=== PATIENT | female | born 1975 | race Caucasian/White ===

== ENCOUNTER 2023-05-03 15:50 | Emergency (ER) | payer BC, SELFPAY ==
[2023-05-03 15:54] VITALS: BP 182/92; PULSE 104; RESP 16; TEMP 37.1; O2SAT 96; BMI 35.7
--- NOTE | 2023-05-03 16:08 | US_ITS ---
The [address] [address] Patient Name: COLEEN ALVARADO MRN: [id number] date: 1975 Sex: F Assigned Patient Location: ER Current Patient Location: ER Accession/Order Number: [id number] Exam Date: 05/03/2023 16:30 Report Date: 05/03/2023 17:45 At the request of: LUBNA MANZANARES Procedure: US venous doppler LE BI Ultrasound venous duplex scan, bilateral lower extremities CLINICAL: Bilateral leg pain for 2 weeks. TECHNIQUE: Dominique-scale, color-flow, and Doppler examination of both legs was performed with and without provocative maneuvers. FINDINGS: Comparison: None. Sonographic examination of both lower extremity deep venous systems to include the common femoral veins, superficial femoral veins, and popliteal veins demonstrates normal compressibility, color-flow, phasic variation, and augmentation. The origins of the greater saphenous veins on both sides demonstrate normal compression, with normal color-flow at the origins of the proximal profunda femoris veins. There is normal compressibility of the posterior tibial, anterior tibial, and peroneal veins. Normal compression of the greater saphenous and small saphenous veins. US/US venous doppler LE BI IMPRESSION: 1. No sonographic evidence of deep venous thrombosis or superficial venous thrombus in either lower extremity. Electronically authenticated by: CAYETANO CAGE Date: 05/03/2023 17:45
--- NOTE | 2023-05-03 16:16 | ED.GENADUL1 ---
HPI - General Adult General Chief complaint: Extremity Problem, Nontraumatic Stated complaint: LOWER EXTREMITY PAIN Time Seen by Provider: 05/03/23 15:53 Source: patient Mode of arrival: walk-in Limitations: no limitations History of Present Illness HPI narrative: patient is a 47-year-old female who presents to the emergency department for the evaluation of bilateral lower extremity redness, pain. Patient states symptoms have been present for over a week, the redness and rash to the right lower extremity is improving, patient continues to have redness and rash to the left anterior tibia as well as pain in the bilateral anterior shins. She has no posterior calf pain. she denies fevers or vomiting. She is unsure of a possibility of . She takes hydrochlorothiazide at home but has not taken this medication. She states she has difficulty wearing shoes because it causes her legs to develop rashes and pain. She has not had any drainage, injury. No other medications taken prior to arrival. Related Data Home Medications Medication Instructions Recorded Confirmed atorvastatin 10 mg tablet 10 mg PO DAILY 05/03/23 05/03/23 citalopram 40 mg tablet 20 mg PO DAILY 05/03/23 05/03/23 dextroamphetamine-amphetamine 20 20 mg PO DAILY 05/03/23 05/03/23 mg tablet diltiazem HCl 120 mg 120 mg PO DAILY 05/03/23 05/03/23 capsule,extended release 24 hr hydrochlorothiazide 25 mg tablet 25 mg PO Q12H PRN edema 05/03/23 05/03/23 omeprazole 40 mg capsule,delayed 40 mg PO BID 05/03/23 05/03/23 release solriamfetol 150 mg tablet (Sunosi) 150 mg PO DAILY 05/03/23 05/03/23 valacyclovir 500 mg tablet 500 mg PO DAILY 05/03/23 05/03/23 Previous Rx's Medication Instructions Recorded clindamycin HCl 150 mg capsule 300 mg PO Q6H 10 days #80 caps 05/03/23 ketorolac 10 mg tablet 10 mg PO TID PRN pain #10 tabs 05/03/23 ondansetron 4 mg disintegrating 4 mg PO Q6H PRN nausea and 05/03/23 tablet vomiting #12 tabs tramadol 50 mg tablet 50 mg PO Q4H PRN pain #15 tabs 05/03/23 Allergies Allergy/AdvReac Type Severity Reaction Status Date / Time Sulfa (Sulfonamide AdvReac Mild Verified 05/03/23 16:02 Antibiotics) Review of Systems ROS Constitutional Denies: fever or chills Cardiovascular Denies: chest pain Respiratory Denies: shortness of breath Gastrointestinal Denies: nausea or vomiting Musculoskeletal Denies: back pain Integumentary/Breast Reports: rash, redness, skin pain, skin tenderness and skin swelling Neurological Denies: headache Allergic/Immunologic Denies: hives PFSH [facility] Social History Smoking 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 smoker Exam Narrative Exam Narrative: Gen.: Awake, alert, in no distress Head: Normocephalic, atraumatic ENT: Moist mucous membranes Respiratory: No respiratory distress Extremities: Moves extremities equally, bilateral lower extremities with nonpitting edema as well as erythematous petechial rash. Rash is minimal and scarce in the right lower extremity, anterior and medial aspect just proximal to the ankle. No circumferential redness or swelling of the lower extremities. Left anterior tibia with petechial erythematous rash, concentrated in the left mid anterior tibia with mild induration and warmth. No open wounds or drainage. Calves are soft and nontender Psych: Normal mood and affect Neuro: No focal neuro deficit Skin: Warm, dry, intact Constitutional Vital Signs, click to edit/add: Last Vital Signs Temp 98.8 F 05/03/23 15:54 Pulse 104 H 05/03/23 15:54 Resp 16 05/03/23 15:54 BP 182/92 H 05/03/23 15:54 Pulse Ox 96 05/03/23 15:54 O2 Del Method Room Air 05/03/23 15:54 Course Vital Signs Vital signs: Vital Signs Temperature 98.8 F 05/03/23 15:54 Pulse Rate 104 H 05/03/23 15:54 Respiratory Rate 16 05/03/23 15:54 Blood Pressure 182/92 H 05/03/23 15:54 Pulse Oximetry 96 05/03/23 15:54 Oxygen Delivery Method Room Air 05/03/23 15:54 Temperature 98.8 F 05/03/23 15:54 Pulse Rate 104 H 05/03/23 15:54 Respiratory Rate 16 05/03/23 15:54 Blood Pressure 182/92 H 05/03/23 15:54 Pulse Oximetry 96 05/03/23 15:54 Oxygen Delivery Method Room Air 05/03/23 15:54 Medical Decision Making MDM Narrative Medical decision making narrative: skin rash is consistent with possible vasculitis although the lab studies including inflammatory markers are unremarkable. bilateral lower extremity ultrasound with no evidence of deep vein thrombosis. The concentrated area of erythema and warmth of the left anterior tibia is concerning for cellulitis to the patient will be placed on anti-inflammatories in case she also has secondary vasculitis as well as clindamycin for antibiotic coverage is she is ALLERGIC to sulfa. She strongly encouraged to elevate the legs, she was given a short course of analgesics and nausea medication as needed. Patient has a history of hypertension and is prescribed hydrochlorothiazide although she admits she has not been taking it. She is strongly encouraged to take all of her regular medications, elevate the legs, finished antibiotics and follow-up with PCP, return to the Emergency Room if symptoms change or worsen. Medical Records Medical records reviewed: Yes I reviewed the patient's medical records Lab Data Lab results reviewed: Yes I reviewed the patient's lab results Labs: Lab Results 05/03/23 Range/Units 16:14 WBC 6.9 (4.0-11.0) 10^3/uL RBC 4.34 (4.20-5.40) 10^6/uL Hgb 14.4 (12.0-16.0) g/dL Hct 41.8 (36.0-48.0) % MCV 96.3 (81.0-99.0) fL MCH 33.2 (26.7-34.0) pg MCHC 34.4 (29.9-35.2) g/dL RDW 12.7 (11.0-15.0) % Plt Count 376 (150-450) 10^3/uL MPV 8.6 L (9.5-13.5) fL Neut % (Auto) 51.2 (43.0-75.0) % Lymph % (Auto) 33.5 (20.5-60.0) % [place] % (Auto) 9.7 (1.7-12.0) % Eos % (Auto) 3.0 (0.9-7.0) % Baso % (Auto) 2.2 H (0.2-2.0) % Neut # (Auto) 3.5 (1.4-6.5) 10^3/uL Lymph # (Auto) 2.3 (1.2-3.8) 10^3/uL [place] # (Auto) 0.7 (0.3-0.8) 10^3/uL Eos # (Auto) 0.2 (0.0-0.7) 10^3/uL Baso # (Auto) 0.2 H (0.0-0.1) 10^3/uL Abs Immat Gran (auto) 0.03 (0.00-0.03) 10^3/uL Imm/Tot Granulo (auto) 0.4 (0.0-0.5) % ESR 2 (<=20) mm/hr PT 10.9 (9.0-11.6) sec INR 1.03 Sodium 136 (136-145) mmol/L Potassium 3.3 L (3.5-5.1) mmol/L Chloride 107 (98-107) mmol/L Carbon Dioxide 31.3 (21.0-32.0) mmol/L Anion Gap 1.0 BUN 16.0 (7.0-18.0) mg/dL Creatinine 1.00 (0.55-1.02) mg/dL Est GFR ( Amer) >60 (>=60) Est GFR (Non-Af Amer) 60 (>=60) BUN/Creatinine Ratio 16.0 Glucose 104 (74-106) mg/dL Calcium 8.8 (8.5-10.1) mg/dL Total Bilirubin 0.4 (0.2-1.0) mg/dL AST 26 (15-37) U/L ALT 52 (14-59) U/L Alkaline Phosphatase 65 (46-116) U/L C-Reactive Protein <0.2 (<=1.0) mg/dL Total Protein 7.4 (6.4-8.2) g/dL Albumin 4.1 (3.4-5.0) g/dL Globulin 3.3 g/dL Albumin/Globulin Ratio 1.2 Serum HCG, Qual Negative (NEGATIVE) Imaging Data Venous US: Attestation: I have reviewed the pertinent imaging results. Radiologist's impression: no evidence of deep vein thrombosis in the bilateral lower extremities Discharge Plan Discharge Chief Complaint: Extremity Problem, Nontraumatic Clinical Impression: Cellulitis of left leg, Skin rash, Bilateral leg pain Patient Disposition: Home, Self-Care Time of Disposition Decision: 17:47 Condition: Good Prescriptions / Home Meds: New clindamycin HCl 150 mg capsule 300 mg PO Q6H 10 Days Qty: 80 0RF tramadol 50 mg tablet 50 mg PO Q4H PRN (Reason: pain) Qty: 15 0RF ketorolac 10 mg tablet 10 mg PO TID PRN (Reason: pain) Qty: 10 0RF ondansetron 4 mg tablet,disintegrating 4 mg PO Q6H PRN (Reason: nausea and vomiting) Qty: 12 0RF No Action atorvastatin 10 mg tablet 10 mg PO DAILY citalopram 40 mg tablet 20 mg PO DAILY dextroamphetamine-amphetamine 20 mg tablet 20 mg PO DAILY diltiazem HCl 120 mg capsule,extended release 24hr 120 mg PO DAILY hydrochlorothiazide 25 mg tablet 25 mg PO Q12H PRN (Reason: edema) omeprazole 40 mg capsule,delayed release(DR/EC) 40 mg PO BID Sunosi 150 mg tablet 150 mg PO DAILY valacyclovir 500 mg tablet 500 mg PO DAILY Instructions: Cellulitis (ED), Leg Pain (ED) Stand Alone Forms: Portal Instructions Referrals: DOMITILA HUYNH [Primary Care Provider] - 1 week
[2023-05-03 16:24] LABS: Basophils Absolute Auto 0.2 10^3/uL (0.0-0.1); Basophils Percent Auto 2.2 % (0.2-2.0); Eosinophils Absolute Auto 0.2 10^3/uL (0.0-0.7); Hematocrit 41.8 % (36.0-48.0); Hemoglobin 14.4 g/dL (12.0-16.0); Immature Granulocytes Abs Auto 0.03 10^3/uL (0.00-0.03); Immature Granulocytes Pct Auto 0.4 % (0.0-0.5); Lymphocytes Absolute Auto 2.3 10^3/uL (1.2-3.8); Lymphocytes Percent Auto 33.5 % (20.5-60.0); Mean Corpuscular HGB Conc 34.4 g/dL (29.9-35.2); Mean Corpuscular Hemoglobin 33.2 pg (26.7-34.0); Mean Corpuscular Volume 96.3 fL (81.0-99.0); Mean Platelet Volume 8.6 fL (9.5-13.5); Monocytes Absolute Auto 0.7 10^3/uL (0.3-0.8); Monocytes Percent Auto 9.7 % (1.7-12.0); Neutrophils Absolute Auto 3.5 10^3/uL (1.4-6.5); Neutrophils Percent Auto 51.2 % (43.0-75.0); Platelet Count 376 10^3/uL (150-450); Red Blood Count 4.34 10^6/uL (4.20-5.40); Red Cell Distribution Width 12.7 % (11.0-15.0); White Blood Count 6.9 10^3/uL (4.0-11.0)
[2023-05-03 16:35] LABS: HCG Qualitative NEGATIVE (NEGATIVE)
[2023-05-03 16:37] LABS: Alanine Aminotransferase 52 U/L (14-59); Albumin Globulin Ratio 1.2; Albumin Level 4.1 g/dL (3.4-5.0); Alkaline Phosphatase 65 U/L (46-116); Aspartate Amino Transferase 26 U/L (15-37); Bilirubin Total 0.4 mg/dL (0.2-1.0); C Reactive Protein <0.2 mg/dL (<=1.0); Calcium 8.8 mg/dL (8.5-10.1); Carbon Dioxide 31.3 mmol/L (21.0-32.0); Chloride 107 mmol/L (98-107); Estimated GFR (African America >60 (>=60); Estimated GFR (Non-African Ame 60 (>=60); Globulin 3.3 g/dL; Glucose 104 mg/dL (74-106); INR 1.03; Potassium 3.3 mmol/L (3.5-5.1); Prothrombin Time 10.9 sec (9.0-11.6); Sodium 136 mmol/L (136-145); Total Protein 7.4 g/dL (6.4-8.2)
[2023-05-03 16:40] LABS: Erythrocyte Sedimentation Rate 2 mm/hr (<=20)
[2023-05-03] MEDS: KETOROLAC TROMETHAMINE 30 MG/ML VIAL IVP (16:43)
== END 2023-05-03 17:54 | disposition home or self-care (01) ==
PROVIDERS: Physician Assistant; Emergency Provider Emergency Medicine Emergency Medical Services; PCP Internal Medicine
DX: L03.116 Cellulitis of left lower limb (principal); R21 Rash and other nonspecific skin eruption; M79.605 Pain in left leg; M79.604 Pain in right leg; Z79.899 Other long term (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 therapy
CPT/HCPCS: 36415; 80053; 84703; 85025; 85610; 85652; 86140; 93970; 96374; 99284

== ENCOUNTER 2023-07-04 02:31 | Emergency (ER) | payer BC, SELFPAY ==
[2023-07-04 02:35] VITALS: BP 132/82; PULSE 102; RESP 18; TEMP 36.8; O2SAT 96; BMI 36.1
--- NOTE | 2023-07-04 02:58 | ED.SKABFB1 ---
HPI - Skin/Abscess/Foreign Bdy General Chief complaint: Skin/Abscess/Foreign Body Stated complaint: LT LEG REDNESS Time Seen by Provider: 07/04/23 02:48 Source: patient Mode of arrival: walk-in Limitations: no limitations History of Present Illness HPI narrative: This 48-year-old female presents for evaluation of increasing red, swelling and pain at the medial aspect of her left lower leg. She is currently on Keflex after developing some redness in her lower leg earlier this week. She called her doctor who called in a perception for Keflex for her. She was not seen by her family physician. She has not had any fevers or chills. She states she woke up this morning with increasing redness and pain in the medial aspect of her lower leg. She also recently had cellulitis of the same leg and also had cellulitis of the right hand. She has had 3 bouts of cellulitis this past calendar year. She is not diabetic. She does have extremely dry skin and eczema on her feet. She states that the last time she had this she was on clindamycin which cleared it up quickly. She has no calf pain or swelling, denies any chest pain or shortness of breath. She took a tramadol prior to arrival and is now nauseated. Related Data Home Medications Medication Instructions Recorded Confirmed atorvastatin 10 mg tablet 10 mg PO DAILY 05/03/23 05/03/23 citalopram 40 mg tablet 20 mg PO DAILY 05/03/23 05/03/23 dextroamphetamine-amphetamine 20 20 mg PO DAILY 05/03/23 05/03/23 mg tablet diltiazem HCl 120 mg 120 mg PO DAILY 05/03/23 05/03/23 capsule,extended release 24 hr hydrochlorothiazide 25 mg tablet 25 mg PO Q12H PRN edema 05/03/23 05/03/23 omeprazole 40 mg capsule,delayed 40 mg PO BID 05/03/23 05/03/23 release solriamfetol 150 mg tablet (Sunosi) 150 mg PO DAILY 05/03/23 05/03/23 valacyclovir 500 mg tablet 500 mg PO DAILY 05/03/23 05/03/23 Previous Rx's Medication Instructions Recorded clindamycin HCl 150 mg capsule 300 mg PO Q6H 10 days #80 caps 05/03/23 ketorolac 10 mg tablet 10 mg PO TID PRN pain #10 tabs 05/03/23 ondansetron 4 mg disintegrating 4 mg PO Q6H PRN nausea and 05/03/23 tablet vomiting #12 tabs tramadol 50 mg tablet 50 mg PO Q4H PRN pain #15 tabs 05/03/23 Allergies Allergy/AdvReac Type Severity Reaction Status Date / Time Sulfa (Sulfonamide AdvReac Mild Verified 05/03/23 16:02 Antibiotics) Review of Systems ROS Status of ROS 10 or more systems reviewed and unremarkable except as noted in history and below PFSH PFS Social History Smoking 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 smoker Exam Narrative Exam Narrative: Nurses note and vital signs reviewed and patient is not hypoxic.She is moderately tachycardic with a pulse of 102 General: The patient appears well and in no apparent distress. Patient is resting comfortably on cart. Skin: There is an approximately 10 x 4 cm area of erythema and tenderness on the left medial lower leg. This does not include the ankle or foot. Head: Normocephalic, atraumatic Eye: Normal conjunctiva, no drainage, EOMI. PERRL Ears, Nose, Mouth, and Throat: oral mucosa is moist. Nares patent. Cardiovascular: Regular Rate and Rhythm Respiratory: Patient is in no distress, no accessory muscle use, lungs are clear to auscultation, no wheezing, rales or rhonchi Back: non-tender, no CVA tenderness bilaterally to percussion. GI: Normal bowel sounds, no tenderness to palpation, no masses appreciated. No rebound, guarding, or rigidity noted. Musculoskeletal:Left lower extremity cellulitis as described above, there is no calf swelling or tenderness, calf sizes are compared [id number] and are equal. Dorsalis pedis pulses are brisk and equal bilaterally. Patient has dried skin on all of her toes and small patches of eczema on the dorsal aspect of her foot. Neurological: A&O x4, normal speech Psychiatric: Cooperative Constitutional Vital Signs, click to edit/add: Last Vital Signs Temp 98.3 F 07/04/23 02:35 Pulse 102 H 07/04/23 02:35 Resp 18 07/04/23 02:35 BP 132/82 07/04/23 02:35 Pulse Ox 96 07/04/23 02:35 O2 Del Method Room Air 11/02/23 02:35 Course Vital Signs Vital signs: Vital Signs Temperature 98.3 F 07/04/23 02:35 Pulse Rate 102 H 07/04/23 02:35 Respiratory Rate 18 07/04/23 02:35 Blood Pressure 132/82 07/04/23 02:35 Pulse Oximetry 96 07/04/23 02:35 Oxygen Delivery Method Room Air 07/04/23 02:35 Temperature 98.3 F 07/04/23 02:35 Pulse Rate 102 H 07/04/23 02:35 Respiratory Rate 18 07/04/23 02:35 Blood Pressure 132/82 07/04/23 02:35 Pulse Oximetry 96 07/04/23 02:35 Oxygen Delivery Method Room Air 07/04/23 02:35 MDM - Skin/Abscess/Foreign Bdy MDM Narrative Medical decision making narrative: This 48-year-old female presents for evaluation of redness pain and swelling to the left lower extremity. She is currently on Keflex for cellulitis. This is the 3rd bout of cellulitis she has had this year. She is not having any fevers or chills. She has no body aches. She does have an approximately 4 x 10 cm area of redness and tenderness to the left medial lower leg. Not circumferential and does not involve the ankle or foot. She has been on clindamycin in the past with clinical improvement. She states she was having pain prior to arrival and took a tramadol which her nauseated. On arrival her vital signs are stable but she has not been tachycardic. An IV was placed and she is medicated with IV fluids, Toradol and Zofran and clindamycin. Routine labs are reviewed. She has a normal white count and hemoglobin. She has normal lactic acid and CRP. Electrolytes were normal with the exception of a mildly elevated glucose and a low potassium at 2.7 area she was given a dose of oral potassium. She states that she is supposed to take potassium supplementation but does not because it nauseates her. I agreed to give her a prescription for Zofran for nausea if she would take her potassium supplement and increase her oral intake of potassium containing foods. She is in agreement with this plan. She'll be discharged home with a note for work today and a prescription for Zofran, potassium and clindamycin to use for the next 10 days. Lab Data Labs: Lab Results 07/04/23 Range/Units 02:40 WBC 8.5 (4.0-11.0) 10^3/uL RBC 4.14 L (4.20-5.40) 10^6/uL Hgb 13.7 (12.0-16.0) g/dL Hct 39.6 (36.0-48.0) % MCV 95.7 (81.0-99.0) fL MCH 33.1 (26.7-34.0) pg MCHC 34.6 (29.9-35.2) g/dL RDW 12.8 (11.0-15.0) % Plt Count 350 (150-450) 10^3/uL MPV 9.1 L (9.5-13.5) fL Neut % (Auto) 58.4 (43.0-75.0) % Lymph % (Auto) 29.6 (20.5-60.0) % [place] % (Auto) 7.0 (1.7-12.0) % Eos % (Auto) 3.3 (0.9-7.0) % Baso % (Auto) 1.1 (0.2-2.0) % Neut # (Auto) 5.0 (1.4-6.5) 10^3/uL Lymph # (Auto) 2.5 (1.2-3.8) 10^3/uL [place] # (Auto) 0.6 (0.3-0.8) 10^3/uL Eos # (Auto) 0.3 (0.0-0.7) 10^3/uL Baso # (Auto) 0.1 (0.0-0.1) 10^3/uL Abs Immat Gran (auto) 0.05 H (0.00-0.03) 10^3/uL Imm/Tot Granulo (auto) 0.6 H (0.0-0.5) % ESR 2 (<=20) mm/hr Sodium 133 L (136-145) mmol/L Potassium 2.7 L* (3.5-5.1) mmol/L Chloride 98 (98-107) mmol/L Carbon Dioxide 32.0 (21.0-32.0) mmol/L Anion Gap 5.7 BUN 15.0 (7.0-18.0) mg/dL Creatinine 0.97 (0.55-1.02) mg/dL Est GFR ( Amer) >60 (>=60) Est GFR (Non-Af Amer) >60 (>=60) BUN/Creatinine Ratio 15.5 Glucose 162 H (74-106) mg/dL Lactate 0.9 (0.4-2.0) mmol/L Calcium 8.4 L (8.5-10.1) mg/dL Total Bilirubin 0.5 (0.2-1.0) mg/dL AST 21 (15-37) U/L ALT 58 (14-59) U/L Alkaline Phosphatase 50 (46-116) U/L C-Reactive Protein <1.0 (<=1.0) mg/dL Total Protein 6.9 (6.4-8.2) g/dL Albumin 3.7 (3.4-5.0) g/dL Globulin 3.2 g/dL Albumin/Globulin Ratio 1.2 Discharge Plan Discharge Chief Complaint: Skin/Abscess/Foreign Body Clinical Impression: Cellulitis of left leg, Hypokalemia Patient Disposition: Home, Self-Care Time of Disposition Decision: 04:16 Condition: Good Prescriptions / Home Meds: No Action atorvastatin 10 mg tablet 10 mg PO DAILY citalopram 40 mg tablet 20 mg PO DAILY dextroamphetamine-amphetamine 20 mg tablet 20 mg PO DAILY diltiazem HCl 120 mg capsule,extended release 24hr 120 mg PO DAILY hydrochlorothiazide 25 mg tablet 25 mg PO Q12H PRN (Reason: edema) omeprazole 40 mg capsule,delayed release(DR/EC) 40 mg PO BID Sunosi 150 mg tablet 150 mg PO DAILY valacyclovir 500 mg tablet 500 mg PO DAILY clindamycin HCl 150 mg capsule 300 mg PO Q6H 10 Days Qty: 80 0RF tramadol 50 mg tablet 50 mg PO Q4H PRN (Reason: pain) Qty: 15 0RF ketorolac 10 mg tablet 10 mg PO TID PRN (Reason: pain) Qty: 10 0RF ondansetron 4 mg tablet,disintegrating 4 mg PO Q6H PRN (Reason: nausea and vomiting) Qty: 12 0RF Instructions: Cellulitis (ED), Potassium Content of Foods List (ED), Hypokalemia (ED) Stand Alone Forms: Portal Instructions Referrals: DOMITILA HUYNH [Primary Care Provider] - 1 week
--- NOTE | 2023-07-04 02:59 | PC.NURSE ---
patient has hx of cellulitis. diagnosed with cellulitis on saturday over the phone from physician who called in keflex.patient has taken 3 doses but states it is not getting better. states she does not believe cellulitis has spread but states it is redder and tender to touch. left inside calf is reddened, hot to touch and tender. not especially swollen at this time. patient had left over tramadol from previous cellulitis and took one prior to coming to ED. patient drove herself here. RN educated on use of tramadol. able to ambulate unassisted with limp. afebrile at this time
[2023-07-04 03:15] LABS: Lactate/Lactic Acid 0.9 mmol/L (0.4-2.0)
[2023-07-04] MEDS: KETOROLAC TROMETHAMINE 30 MG/ML VIAL IVP (03:15)
[2023-07-04] MEDS: 0.9 % SODIUM CHLORIDE 1,000 ML 1000 ML IV (03:17)
[2023-07-04] MEDS: ONDANSETRON PF 4 MG/2 ML VIAL IV (03:18)
[2023-07-04 03:22] LABS: Basophils Absolute Auto 0.1 10^3/uL (0.0-0.1); Basophils Percent Auto 1.1 % (0.2-2.0); Eosinophils Absolute Auto 0.3 10^3/uL (0.0-0.7); Eosinophils Percent Auto 3.3 % (0.9-7.0); Hematocrit 39.6 % (36.0-48.0); Hemoglobin 13.7 g/dL (12.0-16.0); Immature Granulocytes Abs Auto 0.05 10^3/uL (0.00-0.03); Immature Granulocytes Pct Auto 0.6 % (0.0-0.5); Lymphocytes Absolute Auto 2.5 10^3/uL (1.2-3.8); Lymphocytes Percent Auto 29.6 % (20.5-60.0); Mean Corpuscular HGB Conc 34.6 g/dL (29.9-35.2); Mean Corpuscular Hemoglobin 33.1 pg (26.7-34.0); Mean Corpuscular Volume 95.7 fL (81.0-99.0); Mean Platelet Volume 9.1 fL (9.5-13.5); Monocytes Absolute Auto 0.6 10^3/uL (0.3-0.8); Neutrophils Percent Auto 58.4 % (43.0-75.0); Platelet Count 350 10^3/uL (150-450); Red Blood Count 4.14 10^6/uL (4.20-5.40); Red Cell Distribution Width 12.8 % (11.0-15.0); White Blood Count 8.5 10^3/uL (4.0-11.0)
[2023-07-04 03:24] LABS: Alanine Aminotransferase 58 U/L (14-59); Albumin Globulin Ratio 1.2; Albumin Level 3.7 g/dL (3.4-5.0); Alkaline Phosphatase 50 U/L (46-116); Anion Gap 5.7; Aspartate Amino Transferase 21 U/L (15-37); BUN Creatinine Ratio 15.5; Bilirubin Total 0.5 mg/dL (0.2-1.0); Calcium 8.4 mg/dL (8.5-10.1); Chloride 98 mmol/L (98-107); Estimated GFR (African America >60 (>=60); Estimated GFR (Non-African Ame >60 (>=60); Globulin 3.2 g/dL; Glucose 162 mg/dL (74-106); Sodium 133 mmol/L (136-145); Total Protein 6.9 g/dL (6.4-8.2)
[2023-07-04 03:27] LABS: C Reactive Protein <1.0 mg/dL (<=1.0); Potassium 2.7 mmol/L (3.5-5.1)
[2023-07-04 03:32] LABS: Erythrocyte Sedimentation Rate 2 mm/hr (<=20)
[2023-07-04] MEDS: POTASSIUM CHLORIDE 10 MEQ ER TABLET 40 MEQ PO (04:26)
[2023-07-04 04:42] VITALS: PULSE 85; RESP 16; O2SAT 96
== END 2023-07-04 04:45 | disposition home or self-care (01) ==
PROVIDERS: Emergency Provider Emergency Medicine; PCP Internal Medicine
DX: L03.116 Cellulitis of left lower limb (principal); E87.6 Hypokalemia; Z79.899 Other long term (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 therapy
CPT/HCPCS: 36415; 80053; 83605; 85025; 85652; 86140; 96365; 96375; 99284

== ENCOUNTER 2024-01-09 15:43 | Emergency (ER) | payer BC, SELFPAY ==
[2024-01-09 16:08] VITALS: BP 148/85; PULSE 90; TEMP 37.3; O2SAT 97; BMI 37.1
--- NOTE | 2024-01-09 16:26 | CT_ITS ---
The [address] [address] Patient Name: OCLEEN ALVARADO MRN: [id number] date: 1975 Sex: F Assigned Patient Location: ER Current Patient Location: ER Accession/Order Number: [id number] Exam Date: 01/09/2024 17:00 Report Date: 01/09/2024 18:32 At the request of: LUBNA MANZANARES Procedure: CT abdomen pelvis w con EXAM: CT abdomen pelvis w con HISTORY: right lower quad pain COMPARISON: None. TECHNIQUE: Multiple axial images of the abdomen and pelvis are obtained following the administration of IV contrast material. Coronal and sagittal reformatted sequences are submitted for review. FINDINGS: The lung bases appear clear. The heart size is normal. Patient is post cholecystectomy. Surgical clips are seen in the gallbladder fossa. The liver, spleen, pancreas and bilateral adrenal glands appear unremarkable. Bilateral kidneys demonstrate normal size, morphology and contrast enhancement. There is no evidence for hydronephrosis bilaterally. The urinary bladder is nondistended but otherwise appears unremarkable. Nonobstructive bowel pattern is seen. Normal-appearing appendix is visualized. No significant bowel wall thickening is seen. No significant free fluid or abnormal collection is seen in the abdomen and pelvis. The vascular structures demonstrate normal caliber and contrast enhancement. The abdominal wall and visualized soft tissues appear unremarkable. No acute or destructive osseous lesion is seen. CT/CT abdomen pelvis w con IMPRESSION: No acute abnormality. Normal-appearing appendix is visualized. Prior cholecystectomy. Electronically authenticated by: FREDA FRANCOIS Date: 01/09/2024 18:32
--- NOTE | 2024-01-09 16:28 | ED_ITS ---
HPI HPI - General Adult General Chief complaint: Abdominal Pain Stated complaint: Abdominal Pain Time Seen by Provider: 01/09/24 15:43 Source: patient Mode of arrival: walk-in Limitations: no limitations History of Present Illness HPI narrative: Patient is a 48-year-old female who presents to the emergency department for low abdominal pain. She states she has never had menstrual cramps previously in her life, she states she started her menstrual cycle this afternoon and developed severe cramping and pain in the suprapubic and right lower quadrant of the abdomen. She states the pain goes across the pelvis bilaterally. She has had no fevers, chills, nausea, vomiting, flank or back pain. No urinary symptoms. She has had a previous but no other abdominal surgeries. No medications taken prior to arrival. She states the vaginal bleeding is very Light, no clots. Related Data Home Medications ?Medication ?Instructions ?Recorded ?Confirmed atorvastatin 10 mg tablet 10 mg PO DAILY 05/03/23 01/09/24 citalopram 40 mg tablet 20 mg PO DAILY 05/03/23 01/09/24 dextroamphetamine-amphetamine 20 20 mg PO DAILY 05/03/23 01/09/24 mg tablet diltiazem HCl 120 mg 120 mg PO DAILY 05/03/23 01/09/24 capsule,extended release 24 hr hydrochlorothiazide 25 mg tablet 25 mg PO Q12H PRN edema 05/03/23 01/09/24 omeprazole 40 mg capsule,delayed 40 mg PO BID 05/03/23 01/09/24 release solriamfetol 150 mg tablet (Sunosi) 150 mg PO DAILY 05/03/23 01/09/24 valacyclovir 500 mg tablet 500 mg PO DAILY 05/03/23 01/09/24 Previous Rx's ?Medication ?Instructions ?Recorded dicyclomine 20 mg tablet 20 mg PO QID PRN abdominal pain 01/09/24 #12 tabs hydrocodone 5 mg-acetaminophen 325 1 tab PO Q6H PRN pain #8 tabs 01/09/24 mg tablet ketorolac 10 mg tablet 10 mg PO TID PRN pain #10 tabs 01/09/24 ondansetron 4 mg disintegrating 4 mg PO Q6H PRN nausea and 01/09/24 tablet vomiting #12 tabs Allergies Allergy/AdvReac Type Severity Reaction Status Date / Time Sulfa (Sulfonamide AdvReac Mild Verified 01/09/24 16:06 Antibiotics) Opioid HPI Opioid Management Most Recent Opioid Data: Last Pain Scale 7 01/09/24 19:48 Last ED Pain Assessment 01/09/24 17:32 Last MAR Pain Assessment 01/09/24 19:48 Review of Systems ROS Constitutional Denies: fever or chills Ears, nose, mouth, and throat Denies: throat pain or nasal congestion Respiratory Denies: shortness of breath Gastrointestinal Reports: abdominal pain; Denies: nausea, vomiting or diarrhea Musculoskeletal Denies: back pain Integumentary/Breast Denies: rash Neurological Denies: headache Hematologic/Lymphatic Denies: easy bruising or easy bleeding PFSH [facility] Social History Smoking 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 smoker Exam Narrative Exam Narrative: Gen.: Awake, alert, in no distress Head: Normocephalic, atraumatic ENT: Moist mucous membranes Respiratory: No respiratory distress, lungs clear bilaterally Cardio: Regular rate and rhythm Gastrointestinal: Abdomen is soft, Tender to palpation in the suprapubic abdomen with voluntary guarding of the right lower quadrant, Suprapubic abdomen and left lower quadrant. No pain out of proportion on exam Extremities: Moves extremities equally Psych: Normal mood and affect Neuro: No focal neuro deficit Skin: Warm, dry, intact Constitutional Vital Signs, click to edit/add: Last Vital Signs Temp 99.1 F 01/09/24 16:08 Pulse 90 01/09/24 16:08 Resp 18 01/09/24 19:47 BP 127/74 01/09/24 19:47 Pulse Ox 95 01/09/24 19:47 O2 Del Method Room Air 01/09/24 19:47 Course Vital Signs Vital signs: Vital Signs Temperature 99.1 F 01/09/24 16:08 Pulse Rate 90 01/09/24 16:08 Respiratory Rate 14 01/09/24 16:08 Blood Pressure 148/85 H 01/09/24 16:08 Pulse Oximetry 97 01/09/24 16:08 Oxygen Delivery Method Room Air 01/09/24 16:08 Temperature 99.1 F 01/09/24 16:08 Pulse Rate 90 01/09/24 16:08 Respiratory Rate 18 01/09/24 19:47 Blood Pressure 127/74 01/09/24 19:47 Pulse Oximetry 95 01/09/24 19:47 Oxygen Delivery Method Room Air 01/09/24 19:47 Medical Decision Making MDM Narrative Medical decision making narrative: Lab studies within normal limits, urine specimen is unremarkable and CT of the abdomen and pelvis with no evidence of acute process. Patient with no Pain out of proportion on exam. Ultrasound shows no evidence of acute process although the ovaries were not visualized due to overlying bowel gas. Additional pain medication was given for the patient with Levsin as a suspect bowel spasm may be part of her pain. She is discharged home with a short course of analgesics, Levsin, Toradol, Zofran. Follow-up with PCP and return to the ER if symptoms change or worsen Medical Records Medical records reviewed: Yes I reviewed the patient's medical records Lab Data Lab results reviewed: Yes I reviewed the patient's lab results Labs: Lab Results 01/09/24 01/09/24 Range/Units 16:35 18:45 WBC 10.7 (4.0-11.0) 10^3/uL RBC 4.12 L (4.20-5.40) 10^6/uL Hgb 13.5 (12.0-16.0) g/dL Hct 39.2 (36.0-48.0) % MCV 95.1 (81.0-99.0) fL MCH 32.8 (26.7-34.0) pg MCHC 34.4 (29.9-35.2) g/dL RDW 13.2 (11.0-15.0) % Plt Count 379 (150-450) 10^3/uL MPV 8.7 L (9.5-13.5) fL Neut % (Auto) 67.5 (43.0-75.0) % Lymph % (Auto) 22.9 (20.5-60.0) % [place] % (Auto) 5.1 (1.7-12.0) % Eos % (Auto) 3.5 (0.9-7.0) % Baso % (Auto) 0.7 (0.2-2.0) % Neut # (Auto) 7.2 H (1.4-6.5) 10^3/uL Lymph # (Auto) 2.5 (1.2-3.8) 10^3/uL [place] # (Auto) 0.5 (0.3-0.8) 10^3/uL Eos # (Auto) 0.4 (0.0-0.7) 10^3/uL Baso # (Auto) 0.1 (0.0-0.1) 10^3/uL Abs Immat Gran (auto) 0.03 (0.00-0.03) 10^3/uL Imm/Tot Granulo (auto) 0.3 (0.0-0.5) % Sodium 142 (136-145) mmol/L Potassium 2.8 L* (3.5-5.1) mmol/L Chloride 102 (98-107) mmol/L Carbon Dioxide 31.9 (21.0-32.0) mmol/L Anion Gap 10.9 BUN 14.0 (7.0-18.0) mg/dL Creatinine 0.85 (0.55-1.02) mg/dL Est GFR ( Amer) >60 (>=60) Est GFR (Non-Af Amer) >60 (>=60) BUN/Creatinine Ratio 16.5 Glucose 117 H (74-106) mg/dL Lactate 1.0 (0.4-2.0) mmol/L Calcium 9.1 (8.5-10.1) mg/dL Total Bilirubin 0.5 (0.2-1.0) mg/dL AST 24 (15-37) U/L ALT 47 (14-59) U/L Alkaline Phosphatase 42 L (46-116) U/L Total Protein 6.9 (6.4-8.2) g/dL Albumin 3.8 (3.4-5.0) g/dL Globulin 3.1 g/dL Albumin/Globulin Ratio 1.2 Serum HCG, Qual Negative (NEGATIVE) Urine Color Yellow (YELLOW) Urine Clarity Clear (CLEAR) Urine pH 5.5 (5.0-9.0) Ur Specific [place] <=1.005 A (1.005-1.025) Urine Protein Negative (NEG/TRACE) mg/dL Urine Glucose (UA) Negative (NEGATIVE) mg/dL Urine Ketones Negative (NEGATIVE) mg/dL Urine Occult Blood Negative (NEGATIVE) Urine Nitrite Negative (NEGATIVE) Urine Bilirubin Negative (NEGATIVE) Urine Urobilinogen 0.2 (0.2-1.0) EU/dL Ur Leukocyte Esterase Negative (NEGATIVE) Imaging Data CT scan - abdomen: Attestation: I have reviewed the pertinent imaging results. Radiologist's impression: ITS Impressions Abdomen/Pelvis CT 01/09/24 16:26 IMPRESSION: No acute abnormality. Normal-appearing appendix is visualized. Prior cholecystectomy. Electronically authenticated by: FREDA FRANCOIS Date: 01/09/2024 18:32 Transvaginal US 01/09/24 18:35 IMPRESSION: Nonvisualization of the bilateral ovaries due to overlying bowel gas. Unremarkable appearance of the uterus. Electronically authenticated by: LELO HAGER Date: 01/09/2024 20:14 Discharge Plan Discharge Stand Alone Forms: Portal Instructions Chief Complaint: Abdominal Pain Clinical Impression: Abdominal pain Patient Disposition: Home, Self-Care Time of Disposition Decision: 20:29 Condition: Good Prescriptions / Home Meds: New hydrocodone-acetaminophen 5-325 mg tablet 1 tab PO Q6H PRN (Reason: pain) Qty: 8 0RF ketorolac 10 mg tablet 10 mg PO TID PRN (Reason: pain) Qty: 10 0RF dicyclomine 20 mg tablet 20 mg PO QID PRN (Reason: abdominal pain) Qty: 12 0RF ondansetron 4 mg tablet,disintegrating 4 mg PO Q6H PRN (Reason: nausea and vomiting) Qty: 12 0RF No Action atorvastatin 10 mg tablet 10 mg PO DAILY citalopram 40 mg tablet 20 mg PO DAILY dextroamphetamine-amphetamine 20 mg tablet 20 mg PO DAILY diltiazem HCl 120 mg capsule,extended release 24hr 120 mg PO DAILY hydrochlorothiazide 25 mg tablet 25 mg PO Q12H PRN (Reason: edema) omeprazole 40 mg capsule,delayed release(DR/EC) 40 mg PO BID Sunosi 150 mg tablet 150 mg PO DAILY valacyclovir 500 mg tablet 500 mg PO DAILY Print Language: Khmer Instructions: Acute Abdominal Pain (ED) Referrals: DOMITILA HUYNH [Primary Care Provider] - 1 week Discharge Date/Time: 01/09/24 21:02
--- NOTE | 2024-01-09 16:42 | PC.NURSE ---
Patient reports having lower abdominal pain, reports starting period today, but reports period and pain is not normal for her cycle.
[2024-01-09 16:47] LABS: Basophils Absolute Auto 0.1 10^3/uL (0.0-0.1); Basophils Percent Auto 0.7 % (0.2-2.0); Eosinophils Absolute Auto 0.4 10^3/uL (0.0-0.7); Eosinophils Percent Auto 3.5 % (0.9-7.0); Hematocrit 39.2 % (36.0-48.0); Hemoglobin 13.5 g/dL (12.0-16.0); Immature Granulocytes Abs Auto 0.03 10^3/uL (0.00-0.03); Immature Granulocytes Pct Auto 0.3 % (0.0-0.5); Lymphocytes Absolute Auto 2.5 10^3/uL (1.2-3.8); Lymphocytes Percent Auto 22.9 % (20.5-60.0); Mean Corpuscular HGB Conc 34.4 g/dL (29.9-35.2); Mean Corpuscular Hemoglobin 32.8 pg (26.7-34.0); Mean Corpuscular Volume 95.1 fL (81.0-99.0); Mean Platelet Volume 8.7 fL (9.5-13.5); Monocytes Absolute Auto 0.5 10^3/uL (0.3-0.8); Monocytes Percent Auto 5.1 % (1.7-12.0); Neutrophils Absolute Auto 7.2 10^3/uL (1.4-6.5); Neutrophils Percent Auto 67.5 % (43.0-75.0); Platelet Count 379 10^3/uL (150-450); Red Blood Count 4.12 10^6/uL (4.20-5.40); Red Cell Distribution Width 13.2 % (11.0-15.0); White Blood Count 10.7 10^3/uL (4.0-11.0)
[2024-01-09] MEDS: 0.9 % SODIUM CHLORIDE 1,000 ML 999 ML IV (16:52)
[2024-01-09] MEDS: HYDROMORPHONE HCL 1 MG/ML CARTRIDGE 0.5 MG IVP ×2 (16:52→19:48)
[2024-01-09] MEDS: KETOROLAC TROMETHAMINE 30 MG/ML VIAL IVP (16:52)
[2024-01-09] MEDS: ONDANSETRON PF 4 MG/2 ML VIAL IV (16:53)
[2024-01-09 17:00] LABS: HCG Qualitative NEGATIVE (NEGATIVE)
[2024-01-09 17:04] LABS: Alanine Aminotransferase 47 U/L (14-59); Albumin Globulin Ratio 1.2; Albumin Level 3.8 g/dL (3.4-5.0); Alkaline Phosphatase 42 U/L (46-116); Anion Gap 10.9; Aspartate Amino Transferase 24 U/L (15-37); BUN Creatinine Ratio 16.5; Bilirubin Total 0.5 mg/dL (0.2-1.0); Calcium 9.1 mg/dL (8.5-10.1); Carbon Dioxide 31.9 mmol/L (21.0-32.0); Chloride 102 mmol/L (98-107); Estimated GFR (African America >60 (>=60); Estimated GFR (Non-African Ame >60 (>=60); Globulin 3.1 g/dL; Glucose 117 mg/dL (74-106); Sodium 142 mmol/L (136-145); Total Protein 6.9 g/dL (6.4-8.2)
[2024-01-09 17:05] LABS: Potassium 2.8 mmol/L (3.5-5.1)
--- NOTE | 2024-01-09 18:35 | US_ITS ---
The [address] [address] Patient Name: COLEEN ALVARADO MRN: [id number] date: 1975 Sex: F Assigned Patient Location: ER Current Patient Location: ER Accession/Order Number: [id number] Exam Date: 01/09/2024 18:55 Report Date: 01/09/2024 20:14 At the request of: LUBNA MANZANARES Procedure: US pelvis transvaginal EXAM: US pelvis transvaginal HISTORY: EXAM: US pelvis transvaginal CLINICAL HISTORY: severe pelvic pain, r/o ovarian torsion COMPARISON: CT abdomen and pelvis 01/09/2024 TECHNIQUE: Transvaginal real-time grayscale and color Doppler imaging with pulsed duplex sonography was performed. FINDINGS: UTERUS: Measures 8 centimeters in length and is anteverted. A nabothian cyst is noted. ENDOMETRIUM: Not thickened. Measures 0.22 centimeters thickness OVARIES: Not visualized due to overlying bowel gas. MISCELLANEOUS: No significant free fluid. US/US pelvis transvaginal IMPRESSION: Nonvisualization of the bilateral ovaries due to overlying bowel gas. Unremarkable appearance of the uterus. Electronically authenticated by: LELO HAGER Date: 01/09/2024 20:14
[2024-01-09] MEDS: POTASSIUM CHLORIDE 10 MEQ ER TABLET 40 MEQ PO (18:49)
[2024-01-09 19:47] VITALS: BP 127/74; O2SAT 95
[2024-01-09 19:55] LABS: Bilirubin Urine NEGATIVE (NEGATIVE); Blood Urine NEGATIVE (NEGATIVE); Clarity Urine CLEAR (CLEAR); Color Urine YELLOW (YELLOW); Glucose Urine UA NEGATIVE (NEGATIVE); Ketones Urine NEGATIVE (NEGATIVE); Leukocyte Esterase Urine NEGATIVE (NEGATIVE); Nitrite Urine NEGATIVE (NEGATIVE); Protein Urine NEGATIVE (NEG/TRACE); Specific Gravity Urine <=1.005 (1.005-1.025); Urobilinogen Urine 0.2 EU/dL (0.2-1.0); pH Urine 5.5 (5.0-9.0)
[2024-01-09 19:56] LABS: Urine Microscopic Indicated NO
[2024-01-09] MEDS: HYOSCYAMINE SULFATE 0.125 MG TAB.SUBL SL (20:42)
[2024-01-09] MEDS: DICYCLOMINE HCL 10 MG CAPSULE 20 MG PO (20:43)
[2024-01-09] MEDS: OXYCODONE HCL/ACETAMINOPHEN 5MG/325MG 2 TAB PO (20:43)
== END 2024-01-09 21:02 | disposition home or self-care (01) ==
PROVIDERS: Physician Assistant; Emergency Provider Emergency Medicine; PCP Internal Medicine
DX: R10.30 Lower abdominal pain, unspecified (principal); Z90.49 Acquired absence of other specified parts of digestive tract
CPT/HCPCS: 36415; 74177; 76830; 80053; 81003; 83605; 84703; 85025; 96374; 96375; 96376; 99285; J1170; Q9967

== ENCOUNTER 2024-05-30 20:17 | Observation (INO) | payer BC, SELFPAY ==
[2024-05-30] VITALS (19 sets, daily range): BP systolic 116–138; BP diastolic 75–89; PULSE 81–94; TEMP 36.7–36.8; O2SAT 93–95; BMI 36.1; BMI 37.8
--- OUTSIDE RECORDS SUMMARY | 2024-05-30 20:43 | XMS_ITS | CCD ---
Author Organization [facility] Care Team Providers Care Band Cutter Name Role Phone UNKNOWN, PROVIDER Unavailable Unavailable ELVER MENDENHALL Unavailable Unavailable ELVER MENDENHALL Primary Care Unavailable NAOMI MOROCHO Admitting Unavailable BAILEE, NAOMI Vasques Attending Unavailable JANE NICOLAS V Consulting Unavailable NAOMI MOROCHO Consulting Unavailable NICHOLAS BOLTON Consulting Unavailable ELVER MENDENHALL Primary Care Unavailable NICHOLAS BOLTON Admitting Unavailable NICHOLAS BOLTON Attending Unavailable JOHN MENDEZ Consulting Unavailable NICHOLAS BOLTON Consulting Unavailable GITA GARCIA Admitting Unavailable GITA GARCIA Attending Unavailable ELVER MENDENHALL Primary Care Unavailable GITA GARCIA Consulting Unavailable ELVER MENDENHALL Primary Care Unavailable LESLYE DOSS Consulting Unavailable LESLYE DOSS Admitting Unavailable PURA, LESLYE Warner Attending Unavailable EBEN PROCTOR Consulting Unavailable LUBNA MANZANARES Consulting Unavailable ELVER MENDENHALL Primary Care Unavailable LESLYE DOSS Referring Unavailable IAN KU Attending Unavailable EBRAIAN LLANES Admitting Unavailable [place] Procedure Practitioner Unavailab IAN [place] Surgeon Unavailable Jane Waller Unavailable Ciera Mcwilliams Unavailable Tracy Oliver Unavailable OSCAR Mendenhall Primary Care Provider MD Jane Waller. Attending Provider OSCAR Mendenhall Primary Care Provider MD Jane Waller Attending Provider [phone] Efraín Patel Unavailable OSCAR Mendenhall Primary Care Provider [phone] MD Jane Waller. Attending Provider Elver Mendenhall MD Primary Care Provider GITA GARCIA Attending Unavailable FELTER, LUBNA A Attending Unavailable SEB KITCHEN Attending Unavailable SEB KITCHEN Referring Unavailable GITA GARCIA Attending Unavailable GITA GARCIA Attending Unavailable ISADORA BARNARD Attending Unavailable OSCAR Mendenhall Primary Care Provider [phone] MD Jane Waller Attending Provider [phone] Jane Waller Admitting Unavailable Jane Waller Attending Unavailable Jane Waller Admitting Unavailable Jane Waller Attending Unavailable Elver Mendenhall Primary Care Unavailable Jane Waller Admitting Unavailable Jane Waller Attending Unavailable Elver Mendenhall Primary Care Unavailable Allergies Allergy Classification Reported Allergen(s) Allergy Type Date of Onset Reaction(s) Facility (2 sources) Morphine Drug Allergy 9 [facility] Rep[facility] (1 source) Sulfamethoxazole / Trimethoprim Drug Allergy 6 [facility] (1 source) Sulfonamides (Antibiotic) Drug allergy (disorder) 9 [facility] Repository (16 sources) Clarithromycin; Translations: [clarithromycin] Drug Allergy 1 GI intolerance [facility] (11 sources) Sulfanilamide; Translations: [sulfanilamide] Drug Allergy 1 Unknown Reaction, Anaphylaxis [facility] (5 sources) Sulfonamides (Antibiotic) Drug Allergy 3 Unknown [facility] Medications Current Medications Medication Drug Class(es) Dates Sig (Normalized) Sig (Original) Advair Diskus 500-50 MCG/DOSE (8 sources) take 1 puff(s) by inhalation twice daily Advair Diskus 500-50 MCG/DOSE 1 puff Inhalation Twice a day for 30 days Active take 1 puff(s) by inhalation twi ce daily Advair Diskus 500-50 MCG/DOSE 1 puff Inhalation Twice a day for 90 day(s) Active [id number] 200 actuat albuterol 0.09 mg/actuat metered dose inhaler (20 sources) beta2-Adrenergic Agonist Start: 11-18-2020 take 1 puff(s) by inhalation every four to six hours Albuterol Sulfate (Proair Hfa) 90 mcg/actuation Hfa Aerosol Inhaler Active 2 PUFF INHALATION EVERY 4-6 HOURS November 18, 2020 12:00am albuterol HFA 90 mcg/act inhaler take 2 puff(s) by in halation every four hours as needed ProAir HFA 108 (90 Base) MCG/ACT 2 puffs as needed Inhalation every 4 hrs for 30 days Active take 3 mL by inhalat ion four times daily as needed Albuterol 0.083% 3 ml Inhalation qid prn dx: J45.20 asthma Active amphetamine aspartate 5 mg / amphetamine sulfate 5 mg / dextroamphetamine saccharate 5 mg / dextroamphetamine sulfate 5 mg oral tablet (20 sources) Central Nervous System Stimulant Start: 01-30-2024 End: 02-04-2024 take 1 tablet by mouth once daily Dextroamphetamine-Amphetamine (Adderall) 20 mg tablet Active 20 MG PO Daily 90 90 February 04, 2024 Start: 06-01-2021 take 1 capsule by mo [facility] every twenty-four hours Adderall XR 20 MG 1 capsule in the morning Orally Once a day for 90 days Narcolepsy do not fill until 02/25/23 Jun, Active Start: 03-13-2021 End: 01-30-2024 take 1 tablet by mouth twice daily Dextroamphetamine-Amphetamine (Adderall) 20 mg Tablet Discontinued 20 MG PO Twice daily March 13, 2021 12:00am January 30, 2024 9:53am Start: 12-20-2020 take 1 tablet by mouth once da jefry Adderall 20 MG 1 tablet Orally Once a day at noon for 90 days Narcolepsy do not fill until 02/25/23 Oct, Active atorvastatin 10 mg oral tablet (20 sources) HMG-CoA Reductase Inhibitor Start: 11-18-2020 take 10 mg by mouth once daily Atorvastatin Active 10 MG PO Daily November 18, 2020 12:00am BIPAP Machine (20 sources) BIPAP Machine Active cetirizine hydrochloride 10 mg oral tablet (20 sources) Histamine-1 Receptor Antagonist Start: 11-18-2020 take 10 mg by mouth once daily Cetirizine Active 10 MG PO Daily November 18, 2020 12:00am take 1 capsule by mo ut every twenty-four hours ZyrTEC Allergy 10 MG 1 tab(s) Orally Daily Active cholecalciferol 0.05 mg oral capsule (5 sources) Vitamin D cholecalciferol (Vitamin D-3) 50 MCG (1999 UT) capsule citalopram 40 mg oral tablet (20 sources) Serotonin Reuptake Inhibitor Start: 02-21-20 take 0.5 tablet by mouth in the morning citalopram (CeleXA) 40 MG tablet Indications: Obsessive-compulsive disorder, unspecified type (CMS/HCC) Take 0.5 tablets (20 mg) by mouth in the morning. 45 tablet 3 02/20/2023 Active Start: 11-18-2020 End: 01-30-2024 take 0.5 tablet by mouth once daily Citalopram Active 20 MG PO As Directed January 30, 2024 9:52am 1/2 tablet orally once a day take 1 tablet by willow th every twenty-four hours CeleXA 20 MG 1 tablet Orally Daily Active 24 hr dilTIAZem hydrochloride 120 mg extended release oral capsule (20 sources) Calcium Channel Konstantin Start: 02-28-2023 take 1 capsule by mouth every twenty-four hours in the morning dilTIAZem CD (Cardizem CD) 120 MG 24 hr capsule Indications: Tachycardia Take 1 capsule (120 mg) by mouth in the morning. 100 capsule 3 02/28/2023 Active Start: 11-18-2020 take 120 mg by mouth once demario y Diltiazem Hcl Active 120 MG PO Daily November 18, 2020 12:00am doxycycline monohydrate 100 mg oral capsule (7 sources) Tetracycline-class Drug Start: 08-19-2021 take 1 capsule by mouth every twelve hours Doxycycline Monohydrate 100 MG 1 capsule Orally every 12 hrs for 7 days Aug, Active eletriptan 40 mg oral tablet (15 sources) Serotonin-1b and Serotonin-1d Receptor Agonist Start: 11-18-2020 take 1 tablet by mouth every two hours, then take 2 tablets by mouth every twenty-four hours Eletriptan (Relpax) 40 mg Tablet Active 40 MG PO As Directed November 18, 2020 12:00am take 1 tablet if headache returns the dose may be repeated after 2 hours but no more than 2 doses should be given within 24 hour period fluconazole 150 mg oral tablet (12 sources) Azole Antifungal Start: 12-25-2023 take 150 mg by mouth once Fluconazole Active 150 MG PO Once December 25, 2023 12:00am Start: 08-19-2021 Diflucan 150 M G 1 tablet Orally if needed after antibiotics completed for 1 days Aug, Active fluticasone propionate 0.05 mg/actuat metered dose nasal spray (20 sources) Corticosteroid Start: 10-28-2022 take 1-2 spray(s) nasal route once daily fluticasone (Flonase) 50 MCG/ACT nasal spray SPRAY 1 TO 2 SPRAYS IN EACH NOSTRIL ONCE DAILY 0 10/28/2022 Active Start: 11-18-2020 Fluticasone Pr opionate (Flonase) 50 mcg/actuation [place],Suspension Active 1 SPRAY INTRANASAL Daily November 18, 2020 12:00am take 1-2 spray(s) na pankaj route once daily Fluticasone Propionate 50 MCG/ACT 1-2 spray in each nostril Nasally Once a day for 30 day(s) Active 60 actuat fluticasone propionate 0.5 mg/actuat / salmeterol 0.05 mg/actuat dry powder inhaler (20 sources) Corticosteroid, beta2-Adrenergic Agonist Start: 03-13-2023 take 1 puff(s) by inhalation twice daily Advair Diskus 500-50 MCG/ACT aerosol powder INHALE 1 PUFF INTO THE LUNGS TWICE A DAY FOR 30 DAYS 0 03/13/2023 Active Start: 11-18-2020 Fluticasone Pr opion-Salmeterol (Advair Diskus) 500-50 mcg/dose blister with device Active 1 EACH INHALATION Twice daily November 17, 2020 11:00pm Start: 11-18-2020 Fluticasone Pr opion-Salmeterol (Advair Diskus) 500-50 mcg/dose blister with device Active 1 EACH INHALATION Twice daily November 18, 2020 12:00am hydroCHLOROthiazide 25 mg oral tablet (20 sources) Thiazide Diuretic Start: 12-25-2023 take 25 mg by mouth once daily Hydrochlorothiazide Active 25 MG PO Daily December 25, 2023 12:00am Start: 11-18-2020 End: 10-04-2023 take 25 mg by mouth once daily Hydrochlorothiazide Discontinued 25 MG PO Daily November 18, 2020 12:00am November 18, 2020 2:29pm methylPREDNISolone 4 mg oral tablet (7 sources) Corticosteroid Start: 08-19-2021 methylPREDNISolone 4 MG as directed Orally Once a day for 6 days Aug, Active minocycline 100 mg oral capsule (5 sources) Tetracycline-class Drug Start: 09-17-2023 take 1 capsule by mouth twice daily minocycline 100 MG capsule Indications: Perioral dermatitis Take 1 capsule, by mouth, bid, 30 days 60 capsule 0 09/17/2023 Active omeprazole 40 mg delayed release oral capsule (20 sources) Proton Pump Inhibitor Start: 09-26-2023 take 1 capsule by mouth twice daily omeprazole (PriLOSEC) [address] capsule Indications: Gastroesophageal reflux disease without esophagitis TAKE 1 CAPSULE BY MOUTH TWICE DAILY 180 capsule 3 09/26/2023 Active Start: 11-18-2020 take 40 mg by mouth once daily Omeprazole Active 40 MG PO Daily November 18, 2020 12:00am microencapsulated potassium chloride 10 meq extended release oral tablet (5 sources) Start: 09-24-2022 KLOR-CON 10 ME Q ER tablet 1 (one) time each day at the same time. 0 09/24/2022 Active ProAir HFA 108 (90 Base) MCG/ACT (12 sources) take 2 puff(s) by inhalation every four hours as needed ProAir HFA 108 (90 Base) MCG/ACT 2 puffs as needed Inhalation every 4 hrs for 30 days Active solriamfetol 150 mg oral tablet (17 sources) Start: 02-06-2023 Sunosi 150 MG tablet Start: 02-06-2023 take 1 tablet by willow every twenty-four hours Sunosi 75 MG 1 tablet in the morning Orally Once a day for 15 days Jan, Active Solriamfetol (Sunosi) 150 mg tablet (7 sources) Start: 03-11-2024 take 1 tablet by mouth once daily Solriamfetol (Sunosi) 150 mg tablet Active 150 MG PO Daily March 11, 2024 1:15pm Start: 12-25-2023 End: 03-11-2024 take 1 tablet by mouth once daily Solriamfetol (Sunosi) 150 mg tablet Discontinued 150 MG PO Daily December 25, 2023 12:00am March 11, 2024 1:15pm Start: 12-25-2023 take 1 tablet by willow th once daily Solriamfetol (Sunosi) 150 mg tablet Active 150 MG PO Daily December 25, 2023 12:00am Completed/Discontinued Medications Medication Drug Class(es) Dates Sig (Normalized) Sig (Original) cefTRIAXone (18 sources) Cephalosporin Antibacterial Start: 03-10-2016 Rocephin 500 mg Mar, 500 mg clindamycin 300 mg oral capsule (10 sources) Lincosamide Antibacterial Start: 12-25-2023 End: 01-09-2024 take 300 mg by mouth three times daily Clindamycin Hcl Discontinued 300 MG PO Three times daily 30 December 25, 2023 12:00am January 09, 2024 3:18pm Start: 04-29-2023 clindamycin (C lindagel) 1 % gel Indications: Perioral dermatitis Apply to face BID 60 g 1 04/29/2023 Active cyclobenzaprine hydrochloride 5 mg oral tablet (10 sources) Muscle Relaxant Start: 11-18-2020 End: 01-30-2024 Cyclobenzaprine Discontinued 5 MG PO As Directed November 18, 2020 12:00am January 30, 2024 9:52am modafinil 200 mg oral tablet (10 sources) Sympathomimetic-li ke Agent Start: 11-18-2020 End: 03-13-2021 take 200 mg by mouth twice daily Modafinil Discontinued 200 MG PO Twice daily November 18, 2020 12:00am March 13, 2021 9:12am mupirocin 0.02 mg/mg topical ointment (20 sources) RNA Synthetase Inhibitor Antibacterial Start: 08-19-2021 Mupirocin 2 % 1 application with Qtip to affected area Externally 2 times a day for 7 days Aug, Not-Taking/PRN promethazine hydrochloride 25 mg oral tablet (10 sources) Phenothiazine Start: 11-18-2020 End: 12-25-2023 take 25 mg by mouth twice daily Promethazine Discontinued 25 MG PO Twice daily November 18, 2020 12:00am December 25, 2023 5:18pm valACYclovir 500 mg oral tablet (20 sources) Herpesvirus Nucleoside Analog DNA Polymerase Inhibitor, Herpes Simplex Virus Nucleoside Analog DNA Polymerase Inhibitor, Herpes Zoster Virus Nucleoside Analog DNA Polymerase Inhibitor Start: 11-18-2020 End: 12-25-2023 take 1 tablet by mouth once daily Valacyclovir (Valtrex) 500 mg Tablet Discontinued 500 MG PO Daily November 18, 2020 12:00am December 25, 2023 5:18pm take 1 tablet by willow th every twenty-four hours Valtrex 1 GM 1 tablet Orally every 24 hrs Active take 1 tablet by willow th every twenty-four hours Valtrex 1 GM 1 tablet Orally every 24 hrs Active Problems Active Problems Problem Classification Problem Date Documented Da te Episodic/Chronic Abdominal pain (4 sources) Abdominal pain; Translations: [Unspecified abdominal pain] 01-09-2024 Episodic Anxiety disorders (11 sources) Obsessive-compulsiv e disorder; Translations: [Obsessive-compulsi ve disorder, unspecified] Onset: 11-17-2008 02-20-2023 Chronic Anxiety disorders (1 source) Obsessive-compulsiv e disorder, unspecified; Translations: [OBSESSIVE-COMPULSI VE D/O UNSPEC] Onset: 01-06-2019 Deficiency and other anemia (16 sources) Anemia; Translations: [Anemia, unspecified] Onset: 10-04-2023 03-13-2021 Episodic Disorders of lipid metabolism (7 sources) Mixed hyperlipidemia; Translations: [Mixed hyperlipidemia] Onset: 04-08-2014 02-20-2023 Chronic Esophageal disorders (8 sources) Gastro-esophageal reflux disease without esophagitis; Translations: [Gastroesophageal reflux disease without esophagitis] Onset: 07-08-2019 02-20-2023 Chronic External cause codes: Fall (1 source) Fall on same level, unspecified, initial encounter; Translations: [FALL SAME LEVEL UNSPECIFIED INITIAL] Onset: 07-08-2019 Female infertility (7 sources) Female infertility; Translations: [Female infertility, unspecified] Onset: 01-18-2011 03-27-2023 Chronic Genitourinary symptoms and ill-defined conditions (1 source) Dysuria; Translations: [Dysuria] 01-09-2024 Episodic Headache; including migraine (5 sources) Migraine; Translations: [Migraine, unspecified, not intractable, without status migrainosus] Onset: 11-17-2008 02-20-2023 Chronic Neoplasms of unspecified nature or uncertain behavior (17 sources) Thrombocytosis; Translations: [Thrombocythemia] Onset: 02-20-2023 11-18-2020 Episodic Nonspecific chest pain (1 source) Chest pain, unspecified; Translations: [Chest pain, unspecified] Onset: 03-27-2018 Episodic Other aftercare (1 source) Other nursing home (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 therapy; Translations: [OTH [facility] CURRENT DRUG THERAPY] Onset: 07-08-2019 Episodic Other and unspecified benign neoplasm (2 sources) Benign neoplasm of soft tissue; Translations: [Melanocytic nevi, unspecified] 10-14-2023 Episodic Other connective tissue disease (1 source) Pain in left leg; Translations: [PAIN IN LEFT LEG] Onset: 05-26-2019 Episodic Other connective tissue disease (2 sources) Pain in bilateral legs; Translations: [Pain in right leg] 10-04-2023 Episodic Other inflammatory condition of skin (2 sources) Perioral dermatitis; Translations: [Perioral dermatitis] 10-14-2023 Chronic Other nervous system disorders (18 sources) Cataplexy and narcolepsy; 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 with cataplexy] 01-30-2024 Chronic Other nervous system disorders (10 sources) Narcolepsy with cataplexy; 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, with cataplexy] Onset: 06-01-2021 Resolved: 11-24-2021 Chronic Other nervous system disorders (10 sources) Cataplexy; 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 with cataplexy] Chronic Other non-traumatic joint disorders (3 sources) Pain in right knee; Translations: [PAIN IN RIGHT KNEE] Onset: 07-06-2019 Episodic Other nutritional; endocrine; and metabolic disorders (20 sources) Body mass index 30+ - obesity; Translations: [Body mass index (BMI) 37.0-37.9, adult] Onset: 02-20-2023 02-20-2023 Chronic Other nutritional; endocrine; and metabolic disorders (1 source) Body mass index (BMI) 37.0-37.9, adult Onset: 08-22-2021 Resolved: 08-22-2021 Chronic Other nutritional; endocrine; and metabolic disorders (2 sources) Weight gain; Translations: [Abnormal weight gain] 10-04-2023 Episodic Other skin disorders (4 sources) Localized swelling, mass and lump, left lower limb; Translations: [LOC SWELL MASS LUMP LT LOWER LIMB] Onset: 05-23-2019 Episodic Other upper respiratory disease (7 sources) Allergic rhinitis; Translations: [Other allergic rhinitis] Onset: 11-17-2008 02-20-2023 Chronic Residual codes; unclassified (16 sources) Obstructive sleep apnea (adult) (pediatric); Translations: [Obstructive sleep apnea (adult)(pediatric)] Onset: 06-12-2019 Resolved: 02-23-2022 Chronic Residual codes; unclassified (20 sources) Obstructive sleep apnea syndrome; Translations: [Obstructive sleep apnea (adult) (pediatric)] Onset: 02-20-2023 02-20-2023 Chronic Residual codes; unclassified (20 sources) Hypersomnia; Translations: [Hypersomnia, unspecified] Chronic Residual codes; unclassified (20 sources) Daytime somnolence; Translations: [Other hypersomnia] Onset: 02-20-2023 02-20-2023 Chronic Residual codes; unclassified (6 sources) Other hypersomnia; Translations: [Excessive daytime sleepiness G47.19] Onset: 06-01-2021 Resolved: 02-22-2022 Chronic Residual codes; unclassified (13 sources) Sleep paralysis; Translations: [Other sleep disorders] 01-30-2024 Chronic Residual codes; unclassified (2 sources) Other sleep disorders; Translations: [Sleep related movement disorder, unspecified] Chronic Residual codes; unclassified (1 source) Obstructive sleep apnea (adult)(pediatric); Translations: [Obstructive sleep apnea (adult) (pediatric)] Onset: 08-01-2023 Chronic Residual codes; unclassified (4 sources) Localized edema; Translations: [LOCALIZED EDEMA] Onset: 06-08-2019 Episodic Residual codes; unclassified (20 sources) Hypnagogic hallucinations; Translations: [Other hallucinations] 01-30-2024 Episodic Residual codes; unclassified (7 sources) Other hallucinations; Translations: [Hallucinations] Onset: 06-01-2021 Resolved: 02-22-2022 Episodic Residual codes; unclassified (1 source) Transient alteration of awareness; Translations: [Transient alteration of awareness] Onset: 05-20-2024 Episodic Skin and subcutaneous tissue infections (4 sources) Cellulitis of right lower limb; Translations: [Cellulitis of left lower limb] Onset: 08-19-2021 Resolved: 08-19-2021 Episodic Unclassified (2 sources) Chest pain, unspecified / R07.9(ICD-9) Onset: 03-27-2018 Past or Other Problems Problem Classification Problem Date Documented Da te Episodic/Chronic Asthma (20 sources) Unspecified asthma, uncomplicated; Translations: [Mild intermittent asthma] Onset: 9 Resolved: 3 Chronic Cardiac dysrhythmias (7 sources) Tachycardia; Translations: [Tachycardia, unspecified] Onset: 3 02-20-2023 Episodic Contraceptive and procreative management (5 sources) Patient encounter status; Translations: [Encounter for fertility testing] Onset: 1 Resolved: 4 03-27-2023 Episodic Diabetes mellitus without complication (7 sources) Impaired fasting glycemia; Translations: [Impaired fasting glucose] Onset: 3 02-20-2023 Episodic Diabetes or abnormal glucose tolerance complicating ; childbirth; or the puerperium (7 sources) History of gestational diabetes mellitus; Translations: [Personal history of gestational diabetes] Onset: 3 02-20-2023 Episodic Fever of unknown origin (1 source) Fever, unspecified; Translations: [FEVER UNSPECIFIED] Onset: 9 Episodic Fluid and electrolyte disorders (2 sources) Hypokalemia; Translations: [Dehydration] Onset: 9 Episodic Fracture of lower limb (6 sources) Displaced bicondylar fracture of right tibia, initial encounter for closed fracture; Translations: [Fracture of tibial plateau] Onset: 9 Resolved: 4 03-27-2023 Episodic Nausea and vomiting (4 sources) Nausea with vomiting, unspecified; Translations: [NAUSEA WITH VOMITING UNSPECIFIED] Onset: 9 Episodic Noninfectious gastroenteritis (1 source) Noninfective gastroenteritis and colitis, unspecified; Translations: [NONINFECTIVE GE AND COLITIS UNS] Onset: 9 Episodic Nutritional deficiencies (7 sources) Iron deficiency; Translations: [Iron deficiency] Onset: 3 02-20-2023 Episodic Other gastrointestinal disorders (1 source) Diarrhea, unspecified; Translations: [DIARRHEA UNSPECIFIED] Onset: 9 Episodic Other injuries and conditions due to external causes (7 sources) H/O: fracture; Translations: [Personal history of (healed) traumatic fracture] Onset: 3 02-20-2023 Episodic Other liver diseases (7 sources) ALT (SGPT) level raised; Translations: [Elevated ALT measurement] Onset: 3 02-20-2023 Episodic Other nervous system disorders (5 sources) Narcolepsy without cataplexy ; 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 without cataplexy] Onset: 3 Resolved: 3 03-28-2023 Chronic Other non-traumatic joint disorders (7 sources) Ankle edema; Translations: [Effusion, unspecified ankle] Onset: 3 02-20-2023 Episodic Other screening for suspected conditions (not mental disorders or infectious disease) (8 sources) Abnormal electrocardiogram [ECG] [EKG]; Translations: [Electrocardiogram abnormal] Onset: 9 02-20-2023 Episodic Residual codes; unclassified (1 source) Acquired absence of other specified parts of digestive tract; Translations: [ACQ ABSENCE OTH PART DIGESTV TRACT] Onset: 9 Episodic Syncope (1 source) Syncope and collapse; Translations: [SYNCOPE AND COLLAPSE] Onset: 9 Episodic Results Test Name Value Interpretation Reference Range Facility Amphetamine Screen Ql (U)Ord ered By: Jane Waller on 05-20-2024 Amphetamines Ql (U) Negative Negative [facility] [place] Barbiturates [Presence] in U rine by Screen methodOrdered By: Jane Waller on 05-20-2024 Barbiturates Screen Ql (U) Negative Negative [facility] Benzodiazepines Screen Ql (U )Ordered By: Jane Waller on 05-20-2024 Benzodiazepines Ql (U) Negative Negative [facility] Benzoylecgonine [Presence] i n Urine by Screen methodOrdered By: Jane Waller on 05-20-2024 Benzoylecgonine Screen Ql (U) Negative Negative [facility] Cannabinoids [Presence] in U rine by Screen methodOrdered By: Jane Waller on 05-20-2024 Cannabinoids Screen Ql (U) Negative Negative [facility] Comment on above: These are unconfirme d results and should not be used for legal purposes. Drug Cut-Off Concentration: AMPH 1000 ng/mL KEITH 200 ng/mL LARS 200 ng/mL COCM 300 ng/mL OP 300 ng/mL PCP 25 ng/mL THC 20 ng/mL Drug Screen,Urineon 05-20-20 24 Amphetamine Screen,Urine Negative Normal Negative [facility] Comment on above: Performed By: #### U RDS #### [address] Barbiturate Screen,Urine Negative Normal Negative [facility] Comment on above: Performed By: #### U RDS #### [address] Benzodiazepines Screen,Urine Negative Normal Negative [facility] Comment on above: Performed By: #### U RDS #### [address] Cannabinoid Screen,Urine Negative Normal Negative [facility] Comment on above: Result Comment: Thes e are unconfirmed results and should not be used for legal purposes. Drug Cut-Off Concentration: AMPH 1000 ng/mL KEITH 200 ng/mL LARS 200 ng/mL COCM 300 ng/mL OP 300 ng/mL PCP 25 ng/mL THC 20 ng/mL PERFORMED BY: [place] [address] PATHOLOGIST APPLICATIONS ANALYST YENNIFER BROWN M.D. Performed By: #### U RDS #### [address] Cocaine Screen,Urine Negative Normal Negative [facility] Comment on above: Performed By: #### U RDS #### [address] Opiate Screen,Urine Negative Normal Negative [facility] Comment on above: Performed By: #### U RDS #### [address] Phencyclidine Screen,Urine Negative Normal Negative [facility] Comment on above: Performed By: #### U RDS #### [address] Opiates [Presence] in Urine by Screen methodOrdered By: Jane Waller on 05-20-2024 Opiates Screen Ql (U) Negative Negative [facility] Phencyclidine Screen Ql (U)O rdered By: Jane Waller on 05-20-2024 Phencyclidine Ql (U) Negative Negative [facility] Laboratory - Chemistry and C hemistry - challengeon 01-09-2024 Bilirubin Ql (U) Negative [facility] Glucose (U) [Mass/Vol] Negative [facility] Ketones Ql (U) Negative [facility] pH (U) 6.0 [pH] [facility] Specific gravity (U) [Rel density] 1.020 [facility] Urobilinogen (U) [Mass/Vol] 0.2 mg/dL [facility] Laboratory - Specimen inform ationon 01-09-2024 Appearance (U) clear [facility] Color (U) yellow [facility] Laboratory - Urinalysison Leukocyte esterase Test strip Ql (U) Negative [facility] Nitrite Ql (U) Negative [facility] Protein Ql (U) Negative [facility] No Panel Informationon 01-08 Urine Occult Blood Negative [facility] Complete Blood Count with Au to Diffon 09-18-2021 Basophils (Bld) [#/Vol] 0.09 10*3/uL Normal 0.00-0.20 [facility] [employer] Comment on above: Performed By: #### C BCAD, CMP, LIPD, FE Prof #### [facility] [address], [place] [id number] Basophils/100 WBC (Bld) 1.2 % Normal [facility] [employer] Comment on above: Performed By: #### C BCAD, CMP, LIPD, FE Prof #### [facility] [address] [place], [place] [id number] Eosinophils (Bld) [#/Vol] 0.18 10*3/uL Normal 0.02-0.50 [facility] [employer] Comment on above: Performed By: #### C BCAD, CMP, LIPD, FE Prof #### [facility] [address], [place] [id number] Eosinophils/100 WBC (Bld) 2.5 % Normal [facility] [employer] Comment on above: Performed By: #### C BCAD, CMP, LIPD, FE Prof #### [facility] [address] [place], [place] [id number] Erythrocyte distribution width (RBC) [Ratio] 12.4 % Normal 11.0-15.0 [facility] Comment on above: Performed By: #### C BCAD, CMP, LIPD, FE Prof #### [facility] [address] [place], [place] [id number] Hematocrit (Bld) [Volume fraction] 41.2 % Normal 35.0-47.0 [facility] Comment on above: Performed By: #### C BCAD, CMP, LIPD, FE Prof #### [facility] [address] [place], [place] [id number] Hemoglobin (Bld) [Mass/Vol] 14.2 g/dL Normal 11.6-15.5 [facility] [employer] Comment on above: Performed By: #### C BCAD, CMP, LIPD, FE Prof #### [facility] [address] [place], [place] [id number] Lymphocytes (Bld) [#/Vol] 2.3 10*3/uL Normal 0.9-3.9 [facility] [employer] Comment on above: Performed By: #### C BCAD, CMP, LIPD, FE Prof #### [facility] [address] [place], [place] [id number] Lymphocytes/100 WBC (Bld) 31.5 % Normal [facility] [employer] Comment on above: Performed By: #### C BCAD, CMP, LIPD, FE Prof #### [facility] [address] [place], [place] [id number] MCH (RBC) [Entitic mass] 33.4 pg High 27.0-33.0 [facility] Comment on above: Performed By: #### C BCAD, CMP, LIPD, FE Prof #### [facility] [address] [place], [place] [id number] MCHC (RBC) [Mass/Vol] 34.5 g/dL Normal 32.0-36.0 [facility] [employer] Comment on above: Performed By: #### C BCAD, CMP, LIPD, FE Prof #### [facility] [address] [facility] [place] [id number] MCV (RBC) [Entitic vol] 97 fL Normal 80-100 [facility] Comment on above: Performed By: #### C BCAD, CMP, LIPD, FE Prof #### [facility] [address] [facility] [place] [id number] Monocytes (Bld) [#/Vol] 0.5 10*3/uL Normal 0.2-0.9 [facility] Comment on above: Performed By: #### C BCAD, CMP, LIPD, FE Prof #### [facility] [address] [facility] [place] [id number] Monocytes/100 WBC (Bld) 6.2 % Normal [facility] Comment on above: Performed By: #### C BCAD, CMP, LIPD, FE Prof #### [facility] [address] [facility] [place] [id number] Neutrophils (Bld) [#/Vol] 4.2 10*3/uL Normal 1.5-7.8 [facility] Comment on above: Performed By: #### C BCAD, CMP, LIPD, FE Prof #### [facility] [address] [facility] [place] [id number] Neutrophils/100 WBC (Bld) 58.5 % Normal [facility] Comment on above: Performed By: #### C BCAD, CMP, LIPD, FE Prof #### [facility] [address] [place], [place] [id number] Platelet mean volume (Bld) [Entitic vol] 8.10 fL Normal 7.50-12.50 [facility] Comment on above: Performed By: #### C BCAD, CMP, LIPD, FE Prof #### [facility] [address] [facility] [place] [id number] Platelets (Bld) [#/Vol] 389 10*3/uL Normal 140-400 [facility] Comment on above: Performed By: #### C BCAD, CMP, LIPD, FE Prof #### [facility] [address] [facility] [id number] RBC (Bld) [#/Vol] 4.25 10*6/uL Normal 3.90-5.20 [facility] [employer] Comment on above: Performed By: #### C BCAD, CMP, LIPD, FE Prof #### [facility] [address] [place], [place] [id number] RDW-SD 44.2 fL Normal 37.0-50.0 [facility] [employer] Comment on above: Performed By: #### C BCAD, CMP, LIPD, FE Prof #### [facility] [address] [place], [place] [id number] WBC (Bld) [#/Vol] 7.2 10*3/uL Normal 3.8-11.0 [facility] [employer] Comment on above: Performed By: #### C BCAD, CMP, LIPD, FE Prof #### [facility] [address] [place], [place] [id number] Comprehensive Metabolic Pane nichole 09-18-2021 Albumin [Mass/Vol] 4.5 g/dL Normal 3.6-5.1 [facility] [employer] Comment on above: Performed By: #### C BCAD, CMP, LIPD, FE Prof #### [facility] [address] [place], [place] [id number] Albumin/Globulin [Mass ratio] 2.1 {ratio} Normal 1.0-2.5 [facility] [employer] Comment on above: Performed By: #### C BCAD, CMP, LIPD, FE Prof #### [facility] [address] [place], [place] [id number] ALP [Catalytic activity/Vol] 64 U/L Normal 35-119 [facility] [employer] Comment on above: Performed By: #### C BCAD, CMP, LIPD, FE Prof #### [facility] [address] [place], [place] [id number] ALT [Catalytic activity/Vol] 52 U/L High 6-33 [facility] [employer] Comment on above: Result Comment: 08/02 Female reference range changed. Performed By: #### C BCAD, CMP, LIPD, FE Prof #### [facility] [address] [place], [place] [id number] Anion gap [Moles/Vol] 15 mmol/L Normal 12-20 [place] [employer] Comment on above: Result Comment: Effcecy ctive 09/07/2019 reference range changed. Performed By: #### C BCAD, CMP, LIPD, FE Prof #### [facility] [address] [place], [place] [id number] AST [Catalytic activity/Vol] 29 U/L Normal 9-34 [facility] Comment on above: Performed By: #### C BCAD, CMP, LIPD, FE Prof #### [facility] [address] [place], [place] [id number] Bilirubin [Mass/Vol] 0.57 mg/dL Normal 0.30-1.20 [facility] Comment on above: Performed By: #### C BCAD, CMP, LIPD, FE Prof #### [facility] [address] [place], [place] [id number] BUN/CREA 18 Ratio Normal 6-22 [facility] Comment on above: Performed By: #### C BCAD, CMP, LIPD, FE Prof #### [facility] [address] [place], [place] [id number] Calcium [Mass/Vol] 9.5 mg/dL Normal 8.6-10.2 [facility] Comment on above: Performed By: #### C BCAD, CMP, LIPD, FE Prof #### [facility] [address] [place], [place] [id number] Chloride [Moles/Vol] 103 mmol/L Normal 98-107 [facility] Comment on above: Performed By: #### C BCAD, CMP, LIPD, FE Prof #### [facility] [address] [place], [place] [id number] CO2 [Moles/Vol] 27 mmol/L Normal 20-31 [facility] Comment on above: Performed By: #### C BCAD, CMP, LIPD, FE Prof #### [facility] [address] [place], [place] [id number] Creatinine [Mass/Vol] 0.7 mg/dL Normal 0.6-1.4 [facility] Comment on above: Performed By: #### C BCAD, CMP, LIPD, FE Prof #### [facility] [address] [place], [place] [id number] eGFRAA 112 mL/min/1.73m2 Normal >60 [facility] [employer] Comment on above: Performed By: #### C BCAD, CMP, LIPD, FE Prof #### [facility] [address] [place], [place] [id number] eGFRNAA 92 mL/min/1.73m2 Normal >60 [facility] [employer] Comment on above: Performed By: #### C BCAD, CMP, LIPD, FE Prof #### [facility] [address] [place], [place] [id number] Globulin (S) [Mass/Vol] 2.1 g/dL Normal 1.9-3.7 [facility] [employer] Comment on above: Performed By: #### C BCAD, CMP, LIPD, FE Prof #### [facility] [address] [place], [place] [id number] Glucose [Mass/Vol] 123 mg/dL High 65-99 [facility] Comment on above: Result Comment: For FASTING Glucose --- ADA reference ranges: Normal 65-99 mg/dl Prediabetes 100-125 Diabetes >/= 126 Performed By: #### C BCAD, CMP, LIPD, FE Prof #### [facility] [address] [place], [place] [id number] Potassium [Moles/Vol] 3.7 mmol/L Normal 3.5-5.5 [facility] [employer] Comment on above: Performed By: #### C BCAD, CMP, LIPD, FE Prof #### [facility] [address] [place], [place] [id number] Protein [Mass/Vol] 6.6 g/dL Normal 6.1-8.1 [facility] [employer] Comment on above: Performed By: #### C BCAD, CMP, LIPD, FE Prof #### [facility] [address] [place], [place] [id number] Sodium [Moles/Vol] 141 mmol/L Normal 135-146 [facility] [place] [employer] Comment on above: Performed By: #### C BCAD, CMP, LIPD, FE Prof #### [facility] [address] [place], [place] [id number] Urea nitrogen [Mass/Vol] 12 mg/dL Normal 7-25 [facility] [employer] Comment on above: Performed By: #### C BCAD, CMP, LIPD, FE Prof #### [facility] [address] [place], [place] [id number] Iron Profileon 09-18-2021 %FESAT 38 % Normal 11-50 [facility] Comment on above: Performed By: #### C BCAD, CMP, LIPD, FE Prof #### [facility] [address] [place], [place] [id number] FE 113 ug/dL Normal 40-190 [facility] [employer] Comment on above: Result Comment: Refe rence range change 07/19/2017. Prior reference range F 37-145 ug/dL, M 59-158 ug/dL. Performed By: #### C BCAD, CMP, LIPD, FE Prof #### [facility] [address] [place], [place] [id number] TIBC 297 ug/dL Normal 250-450 [facility] Comment on above: Performed By: #### C BCAD, CMP, LIPD, FE Prof #### [facility] [address] [place], [place] [id number] UIBC 184 ug/dL Normal 112-347 [facility] [employer] Comment on above: Performed By: #### C BCAD, CMP, LIPD, FE Prof #### [facility] [address] [place], [place] [id number] Lipid Panelon 09-18-2021 Cholesterol [Mass/Vol] 238 mg/dL High 125-200 [facility] [employer] Comment on above: Result Comment: Low risk < 200mg/dL Borderline risk 201-239 mg/dl High risk > or equal to 240 Performed By: #### C BCAD, CMP, LIPD, FE Prof #### [facility] [address] [place], [place] [id number] Cholesterol in HDL [Mass/Vol] 42 mg/dL Normal >40 [facility] Comment on above: Result Comment: High Cardiovascular Risk HDL <40 mg/dL Low Cardiovascular Risk HDL > or equal to 60 mg/dl Performed By: #### C BCAD, CMP, LIPD, FE Prof #### [facility] [address] [place], [place] [id number] Cholesterol in LDL [Mass/Vol] 131 mg/dL Normal [facility] Comment on above: Result Comment: LDL ATP III CLASSIFICATION LDL less than 100 mg/dl Optimal LDL 100-129 mg/dl Near or above optimal LDL 130-159 Borderline high LDL 160-189 High LDL greater than 189 mg/dl Very High Performed By: #### C BCAD, CMP, LIPD, FE Prof #### [facility] [address] [place], [place] [id number] Cholesterol in VLDL [Mass/Vol] 65 mg/dL Normal [facility] Comment on above: Performed By: #### C BCAD, CMP, LIPD, FE Prof #### [facility] [address] [place], [place] [id number] Cholesterol.total/Ch olesterol in HDL [Mass ratio] 6 {ratio} Normal [facility] Comment on above: Performed By: #### C BCAD, CMP, LIPD, FE Prof #### [facility] [address] [facility] [place] [id number] Triglyceride [Mass/Vol] 326 mg/dL High 30-150 [facility] [employer] Comment on above: Result Comment: TRIG ATPIII CLASSIFICATIONS TRIG less than 150 mg/dl Normal TRIG 150-199 mg/dl Borderline High TRIG 200-500 mg/dl High TRIG greather than 500 mg/dl Very High Performed By: #### C BCAD, CMP, LIPD, FE Prof #### [facility] [address] [place], [place] [id number] KNEE RIGHT 3 [facility] 0 KNEE RIGHT 3 S [facility] Department of Radiology [address] [place] [id number] Patient Name: LINDA ALVARADO : 1975 Sex: F Age: Race: White Pt. Location: Patient Status: O Ordered Date: 03/31/2020 1:55:00 PM Completed Date: 03/31/2020 01:59 PM Requesting Provider: JONAS BISHOP Attending Provider: JONAS BISHOP Report Copy To: Signs & Symptoms: S82.101D Unsp fx upper end of r tibia, subs for clos fx w routn heal I10 History: [place] Comments: Weight Bearing?: Y Exam: KNEE RIGHT 3 [facility] KNEE RIGHT 3 [facility] 03/31/2020 1:59 PM CLINICAL INDICATIONS: S82.101D Unsp fx upper end of r tibia, subs for clos fx w routn heal I10 TECHNOLOGIST COMMENTS: rt knee surgery 06/20 had a recent fall, pain in medial knee below patella QUESTION FOR THE RADIOLOGIST: Weight Bearing?: Y PROTOCOL: AP,Lateral and Tangential views were obtained. COMPARISON: October 12 FINDINGS: Lateral tibial plate and screws and bone cement again noted There is depression/deformity of the lateral plateau, similar or slightly increased. It could be accentuated by differences in positioning and projection There is a small suprapatellar effusion Patellofemoral joint looks maintained IMPRESSION: Slight increased deformity of the lateral plateau could be accentuated by differences in positioning and projection Small effusion with hardware in place reducing the lateral plateau fracture Electronically signed: Jonas Robbins. Transcribed by: [email or web address], User Resident: Electronically Signed by: JONAS ROBBINS @ 03/31/2020 02:03 PM Normal [facility] Comment on above: Order Comment: Weigh t Bearing?: Y KNEE RIGHT 3 [facility] 0 KNEE RIGHT 3 [facility] Department of Radiology [address] [place] [id number] Patient Name: LINDA ALVARADO : 1975 Sex: F Age: Race: White Pt. Location: 84 Patient Status: O Ordered Date: 10/12/2019 11:20:00 AM Completed Date: 10/12/2019 11:29 AM Requesting Provider: JONAS BISHOP Attending Provider: JONAS BISHOP Report Copy To: ELVER MENDENHALL Signs & Symptoms: S82.101D Unsp fx upper end of r tibia, subs for clos fx w routn heal I10 History: [place] Comments: , , , Ordering Provider - JONAS BISHOP PA-C , Exam: KNEE RIGHT 3 VWS KNEE RIGHT 3 S 10/12/2019 11:29 AM SIGNS AND SYMPTOMS: S82.101D Unsp fx upper end of r tibia, subs for clos fx w routn heal I10 TECHNOLOGIST COMMENTS: right knee surgery July 2019 follow up QUESTION FOR THE RADIOLOGIST: , , , Ordering Provider - JONAS BISHOP PA-C , PROTOCOL: AP,Lateral and Tangential views were obtained. COMPARISON: September 14, 2019 FINDINGS: Soft tissues: Mild swelling Bones: Lateral plating of tibial plateau fracture in satisfactory alignment with about 1 mm of articular irregularity Joints: Small effusion and very little arthritis but some residual depression laterally IMPRESSION: Healing lateral plateau fracture with hardware in good alignment Electronically signed: Ying Enriquez. Transcribed by: [email or web address], User Resident: Electronically Signed by: YING ENRIQUEZ @ 10/12/2019 12:10 PM Normal [facility] Comment on above: Order Comment: , , = ========= , Ordering Provider - JONAS BISHOP PA-C , KNEE RIGHT 1 OR 2 VWSon 09-02 KNEE RIGHT 1 OR 2 S [facility] Department of Radiology [address] [place] [id number] Patient Name: LINDA ALVARADO : 1975 Sex: F Age: Race: White Pt. Location: Patient Status: Ordered Date: 09/14/2019 10:40:00 AM Completed Date: 09/14/2019 11:01 AM Requesting Provider: JONAS BISHOP Attending Provider: Report Copy To: Signs & Symptoms: S82.101D Unsp fx upper end of r tibia, subs for clos fx w routn heal I10 History: [place] Comments: , , , Ordering Provider - JONAS BISHOP PA-C , Exam: KNEE RIGHT 1 OR 2 VWS KNEE RIGHT 1 OR 2 VWS 09/14/2019 11:01 AM SIGNS AND SYMPTOMS: S82.101D Unsp fx upper end of r tibia, subs for clos fx w routn heal I10 TECHNOLOGIST COMMENTS: Patient states post fall x 10 weeks ortho follow up of right knee QUESTION FOR THE RADIOLOGIST: , , , Ordering Provider - JONAS BISHOP PA-C , PROTOCOL: AP(PA) and Lateral views were obtained. COMPARISON: August 17, 2019 FINDINGS: Soft tissues: Normal Bones: Open reduction internal fixation of lateral tibial plateau fracture with lateral plate and screws alignment and hardware unchanged incomplete healing Joints: Unchanged IMPRESSION: 1. Open reduction internal fixation of lateral tibial plateau fracture with lateral plate and screws alignment and hardware unchanged incomplete healing Electronically signed: Stephanie Navarro. Transcribed by: [email or web address], User Resident: Electronically Signed by: STEPHANIE NAVARRO @ 09/14/2019 05:22 PM Normal [facility] Comment on above: Order Comment: , , = ========= , Ordering Provider - JONAS BISHOP PA-C , KNEE RIGHT 1 OR 2 [facility] 08-02 KNEE RIGHT 1 OR 2 [facility] Department of Radiology [address] [place] [phone] Patient Name: LINDA ALVARADO : 1975 Sex: F Age: Race: White Pt. Location: Patient Status: O Ordered Date: 08/17/2019 1:25:00 PM Completed Date: 08/17/2019 01:26 PM Requesting Provider: JONAS BISHOP Attending Provider: JONAS BISHOP Report Copy To: ELVER MENDENHALL Signs & Symptoms: S82.101A Unsp fracture of upper end of right tibia, init for clos fx I10 History: [place] Comments: , Views (X-RAY, KNEE): AP, Lateral , Views (X-RAY, KNEE): AP, Lateral , , , Ordering Provider - JONAS BISHOP PA-C , Exam: KNEE RIGHT 1 OR 2 VWS KNEE RIGHT 1 OR 2 VWS 08/17/2019 1:26 PM EST SIGNS AND SYMPTOMS: S82.101A Unsp fracture of upper end of right tibia, init for clos fx I10 TECHNOLOGIST COMMENTS: ortho follow up rt knee fracture 07/07/2019 QUESTION FOR THE RADIOLOGIST: , Views (X-RAY, KNEE): AP, Lateral , Views (X-RAY, KNEE): AP, Lateral , , , Ordering Provider - JONAS BISHOP PA-C , PROTOCOL: AP(PA) and Lateral views were obtained. COMPARISON: July 20, 2019 FINDINGS: Soft tissues: Small suprapatellar effusion Bones: Plate and screw fixation of lateral tibial plateau fracture alignment and hardware unchanged incomplete healing Joints: Normal IMPRESSION: 1. Plate and screw fixation of lateral tibial plateau fracture alignment and hardware unchanged incomplete healing 2. Small suprapatellar effusion Electronically signed by:Stephanie Navarro. Transcribed by: [email or web address], User Resident: Electronically Signed by: STEPHANIE NAVARRO @ 08/17/2019 03:52 PM Normal [facility] Comment on above: Order Comment: , Katherine ws (X-RAY, KNEE): AP, Lateral , Views (X- RAY, KNEE): AP, Lateral , , , Ordering Provider - JONAS BISHOP PA-C , VITAMIN D 25-HYDROXYon 08-17 VITAMIN D 25-OH 35.4 ng/mL Normal 30.0-80.0 [facility] Comment on above: Result Comment: >80. 0 Toxicity possible Performed By: #### 5 [id number], [id number] #### [address] [place] [address], [facility] KNEE RIGHT 1 OR 2 VWSon 07-03 KNEE RIGHT 1 OR 2 VWS [facility] Department of Radiology [address] [place] [address] [place] [phone] Patient Name: LINDA ALVARADO : 1975 Sex: F Age: Race: White Pt. Location: Patient Status: Ordered Date: 07/20/2019 10:30:00 AM Completed Date: 07/20/2019 10:42 AM Requesting Provider: SHWETA VIDAL Attending Provider: Report Copy To: Signs & Symptoms: S82.101A Unsp fracture of upper end of right tibia, init for clos fx I10 History: [place] Comments: , , , Ordering Provider - SHWETA VIDAL PA-C , Exam: KNEE RIGHT 1 OR 2 VWS KNEE RIGHT 1 OR 2 VWS 07/20/2019 10:42 AM EST SIGNS AND SYMPTOMS: S82.101A Unsp fracture of upper end of right tibia, init for clos fx I10 TECHNOLOGIST COMMENTS: right knee pain surgery - 2 weeks ago f/u QUESTION FOR THE RADIOLOGIST: , , , Ordering Provider - SHWETA VIDAL PA-C , PROTOCOL: AP and Lateral views were obtained. COMPARISON: July 07, 2019 FINDINGS: Open reduction internal fixation of lateral tibial plateau fracture with lateral plate and screws alignment unchanged. Hardware is unchanged. Incomplete healing. No other fractures noted. Study is somewhat obscured by a brace IMPRESSION: 1. Stable lateral plate and screw fixation of tibial plateau fracture. Incomplete healing Electronically signed by:Stephanie Navarro. Transcribed by: [email or web address], User Resident: Electronically Signed by: STEPHANIE NAVARRO @ 07/20/2019 05:04 PM Normal [facility] Comment on above: Order Comment: , , = ========= , Ordering Provider - SHWETA VIDAL PA-C , BASIC METABOLIC PANELon 11-0 Calcium [Mass/Vol] 8.8 mg/dL Normal 8.6-10.3 [facility] Comment on above: Order Comment: No: D o not add to previous draw Performed By: #### 5 [id number], [id number] #### [facility] [address] [place] [address], [place] Chloride [Moles/Vol] 99 mmol/L Normal 98-107 [facility] Comment on above: Order Comment: No: D o not add to previous draw Performed By: #### 5 610, [id number] #### [facility] [address] [place] [address], [place] CO2 [Moles/Vol] 27 mmol/L Normal 21-31 [facility] Comment on above: Order Comment: No: D o not add to previous draw Performed By: #### 5 610, [id number] #### [facility] [address] [place] [address], [place] Creatinine [Mass/Vol] 0.81 mg/dL Normal 0.60-1.20 [facility] Comment on above: Order Comment: No: D o not add to previous draw Performed By: #### 5 610, 17557 #### [facility] [address] [place] [address], [place] GFR/1.73 sq M predicted among blacks MDRD (S/P/Bld) [Vol rate/Area] mL/min/{1.73_m2} Normal >60 [facility] Comment on above: Order Comment: No: D o not add to previous draw Performed By: #### 5 610, 76726 #### [facility] [address] [place] [address], [place] GFR/1.73 sq M predicted among non-blacks MDRD (S/P/Bld) [Vol rate/Area] mL/min/{1.73_m2} Normal >60 [facility] Comment on above: Order Comment: No: D o not add to previous draw Performed By: #### 5 610, [id number] #### [facility] [address] [place] [address], [place] Glucose [Mass/Vol] 105 mg/dL High 70-100 [facility] Comment on above: Order Comment: No: D o not add to previous draw Performed By: #### 5 610, 93066 #### [facility] [address] [place] [address], [place] Potassium [Moles/Vol] 3.8 mmol/L Normal 3.5-5.1 [facility] Comment on above: Order Comment: No: D o not add to previous draw Performed By: #### 5 610, 43039 #### [facility] [address] [place] [address], [place] Sodium [Moles/Vol] 133 mmol/L Low 136-145 [facility] Comment on above: Order Comment: No: D o not add to previous draw Performed By: #### 5 610, [id number] #### [facility] [address] [place] [address], [place] Urea nitrogen [Mass/Vol] 10 mg/dL Normal 7-25 [facility] Comment on above: Order Comment: No: D o not add to previous draw Performed By: #### 5 6100, [id number] #### [facility] [address] [place] [address], [facility] CBC COMPLETE BLOOD COUNTon 09-07-2018 Erythrocyte distribution width (RBC) [Ratio] 13.3 % Normal 11.5-15.0 [facility] Comment on above: Order Comment: No: D o not add to previous draw Performed By: #### 5 6100, 13967 #### [facility] [address] [place] [address], [facility] Hematocrit (Bld) [Volume fraction] 36.1 % Normal 36.0-45.0 [facility] Comment on above: Order Comment: No: D o not add to previous draw Performed By: #### 5 6100, [id number] #### [facility] [address] [place] [address], [facility] Hemoglobin (Bld) [Mass/Vol] 11.6 g/dL Low 12.0-15.0 [facility] Comment on above: Order Comment: No: D o not add to previous draw Performed By: #### 5 6100, 24304 #### [facility] [address] [place] [address], [facility] MCH (RBC) [Entitic mass] 31.2 pg Normal 27.0-33.0 [facility] Comment on above: Order Comment: No: D o not add to previous draw Performed By: #### 5 6100, [id number] #### [facility] [address] [place] [address], [facility] MCHC (RBC) [Mass/Vol] 32.1 g/dL Normal 32.0-35.0 [facility] Comment on above: Order Comment: No: D o not add to previous draw Performed By: #### 5 6100, 67365 #### [facility] [address] [place] [address], [place] MCV (RBC) [Entitic vol] 97.0 fL Normal 82.0-98.0 [facility] Comment on above: Order Comment: No: D o not add to previous draw Performed By: #### 5 6101, 78233 #### [facility] [address] [place] [address], [facility] Nucleated RBC/100 WBC (Bld) [Ratio] 0 % Normal 0-0 [facility] Comment on above: Order Comment: No: D o not add to previous draw Performed By: #### 5 610, 29754 #### [facility] [address] [place] [address], [place] PLAT CNT 447 10*3/uL High 150-400 [facility] Comment on above: Order Comment: No: D o not add to previous draw Performed By: #### 5 6101, 64591 #### [facility] [address] [place] [address], [facility] RBC (Bld) [#/Vol] 3.72 10*6/uL Low 3.80-5.00 [facility] Comment on above: Order Comment: No: D o not add to previous draw Performed By: #### 5 6101, 94029 #### [facility] [address] [place] [address], [place] WBC (Bld) [#/Vol] 16.46 10*3/uL High 4.00-10.60 [facility] Comment on above: Order Comment: No: D o not add to previous draw Performed By: #### 5 6101, 85033 #### [facility] [address] [place] [address], [facility] *MRSA/MSSA DNA NASALon 07-07 *MRSA/MSSA DNA NASAL Clinical Report: (D ) Specimen: NASAL SWAB Collected: 07/07/2019 08:00 Status: Final Last Updated: 07/07/2019 14:28 MSSA DNA (Final) Methicillin Susceptible Staphylococcus aureus DNA Detected MRSA DNA (Final) Negative Normal [facility] Comment on above: Performed By: #### 5 6101, [id number] #### [facility] [address] APTTon 07-07-2019 aPTT Coag (Bld) [Time] 38.8 s High 25.0-35.0 [facility] Comment on above: Result Comment: ALL RESULTS MUST BE INTERPRETED WITH RESPECT TO BLOOD DRAWING ARTIFACT OR DILUTION ERROR OF ANTICOAGULANT AT THE TIME OF SAMPLING. THE APTT SHOULD NOT BE USED TO MONITOR UNFRACTIONATED HEPARIN THERAPY, THIS LABORATORY NO LONGER HAS AN ESTABLISHED THERAPEUTIC RANGE BASED ON THE APTT. IT IS RECOMMENDED THAT THE UFH - HEPARIN ASSAY (ANTI-XA ACTIVITY) BE USED FOR THIS PURPOSE. Performed By: #### 5 6101, 54439 #### [facility] [address] CBC W/DIFFon 07-07-2019 ABS BASOPHILS 0.1 10*3/uL Normal 0.0-0.2 [facility] Comment on above: Performed By: #### 5 0103 #### [facility] [address] ABS IMM GRANS 0.0 10*3/uL Normal 0.0-0.2 [facility] Comment on above: Performed By: #### 5 0103 #### [facility] [address] ABS NEUTROPHILS 4.9 10*3/uL Normal 1.6-7.6 [facility] Comment on above: Performed By: #### 5 0103 #### [facility] [address] Basophils/100 WBC (Bld) 1.0 % Normal 0.0-1.0 [facility] Comment on above: Performed By: #### 5 0103 #### [facility] [address] [place] [address], [facility] Eosinophils (Bld) [#/Vol] 0.2 10*3/uL Normal 0.0-0.5 [facility] Comment on above: Performed By: #### 5 0103 #### [facility] [address] [place] [address], [facility] Eosinophils/100 WBC (Bld) 3.0 % Normal 0.0-6.0 [facility] Comment on above: Performed By: #### 5 0103 #### [facility] [address] [facility] [place] [address], [facility] Erythrocyte distribution width (RBC) [Ratio] 13.3 % Normal 11.5-15.0 [facility] Comment on above: Performed By: #### 5 0103 #### [facility] [address] [facility] [place] [address], [facility] Hematocrit (Bld) [Volume fraction] 36.9 % Normal 36.0-45.0 [facility] Comment on above: Performed By: #### 5 0103 #### [facility] [address] [facility] [place] [address], [facility] Hemoglobin (Bld) [Mass/Vol] 12.2 g/dL Normal 12.0-15.0 [facility] Comment on above: Performed By: #### 5 0103 #### [facility] [address] [facility] [place] [place] [address], [facility] IMMATURE GRANS 0.5 % Normal 0.0-1.0 [facility] Comment on above: Performed By: #### 5 0103 #### [facility] [address] [facility] [place] [place] [address], [facility] Lymphocytes (Bld) [#/Vol] 2.0 10*3/uL Normal 1.2-4.0 [facility] Comment on above: Performed By: #### 5 0103 #### [facility] [address] [place] [id number], [facility] Lymphocytes/100 WBC (Bld) 25.3 % Normal 20.0-45.0 [facility] Comment on above: Performed By: #### 5 0103 #### [facility] [address] [facility] [place] [place] [address], [facility] MCH (RBC) [Entitic mass] 31.4 pg Normal 27.0-33.0 [facility] Comment on above: Performed By: #### 5 0103 #### [facility] [address] [facility] [place] [place] [address], [facility] MCHC (RBC) [Mass/Vol] 33.1 g/dL Normal 32.0-35.0 [facility] Comment on above: Performed By: #### 5 3 #### [facility] [address] [facility] [place] [address], [facility] MCV (RBC) [Entitic vol] 95.1 fL Normal 82.0-98.0 [facility] Comment on above: Performed By: #### 5 3 #### [facility] [address] [facility] [place] [address], [facility] Monocytes (Bld) [#/Vol] 0.6 10*3/uL Normal 0.1-1.0 [facility] Comment on above: Performed By: #### 5 3 #### [facility] [address] [facility] [place] [address], [facility] MONOS 7.3 % Normal 5.0-12.0 [facility] Comment on above: Performed By: #### 5 3 #### [facility] [address] [facility] Neutrophils/100 WBC (Bld) 62.9 % Normal 40.0-72.0 [facility] Comment on above: Performed By: #### 5 3 #### [facility] [address] [place] [address], [facility] Nucleated RBC/100 WBC (Bld) [Ratio] 0 % Normal 0-0 [facility] Comment on above: Performed By: #### 5 102 #### [facility] [address] [place] [id number], [facility] PLAT CNT 392 10*3/uL Normal 150-400 [facility] Comment on above: Performed By: #### 5 102 #### [facility] [address] [place] [address], [facility] RBC (Bld) [#/Vol] 3.88 10*6/uL Normal 3.80-5.00 [facility] Comment on above: Performed By: #### 102 #### [facility] [address] [place] [address], [facility] WBC (Bld) [#/Vol] 7.72 10*3/uL Normal 4.00-10.60 [facility] Comment on above: Performed By: #### 102 #### [facility] [address] [place] [address], [facility] COMP METABOLIC PANELon 07-07 Albumin [Mass/Vol] 3.9 g/dL Normal 3.5-5.7 [facility] Comment on above: Performed By: #### 0 0121 #### [facility] [address] [place] [address], [facility] ALKALINE PHOSPH 58 IU/L Normal 34-104 [facility] Comment on above: Performed By: #### 0 0121 #### [facility] [address] [place] [address], [facility] ALT [Catalytic activity/Vol] 55 U/L High 7-52 [facility] Comment on above: Performed By: #### 0 0121 #### [facility] [address] [place] [address], [facility] AST [Catalytic activity/Vol] 39 U/L Normal 13-39 [facility] Comment on above: Performed By: #### 0 0121 #### [facility] [address] [place] [address], [place] Bilirubin [Mass/Vol] 0.4 mg/dL Normal 0.3-1.0 [facility] Comment on above: Performed By: #### 0 0121 #### [facility] [address] [place] [address], [place] Calcium [Mass/Vol] 9.0 mg/dL Normal 8.6-10.3 [facility] Comment on above: Performed By: #### 0 0121 #### [facility] [address] [place] [address], [place] Chloride [Moles/Vol] 104 mmol/L Normal 98-107 [facility] Comment on above: Performed By: #### 0 0121 #### [facility] [address] [place] [address], [place] CO2 [Moles/Vol] 25 mmol/L Normal 21-31 [facility] Comment on above: Performed By: #### 0 0121 #### [facility] [address] [place] [address], [place] Creatinine [Mass/Vol] 0.81 mg/dL Normal 0.60-1.20 [facility] Comment on above: Performed By: #### 0 0121 #### [facility] [address] [place] [address], [place] GFR/1.73 sq M predicted among blacks MDRD (S/P/Bld) [Vol rate/Area] mL/min/{1.73_m2} Normal >60 [facility] Comment on above: Performed By: #### 0 0121 #### [facility] [address] [place] [address], [place] GFR/1.73 sq M predicted among non-blacks MDRD (S/P/Bld) [Vol rate/Area] mL/min/{1.73_m2} Normal >60 [facility] Comment on above: Performed By: #### 0 0121 #### [facility] [address] [facility] [place] [address], [facility] Glucose [Mass/Vol] 112 mg/dL High 70-100 [facility] Comment on above: Performed By: #### 0 0121 #### [facility] [address] [facility] [place] [address], [facility] Potassium [Moles/Vol] 3.5 mmol/L Normal 3.5-5.1 [facility] Comment on above: Performed By: #### 0 0121 #### [facility] [address] [place] [address], [facility] Protein [Mass/Vol] 6.9 g/dL Normal 6.0-8.3 [facility] Comment on above: Performed By: #### 0 0121 #### [facility] [address] [place] [address], [facility] Sodium [Moles/Vol] 134 mmol/L Low 136-145 [facility] Comment on above: Performed By: #### 0 0121 #### [facility] [address] [place] [address], [facility] Urea nitrogen [Mass/Vol] 10 mg/dL Normal 7-25 [facility] Comment on above: Performed By: #### 0 0121 #### [facility] [address] [place] [address], [facility] CT 3D LOWER EXTREMITY WO CON TRAST RIGHTon 07-07-2019 CT 3D LOWER EXTREMITY WO CONTRAST RIGHT [facility] Department of Radiology [address] [place] [id number] Patient Name: LINDA ALVARADO : 1975 Sex: F Age: Race: White Pt. Location: [facility] Patient Status: I Ordered Date: 07/07/2019 2:05:00 AM Completed Date: 07/07/2019 02:30 AM Requesting Provider: CHARU ADRIAN Attending Provider: DEMARCO WREN Report Copy To: Signs & Symptoms: Fracture History: See Comments Comments: R/O Fractures, right leg from mid femur down to ankle Exam: CT 3D LOWER EXTREMITY WO CONTRAST RIGHT CT 3D LOWER EXTREMITY WO CONTRAST RIGHT 07/07/2019 2:30 AM EST SIGNS AND SYMPTOMS: Fracture TECHNOLOGIST COMMENTS: QUESTION FOR THE RADIOLOGIST: R/O Fractures, right leg from mid femur down to ankle PROTOCOL: Axial CT images of the extremity were obtained without IV contrast. TECHNIQUE: Multidetector CT axial slices of the lower extremities were obtained without IV contrast. Multiplanar reformats, MIP, volume rendered 3-D images were generated on a separate workstation and reviewed to further define anatomy and possible pathology. Appropriate CT dose lowering techniques were utilized. COMPARISON: None. FINDINGS: Suprapatellar joint effusion. Depressed lateral tibial plateau fracture. There is also another discrete fracture line involving the medial intercondylar eminence more posteriorly. Ankle mortise is preserved. Multiple right The fracture extends into the lateral tibial metaphysis in a nondisplaced manner. Joint effusion with possible hemarthrosis or lipohemarthrosis. Ankle and syndesmosis intact. IMPRESSION: Depressed lateral tibial plateau fracture. Posterior depression measures 3 x 2 cm, with maximum depth approaching 1 cm Medial intracondylar fracture is nondisplaced. Approved by:Janet Harrington on 07/07/2019 2:50 AM EST. I, Ying Enriquez, have reviewed the images and report and concur with these findings. Electronically signed by:Ying Enriquez. Transcribed by: [email or web address], User Resident: JANET HARRINGTON Electronically Signed by: YING ENRIQUEZ @ 07/07/2019 07:01 AM I personally read this/these film(s) with this resident Normal [facility] Comment on above: Order Comment: R/O F ractures, right leg from mid femur down to ankle KNEE RIGHT 1 OR 2 [facility] KNEE RIGHT 1 OR 2 S [facility] Department of Radiology [address] [place] [id number] Patient Name: LINDA ALVARADO : 1975 Sex: F Age: Race: White Pt. Location: [id number] Patient Status: I Ordered Date: 07/07/2019 7:20:00 AM Completed Date: 07/07/2019 01:35 PM Requesting Provider: IAN KU Attending Provider: IAN KU Report Copy To: Signs & Symptoms: orif tibial plateau right, possible ex-fix History: orif tibial plateau right, possible ex-fix Comments: orif tibial plateau right, possible ex-fix Exam: KNEE RIGHT 1 OR 2 [facility] KNEE RIGHT 1 OR 2 [facility] 07/07/2019 1:35 PM EST SIGNS AND SYMPTOMS: orif tibial plateau right, possible ex-fix TECHNOLOGIST COMMENTS: Intra op right knee, ORIF tibial plateau, with Dr. Ku, 48 sec of fluoro used QUESTION FOR THE RADIOLOGIST: orif tibial plateau right, possible ex-fix PROTOCOL: AP(PA) and Lateral views were obtained. COMPARISON: None FINDINGS: Soft tissues: Bones: Joints: IMPRESSION: Documentation Electronically signed by:Ying Enriquez. Transcribed by: [email or web address], User Resident: Electronically Signed by: YING ENRIQUEZ @ 07/07/2019 01:40 PM Normal [facility] Comment on above: Order Comment: orif tibial plateau right, possible ex-fix Operative Reporton 9 Operative Report MR#: [id number] I [facility] Pt. Name: Linda Alvarado Room #: [id number] Discharge Date: Birthdate: 1975 OPERATIVE REPORT DATE OF SURGERY: 07/07/2019 SURGEON: Ian Ku M.D. ASSISTANTS: 1. Maye Cruz M.D. 2. eBckie Mcrae M.D. 3. Timoteo Manzano M.D. PREOPERATIVE DIAGNOSIS: Right Schatzker II tibial plateau fracture. POSTOPERATIVE DIAGNOSES: 1. Right Schatzker II tibial plateau fracture. 2. Medial collateral ligament grade 2 sprain. PROCEDURES PERFORMED: Open reduction and internal fixation of right lateral tibial plateau, open repair right lateral meniscus. ANESTHESIA: General. FLUIDS: As per anesthesia records. ESTIMATED BLOOD LOSS: 75 mL. DRAINS: None. COMPLICATIONS: None. SPECIMENS: None. IMPLANTS: [employer] 3.5 mm 6-hole lateral tibial plateau plate with 10 locking and nonlocking screws, [employer] AccuFill. EXPLANTS: None. OPERATIVE INDICATIONS: The patient is a 44-year-old female, who presented to us with right knee pain after a fall from slipping on water last evening. She was found on imaging studies to have a right Schatzker II tibial plateau fracture. She was therefore deemed an appropriate candidate to proceed to the operating room for open reduction and internal fixation versus external fixation of her fracture. DESCRIPTION OF PROCEDURE: The patient was greeted in the preoperative holding area by the operating surgeon. The patient's right lower extremity was marked with the operating surgeon's initials. Informed consent was obtained and all questions were answered. Prophylactic antibiotics were administered. The patient was taken back to the operating theater and placed in the supine position on the operating table. Anesthesia was induced without complication. The right lower extremity was prepped and draped in normal sterile fashion. A time-out was performed confirming correct patient, correct procedure, and correct laterality. We began by exsanguinating the limb with the Esmarch, inflating the tourniquet to 300 mmHg. We then proceeded to do an exam under fluoroscopy of the knee, subjecting the MCL to valgus stress. The patient was noted to have some opening. We therefore deemed it appropriate to place her in a hinged knee brace locked in extension at the conclusion of the procedure. Moving on, we proceeded to make a 7 cm curvilinear incision just lateral to the tibial crest. The subcutaneous tissues were sharply dissected down to the level of the tibialis anterior fascia. This was sharply split with a knife and the muscle belly elevated from the tibial shaft with a Becerril. We extended our deep dissection proximally and performed our sub-meniscal arthrotomy with a #10 blade. By placing their stress on the knee, we were able to achieve good visualization of our articular surface. She was noted to have significant depression, so we proceeded to drill the anterolateral tibial cortex with the 2.5 mm drill bit. We then inserted a combination of curettes and tamps and lightly malleted the articular surface back into place. When we were satisfied with the position both visually and on fluoroscopy in the AP and lateral planes, we proceeded to inject 5 mL of [employer] AccuFill Calcium Triphosphate. After giving us adequate dried time, we selected a Kelli 6 hole 3.5 mm lateral tibial plateau plate. After confirming position of the plate on both the AP and lateral planes, we proceeded to drill, measure, and fill the proximal locking holes with 70 mm locking screws. We then moved to the distal fragment, where we drilled, measured, and filled with a nonlocking screw followed by subsequent locking screws. Again, we confirmed our reduction in both the AP and lateral planes. When all drill holes excepting 1 had been filled with appropriate length screws, final images were obtained demonstrating appropriate length of all screws and reduction of the articular surface. We proceeded to copiously irrigate the wound with Betadine and normal saline. We then turned our attention to the lateral meniscus, which was noted to have a circumferential tear throughout the posterior horn and body. This was repaired in simple fashion with 0 Vicryl suture. We then passed an additional 0 Vicryl suture through the anterior horn of the meniscus, which had been detached and proceeded to shuttle this medial to the patellar tendon with a Jim needle. The suture limbs were then tied over the capsule, reducing our meniscus back to the articular surface in appropriate fashion. Additional peripheral sutures were placed through the meniscus with 0 Vicryl before we closed our capsule with #1 suture. Closure was then begun using 0 Vicryl in the subcutaneous fat, 3-0 Vicryl in the deep dermal layer, and 3-0 Novafil in the skin. The wounds were cleansed and a sterile dry dressing applied with Xeroform, 4x4s, ABD, Kerlix, and Chun wrap. The patient was placed into a hinged knee brace locked in extension. She was then awoken from anesthesia without complication and transferred to the PACU in stable condition. POSTOPERATIVE PLAN: The patient will remain nonweightbearing to the right lower extremity. She will maintain her hinged knee brace locked in extension until followup and to protect her MCL injury. She will follow up in 10-14 days after hospital discharge. Dr. Ku was present for all critical portions of the procedure and otherwise immediately available to assist at all times. Electronically Signed by: Ian Ku M.D. 07/08/2019 04:36 P Ian Ku M.D. I was present for the cabrales and critical portions and I was otherwise immediately available to assist. Date Dict: 07/07/2019/12:02 P/Maye Cruz MD Date Trans: 07/07/2019 01:02 P/kelin [id number] cc: Elver Mendenhall M.D. [id number] [facility] [address] Leslye Doss M.D. Timmy Mendoza...do Not Send [address] [facility] [address] Normal [facility] POC GLUCOSE LABon 07-07-2019 Glucose [Mass/Vol] 92 mg/dL Normal 70-100 [facility] Comment on above: Performed By: #### 8 [id number] #### [facility] [address] [place] [address], [facility] POC URINE PREGNANCYon 2018 Beta HCG ( test) Ql (U) Negative Normal NEGATIVE [facility] Comment on above: Result Comment: Perf ormed in Emergency Department. Performed By: #### 8 [id number] #### [facility] [address] [place] [address], [facility] PROTHROMBIN TIMEon 9 INR Coag (PPP) [Relative time] 1.12 {INR} Normal 0.91-1.16 [facility] Comment on above: Result Comment: ACCC P RECOMMENDED INR FOR WARFARIN THERAPY ------- ------- CONDITION INR PROPHYLAXIS OF VENOUS THROMBOSIS 2-3 (HIGH-RISK SURGERY) TREATMENT OF VENOUS THROMBOSIS 2-3 TREATMENT OF PULMONARY EMBOLISM 2-3 PREVENTION OF SYSTEMIC EMBOLISM: 2-3 ACUTE MYOCARDIAL INFARCTION TISSUE HEART VALVES VALVULAR HEART DISEASE ATRIAL FIBRILLATION RECURRENT SYSTEMIC EMBOLISM MECHANICAL HEART VALVE 2.5-3.5 FROM: ORAL ANTICOAGULANTS. MECHANISM OF ACTION, CLINICAL EFFECTIVENESS, AND OPTIMAL THERAPEUTIC RANGE. CHEST 1995;108:231S-246S. Performed By: #### 5 6101, [id number] #### [facility] [address] [place] [address], [facility] PT Coag (PPP) [Time] 14.5 s Normal 12.3-14.8 [facility] Comment on above: Result Comment: ALL RESULTS MUST BE INTERPRETED WITH RESPECT TO BLOOD DRAWING ARTIFACT OR DILUTION ERROR OF ANTICOAGULANT AT THE TIME OF SAMPLING. Performed By: #### 5 6101, [id number] #### [facility] [address] [facility] [place] [address], [facility] RBC'S 2 UNITSon 07-07-2019 CROSSMATCH INTERP 1 COMP Normal [facility] Comment on above: Performed By: #### 8 6002 #### [facility] [address] [place] [address], [place] CROSSMATCH INTERP 2 COMP Normal [facility] Comment on above: Performed By: #### 8 [id number] #### [facility] [address] [place] [address], [facility] PRODUCT CODE 1 E0336 Normal [facility] Comment on above: Performed By: #### 8 6002 #### [facility] [address] [place] [address], [facility] PRODUCT CODE 2 E0678 Normal [facility] Comment on above: Performed By: #### 8 6002 #### [facility] [address] [place] [address], [facility] PRODUCT STATUS 1 RE Normal [facility] Comment on above: Result Comment: Resu lt changed by IF on 07/11/2019 09:02. The previous value was XM. Performed By: #### 8 [id number] #### [facility] [address] [place] [address], [facility] PRODUCT STATUS 2 RE Normal [facility] Comment on above: Result Comment: Resu lt changed by IF on 07/11/2019 09:02. The previous value was XM. Performed By: #### 8 6002 #### [facility] [address] [place] [address], [place] UNIT ABO 1 O Normal [facility] Comment on above: Performed By: #### 8 6002 #### [facility] [address] [place] [address], [place] UNIT ABO 2 O Normal [facility] Comment on above: Performed By: #### 8 6002 #### [facility] [address] [place] [address], [facility] UNIT ID 1 [id number] Normal The [facility] Comment on above: Performed By: #### 8 6002 #### [facility] [address] [place] [address], [facility] UNIT ID 2 [id number] Normal [facility] Comment on above: Performed By: #### 8 6002 #### [facility] [address] [place] [address], [place] UNIT RH 1 Negative Normal [facility] Comment on above: Performed By: #### 8 6002 #### [facility] [address] [place] [address], [place] UNIT RH 2 Negative Normal [facility] Comment on above: Performed By: #### 8 6002 #### [facility] [address] [place] [address], [facility] TYPE AND SCREENon 07-07-2019 ABO INTERPRETATION O Normal [facility] Comment on above: Performed By: #### 6 2586 #### [facility] [address] [place] [address], [place] RH INTERPRETATION Negative Normal The [facility] Comment on above: Performed By: #### 6 2586 #### [facility] [address] [place] [address], [place] XR KNEE RT 4V OR >on 019 XR KNEE RT 4V OR > Patient: LINDA ALVARADO Linette Exam Date: 07/06/2019 : 1975 Gender:F Ordering : LISHA HUSAIN Admission #: [id number] Family : Order #: [id number] CLICK HERE TO VIEW EXAM RADIOLOGY REPORT PROCEDURE: RADIOGRAPH KNEE RIGHT MIN 4 VIEWS COMPARISON: None. INDICATIONS: Acute right knee pain after slipping FINDINGS: BONES: Marked impaction type fracture and fragmentation of the lateral tibial condyle with extension of fracture line crossed midline to the lateral margin of the medial tibial plateau. No fracture of the femoral condyles and patella. SOFT TISSUES: No visible soft tissue swelling or radiopaque foreign body. EFFUSION: None visible. OTHER: Negative. CONCLUSION: 1. Comminuted, displace, impaction type fracture of the lateral tibial plateau. Dictated by: Eben Proctor M.D. on 07/07/2019 at 07:25 Approved by: Eben Proctor M.D. on 07/07/2019 at 07:26 Normal [facility] ECHOCARDIO M/2D COMPLETEon 1 ECHOCARDIO M/2D COMPLETE Patient: LINDA ALVARADO Exam Date: 06/08/2019 : 1975 Gender:F Ordering : DR GITA HUSAIN Admission #: [id number] Family : Order #: [id number] CLICK HERE TO VIEW EXAM ECHOCARDIOGRAM REPORT PROCEDURE: CARDIO PULMONARY ECHOCARDIO M/2D COMP INDICATIONS: BLE edema, Abnormal EKG COMPARISON: None. DESCRIPTION: COMPLETE ECHOCARDIOGRAM Real-time transthoracic echocardiography with 2D, M-mode, spectral and color flow Doppler performed. QUALITY: Technical quality was good. LEFT VENTRICLE: Normal chamber size. Borderline left ventricular hypertrophy. LV EF: Normal left ventricular ejection fraction, (>55%). DIASTOLIC: Normal diastolic function. ATRIAL SEPTUM: Intact atrial septum. LEFT ATRIUM: Normal chamber size. RIGHT ATRIUM: Normal chamber size. RIGHT VENTRICLE: Normal chamber size. Normal right ventricle function. TRICUSPID VALVE: Normal mobility and thickness. Normal with trace regurgitation. MITRAL VALVE: Normal mobility and thickness. There is no mitral annular calcification. Trace mitral regurgitation. AORTIC VALVE: Normal trileaflet appearance. No visible sclerosis. Normal leaflet mobility. No aortic regurgitation. AORTIC ROOT: Normal diameter and appearance. PULMONIC VALVE: Normal thickness and mobility. Normal with Mild regurgitation. PERICARDIUM: No evidence of pericardial effusion. IVC: Collapes with inspirations. PLEURA: CONCLUSION: Normal echocardiogram Adult Echocardiography Procedure Report Left Ventricle LVEDD (3.7 - 5.6 cm): 3.98 cm LVESD (2.2 - 4.0 cm): 2.43 cm LVIVS thickness (0.6 - 1.2 cm): 1.09 cm LVPW thickness (0.5 - 1.0 cm): 1.19 cm e': 7.79 cm/s E - e': 15 LVOT Area (cm2): 3.80 cm2 LVOT Diameter 2.20 cm Left Ventricular Ejection Fraction: 69.90 % Left Atrium LA Volume Index (2D A2C): 20.40 ml/m2 Left Atrium Systolic Dimension: 3.00 cm Left Atrium Systolic Area(A2C): 14.10 cm2 Left Atrium Systolic Area(A4C): 17.60 cm2 Left Atrium Systolic Volume(A2C): 12776 mm3 Left Atrium Systolic Volume(A4C): 62253 mm3 Mitral Valve MV E to A Ratio: 1.30 Mitral Valve A-Wave Peak Velocity: 92.80 cm/s Mitral Valve E-Wave Peak Velocity: 117.00 cm/s Deceleration Time: 217 ms Right Ventricle Aorta AO Root Diam: 2.80 cm Aortic Valve AoV Area (Peak Sharan): 2.63 cm2 Peak Velocity(Antegrade Flow): 120.00 cm/s Peak Gradient(Antegrade Flow): 6 mm[Hg] Tricuspid Valve Pulmonic Valve Peak Velocity: 109.00 cm/s Peak Gradient: 5 mm[Hg] Right Atrium Dictated by: Elver Elmore M.D. on 06/09/2019 at 13:07 Approved by: Elver Elmore M.D. on 06/09/2019 at 13:09 Normal [facility] CBC AUTO DIFFon 05-23-2019 Basophils (Bld) [#/Vol] 0.1 103/ul Normal 0.0-0.1 [facility] Comment on above: Performed By: #### L IPA, CMP #### [facility] [address] [place] [address] Jose Gita Basophils/100 WBC (Bld) 1.4 % Normal 0.2-2.0 [facility] Comment on above: Performed By: #### L IPA, CMP #### [facility] [address] [address] Jose Gita Eosinophils (Bld) [#/Vol] 0.3 103/ul Normal 0.0-0.7 [facility] Comment on above: Performed By: #### L IPA, CMP #### [facility] [address] [id number] Jose Gita Eosinophils/100 WBC (Bld) 2.9 % Normal 0.9-7.0 [facility] Comment on above: Performed By: #### L IPA, CMP #### [facility] [address] [place], [place] [address] Jose Gita Erythrocyte distribution width (RBC) [Ratio] 13.5 % Normal 11.0-15.0 [facility] Comment on above: Performed By: #### L IPA, CMP #### [facility] [address] [place] [address] Jose Gita Hematocrit (Bld) [Volume fraction] 37.3 % Normal 36.0-48.0 [facility] Comment on above: Performed By: #### L IPA, CMP #### [facility] [address] [place] [address] Jose Gita Hemoglobin (Bld) [Mass/Vol] 12.5 g/dL Normal 12.0-16.0 [facility] Comment on above: Performed By: #### L IPA, CMP #### [facility] [address] [place] [address] Jose Gita IG # 0.05 10e3/ul Critically high 0.00-0.03 [facility] Comment on above: Performed By: #### L IPA, CMP #### [facility] [address] [place] [address] Jose Gita IG % 0.6 % Critically high 0.0-0.5 [facility] Comment on above: Performed By: #### L IPA, CMP #### [facility] [address] [place] [address] Jose Gita Lymphocytes (Bld) [#/Vol] 2.4 103/ul Normal 1.2-3.8 [facility] Comment on above: Performed By: #### L IPA, CMP #### [facility] [address] [place] [address] Jose Gita Lymphocytes/100 WBC (Bld) 27.2 % Normal 20.5-60.0 [facility] Comment on above: Performed By: #### L IPA, CMP #### [facility] [address] [place], [place] [address] Jose Gita MANUAL DIFF REQ NO Normal [facility] Comment on above: Performed By: #### L IPA, CMP #### [facility] [address] [place], [place] [address] Jose Gita MCH (RBC) [Entitic mass] 32.1 pg Normal 26.7-34.0 [facility] Comment on above: Performed By: #### L IPA, CMP #### [facility] [address] [place], [place] [address] Jose Gita MCHC (RBC) [Mass/Vol] 33.5 g/dL Normal 29.9-35.2 [facility] Comment on above: Performed By: #### L IPA, CMP #### [facility] [address] [place], [place] [address] Jose Gita MCV (RBC) [Entitic vol] 95.6 fL Normal 81.0-99.0 [facility] Comment on above: Performed By: #### L IPA, CMP #### [facility] [address] [place], [place] [address] Jose Gita Monocytes (Bld) [#/Vol] 0.8 103/ul Normal 0.3-0.8 [facility] Comment on above: Performed By: #### L IPA, CMP #### [facility] [address] [place], [place] [address] Jose Gita Monocytes/100 WBC (Bld) 8.7 % Normal 1.7-12.0 [facility] Comment on above: Performed By: #### L IPA, CMP #### [facility] [address] [place], [place] [address] Jose Gita Neutrophils (Bld) [#/Vol] 5.2 103/ul Normal 1.4-6.5 [facility] Comment on above: Performed By: #### L IPA, CMP #### [facility] [address] [place], [place] [address] Jose Gita Neutrophils/100 WBC (Bld) 59.2 % Normal 43.0-75.0 [facility] Comment on above: Performed By: #### L IPA, CMP #### [facility] [address] [id number] Jose Pelayo Platelet mean volume (Bld) [Entitic vol] 8.8 fL Critically low 9.5-13.5 [facility] Comment on above: Performed By: #### L IPA, CMP #### [facility] [address] [place], [place] [address] Josetripp Pelayo Platelets (Bld) [#/Vol] 401 103/ul Normal 150-450 [facility] Comment on above: Performed By: #### L IPA, CMP #### [facility] [address] [place], [place] [address] Jose Pelayo RBC (Bld) [#/Vol] 3.90 106/ul Critically low 4.20-5.40 [facility] Comment on above: Performed By: #### L IPA, CMP #### [facility] [address] [place], [place] [address] Josetripp Pelayo WBC (Bld) [#/Vol] 8.7 103/ul Normal 4.0-11.0 [facility] Comment on above: Performed By: #### L IPA, CMP #### [facility] [address] [place], [place] [address] Jose Pelayo D-DIMERon 05-23-2019 D-DIMER COMMENTS SEE BELOW Normal [facility] Comment on above: Result Comment: Incr eases in D-Dimer concentration observed with thromboembolic events can be variable due to localization, size, and age of the thrombus. Therefore, a thromboembolic event cannot be diagnosed with certainty on the basis of the reference range. D-Dimers may also be elevated for a variety of disorders including: advanced age, , coronary disease, cancer, liver disease, infection, inflammation, hematoma, DIC, trauma, post-surgery, diabetes, thrombolytic or anticoagulant therapy, stress, and generalizd hospitalization. Performed By: #### L IPA, CMP #### [facility] [address] [place], [place] [address] Josetripp Pelayo Fibrin D-dimer FEU IA (Bld) [Mass/Vol] 0.19 ug/mL Normal 0.19-0.50 [facility] Comment on above: Performed By: #### L IPA, CMP #### [facility] [address] [place], [place] [address] Jose Gita PREG HCG QUALon 05-23-2019 , QUAL Negative Normal NEGATIVE [facility] Comment on above: Performed By: #### L IPA, CMP #### [facility] [address] [place], [place] [address] Jose Gita PROF CHEM 8 (BAS METB)on Anion gap [Moles/Vol] 10.9 mmol/L Normal [facility] Comment on above: Performed By: #### L IPA, CMP #### [facility] [address] [place] [address] Jose Gita Calcium [Mass/Vol] 9.3 mg/dL Normal 8.4-10.2 [facility] Comment on above: Performed By: #### L IPA, CMP #### [facility] [address] [place] [address] Jose Gita Chloride [Moles/Vol] 104 mmol/L Normal 98-107 [facility] Comment on above: Performed By: #### L IPA, CMP #### [facility] [address] [place] [address] Jose Gita CO2 [Moles/Vol] 28.7 mmol/L Normal 22.0-30.0 [facility] Comment on above: Performed By: #### L IPA, CMP #### [facility] [address] [place] [address] Jose Gita Creatinine [Mass/Vol] 0.91 mg/dL Normal 0.52-1.04 [facility] Comment on above: Performed By: #### L IPA, CMP #### [facility] [address] [place] [address] Jose Gita EGFR-AF PARAGUAYAN >60 Normal >=60 [facility] Comment on above: Performed By: #### L IPA, CMP #### [facility] [address] [place] [address] Jose Gita EGFR-NON AF PARAGUAYAN >60 Normal >=60 [facility] Comment on above: Performed By: #### L IPA, CMP #### [facility] [address] [id number] Jose Gita Glucose [Mass/Vol] 97 mg/dL Normal 74-106 [facility] Comment on above: Performed By: #### L IPA, CMP #### [facility] [address] [id number] Jose Gita Potassium [Moles/Vol] 3.6 mmol/L Normal 3.4-5.0 [facility] Comment on above: Performed By: #### L IPA, CMP #### [facility] [address] [address] Jose Gita Sodium [Moles/Vol] 140 mmol/L Normal 137-145 [facility] Comment on above: Performed By: #### L IPA, CMP #### [facility] [address] [address] Jose Gita Urea nitrogen [Mass/Vol] 10.0 mg/dL Normal 7.0-17.0 [facility] Comment on above: Performed By: #### L IPA, CMP #### [facility] [address] [place], [place] [address] Jose Gita Urea nitrogen/Creatinine [Mass ratio] 11.0 mg/mg Normal [facility] Comment on above: Performed By: #### L IPA, CMP #### [facility] [address] [id number] Josetripp Cabanen PROTIMEon 05-23-2019 INR Coag (PPP) [Relative time] 1.03 {INR} Normal [facility] Comment on above: Performed By: #### L IPA, CMP #### [facility] [address] [place], [place] [address] Jose Gita PT Coag (PPP) [Time] SEE BELOW Normal [facility] Comment on above: Result Comment: SELENE RED INR: 2.0 - 3.0 CONDITIONS NOT LISTED BELOW 2.5 - 3.5 FOR PROSTHETIC HEART VALVE REPLACEMENT 2.5 - 3.5 RECURRENT THROMBOSIS Performed By: #### L IPA, CMP #### [facility] [address] [place] [address] Jose Gita PT Coag (PPP) [Time] PLEASE NOTE: NORMAL RANGE CHANGE 05-20-2014 DUE TO REAGENT LOT CHANGE Normal [facility] Comment on above: Performed By: #### L IPA, CMP #### [facility] [address] [place] [address] Jose Gita PT Coag (PPP) [Time] 10.7 s Normal 9.0-11.6 [facility] Comment on above: Performed By: #### L IPA, CMP #### [facility] [address] [place] [address] Jose Gita PTTon 05-23-2019 aPTT Coag (Bld) [Time] 27.8 s Normal 22.3-36.2 [facility] Comment on above: Performed By: #### L IPA, CMP #### [facility] [address] [place] [address] Jose Gita aPTT Coag (Bld) [Time] PLEASE NOTE: NORMAL RANGE CHANGE 07-27-2015 DUE TO REAGENT LOT CHANGE Normal [facility] Comment on above: Performed By: #### L IPA, CMP #### [facility] [address] [place] [address] Jose Gita CBC AUTO DIFFon 12-28-2018 Basophils (Bld) [#/Vol] 0.1 103/ul Normal 0.0-0.1 [facility] Comment on above: Performed By: #### C BC #### [facility] [address] [place] [address] Jose Gita Basophils/100 WBC (Bld) 1.2 % Normal 0.2-2.0 [facility] Comment on above: Performed By: #### C BC #### [facility] [address] [place] [address] Jose Gita Eosinophils (Bld) [#/Vol] 0.2 103/ul Normal 0.0-0.7 [facility] Comment on above: Performed By: #### C BC #### [facility] [address] [place] [address] Jose Gita Eosinophils/100 WBC (Bld) 5.9 % Normal 0.9-7.0 [facility] Comment on above: Performed By: #### C BC #### [facility] [address] [place], [place] [address] Jose Gita Erythrocyte distribution width (RBC) [Ratio] 13.7 % Normal 11.0-15.0 [facility] Comment on above: Performed By: #### C BC #### [facility] [address] [place] [address] Jose Gita Hematocrit (Bld) [Volume fraction] 36.3 % Normal 36.0-48.0 [facility] Comment on above: Performed By: #### C BC #### [facility] [address] [place] [address] Jose Gita Hemoglobin (Bld) [Mass/Vol] 12.1 g/dL Normal 12.0-16.0 [facility] Comment on above: Performed By: #### C BC #### [facility] [address] [place] [address] Jose Gita IG # 0.01 10e3/ul Normal 0.00-0.03 [facility] Comment on above: Performed By: #### C BC #### [facility] [address] [place] [address] Jose Gita IG % 0.2 % Normal 0.0-0.5 [facility] Comment on above: Performed By: #### C BC #### [facility] [address] [place] [address] Jose Gita Lymphocytes (Bld) [#/Vol] 1.2 103/ul Normal 1.2-3.8 [facility] Comment on above: Performed By: #### C BC #### [facility] [address] [place], [place] [address] Jose Gita Lymphocytes/100 WBC (Bld) 30.3 % Normal 20.5-60.0 [facility] Comment on above: Performed By: #### C BC #### [facility] [address] [place] [address] Jose Gita MANUAL DIFF REQ NO Normal [facility] Comment on above: Performed By: #### C BC #### [facility] [address] [place], [place] [address] Josetripp Pelayo MCH (RBC) [Entitic mass] 32.2 pg Normal 26.7-34.0 [facility] Comment on above: Performed By: #### C BC #### [facility] [address] [place], [place] [address] Josetripp Pelayo MCHC (RBC) [Mass/Vol] 33.3 g/dL Normal 29.9-35.2 [facility] Comment on above: Performed By: #### C BC #### [facility] [address] [place], [place] [address] Josetripp Pelayo MCV (RBC) [Entitic vol] 96.5 fL Normal 81.0-99.0 [facility] Comment on above: Performed By: #### C BC #### [facility] [address] [place] [address] Jose Gita Monocytes (Bld) [#/Vol] 0.4 103/ul Normal 0.3-0.8 [facility] Comment on above: Performed By: #### C BC #### [facility] [address] [place], [place] [address] Jose Gita Monocytes/100 WBC (Bld) 9.4 % Normal 1.7-12.0 [facility] Comment on above: Performed By: #### C BC #### [facility] [address] [place] [address] Jose Gita Neutrophils (Bld) [#/Vol] 2.2 103/ul Normal 1.4-6.5 [facility] Comment on above: Performed By: #### C BC #### [facility] [address] [place], [place] [address] Jose Gita Neutrophils/100 WBC (Bld) 53.0 % Normal 43.0-75.0 [facility] Comment on above: Performed By: #### C BC #### [facility] [address] [place], [place] [address] Jose Gita Platelet mean volume (Bld) [Entitic vol] 8.6 fL Critically low 9.5-13.5 [facility] Comment on above: Performed By: #### C BC #### [facility] [address] [place], [place] [address] Jose Gita Platelets (Bld) [#/Vol] 279 103/ul Normal 150-450 [facility] Comment on above: Performed By: #### C BC #### [facility] [address] [place], [place] [address] Jose Gita RBC (Bld) [#/Vol] 3.76 106/ul Critically low 4.20-5.40 [facility] Comment on above: Performed By: #### C BC #### [facility] [address] [place], [place] [address] Jose Gita WBC (Bld) [#/Vol] 4.1 103/ul Normal 4.0-11.0 [facility] Comment on above: Performed By: #### C BC #### [facility] [address] [place], [place] [address] Jose Gita PROF CHEM 8 (BAS METB)on Anion gap [Moles/Vol] 10.6 mmol/L Normal [facility] Comment on above: Performed By: #### B MP #### [facility] [address] [place], [place] [address] Jose Gita Calcium [Mass/Vol] 8.1 mg/dL Critically low 8.4-10.2 [facility] Comment on above: Performed By: #### B MP #### [facility] [address] [place], [place] [address] Jose Gita Chloride [Moles/Vol] 111 mmol/L Critically high 98-107 [facility] Comment on above: Performed By: #### B MP #### [facility] [address] [place], [place] [address] Jose Gita CO2 [Moles/Vol] 24.7 mmol/L Normal 22.0-30.0 [facility] Comment on above: Performed By: #### B MP #### [facility] [address] [id number] Jose Gita Creatinine [Mass/Vol] 0.80 mg/dL Normal 0.52-1.04 [facility] Comment on above: Performed By: #### B MP #### [facility] [address] [id number] Jose Gita EGFR-AF PARAGUAYAN >60 Normal >=60 [facility] Comment on above: Performed By: #### B MP #### [facility] [address] [id number] Jose Gita EGFR-NON AF PARAGUAYAN >60 Normal >=60 [facility] Comment on above: Performed By: #### B MP #### [facility] [address] [place], [place] [address] Jose Gita Glucose [Mass/Vol] 93 mg/dL Normal 74-106 [facility] Comment on above: Performed By: #### B MP #### [facility] [address] [place] [address] Jose Gita Potassium [Moles/Vol] 4.3 mmol/L Normal 3.4-5.0 [facility] Comment on above: Performed By: #### B MP #### [facility] [address] [place], [place] [address] Jose Gita Sodium [Moles/Vol] 142 mmol/L Normal 137-145 [facility] Comment on above: Performed By: #### B MP #### [facility] [address] [place], [place] [address] Jose Gita Urea nitrogen [Mass/Vol] 6.0 mg/dL Critically low 7.0-17.0 [facility] Comment on above: Performed By: #### B MP #### [facility] [address] [place], [place] [address] Jose Gita Urea nitrogen/Creatinine [Mass ratio] 7.5 mg/mg Normal [facility] Comment on above: Performed By: #### B MP #### [facility] [address] [place], [place] [address] Jose Gita CBC AUTO DIFFon 12-27-2018 Basophils (Bld) [#/Vol] 0.0 103/ul Normal 0.0-0.1 [facility] Comment on above: Performed By: #### C BC #### [facility] [address] [place], [place] [address] Jose Gita Basophils/100 WBC (Bld) 0.4 % Normal 0.2-2.0 [facility] Comment on above: Performed By: #### C BC #### [facility] [address] [place] [address] Jose Gita Eosinophils (Bld) [#/Vol] 0.1 103/ul Normal 0.0-0.7 [facility] Comment on above: Performed By: #### C BC #### [facility] [address] [place] [address] Jose Gita Eosinophils/100 WBC (Bld) 1.3 % Normal 0.9-7.0 [facility] Comment on above: Performed By: #### C BC #### [facility] [address] [place] [address] Josetripp Pelayo Erythrocyte distribution width (RBC) [Ratio] 13.4 % Normal 11.0-15.0 [facility] Comment on above: Performed By: #### C BC #### [facility] [address] [place] [address] Jose Gita Hematocrit (Bld) [Volume fraction] 37.0 % Normal 36.0-48.0 [facility] Comment on above: Performed By: #### C BC #### [facility] [address] [place] [address] Jose Gita Hemoglobin (Bld) [Mass/Vol] 12.9 g/dL Normal 12.0-16.0 [facility] Comment on above: Result Comment: repe ated slide reviewed ts Performed By: #### C BC #### [facility] [address] [place], [place] [address] Jose Gita IG # 0.02 10e3/ul Normal 0.00-0.03 [facility] Comment on above: Performed By: #### C BC #### [facility] [address] [address] Jose Gita IG % 0.3 % Normal 0.0-0.5 [facility] Comment on above: Performed By: #### C BC #### [facility] [address] [place] [address] Jose Gita Lymphocytes (Bld) [#/Vol] 0.7 103/ul Critically low 1.2-3.8 [facility] Comment on above: Performed By: #### C BC #### [facility] [address] [place] [address] Jose Gita Lymphocytes/100 WBC (Bld) 9.2 % Critically low 20.5-60.0 [facility] Comment on above: Performed By: #### C BC #### [facility] [address] [place] [address] Josetripp Cabanen MANUAL DIFF REQ NO Normal [facility] Comment on above: Performed By: #### C BC #### [facility] [address] [place] [address] Jose Gita MCH (RBC) [Entitic mass] 32.4 pg Normal 26.7-34.0 [facility] Comment on above: Performed By: #### C BC #### [facility] [address] [place], [place] [address] Jose Gita MCHC (RBC) [Mass/Vol] 34.9 g/dL Normal 29.9-35.2 [facility] Comment on above: Performed By: #### C BC #### [facility] [address] [place] [address] Jose Gita MCV (RBC) [Entitic vol] 93.0 fL Normal 81.0-99.0 [facility] Comment on above: Performed By: #### C BC #### [facility] [address] [place], [place] [address] Jose Gita Monocytes (Bld) [#/Vol] 0.3 103/ul Normal 0.3-0.8 [facility] Comment on above: Performed By: #### C BC #### [facility] [address] [place], [place] [address] Jose Gita Monocytes/100 WBC (Bld) 3.6 % Normal 1.7-12.0 [facility] Comment on above: Performed By: #### C BC #### [facility] [address] [place] [address] Jose Gita Neutrophils (Bld) [#/Vol] 6.4 103/ul Normal 1.4-6.5 [facility] Comment on above: Performed By: #### C BC #### [facility] [address] [place], [place] [address] Jose Gita Neutrophils/100 WBC (Bld) 85.2 % Critically high 43.0-75.0 [facility] Comment on above: Performed By: #### C BC #### [facility] [address] [place], [place] [address] Jose Gita Platelet mean volume (Bld) [Entitic vol] 8.7 fL Critically low 9.5-13.5 [facility] Comment on above: Performed By: #### C BC #### [facility] [address] [place], [place] [address] Jose Gita Platelets (Bld) [#/Vol] 401 103/ul Normal 150-450 [facility] Comment on above: Performed By: #### C BC #### [facility] [address] [place], [place] [address] Jose Gita RBC (Bld) [#/Vol] 3.98 106/ul Critically low 4.20-5.40 [facility] Comment on above: Performed By: #### C BC #### [facility] [address] [place], [place] [address] Jose Gita WBC (Bld) [#/Vol] 7.5 103/ul Normal 4.0-11.0 [facility] Comment on above: Performed By: #### C BC #### [facility] [address] [place], [place] [address] Josetripp Pelayo POTASSIUMon 12-27-2018 Potassium [Moles/Vol] 3.9 mmol/L Normal 3.4-5.0 [facility] Comment on above: Performed By: #### K #### [facility] [address] [id number] Josetripp Cabanen PROF 14(COMP METB)on 019 Albumin [Mass/Vol] 3.2 g/dL Critically low 3.5-5.0 [facility] Comment on above: Performed By: #### C MP #### [facility] [address] [id number] Jose Gita Albumin/Globulin [Mass ratio] 1.1 {ratio} Normal [facility] Comment on above: Performed By: #### C MP #### [facility] [address] [phone] Jose Gita ALP [Catalytic activity/Vol] 50 U/L Normal 38-126 [facility] Comment on above: Performed By: #### C MP #### [facility] [address] [place] [address] Jose Gita ALT [Catalytic activity/Vol] 60 U/L Critically high 9-52 [facility] Comment on above: Performed By: #### C MP #### [facility] [address] [place], [place] [address] Jose Gita Anion gap [Moles/Vol] 8.7 mmol/L Normal [facility] Comment on above: Performed By: #### C MP #### [facility] [address] [place] [address] Jose Gita AST [Catalytic activity/Vol] 41 U/L Critically high 14-36 [facility] Comment on above: Performed By: #### C MP #### [facility] [address] [place], [place] [address] Jose Gita Bilirubin Ql (U) 0.5 mg/dL Normal 0.2-1.3 [facility] Comment on above: Performed By: #### C MP #### [facility] [address] [place], [place] [address] Jose Gita Calcium [Mass/Vol] 7.7 mg/dL Critically low 8.4-10.2 [facility] Comment on above: Performed By: #### C MP #### [facility] [address] [address] Jose Gita Chloride [Moles/Vol] 107 mmol/L Normal 98-107 [facility] Comment on above: Performed By: #### C MP #### [facility] [address] [id number] Jose Gita CO2 [Moles/Vol] 27.1 mmol/L Normal 22.0-30.0 [facility] Comment on above: Performed By: #### C MP #### [facility] [address] [address] Jose Gita Creatinine [Mass/Vol] 0.93 mg/dL Normal 0.52-1.04 [facility] Comment on above: Performed By: #### C MP #### [facility] [address] [place] [address] Jose Gita EGFR-AF PARAGUAYAN >60 Normal >=60 [facility] Comment on above: Performed By: #### C MP #### [facility] [address] [address] Jose Gita EGFR-NON AF PARAGUAYAN >60 Normal >=60 [facility] Comment on above: Performed By: #### C MP #### [facility] [address] [place], [place] [address] Jose Gita Globulin (S) [Mass/Vol] 3.0 g/dL Normal [facility] Comment on above: Performed By: #### C MP #### [facility] [address] [place] [address] Jose Gita Glucose [Mass/Vol] 114 mg/dL Critically high 74-106 [facility] Comment on above: Performed By: #### C MP #### [facility] [address] [address] Jose Gita Potassium [Moles/Vol] 2.8 mmol/L Critically low 3.4-5.0 [facility] Comment on above: Result Comment: test repeated critical value verified Performed By: #### C MP #### [facility] [address] [place] [address] Jose Gita Protein [Mass/Vol] 6.2 g/dL Normal 6.1-8.2 [facility] Comment on above: Performed By: #### C MP #### [facility] [address] [address] Jose Gita Sodium [Moles/Vol] 141 mmol/L Normal 137-145 [facility] Comment on above: Performed By: #### C MP #### [facility] [address] [id number] Jose Gita Urea nitrogen [Mass/Vol] 16.0 mg/dL Normal 7.0-17.0 [facility] Comment on above: Performed By: #### C MP #### [facility] [address] [id number] Jose Gita Urea nitrogen/Creatinine [Mass ratio] 17.2 mg/mg Normal [facility] Comment on above: Performed By: #### C MP #### [facility] [address] [place], [place] [address] Jose Gita XR ABD FLAT UP/PA Natalya 12-27 XR ABD FLAT UP/PA CH Patient: LINDA ALVARADO Exam Date: 12/26/2018 : 1975 Gender:F Ordering : DR. NICHOLAS BOLTON . Admission #: [id number] Family : Order #: [id number] CLICK HERE TO VIEW EXAM RADIOLOGY REPORT PROCEDURE: RADIOGRAPH ABDOMEN FLAT/UPRIGHT AND PA CHEST COMPARISON: XR CHEST 2 V, 02/18/2018. INDICATIONS: Acute nausea and vomiting for one day FINDINGS: LUNGS: No infiltrate, pneumothorax, or pleural effusion. Low lung volumes MEDIASTINUM: No abnormal widening. BOWEL GAS PATTERN: Paucity of bowel gas. FREE AIR: None. CALCIFICATIONS: None significant. BONES: No fracture or visible bone lesion. Rotatory levo curvature OTHER: Negative. CONCLUSION: 1. Clear lungs 2. Paucity of bowel gas, indeterminate bowel gas pattern Dictated by: Jane Nicolas M.D. on 12/27/2018 at 07:35 Approved by: Jane Nciolas M.D. on 12/27/2018 at 07:37 Normal [facility] CBC AUTO DIFFon 12-26-2018 Basophils (Bld) [#/Vol] 0.1 103/ul Normal 0.0-0.1 [facility] Comment on above: Performed By: #### C BC #### [facility] [address] [place], [place] [address] Jose Gita Basophils/100 WBC (Bld) 0.7 % Normal 0.2-2.0 [facility] Comment on above: Performed By: #### C BC #### [facility] [address] [place], [place] [address] Jose Gita Eosinophils (Bld) [#/Vol] 0.3 103/ul Normal 0.0-0.7 [facility] Comment on above: Performed By: #### C BC #### [facility] [address] [place], [place] [address] Jose Gita Eosinophils/100 WBC (Bld) 2.2 % Normal 0.9-7.0 [facility] Comment on above: Performed By: #### C BC #### [facility] [address] [place] [address] Jose Gita Erythrocyte distribution width (RBC) [Ratio] 13.5 % Normal 11.0-15.0 [facility] Comment on above: Performed By: #### C BC #### [facility] [address] [place] [address] Jose Gita Hematocrit (Bld) [Volume fraction] 46.0 % Normal 36.0-48.0 [facility] Comment on above: Performed By: #### C BC #### [facility] [address] [place], [place] [address] Jose Gita Hemoglobin (Bld) [Mass/Vol] 15.7 g/dL Normal 12.0-16.0 [facility] Comment on above: Performed By: #### C BC #### [facility] [address] [place], [place] [address] Jose Gita IG # 0.05 10e3/ul Critically high 0.00-0.03 [facility] Comment on above: Performed By: #### C BC #### [facility] [address] [place], [place] [address] Jose Gita IG % 0.4 % Normal 0.0-0.5 [facility] Comment on above: Performed By: #### C BC #### [facility] [address] [id number] Jose Gita Lymphocytes (Bld) [#/Vol] 1.0 103/ul Critically low 1.2-3.8 [facility] Comment on above: Performed By: #### C BC #### [facility] [address] [address] Jose Gita Lymphocytes/100 WBC (Bld) 8.8 % Critically low 20.5-60.0 [facility] Comment on above: Performed By: #### C BC #### [facility] [address] [place], [place] [address] Jose Gita MANUAL DIFF REQ NO Normal [facility] Comment on above: Performed By: #### C BC #### [facility] [address] [place], [place] [address] Jose Gita MCH (RBC) [Entitic mass] 31.7 pg Normal 26.7-34.0 [facility] Comment on above: Performed By: #### C BC #### [facility] [address] [place], [place] [address] Jose Gita MCHC (RBC) [Mass/Vol] 34.1 g/dL Normal 29.9-35.2 [facility] Comment on above: Performed By: #### C BC #### [facility] [address] [place], [place] [address] Jose Gita MCV (RBC) [Entitic vol] 92.9 fL Normal 81.0-99.0 [facility] Comment on above: Performed By: #### C BC #### [facility] [address] [place], [place] [address] Jose Gita Monocytes (Bld) [#/Vol] 0.3 103/ul Normal 0.3-0.8 [facility] Comment on above: Performed By: #### C BC #### [facility] [address] [address] Jose Gita Monocytes/100 WBC (Bld) 2.8 % Normal 1.7-12.0 [facility] Comment on above: Performed By: #### C BC #### [facility] [address] [place], [place] [address] Jose Pelayo Neutrophils (Bld) [#/Vol] 9.8 103/ul Critically high 1.4-6.5 [facility] Comment on above: Performed By: #### C BC #### [facility] [address] [place], [place] [address] Jose Pelayo Neutrophils/100 WBC (Bld) 85.1 % Critically high 43.0-75.0 [facility] Comment on above: Performed By: #### C BC #### [facility] [address] [place] [address] Jose Pelayo Platelet mean volume (Bld) [Entitic vol] 8.6 fL Critically low 9.5-13.5 [facility] Comment on above: Performed By: #### C BC #### [facility] [address] [place] [address] Jose Pelayo Platelets (Bld) [#/Vol] 543 103/ul Critically high 150-450 [facility] Comment on above: Performed By: #### C BC #### [facility] [address] [place] [address] Jose Pelayo RBC (Bld) [#/Vol] 4.95 106/ul Normal 4.20-5.40 [facility] Comment on above: Performed By: #### C BC #### [facility] [address] [place] [address] Jose Pelayo WBC (Bld) [#/Vol] 11.5 103/ul Critically high 4.0-11.0 [facility] Comment on above: Performed By: #### C BC #### [facility] [address] [place] [address] Jose Pelayo LIPASEon 12-26-2018 Lipase [Catalytic activity/Vol] 186.0 U/L Normal 23.0-300.0 [facility] Comment on above: Performed By: #### L IPA, CMP #### [facility] [address] [place] [address] Jose Cabanen PROF 14(COMP METB)on 019 Albumin [Mass/Vol] 4.5 g/dL Normal 3.5-5.0 [facility] Comment on above: Performed By: #### L IPA, CMP #### [facility] [address] [id number] Jose Gita Albumin/Globulin [Mass ratio] 1.2 {ratio} Normal [facility] Comment on above: Performed By: #### L IPA, CMP #### [facility] [address] [id number] Jose Gita ALP [Catalytic activity/Vol] 65 U/L Normal 38-126 [facility] Comment on above: Performed By: #### L IPA, CMP #### [facility] [address] [address] Jose Gita ALT [Catalytic activity/Vol] 75 U/L Critically high 9-52 [facility] Comment on above: Performed By: #### L IPA, CMP #### [facility] [address] [id number] Jose Gita Anion gap [Moles/Vol] 10.7 mmol/L Normal [facility] Comment on above: Performed By: #### L IPA, CMP #### [facility] [address] [address] Jose Gita AST [Catalytic activity/Vol] 51 U/L Critically high 14-36 [facility] Comment on above: Performed By: #### L IPA, CMP #### [facility] [address] [id number] Jose Gita Bilirubin Ql (U) 0.6 mg/dL Normal 0.2-1.3 [facility] Comment on above: Performed By: #### L IPA, CMP #### [facility] [address] [id number] Jose Gita Calcium [Mass/Vol] 9.3 mg/dL Normal 8.4-10.2 [facility] Comment on above: Performed By: #### L IPA, CMP #### [facility] [address] [address] Jose Gita Chloride [Moles/Vol] 103 mmol/L Normal 98-107 [facility] Comment on above: Performed By: #### L IPA, CMP #### [facility] [address] [address] Jose Gita CO2 [Moles/Vol] 28.8 mmol/L Normal 22.0-30.0 [facility] Comment on above: Performed By: #### L IPA, CMP #### [facility] [address] [address] Jose Gita Creatinine [Mass/Vol] 1.03 mg/dL Normal 0.52-1.04 [facility] Comment on above: Performed By: #### L IPA, CMP #### [facility] [address] [place] [address] Jose Gita EGFR-AF PARAGUAYAN >60 Normal >=60 [facility] Comment on above: Performed By: #### L IPA, CMP #### [facility] [address] [place] [address] Jose Gita EGFR-NON AF PARAGUAYAN 59 mL/min/1.73m2 Critically low >=60 [facility] Comment on above: Performed By: #### L IPA, CMP #### [facility] [address] [place] [address] Jose Gita Globulin (S) [Mass/Vol] 3.7 g/dL Normal [facility] Comment on above: Performed By: #### L IPA, CMP #### [facility] [address] [address] Jose Gita Glucose [Mass/Vol] 114 mg/dL Critically high 74-106 [facility] Comment on above: Performed By: #### L IPA, CMP #### [facility] [address] [place] [address] Jose Gita Potassium [Moles/Vol] 3.5 mmol/L Normal 3.4-5.0 [facility] Comment on above: Performed By: #### L IPA, CMP #### [facility] [address] [place] [address] Jose Gita Protein [Mass/Vol] 8.2 g/dL Normal 6.1-8.2 [facility] Comment on above: Performed By: #### L IPA, CMP #### [facility] [address] [place], [place] [address] Jose Gita Sodium [Moles/Vol] 139 mmol/L Normal 137-145 [facility] Comment on above: Performed By: #### L IPA, CMP #### [facility] [address] [place], [place] [address] Jose Gita Urea nitrogen [Mass/Vol] 15.0 mg/dL Normal 7.0-17.0 [facility] Comment on above: Performed By: #### L IPA, CMP #### [facility] [address] [place], [place] [address] Jose Gita Urea nitrogen/Creatinine [Mass ratio] 14.6 mg/mg Normal [facility] Comment on above: Performed By: #### L IPA, CMP #### [facility] [address] [place], [place] [address] Jose Gita Vital Signs Date Time Vital Sign Value Performing Clinician Facility 01-30-2024 09:040 Body height 152.4 cm [facility] 01-30-2024 09:[id number] Body mass index (BMI) [Ratio] 38.7 kg/m2 [facility] 01-30-2024 [id number] Body weight 89.81 kg [facility] 01-30-2024 09:26-0400 Diastolic blood pressure 85 mm[Hg] [facility] 01-30-2024 09:26-0400 Heart rate 97 /min [facility] 01-30-2024 09:26-0400 SaO2% (BldA) [Mass fraction] 97 % [facility] 01-30-2024 09:26-0400 Systolic blood pressure 142 mm[Hg] [facility] 01-09-2024 15:16-0400 Body height 152.4 cm [facility] 01-09-2024 15:16-0400 Body mass index (BMI) [Ratio] 37.8 kg/m2 [facility] 01-09-2024 15:16-0400 Body temperature 97.7 [degF] [facility] 01-09-2024 15:16-0400 Body weight 87.99 kg [facility] 01-09-2024 15:16-0400 Diastolic blood pressure 80 mm[Hg] [facility] 01-09-2024 15:16-0400 Heart rate 90 /min [facility] 01-09-2024 15:16-0400 Respiratory rate 18 /min [facility] 01-09-2024 15:16-0400 SaO2% (BldA) [Mass fraction] 99 % [facility] 01-09-2024 15:16-0400 Systolic blood pressure 131 mm[Hg] [facility] 12-25-2023 17:21-0400 Body height 152.4 cm [facility] 12-25-2023 17:21-0400 Body mass index (BMI) [Ratio] 30.2 kg/m2 [facility] 12-25-2023 17:21-0400 Body temperature 98.3 [degF] [facility] 12-25-2023 17:21-0400 Body weight 70.3 kg [facility] 12-25-2023 17:21-0400 Heart rate 96 /min [facility] 12-25-2023 17:21-0400 Respiratory rate 18 /min [facility] 12-25-2023 17:21-0400 SaO2% (BldA) [Mass fraction] 96 % [facility] 10-04-2023 08:09-0500 Body mass index (BMI) [Ratio] 37.07 kg/m2 Gita HUSAIN Work Phone: [facility] 10-04-2023 08:09-0500 Body weight 86.09 kg Gita HUSAIN Work Phone: [facility] 10-04-2023 08:09-0500 Diastolic blood pressure 75 mm[Hg] Gita HUSAIN Work Phone: [facility] 10-04-2023 08:09-0500 Heart rate 94 /min Gita Hemmer PA Work Phone: [facility] 10-04-2023 08:09-0500 Respiratory rate 14 /min Gita Hemmer PA Work Phone: [facility] 10-04-2023 08:09-0500 SaO2% (BldA) [Mass fraction] 95 % Gita Hemmer PA Work Phone: [facility] 10-04-2023 08:09-0500 Systolic blood pressure 140 mm[Hg] Gita Hemmer PA Work Phone: [facility] 08-01-2023 08:30-0500 Body height 152.4 cm Jane Waller Other [facility] Other 04-02-2023 11:15-0400 Body height 152.4 cm Jane Waller Other [facility] Other 04-02-2023 11:15-0400 Body mass index (BMI) [Ratio] 36.71 kg/m2 Jane Waller Other [facility] Other 04-02-2023 11:15-0400 Body weight 85.28 kg Jane Waller Other [facility] Other 04-02-2023 11:15-0400 Diastolic blood pressure 82 mm[Hg] Jane Waller Other [facility] Other 04-02-2023 11:15-0400 SaO2% (BldA) [Mass fraction] 98 % Jane Waller Other [facility] Other 04-02-2023 11:15-0400 Systolic blood pressure 143 mm[Hg] Jane Waller Other [facility] Other 02-06-2023 08:45-0400 Body height 152.4 cm Jane Waller Other [facility] Other 02-06-2023 08:45-0400 Diastolic blood pressure 79 mm[Hg] Jane Waller Other [facility] Other 02-06-2023 08:45-0400 SaO2% (BldA) [Mass fraction] 96 % Jane Waller Other [facility] Other 02-06-2023 08:45-0400 Systolic blood pressure 118 mm[Hg] Jane Waller Other [facility] Other 03-19-2022 10:00-0400 Body height 152.4 cm Ciera Poppy Other [facility] Other 03-19-2022 10:00-0400 Body mass index (BMI) [Ratio] 35.74 kg/m2 Ciera Poppy Other [facility] Other 03-19-2022 10:00-0400 Body temperature 96.8 [degF] Ciera Poppy Other [facility] Other 03-19-2022 10:00-0400 Body weight 83.01 kg Ciera Poppy Other [facility] Other 03-19-2022 10:00-0400 Diastolic blood pressure 89 mm[Hg] Ciera Poppy Other [facility] Other 03-19-2022 10:00-0400 Respiratory rate 20 /min Ciera Poppy Other [facility] Other 03-19-2022 10:00-0400 SaO2% (BldA) [Mass fraction] 98 % Ciera Poppy Other [facility] Other 03-19-2022 10:00-0400 Systolic blood pressure 142 mm[Hg] Ciera Poppy Other [facility] Other 02-22-2022 11:00-0400 Body height 152.4 cm Jane Waller Other [facility] Other 02-22-2022 11:00-0400 Body mass index (BMI) [Ratio] 35.93 kg/m2 Jane Waller Other [facility] Other 02-22-2022 11:00-0400 Body temperature 97.7 [degF] Jane Waller Other [facility] Other 02-22-2022 11:00-0400 Body weight 83.46 kg Jane Waller Other [facility] Other 02-22-2022 11:00-0400 Diastolic blood pressure 82 mm[Hg] Jane Waller Other [facility] Other 02-22-2022 11:00-0400 SaO2% (BldA) [Mass fraction] 98 % Jane Waller Other [facility] Other 02-22-2022 11:00-0400 Systolic blood pressure 122 mm[Hg] Jane Waller Other [facility] Other 08-22-2021 16:30-0500 Body height 152.4 cm Jane Waller Other [facility] Other 08-22-2021 16:30-0500 Body mass index (BMI) [Ratio] 37.2 kg/m2 Jane Waller Other [facility] Other 08-22-2021 16:30-0500 Body temperature 97.5 [degF] Jane Sridhar Other [facility] Other 08-22-2021 16:30-0500 Body weight 86.41 kg Jane Sridhar Other [facility] Other 08-22-2021 16:30-0500 Diastolic blood pressure 83 mm[Hg] Jane Sridhar Other [facility] Other 08-22-2021 16:30-0500 SaO2% (BldA) [Mass fraction] 97 % Jane Sridhar Other [facility] Other 08-22-2021 16:30-0500 Systolic blood pressure 141 mm[Hg] Jane Sridhar Other [facility] Other 08-19-2021 10:20-0500 Body height 152.4 cm Tracy Oliver Other [facility] Other 08-19-2021 10:20-0500 Body mass index (BMI) [Ratio] 36.52 kg/m2 Tracy Oliver Other [facility] Other 08-19-2021 10:20-0500 Body temperature 97.9 [degF] Tracy Oliver Other [facility] Other 08-19-2021 10:20-0500 Body weight 84.82 kg Tracy Oliver Other [facility] Other 08-19-2021 10:20-0500 Diastolic blood pressure 80 mm[Hg] Tracy Oliver Other [facility] Other 08-19-2021 10:20-0500 Respiratory rate 18 /min Tracy Oliver Other [facility] Other 08-19-2021 10:20-0500 SaO2% (BldA) [Mass fraction] 100 % Tracy Oliver Other [facility] Other 08-19-2021 10:20-0500 Systolic blood pressure 146 mm[Hg] Tracy Oliver Other [facility] Other 06-01-2021 09:30-0400 Body height 152.4 cm Jane Sridhar Other [facility] Other Encounters Encounter Date Encounter Type Care Provider Facility Start: 05-20-2024 End: 05-20-2024 ambulatory II Elver Mendenhall Work Phone: [facility] Work Phone: Start: 05-20-2024 End: 05-20-2024 Departed Referred II Elver Mendenhall Work Phone: [facility] [place] Work Phone: Start: 05-19-2024 End: 05-19-2024 Patient encounter procedure II Elver Mendenhall Work Phone: [facility] Work Phone: Start: 05-19-2024 End: 05-20-2024 ambulatory II Elver Mendenhall Work Phone: [facility] Work Phone: Start: 05-14-2024 End: 05-14-2024 ambulatory ISADORA BARNARD Not Available Start: 05-13-2024 End: 05-13-2024 ambulatory GITA GARCIA Not Available Start: 03-04-2024 End: 03-04-2024 ambulatory SEB Rogers APLING Not Available Start: 01-30-2024 End: 01-30-2024 ambulatory [facility] Work Phone: Start: 01-30-2024 End: 01-30-2024 Patient encounter procedure [facility] Work Phone: Start: 01-09-2024 End: 01-09-2024 ambulatory [facility] Work Phone: Start: 01-09-2024 End: 01-09-2024 Patient encounter procedure [facility] [place] Work Phone: Start: 12-25-2023 End: 12-25-2023 ambulatory [facility] Work Phone: Start: 12-25-2023 End: 12-25-2023 Patient encounter procedure [facility] [place] Work Phone: Start: 10-14-2023 End: 10-14-2023 Office outpatient visit 15 minutes Lubna A Felter [employer] Work Phone: [facility] Comment on above: Nevus; Perioral dermatitis Start: 10-14-2023 End: 10-14-2023 ambulatory LUBNA A FELTER Not Available Start: 10-10-2023 End: 10-10-2023 ambulatory Jane Waller Other [facility] [employer] Other Start: 10-10-2023 Telephone encounter Jane Waller [facility] Start: 10-04-2023 Chart abstracting Gita Lea er PA Work Phone: [facility] Start: 10-04-2023 End: 10-04-2023 Patient encounter status Gita HUSAIN Work Phone: [facility] Work Phone: Start: 10-04-2023 End: 10-04-2023 Periodic preventive med est patient 40-64yrs Gita HUSAIN Work Phone: [facility] Comment on above: Wellness examination (Primary Dx); Excessive daytime sleepiness; Obstructive sleep apnea; Tachycardia; Abnormal electrocardiogram; Gastroesophageal reflux disease without esophagitis; Female infertility; Ankle edema; Impaired fasting glucose; Iron deficiency; Obesity (BMI 30-39.9); Thrombocythemia; Anemia, unspecified type; Elevated ALT measurement; History of gestational diabetes; History of tibial fracture; Mixed hyperlipidemia (CMS/HCC); Obsessive-compulsive disorder, unspecified type (CMS/HCC); Other allergic rhinitis; Bilateral leg pain; Weight gain Start: 10-04-2023 End: 10-04-2023 ambulatory GITA GARCIA Not Available Start: 09-05-2023 End: 09-05-2023 ambulatory Jane Waller Other [facility] Other Start: 09-05-2023 Telephone encounter Jane Waller [facility] Start: 08-01-2023 Office outpatient vi sit 25 minutes Jane Waller [facility] Start: 08-01-2023 End: 08-01-2023 Patient encounter procedure II Elver Mendenhall Work Phone: [facility] Work Phone: Start: 08-01-2023 End: 08-01-2023 ambulatory II Elver Mendenhall Work Phone: [facility] Other Start: 07-30-2023 End: 07-30-2023 ambulatory Ciera Poppy Other [facility] Other Start: 07-30-2023 Office outpatient vi sit 25 minutes Ciera Poppy [facility] Start: 07-16-2023 End: 07-16-2023 ambulatory Ciera Poppy Other [facility] Other Start: 07-16-2023 Telephone encounter Ciera Poppy [facility] Start: 07-15-2023 End: 07-15-2023 ambulatory GITA GARCIA Not Available Start: 06-13-2023 End: 06-13-2023 ambulatory Jane Waller Other [facility] Other Start: 06-13-2023 Telephone encounter Jane Song [facility] Start: 06-03-2023 End: 06-03-2023 ambulatory Jane Waller Other [facility] Other Start: 06-03-2023 Telephone encounter Jane Waller [facility] Start: 04-02-2023 Office outpatient vi sit 25 minutes Jane Waller [facility] Start: 04-02-2023 End: 04-02-2023 ambulatory II Elver Mendenhall Work Phone: [employer] [facility] [employer] Other Start: 04-02-2023 End: 04-02-2023 Patient encounter procedure II Elver Mendenhall Work Phone: [facility] Work Phone: Start: 03-11-2023 End: 03-11-2023 ambulatory Efraín Patel Other [facility] Other Start: 03-11-2023 Telephone encounter Vladislavchencho Rossdarrel [facility] Start: 02-06-2023 Office outpatient vi sit 25 minutes Jane Sridhar [facility] Start: 02-06-2023 End: 02-06-2023 ambulatory II Elver Mendenhall Work Phone: [facility] Other Start: 02-06-2023 End: 02-06-2023 Patient encounter procedure II Elver Mendenhall Work Phone: [facility] Work Phone: Start: 11-22-2022 End: 11-22-2022 ambulatory Jane Waller Other [facility] Other Start: 11-22-2022 Telephone encounter Jane Song [facility] Start: 08-28-2022 End: 08-28-2022 ambulatory Jane Sridhar Other [facility] Other Start: 08-28-2022 Telephone encounter Jane Song [facility] Start: 07-03-2022 End: 07-03-2022 Patient encounter procedure II Elver Mendenhall Work Phone: [facility] Start: 07-03-2022 End: 07-03-2022 ambulatory II Elver Mendenhall Work Phone: [facility] Work Phone: Start: 07-03-2022 Office outpatient vi sit 25 minutes Jane Waller [facility] Start: 05-24-2022 End: 05-24-2022 ambulatory Jane Sridhar Other [facility] Other Start: 05-24-2022 Telephone encounter Jane Sridhar [facility] Start: 03-19-2022 End: 03-19-2022 ambulatory Ciera Poppy Other [facility] Other Start: 03-19-2022 Office outpatient vi sit 25 minutes Ciera Poppy [facility] Start: 02-23-2022 End: 02-23-2022 ambulatory Jane Sridhar Other [facility] Other Start: 02-23-2022 Telephone encounter Jane Sridhar Song [facility] Start: 02-22-2022 End: 02-22-2022 ambulatory Jane Sridhar Other [facility] Other Start: 02-22-2022 Office outpatient vi sit 25 minutes Jane Waller [facility] Start: 11-24-2021 End: 11-24-2021 ambulatory Jane Sridhar Other [facility] Other Start: 11-24-2021 Telephone encounter Jane Sridhar Song [facility] Start: 09-08-2021 End: 09-08-2021 ambulatory Jane Waller Other [facility] Other Start: 09-08-2021 Telephone encounter Ciera Mcwilliams [facility] Start: 08-22-2021 End: 08-22-2021 ambulatory Jane Waller Other [facility] Other Start: 08-22-2021 Office outpatient vi sit 25 minutes Jane Sridhar [facility] Start: 08-19-2021 End: 08-19-2021 ambulatory Tracy Benito Other [facility] Other Start: 08-19-2021 Office outpatient vi sit 15 minutes Tracy Oliver [facility] [place] Start: 08-02-2021 End: 08-02-2021 ambulatory Jane Waller Other [facility] Other Start: 08-02-2021 Telephone encounter Jane Waller [facility] Start: 06-30-2021 Telephone encounter Jane Waller [facility] Start: 06-01-2021 Office outpatient vi sit 25 minutes Jane Sridhar [facility] Start: 07-07-2019 End: 07-13-2019 Evaluation and management of inpatient ELVER MENDENHALL Facility:[facility] Start: 07-06-2019 End: 07-07-2019 Patient encounter procedure ELVER MENDENHALL Facility:[facility] Start: 06-08-2019 End: 06-09-2019 Patient encounter procedure GITA GARCIA Facility:[facility] Start: 05-23-2019 End: 05-24-2019 Patient encounter procedure ELVER MENDENHALL Facility:[facility] Start: 12-27-2018 End: 12-28-2018 Patient encounter procedure ELVER MENDENHALL Facility:[facility] Start: 03-27-2018 Patient encounter PROVIDER UNKNOWN F [id number] Start: 03-27-2018 Patient encounter Facil [id number] Procedures Date Procedure Procedure Detail Performing Clinician Start: 12-09-2020 Mammography Gita Lea er PA Work Phone: Start: 07-07-2019 REPAIR RIGHT KNEE PHONG INT, OPEN APPROACH IAN EBRAHEIM Start: 07-07-2019 REPOSITION RIGHT TIB IA WITH INT FIX, OPEN APPROACH IAN EBRAHEIM Start: 07-07-2019 SUPPLEMENT RIGHT TIB IA WITH SYNTH SUB, OPEN APPROACH IAN EBRAHEIM Start: 07-07-2019 Antibody screen ELVER MENDENHALL Comment on above: Performed By: #### [id number] #### [place] [address] [place], [place] [id number] [place] [address] Start: 12-27-2018 End: 12-27-2018 Microscopic examination of blood, culture ELVER MENDENHALL Comment on above: Performed By: #### B [id number] #### [facility] [address], [place] [address] Jose Pelayo Performed By: #### L IPA, CMP #### [facility] [address], [place] [address] Jose Pelayo Plan of Treatment Date Care Activity Detail Author Start: 03-27-2028 [facility] Start: 02-08-2025 End: 02-08-2025 Patient encounter procedure 02/08/2025 8:30 AM EDT Office Visit [facility] [address] [place] [phone] Lubna Lawrence, [employer] [address] [place] [address] [facility] Start: 04-09-2024 End: 04-09-2024 Patient encounter procedure 04/09/2024 9:35 AM EDT Office Visit [facility] [address] [place] [phone] Lubna Lawrence, [employer] [address] [place] [address] [facility] Start: 03-31-2024 End: 03-31-2024 Patient encounter procedure 03/31/2024 9:45 AM EDT Office Visit [facility] [address] [place] [phone] Lenny Snow DO [address] [place] [address] [facility] Start: 11-15-2023 End: 11-15-2023 Patient encounter procedure 11/15/2023 8:30 AM EDT Office Visit [facility] [address] [place] [phone] Gita Garcia PA [address] [place] [address] [facility] Start: 10-14-2023 End: 10-14-2023 Patient encounter procedure 10/14/2023 8:30 AM EST Office Visit [facility] [address] [place] [address] Lubna Lawrence, [employer] [address] [place] [address] [facility] Start: 10-04-2023 End: 10-04-2024 CBC W Auto Differential panel - Blood CBC and differential Lab Routine Wellness examination Iron deficiency Thrombocythemia Anemia, unspecified type Expected: 10/04/2023 (Approximate), Expires: 10/04/2024 [facility] Work Phone: Comment on above: Expected: 10/04/2023 (Approximate), Expires: 10/04/2024 Start: 10-04-2023 End: 10-04-2024 Comprehensive metabolic 2000 panel - Serum or Plasma Comprehensive metabolic panel Lab Routine Wellness examination Ankle edema Elevated ALT measurement Mixed hyperlipidemia (CMS/HCC) Expected: 10/04/2023 (Approximate), Expires: 10/04/2024 [facility] Comment on above: Expected: 10/04/2023 (Approximate), Expires: 10/04/2024 Start: 10-04-2023 End: 10-04-2024 Hemoglobin A1c measurement Hemoglobin A1c Lab Routine Wellness examination Impaired fasting glucose History of gestational diabetes Expected: 10/04/2023 (Approximate), Expires: 10/04/2024 [facility] Comment on above: Expected: 10/04/2023 (Approximate), Expires: 10/04/2024 Start: 10-04-2023 End: 10-04-2024 Iron + transferrin + TIBC Iron + transferrin + TIBC Lab Routine Wellness examination Iron deficiency Anemia, unspecified type Expected: 10/04/2023 (Approximate), Expires: 10/04/2024 [facility] Comment on above: Expected: 10/04/2023 (Approximate), Expires: 10/04/2024 Start: 10-04-2023 End: 10-04-2024 Lipid 1996 panel - Serum or Plasma Lipid panel Lab Routine Wellness examination Elevated ALT measurement Mixed hyperlipidemia (CMS/HCC) Expected: 10/04/2023 (Approximate), Expires: 10/04/2024 [facility] Comment on above: Expected: 10/04/2023 (Approximate), Expires: 10/04/2024 Start: 10-04-2023 End: 10-04-2024 TSH W/REFLEX TO FT4 TSH W/REFLEX TO FT4 Lab Routine Wellness examination Tachycardia Weight gain Expected: 10/04/2023 (Approximate), Expires: 10/04/2024 [facility] Comment on above: Expected: 10/04/2023 (Approximate), Expires: 10/04/2024 Start: 10-04-2023 End: 10-04-2023 Patient encounter procedure 10/04/2023 8:00 AM EST Office Visit [facility] [address] [facility] [address] [place] [phone] Gita Garcia PA [address] [facility] [address] [place] [address] [facility] Start: 05-03-2023 Influenza vaccination Influenza Vacc ine (#1) [facility] Start: 12-09-2021 Screening for malign ant neoplasm of breast Mammogram [facility] Start: 1997 Screening for malign ant neoplasm of cervix Pap Smear [facility] Start: 1976 Screening for malign ant neoplasm of colon [facility] Immunizations Immunization Date Immunization Notes Care Provider Fa cilinelida 03-10-2016 Rocephin 500 mg Jane Waller Other [facility] Other 02-17-2016 tetanus toxoid, reduced diphtheria toxoid, and acellular pertussis vaccine, adsorbed Gita Garcia PA Work Phone: [facility] Work Phone: Payers Date Payer Category Payer Self-pay [id number] 2022 Unknown BCBS BCBS xxxxxx [id number] 2022-Present [phone] [address] [place] [address] [id number] 2022 Blue Cross Blue Shield [id number] 1976 Unknown [id number] 2.16.840.1.854966.3.579.2. 593 1976 Unknown [id number] 2.16.840.1.532731.3.579.2. 593 1976 Unknown [id number] 2.16.840.1.365155.3.579.2. 593 1976 Unknown [id number] 2.16.840.1.253141.3.579.2. 593 1976 Unknown [id number] 2.16.840.1.051277.3.579.2. 647 1976 Unknown [id number] 2.16.840.1.791750.3.579.2. 1259 1976 Unknown [id number] 2.16.840.1.308136.3.579.2. 1259 1976 Unknown [id number] 2.16.840.1.571087.3.579.2. 1259 1976 Unknown [id number] 2.16.840.1.202135.3.579.2. 1259 1976 Unknown [id number] 2.16.840.1.748581.3.579.2. 1259 1976 Unknown [id number] 2.16.840.1.649591.3.579.2. 1259 1976 Unknown [id number] 2.16.840.1.724972.3.579.2. 1259 1959 Unknown [id number] Unknown [id number] 2.16840.1.790982.19 Unknown Copay Assistance Program [id number] Unknown [id number] 2.16840.1.507909.3.579.2. 531 Unknown [id number] 2.16840.1.105907.3.579.2. 531 Unknown [id number] [id number]. 531 Social History Date Type Detail Facility Unknown if ever smoked [facility] Other Start: 03-27-2023 End: 07-15-2023 Sex Assigned At [facility] Start: 03-13-2021 End: 12-25-2023 Tobacco smoking status MDIS Never smoked tobacco (finding) [facility] Start: 1975 Sex Assigned At Female [facility] Start: 03-27-2023 End: 10-14-2023 Tobacco use and exposure Smokeless tobacco non-user [facility] Start: 07-15-2023 End: 10-14-2023 Alcohol intake Lifetime non-drinker (finding) [facility] Start: 03-27-2023 End: 07-15-2023 History of Social function [facility] Within the last year , have you been afraid of your partner or ex-partner? No [facility] Do you belong to any clubs or organizations such as yazdanism groups, unions, fraternal or athletic groups, or school groups? Yes [facility] Are you now , , , , never or living with a partner? [facility] How often to you hav e a drink containing alcohol? Never [facility] How many standard drinks containing alcohol do you have on a typical day? Patient does not drink [facility] Do you feel stress - tense, restless, nervous, or anxious, or unable to sleep at night because your mind is troubled all the time - these days [OSQ] Not at all [facility] (I/We) worried wheth er (my/our) food would run out before (I/we) got money to buy more. Never true [facility] Start: 03-27-2023 Education 18 [facility] Start: 03-27-2023 Alcohol Comment Caffeine intak e: 1-2 cups per day soda [facility] Start: 1975 Sex Assigned At Not on file N [facility] NEGATED: Highlighted rowStart: NINF History of tobacco use Passive smoker [facility] Clinical Notes 11-18-2020 to 10-14-2023 Lubna Lawrence, [employer] - 10/14/2023 8:30 AM EST Note Date & Type Note Facility 10-14-2023 History of Presen t illness Narrative Images from the original note were not included. Follow up Diagnosis: Compound nevus with mild atypia Location: Left abdomen Last visit: 6 month Status: Nothing has returned Procedure performed: Shave biopsy Date of procedure: 04/09/2023 Follow up Diagnosis: Perioral Dermatitis Location: Face Last visit: 6 months ago Symptoms: Mild redness-patient does get yeast infections while on meds Status: Stable on treatment Treatment: Minocycline 100 mg daily (patient decreased dose from 100mg bid to daily) All pertinent medical history, medications, and allergies were reviewed. General Exam: alert , oriented to person, place, and time , normal affect, well appearing A focused exam completed based on patient reported problems, see below: 1. Nevus Left Abdomen No recurrence seen at today's visit. Photo taken Patient to notify office if anything reoccurs. 2. Perioral dermatitis Head - Anterior (Face) Clear today. Patient to try and discontinue Minocycline to see if condition flares, refills given in case of flare. Patient to continue using Clindamycin lotion daily to help prevent flares. No refills needed at this time, follow up in 1 year. Related Medications clindamycin (Clindagel) 1 % gel Apply to face BID minocycline 100 MG capsule Take 1 capsule, by mouth, bid, 30 days Next Visit: 1 year documented in this encounter [facility] 10-10-2023 Evaluation note Encounter Date Diagnosis Assessment Notes Oct, ROBYN (obstructi ve sleep apnea) (ICD-10 - G47.33) [facility] 02-02-2024 History of Present illness Narrative* LISHA Grayson - 10/04/2023 8:00 AM EST HPI Med Refill Additional comments: Hydrochlorothiazide Last edited by Jennifer Moses MA on 10/04/2023 8:08 AM. Subjective Patient ID: Linda Alvarado is a 48 y.o. female who presents for wellness. Subjective Linda Alvarado is a 48 y.o. female and is here for a comprehensive physical exam. She states her hips and legs have been hurting off and on the past few months. Pain is achy and an 8/10. She's taken ibuprofen for pain and states it has helped some. States the pain radiates down both legs, her legs both ache all over. Also c/o increased gas in her upper abdomen. Baking Soda helps calm it down. Follows with Dr. Waller for sleep medication. Was told to lose 10 pounds because her machine is maxed out, but has gained weight. Did try Plexus, which uses probiotics and other supplements which didhelp with bloating. Linda refuses cologuard. Current Outpatient Medications on File Prior to Visit Medication Sig Dispense Refill Adderall XR 20 MG 24 hr capsule 1 (one) time each day at the same time. Advair Diskus 500-50 MCG/ACT aerosol powder INHALE 1 PUFF INTO THE LUNGS TWICE A DAY FOR 30 DAYS albuterol HFA 90 mcg/act inhaler amphetamine-dextroamphetamine (Adderall) 20 MG tablet TAKE 1 TABLET ORALLY ONCE A DAY AT NOON 90 DAYS atorvastatin (Lipitor) 10 MG tablet Take 1 tablet (10 mg) by mouth in the morning. 100 tablet 3 cetirizine (ZyrTEC ALLERGY) 10 MG tablet 1 (one) time each day at the same time. cholecalciferol (Vitamin D-3) 50 MCG (1999 UT) capsule citalopram (CeleXA) 40 MG tablet Take 0.5 tablets (20 mg) by mouth in the morning. 45 tablet 3 clindamycin (Clindagel) 1 % gel Apply to face BID 60 g 1 dilTIAZem CD (Cardizem CD) 120 MG 24 hr capsule Take 1 capsule (120 mg) by mouth in the morning. 100 capsule 3 eletriptan (Relpax) 40 MG tablet TAKE 1 TABLET BY MOUTH, REPEAT IN 2 HOURS IF HEADACHE RETURNS,*NO MORE THAN 2 DOSES IN 24 HOURS 12 tablet 12 fluticasone (Flonase) 50 MCG/ACT nasal spray SPRAY 1 TO 2 SPRAYS IN EACH NOSTRIL ONCE DAILY KLOR-CON 10 MEQ ER tablet 1 (one) time each day at the same time. minocycline 100 MG capsule Take 1 capsule, by mouth, bid, 30 days 60 capsule 0 omeprazole (PriLOSEC) [address] capsule TAKE 1 CAPSULE BY MOUTH TWICE DAILY 180 capsule 3 Sunosi 150 MG tablet [DISCONTINUED] hydroCHLOROthiazide (HYDRODiuril) 25 MG tablet No current facility-administered medications on file prior to visit. Allergies Allergen Reactions Clarithromycin GI intolerance Sulfa Antibiotics Unknown Social History Tobacco Use Smoking 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 Smokeless tobacco: Never Substance Use Topics Alcohol use: Never Comment: Caffeine intake: 1-2 cups per day soda Drug use: Never Family History Problem Relation Name Age of Onset Heart attack Mother age 60 Lymphoma Mother OCD Mother Hypertension Mother Heart disease Father Hypertension Father OCD Father Migraines Sister OCD Sister Heart disease Maternal Grandmother Hypertension Maternal Grandmother Hypertension Maternal Grandfather Hypertension Paternal Grandmother Lung cancer Paternal Grandfather Brain cancer Paternal Grandfather Diabetes Paternal Grandfather Hypertension Paternal Grandfather Past Medical History: Diagnosis Date Abnormal ECG 12/2018 Asthma (CMS/HCC) Comminuted fracture of shaft of tibia 07/06/2019 RT COVID-19 05/2021 Ectopic 2010 Fracture of tibial plateau GDM (gestational diabetes mellitus) Infertility counseling Miscarriage 2010 OCD (obsessive compulsive disorder) (CMS/HCC) ROBYN (obstructive sleep apnea) Seasonal allergies Past Surgical History: Procedure Laterality Date CARPAL TUNNEL RELEASE 2007 SECTION, CLASSIC 2016 COLPOSCOPY 1999, 2001 D&C FIRST TRIMESTER / TX INCOMPLETE / MISSED / SEPTIC / INDUCED 2010 DILATION AND CURETTAGE OF UTERUS 2012 GALLBLADDER 2012 TIBIA FRACTURE SURGERY Right 07/07/2019 ORIF Visit Vitals BP 140/75 Pulse 94 Resp 14 Wt 189 lb 12.8 oz SpO2 95% BMI 37.07 kg/m OB Status Having periods Smoking Status Never BSA 1.91 m Review of Systems Constitutional: Negative for chills, fatigue and fever. HENT: Negative for congestion, ear pain, rhinorrhea and sore throat. Eyes: Negative for pain, discharge and visual disturbance. Respiratory: Negative for cough, shortness of breath and wheezing. Cardiovascular: Negative for chest pain and palpitations. Gastrointestinal: Negative for abdominal pain, constipation, diarrhea, nausea and vomiting. Genitourinary: Negative for difficulty urinating, dysuria and frequency. Musculoskeletal: Positive for arthralgias and back pain. Skin: Negative for rash. Neurological: Negative for dizziness and numbness. Forgetfulness Psychiatric/Behavioral: Negative for sleep disturbance. The patient is not nervous/anxious. Objective Physical Exam Constitutional: General: She is not in acute distress. Appearance: She is well-developed. She is obese. HENT: Head: Normocephalic and atraumatic. Right Ear: Tympanic membrane and ear canal normal. Left Ear: Tympanic membrane and ear canal normal. Nose: Nose normal. Mouth/Throat: Mouth: Mucous membranes are moist. Pharynx: No posterior oropharyngeal erythema. Eyes: General: No scleral icterus. Extraocular Movements: Extraocular movements intact. Conjunctiva/sclera: Conjunctivae normal. Pupils: Pupils are equal, round, and reactive to light. Cardiovascular: Rate and Rhythm: Normal rate and regular rhythm. Heart sounds: Normal heart sounds. No murmur heard. Pulmonary: Effort: Pulmonary effort is normal. No respiratory distress. Breath sounds: Normal breath sounds. No wheezing, rhonchi or rales. Abdominal: General: Bowel sounds are normal. There is no distension. Palpations: Abdomen is soft. Tenderness: There is no abdominal tenderness. There is no guarding. Musculoskeletal: General: No swelling or deformity. Normal range of motion. Cervical back: Normal range of motion and neck supple. No tenderness. Skin: General: Skin is warm and dry. Capillary Refill: Capillary refill takes less than 2 seconds. Findings: No rash. Neurological: General: No focal deficit present. Mental Status: She is alert and oriented to person, place, and time. Cranial Nerves: No cranial nerve deficit. Sensory: No sensory deficit. Motor: No weakness. Gait: Gait normal. Deep Tendon Reflexes: Reflexes normal. Psychiatric: Mood and Affect: Mood normal. Behavior: Behavior normal. Thought Content: Thought content normal. Judgment: Judgment normal. Assessment/Plan Diagnoses and all orders for this visit: Wellness examination - CBC and differential; Future - Comprehensive metabolic panel; Future - Lipid panel; Future - TSH W/REFLEX TO FT4; Future - Hemoglobin A1c; Future - Iron + transferrin + TIBC; Future Wellness form reviewed in detail with the patient. Encouraged patient to stay up to date on immunizations and preventative testing. Encouraged healthy diet, stay active. Will continue with yearly wellness exams. Patient refused Cologuard testing at this time. Risks of not having these were reviewed with patient, including the potential for undiagnosed medical conditions or illnesses that may negatively impact the patient's health, including potentially life-threatening conditions. Patient voiced understanding regarding the risks with not having preventative screenings completed. Encouraged the patient tocontact the office if at any time the patient would like to proceed with any of the preventative services. Excessive daytime sleepiness The patient is seeing a medical detailist for this condition, treatment is deferred to that specialist. Correspondence from that specialist and any available testing were reviewed during today's visit. Obstructive sleep apnea The patient is seeing a medical detailist for this condition, treatment is deferred to that specialist. Correspondence from that specialist and any available testing were reviewed during today's visit. Tachycardia - TSH W/REFLEX TO FT4; Future This is a chronic medical condition that is stable since last assessment. No changes in treatment are suggested at this time. Abnormal electrocardiogram This is a chronic medical condition that is stable since last assessment. No changes in treatment are suggested at this time. Gastroesophageal reflux disease without esophagitis This is a chronic medical condition that is stable since last assessment. No changes in treatment are suggested at this time. Female infertility The patient is seeing a medical detailist for this condition, treatment is deferred to that specialist. Correspondence from that specialist and any available testing were reviewed during today's visit. Ankle edema - hydroCHLOROthiazide (HYDRODiuril) 25 MG tablet; Take 1 tablet (25 mg) by mouth in the morning. - Comprehensive metabolic panel; Future This is a chronic medical condition that is stable since last assessment. No changes in treatment are suggested at this time. Impaired fasting glucose - Hemoglobin A1c; Future Updated fasting lab work ordered for pt to have completed. Iron deficiency - CBC and differential; Future - Iron + transferrin + TIBC; Future Updated fasting lab work ordered for pt to have completed. Obesity (BMI 30-39.9) Encouraged portion control, decrease simple sugars and carbohydrates, gradually increase activity level. Aim for gradual steady weight loss. Thrombocythemia - CBC and differential; Future Updated fasting lab work ordered for pt to have completed. Anemia, unspecified type - CBC and differential; Future - Iron + transferrin + TIBC; Future Updated fasting lab work ordered for pt to have completed. Elevated ALT measurement - Comprehensive metabolic panel; Future - Lipid panel; Future Updated fasting lab work ordered for pt to have completed. History of gestational diabetes Updated fasting lab work ordered for pt to have completed. History of tibial fracture The patient is seeing a medical detailist for this condition, treatment is deferred to that specialist. Correspondence from that specialist and any available testing were reviewed during today's visit. Mixed hyperlipidemia (CMS/HCC) - Comprehensive metabolic panel; Future - Lipid panel; Future Updated fasting lab work ordered for pt to have completed. Obsessive-compulsive disorder, unspecified type (CMS/HCC) This is a chronic medical condition that is stable since last assessment. No changes in treatment are suggested at this time. Other allergic rhinitis This is a chronic medical condition that is stable since last assessment. No changes in treatment are suggested at this time. Bilateral leg pain This is a chronic medical condition that is stable since last assessment. No changes in treatment are suggested at this time. Weight gain - TSH W/REFLEX TO FT4; Future Will check TSH with upcoming labs. Encouraged pt to start Probiotic and Vitamin B Complex daily. Follow up in about 6 weeks (around 11/15/2023) for Recheck. documented in this encounterCitizens Memorial [id number] Evaluation note* Encounter Date Diagnosis Assessment Notes Treatment Notes Treatment Clinical Notes Jul, ROBYN (obstructive sleep apnea) (ICD-10 - G47.33) Substantial improvement in daytime persistent drowsiness after starting Sunosi. Has been able to decrease Adderall dose and still has much less daytime tiredness. I encouraged her to continue with longer sleep times as well. She is having some breakthrough apneic events and seems to be maxing out the pressure as her machine can deliver. Encouraged her to work on bringing down body weight, as I do like to avoid getting a new machine for her Jul, Excessive daytime sleepiness (ICD-10 - G47.19) Persistent excessive daytime sleepiness after control of sleep apnea is at the very least present. She has had excellent clinical response to the combination of Sunosi and Adderall extended release. I am also very suspicious she may have narcolepsy. Sunosi and Adderall can treat either problem Jul, Hypnagogic hallucinations (ICD-10 - R44.2) She has hypnagogic hallucinations, cataplexy, persistent excessive daytime sleepiness, and sleep paralysis. I am very suspicious that narcolepsy is present Jul, Cataplexy (ICD-10 - G47.411) She is not had recurring cataplexy recently, but has reported symptoms in the past [facility] Other 11-28-2023 Evaluation note* Encounter Date Diagnosis Assessment Notes Treatment Notes Treatment Clinical Notes Jul, Mild intermittent asthma, uncomplicated (ICD-10 - J45.20) [facility] Other 10-12-2023 Evaluation note* Encounter Date Diagnosis Assessment Notes Treatment Notes Treatment Clinical Notes Jun, ROBYN (obstructive sleep apnea) (ICD-10 - G47.33) [facility] Other 10-02-2023 Evaluation note* Encounter Date Diagnosis Assessment Notes Treatment Notes Treatment Clinical Notes Jun, ROBYN (obstructive sleep apnea) (ICD-10 - G47.33) [facility] Other 08-01-2023 Evaluation note* Encounter Date Diagnosis Assessment Notes Treatment Notes Treatment Clinical Notes Apr, ROBYN (obstructive sleep apnea) (ICD-10 - G47.33) Substantial improvement in daytime persistent drowsiness after starting Sunosi. Has been able to decrease Adderall dose and still has much less daytime tiredness. I encouraged her to continue with longer sleep times as well. I am hoping for further improvement as Sunosi has more chance to kick in. Return 3 months, call sooner if problems Apr, Excessive daytime sleepiness (ICD-10 - G47.19) Persistent excessive daytime sleepiness after control of sleep apnea is at the very least present. I am also very suspicious she may have narcolepsy. Sunosi and Adderall can treat either problem Apr, Hypnagogic hallucinations (ICD-10 - R44.2) She has hypnagogic hallucinations, cataplexy, persistent excessive daytime sleepiness, and sleep paralysis. I am very suspicious that narcolepsy is present Apr, Cataplexy (ICD-10 - G47.411) [facility] Other 07-10-2023 Evaluation note* Encounter Date Diagnosis Assessment Notes Treatment Notes Treatment Clinical Notes Mar, Mild intermittent asthma, uncomplicated (ICD-10 - J45.20) [facility] Other 2023 Evaluation note* Encounter Date Diagnosis Assessment Notes Treatment Notes Treatment Clinical Notes Jan, ROBYN (obstructive sleep apnea) (ICD-10 - G47.33) She has severe persistent excessive daytime sleepiness after control of sleep apnea. I am very suspicious that she has narcolepsy, but as yet we have not been able to get MSLT due to her sleep apnea control not being optimal each night before attempted MSLT. Her persistent elevated Union sleepiness score, at 17, continues to show severe excessive daytime sleepiness even with Adderall on board. Discussed options; will start Sunosi 75 mg for 15 days then go to 150 mg. I am hoping she will be able to go down on the Adderall dose but have improved overall symptom control. Should this be ineffective, we may need to bite the bullet and make another attempt at PSG/MSLT Jan, Excessive daytime sleepiness (ICD-10 - G47.19) She has significant excessive daytime sleepiness. I encouraged her to get adequate total sleep time, as it is running a little short lately. However even with 10 hours of sleep she has had severe's daytime sleepiness so I do not think that is the whole problem. I am very suspicious of narcolepsy based on the presence of the below symptoms, but in any case she has persistent excessive daytime sleepiness after control of sleep apnea Jan, Hypnagogic hallucinations (ICD-10 - R44.2) She has had recurring hypnagogic hallucinations going back into childhood. These have improved with improvement in fatigue Jan, Sleep paralysis (ICD-10 - G47.8) She has had episodes of sleep paralysis Jan, Cataplexy (ICD-10 - G47.411) She has had recurring cataplexy events. In context of these 3 symptoms, I am clinically almost certain that narcolepsy is present although we have not gotten the PSG MSLT documentation [facility] Other 03-23-2023 Evaluation note* Encounter Date Diagnosis Assessment Notes Treatment Notes Treatment Clinical Notes Oct, ROBYN (obstructive sleep apnea) (ICD-10 - G47.33) [facility] Other 12-27-2022 Evaluation note* Encounter Date Diagnosis Assessment Notes Treatment Notes Treatment Clinical Notes Aug, ROBYN (obstructive sleep apnea) (ICD-10 - G47.33) [facility] Other 11-01-2022 Evaluation note* Encounter Date Diagnosis Assessment Notes Treatment Notes Treatment Clinical Notes Jul, ROBYN (obstructive sleep apnea) (ICD-10 - G47.33) She is using and benefiting from treatment. Utilization time is adequate, just over 7 hours. A few breakthrough events, with max pressure approaching the current 20 cm H2O limit. Encouraged to work on bringing weight down. In the meantime continue Rx, call if problems Jul, Excessive daytime sleepiness (ICD-10 - G47.19) Continue with stimulant medication, encouraged adequate total sleep time. Emphasized continued use of positive airway pressure. Call if problems Jul, Hypnagogic hallucinations (ICD-10 - R44.2) Although PSG/MSLT was not conclusive, the presence of hypnagogic hallucinations and excessive daytime sleepiness does suggest the diagnosis of narcolepsy [facility] Other 09-22-2022 Evaluation note* Encounter Date Diagnosis Assessment Notes Treatment Notes Treatment Clinical Notes May, ROBYN (obstructive sleep apnea) (ICD-10 - G47.33) [facility] Other 07-18-2022 Evaluation note* Encounter Date Diagnosis Assessment Notes Treatment Notes Treatment Clinical Notes Mar, Mild intermittent asthma, uncomplicated (ICD-10 - J45.20) Take Breo 1 inhalation daily if you run out of Advair. [facility] Other 06-24-2022 Evaluation note* Encounter Date Diagnosis Assessment Notes Treatment Notes Treatment Clinical Notes Jan, ROBYN (obstructive sleep apnea) (ICD-10 - G47.33) [facility] Other 06-23-2022 Evaluation note* Encounter Date Diagnosis Assessment Notes Treatment Notes Treatment Clinical Notes Jan, ROBYN (obstructive sleep apnea) (ICD-10 - G47.33) She is compliant with positive airway pressure treatment and is using the device regularly. There is adequate control of sleep apnea with treatment. Since being off school utilization times are 7.5 hours, but prior to that was only 6.5 hours; inadequate sleep may also be playing some role. Jan, Excessive daytime sleepiness (ICD-10 - G47.19) She has excessive daytime sleepiness despite compliance with sleep apnea treatment. Her EDS may be residual after control of sleep apnea, as this can sometimes be observed in patients with pure sleep apnea and no other sleep problems. However I cannot rule out the possibility of narcolepsy, though we have not been able to document that with certainty. She reports that her alertness has been night and day since medication was started Jan, Hypnagogic hallucinations (ICD-10 - R44.2) Hypnagogic hallucinations and history of sleep paralysis can be seen in patients with nonspecific excessive sleepiness, though they are more common in narcolepsy. At some point nocturnal polysomnography with following multiple sleep latency test is likely indicated [facility] Other 03-25-2022 Evaluation note* Encounter Date Diagnosis Assessment Notes Treatment Notes Treatment Clinical Notes Oct, Narcolepsy and cataplexy (ICD-10 - G47.411) [facility] Other 01-07-2022 Evaluation note* Encounter Date Diagnosis Assessment Notes Treatment Notes Treatment Clinical Notes Sep, Mild intermittent asthma, uncomplicated (ICD-10 - J45.20) [facility] Other 01-07-2022 Evaluation note* Encounter Date Diagnosis Assessment Notes Treatment Notes Treatment Clinical Notes Sep, Narcolepsy and cataplexy (ICD-10 - G47.411) [facility] Other 12-21-2021 Evaluation note* Encounter Date Diagnosis Assessment Notes Treatment Notes Treatment Clinical Notes Aug, Narcolepsy and cataplexy (ICD-10 - G47.411) Symptoms are overall stable. Her sleep apnea is well controlled and she is using the machine regularly with good use and benefit. We will get a refill on her prescription she does wish to get 90-day Rx. Call if poor response or problems. Try to keep as regular sleep cycles as possible with adequate total sleep time. Aug, ROBYN (obstructive sleep apnea) (ICD-10 - G47.33) She is using and benefiting from treatment. Download reviewed. No difficulties tolerating the device, and it does demonstrate an average of 7 hours sleep. (This average does mask some nights with shorter use, balanced by other nights with 10 to 12 hours of use. She is advised to keep sleep schedules and usage times as regular as possible.) Aug, BMI 37.0-37.9, adult (ICD-10 - Z68.37) Weight reduction is broadly beneficial and can have significant positive effects on sleep apnea [facility] Other 12-18-2021 Evaluation note* Encounter Date Diagnosis Assessment Notes Treatment Notes Treatment Clinical Notes Aug, Cellulitis of right lower extremity (ICD-10 - L03.115) Use medications as directed. Cover area as instructed. May use gently cleanser to area between daily application as instructed.. Follow up with primary care provider if no improvement of symptoms or if symptoms worsen. [facility] Other 12-01-2021 Evaluation note* Encounter Date Diagnosis Assessment Notes Treatment Notes Treatment Clinical Notes Aug, Narcolepsy and cataplexy (ICD-10 - G47.411) [facility] Other 10-29-2021 Evaluation note* Encounter Date Diagnosis Assessment Notes Treatment Notes Treatment Clinical Notes Jun, Narcolepsy and cataplexy (ICD-10 - G47.411) [facility] Other 09-30-2021 Evaluation note* Encounter Date Diagnosis Assessment Notes Treatment Notes Treatment Clinical Notes May, Narcolepsy and cataplexy (ICD-10 - G47.411) Good response to adderall, Though symptoms tend to return later in the day. We discussed options, and we will try switching her morning dose to Adderall XR in order to help with afternoon symptoms. Hopefully this will avoid the increase in josué vu or hypnagogic hallucinations in the evening that she sees with higher doses of regular Adderall at noon. Continue that treatment, call if problems. Recheck 3 months. Hoping that as she becomes able to sleep in later residual fatigue may disappear. No side effects May, Hypnagogic hallucinations (ICD-10 - R44.2) She has had visual josué vu episodes that occur as she is sleepy primarily in the evening. These sound suspicious for hypnagogic hallucinations, and I am wondering if her complaints may be narcolepsy related. We discussed these issues extensively. The lower dose at noon time has helped reduce the events, but if they are indeed hypnagogic hallucinations we may find further benefit by adjusting her citalopram timing. She now takes that before bed, but if she takes it in the morning it could have more effect in the evening and may reduce hypnagogic hallucination symptoms. Antidepressants can have this secondary effect. She will switch her omeprazole to evening. She will call if problems May, Obstructive sleep apnea (ICD-10 - G47.33) Download shows good use and control. Call if poor response or problem .Ensure adequate total sleep time May, Excessive daytime sleepiness (ICD-10 - G47.19) controlled with PAP for ROBYN and med for narcolepsy [facility] Other 07-12-2021 Progress note Author [facility] March 13, 2021 9:57am Note Date/Time March 13, 2021 9:43 am [facility] at [address] [address] Hem/Onc Follow Up Note - OP Signed Patient: Linda Alvarado MR#: [id number] : 1975 Acct:[id number] Age/Sex: 45 / F Type: REG RCR Copies to: MD Gita Navarrete II, PA-C~ Subjective Date/Time of Service: Date of Service: 03/13/2021 Time of Service: 09:37 Chief Complaint: Patient is here for a 4 month follow up for thrombocytosis withlabs 03/08/2021 for review. No concerns are voiced at this time. HPI: 45-year-old female primary patient of Gita Garcia nurse practitioner in [facility]. She is referred for mild thrombocytosis, then was found to have iron deficiency. The thrombocytosis has since resolved. She had received Injectafer infusions, 750 mg x2. She felt really good after iron infusion for 2 weeks, nowtired again. She also has experienced daytime nightmares, during showers, lasting for seconds, denies blackout or visual changes. She started Adderall about 3 months ago. Past medical history includes asthma, hypertension, hypercholesterolemia, migraine headaches, allergic rhinitis, tachycardia, history of gestational diabetes, thrombocytopenia. Obstructive sleep apnea, OCD. Outpatient medication include ProAir, Flexeril, Zyrtec, Advair, hydrochlorothiazide, promethazine, Celexa, Valtrex, Relpax, Cardizem, atorvastatin, modafinil. Laboratory evaluation from October 25, 2020 show sedimentation rate of 10.0. CRP of 0.2, iron of 74 with an 18% iron saturation. CBC shows a hemoglobin of 13.2 with a white blood cell count of 8.5 and a platelet count of 475,000. White blood cell differential is normal. MCV is 93.0. Previous CBC from October 21, 2020 again with normal white blood cells and hemoglobin with a platelet count of 494. Also her RDW was mildly increased. Her mother had lymphoma in her 40s. at 60 of [place]. She had 6 first trimester miscarriages, one ectopic and one healthy . She now has a health daughter born in 2017. She otherwise feels well. her cousin has a blood clotting disease. She struggles with narcolepsy. she has gained a lot of weight over last 4 years. she takes modafenil. she gets headaches daily. No history of known thrombosis. she has never had mammogram. Subjective/ROS - Narrative: Constitutional: [No fever or weight loss.] Eyes: [No visual changes or eye pain.] Ear, Nose and throat: [No congestion, sore throat, sinusitis or ear pain.] Cardiovascular: [No palpitations, dyspnea on exertion, edema, syncope or claudication.] Respiratory: [History of obstructive sleep apnea on BiPAP machine, and asthma.] Gastrointestinal: [No abdominal pain, hematemesis, melena, nausea, vomiting, diarrhea, or reflux disease.] Genitourinary: [No dysuria, urgency, or burning with urination.] Musculoskeletal: [No muscle or joint pain. No current cervical, thoracic or lumbar pain or immobility.] Skin: [No rash, pruritus, ulcerations.] Neurologic: [Reports daytime nightmares while taking showers. No headache, vertigo, weakness, numbness or tingling. No syncope described.] Endocrine: [No polyuria, polydipsia, heat or cold intolerance. No history of thyroid disease.] Psychiatric: [No hallucinations, new stressors, or change in sleep patterns.] Hematologic: [No abnormal bleeding or bruising. No lymphadenopathy noted.] Immunologic: [No history of frequent infections or delayed wound healing.] [facility] - Medical History Medical History: Medical History (Last Reviewed 11/18/20 @ 14:31 by Tawana Black) Abnormal ECG Asthma Displaced comminuted fracture of shaft of right tibia Ectopic Gestational diabetes mellitus High risk due to assisted reproductive technology Infertility Miscarriage x2 Missed OCD (obsessive compulsive disorder) ROBYN (obstructive sleep apnea) Seasonal allergies - Surgical History Surgical History: Surgical History (Last Reviewed 11/18/20 @ 14:31 by Tawana Black) History of carpal tunnel release History of cholecystectomy History of colposcopy - Family History Family History: Family History (Last Reviewed 11/18/20 @ 14:31 by Tawana Black) Grandparent Hypertension Brain cancer Lung cancer Grandparent Hypertension Grandparent Hypertension Grandparent Hypertension Mother Lymphoma OCD (obsessive compulsive disorder) Heart attack Hypertension Sister OCD (obsessive compulsive disorder) Migraines Father Heart attack Heart disease Hypertension OCD (obsessive compulsive disorder) - Social History Smoking Status: Never smoker Substance Use Type: None Home Medications & Allergies Allergies clarithromycin Allergy (Verified 11/18/20 14:30) Unknown Reaction sulfanilamide Allergy (Verified 11/18/20 14:30) Unknown Reaction Home Medications albuterol sulfate 90 mcg/actuation aerosol inhaler (ProAir HFA) 2 puff INHALATION Q4-6H PRN 11/18/20 [History Confirmed 03/13/21] atorvastatin 10 mg tablet 10 mg PO DAILY 11/18/20 [History Confirmed 03/13/21] cetirizine 10 mg tablet 10 mg PO DAILY PRN 11/18/20 [History Confirmed 03/13/21] citalopram 40 mg tablet 20 mg PO DIRECTED 11/18/20 [History Confirmed 03/13/21] cyclobenzaprine 5 mg tablet 5 mg PO DIRECTED PRN 11/18/20 [History Confirmed 03/13/21] diltiazem HCl 120 mg capsule,extended release 24 hr, controlled 120 mg PO DAILY 11/18/20 [History Confirmed 03/13/21] eletriptan 40 mg tablet (Relpax) 40 mg PO DIRECTED PRN 11/18/20 [History Confirmed 03/13/21] fluticasone 500 mcg-salmeterol 50 mcg/dose blistr powdr for inhalation (Advair Diskus) 1 ea INHALATION BID 11/18/20 [History Confirmed 03/13/21] fluticasone propionate 50 mcg/actuation nasal spray,suspension 1 spray INTRANASAL DAILY 11/18/20 [History Confirmed 03/13/21] omeprazole 40 mg capsule,delayed release 40 mg PO DAILY 11/18/20 [History Confirmed 03/13/21] promethazine 25 mg tablet 25 mg PO BID 11/18/20 [History Confirmed 03/13/21] valacyclovir 500 mg tablet (Valtrex) 500 mg PO DAILY 11/18/20 [History Confirmed 03/13/21] dextroamphetamine-amphetamine 20 mg tablet (Adderall) 20 mg PO BID 03/13/21 [History Confirmed 03/13/21] Objective - Height/Weight Height/Weight: Height 5 ft Weight 85.684 kg - Vital Signs Vital Signs: 03/13/21 09:13 Temperature 98.1 F Pulse Rate [Right Brachial] 95 H Respiratory Rate 20 Blood Pressure [Right Arm] 133/81 02 Sat by Pulse Oximetry 97 - Emotional Needs Assessment Emotional Needs Assessment: Emotional Needs Identified? No Physical Exam Narrative: CONSTITUTIONAL: [No apparent distress. Alert, oriented.] HEAD: [Normocephalic, atraumatic.] EYES: [EOMI. Pupils equal and reactive. Conjunctiva normal.] ENT: [External auditory canals wnl. No rhinorrhea. No pharyngeal exudates or erythema.] NECK: [Supple, no adenopathy.] LYMPH NODES: [No palpable lymph nodes.] LUNGS: [No distress. Lungs clear bilaterally. No wheezes, rales or rhonchi.] CARDIOVASCULAR: [Regular rate and rhythm. No murmurs. Symmetric palpable radial and dorsalis pedis pulses.] ABDOMEN: [Soft, non-tender, non-distended. Normal bowel sounds.] BACK: [No midline or paraspinal tenderness.] SKIN: [Intact. No rash. No trauma.] NEUROLOGIC: [II-XII Cranial nerves grossly intact. No focal neurologic deficits.] PSYCHIATRIC: [Mood is appropriate.] Results - Labs Labs: Diagram of Most Recent CBC and CMP 03/08/21 11:52 03/08/21 11:52 Labs - Last 7 Days 03/08/21 11:52: PHA Creatinine Clear 96.83, Sodium 138, Potassium 3.4 L, Chloride 103, Carbon Dioxide 26.9, BUN 9, Creatinine 0.74, Est GFR ( Amer) > 60, Est GFR (Non-Af Amer) > 60, Glucose 123 H, Calcium 8.9, Iron 116, TIBC 314, Iron Saturation 36.0, Transferrin 224, Ferritin 199.8, Total Bilirubin 0.8, AST 30, ALT 55, Alkaline Phosphatase 52, Total Protein 6.3, Albumin 4.1, Globulin 2.2, Albumin/Globulin Ratio 1.9 03/08/21 11:52: Corrected WBC 8.4, Uncorrected WBC Count 8.4, RBC 4.07, Hgb 13.8, Hct 39.5, MCV 97.0, MCH 34.0, MCHC 35.1 H, RDW 14.4, Plt Count 369, MPV 7.2, Neut % (Auto) 67.8, Lymph % (Auto) 21.7, [place] % (Auto) 6.5, Eos % (Auto) 2.9, Baso % (Auto) 1.1, Neut # (Auto) 5.7, Lymph # (Auto) 1.8, [place] # (Auto) 0.5, Eos # (Auto) 0.2, Baso # (Auto) 0.1, Nucleated RBC % (auto) 0.1 Assessment and Plan (1) Thrombocytosis Mild thrombocytosis was most likely reactive, has resolved since. On today's lab her platelet count is completely normal. We will continue to monitor. She will call her PCP regarding her daytime nightmares. (2) Anemia Qualifiers: Iron deficiency anemia type: chronic blood loss Iron deficiency, resolved after Injectafer infusions. I think her iron deficiency is most likely from her menstrual cycles which are heavy for the first couple days. She denies blood in the stools or black tarry stools. She had EGD and the colonoscopy while she was in college. She has not had a colonoscopy ever since then. She denies family history of colorectal cancer. Imentioned stool cards looking for occult blood but she wants to wait. She will follow up in [address] Melo. - Time with Patient Time Spent with Patient (Follow Up Visit): 25 minutes Coordination of Care & Counseling Time: Greater than 50% of time spent with patient was for coordination of care (as documented) and [id number] counseling of patient and/or family. Dictated By: John Cowan MD DD/ Signed By: <Electronically signed by John Cowan MD> 03/13/21 0957 [facility] Work Phone: [phone] 651-391703-19-2021 Progress note Author Cheng Almaguer [facility] November 18, 2020 5:11pm Note Date/Time November 18, 2020 2:4 6pm [facility] [place] [address] Hem/Onc Follow Up Note - OP Signed with Addenda Patient: Linda Alvarado MR#: [id number] : 1975 Acct:[id number] Age/Sex: 45 / F Type: REG RCR Copies to: MD Gita Navarrete II, PA-C~ ADDENDUM1 I wrote two notes for today, consider this one void. the second one is updated with lab data and a different plan. Addendum Dictated By: Cheng Almaguer II, DO Addendum Signed By: 11/18/201710 Addendum Cosigned By: DD/ TD/TT: 11/18/20 Subjective Date/Time of Service: Date of Service: 11/18/2020 Time of Service: 14:45 Chief Complaint: Patient is here today for a referral from LISHA Dhaliwal for elevated platelets HPI: 45-year-old female primary patient of Gita Garcia nurse practitioner in [facility]. She is referred for thrombocytosis. Past medical history includes asthma, hypertension, hypercholesterolemia, migraine headaches, allergic rhinitis, tachycardia, history of gestational diabetes, thrombocytopenia. Obstructive sleep apnea, OCD. Outpatient medication include ProAir, Flexeril, Zyrtec, Advair, hydrochlorothiazide, promethazine,Celexa, Valtrex, Relpax, Cardizem, atorvastatin, modafinil. Laboratory evaluation from October 25, 2020 show sedimentation rate of 10.0. CRP of 0.2, iron of 74 with an 18% iron saturation. CBC shows a hemoglobin of 13.2 with a white blood cell count of 8.5 and a platelet count of 475,000. White blood cell differential is normal. MCV is 93.0. Previous CBC from October 21, 2020 again with normal white blood cells and hemoglobin with a platelet count of 494. Also her RDW was mildly increased. Her mother had lymphoma in her 40s. at 60 of MD. She had 6 first trimester miscarriages, one ectopic and one healthy . She now has a health daughter born in 2017. She otherwise feels well. her cousin has a blood clotting disease. She struggles with narcolepsy. she has gained a lot of weight over last 4 years. she takes modafenil. she gets headaches daily. No history of known thrombosis. she has never had mammogram. [facility] - Medical History Medical History: Medical History (Last Reviewed 11/18/20 @ 14:31 by Tawana Black) Abnormal ECG Asthma Displaced comminuted fracture of shaft of right tibia Ectopic Gestational diabetes mellitus High risk due to assisted reproductive technology Infertility Miscarriage x2 Missed OCD (obsessive compulsive disorder) ROBYN (obstructive sleep apnea) Seasonal allergies - Surgical History Surgical History: Surgical History (Last Reviewed 11/18/20 @ 14:31 by Tawana Black) History of carpal tunnel release History of cholecystectomy History of colposcopy - Family History Family History: Family History (Last Reviewed 11/18/20 @ 14:31 by Tawana Black) Grandparent Hypertension Brain cancer Lung cancer Grandparent Hypertension Grandparent Hypertension Grandparent Hypertension Mother Lymphoma OCD (obsessive compulsive disorder) Heart attack Hypertension Sister OCD (obsessive compulsive disorder) Migraines Father Heart attack Heart disease Hypertension OCD (obsessive compulsive disorder) - Social History Smoking Status: Never smoker Substance Use Type: None Home Medications & Allergies Allergies clarithromycin Allergy (Verified 11/18/20 14:30) Unknown Reaction sulfanilamide Allergy (Verified 11/18/20 14:30) Unknown Reaction Home Medications albuterol sulfate [ProAir HFA] 2 puff INHALATION Q4-6H PRN 11/18/20 [History Confirmed 11/18/20] atorvastatin 10 mg PO DAILY 11/18/20 [History Confirmed 11/18/20] cetirizine 10 mg PO DAILY PRN 11/18/20 [History Confirmed 11/18/20] citalopram 20 mg PO DIRECTED 11/18/20 [History Confirmed 11/18/20] cyclobenzaprine 5 mg PO DIRECTED PRN 11/18/20 [History Confirmed 11/18/20] diltiazem HCl 120 mg PO DAILY 11/18/20 [History Confirmed 11/18/20] eletriptan [Relpax] 40 mg PO DIRECTED PRN 11/18/20 [History Confirmed 11/18/20] fluticasone propion-salmeterol [Advair Diskus] 1 ea INHALATION BID 11/18/20 [History Confirmed 11/18/20] fluticasone propionate [Flonase] 1 spray INTRANASAL DAILY 11/18/20 [History Confirmed 11/18/20] modafinil 200 mg PO BID 11/18/20 [History Confirmed 11/18/20] omeprazole 40 mg PO DAILY 11/18/20 [History Confirmed 11/18/20] promethazine 25 mg PO BID 11/18/20 [History Confirmed 11/18/20] valacyclovir [Valtrex] 500 mg PO DAILY 11/18/20 [History Confirmed 11/18/20] Objective - Height/Weight Height/Weight: Height 5 ft Weight 89.811 kg - Vital Signs Vital Signs: 11/18/20 14:37 Pulse Rate [Left Brachial] 95 H Respiratory Rate 20 Blood Pressure [Left Arm] 142/82 H 02 Sat by Pulse Oximetry 95 - Emotional Needs Assessment Emotional Needs Assessment: Emotional Needs Identified? No Physical Exam Narrative: ECOG PS: 0 General : patient is alert and oriented to person place and time, no acute distress. Neck: no JVD or thyromegaly. Lymph: no cervical, supraclavicular, axillary adenopathy. Heart: regular rate and rhythm no murmurs rubs or gallops. Abdomen: soft nontender nondistended, no hepatosplenomegaly. Lungs: clear to auscultation bilaterally. No wheezes, rales, rhonchi. Extremities: no clubbing cyanosis or edema. t Assessment and Plan (1) Thrombocytosis Mildly elevated platelet count longstanding per pateint although i dont have access to ECW. We will check JAK2, although unlikely positive with mild elevation in plt only. will check her ferritin, recheck iron studies. - Time with Patient Coordination of Care & Counseling Time: Greater than 50% of time spent with patient was for coordination of care (as documented) and [id number] counseling of patient and/or family. Attestation Statement - Physician Attestation cbc, cmp, ferritin, iron, iron sat. Jak2. she will call to discsuss results. f/u with me 1 year. Dictated By: Cheng Almaguer II, DO DD/ 1445 Signed By: <Electronically signed by Cheng Almaguer II, DO> 11/18/[address] [facility] Work Phone: [phone] Progress note Author Cheng Almaguer [facility] November 18, 2020 5:10pm Note Date/Time November 18, 2020 5:1 0pm [facility] [place] [address] Hem/Onc Follow Up Note - OP Signed Patient: Linda Alvarado MR#: [id number] : 1975 Acct:[id number] Age/Sex: 45 / F Type: REG RCR Copies to: MD Gita Navarrete II, PA-C~ Subjective Date/Time of Service: Date of Service: 11/18/2020 Time of Service: 17:09 Chief Complaint: Patient is here today for a referral from LISHA Dhaliwal for elevated platelets HPI: 45-year-old female primary patient of Gita Garcia nurse practitioner in [facility]. She is referred for thrombocytosis. Past medical history includes asthma, hypertension, hypercholesterolemia, migraine headaches, allergic rhinitis, tachycardia, history of gestational diabetes, thrombocytopenia. Obstructive sleep apnea, OCD. Outpatient medication include ProAir, Flexeril, Zyrtec, Advair, hydrochlorothiazide, promethazine, Celexa, Valtrex, Relpax, Cardizem, atorvastatin, modafinil. Laboratory evaluation from October 25, 2020 show sedimentation rate of 10.0. CRP of 0.2, iron of 74 with an 18% iron saturation. CBC shows a hemoglobin of 13.2 with a white blood cell count of 8.5 and a platelet count of 475,000. White blood cell differential is normal. MCV is 93.0. Previous CBC from October 21, 2020 again with normal white blood cells and hemoglobin with a platelet count of 494. Also her RDW was mildly increased. Her mother had lymphoma in her 40s. at 60 of MD. She had 6 first trimester miscarriages, one ectopic and one healthy . She now has a health daughter born in 2017. She otherwise feels well. her cousin has a blood clotting disease. She struggles with narcolepsy. she has gained a lot of weight over last 4 years. she takes modafenil. she gets headaches daily. No history of known thrombosis. she has never had mammogram. [facility] - Medical History Medical History: Medical History (Last Reviewed 11/18/20 @ 14:31 by Tawana Black) Abnormal ECG Asthma Displaced comminuted fracture of shaft of right tibia Ectopic Gestational diabetes mellitus High risk due to assisted reproductive technology Infertility Miscarriage x2 Missed OCD (obsessive compulsive disorder) ROBYN (obstructive sleep apnea) Seasonal allergies - Surgical History Surgical History: Surgical History (Last Reviewed 11/18/20 @ 14:31 by Tawana Black) History of carpal tunnel release History of cholecystectomy History of colposcopy - Family History Family History: Family History (Last Reviewed 11/18/20 @ 14:31 by Tawana Black) Grandparent Hypertension Brain cancer Lung cancer Grandparent Hypertension Grandparent Hypertension Grandparent Hypertension Mother Lymphoma OCD (obsessive compulsive disorder) Heart attack Hypertension Sister OCD (obsessive compulsive disorder) Migraines Father Heart attack Heart disease Hypertension OCD (obsessive compulsive disorder) - Social History Smoking Status: Never smoker Substance Use Type: None Home Medications & Allergies Allergies clarithromycin Allergy (Verified 11/18/20 14:30) Unknown Reaction sulfanilamide Allergy (Verified 11/18/20 14:30) Unknown Reaction Home Medications albuterol sulfate [ProAir HFA] 2 puff INHALATION Q4-6H PRN 11/18/20 [History Confirmed 11/18/20] atorvastatin 10 mg PO DAILY 11/18/20 [History Confirmed 11/18/20] cetirizine 10 mg PO DAILY PRN 11/18/20 [History Confirmed 11/18/20] citalopram 20 mg PO DIRECTED 11/18/20 [History Confirmed 11/18/20] cyclobenzaprine 5 mg PO DIRECTED PRN 11/18/20 [History Confirmed 11/18/20] diltiazem HCl 120 mg PO DAILY 11/18/20 [History Confirmed 11/18/20] eletriptan [Relpax] 40 mg PO DIRECTED PRN 11/18/20 [History Confirmed 11/18/20] fluticasone propion-salmeterol [Advair Diskus] 1 ea INHALATION BID 11/18/20 [History Confirmed 11/18/20] fluticasone propionate [Flonase] 1 spray INTRANASAL DAILY 11/18/20 [History Confirmed 11/18/20] modafinil 200 mg PO BID 11/18/20 [History Confirmed 11/18/20] omeprazole 40 mg PO DAILY 11/18/20 [History Confirmed 11/18/20] promethazine 25 mg PO BID 11/18/20 [History Confirmed 11/18/20] valacyclovir [Valtrex] 500 mg PO DAILY 11/18/20 [History Confirmed 11/18/20] Objective - Height/Weight Height/Weight: Height 5 ft Weight 89.811 kg - Vital Signs Vital Signs: 11/18/20 14:37 Pulse Rate [Left Brachial] 95 H Respiratory Rate 20 Blood Pressure [Left Arm] 142/82 H 02 Sat by Pulse Oximetry 95 - Emotional Needs Assessment Emotional Needs Assessment: Emotional Needs Identified? No Physical Exam Narrative: ECOG PS: 0 General : patient is alert and oriented to person place and time, no acute distress. Neck: no JVD or thyromegaly. Lymph: no cervical, supraclavicular, axillary adenopathy. Heart: regular rate and rhythm no murmurs rubs or gallops. Abdomen: soft nontender nondistended, no hepatosplenomegaly. Lungs: clear to auscultation bilaterally. No wheezes, rales, rhonchi. Extremities: no clubbing cyanosis or edema. t Results - Labs Labs: Diagram of Most Recent CBC and CMP 11/18/20 15:22 11/18/20 15:22 Labs - Last 7 Days 11/18/20 15:22: PHA Creatinine Clear 95.54, Sodium 137, Potassium 3.6, Chloride 101, Carbon Dioxide 28.4, BUN 7 L, Creatinine 0.75, Est GFR ( Amer) > 60,Est GFR (Non-Af Amer) > 60, Glucose 132 H, Calcium 9.0, Iron 63, TIBC 441, Iron Saturation 14.0 L, Transferrin 315, Ferritin 8.5 L, Total Bilirubin 0.7, AST 23,ALT 38, Alkaline Phosphatase 66, Total Protein 7.0, Albumin 4.0, Globulin 3.0, Albumin/Globulin Ratio 1.3 11/18/20 15:22: Corrected WBC 10.5, Uncorrected WBC Count 10.5, RBC 4.22, Hgb 13.3, Hct 38.6, MCV 91.4, MCH 31.5, MCHC 34.4, RDW 15.4 H, Plt Count 432, MPV 7.1, Neut % (Auto) 70.1, Lymph % (Auto) 22.2, [place] % (Auto) 4.9, Eos % (Auto) 2.0, Baso % (Auto) 0.8, Neut # (Auto) 7.4, Lymph # (Auto) 2.3, [place] # (Auto) 0.5, Eos # (Auto) 0.2, Baso # (Auto) 0.1, Nucleated RBC % (auto) 0.0 Assessment and Plan (1) Thrombocytosis Mildly elevated platelet count This is secondary to iron deficiency. I have discussed with her iron deficiency extensively and we will repeat her iron intravenously. She does not tolerate oral iron. We will give 2 doses of IV Injectafer and follow-up with me in 3 months. Prior to follow-up check CBC, CMP, iron, ferritin, iron binding capacity. - Time with Patient Coordination of Care & Counseling Time: Greater than 50% of time spent with patient was for coordination of care (as documented) and [id number] counseling of patient and/or family. Attestation Statement - Physician Attestation We will give 2 doses of IV Injectafer and follow-up with me in 3 months. Prior to follow-up check CBC, CMP, iron, ferritin, iron binding capacity. Dictated By: Cheng Almaguer II, DO DD/ 170 Signed By: <Electronically signed by Cheng Almaguer II, DO> 11/18/20 1710 [facility] Work Phone: Evaluation noteNo assessment information available [facility] Work Phone: Evaluation noteNo InformationNort [employer] Other Evaluation note* Diagnosis Wellness examination- Primary Excessive daytime sleepiness Obstructive sleep apnea Obstructive sleep apnea (adult) (pediatric) Tachycardia Unspecified tachycardia Abnormal electrocardiogram Nonspecific abnormal electrocardiogram (ECG) (EKG) Gastroesophageal reflux disease without esophagitis Esophageal reflux Female infertility Female infertility of unspecified origin Ankle edema Edema Impaired fasting glucose Iron deficiency Disorders of iron metabolism Obesity (BMI 30-39.9) Thrombocythemia Essential thrombocythemia Anemia, unspecified type Elevated ALT measurement History of gestational diabetes Personal history of other genital system and obstetric disorders History of tibial fracture Mixed hyperlipidemia (CMS/HCC) Mixed hyperlipidemia Obsessive-compulsive disorder, unspecified type (CMS/HCC) Other allergic rhinitis Bilateral leg pain Pain in soft tissues of limb Weight gain Other symptoms concerning nutrition, metabolism, and development documented [facility] this encounter [facility] Diagnosis Nevus Benign neoplasm of skin, site unspecified Perioral dermatitis Rosacea documented in this encounter [facility]* Diagnosis Onset Date Resolution Status Cellulitis of left lower leg noneactive [facility] Work Phone: Evaluation note* Diagnosis Onset Date Resolution Status Cellulitis of left lower leg noneactive Dysuria noneactive [facility] Work Phone: Evaluation note* Diagnosis Onset Date Resolution Status Cellulitis of left lower leg noneactive Abdominal pain acute Hypnagogic hallucinations ac seven Narcolepsy and cataplexy acu te OCD (obsessive compulsive disorder) acute ROBYN (obstructive sleep apnea) acute Sleep paralysis acute [facility] Work Phone: Hispvlj general Narrative - Reported* Type Description Date Medical History allergies Medical History asthma Medical History OCD (obsessive compulsive disord er) Medical History Herpes Medical History ROBYN -Auto BiPAP with maximum of 14 minimum of 5 with pressure support of 4. Surgical History D&C Surgical History cholecystectomy Surgical History carpal tunnel release Surgical History C section Hospitalization History see above [facility] Other History general Narrative - Reported* Type Description Date Medical History allergies Medical History asthma Medical History OCD (obsessive compulsive disord er) Medical History Herpes Medical History ROBYN -Auto BiPAP with maximum of 14 minimum of 5 with pressure support of 4. Medical History suspected narcolepsy - EDS, clinical cataplexy, inconclusive PSG/MSLT Surgical History D&C Surgical History cholecystectomy Surgical History carpal tunnel release Surgical History C section Hospitalization History see above [facility] Other Hiskcbn general Narrative - Reported* Type Description Date Medical History allergies Medical History asthma Medical History OCD (obsessive compulsive disord er) Medical History Herpes Medical History ROBYN -Auto BiPAP Medical History suspected narcolepsy - EDS, clinical cataplexy, inconclusive PSG/MSLT Surgical History D&C Surgical History cholecystectomy Surgical History carpal tunnel release Surgical History C section Hospitalization History see above [facility] Other Summary Purpose Family History No Family History Records Found Relationship Condition Age at Onset Recorded Date/T loco grandparent Hypertension Unknown Malignant neoplasm of brain Unknown Malignant neoplasm of lung Unknown Not Specified Lymphoma Unknown Obsessive-compulsive disorder Unknown Myocardial infarction Unknown Hypertension Unknown sister Obsessive-compulsive disorder Unknown Migraine headache Unknown father Myocardial infarction Unknown Heart disease Unknown Relationship Condition Age at Onset Recorded Date/T loco grandparent Hypertension Unknown Malignant neoplasm of brain Unknown Malignant neoplasm of lung Unknown Not Specified Lymphoma Unknown Obsessive-compulsive disorder Unknown Myocardial infarction Unknown Hypertension Unknown sister Obsessive-compulsive disorder Unknown Migraine headache Unknown father Myocardial infarction Unknown Heart disease Unknown father Heart disease Unknown Unknown grandparent Unknown Not Specified Heart disease Unknown Relationship Condition Age at Onset Recorded Date/T loco grandparent Hypertension Unknown Malignant neoplasm of brain Unknown Malignant neoplasm of lung Unknown mother Lymphoma Unknown Obsessive-compulsive disorder Unknown Myocardial infarction Unknown Hypertension Unknown sister Obsessive-compulsive disorder Unknown Migraine headache Unknown father Myocardial infarction Unknown Heart disease Unknown father Heart disease Unknown Unknown grandparent Unknown mother Heart disease Unknown Advance Directives No Advanced Directives Records Found Advance Directive Response Recorded Date/ Time Advance Directives No June 03, 2017 10:15am Advance Directive Response Recorded Date/ Time Advance Directives No June 03, 2017 9:15am Hospital Course Note MR#: [id number] [facility] Pt. Name: Linda Alvarado Admitted: 07/07/2019 Discharged: 07/13/2019 Date of : 1975 Physician: Ian Ku M.D. DISCHARGE SUMMARY DISCHARGE DIAGNOSIS: Right Schatzker II tibial plateau fracture. PROCEDURES PERFORMED: At this admission; open reduction and internal fixation, right tibial plateau fracture, on 07/07/2019. CONSULTED SERVICES: None. HISTORY OF PRESENT ILLNESS AND HOSPITAL COURSE: The patient is a 44-year-old female, who presented to our facility after a fall with right knee pain. She was found on imaging studies to have a Schatzker II lateral tibial plateau fracture and subsequently underwent open reduction and internal fixation on 07/07/2019. She was admitted to the Orthopedic Service and Physical and Occupational Therapy were consulted. Routine pain medications and DVT prophylaxis were prescribed. The patient received 24 hours of postoperative antibiotics. Upon evaluation by Physical Therapy, she was fo (more content not included)... Chief Complaint and Reason for Visit Chief Complaint narco, robyn Chief Complaint robyn-narco Chief Complaint robyn-narco 1 MONTH/ ROBYN & NARCO/ START OF NEW MED Chief Complaint viritual-3month robyn& narco Chief Complaint Skin irritation Reason for Visit Cellulitis of left l ower leg Chief Complaint Skin irritation poss UTI Reason for Visit Cellulitis of left l ower leg Dysuria Chief Complaint Skin irritation poss UTI narco/robyn Reason for Visit Cellulitis of left l ower leg Abdominal pain Hypnagogic hallucinations Narcolepsy and cataplexy OCD (obsessive compulsive disorder) ROBYN (obstructive sleep apnea) Sleep paralysis Chief Complaint Narcolepsy Additional Source Comments INFORMATION SOURCE (unrecogn ized section and content) DATE CREATED AUTHOR 03/28/2018 [facility] DATE CREATED AUTHOR AUTHOR'S ORGANIZ ATION 03/29/2018 [facility] DATE CREATED AUTHOR AUTHOR'S ORGANIZ ATION 07/08/2019 [facility] DATE CREATED AUTHOR AUTHOR'S ORGANIZ ATION 04/05/2020 [facility] DATE CREATED AUTHOR AUTHOR'S ORGANIZ ATION 09/19/2021 [facility] DATE CREATED AUTHOR AUTHOR'S ORGANIZ ATION 05/15/2024 [facility] EPIC DATE CREATED AUTHOR AUTHOR'S ORGANIZ ATION 05/30/2024 [facility] REASON FOR VISIT (unrecogniz ed section and content) Reason Comments Follow-up Reason Comments Med Refill Hydrochlorothiazide Refill- Advair1 yr f/u Asthma, COPDRX RefillsSORE ON RIGHT LOWER LEGscriptrx changeRefills- AdvairRX Refillrefill Care Teams (unrecognized sec tion and content) Team Status: Inactive Member Role Status Dates Elver Mendenhall II MD Primary Care Provider Active Jane Waller MD Attending Provider Active Team Status: Active Member Role Status Dates Elver Mendenhall II MD Primary Care Provider Active Team Status: Inactive Member Role Status Dates Elver Mendenhall II MD Primary Care Provider Active Jane Waller MD Attending Provider Active Band Cutter Relationship Specialty Start Date End Date Elver Mendenhall MD [address] [facility] [address] [place] [address] PCP - General Internal Medicine 03/27/23 Band Cutter Relationship Specialty Start Date End Date Elver Mendenhall MD [address] [facility] [address] [place] [address] PCP - General Internal Medicine 03/27/23 Band Cutter Relationship Specialty Start Date End Date Elver Mendenhall MD [address] [facility] [address] [place] [address] PCP - General Internal Medicine 03/27/23 Team Status: Inactive Member Role Status Dates Elver Mendenhall II MD Primary Care Provider Active Start: December 25, 2023 End: December 25, 2023 Dari Yesenia , [employer]ARMACY [employer]ER-C Attending Provider Active S tart: December 25, 2023 End: December 25, 2023 Team Status: Inactive Member Role Status Dates Elver Mendenhall II MD Primary Care Provider Active Start: January 09, 2024 End: January 09, 2024 Abiola Rodríguez APRN Attending Provider Active Start: January 09, 2024 End: January 09, 2024 Team Status: Inactive Member Role Status Dates Elver Mendenhall II MD Primary Care Provider Active Start: January 30, 2024 End: January 30, 2024 Jane Waller MD Attending Provider Active S tart: January 30, 2024 End: January 30, 2024 Team Status: Inactive Member Role Status Dates Elver Mendenhall II MD Primary Care Provider Active Start: May 19, 2024 End: May 19, 2024 Jane Waller MD Attending Provider Active S tart: May 19, 2024 End: May 19, 2024 Team Status: Inactive Member Role Status Dates Jane Waller MD Attending Provider Active S tart: May 20, 2024 End: May 20, 2024 Goals (unrecognized section and content) Goals may be documented in a n alternate section FOR RECORDS PERTAINING TO PATIENTS WHO ARE OR HAVE BEEN ENROLLED IN A CHEMICAL DEPENDENCY/SUBSTANCEABUSE PROGRAM, SOME INFORMATION MAY BE OMITTED. This clinical summary was aggregated from multiple sources. Caution should be exercised in using it in the provision of clinical care. This summary normalizes information from multiple sources, and as a consequence, information in this document may materially change the coding, format and clinical context of patient data. In addition, data may be omitted in some cases. CLINICAL DECISIONS SHOULD BE BASED ON THE PRIMARY CLINICAL RECORDS. [employer] provides no warranty or guarantee of the accuracy or completeness of information in this document.
--- NOTE | 2024-05-30 21:06 | ECG_ITS ---
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
[2024-05-30 21:18] LABS: Anion Gap 7.1; Calcium 8.4 mg/dL (8.5-10.1); Carbon Dioxide 34.6 mmol/L (21.0-32.0); Chloride 101 mmol/L (98-107); Estimated GFR (African America >60 (>=60); Estimated GFR (Non-African Ame 59 (>=60); Glucose 157 mg/dL (74-106); Magnesium 1.6 mg/dL (1.8-2.4); Sodium 140 mmol/L (136-145)
--- NOTE | 2024-05-30 21:28 | ED_ITS ---
HPI HPI - General Adult General Chief complaint: Recheck/Abnormal Lab/Rx Stated complaint: CLINIC REFERRAL, DIZZINESS Time Seen by Provider: 05/30/24 20:24 Source: patient Mode of arrival: walk-in History of Present Illness HPI narrative: 48-year-old female to the emergency department with chief complaint of hypokalemia. Patient reports recent potassium draws of 2.6 and 2.8. She has been self limiting 40-80 mill equivalents daily per her primary care doctor's instructions. She is also on torsemide for some foot swelling. She was directed to the ER today because she had some tingling in her fingers that they thought may be related to the potassium so she could get IV replacement. Related Data Home Medications ?Medication ?Instructions ?Recorded ?Confirmed atorvastatin 10 mg tablet 10 mg PO DAILY 05/03/23 05/30/24 citalopram 40 mg tablet 20 mg PO DAILY 05/03/23 05/30/24 dextroamphetamine-amphetamine 20 20 mg PO DAILY 05/03/23 05/30/24 mg tablet diltiazem HCl 120 mg 120 mg PO DAILY 05/03/23 05/30/24 capsule,extended release 24 hr hydrochlorothiazide 25 mg tablet 25 mg PO Q12H PRN edema 05/03/23 05/30/24 omeprazole 40 mg capsule,delayed 40 mg PO BID 05/03/23 05/30/24 release solriamfetol 150 mg tablet (Sunosi) 150 mg PO DAILY 05/03/23 05/30/24 valacyclovir 500 mg tablet 500 mg PO DAILY 05/03/23 05/30/24 eletriptan 40 mg tablet mg 05/30/24 fluticasone 500 mcg-salmeterol 50 inhalation 05/30/24 mcg/dose blistr powdr for inhalation fluticasone propionate 50 intranasal 05/30/24 mcg/actuation nasal spray,suspension potassium chloride 10 mEq meq PO 05/30/24 tablet,extended release(part/cryst) (Klor-Con M) torsemide 10 mg tablet mg 05/30/24 Previous Rx's ?Medication ?Instructions ?Recorded dicyclomine 20 mg tablet 20 mg PO QID PRN abdominal pain 01/09/24 #12 tabs hydrocodone 5 mg-acetaminophen 325 1 tab PO Q6H PRN pain #8 tabs 01/09/24 mg tablet ketorolac 10 mg tablet 10 mg PO TID PRN pain #10 tabs 01/09/24 ondansetron 4 mg disintegrating 4 mg PO Q6H PRN nausea and 01/09/24 tablet vomiting #12 tabs Allergies Allergy/AdvReac Type Severity Reaction Status Date / Time sulfamethoxazole Allergy unknown Verified 05/30/24 20:28 [From Bactrim] trimethoprim [From Bactrim] Allergy unknown Verified 05/30/24 20:28 Sulfa (Sulfonamide AdvReac Mild Unknown Verified 05/30/24 20:28 Antibiotics) Opioid HPI Opioid Management Most Recent Opioid Data: Last Pain Scale 7 01/09/24 19:48 Review of Systems ROS Status of ROS 10 or more systems reviewed and unremark able except as noted in history and below [facility] Social History Smoking 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 smoker Little interest or pleasure in doing things: not at all Feeling down, depressed, or hopeless: not at all Exam Narrative Exam Narrative: VITALS: I have reviewed the triage vital signs. GENERAL: Well developed, well appearing adult in no acute distress. NEURO: Alert and oriented. Moves all extremities. Face is symmetric and expressive. EYES: PERRL. No scleral icterus or conjunctival injection. No discharge. HENT: Normocephalic, atraumatic. Hearing is grossly intact. Nares grossly patent and without discharge. Mucous membranes moist. NECK: No JVD. Patient moves neck without restriction. EXTREMITIES: Symmetric muscle bulk. No joint swelling. No clubbing, cyanosis, or deformity. SKIN: Warm and dry. Normal turgor. No rash or lesions appreciated. PSYCH: Mood, affect, and interaction is appropriate to the setting. Constitutional Vital Signs, click to edit/add: Last Vital Signs Temp 98.2 F 05/30/24 20:22 Pulse 92 H 05/30/24 22:20 Resp 22 H 05/30/24 22:20 BP 130/89 05/30/24 20:22 Pulse Ox 95 05/30/24 20:22 Course Vital Signs Vital signs: Vital Signs Temperature 98.2 F 05/30/24 20:22 Pulse Rate 90 05/30/24 20:22 Respiratory Rate 16 05/30/24 20:22 Blood Pressure 130/89 05/30/24 20:22 Pulse Oximetry 95 05/30/24 20:22 Temperature 98.2 F 05/30/24 20:22 Pulse Rate 92 H 05/30/24 22:20 Respiratory Rate 22 H 05/30/24 22:20 Blood Pressure 130/89 05/30/24 20:22 Pulse Oximetry 95 05/30/24 20:22 Medical Decision Making MDM Narrative Medical decision making narrative: 48-year-old female to the emergency department with chief complaint of same level. Vital stable, the patient is afebrile. BMP, magnesium, EKG are reviewed. Lab work reviewed and noted. She does have a critical hypokalemia and a mild hypomagnesemia. 40 mill equivalents of IV potassium was ordered. 2 g of IV magnesium was ordered. Failed outpatient treatment receiving 80 mEq oral daily. Will admit the patient to the hospitalist service for IV potassium and recheck. Case discussed with Tracy and the patient was accepted. Medical Records Medical records reviewed: Yes I reviewed the patient's medical records Lab Data Lab results reviewed: Yes I reviewed the patient's lab results Labs: Lab Results 05/30/24 Range/Units 20:30 Sodium 140 (136-145) mmol/L Potassium 2.7 L* (3.5-5.1) mmol/L Chloride 101 (98-107) mmol/L Carbon Dioxide 34.6 H (21.0-32.0) mmol/L Anion Gap 7.1 BUN 14.0 (7.0-18.0) mg/dL Creatinine 1.00 (0.55-1.02) mg/dL Est GFR ( Amer) >60 (>=60) Est GFR (Non-Af Amer) 59 L (>=60) BUN/Creatinine Ratio 14.0 Glucose 157 H (74-106) mg/dL Calcium 8.4 L (8.5-10.1) mg/dL Magnesium 1.6 L (1.8-2.4) mg/dL ECG Data Attestation: I personally reviewed and interpreted this ECG as follows: (Normal sinus rhythm at a rate of 89. No STEMI. QTc 437.) Critical Care Time Critical Care Time Critical Care Time: Yes Total Critical Care Time: 30 Attestation: Critical Care Procedure Note Authorized and Performed by: Timoteo Miller DO Total critical care time: 30 min Due to a high probability of clinically significant, life threatening deterioration, the patient required my highest level of preparedness to intervene emergently and I personally spent this critical care time directly and personally managing the patient. This critical care time included obtaining a history; examining the patient; pulse oximetry; ordering and review of studies; arranging urgent treatment with development of a management plan; evaluation of patient's response to treatment; frequent reassessment; and, discussions with other providers. This critical care time was performed to assess and manage the high probability of imminent, life-threatening deterioration that could result in multi-organ failure. It was exclusive of separately billable procedures and treating other patients and teaching time. Please see MDM section and the rest of the note for further information on patient assessment and treatment. Discharge Plan Discharge Chief Complaint: Recheck/Abnormal Lab/Rx Clinical Impression: Hypokalemia Patient Disposition: Admitted as Observation Time of Disposition Decision: 22:23 Condition: Good Prescriptions / Home Meds: No Action atorvastatin 10 mg tablet 10 mg PO DAILY citalopram 40 mg tablet 20 mg PO DAILY dextroamphetamine-amphetamine 20 mg tablet 20 mg PO DAILY diltiazem HCl 120 mg capsule,extended release 24hr 120 mg PO DAILY hydrochlorothiazide 25 mg tablet 25 mg PO Q12H PRN (Reason: edema) omeprazole 40 mg capsule,delayed release(DR/EC) 40 mg PO BID Sunosi 150 mg tablet 150 mg PO DAILY valacyclovir 500 mg tablet 500 mg PO DAILY hydrocodone-acetaminophen 5-325 mg tablet 1 tab PO Q6H PRN (Reason: pain) Qty: 8 0RF ketorolac 10 mg tablet 10 mg PO TID PRN (Reason: pain) Qty: 10 0RF dicyclomine 20 mg tablet 20 mg PO QID PRN (Reason: abdominal pain) Qty: 12 0RF ondansetron 4 mg tablet,disintegrating 4 mg PO Q6H PRN (Reason: nausea and vomiting) Qty: 12 0RF torsemide 10 mg tablet fluticasone propion-salmeterol 500-50 mcg/dose blister with device INHALATION fluticasone propionate 50 mcg/actuation spray,suspension INTRANASAL eletriptan 40 mg tablet potassium chloride [Klor-Con M10] 10 mEq tablet,ER particles/crystals PO Print Language: [place]guill[place] Referrals: DOMITILA HUYNH [Primary Care Provider] - 1 week
[2024-05-30 21:30] LABS: Potassium 2.7 mmol/L (3.5-5.1)
[2024-05-30] MEDS: MAGNESIUM SULFATE IN WATER 2 GM/50 ML PREMIX IV (21:57)
[2024-05-30] MEDS: POTASSIUM CHLORIDE 10 MEQ/100 ML WATER PREMIX 100 MEQ IV ×2 (22:13→23:21)
[2024-05-30] MEDS: 0.9 % SODIUM CHLORIDE 1,000 ML 999 ML IV (22:13)
--- OUTSIDE RECORDS SUMMARY | 2024-05-30 23:43 | XMS_ITS | CCD ---
Author Organization [facility] CliniSyar Care Team Providers Care Executive Vice President And Chief Operating Officer Name Role Phone UNKNOWN, PROVIDER Unavailable Unavailable [...] DOSS Referring Unavailable IAN KU Attending Unavailable EBIAN DEL TORO Admitting Unavailable CO Procedure Practitioner Unavailab IAN [place] Surgeon Unavailable Jane Waller Unavailable Ciera Mcwilliams Unavailable Tracy Oliver Unavailable OSCAR Mendenhall Primary Care Provider MD Jane Waller. Attending Provider OSCAR Mendenhall Primary Care Provider MD Jane Waller Attending Provider [phone] Efraín Patel Unavailable OSCAR Mendenhall Primary Care Provider [phone] MD Jane Waller. Attending Provider Elver Mendenhall MD Primary Care Provider [phone] GITA GARCIA Attending Unavailable FELTER, LUBNA A Attending Unavailable SEB KITCHEN Attending Unavailable SEB KITCHEN Referring Unavailable GITA GARCIA Attending Unavailable GITA GARCIA Attending Unavailable ISADORA BARNARD Attending Unavailable OSCAR Mendenhall Primary Care Provider MD Jane Waller Attending Provider Jane Waller Admitting Unavailable Jane Waller Attending Unavailable Jane Waller Admitting Unavailable Jane Waller Attending Unavailable Elver Mendenhall Primary Care Unavailable Jane Waller Admitting Unavailable Jane Waller Attending Unavailable Elver Mendenhall Primary Care Unavailable Allergies Allergy Classification Reported Allergen(s) Allergy Type Date of Onset Reaction(s) Facility (2 sources) Morphine Drug Allergy 9 [facility] Repository (1 source) Sulfamethoxazole / Trimethoprim Drug Allergy 6 [facility] Repository (1 source) Sulfonamides (Antibiotic) Drug allergy (disorder) 9 [facility] Repository (16 sources) Clarithromycin; Translations: [clarithromycin] Drug Allergy 1 GI intolerance [facility] (11 sources) Sulfanilamide; Translations: [sulfanilamide] Drug Allergy 1 Unknown Reaction, Anaphylaxis [facility] (5 sources) Sulfonamides (Antibiotic) Drug Allergy 3 [...] Twice a day for 90 day(s) Active [id number] actuat albuterol 0.09 mg/actuat metered dose [...] Start: 06-01-2021 take 1 capsule by mo [facility] every twenty-four hours Adderall XR 20 MG [...] 11-18-2020 Fluticasone Pr opionate (Flonase) 50 mcg/actuation Steele,Suspension Active 1 SPRAY INTRANASAL Daily November 18, [...] nursing home (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 therapy; Translations: [OTH [facility] CURRENT DRUG THERAPY] Onset: 07-08-2019 Episodic Other [...] on 05-20-2024 Amphetamines Ql (U) Negative Negative [facility] Barbiturates [Presence] in U rine by Screen methodOrdered By: Jane Waller on 05-20-2024 Barbiturates Screen Ql (U) Negative Negative [facility] Benzodiazepines Screen Ql (U )Ordered By: Jane Waller on 05-20-2024 Benzodiazepines Ql (U) Negative Negative [facility] Benzoylecgonine [Presence] i n Urine by Screen methodOrdered By: Jane Waller on 05-20-2024 Benzoylecgonine Screen Ql (U) Negative Negative [facility] Cannabinoids [Presence] in U rine by Screen methodOrdered By: Jane Waller on 05-20-2024 Cannabinoids Screen Ql (U) Negative Negative [facility] Comment on above: These are unconfirme d results and should not be used for legal purposes. Drug Cut-Off Concentration: AMPH 1000 ng/mL KEITH 200 ng/mL LARS 200 ng/mL COCM 300 ng/mL OP 300 ng/mL PCP 25 ng/mL THC 20 ng/mL Drug Screen,Urineon 05-20-20 24 Amphetamine Screen,Urine Negative Normal Negative [facility] Comment on above: Performed By: #### U RDS #### [address] Barbiturate Screen,Urine Negative Normal Negative [facility] Comment on above: Performed By: #### U RDS #### [address] Benzodiazepines Screen,Urine Negative Normal Negative [facility] Comment on above: Performed By: #### U RDS #### [address] Cannabinoid Screen,Urine Negative Normal Negative [facility] Comment on above: Result Comment: Thes e are unconfirmed results and should not be used for legal purposes. Drug Cut-Off Concentration: AMPH 1000 ng/mL KEITH 200 ng/mL LARS 200 ng/mL COCM 300 ng/mL OP 300 ng/mL PCP 25 ng/mL THC 20 ng/mL PERFORMED BY: [place] [address] PATHOLOGIST [employer]ERAL [employer]IVER YENNIFER BROWN M.D. Performed By: #### U RDS #### [address] Cocaine Screen,Urine Negative Normal Negative [facility] Comment on above: Performed By: #### U RDS #### [address] Opiate Screen,Urine Negative Normal Negative [facility] Comment on above: Performed By: #### U RDS #### [address] Phencyclidine Screen,Urine Negative Normal Negative [facility] Comment on above: Performed By: #### U RDS #### [address] Opiates [Presence] in Urine by Screen methodOrdered By: Jane Waller on 05-20-2024 Opiates Screen Ql (U) Negative Negative [facility] Phencyclidine Screen Ql (U)O rdered By: Jane Waller on 05-20-2024 Phencyclidine Ql (U) Negative Negative [facility] Laboratory - Chemistry and C hemistry - challengeon 01-09-2024 Bilirubin Ql (U) Negative [facility] Glucose (U) [Mass/Vol] Negative [facility] Ketones Ql (U) Negative [facility] pH (U) 6.0 [pH] [facility] Specific gravity (U) [Rel density] 1.020 [facility] Urobilinogen (U) [Mass/Vol] 0.2 mg/dL [facility] Laboratory - Specimen inform ationon 01-09-2024 Appearance (U) clear [facility] Color (U) yellow [facility] Laboratory - Urinalysison Leukocyte esterase Test strip Ql (U) Negative [facility] Nitrite Ql (U) Negative [facility] Protein Ql (U) Negative [facility] No Panel Informationon 01-08 Urine Occult Blood Negative [facility] Complete Blood Count with Au to Diffon 09-18-2021 Basophils (Bld) [#/Vol] 0.09 10*3/uL Normal 0.00-0.20 [facility] Comment on above: Performed By: #### C BCAD, CMP, LIPD, FE Prof #### [facility] [address] [id number] Basophils/100 WBC (Bld) 1.2 % Normal [facility] Comment on above: Performed By: #### C BCAD, CMP, LIPD, FE Prof #### [facility] [address] [id number] Eosinophils (Bld) [#/Vol] 0.18 10*3/uL Normal 0.02-0.50 [facility] Comment on above: Performed By: #### C BCAD, CMP, LIPD, FE Prof #### [facility] [address] [id number] Eosinophils/100 WBC (Bld) 2.5 % Normal [facility] Comment on above: Performed By: #### C BCAD, CMP, LIPD, FE Prof #### [facility] [address] [place], [place] [id number] Erythrocyte distribution width (RBC) [Ratio] 12.4 % Normal 11.0-15.0 [facility] Comment on above: Performed By: #### C BCAD, CMP, LIPD, FE Prof #### [facility] [address] [place], [place] [id number] Hematocrit (Bld) [Volume fraction] 41.2 % Normal 35.0-47.0 [facility] Comment on above: Performed By: #### C BCAD, CMP, LIPD, FE Prof #### [facility] [address] [place], [place] [id number] Hemoglobin (Bld) [Mass/Vol] 14.2 g/dL Normal 11.6-15.5 [facility] Comment on above: Performed By: #### C BCAD, CMP, LIPD, FE Prof #### [facility] [address] [place], [place] [id number] Lymphocytes (Bld) [#/Vol] 2.3 10*3/uL Normal 0.9-3.9 [facility] Comment on above: Performed By: #### C BCAD, CMP, LIPD, FE Prof #### [facility] [address] [place], [place] [id number] Lymphocytes/100 WBC (Bld) 31.5 % Normal [facility] Comment on above: Performed By: #### C BCAD, CMP, LIPD, FE Prof #### [facility] [address] [place], [place] [id number] MCH (RBC) [Entitic mass] 33.4 pg High 27.0-33.0 [facility] Comment on above: Performed By: #### C BCAD, CMP, LIPD, FE Prof #### [facility] [address] [place], [place] [id number] MCHC (RBC) [Mass/Vol] 34.5 g/dL Normal 32.0-36.0 [facility] Comment on above: Performed By: #### C BCAD, CMP, LIPD, FE Prof #### [facility] [address] [facility] [place] [id number] MCV (RBC) [Entitic vol] 97 fL Normal 80-100 [facility] Comment on above: Performed By: #### C BCAD, CMP, LIPD, FE Prof #### [facility] [address] [facility] [place] [id number] Monocytes (Bld) [#/Vol] 0.5 10*3/uL Normal 0.2-0.9 [facility] Comment on above: Performed By: #### C BCAD, CMP, LIPD, FE Prof #### [facility] [address] [facility] [id number] Monocytes/100 WBC (Bld) 6.2 % Normal [facility] Comment on above: Performed By: #### C BCAD, CMP, LIPD, FE Prof #### [facility] [address] [facility] [id number] Neutrophils (Bld) [#/Vol] 4.2 10*3/uL Normal 1.5-7.8 [facility] Comment on above: Performed By: #### C BCAD, CMP, LIPD, FE Prof #### [facility] [address] [facility] [id number] Neutrophils/100 WBC (Bld) 58.5 % Normal [facility] Comment on above: Performed By: #### C BCAD, CMP, LIPD, FE Prof #### [facility] [address] [place], [place] [id number] Platelet mean volume (Bld) [Entitic vol] 8.10 fL Normal 7.50-12.50 [facility] Comment on above: Performed By: #### C BCAD, CMP, LIPD, FE Prof #### [facility] [address] [facility] [id number] Platelets (Bld) [#/Vol] 389 10*3/uL Normal 140-400 [facility] Comment on above: Performed By: #### C BCAD, CMP, LIPD, FE Prof #### [facility] [address] [id number] RBC (Bld) [#/Vol] 4.25 10*6/uL Normal 3.90-5.20 [facility] Comment on above: Performed By: #### C BCAD, CMP, LIPD, FE Prof #### [facility] [address] [place], [place] [id number] RDW-SD 44.2 fL Normal 37.0-50.0 [facility] Comment on above: Performed By: #### C BCAD, CMP, LIPD, FE Prof #### [facility] [address] [place], [place] [id number] WBC (Bld) [#/Vol] 7.2 10*3/uL Normal 3.8-11.0 [facility] Comment on above: Performed By: #### C BCAD, CMP, LIPD, FE Prof #### [facility] [address] [place], [place] [id number] Comprehensive Metabolic Pane nichole 09-18-2021 Albumin [Mass/Vol] 4.5 g/dL Normal 3.6-5.1 [facility] Comment on above: Performed By: #### C BCAD, CMP, LIPD, FE Prof #### [facility] [address] [place], [place] [id number] Albumin/Globulin [Mass ratio] 2.1 {ratio} Normal 1.0-2.5 [facility] Comment on above: Performed By: #### C BCAD, CMP, LIPD, FE Prof #### [facility] [address] [place], [place] [id number] ALP [Catalytic activity/Vol] 64 U/L Normal 35-119 [facility] Comment on above: Performed By: #### C BCAD, CMP, LIPD, FE Prof #### [facility] [address] [place], [place] [id number] ALT [Catalytic activity/Vol] 52 U/L High 6-33 [facility] Comment on above: Result Comment: 08/02 Female reference range changed. Performed By: #### C BCAD, CMP, LIPD, FE Prof #### [facility] [address] [place], [place] [id number] Anion gap [Moles/Vol] 15 mmol/L Normal 12-20 [place] [facility] Comment on above: Result Comment: Effcecy ctive 09/07/2019 reference range changed. Performed By: #### C BCAD, CMP, LIPD, FE Prof #### [facility] [address] [place], [place] [id number] AST [Catalytic activity/Vol] 29 U/L Normal 9-34 [facility] Comment on above: Performed By: #### C BCAD, CMP, LIPD, FE Prof #### [facility] [address] [place], [place] [id number] Bilirubin [Mass/Vol] 0.57 mg/dL Normal 0.30-1.20 [facility] Comment on above: Performed By: #### C BCAD, CMP, LIPD, FE Prof #### [facility] [address] [place], [place] [id number] BUN/CREA 18 Ratio Normal 6-22 [facility] Comment on above: Performed By: #### C BCAD, CMP, LIPD, FE Prof #### [facility] [address] [place], [place] [id number] Calcium [Mass/Vol] 9.5 mg/dL Normal 8.6-10.2 [facility] Comment on above: Performed By: #### C BCAD, CMP, LIPD, FE Prof #### [facility] [address] [place], [place] [id number] Chloride [Moles/Vol] 103 mmol/L Normal 98-107 [facility] Comment on above: Performed By: #### C BCAD, CMP, LIPD, FE Prof #### [facility] [address] [place], [place] [id number] CO2 [Moles/Vol] 27 mmol/L Normal 20-31 [facility] Comment on above: Performed By: #### C BCAD, CMP, LIPD, FE Prof #### [facility] [address] [place], [place] [id number] Creatinine [Mass/Vol] 0.7 mg/dL Normal 0.6-1.4 [facility] Comment on above: Performed By: #### C BCAD, CMP, LIPD, FE Prof #### [facility] [address] [place], [place] [id number] eGFRAA 112 mL/min/1.73m2 Normal >60 [facility] Comment on above: Performed By: #### C BCAD, CMP, LIPD, FE Prof #### [facility] [address] [place], [place] [id number] eGFRNAA 92 mL/min/1.73m2 Normal >60 [facility] Comment on above: Performed By: #### C BCAD, CMP, LIPD, FE Prof #### [facility] [address] [place], [place] [id number] Globulin (S) [Mass/Vol] 2.1 g/dL Normal 1.9-3.7 [facility] Comment on above: Performed By: #### C BCAD, CMP, LIPD, FE Prof #### [facility] [address] [place], [place] [id number] Glucose [Mass/Vol] 123 mg/dL High 65-99 [facility] Comment on above: Result Comment: For FASTING Glucose --- ADA reference ranges: Normal 65-99 mg/dl Prediabetes 100-125 Diabetes >/= 126 Performed By: #### C BCAD, CMP, LIPD, FE Prof #### [facility] [address] [place], [place] [id number] Potassium [Moles/Vol] 3.7 mmol/L Normal 3.5-5.5 [facility] Comment on above: Performed By: #### C BCAD, CMP, LIPD, FE Prof #### [facility] [address] [place], [place] [id number] Protein [Mass/Vol] 6.6 g/dL Normal 6.1-8.1 [facility] Comment on above: Performed By: #### C BCAD, CMP, LIPD, FE Prof #### [facility] [address] [place], [place] [id number] Sodium [Moles/Vol] 141 mmol/L Normal 135-146 [facility] [place] [facility] Comment on above: Performed By: #### C BCAD, CMP, LIPD, FE Prof #### [facility] [address] [place], [place] [id number] Urea nitrogen [Mass/Vol] 12 mg/dL Normal 7-25 [facility] Comment on above: Performed By: #### C BCAD, CMP, LIPD, FE Prof #### [facility] [address] [place], [place] [id number] Iron Profileon 09-18-2021 %FESAT 38 % Normal 11-50 [facility] Comment on above: Performed By: #### C BCAD, CMP, LIPD, FE Prof #### [facility] [address] [place], [place] [id number] FE 113 ug/dL Normal 40-190 [facility] Comment on above: Result Comment: Refe rence range change 07/19/2017. Prior reference range F 37-145 ug/dL, M 59-158 ug/dL. Performed By: #### C BCAD, CMP, LIPD, FE Prof #### [facility] [address] [place], [place] [id number] TIBC 297 ug/dL Normal 250-450 [facility] Comment on above: Performed By: #### C BCAD, CMP, LIPD, FE Prof #### [facility] [address] [place], [place] [id number] UIBC 184 ug/dL Normal 112-347 [facility] Comment on above: Performed By: #### C BCAD, CMP, LIPD, FE Prof #### [facility] [address] [place], [place] [id number] Lipid Panelon 09-18-2021 Cholesterol [Mass/Vol] 238 mg/dL High 125-200 [facility] Comment on above: Result Comment: Low risk < 200mg/dL Borderline risk 201-239 mg/dl High risk > or equal to 240 Performed By: #### C BCAD, CMP, LIPD, FE Prof #### [facility] [address] [place], [place] [id number] Cholesterol in HDL [Mass/Vol] 42 mg/dL Normal >40 [facility] Comment on above: Result Comment: High Cardiovascular Risk HDL <40 mg/dL Low Cardiovascular Risk HDL > or equal to 60 mg/dl Performed By: #### C BCAD, CMP, LIPD, FE Prof #### [facility] [address] [place], [place] [id number] Cholesterol in LDL [Mass/Vol] 131 mg/dL Normal [facility] Comment on above: Result Comment: LDL ATP III CLASSIFICATION LDL less than 100 mg/dl Optimal LDL 100-129 mg/dl Near or above optimal LDL 130-159 Borderline high LDL 160-189 High LDL greater than 189 mg/dl Very High Performed By: #### C BCAD, CMP, LIPD, FE Prof #### [facility] [address] [place], [place] [id number] Cholesterol in VLDL [Mass/Vol] 65 mg/dL Normal [facility] Comment on above: Performed By: #### C BCAD, CMP, LIPD, FE Prof #### [facility] [address] [place], [place] [id number] Cholesterol.total/Ch olesterol in HDL [Mass ratio] 6 {ratio} Normal [facility] Comment on above: Performed By: #### C BCAD, CMP, LIPD, FE Prof #### [facility] [address] [facility] [place] [id number] Triglyceride [Mass/Vol] 326 mg/dL High 30-150 [facility] Comment on above: Result Comment: TRIG ATPIII CLASSIFICATIONS TRIG less than 150 mg/dl Normal TRIG 150-199 mg/dl Borderline High TRIG 200-500 mg/dl High TRIG greather than 500 mg/dl Very High Performed By: #### C BCAD, CMP, LIPD, FE Prof #### [facility] [address] [place], [place] [id number] KNEE RIGHT 3 [facility] 0 KNEE RIGHT 3 [facility] Department of Radiology [address] [place] [id number] Patient Name: LINDA ALVARADO : 1975 Sex: F Age: Race: White Pt. Location: Patient Status: O Ordered Date: 03/31/2020 1:55:00 PM Completed Date: 03/31/2020 01:59 PM Requesting Provider: JONAS BISHOP Attending Provider: JONAS BISHOP Report Copy To: Signs & Symptoms: S82.101D Unsp fx upper end of r tibia, subs for clos fx w routn heal I10 History: [place] Comments: Weight Bearing?: Y Exam: KNEE RIGHT 3 [facility] KNEE RIGHT 3 [facility] 03/31/2020 1:59 PM CLINICAL INDICATIONS: S82.101D Unsp [...] fracture Electronically signed: Jonas Robbins. Transcribed by: [email or web address], User Resident: Electronically Signed by: JONAS ROBBINS @ 03/31/2020 02:03 PM Normal [facility] Comment on above: Order Comment: Weigh t Bearing?: Y KNEE RIGHT 3 [facility] 0 KNEE RIGHT 3 [facility] Department of Radiology [address] [place] [phone] Patient Name: LINDA ALVARADO : 1975 Sex: F Age: Race: White Pt. Location: 84 Patient Status: O Ordered Date: 10/12/2019 11:20:00 AM Completed Date: 10/12/2019 11:29 AM Requesting Provider: JONAS BISHOP Attending Provider: JONAS BISHOP Report Copy To: ELVER MENDENHALL Signs & Symptoms: S82.101D Unsp fx upper end of r tibia, subs for clos fx w routn heal I10 History: [place] Comments: , , , Ordering Provider - [...] alignment Electronically signed: Ying Enriquez. Transcribed by: [email or web address], User Resident: Electronically Signed by: YING ENRIQUEZ @ 10/12/2019 12:10 PM Normal [facility] Comment on above: Order Comment: , , = ========= , Ordering Provider - JONAS BISHOP PA-C , KNEE RIGHT 1 OR 2 VWSon 09-02 KNEE RIGHT 1 OR 2 S [facility] Department of Radiology [address] [place] [id number] Patient Name: LINDA ALVARADO : 1975 Sex: F Age: Race: White Pt. Location: Patient Status: Ordered Date: 09/14/2019 10:40:00 AM Completed Date: 09/14/2019 11:01 AM Requesting Provider: JONAS BISHOP Attending Provider: Report Copy To: Signs & Symptoms: S82.101D Unsp fx upper end of r tibia, subs for clos fx w routn heal I10 History: [place] Comments: , , , Ordering Provider - [...] healing Electronically signed: Stephanie Navarro. Transcribed by: [email or web address], User Resident: Electronically Signed by: STEPHANIE NAVARRO @ 09/14/2019 05:22 PM Normal [facility] Comment on above: Order Comment: , , = ========= , Ordering Provider - JONAS BISHOP PA-C , KNEE RIGHT 1 OR 2 [facility] 08-02 KNEE RIGHT 1 OR 2 [facility] Department of Radiology [address] [place] [id number] Patient Name: LINDA ALVARADO : 1975 Sex: F Age: Race: White Pt. Location: Patient Status: O Ordered Date: 08/17/2019 1:25:00 PM Completed Date: 08/17/2019 01:26 PM Requesting Provider: JONAS BISHOP Attending Provider: JONAS BISHOP Report Copy To: ELVER MENDENHALL Signs & Symptoms: S82.101A Unsp fracture of upper end of right tibia, init for clos fx I10 History: [place] Comments: , Views (X-RAY, KNEE): AP, Lateral [...] effusion Electronically signed by:Stephanie Navarro. Transcribed by: [email or web address], User Resident: Electronically Signed by: STEPHANIE NAVARRO @ 08/17/2019 03:52 PM Normal [facility] Comment on above: Order Comment: , Katherine ws (X-RAY, KNEE): AP, Lateral , Views (X- RAY, KNEE): AP, Lateral , , , Ordering Provider - JONAS BISHOP PA-C , VITAMIN D 25-HYDROXYon 08-17 VITAMIN D 25-OH 35.4 ng/mL Normal 30.0-80.0 [facility] Comment on above: Result Comment: >80. 0 Toxicity possible Performed By: #### 5 [id number], [id number] #### [address] [place] [address], [facility] KNEE RIGHT 1 OR 2 VWSon 07-03 KNEE RIGHT 1 OR 2 VWS [facility] Department of Radiology [address] [place] [address] [place] [address] Patient Name: LINDA ALVARADO : 1975 Sex: F Age: Race: White Pt. Location: Patient Status: Ordered Date: 07/20/2019 10:30:00 AM Completed Date: 07/20/2019 10:42 AM Requesting Provider: SHWETA VIDAL Attending Provider: Report Copy To: Signs & Symptoms: S82.101A Unsp fracture of upper end of right tibia, init for clos fx I10 History: [place] Comments: , , , Ordering Provider - [...] healing Electronically signed by:Stephanie Navarro. Transcribed by: [email or web address], User Resident: Electronically Signed by: STEPHANIE NAVARRO @ 07/20/2019 05:04 PM Normal [facility] Comment on above: Order Comment: , , = ========= , Ordering Provider - SHWETA VIDAL PA-C , BASIC METABOLIC PANELon 11-0 Calcium [Mass/Vol] 8.8 mg/dL Normal 8.6-10.3 [facility] Comment on above: Order Comment: No: D o not add to previous draw Performed By: #### 5 [id number], [id number] #### [facility] [address] [place] [address], [place] Chloride [Moles/Vol] 99 mmol/L Normal 98-107 [facility] Comment on above: Order Comment: No: D o not add to previous draw Performed By: #### 5 610, [id number] #### [facility] [address] [place] [address], [place] CO2 [Moles/Vol] 27 mmol/L Normal 21-31 [facility] Comment on above: Order Comment: No: D o not add to previous draw Performed By: #### 5 610, 90770 #### [facility] [address] [place] [address], [place] Creatinine [Mass/Vol] 0.81 mg/dL Normal 0.60-1.20 [facility] Comment on above: Order Comment: No: D o not add to previous draw Performed By: #### 5 610, 98576 #### [facility] [address] [place] [address], [place] GFR/1.73 sq M predicted among blacks MDRD (S/P/Bld) [Vol rate/Area] mL/min/{1.73_m2} Normal >60 [facility] Comment on above: Order Comment: No: D o not add to previous draw Performed By: #### 5 610, 73057 #### [facility] [address] [place] [address], [place] GFR/1.73 sq M predicted among non-blacks MDRD (S/P/Bld) [Vol rate/Area] mL/min/{1.73_m2} Normal >60 [facility] Comment on above: Order Comment: No: D o not add to previous draw Performed By: #### 5 610, 29675 #### [facility] [address] [place] [address], [place] Glucose [Mass/Vol] 105 mg/dL High 70-100 [facility] Comment on above: Order Comment: No: D o not add to previous draw Performed By: #### 5 610, 737[address] #### [facility] [address] [place] [address], [place] Potassium [Moles/Vol] 3.8 mmol/L Normal 3.5-5.1 [facility] Comment on above: Order Comment: No: D o not add to previous draw Performed By: #### 5 610, 36678 #### [facility] [address] [place] [address], [place] Sodium [Moles/Vol] 133 mmol/L Low 136-145 [facility] Comment on above: Order Comment: No: D o not add to previous draw Performed By: #### 5 610, 56992 #### [facility] [address] [place] [address], [place] Urea nitrogen [Mass/Vol] 10 mg/dL Normal 7-25 [facility] Comment on above: Order Comment: No: D o not add to previous draw Performed By: #### 5 6100, 77814 #### [facility] [address] [place] [address], [facility] CBC COMPLETE BLOOD COUNTon 09-07-2018 Erythrocyte distribution width (RBC) [Ratio] 13.3 % Normal 11.5-15.0 [facility] Comment on above: Order Comment: No: D o not add to previous draw Performed By: #### 5 6100, 86459 #### [facility] [address] [place] [address], [facility] Hematocrit (Bld) [Volume fraction] 36.1 % Normal 36.0-45.0 [facility] Comment on above: Order Comment: No: D o not add to previous draw Performed By: #### 5 6100, 22617 #### [facility] [address] [place] [address], [facility] Hemoglobin (Bld) [Mass/Vol] 11.6 g/dL Low 12.0-15.0 [facility] Comment on above: Order Comment: No: D o not add to previous draw Performed By: #### 5 6100, 75850 #### [facility] [address] [place] [address], [facility] MCH (RBC) [Entitic mass] 31.2 pg Normal 27.0-33.0 [facility] Comment on above: Order Comment: No: D o not add to previous draw Performed By: #### 5 6100, 35156 #### [facility] [address] [place] [address], [facility] MCHC (RBC) [Mass/Vol] 32.1 g/dL Normal 32.0-35.0 [facility] Comment on above: Order Comment: No: D o not add to previous draw Performed By: #### 5 6100, 61494 #### [facility] [address] [place] [address], [place] MCV (RBC) [Entitic vol] 97.0 fL Normal 82.0-98.0 [facility] Comment on above: Order Comment: No: D o not add to previous draw Performed By: #### 5 6101, 76203 #### [facility] [address] [place] [address], [facility] Nucleated RBC/100 WBC (Bld) [Ratio] 0 % Normal 0-0 [facility] Comment on above: Order Comment: No: D o not add to previous draw Performed By: #### 5 610, 51234 #### [facility] [address] [place] [address], [place] PLAT CNT 447 10*3/uL High 150-400 [facility] Comment on above: Order Comment: No: D o not add to previous draw Performed By: #### 5 6101, 59628 #### [facility] [address] [place] [address], [facility] RBC (Bld) [#/Vol] 3.72 10*6/uL Low 3.80-5.00 [facility] Comment on above: Order Comment: No: D o not add to previous draw Performed By: #### 5 6101, 27620 #### [facility] [address] [place] [address], [place] WBC (Bld) [#/Vol] 16.46 10*3/uL High 4.00-10.60 [facility] Comment on above: Order Comment: No: D o not add to previous draw Performed By: #### 5 6101, 21706 #### [facility] [address] [place] [address], [facility] *MRSA/MSSA DNA NASALon 07-07 *MRSA/MSSA DNA NASAL Clinical Report: (D ) Specimen: NASAL SWAB Collected: 07/07/2019 08:00 Status: Final Last Updated: 07/07/2019 14:28 MSSA DNA (Final) Methicillin Susceptible Staphylococcus aureus DNA Detected MRSA DNA (Final) Negative Normal [facility] Comment on above: Performed By: #### 5 6101, 66181 #### [facility] [address] APTTon 07-07-2019 aPTT Coag (Bld) [Time] 38.8 s High 25.0-35.0 [facility] Comment on above: Result Comment: ALL RESULTS [...] THIS PURPOSE. Performed By: #### 5 6101, 49337 #### [facility] [address] CBC W/DIFFon 07-07-2019 ABS BASOPHILS 0.1 10*3/uL Normal 0.0-0.2 [facility] Comment on above: Performed By: #### 5 0103 #### [facility] [address] ABS IMM GRANS 0.0 10*3/uL Normal 0.0-0.2 [facility] Comment on above: Performed By: #### 5 0103 #### [facility] [address] ABS NEUTROPHILS 4.9 10*3/uL Normal 1.6-7.6 [facility] Comment on above: Performed By: #### 5 0103 #### [facility] [address] Basophils/100 WBC (Bld) 1.0 % Normal 0.0-1.0 [facility] Comment on above: Performed By: #### 5 0103 #### [facility] [address] [place] [address], [facility] Eosinophils (Bld) [#/Vol] 0.2 10*3/uL Normal 0.0-0.5 [facility] Comment on above: Performed By: #### 5 0103 #### [facility] [address] [place] [address], [facility] Eosinophils/100 WBC (Bld) 3.0 % Normal 0.0-6.0 [facility] Comment on above: Performed By: #### 5 0103 #### [facility] [address] [place] [address], [facility] Erythrocyte distribution width (RBC) [Ratio] 13.3 % Normal 11.5-15.0 [facility] Comment on above: Performed By: #### 5 0103 #### [facility] [address] [facility] [place] [address], [facility] Hematocrit (Bld) [Volume fraction] 36.9 % Normal 36.0-45.0 [facility] Comment on above: Performed By: #### 5 0103 #### [facility] [address] [facility] [place] [place] [address], [facility] Hemoglobin (Bld) [Mass/Vol] 12.2 g/dL Normal 12.0-15.0 [facility] Comment on above: Performed By: #### 5 0103 #### [facility] [address] [place] [address], [facility] IMMATURE GRANS 0.5 % Normal 0.0-1.0 [facility] Comment on above: Performed By: #### 5 0103 #### [facility] [address] [place] [address], [facility] Lymphocytes (Bld) [#/Vol] 2.0 10*3/uL Normal 1.2-4.0 [facility] Comment on above: Performed By: #### 5 0103 #### [facility] [address] [place] [id number], [facility] Lymphocytes/100 WBC (Bld) 25.3 % Normal 20.0-45.0 [facility] Comment on above: Performed By: #### 5 0103 #### [facility] [address] [place] [address], [facility] MCH (RBC) [Entitic mass] 31.4 pg Normal 27.0-33.0 [facility] Comment on above: Performed By: #### 5 0103 #### [facility] [address] [place] [address], [facility] MCHC (RBC) [Mass/Vol] 33.1 g/dL Normal 32.0-35.0 [facility] Comment on above: Performed By: #### 5 3 #### [facility] [address] [facility] [place] [address], [facility] MCV (RBC) [Entitic vol] 95.1 fL Normal 82.0-98.0 [facility] Comment on above: Performed By: #### 5 3 #### [facility] [address] [facility] [place] [place] [address], [facility] Monocytes (Bld) [#/Vol] 0.6 10*3/uL Normal 0.1-1.0 [facility] Comment on above: Performed By: #### 5 3 #### [facility] [address] [facility] [place] [place] [address], [facility] MONOS 7.3 % Normal 5.0-12.0 [facility] Comment on above: Performed By: #### 5 3 #### [facility] [address] [facility] [address] Neutrophils/100 WBC (Bld) 62.9 % Normal 40.0-72.0 [facility] Comment on above: Performed By: #### 5 3 #### [facility] [address] [place] [address], [facility] Nucleated RBC/100 WBC (Bld) [Ratio] 0 % Normal 0-0 [facility] Comment on above: Performed By: #### 5 102 #### [facility] [address] [place] [id number], [facility] PLAT CNT 392 10*3/uL Normal 150-400 [facility] Comment on above: Performed By: #### 5 102 #### [facility] [address] [place] [address], [facility] RBC (Bld) [#/Vol] 3.88 10*6/uL Normal 3.80-5.00 [facility] Comment on above: Performed By: #### 102 #### [facility] [address] [place] [address], [facility] WBC (Bld) [#/Vol] 7.72 10*3/uL Normal 4.00-10.60 [facility] Comment on above: Performed By: #### 102 #### [facility] [address] [place] [address], [facility] COMP METABOLIC PANELon 07-07 Albumin [Mass/Vol] 3.9 g/dL Normal 3.5-5.7 [facility] Comment on above: Performed By: #### 0 0121 #### [facility] [address] [place] [address], [facility] ALKALINE PHOSPH 58 IU/L Normal 34-104 [facility] Comment on above: Performed By: #### 0 0121 #### [facility] [address] [place] [address], [facility] ALT [Catalytic activity/Vol] 55 U/L High 7-52 [facility] Comment on above: Performed By: #### 0 0121 #### [facility] [address] [place] [address], [facility] AST [Catalytic activity/Vol] 39 U/L Normal 13-39 [facility] Comment on above: Performed By: #### 0 0121 #### [facility] [address] [place] [address], [place] Bilirubin [Mass/Vol] 0.4 mg/dL Normal 0.3-1.0 [facility] Comment on above: Performed By: #### 0 0121 #### [facility] [address] [place] [address], [place] Calcium [Mass/Vol] 9.0 mg/dL Normal 8.6-10.3 [facility] Comment on above: Performed By: #### 0 0121 #### [facility] [address] [place] [address], [place] Chloride [Moles/Vol] 104 mmol/L Normal 98-107 [facility] Comment on above: Performed By: #### 0 0121 #### [facility] [address] [place] [address], [place] CO2 [Moles/Vol] 25 mmol/L Normal 21-31 [facility] Comment on above: Performed By: #### 0 0121 #### [facility] [address] [place] [address], [place] Creatinine [Mass/Vol] 0.81 mg/dL Normal 0.60-1.20 [facility] Comment on above: Performed By: #### 0 0121 #### [facility] [address] [place] [address], [place] GFR/1.73 sq M predicted among blacks MDRD (S/P/Bld) [Vol rate/Area] mL/min/{1.73_m2} Normal >60 [facility] Comment on above: Performed By: #### 0 0121 #### [facility] [address] [place] [address], [place] GFR/1.73 sq M predicted among non-blacks MDRD (S/P/Bld) [Vol rate/Area] mL/min/{1.73_m2} Normal >60 [facility] Comment on above: Performed By: #### 0 0121 #### [facility] [address] [facility] [place] [address], [facility] Glucose [Mass/Vol] 112 mg/dL High 70-100 [facility] Comment on above: Performed By: #### 0 0121 #### [facility] [address] [facility] [place] [address], [facility] Potassium [Moles/Vol] 3.5 mmol/L Normal 3.5-5.1 [facility] Comment on above: Performed By: #### 0 0121 #### [facility] [address] [place] [address], [facility] Protein [Mass/Vol] 6.9 g/dL Normal 6.0-8.3 [facility] Comment on above: Performed By: #### 0 0121 #### [facility] [address] [place] [address], [facility] Sodium [Moles/Vol] 134 mmol/L Low 136-145 [facility] Comment on above: Performed By: #### 0 0121 #### [facility] [address] [place] [address], [facility] Urea nitrogen [Mass/Vol] 10 mg/dL Normal 7-25 [facility] Comment on above: Performed By: #### 0 0121 #### [facility] [address] [place] [address], [facility] CT 3D LOWER EXTREMITY WO CON TRAST RIGHTon 07-07-2019 CT 3D LOWER EXTREMITY WO CONTRAST RIGHT [facility] Department of Radiology [address] [place] [id number] Patient Name: LINDA ALVARADO : 1975 Sex: F Age: Race: White Pt. Location: [facility] Patient Status: I Ordered Date: 07/07/2019 [...] findings. Electronically signed by:Ying Enriquez. Transcribed by: [email or web address], User Resident: JANET HARRINGTON Electronically Signed by: YING ENRIQUEZ @ 07/07/2019 07:01 AM I personally read this/these film(s) with this resident Normal [facility] Comment on above: Order Comment: R/O F ractures, right leg from mid femur down to ankle KNEE RIGHT 1 OR 2 [facility] KNEE RIGHT 1 OR 2 S [facility] Department of Radiology [address] [place] [id number] Patient Name: LINDA ALVARADO : 1975 Sex: F Age: Race: White Pt. Location: [id number] Patient Status: I Ordered Date: 07/07/2019 7:20:00 AM Completed Date: 07/07/2019 01:35 PM Requesting Provider: IAN KU Attending Provider: IAN KU Report Copy To: Signs & Symptoms: orif tibial plateau right, possible ex-fix History: orif tibial plateau right, possible ex-fix Comments: orif tibial plateau right, possible ex-fix Exam: KNEE RIGHT 1 OR 2 [facility] KNEE RIGHT 1 OR 2 [facility] 07/07/2019 1:35 PM EST SIGNS AND SYMPTOMS: orif tibial plateau right, possible ex-fix TECHNOLOGIST COMMENTS: Intra op right knee, ORIF tibial plateau, with Dr. uK, 48 sec of fluoro used QUESTION FOR THE RADIOLOGIST: orif tibial plateau right, possible ex-fix PROTOCOL: AP(PA) and Lateral views were obtained. COMPARISON: None FINDINGS: Soft tissues: Bones: Joints: IMPRESSION: Documentation Electronically signed by:Ying Enriquez. Transcribed by: [email or web address], User Resident: Electronically Signed by: YING ENRIQUEZ @ 07/07/2019 01:40 PM Normal [facility] Comment on above: Order Comment: orif tibial plateau right, possible ex-fix Operative Reporton 9 Operative Report MR#: [id number] I [facility] Pt. Name: Linda Alvarado Room #: [id number] Discharge Date: Birthdate: 1975 OPERATIVE REPORT DATE OF SURGERY: 07/07/2019 SURGEON: Ian Ku M.D. ASSISTANTS: 1. Maye Cruz M.D. 2. Beckie Mcrae M.D. 3. Timoteo Manzano M.D. PREOPERATIVE [...] Cruz MD Date Trans: 07/07/2019 01:02 P/kelin [id number] cc: Elver Mendenhall M.D. [address] [facility] [address] Leslye Doss M.D. Timmy Mendoza...do Not Send [address] [facility] [address] Normal [facility] POC GLUCOSE LABon 07-07-2019 Glucose [Mass/Vol] 92 mg/dL Normal 70-100 [facility] Comment on above: Performed By: #### 8 5499 #### [facility] [address] [place] [address], [facility] POC URINE PREGNANCYon 2018 Beta HCG ( test) Ql (U) Negative Normal NEGATIVE [facility] Comment on above: Result Comment: Perf ormed in Emergency Department. Performed By: #### 8 4140 #### [facility] [address] [place] [address], [facility] PROTHROMBIN TIMEon 9 INR Coag (PPP) [Relative time] 1.12 {INR} Normal 0.91-1.16 [facility] Comment on above: Result Comment: ACCC P [...] CHEST 1995;108:231S-246S. Performed By: #### 5 6101, 01816 #### [facility] [address] [place] [address], [facility] PT Coag (PPP) [Time] 14.5 s Normal 12.3-14.8 [facility] Comment on above: Result Comment: ALL RESULTS MUST BE INTERPRETED WITH RESPECT TO BLOOD DRAWING ARTIFACT OR DILUTION ERROR OF ANTICOAGULANT AT THE TIME OF SAMPLING. Performed By: #### 5 6101, 53378 #### [facility] [address] [facility] [place] [address], [facility] RBC'S 2 UNITSon 07-07-2019 CROSSMATCH INTERP 1 COMP Normal [facility] Comment on above: Performed By: #### 8 6002 #### [facility] [address] [place] [address], [place] CROSSMATCH INTERP 2 COMP Normal [facility] Comment on above: Performed By: #### 8 6002 #### [facility] [address] [place] [address], [facility] PRODUCT CODE 1 E0336 Normal [facility] Comment on above: Performed By: #### 8 6002 #### [facility] [address] [place] [address], [facility] PRODUCT CODE 2 E0678 Normal [facility] Comment on above: Performed By: #### 8 6002 #### [facility] [address] [place] [address], [facility] PRODUCT STATUS 1 RE Normal [facility] Comment on above: Result Comment: Resu lt changed by IF on 07/11/2019 09:02. The previous value was XM. Performed By: #### 8 6002 #### [facility] [address] [place] [address], [facility] PRODUCT STATUS 2 RE Normal [facility] Comment on above: Result Comment: Resu lt changed by IF on 07/11/2019 09:02. The previous value was XM. Performed By: #### 8 6002 #### [facility] [address] [place] [address], [place] UNIT ABO 1 O Normal [facility] Comment on above: Performed By: #### 8 6002 #### [facility] [address] [place] [address], [place] UNIT ABO 2 O Normal [facility] Comment on above: Performed By: #### 8 6002 #### [facility] [address] [place] [address], [facility] UNIT ID 1 [id number] Normal The [facility] Comment on above: Performed By: #### 8 6002 #### [facility] [address] [place] [address], [facility] UNIT ID 2 [id number] Normal [facility] Comment on above: Performed By: #### 8 6002 #### [facility] [address] [place] [address], [place] UNIT RH 1 Negative Normal [facility] Comment on above: Performed By: #### 8 6002 #### [facility] [address] [place] [address], [place] UNIT RH 2 Negative Normal [facility] Comment on above: Performed By: #### 8 6002 #### [facility] [address] [place] [address], [facility] TYPE AND SCREENon 07-07-2019 ABO INTERPRETATION O Normal [facility] Comment on above: Performed By: #### 6 2586 #### [facility] [address] [place] [address], [place] RH INTERPRETATION Negative Normal The [facility] Comment on above: Performed By: #### 6 2586 #### [facility] [address] [place] [address], [place] XR KNEE RT 4V OR >on 019 XR KNEE RT 4V OR > Patient: LINDA ALVARADO Linette Exam Date: 07/06/2019 : 1975 Gender:F Ordering : LISHA HUSAIN Admission #: [id number] Family : Order #: [id number] CLICK HERE TO VIEW EXAM RADIOLOGY REPORT [...] Proctor M.D. on 07/07/2019 at 07:26 Normal [facility] ECHOCARDIO M/2D COMPLETEon 1 ECHOCARDIO M/2D COMPLETE Patient: LINDA ALVARADO Exam Date: 06/08/2019 : 1975 Gender:F Ordering : DR GITA HUSAIN Admission #: [id number] Family : Order #: [id number] CLICK HERE TO VIEW EXAM ECHOCARDIOGRAM REPORT [...] Area(A4C): 17.60 cm2 Left Atrium Systolic Volume(A2C): 07299 mm3 Left Atrium Systolic Volume(A4C): 31478 mm3 Mitral Valve MV E to A [...] M.D. on 06/09/2019 at 13:09 Normal The [facility] CBC AUTO DIFFon 05-23-2019 Basophils (Bld) [#/Vol] 0.1 103/ul Normal 0.0-0.1 [facility] Comment on above: Performed By: #### L IPA, CMP #### [facility] [address] [place] [address] Jose Gita Basophils/100 WBC (Bld) 1.4 % Normal 0.2-2.0 [facility] Comment on above: Performed By: #### L IPA, CMP #### [facility] [address] [place] [address] Jose Gita Eosinophils (Bld) [#/Vol] 0.3 103/ul Normal 0.0-0.7 [facility] Comment on above: Performed By: #### L IPA, CMP #### [facility] [address] [place] [id number] Jose Gita Eosinophils/100 WBC (Bld) 2.9 % Normal 0.9-7.0 [facility] Comment on above: Performed By: #### L IPA, CMP #### [facility] [address] [place], [place] [id number] Jose Gita Erythrocyte distribution width (RBC) [Ratio] 13.5 % Normal 11.0-15.0 [facility] Comment on above: Performed By: #### L IPA, CMP #### [facility] [address] [place] [address] Jose Gita Hematocrit (Bld) [Volume fraction] 37.3 % Normal 36.0-48.0 [facility] Comment on above: Performed By: #### L IPA, CMP #### [facility] [address] [place] [address] Jose Gita Hemoglobin (Bld) [Mass/Vol] 12.5 g/dL Normal 12.0-16.0 [facility] Comment on above: Performed By: #### L IPA, CMP #### [facility] [address] [place] [address] Jose Gita IG # 0.05 10e3/ul Critically high 0.00-0.03 [facility] Comment on above: Performed By: #### L IPA, CMP #### [facility] [address] [place] [address] Jose Gita IG % 0.6 % Critically high 0.0-0.5 [facility] Comment on above: Performed By: #### L IPA, CMP #### [facility] [address] [place] [address] Jose Gita Lymphocytes (Bld) [#/Vol] 2.4 103/ul Normal 1.2-3.8 [facility] Comment on above: Performed By: #### L IPA, CMP #### [facility] [address] [place] [address] Jose Gita Lymphocytes/100 WBC (Bld) 27.2 % Normal 20.5-60.0 [facility] Comment on above: Performed By: #### L IPA, CMP #### [facility] [address] [place], [place] [address] Jose Gita MANUAL DIFF REQ NO Normal [facility] Comment on above: Performed By: #### L IPA, CMP #### [facility] [address] [place], [place] [address] Jose Gita MCH (RBC) [Entitic mass] 32.1 pg Normal 26.7-34.0 [facility] Comment on above: Performed By: #### L IPA, CMP #### [facility] [address] [place], [place] [address] Jose Gita MCHC (RBC) [Mass/Vol] 33.5 g/dL Normal 29.9-35.2 [facility] Comment on above: Performed By: #### L IPA, CMP #### [facility] [address] [place], [place] [id number] Jose Gita MCV (RBC) [Entitic vol] 95.6 fL Normal 81.0-99.0 [facility] Comment on above: Performed By: #### L IPA, CMP #### [facility] [address] [place], [place] [address] Jose Gita Monocytes (Bld) [#/Vol] 0.8 103/ul Normal 0.3-0.8 [facility] Comment on above: Performed By: #### L IPA, CMP #### [facility] [address] [place], [place] [address] Jose Gita Monocytes/100 WBC (Bld) 8.7 % Normal 1.7-12.0 [facility] Comment on above: Performed By: #### L IPA, CMP #### [facility] [address] [place], [place] [address] Jose Gita Neutrophils (Bld) [#/Vol] 5.2 103/ul Normal 1.4-6.5 [facility] Comment on above: Performed By: #### L IPA, CMP #### [facility] [address], [place] [address] Jose Gita Neutrophils/100 WBC (Bld) 59.2 % Normal 43.0-75.0 [facility] Comment on above: Performed By: #### L IPA, CMP #### [facility] [address] [id number] Jose Pelayo Platelet mean volume (Bld) [Entitic vol] 8.8 fL Critically low 9.5-13.5 [facility] Comment on above: Performed By: #### L IPA, CMP #### [facility] [address] [place], [place] [phone] Josetripp Pelayo Platelets (Bld) [#/Vol] 401 103/ul Normal 150-450 [facility] Comment on above: Performed By: #### L IPA, CMP #### [facility] [address] [place], [place] [phone] Jose Pelayo RBC (Bld) [#/Vol] 3.90 106/ul Critically low 4.20-5.40 [facility] Comment on above: Performed By: #### L IPA, CMP #### [facility] [address] [place], [place] [phone] Josetripp Pelayo WBC (Bld) [#/Vol] 8.7 103/ul Normal 4.0-11.0 [facility] Comment on above: Performed By: #### L IPA, CMP #### [facility] [address] [place], [place] [phone] Jose Pelayo D-DIMERon 05-23-2019 D-DIMER COMMENTS SEE BELOW Normal [facility] Comment on above: Result Comment: Incr [...] Performed By: #### L IPA, CMP #### [facility] [address] [place], [place] [phone] Josetripp Pelayo Fibrin D-dimer FEU IA (Bld) [Mass/Vol] 0.19 ug/mL Normal 0.19-0.50 [facility] Comment on above: Performed By: #### L IPA, CMP #### [facility] [address] [place], [place] [phone] Jose Gita PREG HCG QUALon 05-23-2019 , QUAL Negative Normal NEGATIVE [facility] Comment on above: Performed By: #### L IPA, CMP #### [facility] [address] [place], [place] [phone] Jose Gita PROF CHEM 8 (BAS METB)on Anion gap [Moles/Vol] 10.9 mmol/L Normal [facility] Comment on above: Performed By: #### L IPA, CMP #### [facility] [address] [place] [address] Jose Gita Calcium [Mass/Vol] 9.3 mg/dL Normal 8.4-10.2 [facility] Comment on above: Performed By: #### L IPA, CMP #### [facility] [address] [place] [address] Jose Gita Chloride [Moles/Vol] 104 mmol/L Normal 98-107 [facility] Comment on above: Performed By: #### L IPA, CMP #### [facility] [address] [place] [address] Jose Gita CO2 [Moles/Vol] 28.7 mmol/L Normal 22.0-30.0 [facility] Comment on above: Performed By: #### L IPA, CMP #### [facility] [address] [place] [address] Jose Gita Creatinine [Mass/Vol] 0.91 mg/dL Normal 0.52-1.04 [facility] Comment on above: Performed By: #### L IPA, CMP #### [facility] [address] [place] [address] Jose Gita EGFR-AF [place] CITIZ[place] >60 Normal >=60 [facility] Comment on above: Performed By: #### L IPA, CMP #### [facility] [address] [place] [address] Jose Gita EGFR-NON AF [place] CITIZ[place] >60 Normal >=60 [facility] Comment on above: Performed By: #### L IPA, CMP #### [facility] [address] [place] [id number] Jose Gita Glucose [Mass/Vol] 97 mg/dL Normal 74-106 [facility] Comment on above: Performed By: #### L IPA, CMP #### [facility] [address] [place] [id number] Jose Gita Potassium [Moles/Vol] 3.6 mmol/L Normal 3.4-5.0 [facility] Comment on above: Performed By: #### L IPA, CMP #### [facility] [address] [place] [address] Jose Gita Sodium [Moles/Vol] 140 mmol/L Normal 137-145 [facility] Comment on above: Performed By: #### L IPA, CMP #### [facility] [address] [place] [address] Jose Gita Urea nitrogen [Mass/Vol] 10.0 mg/dL Normal 7.0-17.0 [facility] Comment on above: Performed By: #### L IPA, CMP #### [facility] [address] [place], [place] [phone] Jose Gita Urea nitrogen/Creatinine [Mass ratio] 11.0 mg/mg Normal [facility] Comment on above: Performed By: #### L IPA, CMP #### [facility] [address] [place] [id number] Josetripp Cabanen PROTIMEon 05-23-2019 INR Coag (PPP) [Relative time] 1.03 {INR} Normal [facility] Comment on above: Performed By: #### L IPA, CMP #### [facility] [address] [place], [place] [phone] Jose Gita PT Coag (PPP) [Time] SEE BELOW Normal [facility] Comment on above: Result Comment: SELENE RED INR: 2.0 - 3.0 CONDITIONS NOT LISTED BELOW 2.5 - 3.5 FOR PROSTHETIC HEART VALVE REPLACEMENT 2.5 - 3.5 RECURRENT THROMBOSIS Performed By: #### L IPA, CMP #### [facility] [address] [place] [address] Jose Gita PT Coag (PPP) [Time] PLEASE NOTE: NORMAL RANGE CHANGE 05-20-2014 DUE TO REAGENT LOT CHANGE Normal [facility] Comment on above: Performed By: #### L IPA, CMP #### [facility] [address] [place] [address] Jose Gita PT Coag (PPP) [Time] 10.7 s Normal 9.0-11.6 [facility] Comment on above: Performed By: #### L IPA, CMP #### [facility] [address] [place] [address] Jose Gita PTTon 05-23-2019 aPTT Coag (Bld) [Time] 27.8 s Normal 22.3-36.2 [facility] Comment on above: Performed By: #### L IPA, CMP #### [facility] [address] [place] [address] Jose Gita aPTT Coag (Bld) [Time] PLEASE NOTE: NORMAL RANGE CHANGE 07-27-2015 DUE TO REAGENT LOT CHANGE Normal [facility] Comment on above: Performed By: #### L IPA, CMP #### [facility] [address] [place] [address] Jose Gita CBC AUTO DIFFon 12-28-2018 Basophils (Bld) [#/Vol] 0.1 103/ul Normal 0.0-0.1 [facility] Comment on above: Performed By: #### C BC #### [facility] [address] [place] [address] Jose Gita Basophils/100 WBC (Bld) 1.2 % Normal 0.2-2.0 [facility] Comment on above: Performed By: #### C BC #### [facility] [address] [place] [address] Jose Gita Eosinophils (Bld) [#/Vol] 0.2 103/ul Normal 0.0-0.7 [facility] Comment on above: Performed By: #### C BC #### [facility] [address] [place] [address] Jose Gita Eosinophils/100 WBC (Bld) 5.9 % Normal 0.9-7.0 [facility] Comment on above: Performed By: #### C BC #### [facility] [address] [place], [place] [phone] Jose Gita Erythrocyte distribution width (RBC) [Ratio] 13.7 % Normal 11.0-15.0 [facility] Comment on above: Performed By: #### C BC #### [facility] [address] [place] [address] Jose Gita Hematocrit (Bld) [Volume fraction] 36.3 % Normal 36.0-48.0 [facility] Comment on above: Performed By: #### C BC #### [facility] [address] [place] [address] Jose Gita Hemoglobin (Bld) [Mass/Vol] 12.1 g/dL Normal 12.0-16.0 [facility] Comment on above: Performed By: #### C BC #### [facility] [address] [place] [address] Jose Gita IG # 0.01 10e3/ul Normal 0.00-0.03 [facility] Comment on above: Performed By: #### C BC #### [facility] [address] [place] [address] Jose Gita IG % 0.2 % Normal 0.0-0.5 [facility] Comment on above: Performed By: #### C BC #### [facility] [address] [place] [address] Jose Gita Lymphocytes (Bld) [#/Vol] 1.2 103/ul Normal 1.2-3.8 [facility] Comment on above: Performed By: #### C BC #### [facility] [address] [place], [place] [phone] Jose Gita Lymphocytes/100 WBC (Bld) 30.3 % Normal 20.5-60.0 [facility] Comment on above: Performed By: #### C BC #### [facility] [address] [place] [address] Jose Gita MANUAL DIFF REQ NO Normal [facility] Comment on above: Performed By: #### C BC #### [facility] [address] [place], [place] [phone] Josetripp Pelayo MCH (RBC) [Entitic mass] 32.2 pg Normal 26.7-34.0 [facility] Comment on above: Performed By: #### C BC #### [facility] [address] [place], [place] [phone] Josetripp Pelayo MCHC (RBC) [Mass/Vol] 33.3 g/dL Normal 29.9-35.2 [facility] Comment on above: Performed By: #### C BC #### [facility] [address] [place], [place] [phone] Josetripp Pelayo MCV (RBC) [Entitic vol] 96.5 fL Normal 81.0-99.0 [facility] Comment on above: Performed By: #### C BC #### [facility] [address] [place] [address] Jose Gita Monocytes (Bld) [#/Vol] 0.4 103/ul Normal 0.3-0.8 [facility] Comment on above: Performed By: #### C BC #### [facility] [address] [place], [place] [phone] Jose Gita Monocytes/100 WBC (Bld) 9.4 % Normal 1.7-12.0 [facility] Comment on above: Performed By: #### C BC #### [facility] [address] [place] [address] Jose Gita Neutrophils (Bld) [#/Vol] 2.2 103/ul Normal 1.4-6.5 [facility] Comment on above: Performed By: #### C BC #### [facility] [address] [place], [place] [phone] Jose Gita Neutrophils/100 WBC (Bld) 53.0 % Normal 43.0-75.0 [facility] Comment on above: Performed By: #### C BC #### [facility] [address] [place], [place] [phone] Jose Gita Platelet mean volume (Bld) [Entitic vol] 8.6 fL Critically low 9.5-13.5 [facility] Comment on above: Performed By: #### C BC #### [facility] [address] [place], [place] [phone] Jose Gita Platelets (Bld) [#/Vol] 279 103/ul Normal 150-450 [facility] Comment on above: Performed By: #### C BC #### [facility] [address] [place], [place] [phone] Jose Gita RBC (Bld) [#/Vol] 3.76 106/ul Critically low 4.20-5.40 [facility] Comment on above: Performed By: #### C BC #### [facility] [address] [place], [place] [phone] Jose Gita WBC (Bld) [#/Vol] 4.1 103/ul Normal 4.0-11.0 [facility] Comment on above: Performed By: #### C BC #### [facility] [address] [place], [place] [phone] Jose Gita PROF CHEM 8 (BAS METB)on Anion gap [Moles/Vol] 10.6 mmol/L Normal [facility] Comment on above: Performed By: #### B MP #### [facility] [address] [place], [place] [phone] Jose Gita Calcium [Mass/Vol] 8.1 mg/dL Critically low 8.4-10.2 [facility] Comment on above: Performed By: #### B MP #### [facility] [address] [place], [place] [phone] Jose Gita Chloride [Moles/Vol] 111 mmol/L Critically high 98-107 [facility] Comment on above: Performed By: #### B MP #### [facility] [address] [place], [place] [address] Jose Gita CO2 [Moles/Vol] 24.7 mmol/L Normal 22.0-30.0 [facility] Comment on above: Performed By: #### B MP #### [facility] [address] [place] [phone] Jose Gita Creatinine [Mass/Vol] 0.80 mg/dL Normal 0.52-1.04 [facility] Comment on above: Performed By: #### B MP #### [facility] [address] [place] [phone] Jose Gita EGFR-AF [place] CITIZ[place] >60 Normal >=60 [facility] Comment on above: Performed By: #### B MP #### [facility] [address] [place] [phone] Jose Gita EGFR-NON AF [place] CITIZ[place] >60 Normal >=60 [facility] Comment on above: Performed By: #### B MP #### [facility] [address] [place], [place] [phone] Jose Gita Glucose [Mass/Vol] 93 mg/dL Normal 74-106 [facility] Comment on above: Performed By: #### B MP #### [facility] [address] [place] [address] Jose Gita Potassium [Moles/Vol] 4.3 mmol/L Normal 3.4-5.0 [facility] Comment on above: Performed By: #### B MP #### [facility] [address] [place], [place] [address] Jose Gita Sodium [Moles/Vol] 142 mmol/L Normal 137-145 [facility] Comment on above: Performed By: #### B MP #### [facility] [address] [place], [place] [address] Jose Gita Urea nitrogen [Mass/Vol] 6.0 mg/dL Critically low 7.0-17.0 [facility] Comment on above: Performed By: #### B MP #### [facility] [address] [place], [place] [phone] Jose Gita Urea nitrogen/Creatinine [Mass ratio] 7.5 mg/mg Normal [facility] Comment on above: Performed By: #### B MP #### [facility] [address] [place], [place] [address] Jose Gita CBC AUTO DIFFon 12-27-2018 Basophils (Bld) [#/Vol] 0.0 103/ul Normal 0.0-0.1 [facility] Comment on above: Performed By: #### C BC #### [facility] [address] [place], [place] [phone] Jose Gita Basophils/100 WBC (Bld) 0.4 % Normal 0.2-2.0 [facility] Comment on above: Performed By: #### C BC #### [facility] [address] [place] [address] Jose Gita Eosinophils (Bld) [#/Vol] 0.1 103/ul Normal 0.0-0.7 [facility] Comment on above: Performed By: #### C BC #### [facility] [address] [place] [address] Jose Gita Eosinophils/100 WBC (Bld) 1.3 % Normal 0.9-7.0 [facility] Comment on above: Performed By: #### C BC #### [facility] [address] [place] [address] Josetripp Pelayo Erythrocyte distribution width (RBC) [Ratio] 13.4 % Normal 11.0-15.0 [facility] Comment on above: Performed By: #### C BC #### [facility] [address] [place] [address] Jose Gita Hematocrit (Bld) [Volume fraction] 37.0 % Normal 36.0-48.0 [facility] Comment on above: Performed By: #### C BC #### [facility] [address] [place] [address] Jose Gita Hemoglobin (Bld) [Mass/Vol] 12.9 g/dL Normal 12.0-16.0 [facility] Comment on above: Result Comment: repe ated slide reviewed ts Performed By: #### C BC #### [facility] [address] [place], [place] [phone] Jose Gita IG # 0.02 10e3/ul Normal 0.00-0.03 [facility] Comment on above: Performed By: #### C BC #### [facility] [address] [place] [address] Jose Gita IG % 0.3 % Normal 0.0-0.5 [facility] Comment on above: Performed By: #### C BC #### [facility] [address] [place] [address] Jose Gita Lymphocytes (Bld) [#/Vol] 0.7 103/ul Critically low 1.2-3.8 [facility] Comment on above: Performed By: #### C BC #### [facility] [address] [place] [address] Jose Gita Lymphocytes/100 WBC (Bld) 9.2 % Critically low 20.5-60.0 [facility] Comment on above: Performed By: #### C BC #### [facility] [address] [place] [address] Josetripp Cabanen MANUAL DIFF REQ NO Normal [facility] Comment on above: Performed By: #### C BC #### [facility] [address] [place] [address] Jose Gita MCH (RBC) [Entitic mass] 32.4 pg Normal 26.7-34.0 [facility] Comment on above: Performed By: #### C BC #### [facility] [address] [place], [place] [phone] Jose Gita MCHC (RBC) [Mass/Vol] 34.9 g/dL Normal 29.9-35.2 [facility] Comment on above: Performed By: #### C BC #### [facility] [address] [place] [address] Jose Gita MCV (RBC) [Entitic vol] 93.0 fL Normal 81.0-99.0 [facility] Comment on above: Performed By: #### C BC #### [facility] [address] [place], [place] [phone] Jose Gita Monocytes (Bld) [#/Vol] 0.3 103/ul Normal 0.3-0.8 [facility] Comment on above: Performed By: #### C BC #### [facility] [address] [place], [place] [phone] Jose Gita Monocytes/100 WBC (Bld) 3.6 % Normal 1.7-12.0 [facility] Comment on above: Performed By: #### C BC #### [facility] [address] [place] [address] Jose Gita Neutrophils (Bld) [#/Vol] 6.4 103/ul Normal 1.4-6.5 [facility] Comment on above: Performed By: #### C BC #### [facility] [address] [place], [place] [phone] Jose Gita Neutrophils/100 WBC (Bld) 85.2 % Critically high 43.0-75.0 [facility] Comment on above: Performed By: #### C BC #### [facility] [address] [place], [place] [phone] Jose Gita Platelet mean volume (Bld) [Entitic vol] 8.7 fL Critically low 9.5-13.5 [facility] Comment on above: Performed By: #### C BC #### [facility] [address] [place], [place] [phone] Jose Gita Platelets (Bld) [#/Vol] 401 103/ul Normal 150-450 [facility] Comment on above: Performed By: #### C BC #### [facility] [address] [place], [place] [phone] Jose Gita RBC (Bld) [#/Vol] 3.98 106/ul Critically low 4.20-5.40 [facility] Comment on above: Performed By: #### C BC #### [facility] [address] [place], [place] [phone] Jose Gita WBC (Bld) [#/Vol] 7.5 103/ul Normal 4.0-11.0 [facility] Comment on above: Performed By: #### C BC #### [facility] [address] [place], [place] [phone] Josetripp Pelayo POTASSIUMon 12-27-2018 Potassium [Moles/Vol] 3.9 mmol/L Normal 3.4-5.0 [facility] Comment on above: Performed By: #### K #### [facility] [address] [phone] Josetripp Cabanen PROF 14(COMP METB)on 019 Albumin [Mass/Vol] 3.2 g/dL Critically low 3.5-5.0 Th [facility] Comment on above: Performed By: #### C MP #### [facility] [address] [phone] Jose Gita Albumin/Globulin [Mass ratio] 1.1 {ratio} Normal [facility] Comment on above: Performed By: #### C MP #### [facility] [address] [phone] Jose Gita ALP [Catalytic activity/Vol] 50 U/L Normal 38-126 [facility] Comment on above: Performed By: #### C MP #### [facility] [address] [place] [address] Jose Gita ALT [Catalytic activity/Vol] 60 U/L Critically high 9-52 [facility] Comment on above: Performed By: #### C MP #### [facility] [address] [place], [place] [phone] Jose Gita Anion gap [Moles/Vol] 8.7 mmol/L Normal [facility] Comment on above: Performed By: #### C MP #### [facility] [address] [place] [address] Jose Gita AST [Catalytic activity/Vol] 41 U/L Critically high 14-36 [facility] Comment on above: Performed By: #### C MP #### [facility] [address] [place], [place] [phone] Jose Gita Bilirubin Ql (U) 0.5 mg/dL Normal 0.2-1.3 [facility] Comment on above: Performed By: #### C MP #### [facility] [address] [place], [place] [phone] Jose Gita Calcium [Mass/Vol] 7.7 mg/dL Critically low 8.4-10.2 Th [facility] Comment on above: Performed By: #### C MP #### [facility] [address] [address] Jose Gita Chloride [Moles/Vol] 107 mmol/L Normal 98-107 [facility] Comment on above: Performed By: #### C MP #### [facility] [address] [phone] Jose Gita CO2 [Moles/Vol] 27.1 mmol/L Normal 22.0-30.0 [facility] Comment on above: Performed By: #### C MP #### [facility] [address] [address] Jose Gita Creatinine [Mass/Vol] 0.93 mg/dL Normal 0.52-1.04 [facility] Comment on above: Performed By: #### C MP #### [facility] [address] [place] [address] Jose Gita EGFR-AF [place]IZ[place] >60 Normal >=60 [facility] Comment on above: Performed By: #### C MP #### [facility] [address] [address] Jose Gita EGFR-NON AF [place] CITIZ[place] >60 Normal >=60 [facility] Comment on above: Performed By: #### C MP #### [facility] [address] [place], [place] [phone] Jose Gita Globulin (S) [Mass/Vol] 3.0 g/dL Normal [facility] Comment on above: Performed By: #### C MP #### [facility] [address] [place] [address] Jose Gita Glucose [Mass/Vol] 114 mg/dL Critically high 74-106 [facility] Comment on above: Performed By: #### C MP #### [facility] [address] [address] Jose Gita Potassium [Moles/Vol] 2.8 mmol/L Critically low 3.4-5.0 [facility] Comment on above: Result Comment: test repeated critical value verified Performed By: #### C MP #### [facility] [address] [place] [address] Jose Gita Protein [Mass/Vol] 6.2 g/dL Normal 6.1-8.2 [facility] Comment on above: Performed By: #### C MP #### [facility] [address] [address] Jose Gita Sodium [Moles/Vol] 141 mmol/L Normal 137-145 [facility] Comment on above: Performed By: #### C MP #### [facility] [address] [id number] Jose Gita Urea nitrogen [Mass/Vol] 16.0 mg/dL Normal 7.0-17.0 [facility] Comment on above: Performed By: #### C MP #### [facility] [address] [phone] Jose Gita Urea nitrogen/Creatinine [Mass ratio] 17.2 mg/mg Normal [facility] Comment on above: Performed By: #### C MP #### [facility] [address] [address] [place], [place] [id number] Jose Gita XR ABD FLAT UP/PA Natalya 12-27 XR ABD FLAT UP/PA CH Patient: LINDA ALVARADO Exam Date: 12/26/2018 : 1975 Gender:F Ordering : DR. NICHOLAS BOLTON . Admission #: [id number] Family : Order #: [id number] CLICK HERE TO VIEW EXAM RADIOLOGY REPORT [...] on 12/27/2018 at 07:35 Approved by: Jane Nicolas M.D. on 12/27/2018 at 07:37 Normal [facility] CBC AUTO DIFFon 12-26-2018 Basophils (Bld) [#/Vol] 0.1 103/ul Normal 0.0-0.1 [facility] Comment on above: Performed By: #### C BC #### [facility] [address] [place], [place] [phone] Jose Gita Basophils/100 WBC (Bld) 0.7 % Normal 0.2-2.0 [facility] Comment on above: Performed By: #### C BC #### [facility] [address] [place], [place] [phone] Jose Gita Eosinophils (Bld) [#/Vol] 0.3 103/ul Normal 0.0-0.7 [facility] Comment on above: Performed By: #### C BC #### [facility] [address] [place], [place] [phone] Jose Gita Eosinophils/100 WBC (Bld) 2.2 % Normal 0.9-7.0 [facility] Comment on above: Performed By: #### C BC #### [facility] [address] [place] [address] Jose Gita Erythrocyte distribution width (RBC) [Ratio] 13.5 % Normal 11.0-15.0 [facility] Comment on above: Performed By: #### C BC #### [facility] [address] [place] [address] Jose Gita Hematocrit (Bld) [Volume fraction] 46.0 % Normal 36.0-48.0 [facility] Comment on above: Performed By: #### C BC #### [facility] [address] [place], [place] [phone] Jose Gita Hemoglobin (Bld) [Mass/Vol] 15.7 g/dL Normal 12.0-16.0 [facility] Comment on above: Performed By: #### C BC #### [facility] [address] [place], [place] [phone] Jose Gita IG # 0.05 10e3/ul Critically high 0.00-0.03 [facility] Comment on above: Performed By: #### C BC #### [facility] [address] [place], [place] [phone] Jose Gita IG % 0.4 % Normal 0.0-0.5 [facility] Comment on above: Performed By: #### C BC #### [facility] [address] [id number] Jose Gita Lymphocytes (Bld) [#/Vol] 1.0 103/ul Critically low 1.2-3.8 [facility] Comment on above: Performed By: #### C BC #### [facility] [address] [id number] Jose Gita Lymphocytes/100 WBC (Bld) 8.8 % Critically low 20.5-60.0 [facility] Comment on above: Performed By: #### C BC #### [facility] [address] [place], [place] [phone] Jose Gita MANUAL DIFF REQ NO Normal [facility] Comment on above: Performed By: #### C BC #### [facility] [address] [place], [place] [phone] Jose Gita MCH (RBC) [Entitic mass] 31.7 pg Normal 26.7-34.0 [facility] Comment on above: Performed By: #### C BC #### [facility] [address] [place], [place] [phone] Jose Gita MCHC (RBC) [Mass/Vol] 34.1 g/dL Normal 29.9-35.2 [facility] Comment on above: Performed By: #### C BC #### [facility] [address] [place], [place] [phone] Jose Gita MCV (RBC) [Entitic vol] 92.9 fL Normal 81.0-99.0 [facility] Comment on above: Performed By: #### C BC #### [facility] [address] [place], [place] [phone] Jose Gita Monocytes (Bld) [#/Vol] 0.3 103/ul Normal 0.3-0.8 [facility] Comment on above: Performed By: #### C BC #### [facility] [address] [id number] Jose Gita Monocytes/100 WBC (Bld) 2.8 % Normal 1.7-12.0 [facility] Comment on above: Performed By: #### C BC #### [facility] [address] [place], [place] [phone] Jose Pelayo Neutrophils (Bld) [#/Vol] 9.8 103/ul Critically high 1.4-6.5 [facility] Comment on above: Performed By: #### C BC #### [facility] [address] [place], [place] [phone] Jose Pelayo Neutrophils/100 WBC (Bld) 85.1 % Critically high 43.0-75.0 [facility] Comment on above: Performed By: #### C BC #### [facility] [address] [place] [address] Jose Pelayo Platelet mean volume (Bld) [Entitic vol] 8.6 fL Critically low 9.5-13.5 [facility] Comment on above: Performed By: #### C BC #### [facility] [address] [place] [address] Jose Pelayo Platelets (Bld) [#/Vol] 543 103/ul Critically high 150-450 [facility] Comment on above: Performed By: #### C BC #### [facility] [address] [place] [address] Jose Pelayo RBC (Bld) [#/Vol] 4.95 106/ul Normal 4.20-5.40 [facility] Comment on above: Performed By: #### C BC #### [facility] [address] [place] [address] Jose Pelayo WBC (Bld) [#/Vol] 11.5 103/ul Critically high 4.0-11.0 [facility] Comment on above: Performed By: #### C BC #### [facility] [address] [place] [address] Jose Pelayo LIPASEon 12-26-2018 Lipase [Catalytic activity/Vol] 186.0 U/L Normal 23.0-300.0 [facility] Comment on above: Performed By: #### L IPA, CMP #### [facility] [address] [place] [address] Jose Cabanen PROF 14(COMP METB)on 019 Albumin [Mass/Vol] 4.5 g/dL Normal 3.5-5.0 [facility] Comment on above: Performed By: #### L IPA, CMP #### [facility] [address] [id number] Jose Gita Albumin/Globulin [Mass ratio] 1.2 {ratio} Normal [facility] Comment on above: Performed By: #### L IPA, CMP #### [facility] [address] [id number] Jose Gita ALP [Catalytic activity/Vol] 65 U/L Normal 38-126 [facility] Comment on above: Performed By: #### L IPA, CMP #### [facility] [address] [address] Jose Gita ALT [Catalytic activity/Vol] 75 U/L Critically high 9-52 [facility] Comment on above: Performed By: #### L IPA, CMP #### [facility] [address] [id number] Jose Gita Anion gap [Moles/Vol] 10.7 mmol/L Normal [facility] Comment on above: Performed By: #### L IPA, CMP #### [facility] [address] [address] Jose Gita AST [Catalytic activity/Vol] 51 U/L Critically high 14-36 [facility] Comment on above: Performed By: #### L IPA, CMP #### [facility] [address] [id number] Jose Gita Bilirubin Ql (U) 0.6 mg/dL Normal 0.2-1.3 [facility] Comment on above: Performed By: #### L IPA, CMP #### [facility] [address] [id number] Jose Gita Calcium [Mass/Vol] 9.3 mg/dL Normal 8.4-10.2 [facility] Comment on above: Performed By: #### L IPA, CMP #### [facility] [address] [address] Jose Gita Chloride [Moles/Vol] 103 mmol/L Normal 98-107 [facility] Comment on above: Performed By: #### L IPA, CMP #### [facility] [address] [address] Jose Gita CO2 [Moles/Vol] 28.8 mmol/L Normal 22.0-30.0 [facility] Comment on above: Performed By: #### L IPA, CMP #### [facility] [address] [address] Jose Gita Creatinine [Mass/Vol] 1.03 mg/dL Normal 0.52-1.04 [facility] Comment on above: Performed By: #### L IPA, CMP #### [facility] [address] [place] [address] Jose Gita EGFR-AF [place]IZ[place] >60 Normal >=60 [facility] Comment on above: Performed By: #### L IPA, CMP #### [facility] [address] [place] [address] Jose Gita EGFR-NON AF [place] 59 mL/min/1.73m2 Critically low >=60 [facility] Comment on above: Performed By: #### L IPA, CMP #### [facility] [address] [place] [address] Jose Gita Globulin (S) [Mass/Vol] 3.7 g/dL Normal [facility] Comment on above: Performed By: #### L IPA, CMP #### [facility] [address] [address] Jose Gita Glucose [Mass/Vol] 114 mg/dL Critically high 74-106 T [facility] Comment on above: Performed By: #### L IPA, CMP #### [facility] [address] [place] [address] Jose Gita Potassium [Moles/Vol] 3.5 mmol/L Normal 3.4-5.0 [facility] Comment on above: Performed By: #### L IPA, CMP #### [facility] [address] [place] [address] Jose Gita Protein [Mass/Vol] 8.2 g/dL Normal 6.1-8.2 [facility] Comment on above: Performed By: #### L IPA, CMP #### [facility] [address] [place], [place] [address] Jose Gita Sodium [Moles/Vol] 139 mmol/L Normal 137-145 [facility] Comment on above: Performed By: #### L IPA, CMP #### [facility] [address] [place], [place] [address] Jose Gita Urea nitrogen [Mass/Vol] 15.0 mg/dL Normal 7.0-17.0 [facility] Comment on above: Performed By: #### L IPA, CMP #### [facility] [address] [place], [place] [address] Jose Gita Urea nitrogen/Creatinine [Mass ratio] 14.6 mg/mg Normal [facility] Comment on above: Performed By: #### L IPA, CMP #### [facility] [address] [place], [place] [address] Jose Gita Vital Signs Date Time Vital Sign Value Performing Clinician Facility 01-30-2024 09:040 Body height 152.4 cm [facility] 01-30-2024 09:[id number] Body mass index (BMI) [Ratio] 38.7 kg/m2 [facility] 01-30-2024 [id number] Body weight 89.81 kg [facility] 01-30-2024 09:26-0400 Diastolic blood pressure 85 mm[Hg] [facility] 01-30-2024 09:26-0400 Heart rate 97 /min [facility] 01-30-2024 09:26-0400 SaO2% (BldA) [Mass fraction] 97 % [facility] 01-30-2024 09:26-0400 Systolic blood pressure 142 mm[Hg] [facility] 01-09-2024 15:16-0400 Body height 152.4 cm [facility] 01-09-2024 15:16-0400 Body mass index (BMI) [Ratio] 37.8 kg/m2 [facility] 01-09-2024 15:16-0400 Body temperature 97.7 [degF] [facility] 01-09-2024 15:16-0400 Body weight 87.99 kg [facility] 01-09-2024 15:16-0400 Diastolic blood pressure 80 mm[Hg] [facility] 01-09-2024 15:16-0400 Heart rate 90 /min [facility] 01-09-2024 15:16-0400 Respiratory rate 18 /min [facility] 01-09-2024 15:16-0400 SaO2% (BldA) [Mass fraction] 99 % [facility] 01-09-2024 15:16-0400 Systolic blood pressure 131 mm[Hg] [facility] 12-25-2023 17:21-0400 Body height 152.4 cm [facility] 12-25-2023 17:21-0400 Body mass index (BMI) [Ratio] 30.2 kg/m2 [facility] 12-25-2023 17:21-0400 Body temperature 98.3 [degF] [facility] 12-25-2023 17:21-0400 Body weight 70.3 kg [facility] 12-25-2023 17:21-0400 Heart rate 96 /min [facility] 12-25-2023 17:21-0400 Respiratory rate 18 /min [facility] 12-25-2023 17:21-0400 SaO2% (BldA) [Mass fraction] 96 % [facility] 10-04-2023 08:09-0500 Body mass index (BMI) [Ratio] 37.07 kg/m2 Gita HUSAIN Work Phone: [facility] 10-04-2023 08:09-0500 Body weight 86.09 kg Gita HUSAIN Work Phone: [facility] 10-04-2023 08:09-0500 Diastolic blood pressure 75 mm[Hg] Gita HUSAIN Work Phone: [facility] 10-04-2023 08:09-0500 Heart rate 94 /min Gita Hemmer PA Work Phone: [facility] [employer] 10-04-2023 08:09-0500 Respiratory rate 14 /min Gita Hemmer PA Work Phone: [facility] [employer] 10-04-2023 08:09-0500 SaO2% (BldA) [Mass fraction] 95 % Gita Hemmer PA Work Phone: [facility] [employer] 10-04-2023 08:09-0500 Systolic blood pressure 140 mm[Hg] Gita Hemmer PA Work Phone: [facility] [employer] 08-01-2023 08:30-0500 Body height 152.4 cm Jane Waller Other [employer] Other 04-02-2023 11:15-0400 Body height 152.4 cm aJne Waller Other [employer] Other 04-02-2023 11:15-0400 Body mass index (BMI) [Ratio] 36.71 kg/m2 Jane Waller Other [employer] Other 04-02-2023 11:15-0400 Body weight 85.28 kg Jane Waller Other [employer] Other 04-02-2023 11:15-0400 Diastolic blood pressure 82 mm[Hg] Jane Waller Other [employer] Other 04-02-2023 11:15-0400 SaO2% (BldA) [Mass fraction] 98 % Jane Waller Other [employer] Other 04-02-2023 11:15-0400 Systolic blood pressure 143 mm[Hg] Jane Waller Other [employer] Other 02-06-2023 08:45-0400 Body height 152.4 cm Jane Waller Other [employer] Other 02-06-2023 08:45-0400 Diastolic blood pressure 79 mm[Hg] Jane Waller Other [employer] Other 02-06-2023 08:45-0400 SaO2% (BldA) [Mass fraction] 96 % Jane Waller Other [employer] Other 02-06-2023 08:45-0400 Systolic blood pressure 118 mm[Hg] Jane Waller Other [employer] Other 03-19-2022 10:00-0400 Body height 152.4 cm Ciera Poppy Other [employer] Other 03-19-2022 10:00-0400 Body mass index (BMI) [Ratio] 35.74 kg/m2 Ciera Poppy Other [employer] Other 03-19-2022 10:00-0400 Body temperature 96.8 [degF] Ciera Poppy Other [employer] Other 03-19-2022 10:00-0400 Body weight 83.01 kg Ciera Poppy Other [employer] Other 03-19-2022 10:00-0400 Diastolic blood pressure 89 mm[Hg] Ciera Poppy Other [employer] Other 03-19-2022 10:00-0400 Respiratory rate 20 /min Ciera Poppy Other [employer] Other 03-19-2022 10:00-0400 SaO2% (BldA) [Mass fraction] 98 % Ciera Poppy Other [employer] Other 03-19-2022 10:00-0400 Systolic blood pressure 142 mm[Hg] Ciera Poppy Other [employer] Other 02-22-2022 11:00-0400 Body height 152.4 cm Jane Waller Other [employer] Other 02-22-2022 11:00-0400 Body mass index (BMI) [Ratio] 35.93 kg/m2 Jane Waller Other [employer] Other 02-22-2022 11:00-0400 Body temperature 97.7 [degF] Jane Waller Other [employer] Other 02-22-2022 11:00-0400 Body weight 83.46 kg Jane Waller Other [employer] Other 02-22-2022 11:00-0400 Diastolic blood pressure 82 mm[Hg] Jane Waller Other [employer] Other 02-22-2022 11:00-0400 SaO2% (BldA) [Mass fraction] 98 % Jane Waller Other [employer] Other 02-22-2022 11:00-0400 Systolic blood pressure 122 mm[Hg] Jane Waller Other [employer] Other 08-22-2021 16:30-0500 Body height 152.4 cm Jane Waller Other [employer] Other 08-22-2021 16:30-0500 Body mass index (BMI) [Ratio] 37.2 kg/m2 Jane Waller Other [employer] Other 08-22-2021 16:30-0500 Body temperature 97.5 [degF] Jane Sridhar Other [employer] Other 08-22-2021 16:30-0500 Body weight 86.41 kg Jane Sridhar Other [employer] Other 08-22-2021 16:30-0500 Diastolic blood pressure 83 mm[Hg] Jane Sridhar Other [employer] Other 08-22-2021 16:30-0500 SaO2% (BldA) [Mass fraction] 97 % Jane Sridhar Other [employer] Other 08-22-2021 16:30-0500 Systolic blood pressure 141 mm[Hg] Jane Sridhar Other [employer] Other 08-19-2021 10:20-0500 Body height 152.4 cm Tracy Oliver Other [employer] Other 08-19-2021 10:20-0500 Body mass index (BMI) [Ratio] 36.52 kg/m2 Tracy Oliver Other [employer] Other 08-19-2021 10:20-0500 Body temperature 97.9 [degF] Tracy Oliver Other [employer] Other 08-19-2021 10:20-0500 Body weight 84.82 kg Tracy Oliver Other [employer] Other 08-19-2021 10:20-0500 Diastolic blood pressure 80 mm[Hg] Tracy Oliver Other [employer] Other 08-19-2021 10:20-0500 Respiratory rate 18 /min Tracy Oliver Other [employer] Other 08-19-2021 10:20-0500 SaO2% (BldA) [Mass fraction] 100 % Tracy Oliver Other [employer] Other 08-19-2021 10:20-0500 Systolic blood pressure 146 mm[Hg] Tracy Oliver Other [employer] Other 06-01-2021 09:30-0400 Body height 152.4 cm Jane Sridhar Other [employer] Other Encounters Encounter Date Encounter Type Care Provider Facility Start: 05-20-2024 End: 05-20-2024 ambulatory II Elver Mendenhall Work Phone: [facility] Work Phone: Start: 05-20-2024 End: 05-20-2024 Departed Referred II Elver Mendenhall Work Phone: [facility] [place] Work Phone: Start: 05-19-2024 End: 05-19-2024 Patient encounter procedure II Elver Mendenhall Work Phone: [facility] Work Phone: Start: 05-19-2024 End: 05-20-2024 ambulatory II Elver Mendenhall Work Phone: [facility] Work Phone: Start: 05-14-2024 End: 05-14-2024 ambulatory ISADORA BARNARD Not Available Start: 05-13-2024 End: 05-13-2024 ambulatory GITA GARCIA Not Available Start: 03-04-2024 End: 03-04-2024 ambulatory SEB Rogers APLING Not Available Start: 01-30-2024 End: 01-30-2024 ambulatory [facility] Work Phone: Start: 01-30-2024 End: 01-30-2024 Patient encounter procedure [facility] Work Phone: Start: 01-09-2024 End: 01-09-2024 ambulatory [facility] Work Phone: Start: 01-09-2024 End: 01-09-2024 Patient encounter procedure [facility] Phys[facility] Work Phone: Start: 12-25-2023 End: 12-25-2023 ambulatory [facility] Work Phone: Start: 12-25-2023 End: 12-25-2023 Patient encounter procedure [facility] Work Phone: Start: 10-14-2023 End: 10-14-2023 Office outpatient visit 15 minutes Lubna A Felter [employer] ENGINEER-[employer] MACHINE OPERATOR Work Phone: [facility] Comment on above: Nevus; Perioral dermatitis Start: 10-14-2023 End: 10-14-2023 ambulatory LUBNA A FELTER Not Available Start: 10-10-2023 End: 10-10-2023 ambulatory Jane Waller Other [facility] [employer] Other Start: 10-10-2023 Telephone encounter Jane Waller [facility] Start: 10-04-2023 Chart abstracting Gita Lea er PA Work Phone: [facility] Start: 10-04-2023 End: 10-04-2023 Patient encounter status Gita HUSAIN Work Phone: [facility] Work Phone: Start: 10-04-2023 End: 10-04-2023 Periodic preventive med est patient 40-64yrs Gita HUSAIN Work Phone: [facility] Comment on above: Wellness examination (Primary [...] 09-05-2023 End: 09-05-2023 ambulatory Jane Waller Other [employer] Other Start: 09-05-2023 Telephone encounter Jane Waller [facility] Start: 08-01-2023 Office outpatient vi sit 25 minutes Jane Waller [facility] Start: 08-01-2023 End: 08-01-2023 Patient encounter procedure II Elver Mendenhall Work Phone: [facility] Work Phone: Start: 08-01-2023 End: 08-01-2023 ambulatory II Elver Mendenhall Work Phone: [employer] Other Start: 07-30-2023 End: 07-30-2023 ambulatory Ciera Poppy Other [employer] Other Start: 07-30-2023 Office outpatient vi sit 25 minutes Ciera Poppy [facility] Start: 07-16-2023 End: 07-16-2023 ambulatory Ciera Poppy Other [employer] Other Start: 07-16-2023 Telephone encounter Ciera Poppy [facility] Start: 07-15-2023 End: 07-15-2023 ambulatory GITA GARCIA Not Available Start: 06-13-2023 End: 06-13-2023 ambulatory Jane Waller Other [employer] Other Start: 06-13-2023 Telephone encounter Jane Song [facility] Start: 06-03-2023 End: 06-03-2023 ambulatory Jane Waller Other [employer] Other Start: 06-03-2023 Telephone encounter Jane Waller [facility] Start: 04-02-2023 Office outpatient vi sit 25 minutes Jane Waller [facility] Start: 04-02-2023 End: 04-02-2023 ambulatory II Elver Mendenhall Work Phone: [facility] [employer] Other Start: 04-02-2023 End: 04-02-2023 Patient encounter procedure II Elver Mendenhall Work Phone: [facility] Work Phone: Start: 03-11-2023 End: 03-11-2023 ambulatory Efraín Patel Other [employer] Other Start: 03-11-2023 Telephone encounter Vladislavchencho Rossdarrel [facility] Start: 02-06-2023 Office outpatient vi sit 25 minutes Jane Sridhar [facility] Start: 02-06-2023 End: 02-06-2023 ambulatory II Elver Mendenhall Work Phone: [employer] Other Start: 02-06-2023 End: 02-06-2023 Patient encounter procedure II Elver Mendenhall Work Phone: [facility] Work Phone: Start: 11-22-2022 End: 11-22-2022 ambulatory Jane Waller Other [employer] Other Start: 11-22-2022 Telephone encounter Jane Song [facility] Start: 08-28-2022 End: 08-28-2022 ambulatory Jane Sridhar Other [employer] Other Start: 08-28-2022 Telephone encounter Jane Song [facility] Start: 07-03-2022 End: 07-03-2022 Patient encounter procedure II Elver Mendenhall Work Phone: [facility] Start: 07-03-2022 End: 07-03-2022 ambulatory II Elver Mendenhall Work Phone: [facility] Work Phone: Start: 07-03-2022 Office outpatient vi sit 25 minutes Jane Waller [facility] Start: 05-24-2022 End: 05-24-2022 ambulatory Jane Sridhar Other [employer] Other Start: 05-24-2022 Telephone encounter Jane Sridhar [facility] Start: 03-19-2022 End: 03-19-2022 ambulatory Ciera Poppy Other [employer] Other Start: 03-19-2022 Office outpatient vi sit 25 minutes Ciera Poppy [facility] Start: 02-23-2022 End: 02-23-2022 ambulatory Jane Sridhar Other [employer] Other Start: 02-23-2022 Telephone encounter Jane Sridhar Song [facility] Start: 02-22-2022 End: 02-22-2022 ambulatory Jane Sridhar Other [employer] Other Start: 02-22-2022 Office outpatient vi sit 25 minutes Jane Waller [facility] Start: 11-24-2021 End: 11-24-2021 ambulatory Jane Sridhar Other [employer] Other Start: 11-24-2021 Telephone encounter Jane Sridhar Song [facility] Start: 09-08-2021 End: 09-08-2021 ambulatory Jane Waller Other [employer] Other Start: 09-08-2021 Telephone encounter Ciera Mcwilliams [facility] Start: 08-22-2021 End: 08-22-2021 ambulatory Jane Waller Other [employer] Other Start: 08-22-2021 Office outpatient vi sit 25 minutes Jane Sridhar [facility] Start: 08-19-2021 End: 08-19-2021 ambulatory Tracy Benito Other [employer] Other Start: 08-19-2021 Office outpatient vi sit 15 minutes Tracy Oliver [facility] Start: 08-02-2021 End: 08-02-2021 ambulatory Jane Waller Other [employer] Other Start: 08-02-2021 Telephone encounter Jane Waller [facility] Start: 06-30-2021 Telephone encounter Jane Waller [facility] Start: 06-01-2021 Office outpatient vi sit 25 minutes Jane Sridhar [facility] Start: 07-07-2019 End: 07-13-2019 Evaluation and management of inpatient ELVER MENDENHALL Facility:[facility] Start: 07-06-2019 End: 07-07-2019 Patient encounter procedure [...] above: Performed By: #### [id number] #### [address] [address] [place] [id number] [place] [address] Start: 12-27-2018 End: 12-27-2018 Microscopic examination of blood, culture ELVER MENDENHALL Comment on above: Performed By: #### B [id number] #### [facility] [address], [place] [address] Jose Pelayo Performed By: #### L IPA, CMP #### [facility] [address], [place] [address] Jose Pelayo Plan of Treatment Date Care Activity Detail Author Start: 03-27-2028 Screening for malign ant neoplasm [facility]ix [facility] Start: 02-08-2025 End: 02-08-2025 Patient encounter procedure 02/08/2025 8:30 AM EDT Office Visit [facility] [address] [place] [phone] Lubna Lawrence, BIOINFORMATICS SOFTWARE ENGINEER-GLUE SIZE MACHINE OPERATOR [address] [place] [address] [facility] Start: 04-09-2024 End: 04-09-2024 Patient encounter procedure 04/09/2024 9:35 AM EDT Office Visit [facility] [address] [place] [phone] Lubna Lawrence, BIOINFORMATICS SOFTWARE ENGINEER-GLUE SIZE MACHINE OPERATOR [address] [place] [address] [facility] Start: 03-31-2024 End: 03-31-2024 Patient encounter procedure 03/31/2024 9:45 AM EDT Office Visit [facility] [address] [place] [phone] Lenny Snow DO [address] [place] [address] [facility] Start: 11-15-2023 End: 11-15-2023 Patient encounter procedure 11/15/2023 8:30 AM EDT Office Visit [facility] [address] [place] [phone] Gita Garcia PA [address] [place] [address] [facility] Start: 10-14-2023 End: 10-14-2023 Patient encounter procedure 10/14/2023 8:30 AM EST Office Visit [facility] [address] [place] [address] Lubna Lawrence, BIOINFORMATICS SOFTWARE ENGINEER-GLUE SIZE MACHINE OPERATOR [address] [place] [address] [facility] Start: 10-04-2023 End: 10-04-2024 CBC W Auto Differential panel - Blood CBC and differential Lab Routine Wellness examination Iron deficiency Thrombocythemia Anemia, unspecified type Expected: 10/04/2023 (Approximate), Expires: 10/04/2024 [facility] Work Phone: Comment on above: Expected: 10/04/2023 (Approximate), Expires: 10/04/2024 Start: 10-04-2023 End: 10-04-2024 Comprehensive metabolic 2000 panel - Serum or Plasma Comprehensive metabolic panel Lab Routine Wellness examination Ankle edema Elevated ALT measurement Mixed hyperlipidemia (CMS/HCC) Expected: 10/04/2023 (Approximate), Expires: 10/04/2024 [facility] Comment on above: Expected: [...] unspecified type Expected: 10/04/2023 (Approximate), Expires: 10/04/2024 [facility] Comment on above: Expected: 10/04/2023 (Approximate), Expires: 10/04/2024 Start: 10-04-2023 End: 10-04-2024 Lipid 1996 panel - Serum or Plasma Lipid panel Lab Routine Wellness examination Elevated ALT measurement Mixed hyperlipidemia (CMS/HCC) Expected: 10/04/2023 (Approximate), Expires: 10/04/2024 [facility] Comment on above: Expected: 10/04/2023 (Approximate), Expires: 10/04/2024 Start: 10-04-2023 End: 10-04-2024 TSH W/REFLEX TO FT4 TSH W/REFLEX TO FT4 Lab Routine Wellness examination Tachycardia Weight gain Expected: 10/04/2023 (Approximate), Expires: 10/04/2024 [facility] Comment on above: Expected: 10/04/2023 (Approximate), Expires: 10/04/2024 Start: 10-04-2023 End: 10-04-2023 Patient encounter procedure 10/04/2023 8:00 AM EST Office Visit [facility] [address] [facility] [address] [place] [phone] Gita Garcia PA [address] [facility] [address] [place] [address] [facility] Start: 05-03-2023 Influenza vaccination Influenza Vacc ine (#1) [facility] Start: 12-09-2021 Screening for malign ant neoplasm of breast Mammogram [facility] Start: 1997 Screening for malign ant neoplasm of cervix Pap Smear [facility] Start: 1975 Screening for malign ant neoplasm of colon [facility] Immunizations Immunization Date Immunization Notes Care Provider Fa cilinelida 03-10-2016 Rocephin 500 mg Jane Waller Other [facility] Other 02-17-2016 tetanus toxoid, reduced diphtheria toxoid, and acellular pertussis vaccine, adsorbed Gita Garcia PA Work Phone: [facility] Work Phone: Payers Date Payer Category Payer Self-pay [id number] 2022 Unknown BCBS BCBS [id number] 2022-Present [phone] [address] [place] [address] [id number] 2022 Blue Cross Blue Shield [id number] [id number] 1975 Unknown [id number] 2.16.840.1.717689.3.579.2. 593 1976 Unknown [id number] 2.16.840.1.087925.3.579.2. 593 1976 Unknown [id number] 2.16.840.1.180093.3.579.2. 593 1976 Unknown [id number] 2.16.840.1.517206.3.579.2. 593 1976 Unknown [id number] 2.16.840.1.688652.3.579.2. 647 1976 Unknown [id number] 2.16.840.1.890703.3.579.2. 1259 1976 Unknown [id number] 2.16.840.1.263600.3.579.2. 1259 1976 Unknown [id number] 2.16.840.1.044990.3.579.2. 1259 1976 Unknown [id number] 2.16.840.1.310934.3.579.2. 1259 1976 Unknown [id number] 2.16.840.1.658358.3.579.2. 1259 1976 Unknown [id number] 2.16.840.1.383973.3.579.2. 1259 1976 Unknown [id number] 2.16.840.1.440328.3.579.2. 1259 1959 Unknown [id number] Unknown [id number] 2.16840.1.055434.19 Unknown Copay Assistance Program [id number] Unknown [id number] 2.16840.1.919343.3.579.2. 531 Unknown [id number] 2.16840.1.543533.3.579.2. 531 Unknown [id number] 2.16840.1.703580.3.579.2. 531 Social History Date Type Detail Facility Unknown if ever smoked [facility] Other Start: 03-27-2023 End: 07-15-2023 Sex Assigned At [facility] Start: 03-13-2021 End: 12-25-2023 Tobacco smoking status NDIS Never smoked tobacco (finding) [facility] Start: 1975 Sex Assigned At Female [facility] Start: 03-27-2023 End: 10-14-2023 Tobacco use and exposure Smokeless tobacco non-user [facility] Start: 07-15-2023 End: 10-14-2023 Alcohol intake Lifetime non-drinker (finding) [facility] Start: 03-27-2023 End: 07-15-2023 History of Social function [facility] Within the last year , have you been afraid of your partner or ex-partner? No [facility] Do you belong to any clubs or organizations such as mosque groups, unions, fraternal or athletic groups, or [...] intak e: 1-2 cups per day soda [facility] Start: 1975 Sex Assigned At Not on file N [facility] NEGATED: Highlighted rowStart: NINF History of tobacco use Passive smoker [facility] Clinical Notes 11-18-2020 to 10-14-2023 Lubna Lawrence, BIOINFORMATICS SOFTWARE ENGINEER-GLUE SIZE MACHINE OPERATOR - 10/14/2023 8:30 AM EST Note Date [...] Visit: 1 year documented in this encounter [facility] 10-10-2023 Evaluation note Encounter Date Diagnosis Assessment Notes Oct, ROBYN (obstructi ve sleep apnea) (ICD-10 - G47.33) [facility] Other 02-02-2024 History of Present illness Narrative* [...] Miscarriage 2010 OCD (obsessive compulsive disorder) (CMS/HCC) ROYBN (obstructive sleep apnea) Seasonal allergies Past Surgical [...] daytime sleepiness The patient is seeing a pesticide use medical coordinator for this condition, treatment is deferred to that specialist. Correspondence from that specialist and any available testing were reviewed during today's visit. Obstructive sleep apnea The patient is seeing a pesticide use medical coordinator for this condition, treatment is deferred to [...] Female infertility The patient is seeing a pesticide use medical coordinator for this condition, treatment is deferred to [...] tibial fracture The patient is seeing a pesticide use medical coordinator for this condition, treatment is deferred to [...] (around 11/15/2023) for Recheck. [id number] Evaluation note* Encounter Date Diagnosis Assessment Notes [...] but has reported symptoms in the past [facility] Other 11-28-2023 Evaluation note* Encounter Date Diagnosis Assessment Notes Treatment Notes Treatment Clinical Notes Jul, Mild intermittent asthma, uncomplicated (ICD-10 - J45.20) [facility] Other 10-12-2023 Evaluation note* Encounter Date Diagnosis Assessment Notes Treatment Notes Treatment Clinical Notes Jun, ROBYN (obstructive sleep apnea) (ICD-10 - G47.33) [facility] Other 10-02-2023 Evaluation note* Encounter Date Diagnosis Assessment Notes Treatment Notes Treatment Clinical Notes Jun, ROBYN (obstructive sleep apnea) (ICD-10 - G47.33) [facility] Other 08-01-2023 Evaluation note* Encounter Date Diagnosis [...] is present Apr, Cataplexy (ICD-10 - G47.411) [facility] Other 07-10-2023 Evaluation note* Encounter Date Diagnosis Assessment Notes Treatment Notes Treatment Clinical Notes Mar, Mild intermittent asthma, uncomplicated (ICD-10 - J45.20) [facility] Other 2023 Evaluation note* Encounter Date Diagnosis [...] night before attempted MSLT. Her persistent elevated Pearblossom sleepiness score, at 17, continues to show [...] have not gotten the PSG MSLT documentation [facility] Other 03-23-2023 Evaluation note* Encounter Date Diagnosis Assessment Notes Treatment Notes Treatment Clinical Notes Oct, ROBYN (obstructive sleep apnea) (ICD-10 - G47.33) [facility] Other 12-27-2022 Evaluation note* Encounter Date Diagnosis Assessment Notes Treatment Notes Treatment Clinical Notes Aug, ROBYN (obstructive sleep apnea) (ICD-10 - G47.33) [facility] Other 11-01-2022 Evaluation note* Encounter Date Diagnosis [...] sleepiness does suggest the diagnosis of narcolepsy [facility] Other 09-22-2022 Evaluation note* Encounter Date Diagnosis Assessment Notes Treatment Notes Treatment Clinical Notes May, ROBYN (obstructive sleep apnea) (ICD-10 - G47.33) [facility] Other 07-18-2022 Evaluation note* Encounter Date Diagnosis Assessment Notes Treatment Notes Treatment Clinical Notes Mar, Mild intermittent asthma, uncomplicated (ICD-10 - J45.20) Take Breo 1 inhalation daily if you run out of Advair. 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) [facility] Other 01-07-2022 Evaluation note* Encounter Date Diagnosis Assessment Notes Treatment Notes Treatment Clinical Notes Sep, Mild intermittent asthma, uncomplicated (ICD-10 - J45.20) [facility] Other 01-07-2022 Evaluation note* Encounter Date Diagnosis Assessment Notes Treatment Notes Treatment Clinical Notes Sep, Narcolepsy and cataplexy (ICD-10 - G47.411) [facility] Other 12-21-2021 Evaluation note* Encounter Date Diagnosis [...] have significant positive effects on sleep apnea [facility] Other 12-18-2021 Evaluation note* Encounter Date Diagnosis Assessment Notes Treatment Notes Treatment Clinical Notes Aug, Cellulitis of right lower extremity (ICD-10 - L03.115) Use medications as directed. Cover area as instructed. May use gently cleanser to area between daily application as instructed.. Follow up with primary care provider if no improvement of symptoms or if symptoms worsen. [facility] Other 12-01-2021 Evaluation note* Encounter Date Diagnosis Assessment Notes Treatment Notes Treatment Clinical Notes Aug, Narcolepsy and cataplexy (ICD-10 - G47.411) [facility] Other 10-29-2021 Evaluation note* Encounter Date Diagnosis Assessment Notes Treatment Notes Treatment Clinical Notes Jun, Narcolepsy and cataplexy (ICD-10 - G47.411) [facility] Other 09-30-2021 Evaluation note* Encounter Date Diagnosis [...] PAP for ROBYN and med for narcolepsy [facility] Other 07-12-2021 Progress note Author John Cowan [facility] March 13, 2021 9:57am Note Date/Time March 13, 2021 9:43 am [facility] at [address] [address] Hem/Onc Follow Up Note - OP Signed Patient: Linda Alvarado MR#: [id number] : 1975 Acct:[id number] Age/Sex: 45 / F Type: REG RCR Copies to: MD Gita Navarrete II, PA-C~ Subjective Date/Time of Service: Date of Service: 03/13/2021 Time of Service: 09:37 Chief Complaint: Patient is here for a 4 month follow up for thrombocytosis withlabs 03/08/2021 for review. No concerns are voiced at this time. HPI: 45-year-old female primary patient of Gtia Garcia nurse practitioner in [facility]. She is referred for mild thrombocytosis, [...] lymphoma in her 40s. at 61 of [place]. She had 6 first trimester miscarriages, one [...] of frequent infections or delayed wound healing.] [facility] - Medical History Medical History: Medical History [...] % (Auto) 67.8, Lymph % (Auto) 21.7, Laurel % (Auto) 6.5, Eos % (Auto) 2.9, Baso % (Auto) 1.1, Neut # (Auto) 5.7, Lymph # (Auto) 1.8, Laurel # (Auto) 0.5, Eos # (Auto) 0.2, [...] for coordination of care (as documented) and [id number] counseling of patient and/or family. Dictated By: John Cowan MD DD/ Signed By: <Electronically signed by John Cowan MD> 03/13/21 0957 [facility] Work Phone: 1(123) 610-538003-19-2021 Progress note Author Cheng Almaguer [facility] November 18, 2020 5:11pm Note Date/Time November 18, 2020 2:4 6pm [facility] [place] [address] Hem/Onc Follow Up Note - OP Signed with Addenda Patient: Linda Alvarado MR#: [id number] : 1975 Acct:[id number] Age/Sex: 45 / F Type: REG RCR [...] patient of Gita Garcia nurse practitioner in [facility]. She is referred for thrombocytosis. Past [...] lymphoma in her 40s. at 61 of [place]. She had 6 first trimester miscarriages, one [...] known thrombosis. she has never had mammogram. [facility] - Medical History Medical History: Medical History [...] for coordination of care (as documented) and [id number]-[id number] counseling of patient and/or family. Attestation Statement - Physician Attestation cbc, cmp, ferritin, iron, iron sat. Jak2. she will call to discsuss results. f/u with me 1 year. Dictated By: Cheng Almaguer II, DO DD/ 1445 Signed By: <Electronically signed by Cheng Almaguer II, DO> 11/18/20 1506 [facility] Work Phone: 1(971) 140-162803-19-2021 Progress note Author Cheng Almaguer [facility] November 18, 2020 5:10pm Note Date/Time November 18, 2020 5:1 0pm [facility] [place] [address] Hem/Onc Follow Up Note - OP Signed Patient: Linda Alvarado MR#: [id number] : 1975 Acct:[id number] Age/Sex: 45 / F Type: REG RCR Copies to: MD Gita Navarrete II, PA-C~ Subjective Date/Time of Service: Date of Service: 11/18/2020 Time of Service: 17:09 Chief Complaint: Patient is here today for a referral from LISHA Dhaliwal for elevated platelets HPI: 45-year-old female primary patient of Gita Garcia nurse practitioner in [facility]. She is referred for thrombocytosis. Past [...] lymphoma in her 40s. at 61 of [place]. She had 6 first trimester miscarriages, one [...] known thrombosis. she has never had mammogram. [facility] - Medical History Medical History: Medical History [...] % (Auto) 70.1, Lymph % (Auto) 22.2, Laurel % (Auto) 4.9, Eos % (Auto) 2.0, Baso % (Auto) 0.8, Neut # (Auto) 7.4, Lymph # (Auto) 2.3, Laurel # (Auto) 0.5, Eos # (Auto) 0.2, [...] for coordination of care (as documented) and trgx-yy-[id number] counseling of patient and/or family. Attestation Statement - Physician Attestation We will give 2 doses of IV Injectafer and follow-up with me in 3 months. Prior to follow-up check CBC, CMP, iron, ferritin, iron binding capacity. Dictated By: Cheng Almaguer II, DO DD/ 170 Signed By: <Electronically signed by Cheng Almaguer II, DO> 11/18/20 1710 [facility] Work Phone: Evaluation noteNo assessment information available [facility] Work Phone: Evaluation noteNo InformationNort Sedicidodici Other Evaluation note* Diagnosis Wellness examination- Primary [...] of left lower leg noneactive [facility] Work Phone: Evaluation note* Diagnosis Onset Date Resolution Status Cellulitis of left lower leg noneactive Dysuria noneactive [facility] Work Phone: Evaluation note* Diagnosis Onset Date Resolution Status Cellulitis of left lower leg noneactive Abdominal pain acute Hypnagogic hallucinations ac seven Narcolepsy and cataplexy acu te OCD (obsessive compulsive disorder) acute ROBYN (obstructive sleep apnea) acute Sleep paralysis acute [facility] Work Phone: Hiswvwk general Narrative - Reported* Type Description Date Medical History allergies Medical History asthma Medical History OCD (obsessive compulsive disord er) Medical History Herpes Medical History ROBYN -Auto BiPAP with maximum of 14 minimum of 5 with pressure support of 4. Surgical History D&C Surgical History cholecystectomy Surgical History carpal tunnel release Surgical History C section Hospitalization History see above [facility] Other History general Narrative - Reported* Type [...] History C section Hospitalization History see above [facility] Other Hisjnaa general Narrative - Reported* Type Description Date Medical History allergies Medical History asthma Medical History OCD (obsessive compulsive disord er) Medical History Herpes Medical History ROBYN -Auto BiPAP Medical History suspected narcolepsy - EDS, clinical cataplexy, inconclusive PSG/MSLT Surgical History D&C Surgical History cholecystectomy Surgical History carpal tunnel release Surgical History C section Hospitalization History see above [facility] Other Summary Purpose Family History No Family [...] 2017 9:15am Hospital Course Note MR#: [id number] [facility] Pt. Name: Linda Alvarado Admitted: 07/07/2019 Discharged: [...] section and content) DATE CREATED AUTHOR 03/28/2018 [facility] DATE CREATED AUTHOR AUTHOR'S ORGANIZ ATION 03/29/2018 [facility] DATE CREATED AUTHOR AUTHOR'S ORGANIZ ATION 07/08/2019 [facility] DATE CREATED AUTHOR AUTHOR'S ORGANIZ ATION 04/05/2020 [facility] DATE CREATED AUTHOR AUTHOR'S ORGANIZ ATION 09/19/2021 [facility] DATE CREATED AUTHOR AUTHOR'S ORGANIZ ATION 05/15/2024 [facility] EPIC DATE CREATED AUTHOR AUTHOR'S ORGANIZ ATION 05/30/2024 [facility] REASON FOR VISIT (unrecogniz ed [...] Active Jane Waller MD Attending Provider Active Executive Vice President And Chief Operating Officer Relationship Specialty Start Date End Date Elver Mendenhall MD [address] [facility] [address] [place] [address] PCP - General Internal Medicine 03/27/23 Executive Vice President And Chief Operating Officer Relationship Specialty Start Date End Date Elver Mendenhall MD [address] [facility] [address] [place] [address] PCP - General Internal Medicine 03/27/23 Executive Vice President And Chief Operating Officer Relationship Specialty Start Date End Date Elver Mendenhall MD [address] [place] [address] PCP - General Internal Medicine 03/27/23 Team Status: Inactive Member Role Status Dates Elver Mendenhall II MD Primary Care Provider Active Start: December 25, 2023 End: December 25, 2023 Dari Yesenia , MANAGER CARDIOLOGY-C Attending Provider Active S tart: December 25, [...] BE BASED ON THE PRIMARY CLINICAL RECORDS. [employer] provides no warranty or guarantee of the accuracy or completeness of information in this document.
[2024-05-31] VITALS (12 sets, daily range): BP systolic 111–120; BP diastolic 68–75; PULSE 68–93; TEMP 36.7–37.2; O2SAT 93–97
--- NOTE | 2024-05-31 00:07 | XR_ITS ---
The [address] [address] Patient Name: COLEEN ALVARADO MRN: [id number] date: 1975 Sex: F Assigned Patient Location: [place] Current Patient Location: Accession/Order Number: [id number] Exam Date: 05/31/2024 00:20 Report Date: 05/31/2024 03:51 At the request of: MURRAY PERRIN Procedure: XR chest 1V EXAM: XR chest 1V HISTORY: chest pain COMPARISON: None. TECHNIQUE: One view of the chest was obtained. FINDINGS: The cardiac silhouette is normal in size. There is perihilar interstitial prominence and indistinctness. There is no significant pneumothorax or pleural effusion. No acute osseous abnormality is seen. XR/XR chest 1V IMPRESSION: 1. Perihilar interstitial prominence and indistinctness suggestive of edema. Electronically authenticated by: Remington WEAVER Date: 05/31/2024 03:51
--- NOTE | 2024-05-31 00:07 | ECG_ITS ---
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
[2024-05-31] MEDS: POTASSIUM CHLORIDE 10 MEQ/100 ML WATER PREMIX 100 MEQ IV ×2 (00:42→01:50)
[2024-05-31] MEDS: ASPIRIN 325 MG TABLET PO (00:43)
[2024-05-31] MEDS: POTASSIUM CHLORIDE-0.45% NACL 1,000 ML 50 ML IV (00:43)
[2024-05-31 00:57] LABS: Troponin I High Sensitivity 6.1 pg/mL (4.0-51.3)
[2024-05-31 01:02] LABS: Alanine Aminotransferase 58 U/L (14-59); Albumin Globulin Ratio 1.1; Albumin Level 3.1 g/dL (3.4-5.0); Alkaline Phosphatase 54 U/L (46-116); Anion Gap 9.1; Aspartate Amino Transferase 22 U/L (15-37); BUN Creatinine Ratio 17.2; Bilirubin Total 0.4 mg/dL (0.2-1.0); Calcium 8.3 mg/dL (8.5-10.1); Carbon Dioxide 30.9 mmol/L (21.0-32.0); Chloride 103 mmol/L (98-107); Estimated GFR (African America >60 (>=60); Estimated GFR (Non-African Ame >60 (>=60); Globulin 2.9 g/dL; Glucose 149 mg/dL (74-106); Magnesium 2.2 mg/dL (1.8-2.4); Sodium 140 mmol/L (136-145)
[2024-05-31 03:45] LABS: Troponin I High Sensitivity 5.7 pg/mL (4.0-51.3)
[2024-05-31 06:10] LABS: Basophils Absolute Auto 0.1 10^3/uL (0.0-0.1); Basophils Percent Auto 1.2 % (0.2-2.0); Eosinophils Absolute Auto 0.7 10^3/uL (0.0-0.7); Eosinophils Percent Auto 6.7 % (0.9-7.0); Hematocrit 35.3 % (36.0-48.0); Immature Granulocytes Abs Auto 0.08 10^3/uL (0.00-0.03); Immature Granulocytes Pct Auto 0.7 % (0.0-0.5); Lymphocytes Absolute Auto 3.1 10^3/uL (1.2-3.8); Lymphocytes Percent Auto 27.8 % (20.5-60.0); Mean Corpuscular Hemoglobin 33.1 pg (26.7-34.0); Mean Corpuscular Volume 97.5 fL (81.0-99.0); Mean Platelet Volume 9.2 fL (9.5-13.5); Monocytes Absolute Auto 0.8 10^3/uL (0.3-0.8); Neutrophils Absolute Auto 6.3 10^3/uL (1.4-6.5); Neutrophils Percent Auto 56.6 % (43.0-75.0); Platelet Count 323 10^3/uL (150-450); Red Blood Count 3.62 10^6/uL (4.20-5.40); Red Cell Distribution Width 13.1 % (11.0-15.0); White Blood Count 11.1 10^3/uL (4.0-11.0)
[2024-05-31 06:26] LABS: Anion Gap 8.2; BUN Creatinine Ratio 15.1; Calcium 8.4 mg/dL (8.5-10.1); Carbon Dioxide 29.7 mmol/L (21.0-32.0); Chloride 104 mmol/L (98-107); Estimated GFR (African America >60 (>=60); Estimated GFR (Non-African Ame >60 (>=60); Glucose 146 mg/dL (74-106); Magnesium 2.2 mg/dL (1.8-2.4); Sodium 139 mmol/L (136-145)
[2024-05-31 06:29] LABS: Potassium 2.9 mmol/L (3.5-5.1)
[2024-05-31 06:38] LABS: Troponin I High Sensitivity 5.5 pg/mL (4.0-51.3)
[2024-05-31] MEDS: ATORVASTATIN CALCIUM 10 MG TABLET PO (08:59)
[2024-05-31] MEDS: ENOXAPARIN SODIUM 40 MG/0.4 ML SYRINGE SUBQ (10:09)
[2024-05-31] MEDS: POTASSIUM CHLORIDE 10 MEQ ER TABLET 40 MEQ PO ×2 (10:09→15:08)
[2024-05-31] MEDS: POTASSIUM CHLORIDE 40 MEQ in 0.9 % SODIUM CHLORIDE 250 ML 67.5 MEQ IV (10:21)
[2024-05-31 13:38] LABS: Anion Gap 5.8; BUN Creatinine Ratio 13.4; Calcium 8.2 mg/dL (8.5-10.1); Carbon Dioxide 32.3 mmol/L (21.0-32.0); Chloride 106 mmol/L (98-107); Estimated GFR (African America >60 (>=60); Estimated GFR (Non-African Ame >60 (>=60); Glucose 143 mg/dL (74-106); Potassium 3.1 mmol/L (3.5-5.1); Sodium 141 mmol/L (136-145)
--- NOTE | 2024-05-31 15:03 | PM.HP ---
HPI H&P: HPI History of Present Illness Chief complaint: hypokalemia Narrative: HPI and Hospital Course: 48-year-old female was found to have hypokalemia on routine labs and was instructed to go to ER for IV potassium. Patient reports history of chronic hypokalemia and that she was recently started on oral torsemide for chronic lower extremity edema. Patient's potassium was 2.7 on initial labs. He did not have any EKG changes but reported tingling sensation in her hands and feet. She was treated with IV potassium along with p.o. potassium with improvement in her serum potassium level. On review of her medications, it seems like she is on hydrochlorothiazide and torsemide. It was recommended to patient that she stopped using hydrochlorothiazide and only uses torsemide as needed. Her oral potassium was also increased to twice a day. It was also suggested to her that she needs further workup to ascertain the underlying etiology for her chronic lower extremity edema. At the time of discharge, patient has no active symptoms to offer and she was at her baseline physical health. Patient instructed to follow-up with PCP in 1 week Opioid HPI Opioid Management Most Recent Pain and Opioid Data: Last Pain Scale 0 05/31/24 10:10 Last Pain Assessment 05/31/24 13:23 Last ORT Total Score 0 05/30/24 23:48 Last ORT Risk Category Low Risk 05/30/24 23:48 Review of Systems ROS Status of ROS 10 or more systems reviewed and unremarkable except as noted in history and below [facility] Medical History (Updated 05/31/24 @ 15:04 by Shaikh Cheikh MD) Morbid obesity ?E66.01 - Morbid (severe) obesity due to excess calories (ICD-10) HLD (hyperlipidemia) ?E78.5 - Hyperlipidemia, unspecified (ICD-10) ADHD ?F90.9 - Attention-deficit hyperactivity disorder, unspecified type (ICD-10) ROBYN (obstructive sleep apnea) ?G47.33 - Obstructive sleep apnea (adult) (pediatric) (ICD-10) HTN (hypertension) ?I10 - Essential (primary) hypertension (ICD-10) Peripheral edema ?R60.0 - Localized edema (ICD-10) Colonoscopy planned H/O acute cholecystitis ?Z87.19 - Personal history of other diseases of the digestive system (ICD-10) Cholecystectomy planned High blood cholesterol ?E78.00 - Pure hypercholesterolemia, unspecified (ICD-10) Asthma ?J45.909 - Unspecified asthma, uncomplicated (ICD-10) Abdominal pain ?R10.9 - Unspecified abdominal pain (ICD-10) Numbness and tingling ?R20.0 - Anesthesia of skin (ICD-10) ?R20.2 - Paresthesia of skin (ICD-10) Hypokalemia ?E87.6 - Hypokalemia (ICD-10) Surgical History (Updated 05/30/24 @ 23:42 by Dilshad Jc) History of orthopedic surgery ?Z98.890 - Other specified postprocedural states (ICD-10) Family History (Updated 05/30/24 @ 23:44 by Dilshad Jc) Mother Family history of myocardial infarction Family history of cancer Father Family history of myocardial infarction Social History (Updated 05/30/24 @ 23:45 by Dilshad Jc) Within the past year, how often did you have a drink containing alcohol: never Score interpretation: A score less than 3 is consistent with normal alcohol consumption. Smoking 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 smoker Non-prescribed substance use: denies use Highest level of school completed/degree received: high school graduate Little interest or pleasure in doing things: not at all Feeling down, depressed, or hopeless: not at all Meds Home Medications and Allergies Home Medications ?Medication ?Instructions ?Recorded ?Confirmed ?Type atorvastatin 10 mg tablet 10 mg PO DAILY 05/03/23 05/30/24 History citalopram 40 mg tablet 20 mg PO .qhs 05/03/23 05/31/24 History dextroamphetamine-amphetamine 20 20 mg PO DAILY 05/03/23 05/30/24 History mg tablet diltiazem HCl 120 mg 120 mg PO .qhs 05/03/23 05/31/24 History capsule,extended release 24 hr omeprazole 40 mg capsule,delayed 40 mg PO BID 05/03/23 05/30/24 History release solriamfetol 150 mg tablet (Sunosi) 150 mg PO DAILY 05/03/23 05/30/24 History valacyclovir 500 mg tablet 500 mg PO DAILY 05/03/23 05/30/24 History eletriptan 40 mg tablet 40 mg PO Q2H PRN headache 05/30/24 05/31/24 History fluticasone 500 mcg-salmeterol 50 1 inh inhalation BID 05/30/24 05/31/24 History mcg/dose blistr powdr for inhalation fluticasone propionate 50 1 spray intranasal DAILY 05/30/24 05/31/24 History mcg/actuation nasal spray,suspension potassium chloride 20 mEq 20 meq PO BID #60 tabs 05/31/24 Rx tablet,extended release torsemide 10 mg tablet 10 mg PO QDAY PRN Lower Leg edema 05/31/24 05/30/24 Rx #0 tabs Allergies Allergy/AdvReac Type Severity Reaction Status Date / Time sulfamethoxazole Allergy unknown Verified 05/30/24 20:28 [From Bactrim] trimethoprim [From Bactrim] Allergy unknown Verified 05/30/24 20:28 Sulfa (Sulfonamide AdvReac Mild Unknown Verified 05/30/24 20:28 Antibiotics) Exam Constitutional Vital Signs, click to edit/add: Last Vital Signs Temp 98.4 F 05/31/24 11:58 Pulse 93 H 05/31/24 14:00 Resp 16 05/31/24 11:58 BP 118/68 05/31/24 11:58 Pulse Ox 93 L 05/31/24 12:59 O2 Del Method Room Air 05/31/24 12:59 Documenting provider has reviewed patient's vital signs: yes Common normals: no apparent distress and oriented x3 General appearance: cooperative HENMT Common normals: normocephalic and head/scalp atraumatic Head and scalp: normocephalic and atraumatic Eye Common normals: conjunctivae normal and no scleral icterus Conjunctiva: conjunctiva(e) normal Respiratory Common normals: normal respiratory effort and clear to auscultation bilaterally Effort & inspection: able to speak in complete sentences Auscultation: clear to auscultation bilaterally Cardio Common normals: regular rate, S1 normal heart sound and S2 normal heart sound Rate: regular rate Heart sounds: S1 normal and S2 normal GI Common normals: Normal to inspection, nondistended, normoactive bowel sounds present, soft to palpation, non-tender and no hepatosplenomegaly Palpation: soft and no hepatosplenomegaly Extremity Common normals: no clubbing, cyanosis or edema Neuro Common normals: oriented x3, moves all extremities and no focal motor deficits Psych Common normals: mental status grossly normal, denies hallucinations, denies homicidal ideation and denies suicidal ideation Results Labs Labs: Short CBC 05/31/24 Range/Units 05:34 WBC 11.1 H (4.0-11.0) 10^3/uL Hgb 12.0 (12.0-16.0) g/dL Hct 35.3 L (36.0-48.0) % Plt Count 323 (150-450) 10^3/uL BMP 05/30/24 05/31/24 05/31/24 20:30 00:28 05:34 Sodium 140 140 139 Potassium 2.7 L* 3.0 L 2.9 L* Chloride 101 103 104 Carbon Dioxide 34.6 H 30.9 29.7 BUN 14.0 15.0 14.0 Creatinine 1.00 0.87 0.93 Glucose 157 H 149 H 146 H Calcium 8.4 L 8.3 L 8.4 L 05/31/24 14:21 Sodium 141 Potassium 3.1 L Chloride 106 Carbon Dioxide 32.3 H BUN 13.0 Creatinine 0.97 Glucose 143 H Calcium 8.2 L Liver Function 05/31/24 Range/Units 00:28 Total Bilirubin 0.4 (0.2-1.0) mg/dL AST 22 (15-37) U/L ALT 58 (14-59) U/L Alkaline Phosphatase 54 (46-116) U/L Albumin 3.1 L (3.4-5.0) g/dL Assessment and Plan Assessment and Plan (1) Hypokalemia: Assessment and Plan: Likely due to diuretic use. Improved with IV/oral potassium. Increase oral potassium to 20 every 12. He was previously on 10 mEq once daily. Hold hydrochlorothiazide upon discharge. Use torsemide only as needed. (2) Peripheral edema: Assessment and Plan: Chronic, unexplained etiology. She currently does not have any lower extremity edema. Discussed with patient that she needs further workup to ascertain the underlying etiology for her lower extremity edema. Patient will discuss this with her primary care provider (3) HTN (hypertension): Assessment and Plan: Blood pressure is at goal. Continue with Cardizem. Discontinue hydrochlorothiazide due to hypokalemia Qualifiers: Hypertension type: primary hypertension Qualified Code(s): I10 - Essential (primary) hypertension (4) ROBYN (obstructive sleep apnea): Assessment and Plan: Patient is compliant with CPAP. Continue with same. (5) Asthma: Assessment and Plan: No active wheezing. Continue with home inhalers. Qualifiers: Asthma complication type: uncomplicated Asthma persistence: persistent Asthma severity: moderate Qualified Code(s): J45.40 - Moderate persistent asthma, uncomplicated (6) ADHD: Assessment and Plan: Mood is stable. Continue with Adderall. 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 Qualifiers: Hyperlipidemia type: unspecified Qualified Code(s): E78.5 - Hyperlipidemia, unspecified (8) Morbid obesity: Assessment and Plan: Given her history of high blood pressure, hyperlipidemia, obstructive sleep apnea and chronic lower extremity edema, she will benefit a lot from weight loss. She is a candidate for bariatric surgery because of her BMI. Will defer this to her primary care physician.
--- NOTE | 2024-06-02 16:19 | CM.DCFOLLOWU ---
Person spoke with:patient How are you feeling?well How is your pain?none Did you understand your discharge instructions?yes Do you have any questions about your discharge instructions?no Were you given any prescriptions at discharge?yes Were you able to get your prescriptions filled?yes Do you understand how to take your medications as ordered?yes Do you have any questions about your follow up appointment and do you plan to keep your follow up appointment?no questions, has follow up tomorrow Is there anything else that you would like to discuss?no Questions/Comments/Concerns/Other:none
== END 2024-05-31 15:30 | disposition home or self-care (01) ==
LOC: ER 22:32 → MS 23:40
PROVIDERS: Registered Nurse; Admitting Provider Internal Medicine; Emergency Provider Student in an Organized Health Care Education/Training Program; PCP Internal Medicine; Visit Provider Internal Medicine
DX: E87.6 Hypokalemia (principal); R60.9 Edema, unspecified; I10 Essential (primary) hypertension; G47.33 Obstructive sleep apnea (adult) (pediatric); F90.2 Attention-deficit hyperactivity disorder, combined type; J45.40 Moderate persistent asthma, uncomplicated; E78.5 Hyperlipidemia, unspecified; E66.01 Morbid (severe) obesity due to excess calories; Z79.899 Other long term (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 therapy; Z68.37 Body mass index [BMI] 37.0-37.9, adult
CPT/HCPCS: 36415; 71045; 80048; 80053; 83735; 83880; 84484; 85025; 93005; 94761; 96365; 96366; 96367; 96368; 96372; 99285; G0378; J1650; J3475; J3480

== ENCOUNTER 2024-06-22 13:41 | Emergency (ER) | payer BC, SELFPAY ==
[2024-06-22 13:45] VITALS: BP 138/89; PULSE 96; TEMP 36.9; O2SAT 98; BMI 37.1
[2024-06-22] MEDS: OXYCODONE HCL/ACETAMINOPHEN 5MG/325MG 1 TAB PO ×2 (14:07→15:50)
[2024-06-22] MEDS: ORPHENADRINE 60 MG/ 2 ML VIAL IM (14:08)
[2024-06-22] MEDS: KETOROLAC TROMETHAMINE 60 MG/2 ML VIAL IM (14:08)
--- NOTE | 2024-06-22 14:08 | ED.BACK1 ---
HPI HPI - Back Pain/Injury General Chief Complaint: Back Pain/Injury Stated Complaint: LOWER BACK/ LOWER EXTTEMITY PAIN Time Seen by Provider: 06/22/24 13:54 Source: patient Mode of arrival: Wheelchair History of Present Illness HPI Narrative: Patient is a 49-year-old female who presents to the emergency department for history of pain in the right low back above the right hip radiating into the right leg. She denies any mechanism of injury or trauma. She has no peripheral paresthesias or urinary symptoms. She has no concern for at this time. No fevers, vomiting or upper respiratory symptoms. No flank pain or abdominal pain. She denies the symptoms previously. She states she has been using her stitch cleaner but has had this for some time and has not had any activity out of her norm. Related Data Home Medications ?Medication ?Instructions ?Recorded ?Confirmed atorvastatin 10 mg tablet 10 mg PO DAILY 05/03/23 05/30/24 citalopram 40 mg tablet 20 mg PO .qhs 05/03/23 05/31/24 dextroamphetamine-amphetamine 20 20 mg PO DAILY 05/03/23 05/30/24 mg tablet diltiazem HCl 120 mg 120 mg PO .qhs 05/03/23 05/31/24 capsule,extended release 24 hr omeprazole 40 mg capsule,delayed 40 mg PO BID 05/03/23 05/30/24 release solriamfetol 150 mg tablet (Sunosi) 150 mg PO DAILY 05/03/23 05/30/24 valacyclovir 500 mg tablet 500 mg PO DAILY 05/03/23 05/30/24 eletriptan 40 mg tablet 40 mg PO Q2H PRN headache 05/30/24 05/31/24 fluticasone 500 mcg-salmeterol 50 1 inh inhalation BID 05/30/24 05/31/24 mcg/dose blistr powdr for inhalation fluticasone propionate 50 1 spray intranasal DAILY 05/30/24 05/31/24 mcg/actuation nasal spray,suspension Previous Rx's ?Medication ?Instructions ?Recorded potassium chloride 20 mEq 20 meq PO BID #60 tabs 05/31/24 tablet,extended release torsemide 10 mg tablet 10 mg PO QDAY PRN Lower Leg edema 05/31/24 #0 tabs methocarbamol 750 mg tablet 750 mg PO TID PRN pain #20 tabs 10/21/24 methylprednisolone 4 mg tablets in See Rx Instructions .Route 06/22/24 a dose pack (Medrol (Tomer)) .COMPLEX #21 ea oxycodone-acetaminophen 5 mg-325 1 tab PO Q6H PRN pain 3 days #12 06/22/24 mg tablet (Percocet) tabs Allergies Allergy/AdvReac Type Severity Reaction Status Date / Time sulfamethoxazole (From Allergy unknown Verified 05/30/24 20:28 Bactrim) trimethoprim (From Bactrim) Allergy unknown Verified 05/30/24 20:28 Sulfa (Sulfonamide AdvReac Mild Unknown Verified 05/30/24 20:28 Antibiotics) Opioid HPI Opioid Management Most Recent Opioid Data: Last Pain Scale 8 06/22/24 13:53 06/22/24 Last ORT Total Score 0 05/30/24 23:48 05/30/24 Last ORT Risk Category Low Risk 05/30/24 23:48 05/30/24 Review of Systems ROS Constitutional Denies: fever or chills Ears, nose, mouth, and throat Denies: throat pain Respiratory Denies: shortness of breath Gastrointestinal Denies: abdominal pain, nausea or vomiting Genitourinary Denies: painful urination, urinary incontinence or pelvic pain Musculoskeletal Reports: back pain and extremity pain; Denies: neck pain or extremity swelling Integumentary/Breast Denies: rash Neurological Denies: numbness in extremities or weakness in extremities Hematologic/Lymphatic Denies: easy bruising or easy bleeding PFSH [facility] Medical History (Updated 06/22/24 @ 15:38 by LISHA Yepez) Morbid obesity ?E66.01 - Morbid (severe) obesity due to excess calories (ICD-10) HLD (hyperlipidemia) ?E78.5 - Hyperlipidemia, unspecified (ICD-10) ADHD ?F90.9 - Attention-deficit hyperactivity disorder, unspecified type (ICD-10) ROBYN (obstructive sleep apnea) ?G47.33 - Obstructive sleep apnea (adult) (pediatric) (ICD-10) HTN (hypertension) ?I10 - Essential (primary) hypertension (ICD-10) Peripheral edema ?R60.0 - Localized edema (ICD-10) Colonoscopy planned H/O acute cholecystitis ?Z87.19 - Personal history of other diseases of the digestive system (ICD-10) Cholecystectomy planned High blood cholesterol ?E78.00 - Pure hypercholesterolemia, unspecified (ICD-10) Asthma ?J45.909 - Unspecified asthma, uncomplicated (ICD-10) Abdominal pain ?R10.9 - Unspecified abdominal pain (ICD-10) Numbness and tingling ?R20.0 - Anesthesia of skin (ICD-10) ?R20.2 - Paresthesia of skin (ICD-10) Hypokalemia ?E87.6 - Hypokalemia (ICD-10) Surgical History (Updated 05/30/24 @ 23:42 by Dilshad Jc) History of orthopedic surgery ?Z98.890 - Other specified postprocedural states (ICD-10) Family History (Updated 05/30/24 @ 23:44 by Dilshad Jc) Mother Family history of myocardial infarction Family history of cancer Father Family history of myocardial infarction Social History Within the past year, how often did you have a drink containing alcohol: never Score interpretation: A score less than 3 is consistent with normal alcohol consumption. Smoking 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 smoker Non-prescribed substance use: denies use Highest level of school completed/degree received: high school graduate Little interest or pleasure in doing things: not at all Feeling down, depressed, or hopeless: not at all Exam Narrative Exam Narrative: Gen.: Awake, alert, in no distress Head: Normocephalic, atraumatic ENT: Moist mucous membranes Respiratory: No respiratory distress Gastrointestinal: Abdomen is soft, nondistended and nontender to palpation Extremities: Moves extremities equally, normal dorsiflexion and plantarflexion of the lower extremities with no decrease in sensation to the medial thighs. Normal hip flexion bilaterally No bony point tenderness of the T-spine or L-spine with diffuse tenderness of the right posterior hip. No obvious deformity or step-off Psych: Normal mood and affect Neuro: No focal neuro deficit Skin: Warm, dry, intact Constitutional Vital Signs, click to edit/add: Last Vital Signs Temp 98.4 F 06/22/24 13:45 Pulse 88 06/22/24 15:54 Resp 18 06/22/24 15:54 BP 132/86 06/22/24 15:54 Pulse Ox 98 06/22/24 15:54 O2 Del Method Room Air 06/22/24 13:45 Course Vital Signs Vital signs: Vital Signs Temperature 98.4 F 06/22/24 13:45 Pulse Rate 96 H 06/22/24 13:45 Respiratory Rate 16 06/22/24 13:45 Blood Pressure 138/89 06/22/24 13:45 Pulse Oximetry 98 06/22/24 13:45 Oxygen Delivery Method Room Air 06/22/24 13:45 Temperature 98.4 F 06/22/24 13:45 Pulse Rate 88 06/22/24 15:54 Respiratory Rate 18 06/22/24 15:54 Blood Pressure 132/86 06/22/24 15:54 Pulse Oximetry 98 06/22/24 15:54 Oxygen Delivery Method Room Air 06/22/24 13:45 MDM - Back Pain/Injury MDM Narrative Medical decision making narrative: Discussed obtaining a test prior to medications and images, patient declines this and has no concern for . Patient medicated for pain, history and physical are consistent with right-sided sciatica. CT of the lumbar spine shows herniated disc with foraminal stenosis at L1/L2. Patient was referred to Dr. Saint Del Castillo for spinal surgery and she was given a short course of analgesics, muscle relaxants and NSAIDs for home. Rest, ice, gentle stretching. Patient with a normal neuroexam, no focal neuro deficit at discharge. follow-up with spinal surgery and return to the ER if symptoms change or worsen SUPERVISED APC VISIT, PHYSICIAN ATTESTATION: Based on the medical record the care appears appropriate. ? Medical Records Attestation: I reviewed the patient's medical records. Lab Data Attestation: I reviewed the patient's lab results. Labs: Lab Results 06/22/24 Range/Units 14:47 Urine Color Lt. yellow (YELLOW) Urine Clarity Clear (CLEAR) Urine pH 5.5 (5.0-9.0) Ur Specific [place] 1.010 (1.005-1.025) Urine Protein Negative (NEG/TRACE) mg/dL Urine Glucose (UA) Negative (NEGATIVE) mg/dL Urine Ketones Negative (NEGATIVE) mg/dL Urine Occult Blood Negative (NEGATIVE) Urine Nitrite Negative (NEGATIVE) Urine Bilirubin Negative (NEGATIVE) Urine Urobilinogen 0.2 (0.2-1.0) EU/dL Ur Leukocyte Esterase Negative (NEGATIVE) Imaging Data CT spine: Attestation: I have reviewed the pertinent imaging results. Radiologist's impression: ITS Impressions Lumbar Spine CT 06/22/24 14:58 IMPRESSION: Degenerative changes with disc herniation and suspected right foraminal stenosis at L1-L2. Consider nonemergent MRI follow-up for further characterization Electronically authenticated by: JANE NICOLAS Date: 06/22/2024 15:16 Discharge Plan Discharge Chief Complaint: Back Pain/Injury Clinical Impression: Acute right-sided back pain with sciatica Patient Disposition: Home, Self-Care Time of Disposition Decision: 15:38 Condition: Good Prescriptions / Home Meds: New oxycodone-acetaminophen [Percocet] 5-325 mg tablet 1 tab PO Q6H PRN (Reason: pain) 3 Days Qty: 12 0RF Rx Instructions: DX: M54.5 methocarbamol 750 mg tablet 750 mg PO TID PRN (Reason: pain) Qty: 20 0RF methylprednisolone [Medrol (Tomer)] 4 mg tablets,dose pack See Rx Instructions .ROUTE .COMPLEX Qty: 21 0RF Rx Instructions: Taper as directed No Action atorvastatin 10 mg tablet 10 mg PO DAILY citalopram 40 mg tablet 20 mg PO .qhs dextroamphetamine-amphetamine 20 mg tablet 20 mg PO DAILY diltiazem HCl 120 mg capsule,extended release 24hr 120 mg PO .qhs omeprazole 40 mg capsule,delayed release(DR/EC) 40 mg PO BID Sunosi 150 mg tablet 150 mg PO DAILY valacyclovir 500 mg tablet 500 mg PO DAILY fluticasone propion-salmeterol 500-50 mcg/dose blister with device 1 inh INHALATION BID fluticasone propionate 50 mcg/actuation spray,suspension 1 spray INTRANASAL DAILY eletriptan 40 mg tablet 40 mg PO Q2H PRN (Reason: headache) potassium chloride 20 mEq tablet extended release 20 meq PO BID Qty: 60 0RF torsemide 10 mg tablet 10 mg PO QDAY PRN (Reason: Lower Leg edema) Qty: 0 0RF Print Language: Niuean Instructions: Lumbar Disc Herniation (ED), Sciatica (ED), Acute Low Back Pain (ED) Referrals: DOMITILA HUYNH [Primary Care Provider] - 1 week Gonsalo Garces MD [Physician] - As needed Discharge Date/Time: 06/22/24 15:55
--- OUTSIDE RECORDS SUMMARY | 2024-06-22 14:08 | XMS_ITS | CCD ---
Author Organization [facility] Care Team Providers Care [facility] Workers Supervisor Name Role Phone UNKNOWN, PROVIDER Unavailable Unavailable ELVER MENDENHALL Unavailable Unavailable ELVER MENDENHALL Primary Care Unavailable NAOMI MOROCHO Admitting Unavailable BAILEE, NAOMI Vasques Attending Unavailable JANE NICOLAS V Consulting Unavailable BAILEE, NAOMI Vasques Consulting Unavailable NICHOLAS BOLTON Consulting Unavailable ELVER MENDENHALL Primary Care Unavailable NICHLOAS BOLTON Admitting Unavailable NICHOLAS BOLTON Attending Unavailable YAJOHN JALLOH Consulting Unavailable NICHOLAS BOLTON Consulting Unavailable HEMGITA ESCOBAR Admitting Unavailable HEMMER, GITA Segura Attending Unavailable ELVER MENDENHALL Primary Care Unavailable HEMGITA ESCOBAR Consulting Unavailable ELVER MENDENHALL Primary Care Unavailable LESLYE DOSS Consulting Unavailable LESLYE DOSS Admitting Unavailable PURA, LESLYE Warner Attending Unavailable EBEN PROCTOR Consulting Unavailable LUBNA MANZANARES Consulting Unavailable ELVER MENDENHALL Primary Care Unavailable LESLYE DOSS Referring Unavailable EBRAIAN LLANES Attending Unavailable EBRAHEIM, IAN Admitting Unavailable MA Procedure Practitioner Unavailab IAN [place] Surgeon Unavailable Jane Waller Unavailable Ciera Mcwilliams Unavailable Tracy Olivre Unavailable OSCAR Mendenhall Primary Care Provider [phone] MD Jane Waller. Attending Provider [phone] OSCAR Mendenhall Primary Care Provider [phone] MD Jane Wlaler Attending Provider [phone] Efraín Patel Unavailable OSCAR Mendenhall Primary Care Provider MD Jane Waller. Attending Provider Elver Mendenhall MD Primary Care Provider OSCAR Mendenhall Primary Care Provider MD Jane Waller Attending Provider Jane Waller Admitting Unavailable Jane Waller Attending Unavailable Jane Waller Admitting Unavailable Jane Waller Attending Unavailable Elver Mendenhall Primary Care Unavailable Jane Waller Admitting Unavailable Jane Waller Attending Unavailable Elver Mendenhall Primary Care Unavailable GITA GARCIA Attending Unavailable LUBNA LAWRENCE Attending Unavailable GITA GARCIA Attending Unavailable SEB KITCHEN Attending Unavailable SEB KITCHEN Referring Unavailable GITA GARCIA Attending Unavailable TREVER WARNER Attending Unavailable TREVER WARNER Attending Unavailable GITA GARCIA Attending Unavailable Allergies Allergy Classification Reported Allergen(s) Allergy Type Date of Onset Reaction(s) Facility (2 sources) Morphine Drug Allergy 9 [facility] Repository (1 source) Sulfamethoxazole / Trimethoprim Drug Allergy 6 [facility] Repository (1 source) Sulfonamides (Antibiotic) Drug allergy (disorder) 9 [facility] Repository (19 sources) Clarithromycin; Translations: [clarithromycin] Drug Allergy 1 GI intolerance [facility] (11 sources) Sulfanilamide; Translations: [sulfanilamide] Drug Allergy 1 Unknown Reaction, Anaphylaxis [facility] (8 sources) Sulfonamides (Antibiotic) Drug Allergy 3 Unknown [...] Twice a day for 90 day(s) Active [id number] actuat albuterol 0.09 mg/actuat metered dose inhaler (20 sources) beta2-Adrenergic Agonist Start: 11-18-2020 take 1 puff(s) by inhalation every four to six hours Albuterol Sulfate (Proair Hfa) 90 mcg/actuation Hfa Aerosol Inhaler Active 2 PUFF INHALATION EVERY 4-6 HOURS November 18, 2020 12:00am albuterol HFA 90 mcg/act inhaler Active take 2 puff(s) by in halation every [...] (20 sources) Central Nervous System Stimulant Start: 06-01-2021 take 1 capsule by mouth every twenty-four hours Adderall XR 20 MG 1 capsule in the morning Orally Once a day for 90 days Narcolepsy do not fill until 02/25/23 Jun, Active Start: 03-13-2021 End: 01-30-2024 take 1 tablet by mouth twice daily Dextroamphetamine-Amphetamine (Adderall) 20 mg Tablet Discontinued 20 MG PO Twice daily March 13, 2021 12:00am January 30, 2024 9:53am Start: 12-20-2020 End: 02-04-2024 take 1 tablet by mouth once daily Dextroamphetamine-Amphetamine (Adderall) 20 mg tablet Active 20 MG PO Daily 90 90 February 04, 2024 atorvastatin 10 mg oral tablet (20 sources) HMG-CoA Reductase Inhibitor Start: 11-18-2020 take 1 tablet by mouth once daily in the morning atorvastatin (Lipitor) 10 MG tablet Indications: Mixed hyperlipidemia (CMS/HCC) TAKE 1 TABLET BY MOUTH EVERY DAY IN THE MORNING 90 tablet 2 03/16/2024 Active BIPAP Machine (20 sources) BIPAP Machine Ac tive cetirizine hydrochloride 10 mg oral tablet (20 sources) Histamine-1 Receptor Antagonist Start: 11-18-2020 take 10 mg by mouth once daily Cetirizine Active 10 MG PO Daily November 18, 2020 12:00am take 1 capsule by [facility] every twenty-four hours ZyrTEC Allergy 10 MG 1 tab(s) Orally Daily Active cholecalciferol 0.05 mg oral capsule (8 sources) Vitamin D cholecalciferol (Vitamin D-3) 50 MCG (1999) capsule Active citalopram 40 mg oral tablet (20 sources) Serotonin Reuptake Inhibitor Start: 03-30-20 take 0.5 tablet by mouth once daily citalopram (CeleXA) 40 MG tablet Indications: Obsessive-compulsive disorder, unspecified type (CMS/HCC) Take 0.5 tablets (20 mg) by mouth Daily 45 tablet 3 03/30/2024 Active Start: 02-20-2023 take 0.5 tablet by m outh in the morning citalopram (CeleXA) 40 MG tablet Indications: Obsessive-compulsive disorder, unspecified type (CMS/HCC) Take 0.5 tablets (20 mg) by mouth in the morning. 45 tablet 3 02/20/2023 Active Start: 11-18-2020 End: 01-30-2024 take 0.5 tablet by mouth once daily Citalopram Active 20 MG PO As Directed January 30, 2024 9:52am 1/2 tablet orally once a day take 1 tablet by willow every twenty-four hours CeleXA 20 MG 1 tablet Orally Daily Active 24 hr dilTIAZem hydrochloride 120 mg extended release oral capsule (20 sources) Calcium Channel Konstantin Start: 04-13-2024 take 1 capsule by mouth every twenty-four hours in the morning dilTIAZem CD (Cardizem CD) 120 MG 24 hr capsule Indications: Tachycardia TAKE 1 CAPSULE (120 MG) BY MOUTH IN THE MORNING 100 capsule 3 04/13/2024 Active Start: 02-28-2023 take 1 capsule by mo [facility] every twenty-four hours in the morning dilTIAZem [...] Aug, Active eletriptan 40 mg oral tablet (18 sources) Serotonin-1b and Serotonin-1d Receptor Agonist Start: 11-18-2020 take 1 tablet by mouth every two hours, then take 2 tablets by mouth every twenty-four hours eletriptan (Relpax) 40 MG tablet Indications: Other migraine without status migrainosus, intractable (CMS/HCC) TAKE 1 TABLET BY MOUTH, REPEAT IN 2 HOURS IF HEADACHE RETURNS,*NO MORE THAN 2 DOSES IN 24 HOURS 12 tablet 12 08/09/2023 Active fluconazole 150 mg oral tablet (12 sources) [...] 2 SPRAYS IN EACH NOSTRIL ONCE DAILY 10/28/2022 Active Start: 11-18-2020 Fluticasone Pr opionate (Flonase) 50 mcg/actuation [place],Suspension Active 1 SPRAY INTRANASAL Daily November 18, [...] LUNGS TWICE A DAY FOR 30 DAYS 03/13/2023 Active Start: 11-18-2020 Fluticasone Pr opion-Salmeterol (Advair Diskus) 500-50 mcg/dose blister with device Active 1 EACH INHALATION Twice daily November 17, 2020 11:00pm Start: 11-18-2020 Fluticasone Pr opion-Salmeterol (Advair Diskus) 500-50 mcg/dose blister with device Active 1 EACH INHALATION Twice daily November 18, 2020 12:00am minocycline 100 mg oral capsule (8 sources) Tetracycline-class Drug Start: 09-17-2023 take 1 capsule by mouth twice daily minocycline 100 MG capsule Indications: Perioral dermatitis Take 1 capsule, by mouth, bid, 30 days 60 capsule 09/17/2023 Active omeprazole 40 mg delayed release [...] MG PO Daily November 18, 2020 12:00am potassium chloride 10 meq extended release oral tablet (12 sources) Start: 06-03-2024 take 2 tablets by mouth in the morning potassium chloride CR (Klor-Con) 10 MEQ ER tablet Indications: Hypokalemia Take 2 tablets (20 mEq) by mouth in the morning and 2 tablets (20 mEq) before bedtime. 06/03/2024 Active Start: 05-31-2024 End: 06-03-2024 take 1 tablet by mouth in the morning potassium chloride CR (K-Tab) 20 MEQ ER tablet Take 20 mEq by mouth in the morning and 20 mEq before bedtime. 05/31/2024 06/03/2024 Discontinued (Other) Start: 02-03-2024 End: 06-03-2024 take 1 tablet by mouth in the morning potassium chloride CR (KLOR-CON) 10 MEQ ER tablet Indications: Hypokalemia Take 1 tablet (10 mEq) by mouth in the morning and 1 tablet (10 mEq) before bedtime. 200 tablet 3 02/03/2024 06/03/2024 Discontinued (Dose adjustment) Start: 09-24-2022 KLOR-CON 10 ME Q ER tablet 1 (one) time each day at the same time. 0 09/24/2022 Active ProAir HFA 108 (90 Base) MCG/ACT (12 sources) take 2 puff(s) by inhalation every four hours as needed ProAir HFA 108 (90 Base) MCG/ACT 2 puffs as needed Inhalation every 4 hrs for 30 days Active solriamfetol 150 mg oral tablet (20 sources) Start: 02-06-2023 Sunosi 150 MG tablet 03/11/2023 Active Start: 02-06-2023 take 1 tablet by willow th every twenty-four hours Sunosi 75 MG 1 [...] MG PO Daily December 25, 2023 12:00am torsemide 10 mg oral tablet (3 sources) Loop Diuretic Start: 05-13-2024 take 1 tablet by mouth once daily torsemide (Demadex) 10 MG tablet Indications: Ankle edema TAKE 1 TABLET (10 MG) BY MOUTH DAILY. 90 tablet 1 06/04/2024 Active valACYclovir 500 mg oral tablet (20 sources) Herpesvirus Nucleoside Analog DNA Polymerase Inhibitor, Herpes Simplex Virus Nucleoside Analog DNA Polymerase Inhibitor, Herpes Zoster Virus Nucleoside Analog DNA Polymerase Inhibitor Start: 03-21-2024 take 1 tablet by mouth once daily valACYclovir (Valtrex) 500 MG tablet Take 500 mg by mouth Daily 03/21/2024 Active Start: 11-18-2020 End: 12-25-2023 take 1 tablet [...] 1 tablet Orally every 24 hrs Active Completed/Discontinued Medications Medication Drug Class(es) Dates Sig (Normalized) Sig (Original) cefTRIAXone (18 sources) Cephalosporin Antibacterial Start: 03-10-2016 Rocephin 500 mg Mar, 500 mg clindamycin 300 mg oral capsule (12 sources) Lincosamide Antibacterial Start: 12-25-2023 End: 01-09-2024 take 300 mg by mouth three times daily Clindamycin Hcl Discontinued 300 MG PO Three times daily 30 December 25, 2023 12:00am January 09, 2024 3:18pm Start: 04-29-2023 End: 06-03-2024 clindamycin (Clindagel) 1 % gel Indications: Perioral dermatitis Apply to face BID 60 g 1 04/29/2023 06/03/2024 Discontinued (Other) cyclobenzaprine hydrochloride 5 mg oral tablet (10 sources) Muscle Relaxant Start: 11-18-2020 End: 01-30-2024 Cyclobenzaprine Discontinued 5 MG PO As Directed November 18, 2020 12:00am January 30, 2024 9:52am hydroCHLOROthiazide 25 mg oral tablet (20 sources) Thiazide Diuretic Start: 11-18-2020 End: 06-03-2024 take 1 tablet by mouth in the morning hydroCHLOROthiazide (HYDRODiuril) 25 MG tablet Indications: Ankle edema Take 1 tablet (25 mg) by mouth in the morning. 100 tablet 3 10/04/2023 06/03/2024 Discontinued (Side effects) methylPREDNISolone (12 sources) Corticosteroid Start: 06-03-2024 End: 06-13-2024 methylPREDNISolone (Medrol Dospak) 4 MG tablets Indications: Peroneal tendinitis of left lower extremity , Peroneal tendinitis of right lower extremity Follow schedule on package instructions 21 tablet 06/03/2024 06/13/2024 Discontinued (Therapy completed) Start: 06-03-2024 methylPREDNISo lone (Medrol Dospak) 4 MG tablets Indications: Peroneal tendinitis of left lower extremity , Peroneal tendinitis of right lower extremity Follow schedule on package instructions 21 tablet 06/03/2024 Active Start: 05-14-2024 End: 06-03-2024 methylPREDNISolone (Medrol D ospak) 4 MG tablets Indications: Peroneal tendinitis, left Follow schedule on MEDROL PACK package instructions to be used as directed 21 tablet 05/14/2024 06/03/2024 Discontinued (Other) Start: 08-19-2021 methylPREDNISo lone 4 MG as directed Orally Once a day for 6 days Aug, Active modafinil 200 mg oral tablet (10 sources) Sympathomimetic-like Agent Start: 11-18-2020 End: 03-13-2021 take 200 [...] 18, 2020 12:00am December 25, 2023 5:18pm Problems Active Problems Problem Classification Problem Date Documented Date Episodic/Chronic Abdominal pain (7 sources) Abdominal pain; Translations: [Unspecified abdominal pain] Onset: 05-13-2024 01-09-2024 Episodic Anxiety disorders (14 sources) Obsessive-compulsive disorder; Translations: [Obsessive-compulsive disorder, unspecified] Onset: 11-17-2008 02-20-2023 Chronic Anxiety disorders (1 source) Obsessive-compulsive disorder, unspecified; Translations: [OBSESSIVE-COMPULSIVE D/O UNSPEC] Onset: 01-06-2019 Disorders of lipid metabolism (10 sources) Mixed hyperlipidemia; Translations: [Mixed hyperlipidemia] Onset: 04-08-2014 02-20-2023 Chronic Esophageal disorders (11 sources) Gastro-esophageal reflux disease without esophagitis; Translations: [Gastroesophageal reflux disease without esophagitis] Onset: 07-08-2019 02-20-2023 Chronic External cause codes: Fall (1 source) Fall on same level, unspecified, initial encounter; Translations: [FALL SAME LEVEL UNSPECIFIED INITIAL] Onset: 07-08-2019 Female infertility (10 sources) Female infertility; Translations: [Female infertility, unspecified] Onset: 01-18-2011 03-27-2023 Chronic Fluid and electrolyte disorders (7 sources) Hypokalemia; Translations: [Dehydration] Onset: 01-06-2019 06-03-2024 Episodic Genitourinary symptoms and ill-defined conditions (1 source) Dysuria; Translations: [Dysuria] 01-09-2024 Episodic Headache; including migraine (8 sources) Migraine; Translations: [Migraine, unspecified, not intractable, without status migrainosus] Onset: 11-17-2008 02-20-2023 Chronic Nonspecific chest pain (1 source) Chest pain, unspecified; Translations: [Chest pain, unspecified] Onset: 03-27-2018 Episodic Other aftercare (1 source) Other usp (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 therapy; Translations: [OTH ALF CURRENT DRUG THERAPY] Onset: 07-08-2019 Episodic Other and unspecified benign neoplasm (2 sources) Benign neoplasm of soft tissue; Translations: [Melanocytic nevi, unspecified] 10-14-2023 Episodic Other connective tissue disease (1 source) Pain in left leg; Translations: [PAIN IN LEFT LEG] Onset: 05-26-2019 Episodic Other connective tissue disease (2 sources) Pain in bilateral legs; Translations: [Pain in right leg] 10-04-2023 Episodic Other connective tissue disease (5 sources) Peroneal tendinitis of left lower limb; Translations: [Peroneal tendinitis, left leg] Onset: 06-03-2024 06-03-2024 Episodic Other connective tissue disease (5 sources) Peroneal tendinitis of right lower limb; Translations: [Peroneal tendinitis, right leg] Onset: 06-03-2024 06-03-2024 Episodic Other diseases of veins and lymphatics (5 sources) Vascular insufficiency; Translations: [Venous insufficiency (chronic) (peripheral)] Onset: 06-03-2024 06-03-2024 Episodic Other inflammatory condition of skin (2 sources) Perioral dermatitis; Translations: [Perioral dermatitis] 10-14-2023 Chronic Other nervous system disorders (20 sources) Cataplexy and narcolepsy; 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 with cataplexy] Onset: 05-13-2024 01-30-2024 Chronic Other nervous system disorders (10 [...] Onset: 05-23-2019 Episodic Other upper respiratory disease (10 sources) Allergic rhinitis; Translations: [Other allergic rhinitis] [...] 06-01-2021 Resolved: 02-22-2022 Chronic Residual codes; unclassified (16 sources) Sleep paralysis; Translations: [Other sleep disorders] Onset: 05-13-2024 01-30-2024 Chronic Residual codes; unclassified (2 sources) Other sleep disorders; Translations: [Sleep related movement disorder, unspecified] Chronic Residual codes; unclassified (1 source) Obstructive sleep apnea (adult)(pediatric); Translations: [Obstructive sleep apnea (adult) (pediatric)] Onset: 08-01-2023 Chronic Residual codes; unclassified (4 sources) Localized edema; Translations: [LOCALIZED EDEMA] Onset: 06-08-2019 Episodic Residual codes; unclassified (20 sources) Hypnagogic hallucinations; Translations: [Other hallucinations] Onset: 05-13-2024 01-30-2024 Episodic Residual codes; unclassified (7 sources) Other hallucinations; Translations: [Hallucinations] Onset: 06-01-2021 Resolved: 02-22-2022 Episodic Residual codes; unclassified (1 source) Transient alteration of awareness; Translations: [Transient alteration of awareness] Onset: 05-20-2024 Episodic Residual codes; unclassified (5 sources) Family history of cardiac disorder; Translations: [Family history of ischemic heart disease and other diseases of the circulatory system] Onset: 06-03-2024 06-03-2024 Episodic Skin and subcutaneous tissue infections (4 sources) Cellulitis of right lower limb; Translations: [Cellulitis of left lower limb] Onset: 08-19-2021 Resolved: 08-19-2021 Episodic Unclassified (2 sources) Chest pain, unspecified / R07.9(ICD-9) Onset: 03-27-2018 Unclassified (3 sources) Patient on antidepressant monitoring plan Onset: 03-30-2024 03-30-2024 Unclassified (3 sources) Baseline PHQ-9 Onset: 03-30-2024 03-30-2024 Past or Other Problems Problem Classification Problem Date Documented Da te Episodic/Chronic Asthma (20 sources) Unspecified asthma, uncomplicated; Translations: [Mild intermittent asthma] Onset: 9 Resolved: 3 Chronic Cardiac dysrhythmias (10 sources) Tachycardia; Translations: [Tachycardia, unspecified] Onset: 3 02-20-2023 Episodic Contraceptive and procreative management (8 sources) Patient encounter status; Translations: [Encounter for fertility testing] Onset: 1 Resolved: 4 03-27-2023 Episodic Deficiency and other anemia (19 sources) Anemia; Translations: [Anemia, unspecified] Onset: 4 03-13-2021 Episodic Diabetes mellitus without complication (10 sources) Impaired fasting glycemia; Translations: [Impaired fasting glucose] Onset: 3 02-20-2023 Episodic Diabetes or abnormal glucose tolerance complicating ; childbirth; or the puerperium (10 sources) History of gestational diabetes mellitus; Translations: [Personal history of gestational diabetes] Onset: 3 02-20-2023 Episodic Fever of unknown origin (1 source) Fever, unspecified; Translations: [FEVER UNSPECIFIED] Onset: 9 Episodic Fracture of lower limb (9 sources) Displaced bicondylar fracture of right tibia, initial encounter for closed fracture; Translations: [Fracture of tibial plateau] Onset: 9 Resolved: 4 03-27-2023 Episodic Nausea and vomiting (4 sources) Nausea with vomiting, unspecified; Translations: [NAUSEA WITH VOMITING UNSPECIFIED] Onset: 9 Episodic Neoplasms of unspecified nature or uncertain behavior (20 sources) Thrombocytosis; Translations: [Thrombocythemia] Onset: 3 11-18-2020 Episodic Noninfectious gastroenteritis (1 source) Noninfective gastroenteritis and colitis, unspecified; Translations: [NONINFECTIVE GE AND COLITIS UNS] Onset: 9 Episodic Nutritional deficiencies (10 sources) Iron deficiency; Translations: [Iron deficiency] Onset: 3 02-20-2023 Episodic Other gastrointestinal disorders (1 source) Diarrhea, unspecified; Translations: [DIARRHEA UNSPECIFIED] Onset: 9 Episodic Other injuries and conditions due to external causes (10 sources) H/O: fracture; Translations: [Personal history of (healed) traumatic fracture] Onset: 3 02-20-2023 Episodic Other liver diseases (10 sources) ALT (SGPT) level raised; Translations: [Elevated ALT measurement] Onset: 3 02-20-2023 Episodic Other nervous system disorders (8 sources) Narcolepsy without cataplexy ; 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 without cataplexy] Onset: 3 Resolved: 3 03-28-2023 Chronic Other non-traumatic joint disorders (12 sources) Ankle edema; Translations: [Effusion, unspecified ankle] Onset: 3 02-20-2023 Episodic Other screening for suspected conditions (not mental disorders or infectious disease) (13 sources) Abnormal electrocardiogram [ECG] [EKG]; Translations: [Electrocardiogram abnormal] Onset: 9 02-20-2023 Episodic Residual codes; unclassified (1 source) Acquired absence of other specified parts of digestive tract; Translations: [ACQ ABSENCE OTH PART DIGESTV TRACT] Onset: Episodic Syncope (1 source) Syncope and collapse; Translations: [SYNCOPE AND COLLAPSE] Onset: 9 Episodic Results Test Name Value Interpretation Reference Range Facility Amphetamine Screen Ql (U)Ord ered By: Jane Waller on 05-20-2024 Amphetamines Ql (U) Negative Negative [facility] Barbiturates [Presence] in U rine by Screen methodOrdered By: Jane Waller on 05-20-2024 Barbiturates Screen Ql (U) Negative Negative [facility] Benzodiazepines Screen Ql (U )Ordered By: Jane Waller on 05-20-2024 Benzodiazepines Ql (U) Negative Negative [facility] Benzoylecgonine [Presence] i n Urine by Screen methodOrdered By: Jane Waller on 05-20-2024 Benzoylecgonine Screen Ql (U) Negative Negative [facility] Cannabinoids [Presence] in U rine by Screen methodOrdered By: Jane Waller on 05-20-2024 Cannabinoids Screen Ql (U) Negative Negative [facility] Comment on above: These are unconfirme d results and should not be used for legal purposes. Drug Cut-Off Concentration: AMPH 1000 ng/mL KEITH 200 ng/mL LARS 200 ng/mL COCM 300 ng/mL OP 300 ng/mL PCP 25 ng/mL THC 20 ng/mL Drug Screen,Urineon 05-20-20 24 Amphetamine Screen,Urine Negative Normal Negative [facility] Comment on above: Performed By: #### U RDS #### [address] Barbiturate Screen,Urine Negative Normal Negative [facility] Comment on above: Performed By: #### U RDS #### [address] Benzodiazepines Screen,Urine Negative Normal Negative [facility] Comment on above: Performed By: #### U RDS #### [address] Cannabinoid Screen,Urine Negative Normal Negative [facility] Comment on above: Result Comment: Thes e are unconfirmed results and should not be used for legal purposes. Drug Cut-Off Concentration: AMPH 1000 ng/mL KEITH 200 ng/mL LARS 200 ng/mL COCM 300 ng/mL OP 300 ng/mL PCP 25 ng/mL THC 20 ng/mL PERFORMED BY: [place] [address] PATHOLOGIST PERSONAL INJURY SPECIALIST YENNIFER BROWN M.D. Performed By: #### U RDS #### [address] Cocaine Screen,Urine Negative Normal Negative [facility] Comment on above: Performed By: #### U RDS #### [address] Opiate Screen,Urine Negative Normal Negative [facility] Comment on above: Performed By: #### U RDS #### [address] Phencyclidine Screen,Urine Negative Normal Negative [facility] Comment on above: Performed By: #### U RDS #### [address] Opiates [Presence] in Urine by Screen methodOrdered By: Jane Waller on 05-20-2024 Opiates Screen Ql (U) Negative Negative [facility] Phencyclidine Screen Ql (U)O rdered By: Jane Waller on 05-20-2024 Phencyclidine Ql (U) Negative Negative [facility] - Chemistry and C hemistry - challengeon 01-09-2024 Bilirubin Ql (U) Negative [facility] Glucose (U) [Mass/Vol] Negative [facility] Ketones Ql (U) Negative [facility] pH (U) 6.0 [pH] [facility] Specific gravity (U) [Rel density] 1.020 [facility] Urobilinogen (U) [Mass/Vol] 0.2 mg/dL [facility] Laboratory - Specimen inform ationon 01-09-2024 Appearance (U) clear [facility] Color (U) yellow [facility] Laboratory - Urinalysison Leukocyte esterase Test strip Ql (U) Negative [facility] Nitrite Ql (U) Negative [facility] Protein Ql (U) Negative [facility] No Panel Informationon 01-08 Urine Occult Blood Negative [facility] Complete Blood Count with Au to Diffon 09-18-2021 Basophils (Bld) [#/Vol] 0.09 10*3/uL Normal 0.00-0.20 [facility] Comment on above: Performed By: #### C BCAD, CMP, LIPD, FE Prof #### [facility] [address], [place] [id number] Basophils/100 WBC (Bld) 1.2 % Normal [facility] Equipment Tester Comment on above: Performed By: #### C BCAD, CMP, LIPD, FE Prof #### [facility] [address], [place] [id number] Eosinophils (Bld) [#/Vol] 0.18 10*3/uL Normal 0.02-0.50 [facility] Comment on above: Performed By: #### C BCAD, CMP, LIPD, FE Prof #### [facility] [address], [place] [id number] Eosinophils/100 WBC (Bld) 2.5 % Normal [facility] Comment on above: Performed By: #### C BCAD, CMP, LIPD, FE Prof #### [facility] [address], [place] [id number] Erythrocyte distribution width (RBC) [Ratio] 12.4 % Normal 11.0-15.0 [facility] Comment on above: Performed By: #### C BCAD, CMP, LIPD, FE Prof #### [facility] [address], [place] [id number] Hematocrit (Bld) [Volume fraction] 41.2 % Normal 35.0-47.0 [facility] Specialist Comment on above: Performed By: #### C BCAD, CMP, LIPD, FE Prof #### [facility] [address], [place] [id number] Hemoglobin (Bld) [Mass/Vol] 14.2 g/dL Normal 11.6-15.5 [facility] Specialist Comment on above: Performed By: #### C BCAD, CMP, LIPD, FE Prof #### [facility] [address], [place] [id number] Lymphocytes (Bld) [#/Vol] 2.3 10*3/uL Normal 0.9-3.9 [facility] Specialist Comment on above: Performed By: #### C BCAD, CMP, LIPD, FE Prof #### [facility] [address], [place] [id number] Lymphocytes/100 WBC (Bld) 31.5 % Normal [facility] Specialist Comment on above: Performed By: #### C BCAD, CMP, LIPD, FE Prof #### [facility] [address], [place] [id number] MCH (RBC) [Entitic mass] 33.4 pg High 27.0-33.0 [facility] Specialist Comment on above: Performed By: #### C BCAD, CMP, LIPD, FE Prof #### [facility] [address], [place] [id number] MCHC (RBC) [Mass/Vol] 34.5 g/dL Normal 32.0-36.0 [facility] Specialist Comment on above: Performed By: #### C BCAD, CMP, LIPD, FE Prof #### [facility] [address], [place] [id number] MCV (RBC) [Entitic vol] 97 fL Normal 80-100 [facility] Specialist Comment on above: Performed By: #### C BCAD, CMP, LIPD, FE Prof #### [facility] [address], [place] [id number] Monocytes (Bld) [#/Vol] 0.5 10*3/uL Normal 0.2-0.9 [facility] Specialist Comment on above: Performed By: #### C BCAD, CMP, LIPD, FE Prof #### [facility] [address], [place] [id number] Monocytes/100 WBC (Bld) 6.2 % Normal [facility] Comment on above: Performed By: #### C BCAD, CMP, LIPD, FE Prof #### [facility] [address], [place] [id number] Neutrophils (Bld) [#/Vol] 4.2 10*3/uL Normal 1.5-7.8 [facility] Specialist Comment on above: Performed By: #### C BCAD, CMP, LIPD, FE Prof #### [facility] [address], [place] [id number] Neutrophils/100 WBC (Bld) 58.5 % Normal [facility] Comment on above: Performed By: #### C BCAD, CMP, LIPD, FE Prof #### [facility] [address], [place] [id number] Platelet mean volume (Bld) [Entitic vol] 8.10 fL Normal 7.50-12.50 [facility] Comment on above: Performed By: #### C BCAD, CMP, LIPD, FE Prof #### [facility] [address], [place] [id number] Platelets (Bld) [#/Vol] 389 10*3/uL Normal 140-400 [facility] Specialist Comment on above: Performed By: #### C BCAD, CMP, LIPD, FE Prof #### [facility] [address], [place] [id number] RBC (Bld) [#/Vol] 4.25 10*6/uL Normal 3.90-5.[address] [facility] Specialist Comment on above: Performed By: #### C BCAD, CMP, LIPD, FE Prof #### [facility] [address], [place] [id number] RDW-SD 44.2 fL Normal 37.0-50.0 [facility] Specialist Comment on above: Performed By: #### C BCAD, CMP, LIPD, FE Prof #### [facility] [address], [place] [id number] WBC (Bld) [#/Vol] 7.2 10*3/uL Normal 3.8-11.0 [facility] [place] [facility] Comment on above: Performed By: #### C BCAD, CMP, LIPD, FE Prof #### [facility] [address], [place] [id number] Comprehensive Metabolic Pane nichole 09-18-2021 Albumin [Mass/Vol] 4.5 g/dL Normal 3.6-5.1 [facility] [place] [facility] T[facility] Comment on above: Performed By: #### C BCAD, CMP, LIPD, FE Prof #### [facility] [address], [place] [id number] Albumin/Globulin [Mass ratio] 2.1 {ratio} Normal 1.0-2.5 [facility] Comment on above: Performed By: #### C BCAD, CMP, LIPD, FE Prof #### [facility] [address], [place] [id number] ALP [Catalytic activity/Vol] 64 U/L Normal 35-119 [facility] Comment on above: Performed By: #### C BCAD, CMP, LIPD, FE Prof #### [facility] [address], [place] [id number] ALT [Catalytic activity/Vol] 52 U/L High 6-33 [facility] Comment on above: Result Comment: 08/02 Female reference range changed. Performed By: #### C BCAD, CMP, LIPD, FE Prof #### [facility] [address], [place] [id number] Anion gap [Moles/Vol] 15 mmol/L Normal 12-20 [facility] Comment on above: Result Comment: Effe ctive 09/07/2019 reference range changed. Performed By: #### C BCAD, CMP, LIPD, FE Prof #### [facility] [address], [place] [id number] AST [Catalytic activity/Vol] 29 U/L Normal 9-34 [facility] Comment on above: Performed By: #### C BCAD, CMP, LIPD, FE Prof #### [facility] [address] [facility] [place] [id number] Bilirubin [Mass/Vol] 0.57 mg/dL Normal 0.30-1.20 [facility] Comment on above: Performed By: #### C BCAD, CMP, LIPD, FE Prof #### [facility] [address] [facility] [place] [id number] BUN/CREA 18 Ratio Normal 6-22 [facility] Comment on above: Performed By: #### C BCAD, CMP, LIPD, FE Prof #### [facility] [address] [facility] [place] [id number] Calcium [Mass/Vol] 9.5 mg/dL Normal 8.6-10.2 [facility] Comment on above: Performed By: #### C BCAD, CMP, LIPD, FE Prof #### [facility] [address] [facility] [place] [id number] Chloride [Moles/Vol] 103 mmol/L Normal 98-107 [facility] Comment on above: Performed By: #### C BCAD, CMP, LIPD, FE Prof #### [facility] [address] [facility] [place] [id number] CO2 [Moles/Vol] 27 mmol/L Normal 20-31 [facility] Comment on above: Performed By: #### C BCAD, CMP, LIPD, FE Prof #### [facility] [address] [facility] [place] [id number] Creatinine [Mass/Vol] 0.7 mg/dL Normal 0.6-1.4 [facility] Comment on above: Performed By: #### C BCAD, CMP, LIPD, FE Prof #### [facility] [address] [facility] [place] [id number] eGFRAA 112 mL/min/1.73m2 Normal >60 [facility] Comment on above: Performed By: #### C BCAD, CMP, LIPD, FE Prof #### [facility] [address] [facility] [place] [id number] eGFRNAA 92 mL/min/1.73m2 Normal >60 [place] Equipment Tester Comment on above: Performed By: #### C BCAD, CMP, LIPD, FE Prof #### [facility] [address], [place] [id number] Globulin (S) [Mass/Vol] 2.1 g/dL Normal 1.9-3.7 [facility] T[facility] Comment on above: Performed By: #### C BCAD, CMP, LIPD, FE Prof #### [facility] [address], [place] [id number] Glucose [Mass/Vol] 123 mg/dL High 65-99 [facility] Equipment Tester Comment on above: Result Comment: For FASTING Glucose --- ADA reference ranges: Normal 65-99 mg/dl Prediabetes 100-125 Diabetes >/= 126 Performed By: #### C BCAD, CMP, LIPD, FE Prof #### [facility] [address], [place] [id number] Potassium [Moles/Vol] 3.7 mmol/L Normal 3.5-5.5 [facility] T[facility] Comment on above: Performed By: #### C BCAD, CMP, LIPD, FE Prof #### [facility] [address], [place] [id number] Protein [Mass/Vol] 6.6 g/dL Normal 6.1-8.1 [facility] Equipment Tester Comment on above: Performed By: #### C BCAD, CMP, LIPD, FE Prof #### [facility] [address], [place] [id number] Sodium [Moles/Vol] 141 mmol/L Normal 135-146 [facility] Equipment Tester Comment on above: Performed By: #### C BCAD, CMP, LIPD, FE Prof #### [facility] [address], [place] [id number] Urea nitrogen [Mass/Vol] 12 mg/dL Normal 7-25 [facility] Equipment T[facility] Comment on above: Performed By: #### C BCAD, CMP, LIPD, FE Prof #### [facility] [address], [place] [id number] Iron Profileon 09-18-2021 %FESAT 38 % Normal 11-50 [facility] Equipment T[facility] Comment on above: Performed By: #### C BCAD, CMP, LIPD, FE Prof #### [facility] [address], [place] [id number] FE 113 ug/dL Normal 40-190 [facility] Specialist Comment on above: Result Comment: Refe jonathan range change 07/19/2017. Prior reference range F 37-145 ug/dL, M 59-158 ug/dL. Performed By: #### C BCAD, CMP, LIPD, FE Prof #### [facility] [address], [place] [id number] TIBC 297 ug/dL Normal 250-450 [facility] Specialist Comment on above: Performed By: #### C BCAD, CMP, LIPD, FE Prof #### [facility] [address], [place] [id number] UIBC 184 ug/dL Normal 112-347 [facility] Specialist Comment on above: Performed By: #### C BCAD, CMP, LIPD, FE Prof #### [facility] [address], [place] [id number] Lipid Panelon 09-18-2021 Cholesterol [Mass/Vol] 238 mg/dL High 125-200 [facility] Specialist Comment on above: Result Comment: Low risk < 200mg/dL Borderline risk 201-239 mg/dl High risk > or equal to 240 Performed By: #### C BCAD, CMP, LIPD, FE Prof #### [facility] [address], [place] [id number] Cholesterol in HDL [Mass/Vol] 42 mg/dL Normal >40 [facility] Equipment Tester Comment on above: Result Comment: High Cardiovascular Risk HDL <40 mg/dL Low Cardiovascular Risk HDL > or equal to 60 mg/dl Performed By: #### C BCAD, CMP, LIPD, FE Prof #### [facility] [address], [place] [id number] Cholesterol in LDL [Mass/Vol] 131 mg/dL Normal [facility] Specialist Comment on above: Result Comment: LDL ATP III CLASSIFICATION LDL less than 100 mg/dl Optimal LDL 100-129 mg/dl Near or above optimal LDL 130-159 Borderline high LDL 160-189 High LDL greater than 189 mg/dl Very High Performed By: #### C BCAD, CMP, LIPD, FE Prof #### [facility] [address] [place], [place] [id number] Cholesterol in VLDL [Mass/Vol] 65 mg/dL Normal [facility] Specialist Comment on above: Performed By: #### C BCAD, CMP, LIPD, FE Prof #### [facility] [address] [place], [place] [id number] Cholesterol.total/Ch olesterol in HDL [Mass ratio] 6 {ratio} Normal [facility] Specialist Comment on above: Performed By: #### C BCAD, CMP, LIPD, FE Prof #### [facility] [address] [place], [place] [id number] Triglyceride [Mass/Vol] 326 mg/dL High 30-150 [facility] Specialist Comment on above: Result Comment: TRIG ATPIII CLASSIFICATIONS TRIG less than 150 mg/dl Normal TRIG 150-199 mg/dl Borderline High TRIG 200-500 mg/dl High TRIG greather than 500 mg/dl Very High Performed By: #### C BCAD, CMP, LIPD, FE Prof #### [facility] [address] [place] [id number] KNEE RIGHT 3 [facility] 0 KNEE RIGHT 3 [facility] Department of Radiology [address] [place] [id number] Patient Name: LINDA ALVARADO : 1975 Sex: F Age: Race: White Pt. Location: Patient Status: O Ordered Date: 03/31/2020 1:55:00 PM Completed Date: 03/31/2020 01:59 PM Requesting Provider: JONAS BISHOP Attending Provider: JONAS BISHOP Report Copy To: Signs & Symptoms: S82.101D Unsp fx upper end of r tibia, subs for clos fx w routn heal I10 History: [place] Comments: Weight Bearing?: Y Exam: KNEE RIGHT 3 [facility] KNEE RIGHT 3 [facility] 03/31/2020 1:59 PM CLINICAL INDICATIONS: S82.101D [...] fracture Electronically signed: Jonas Robbins. Transcribed by: [email or web address], User Resident: Electronically Signed by: JONAS ROBBINS @ 03/31/2020 02:03 PM Normal [facility] Comment on above: Order Comment: Weigh t Bearing?: Y KNEE RIGHT 3 [facility] 0 KNEE RIGHT 3 [facility] Department of Radiology [address] [place] [phone] Patient Name: LINDA ALVARADO : 1975 Sex: F Age: Race: White Pt. Location: 84 Patient Status: O Ordered Date: 10/12/2019 11:20:00 AM Completed Date: 10/12/2019 11:29 AM Requesting Provider: JONAS BISHOP Attending Provider: JONAS BISHOP Report Copy To: MENDENHALLYAQUELINEL Signs & Symptoms: S82.101D Unsp fx upper end of r tibia, subs for clos fx w routn heal I10 History: [place]ise Comments: , , , Ordering Provider - JONAS BISHOP PA-C , Exam: KNEE RIGHT 3 [facility] KNEE RIGHT 3 [facility] 10/12/2019 11:29 AM SIGNS AND SYMPTOMS: S82.101D [...] alignment Electronically signed: Ying Enriquez. Transcribed by: [email or web address], User Resident: Electronically Signed by: YING ENRIQUEZ @ 10/12/2019 12:10 PM Normal [facility] Comment on above: Order Comment: , , = ========= , Ordering Provider - JONAS BISHOP PA-C , KNEE RIGHT 1 OR 2 [facility] 09-02 KNEE RIGHT 1 OR 2 [facility] Department of Radiology [address] [place] [address] Patient Name: LINDA ALVARADO : 1975 Sex: F Age: Race: White Pt. Location: Patient Status: Ordered Date: 09/14/2019 10:40:00 AM Completed Date: 09/14/2019 11:01 AM Requesting Provider: JONAS BISHOP Attending Provider: Report Copy To: Signs & Symptoms: S82.101D Unsp fx upper end of r tibia, subs for clos fx w routn heal I10 History: [place] Comments: , , , Ordering Provider - [...] healing Electronically signed: Stephanie Navarro. Transcribed by: [email or web address], User Resident: Electronically Signed by: STEPHANIE NAVARRO @ 09/14/2019 05:22 PM Normal [facility] Comment on above: Order Comment: , , = ========= , Ordering Provider - JONAS BISHOP PA-C , KNEE RIGHT 1 OR 2 [facility] 08-02 KNEE RIGHT 1 OR 2 [facility] Department of Radiology [address] [place] [id number] Patient Name: LINDA ALVARADO : 1975 Sex: F Age: Race: White Pt. Location: Patient Status: O Ordered Date: 08/17/2019 1:25:00 PM Completed Date: 08/17/2019 01:26 PM Requesting Provider: JONAS BISHOP Attending Provider: JONAS BISHOP Report Copy To: ELVER MENDENHALL Signs & Symptoms: S82.101A Unsp fracture of upper end of right tibia, init for clos fx I10 History: Denise Comments: , Views (X-RAY, KNEE): AP, Lateral , Views (X-RAY, KNEE): AP, Lateral , , , Ordering Provider - JONAS BISHOP PA-C , Exam: KNEE RIGHT 1 OR 2 [facility] KNEE RIGHT 1 OR 2 [facility] 08/17/2019 [...] effusion Electronically signed by:Stephanie Navarro. Transcribed by: [email or web address], User Resident: Electronically Signed by: SETPHANIE NAVARRO @ 08/17/2019 03:52 PM Normal [facility] Comment on above: Order Comment: , Katherine ws (X-RAY, KNEE): AP, Lateral , Views (X- RAY, KNEE): AP, Lateral , , , Ordering Provider - JONAS BISHPO PA-C , VITAMIN D 25-HYDROXYon 08-17 VITAMIN D 25-OH 35.4 ng/mL Normal 30.0-80.0 [facility] Comment on above: Result Comment: >80. 0 Toxicity possible Performed By: #### 5 6101, [address] #### [place] [address], [facility] KNEE RIGHT 1 OR 2 [facility]on 07-03 KNEE RIGHT 1 OR 2 [facility] Department of Radiology [address] [place] [phone] Patient Name: LINDA ALVARADO : 1975 Sex: F Age: Race: White Pt. Location: 84 Patient Status: Ordered Date: 07/20/2019 10:30:00 AM Completed Date: 07/20/2019 10:42 AM Requesting Provider: SHWETA VIDAL Attending Provider: Report Copy To: Signs & Symptoms: S82.101A Unsp fracture of upper end of right tibia, init for clos fx I10 History: [place] Comments: , , , Ordering Provider - [...] healing Electronically signed by:Stephanie Navarro. Transcribed by: [email or web address], User Resident: Electronically Signed by: STEPHANIE NAVARRO @ 07/20/2019 05:04 PM Normal [facility] Comment on above: Order Comment: , , = ========= , Ordering Provider - SHWETA VIDAL PA-C , BASIC METABOLIC PANELon 11-0 Calcium [Mass/Vol] 8.8 mg/dL Normal 8.6-10.[address] [facility] Comment on above: Order Comment: No: D o not add to previous draw Performed By: #### 5 6101, 23721 #### [facility] [address] [place] [address], [place] Chloride [Moles/Vol] 99 mmol/L Normal 98-107 [facility] Comment on above: Order Comment: No: D o not add to previous draw Performed By: #### 5 610, 35660 #### [facility] [address] [place] [address], [place] CO2 [Moles/Vol] 27 mmol/L Normal 21-31 [facility] Comment on above: Order Comment: No: D o not add to previous draw Performed By: #### 5 610, 66009 #### [facility] [address] [place] [address], [place] Creatinine [Mass/Vol] 0.81 mg/dL Normal 0.60-1.20 [facility] Comment on above: Order Comment: No: D o not add to previous draw Performed By: #### 5 610, 84870 #### [facility] [address] [place] [address], [place] GFR/1.73 sq M predicted among blacks MDRD (S/P/Bld) [Vol rate/Area] mL/min/{1.73_m2} Normal >60 [facility] Comment on above: Order Comment: No: D o not add to previous draw Performed By: #### 5 610, 38167 #### [facility] [address] [place] [id number], [facility] GFR/1.73 sq M predicted among non-blacks MDRD (S/P/Bld) [Vol rate/Area] mL/min/{1.73_m2} Normal >60 [facility] Comment on above: Order Comment: No: D o not add to previous draw Performed By: #### 5 610, 13198 #### [facility] [address] [place] [address], [place] Glucose [Mass/Vol] 105 mg/dL High 70-100 [facility] Comment on above: Order Comment: No: D o not add to previous draw Performed By: #### 5 610, 00748 #### [facility] [address] [place] [address], [place] Potassium [Moles/Vol] 3.8 mmol/L Normal 3.5-5.1 [facility] Comment on above: Order Comment: No: D o not add to previous draw Performed By: #### 5 610, 78204 #### [facility] [address] [place] [address], [facility] Sodium [Moles/Vol] 133 mmol/L Low 136-145 [facility] Comment on above: Order Comment: No: D o not add to previous draw Performed By: #### 5 6101, 78525 #### [facility] [address] [place] [address], [facility] Urea nitrogen [Mass/Vol] 10 mg/dL Normal 7-25 [facility] Comment on above: Order Comment: No: D o not add to previous draw Performed By: #### 5 6101, 27714 #### [facility] [address] [place] [address], [place] CBC COMPLETE BLOOD COUNTon 09-07-2018 Erythrocyte distribution width (RBC) [Ratio] 13.3 % Normal 11.5-15.0 [facility] Comment on above: Order Comment: No: D o not add to previous draw Performed By: #### 5 6100, 63265 #### [facility] [address] [place] [id number], [facility] Hematocrit (Bld) [Volume fraction] 36.1 % Normal 36.0-45.0 [facility] Comment on above: Order Comment: No: D o not add to previous draw Performed By: #### 5 6100, 12054 #### [facility] [address] [place] [address], [facility] Hemoglobin (Bld) [Mass/Vol] 11.6 g/dL Low 12.0-15.0 [facility] Comment on above: Order Comment: No: D o not add to previous draw Performed By: #### 5 6100, 58379 #### [facility] [address] [place] [address], [facility] MCH (RBC) [Entitic mass] 31.2 pg Normal 27.0-33.0 [facility] Comment on above: Order Comment: No: D o not add to previous draw Performed By: #### 5 6100, 32745 #### [facility] [address] [place] [id number], [facility] MCHC (RBC) [Mass/Vol] 32.1 g/dL Normal 32.0-35.0 [facility] Comment on above: Order Comment: No: D o not add to previous draw Performed By: #### 5 6100, 24648 #### [facility] [address] [place] [address], [facility] MCV (RBC) [Entitic vol] 97.0 fL Normal 82.0-98.0 [facility] Comment on above: Order Comment: No: D o not add to previous draw Performed By: #### 5 610, 05848 #### [facility] [address] [place] [address], [place] Nucleated RBC/100 WBC (Bld) [Ratio] 0 % Normal 0-0 [facility] Comment on above: Order Comment: No: D o not add to previous draw Performed By: #### 5 6101, 73861 #### [facility] [address] [place] [address], [facility] PLAT CNT 447 10*3/uL High 150-400 [facility] Comment on above: Order Comment: No: D o not add to previous draw Performed By: #### 5 610, 78351 #### [facility] [address] [place] [address], [facility] RBC (Bld) [#/Vol] 3.72 10*6/uL Low 3.80-5.00 [facility] Comment on above: Order Comment: No: D o not add to previous draw Performed By: #### 5 6101, 39746 #### [facility] [address] [place] [address], [facility] WBC (Bld) [#/Vol] 16.46 10*3/uL High 4.00-10.60 [facility] Comment on above: Order Comment: No: D o not add to previous draw Performed By: #### 5 6101, 04860 #### [facility] [address] [facility]. [address] *MRSA/MSSA DNA NASALon 07-07 *MRSA/MSSA DNA NASAL Clinical Report: (D ) Specimen: NASAL SWAB Collected: 07/07/2019 08:00 Status: Final Last Updated: 07/07/2019 14:28 MSSA DNA (Final) Methicillin Susceptible Staphylococcus aureus DNA Detected MRSA DNA (Final) Negative Normal [facility] Comment on above: Performed By: #### 5 6101, 09823 #### [facility] [address] [facility] APTTon 07-07-2019 aPTT Coag (Bld) [Time] 38.8 s High 25.0-35.0 [facility] Comment on above: Result Comment: ALL [...] THIS PURPOSE. Performed By: #### 5 6101, 95029 #### [facility] [address] CBC W/DIFFon 07-07-2019 ABS BASOPHILS 0.1 10*3/uL Normal 0.0-0.2 [facility] Comment on above: Performed By: #### 5 0103 #### [facility] [address] ABS IMM GRANS 0.0 10*3/uL Normal 0.0-0.2 [facility] Comment on above: Performed By: #### 5 0103 #### [facility] [address] ABS NEUTROPHILS 4.9 10*3/uL Normal 1.6-7.6 [facility] Comment on above: Performed By: #### 5 0103 #### [facility] [address] Basophils/100 WBC (Bld) 1.0 % Normal 0.0-1.0 [facility] Comment on above: Performed By: #### 5 0103 #### [facility] [address] Eosinophils (Bld) [#/Vol] 0.2 10*3/uL Normal 0.0-0.5 [facility] Comment on above: Performed By: #### 5 3 #### [facility] [address] Eosinophils/100 WBC (Bld) 3.0 % Normal 0.0-6.0 [facility] Comment on above: Performed By: #### 0103 #### [facility] [address] Erythrocyte distribution width (RBC) [Ratio] 13.3 % Normal 11.5-15.0 [facility] Comment on above: Performed By: #### 3 #### [facility] [address] [facility] [place] [address], [facility] Hematocrit (Bld) [Volume fraction] 36.9 % Normal 36.0-45.0 [facility] Comment on above: Performed By: #### 3 #### [facility] [address] [facility]. [address] Hemoglobin (Bld) [Mass/Vol] 12.2 g/dL Normal 12.0-15.0 [facility] Comment on above: Performed By: #### 3 #### [facility] [address] [facility]. [address] IMMATURE GRANS 0.5 % Normal 0.0-1.0 [facility] Comment on above: Performed By: #### 102 #### [facility] [address] [facility] [place] [address], [facility] Lymphocytes (Bld) [#/Vol] 2.0 10*3/uL Normal 1.2-4.0 [facility] Comment on above: Performed By: #### 5 3 #### [facility] [address] [facility] [place] [address], [facility] Lymphocytes/100 WBC (Bld) 25.3 % Normal 20.0-45.0 [facility] Comment on above: Performed By: #### 3 #### [facility] [address] [place] [address], [facility] MCH (RBC) [Entitic mass] 31.4 pg Normal 27.0-33.0 [facility] Comment on above: Performed By: #### 5 0103 #### [facility] [address] [facility] [place] MCHC (RBC) [Mass/Vol] 33.1 g/dL Normal 32.0-35.0 [facility] Comment on above: Performed By: #### 5 3 #### [facility] [address] [facility] [place] [address], [facility] MCV (RBC) [Entitic vol] 95.1 fL Normal 82.0-98.0 [facility] Comment on above: Performed By: #### 102 #### [facility] [address] [place] [address], [facility] Monocytes (Bld) [#/Vol] 0.6 10*3/uL Normal 0.1-1.0 [facility] Comment on above: Performed By: #### 102 #### [facility] [address] [facility]. [address] MONOS 7.3 % Normal 5.0-12.0 [facility] Comment on above: Performed By: #### 5 3 #### [facility] [address] Neutrophils/100 WBC (Bld) 62.9 % Normal 40.0-72.0 [facility] Comment on above: Performed By: #### 3 #### [facility] [address] Nucleated RBC/100 WBC (Bld) [Ratio] 0 % Normal 0-0 [facility] Comment on above: Performed By: #### 5 3 #### [facility] [address] [facility] [place] [address], [facility] PLAT CNT 392 10*3/uL Normal 150-400 The [facility] Comment on above: Performed By: #### 5 3 #### [facility] [address] RBC (Bld) [#/Vol] 3.88 10*6/uL Normal 3.80-5.00 [facility] Comment on above: Performed By: #### 5 0103 #### [facility] [address] WBC (Bld) [#/Vol] 7.72 10*3/uL Normal 4.00-10.[address] [facility] Comment on above: Performed By: #### 5 0103 #### [facility] [address] COMP METABOLIC PANELon 07-07 Albumin [Mass/Vol] 3.9 g/dL Normal 3.5-5.[address] [facility] Comment on above: Performed By: #### 0 0121 #### [facility] [address] ALKALINE PHOSPH 58 IU/L Normal 34-104 [facility] Comment on above: Performed By: #### 0 0121 #### [facility] [address] ALT [Catalytic activity/Vol] 55 U/L High 7-52 [facility] Comment on above: Performed By: #### 0 0121 #### [facility] [address] AST [Catalytic activity/Vol] 39 U/L Normal 13-39 [facility] Comment on above: Performed By: #### 0 0121 #### [facility] [address] Bilirubin [Mass/Vol] 0.4 mg/dL Normal 0.3-1.0 [facility] Comment on above: Performed By: #### 0 0121 #### [facility] [address] [place] [address], [facility] Calcium [Mass/Vol] 9.0 mg/dL Normal 8.6-10.3 [facility] Comment on above: Performed By: #### 0 0121 #### [facility] [address] [place] [address], [place] Chloride [Moles/Vol] 104 mmol/L Normal 98-107 [facility] Comment on above: Performed By: #### 0 0121 #### [facility] [address] [place] [address], [place] CO2 [Moles/Vol] 25 mmol/L Normal 21-31 [facility] Comment on above: Performed By: #### 0 0121 #### [facility] [address] [place] [address], [place] Creatinine [Mass/Vol] 0.81 mg/dL Normal 0.60-1.20 [facility] Comment on above: Performed By: #### 0 0121 #### [facility] [address] [place] [address], [place] GFR/1.73 sq M predicted among blacks MDRD (S/P/Bld) [Vol rate/Area] mL/min/{1.73_m2} Normal >60 [facility] Comment on above: Performed By: #### 0 0121 #### [facility] [address] [place] [address], [place] GFR/1.73 sq M predicted among non-blacks MDRD (S/P/Bld) [Vol rate/Area] mL/min/{1.73_m2} Normal >60 [facility] Comment on above: Performed By: #### 0 0121 #### [facility] [address] [place] [address], [place] Glucose [Mass/Vol] 112 mg/dL High 70-[address] [facility] Comment on above: Performed By: #### 0 0121 #### [facility] [address] [facility] [place] [address], [facility] Potassium [Moles/Vol] 3.5 mmol/L Normal 3.5-5.1 [facility] Comment on above: Performed By: #### 0 0121 #### [facility] [address] [facility] [place] [address], [facility] Protein [Mass/Vol] 6.9 g/dL Normal 6.0-8.3 [facility] Comment on above: Performed By: #### 0 0121 #### [facility] [address] [facility] [place] [address], [facility] Sodium [Moles/Vol] 134 mmol/L Low 136-145 [facility] Comment on above: Performed By: #### 0 0121 #### [facility] [address] [facility] [place] [address], [facility] Urea nitrogen [Mass/Vol] 10 mg/dL Normal 7-25 [facility] Comment on above: Performed By: #### 0 0121 #### [facility] [address] [place] [address], [facility] CT 3D LOWER EXTREMITY WO CON TRAST RIGHTon 07-07-2019 CT 3D LOWER EXTREMITY WO CONTRAST RIGHT [facility] Department of Radiology [address] [place] [id number] Patient Name: LINDA ALVARADO : 1975 Sex: F Age: Race: White Pt. Location: [facility] Patient Status: I Ordered Date: 07/07/2019 2:05:00 [...] findings. Electronically signed by:Ying Enriquez. Transcribed by: [email or web address], User Resident: JANET HARRINGTON Electronically Signed by: YING ENRIQUEZ @ 07/07/2019 07:01 AM I personally read this/these film(s) with this resident Normal [facility] Comment on above: Order Comment: R/O F ractures, right leg from mid femur down to ankle KNEE RIGHT 1 OR 2 VWSon KNEE RIGHT 1 OR 2 S [facility] Department of Radiology [address] [place] [id number] Patient Name: LINDA ALVARADO : 1975 Sex: F Age: Race: White Pt. Location: [id number] Patient Status: I Ordered Date: 07/07/2019 7:20:00 AM Completed Date: 07/07/2019 01:35 PM Requesting Provider: IAN KU Attending Provider: IAN KU Report Copy To: Signs & Symptoms: orif tibial plateau right, possible ex-fix History: orif tibial plateau right, possible ex-fix Comments: orif tibial plateau right, possible ex-fix Exam: KNEE RIGHT 1 OR 2 [facility] KNEE RIGHT 1 OR 2 [facility] 07/07/2019 1:35 PM EST SIGNS AND SYMPTOMS: orif tibial plateau right, possible ex-fix TECHNOLOGIST COMMENTS: Intra op right knee, ORIF tibial plateau, with Dr. Ku, 48 sec of fluoro used QUESTION FOR THE RADIOLOGIST: orif tibial plateau right, possible ex-fix PROTOCOL: AP(PA) and Lateral views were obtained. COMPARISON: None FINDINGS: Soft tissues: Bones: Joints: IMPRESSION: Documentation Electronically signed by:Ying Enriquez. Transcribed by: [email or web address], User Resident: Electronically Signed by: YING ENRIQUEZ @ 07/07/2019 01:40 PM Normal [facility] Comment on above: Order Comment: orif tibial plateau right, possible ex-fix Operative Reporton 9 Operative Report MR#: [id number] I [facility] Pt. Name: Linda Alvarado Room #: [id number] Discharge Date: Birthdate: 1975 OPERATIVE REPORT DATE [...] elevated from the tibial shaft with a Ebcerril. We extended our deep dissection proximally and [...] Cruz MD Date Trans: 07/07/2019 01:02 P/kelin [id number] cc: Elver Mendenhall M.D. [address] [address] Leslye Doss M.D. E R Physican...do Not Send [address] [id number] Normal [facility] POC GLUCOSE LABon 07-07-2019 Glucose [Mass/Vol] 92 mg/dL Normal 70-100 [facility] Comment on above: Performed By: #### 8 5499 #### [facility] [address] [facility] [place] [address], [facility] POC URINE PREGNANCYon 2018 Beta HCG ( test) Ql (U) Negative Normal NEGATIVE [facility] Comment on above: Result Comment: Perf ormed in Emergency Department. Performed By: #### 8 6360 #### [facility] [address] PROTHROMBIN TIMEon 9 INR Coag (PPP) [Relative time] 1.12 {INR} Normal 0.91-1.16 [facility] Comment on above: Result Comment: ACCC [...] CHEST 1995;108:[id number]-246S. Performed By: #### 5 6101, 81235 #### [facility] [address] [place] [address], [facility] PT Coag (PPP) [Time] 14.5 s Normal 12.3-14.8 [facility] Comment on above: Result Comment: ALL RESULTS MUST BE INTERPRETED WITH RESPECT TO BLOOD DRAWING ARTIFACT OR DILUTION ERROR OF ANTICOAGULANT AT THE TIME OF SAMPLING. Performed By: #### 5 6101, 06434 #### [facility] [address] [facility] [address], [facility] RBC'S 2 UNITSon 07-07-2019 CROSSMATCH INTERP 1 COMP Normal The [facility] Comment on above: Performed By: #### 8 6002 #### [facility] [address] [facility] [address], [facility] CROSSMATCH INTERP 2 COMP Normal [facility] Comment on above: Performed By: #### 8 6002 #### [facility] [address] [place] [address], [facility] PRODUCT CODE 1 E0336 Normal [facility] Comment on above: Performed By: #### 8 6002 #### [facility] [address] [place] [address], [facility] PRODUCT CODE 2 E0678 Normal [facility] Comment on above: Performed By: #### 8 6002 #### [facility] [address] [place] [address], [facility] PRODUCT STATUS 1 RE Normal The [facility] Comment on above: Result Comment: Resu lt changed by IF on 07/11/2019 09:02. The previous value was XM. Performed By: #### 8 6002 #### [facility] [address] [place] [address], [facility] PRODUCT STATUS 2 RE Normal The [facility] Comment on above: Result Comment: Resu lt changed by IF on 07/11/2019 09:02. The previous value was XM. Performed By: #### 8 6002 #### [facility] [address] [place] [address], [facility] UNIT ABO 1 O Normal [facility] Comment on above: Performed By: #### 8 6002 #### [facility] [address] [place] [address], [facility] UNIT ABO 2 O Normal [facility] Comment on above: Performed By: #### 8 6002 #### [facility] [address] [place] [address], [facility] UNIT ID 1 [id number] Normal [facility] Comment on above: Performed By: #### 8 6002 #### [facility] [address] UNIT ID 2 [id number] Normal [facility] Comment on above: Performed By: #### 8 6002 #### [facility] [address] UNIT RH 1 Negative Normal [facility] Comment on above: Performed By: #### 8 6002 #### [facility] [address] UNIT RH 2 Negative Normal [facility] Comment on above: Performed By: #### 8 6002 #### [facility] [address] TYPE AND SCREENon 07-07-2019 ABO INTERPRETATION O Normal [facility] Comment on above: Performed By: #### 6 2586 #### [facility] [address] RH INTERPRETATION Negative Normal [facility] Comment on above: Performed By: #### 6 2586 #### [facility] [address] XR KNEE RT 4V OR >on 019 XR KNEE RT 4V OR > Patient: LINDA ALVARADO Exam Date: 07/06/2019 : 1975 Gender:F Ordering : LISHA HUSAIN Admission #: [id number] Family : Order #: [id number] CLICK HERE TO VIEW EXAM RADIOLOGY REPORT [...] Proctor M.D. on 07/07/2019 at 07:26 Normal [facility] ECHOCARDIO M/2D COMPLETEon 1 ECHOCARDIO M/2D COMPLETE Patient: LINDA ALVARADO Exam Date: 06/08/2019 : 1975 Gender:F Ordering : DR GITA HUSAIN Admission #: [id number] Family : Order #: [id number] CLICK HERE TO VIEW EXAM ECHOCARDIOGRAM REPORT [...] Area(A4C): 17.60 cm2 Left Atrium Systolic Volume(A2C): 13979 mm3 Left Atrium Systolic Volume(A4C): 97307 mm3 Mitral Valve MV E to A [...] Elmore M.D. on 06/09/2019 at 13:09 Normal [facility] CBC AUTO DIFFon 05-23-2019 Basophils (Bld) [#/Vol] 0.1 103/ul Normal 0.0-0.1 [facility] Comment on above: Performed By: #### L IPA, CMP #### [facility] [address] [place], [place] [phone] Jose Gita Basophils/100 WBC (Bld) 1.4 % Normal 0.2-2.0 [facility] Comment on above: Performed By: #### L IPA, CMP #### [facility] [address] [place], [place] [address] Jose Gita Eosinophils (Bld) [#/Vol] 0.3 103/ul Normal 0.0-0.7 [facility] Comment on above: Performed By: #### L IPA, CMP #### [facility] [address] [id number] Jose Gita Eosinophils/100 WBC (Bld) 2.9 % Normal 0.9-7.0 [facility] Comment on above: Performed By: #### L IPA, CMP #### [facility] [address] [id number] Jose Gita Erythrocyte distribution width (RBC) [Ratio] 13.5 % Normal 11.0-15.0 [facility] Comment on above: Performed By: #### L IPA, CMP #### [facility] [address] [place] [address] Jose Gita Hematocrit (Bld) [Volume fraction] 37.3 % Normal 36.0-48.0 [facility] Comment on above: Performed By: #### L IPA, CMP #### [facility] [address] [place] [address] Jose Gita Hemoglobin (Bld) [Mass/Vol] 12.5 g/dL Normal 12.0-16.0 [facility] Comment on above: Performed By: #### L IPA, CMP #### [facility] [address] [place] [address] Jose Gita IG # 0.05 10e3/ul Critically high 0.00-0.03 [facility] Comment on above: Performed By: #### L IPA, CMP #### [facility] [address] [place] [address] Jose Gita IG % 0.6 % Critically high 0.0-0.5 [facility] Comment on above: Performed By: #### L IPA, CMP #### [facility] [address] [place] [address] Jose Gita Lymphocytes (Bld) [#/Vol] 2.4 103/ul Normal 1.2-3.8 [facility] Comment on above: Performed By: #### L IPA, CMP #### [facility] [address] [place] [address] Jose Gita Lymphocytes/100 WBC (Bld) 27.2 % Normal 20.5-60.0 [facility] Comment on above: Performed By: #### L IPA, CMP #### [facility] [address] [place] [address] Jose Gita MANUAL DIFF REQ NO Normal [facility] Comment on above: Performed By: #### L IPA, CMP #### [facility] [address] [place] [address] Jose Gita MCH (RBC) [Entitic mass] 32.1 pg Normal 26.7-34.0 [facility] Comment on above: Performed By: #### L IPA, CMP #### [facility] [address] [place], [place] [phone] Jose Pelayo MCHC (RBC) [Mass/Vol] 33.5 g/dL Normal 29.9-35.2 [facility] Comment on above: Performed By: #### L IPA, CMP #### [facility] [address] [place], [place] [phone] Josetripp Pelayo MCV (RBC) [Entitic vol] 95.6 fL Normal 81.0-99.0 [facility] Comment on above: Performed By: #### L IPA, CMP #### [facility] [address] [place], [place] [phone] Jose Gita Monocytes (Bld) [#/Vol] 0.8 103/ul Normal 0.3-0.8 [facility] Comment on above: Performed By: #### L IPA, CMP #### [facility] [address] [place], [place] [phone] Jose Gita Monocytes/100 WBC (Bld) 8.7 % Normal 1.7-12.0 [facility] Comment on above: Performed By: #### L IPA, CMP #### [facility] [address] [place], [place] [phone] Jose Gita Neutrophils (Bld) [#/Vol] 5.2 103/ul Normal 1.4-6.5 [facility] Comment on above: Performed By: #### L IPA, CMP #### [facility] [address] [place], [place] [phone] Jose Gita Neutrophils/100 WBC (Bld) 59.2 % Normal 43.0-75.0 [facility] Comment on above: Performed By: #### L IPA, CMP #### [facility] [address] [place], [place] [phone] Jose Gita Platelet mean volume (Bld) [Entitic vol] 8.8 fL Critically low 9.5-13.5 [facility] Comment on above: Performed By: #### L IPA, CMP #### [facility] [address] [place], [place] [address] Josetripp Pelayo Platelets (Bld) [#/Vol] 401 103/ul Normal 150-450 [facility] Comment on above: Performed By: #### L IPA, CMP #### [facility] [address] [place] [address] Jose Gita RBC (Bld) [#/Vol] 3.90 106/ul Critically low 4.20-5.[address] [facility] Comment on above: Performed By: #### L IPA, CMP #### [facility] [address] [phone] Josetripp Pelayo WBC (Bld) [#/Vol] 8.7 103/ul Normal 4.0-11.0 [facility] Comment on above: Performed By: #### L IPA, CMP #### [facility] [address] [place], [place] [phone] Josetripp Pelayo D-DIMERon 05-23-2019 D-DIMER COMMENTS SEE BELOW Normal [facility] Comment on above: Result Comment: Incr [...] Performed By: #### L IPA, CMP #### [facility] [address] [place] [address] Josetripp Pelayo Fibrin D-dimer FEU IA (Bld) [Mass/Vol] 0.19 ug/mL Normal 0.19-0.50 [facility] Comment on above: Performed By: #### L IPA, CMP #### [facility] [address] [place] [address] Jose Gita PREG HCG QUALon 05-23-2019 , QUAL Negative Normal NEGATIVE [facility] Comment on above: Performed By: #### L IPA, CMP #### [facility] [address] [address] Jose Gita PROF CHEM 8 (BAS METB)on Anion gap [Moles/Vol] 10.9 mmol/L Normal [facility] Comment on above: Performed By: #### L IPA, CMP #### [facility] [address] [place] [address] Jose Gita Calcium [Mass/Vol] 9.3 mg/dL Normal 8.4-10.2 [facility] Comment on above: Performed By: #### L IPA, CMP #### [facility] [address] [address] Jose Gita Chloride [Moles/Vol] 104 mmol/L Normal 98-107 [facility] Comment on above: Performed By: #### L IPA, CMP #### [facility] [address] [place] [address] Jose Gita CO2 [Moles/Vol] 28.7 mmol/L Normal 22.0-30.0 [facility] Comment on above: Performed By: #### L IPA, CMP #### [facility] [address] [place] [address] Jose Gita Creatinine [Mass/Vol] 0.91 mg/dL Normal 0.52-1.04 [facility] Comment on above: Performed By: #### L IPA, CMP #### [facility] [address] [place] [address] Jose Gita EGFR-AF MEXICAN >60 Normal >=60 [facility] Comment on above: Performed By: #### L IPA, CMP #### [facility] [address] [address] Jose Gita EGFR-NON AF M[place]ICAN >60 Normal >=60 [facility] Comment on above: Performed By: #### L IPA, CMP #### [facility] [address] [place] [address] Jose Gita Glucose [Mass/Vol] 97 mg/dL Normal 74-106 [facility] Comment on above: Performed By: #### L IPA, CMP #### [facility] [address] [phone] Jose Gita Potassium [Moles/Vol] 3.6 mmol/L Normal 3.4-5.0 [facility] Comment on above: Performed By: #### L IPA, CMP #### [facility] [address] [phone] Jose Gita Sodium [Moles/Vol] 140 mmol/L Normal 137-145 [facility] Comment on above: Performed By: #### L IPA, CMP #### [facility] [address] [phone] Jose Gita Urea nitrogen [Mass/Vol] 10.0 mg/dL Normal 7.0-17.0 [facility] Comment on above: Performed By: #### L IPA, CMP #### [facility] [address] [phone] Jose Gita Urea nitrogen/Creatinine [Mass ratio] 11.0 mg/mg Normal [facility] Comment on above: Performed By: #### L IPA, CMP #### [facility] [address] [phone] Jose Gita PROTIMEon 05-23-2019 INR Coag (PPP) [Relative time] 1.03 {INR} Normal [facility] Comment on above: Performed By: #### L IPA, CMP #### [facility] [address] [place], [place] [phone] Jose Gita PT Coag (PPP) [Time] SEE BELOW Normal [facility] Comment on above: Result Comment: SELENE RED INR: 2.0 - 3.0 CONDITIONS NOT LISTED BELOW 2.5 - 3.5 FOR PROSTHETIC HEART VALVE REPLACEMENT 2.5 - 3.5 RECURRENT THROMBOSIS Performed By: #### L IPA, CMP #### [facility] [address] [place], [place] [id number] Jose Gita PT Coag (PPP) [Time] PLEASE NOTE: NORMAL RANGE CHANGE 05-20-2014 DUE TO REAGENT LOT CHANGE Normal [facility] Comment on above: Performed By: #### L IPA, CMP #### [facility] [address] [id number] Jose Gita PT Coag (PPP) [Time] 10.7 s Normal 9.0-11.6 [facility] Comment on above: Performed By: #### L IPA, CMP #### [facility] [address] [place], [place] [phone] Jose Pelayo PTTon 05-23-2019 aPTT Coag (Bld) [Time] 27.8 s Normal 22.3-36.2 [facility] Comment on above: Performed By: #### L IPA, CMP #### [facility] [address] [place], [place] [phone] Jose Gita aPTT Coag (Bld) [Time] PLEASE NOTE: NORMAL RANGE CHANGE 07-27-2015 DUE TO REAGENT LOT CHANGE Normal [facility] Comment on above: Performed By: #### L IPA, CMP #### [facility] [address] [place] [address] Jose Gita CBC AUTO DIFFon 12-28-2018 Basophils (Bld) [#/Vol] 0.1 103/ul Normal 0.0-0.1 [facility] Comment on above: Performed By: #### C BC #### [facility] [address] [place], [place] [phone] Jose Gita Basophils/100 WBC (Bld) 1.2 % Normal 0.2-2.0 [facility] Comment on above: Performed By: #### C BC #### [facility] [address] [place], [place] [phone] Jose Gita Eosinophils (Bld) [#/Vol] 0.2 103/ul Normal 0.0-0.7 [facility] Comment on above: Performed By: #### C BC #### [facility] [address] [place], [place] [phone] Jose Gita Eosinophils/100 WBC (Bld) 5.9 % Normal 0.9-7.0 [facility] Comment on above: Performed By: #### C BC #### [facility] [address] [place], [place] [phone] Jose Gita Erythrocyte distribution width (RBC) [Ratio] 13.7 % Normal 11.0-15.0 [facility] Comment on above: Performed By: #### C BC #### [facility] [address] [place] [address] Josetripp Pelayo Hematocrit (Bld) [Volume fraction] 36.3 % Normal 36.0-48.0 [facility] Comment on above: Performed By: #### C BC #### [facility] [address] [place], [place] [phone] Jose Gita Hemoglobin (Bld) [Mass/Vol] 12.1 g/dL Normal 12.0-16.0 [facility] Comment on above: Performed By: #### C BC #### [facility] [address] [place] [address] Josetripp Pelayo IG # 0.01 10e3/ul Normal 0.00-0.03 [facility] Comment on above: Performed By: #### C BC #### [facility] [address] [place] [address] Josetripp Pelayo IG % 0.2 % Normal 0.0-0.5 [facility] Comment on above: Performed By: #### C BC #### [facility] [address] [place] [address] Josetripp Pelayo Lymphocytes (Bld) [#/Vol] 1.2 103/ul Normal 1.2-3.8 [facility] Comment on above: Performed By: #### C BC #### [facility] [address] [place], [place] [phone] Jose Pelayo Lymphocytes/100 WBC (Bld) 30.3 % Normal 20.5-60.0 [facility] Comment on above: Performed By: #### C BC #### [facility] [address] [place], [place] [phone] Jose Pelayo MANUAL DIFF REQ NO Normal [facility] Comment on above: Performed By: #### C BC #### [facility] [address] [place], [place] [phone] Jose Pelayo MCH (RBC) [Entitic mass] 32.2 pg Normal 26.7-34.0 [facility] Comment on above: Performed By: #### C BC #### [facility] [address] [place], [place] [address] Jose Gita MCHC (RBC) [Mass/Vol] 33.3 g/dL Normal 29.9-35.2 [facility] Comment on above: Performed By: #### C BC #### [facility] [address] [place], [place] [address] Jose Gita MCV (RBC) [Entitic vol] 96.5 fL Normal 81.0-99.0 [facility] Comment on above: Performed By: #### C BC #### [facility] [address] [place], [place] [address] Jose Gita Monocytes (Bld) [#/Vol] 0.4 103/ul Normal 0.3-0.8 [facility] Comment on above: Performed By: #### C BC #### [facility] [address] [place], [place] [address] Jose Gita Monocytes/100 WBC (Bld) 9.4 % Normal 1.7-12.0 [facility] Comment on above: Performed By: #### C BC #### [facility] [address] [place], [place] [address] Jose Gita Neutrophils (Bld) [#/Vol] 2.2 103/ul Normal 1.4-6.5 [facility] Comment on above: Performed By: #### C BC #### [facility] [address] [place], [place] [address] Jose Gita Neutrophils/100 WBC (Bld) 53.0 % Normal 43.0-75.0 [facility] Comment on above: Performed By: #### C BC #### [facility] [address] [place], [place] [address] Jose Gita Platelet mean volume (Bld) [Entitic vol] 8.6 fL Critically low 9.5-13.5 [facility] Comment on above: Performed By: #### C BC #### [facility] [address] [place], [place] [address] Jose Gita Platelets (Bld) [#/Vol] 279 103/ul Normal 150-450 [facility] Comment on above: Performed By: #### C BC #### [facility] [address] [id number] Jose Gita RBC (Bld) [#/Vol] 3.76 106/ul Critically low 4.20-5.[address] [facility] Comment on above: Performed By: #### C BC #### [facility] [address] [phone] Jose Gita WBC (Bld) [#/Vol] 4.1 103/ul Normal 4.0-11.0 [facility] Comment on above: Performed By: #### C BC #### [facility] [address] [place], [place] [phone] Josetripp Cabanen PROF CHEM 8 (BAS METB)on Anion gap [Moles/Vol] 10.6 mmol/L Normal [facility] Comment on above: Performed By: #### B MP #### [facility] [address] [place] [address] Jose Gita Calcium [Mass/Vol] 8.1 mg/dL Critically low 8.4-10.[address] [facility] Comment on above: Performed By: #### B MP #### [facility] [address] [place] [address] Jose Gita Chloride [Moles/Vol] 111 mmol/L Critically high 98-107 [facility] Comment on above: Performed By: #### B MP #### [facility] [address] [place], [place] [phone] Jose Gita CO2 [Moles/Vol] 24.7 mmol/L Normal 22.0-30.0 [facility] Comment on above: Performed By: #### B MP #### [facility] [address] [place], [place] [phone] Jose Gita Creatinine [Mass/Vol] 0.80 mg/dL Normal 0.52-1.04 [facility] Comment on above: Performed By: #### B MP #### [facility] [address] [place], [place] [phone] Jose Gita EGFR-AF MEXICAN >60 Normal >=60 [facility] Comment on above: Performed By: #### B MP #### [facility] [address] [place], [place] [address] Jose Gita EGFR-NON AF MEXICAN >60 Normal >=60 [facility] Comment on above: Performed By: #### B MP #### [facility] [address] [phone] Jose Gita Glucose [Mass/Vol] 93 mg/dL Normal 74-106 [facility] Comment on above: Performed By: #### B MP #### [facility] [address] [address] Jose Gita Potassium [Moles/Vol] 4.3 mmol/L Normal 3.4-5.0 [facility] Comment on above: Performed By: #### B MP #### [facility] [address] [place] [address] Jose Gita Sodium [Moles/Vol] 142 mmol/L Normal 137-145 [facility] Comment on above: Performed By: #### B MP #### [facility] [address] [place] [address] Jose Gita Urea nitrogen [Mass/Vol] 6.0 mg/dL Critically low 7.0-17.0 [facility] Comment on above: Performed By: #### B MP #### [facility] [address] [place], [place] [phone] Jose Gita Urea nitrogen/Creatinine [Mass ratio] 7.5 mg/mg Normal [facility] Comment on above: Performed By: #### B MP #### [facility] [address] [place], [place] [phone] Jose Gita CBC AUTO DIFFon 12-27-2018 Basophils (Bld) [#/Vol] 0.0 103/ul Normal 0.0-0.1 [facility] Comment on above: Performed By: #### C BC #### [facility] [address] [place], [place] [phone] Jose Gita Basophils/100 WBC (Bld) 0.4 % Normal 0.2-2.0 [facility] Comment on above: Performed By: #### C BC #### [facility] [address] [place], [place] [phone] Jose Gita Eosinophils (Bld) [#/Vol] 0.1 103/ul Normal 0.0-0.7 [facility] Comment on above: Performed By: #### C BC #### [facility] [address] [place], [place] [phone] Jose Gita Eosinophils/100 WBC (Bld) 1.3 % Normal 0.9-7.0 [facility] Comment on above: Performed By: #### C BC #### [facility] [address] [place], [place] [phone] Jose Gita Erythrocyte distribution width (RBC) [Ratio] 13.4 % Normal 11.0-15.0 [facility] Comment on above: Performed By: #### C BC #### [facility] [address] [place] [address] Jose Gita Hematocrit (Bld) [Volume fraction] 37.0 % Normal 36.0-48.0 [facility] Comment on above: Performed By: #### C BC #### [facility] [address] [place], [place] [phone] Jose Gita Hemoglobin (Bld) [Mass/Vol] 12.9 g/dL Normal 12.0-16.0 [facility] Comment on above: Result Comment: repe ated slide reviewed ts Performed By: #### C BC #### [facility] [address] [place] [address] Jose Gita IG # 0.02 10e3/ul Normal 0.00-0.03 [facility] Comment on above: Performed By: #### C BC #### [facility] [address] [place], [place] [phone] Joes Gita IG % 0.3 % Normal 0.0-0.5 [facility] Comment on above: Performed By: #### C BC #### [facility] [address] [place], [place] [phone] Jose Gita Lymphocytes (Bld) [#/Vol] 0.7 103/ul Critically low 1.2-3.8 [facility] Comment on above: Performed By: #### C BC #### [facility] [address] [place], [place] [address] Jose Gita Lymphocytes/100 WBC (Bld) 9.2 % Critically low 20.5-60.0 [facility] Comment on above: Performed By: #### C BC #### [facility] [address] [place], [place] [address] Jose Gita MANUAL DIFF REQ NO Normal [facility] Comment on above: Performed By: #### C BC #### [facility] [address] [place], [place] [address] Jose Gita MCH (RBC) [Entitic mass] 32.4 pg Normal 26.7-34.0 [facility] Comment on above: Performed By: #### C BC #### [facility] [address] [place] [address] Jose Gita MCHC (RBC) [Mass/Vol] 34.9 g/dL Normal 29.9-35.2 [facility] Comment on above: Performed By: #### C BC #### [facility] [address] [place], [place] [address] Jose Gita MCV (RBC) [Entitic vol] 93.0 fL Normal 81.0-99.0 [facility] Comment on above: Performed By: #### C BC #### [facility] [address] [place], [place] [address] Jose Gita Monocytes (Bld) [#/Vol] 0.3 103/ul Normal 0.3-0.8 [facility] Comment on above: Performed By: #### C BC #### [facility] [address] [place], [place] [address] Jose Gita Monocytes/100 WBC (Bld) 3.6 % Normal 1.7-12.0 [facility] Comment on above: Performed By: #### C BC #### [facility] [address] [place], [place] [address] Jose Gita Neutrophils (Bld) [#/Vol] 6.4 103/ul Normal 1.4-6.5 [facility] Comment on above: Performed By: #### C BC #### [facility] [address] [place], [place] [phone] Jose Pelayo Neutrophils/100 WBC (Bld) 85.2 % Critically high 43.0-75.0 [facility] Comment on above: Performed By: #### C BC #### [facility] [address] [place], [place] [phone] Jose Pelayo Platelet mean volume (Bld) [Entitic vol] 8.7 fL Critically low 9.5-13.5 [facility] Comment on above: Performed By: #### C BC #### [facility] [address] [place], [place] [phone] Jose Pelayo Platelets (Bld) [#/Vol] 401 103/ul Normal 150-450 [facility] Comment on above: Performed By: #### C BC #### [facility] [address] [place] [address] Jose Pelayo RBC (Bld) [#/Vol] 3.98 106/ul Critically low 4.20-5.[address] [facility] Comment on above: Performed By: #### C BC #### [facility] [address] [place], [place] [phone] Jose Pelayo WBC (Bld) [#/Vol] 7.5 103/ul Normal 4.0-11.0 [facility] Comment on above: Performed By: #### C BC #### [facility] [address] [place] [address] Josetripp Cabanen POTASSIUMon 12-27-2018 Potassium [Moles/Vol] 3.9 mmol/L Normal 3.4-5.0 [facility] Comment on above: Performed By: #### K #### [facility] [address] [place], [place] [phone] Jose Pelayo PROF 14(COMP METB)on 019 Albumin [Mass/Vol] 3.2 g/dL Critically low 3.5-5.[address] [facility] Comment on above: Performed By: #### C MP #### [facility] [address] [place], [place] [phone] Jose Gita Albumin/Globulin [Mass ratio] 1.1 {ratio} Normal [facility] Comment on above: Performed By: #### C MP #### [facility] [address] [place], [place] [phone] Jose Gita ALP [Catalytic activity/Vol] 50 U/L Normal 38-126 [facility] Comment on above: Performed By: #### C MP #### [facility] [address] [phone] Jose Gita ALT [Catalytic activity/Vol] 60 U/L Critically high 9-52 [facility] Comment on above: Performed By: #### C MP #### [facility] [address] [place], [place] [phone] Jose Gita Anion gap [Moles/Vol] 8.7 mmol/L Normal [facility] Comment on above: Performed By: #### C MP #### [facility] [address] [place] [address] Jose Gita AST [Catalytic activity/Vol] 41 U/L Critically high 14-36 [facility] Comment on above: Performed By: #### C MP #### [facility] [address] [place], [place] [phone] Jose Gita Bilirubin Ql (U) 0.5 mg/dL Normal 0.2-1.3 [facility] Comment on above: Performed By: #### C MP #### [facility] [address] [place], [place] [phone] Jose Gita Calcium [Mass/Vol] 7.7 mg/dL Critically low 8.4-10.[address] [facility] Comment on above: Performed By: #### C MP #### [facility] [address] [place], [place] [phone] Jose Gita Chloride [Moles/Vol] 107 mmol/L Normal 98-107 [facility] Comment on above: Performed By: #### C MP #### [facility] [address] [place], [place] [phone] Jose Gita CO2 [Moles/Vol] 27.1 mmol/L Normal 22.0-30.0 [facility] Comment on above: Performed By: #### C MP #### [facility] [address] [place], [place] [address] Jose Gita Creatinine [Mass/Vol] 0.93 mg/dL Normal 0.52-1.04 [facility] Comment on above: Performed By: #### C MP #### [facility] [address] [place], [place] [address] Jose Gita EGFR-AF MEXICAN >60 Normal >=60 [facility] Comment on above: Performed By: #### C MP #### [facility] [address] [place], [place] [address] Jose Gita EGFR-NON AF MEXICAN >60 Normal >=60 [facility] Comment on above: Performed By: #### C MP #### [facility] [address] [place] [address] Jose Gita Globulin (S) [Mass/Vol] 3.0 g/dL Normal [facility] Comment on above: Performed By: #### C MP #### [facility] [address] [address] Jose Gita Glucose [Mass/Vol] 114 mg/dL Critically high 74-106 [facility] Comment on above: Performed By: #### C MP #### [facility] [address] [place], [place] [address] Jose Gita Potassium [Moles/Vol] 2.8 mmol/L Critically low 3.4-5.0 [facility] Comment on above: Result Comment: test repeated critical value verified Performed By: #### C MP #### [facility] [address] [place], [place] [address] Jose Gita Protein [Mass/Vol] 6.2 g/dL Normal 6.1-8.2 [facility] Comment on above: Performed By: #### C MP #### [facility] [address] [phone] Jose Gita Sodium [Moles/Vol] 141 mmol/L Normal 137-145 [facility] Comment on above: Performed By: #### C MP #### [facility] [address] [place], [place] [address] Jose Gita Urea nitrogen [Mass/Vol] 16.0 mg/dL Normal 7.0-17.0 [facility] Comment on above: Performed By: #### C MP #### [facility] [address] [place], [place] [address] Jose Gita Urea nitrogen/Creatinine [Mass ratio] 17.2 mg/mg Normal [facility] Comment on above: Performed By: #### C MP #### [facility] [address] [place], [place] [address] Jose Gita XR ABD FLAT UP/PA Natalya 12-27 XR ABD FLAT UP/PA CH Patient: LINDA ALVARADO Exam Date: 12/26/2018 : 1975 Gender:F Ordering : DR. NICHOLAS BOLTON . Admission #: [id number] Family : Order #: [id number] CLICK HERE TO VIEW EXAM RADIOLOGY REPORT [...] Nicolas M.D. on 12/27/2018 at 07:37 Normal [facility] CBC AUTO DIFFon 12-26-2018 Basophils (Bld) [#/Vol] 0.1 103/ul Normal 0.0-0.1 [facility] Comment on above: Performed By: #### C BC #### [facility] [address] [phone] Jose Gita Basophils/100 WBC (Bld) 0.7 % Normal 0.2-2.0 [facility] Comment on above: Performed By: #### C BC #### [facility] [address] [phone] Jose Gita Eosinophils (Bld) [#/Vol] 0.3 103/ul Normal 0.0-0.7 [facility] Comment on above: Performed By: #### C BC #### [facility] [address] [place], [place] [phone] Jose Gita Eosinophils/100 WBC (Bld) 2.2 % Normal 0.9-7.0 [facility] Comment on above: Performed By: #### C BC #### [facility] [address] [place], [place] [phone] Jose Gita Erythrocyte distribution width (RBC) [Ratio] 13.5 % Normal 11.0-15.0 [facility] Comment on above: Performed By: #### C BC #### [facility] [address] [place] [address] Jose Gita Hematocrit (Bld) [Volume fraction] 46.0 % Normal 36.0-48.0 [facility] Comment on above: Performed By: #### C BC #### [facility] [address] [place], [place] [phone] Jose Gita Hemoglobin (Bld) [Mass/Vol] 15.7 g/dL Normal 12.0-16.0 [facility] Comment on above: Performed By: #### C BC #### [facility] [address] [place], [place] [phone] Jose Gita IG # 0.05 10e3/ul Critically high 0.00-0.03 [facility] Comment on above: Performed By: #### C BC #### [facility] [address] [place] [address] Jose Gita IG % 0.4 % Normal 0.0-0.5 [facility] Comment on above: Performed By: #### C BC #### [facility] [address] [place], [place] [phone] Jose Gita Lymphocytes (Bld) [#/Vol] 1.0 103/ul Critically low 1.2-3.8 [facility] Comment on above: Performed By: #### C BC #### [facility] [address] [place], [place] [address] Jose Gita Lymphocytes/100 WBC (Bld) 8.8 % Critically low 20.5-60.0 [facility] Comment on above: Performed By: #### C BC #### [facility] [address] [place], [place] [address] Jose Gita MANUAL DIFF REQ NO Normal [facility] Comment on above: Performed By: #### C BC #### [facility] [address] [place], [place] [address] Jose Gita MCH (RBC) [Entitic mass] 31.7 pg Normal 26.7-34.0 [facility] Comment on above: Performed By: #### C BC #### [facility] [address] [place], [place] [address] Jose Gita MCHC (RBC) [Mass/Vol] 34.1 g/dL Normal 29.9-35.2 [facility] Comment on above: Performed By: #### C BC #### [facility] [address] [place], [place] [address] Jose Gita MCV (RBC) [Entitic vol] 92.9 fL Normal 81.0-99.0 [facility] Comment on above: Performed By: #### C BC #### [facility] [address] [place], [place] [address] Jose Gita Monocytes (Bld) [#/Vol] 0.3 103/ul Normal 0.3-0.8 [facility] Comment on above: Performed By: #### C BC #### [facility] [address] [place] [address] Jose Gita Monocytes/100 WBC (Bld) 2.8 % Normal 1.7-12.0 [facility] Comment on above: Performed By: #### C BC #### [facility] [address] [place], [place] [address] Jose Gita Neutrophils (Bld) [#/Vol] 9.8 103/ul Critically high 1.4-6.5 [facility] Comment on above: Performed By: #### C BC #### [facility] [address] [place], [place] [phone] Jose Pelayo Neutrophils/100 WBC (Bld) 85.1 % Critically high 43.0-75.0 [facility] Comment on above: Performed By: #### C BC #### [facility] [address] [place] [address] Jose Pelayo Platelet mean volume (Bld) [Entitic vol] 8.6 fL Critically low 9.5-13.5 [facility] Comment on above: Performed By: #### C BC #### [facility] [address] [place], [place] [phone] Jose Pelayo Platelets (Bld) [#/Vol] 543 103/ul Critically high 150-450 [facility] Comment on above: Performed By: #### C BC #### [facility] [address] [place], [place] [phone] Jose Pelayo RBC (Bld) [#/Vol] 4.95 106/ul Normal 4.20-5.40 [facility] Comment on above: Performed By: #### C BC #### [facility] [address] [place], [place] [phone] Jose Pelayo WBC (Bld) [#/Vol] 11.5 103/ul Critically high 4.0-11.0 [facility] Comment on above: Performed By: #### C BC #### [facility] [address] [place], [place] [id number] Jose Pelayo LIPASEon 12-26-2018 Lipase [Catalytic activity/Vol] 186.0 U/L Normal 23.0-300.0 [facility] Comment on above: Performed By: #### L IPA, CMP #### [facility] [address] [place], [place] [id number] Jose Pelayo PROF 14(COMP METB)on 019 Albumin [Mass/Vol] 4.5 g/dL Normal 3.5-5.0 [facility] Comment on above: Performed By: #### L IPA, CMP #### [facility] [address] [place], [place] [id number] Jose Gita Albumin/Globulin [Mass ratio] 1.2 {ratio} Normal [facility] Comment on above: Performed By: #### L IPA, CMP #### [facility] [address] [address] Jose Gita ALP [Catalytic activity/Vol] 65 U/L Normal 38-126 [facility] Comment on above: Performed By: #### L IPA, CMP #### [facility] [address] [address] Jose Gita ALT [Catalytic activity/Vol] 75 U/L Critically high 9-52 [facility] Comment on above: Performed By: #### L IPA, CMP #### [facility] [address] [address] Jose Gita Anion gap [Moles/Vol] 10.7 mmol/L Normal [facility] Comment on above: Performed By: #### L IPA, CMP #### [facility] [address] [address] Jose Gita AST [Catalytic activity/Vol] 51 U/L Critically high 14-36 [facility] Comment on above: Performed By: #### L IPA, CMP #### [facility] [address] [address] Jose Gita Bilirubin Ql (U) 0.6 mg/dL Normal 0.2-1.3 [facility] Comment on above: Performed By: #### L IPA, CMP #### [facility] [address] [address] Jose Gita Calcium [Mass/Vol] 9.3 mg/dL Normal 8.4-10.2 [facility] Comment on above: Performed By: #### L IPA, CMP #### [facility] [address] [id number] Jose Gita Chloride [Moles/Vol] 103 mmol/L Normal 98-107 [facility] Comment on above: Performed By: #### L IPA, CMP #### [facility] [address] [address] Jose Gita CO2 [Moles/Vol] 28.8 mmol/L Normal 22.0-30.0 [facility] Comment on above: Performed By: #### L IPA, CMP #### [facility] [address] [id number] Jose Gita Creatinine [Mass/Vol] 1.03 mg/dL Normal 0.52-1.04 [facility] Comment on above: Performed By: #### L IPA, CMP #### [facility] [address] [id number] Jose Gita EGFR-AF MEXICAN >60 Normal >=60 [facility] Comment on above: Performed By: #### L IPA, CMP #### [facility] [address] [id number] Jose Gita EGFR-NON AF MEXICAN 59 mL/min/1.73m2 Critically low >=60 [facility] Comment on above: Performed By: #### L IPA, CMP #### [facility] [address] [phone] Jose Gita Globulin (S) [Mass/Vol] 3.7 g/dL Normal [facility] Comment on above: Performed By: #### L IPA, CMP #### [facility] [address] [phone] Jose Gita Glucose [Mass/Vol] 114 mg/dL Critically high 74-106 [facility] Comment on above: Performed By: #### L IPA, CMP #### [facility] [address] [phone] Jose Gita Potassium [Moles/Vol] 3.5 mmol/L Normal 3.4-5.0 [facility] Comment on above: Performed By: #### L IPA, CMP #### [facility] [address] [phone] Jose Gita Protein [Mass/Vol] 8.2 g/dL Normal 6.1-8.2 [facility] Comment on above: Performed By: #### L IPA, CMP #### [facility] [address] [phone] Jose Gita Sodium [Moles/Vol] 139 mmol/L Normal 137-145 [facility] Comment on above: Performed By: #### L IPA, CMP #### [facility] [address] [place], [place] [address] Jose Pelayo Urea nitrogen [Mass/Vol] 15.0 mg/dL Normal 7.0-17.0 [facility] Comment on above: Performed By: #### L IPA, CMP #### [facility] [address] [place], [place] [address] Jose Pelayo Urea nitrogen/Creatinine [Mass ratio] 14.6 mg/mg Normal [facility] Comment on above: Performed By: #### L IPA, CMP #### [facility] [address] [place], [place] [address] Jose Pelayo Vital Signs Date Time Vital Sign Value Performing Clinician Facility 06-03-2024 15:39-0400 Body height 152.4 cm Gita Hemmer PA Work Phone: [facility] 06-03-2024 15:39-0400 Body mass index (BMI) [Ratio] 38.28 kg/m2 Gita Hemmer PA Work Phone: [facility] 06-03-2024 15:39-0400 Body weight 88.91 kg Gita Hemmer PA Work Phone: [facility] 06-03-2024 15:39-0400 Diastolic blood pressure 64 mm[Hg] Gita Hemmer PA Work Phone: [facility] 06-03-2024 15:39-0400 Heart rate 85 /min Gita Hemmer PA Work Phone: [facility] 06-03-2024 15:39-0400 Respiratory rate 17 /min Gita Hemmer PA Work Phone: [facility] 06-03-2024 15:39-0400 SaO2% (BldA) [Mass fraction] 98 % Gita Hemmer PA Work Phone: [facility] 06-03-2024 15:39-0400 Systolic blood pressure 128 mm[Hg] Gita Hemmer PA Work Phone: [facility] 01-30-2024 09:26-0400 Body height 152.4 cm [facility] 01-30-2024 09:26-0400 Body mass index (BMI) [Ratio] 38.7 kg/m2 [facility] 01-30-2024 09:26-0400 Body weight 89.81 kg [facility] 01-30-2024 09:26-0400 Diastolic blood pressure 85 mm[Hg] [facility] 01-30-2024 09:26-0400 Heart rate 97 /min [facility] 01-30-2024 09:26-0400 SaO2% (BldA) [Mass fraction] 97 % [facility] 01-30-2024 09:26-0400 Systolic blood pressure 142 mm[Hg] [facility] 01-09-2024 15:16-0400 Body height 152.4 cm [facility] 01-09-2024 15:16-0400 Body mass index (BMI) [Ratio] 37.8 kg/m2 [facility] 01-09-2024 15:16-0400 Body temperature 97.7 [degF] [facility] 01-09-2024 15:16-0400 Body weight 87.99 kg [facility] 01-09-2024 15:16-0400 Diastolic blood pressure 80 mm[Hg] [facility] 01-09-2024 15:16-0400 Heart rate 90 /min [facility] 01-09-2024 15:16-0400 Respiratory rate 18 /min [facility] 01-09-2024 15:16-0400 SaO2% (BldA) [Mass fraction] 99 % [facility] 01-09-2024 15:16-0400 Systolic blood pressure 131 mm[Hg] [facility] 12-25-2023 17:21-0400 Body height 152.4 cm [facility] 12-25-2023 17:21-0400 Body mass index (BMI) [Ratio] 30.2 kg/m2 [facility] 12-25-2023 17:21-0400 Body temperature 98.3 [degF] [facility] 12-25-2023 17:21-0400 Body weight 70.3 kg [facility] 12-25-2023 17:21-0400 Heart rate 96 /min [facility] 12-25-2023 17:21-0400 Respiratory rate 18 /min [facility] 12-25-2023 17:21-0400 SaO2% (BldA) [Mass fraction] 96 % [facility] 10-04-2023 08:09-0500 Body mass index (BMI) [Ratio] 37.07 kg/m2 Gita Hemmer PA Work Phone: [facility] 10-04-2023 08:09-0500 Body weight 86.09 kg Gita Hemmer PA Work Phone: [facility] 10-04-2023 08:09-0500 Diastolic blood pressure 75 mm[Hg] Gita Hemmer PA Work Phone: [facility] 10-04-2023 08:09-0500 Heart rate 94 /min Gita Hemmer PA Work Phone: [facility] 10-04-2023 08:09-0500 Respiratory rate 14 /min Gita Hemmer PA Work Phone: [facility] 10-04-2023 08:09-0500 SaO2% (BldA) [Mass fraction] 95 % Gita Hemmer PA Work Phone: [facility] 10-04-2023 08:09-0500 Systolic blood pressure 140 mm[Hg] Gita Hemmer PA Work Phone: [facility] 08-01-2023 08:30-0500 Body height 152.4 cm Jane Waller Other [employer] Other 04-02-2023 11:15-0400 Body height 152.4 cm Jane Waller Other [employer] Other 04-02-2023 11:15-0400 Body mass index (BMI) [Ratio] 36.71 kg/m2 Jane Waller Other [facility] Other 04-02-2023 11:15-0400 Body weight 85.28 kg Jane Waller Other [employer] Other 04-02-2023 11:15-0400 Diastolic blood pressure 82 mm[Hg] Jane Waller Other [employer] Other 04-02-2023 11:15-0400 SaO2% (BldA) [Mass fraction] 98 % Jane Sridhar Other [employer] Other 04-02-2023 11:15-0400 Systolic blood pressure 143 mm[Hg] Jane Sridhar Other [employer] Other 02-06-2023 08:45-0400 Body height 152.4 cm Jane Sridhar Other [employer] Other 02-06-2023 08:45-0400 Diastolic blood pressure 79 mm[Hg] Jane Sridhar Other [employer] Other 02-06-2023 08:45-0400 SaO2% (BldA) [Mass fraction] 96 % Jane Sridhar Other [facility] Other 02-06-2023 08:45-0400 Systolic blood pressure 118 mm[Hg] Jane Sridhar Other [employer] Other 03-19-2022 10:00-0400 Body height 152.4 cm Ciera Mcwilliams Other [employer] Other 03-19-2022 10:00-0400 Body mass index (BMI) [Ratio] 35.74 kg/m2 Ciera Mcwilliams Other [employer] Other 03-19-2022 10:00-0400 Body temperature 96.8 [degF] Ciera Poppy Other [employer] Other 03-19-2022 10:00-0400 Body weight 83.01 kg Ciera Poppy Other [employer] Other 03-19-2022 10:00-0400 Diastolic blood pressure 89 mm[Hg] Ciera Poppy Other [employer] Other 03-19-2022 10:00-0400 Respiratory rate 20 /min Ciera Poppy Other [employer] Other 03-19-2022 10:00-0400 SaO2% (BldA) [Mass fraction] 98 % Ciera Poppy Other [employer] Other 03-19-2022 10:00-0400 Systolic blood pressure 142 mm[Hg] Ciera Poppy Other [employer] Other 02-22-2022 11:00-0400 Body height 152.4 cm Jane Waller Other [employer] Other 02-22-2022 11:00-0400 Body mass index (BMI) [Ratio] 35.93 kg/m2 Jane Waller Other [employer] Other 02-22-2022 11:00-0400 Body temperature 97.7 [degF] Jane Waller Other [employer] Other 02-22-2022 11:00-0400 Body weight 83.46 kg Jane Waller Other [employer] Other 02-22-2022 11:00-0400 Diastolic blood pressure 82 mm[Hg] Jane Waller Other [employer] Other 02-22-2022 11:00-0400 SaO2% (BldA) [Mass fraction] 98 % Jane Waller Other [employer] Other 02-22-2022 11:00-0400 Systolic blood pressure 122 mm[Hg] Jane Waller Other [employer] Other 08-22-2021 16:30-0500 Body height 152.4 cm Jane Waller Other [employer] Other 08-22-2021 16:30-0500 Body mass index (BMI) [Ratio] 37.2 kg/m2 Jane Waller Other [employer] Other 08-22-2021 16:30-0500 Body temperature 97.5 [degF] Jane Waller Other [employer] Other 08-22-2021 16:30-0500 Body weight 86.41 kg Jane Waller Other [employer] Other 08-22-2021 16:30-0500 Diastolic blood pressure 83 mm[Hg] Jane Waller Other [employer] Other 08-22-2021 16:30-0500 SaO2% (BldA) [Mass fraction] 97 % Jane Waller Other [employer] Other 08-22-2021 16:30-0500 Systolic blood pressure 141 mm[Hg] Jane Waller Other [employer] Other 08-19-2021 10:20-0500 Body height 152.4 cm Tracy Oliver Other [employer] Other 08-19-2021 10:20-0500 Body mass index (BMI) [Ratio] 36.52 kg/m2 Tracy Oliver Other [employer] Other 08-19-2021 10:20-0500 Body temperature 97.9 [degF] Tracy Oliver Other [employer] Other 08-19-2021 10:20-0500 Body weight 84.82 kg Tracy Oliver Other [employer] Other 08-19-2021 10:20-0500 Diastolic blood pressure 80 mm[Hg] Tracy Oliver Other [employer] Other 08-19-2021 10:20-0500 Respiratory rate 18 /min Tracy Oliver Other [employer] Other 08-19-2021 10:20-0500 SaO2% (BldA) [Mass fraction] 100 % Tracy Oliver Other [employer] Other 08-19-2021 10:20-0500 Systolic blood pressure 146 mm[Hg] Tracy Oliver Other [employer] Other 06-01-2021 09:30-0400 Body height 152.4 cm Jane Waller Other [employer] Other Encounters Encounter Date Encounter Type Care Provider Facility Start: 06-13-2024 End: 06-15-2024 Telephone encounter Gita HUSAIN Work Phone: [facility] Start: 06-03-2024 End: 06-03-2024 Office outpatient visit 25 minutes Gita Garcia PA Work Phone: [facility] Comment on above: Ankle edema (Primary Dx); Hypokalemia; Peroneal tendinitis of left lower extremity; Peroneal tendinitis of right lower extremity; Obesity (BMI 30-39.9); Abnormal electrocardiogram; Family history of heart disease; Venous insufficiency Start: 06-03-2024 End: 06-03-2024 ambulatory GITA GARCIA Not Available Start: 05-28-2024 End: 05-28-2024 ambulatory TREVER WARNER Not Available Start: 05-20-2024 End: 05-20-2024 ambulatory II Elver Mendenhall Work Phone: [facility] Work Phone: Start: 05-20-2024 End: 05-20-2024 Departed Referred II Elver Mendenhall Work Phone: [facility] Work Phone: Start: 05-19-2024 End: 05-19-2024 Patient encounter procedure II Elver Mendenhall Work Phone: [facility] Work Phone: Start: 05-19-2024 End: 05-20-2024 ambulatory II Elver Mendenhall Work Phone: [facility] Work Phone: Start: 05-14-2024 End: 05-14-2024 ambulatory TREVER WARNER Not Available Start: 05-13-2024 End: 05-13-2024 ambulatory GITA GARCIA Not Available Start: 03-04-2024 End: 03-04-2024 ambulatory SEB KITCHEN Not Available Start: 01-30-2024 End: 01-30-2024 ambulatory [facility] Work Phone: Start: 01-30-2024 End: 01-30-2024 Patient encounter procedure [facility] Work Phone: Start: 01-09-2024 End: 01-09-2024 ambulatory [facility] Work Phone: Start: 01-09-2024 End: 01-09-2024 Patient encounter procedure [facility] [place] Work Phone: Start: 12-25-2023 End: 12-25-2023 ambulatory [facility] Work Phone: Start: 12-25-2023 End: 12-25-2023 Patient encounter procedure [facility] [place] Work Phone: Start: 10-14-2023 End: 10-14-2023 Office outpatient visit 15 minutes Lubna Lawrence RN [employer] [facility] Work Phone: [facility] Comment on above: Nevus; Perioral dermatitis Start: 10-14-2023 End: 10-14-2023 ambulatory LUBNA LAWRENCE Not Available Start: 10-10-2023 End: 10-10-2023 ambulatory Jane Waller Other [facility] [employer] Other Start: 10-10-2023 Telephone encounter Jane Waller [facility] Start: 10-04-2023 Chart abstracting Gita HUSAIN Work Phone: [facility] Start: 10-04-2023 End: 10-04-2023 Patient encounter status Gita HUSAIN Work Phone: [facility] Work Phone: Start: 10-04-2023 End: 10-04-2023 Periodic preventive med est patient 40-64yrs Gita HUSAIN Work Phone: [facility] Comment on above: Wellness examination (Primary Dx); [...] gain Start: 10-04-2023 End: 10-04-2023 ambulatory GITA Segura RADHA Not Available Start: 09-05-2023 End: 09-05-2023 ambulatory Jane Waller Other [employer] Other Start: 09-05-2023 Telephone encounter Jane Waller [facility] Start: 08-01-2023 Office outpatient vi sit 25 minutes Jane Waller [facility] Start: 08-01-2023 End: 08-01-2023 Patient encounter procedure II Elver Mendenhall Work Phone: [facility] Work Phone: Start: 08-01-2023 End: 08-01-2023 ambulatory II Elver Mendenhall Work Phone: [employer] Other Start: 07-30-2023 End: 07-30-2023 ambulatory Ciera Poppy Other [employer] Other Start: 07-30-2023 Office outpatient vi sit 25 minutes Ciera Poppy [facility] Start: 07-16-2023 End: 07-16-2023 ambulatory Ciera Poppy Other [employer] Other Start: 07-16-2023 Telephone encounter Ciera Poppy [facility] Start: 07-15-2023 End: 07-15-2023 ambulatory GITA GARCIA Not Available Start: 06-13-2023 End: 06-13-2023 ambulatory Jane Waller Other [employer] Other Start: 06-13-2023 Telephone encounter Jane Song [facility] Start: 06-03-2023 End: 06-03-2023 ambulatory Jane Waller Other [employer] Other Start: 06-03-2023 Telephone encounter Jane Waller [facility] Start: 04-02-2023 Office outpatient vi sit 25 minutes Jane Sridhar [facility] Start: 04-02-2023 End: 04-02-2023 ambulatory II Elver Mendenhall Work Phone: [employer] Other Start: 04-02-2023 End: 04-02-2023 Patient encounter procedure II Elver Mendenhall Work Phone: [facility] Work Phone: Start: 03-11-2023 End: 03-11-2023 ambulatory Efraín Patel Other [employer] Other Start: 03-11-2023 Telephone encounter Efrían Patel [facility] Start: 02-06-2023 Office outpatient vi sit 25 minutes Jane Waller [facility] Start: 02-06-2023 End: 02-06-2023 ambulatory II Elver Mendenhall Work Phone: [employer] Other Start: 02-06-2023 End: 02-06-2023 Patient encounter procedure II Elver Mendenhall Work Phone: [facility] Work Phone: Start: 11-22-2022 End: 11-22-2022 ambulatory Jane Waller Other [employer] Other Start: 11-22-2022 Telephone encounter Jane Waller [facility] Start: 08-28-2022 End: 08-28-2022 ambulatory Jane Waller Other [employer] Other Start: 08-28-2022 Telephone encounter Jane Waller [facility] Start: 07-03-2022 End: 07-03-2022 Patient encounter procedure II Elver Mendenhall Work Phone: [facility] Start: 07-03-2022 End: 07-03-2022 ambulatory II Elver Mendenhall Work Phone: [facility] Work Phone: Start: 07-03-2022 Office outpatient vi sit 25 minutes Jane Waller [facility] Start: 05-24-2022 End: 05-24-2022 ambulatory Jane Waller Other [employer] Other Start: 05-24-2022 Telephone encounter Jane Waller [facility] Start: 03-19-2022 End: 03-19-2022 ambulatory Ciera Poppy Other [employer] Other Start: 03-19-2022 Office outpatient vi sit 25 minutes Ciera Poppy [facility] Start: 02-23-2022 End: 02-23-2022 ambulatory Jane Waller Other [employer] Other Start: 02-23-2022 Telephone encounter Jane Waller [facility] Start: 02-22-2022 End: 02-22-2022 ambulatory Jane Waller Other [employer] Other Start: 02-22-2022 Office outpatient vi sit 25 minutes Jane Waller [facility] Start: 11-24-2021 End: 11-24-2021 ambulatory Jane Waller Other [employer] Other Start: 11-24-2021 Telephone encounter Jane Waller [facility] Start: 09-08-2021 End: 09-08-2021 ambulatory Jane Waller Other [employer] Other Start: 09-08-2021 Telephone encounter Ciera Poppy [facility] Start: 08-22-2021 End: 08-22-2021 ambulatory Jane Waller Other [employer] Other Start: 08-22-2021 Office outpatient vi sit 25 minutes Jane Waller [facility] Start: 08-19-2021 End: 08-19-2021 ambulatory Tracy Benito Other [employer] Other Start: 08-19-2021 Office outpatient vi sit 15 minutes Tracy Oliver [facility] Start: 08-02-2021 End: 08-02-2021 ambulatory Jane Waller Other [employer] Other Start: 08-02-2021 Telephone encounter Jane Waller [facility] Start: 06-30-2021 Telephone encounter Jane Song [facility] Start: 06-01-2021 Office outpatient vi sit 25 minutes Jane Waller [facility] Start: 07-07-2019 End: 07-13-2019 Evaluation and management of inpatient ELVER MENDENHALL Facility:[facility] Start: 07-06-2019 End: 07-07-2019 Patient encounter procedure ELVER MENDENHALL Facility:[facility] Start: 06-08-2019 End: 06-09-2019 Patient encounter procedure GITA GARCIA Facility:[facility] Start: 05-23-2019 End: 05-24-2019 Patient encounter procedure ELVER MENDENHALL Facility: Start: 12-27-2018 End: 12-28-2018 Patient encounter procedure ELVER MENDENHALL Facility: Start: 03-27-2018 Patient encounter PROVIDER UNKNOWN F [id number] Start: 03-27-2018 Patient encounter Facil [id number] Procedures Date Procedure Procedure Detail Performing Clinician Start: 03-27-2023 Microscopic observat ion [Identifier] in Cervix by Cyto stain Gita Garcia PA Work Phone: Start: 12-09-2020 Mammography Gita HUSAIN Work Phone: Start: 07-07-2019 REPAIR RIGHT KNEE PHONG INT, OPEN APPROACH IAN EBRAHEIM Start: 07-07-2019 REPOSITION RIGHT TIB IA WITH INT FIX, OPEN APPROACH IAN EBRAHEIM Start: 07-07-2019 SUPPLEMENT RIGHT TIB IA WITH SYNTH SUB, OPEN APPROACH IAN EBRAHEIM Start: 07-07-2019 Antibody screen ELVER MENDENHALL Comment on above: Performed By: #### [id number] #### [facility] [place] [address], [facility] Start: 12-27-2018 End: 12-27-2018 Microscopic examination of blood, culture ELVER MENDENHALL Comment on above: Performed By: #### B [id number] #### [facility] [address] [place], [place] [address] Jose Cabanen Performed By: #### L IPA, CMP #### [facility] [address] [place], [place] [address] Jose Gita Plan of Treatment Date Care Activity Detail Author Start: 03-27-2028 Screening for malign ant neoplasm of cervix [facility] Start: 03-27-2026 Screening for malign ant neoplasm of cervix Pap Smear [facility] Start: 05-13-2025 Screening for malign ant neoplasm of colon Colorectal Cancer Screening [facility] Comment on above: Postponed from 06/07 (Patient Refused) Start: 02-08-2025 End: 02-08-2025 Patient encounter procedure 02/08/2025 8:30 AM EDT Office Visit [facility] [address] [place] [phone] Lubna Lawrence APRN-PRISCILLA [address] [place] [address] [facility] Start: 06-30-2024 End: 06-30-2024 Patient encounter procedure 06/30/2024 9:30 AM EDT Office Visit [facility] [address] [place] [phone] Lenny Snow DO [address] [place] [address] [facility] Start: 06-25-2024 End: 06-25-2024 Patient encounter procedure 06/25/2024 2:40 PM EDT Office Visit [facility] [address] [place] [address] Trever Warner DPM [address] [facility] [address] [place] [address] [facility] Start: 06-10-2024 End: 06-03-2025 Basic metabolic 1998 panel - Serum or Plasma Basic metabolic panel Lab Routine Hypokalemia Expected: 06/10/2024 (Approximate), Expires: 06/03/2025 [facility] Work Phone: Comment on above: Expected: 06/10/2024 (Approximate), Expires: 06/03/2025 Start: 06-03-2024 End: 06-03-2026 US Heart Transthoracic Transthoracic Echo (TTE) Complete Echocardiography Routine Ankle edema Abnormal electrocardiogram Expected: 06/03/2024 (Approximate), Expires: 06/03/2026 [facility] Comment on above: Expected: 06/03/2024 (Approximate), Expires: 06/03/2026 Start: 05-03-2024 Influenza vaccination Influenza Vacc ine (#1) [facility] Start: 04-09-2024 End: 04-09-2024 Patient encounter procedure 04/09/2024 9:35 AM EDT Office Visit [facility] [address] [place] [phone] Lubna Lawrence, RN [employer] [facility] [address] [place] [address] [facility] Start: 03-31-2024 End: 03-31-2024 Patient encounter procedure 03/31/2024 9:45 AM EDT Office Visit [facility] [address] [place] [address] Lenny Snow, [address] [place] [address] [facility] Start: 11-15-2023 End: 11-15-2023 Patient encounter procedure 11/15/2023 8:30 AM EDT Office Visit [facility] [address] [place] [address] Gita Garcia PA [address] [place] [id number] [facility] Start: 10-14-2023 End: 10-14-2023 Patient encounter procedure 10/14/2023 8:30 AM EST Office Visit [facility] [address] [place] [address] Lubna Lawrence, RN INTEGRITY-CONTROL PANEL OPERATOR [facility] [address] [place] [address] [facility] Start: 10-04-2023 End: 10-04-2024 CBC W Auto Differential panel - Blood CBC and differential Lab Routine Wellness examination Iron deficiency Thrombocythemia Anemia, unspecified type Expected: 10/04/2023 (Approximate), Expires: 10/04/2024 [facility] Work Phone: Comment on above: Expected: 10/04/2023 (Approximate), Expires: 10/04/2024 Start: 10-04-2023 End: 10-04-2024 Comprehensive metabolic 2000 panel - Serum or Plasma Comprehensive metabolic panel Lab Routine Wellness examination Ankle edema Elevated ALT measurement Mixed hyperlipidemia (CMS/HCC) Expected: 10/04/2023 (Approximate), Expires: 10/04/2024 [facility] Comment on above: Expected: 10/04/2023 (Approximate), Expires: 10/04/2024 Start: 10-04-2023 End: 10-04-2024 Hemoglobin A1c measurement Hemoglobin A1c Lab Routine Wellness examination Impaired fasting glucose History of gestational diabetes Expected: 10/04/2023 (Approximate), Expires: 10/04/2024 [facility] Comment on above: Expected: 10/04/2023 (Approximate), Expires: 10/04/2024 Start: 10-04-2023 End: 10-04-2024 Iron + transferrin + TIBC Iron + transferrin + TIBC Lab Routine Wellness examination Iron deficiency Anemia, unspecified type Expected: 10/04/2023 (Approximate), Expires: 10/04/2024 [facility] Comment on above: Expected: 10/04/2023 (Approximate), Expires: 10/04/2024 Start: 10-04-2023 End: 10-04-2024 Lipid 1996 panel - Serum or Plasma Lipid panel Lab Routine Wellness examination Elevated ALT measurement Mixed hyperlipidemia (CMS/HCC) Expected: 10/04/2023 (Approximate), Expires: 10/04/2024 [facility] Comment on above: Expected: 10/04/2023 (Approximate), Expires: 10/04/2024 Start: 10-04-2023 End: 10-04-2024 TSH W/REFLEX TO FT4 TSH W/REFLEX TO FT4 Lab Routine Wellness examination Tachycardia Weight gain Expected: 10/04/2023 (Approximate), Expires: 10/04/2024 [facility] Comment on above: Expected: 10/04/2023 (Approximate), Expires: 10/04/2024 Start: 10-04-2023 End: 10-04-2023 Patient encounter procedure 10/04/2023 8:00 AM EST Office Visit [facility] [address] [facility] [address] [place] [address] Gita Garcia PA [address] [facility] [address] [place] [address] [facility] Start: 05-03-2023 Influenza vaccination Influenza Vacc ine (#1) [facility] Start: 12-09-2021 Screening for malign ant neoplasm of breast Mammogram [facility] Start: 1997 Screening for malign ant neoplasm of cervix Pap Smear [facility] Start: 1975 Screening for malign ant neoplasm of colon [facility] Immunizations Immunization Date Immunization Notes Care Provider Fa chani 03-10-2016 Rocephin 500 mg Jane Shenzhen MR [employer] Other [facility] Other 02-17-2016 tetanus toxoid, reduced diphtheria toxoid, and acellular pertussis vaccine, adsorbed Gita HUSAIN Work Phone: [facility] Work Phone: Payers Date Payer Category Payer Self-pay [id number] 2022 Blue Cross Blue Shield BCBS [id number] 2022 Unknown BCBS BCBS xxxxxx [id number] 2022-Present [phone] [id number] [place], [place] [address] [id number] 2022 Blue Cross Blue Shield [id number] 2.16.840.1.389920.19 1975 Unknown [id number] 2.16.840.1.990696.3.579.2. 593 1976 Unknown [id number] 2.16840.1.295678.3.579.2. 593 1976 Unknown [id number] 2.16.840.1.932856.3.579.2. 593 1976 Unknown [id number] 2.16.840.1.457357.3.579.2. 593 1976 Unknown [id number] 2.16.840.1.598185.3.579.2. 647 1976 Unknown [id number] 2.16.840.1.753908.3.579.2. 1259 1976 Unknown [id number] 2.16.840.1.496325.3.579.2. 1259 1976 Unknown [id number] 2.16.840.1.736038.3.579.2. 9 1976 Unknown [id number] 2.16.840.1.756910.3.579.2. 9 1976 Unknown [id number] 2.16.840.1.214954.3.579.2. 9 1976 Unknown [id number] 2.16.840.1.600509.3.579.2. 1259 1976 Unknown [id number] 2.16.840.1.029007.3.579.2. 9 1976 Unknown [id number] 2.16.840.1.358356.3.579.2. 1259 1976 Unknown [id number] 2.16.840.1.182381.3.579.2. 1259 1959 Unknown [id number] Unknown [id number] 2.16.840.1.370286.19 Unknown Copay Assistance Program [id number] Unknown [id number] 2.16.840.1.457173.3.579.2. 531 Unknown [id number] 2.16.840.1.586515.3.579.2. 531 Unknown [id number] 2.16.840.1.546560.3.579.2. 531 Social History Date Type Detail Facility Unknown if ever smoked [facility] Other Start: 03-27-2023 End: 07-15-2023 Sex Assigned At [facility] Start: 03-13-2021 End: 10-14-2023 Tobacco smoking status NHIS Never smoked tobacco (finding) [facility] Start: 1975 Sex Assigned At Female [facility] Start: 03-27-2023 End: 10-14-2023 Tobacco use and exposure Smokeless tobacco non-user [facility] Start: 07-15-2023 End: 06-03-2024 Alcohol intake Lifetime non-drinker (finding) [facility] Start: 03-27-2023 End: 07-15-2023 History of Social function [facility] Within the last year , have you been afraid of your partner or ex-partner? No [facility] Do you belong to any clubs or organizations such as protestant groups, unions, fraCENX or athletic groups, or school groups? Yes [facility] Are you now , , , , never or living with a partner? [facility] How often to you hav e a drink containing alcohol? Never [facility] How many standard drinks containing alcohol do you have on a typical day? Patient does not drink [facility] Do you feel stress - tense, restless, nervous, or anxious, or unable to sleep at night because your mind is troubled all the time - these days [OSQ] Not at all [facility] (I/We) worried [facility] (my/our) food would run out before (I/we) got money to buy more. Never true [facility] Start: 03-27-2023 Education 18 [facility] Start: 03-27-2023 Alcohol Comment Caffeine intak e: 1-2 cups per day soda [facility] Start: 1975 Sex Assigned At Not on file [facility] NEGATED: Highlighted rowStart: NINF History of tobacco use Passive smoker [facility] Goals Date Patient Goal Desired Activity /State Personal health goal Clinical Notes 11-18-2020 to 06-13-2024 Telephone Encounter - LISHA Grayson - 06/13/2024 9:33 AM EDTTelephone Encounter - LISHA Grayson - 06/13/2024 9:33 AM KHANHTLISHA Grayson - 06/03/2024 4:00 PM EDT Note Date & Type Note Facility 06-13-2024 Telephone encount er Note Please let pt know that her recent lab showed her potassium is back in normal range. Continue potassium supplement. [facility] 06-13-2024 Miscellaneous Notes Formattin g of this note might be different from the original. Please let pt know that her recent lab showed her potassium is back in normal range. Continue potassium supplement. documented in this encounter [facility] 06-03-2024 History of Presen t illness Narrative Images from the original note were not included. Subjective Patient ID: Linda Alvarado is a 48 y.o. female who presents for a follow up of [facility] on 05/30. She went to [facility] for hypokalemia. Linda is present today for a follow up of [facility] for hypokalemia, she states her legs are also very swollen again. Her potassium was at 3.1 when she left the hospital she has been taking her potassium pills everyday. She states her hands have not been numb anymore. States her feet are painful. States Dr. Warner gave her a Medrol tomer and that helped a lot. Then missed one day of Torsemide on Saturday and since then has had more swelling and pain. Current Outpatient Medications on File Prior to Visit Medication Sig Dispense Refill [DISCONTINUED] potassium chloride CR (K-Tab) 20 MEQ ER tablet Take 20 mEq by mouth in the morning and 20 mEq before bedtime. Adderall XR 20 MG 24 hr capsule 1 (one) time each day at the same time. Advair Diskus 500-50 MCG/ACT aerosol powder INHALE 1 PUFF INTO THE LUNGS TWICE A DAY FOR 30 DAYS albuterol HFA 90 mcg/act inhaler amphetamine-dextroamphetamine (Adderall) 20 MG tablet TAKE 1 TABLET ORALLY ONCE A DAY AT NOON 90 DAYS atorvastatin (Lipitor) 10 MG tablet TAKE 1 TABLET BY MOUTH EVERY DAY IN THE MORNING 90 tablet 2 cetirizine (ZyrTEC ALLERGY) 10 MG tablet 1 (one) time each day at the same time. cholecalciferol (Vitamin D-3) 50 MCG (1999 UT) capsule citalopram (CeleXA) 40 MG tablet Take 0.5 tablets (20 mg) by mouth Daily 45 tablet 3 dilTIAZem CD (Cardizem CD) 120 MG 24 hr capsule TAKE 1 CAPSULE (120 MG) BY MOUTH IN THE MORNING 100 capsule 3 eletriptan (Relpax) 40 MG tablet TAKE 1 TABLET BY MOUTH, REPEAT IN 2 HOURS IF HEADACHE RETURNS,*NO MORE THAN 2 DOSES IN 24 HOURS 12 tablet 12 fluticasone (Flonase) 50 MCG/ACT nasal spray SPRAY 1 TO 2 SPRAYS IN EACH NOSTRIL ONCE DAILY minocycline 100 MG capsule Take 1 capsule, by mouth, bid, 30 days (Patient taking differently: Take 1 capsule, by mouth, bid, 30 days PRN) 60 capsule 0 omeprazole (PriLOSEC) [address] capsule TAKE 1 CAPSULE BY MOUTH TWICE DAILY 180 capsule 3 Sunosi 150 MG tablet torsemide (Demadex) 10 MG tablet Take 1 tablet (10 mg) by mouth Daily 30 tablet 2 valACYclovir (Valtrex) 500 MG tablet Take 500 mg by mouth Daily [DISCONTINUED] clindamycin (Clindagel) 1 % gel Apply to face BID (Patient taking differently: Apply to face BID PRN) 60 g 1 [DISCONTINUED] hydroCHLOROthiazide (HYDRODiuril) 25 MG tablet Take 1 tablet (25 mg) by mouth in the morning. 100 tablet 3 [DISCONTINUED] methylPREDNISolone (Medrol Dospak) 4 MG tablets Follow schedule on MEDROL PACK package instructions to be used as directed 21 tablet 0 [DISCONTINUED] potassium chloride CR (KLOR-CON) 10 MEQ ER tablet Take 1 tablet (10 mEq) by mouth in the morning and 1 tablet (10 mEq) before bedtime. 200 tablet 3 No current facility-administered medications on file prior to visit. I have reviewed and reconciled the history and medication list with the patient today. Allergies Allergen Reactions Clarithromycin GI intolerance Sulfa Antibiotics Unknown Social History Tobacco Use Smoking 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 Passive exposure: Never Smokeless tobacco: Never Vaping Use Vaping 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 Used Substance Use Topics Alcohol use: Never Comment: [...] GDM (gestational diabetes mellitus) Infertility counseling Miscarriage 2011 OCD (obsessive compulsive disorder) ([facility]) ROBYN (obstructive sleep apnea) Seasonal allergies Past Surgical History: Procedure Laterality Date CARPAL TUNNEL RELEASE 2007 SECTION, CLASSIC 2016 COLPOSCOPY 2000, 2001 D&C FIRST TRIMESTER / TX INCOMPLETE / MISSED / SEPTIC / INDUCED 2010 DILATION AND CURETTAGE OF UTERUS 2012 GALLBLADDER 2012 TIBIA FRACTURE SURGERY Right 07/07/2019 ORIF Visit Vitals BP 128/64 Pulse 85 Resp 17 Ht 5' Wt 196 lb SpO2 98% BMI 38.28 kg/m OB Status Having periods Smoking Status Never BSA 1.94 m Review of Systems Constitutional: Negative for chills, fatigue and fever. Respiratory: Negative for cough, shortness of breath and wheezing. Cardiovascular: Positive for leg swelling. Negative for chest pain and palpitations. Gastrointestinal: Negative for abdominal pain, constipation, diarrhea, nausea and vomiting. Musculoskeletal: Positive for arthralgias. Skin: Negative for rash. Objective Physical Exam Constitutional: General: She is not in acute distress. Appearance: She is well-developed. She is obese. HENT: Head: Normocephalic and atraumatic. Eyes: General: No scleral icterus. Conjunctiva/sclera: Conjunctivae normal. Cardiovascular: Rate and Rhythm: Normal rate and regular rhythm. Heart sounds: Normal heart sounds. No murmur heard. Pulmonary: Effort: Pulmonary effort is normal. No respiratory distress. Breath sounds: Normal breath sounds. No wheezing, rhonchi or rales. Skin: General: Skin is warm and dry. Neurological: General: No focal deficit present. Mental Status: She is alert and oriented to person, place, and time. Psychiatric: Mood and Affect: Mood normal. Affect is tearful. Behavior: Behavior normal. Comments: Tearful when discussing the pain in her feet. Assessment/Plan Diagnoses and all orders for this visit: Ankle edema - Transthoracic Echo (TTE) Complete; Future Provided pt with order to have updated ECHO at this time for further evaluation due to persistent edema. Reviewed several potential causes of edema, including but not limited to kidney disease, liver disease, protein deficiencies ie malnutrition, obesity, venous insufficiency, impaired lymphatic flow, heart diease. Labs negative for abnormal kidney function, ALT was 54, but otherwise liver enzymes WNL. Encouraged adequate protein in the diet. Encouraged pt to wear compression stockings as often as possible to support veins in the legs. Elevate legs when possible. Hypokalemia - potassium chloride CR (Klor-Con) 10 MEQ ER tablet; Take 2 tablets (20 mEq) by mouth in the morning and 2 tablets (20 mEq) before bedtime. - Basic metabolic panel; Future Will have her continue with 20 mEq twice a day. Will recheck potassium in 1-2 weeks. Contact office with any concerns. Peroneal tendinitis of left lower extremity - methylPREDNISolone (Medrol Dospak) 4 MG tablets; Follow schedule on package instructions Had marked improvement in pain and swelling with the above previously. Tomer sent in for pt to take as directed. Take with food. Peroneal tendinitis of right lower extremity - methylPREDNISolone (Medrol Dospak) 4 MG tablets; Follow schedule on package instructions Follow up with Dr. Warner as per his instruction. Obesity (BMI 30-39.9) Encouraged portion control, decrease simple sugars and carbohydrates, gradually increase activity level. Aim for gradual steady weight loss. Abnormal electrocardiogram - Transthoracic Echo (TTE) Complete; Future Will obtain updated ECHO. Family history of heart disease Patient has completed a stress test in the past, 03/27/2018, which was normal at that time. Will continue to work on minimizing risk factors for pt. Venous insufficiency Agree with Dr. Warner that venous insufficiency is contributing to pt's chronic swelling. The patient was seen today in follow up of recent hospital ER visit. All available hospital records/labs/diagnostics were reviewed and discussed with the patient. ER discharge meds were reviewed. Any changes to plan are noted above. Follow up in about 3 months (around 09/03/2024). documented in this encounter [facility] 10-14-2023 History of Presen t illness Narrative [...] Visit: 1 year documented in this encounter [facility] 10-10-2023 Evaluation note Encounter Date Diagnosis Assessment Notes Oct, ROBYN (obstructi ve sleep apnea) (ICD-10 - G47.33) [facility] Other 02-02-2024 History of Present illness Narrative* [...] same time. cholecalciferol (Vitamin D-3) 50 MCG (2000 UT) capsule citalopram (CeleXA) 40 MG tablet [...] sleepiness The patient is seeing a medical geneticist for this condition, treatment is deferred to that specialist. Correspondence from that specialist and any available testing were reviewed during today's visit. Obstructive sleep apnea The patient is seeing a medical geneticist for this condition, treatment is deferred to [...] infertility The patient is seeing a medical geneticist for this condition, treatment is deferred to [...] fracture The patient is seeing a medical geneticist for this condition, treatment is deferred to [...] (around 11/15/2023) for Recheck. documented in this [facility]11-30-2023 Evaluation note* Encounter Date Diagnosis Assessment Notes [...] but has reported symptoms in the past [facility] Other 11-28-2023 Evaluation note* Encounter Date Diagnosis Assessment Notes Treatment Notes Treatment Clinical Notes Jul, Mild intermittent asthma, uncomplicated (ICD-10 - J45.20) [facility] Other 10-12-2023 Evaluation note* Encounter Date Diagnosis Assessment Notes Treatment Notes Treatment Clinical Notes Jun, ROBYN (obstructive sleep apnea) (ICD-10 - G47.33) [facility] Other 10-02-2023 Evaluation note* Encounter Date Diagnosis Assessment Notes Treatment Notes Treatment Clinical Notes Jun, ROBYN (obstructive sleep apnea) (ICD-10 - G47.33) [facility] Other 08-01-2023 Evaluation note* Encounter Date Diagnosis [...] is present Apr, Cataplexy (ICD-10 - G47.411) [facility] Other 07-10-2023 Evaluation note* Encounter Date Diagnosis Assessment Notes Treatment Notes Treatment Clinical Notes Mar, Mild intermittent asthma, uncomplicated (ICD-10 - J45.20) [facility] Other 2023 Evaluation note* Encounter Date Diagnosis [...] night before attempted MSLT. Her persistent elevated B[place] sleepiness score, at 17, continues to show [...] have not gotten the PSG MSLT documentation [facility] Other 03-23-2023 Evaluation note* Encounter Date Diagnosis Assessment Notes Treatment Notes Treatment Clinical Notes Oct, ROBYN (obstructive sleep apnea) (ICD-10 - G47.33) [facility] Other 12-27-2022 Evaluation note* Encounter Date Diagnosis Assessment Notes Treatment Notes Treatment Clinical Notes Aug, ROBYN (obstructive sleep apnea) (ICD-10 - G47.33) [facility] Other 11-01-2022 Evaluation note* Encounter Date Diagnosis [...] sleepiness does suggest the diagnosis of narcolepsy [facility] Other 09-22-2022 Evaluation note* Encounter Date Diagnosis Assessment Notes Treatment Notes Treatment Clinical Notes May, ROBYN (obstructive sleep apnea) (ICD-10 - G47.33) [facility] Other 07-18-2022 Evaluation note* Encounter Date Diagnosis Assessment Notes Treatment Notes Treatment Clinical Notes Mar, Mild intermittent asthma, uncomplicated (ICD-10 - J45.20) Take Breo 1 inhalation daily if you run out of Advair. [facility] Other 06-24-2022 Evaluation note* Encounter Date Diagnosis Assessment Notes Treatment Notes Treatment Clinical Notes Jan, ROBYN (obstructive sleep apnea) (ICD-10 - G47.33) [facility] Other 06-23-2022 Evaluation note* Encounter Date Diagnosis [...] multiple sleep latency test is likely indicated [facility] Other 03-25-2022 Evaluation note* Encounter Date Diagnosis Assessment Notes Treatment Notes Treatment Clinical Notes Oct, Narcolepsy and cataplexy (ICD-10 - G47.411) [facility] Other 01-07-2022 Evaluation note* Encounter Date Diagnosis Assessment Notes Treatment Notes Treatment Clinical Notes Sep, Mild intermittent asthma, uncomplicated (ICD-10 - J45.20) [facility] Other 01-07-2022 Evaluation note* Encounter Date Diagnosis Assessment Notes Treatment Notes Treatment Clinical Notes Sep, Narcolepsy and cataplexy (ICD-10 - G47.411) [facility] Other 12-21-2021 Evaluation note* Encounter Date Diagnosis [...] have significant positive effects on sleep apnea [facility] Other 12-18-2021 Evaluation note* Encounter Date Diagnosis Assessment Notes Treatment Notes Treatment Clinical Notes 18 Dec, 2021 Cellulitis of right lower extremity (ICD-10 - L03.115) Use medications as directed. Cover area as instructed. May use gently cleanser to area between daily application as instructed.. Follow up with primary care provider if no improvement of symptoms or if symptoms worsen. [facility] Other 12-01-2021 Evaluation note* Encounter Date Diagnosis Assessment Notes Treatment Notes Treatment Clinical Notes Aug, Narcolepsy and cataplexy (ICD-10 - G47.411) [facility] Other 10-29-2021 Evaluation note* Encounter Date Diagnosis Assessment Notes Treatment Notes Treatment Clinical Notes Jun, Narcolepsy and cataplexy (ICD-10 - G47.411) [facility] Other 09-30-2021 Evaluation note* Encounter Date Diagnosis [...] to evening. She will call if problems 30 Sep, 2021 Obstructive sleep apnea (ICD-10 - G47.33) Download shows good use and control. Call if poor response or problem .Ensure adequate total sleep time May, Excessive daytime sleepiness (ICD-10 - G47.19) controlled with PAP for ROBYN and med for narcolepsy [employer] [facility] [employer] Other 07-12-2021 Progress note Author John Cowan [facility] March 13, 2021 9:57am Note Date/Time March 13, 2021 9:43 am [facility] [place] [address] Hem/Onc Follow Up Note - OP Signed Patient: Linda Alvarado MR#: [id number] : 1975 Acct:[id number] Age/Sex: 45 / F Type: REG RCR Copies to: MD Gita Navarrete II, PASorin~ Subjective Date/Time of Service: Date of Service: 03/13/2021 Time of Service: 09:37 Chief Complaint: Patient is here for a 4 month follow up for thrombocytosis withlabs 03/08/2021 for review. No concerns are voiced at this time. HPI: 45-year-old female 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 She is referred for mild thrombocytosis, [...] of frequent infections or delayed wound healing.] [facility] - Medical History Medical History: Medical History [...] % (Auto) 67.8, Lymph % (Auto) 21.7, Sargent % (Auto) 6.5, Eos % (Auto) 2.9, Baso % (Auto) 1.1, Neut # (Auto) 5.7, Lymph # (Auto) 1.8, Sargent # (Auto) 0.5, Eos # (Auto) 0.2, [...] for coordination of care (as documented) and [id number]-[id number] counseling of patient and/or family. Dictated By: John Cowan MD DD/ 0937 Signed By: <Electronically signed by John Cowan MD> 03/13/21 0957 [facility] Work Phone: 1(208) 274-278503-19-2021 Progress note Author Cheng Almaguer [facility] November 18, 2020 5:11pm Note Date/Time November 18, 2020 2:4 6pm [facility] [place] [address] Hem/Onc Follow Up Note - OP Signed with Brandon Patient: Linda Alvarado MR#: [id number] : 1975 Acct:[id number] Age/Sex: 45 / F Type: REG RCR Copies to: MD Gita Navarrete II, PA-C~ ADDENDUM1 I wrote two notes for today, consider this one void. the second one is updated with lab data and a different plan. Addendum Dictated By: Cheng Almaguer II, Addendum Signed By: 11/18/201710 Addendum Cosigned By: DD/ TD/TT: 11/18/20 Subjective Date/Time of Service: Date of Service: 11/18/2020 Time of Service: 14:45 Chief Complaint: Patient is here today for a referral from LISHA Dhaliwal for elevated platelets HPI: 45-year-old female 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 She is referred for thrombocytosis. Past [...] known thrombosis. she has never had mammogram. [facility] - Medical History Medical History: Medical History [...] for coordination of care (as documented) and [id number] counseling of patient and/or family. Attestation Statement - Physician Attestation cbc, cmp, ferritin, iron, iron sat. Jak2. she will call to discsuss results. f/u with me 1 year. Dictated By: Cheng Almaguer II, DO DD/ 1445 Signed By: <Electronically signed by Cheng Almaguer II, DO> 11/18/20 1506 [facility] Work Phone: 1(176) 970-682303-19-2021 Progress note Author Cheng Almaguer [facility] November 18, 2020 5:10pm Note Date/Time November 18, 2020 5:1 0pm [facility] at [address] [address] Hem/Onc Follow Up Note - OP Signed Patient: Linda Alvarado MR#: [id number] : 1975 Acct:[id number] Age/Sex: 45 / F Type: REG RCR Copies to: MD Gita Navarrete II, PA-C~ Subjective Date/Time of Service: Date of Service: 11/18/2020 Time of Service: 17:09 Chief Complaint: Patient is here today for a referral from LISHA Dhaliwal for elevated platelets HPI: 45-year-old female 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 She is referred for thrombocytosis. Past [...] known thrombosis. she has never had mammogram. [facility] - Medical History Medical History: Medical History [...] % (Auto) 70.1, Lymph % (Auto) 22.2, Sargent % (Auto) 4.9, Eos % (Auto) 2.0, Baso % (Auto) 0.8, Neut # (Auto) 7.4, Lymph # (Auto) 2.3, Sargent # (Auto) 0.5, Eos # (Auto) 0.2, [...] for coordination of care (as documented) and [id number] counseling of patient and/or family. Attestation Statement - Physician Attestation We will give 2 doses of IV Injectafer and follow-up with me in 3 months. Prior to follow-up check CBC, CMP, iron, ferritin, iron binding capacity. Dictated By: Cheng Almaguer II, DO DD/ 170 Signed By: <Electronically signed by Cheng Almaguer II, DO> 11/18/20 1710 [facility] Work Phone: Evaluation noteNo assessment information available [facility] Work Phone: Evaluation noteNo InformationN[facility] [employer] Other Evaluation note* Diagnosis Wellness examination- Primary [...] metabolism, and development documented in this encounter [facility]* Diagnosis Nevus Benign neoplasm of skin, site unspecified Perioral dermatitis Rosacea documented in this encounter [facility] HealthcareEvaluation note* Diagnosis Onset Date Resolution Status Cellulitis of left lower leg noneactive [facility] Work Phone: Evaluation note* Diagnosis Onset Date Resolution Status Cellulitis of left lower leg noneactive Dysuria noneactive [facility] Work Phone: Evaluation note* Diagnosis Onset Date Resolution Status Cellulitis of left lower leg noneactive Abdominal pain acute Hypnagogic hallucinations ac huslia Narcolepsy and cataplexy acu te OCD (obsessive compulsive disorder) acute ROBYN (obstructive sleep apnea) acute Sleep paralysis acute [facility] Work Phone: Evaluation note* Diagnosis Ankle edema- Primary Edema Hypokalemia Hypopotassemia Peroneal tendinitis of left lower extremity Peroneal tendinitis of right lower extremity Obesity (BMI 30-39.9) Abnormal electrocardiogram Nonspecific abnormal electrocardiogram (ECG) (EKG) Family history of heart disease Venous insufficiency Unspecified venous (peripheral) insufficiency [facility] - [facility] Type Description Date Medical History allergies Medical History asthma Medical History OCD (obsessive compulsive disord er) Medical History Herpes Medical History ROBYN -Auto BiPAP with maximum of 14 minimum of 5 with pressure support of 4. Surgical History D&C Surgical History cholecystectomy Surgical History carpal tunnel release Surgical History C section Hospitalization History see above [facility] Other History general Narrative - Reported* Type [...] History C section Hospitalization History see above [facility] Other History general Narrative - Reported* Type Description Date Medical History allergies Medical History asthma Medical History OCD (obsessive compulsive disord er) Medical History Herpes Medical History ROBYN -Auto BiPAP Medical History suspected narcolepsy - EDS, clinical cataplexy, inconclusive PSG/MSLT Surgical History D&C Surgical History cholecystectomy Surgical History carpal tunnel release Surgical History C section Hospitalization History see above [facility] Other Summary Purpose Family History Relationship Condition Age at Onset Recorded Date/T [...] Unknown mother Heart disease Unknown Advance Directives Advance Directive Response Recorded Date/ Time Advance Directives No June 03, 2017 10:15am Advance Directive Response Recorded Date/ Time Advance Directives No June 03, 2017 9:15am Hospital Course Note MR#: [id number] [facility] Pt. Name: Linda Alvarado Admitted: 07/07/2019 Discharged: [...] sleep apnea) Sleep paralysis Chief Complaint Narcolepsy Reason for Referral Specialty Diagnoses / Procedures Referred By Shena david Referred To Contact Radiology Diagnoses Ankle edema Abnormal electrocardiogram Procedures Transthoracic Echo (TTE) Complete Gita Garcia PA [address] [facility] [address] [place] [address] [facility] [address] [place] [address] Phone: [phone] Referral ID Status Reason Start Date Expiration Date Visits Requested Visits Authorized [id number] Incomplete Perform Procedure 06/03/2024 11/30/2024 1 1 Additional Source Comments INFORMATION SOURCE (unrecogn ized section and content) DATE CREATED AUTHOR 03/28/2018 [facility] DATE CREATED AUTHOR AUTHOR'S ORGANIZ ATION 03/29/2018 [facility] DATE CREATED AUTHOR AUTHOR'S ORGANIZ ATION 07/08/2019 [facility] DATE CREATED AUTHOR AUTHOR'S ORGANIZ ATION 04/05/2020 [facility] DATE CREATED AUTHOR AUTHOR'S ORGANIZ ATION 09/19/2021 [facility] DATE CREATED AUTHOR AUTHOR'S ORGANIZ ATION 05/30/2024 [facility] DATE CREATED AUTHOR AUTHOR'S ORGANIZ ATION 06/05/2024 [facility] EPIC REASON FOR VISIT (unrecogniz ed section and [...] Active Jane Waller MD Attending Provider Active Cemetery Workers Supervisor Relationship Specialty Start Date End Date Elver Mendenhall MD [address] [facility] [address] [place] [address] PCP - General Internal Medicine 03/27/23 [employer] Supervisor Relationship Specialty Start Date End Date Elver Mendenhall MD [address] [facility] [address] [place] [address] PCP - General Internal Medicine 03/27/23 [employer] Workers Supervisor Relationship Specialty Start Date End Date Elver Mendenhall MD [address] [facility] [address] [place] [address] PCP - General Internal Medicine 03/27/23 Team Status: Inactive Member Role Status Dates Elver Mendenhall II MD Primary Care Provider Active Start: December 25, 2023 End: December 25, 2023 Dari Patterson NP-C Attending Provider Active S tart: December 25, [...] May 20, 2024 End: May 20, 2024 [employer] Workers Supervisor Relationship Specialty Start Date End Date Elver Mendenhall MD [address] [facility] [address] [place] [address] PCP - General Internal Medicine 03/27/23 [employer] Workers Supervisor Relationship Specialty Start Date End Date Elver Mendenhall MD [address] [facility] [address] [place] [address] PCP - General Internal Medicine 03/27/23 Goals (unrecognized section and content) Goals may [...] BE BASED ON THE PRIMARY CLINICAL RECORDS. [facility]. provides no warranty or guarantee of the accuracy or completeness of information in this document.
--- NOTE | 2024-06-22 14:58 | CT_ITS ---
The [address] [address] Patient Name: COLEEN ALVARADO MRN: [id number] date: 1975 Sex: F Assigned Patient Location: ER Current Patient Location: ER Accession/Order Number: [id number] Exam Date: 06/22/2024 14:51 Report Date: 06/22/2024 15:16 At the request of: LUBNA MANZANARES Procedure: CT lumbar spine wo con PROCEDURE: CT lumbar spine wo con COMPARISON: None. HISTORY: low back pain, right sided sciatica TECHNIQUE: Axial, Coronal, and Sagittal CT images obtained without IV contrast. Dose reduction techniques were achieved by using automated exposure control and/or adjustment of mA and/or kV according to patient size and/or use of iterative reconstruction technique. FINDINGS: PARASPINAL AREA: Normal with no visible mass. DISCS: Multilevel disc space narrowing most significant at T12-L1 and L1-L2. Posterior broad-based disc r herniation the protrusion type at L1-L2 extending posteriorly up to 3.3 mm with suspected right foraminal stenosis BONES: Rotatory levocurvature of the lumbar spine centered at L3. Mild to moderate degenerative spondylosis and facet osteoarthropathy. No central canal or foraminal stenosis. Bilateral sacroiliac joint sclerosis OTHER: Negative. CT/CT lumbar spine wo con IMPRESSION: Degenerative changes with disc herniation and suspected right foraminal stenosis at L1-L2. Consider nonemergent MRI follow-up for further characterization Electronically authenticated by: JANE NICOLAS Date: 06/22/2024 15:16
[2024-06-22 15:23] LABS: Bilirubin Urine NEGATIVE (NEGATIVE); Blood Urine NEGATIVE (NEGATIVE); Clarity Urine CLEAR (CLEAR); Color Urine LT. YELLOW (YELLOW); Glucose Urine UA NEGATIVE (NEGATIVE); Ketones Urine NEGATIVE (NEGATIVE); Leukocyte Esterase Urine NEGATIVE (NEGATIVE); Nitrite Urine NEGATIVE (NEGATIVE); Protein Urine NEGATIVE (NEG/TRACE); Urobilinogen Urine 0.2 EU/dL (0.2-1.0); pH Urine 5.5 (5.0-9.0)
[2024-06-22 15:24] LABS: Urine Microscopic Indicated NO
[2024-06-22 15:54] VITALS: BP 132/86; PULSE 88; O2SAT 98
== END 2024-06-22 15:55 | disposition home or self-care (01) ==
PROVIDERS: Emergency Provider Emergency Medicine; PCP Internal Medicine
DX: M54.41 Lumbago with sciatica, right side (principal)
CPT/HCPCS: 72131; 81003; 96372; 99285; J1885; J2360

== ENCOUNTER 2024-07-02 14:39 | Outpatient (OUT) | payer BC, SELFPAY ==
--- NOTE | 2024-07-02 15:00 | CA_ITS ---
Patient Name: COLEEN ALVARADO MR#: [id number] : 1975 Exam Date: 07/02/2024 Ordering Doctor: DR DAPHNE HUSAIN ECHOCARDIOGRAM REPORT PROCEDURE: CA ECHO DOPPLER COMPLETE INDICATIONS: Bilateral lower extremity edema COMPARISON: None. DESCRIPTION: COMPLETE ECHOCARDIOGRAM Real-time transthoracic echocardiography with 2D, M-mode, spectral and color flow Doppler performed. QUALITY: Technical quality was good. LEFT VENTRICLE: Normal chamber size. Thickened septal wall. Normal systolic function. LV EF: Normal left ventricular ejection fraction, (>55%). DIASTOLIC: ATRIAL SEPTUM: LEFT ATRIUM: Normal chamber size. RIGHT ATRIUM: Normal chamber size. RIGHT VENTRICLE: Normal chamber size. TRICUSPID VALVE: Normal mobility and thickness. No stenosis with trivial regurgitation. Unable to assess right-sided pressures due to lack of measurable tricuspid regurgitation. MITRAL VALVE: Normal mobility and thickness. No evidence of mitral valve stenosis. There is no mitral annular calcification. No mitral regurgitation. AORTIC VALVE: Normal trileaflet appearance. No visible sclerosis. Normal leaflet mobility. No evidence of aortic valve stenosis. No aortic regurgitation. AORTIC ROOT: Normal diameter and appearance. Ascending aorta is normal in size. PULMONIC VALVE: Normal thickness and mobility. No stenosis. Trivial regurgitation. PERICARDIUM: No evidence of pericardial effusion. IVC: Collapses with inspirations. IVC is normal in size. PLEURA: CONCLUSION: 1. Normal ventricular systolic function. LVEF is estimated at 65%. 2. No significant valvular dysfunction. 3. No pericardial effusion. 4. Unable to assess right-sided pressures due to lack of measurable tricuspid regurgitation. Adult Echocardiography Procedure Report Left Ventricle LVEDD (3.7 - 5.6 cm): 4.39 cm LVESD (2.2 - 4.0 cm): 2.07 cm LVIVS thickness (0.6 - 1.2 cm): 1.09 cm LVPW thickness (0.5 - 1.0 cm): 0.90 cm E - e': 10.50 LVOT Max Gradient: 5.00 mm[Hg] LVOT Area (cm2): 1.12 m/s Peak Velocity (LVOT): 1.12 m/s Mean Velocity (LVOT): 0.70 m/s LVOT Diameter 2.07 cm Left Atrium LA Volume Index (2D A2C): 23.96 ml/m2 Left Atrium Systolic Dimension: 3.59 cm Mitral Valve MV E to A Ratio: 0.92, 0.84 Right Ventricle Aorta AO Root Diam: 3.43 cm Ascending Ao Diam: 2.76 cm Aortic Valve AoV Area (Peak Sharan): 2.73 cm2, 2.73 cm2 AoV Area (VTI): 3.21 cm2, 3.21 cm2 Peak Velocity(Antegrade Flow): 1.38 m/s Peak Gradient(Antegrade Flow): 7.61 mm[Hg] Mean Velocity(Antegrade Flow): 0.86 m/s Mean Gradient(Antegrade Flow): 3.52 mm[Hg] Velocity Time Integral: 27.62 cm Tricuspid Valve Pulmonic Valve Mean Gradient: 2.51 mm[Hg] Mean Velocity: 0.75 m/s Peak Velocity: 1.07 m/s, 1.12 m/s Peak Gradient: 5.00 mm[Hg], 4.54 mm[Hg] Right Atrium Dictated by: Sadi Davila M.D. on 07/02/2024 at 19:07 Approved by: Sadi Davila M.D. on 07/02/2024 at 19:09
== END 2024-07-02 14:40 | disposition home or self-care (01) ==
LOC: CARD 14:39
PROVIDERS: PCP Internal Medicine; Visit Provider Physician Assistant
DX: R94.31 Abnormal electrocardiogram [ECG] [EKG] (principal); M25.473 Effusion, unspecified ankle
CPT/HCPCS: 93306

== ENCOUNTER 2024-07-03 10:44 | Outpatient (OUT) | payer BC, SELFPAY ==
--- NOTE | 2024-07-03 | XR_ITS ---
The [address] [address] Patient Name: COLEEN ALVARADO MRN: [id number] date: 1975 Sex: F Assigned Patient Location: Current Patient Location: Accession/Order Number: [id number] Exam Date: 07/03/2024 10:55 Report Date: 07/05/2024 07:03 At the request of: RICHARD DIAZ Procedure: XR lumbar spine min 4V EXAMINATION: XR lumbar spine min 4V HISTORY: LUMBAR SPINE PAIN COMPARISON: CT lumbar spine 06/22/2024 FINDINGS: BONES: Prominent left convex curvature of thoracolumbar spine. No fracture or bone lesion. Mild grade 1 retrolisthesis of L1 on 2; grossly stable between flexion, neutral, and extension. Marked degenerative facet arthropathy L4-L5, L5-S1; moderate at remaining levels. DISC SPACES: Moderate narrowing L1-L2. Mild narrowing at remaining levels. PARASPINOUS: Negative. No paraspinous abnormality is seen. OTHER: Negative. XR/XR lumbar spine min 4V IMPRESSION: 1. Levoscoliosis and multilevel mild to moderate degenerative disc disease and degenerative facet arthropathy. Electronically authenticated by: EBEN CROWLEY Date: 07/05/2024 07:03
--- OUTSIDE RECORDS SUMMARY | 2024-07-03 10:52 | XMS_ITS | CCD ---
Author Organization [facility] Care Team Providers [facility] President Name Role Phone UNKNOWN, PROVIDER Unavailable Unavailable [...] LLANES Attending Unavailable EBRAHEIM, IAN Admitting Unavailable [place] Procedure Practitioner Unavailab IAN [place] Surgeon Unavailable Jane Waller Unavailable Ciera Mcwilliams Unavailable Tracy Oliver Unavailable OSCAR Mendenhall Primary Care Provider MD Jane Waller. Attending Provider [phone] OSCAR Mendenhall Primary Care Provider [phone] MD Jane Waller Attending Provider [phone] Efraín Patel Unavailable OSCAR [place] Primary Care Provider [phone] MD Jane Waller. Attending Provider [phone] Elver Mendenhall MD Primary Care Provider OSCAR Mendenhall Primary Care Provider MD Jane Waller Attending Provider GITA GARCIA Attending Unavailable LUBNA LAWRENCE Attending Unavailable GITA GARCIA Attending Unavailable SEB KITCHEN Attending Unavailable SEB KITCHEN Referring Unavailable GITA GARCIA Attending Unavailable TREVER WARNER Attending Unavailable TREVER WARNER Attending Unavailable GITA GARCIA Attending Unavailable Jane Waller Admitting Unavailable Jane Waller Attending Unavailable Elver Mendenhall Primary Care Unavailable Jane Waller Attending Unavailable Jane Waller Admitting Unavailable Elver Mendenhall Primary [facility] Unavailable Jane Waller Attending Unavailable Jane Waller Admitting Unavailable Allergies Allergy Classification Reported Allergen(s) Allergy Type Date of Onset Reaction(s) Facility (2 sources) Morphine Drug Allergy 9 [facility] Repository (1 source) Sulfamethoxazole / Trimethoprim Drug Allergy 6 [facility] Repository (1 source) Sulfonamides (Antibiotic) Drug allergy (disorder) 9 [facility] Repository (19 sources) Clarithromycin; Translations: [clarithromycin] Drug Allergy 1 GI intolerance [facility] (11 sources) Sulfanilamide; Translations: [sulfanilamide] Drug Allergy 1 Unknown Reaction, Anaphylaxis [facility] (8 sources) Sulfonamides (Antibiotic) Drug Allergy 3 [...] Twice a day for 90 day(s) Active [id number] 200 actuat albuterol 0.09 mg/actuat metered dose [...] 18, 2020 12:00am take 1 capsule by [facility] every twenty-four hours ZyrTEC Allergy 10 MG [...] Start: 02-28-2023 take 1 capsule by [facility] every twenty-four hours in the [...] 11-18-2020 Fluticasone Pr opionate (Flonase) 50 mcg/actuation [place],Suspension Active 1 SPRAY INTRANASAL Daily November 18, [...] 03-27-2018 Episodic Other aftercare (1 source) Other skilled nursing (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 therapy; Translations: [OTH SENIOR CARE CURRENT DRUG THERAPY] Onset: 07-08-2019 Episodic Other [...] 05-13-2024 01-30-2024 Chronic Other nervous system disorders (11 sources) Narcolepsy with cataplexy; 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, with [...] Onset: 11-17-2008 02-20-2023 Chronic Residual codes; unclassified (17 sources) Obstructive sleep apnea (adult) (pediatric); Translations: [...] 06-01-2021 Resolved: 02-22-2022 Episodic Residual codes; unclassified (5 sources) Family history of cardiac disorder; Translations: [Family history of ischemic heart disease and other diseases of the circulatory system] Onset: 06-03-2024 06-03-2024 Episodic Residual codes; unclassified (1 source) Transient [...] on 05-20-2024 Amphetamines Ql (U) Negative Negative [facility] Barbiturates [Presence] in U rine by Screen methodOrdered By: Jane Waller on 05-20-2024 Barbiturates Screen Ql (U) Negative Negative [facility] Benzodiazepines Screen Ql (U )Ordered By: Jane Waller on 05-20-2024 Benzodiazepines Ql (U) Negative Negative [facility] Benzoylecgonine [Presence] i n Urine by Screen methodOrdered By: Jane Waller on 05-20-2024 Benzoylecgonine Screen Ql (U) Negative Negative [facility] Cannabinoids [Presence] in U rine by Screen methodOrdered By: Jane Waller on 05-20-2024 Cannabinoids Screen Ql (U) Negative Negative [facility] Comment on above: These are unconfirme d results and should not be used for legal purposes. Drug Cut-Off Concentration: AMPH 1000 ng/mL KEITH 200 ng/mL LARS 200 ng/mL COCM 300 ng/mL OP 300 ng/mL PCP 25 ng/mL THC 20 ng/mL Drug Screen,Urineon 05-20-20 24 Amphetamine Screen,Urine Negative Normal Negative [facility] Comment on above: Performed By: #### U RDS #### [address] Barbiturate Screen,Urine Negative Normal Negative [facility] Comment on above: Performed By: #### U RDS #### [address] Benzodiazepines Screen,Urine Negative Normal Negative [facility] Comment on above: Performed By: #### U RDS #### [address] Cannabinoid Screen,Urine Negative Normal Negative [facility] Comment on above: Result Comment: Thes e are unconfirmed results and should not be used for legal purposes. Drug Cut-Off Concentration: AMPH 1000 ng/mL KEITH 200 ng/mL LARS 200 ng/mL COCM 300 ng/mL OP 300 ng/mL PCP 25 ng/mL THC 20 ng/mL PERFORMED BY: [place] [address] PATHOLOGIST [employer] YENNIFER BROWN M.D. Performed By: #### U RDS #### [address] Cocaine Screen,Urine Negative Normal Negative [facility] Comment on above: Performed By: #### U RDS #### [address] Opiate Screen,Urine Negative Normal Negative [facility] Comment on above: Performed By: #### U RDS #### [address] Phencyclidine Screen,Urine Negative Normal Negative [facility] Comment on above: Performed By: #### U RDS #### [address] Opiates [Presence] in Urine by Screen methodOrdered By: Jane Waller on 05-20-2024 Opiates Screen Ql (U) Negative Negative [facility] Phencyclidine Screen Ql (U)O rdered By: Jane Waller on 05-20-2024 Phencyclidine Ql (U) Negative Negative [facility] - Chemistry and C hemistry - challengeon 01-09-2024 Bilirubin Ql (U) Negative [facility] Glucose (U) [Mass/Vol] Negative [facility] Ketones Ql (U) Negative [facility] pH (U) 6.0 [pH] [facility] Specific gravity (U) [Rel density] 1.020 [facility] Urobilinogen (U) [Mass/Vol] 0.2 mg/dL [facility] Laboratory - Specimen inform ationon 01-09-2024 Appearance (U) clear [facility] Color (U) yellow [facility] Laboratory - Urinalysison Leukocyte esterase Test strip Ql (U) Negative [facility] Nitrite Ql (U) Negative [facility] Protein Ql (U) Negative [facility] No Panel Informationon 01-08 Urine Occult Blood Negative [facility] Complete Blood Count with Au to Diffon 09-18-2021 Basophils (Bld) [#/Vol] 0.09 10*3/uL Normal 0.00-0.20 [facility] Comment on above: Performed By: #### C BCAD, CMP, LIPD, FE Prof #### [facility] [address] [place], [place] [id number] Basophils/100 WBC (Bld) 1.2 % Normal [facility] Comment on above: Performed By: #### C BCAD, CMP, LIPD, FE Prof #### [facility] [address] [place], [place] [id number] Eosinophils (Bld) [#/Vol] 0.18 10*3/uL Normal 0.02-0.50 [facility] Comment on above: Performed By: #### C BCAD, CMP, LIPD, FE Prof #### [facility] [address] [place], [place] [id number] Eosinophils/100 WBC (Bld) 2.5 % Normal [facility] Comment on above: Performed By: #### C BCAD, CMP, LIPD, FE Prof #### [facility] [address] [place], [place] [id number] Erythrocyte distribution width (RBC) [Ratio] 12.4 % Normal 11.0-15.0 [facility] Comment on above: Performed By: #### C BCAD, CMP, LIPD, FE Prof #### [facility] [address] [place], [place] [id number] Hematocrit (Bld) [Volume fraction] 41.2 % Normal 35.0-47.0 [facility] Specialist Comment on above: Performed By: #### C BCAD, CMP, LIPD, FE Prof #### [facility] [address] [place], [place] [id number] Hemoglobin (Bld) [Mass/Vol] 14.2 g/dL Normal 11.6-15.5 [facility] Specialist Comment on above: Performed By: #### C BCAD, CMP, LIPD, FE Prof #### [facility] [address] [place], [place] [id number] Lymphocytes (Bld) [#/Vol] 2.3 10*3/uL Normal 0.9-3.9 [facility] Specialist Comment on above: Performed By: #### C BCAD, CMP, LIPD, FE Prof #### [facility] [address] [place], [place] [id number] Lymphocytes/100 WBC (Bld) 31.5 % Normal [facility] Specialist Comment on above: Performed By: #### C BCAD, CMP, LIPD, FE Prof #### [facility] [address] [place], [place] [id number] MCH (RBC) [Entitic mass] 33.4 pg High 27.0-33.0 [facility] Specialist Comment on above: Performed By: #### C BCAD, CMP, LIPD, FE Prof #### [facility] [address] [place], [place] [id number] MCHC (RBC) [Mass/Vol] 34.5 g/dL Normal 32.0-36.0 [facility] Specialist Comment on above: Performed By: #### C BCAD, CMP, LIPD, FE Prof #### [facility] [address] [place], [place] [id number] MCV (RBC) [Entitic vol] 97 fL Normal 80-100 [facility] Specialist Comment on above: Performed By: #### C BCAD, CMP, LIPD, FE Prof #### [facility] [address] [place], [place] [id number] Monocytes (Bld) [#/Vol] 0.5 10*3/uL Normal 0.2-0.9 [facility] Specialist Comment on above: Performed By: #### C BCAD, CMP, LIPD, FE Prof #### [facility] [address] [place], [place] [id number] Monocytes/100 WBC (Bld) 6.2 % Normal [facility] Comment on above: Performed By: #### C BCAD, CMP, LIPD, FE Prof #### [facility] [address] [place], [place] [id number] Neutrophils (Bld) [#/Vol] 4.2 10*3/uL Normal 1.5-7.8 [facility] Specialist Comment on above: Performed By: #### C BCAD, CMP, LIPD, FE Prof #### [facility] [address] [place], [place] [id number] Neutrophils/100 WBC (Bld) 58.5 % Normal [facility] Comment on above: Performed By: #### C BCAD, CMP, LIPD, FE Prof #### [facility] [address] [place], [place] [id number] Platelet mean volume (Bld) [Entitic vol] 8.10 fL Normal 7.50-12.50 [facility] Comment on above: Performed By: #### C BCAD, CMP, LIPD, FE Prof #### [facility] [address] [place], [place] [id number] Platelets (Bld) [#/Vol] 389 10*3/uL Normal 140-400 [facility] Specialist Comment on above: Performed By: #### C BCAD, CMP, LIPD, FE Prof #### [facility] [address] [place], [place] [id number] RBC (Bld) [#/Vol] 4.25 10*6/uL Normal 3.90-5.20 [facility] Specialist Comment on above: Performed By: #### C BCAD, CMP, LIPD, FE Prof #### [facility] [address] [place], [place] [id number] RDW-SD 44.2 fL Normal 37.0-50.0 [facility] Specialist Comment on above: Performed By: #### C BCAD, CMP, LIPD, FE Prof #### [facility] [address] [place], [place] [id number] WBC (Bld) [#/Vol] 7.2 10*3/uL Normal 3.8-11.0 [facility] [place] [facility] Comment on above: Performed By: #### C BCAD, CMP, LIPD, FE Prof #### [facility] [address] [place], [place] [id number] Comprehensive Metabolic Pane nichole 09-18-2021 Albumin [Mass/Vol] 4.5 g/dL Normal 3.6-5.1 [facility] [place] [facility] Comment on above: Performed By: #### C BCAD, CMP, LIPD, FE Prof #### [facility] [address] [place], [place] [id number] Albumin/Globulin [Mass ratio] 2.1 {ratio} Normal 1.0-2.5 [facility] Manager Comment on above: Performed By: #### C BCAD, CMP, LIPD, FE Prof #### [facility] [address] [place], [place] [id number] ALP [Catalytic activity/Vol] 64 U/L Normal 35-119 [facility] Manager Comment on above: Performed By: #### C BCAD, CMP, LIPD, FE Prof #### [facility] [address] [place], [place] [id number] ALT [Catalytic activity/Vol] 52 U/L High 6-33 [facility] Comment on above: Result Comment: 08/02 Female reference range changed. Performed By: #### C BCAD, CMP, LIPD, FE Prof #### [facility] [address] [place], [place] [id number] Anion gap [Moles/Vol] 15 mmol/L Normal 12-20 [facility] Comment on above: Result Comment: Effe ctive 09/07/2019 reference range changed. Performed By: #### C BCAD, CMP, LIPD, FE Prof #### [facility] [address] [place], [place] [id number] AST [Catalytic activity/Vol] 29 U/L Normal 9-34 [facility] Comment on above: Performed By: #### C BCAD, CMP, LIPD, FE Prof #### [facility] [address] [facility] [place] [id number] Bilirubin [Mass/Vol] 0.57 mg/dL Normal 0.30-1.20 [facility] Comment on above: Performed By: #### C BCAD, CMP, LIPD, FE Prof #### [facility] [address] [facility] [place] [id number] BUN/CREA 18 Ratio Normal 6-22 [facility] Comment on above: Performed By: #### C BCAD, CMP, LIPD, FE Prof #### [facility] [address] [facility] [place] [id number] Calcium [Mass/Vol] 9.5 mg/dL Normal 8.6-10.2 [facility] Comment on above: Performed By: #### C BCAD, CMP, LIPD, FE Prof #### [facility] [address] [facility] [place] [place] [id number] Chloride [Moles/Vol] 103 mmol/L Normal 98-107 [facility] Comment on above: Performed By: #### C BCAD, CMP, LIPD, FE Prof #### [facility] [address] [facility] [place] [place] [id number] CO2 [Moles/Vol] 27 mmol/L Normal 20-31 [facility] Comment on above: Performed By: #### C BCAD, CMP, LIPD, FE Prof #### [facility] [address] [facility] [place] [id number] Creatinine [Mass/Vol] 0.7 mg/dL Normal 0.6-1.4 [facility] Comment on above: Performed By: #### C BCAD, CMP, LIPD, FE Prof #### [facility] [address] [facility] [place] [id number] eGFRAA 112 mL/min/1.73m2 Normal >60 [facility] Comment on above: Performed By: #### C BCAD, CMP, LIPD, FE Prof #### [facility] [address] [facility] [place] [id number] eGFRNAA 92 mL/min/1.73m2 Normal >60 [employer] [place] [facility] [employer] [facility] Comment on above: Performed By: #### C BCAD, CMP, LIPD, FE Prof #### [facility] [address] [place], [place] [id number] Globulin (S) [Mass/Vol] 2.1 g/dL Normal 1.9-3.7 [facility] Manager Comment on above: Performed By: #### C BCAD, CMP, LIPD, FE Prof #### [facility] [address] [place], [place] [id number] Glucose [Mass/Vol] 123 mg/dL High 65-99 [facility] Comment on above: Result Comment: For FASTING Glucose --- ADA reference ranges: Normal 65-99 mg/dl Prediabetes 100-125 Diabetes >/= 126 Performed By: #### C BCAD, CMP, LIPD, FE Prof #### [facility] [address] [place], [place] [id number] Potassium [Moles/Vol] 3.7 mmol/L Normal 3.5-5.5 [facility] Manager Comment on above: Performed By: #### C BCAD, CMP, LIPD, FE Prof #### [facility] [address] [place], [place] [id number] Protein [Mass/Vol] 6.6 g/dL Normal 6.1-8.1 [facility] Comment on above: Performed By: #### C BCAD, CMP, LIPD, FE Prof #### [facility] [address] [place], [place] [id number] Sodium [Moles/Vol] 141 mmol/L Normal 135-146 [facility] Comment on above: Performed By: #### C BCAD, CMP, LIPD, FE Prof #### [facility] [address] [place], [place] [id number] Urea nitrogen [Mass/Vol] 12 mg/dL Normal 7-25 [facility] Comment on above: Performed By: #### C BCAD, CMP, LIPD, FE Prof #### [facility] [address] [place], [place] [id number] Iron Profileon 09-18-2021 %FESAT 38 % Normal 11-50 [facility] Comment on above: Performed By: #### C BCAD, CMP, LIPD, FE Prof #### [facility] [address] [place], [place] [id number] FE 113 ug/dL Normal 40-190 [facility] Specialist Comment on above: Result Comment: Refe jonathan range change 07/19/2017. Prior reference range F 37-145 ug/dL, M 59-158 ug/dL. Performed By: #### C BCAD, CMP, LIPD, FE Prof #### [facility] [address] [place], [place] [id number] TIBC 297 ug/dL Normal 250-450 [facility] Specialist Comment on above: Performed By: #### C BCAD, CMP, LIPD, FE Prof #### [facility] [address] [place], [place] [id number] UIBC 184 ug/dL Normal 112-347 [facility] Specialist Comment on above: Performed By: #### C BCAD, CMP, LIPD, FE Prof #### [facility] [address] [place], [place] [id number] Lipid Panelon 09-18-2021 Cholesterol [Mass/Vol] 238 mg/dL High 125-200 [facility] Specialist Comment on above: Result Comment: Low risk < 200mg/dL Borderline risk 201-239 mg/dl High risk > or equal to 240 Performed By: #### C BCAD, CMP, LIPD, FE Prof #### [facility] [address] [place], [place] [id number] Cholesterol in HDL [Mass/Vol] 42 mg/dL Normal >40 [facility] Comment on above: Result Comment: High Cardiovascular Risk HDL <40 mg/dL Low Cardiovascular Risk HDL > or equal to 60 mg/dl Performed By: #### C BCAD, CMP, LIPD, FE Prof #### [facility] [address] [place], [place] [id number] Cholesterol in LDL [Mass/Vol] 131 mg/dL Normal [facility] Specialist Comment on above: Result Comment: LDL ATP III CLASSIFICATION LDL less than 100 mg/dl Optimal LDL 100-129 mg/dl Near or above optimal LDL 130-159 Borderline high LDL 160-189 High LDL greater than 189 mg/dl Very High Performed By: #### C BCAD, CMP, LIPD, FE Prof #### [facility] [address] [place], [place] [id number] Cholesterol in VLDL [Mass/Vol] 65 mg/dL Normal [facility] Specialist Comment on above: Performed By: #### C BCAD, CMP, LIPD, FE Prof #### [facility] [address] [place], [place] [id number] Cholesterol.total/Ch olesterol in HDL [Mass ratio] 6 {ratio} Normal [facility] Specialist Comment on above: Performed By: #### C BCAD, CMP, LIPD, FE Prof #### [facility] [address] [place], [place] [id number] Triglyceride [Mass/Vol] 326 mg/dL High 30-150 [facility] Specialist Comment on above: Result Comment: TRIG ATPIII CLASSIFICATIONS TRIG less than 150 mg/dl Normal TRIG 150-199 mg/dl Borderline High TRIG 200-500 mg/dl High TRIG greather than 500 mg/dl Very High Performed By: #### C BCAD, CMP, LIPD, FE Prof #### [facility] [address] [place] [id number] KNEE RIGHT 3 [facility] 0 KNEE RIGHT 3 [facility] Department of Radiology [address] [place] [id number] Patient Name: LINDA ALVARADO : 1975 Sex: F Age: Race: White Pt. Location: Patient Status: O Ordered Date: 03/31/2020 1:55:00 PM Completed Date: 03/31/2020 01:59 PM Requesting Provider: JONAS BISHPO Attending Provider: JONAS BISHOP Report Copy To: Signs & Symptoms: S82.101D Unsp fx upper end of r tibia, subs for clos fx w routn heal I10 History: [place] Comments: Weight Bearing?: Y Exam: KNEE RIGHT 3 [facility] KNEE RIGHT 3 [facility] 03/31/2020 1:59 PM CLINICAL INDICATIONS: S82.101D Unsp [...] fracture Electronically signed: Jonas Robbins. Transcribed by: [email or web address], User Resident: Electronically Signed by: JONAS ROBBINS @ 03/31/2020 02:03 PM Normal [facility] Comment on above: Order Comment: Weigh t Bearing?: Y KNEE RIGHT 3 [facility] 0 KNEE RIGHT 3 [facility] Department of Radiology [address] [place] [phone] Patient Name: LINDA ALVARADO : 1975 [...] BISHOP PA-C , Exam: KNEE RIGHT 3 [facility] KNEE RIGHT 3 [facility] 10/12/2019 11:29 AM SIGNS AND SYMPTOMS: S82.101D [...] alignment Electronically signed: Ying Enriquez. Transcribed by: [email or web address], User Resident: Electronically Signed by: YING ENRIQUEZ @ 10/12/2019 12:10 PM Normal [facility] Comment on above: Order Comment: , , = ========= , Ordering Provider - JONAS BISHOP PA-C , KNEE RIGHT 1 OR 2 [facility] 09-02 KNEE RIGHT 1 OR 2 [facility] Department of Radiology [address] [place] [address] Patient Name: LINDA ALVARADO : [...] healing Electronically signed: Stephanie Navarro. Transcribed by: [email or web address], User Resident: Electronically Signed by: STEPHANIE NAVARRO @ 09/14/2019 05:22 PM Normal [facility] Comment on above: Order Comment: , , = ========= , Ordering Provider - JONAS BISHOP PA-C , KNEE RIGHT 1 OR 2 [facility] 08-02 KNEE RIGHT 1 OR 2 [facility] Department of Radiology [address] [place] [phone] Patient Name: LINDA ALVARADO : 1975 [...] , Exam: KNEE RIGHT 1 OR 2 [facility] KNEE RIGHT 1 OR 2 [facility] 08/17/2019 [...] effusion Electronically signed by:Stephanie Navarro. Transcribed by: [email or web address], User Resident: Electronically Signed by: STEPHANIE NAVARRO @ 08/17/2019 03:52 PM Normal [facility] Comment on above: Order Comment: , Katherine ws (X-RAY, KNEE): AP, Lateral , Views (X- RAY, KNEE): AP, Lateral , , , Ordering Provider - JONAS BISHOP PA-C , VITAMIN D 25-HYDROXYon 08-17 VITAMIN D 25-OH 35.4 ng/mL Normal 30.0-80.0 [facility] Comment on above: Result Comment: >80. 0 Toxicity possible Performed By: #### 5 6101, [id number] #### [place] [address], [facility] KNEE RIGHT 1 OR 2 [facility] 07-03 KNEE RIGHT 1 OR 2 [facility] Department of Radiology [address] [place] [phone] Patient Name: LINDA ALVARADO : 1975 [...] tibial plateau fracture. Incomplete healing Electronically signed by:Stephaine Navarro. Transcribed by: [email or web address], User Resident: Electronically Signed by: STEPHANIE NAVARRO @ 07/20/2019 05:04 PM Normal [facility] Comment on above: Order Comment: , , = ========= , Ordering Provider - SHWETA VIDAL PA-C , BASIC METABOLIC PANELon 11-0 Calcium [Mass/Vol] 8.8 mg/dL Normal 8.6-10.3 [facility] Comment on above: Order Comment: No: D o not add to previous draw Performed By: #### 5 6101, [id number] #### [facility] [address] [place] [address], [place] Chloride [Moles/Vol] 99 mmol/L Normal 98-107 [facility] Comment on above: Order Comment: No: D o not add to previous draw Performed By: #### 5 610, 98412 #### [facility] [address] [place] [address], [place] CO2 [Moles/Vol] 27 mmol/L Normal 21-31 [facility] Comment on above: Order Comment: No: D o not add to previous draw Performed By: #### 5 610, 22276 #### [facility] [address] [place] [address], [place] Creatinine [Mass/Vol] 0.81 mg/dL Normal 0.60-1.20 [facility] Comment on above: Order Comment: No: D o not add to previous draw Performed By: #### 5 610, 44782 #### [facility] [address] [place] [address], [place] GFR/1.73 sq M predicted among blacks MDRD (S/P/Bld) [Vol rate/Area] mL/min/{1.73_m2} Normal >60 [facility] Comment on above: Order Comment: No: D o not add to previous draw Performed By: #### 5 610, 11760 #### [facility] [address] [place] [id number], [facility] GFR/1.73 sq M predicted among non-blacks MDRD (S/P/Bld) [Vol rate/Area] mL/min/{1.73_m2} Normal >60 [facility] Comment on above: Order Comment: No: D o not add to previous draw Performed By: #### 5 610, 96780 #### [facility] [address] [place] [address], [place] Glucose [Mass/Vol] 105 mg/dL High 70-100 The [facility] Comment on above: Order Comment: No: D o not add to previous draw Performed By: #### 5 610, 63445 #### [facility] [address] [place] [address], [place] Potassium [Moles/Vol] 3.8 mmol/L Normal 3.5-5.1 [facility] Comment on above: Order Comment: No: D o not add to previous draw Performed By: #### 5 610, 89563 #### [facility] [address] [place] [address], [facility] Sodium [Moles/Vol] 133 mmol/L Low 136-145 [facility] Comment on above: Order Comment: No: D o not add to previous draw Performed By: #### 5 6101, 17565 #### [facility] [address] [place] [address], [facility] Urea nitrogen [Mass/Vol] 10 mg/dL Normal 7-25 [facility] Comment on above: Order Comment: No: D o not add to previous draw Performed By: #### 5 6101, 86048 #### [facility] [address] [place] [address], [place] CBC COMPLETE BLOOD COUNTon 09-07-2018 Erythrocyte distribution width (RBC) [Ratio] 13.3 % Normal 11.5-15.0 [facility] Comment on above: Order Comment: No: D o not add to previous draw Performed By: #### 5 6100, 32117 #### [facility] [address] [place] [id number], [facility] Hematocrit (Bld) [Volume fraction] 36.1 % Normal 36.0-45.0 [facility] Comment on above: Order Comment: No: D o not add to previous draw Performed By: #### 5 6100, 65230 #### [facility] [address] [place] [address], [facility] Hemoglobin (Bld) [Mass/Vol] 11.6 g/dL Low 12.0-15.0 [facility] Comment on above: Order Comment: No: D o not add to previous draw Performed By: #### 5 6100, 92871 #### [facility] [address] [place] [address], [facility] MCH (RBC) [Entitic mass] 31.2 pg Normal 27.0-33.0 [facility] Comment on above: Order Comment: No: D o not add to previous draw Performed By: #### 5 6100, 40204 #### [facility] [address] [place] [id number], [facility] MCHC (RBC) [Mass/Vol] 32.1 g/dL Normal 32.0-35.0 [facility] Comment on above: Order Comment: No: D o not add to previous draw Performed By: #### 5 6100, 48342 #### [facility] [address] [place] [address], [facility] MCV (RBC) [Entitic vol] 97.0 fL Normal 82.0-98.0 [facility] Comment on above: Order Comment: No: D o not add to previous draw Performed By: #### 5 610, 78507 #### [facility] [address] [place] [address], [place] Nucleated RBC/100 WBC (Bld) [Ratio] 0 % Normal 0-0 [facility] Comment on above: Order Comment: No: D o not add to previous draw Performed By: #### 5 6101, 79115 #### [facility] [address] [place] [address], [facility] PLAT CNT 447 10*3/uL High 150-400 The [facility] Comment on above: Order Comment: No: D o not add to previous draw Performed By: #### 5 610, 15631 #### [facility] [address] [place] [address], [facility] RBC (Bld) [#/Vol] 3.72 10*6/uL Low 3.80-5.00 [facility] Comment on above: Order Comment: No: D o not add to previous draw Performed By: #### 5 6101, 44697 #### [facility] [address] [place] [address], [facility] WBC (Bld) [#/Vol] 16.46 10*3/uL High 4.00-10.60 [facility] Comment on above: Order Comment: No: D o not add to previous draw Performed By: #### 5 6101, 43957 #### [facility] [address] [facility]. [address] *MRSA/MSSA DNA NASALon 07-07 *MRSA/MSSA DNA NASAL Clinical Report: (D ) Specimen: NASAL SWAB Collected: 07/07/2019 08:00 Status: Final Last Updated: 07/07/2019 14:28 MSSA DNA (Final) Methicillin Susceptible Staphylococcus aureus DNA Detected MRSA DNA (Final) Negative Normal [facility] Comment on above: Performed By: #### 5 6101, 56443 #### [facility] [address] [facility] APTTon 07-07-2019 aPTT Coag (Bld) [Time] 38.8 s High 25.0-35.0 [facility] Comment on above: Result [...] THIS PURPOSE. Performed By: #### 5 6101, 17291 #### [facility] [address] CBC W/DIFFon 07-07-2019 ABS BASOPHILS 0.1 10*3/uL Normal 0.0-0.2 The [facility] Comment on above: Performed By: #### 5 0103 #### [facility] [address] ABS IMM GRANS 0.0 10*3/uL Normal 0.0-0.2 The [facility] Comment on above: Performed By: #### 5 0103 #### [facility] [address] ABS NEUTROPHILS 4.9 10*3/uL Normal 1.6-7.6 The [facility] Comment on above: Performed By: #### 5 0103 #### [facility] [address] Basophils/100 WBC (Bld) 1.0 % Normal 0.0-1.0 [facility] Comment on above: Performed By: #### 5 0103 #### [facility] [address] Eosinophils (Bld) [#/Vol] 0.2 10*3/uL Normal 0.0-0.5 [facility] Comment on above: Performed By: #### 5 3 #### [facility] [address] Eosinophils/100 WBC (Bld) 3.0 % Normal 0.0-6.0 [facility] Comment on above: Performed By: #### 0103 #### [facility] [address] Erythrocyte distribution width (RBC) [Ratio] 13.3 % Normal 11.5-15.0 [facility] Comment on above: Performed By: #### 3 #### [facility] [address] [place] [address], [facility] Hematocrit (Bld) [Volume fraction] 36.9 % Normal 36.0-45.0 [facility] Comment on above: Performed By: #### 3 #### [facility] [address] [facility]. [address] Hemoglobin (Bld) [Mass/Vol] 12.2 g/dL Normal 12.0-15.0 [facility] Comment on above: Performed By: #### 3 #### [facility] [address] [facility]. [address] IMMATURE GRANS 0.5 % Normal 0.0-1.0 The [facility] Comment on above: Performed By: #### 102 #### [facility] [address] [facility] [place] [address], [facility] Lymphocytes (Bld) [#/Vol] 2.0 10*3/uL Normal 1.2-4.0 [facility] Comment on above: Performed By: #### 5 3 #### [facility] [address] [place] [address], [facility] Lymphocytes/100 WBC (Bld) 25.3 % Normal 20.0-45.0 [facility] Comment on above: Performed By: #### 3 #### [facility] [address] [place] [address], [facility] MCH (RBC) [Entitic mass] 31.4 pg Normal 27.0-33.0 [facility] Comment on above: Performed By: #### 5 0103 #### [facility] [address] [facility] [address] MCHC (RBC) [Mass/Vol] 33.1 g/dL Normal 32.0-35.0 [facility] Comment on above: Performed By: #### 5 3 #### [facility] [address] [place] [address], [facility] MCV (RBC) [Entitic vol] 95.1 fL Normal 82.0-98.0 [facility] Comment on above: Performed By: #### 102 #### [facility] [address] [place] [address], [facility] Monocytes (Bld) [#/Vol] 0.6 10*3/uL Normal 0.1-1.0 [facility] Comment on above: Performed By: #### 102 #### [facility] [address] [facility]. [address] MONOS 7.3 % Normal 5.0-12.0 [facility] Comment on above: Performed By: #### 5 3 #### [facility] [address] Neutrophils/100 WBC (Bld) 62.9 % Normal 40.0-72.0 [facility] Comment on above: Performed By: #### 3 #### [facility] [address] Nucleated RBC/100 WBC (Bld) [Ratio] 0 % Normal 0-0 [facility] Comment on above: Performed By: #### 5 3 #### [facility] [address] [facility] [place] [place] [address], [facility] PLAT CNT 392 10*3/uL Normal 150-400 The [facility] Comment on above: Performed By: #### 5 3 #### [facility] [address] RBC (Bld) [#/Vol] 3.88 10*6/uL Normal 3.80-5.00 [facility] Comment on above: Performed By: #### 5 0103 #### [facility] [address] WBC (Bld) [#/Vol] 7.72 10*3/uL Normal 4.00-10.60 The [facility] Comment on above: Performed By: #### 5 0103 #### [facility] [address] COMP METABOLIC PANELon 07-07 Albumin [Mass/Vol] 3.9 g/dL Normal 3.5-5.7 [facility] Comment on above: Performed By: #### 0 0121 #### [facility] [address] ALKALINE PHOSPH 58 IU/L Normal 34-104 [facility] Comment on above: Performed By: #### 0 0121 #### [facility] [address] ALT [Catalytic activity/Vol] 55 U/L High 7-52 [facility] Comment on above: Performed By: #### 0 0121 #### [facility] [address] AST [Catalytic activity/Vol] 39 U/L Normal 13-39 [facility] Comment on above: Performed By: #### 0 0121 #### [facility] [address] Bilirubin [Mass/Vol] 0.4 mg/dL Normal 0.3-1.0 [facility] Comment on above: Performed By: #### 0 0121 #### [facility] [address] [place] [address], [facility] Calcium [Mass/Vol] 9.0 mg/dL Normal 8.6-10.3 The [facility] Comment on above: Performed By: #### 0 0121 #### [facility] [address] [place] [address], [place] Chloride [Moles/Vol] 104 mmol/L Normal 98-107 [facility] Comment on above: Performed By: #### 0 0121 #### [facility] [address] [place] [address], [place] CO2 [Moles/Vol] 25 mmol/L Normal 21-31 The [facility] Comment on above: Performed By: #### 0 0121 #### [facility] [address] [place] [address], [place] Creatinine [Mass/Vol] 0.81 mg/dL Normal 0.60-1.20 [facility] Comment on above: Performed By: #### 0 0121 #### [facility] [address] [place] [address], [place] GFR/1.73 sq M predicted among blacks MDRD (S/P/Bld) [Vol rate/Area] mL/min/{1.73_m2} Normal >60 [facility] Comment on above: Performed By: #### 0 0121 #### [facility] [address] [place] [address], [place] GFR/1.73 sq M predicted among non-blacks MDRD (S/P/Bld) [Vol rate/Area] mL/min/{1.73_m2} Normal >60 [facility] Comment on above: Performed By: #### 0 0121 #### [facility] [address] [place] [address], [place] Glucose [Mass/Vol] 112 mg/dL High 70-100 [facility] Comment on above: Performed By: #### 0 0121 #### [facility] [address] [place] [address], [facility] Potassium [Moles/Vol] 3.5 mmol/L Normal 3.5-5.1 [facility] Comment on above: Performed By: #### 0 0121 #### [facility] [address] [place] [address], [facility] Protein [Mass/Vol] 6.9 g/dL Normal 6.0-8.3 The [facility] Comment on above: Performed By: #### 0 0121 #### [facility] [address] [place] [address], [facility] Sodium [Moles/Vol] 134 mmol/L Low 136-145 The [facility] Comment on above: Performed By: #### 0 0121 #### [facility] [address] [place] [address], [facility] Urea nitrogen [Mass/Vol] 10 mg/dL Normal 7-25 [facility] Comment on above: Performed By: #### 0 0121 #### [facility] [address] [place] [address], [facility] CT 3D LOWER EXTREMITY WO CON TRAST RIGHTon 07-07-2019 CT 3D LOWER EXTREMITY WO CONTRAST RIGHT [facility] Department of Radiology [address] [place] [id number] Patient Name: LINDA ALVARADO : 1975 Sex: F Age: Race: White Pt. Location: [facility] Patient Status: I Ordered Date: 07/07/2019 [...] findings. Electronically signed by:Ying Enriquez. Transcribed by: [email or web address], User Resident: JANET HARRINGTON Electronically Signed by: YING ENRIQUEZ @ 07/07/2019 07:01 AM I personally read this/these film(s) with this resident Normal [facility] Comment on above: Order Comment: R/O F ractures, right leg from mid femur down to ankle KNEE RIGHT 1 OR 2 VWSon KNEE RIGHT 1 OR 2 S [facility] Department of Radiology [address] [place] [id number] Patient Name: LINDA ALVARADO : 1975 Sex: F Age: Race: White Pt. Location: [id number] Patient Status: I Ordered Date: 07/07/2019 7:20:00 AM Completed Date: 07/07/2019 01:35 PM Requesting Provider: IAN KU Attending Provider: IAN KU Report Copy To: Signs & Symptoms: orif tibial plateau right, possible ex-fix History: orif tibial plateau right, possible ex-fix Comments: orif tibial plateau right, possible ex-fix Exam: KNEE RIGHT 1 OR 2 [facility] KNEE RIGHT 1 OR 2 [facility] 07/07/2019 1:35 PM EST SIGNS AND SYMPTOMS: orif tibial plateau right, possible ex-fix TECHNOLOGIST COMMENTS: Intra op right knee, ORIF tibial plateau, with Dr. Ku, 48 sec of fluoro used QUESTION FOR THE RADIOLOGIST: orif tibial plateau right, possible ex-fix PROTOCOL: AP(PA) and Lateral views were obtained. COMPARISON: None FINDINGS: Soft tissues: Bones: Joints: IMPRESSION: Documentation Electronically signed by:Ying Enriquez. Transcribed by: [email or web address], User Resident: Electronically Signed by: YING ENRIQUEZ @ 07/07/2019 01:40 PM Normal [facility] Comment on above: Order Comment: orif tibial plateau right, possible ex-fix Operative Reporton 9 Operative Report MR#: [id number] I [facility] Pt. Name: Linda Alvarado Room #: [id number] Discharge Date: Birthdate: 1975 OPERATIVE REPORT DATE [...] Cruz MD Date Trans: 07/07/2019 01:02 P/kelin [id number] cc: Elver Mendenhall M.D. [address] [place] [address] Leslye Doss M.D. E R Physican...do Not Send [address] [place] [id number] Normal [facility] POC GLUCOSE LABon 07-07-2019 Glucose [Mass/Vol] 92 mg/dL Normal 70-100 The [facility] Comment on above: Performed By: #### 8 5499 #### [facility] [address] [facility] [address], [facility] POC URINE PREGNANCYon 2018 Beta HCG ( test) Ql (U) Negative Normal NEGATIVE [facility] Comment on above: Result Comment: Perf ormed in Emergency Department. Performed By: #### 8 6540 #### [facility] [address] PROTHROMBIN TIMEon 9 INR Coag (PPP) [Relative time] 1.12 {INR} Normal 0.91-1.16 [facility] Comment on above: Result [...] CHEST 1995;108:231S-246S. Performed By: #### 5 6101, 72681 #### [facility] [address] [place] [address], [facility] PT Coag (PPP) [Time] 14.5 s Normal 12.3-14.8 [facility] Comment on above: Result Comment: ALL RESULTS MUST BE INTERPRETED WITH RESPECT TO BLOOD DRAWING ARTIFACT OR DILUTION ERROR OF ANTICOAGULANT AT THE TIME OF SAMPLING. Performed By: #### 5 6101, 50177 #### [facility] [address] [facility] [place] [address], [facility] RBC'S 2 UNITSon 07-07-2019 CROSSMATCH INTERP 1 COMP Normal The [facility] Comment on above: Performed By: #### 8 6002 #### [facility] [address] [facility] [place] [address], [facility] CROSSMATCH INTERP 2 COMP Normal [facility] Comment on above: Performed By: #### 8 6002 #### [facility] [address] [place] [address], [facility] PRODUCT CODE 1 E0336 Normal The [facility] Comment on above: Performed By: #### 8 6002 #### [facility] [address] [place] [address], [facility] PRODUCT CODE 2 E0678 Normal The [facility] Comment on above: Performed By: #### 8 6002 #### [facility] [address] [place] [address], [facility] PRODUCT STATUS 1 RE Normal The [facility] Comment on above: Result Comment: Resu lt changed by IF on 07/11/2019 09:02. The previous value was XM. Performed By: #### 8 6002 #### [facility] [address] [place] [address], [facility] PRODUCT STATUS 2 RE Normal [facility] Comment on above: Result Comment: Resu lt changed by IF on 07/11/2019 09:02. The previous value was XM. Performed By: #### 8 6002 #### [facility] [address] [place] [address], [facility] UNIT ABO 1 O Normal [facility] Comment on above: Performed By: #### 8 6002 #### [facility] [address] [place] [address], [facility] UNIT ABO 2 O Normal [facility] Comment on above: Performed By: #### 8 6002 #### [facility] [address] [place] [address], [facility] UNIT ID 1 [id number] Normal The [facility] Comment on above: Performed By: #### 8 6002 #### [facility] [address] UNIT ID 2 [id number] Normal The [facility] Comment on above: Performed By: #### 8 6002 #### [facility] [address] UNIT RH 1 Negative Normal [facility] Comment on above: Performed By: #### 8 6002 #### [facility] [address] UNIT RH 2 Negative Normal [facility] Comment on above: Performed By: #### 8 6002 #### [facility] [address] TYPE AND SCREENon 07-07-2019 ABO INTERPRETATION O Normal [facility] Comment on above: Performed By: #### 6 2586 #### [facility] [address] RH INTERPRETATION Negative Normal [facility] Comment on above: Performed By: #### 6 2586 #### [facility] [address] XR KNEE RT 4V OR >on 019 XR KNEE RT 4V OR > Patient: LINDA ALVARADO Exam Date: 07/06/2019 : 1975 Gender:F Ordering : LISHA HUSAIN Admission #: [id number] Family : Order #: [id number] CLICK HERE TO VIEW EXAM RADIOLOGY REPORT [...] Proctor M.D. on 07/07/2019 at 07:26 Normal [facility] ECHOCARDIO M/2D COMPLETEon 1 ECHOCARDIO M/2D COMPLETE Patient: LINDA ALVARADO Exam Date: 06/08/2019 : 1975 Gender:F Ordering : DR GITA HUSAIN Admission #: [id number] Family : Order #: [id number] CLICK HERE TO VIEW EXAM ECHOCARDIOGRAM REPORT [...] Area(A4C): 17.60 cm2 Left Atrium Systolic Volume(A2C): 22269 mm3 Left Atrium Systolic Volume(A4C): 57240 mm3 Mitral Valve MV E to A [...] Elmore M.D. on 06/09/2019 at 13:09 Normal [facility] CBC AUTO DIFFon 05-23-2019 Basophils (Bld) [#/Vol] 0.1 103/ul Normal 0.0-0.1 [facility] Comment on above: Performed By: #### L IPA, CMP #### [facility] [address] [place], [place] [phone] Jose Gita Basophils/100 WBC (Bld) 1.4 % Normal 0.2-2.0 [facility] Comment on above: Performed By: #### L IPA, CMP #### [facility] [address] [place], [place] [address] Jose Gita Eosinophils (Bld) [#/Vol] 0.3 103/ul Normal 0.0-0.7 [facility] Comment on above: Performed By: #### L IPA, CMP #### [facility] [address] [place] [id number] Jose Gita Eosinophils/100 WBC (Bld) 2.9 % Normal 0.9-7.0 [facility] Comment on above: Performed By: #### L IPA, CMP #### [facility] [address] [place] [id number] Jose Gita Erythrocyte distribution width (RBC) [Ratio] 13.5 % Normal 11.0-15.0 [facility] Comment on above: Performed By: #### L IPA, CMP #### [facility] [address] [place] [address] Jose Gita Hematocrit (Bld) [Volume fraction] 37.3 % Normal 36.0-48.0 [facility] Comment on above: Performed By: #### L IPA, CMP #### [facility] [address] [place] [address] Jose Gita Hemoglobin (Bld) [Mass/Vol] 12.5 g/dL Normal 12.0-16.0 The [facility] Comment on above: Performed By: #### L IPA, CMP #### [facility] [address] [place] [address] Jose Gita IG # 0.05 10e3/ul Critically high 0.00-0.03 [facility] Comment on above: Performed By: #### L IPA, CMP #### [facility] [address] [place] [address] Jose Gita IG % 0.6 % Critically high 0.0-0.5 [facility] Comment on above: Performed By: #### L IPA, CMP #### [facility] [address] [place] [address] Jose Gita Lymphocytes (Bld) [#/Vol] 2.4 103/ul Normal 1.2-3.8 The [facility] Comment on above: Performed By: #### L IPA, CMP #### [facility] [address] [place] [address] Jose Gita Lymphocytes/100 WBC (Bld) 27.2 % Normal 20.5-60.0 The [facility] Comment on above: Performed By: #### L IPA, CMP #### [facility] [address] [place] [address] Jose Gita MANUAL DIFF REQ NO Normal [facility] Comment on above: Performed By: #### L IPA, CMP #### [facility] [address] [place] [address] Jose Gita MCH (RBC) [Entitic mass] 32.1 pg Normal 26.7-34.0 The [facility] Comment on above: Performed By: #### L IPA, CMP #### [facility] [address] [place], [place] [phone] Jose Pelayo MCHC (RBC) [Mass/Vol] 33.5 g/dL Normal 29.9-35.2 The [facility] Comment on above: Performed By: #### L IPA, CMP #### [facility] [address] [place], [place] [phone] Josetripp Pelayo MCV (RBC) [Entitic vol] 95.6 fL Normal 81.0-99.0 [facility] Comment on above: Performed By: #### L IPA, CMP #### [facility] [address] [place], [place] [phone] Jose Gita Monocytes (Bld) [#/Vol] 0.8 103/ul Normal 0.3-0.8 [facility] [facility] Comment on above: Performed By: #### L IPA, CMP #### [facility] [address] [place], [place] [id number] Jose Gita Monocytes/100 WBC (Bld) 8.7 % Normal 1.7-12.0 [facility] Comment on above: Performed By: #### L IPA, CMP #### [facility] [address] [place], [place] [phone] Jose Gita Neutrophils (Bld) [#/Vol] 5.2 103/ul Normal 1.4-6.5 [facility] Comment on above: Performed By: #### L IPA, CMP #### [facility] [address] [place], [place] [phone] Jose Gita Neutrophils/100 WBC (Bld) 59.2 % Normal 43.0-75.0 [facility] Comment on above: Performed By: #### L IPA, CMP #### [facility] [address] [place], [place] [phone] Jose Gita Platelet mean volume (Bld) [Entitic vol] 8.8 fL Critically low 9.5-13.5 [facility] Comment on above: Performed By: #### L IPA, CMP #### [facility] [address] [place], [place] [address] Josetripp Pelayo Platelets (Bld) [#/Vol] 401 103/ul Normal 150-450 [facility] Comment on above: Performed By: #### L IPA, CMP #### [facility] [address] [place] [address] Jose Gita RBC (Bld) [#/Vol] 3.90 106/ul Critically low 4.20-5.40 Th [facility] Comment on above: Performed By: #### L IPA, CMP #### [facility] [address] [id number] Josetripp Pelayo WBC (Bld) [#/Vol] 8.7 103/ul Normal 4.0-11.0 [facility] Comment on above: Performed By: #### L IPA, CMP #### [facility] [address] [place], [place] [phone] Josetripp Pelayo D-DIMERon 05-23-2019 D-DIMER COMMENTS SEE BELOW Normal The [facility] Comment on above: Result Comment: Incr eases [...] Performed By: #### L IPA, CMP #### [facility] [address] [place] [address] Josetripp Pelayo Fibrin D-dimer FEU IA (Bld) [Mass/Vol] 0.19 ug/mL Normal 0.19-0.50 [facility] Comment on above: Performed By: #### L IPA, CMP #### [facility] [address] [place] [phone] Jose Gita PREG HCG QUALon 05-23-2019 , QUAL Negative Normal NEGATIVE [facility] Comment on above: Performed By: #### L IPA, CMP #### [facility] [address] [address] Jose Gita PROF CHEM 8 (BAS METB)on Anion gap [Moles/Vol] 10.9 mmol/L Normal [facility] Comment on above: Performed By: #### L IPA, CMP #### [facility] [address] [place] [address] Jose Gita Calcium [Mass/Vol] 9.3 mg/dL Normal 8.4-10.2 [facility] Comment on above: Performed By: #### L IPA, CMP #### [facility] [address] [address] Jose Gita Chloride [Moles/Vol] 104 mmol/L Normal 98-107 [facility] Comment on above: Performed By: #### L IPA, CMP #### [facility] [address] [place] [address] Jose Gita CO2 [Moles/Vol] 28.7 mmol/L Normal 22.0-30.0 [facility] Comment on above: Performed By: #### L IPA, CMP #### [facility] [address] [place] [address] Jose Gita Creatinine [Mass/Vol] 0.91 mg/dL Normal 0.52-1.04 [facility] Comment on above: Performed By: #### L IPA, CMP #### [facility] [address] [place] [address] Jose Gita EGFR-AF CROATIAN >60 Normal >=60 The [facility] Comment on above: Performed By: #### L IPA, CMP #### [facility] [address] [address] Jose Gita EGFR-NON AF CROATIAN >60 Normal >=60 [facility] Comment on above: Performed By: #### L IPA, CMP #### [facility] [address] [place] [address] Jose Gita Glucose [Mass/Vol] 97 mg/dL Normal 74-106 [facility] Comment on above: Performed By: #### L IPA, CMP #### [facility] [address] [phone] Jose Gita Potassium [Moles/Vol] 3.6 mmol/L Normal 3.4-5.0 [facility] Comment on above: Performed By: #### L IPA, CMP #### [facility] [address] [phone] Jose Gita Sodium [Moles/Vol] 140 mmol/L Normal 137-145 [facility] Comment on above: Performed By: #### L IPA, CMP #### [facility] [address] [phone] Jose Gita Urea nitrogen [Mass/Vol] 10.0 mg/dL Normal 7.0-17.0 [facility] Comment on above: Performed By: #### L IPA, CMP #### [facility] [address] [phone] Jose Gita Urea nitrogen/Creatinine [Mass ratio] 11.0 mg/mg Normal [facility] Comment on above: Performed By: #### L IPA, CMP #### [facility] [address] [phone] Jose Gita PROTIMEon 05-23-2019 INR Coag (PPP) [Relative time] 1.03 {INR} Normal [facility] Comment on above: Performed By: #### L IPA, CMP #### [facility] [address] [place], [place] [phone] Jose Gita PT Coag (PPP) [Time] SEE BELOW Normal [facility] Comment on above: Result Comment: SELENE RED INR: 2.0 - 3.0 CONDITIONS NOT LISTED BELOW 2.5 - 3.5 FOR PROSTHETIC HEART VALVE REPLACEMENT 2.5 - 3.5 RECURRENT THROMBOSIS Performed By: #### L IPA, CMP #### [facility] [address] [place], [place] [phone] Jose Gita PT Coag (PPP) [Time] PLEASE NOTE: NORMAL RANGE CHANGE 05-20-2014 DUE TO REAGENT LOT CHANGE Normal [facility] Comment on above: Performed By: #### L IPA, CMP #### [facility] [address] [phone] Jose Gita PT Coag (PPP) [Time] 10.7 s Normal 9.0-11.6 [facility] Comment on above: Performed By: #### L IPA, CMP #### [facility] [address] [place], [place] [phone] Jose Pelayo PTTon 05-23-2019 aPTT Coag (Bld) [Time] 27.8 s Normal 22.3-36.2 [facility] Comment on above: Performed By: #### L IPA, CMP #### [facility] [address] [place], [place] [phone] Jose Gita aPTT Coag (Bld) [Time] PLEASE NOTE: NORMAL RANGE CHANGE 07-27-2015 DUE TO REAGENT LOT CHANGE Normal [facility] Comment on above: Performed By: #### L IPA, CMP #### [facility] [address] [place] [address] Jose Gita CBC AUTO DIFFon 12-28-2018 Basophils (Bld) [#/Vol] 0.1 103/ul Normal 0.0-0.1 [facility] Comment on above: Performed By: #### C BC #### [facility] [address] [place], [place] [phone] Jose Gita Basophils/100 WBC (Bld) 1.2 % Normal 0.2-2.0 [facility] Comment on above: Performed By: #### C BC #### [facility] [address] [place], [place] [address] Jose Gita Eosinophils (Bld) [#/Vol] 0.2 103/ul Normal 0.0-0.7 [facility] Comment on above: Performed By: #### C BC #### [facility] [address] [place], [place] [address] Jose Gita Eosinophils/100 WBC (Bld) 5.9 % Normal 0.9-7.0 [facility] Comment on above: Performed By: #### C BC #### [facility] [address] [place], [place] [address] Jose Gita Erythrocyte distribution width (RBC) [Ratio] 13.7 % Normal 11.0-15.0 [facility] Comment on above: Performed By: #### C BC #### [facility] [address] [place] [address] Josetripp Pelayo Hematocrit (Bld) [Volume fraction] 36.3 % Normal 36.0-48.0 [facility] Comment on above: Performed By: #### C BC #### [facility] [address] [place], [place] [address] Jose Gita Hemoglobin (Bld) [Mass/Vol] 12.1 g/dL Normal 12.0-16.0 [facility] Comment on above: Performed By: #### C BC #### [facility] [address] [place] [address] Josetripp Pelayo IG # 0.01 10e3/ul Normal 0.00-0.03 [facility] Comment on above: Performed By: #### C BC #### [facility] [address] [place] [address] Josetripp Pelayo IG % 0.2 % Normal 0.0-0.5 [facility] Comment on above: Performed By: #### C BC #### [facility] [address] [place] [address] Josetripp Pelayo Lymphocytes (Bld) [#/Vol] 1.2 103/ul Normal 1.2-3.8 [facility] Comment on above: Performed By: #### C BC #### [facility] [address] [place], [place] [address] Jose Pelayo Lymphocytes/100 WBC (Bld) 30.3 % Normal 20.5-60.0 [facility] Comment on above: Performed By: #### C BC #### [facility] [address] [place], [place] [address] Jose Pelayo MANUAL DIFF REQ NO Normal [facility] Comment on above: Performed By: #### C BC #### [facility] [address] [place], [place] [phone] Jose Pelayo MCH (RBC) [Entitic mass] 32.2 pg Normal 26.7-34.0 [facility] Comment on above: Performed By: #### C BC #### [facility] [address] [place], [place] [address] Jose Gita MCHC (RBC) [Mass/Vol] 33.3 g/dL Normal 29.9-35.2 [facility] Comment on above: Performed By: #### C BC #### [facility] [address] [place], [place] [address] Jose Gita MCV (RBC) [Entitic vol] 96.5 fL Normal 81.0-99.0 [facility] Comment on above: Performed By: #### C BC #### [facility] [address] [place], [place] [address] Jose Gita Monocytes (Bld) [#/Vol] 0.4 103/ul Normal 0.3-0.8 [facility] Comment on above: Performed By: #### C BC #### [facility] [address] [place], [place] [address] Jose Gita Monocytes/100 WBC (Bld) 9.4 % Normal 1.7-12.0 [facility] Comment on above: Performed By: #### C BC #### [facility] [address] [place], [place] [address] Jose Gita Neutrophils (Bld) [#/Vol] 2.2 103/ul Normal 1.4-6.5 [facility] Comment on above: Performed By: #### C BC #### [facility] [address] [place], [place] [address] Jose Gita Neutrophils/100 WBC (Bld) 53.0 % Normal 43.0-75.0 [facility] Comment on above: Performed By: #### C BC #### [facility] [address] [place], [place] [address] Jose Gita Platelet mean volume (Bld) [Entitic vol] 8.6 fL Critically low 9.5-13.5 [facility] Comment on above: Performed By: #### C BC #### [facility] [address] [place], [place] [address] Jose Gita Platelets (Bld) [#/Vol] 279 103/ul Normal 150-450 [facility] Comment on above: Performed By: #### C BC #### [facility] [address] [phone] Jose Gita RBC (Bld) [#/Vol] 3.76 106/ul Critically low 4.20-5.40 Th [facility] Comment on above: Performed By: #### C BC #### [facility] [address] [phone] Jose Gita WBC (Bld) [#/Vol] 4.1 103/ul Normal 4.0-11.0 [facility] Comment on above: Performed By: #### C BC #### [facility] [address] [place], [place] [address] Josetripp Cabanen PROF CHEM 8 (BAS METB)on Anion gap [Moles/Vol] 10.6 mmol/L Normal [facility] Comment on above: Performed By: #### B MP #### [facility] [address] [place] [address] Jose Gita Calcium [Mass/Vol] 8.1 mg/dL Critically low 8.4-10.2 Th [facility] Comment on above: Performed By: #### B MP #### [facility] [address] [place] [address] Jose Gita Chloride [Moles/Vol] 111 mmol/L Critically high 98-107 [facility] Comment on above: Performed By: #### B MP #### [facility] [address] [place], [place] [address] Jose Gita CO2 [Moles/Vol] 24.7 mmol/L Normal 22.0-30.0 [facility] Comment on above: Performed By: #### B MP #### [facility] [address] [place], [place] [address] Jose Gita Creatinine [Mass/Vol] 0.80 mg/dL Normal 0.52-1.04 [facility] Comment on above: Performed By: #### B MP #### [facility] [address] [place], [place] [address] Jose Gita EGFR-AF CROATIAN >60 Normal >=60 [facility] Comment on above: Performed By: #### B MP #### [facility] [address] [place], [place] [address] Jose Gita EGFR-NON AF CROATIAN >60 Normal >=60 [facility] Comment on above: Performed By: #### B MP #### [facility] [address] [phone] Jose Gita Glucose [Mass/Vol] 93 mg/dL Normal 74-106 [facility] Comment on above: Performed By: #### B MP #### [facility] [address] [address] Jose Gita Potassium [Moles/Vol] 4.3 mmol/L Normal 3.4-5.0 [facility] Comment on above: Performed By: #### B MP #### [facility] [address] [place] [address] Jose Gita Sodium [Moles/Vol] 142 mmol/L Normal 137-145 [facility] Comment on above: Performed By: #### B MP #### [facility] [address] [place] [address] Jose Gita Urea nitrogen [Mass/Vol] 6.0 mg/dL Critically low 7.0-17.0 [facility] Comment on above: Performed By: #### B MP #### [facility] [address] [place], [place] [address] Jose Gita Urea nitrogen/Creatinine [Mass ratio] 7.5 mg/mg Normal [facility] Comment on above: Performed By: #### B MP #### [facility] [address] [place], [place] [address] Jose Gita CBC AUTO DIFFon 12-27-2018 Basophils (Bld) [#/Vol] 0.0 103/ul Normal 0.0-0.1 [facility] Comment on above: Performed By: #### C BC #### [facility] [address] [place], [place] [address] Jose Gita Basophils/100 WBC (Bld) 0.4 % Normal 0.2-2.0 [facility] Comment on above: Performed By: #### C BC #### [facility] [address] [place], [place] [address] Jose Gita Eosinophils (Bld) [#/Vol] 0.1 103/ul Normal 0.0-0.7 [facility] Comment on above: Performed By: #### C BC #### [facility] [address] [place], [place] [address] Jose Gita Eosinophils/100 WBC (Bld) 1.3 % Normal 0.9-7.0 [facility] Comment on above: Performed By: #### C BC #### [facility] [address] [place], [place] [address] Jose Gita Erythrocyte distribution width (RBC) [Ratio] 13.4 % Normal 11.0-15.0 [facility] Comment on above: Performed By: #### C BC #### [facility] [address] [place] [address] Jose Gita Hematocrit (Bld) [Volume fraction] 37.0 % Normal 36.0-48.0 [facility] Comment on above: Performed By: #### C BC #### [facility] [address] [place], [place] [address] Jose Gita Hemoglobin (Bld) [Mass/Vol] 12.9 g/dL Normal 12.0-16.0 [facility] Comment on above: Result Comment: repe ated slide reviewed ts Performed By: #### C BC #### [facility] [address] [place] [address] Jose Gita IG # 0.02 10e3/ul Normal 0.00-0.03 [facility] Comment on above: Performed By: #### C BC #### [facility] [address] [place], [place] [address] Jose Gita IG % 0.3 % Normal 0.0-0.5 [facility] Comment on above: Performed By: #### C BC #### [facility] [address] [place], [place] [address] Jose Gita Lymphocytes (Bld) [#/Vol] 0.7 103/ul Critically low 1.2-3.8 [facility] Comment on above: Performed By: #### C BC #### [facility] [address] [place], [place] [address] Jose Gita Lymphocytes/100 WBC (Bld) 9.2 % Critically low 20.5-60.0 [facility] Comment on above: Performed By: #### C BC #### [facility] [address] [place], [place] [address] Jose Gita MANUAL DIFF REQ NO Normal [facility] Comment on above: Performed By: #### C BC #### [facility] [address] [place], [place] [address] Jose Gita MCH (RBC) [Entitic mass] 32.4 pg Normal 26.7-34.0 [facility] Comment on above: Performed By: #### C BC #### [facility] [address] [place] [address] Jose Gita MCHC (RBC) [Mass/Vol] 34.9 g/dL Normal 29.9-35.2 [facility] Comment on above: Performed By: #### C BC #### [facility] [address] [place], [place] [address] Jose Gita MCV (RBC) [Entitic vol] 93.0 fL Normal 81.0-99.0 [facility] Comment on above: Performed By: #### C BC #### [facility] [address] [place], [place] [address] Jose Gita Monocytes (Bld) [#/Vol] 0.3 103/ul Normal 0.3-0.8 [facility] Comment on above: Performed By: #### C BC #### [facility] [address] [place], [place] [address] Jose Gita Monocytes/100 WBC (Bld) 3.6 % Normal 1.7-12.0 [facility] Comment on above: Performed By: #### C BC #### [facility] [address] [place], [place] [address] Jose Gita Neutrophils (Bld) [#/Vol] 6.4 103/ul Normal 1.4-6.5 [facility] Comment on above: Performed By: #### C BC #### [facility] [address] [place], [place] [address] Jose Pelayo Neutrophils/100 WBC (Bld) 85.2 % Critically high 43.0-75.0 [facility] Comment on above: Performed By: #### C BC #### [facility] [address] [place], [place] [address] Jose Pelayo Platelet mean volume (Bld) [Entitic vol] 8.7 fL Critically low 9.5-13.5 [facility] Comment on above: Performed By: #### C BC #### [facility] [address] [place], [place] [address] Jose Pelayo Platelets (Bld) [#/Vol] 401 103/ul Normal 150-450 [facility] Comment on above: Performed By: #### C BC #### [facility] [address] [place] [address] Jose Pelayo RBC (Bld) [#/Vol] 3.98 106/ul Critically low 4.20-5.40 [facility] Comment on above: Performed By: #### C BC #### [facility] [address] [place], [place] [address] Jose Pelayo WBC (Bld) [#/Vol] 7.5 103/ul Normal 4.0-11.0 [facility] Comment on above: Performed By: #### C BC #### [facility] [address] [place] [address] Josetripp Cabanen POTASSIUMon 12-27-2018 Potassium [Moles/Vol] 3.9 mmol/L Normal 3.4-5.0 [facility] Comment on above: Performed By: #### K #### [facility] [address] [place], [place] [address] Jose Pelayo PROF 14(COMP METB)on 019 Albumin [Mass/Vol] 3.2 g/dL Critically low 3.5-5.0 [facility] Comment on above: Performed By: #### C MP #### [facility] [address] [place], [place] [address] Jose Gita Albumin/Globulin [Mass ratio] 1.1 {ratio} Normal [facility] Comment on above: Performed By: #### C MP #### [facility] [address] [place], [place] [address] Jose Gita ALP [Catalytic activity/Vol] 50 U/L Normal 38-126 [facility] Comment on above: Performed By: #### C MP #### [facility] [address] [phone] Jose Gita ALT [Catalytic activity/Vol] 60 U/L Critically high 9-52 [facility] Comment on above: Performed By: #### C MP #### [facility] [address] [place], [place] [address] Jose Gita Anion gap [Moles/Vol] 8.7 mmol/L Normal [facility] Comment on above: Performed By: #### C MP #### [facility] [address] [place] [address] Jose Gita AST [Catalytic activity/Vol] 41 U/L Critically high 14-36 [facility] Comment on above: Performed By: #### C MP #### [facility] [address] [place], [place] [address] Jose Gita Bilirubin Ql (U) 0.5 mg/dL Normal 0.2-1.3 [facility] Comment on above: Performed By: #### C MP #### [facility] [address] [place], [place] [address] Jose Gita Calcium [Mass/Vol] 7.7 mg/dL Critically low 8.4-10.2 Th [facility] Comment on above: Performed By: #### C MP #### [facility] [address] [place], [place] [address] Jose Gita Chloride [Moles/Vol] 107 mmol/L Normal 98-107 [facility] Comment on above: Performed By: #### C MP #### [facility] [address] [place], [place] [address] Jose Gita CO2 [Moles/Vol] 27.1 mmol/L Normal 22.0-30.0 [facility] Comment on above: Performed By: #### C MP #### [facility] [address] [place], [place] [address] Jose Gita Creatinine [Mass/Vol] 0.93 mg/dL Normal 0.52-1.04 [facility] Comment on above: Performed By: #### C MP #### [facility] [address] [place], [place] [address] Jose Gita EGFR-AF CROATIAN >60 Normal >=60 [facility] Comment on above: Performed By: #### C MP #### [facility] [address] [place], [place] [address] Jose Gita EGFR-NON AF CROATIAN >60 Normal >=60 [facility] Comment on above: Performed By: #### C MP #### [facility] [address] [place] [address] Jose Gita Globulin (S) [Mass/Vol] 3.0 g/dL Normal [facility] Comment on above: Performed By: #### C MP #### [facility] [address] [address] Jose Gita Glucose [Mass/Vol] 114 mg/dL Critically high 74-106 T [facility] Comment on above: Performed By: #### C MP #### [facility] [address] [place], [place] [address] Jose Gita Potassium [Moles/Vol] 2.8 mmol/L Critically low 3.4-5.0 [facility] Comment on above: Result Comment: test repeated critical value verified Performed By: #### C MP #### [facility] [address] [place], [place] [address] Jose Gita Protein [Mass/Vol] 6.2 g/dL Normal 6.1-8.2 [facility] Comment on above: Performed By: #### C MP #### [facility] [address] [phone] Jose Gita Sodium [Moles/Vol] 141 mmol/L Normal 137-145 [facility] Comment on above: Performed By: #### C MP #### [facility] [address] [place], [place] [address] Jose Gita Urea nitrogen [Mass/Vol] 16.0 mg/dL Normal 7.0-17.0 [facility] Comment on above: Performed By: #### C MP #### [facility] [address] [place], [place] [address] Jose Gita Urea nitrogen/Creatinine [Mass ratio] 17.2 mg/mg Normal [facility] Comment on above: Performed By: #### C MP #### [facility] [address] [place], [place] [address] Jose Gita XR ABD FLAT UP/PA Natalya 12-27 XR ABD FLAT UP/PA CH Patient: LINDA ALVARADO Exam Date: 12/26/2018 : 1975 Gender:F Ordering : DR. NICHOLAS BOLTON . Admission #: [id number] Family : Order #: [id number] CLICK HERE TO VIEW EXAM RADIOLOGY REPORT [...] M.D. on 12/27/2018 at 07:37 Normal [facility] CBC AUTO DIFFon 12-26-2018 Basophils (Bld) [#/Vol] 0.1 103/ul Normal 0.0-0.1 [facility] Comment on above: Performed By: #### C BC #### [facility] [address] [phone] Jose Gita Basophils/100 WBC (Bld) 0.7 % Normal 0.2-2.0 [facility] Comment on above: Performed By: #### C BC #### [facility] [address] [phone] Jose Gita Eosinophils (Bld) [#/Vol] 0.3 103/ul Normal 0.0-0.7 [facility] Comment on above: Performed By: #### C BC #### [facility] [address] [place], [place] [phone] Jose Gita Eosinophils/100 WBC (Bld) 2.2 % Normal 0.9-7.0 [facility] Comment on above: Performed By: #### C BC #### [facility] [address] [place], [place] [phone] Jose Gita Erythrocyte distribution width (RBC) [Ratio] 13.5 % Normal 11.0-15.0 [facility] Comment on above: Performed By: #### C BC #### [facility] [address] [place] [address] Jose Gita Hematocrit (Bld) [Volume fraction] 46.0 % Normal 36.0-48.0 [facility] Comment on above: Performed By: #### C BC #### [facility] [address] [place], [place] [phone] Jose Gita Hemoglobin (Bld) [Mass/Vol] 15.7 g/dL Normal 12.0-16.0 [facility] Comment on above: Performed By: #### C BC #### [facility] [address] [place], [place] [phone] Jose Gita IG # 0.05 10e3/ul Critically high 0.00-0.03 [facility] Comment on above: Performed By: #### C BC #### [facility] [address] [place] [address] Jose Gita IG % 0.4 % Normal 0.0-0.5 [facility] Comment on above: Performed By: #### C BC #### [facility] [address] [place], [place] [phone] Jose Gita Lymphocytes (Bld) [#/Vol] 1.0 103/ul Critically low 1.2-3.8 [facility] Comment on above: Performed By: #### C BC #### [facility] [address] [place], [place] [address] Jose Gita Lymphocytes/100 WBC (Bld) 8.8 % Critically low 20.5-60.0 [facility] Comment on above: Performed By: #### C BC #### [facility] [address] [place], [place] [address] Jose Gita MANUAL DIFF REQ NO Normal [facility] Comment on above: Performed By: #### C BC #### [facility] [address] [place], [place] [address] Jose Gita MCH (RBC) [Entitic mass] 31.7 pg Normal 26.7-34.0 [facility] Comment on above: Performed By: #### C BC #### [facility] [address] [place], [place] [address] Jose Gita MCHC (RBC) [Mass/Vol] 34.1 g/dL Normal 29.9-35.2 [facility] Comment on above: Performed By: #### C BC #### [facility] [address] [place], [place] [address] Jose Gita MCV (RBC) [Entitic vol] 92.9 fL Normal 81.0-99.0 [facility] Comment on above: Performed By: #### C BC #### [facility] [address] [place], [place] [address] Jose Gita Monocytes (Bld) [#/Vol] 0.3 103/ul Normal 0.3-0.8 [facility] Comment on above: Performed By: #### C BC #### [facility] [address] [place] [address] Jose Gita Monocytes/100 WBC (Bld) 2.8 % Normal 1.7-12.0 [facility] Comment on above: Performed By: #### C BC #### [facility] [address] [place], [place] [address] Jose Gita Neutrophils (Bld) [#/Vol] 9.8 103/ul Critically high 1.4-6.5 [facility] Comment on above: Performed By: #### C BC #### [facility] [address] [place], [place] [phone] Jose Pelayo Neutrophils/100 WBC (Bld) 85.1 % Critically high 43.0-75.0 [facility] Comment on above: Performed By: #### C BC #### [facility] [address] [place] [address] Jose Pelayo Platelet mean volume (Bld) [Entitic vol] 8.6 fL Critically low 9.5-13.5 [facility] Comment on above: Performed By: #### C BC #### [facility] [address] [place], [place] [phone] Jose Pelayo Platelets (Bld) [#/Vol] 543 103/ul Critically high 150-450 [facility] Comment on above: Performed By: #### C BC #### [facility] [address] [place], [place] [phone] Jose Pelayo RBC (Bld) [#/Vol] 4.95 106/ul Normal 4.20-5.40 [facility] Comment on above: Performed By: #### C BC #### [facility] [address] [place], [place] [phone] Jose Pelayo WBC (Bld) [#/Vol] 11.5 103/ul Critically high 4.0-11.0 T [facility] Comment on above: Performed By: #### C BC #### [facility] [address] [place], [place] [phone] Jose Pelayo LIPASEon 12-26-2018 Lipase [Catalytic activity/Vol] 186.0 U/L Normal 23.0-300.0 [facility] Comment on above: Performed By: #### L IPA, CMP #### [facility] [address] [place], [place] [phone] Jose Pelayo PROF 14(COMP METB)on 019 Albumin [Mass/Vol] 4.5 g/dL Normal 3.5-5.0 [facility] Comment on above: Performed By: #### L IPA, CMP #### [facility] [address] [place], [place] [phone] Jose Gita Albumin/Globulin [Mass ratio] 1.2 {ratio} Normal [facility] Comment on above: Performed By: #### L IPA, CMP #### [facility] [address] [address] Jose Gita ALP [Catalytic activity/Vol] 65 U/L Normal 38-126 [facility] Comment on above: Performed By: #### L IPA, CMP #### [facility] [address] [address] Jose Gita ALT [Catalytic activity/Vol] 75 U/L Critically high 9-52 [facility] Comment on above: Performed By: #### L IPA, CMP #### [facility] [address] [address] Jose Gita Anion gap [Moles/Vol] 10.7 mmol/L Normal [facility] Comment on above: Performed By: #### L IPA, CMP #### [facility] [address] [address] Jose Gita AST [Catalytic activity/Vol] 51 U/L Critically high 14-36 [facility] Comment on above: Performed By: #### L IPA, CMP #### [facility] [address] [address] Jose Gita Bilirubin Ql (U) 0.6 mg/dL Normal 0.2-1.3 [facility] Comment on above: Performed By: #### L IPA, CMP #### [facility] [address] [address] Jose Gita Calcium [Mass/Vol] 9.3 mg/dL Normal 8.4-10.2 [facility] Comment on above: Performed By: #### L IPA, CMP #### [facility] [address] [phone] Jose Gita Chloride [Moles/Vol] 103 mmol/L Normal 98-107 [facility] Comment on above: Performed By: #### L IPA, CMP #### [facility] [address] [address] Jose Gita CO2 [Moles/Vol] 28.8 mmol/L Normal 22.0-30.0 [facility] Comment on above: Performed By: #### L IPA, CMP #### [facility] [address] [phone] Jose Gita Creatinine [Mass/Vol] 1.03 mg/dL Normal 0.52-1.04 [facility] Comment on above: Performed By: #### L IPA, CMP #### [facility] [address] [phone] Jose Gita EGFR-AF CROATIAN >60 Normal >=60 [facility] Comment on above: Performed By: #### L IPA, CMP #### [facility] [address] [phone] Jose Gita EGFR-NON AF CROATIAN 59 mL/min/1.73m2 Critically low >=60 [facility] Comment on above: Performed By: #### L IPA, CMP #### [facility] [address] [phone] Jose Gita Globulin (S) [Mass/Vol] 3.7 g/dL Normal [facility] Comment on above: Performed By: #### L IPA, CMP #### [facility] [address] [phone] Jose Gita Glucose [Mass/Vol] 114 mg/dL Critically high 74-106 [facility] Comment on above: Performed By: #### L IPA, CMP #### [facility] [address] [phone] Jose Gita Potassium [Moles/Vol] 3.5 mmol/L Normal 3.4-5.0 [facility] Comment on above: Performed By: #### L IPA, CMP #### [facility] [address] [phone] Jose Gita Protein [Mass/Vol] 8.2 g/dL Normal 6.1-8.2 [facility] Comment on above: Performed By: #### L IPA, CMP #### [facility] [address] [phone] Jose Gita Sodium [Moles/Vol] 139 mmol/L Normal 137-145 [facility] Comment on above: Performed By: #### L IPA, CMP #### [facility] [address] [place], [place] [address] Jose Pelayo Urea nitrogen [Mass/Vol] 15.0 mg/dL Normal 7.0-17.0 [facility] Comment on above: Performed By: #### L IPA, CMP #### [facility] [address] [place], [place] [address] Jose Pelayo Urea nitrogen/Creatinine [Mass ratio] 14.6 mg/mg Normal [facility] Comment on above: Performed By: #### L IPA, CMP #### [facility] [address] [place], [place] [address] Jose Pelayo Vital Signs Date Time Vital Sign Value Performing Clinician Facility 06-03-2024 15:39-0400 Body height 152.4 cm Gita Hemmer PA Work Phone: [facility] 06-03-2024 15:39-0400 Body mass index (BMI) [Ratio] 38.28 kg/m2 Gita Hemmer PA Work Phone: [facility] 06-03-2024 15:39-0400 Body weight 88.91 kg Gita Hemmer PA Work Phone: [facility] 06-03-2024 15:39-0400 Diastolic blood pressure 64 mm[Hg] Gita Hemmer PA Work Phone: [facility] 06-03-2024 15:39-0400 Heart rate 85 /min Gita Hemmer PA Work Phone: [facility] 06-03-2024 15:39-0400 Respiratory rate 17 /min Gita Hemmer PA Work Phone: [facility] 06-03-2024 15:39-0400 SaO2% (BldA) [Mass fraction] 98 % Gita Hemmer PA Work Phone: [facility] 06-03-2024 15:39-0400 Systolic blood pressure 128 mm[Hg] Gita Hemmer PA Work Phone: [facility] 01-30-2024 09:26-0400 Body height 152.4 cm [facility] 01-30-2024 09:26-0400 Body mass index (BMI) [Ratio] 38.7 kg/m2 [facility] 01-30-2024 09:26-0400 Body weight 89.81 kg [facility] 01-30-2024 09:26-0400 Diastolic blood pressure 85 mm[Hg] [facility] 01-30-2024 09:26-0400 Heart rate 97 /min [facility] 01-30-2024 09:26-0400 SaO2% (BldA) [Mass fraction] 97 % [facility] 01-30-2024 09:26-0400 Systolic blood pressure 142 mm[Hg] [facility] 01-09-2024 15:16-0400 Body height 152.4 cm [facility] 01-09-2024 15:16-0400 Body mass index (BMI) [Ratio] 37.8 kg/m2 [facility] 01-09-2024 15:16-0400 Body temperature 97.7 [degF] [facility] 01-09-2024 15:16-0400 Body weight 87.99 kg [facility] 01-09-2024 15:16-0400 Diastolic blood pressure 80 mm[Hg] [facility] 01-09-2024 15:16-0400 Heart rate 90 /min [facility] 01-09-2024 15:16-0400 Respiratory rate 18 /min [facility] 01-09-2024 15:16-0400 SaO2% (BldA) [Mass fraction] 99 % [facility] 01-09-2024 15:16-0400 Systolic blood pressure 131 mm[Hg] [facility] 12-25-2023 17:21-0400 Body height 152.4 cm [facility] 12-25-2023 17:21-0400 Body mass index (BMI) [Ratio] 30.2 kg/m2 [facility] 12-25-2023 17:21-0400 Body temperature 98.3 [degF] [facility] 12-25-2023 17:21-0400 Body weight 70.3 kg [facility] 12-25-2023 17:21-0400 Heart rate 96 /min [facility] 12-25-2023 17:21-0400 Respiratory rate 18 /min [facility] 12-25-2023 17:21-0400 SaO2% (BldA) [Mass fraction] 96 % [facility] 10-04-2023 08:09-0500 Body mass index (BMI) [Ratio] 37.07 kg/m2 Gita Hemmer PA Work Phone: [facility] 10-04-2023 08:09-0500 Body weight 86.09 kg Gita Hemmer PA Work Phone: [facility] 10-04-2023 08:09-0500 Diastolic blood pressure 75 mm[Hg] Gita Hemmer PA Work Phone: [facility] 10-04-2023 08:09-0500 Heart rate 94 /min Gita Hemmer PA Work Phone: [facility] 10-04-2023 08:09-0500 Respiratory rate 14 /min Gita Hemmer PA Work Phone: [facility] 10-04-2023 08:09-0500 SaO2% (BldA) [Mass fraction] 95 % Gita Hemmer PA Work Phone: [facility] 10-04-2023 08:09-0500 Systolic blood pressure 140 mm[Hg] Gita Hemmer PA Work Phone: [facility] 08-01-2023 08:30-0500 Body height 152.4 cm Jane Waller Other [facility] Other 04-02-2023 11:15-0400 Body height 152.4 cm Jane Waller Other [facility] Other 04-02-2023 11:15-0400 Body mass index (BMI) [Ratio] 36.71 kg/m2 Jane Waller Other [facility] Other 04-02-2023 11:15-0400 Body weight 85.28 kg Jane Waller Other [facility] Other 04-02-2023 11:15-0400 Diastolic blood pressure 82 mm[Hg] Jane Waller Other [facility] Other 04-02-2023 11:15-0400 SaO2% (BldA) [Mass fraction] 98 % Jane Sridhar Other [facility] Other 04-02-2023 11:15-0400 Systolic blood pressure 143 mm[Hg] Jane Sridhar Other [facility] Other 02-06-2023 08:45-0400 Body height 152.4 cm Jane Sridhar Other [facility] Other 02-06-2023 08:45-0400 Diastolic blood pressure 79 mm[Hg] Jane Sridhar Other [facility] Other 02-06-2023 08:45-0400 SaO2% (BldA) [Mass fraction] 96 % Jane Sridhar Other [facility] Other 02-06-2023 08:45-0400 Systolic blood pressure 118 mm[Hg] Jane Sridhar Other [facility] Other 03-19-2022 10:00-0400 Body height 152.4 cm Ciera Mcwilliams Other [facility] Other 03-19-2022 10:00-0400 Body mass index (BMI) [Ratio] 35.74 kg/m2 Ciera Mcwilliams Other [facility] Other 03-19-2022 10:00-0400 Body temperature 96.8 [degF] Ciera Poppy Other [facility] Other 03-19-2022 10:00-0400 Body weight 83.01 kg Ciera Poppy Other [facility] Other 03-19-2022 10:00-0400 Diastolic blood pressure 89 mm[Hg] Ciera Poppy Other [facility] Other 03-19-2022 10:00-0400 Respiratory rate 20 /min Ciera Poppy Other [facility] Other 03-19-2022 10:00-0400 SaO2% (BldA) [Mass fraction] 98 % Ciera Poppy Other [facility] Other 03-19-2022 10:00-0400 Systolic blood pressure 142 mm[Hg] Ciera Poppy Other [facility] Other 02-22-2022 11:00-0400 Body height 152.4 cm Jane Waller Other [facility] Other 02-22-2022 11:00-0400 Body mass index (BMI) [Ratio] 35.93 kg/m2 Jane Waller Other [facility] Other 02-22-2022 11:00-0400 Body temperature 97.7 [degF] Jane Waller Other [facility] Other 02-22-2022 11:00-0400 Body weight 83.46 kg Jane Waller Other [facility] Other 02-22-2022 11:00-0400 Diastolic blood pressure 82 mm[Hg] Jane Waller Other [facility] Other 02-22-2022 11:00-0400 SaO2% (BldA) [Mass fraction] 98 % Jane Waller Other [facility] Other 02-22-2022 11:00-0400 Systolic blood pressure 122 mm[Hg] Jane Waller Other [facility] Other 08-22-2021 16:30-0500 Body height 152.4 cm Jane Waller Other [facility] Other 08-22-2021 16:30-0500 Body mass index (BMI) [Ratio] 37.2 kg/m2 Jane Waller Other [facility] Other 08-22-2021 16:30-0500 Body temperature 97.5 [degF] Jane Waller Other [facility] Other 08-22-2021 16:30-0500 Body weight 86.41 kg Jane Waller Other [facility] Other 08-22-2021 16:30-0500 Diastolic blood pressure 83 mm[Hg] Jane Waller Other [facility] Other 08-22-2021 16:30-0500 SaO2% (BldA) [Mass fraction] 97 % Jane Waller Other [facility] Other 08-22-2021 16:30-0500 Systolic blood pressure 141 mm[Hg] Jane Waller Other [facility] Other 08-19-2021 10:20-0500 Body height 152.4 cm Tracy Oliver Other [facility] Other 08-19-2021 10:20-0500 Body mass index (BMI) [Ratio] 36.52 kg/m2 Tracy lOiver Other [facility] Other 08-19-2021 10:20-0500 Body temperature 97.9 [degF] Tracy Oliver Other [facility] Other 08-19-2021 10:20-0500 Body weight 84.82 kg Tracy Oliver Other [facility] Other 08-19-2021 10:20-0500 Diastolic blood pressure 80 mm[Hg] Tracy Oliver Other [facility] Other 08-19-2021 10:20-0500 Respiratory rate 18 /min Tracy Oliver Other [facility] Other 08-19-2021 10:20-0500 SaO2% (BldA) [Mass fraction] 100 % Tracy Oliver Other [facility] Other 08-19-2021 10:20-0500 Systolic blood pressure 146 mm[Hg] Tracy Oliver Other [facility] Other 06-01-2021 09:30-0400 Body height 152.4 cm Jane Waller Other [facility] Other Encounters Encounter Date Encounter Type Care [...] 05-20-2024 ambulatory II Elver Mendenhall Work Phone: [facility] Work Phone: Start: 05-20-2024 End: 05-20-2024 Departed Referred II Elver Mendenhall Work Phone: [facility] [place] Work Phone: Start: 05-19-2024 End: 05-19-2024 Patient encounter procedure II Elver Mendenhall Work Phone: [facility] Work Phone: Start: 05-19-2024 End: 05-20-2024 ambulatory II Elver Mendenhall Work Phone: [facility] Work Phone: Start: 05-14-2024 End: 05-14-2024 ambulatory TREVER WARNER Not Available Start: 05-13-2024 End: 05-13-2024 ambulatory GITA GARCIA Not Available Start: 03-04-2024 End: 03-04-2024 ambulatory SEB KITCHEN Not Available Start: 01-30-2024 End: 01-30-2024 ambulatory [facility] Work Phone: Start: 01-30-2024 End: 01-30-2024 Patient encounter procedure [facility] Work Phone: Start: 01-09-2024 End: 01-09-2024 ambulatory [facility] Work Phone: Start: 01-09-2024 End: 01-09-2024 Patient encounter procedure [facility] Work Phone: Start: 12-25-2023 End: 12-25-2023 ambulatory [facility] Work Phone: Start: 12-25-2023 End: 12-25-2023 Patient encounter procedure [facility] Work Phone: Start: 10-14-2023 End: 10-14-2023 Office outpatient visit 15 minutes Lubna Lawrence DIRECTOR OF EVENTS-REELER OPERATOR Work Phone: [facility] Comment on above: Nevus; Perioral dermatitis Start: 10-14-2023 End: 10-14-2023 ambulatory LUBNA LAWRENCE Not Available Start: 10-10-2023 End: 10-10-2023 ambulatory Jane Waller Other [facility] Other Start: 10-10-2023 Telephone encounter Jane Waller [facility] Start: 10-04-2023 Chart abstracting Gita HUSAIN Work [...] 09-05-2023 End: 09-05-2023 ambulatory Jane Waller Other [facility] Other Start: 09-05-2023 Telephone encounter Jane Waller [facility] Start: 08-01-2023 Office outpatient vi sit 25 minutes Jane Waller [facility] Start: 08-01-2023 End: 08-01-2023 Patient encounter procedure II Elver Mendenhall Work Phone: [facility] Work Phone: Start: 08-01-2023 End: 08-01-2023 ambulatory II Elver Mendenhall Work Phone: [facility] Other Start: 07-30-2023 End: 07-30-2023 ambulatory Ciera Poppy Other [facility] Other Start: 07-30-2023 Office outpatient vi sit 25 minutes Ciera Poppy [facility] Start: 07-16-2023 End: 07-16-2023 ambulatory Ciera Poppy Other [facility] Other Start: 07-16-2023 Telephone encounter Ciera Poppy [facility] Start: 07-15-2023 End: 07-15-2023 ambulatory GITA GARCIA Not Available Start: 06-13-2023 End: 06-13-2023 ambulatory Jane Waller Other [facility] Other Start: 06-13-2023 Telephone encounter Jane Song [facility] Start: 06-03-2023 End: 06-03-2023 ambulatory Jane Waller Other [facility] Other Start: 06-03-2023 Telephone encounter Jane Waller [facility] Start: 04-02-2023 Office outpatient vi sit 25 minutes Jane Sridhar [facility] Start: 04-02-2023 End: 04-02-2023 ambulatory II Elver Mendenhall Work Phone: [facility] Other Start: 04-02-2023 End: 04-02-2023 Patient encounter procedure II Elver Mendenhall Work Phone: [facility] Work Phone: Start: 03-11-2023 End: 03-11-2023 ambulatory Efraín Patel Other [facility] Other Start: 03-11-2023 Telephone encounter Efraín Patel [facility] Start: 02-06-2023 Office outpatient vi sit 25 minutes Jane Waller [facility] Start: 02-06-2023 End: 02-06-2023 ambulatory II Elver Mendenhall Work Phone: [facility] Other Start: 02-06-2023 End: 02-06-2023 Patient encounter procedure II Elver Mendenhall Work Phone: [facility] Work Phone: Start: 11-22-2022 End: 11-22-2022 ambulatory Jane Waller Other [facility] Other Start: 11-22-2022 Telephone encounter Jane Waller Duncan [facility] Start: 08-28-2022 End: 08-28-2022 ambulatory Jane Waller Other [facility] Other Start: 08-28-2022 Telephone encounter Jane Waller Duncan [facility] Start: 07-03-2022 End: 07-03-2022 Patient encounter procedure II Elver Mendenhall Work Phone: [facility] Start: 07-03-2022 End: 07-03-2022 ambulatory II Elver Mendenhall Work Phone: [facility] Work Phone: Start: 07-03-2022 Office outpatient vi sit 25 minutes Jane Waller [facility] Start: 05-24-2022 End: 05-24-2022 ambulatory Jane Waller Other [facility] Other Start: 05-24-2022 Telephone encounter Jane Waller [facility] [facility] Start: 03-19-2022 End: 03-19-2022 ambulatory Ciera Poppy Other [facility] Other Start: 03-19-2022 Office outpatient vi sit 25 minutes Ciera Poppy [facility] Start: 02-23-2022 End: 02-23-2022 ambulatory Jane Waller Other [facility] Other Start: 02-23-2022 Telephone encounter Jane Waller [facility] Start: 02-22-2022 End: 02-22-2022 ambulatory Jane Waller Other [facility] Other Start: 02-22-2022 Office outpatient vi sit 25 minutes Jane Waller [facility] Start: 11-24-2021 End: 11-24-2021 ambulatory Jane Waller Other [facility] Other Start: 11-24-2021 Telephone encounter Jane Waller [facility] Start: 09-08-2021 End: 09-08-2021 ambulatory Jane Waller Other [facility] Other Start: 09-08-2021 Telephone encounter Ciera Poppy [facility] Start: 08-22-2021 End: 08-22-2021 ambulatory Jane Waller Other [facility] Other Start: 08-22-2021 Office outpatient vi sit 25 minutes Jane Waller [facility] Start: 08-19-2021 End: 08-19-2021 ambulatory Tracy Benito Other [facility] Other Start: 08-19-2021 Office outpatient vi sit 15 minutes Tracy Oliver [facility] [place] Start: 08-02-2021 End: 08-02-2021 ambulatory Jane Waller Other [facility] Other Start: 08-02-2021 Telephone encounter Jane Waller [facility] Start: 06-30-2021 Telephone encounter Jane Song [facility] Start: 06-01-2021 Office outpatient vi sit 25 minutes Jane Waller [facility] Start: 07-07-2019 End: 07-13-2019 Evaluation and management of inpatient ELVER MENDENHALL Facility:[facility] Start: 07-06-2019 End: 07-07-2019 Patient encounter procedure [...] above: Performed By: #### 6 [id number] #### [facility] [address], [facility] Start: 12-27-2018 End: 12-27-2018 Microscopic examination of blood, culture ELVER MENDENHALL Comment on above: Performed By: #### B LDCX2 #### [facility] [address] [place], [place] [address] Jose Cabanen Performed By: #### L IPA, CMP #### [facility] [address] [place], [place] [address] Jose Gita Plan of Treatment Date Care Activity Detail Author Start: 03-27-2028 Screening for malign ant neoplasm of cervix [facility] Start: 03-27-2026 Screening for malign ant neoplasm of cervix Pap Smear [facility] Start: 05-13-2025 Screening for malign ant neoplasm of colon Colorectal Cancer Screening [facility] Comment on above: Postponed from 06/07 (Patient Refused) Start: 02-08-2025 End: 02-08-2025 Patient encounter procedure 02/08/2025 8:30 AM EDT Office Visit [facility] [address] [place] [phone] Lubna Lawrence APRN-PRISCILLA [address] [place] [address] [facility] Start: 06-30-2024 End: 06-30-2024 Patient encounter procedure 06/30/2024 9:30 AM EDT Office Visit [facility] [address] [place] [phone] Lenny Snow DO [address] [place] [address] [facility] Start: 06-25-2024 End: 06-25-2024 Patient encounter procedure 06/25/2024 2:40 PM EDT Office Visit [facility] [address] [place] [address] Trever Warner DPM [address] [facility] [address] [place] [address] [facility] Start: 06-10-2024 End: 06-03-2025 Basic metabolic 1998 panel - Serum or Plasma Basic metabolic panel Lab Routine Hypokalemia Expected: 06/10/2024 (Approximate), Expires: 06/03/2025 [facility] Work Phone: Comment on above: Expected: 06/10/2024 (Approximate), Expires: 06/03/2025 Start: 06-03-2024 End: 06-03-2026 US Heart Transthoracic Transthoracic Echo (TTE) Complete Echocardiography Routine Ankle edema Abnormal electrocardiogram Expected: 06/03/2024 (Approximate), Expires: 06/03/2026 [facility] Comment on above: Expected: 06/03/2024 (Approximate), Expires: 06/03/2026 Start: 05-03-2024 Influenza vaccination Influenza Vacc ine (#1) [facility] Start: 04-09-2024 End: 04-09-2024 Patient encounter procedure 04/09/2024 9:35 AM EDT Office Visit [facility] [address] [place] [phone] Lubna Lawrence, DIRECTOR OF EVENTS-REELER OPERATOR [address] [place] [address] [facility] Start: 03-31-2024 End: 03-31-2024 Patient encounter procedure 03/31/2024 9:45 AM EDT Office Visit [facility] [address] [place] [address] Lenny Snow, [address] [place] [address] [facility] Start: 11-15-2023 End: 11-15-2023 Patient encounter procedure 11/15/2023 8:30 AM EDT Office Visit [facility] [address] [place] [address] Gita Garcia PA [address] [place] [address] [facility] Start: 10-14-2023 End: 10-14-2023 Patient encounter procedure 10/14/2023 8:30 AM EST Office Visit [facility] [address] [place] [address] Lubna Lawrence, DIRECTOR OF EVENTS-REELER OPERATOR [address] [place] [address] [facility] Start: 10-04-2023 End: 10-04-2024 CBC W Auto Differential panel - Blood CBC and differential Lab Routine Wellness examination Iron deficiency Thrombocythemia Anemia, unspecified type Expected: 10/04/2023 (Approximate), Expires: 10/04/2024 [facility] Work Phone: Comment on above: Expected: 10/04/2023 (Approximate), Expires: 10/04/2024 Start: 10-04-2023 End: 10-04-2024 Comprehensive metabolic 2000 panel - Serum or Plasma Comprehensive metabolic panel Lab Routine Wellness examination Ankle edema Elevated ALT measurement Mixed hyperlipidemia (CMS/HCC) Expected: 10/04/2023 (Approximate), Expires: 10/04/2024 [facility] Comment on above: Expected: 10/04/2023 (Approximate), Expires: 10/04/2024 Start: 10-04-2023 End: 10-04-2024 Hemoglobin A1c measurement Hemoglobin A1c Lab Routine Wellness examination Impaired fasting glucose History of gestational diabetes Expected: 10/04/2023 (Approximate), Expires: 10/04/2024 [facility] Comment on above: Expected: 10/04/2023 [...] (CMS/HCC) Expected: 10/04/2023 (Approximate), Expires: 10/04/2024 [facility] Comment on above: Expected: 10/04/2023 (Approximate), Expires: 10/04/2024 Start: 10-04-2023 End: 10-04-2024 TSH W/REFLEX TO FT4 TSH W/REFLEX TO FT4 Lab Routine Wellness examination Tachycardia Weight gain Expected: 10/04/2023 (Approximate), Expires: 10/04/2024 [facility] Comment on above: Expected: 10/04/2023 (Approximate), Expires: 10/04/2024 Start: 10-04-2023 End: 10-04-2023 Patient encounter procedure 10/04/2023 8:00 AM EST Office Visit [facility] [address] [facility] [address] [place] [address] Gita Garcia PA [address] [facility] [address] [place] [address] [facility] Start: 05-03-2023 Influenza vaccination Influenza Vacc ine (#1) [facility] Start: 12-09-2021 Screening for malign ant neoplasm of breast Mammogram [facility] Start: 1997 Screening for malign ant neoplasm of cervix Pap Smear [facility] Start: 1976 Screening for malign ant neoplasm of colon [facility] Immunizations Immunization Date Immunization Notes Care Provider Fa chani 03-10-2016 Rocephin 500 mg Jane Demohour Other [facility] Other 02-17-2016 tetanus toxoid, reduced diphtheria toxoid, and acellular pertussis vaccine, adsorbed Gita HUSAIN Work Phone: [facility] Work Phone: Payers Date Payer Category Payer Self-pay [id number] 2022 Blue Cross Blue Shield BCBS [id number] 2022 Unknown BCBS BCBS xxxxxx [id number] 2022-Present [phone] [id number] [place], [place] [address] [id number] 2022 Blue Cross Blue Shield [id number] [id number] 1976 Unknown [id number] 2.16.840.1.035554.3.579.2. 593 1976 Unknown [id number] 2.16840.1.681727.3.579.2. 593 1976 Unknown [id number] 2.16.840.1.392463.3.579.2. 593 1976 Unknown [id number] 2.16.840.1.412217.3.579.2. 593 1976 Unknown [id number] 2.16.840.1.733068.3.579.2. 647 1976 Unknown [id number] 2.16.840.1.870837.3.579.2. 1259 1976 Unknown [id number] 2.16.840.1.327655.3.579.2. 1259 1976 Unknown [id number] 2.16.840.1.083117.3.579.2. 9 1976 Unknown [id number] 2.16.840.1.029244.3.579.2. 9 1976 Unknown [id number] 2.16.840.1.242278.3.579.2. 9 1976 Unknown [id number] 2.16.840.1.537545.3.579.2. 1259 1976 Unknown [id number] 2.16.840.1.901813.3.579.2. 9 1976 Unknown [id number] 2.16.840.1.803197.3.579.2. 1259 1976 Unknown [id number] 2.16.840.1.443978.3.579.2. 1259 1959 Unknown [id number] Unknown [id number] 2.16.840.1.098954.19 Unknown Copay Assistance Program [id number] Unknown [id number] 2.16.840.1.321286.3.579.2. 531 Unknown [id number] 2.16.840.1.347118.3.579.2. 531 Unknown [id number] 2.16.840.1.143578.3.579.2. 531 Social History Date Type Detail Facility Unknown if ever smoked [facility] Other Start: 03-27-2023 End: 07-15-2023 Sex Assigned At [facility] Start: 03-13-2021 End: 10-14-2023 Tobacco smoking status NHIS Never smoked tobacco (finding) [facility] Start: 1975 Sex Assigned At Female [facility] Start: 03-27-2023 End: 10-14-2023 Tobacco use and exposure Smokeless tobacco non-user [facility] Start: 07-15-2023 End: 06-03-2024 Alcohol intake Lifetime non-drinker (finding) [facility] Start: 03-27-2023 End: 07-15-2023 History of Social function [facility] Within the last year , have you been afraid of your partner or ex-partner? No [facility] Do you belong to any clubs or organizations such as jain groups, unions, [employer] or athletic groups, or school groups? Yes [...] Not at all [facility] (I/We) worried [facility] (my/our) food would run out before [...] back in normal range. Continue potassium supplement. [facility] 06-13-2024 Miscellaneous Notes Formattin g of this note might be different from the original. Please let pt know that her recent lab showed her potassium is back in normal range. Continue potassium supplement. documented in this encounter [facility] 06-03-2024 History of Presen t illness Narrative Images from the original note were not included. Subjective Patient ID: Linda Alvarado is a 48 y.o. female who presents for a follow up of [facility] on 05/30. She went to [facility] for hypokalemia. Linda is present today for a follow up of [facility] for hypokalemia, she states her legs [...] counseling Miscarriage 2011 OCD (obsessive compulsive disorder) ([facility]) ROBYN (obstructive sleep apnea) Seasonal allergies Past [...] months (around 09/03/2024). documented in this encounter [facility] 10-14-2023 History of Presen t illness Narrative [...] 1 year documented in this encounter [facility] 10-10-2023 Evaluation note Encounter Date Diagnosis Assessment Notes Oct, ROBYN (obstructi ve sleep apnea) (ICD-10 - G47.33) [facility] Other 02-02-2024 History of Present illness Narrative* [...] sleepiness The patient is seeing a medical practice manager for this condition, treatment is deferred to that specialist. Correspondence from that specialist and any available testing were reviewed during today's visit. Obstructive sleep apnea The patient is seeing a medical practice manager for this condition, treatment is deferred to [...] infertility The patient is seeing a medical practice manager for this condition, treatment is deferred to [...] fracture The patient is seeing a medical practice manager for this condition, treatment is deferred to [...] (around 11/15/2023) for Recheck. documented in this [facility]11-30-2023 Evaluation note* Encounter Date Diagnosis Assessment Notes [...] but has reported symptoms in the past [facility] Other 11-28-2023 Evaluation note* Encounter Date Diagnosis Assessment Notes Treatment Notes Treatment Clinical Notes Jul, Mild intermittent asthma, uncomplicated (ICD-10 - J45.20) [facility] Other 10-12-2023 Evaluation note* Encounter Date Diagnosis Assessment Notes Treatment Notes Treatment Clinical Notes Jun, ROBYN (obstructive sleep apnea) (ICD-10 - G47.33) [facility] Other 10-02-2023 Evaluation note* Encounter Date Diagnosis Assessment Notes Treatment Notes Treatment Clinical Notes Jun, ROBYN (obstructive sleep apnea) (ICD-10 - G47.33) [facility] Other 08-01-2023 Evaluation note* Encounter Date Diagnosis [...] is present Apr, Cataplexy (ICD-10 - G47.411) [facility] Other 07-10-2023 Evaluation note* Encounter Date Diagnosis Assessment Notes Treatment Notes Treatment Clinical Notes Mar, Mild intermittent asthma, uncomplicated (ICD-10 - J45.20) [facility] Other 2023 Evaluation note* Encounter Date Diagnosis [...] night before attempted MSLT. Her persistent elevated [place] sleepiness score, at 17, continues to show [...] have not gotten the PSG MSLT documentation [facility] Other 03-23-2023 Evaluation note* Encounter Date Diagnosis Assessment Notes Treatment Notes Treatment Clinical Notes Oct, ROBYN (obstructive sleep apnea) (ICD-10 - G47.33) [facility] Other 12-27-2022 Evaluation note* Encounter Date Diagnosis Assessment Notes Treatment Notes Treatment Clinical Notes Aug, ROBYN (obstructive sleep apnea) (ICD-10 - G47.33) [facility] Other 11-01-2022 Evaluation note* Encounter Date Diagnosis [...] sleepiness does suggest the diagnosis of narcolepsy [facility] Other 09-22-2022 Evaluation note* Encounter Date Diagnosis Assessment Notes Treatment Notes Treatment Clinical Notes May, ROBYN (obstructive sleep apnea) (ICD-10 - G47.33) [facility] Other 07-18-2022 Evaluation note* Encounter Date Diagnosis Assessment Notes Treatment Notes Treatment Clinical Notes Mar, Mild intermittent asthma, uncomplicated (ICD-10 - J45.20) Take Breo 1 inhalation daily if you run out of Advair. 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) [facility] Other 01-07-2022 Evaluation note* Encounter Date Diagnosis Assessment Notes Treatment Notes Treatment Clinical Notes Sep, Mild intermittent asthma, uncomplicated (ICD-10 - J45.20) [facility] Other 01-07-2022 Evaluation note* Encounter Date Diagnosis Assessment Notes Treatment Notes Treatment Clinical Notes Sep, Narcolepsy and cataplexy (ICD-10 - G47.411) [facility] Other 12-21-2021 Evaluation note* Encounter Date Diagnosis [...] have significant positive effects on sleep apnea [facility] Other 12-18-2021 Evaluation note* Encounter Date Diagnosis Assessment Notes Treatment Notes Treatment Clinical Notes 18 Dec, 2021 Cellulitis of right lower extremity (ICD-10 - L03.115) Use medications as directed. Cover area as instructed. May use gently cleanser to area between daily application as instructed.. Follow up with primary care provider if no improvement of symptoms or if symptoms worsen. [facility] Other 12-01-2021 Evaluation note* Encounter Date Diagnosis Assessment Notes Treatment Notes Treatment Clinical Notes Aug, Narcolepsy and cataplexy (ICD-10 - G47.411) [facility] Other 10-29-2021 Evaluation note* Encounter Date Diagnosis Assessment Notes Treatment Notes Treatment Clinical Notes Jun, Narcolepsy and cataplexy (ICD-10 - G47.411) [facility] Other 09-30-2021 Evaluation note* Encounter Date Diagnosis [...] PAP for ROBYN and med for narcolepsy [facility] Other 07-12-2021 Progress note Author John Cowan [facility] March 13, 2021 9:57am Note Date/Time March 13, 2021 9:43 am [facility] [place] [address] Hem/Onc Follow Up Note - OP Signed Patient: Linda Alvarado MR#: [id number] : 1975 Acct:[id number] Age/Sex: 45 / F Type: REG RCR Copies to: MD Gita Navarrete II, PASorin~ Subjective Date/Time of Service: Date of Service: 03/13/2021 Time of Service: 09:37 Chief Complaint: Patient is here for a 4 month follow up for thrombocytosis withlabs 03/08/2021 for review. No concerns are voiced at this time. HPI: 45-year-old female primary patient of Gita Garcia nurse practitioner in [facility]. She is referred for mild thrombocytosis, then [...] lymphoma in her 40s. [place] 61 [place]. She had 6 first trimester miscarriages, one [...] of frequent infections or delayed wound healing.] [facility] - Medical History Medical History: Medical History [...] % (Auto) 67.8, Lymph % (Auto) 21.7, Perkins % (Auto) 6.5, Eos % (Auto) 2.9, Baso % (Auto) 1.1, Neut # (Auto) 5.7, Lymph # (Auto) 1.8, Perkins # (Auto) 0.5, Eos # (Auto) 0.2, [...] for coordination of care (as documented) and [id number] counseling of patient and/or family. Dictated By: John Cowan MD DD/ 0937 Signed By: <Electronically signed by John Cowan MD> 03/13/21 0957 [facility] Work Phone: 1(991) 100-541003-19-2021 Progress note Author Cheng Almaguer [facility] November 18, 2020 5:11pm Note Date/Time November 18, 2020 2:4 6pm [facility] [place] [address] Hem/Onc Follow Up Note - OP Signed with Brandon Patient: Linda Alvarado MR#: [id number] : 1975 Acct:[id number] Age/Sex: 45 / F Type: REG RCR [...] patient of Gita Garcia nurse practitioner in [facility]. She is referred for thrombocytosis. Past medical [...] lymphoma in her 40s. at 61 of [place]. She had 6 first trimester miscarriages, one [...] known thrombosis. she has never had mammogram. [facility] - Medical History Medical History: Medical History [...] for coordination of care (as documented) and fdwz-fk-[id number] counseling of patient and/or family. Attestation Statement - Physician Attestation cbc, cmp, ferritin, iron, iron sat. Jak2. she will call to discsuss results. f/u with me 1 year. Dictated By: Cheng Almaguer II, DO DD/ 1445 Signed By: <Electronically signed by Cheng Almaguer II, DO> 11/18/20 1506 [facility] Work Phone: 1(758) 208-411403-19-2021 Progress note Author Cheng Almaguer [facility] November 18, 2020 5:10pm Note Date/Time November 18, 2020 5:1 0pm [facility] at [address] [address] Hem/Onc Follow Up Note - OP Signed Patient: Linda Alvarado MR#: [id number] : 1975 Acct:[id number] Age/Sex: 45 / F Type: REG RCR Copies to: MD Gita Navarrete II, PA-C~ Subjective Date/Time of Service: Date of Service: 11/18/2020 Time of Service: 17:09 Chief Complaint: Patient is here today for a referral from LISHA Dhaliwal for elevated platelets HPI: 45-year-old female primary patient of Gita Garcia nurse practitioner in [facility]. She is referred for thrombocytosis. Past medical [...] lymphoma in her 40s. at 61 of [place]. She had 6 first trimester miscarriages, one [...] known thrombosis. she has never had mammogram. [facility] - Medical History Medical History: Medical History [...] % (Auto) 70.1, Lymph % (Auto) 22.2, Perkins % (Auto) 4.9, Eos % (Auto) 2.0, Baso % (Auto) 0.8, Neut # (Auto) 7.4, Lymph # (Auto) 2.3, Perkins # (Auto) 0.5, Eos # (Auto) 0.2, [...] for coordination of care (as documented) and zmyy-qe-hklm counseling of patient and/or family. Attestation Statement - Physician Attestation We will give 2 doses of IV Injectafer and follow-up with me in 3 months. Prior to follow-up check CBC, CMP, iron, ferritin, iron binding capacity. Dictated By: Cheng Almaguer II, DO DD/ 170 Signed By: <Electronically signed by Cheng Almaguer II, DO> 11/18/20 1710 [facility] Work Phone: Evaluation noteNo assessment information available [facility] Work Phone: Evaluation noteNo InformationNort Goc[facility] Other Evaluation note* Diagnosis Wellness examination- Primary [...] metabolism, and development documented in this encounter [facility] HealthcareEvaluation note* Diagnosis Nevus Benign neoplasm of skin, site unspecified Perioral dermatitis Rosacea documented in this encounter [facility] HealthcareEvaluation note* Diagnosis Onset Date Resolution Status Cellulitis of left lower leg noneactive [facility] Work Phone: Evaluation note* Diagnosis Onset Date Resolution Status Cellulitis of left lower leg noneactive Dysuria noneactive [facility] Work Phone: Evaluation note* Diagnosis Onset Date Resolution Status Cellulitis of left lower leg noneactive Abdominal pain acute Hypnagogic hallucinations [place] Narcolepsy and cataplexy acu te OCD (obsessive compulsive disorder) acute ROBYN (obstructive sleep apnea) acute Sleep paralysis acute [facility] Work Phone: Evaluation note* Diagnosis Ankle edema- Primary Edema Hypokalemia Hypopotassemia Peroneal tendinitis of left lower extremity Peroneal tendinitis of right lower extremity Obesity (BMI 30-39.9) Abnormal electrocardiogram Nonspecific abnormal electrocardiogram (ECG) (EKG) Family history of heart disease Venous insufficiency Unspecified venous (peripheral) insufficiency [facility] - [facility]orted* Type Description Date Medical History allergies Medical History asthma Medical History OCD (obsessive compulsive disord er) Medical History Herpes Medical History ROBYN -Auto BiPAP with maximum of 14 minimum of 5 with pressure support of 4. Surgical History D&C Surgical History cholecystectomy Surgical History carpal tunnel release Surgical History C section Hospitalization History see above [facility] Other History general Narrative - Reported* Type [...] History C section Hospitalization History see above [facility] Other History general Narrative - Reported* Type Description Date Medical History allergies Medical History asthma Medical History OCD (obsessive compulsive disord er) Medical History Herpes Medical History ROBYN -Auto BiPAP Medical History suspected narcolepsy - EDS, clinical cataplexy, inconclusive PSG/MSLT Surgical History D&C Surgical History cholecystectomy Surgical History carpal tunnel release Surgical History C section Hospitalization History see above [facility] Other Summary Purpose Family History No Family [...] 2017 9:15am Hospital Course Note MR#: [id number] [facility] Pt. Name: iLnda Alvarado Admitted: 07/07/2019 Discharged: 07/13/2019 Date of [...] Echo (TTE) Complete Gita Garcia PA [address] [facility] [address] [place] [address] [facility] [address] [place] [address] Phone: [phone] Referral ID Status Reason Start Date Expiration Date Visits Requested Visits Authorized [id number] Incomplete Perform Procedure 06/03/2024 11/30/2024 1 1 Additional Source Comments INFORMATION SOURCE (unrecogn ized section and content) DATE CREATED AUTHOR 03/28/[address] [facility] DATE CREATED AUTHOR AUTHOR'S ORGANIZ ATION 03/29/2018 [facility] DATE CREATED AUTHOR AUTHOR'S ORGANIZ ATION 07/08/2019 [facility] DATE CREATED AUTHOR AUTHOR'S ORGANIZ ATION 04/05/2020 [facility] DATE CREATED AUTHOR AUTHOR'S ORGANIZ ATION 09/19/2021 [facility] dical Specialist DATE CREATED AUTHOR AUTHOR'S ORGANIZ ATION 06/05/2024 [facility] [facility] EPIC DATE CREATED AUTHOR AUTHOR'S ORGANIZ ATION 06/25/2024 [facility] REASON [...] Active Jane Waller MD Attending Provider Active Campus President Relationship Specialty Start Date End Date Elver Mendenhall MD [address] [facility] [address] [place] [address] PCP - General Internal Medicine 03/27/23 Campus President Relationship Specialty Start Date End Date Elver Mendenhall MD [address] [place] [address] [place] [address] PCP - General Internal Medicine 03/27/23 Campus President Relationship Specialty Start Date End Date Elver Mendenhall MD [address] [facility] [address] [place] [address] PCP - General Internal Medicine 03/27/23 Team Status: Inactive Member Role Status Dates Elver Mendenhall II MD Primary Care Provider Active Start: December 25, 2023 End: December 25, 2023 Dair Patterson , [employer] Attending Provider Active S tart: December 25, [...] May 20, 2024 End: May 20, 2024 Campus President Relationship Specialty Start Date End Date Elver Mendenhall MD [address] [facility] [address] [place] [address] PCP - General Internal Medicine 03/27/23 Campus President Relationship Specialty Start Date End Date Elver Mendenhall MD [address] [facility] [address] [place] [address] PCP - General Internal Medicine 03/27/23 Goals [...] BE BASED ON THE PRIMARY CLINICAL RECORDS. [employer] provides no warranty or guarantee of the accuracy or completeness of information in this document.
== END 2024-07-03 10:45 | disposition home or self-care (01) ==
LOC: EC 10:44
PROVIDERS: PCP Internal Medicine; Visit Provider Orthopaedic Surgery Orthopaedic Surgery of the Spine
DX: M54.50 Low back pain, unspecified (principal)
CPT/HCPCS: 72110

== ENCOUNTER 2024-07-24 06:37 | Outpatient (OUT) | payer BC, SELFPAY ==
--- NOTE | 2024-07-24 06:40 | MR_ITS ---
[address] [address] Patient Name: COLEEN ALVARADO MRN: [id number] date: 1975 Sex: F Assigned Patient Location: MRI Current Patient Location: Accession/Order Number: [id number] Exam Date: 07/24/2024 06:45 Report Date: 07/25/2024 06:31 At the request of: BUCK GODWIN Procedure: MR lumbar spine wo con EXAMINATION: MR lumbar spine wo con HISTORY: Scoliosis Of Lumbar Spine, Herniated Nucleus Pulposus COMPARISON: XR lumbar spine 07/03/2024, CT lumbar spine 06/22/2024 TECHNIQUE: A variety of imaging planes and parameters were utilized for visualization of suspected pathology. FINDINGS: For the purposes of numbering, sagittal T2 image # 10 extends from the T10 vertebral body superiorly to the S5-6 level inferiorly. PARASPINAL AREA: Normal with no visible mass. BONES: Prominent left convex curvature of thoracolumbar spine. No fracture or significant listhesis. CORD/CAUDA EQUINA: Normal caliber, contour, and signal intensity. DISC LEVELS: 12-L1: No significant disc/facet abnormality, spinal stenosis, or foraminal stenosis. L1-L2: Mild central canal and moderate right foramen narrowing. No significant left foramen narrowing. Broad-based disc protrusion into the right paracentral region and right foramen which displaces the central canal nerve roots, and likely compresses the descending right L2 nerve root. No significant facet arthropathy.. L2-L3: Early degenerative disc disease is present without focal protrusion or neural impingement. L3-L4: Early degenerative disc disease is present without focal protrusion or neural impingement. L4-L5: Mild foramen narrowing bilaterally without significant central canal narrowing. Mild diffuse disc bulging without disc at reduction. Mild degenerative facet arthropathy, left greater than right. L5-S1: No significant central canal or foraminal stenosis. Minimal degenerative disc disease. Moderate left facet degenerative arthropathy. MR/MR lumbar spine wo con IMPRESSION: 1. L1-L2 degenerative disc disease causing mild central canal and moderate right foramen narrowing, and likely compressing the descending L2 nerve root. Electronically authenticated by: EBEN CROWLEY Date: 07/25/2024 06:31
--- OUTSIDE RECORDS SUMMARY | 2024-07-24 06:40 | XMS_ITS | CCD ---
Author Organization [facility] CliniSy[facility] Care Team Providers Care Forestry Instructor Name Role Phone UNKNOWN, PROVIDER Unavailable Unavailable ELVER MENDENHALL Unavailable Unavailable LINO, ELVER Primary Care Unavailable NAOMI MOROCHO Admitting Unavailable NADERETimmy, NAOMI Vasques Attending Unavailable JANE NAQVI V Consulting Unavailable NAOMI MOROCHO Consulting Unavailable NICHOLAS BOLTON Consulting Unavailable ELVER MENDENHALL Primary Care Unavailable NICHOLAS BOLTON Admitting Unavailable HOANG, NICHOLAS Attending Unavailable YAROSJOHN [place] Consulting Unavailable NICHOLAS BOLTON Consulting Unavailable HEMGITA ESCOBAR Admitting Unavailable HEMMER, GITA Segura Attending Unavailable ELVER MENDENHALL Primary Care Unavailable HEMGITA ESCOBAR Consulting Unavailable ELVER MENDENHALL Primary Care Unavailable LESLYE DOSS Consulting Unavailable LESLYE DOSS Admitting Unavailable LESLYE DOSS Attending Unavailable EKO, EBEN Warner Consulting Unavailable LUBNA MANZANARES Consulting Unavailable ELVER MENDENHALL Primary Care Unavailable LESLYE DOSS Referring Unavailable IAN KU Attending Unavailable EBRAIAN LLANES Admitting Unavailable [place] Procedure Practitioner Unavailab IAN [place] Surgeon Unavailable Jane Waller Unavailable Ciera Mcwilliams Unavailable Tracy Oliver Unavailable OSCAR Mendenhall Primary Care Provider MD Jane Waller Attending Provider [phone] OSCAR Mendenhall Primary Care Provider [phone] MD Jane Waller Attending Provider Efraín Patel Unavailable OSCAR Mendenhall Primary Care Provider [phone] MD Jane Waller. Attending Provider [phone] Elver Mendenhall MD Primary Care Provider [phone] OSCAR Mendenhall Primary Care Provider MD Jane Waller Attending Provider [phone] Jane Waller Admitting Unavailable Jane Waller Attending Unavailable Elver Mendenhall Primary [facility] Unavailable Jane Waller Attending Unavailable Jane Waller Admitting Unavailable Elver Mendenhall Primary Care Unavailable Jane Waller Attending Unavailable Jane Waller Admitting Unavailable HEMGITA ESCOBAR Attending Unavailable LUBNA LAWRENCE Attending Unavailable GITA GARCIA Attending Unavailable SEB KITCHEN Attending Unavailable SEB KITCHEN Referring Unavailable GITA GARCIA Attending Unavailable TREVER BARNARD Attending Unavailable TREVER BARNARD Attending Unavailable GITA GARCIA Attending Unavailable TREVER BARNARD Attending Unavailable Elver Mendenhall II Primary Care Provider [phone] Jane Waller MD Attending Provider Allergies Allergy Classification Reported Allergen(s) Allergy Type Date of Onset Reaction(s) Facility (2 sources) Morphine Drug Allergy 9 [facility] Repository (1 source) Sulfamethoxazole / Trimethoprim Drug Allergy 6 [facility] Repository (1 source) Sulfonamides (Antibiotic) Drug allergy (disorder) 9 [facility] Repository (20 sources) Clarithromycin; Translations: [clarithromycin] Drug Allergy 1 GI intolerance [facility] (12 sources) Sulfanilamide; Translations: [sulfanilamide] Drug Allergy 1 Unknown Reaction, Anaphylaxis [facility] (12 sources) Sulfonamides (Antibiotic) Drug Allergy 3 Unknown [...] Twice a day for 90 day(s) Active [id number] 200 actuat albuterol 0.09 mg/actuat metered dose inhaler (20 sources) beta2-Adrenergic Agonist Start: 11-18-2020 take 1 puff(s) by inhalation every four to six hours as needed Albuterol Sulfate (Proair Hfa) 90 mcg/actuation Hfa Aerosol Inhaler Active 2 PUFF INHALATION EVERY 4-6 HOURS as needed for breathing November 17, 2020 11:00pm albuterol HFA 90 mcg/act inhaler Active take 2 puff(s) by in halation every four hours as needed ProAir HFA 108 (90 Base) MCG/ACT 2 puffs as needed Inhalation every 4 hrs for 30 days Active take 3 mL by inhalat ion four times daily as needed Albuterol 0.083% 3 ml Inhalation qid prn dx: J45.20 asthma Active atorvastatin 10 mg oral tablet (20 [...] sources) Histamine-1 Receptor Antagonist Start: 11-18-2020 take 1 tablet by mouth once daily as needed Cetirizine 10 mg Tablet Active 10 MG PO Daily as needed for seasonal allergy November 17, 2020 11:00pm take 1 capsule by [facility] every twenty-four hours ZyrTEC Allergy 10 MG 1 tab(s) Orally Daily Active cholecalciferol 0.05 mg oral capsule (12 sources) Vitamin D cholecalciferol (Vitamin D-3) 50 MCG (1999) capsule Active citalopram 40 mg oral tablet (20 sources) Serotonin Reuptake Inhibitor Start: 11-19-19 End: 01-30-20 take 0.5 tablet by mouth once daily citalopram (CeleXA) 40 MG tablet Indications: Obsessive-compulsive disorder, unspecified type (CMS/HCC) Take 0.5 tablets (20 mg) by mouth Daily 45 tablet 3 03/30/2024 Active Start: 11-18-2020 End: 01-30-2024 take 0.5 [...] Start: 02-28-2023 take 1 capsule by [facility] every twenty-four hours in the morning dilTIAZem CD (Cardizem CD) 120 MG 24 hr capsule Indications: Tachycardia Take 1 capsule (120 mg) by mouth in the morning. 100 capsule 3 02/28/2023 Active Start: 11-18-2020 take 120 mg by mouth once demario y Diltiazem Hcl Active 120 MG PO Daily November 18, 2020 12:00am Diltiazem Hcl 120 mg Capsule,Ext.Rel 24h Degradable (1 source) Start: 11-18-2020 take 1 capsule by mouth once daily Diltiazem Hcl 120 mg Capsule,Ext.Rel 24h Degradable Active 120 MG PO Daily November 17, 2020 11:00pm doxycycline monohydrate 100 mg oral capsule (7 sources) Tetracycline-cla ss Drug Start: 08-19-2021 take 1 capsule by mouth every twelve hours Doxycycline Monohydrate 100 MG 1 capsule Orally every 12 hrs for 7 days Aug, Active eletriptan 40 mg oral tablet (20 sources) Serotonin-1b and Serotonin-1d Receptor Agonist Start: [...] 08/09/2023 Active fluconazole 150 mg oral tablet (14 sources) Azole Antifungal Start: 07-13-2024 fluconazole (Diflucan) 150 MG tablet Indications: Perioral dermatitis Take 1 tablet (150 mg) by mouth in the morning for 1 day. Repeat in seven days if symptoms don't resolve. 1 tablet 1 07/13/2024 Active Start: 12-25-2023 take 1 tablet by mouth once Fl uconazole 150 mg tablet Active 150 MG PO Once December 24, 2023 11:00pm Start: 08-19-2021 Diflucan 150 M G 1 tablet Orally if needed after antibiotics completed for 1 days Aug, Active fluticasone propionate 0.05 mg/actuat metered dose nasal spray (20 sources) Corticosteroid Start: 06-01-2024 take 1-2 spray(s) nasal route once daily Fluticasone Propionate 50 mcg/actuation spray,suspension Active 0 .ROUTE .COMPLEX 48 June 01, 2024 11:44am SPRAY 1 TO 2 SPRAYS INTO EACH NOSTRIL ONCE A DAY Start: 10-28-2022 take 1-2 spray(s) na pankaj route once daily fluticasone (Flonase) 50 MCG/ACT nasal spray SPRAY 1 TO 2 SPRAYS IN EACH NOSTRIL ONCE DAILY 10/28/2022 Active Start: 11-18-2020 Fluticasone Pr opionate (Flonase) 50 mcg/actuation [place],Suspension Active 1 SPRAY INTRANASAL Daily November 17, 2020 11:00pm take 1-2 spray(s) na pankaj route once [...] FOR 30 DAYS 03/13/2023 Active Start: 11-18-2020 End: 06-01-2024 Fluticasone Propion-Salmeter ol (Advair Diskus) 500-50 mcg/dose blister with device Discontinued 1 EACH INHALATION Twice daily November 17, 2020 11:00pm June 01, 2024 11:44am Start: 11-18-2020 Fluticasone Pr opion-Salmeterol (Advair Diskus) 500-50 mcg/dose blister with device Active 1 EACH INHALATION Twice daily November 17, 2020 11:00pm Start: 11-18-2020 Fluticasone Pr opion-Salmeterol (Advair Diskus) 500-50 mcg/dose blister with device Active 1 EACH INHALATION Twice daily November 18, 2020 12:00am methylPREDNISolone (13 sources) Corticosteroid Start: 07-13-2024 methylPREDNISo lone (Medrol Dospak) 4 MG tablets Indications: Peroneal tendinitis of left lower extremity , Peroneal tendinitis of right lower extremity Follow schedule on package instructions 21 tablet 07/13/2024 Active Start: 06-03-2024 End: 06-13-2024 methylPREDNISolone (Medrol D ospak) 4 MG tablets Indications: Peroneal tendinitis of [...] Aug, Active minocycline 100 mg oral capsule (12 sources) Tetracycline-class Drug Start: 07-13-2024 take 1 capsule by mouth twice daily minocycline 100 MG capsule Indications: Perioral dermatitis Take 1 capsule, by mouth, bid, 30 days 60 capsule 07/13/2024 Active Start: 09-17-2023 take 1 capsule by [facility] twice daily minocycline 100 MG capsule Indications: Perioral dermatitis Take 1 capsule, by mouth, bid, 30 days 60 capsule 09/17/2023 Active omeprazole 40 mg delayed release oral capsule (20 sources) Proton Pump Inhibitor Start: 06-30-2024 take 1 capsule by mouth in the morning omeprazole (PriLOSEC) [address] capsule Indications: Gastroesophageal reflux disease without esophagitis Take 1 capsule (40 mg) by mouth in the morning and 1 capsule (40 mg) before bedtime. 180 capsule 3 06/30/2024 Active Start: 09-26-2023 take 1 capsule by [facility] twice daily omeprazole (PriLOSEC) [address] capsule Indications: Gastroesophageal reflux disease without esophagitis TAKE 1 CAPSULE BY MOUTH TWICE DAILY 180 capsule 3 09/26/2023 Active Start: 11-18-2020 take 1 capsule by [facility] once daily Omeprazole 40 mg Capsule,Delayed Release(Dr/Ec) Active 40 MG PO Daily November 17, 2020 11:00pm potassium chloride 10 meq extended release oral tablet (16 sources) Start: 06-03-2024 take 2 tablets by [...] at the same time. 0 09/24/2022 Active Potassium Chloride (Klor-Con M10) 10 mEq tablet,ER particles/crystals (1 source) Start: 07-16-2024 Potassium Chlo ride (Klor-Con M10) 10 mEq tablet,ER particles/crystals Active MEQ PO July 16, 2024 12:00am ProAir HFA 108 (90 Base) MCG/ACT (12 [...] Jan, Active Solriamfetol (Sunosi) 150 mg tablet (9 sources) Start: 03-11-2024 take 1 tablet by mouth once daily Solriamfetol (Sunosi) 150 mg tablet Active 150 MG PO Daily March 11, 2024 12:15pm Start: 03-11-2024 take 1 tablet by willow th once daily Solriamfetol (Sunosi) 150 mg tablet Active 150 MG PO Daily March 11, 2024 1:15pm Start: 12-25-2023 End: 03-11-2024 take 1 tablet by mouth once daily Solriamfetol (Sunosi) 150 mg tablet Discontinued 150 MG PO Daily December 24, 2023 11:00pm March 11, 2024 12:15pm Start: 12-25-2023 End: 03-11-2024 take 1 tablet by mouth once daily Solriamfetol (Sunosi) 150 mg tablet Discontinued 150 MG PO Daily December 25, 2023 12:00am March 11, 2024 1:15pm Start: 12-25-2023 take 1 tablet by willow th once daily Solriamfetol (Sunosi) 150 mg tablet Active 150 MG PO Daily December 25, 2023 12:00am torsemide 10 mg oral tablet (8 sources) Loop Diuretic Start: 05-13-2024 Torsemide 10 m g tablet Active 10 MG PO July 16, 2024 12:00am valACYclovir 500 mg oral tablet (20 sources) Herpesvirus Nucleoside Analog DNA Polymerase Inhibitor, Herpes Simplex Virus Nucleoside Analog DNA Polymerase Inhibitor, Herpes Zoster Virus Nucleoside Analog DNA Polymerase Inhibitor Start: 03-21-2024 Valacyclovir 500 mg tablet Active 500 MG PO July 16, 2024 12:00am Start: 11-18-2020 End: 12-25-2023 take 1 tablet by mouth once daily Valacyclovir (Valtrex) 500 mg Tablet Discontinued 500 MG PO Daily November 17, 2020 11:00pm December 25, 2023 4:18pm take 1 tablet by willow th every twenty-four hours Valtrex 1 GM 1 tablet Orally every 24 hrs Active take 1 tablet by willow th every twenty-four hours Valtrex 1 GM 1 tablet Orally every 24 hrs Active Completed/Discontinued Medications Medication Drug Class(es) Dates Sig (Normalized) Sig (Original) amphetamine aspartate 5 mg / amphetamine sulfate [...] Discontinued 20 MG PO Twice daily March 12, 2021 11:00pm January 30, 2024 8:53am Start: 12-20-2020 End: 02-04-2024 take 1 tablet by mouth once daily Dextroamphetamine-Amphetamine (Adderall) 20 mg tablet Discontinued 20 MG PO Daily January 30, 2024 8:52am February 04, 2024 9:37am cefTRIAXone (18 sources) Cephalosporin Antibacterial Start: 03-10-2016 Rocephin 500 mg Mar, 500 mg clindamycin 300 mg oral capsule (13 sources) Lincosamide Antibacterial Start: 12-25-2023 End: 01-09-2024 take 1 capsule by mouth three times daily Clindamycin Hcl 300 mg capsule Discontinued 300 MG PO Three times daily 30 December 24, 2023 11:00pm January 09, 2024 2:18pm Start: 04-29-2023 End: 06-03-2024 clindamycin (Clindagel) 1 % gel Indications: Perioral dermatitis Apply to face BID 60 g 1 04/29/2023 06/03/2024 Discontinued (Other) cyclobenzaprine hydrochloride 5 mg oral tablet (11 sources) Muscle Relaxant Start: 11-18-2020 End: 01-30-2024 Cyclobenzaprine 5 mg Tablet Discontinued 5 MG PO As Directed as needed for Muscle Spasm November 17, 2020 11:00pm January 30, 2024 8:52am hydroCHLOROthiazide 25 mg oral tablet (20 sources) Thiazide Diuretic Start: 11-18-2020 End: 07-16-2024 take 1 tablet by mouth once daily Hydrochlorothiazide 25 mg tablet Discontinued 25 MG PO Daily December 24, 2023 11:00pm July 16, 2024 4:20pm modafinil 200 mg oral tablet (11 sources) Sympathomimetic-l thanh Agent Start: 11-18-2020 End: 03-13-2021 take 1 tablet by mouth twice daily Modafinil 200 mg Tablet Discontinued 200 MG PO Twice daily November 17, 2020 11:00pm March 13, 2021 8:12am mupirocin 0.02 mg/mg topical ointment (20 sources) RNA Synthetase Inhibitor Antibacterial Start: 08-19-2021 Mupirocin 2 % 1 application with Qtip to affected area Externally 2 times a day for 7 days Aug, Not-Taking/PRN promethazine hydrochloride 25 mg oral tablet (11 sources) Phenothiazine Start: 11-18-2020 End: 12-25-2023 take 1 tablet by mouth twice daily Promethazine 25 mg Tablet Discontinued 25 MG PO Twice daily November 17, 2020 11:00pm December 25, 2023 4:18pm Problems Active Problems Problem Classification Problem Date Documented Date Episodic/Chronic Abdominal pain (12 sources) Abdominal pain; Translations: [Unspecified abdominal pain] Onset: 05-13-2024 01-09-2024 Episodic Anxiety disorders (19 sources) Obsessive-compulsive disorder; Translations: [Obsessive-compulsive disorder, unspecified] Onset: 11-17-2008 02-20-2023 Chronic Anxiety disorders (1 source) Obsessive-compulsive disorder, unspecified; Translations: [OBSESSIVE-COMPULSIVE D/O UNSPEC] Onset: 01-06-2019 Disorders of lipid metabolism (14 sources) Mixed hyperlipidemia; Translations: [Mixed hyperlipidemia] Onset: 04-08-2014 02-20-2023 Chronic Esophageal disorders (15 sources) Gastro-esophageal reflux disease without esophagitis; Translations: [Gastroesophageal reflux disease without esophagitis] Onset: 07-08-2019 02-20-2023 Chronic External cause codes: Fall (1 source) Fall on same level, unspecified, initial encounter; Translations: [FALL SAME LEVEL UNSPECIFIED INITIAL] Onset: 07-08-2019 Female infertility (14 sources) Female infertility; Translations: [Female infertility, unspecified] Onset: 01-18-2011 03-27-2023 Chronic Fluid and electrolyte disorders (11 sources) Hypokalemia; Translations: [Dehydration] Onset: 01-06-2019 06-03-2024 Episodic Genitourinary symptoms and ill-defined conditions (1 source) Dysuria; Translations: [Dysuria] 01-09-2024 Episodic Headache; including migraine (12 sources) Migraine; Translations: [Migraine, unspecified, not intractable, without status migrainosus] Onset: 11-17-2008 02-20-2023 Chronic Nonspecific chest pain (1 source) Chest pain, unspecified; Translations: [Chest pain, unspecified] Onset: 03-27-2018 Episodic Other aftercare (1 source) Other exterminator helper (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 therapy; Translations: [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] Onset: 07-08-2019 Episodic Other and unspecified benign neoplasm (2 sources) Benign neoplasm of soft tissue; Translations: [Melanocytic nevi, unspecified] 10-14-2023 Episodic Other connective tissue disease (1 source) Pain in left leg; Translations: [PAIN IN LEFT LEG] Onset: 05-26-2019 Episodic Other connective tissue disease (2 sources) Pain in bilateral legs; Translations: [Pain in right leg] 10-04-2023 Episodic Other connective tissue disease (12 sources) Peroneal tendinitis of left lower limb; Translations: [Peroneal tendinitis, left leg] Onset: 06-03-2024 06-03-2024 Episodic Other connective tissue disease (12 sources) Peroneal tendinitis of right lower limb; Translations: [Peroneal tendinitis, right leg] Onset: 06-03-2024 06-03-2024 Episodic Other diseases of veins and lymphatics (11 sources) Vascular insufficiency; Translations: [Venous insufficiency (chronic) [...] Onset: 05-23-2019 Episodic Other upper respiratory disease (14 sources) Allergic rhinitis; Translations: [Other allergic rhinitis] [...] 06-01-2021 Resolved: 02-22-2022 Chronic Residual codes; unclassified (20 sources) Sleep paralysis; Translations: [Other sleep disorders] [...] 06-01-2021 Resolved: 02-22-2022 Episodic Residual codes; unclassified (9 sources) Family history of cardiac disorder; Translations: [...] pain, unspecified / R07.9(ICD-9) Onset: 03-27-2018 Unclassified (7 sources) Patient on antidepressant monitoring plan Onset: 03-30-2024 03-30-2024 Unclassified (7 sources) Baseline PHQ-9 Onset: 03-30-2024 03-30-2024 Past or Other Problems Problem Classification Problem Date Documented Da te Episodic/Chronic Asthma (20 sources) Unspecified asthma, uncomplicated; Translations: [Mild intermittent asthma] Onset: 9 Resolved: 3 Chronic Cardiac dysrhythmias (14 sources) Tachycardia; Translations: [Tachycardia, unspecified] Onset: 3 02-20-2023 Episodic Contraceptive and procreative management (12 sources) Patient encounter status; Translations: [Encounter for fertility testing] Onset: 1 Resolved: 4 03-27-2023 Episodic Deficiency and other anemia (20 sources) Anemia; Translations: [Anemia, unspecified] Onset: 4 03-13-2021 Episodic Diabetes mellitus without complication (14 sources) Impaired fasting glycemia; Translations: [Impaired fasting glucose] Onset: 3 02-20-2023 Episodic Diabetes or abnormal glucose tolerance complicating ; childbirth; or the puerperium (14 sources) History of gestational diabetes mellitus; Translations: [Personal history of gestational diabetes] Onset: 3 02-20-2023 Episodic Fever of unknown origin (1 source) Fever, unspecified; Translations: [FEVER UNSPECIFIED] Onset: 9 Episodic Fracture of lower limb (13 sources) Displaced bicondylar fracture of right tibia, [...] COLITIS UNS] Onset: 9 Episodic Nutritional deficiencies (14 sources) Iron deficiency; Translations: [Iron deficiency] Onset: 3 02-20-2023 Episodic Other gastrointestinal disorders (1 source) Diarrhea, unspecified; Translations: [DIARRHEA UNSPECIFIED] Onset: 9 Episodic Other injuries and conditions due to external causes (14 sources) H/O: fracture; Translations: [Personal history of (healed) traumatic fracture] Onset: 3 02-20-2023 Episodic Other liver diseases (14 sources) ALT (SGPT) level raised; Translations: [Elevated ALT measurement] Onset: 3 02-20-2023 Episodic Other nervous system disorders (12 sources) Narcolepsy without cataplexy ; 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 without cataplexy] Onset: 3 Resolved: 3 03-28-2023 Chronic Other non-traumatic joint disorders (16 sources) Ankle edema; Translations: [Effusion, unspecified ankle] Onset: 3 02-20-2023 Episodic Other screening for suspected conditions (not mental disorders or infectious disease) (17 sources) Abnormal electrocardiogram [ECG] [EKG]; Translations: [Electrocardiogram [...] Jane Waller on 05-20-2024 Amphetamines Ql (U) Amphetamines screen Negativ e [facility] Amphetamines Ql (U) Negative Negative [facility] Barbiturates [Presence] in U rine by Screen methodOrdered By: Jane Waller on 05-20-2024 Barbiturates Screen Ql (U) Negative Negative [facility] Barbiturates Screen Ql (U) Barbiturates [Presence] in Urine by Screen method Negative [facility] Benzodiazepines Screen Ql (U )Ordered By: Jane Waller on 05-20-2024 Benzodiazepines Ql (U) Negative Negative [facility] Benzodiazepines Ql (U) Benzodiazepines [Presence] in Urine by Screen method Negative [facility] Benzoylecgonine [Presence] i n Urine by Screen methodOrdered By: Jane Waller on 05-20-2024 Benzoylecgonine Screen Ql (U) Negative Negative [facility] Benzoylecgonine Screen Ql (U) Benzoylecgonine [Presence] in Urine by Screen method Negative [facility] Cannabinoids [Presence] in U rine by Screen methodOrdered By: Jane Waller on 05-20-2024 Cannabinoids Screen Ql (U) Negative Negative [facility] Comment on above: These are unconfirme d results and should not be used for legal purposes. Drug Cut-Off Concentration: AMPH 1000 ng/mL KEITH 200 ng/mL LARS 200 ng/mL COCM 300 ng/mL OP 300 ng/mL PCP 25 ng/mL THC 20 ng/mL Cannabinoids Screen Ql (U) Cannabinoids [Presence] in Urine by Screen method Negative [facility] Comment on above: These are unconfirme d results and should not be used for legal purposes. Drug Cut-Off Concentration: AMPH 1000 ng/mL KEITH 200 ng/mL LARS 200 ng/mL COCM 300 ng/mL OP 300 ng/mL PCP 25 ng/mL THC 20 ng/mL Drug Screen,Urineon 05-20-20 Amphetamine Screen,Urine Negative Normal Negative [facility] Comment on above: Performed By: #### U RDS #### [address] Barbiturate Screen,Urine Negative Normal Negative [facility] Comment on above: Performed By: #### U RDS #### [place] [address] [place] Benzodiazepines Screen,Urine Negative Normal Negative [facility] Comment on above: Performed By: #### U RDS #### [place] [address] [place] Cannabinoid Screen,Urine Negative Normal Negative [facility] Comment on above: Result Comment: Thes e are unconfirmed results and should not be used for legal purposes. Drug Cut-Off Concentration: AMPH 1000 ng/mL KEITH 200 ng/mL LARS 200 ng/mL COCM 300 ng/mL OP 300 ng/mL PCP 25 ng/mL THC 20 ng/mL PERFORMED BY: [place] [address] PATHOLOGIST BEAM CARRIER HAULER PUSHER YENNIFER BROWN M.D. Performed By: #### U RDS #### [address] [place] [address] [place] Cocaine Screen,Urine Negative Normal Negative [facility] Comment on above: Performed By: #### U RDS #### [facility] [address] [place] [address] [place] Opiate Screen,Urine Negative Normal Negative [facility] Comment on above: Performed By: #### U RDS #### [facility] [address] Phencyclidine Screen,Urine Negative Normal Negative [facility] Comment on above: Performed By: #### U RDS #### [facility] [address] Opiates [Presence] in Urine by Screen methodOrdered By: Jane Waller on 05-20-2024 Opiates Screen Ql (U) Negative Negative [facility] Opiates Screen Ql (U) Opiates [Presence] in Urine by Screen method Negative [facility] Phencyclidine Screen Ql (U)O rdered By: Jane Waller on 05-20-2024 Phencyclidine Ql (U) Negative Negative [facility] Phencyclidine Ql (U) Phencyclidine [Presence] in Urine by Screen method Negative [facility] Laboratory - Chemistry and C hemistry - challengeon 01-09-2024 Bilirubin Ql (U) Negative [facility] Glucose (U) [Mass/Vol] Negative [facility] Ketones Ql (U) Negative [facility] pH (U) 6.0 [pH] [facility] Specific gravity (U) [Rel density] 1.020 [facility] Urobilinogen (U) [Mass/Vol] 0.2 mg/dL [facility] Laboratory - Specimen inform ationon 01-09-2024 Appearance (U) clear [facility] Color (U) yellow [facility] Laboratory - Urinalysison Leukocyte esterase Test strip Ql (U) Negative [facility] Nitrite Ql (U) Negative [facility] Protein Ql (U) Negative [facility] No Panel Informationon 01-08 Urine Occult Blood Negative [facility] Complete Blood Count with Au to Diffon 09-18-2021 Basophils (Bld) [#/Vol] 0.09 10*3/uL Normal 0.00-0.[address] [facility] Specialist Comment on above: Performed By: #### C BCAD, CMP, LIPD, FE Prof #### [facility] [address], [place] [id number] Basophils/100 WBC (Bld) 1.2 % Normal [facility] Specialist Comment on above: Performed By: #### C BCAD, CMP, LIPD, FE Prof #### [facility] [address], [place] [id number] Eosinophils (Bld) [#/Vol] 0.18 10*3/uL Normal 0.02-0.50 [facility] Consultant Comment on above: Performed By: #### C BCAD, CMP, LIPD, FE Prof #### [facility] [address], [place] [id number] Eosinophils/100 WBC (Bld) 2.5 % Normal [facility] Consultant Comment on above: Performed By: #### C BCAD, CMP, LIPD, FE Prof #### [facility] [address], [place] [id number] Erythrocyte distribution width (RBC) [Ratio] 12.4 % Normal 11.0-15.0 [facility] Consultant Comment on above: Performed By: #### C BCAD, CMP, LIPD, FE Prof #### [facility] [address], [place] [id number] Hematocrit (Bld) [Volume fraction] 41.2 % Normal 35.0-47.0 [facility] Consultant Comment on above: Performed By: #### C BCAD, CMP, LIPD, FE Prof #### [facility] [address], [place] [id number] Hemoglobin (Bld) [Mass/Vol] 14.2 g/dL Normal 11.6-15.5 [facility] Consultant Comment on above: Performed By: #### C BCAD, CMP, LIPD, FE Prof #### [facility] [address], [place] [id number] Lymphocytes (Bld) [#/Vol] 2.3 10*3/uL Normal 0.9-3.9 [facility] Consultant Comment on above: Performed By: #### C BCAD, CMP, LIPD, FE Prof #### [facility] [address], [place] [id number] Lymphocytes/100 WBC (Bld) 31.5 % Normal [facility] Specialist Comment on above: Performed By: #### C BCAD, CMP, LIPD, FE Prof #### [facility] [address], [place] [id number] MCH (RBC) [Entitic mass] 33.4 pg High 27.0-33.[address] [facility] Specialist Comment on above: Performed By: #### C BCAD, CMP, LIPD, FE Prof #### [facility] [address], [place] [id number] MCHC (RBC) [Mass/Vol] 34.5 g/dL Normal 32.0-36.[address] [facility] Specialist Comment on above: Performed By: #### C BCAD, CMP, LIPD, FE Prof #### [facility] [address], [place] [id number] MCV (RBC) [Entitic vol] 97 fL Normal 80-100 [facility] Consultant Comment on above: Performed By: #### C BCAD, CMP, LIPD, FE Prof #### [facility] [address], [place] [id number] Monocytes (Bld) [#/Vol] 0.5 10*3/uL Normal 0.2-0.[address] [facility] Specialist Comment on above: Performed By: #### C BCAD, CMP, LIPD, FE Prof #### [facility] [address], [place] [id number] Monocytes/100 WBC (Bld) 6.2 % Normal [facility] Specialist Comment on above: Performed By: #### C BCAD, CMP, LIPD, FE Prof #### [facility] [address], [place] [id number] Neutrophils (Bld) [#/Vol] 4.2 10*3/uL Normal 1.5-7.[address] [facility] Specialist Comment on above: Performed By: #### C BCAD, CMP, LIPD, FE Prof #### [facility] [address], [place] [id number] Neutrophils/100 WBC (Bld) 58.5 % Normal [facility] Comment on above: Performed By: #### C BCAD, CMP, LIPD, FE Prof #### [facility] [address], [place] [id number] Platelet mean volume (Bld) [Entitic vol] 8.10 fL Normal 7.50-12.50 [facility] Comment on above: Performed By: #### C BCAD, CMP, LIPD, FE Prof #### [facility] [address], [place] [id number] Platelets (Bld) [#/Vol] 389 10*3/uL Normal 140-[address] [facility] Specialist Comment on above: Performed By: #### C BCAD, CMP, LIPD, FE Prof #### [facility] [address], [place] [id number] RBC (Bld) [#/Vol] 4.25 10*6/uL Normal 3.90-5.20 [facility] Consultant Comment on above: Performed By: #### C BCAD, CMP, LIPD, FE Prof #### [facility] [address], [place] [id number] RDW-SD 44.2 fL Normal 37.0-50.[address] [facility] Specialist Comment on above: Performed By: #### C BCAD, CMP, LIPD, FE Prof #### [facility] [address], [place] [id number] WBC (Bld) [#/Vol] 7.2 10*3/uL Normal 3.8-11.0 [facility] Consultant Comment on above: Performed By: #### C BCAD, CMP, LIPD, FE Prof #### [facility] [address], [place] [id number] Comprehensive Metabolic Pane nichole 09-18-2021 Albumin [Mass/Vol] 4.5 g/dL Normal 3.6-5.1 [facility] Consultant Comment on above: Performed By: #### C BCAD, CMP, LIPD, FE Prof #### [facility] [address], [place] [id number] Albumin/Globulin [Mass ratio] 2.1 {ratio} Normal 1.0-2.5 [facility] Comment on above: Performed By: #### C BCAD, CMP, LIPD, FE Prof #### [facility] [address], [place] [id number] ALP [Catalytic activity/Vol] 64 U/L Normal 35-[address] [facility] Specialist Comment on above: Performed By: #### C BCAD, CMP, LIPD, FE Prof #### [facility] [address], [place] [id number] ALT [Catalytic activity/Vol] 52 U/L High 6-33 [facility] Comment on above: Result Comment: 08/02 Female reference range changed. Performed By: #### C BCAD, CMP, LIPD, FE Prof #### [facility] [address], [place] [id number] Anion gap [Moles/Vol] 15 mmol/L Normal 12-[address] [facility] Specialist Comment on above: Result Comment: Effe ctive 09/07/2019 reference range changed. Performed By: #### C BCAD, CMP, LIPD, FE Prof #### [facility] [address], [place] [id number] AST [Catalytic activity/Vol] 29 U/L Normal 9-34 [facility] Comment on above: Performed By: #### C BCAD, CMP, LIPD, FE Prof #### [facility] [address], [place] [id number] Bilirubin [Mass/Vol] 0.57 mg/dL Normal 0.30-1.20 [facility] Comment on above: Performed By: #### C BCAD, CMP, LIPD, FE Prof #### [facility] [address], [place] [id number] BUN/CREA 18 Ratio Normal 6-22 [facility] Comment on above: Performed By: #### C BCAD, CMP, LIPD, FE Prof #### [facility] [address], [place] [id number] Calcium [Mass/Vol] 9.5 mg/dL Normal 8.6-10.2 [facility] Consult[facility] Comment on above: Performed By: #### C BCAD, CMP, LIPD, FE Prof #### [facility] [address], [place] [id number] Chloride [Moles/Vol] 103 mmol/L Normal 98-107 [facility] Specialist Comment on above: Performed By: #### C BCAD, CMP, LIPD, FE Prof #### [facility] [address], [place] [id number] CO2 [Moles/Vol] 27 mmol/L Normal 20-31 [facility] Consultant Comment on above: Performed By: #### C BCAD, CMP, LIPD, FE Prof #### [facility] [address], [place] [id number] Creatinine [Mass/Vol] 0.7 mg/dL Normal 0.6-1.4 [facility] Consultant Comment on above: Performed By: #### C BCAD, CMP, LIPD, FE Prof #### [facility] [address], [place] [id number] eGFRAA 112 mL/min/1.73m2 Normal >60 [facility] Specialist Comment on above: Performed By: #### C BCAD, CMP, LIPD, FE Prof #### [facility] [address], [place] [id number] eGFRNAA 92 mL/min/1.73m2 Normal >60 [facility] Consultant Comment on above: Performed By: #### C BCAD, CMP, LIPD, FE Prof #### [facility] [address], [place] [id number] Globulin (S) [Mass/Vol] 2.1 g/dL Normal 1.9-3.7 [facility] Consultant Comment on above: Performed By: #### C BCAD, CMP, LIPD, FE Prof #### [facility] [address], [place] [id number] Glucose [Mass/Vol] 123 mg/dL High 65-99 [facility] Consultant Comment on above: Result Comment: For FASTING Glucose --- ADA reference ranges: Normal 65-99 mg/dl Prediabetes 100-125 Diabetes >/= 126 Performed By: #### C BCAD, CMP, LIPD, FE Prof #### [facility] [address], [place] [id number] Potassium [Moles/Vol] 3.7 mmol/L Normal 3.5-5.5 [facility] Consultant Comment on above: Performed By: #### C BCAD, CMP, LIPD, FE Prof #### [facility] [address], [place] [id number] Protein [Mass/Vol] 6.6 g/dL Normal 6.1-8.1 [facility] Consultant Comment on above: Performed By: #### C BCAD, CMP, LIPD, FE Prof #### [facility] [address], [place] [id number] Sodium [Moles/Vol] 141 mmol/L Normal 135-146 [facility] Consultant Comment on above: Performed By: #### C BCAD, CMP, LIPD, FE Prof #### [facility] [address], [place] [id number] Urea nitrogen [Mass/Vol] 12 mg/dL Normal 7-25 [facility] Consultant Comment on above: Performed By: #### C BCAD, CMP, LIPD, FE Prof #### [facility] [address], [place] [id number] Iron Profileon 09-18-2021 %FESAT 38 % Normal 11-[address] [facility] Specialist Comment on above: Performed By: #### C BCAD, CMP, LIPD, FE Prof #### [facility] [address], [place] [id number] FE 113 ug/dL Normal 40-190 [facility] Consultant Comment on above: Result Comment: Refe rence range change 07/19/2017. Prior reference range F 37-145 ug/dL, M 59-158 ug/dL. Performed By: #### C BCAD, CMP, LIPD, FE Prof #### [facility] [address], [place] [id number] TIBC 297 ug/dL Normal 250-450 [facility] Consultant Comment on above: Performed By: #### C BCAD, CMP, LIPD, FE Prof #### [facility] [address], [place] [id number] UIBC 184 ug/dL Normal 112-[address] [facility] Specialist Comment on above: Performed By: #### C BCAD, CMP, LIPD, FE Prof #### [facility] [address], [place] [id number] Lipid Panelon 09-18-2021 Cholesterol [Mass/Vol] 238 mg/dL High 125-200 [facility] Consultant Comment on above: Result Comment: Low risk < 200mg/dL Borderline risk 201-239 mg/dl High risk > or equal to 240 Performed By: #### C BCAD, CMP, LIPD, FE Prof #### [facility] [address], [place] [id number] Cholesterol in HDL [Mass/Vol] 42 mg/dL Normal >40 [facility] Consultant Comment on above: Result Comment: High Cardiovascular Risk HDL <40 mg/dL Low Cardiovascular Risk HDL > or equal to 60 mg/dl Performed By: #### C BCAD, CMP, LIPD, FE Prof #### [facility] [address], [place] [id number] Cholesterol in LDL [Mass/Vol] 131 mg/dL Normal [facility] Specialist Comment on above: Result Comment: LDL ATP III CLASSIFICATION LDL less than 100 mg/dl Optimal LDL 100-129 mg/dl Near or above optimal LDL 130-159 Borderline high LDL 160-189 High LDL greater than 189 mg/dl Very High Performed By: #### C BCAD, CMP, LIPD, FE Prof #### [facility] [address], [place] [id number] Cholesterol in VLDL [Mass/Vol] 65 mg/dL Normal [facility] Consultant Comment on above: Performed By: #### C BCAD, CMP, LIPD, FE Prof #### [facility] [address], [place] [id number] Cholesterol.total/Ch olesterol in HDL [Mass ratio] 6 {ratio} Normal [facility] Specialist Comment on above: Performed By: #### C BCAD, CMP, LIPD, FE Prof #### [facility] [address], [place] [id number] Triglyceride [Mass/Vol] 326 mg/dL High 30-150 [facility] Consultant Comment on above: Result Comment: TRIG ATPIII CLASSIFICATIONS TRIG less than 150 mg/dl Normal TRIG 150-199 mg/dl Borderline High TRIG 200-500 mg/dl High TRIG greather than 500 mg/dl Very High Performed By: #### C BCAD, CMP, LIPD, FE Prof #### [facility] [address] [place] Khalil [id number] KNEE RIGHT 3 [facility] 0 KNEE RIGHT 3 [facility] Department of Radiology [address] [place] [id number] Patient Name: LINDA ALVARADO : 1975 Sex: F Age: Race: White Pt. Location: Patient Status: O Ordered Date: 03/31/2020 1:55:00 PM Completed Date: 03/31/2020 01:59 PM Requesting Provider: JONAS BISHOP Attending Provider: JONAS BISHOP Report Copy To: Signs & Symptoms: S82.101D Unsp fx upper end of r tibia, subs for clos fx w routn heal I10 History: [place] Comments: Weight Bearing?: Y Exam: KNEE RIGHT 3 [facility] KNEE RIGHT 3 [facility] 03/31/2020 1:59 PM CLINICAL INDICATIONS: S82.101D [...] fracture Electronically signed: Jonas Robbins. Transcribed by: [email or web address], User Resident: Electronically Signed by: JONAS ROBBINS @ 03/31/2020 02:03 PM Normal [facility] Comment on above: Order Comment: Weigh t Bearing?: Y KNEE RIGHT 3 [facility] 0 KNEE RIGHT 3 [facility] Department of Radiology [address] [place] [phone] Patient Name: LINDA ALVARADO : 1975 Sex: F Age: Race: White Pt. Location: Patient Status: O Ordered Date: 10/12/2019 11:20:00 AM Completed Date: 10/12/2019 11:29 AM Requesting Provider: JONAS BISHOP Attending Provider: JONAS BISHOP Report Copy To: ELVER MENDENHALL Signs & Symptoms: S82.101D Unsp fx upper end of r tibia, subs for clos fx w routn heal I10 History: [place] Comments: , , , Ordering Provider - JONAS BISHOP PA-C , Exam: KNEE RIGHT 3 [facility] KNEE RIGHT 3 S 10/12/2019 11:29 AM [...] alignment Electronically signed: Ying Enriquez. Transcribed by: [email or web address], User Resident: Electronically Signed by: YING ENRIQUEZ @ 10/12/2019 12:10 PM Normal [facility] Comment on above: Order Comment: , , = ========= , Ordering Provider - JONAS BISHOP PA-C , KNEE RIGHT 1 OR 2 [facility] 09-02 KNEE RIGHT 1 OR 2 [facility] Department of Radiology [address] [place] [phone] Patient Name: LINDA ALVARADO : 1975 Sex: F Age: Race: White Pt. Location: Patient Status: Ordered Date: 09/14/2019 10:40:00 AM Completed Date: 09/14/2019 11:01 AM Requesting Provider: JONAS BISHOP Attending Provider: Report Copy To: Signs & Symptoms: S82.101D Unsp fx upper end of r tibia, subs for clos fx w routn heal I10 History: [place] Comments: , , , Ordering Provider - JONAS BISHOP PA-C , Exam: KNEE RIGHT 1 OR 2 [facility] KNEE RIGHT 1 OR 2 [facility] 09/14/2019 11:01 AM SIGNS AND SYMPTOMS: S82.101D [...] hardware unchanged incomplete healing Electronically signed: Stephanie Miller. Transcribed by: [email or web address], User Resident: Electronically Signed by: STEPHANIE MILLER @ 09/14/2019 05:22 PM Normal [facility] Comment on above: Order Comment: , , = ========= , Ordering Provider - JONAS BISHOP PA-C , KNEE RIGHT 1 OR 2 [facility] 08-02 KNEE RIGHT 1 OR 2 [facility] Department of Radiology [address] [place] [phone] Patient Name: LINDA ALVARADO : 1975 Sex: F Age: Race: White Pt. Location: 84 Patient Status: O Ordered Date: 08/17/2019 1:25:00 PM Completed Date: 08/17/2019 01:26 PM Requesting Provider: JONAS BISHOP Attending Provider: JONAS BISHOP Report Copy To: ELVER MENDENHALL Signs & Symptoms: S82.101A Unsp fracture of upper end of right tibia, init for clos fx I10 History: [place] Comments: , Views (X-RAY, KNEE): AP, Lateral , Views (X-RAY, KNEE): AP, Lateral , , , Ordering Provider - JONSA BISHOP PA-C , Exam: KNEE RIGHT 1 [...] 2. Small suprapatellar effusion Electronically signed by:Stephanie Miller. Transcribed by: [email or web address], User Resident: Electronically Signed by: STEPHANIE MILLER @ 08/17/2019 03:52 PM Normal [facility] Comment on above: Order Comment: , Vie ws (X-RAY, KNEE): AP, Lateral , Views (X- RAY, KNEE): AP, Lateral , , , Ordering Provider - JONAS BISHOP PA-C , VITAMIN D 25-HYDROXYon 08-17 VITAMIN D 25-OH 35.4 ng/mL Normal 30.0-80.0 [facility] Comment on above: Result Comment: >80. 0 Toxicity possible Performed By: #### 5 6101, 18497 #### [address] KNEE RIGHT 1 OR 2 [facility] 07-03 KNEE RIGHT 1 OR 2 [facility] Department of Radiology [address] [place] [phone] Patient Name: LINDA ALVARADO : 1975 Sex: F Age: Race: White Pt. Location: Patient Status: Ordered Date: 07/20/2019 10:30:00 AM Completed Date: 07/20/2019 10:42 AM Requesting Provider: SHWETA VIDAL Attending Provider: Report Copy To: Signs & Symptoms: S82.101A Unsp fracture of upper end of right tibia, init for clos fx I10 History: [place] Comments: , , , Ordering Provider - [...] plateau fracture. Incomplete healing Electronically signed by:Stephanie Miller. Transcribed by: [email or web address], User Resident: Electronically Signed by: STEPHANIE MILLER @ 07/20/2019 05:04 PM Normal [facility] Comment on above: Order Comment: , , = ========= , Ordering Provider - SHWETA VIDAL PA-C , BASIC METABOLIC PANELon 11-0 Calcium [Mass/Vol] 8.8 mg/dL Normal 8.6-10.3 [facility] Comment on above: Order Comment: No: D o not add to previous draw Performed By: #### 5 6101, 88268 #### [facility] [address] [place] [address], [facility] Chloride [Moles/Vol] 99 mmol/L Normal 98-107 [facility] Comment on above: Order Comment: No: D o not add to previous draw Performed By: #### 5 610, 60429 #### [facility] [address] [place] [address], [place] CO2 [Moles/Vol] 27 mmol/L Normal 21-31 [facility] Comment on above: Order Comment: No: D o not add to previous draw Performed By: #### 5 610, 34497 #### [facility] [address] [place] [address], [place] Creatinine [Mass/Vol] 0.81 mg/dL Normal 0.60-1.20 [facility] Comment on above: Order Comment: No: D o not add to previous draw Performed By: #### 5 610, 88751 #### [facility] [address] [place] [address], [place] GFR/1.73 sq M predicted among blacks MDRD (S/P/Bld) [Vol rate/Area] mL/min/{1.73_m2} Normal >60 [facility] Comment on above: Order Comment: No: D o not add to previous draw Performed By: #### 5 610, 29234 #### [facility] [address] [place] [address], [place] GFR/1.73 sq M predicted among non-blacks MDRD (S/P/Bld) [Vol rate/Area] mL/min/{1.73_m2} Normal >60 [facility] Comment on above: Order Comment: No: D o not add to previous draw Performed By: #### 5 6101, 25966 #### [facility] [address] [place] [address], [place] Glucose [Mass/Vol] 105 mg/dL High 70-100 [facility] Comment on above: Order Comment: No: D o not add to previous draw Performed By: #### 5 610, 61957 #### [facility] [address] [place] [address], [facility] Potassium [Moles/Vol] 3.8 mmol/L Normal 3.5-5.1 [facility] Comment on above: Order Comment: No: D o not add to previous draw Performed By: #### 5 610, 51910 #### [facility] [address] [place] [address], [place] Sodium [Moles/Vol] 133 mmol/L Low 136-145 [facility] Comment on above: Order Comment: No: D o not add to previous draw Performed By: #### 5 6100, 11244 #### [facility] [address] [place] [address], [facility] Urea nitrogen [Mass/Vol] 10 mg/dL Normal 7-25 [facility] Comment on above: Order Comment: No: D o not add to previous draw Performed By: #### 5 6100, 17345 #### [facility] [address] [place] [address], [facility] CBC COMPLETE BLOOD COUNTon 09-07-2018 Erythrocyte distribution width (RBC) [Ratio] 13.3 % Normal 11.5-15.0 [facility] Comment on above: Order Comment: No: D o not add to previous draw Performed By: #### 5 6100, 27617 #### [facility] [address] [place] [address], [facility] Hematocrit (Bld) [Volume fraction] 36.1 % Normal 36.0-45.0 [facility] Comment on above: Order Comment: No: D o not add to previous draw Performed By: #### 5 610, 94792 #### [facility] [address] [place] [address], [facility] Hemoglobin (Bld) [Mass/Vol] 11.6 g/dL Low 12.0-15.0 [facility] Comment on above: Order Comment: No: D o not add to previous draw Performed By: #### 5 6100, 07026 #### [facility] [address] [place] [id number], [facility] MCH (RBC) [Entitic mass] 31.2 pg Normal 27.0-33.0 [facility] Comment on above: Order Comment: No: D o not add to previous draw Performed By: #### 5 6100, 00184 #### [facility] [address] [place] [id number], [facility] MCHC (RBC) [Mass/Vol] 32.1 g/dL Normal 32.0-35.0 [facility] Comment on above: Order Comment: No: D o not add to previous draw Performed By: #### 5 6100, 51241 #### [facility] [address] [place] [address], [facility] MCV (RBC) [Entitic vol] 97.0 fL Normal 82.0-98.0 [facility] Comment on above: Order Comment: No: D o not add to previous draw Performed By: #### 5 6100, 06508 #### [facility] [address] [place] [address], [facility] Nucleated RBC/100 WBC (Bld) [Ratio] 0 % Normal 0-0 [facility] Comment on above: Order Comment: No: D o not add to previous draw Performed By: #### 5 6100, 10943 #### [facility] [address] [place] [address], [facility] PLAT CNT 447 10*3/uL High 150-400 [facility] Comment on above: Order Comment: No: D o not add to previous draw Performed By: #### 5 610, 27528 #### [facility] [address] [place] [address], [facility] RBC (Bld) [#/Vol] 3.72 10*6/uL Low 3.80-5.00 [facility] Comment on above: Order Comment: No: D o not add to previous draw Performed By: #### 5 6101, 19754 #### [facility] [address] WBC (Bld) [#/Vol] 16.46 10*3/uL High 4.00-10.60 [facility] Comment on above: Order Comment: No: D o not add to previous draw Performed By: #### 5 6101, 33988 #### [facility] [address] *MRSA/MSSA DNA NASALon 07-07 *MRSA/MSSA DNA NASAL Clinical Report: (D ) Specimen: NASAL SWAB Collected: 07/07/2019 08:00 Status: Final Last Updated: 07/07/2019 14:28 MSSA DNA (Final) Methicillin Susceptible Staphylococcus aureus DNA Detected MRSA DNA (Final) Negative Normal [facility] Comment on above: Performed By: #### 5 6101, 48177 #### [facility] [address] APTTon 07-07-2019 aPTT Coag (Bld) [Time] 38.8 s High 25.0-35.0 [facility] Comment on above: Result Comment: ALL [...] THIS PURPOSE. Performed By: #### 5 6101, 92831 #### [facility] [address] [facility]. [address] CBC W/DIFFon 07-07-2019 ABS BASOPHILS 0.1 10*3/uL Normal 0.0-0.2 [facility] Comment on above: Performed By: #### 5 0103 #### [facility] [address] [facility]. [address] ABS IMM GRANS 0.0 10*3/uL Normal 0.0-0.2 The [facility] Comment on above: Performed By: #### 5 0103 #### [facility] [address] [place] [address], [facility] ABS NEUTROPHILS 4.9 10*3/uL Normal 1.6-7.6 The [facility] Comment on above: Performed By: #### 5 0103 #### [facility] [address] [place] [address], [facility] Basophils/100 WBC (Bld) 1.0 % Normal 0.0-1.0 [facility] Comment on above: Performed By: #### 5 0103 #### [facility] [address] [facility] [place] [address], [facility] Eosinophils (Bld) [#/Vol] 0.2 10*3/uL Normal 0.0-0.5 [facility] Comment on above: Performed By: #### 5 0103 #### [facility] [address] [place] [address], [facility] [facility] Eosinophils/100 WBC (Bld) 3.0 % Normal 0.0-6.0 [facility] Comment on above: Performed By: #### 5 0103 #### [facility] [address] [facility] Erythrocyte distribution width (RBC) [Ratio] 13.3 % Normal 11.5-15.0 [facility] Comment on above: Performed By: #### 5 0103 #### [facility] [address] [facility] [address], [facility] Hematocrit (Bld) [Volume fraction] 36.9 % Normal 36.0-45.0 [facility] Comment on above: Performed By: #### 5 3 #### [facility] [address] [place] [address], [facility] Hemoglobin (Bld) [Mass/Vol] 12.2 g/dL Normal 12.0-15.0 [facility] Comment on above: Performed By: #### 5 0103 #### [facility] [address] [place] [address], [facility] IMMATURE GRANS 0.5 % Normal 0.0-1.0 The [facility] Comment on above: Performed By: #### 5 0103 #### [facility] [address] [place] [address], [facility] Lymphocytes (Bld) [#/Vol] 2.0 10*3/uL Normal 1.2-4.0 [facility] Comment on above: Performed By: #### 5 0103 #### [facility] [address] [facility] [place] [address], [facility] Lymphocytes/100 WBC (Bld) 25.3 % Normal 20.0-45.0 [facility] Comment on above: Performed By: #### 5 0103 #### [facility] [address] [facility] [place] [address], [facility] MCH (RBC) [Entitic mass] 31.4 pg Normal 27.0-33.0 [facility] Comment on above: Performed By: #### 5 0103 #### [facility] [address] [facility] [place] [address], [facility] MCHC (RBC) [Mass/Vol] 33.1 g/dL Normal 32.0-35.0 [facility] Comment on above: Performed By: #### 5 0103 #### [facility] [address] [place] [address], [facility] MCV (RBC) [Entitic vol] 95.1 fL Normal 82.0-98.0 [facility] Comment on above: Performed By: #### 5 3 #### [facility] [address] [place] [address], [facility] Monocytes (Bld) [#/Vol] 0.6 10*3/uL Normal 0.1-1.0 [facility] Comment on above: Performed By: #### 5 0103 #### [facility] [address] [facility] [place] [address], [facility] MONOS 7.3 % Normal 5.0-12.0 [facility] Comment on above: Performed By: #### 5 0103 #### [facility] [address] [place] [address], [facility] Neutrophils/100 WBC (Bld) 62.9 % Normal 40.0-72.0 [facility] Comment on above: Performed By: #### 5 0103 #### [facility] [address] [place] [address], [facility] Nucleated RBC/100 WBC (Bld) [Ratio] 0 % Normal 0-0 [facility] Comment on above: Performed By: #### 5 0103 #### [facility] [address] [place] [address], [facility] PLAT CNT 392 10*3/uL Normal 150-400 The [facility] Comment on above: Performed By: #### 5 0103 #### [facility] [address] [place] [address], [facility] RBC (Bld) [#/Vol] 3.88 10*6/uL Normal 3.80-5.00 The [facility] Comment on above: Performed By: #### 5 0103 #### [facility] [address] [place] [address], [facility] WBC (Bld) [#/Vol] 7.72 10*3/uL Normal 4.00-10.60 The [facility] Comment on above: Performed By: #### 5 3 #### [facility] [address] [place] [address], [facility] COMP METABOLIC PANELon 07-07 Albumin [Mass/Vol] 3.9 g/dL Normal 3.5-5.7 The [facility] Comment on above: Performed By: #### 0 0121 #### [facility] [address] [place] [address], [facility] ALKALINE PHOSPH 58 IU/L Normal 34-104 The [facility] Comment on above: Performed By: #### 0 0121 #### [facility] [address] [place] [address], [facility] ALT [Catalytic activity/Vol] 55 U/L High 7-52 [facility] Comment on above: Performed By: #### 0 0121 #### [facility] [address] [facility] [place] [address], [facility] AST [Catalytic activity/Vol] 39 U/L Normal 13-39 [facility] Comment on above: Performed By: #### 0 0121 #### [facility] [address] [facility] [place] [address], [place] Bilirubin [Mass/Vol] 0.4 mg/dL Normal 0.3-1.0 [facility] Comment on above: Performed By: #### 0 0121 #### [facility] [address] [facility] [place] [address], [place] Calcium [Mass/Vol] 9.0 mg/dL Normal 8.6-10.3 [facility] Comment on above: Performed By: #### 0 0121 #### [facility] [address] [place] [address], [place] Chloride [Moles/Vol] 104 mmol/L Normal 98-107 [facility] Comment on above: Performed By: #### 0 0121 #### [facility] [address] [place] [address], [place] CO2 [Moles/Vol] 25 mmol/L Normal 21-31 The [facility] Comment on above: Performed By: #### 0 0121 #### [facility] [address] [place] [address], [place] Creatinine [Mass/Vol] 0.81 mg/dL Normal 0.60-1.20 [facility] Comment on above: Performed By: #### 0 0121 #### [facility] [address] [place] [address], [place] GFR/1.73 sq M predicted among blacks MDRD (S/P/Bld) [Vol rate/Area] mL/min/{1.73_m2} Normal >60 [facility] Comment on above: Performed By: #### 0 0121 #### [facility] [address] [place] [address], [place] GFR/1.73 sq M predicted among non-blacks MDRD (S/P/Bld) [Vol rate/Area] mL/min/{1.73_m2} Normal >60 [facility] Comment on above: Performed By: #### 0 0121 #### [facility] [address] [place] [address], [place] Glucose [Mass/Vol] 112 mg/dL High 70-100 [facility] Comment on above: Performed By: #### 0 0121 #### [facility] [address] [place] [address], [place] Potassium [Moles/Vol] 3.5 mmol/L Normal 3.5-5.1 [facility] Comment on above: Performed By: #### 0 0121 #### [facility] [address] [place] [address], [place] Protein [Mass/Vol] 6.9 g/dL Normal 6.0-8.3 [facility] Comment on above: Performed By: #### 0 0121 #### [facility] [address] [place] [address], [place] Sodium [Moles/Vol] 134 mmol/L Low 136-145 [facility] Comment on above: Performed By: #### 0 0121 #### [address] Urea nitrogen [Mass/Vol] 10 mg/dL Normal 7-25 [facility] Comment on above: Performed By: #### 0 0121 #### [facility] [address] [place] [address], [facility] CT 3D LOWER EXTREMITY WO CON TRAST RIGHTon 07-07-2019 CT 3D LOWER EXTREMITY WO CONTRAST RIGHT [facility] Department of Radiology [address] [place] [id number] Patient Name: LINDA ALVARADO : 1975 Sex: F Age: Race: White Pt. Location: [facility] Patient Status: I Ordered Date: 07/07/2019 2:05:00 [...] findings. Electronically signed by:Ying Enriquez. Transcribed by: [email or web address], User Resident: JANET HARRINGTON Electronically Signed by: YING ENRIQUEZ @ 07/07/2019 07:01 AM I personally read this/these film(s) with this resident Normal [facility] Comment on above: Order Comment: R/O F ractures, right leg from mid femur down to ankle KNEE RIGHT 1 OR 2 [facility] KNEE RIGHT 1 OR 2 S [facility] Department of Radiology [address] [place] [id number] Patient Name: LINDA ALVARADO : 1975 Sex: F Age: Race: White Pt. Location: [id number] Patient Status: I Ordered Date: 07/07/2019 7:20:00 AM Completed Date: 07/07/2019 01:35 PM Requesting Provider: IAN KU Attending Provider: IAN KU Report Copy To: Signs & Symptoms: orif tibial plateau right, possible ex-fix History: orif tibial plateau right, possible ex-fix Comments: orif tibial plateau right, possible ex-fix Exam: KNEE RIGHT 1 OR 2 VWS KNEE RIGHT 1 OR 2 VWS 07/07/2019 1:35 PM EST SIGNS AND SYMPTOMS: orif tibial plateau right, possible ex-fix TECHNOLOGIST COMMENTS: Intra op right knee, ORIF tibial plateau, with Dr. Ku, 48 sec of fluoro used QUESTION FOR THE RADIOLOGIST: orif tibial plateau right, possible ex-fix PROTOCOL: AP(PA) and Lateral views were obtained. COMPARISON: None FINDINGS: Soft tissues: Bones: Joints: IMPRESSION: Documentation Electronically signed by:Ying Enriquez. Transcribed by: [email or web address], User Resident: Electronically Signed by: YING ENRIQUEZ @ 07/07/2019 01:40 PM Normal [facility] Comment on above: Order Comment: orif tibial plateau right, possible ex-fix Operative Reporton 9 Operative Report MR#: [id number] I [facility] Pt. Name: Linda Alvarado Room #: [id number] Discharge Date: Birthdate: 1975 OPERATIVE REPORT DATE [...] Cruz MD Date Trans: 07/07/2019 01:02 P/kelin [id number] cc: Elver Mendenhall M.D. 3 [facility] [address] Leslye Doss M.D. E R Physican...do Not Send [address] [facility] [place] [address] Normal [facility] POC GLUCOSE LABon 07-07-2019 Glucose [Mass/Vol] 92 mg/dL Normal 70-100 [facility] Comment on above: Performed By: #### 8 5499 #### [facility] [address] POC URINE PREGNANCYon 2018 Beta HCG ( test) Ql (U) Negative Normal NEGATIVE [facility] Comment on above: Result Comment: Perf ormed in Emergency Department. Performed By: #### 8 4140 #### [facility] [address] PROTHROMBIN TIMEon 9 INR Coag (PPP) [Relative time] 1.12 {INR} Normal 0.91-1.16 [facility] Comment on above: Result Comment: ACCC [...] CHEST 1995;108:[id number]-246S. Performed By: #### 5 6101, [address] #### [facility] [address] [facility] PT Coag (PPP) [Time] 14.5 s Normal 12.3-14.8 [facility] Comment on above: Result Comment: ALL RESULTS MUST BE INTERPRETED WITH RESPECT TO BLOOD DRAWING ARTIFACT OR DILUTION ERROR OF ANTICOAGULANT AT THE TIME OF SAMPLING. Performed By: #### 5 6101, 487[address] #### [facility] [address] [facility]. [address] RBC'S 2 UNITSon 07-07-2019 CROSSMATCH INTERP 1 COMP Normal [facility] Comment on above: Performed By: #### 8 6002 #### [facility] [address] CROSSMATCH INTERP 2 COMP Normal [facility] Comment on above: Performed By: #### 8 6002 #### [facility] [address] [facility]. [address] PRODUCT CODE 1 [id number] Normal The [facility] Comment on above: Performed By: #### 8 6002 #### [facility] [address] [facility]. [address] PRODUCT CODE 2 [id number] Normal [facility] Comment on above: Performed By: #### 8 6002 #### [facility] [address] [facility]. [address] PRODUCT STATUS 1 RE Normal [facility] Comment on above: Result Comment: Resu lt changed by IF on 07/11/2019 09:02. The previous value was XM. Performed By: #### 8 6002 #### [facility] [address] [facility]. [address] PRODUCT STATUS 2 RE Normal The [facility] Comment on above: Result Comment: Resu lt changed by IF on 07/11/2019 09:02. The previous value was XM. Performed By: #### 8 6002 #### [facility] [address] [place] [address], [facility] UNIT ABO 1 O Normal [facility] Comment on above: Performed By: #### 8 6002 #### [facility] [address] [place] [address], [facility] UNIT ABO 2 O Normal [facility] Comment on above: Performed By: #### 8 6002 #### [facility] [address] [facility]. [address] UNIT ID 1 [id number] Normal The [facility] Comment on above: Performed By: #### 8 6002 #### [facility] [address] [place] [address], [facility] UNIT ID 2 [id number] Normal The [facility] Comment on above: Performed By: #### 8 6002 #### [facility] [address] [place] [address], [facility] UNIT RH 1 Negative Normal [facility] Comment on above: Performed By: #### 8 6002 #### [facility] [address] [facility] [place] [address], [facility] UNIT RH 2 Negative Normal [facility] Comment on above: Performed By: #### 8 6002 #### [facility] [address] [place] [address], [facility] TYPE AND SCREENon 07-07-2019 ABO INTERPRETATION O Normal [facility] Comment on above: Performed By: #### 6 2586 #### [facility] [address] [place] [address], [facility] RH INTERPRETATION Negative Normal The [facility] Comment on above: Performed By: #### 6 2586 #### [facility] [address] [place] [address], [facility] XR KNEE RT 4V OR >on 019 XR KNEE RT 4V OR > Patient: LINDA ALVARADO Exam Date: 07/06/2019 : 1975 Gender:F Ordering : LISHA MANZANARES PA Admission #: [id number] Family : Order #: [id number] CLICK HERE TO VIEW EXAM RADIOLOGY REPORT [...] Proctor M.D. on 07/07/2019 at 07:26 Normal [facility] ECHOCARDIO M/2D COMPLETEon 1 ECHOCARDIO M/2D COMPLETE Patient: LINDA ALVARADO Exam Date: 06/08/2019 : 1975 Gender:F Ordering : DR GITA GARCIA PA Admission #: [id number] Family : Order #: [id number] CLICK HERE TO VIEW EXAM ECHOCARDIOGRAM REPORT [...] Area(A4C): 17.60 cm2 Left Atrium Systolic Volume(A2C): 29448 mm3 Left Atrium Systolic Volume(A4C): 62203 mm3 Mitral Valve MV E to A [...] M.D. on 06/09/2019 at 13:09 Normal The [facility] CBC AUTO DIFFon 05-23-2019 Basophils (Bld) [#/Vol] 0.1 103/ul Normal 0.0-0.1 [facility] Comment on above: Performed By: #### L IPA, CMP #### [facility] [address] [place] [address] Jose Gita Basophils/100 WBC (Bld) 1.4 % Normal 0.2-2.0 [facility] Comment on above: Performed By: #### L IPA, CMP #### [facility] [address] [place] [address] Jose Gita Eosinophils (Bld) [#/Vol] 0.3 103/ul Normal 0.0-0.7 [facility] Comment on above: Performed By: #### L IPA, CMP #### [facility] [address] [place] [address] Jose Gita Eosinophils/100 WBC (Bld) 2.9 % Normal 0.9-7.0 [facility] Comment on above: Performed By: #### L IPA, CMP #### [facility] [address] [place] [address] Jose Gita Erythrocyte distribution width (RBC) [Ratio] 13.5 % Normal 11.0-15.0 [facility] Comment on above: Performed By: #### L IPA, CMP #### [facility] [address] [place] [address] Jose Gita Hematocrit (Bld) [Volume fraction] 37.3 % Normal 36.0-48.0 [facility] Comment on above: Performed By: #### L IPA, CMP #### [facility] [address] [place], [place] [address] Jose Gita Hemoglobin (Bld) [Mass/Vol] 12.5 g/dL Normal 12.0-16.0 [facility] Comment on above: Performed By: #### L IPA, CMP #### [facility] [address] [place] [address] Jose Gita IG # 0.05 10e3/ul Critically high 0.00-0.03 [facility] Comment on above: Performed By: #### L IPA, CMP #### [facility] [address] [place] [address] Jose Gita IG % 0.6 % Critically high 0.0-0.5 The [facility] Comment on above: Performed By: #### L IPA, CMP #### [facility] [address] [place] [address] Jose Gita Lymphocytes (Bld) [#/Vol] 2.4 103/ul Normal 1.2-3.8 [facility] Comment on above: Performed By: #### L IPA, CMP #### [facility] [address] [place] [address] Jose Gita Lymphocytes/100 WBC (Bld) 27.2 % Normal 20.5-60.0 [facility] Comment on above: Performed By: #### L IPA, CMP #### [facility] [address] [place] [address] Jose Gita MANUAL DIFF REQ NO Normal The [facility] Comment on above: Performed By: #### L IPA, CMP #### [facility] [address] [place] [address] Jose Gita MCH (RBC) [Entitic mass] 32.1 pg Normal 26.7-34.0 [facility] Comment on above: Performed By: #### L IPA, CMP #### [facility] [address] [place] [address] Jose Gita MCHC (RBC) [Mass/Vol] 33.5 g/dL Normal 29.9-35.2 [facility] Comment on above: Performed By: #### L IPA, CMP #### [facility] [address] [place] [address] Jose Gita MCV (RBC) [Entitic vol] 95.6 fL Normal 81.0-99.0 [facility] Comment on above: Performed By: #### L IPA, CMP #### [facility] [address] [place], [place] [address] Jose Gita Monocytes (Bld) [#/Vol] 0.8 103/ul Normal 0.3-0.8 The [facility] Comment on above: Performed By: #### L IPA, CMP #### [facility] [address] [place] [address] Jose Gita Monocytes/100 WBC (Bld) 8.7 % Normal 1.7-12.0 [facility] Comment on above: Performed By: #### L IPA, CMP #### [facility] [address] [place], [place] [address] Jose Gita Neutrophils (Bld) [#/Vol] 5.2 103/ul Normal 1.4-6.5 The [facility] Comment on above: Performed By: #### L IPA, CMP #### [facility] [address] [place], [place] [address] Jose Gita Neutrophils/100 WBC (Bld) 59.2 % Normal 43.0-75.0 [facility] Comment on above: Performed By: #### L IPA, CMP #### [facility] [address] [place] [address] Jose Gita Platelet mean volume (Bld) [Entitic vol] 8.8 fL Critically low 9.5-13.5 [facility] Comment on above: Performed By: #### L IPA, CMP #### [facility] [address] [place] [address] Jose Gita Platelets (Bld) [#/Vol] 401 103/ul Normal 150-450 [facility] Comment on above: Performed By: #### L IPA, CMP #### [facility] [address] [place] [address] Jose Gita RBC (Bld) [#/Vol] 3.90 106/ul Critically low 4.20-5.40 [facility] Comment on above: Performed By: #### L IPA, CMP #### [facility] [address] [place] [address] Jose Gita WBC (Bld) [#/Vol] 8.7 103/ul Normal 4.0-11.0 The [facility] Comment on above: Performed By: #### L IPA, CMP #### [facility] [address] [place], [place] [address] Jose Pelayo D-DIMERon 05-23-2019 D-DIMER COMMENTS SEE BELOW Normal [facility] Comment on above: Result Comment: Incr eases [...] Performed By: #### L IPA, CMP #### [facility] [address] [place], [place] [address] Josetripp Pelayo Fibrin D-dimer FEU IA (Bld) [Mass/Vol] 0.19 ug/mL Normal 0.19-0.50 [facility] Comment on above: Performed By: #### L IPA, CMP #### [facility] [address] [place], [place] [address] Josetripp Pelayo PREG HCG QUALon 05-23-2019 , QUAL Negative Normal NEGATIVE [facility] Comment on above: Performed By: #### L IPA, CMP #### [facility] [address] [place], [place] [address] Jose Pelayo PROF CHEM 8 (BAS METB)on Anion gap [Moles/Vol] 10.9 mmol/L Normal [facility] Comment on above: Performed By: #### L IPA, CMP #### [facility] [address] [place], [place] [address] Jose Pelayo Calcium [Mass/Vol] 9.3 mg/dL Normal 8.4-10.2 [facility] Comment on above: Performed By: #### L IPA, CMP #### [facility] [address] [place], [place] [address] Josetripp Pelayo Chloride [Moles/Vol] 104 mmol/L Normal 98-107 [facility] Comment on above: Performed By: #### L IPA, CMP #### [facility] [address] [place] [id number] Jose Gita CO2 [Moles/Vol] 28.7 mmol/L Normal 22.0-30.0 [facility] Comment on above: Performed By: #### L IPA, CMP #### [facility] [address] [place] [id number] Jose Gita Creatinine [Mass/Vol] 0.91 mg/dL Normal 0.52-1.04 [facility] Comment on above: Performed By: #### L IPA, CMP #### [facility] [address] [place] [address] Jose Gita EGFR-AF SWAZI >60 Normal >=60 [facility] Comment on above: Performed By: #### L IPA, CMP #### [facility] [address] [place] [address] Jose Gita EGFR-NON AF SWAZI >60 Normal >=60 [facility] Comment on above: Performed By: #### L IPA, CMP #### [facility] [address] [place] [address] Jose Gita Glucose [Mass/Vol] 97 mg/dL Normal 74-106 [facility] Comment on above: Performed By: #### L IPA, CMP #### [facility] [address] [place] [address] Jose Gita Potassium [Moles/Vol] 3.6 mmol/L Normal 3.4-5.0 [facility] Comment on above: Performed By: #### L IPA, CMP #### [facility] [address] [place] [address] Jose Gita Sodium [Moles/Vol] 140 mmol/L Normal 137-145 [facility] Comment on above: Performed By: #### L IPA, CMP #### [facility] [address] [place] [address] Jose Gita Urea nitrogen [Mass/Vol] 10.0 mg/dL Normal 7.0-17.0 [facility] Comment on above: Performed By: #### L IPA, CMP #### [facility] [address] [place], [place] [address] Jose Gita Urea nitrogen/Creatinine [Mass ratio] 11.0 mg/mg Normal [facility] Comment on above: Performed By: #### L IPA, CMP #### [facility] [facility] [address] [place] [id number] Jose Gita PROTIMEon 05-23-2019 INR Coag (PPP) [Relative time] 1.03 {INR} Normal [facility] Comment on above: Performed By: #### L IPA, CMP #### [facility] [address] [place] [id number] Jose Gita PT Coag (PPP) [Time] SEE BELOW Normal [facility] Comment on above: Result Comment: SELENE RED INR: 2.0 - 3.0 CONDITIONS NOT LISTED BELOW 2.5 - 3.5 FOR PROSTHETIC HEART VALVE REPLACEMENT 2.5 - 3.5 RECURRENT THROMBOSIS Performed By: #### L IPA, CMP #### [facility] [address] [place], [place] [phone] Jose Gita PT Coag (PPP) [Time] PLEASE NOTE: NORMAL RANGE CHANGE 05-20-2014 DUE TO REAGENT LOT CHANGE [facility] Comment on above: Performed By: #### L IPA, CMP #### [facility] [address] [place] [address] 36592 Jose Gita PT Coag (PPP) [Time] 10.7 s Normal 9.0-11.6 [facility] Comment on above: Performed By: #### L IPA, CMP #### [facility] [address] [place] [address] Jose Gita PTTon 05-23-2019 aPTT Coag (Bld) [Time] 27.8 s Normal 22.3-36.2 [facility] Comment on above: Performed By: #### L IPA, CMP #### [facility] [address] [place] [address] 058[address] Jose Gita aPTT Coag (Bld) [Time] PLEASE NOTE: NORMAL RANGE CHANGE 07-27-2015 DUE TO REAGENT LOT CHANGE Normal [facility] Comment on above: Performed By: #### L IPA, CMP #### [facility] [address] [place], [place] [id number] Jose Gita CBC AUTO DIFFon 12-28-2018 Basophils (Bld) [#/Vol] 0.1 103/ul Normal 0.0-0.1 [facility] Comment on above: Performed By: #### C BC #### [facility] [address] [place], [place] [address] Jose Gita Basophils/100 WBC (Bld) 1.2 % Normal 0.2-2.0 [facility] Comment on above: Performed By: #### C BC #### [facility] [address] [place], [place] [address] Jose Gita Eosinophils (Bld) [#/Vol] 0.2 103/ul Normal 0.0-0.7 [facility] Comment on above: Performed By: #### C BC #### [facility] [address] [place] [address] Jose Gita Eosinophils/100 WBC (Bld) 5.9 % Normal 0.9-7.0 [facility] Comment on above: Performed By: #### C BC #### [facility] [address] [place] [address] Jose Gita Erythrocyte distribution width (RBC) [Ratio] 13.7 % Normal 11.0-15.0 [facility] Comment on above: Performed By: #### C BC #### [facility] [address] [place] [address] Jose Gita Hematocrit (Bld) [Volume fraction] 36.3 % Normal 36.0-48.0 [facility] Comment on above: Performed By: #### C BC #### [facility] [address] [place], [place] [address] Jose Gita Hemoglobin (Bld) [Mass/Vol] 12.1 g/dL Normal 12.0-16.0 [facility] Comment on above: Performed By: #### C BC #### [facility] [address] [place] [address] Jose Gita IG # 0.01 10e3/ul Normal 0.00-0.03 [facility] Comment on above: Performed By: #### C BC #### [facility] [address] [place], [place] [address] Jose Gita IG % 0.2 % Normal 0.0-0.5 [facility] Comment on above: Performed By: #### C BC #### [facility] [address] [place], [place] [address] Jose Gita Lymphocytes (Bld) [#/Vol] 1.2 103/ul Normal 1.2-3.8 [facility] Comment on above: Performed By: #### C BC #### [facility] [address] [place], [place] [address] Jose Gita Lymphocytes/100 WBC (Bld) 30.3 % Normal 20.5-60.0 [facility] Comment on above: Performed By: #### C BC #### [facility] [address] [place], [place] [phone] Jose Gita MANUAL DIFF REQ NO Normal [facility] Comment on above: Performed By: #### C BC #### [facility] [address] [place], [place] [address] Jose Gita MCH (RBC) [Entitic mass] 32.2 pg Normal 26.7-34.0 [facility] Comment on above: Performed By: #### C BC #### [facility] [address] [place], [place] [address] Josetripp Cabanen MCHC (RBC) [Mass/Vol] 33.3 g/dL Normal 29.9-35.2 [facility] Comment on above: Performed By: #### C BC #### [facility] [address] [place], [place] [address] Jose Gita MCV (RBC) [Entitic vol] 96.5 fL Normal 81.0-99.0 [facility] Comment on above: Performed By: #### C BC #### [facility] [address] [place], [place] [address] Jose Gita Monocytes (Bld) [#/Vol] 0.4 103/ul Normal 0.3-0.8 [facility] Comment on above: Performed By: #### C BC #### [facility] [address] [place], [place] [address] Jose Gita Monocytes/100 WBC (Bld) 9.4 % Normal 1.7-12.0 [facility] Comment on above: Performed By: #### C BC #### [facility] [address] [place], [place] [address] Jose Gita Neutrophils (Bld) [#/Vol] 2.2 103/ul Normal 1.4-6.5 [facility] Comment on above: Performed By: #### C BC #### [facility] [address] [place] [address] 214[address] Jose Gita Neutrophils/100 WBC (Bld) 53.0 % Normal 43.0-75.0 [facility] Comment on above: Performed By: #### C BC #### [facility] [address] [place], [place] [address] Josetripp Cabanen Platelet mean volume (Bld) [Entitic vol] 8.6 fL Critically low 9.5-13.5 [facility] Comment on above: Performed By: #### C BC #### [facility] [address] [place] [address] 33183 Jose Gita Platelets (Bld) [#/Vol] 279 103/ul Normal 150-450 [facility] Comment on above: Performed By: #### C BC #### [facility] [address] [place] [address] [phone] Jose Gita RBC (Bld) [#/Vol] 3.76 106/ul Critically low 4.20-5.40 [facility] Comment on above: Performed By: #### C BC #### [facility] [address] [place] [address] 95287 Jose Gita WBC (Bld) [#/Vol] 4.1 103/ul Normal 4.0-11.0 [facility] Comment on above: Performed By: #### C BC #### [facility] [address] [place] [address] 71788 Jose Pelayo PROF CHEM 8 (BAS METB)on Anion gap [Moles/Vol] 10.6 mmol/L Normal [facility] Comment on above: Performed By: #### B MP #### [facility] [address] [place] [address] Jose Gita Calcium [Mass/Vol] 8.1 mg/dL Critically low 8.4-10.2 Th e [facility] Comment on above: Performed By: #### B MP #### [facility] [address] [place] [address] Jose Gita Chloride [Moles/Vol] 111 mmol/L Critically high 98-107 [facility] Comment on above: Performed By: #### B MP #### [facility] [address] [place] [address] Jose Gita CO2 [Moles/Vol] 24.7 mmol/L Normal 22.0-30.0 [facility] Comment on above: Performed By: #### B MP #### [facility] [address] [place] [address] Jose Gita Creatinine [Mass/Vol] 0.80 mg/dL Normal 0.52-1.04 [facility] Comment on above: Performed By: #### B MP #### [facility] [address] [place] [address] Jose Gita EGFR-AF SWAZI >60 Normal >=60 [facility] Comment on above: Performed By: #### B MP #### [facility] [address] [place] [address] Jose Gita EGFR-NON AF SWAZI >60 Normal >=60 [facility] Comment on above: Performed By: #### B MP #### [facility] [address] [place] [address] Jose Gita Glucose [Mass/Vol] 93 mg/dL Normal 74-106 [facility] Comment on above: Performed By: #### B MP #### [facility] [address] [place] [address] Jose Gita Potassium [Moles/Vol] 4.3 mmol/L Normal 3.4-5.0 [facility] Comment on above: Performed By: #### B MP #### [facility] [address] [place], [place] [address] Jose Gita Sodium [Moles/Vol] 142 mmol/L Normal 137-145 [facility] Comment on above: Performed By: #### B MP #### [facility] [address] [place], [place] [address] Jose Gita Urea nitrogen [Mass/Vol] 6.0 mg/dL Critically low 7.0-17.0 [facility] Comment on above: Performed By: #### B MP #### [facility] [address] [place] [address] 57656 Jose Gita Urea nitrogen/Creatinine [Mass ratio] 7.5 mg/mg Normal [facility] Comment on above: Performed By: #### B MP #### [facility] [address] [place] [address] 59886 Jose Gita CBC AUTO DIFFon 12-27-2018 Basophils (Bld) [#/Vol] 0.0 103/ul Normal 0.0-0.1 [facility] Comment on above: Performed By: #### C BC #### [facility] [address] [place] [address] 36249 Jose Gita Basophils/100 WBC (Bld) 0.4 % Normal 0.2-2.0 [facility] Comment on above: Performed By: #### C BC #### [facility] [address] [place] [address]990 Jose Gita Eosinophils (Bld) [#/Vol] 0.1 103/ul Normal 0.0-0.7 [facility] Comment on above: Performed By: #### C BC #### [facility] [address] [place] [address] 45786 Jose Gita Eosinophils/100 WBC (Bld) 1.3 % Normal 0.9-7.0 [facility] Comment on above: Performed By: #### C BC #### [facility] [address] [place] [address] 65392 Jose Gita Erythrocyte distribution width (RBC) [Ratio] 13.4 % Normal 11.0-15.0 [facility] Comment on above: Performed By: #### C BC #### [facility] [address] [place], [place] [address] Jose Gita Hematocrit (Bld) [Volume fraction] 37.0 % Normal 36.0-48.0 [facility] Comment on above: Performed By: #### C BC #### [facility] [address] [place], [place] [address] Jose Gita Hemoglobin (Bld) [Mass/Vol] 12.9 g/dL Normal 12.0-16.0 [facility] Comment on above: Result Comment: repe ated slide reviewed ts Performed By: #### C BC #### [facility] [address] [place] [address] Jose Gita IG # 0.02 10e3/ul Normal 0.00-0.03 [facility] Comment on above: Performed By: #### C BC #### [facility] [address] [place] [address] Jose Gita IG % 0.3 % Normal 0.0-0.5 [facility] Comment on above: Performed By: #### C BC #### [facility] [address] [place], [place] [address] Jose Gita Lymphocytes (Bld) [#/Vol] 0.7 103/ul Critically low 1.2-3.8 [facility] Comment on above: Performed By: #### C BC #### [facility] [address] [place] [address] Jose Gita Lymphocytes/100 WBC (Bld) 9.2 % Critically low 20.5-60.0 [facility] Comment on above: Performed By: #### C BC #### [facility] [address] [place], [place] [address] Josetripp Pelayo MANUAL DIFF REQ NO Normal [facility] Comment on above: Performed By: #### C BC #### [facility] [address] [place], [place] [address] Josetripp Cabanen MCH (RBC) [Entitic mass] 32.4 pg Normal 26.7-34.0 [facility] Comment on above: Performed By: #### C BC #### [facility] [address] [place], [place] [address] Josetripp Cabanen MCHC (RBC) [Mass/Vol] 34.9 g/dL Normal 29.9-35.2 [facility] Comment on above: Performed By: #### C BC #### [facility] [address] [place], [place] [address] Jose Gita MCV (RBC) [Entitic vol] 93.0 fL Normal 81.0-99.0 [facility] Comment on above: Performed By: #### C BC #### [facility] [address] [place], [place] [address] Jose Gita Monocytes (Bld) [#/Vol] 0.3 103/ul Normal 0.3-0.8 [facility] Comment on above: Performed By: #### C BC #### [facility] [address] [place], [place] [address] Jose Gita Monocytes/100 WBC (Bld) 3.6 % Normal 1.7-12.0 [facility] Comment on above: Performed By: #### C BC #### [facility] [address] [place] [address] Jose Gita Neutrophils (Bld) [#/Vol] 6.4 103/ul Normal 1.4-6.5 [facility] Comment on above: Performed By: #### C BC #### [facility] [address] [place], [place] [address] Jose Gita Neutrophils/100 WBC (Bld) 85.2 % Critically high 43.0-75.0 [facility] Comment on above: Performed By: #### C BC #### [facility] [address] [place], [place] [address] Jose Gita Platelet mean volume (Bld) [Entitic vol] 8.7 fL Critically low 9.5-13.5 [facility] Comment on above: Performed By: #### C BC #### [facility] [address] [place], [place] [address] Jose Gita Platelets (Bld) [#/Vol] 401 103/ul Normal 150-450 [facility] Comment on above: Performed By: #### C BC #### [facility] [address] [place], [place] [address] Jose Pelayo RBC (Bld) [#/Vol] 3.98 106/ul Critically low 4.20-5.40 [facility] Comment on above: Performed By: #### C BC #### [facility] [address] [place], [place] [address] Josetripp Pelayo WBC (Bld) [#/Vol] 7.5 103/ul Normal 4.0-11.0 [facility] Comment on above: Performed By: #### C BC #### [facility] [address] [place], [place] [address] Jose Pelayo POTASSIUMon 12-27-2018 Potassium [Moles/Vol] 3.9 mmol/L Normal 3.4-5.0 [facility] Comment on above: Performed By: #### K #### [facility] [address] [place], [place] [address] Jose Pelayo PROF 14(COMP METB)on 019 Albumin [Mass/Vol] 3.2 g/dL Critically low 3.5-5.0 [facility] Comment on above: Performed By: #### C MP #### [facility] [address] [place], [place] [address] Jose Pelayo Albumin/Globulin [Mass ratio] 1.1 {ratio} Normal [facility] Comment on above: Performed By: #### C MP #### [facility] [address] [place], [place] [address] Jose Pelayo ALP [Catalytic activity/Vol] 50 U/L Normal 38-126 [facility] Comment on above: Performed By: #### C MP #### [facility] [address] [place], [place] [address] Jose Gita ALT [Catalytic activity/Vol] 60 U/L Critically high 9-52 [facility] Comment on above: Performed By: #### C MP #### [facility] [address] [place], [place] [address] Jose Gita Anion gap [Moles/Vol] 8.7 mmol/L Normal [facility] Comment on above: Performed By: #### C MP #### [facility] [address] [place], [place] [address] Josetripp Cabanen AST [Catalytic activity/Vol] 41 U/L Critically high 14-36 [facility] Comment on above: Performed By: #### C MP #### [facility] [address] [place], [place] [address] Jose Gita Bilirubin Ql (U) 0.5 mg/dL Normal 0.2-1.3 [facility] Comment on above: Performed By: #### C MP #### [facility] [address] [place], [place] [address] Jose Gita Calcium [Mass/Vol] 7.7 mg/dL Critically low 8.4-10.2 Th [facility] Comment on above: Performed By: #### C MP #### [facility] [address] [place] [address] Jose Gita Chloride [Moles/Vol] 107 mmol/L Normal 98-107 [facility] Comment on above: Performed By: #### C MP #### [facility] [address] [place], [place] [address] Jose Gita CO2 [Moles/Vol] 27.1 mmol/L Normal 22.0-30.0 [facility] Comment on above: Performed By: #### C MP #### [facility] [address] [place], [place] [address] Jose Gita Creatinine [Mass/Vol] 0.93 mg/dL Normal 0.52-1.04 [facility] Comment on above: Performed By: #### C MP #### [facility] [address] [place], [place] [address] Jose Gita EGFR-AF SWAZI >60 Normal >=60 [facility] Comment on above: Performed By: #### C MP #### [facility] [address] [place], [place] [address] Jose Gita EGFR-NON AF SWAZI >60 Normal >=60 [facility] Comment on above: Performed By: #### C MP #### [facility] [address] [place] [id number] Jose Gita Globulin (S) [Mass/Vol] 3.0 g/dL Normal [facility] Comment on above: Performed By: #### C MP #### [facility] [address] [place] [id number] Jose Gita Glucose [Mass/Vol] 114 mg/dL Critically high 74-106 [facility] Comment on above: Performed By: #### C MP #### [facility] [address] [place] [id number] Jose Gita Potassium [Moles/Vol] 2.8 mmol/L Critically low 3.4-5.0 [facility] Comment on above: Result Comment: test repeated critical value verified Performed By: #### C MP #### [facility] [address] [place] [address] Jose Gita Protein [Mass/Vol] 6.2 g/dL Normal 6.1-8.2 [facility] Comment on above: Performed By: #### C MP #### [facility] [address] [place], [place] [address] Jose Gita Sodium [Moles/Vol] 141 mmol/L Normal 137-145 [facility] Comment on above: Performed By: #### C MP #### [facility] [address] [place], [place] [address] Jose Gita Urea nitrogen [Mass/Vol] 16.0 mg/dL Normal 7.0-17.0 [facility] Comment on above: Performed By: #### C MP #### [facility] [address] [place] [address] Jose Gita Urea nitrogen/Creatinine [Mass ratio] 17.2 mg/mg Normal [facility] Comment on above: Performed By: #### C MP #### [facility] [address] [place], [place] [address] Jose Gita XR ABD FLAT UP/PA Natalya 12-27 XR ABD FLAT UP/PA [facility] Patient: LINDA ALVARADO Exam Date: 12/26/2018 : 1975 Gender:F Ordering : DR. NICHOLAS BOLTON . Admission #: [id number] Family : Order #: [id number] CLICK HERE TO VIEW EXAM RADIOLOGY REPORT [...] indeterminate bowel gas pattern Dictated by: Jane Naqvi M.D. on 12/27/2018 at 07:35 Approved by: Jane Naqvi M.D. on 12/27/2018 at 07:37 Normal [facility] CBC AUTO DIFFon 12-26-2018 Basophils (Bld) [#/Vol] 0.1 103/ul Normal 0.0-0.1 [facility] Comment on above: Performed By: #### C BC #### [facility] [address] [place] [address] Jose Gita Basophils/100 WBC (Bld) 0.7 % Normal 0.2-2.0 [facility] Comment on above: Performed By: #### C BC #### [facility] [address] [place] [address] Jose Gita Eosinophils (Bld) [#/Vol] 0.3 103/ul Normal 0.0-0.7 [facility] Comment on above: Performed By: #### C BC #### [facility] [address] [place], [place] [address] Jose Gita Eosinophils/100 WBC (Bld) 2.2 % Normal 0.9-7.0 [facility] Comment on above: Performed By: #### C BC #### [facility] [address] [place] [address] Jose Gita Erythrocyte distribution width (RBC) [Ratio] 13.5 % Normal 11.0-15.0 [facility] Comment on above: Performed By: #### C BC #### [facility] [address] [phone] Jose Gita Hematocrit (Bld) [Volume fraction] 46.0 % Normal 36.0-48.0 [facility] Comment on above: Performed By: #### C BC #### [facility] [address] [phone] Jose Gita Hemoglobin (Bld) [Mass/Vol] 15.7 g/dL Normal 12.0-16.0 [facility] Comment on above: Performed By: #### C BC #### [facility] [address] [place] [address] Jose Gita IG # 0.05 10e3/ul Critically high 0.00-0.03 [facility] Comment on above: Performed By: #### C BC #### [facility] [address] [place] [address] Jose Gita IG % 0.4 % Normal 0.0-0.5 [facility] Comment on above: Performed By: #### C BC #### [facility] [address] [place] [address] Jose Gita Lymphocytes (Bld) [#/Vol] 1.0 103/ul Critically low 1.2-3.8 [facility] Comment on above: Performed By: #### C BC #### [facility] [address] [place], [place] [address] Jose Gita Lymphocytes/100 WBC (Bld) 8.8 % Critically low 20.5-60.0 [facility] Comment on above: Performed By: #### C BC #### [facility] [address] [place], [place] [address] Jose Gita MANUAL DIFF REQ NO Normal [facility] Comment on above: Performed By: #### C BC #### [facility] [address] [place], [place] [address] Jose Gita MCH (RBC) [Entitic mass] 31.7 pg Normal 26.7-34.0 [facility] [facility] Comment on above: Performed By: #### C BC #### [facility] [address] [place], [place] [address] Jose Gita MCHC (RBC) [Mass/Vol] 34.1 g/dL Normal 29.9-35.2 [facility] Comment on above: Performed By: #### C BC #### [facility] [address] [place], [place] [address] Jose Gita MCV (RBC) [Entitic vol] 92.9 fL Normal 81.0-99.0 [facility] Comment on above: Performed By: #### C BC #### [facility] [address] [place] [id number] Jose Gita Monocytes (Bld) [#/Vol] 0.3 103/ul Normal 0.3-0.8 [facility] Comment on above: Performed By: #### C BC #### [facility] [address] [place] [phone] Jose Gita Monocytes/100 WBC (Bld) 2.8 % Normal 1.7-12.0 [facility] Comment on above: Performed By: #### C BC #### [facility] [address] [place] [phone] Jose Gita Neutrophils (Bld) [#/Vol] 9.8 103/ul Critically high 1.4-6.5 [facility] Comment on above: Performed By: #### C BC #### [facility] [address] [place] [address] Jose Gita Neutrophils/100 WBC (Bld) 85.1 % Critically high 43.0-75.0 [facility] Comment on above: Performed By: #### C BC #### [facility] [address] [place] [address] Jose Gita Platelet mean volume (Bld) [Entitic vol] 8.6 fL Critically low 9.5-13.5 [facility] Comment on above: Performed By: #### C BC #### [facility] [address] [place] [phone] Jose Gita Platelets (Bld) [#/Vol] 543 103/ul Critically high 150-450 [facility] Comment on above: Performed By: #### C BC #### [facility] [address] [place] [address] Josetripp Pelayo RBC (Bld) [#/Vol] 4.95 106/ul Normal 4.20-5.40 [facility] Comment on above: Performed By: #### C BC #### [facility] [address] [place], [place] [phone] Josetripp Pelayo WBC (Bld) [#/Vol] 11.5 103/ul Critically high 4.0-11.0 [facility] Comment on above: Performed By: #### C BC #### [facility] [address] [place], [place] [phone] Jose Cabanen LIPASEon 12-26-2018 Lipase [Catalytic activity/Vol] 186.0 U/L Normal 23.0-300.0 [facility] Comment on above: Performed By: #### L IPA, CMP #### [facility] [address] [place], [place] [phone] Jose Pelayo PROF 14(COMP METB)on 019 Albumin [Mass/Vol] 4.5 g/dL Normal 3.5-5.0 [facility] Comment on above: Performed By: #### L IPA, CMP #### [facility] [address] [place], [place] [phone] Josetripp Pelayo Albumin/Globulin [Mass ratio] 1.2 {ratio} Normal [facility] Comment on above: Performed By: #### L IPA, CMP #### [facility] [address] [place], [place] [phone] Jose Gita ALP [Catalytic activity/Vol] 65 U/L Normal 38-126 [facility] Comment on above: Performed By: #### L IPA, CMP #### [facility] [address] [place], [place] [phone] Jose Gita ALT [Catalytic activity/Vol] 75 U/L Critically high 9-52 [facility] Comment on above: Performed By: #### L IPA, CMP #### [facility] [address] [place], [place] [phone] Jose Gita Anion gap [Moles/Vol] 10.7 mmol/L Normal [facility] Comment on above: Performed By: #### L IPA, CMP #### [facility] [address] [place] [address] Jose Gita AST [Catalytic activity/Vol] 51 U/L Critically high 14-36 [facility] Comment on above: Performed By: #### L IPA, CMP #### [facility] [address] [place] [address] Jose Gita Bilirubin Ql (U) 0.6 mg/dL Normal 0.2-1.3 [facility] Comment on above: Performed By: #### L IPA, CMP #### [facility] [address] [place] [address] Jose Gita Calcium [Mass/Vol] 9.3 mg/dL Normal 8.4-10.2 [facility] Comment on above: Performed By: #### L IPA, CMP #### [facility] [address] [place] [address] Jose Gita Chloride [Moles/Vol] 103 mmol/L Normal 98-107 [facility] Comment on above: Performed By: #### L IPA, CMP #### [facility] [address] [place] [address] Jose Gita CO2 [Moles/Vol] 28.8 mmol/L Normal 22.0-30.0 [facility] Comment on above: Performed By: #### L IPA, CMP #### [facility] [address] [place] [address] Jose Gita Creatinine [Mass/Vol] 1.03 mg/dL Normal 0.52-1.04 [facility] Comment on above: Performed By: #### L IPA, CMP #### [facility] [address] [place], [place] [phone] Jose Gita EGFR-AF SWAZI >60 Normal >=60 [facility] Comment on above: Performed By: #### L IPA, CMP #### [facility] [address] [place] [address] Jose Gita EGFR-NON AF SWAZI 59 mL/min/1.73m2 Critically low >=60 [facility] Comment on above: Performed By: #### L IPA, CMP #### [facility] [address] [place] [id number] Jose Gita Globulin (S) [Mass/Vol] 3.7 g/dL Normal [facility] Comment on above: Performed By: #### L IPA, CMP #### [facility] [address] [place] [id number] Jose Gita Glucose [Mass/Vol] 114 mg/dL Critically high 74-106 [facility] Comment on above: Performed By: #### L IPA, CMP #### [facility] [address] [place] [id number] Jose Gita Potassium [Moles/Vol] 3.5 mmol/L Normal 3.4-5.0 [facility] Comment on above: Performed By: #### L IPA, CMP #### [facility] [address] [place] [id number] Jose Gita Protein [Mass/Vol] 8.2 g/dL Normal 6.1-8.2 [facility] Comment on above: Performed By: #### L IPA, CMP #### [facility] [address] [place] [id number] Jose Gita Sodium [Moles/Vol] 139 mmol/L Normal 137-145 [facility] Comment on above: Performed By: #### L IPA, CMP #### [facility] [address] [place] [id number] Jose Gita Urea nitrogen [Mass/Vol] 15.0 mg/dL Normal 7.0-17.0 [facility] Comment on above: Performed By: #### L IPA, CMP #### [facility] [address] [place] [id number] Joes Gita Urea nitrogen/Creatinine [Mass ratio] 14.6 mg/mg Normal [facility] Comment on above: Performed By: #### L IPA, CMP #### [facility] [address] [place] [id number] Jose Gita Vital Signs Date Time Vital Sign Value Performing Clinician Facility 07-16-2024 15:50-0500 Body height 151.77 cm Elver Mendenhall II Work Phone: [facility] 07-16-2024 15:50-0500 Body mass index (BMI) [Ratio] 37.6 kg/m2 Elver Mendenhall II Work Phone: [facility] 07-16-2024 15:50-0500 Body weight 86.63 kg Elver Mendenhall II Work Phone: [facility] 07-16-2024 15:50-0500 Diastolic blood pressure 86 mm[Hg] Elver Mendenhall II Work Phone: [facility] 07-16-2024 15:50-0500 Heart rate 97 /min Elver Mendenhall II Work Phone: [facility] 07-16-2024 15:50-0500 SaO2% (BldA) [Mass fraction] 96 % Elver Mendenhall II Work Phone: [facility] 07-16-2024 15:50-0500 Systolic blood pressure 156 mm[Hg] Elver Mendenhall II Work Phone: [facility] 07-02-2024 15:34-0400 Body height 152.4 cm Trever Barnard DPM Work Phone: [facility] 07-02-2024 15:34-0400 Body mass index (BMI) [Ratio] 38.28 kg/m2 Trever Barnard DPM Work Phone: [facility] 07-02-2024 15:34-0400 Body weight 88.91 kg Trever Barnard DPM Work Phone: [facility] 07-02-2024 15:34-0400 Diastolic blood pressure 77 mm[Hg] Trever Barnard DPM Work Phone: [facility] 07-02-2024 15:34-0400 Heart rate 81 /min Trever Barnard DPM Work Phone: [facility] 07-02-2024 15:34-0400 Systolic blood pressure 124 mm[Hg] Trever Barnard DPM Work Phone: [facility] 06-03-2024 15:39-0400 Body height 152.4 cm Gita Hemmer PA Work Phone: [facility] 06-03-2024 15:39-0400 Body mass index (BMI) [Ratio] 38.28 kg/m2 Gita Hemmer PA Work Phone: [facility] 06-03-2024 15:39-0400 Body weight 88.91 kg Gita Hemmer PA Work Phone: [facility] 06-03-2024 15:39-0400 Diastolic blood pressure 64 mm[Hg] Gita Hemmer PA Work Phone: [facility] 06-03-2024 15:39-0400 Heart rate 85 /min Gita Hemmer PA Work Phone: [facility] 06-03-2024 15:39-0400 Respiratory rate 17 /min Gita Hemmer PA Work Phone: [facility] 06-03-2024 15:39-0400 SaO2% (BldA) [Mass fraction] 98 % Gita Hemmer PA Work Phone: [facility] 06-03-2024 15:39-0400 Systolic blood pressure 128 mm[Hg] Gita Hemmer PA Work Phone: [facility] 01-30-2024 09:26-0400 Body height 152.4 cm [facility] 01-30-2024 09:26-0400 Body mass index (BMI) [Ratio] 38.7 kg/m2 [facility] 01-30-2024 09:26-0400 Body weight 89.81 kg [facility] 01-30-2024 09:26-0400 Diastolic blood pressure 85 mm[Hg] [facility] 01-30-2024 09:26-0400 Heart rate 97 /min [facility] 01-30-2024 09:26-0400 SaO2% (BldA) [Mass fraction] 97 % [facility] 01-30-2024 09:26-0400 Systolic blood pressure 142 mm[Hg] [facility] 01-09-2024 15:16-0400 Body height 152.4 cm [facility] 01-09-2024 15:16-0400 Body mass index (BMI) [Ratio] 37.8 kg/m2 [facility] 01-09-2024 15:16-0400 Body temperature 97.7 [degF] [facility] 01-09-2024 15:16-0400 Body weight 87.99 kg [facility] 01-09-2024 15:16-0400 Diastolic blood pressure 80 mm[Hg] [facility] 01-09-2024 15:16-0400 Heart rate 90 /min [facility] 01-09-2024 15:16-0400 Respiratory rate 18 /min [facility] 01-09-2024 15:16-0400 SaO2% (BldA) [Mass fraction] 99 % [facility] 01-09-2024 15:16-0400 Systolic blood pressure 131 mm[Hg] [facility] 12-25-2023 17:21-0400 Body height 152.4 cm [facility] 12-25-2023 17:21-0400 Body mass index (BMI) [Ratio] 30.2 kg/m2 [facility] 12-25-2023 17:21-0400 Body temperature 98.3 [degF] [facility] 12-25-2023 17:21-0400 Body weight 70.3 kg [facility] 12-25-2023 17:21-0400 Heart rate 96 /min [facility] 12-25-2023 17:21-0400 Respiratory rate 18 /min [facility] 12-25-2023 17:21-0400 SaO2% (BldA) [Mass fraction] 96 % [facility] 10-04-2023 08:09-0500 Body mass index (BMI) [Ratio] 37.07 kg/m2 Gita HUSAIN Work Phone: [facility] 10-04-2023 08:09-0500 Body weight 86.09 kg Gita Hemmer PA Work Phone: [facility] 10-04-2023 08:09-0500 Diastolic blood pressure 75 mm[Hg] Gita Hemmer PA Work Phone: [facility] 10-04-2023 08:09-0500 Heart rate 94 /min Gita Hemmer PA Work Phone: [facility] 10-04-2023 08:09-0500 Respiratory rate 14 /min Gita Hemmer PA Work Phone: [facility] 10-04-2023 08:09-0500 SaO2% (BldA) [Mass fraction] 95 % Gita Hemmer PA Work Phone: [facility] 10-04-2023 08:09-0500 Systolic blood pressure 140 mm[Hg] Gita Hemmer PA Work Phone: [facility] 08-01-2023 08:30-0500 Body height 152.4 cm Jane Waller Other [facility] Other 04-02-2023 11:15-0400 Body height 152.4 cm Jane Waller Other [facility] Other 04-02-2023 11:15-0400 Body mass index (BMI) [Ratio] 36.71 kg/m2 Jane Waller Other [facility] Other 04-02-2023 11:15-0400 Body weight 85.28 kg Jane Waller Other [facility] Other 04-02-2023 11:15-0400 Diastolic blood pressure 82 mm[Hg] Jane Waller Other [facility] Other 04-02-2023 11:15-0400 SaO2% (BldA) [Mass fraction] 98 % Jane Waller Other [facility] Other 04-02-2023 11:15-0400 Systolic blood pressure 143 mm[Hg] Jane Waller Other [facility] Other 02-06-2023 08:45-0400 Body height 152.4 cm Jane Sridhar Other [facility] Other 02-06-2023 08:45-0400 Diastolic blood pressure 79 mm[Hg] Jane Sridhar Other [facility] Other 02-06-2023 08:45-0400 SaO2% (BldA) [Mass fraction] 96 % Jane Sridhar Other [facility] Other 02-06-2023 08:45-0400 Systolic blood pressure 118 mm[Hg] Jane Sridhar Other [facility] Other 03-19-2022 10:00-0400 Body height 152.4 cm Ciera Poppy Other [facility] Other 03-19-2022 10:00-0400 Body mass index (BMI) [Ratio] 35.74 kg/m2 Ciera Poppy Other [facility] Other 03-19-2022 10:00-0400 Body temperature 96.8 [degF] Ciera Poppy Other [facility] Other 03-19-2022 10:00-0400 Body weight 83.01 kg Ciera Poppy Other [facility] Other 03-19-2022 10:00-0400 Diastolic blood pressure 89 mm[Hg] Ciera Poppy Other [facility] Other 03-19-2022 10:00-0400 Respiratory rate 20 /min Ciera Poppy Other [facility] Other 03-19-2022 10:00-0400 SaO2% (BldA) [Mass fraction] 98 % Ciera Poppy Other [facility] Other 03-19-2022 10:00-0400 Systolic blood pressure 142 mm[Hg] Ciera Poppy Other [facility] Other 02-22-2022 11:00-0400 Body height 152.4 cm Jane Waller Other [employer] Other 02-22-2022 11:00-0400 Body mass index (BMI) [Ratio] 35.93 kg/m2 Jane Waller Other [facility] Other 02-22-2022 11:00-0400 Body temperature 97.7 [degF] Jane Waller Other [facility] Other 02-22-2022 11:00-0400 Body weight 83.46 kg Jane Waller Other [facility] Other 02-22-2022 11:00-0400 Diastolic blood pressure 82 mm[Hg] Jane Waller Other [facility] Other 02-22-2022 11:00-0400 SaO2% (BldA) [Mass fraction] 98 % Jane Waller Other [facility] Other 02-22-2022 11:00-0400 Systolic blood pressure 122 mm[Hg] Jane Waller Other [facility] Other 08-22-2021 16:30-0500 Body height 152.4 cm Jane Waller Other [facility] Other 08-22-2021 16:30-0500 Body mass index (BMI) [Ratio] 37.2 kg/m2 Jane Sridhar Other [facility] Other 08-22-2021 16:30-0500 Body temperature 97.5 [degF] Jane Waller Other [facility] Other 08-22-2021 16:30-0500 Body weight 86.41 kg Jane Waller Other [facility] Other 08-22-2021 16:30-0500 Diastolic blood pressure 83 mm[Hg] Jane Waller Other [employer] Other 08-22-2021 16:30-0500 SaO2% (BldA) [Mass fraction] 97 % Jane Waller Other [facility] Other 08-22-2021 16:30-0500 Systolic blood pressure 141 mm[Hg] Jane Waller Other [facility] Other 08-19-2021 10:20-0500 Body height 152.4 cm Tracy Oliver Other [facility] Other 08-19-2021 10:20-0500 Body mass index (BMI) [Ratio] 36.52 kg/m2 Tracy Oliver Other [facility] Other 08-19-2021 10:20-0500 Body temperature 97.9 [degF] Tracy Oliver Other [facility] Other 08-19-2021 10:20-0500 Body weight 84.82 kg Tracy Oliver Other [facility] Other 08-19-2021 10:20-0500 Diastolic blood pressure 80 mm[Hg] Tracy Oliver Other [facility] Other 08-19-2021 10:20-0500 Respiratory rate 18 /min Tracy Oliver Other [facility] Other 08-19-2021 10:20-0500 SaO2% (BldA) [Mass fraction] 100 % Tracy Oliver Other [facility] Other 08-19-2021 10:20-0500 Systolic blood pressure 146 mm[Hg] Tracy Oliver Other [facility] Other 06-01-2021 09:30-0400 Body height 152.4 cm Jane Waller Other [employer] Other Encounters Encounter Date Encounter Type Care Provider Facility Start: 07-16-2024 End: 07-16-2024 ambulatory Elver Mendenhall II Work Phone: [facility] Work Phone: Start: 07-16-2024 End: 07-16-2024 Patient encounter procedure Elver Mendenhall II Work Phone: [facility] Work Phone: Start: 07-13-2024 End: 07-13-2024 Telephone encounter Gita HUSAIN Work Phone: [facility] Start: 07-02-2024 End: 07-02-2024 Office outpatient visit 15 minutes Trever MAYESM Work Phone: [facility] Comment on above: Peroneal tendinitis, left (Primary Dx); Peroneal tendinitis, right; Venous insufficiency Start: 07-02-2024 End: 07-02-2024 ambulatory TREVER BARNARD Not Available Start: 07-02-2024 End: 07-02-2024 Bamboo flowsheet Trever Barnard DPM Work Phone: [facility] Start: 07-02-2024 End: 07-02-2024 Bamboo flowsheet Trever Barnard DPM Work Phone: [facility] Start: 06-13-2024 End: 06-15-2024 Telephone encounter Gita HUSAIN Work Phone: [facility] Start: 06-03-2024 End: 06-03-2024 Office outpatient visit 25 minutes Gita HUSAIN Work Phone: [facility] Comment on above: Ankle edema (Primary Dx); Hypokalemia; Peroneal tendinitis of left lower extremity; Peroneal tendinitis of right lower extremity; Obesity (BMI 30-39.9); Abnormal electrocardiogram; Family history of heart disease; Venous insufficiency Start: 06-03-2024 End: 06-03-2024 ambulatory GITA GARCIA Not Available Start: 05-31-2024 End: 05-31-2024 Non-patient / Non-visit Elver Mendenhall II Work Phone: [facility] Work Phone: Start: 05-28-2024 Non-patient / Non-visit Elver Mendenhall II Work Phone: [facility] Work Phone: Start: 05-28-2024 End: 05-28-2024 ambulatory TREVER BARNARD Not Available Start: 05-20-2024 End: 05-20-2024 ambulatory II Elver Mendenhall Work Phone: [facility] Work Phone: Start: 05-20-2024 End: 05-20-2024 Departed Referred II Elver Mendenhall Work Phone: [facility] [place] Work Phone: Start: 05-19-2024 End: 05-20-2024 Patient encounter procedure II Elver Mendenhall Work Phone: [facility] Work Phone: Start: 05-19-2024 End: 05-20-2024 ambulatory II Elver Mendenhall Work Phone: [facility] Work Phone: Start: 05-14-2024 End: 05-14-2024 ambulatory TREVER BARNARD Not Available Start: 05-13-2024 End: 05-13-2024 ambulatory GITA GARCIA Not Available Start: 03-04-2024 End: 03-04-2024 ambulatory SEB Rogers APLING Not Available Start: 01-30-2024 End: 01-30-2024 ambulatory [facility] Work Phone: Start: 01-30-2024 End: 01-30-2024 Patient encounter procedure [facility] Work Phone: Start: 01-09-2024 End: 01-09-2024 ambulatory [facility] Work Phone: Start: 01-09-2024 End: 01-09-2024 Patient encounter procedure [facility] Work Phone: Start: 12-25-2023 End: 12-25-2023 ambulatory [facility] Work Phone: Start: 12-25-2023 End: 12-25-2023 Patient encounter procedure 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 Work Phone: [facility] Comment on above: Nevus; Perioral dermatitis Start: 10-14-2023 End: 10-14-2023 ambulatory LUBNA LAWRENCE Not Available Start: 10-10-2023 End: 10-10-2023 ambulatory Jane Waller Other [employer] Other Start: 10-10-2023 Telephone encounter Jane Waller [facility] Start: 10-04-2023 Chart abstracting Gita sinha PA Work Phone: [facility] Start: 10-04-2023 End: 10-04-2023 Patient encounter status Gita Garcia PA Work Phone: [facility] Work Phone: Start: 10-04-2023 End: 10-04-2023 Periodic preventive med est patient 40-64yrs Gita Garcia PA Work Phone: [facility] [...] 09-05-2023 End: 09-05-2023 ambulatory Jane Waller Other [employer] Other Start: 09-05-2023 Telephone encounter Jane Song [facility] Start: 08-01-2023 Office outpatient vi sit 25 minutes Jane Waller [facility] Start: 08-01-2023 End: 08-01-2023 Patient encounter procedure II Elver Mendenhall Work Phone: [facility] Work Phone: Start: 08-01-2023 End: 08-01-2023 ambulatory II Elver Mendenhall Work Phone: [employer] Other Start: 07-30-2023 End: 07-30-2023 ambulatory Ciera Poppy Other [employer] Other Start: 07-30-2023 Office outpatient vi sit 25 minutes Ciera Poppy [facility] Start: 07-16-2023 End: 07-16-2023 ambulatory Ciera Poppy Other [employer] Other Start: 07-16-2023 Telephone encounter Ciera Poppy [facility] Start: 07-15-2023 End: 07-15-2023 ambulatory GITA Segura RADHA Not Available Start: 06-13-2023 End: 06-13-2023 ambulatory Jane Waller Other [employer] Other Start: 06-13-2023 Telephone encounter Jane Waller [facility] Start: 06-03-2023 End: 06-03-2023 ambulatory Jane Waller Other [employer] Other Start: 06-03-2023 Telephone encounter Jane Waller [facility] Start: 04-02-2023 Office outpatient vi sit 25 minutes Jane Waller [facility] Start: 04-02-2023 End: 04-02-2023 ambulatory II Elver Mendenhall Work Phone: [employer] Other Start: 04-02-2023 End: 04-02-2023 Patient encounter procedure II Elver Mendenhall Work Phone: [facility] Work Phone: Start: 03-11-2023 End: 03-11-2023 ambulatory Efraín Patel Other [employer] Other Start: 03-11-2023 Telephone encounter Kamal Chaban [facility] Start: 02-06-2023 Office outpatient vi sit 25 minutes Jane Sridhar [facility] Start: 02-06-2023 End: 02-06-2023 ambulatory II Elver Mendenhall Work Phone: [employer] Other Start: 02-06-2023 End: 02-06-2023 Patient encounter procedure II Elver Mendenhall Work Phone: [facility] Work Phone: Start: 11-22-2022 End: 11-22-2022 ambulatory Jane Sridhar Other [employer] Other Start: 11-22-2022 Telephone encounter Jane Waller [facility] Start: 08-28-2022 End: 08-28-2022 ambulatory Jane Waller Other [employer] Other Start: 08-28-2022 Telephone encounter Jane Sridhar [facility] Start: 07-03-2022 End: 07-03-2022 Patient encounter procedure II Elver Mendenhall Work Phone: [facility] Start: 07-03-2022 End: 07-03-2022 ambulatory II Elver Mendenhall Work Phone: [facility] Work Phone: Start: 07-03-2022 Office outpatient vi sit 25 minutes Jane Waller [facility] Start: 05-24-2022 End: 05-24-2022 ambulatory Jane Sridhar Other [employer] Other Start: 05-24-2022 Telephone encounter Jane Waller [facility] Start: 03-19-2022 End: 03-19-2022 ambulatory Ciera Poppy Other [employer] Other Start: 03-19-2022 Office outpatient vi sit 25 minutes Ciera Poppy [facility] Start: 02-23-2022 End: 02-23-2022 ambulatory Jane Waller Other [employer] Other Start: 02-23-2022 Telephone encounter Jane Sridhar [facility] Start: 02-22-2022 End: 02-22-2022 ambulatory Jane Waller Other [employer] Other Start: 02-22-2022 Office outpatient vi sit 25 minutes Jane Sridhar [facility] Start: 11-24-2021 End: 11-24-2021 ambulatory Jane Sridhar Other [employer] Other Start: 11-24-2021 Telephone encounter Jane Song [facility] Start: 09-08-2021 End: 09-08-2021 ambulatory Jane Sridhar Other [employer] Other Start: 09-08-2021 Telephone encounter Ciera Poppy [facility] Disease Start: 08-22-2021 End: 08-22-2021 ambulatory Jane Waller Other [facility] Start: 08-22-2021 Office outpatient vi sit 25 minutes Jane Sridhar [facility] Start: 08-19-2021 End: 08-19-2021 ambulatory Tracykevin Oliver Other [facility] Other Start: 08-19-2021 Office outpatient vi sit 15 minutes Tracykevin Oliver [facility] Start: 08-02-2021 End: 08-02-2021 ambulatory Jane Sridhar Other [facility] Other Start: 08-02-2021 Telephone encounter Jane Song [facility] Start: 06-30-2021 Telephone encounter Jane Song [facility] Start: 06-01-2021 Office outpatient vi sit 25 minutes Jane Waller [facility] Start: 07-07-2019 End: 07-13-2019 Evaluation and management of inpatient ELVER MENDENHALL Facility:[facility] Start: 07-06-2019 End: 07-07-2019 Patient encounter [...] PA Work Phone: Start: 12-09-2020 Mammography Gita sinha PA Work Phone: Start: 07-07-2019 REPAIR RIGHT KNEE PHONG INT, OPEN APPROACH IAN EBRAHEIM Start: 07-07-2019 REPOSITION RIGHT TIB IA WITH INT FIX, OPEN APPROACH IAN EBRAHEIM Start: 07-07-2019 SUPPLEMENT RIGHT TIB IA WITH SYNTH SUB, OPEN APPROACH IAN EBRAHEIM Start: 07-07-2019 Antibody screen ELVER MENDENHALL Comment on above: Performed By: #### 6 [id number] #### [address] Start: 12-27-2018 End: 12-27-2018 Microscopic examination of blood, culture ELVER MENDENHALL Comment on above: Performed By: #### B [id number] #### [facility] [address] [address] Jose Pelayo Performed By: #### L IPA, CMP #### [facility] [address] [address] Jose Pelayo Plan of Treatment Date Care Activity Detail Author Start: 03-27-2028 Screening for malign ant neoplasm of cervix [facility] Start: 03-27-2026 Screening for malign ant neoplasm of cervix Pap Smear [facility] Start: 05-13-2025 Screening for malign ant neoplasm of colon Colorectal Cancer Screening [facility] Comment on above: Postponed from 06/07 (Patient Refused) Start: 02-08-2025 End: 02-08-2025 Patient encounter procedure 02/08/2025 8:30 AM EDT Office Visit [facility] [address] [place] [phone] Lubna Lawrence, PHARMACIST IN CHARGE-BIOSTATISTICS TEACHER [address] [place] [address] [facility] Start: 08-28-2024 End: 08-28-2024 Patient encounter procedure 08/28/2024 11:30 AM EST Office Visit [facility] [address] [place] [phone] Lenny Snow, DO [address] [place] [address] [facility] Start: 07-02-2024 End: 07-02-2024 Patient encounter procedure 07/02/2024 4:20 PM EDT Office Visit [facility] [address] [facility] [address] [place] [address] Trever Barnard, DPImelda [address] [facility] 5 [place] [address] Peroneal tendinitis, left (Primary Dx); Peroneal tendinitis, right; Venous insufficiency [facility] Comment on above: Peroneal tendinitis, left (Primary Dx); Peroneal tendinitis, right; Venous insufficiency Start: 06-30-2024 End: 06-30-2024 Patient encounter procedure 06/30/2024 9:30 AM EDT Office Visit [facility] [address] [place] [phone] Lenny Snow, DO [address] [place] [address] [facility] Start: 06-25-2024 End: 06-25-2024 Patient encounter procedure 06/25/2024 2:40 PM EDT Office Visit [facility] [address] [place] [address] Trever Barnard, DPImelda [address] [facility] 5 [place] [address] [facility] Start: 06-10-2024 End: 06-03-2025 Basic metabolic 1998 panel - Serum or Plasma Basic metabolic panel Lab Routine Hypokalemia Expected: 06/10/2024 (Approximate), Expires: 06/03/2025 [facility] Work Phone: Comment on above: Expected: 06/10/2024 (Approximate), Expires: 06/03/2025 Start: 06-03-2024 End: 06-03-2026 US Heart Transthoracic Transthoracic Echo (TTE) Complete Echocardiography Routine Ankle edema Abnormal electrocardiogram Expected: 06/03/2024 (Approximate), Expires: 06/03/2026 [facility] Comment on above: Expected: 06/03/2024 (Approximate), Expires: 06/03/2026 Start: 05-03-2024 Influenza vaccination Influenza Vacc ine (#1) [facility] Start: 04-09-2024 End: 04-09-2024 Patient encounter procedure 04/09/2024 9:35 AM EDT Office Visit [facility] [address] [place] [address] Lubna Lawrence, PHARMACIST IN CHARGE-BIOSTATISTICS TEACHER [address] [place] [address] [facility] Start: 03-31-2024 End: 03-31-2024 Patient encounter procedure 03/31/2024 9:45 AM EDT Office Visit [facility] [address] [place] [address] Lenny Snow DO [address] [place] [address] [facility] Start: 11-15-2023 End: 11-15-2023 Patient encounter procedure 11/15/2023 8:30 AM EDT Office Visit [facility] [address] [place] [address] Gita Garcia PA [address] [place] [address] [facility] Start: 10-14-2023 End: 10-14-2023 Patient encounter procedure 10/14/2023 8:30 AM EST Office Visit [facility] [address] [place] [address] Lubna Lawrence APRN-BIOSTATISTICS TEACHER [address] [place], [place] [id number] [facility] Start: 10-04-2023 End: 10-04-2024 CBC W Auto Differential panel - Blood CBC and differential Lab Routine Wellness examination Iron deficiency Thrombocythemia Anemia, unspecified type Expected: 10/04/2023 (Approximate), Expires: 10/04/2024 [facility] Work Phone: Comment on above: Expected: 10/04/2023 (Approximate), Expires: 10/04/2024 Start: 10-04-2023 End: 10-04-2024 Comprehensive metabolic 2000 panel - Serum or Plasma Comprehensive metabolic panel Lab Routine Wellness examination Ankle edema Elevated ALT measurement Mixed hyperlipidemia ([facility]/HCC) Expected: 10/04/2023 (Approximate), Expires: 10/04/2024 [facility] Comment on above: Expected: 10/04/2023 (Approximate), Expires: 10/04/2024 Start: 10-04-2023 End: 10-04-2024 Hemoglobin A1c measurement Hemoglobin A1c Lab Routine Wellness examination Impaired fasting glucose History of gestational diabetes Expected: 10/04/2023 (Approximate), Expires: 10/04/2024 [facility] Comment on above: Expected: 10/04/2023 (Approximate), Expires: 10/04/2024 Start: 10-04-2023 End: 10-04-2024 Iron + transferrin + TIBC Iron + transferrin + TIBC Lab Routine Wellness examination Iron deficiency Anemia, unspecified type Expected: 10/04/2023 (Approximate), Expires: 10/04/2024 [facility] Comment on above: Expected: 10/04/2023 (Approximate), Expires: 10/04/2024 Start: 10-04-2023 End: 10-04-2024 Lipid 1996 panel - Serum or Plasma Lipid panel Lab Routine Wellness examination Elevated ALT measurement Mixed hyperlipidemia (CMS/HCC) Expected: 10/04/2023 (Approximate), Expires: 10/04/2024 [facility] Comment on above: Expected: 10/04/2023 (Approximate), Expires: 10/04/2024 Start: 10-04-2023 End: 10-04-2024 TSH W/REFLEX TO FT4 TSH W/REFLEX TO FT4 Lab Routine Wellness examination Tachycardia Weight gain Expected: 10/04/2023 (Approximate), Expires: 10/04/2024 [facility] Comment on above: Expected: 10/04/2023 (Approximate), Expires: 10/04/2024 Start: 10-04-2023 End: 10-04-2023 Patient encounter procedure 10/04/2023 8:00 AM EST Office Visit [facility] [address] [facility] [address] [place] [address] Gita Garcia PA [address] [facility] [address] [place] [address] [facility] Start: 05-03-2023 Influenza vaccination Influenza Vacc ine (#1) [facility] Start: 12-09-2021 Screening for malign ant neoplasm of breast Mammogram [facility] Start: 1997 Screening for malign ant neoplasm of cervix Pap Smear [facility] Start: 1976 Screening for malign ant neoplasm of colon [facility] Immunizations Immunization Date Immunization Notes Care Provider Aretha wilde 03-10-2016 Rocephin 500 mg Jane Waller Other [facility] Other 02-17-2016 tetanus toxoid, reduced diphtheria toxoid, and acellular pertussis vaccine, adsorbed Gita Hemmer PA Work Phone: [facility] Work Phone: Payers Date Payer Category Payer Self-pay [id number] 2022 Blue Cross Blue Shield BCBS Memb er Subscriber Plan / Payer (Effective 2022-Present) Name: Linda Alvarado Relation to Subscriber: Spouse Name: BRIANNA ALVARADO Date of : 1973 (Home) [address]: [address] [place] [id number] Payer ID: Not on file Type: Not on file Address: [address] [place] [id number] 2022 Unknown BCBS BCBS xxxxxx [id number] 2022-Present [id number] [place], [place] [id number] 2022 Blue Cross Blue Shield [id number] 1976 Unknown [id number] 2.16840.1.225780.3.579.2. 593 1976 Unknown [id number] 2.16840.1.575840.3.579.2. 593 1976 Unknown [id number] 2.16840.1.952173.3.579.2. 593 1976 Unknown [id number] 2.16840.1.753430.3.579.2. 593 1976 Unknown [id number] 2.16.840.1.699361.3.579.2. 647 1976 Unknown [id number] 2.16.840.1.249787.3.579.2. 9 1976 Unknown [id number] 2.16.840.1.825774.3.579.2. 9 1976 Unknown [id number] 2.16.840.1.867362.3.579.2. 9 1976 Unknown [id number] 2.16.840.1.561428.3.579.2. 9 1976 Unknown [id number] 2.16.840.1.291220.3.579.2. 9 1976 Unknown [id number] 2.16.840.1.666089.3.579.2. 9 1976 Unknown [id number] 2.16.840.1.594852.3.579.2. 9 1976 Unknown [id number] 2.16.840.1.052411.3.579.2. 9 1976 Unknown [id number] 2.16.840.1.747581.3.579.2. 9 1976 Unknown [id number] 2.16.840.1.308946.3.579.2. 1259 1959 Unknown [id number] Unknown [id number] 2.16.840.1.894563.19 [facility] [id number] Unknown [id number] 2.16.840.1.520946.3.579.2. 531 Unknown [id number] 2.16.840.1.110213.3.579.2. 531 Unknown [id number] 2.16.840.1.315580.3.579.2. 531 Social History Date Type Detail Facility Unknown if ever smoked [facility] Start: 03-27-2023 End: 07-15-2023 Sex Assigned At [facility] Start: 03-13-2021 End: 10-14-2023 Tobacco smoking status NHIS Never smoked tobacco (finding) [facility] Start: 1975 Sex Assigned At Female F [facility] Start: 03-27-2023 End: 10-14-2023 Tobacco use and exposure Smokeless tobacco non-user [facility] Start: 07-15-2023 End: 07-02-2024 Alcohol intake Lifetime non-drinker (finding) [facility] Start: 03-27-2023 End: 07-15-2023 History of Social function [facility] Within the last year , have you been afraid of your partner or ex-partner? No [facility] Do you belong to any clubs or organizations such as presybeterian groups, unions, fraternal or athletic groups, or [...] At Not on file [facility] Start: 07-16-2024 Sex Female (finding) [facility] NEGATED: Highlighted rowStart: NINF History of tobacco use Passive smoker [facility] Goals Date Patient Goal Desired Activity /State Personal health goal Clinical Notes 11-18-2020 to 07-13-2024 Telephone Encounter - LISHA Grayson - 07/13/2024 2:42 PM ESTTelephone Encounter - LISHA Grayson - 07/13/2024 2:42 PM ESTTelephone Encounter - Iqra Hutchins MA - 07/13/2024 9:17 AM EST Note Date & Type Note Facility 07-13-2024 Telephone encount er Note Sent [facility] 07-13-2024 Miscellaneous Notes Formattin g of this note might be different from the original. Sent Pt lm on asking if a refill of medrol tomer could be sent in again as her feet are swelling again documented in this encounter [facility] 07-13-2024 Telephone encount er Note Pt lm on asking if a refill of medrol tomer could be sent in again as her feet are swelling again [facility] 07-02-2024 History of Presen t illness Narrative Patient: Linda Alvarado : 1975 PCP: Elver Mendenhall MD SUBJECTIVE This is a 49 y.o. female that presents today for a follow up of bilateral peroneal tendinitis and was taking a Medrol pack in the past and rates pain up to a 1 /10 at times. She states she has tried anti-inflammatories with some improvement and pain with 1st steps during the day and with prolonged standing. Patient is approved for orthotics with 80 percent coverage Patient states greatly improved since prior visits Pt also has history of venous stasis to b/l lower extremities. Allergies: Allergies Allergen Reactions Clarithromycin GI intolerance Sulfa Antibiotics Unknown Past Medical History: Past Medical History: Diagnosis Date Abnormal ECG 12/2018 Asthma (CMS/HCC) Comminuted fracture of shaft of tibia 07/06/2019 RT COVID-19 05/2021 Ectopic 2010 Fracture of tibial plateau GDM (gestational diabetes mellitus) Infertility counseling Miscarriage 2010 OCD (obsessive compulsive disorder) ([facility]) ROBYN (obstructive sleep apnea) Seasonal allergies Medications: Current Outpatient Medications: Adderall XR 20 MG 24 hr capsule, 1 (one) time each day at the same time., Disp: , Rfl: Advair Diskus 500-50 MCG/ACT aerosol powder , INHALE 1 PUFF INTO THE LUNGS TWICE A DAY FOR 30 DAYS, Disp: , Rfl: albuterol HFA 90 mcg/act inhaler, , Disp: , Rfl: amphetamine-dextroamphetamine (Adderall) 20 MG tablet, TAKE 1 TABLET ORALLY ONCE A DAY AT NOON 90 DAYS, Disp: , Rfl: atorvastatin (Lipitor) 10 MG tablet, TAKE 1 TABLET BY MOUTH EVERY DAY IN THE MORNING, Disp: 90 tablet, Rfl: 2 cetirizine (ZyrTEC ALLERGY) 10 MG tablet, 1 (one) time each day at the same time., Disp: , Rfl: cholecalciferol (Vitamin D-3) 50 MCG (1999 [place]) capsule, , Disp: , Rfl: citalopram (CeleXA) 40 MG tablet, Take 0.5 tablets (20 mg) by mouth Daily, Disp: 45 tablet, Rfl: 3 dilTIAZem CD (Cardizem CD) 120 MG 24 hr capsule, TAKE 1 CAPSULE (120 MG) BY MOUTH IN THE MORNING, Disp: 100 capsule, Rfl: 3 eletriptan (Relpax) 40 MG tablet, TAKE 1 TABLET BY MOUTH, REPEAT IN 2 HOURS IF HEADACHE RETURNS,*NO MORE THAN 2 DOSES IN 24 HOURS, Disp: 12 tablet, Rfl: 12 fluticasone (Flonase) 50 MCG/ACT nasal spray, SPRAY 1 TO 2 SPRAYS IN EACH NOSTRIL ONCE DAILY, Disp: , Rfl: minocycline 100 MG capsule, Take 1 capsule, by mouth, bid, 30 days (Patient taking differently: Take 1 capsule, by mouth, bid, 30 days PRN), Disp: 60 capsule, Rfl: 0 omeprazole (PriLOSEC) [address] capsule, TAKE 1 CAPSULE BY MOUTH TWICE DAILY, Disp: 180 capsule, Rfl: 3 potassium chloride CR (Klor-Con) 10 MEQ ER tablet, Take 2 tablets (20 mEq) by mouth in the morning and 2 tablets (20 mEq) before bedtime., Disp: , Rfl: Sunosi 150 MG tablet, , Disp: , Rfl: torsemide (Demadex) 10 MG tablet, TAKE 1 TABLET (10 MG) BY MOUTH DAILY., Disp: 90 tablet, Rfl: 1 valACYclovir (Valtrex) 500 MG tablet, TAKE 1 TABLET (500 MG) BY MOUTH IN THE MORNING, Disp: 90 tablet, Rfl: 0 Social History: Social History Socioeconomic History Marital status: Spouse name: Not on file Number of children: Not on file Years of education: Not on file Highest education level: Master's degree (e.g., MA, MS, Grisel, MEd, ENGINEERING CLERK, LEONEL) Occupational History 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[employer] Tobacco Use Smoking 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 Passive exposure: Never Smokeless tobacco: Never Vaping Use Vaping 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 Used Substance and Sexual Activity Alcohol use: Never Comment: Caffeine intake: 1-2 cups per day soda Drug use: Never Sexual activity: Defer Other Topics Concern Not on file Social History Narrative Not on file Social Drivers of Health Financial Resource Strain: Low Risk (07/15/2023) Overall Financial Resource Strain (CARDIA) Difficulty of Paying Living Expenses: Not hard at all Food Insecurity: No Food Insecurity (07/15/2023) Hunger Vital Sign Worried About Running Out of Food in the Last Year: Never true Ran Out of Food in the Last Year: Never true Transportation Needs: No Transportation Needs (07/15/2023) PRAPARE - Transportation Lack of Transportation (Medical): No Lack of Transportation (Non-Medical): No Physical Activity: Insufficiently Active (07/15/2023) Exercise Vital Sign Days of Exercise per Week: 2 days Minutes of Exercise per Session: 10 min Stress: No Stress Concern Present (07/15/2023) [place] [employer] - Occupational Stress Questionnaire Feeling of Stress : Not at all Social Connections: Socially Integrated (07/15/2023) Social Connection and Isolation Panel [NHANES] Frequency of Communication with Friends and Family: Twice a week Frequency of Social Gatherings with Friends and Family: More than three times a week Attends Denominational Services: More than 4 times per year Active Member of Clubs or Organizations: Yes Attends Club or Organization Meetings: More than 4 times per year Marital Status: Intimate Partner Violence: Not At Risk (07/15/2023) Humiliation, Afraid, Rape, and Kick questionnaire Fear of Current or Ex-Partner: No Emotionally Abused: No Physically Abused: No Sexually Abused: No Housing Stability: Low Risk (07/15/2023) Housing Stability Vital Sign Unable to Pay for Housing in the Last Year: No Number of Places Lived in the Last Year: 1 Unstable Housing in the Last Year: No ROS: General: denies fever, chills, fatigue, malaise GI: denies abdominal pain or ulcerations with anti-inflammatory medication OBJECTIVE LE EXAM: DERM: Positive hair growth to b/l feet with good skin turgor noted. Negative openings in skin. Plus one pitting edema to bilateral ankles VASC: Palpable pedal pulsed b/l with warm to cool tibia to toes b/l NEURO: Gross sensation intact digits 1-10 and b/l feet ORTHO: +5/5 DF/PF/IN/EV right, +5/5 DF/PF/IN/EV left. 20 degrees inversion and 10 degrees eversion STJ b/l. Ankle ROM less than 10 degrees b/l. minimal pain on palpation to left greater than right peroneus brevis tendon near insertion to 5th metatarsal base bilaterally XRAY: US: ASSESSMENT 1. Peroneal tendinitis, left 2. Peroneal tendinitis, right 3. Venous insufficiency PLAN Patient to continue with oral anti - inflammatories as needed for pain and recommended OTC medications such as tylenol or Ibuprofen Pt was fitted for custom made orthotics today. Orthotics were deemed to fit appropriately and patient was informed of proper break in of devices. Patient education on break in of device. ABN signed and in chart if warranted. Trever Barnard DPM documented in this encounter [facility] 06-13-2024 Telephone encount er Note Please let pt know that her recent lab showed her potassium is back in normal range. Continue potassium supplement. [facility] 06-13-2024 Miscellaneous Notes Formattin g of this note might be different from the original. Please let pt know that her recent lab showed her potassium is back in normal range. Continue potassium supplement. documented in this encounter [facility] 06-03-2024 History of Presen t illness Narrative Images from the original note were not included. Subjective Patient ID: Linda Alvarado is a 48 y.o. female who presents for a follow up of [facility] on 05/30. She went to [facility] for hypokalemia. Linda is present today for a follow up of [facility] for hypokalemia, she states her legs are also very swollen again. Her potassium was at 3.1 when she left the hospital she has been taking her potassium pills everyday. She states her hands have not been numb anymore. States her feet are painful. States Dr. Barnard gave her a Medrol tomer and that [...] History: Diagnosis Date Abnormal ECG 12/2018 Asthma ([facility]) Comminuted fracture of shaft of tibia 07/06/2019 RT COVID-19 05/2021 Ectopic 2010 Fracture of tibial plateau GDM (gestational diabetes mellitus) Infertility counseling Miscarriage 2010 OCD (obsessive compulsive disorder) ([facility]) ROBYN (obstructive sleep apnea) Seasonal allergies Past [...] on package instructions Follow up with Dr. Barnard as per his instruction. Obesity (BMI 30-39.9) [...] for pt. Venous insufficiency Agree with Dr. Barnard that venous insufficiency is contributing to pt's chronic swelling. The patient was seen today in follow up of recent hospital ER visit. All available hospital records/labs/diagnostics were reviewed and discussed with the patient. ER discharge meds were reviewed. Any changes to plan are noted above. Follow up in about 3 months (around 09/03/2024). documented in this encounter [facility] 10-14-2023 History of Presen t illness Narrative [...] Visit: 1 year documented in this encounter [facility] 10-10-2023 Evaluation note Encounter Date Diagnosis Assessment Notes Oct, ROBYN (obstructi ve sleep apnea) (ICD-10 - G47.33) [facility] 02-02-2024 History of Present illness Narrative* [...] sleepiness The patient is seeing a medical office technologist for this condition, treatment is deferred to that specialist. Correspondence from that specialist and any available testing were reviewed during today's visit. Obstructive sleep apnea The patient is seeing a medical office technologist for this condition, treatment is deferred to [...] infertility The patient is seeing a medical office technologist for this condition, treatment is deferred to [...] fracture The patient is seeing a medical office technologist for this condition, treatment is deferred to [...] (around 11/15/2023) for Recheck. documented in this [facility]11-30-2023 Evaluation note* Encounter Date Diagnosis Assessment [...] but has reported symptoms in the past [facility] 11-28-2023 Evaluation note* Encounter Date Diagnosis Assessment Notes Treatment Notes Treatment Clinical Notes Jul, Mild intermittent asthma, uncomplicated (ICD-10 - J45.20) [facility] 10-12-2023 Evaluation note* Encounter Date Diagnosis Assessment Notes Treatment Notes Treatment Clinical Notes Jun, ROBYN (obstructive sleep apnea) (ICD-10 - G47.33) [facility] 10-02-2023 Evaluation note* Encounter Date Diagnosis Assessment Notes Treatment Notes Treatment Clinical Notes Jun, ROBYN (obstructive sleep apnea) (ICD-10 - G47.33) [facility] 08-01-2023 Evaluation note* Encounter Date Diagnosis [...] is present Apr, Cataplexy (ICD-10 - G47.411) [facility] 07-10-2023 Evaluation note* Encounter Date Diagnosis Assessment Notes Treatment Notes Treatment Clinical Notes Mar, Mild intermittent asthma, uncomplicated (ICD-10 - J45.20) [facility] 2023 Evaluation note* Encounter Date Diagnosis [...] night before attempted MSLT. Her persistent elevated [place] sleepiness score, at 17, continues to show [...] have not gotten the PSG MSLT documentation [facility] 03-23-2023 Evaluation note* Encounter Date Diagnosis Assessment Notes Treatment Notes Treatment Clinical Notes Oct, ROBYN (obstructive sleep apnea) (ICD-10 - G47.33) [facility] 12-27-2022 Evaluation note* Encounter Date Diagnosis Assessment Notes Treatment Notes Treatment Clinical Notes Aug, ROBYN (obstructive sleep apnea) (ICD-10 - G47.33) [facility] 11-01-2022 Evaluation note* Encounter Date Diagnosis [...] sleepiness does suggest the diagnosis of narcolepsy [facility] 09-22-2022 Evaluation note* Encounter Date Diagnosis Assessment Notes Treatment Notes Treatment Clinical Notes May, ROBYN (obstructive sleep apnea) (ICD-10 - G47.33) [facility] 07-18-2022 Evaluation note* Encounter Date Diagnosis Assessment Notes Treatment Notes Treatment Clinical Notes Mar, Mild intermittent asthma, uncomplicated (ICD-10 - J45.20) Take Breo 1 inhalation daily if you run out of Advair. [facility] 06-24-2022 Evaluation note* Encounter Date Diagnosis Assessment Notes Treatment Notes Treatment Clinical Notes Jan, ROBYN (obstructive sleep apnea) (ICD-10 - G47.33) [facility] 06-23-2022 Evaluation note* Encounter Date Diagnosis [...] multiple sleep latency test is likely indicated [employer] Other 03-25-2022 Evaluation note* Encounter Date Diagnosis Assessment Notes Treatment Notes Treatment Clinical Notes Oct, Narcolepsy and cataplexy (ICD-10 - G47.411) [employer] Other 01-07-2022 Evaluation note* Encounter Date Diagnosis Assessment Notes Treatment Notes Treatment Clinical Notes Sep, Mild intermittent asthma, uncomplicated (ICD-10 - J45.20) [employer] Other 01-07-2022 Evaluation note* Encounter Date Diagnosis Assessment Notes Treatment Notes Treatment Clinical Notes Sep, Narcolepsy and cataplexy (ICD-10 - G47.411) [employer] Other 12-21-2021 Evaluation note* Encounter Date Diagnosis [...] have significant positive effects on sleep apnea [employer] Other 12-18-2021 Evaluation note* Encounter Date Diagnosis Assessment Notes Treatment Notes Treatment Clinical Notes Aug, Cellulitis of right lower extremity (ICD-10 - L03.115) Use medications as directed. Cover area as instructed. May use gently cleanser to area between daily application as instructed.. Follow up with primary care provider if no improvement of symptoms or if symptoms worsen. [employer] Other 12-01-2021 Evaluation note* Encounter Date Diagnosis Assessment Notes Treatment Notes Treatment Clinical Notes Aug, Narcolepsy and cataplexy (ICD-10 - G47.411) [facility] [employer] Other 10-29-2021 Evaluation note* Encounter Date Diagnosis Assessment Notes Treatment Notes Treatment Clinical Notes Jun, Narcolepsy and cataplexy (ICD-10 - G47.411) [facility] [employer] Other 09-30-2021 Evaluation note* Encounter Date Diagnosis [...] PAP for ROBYN and med for narcolepsy [employer] Other 07-12-2021 Progress note Author John Cowan [facility] March 13, 2021 9:57am Note Date/Time March 13, 2021 9:43 am [facility] at [address] [address] Hem/Onc Follow Up Note - OP Signed Patient: Linda Alvarado MR#: [id number] : 1975 Acct:[id number] Age/Sex: 45 / F Type: REG RCR Copies to: MD Gita Navarrete II, PA-C~ Subjective Date/Time of Service: Date of Service: 03/13/2021 Time of Service: 09:37 Chief Complaint: Patient is here for a 4 month follow up for thrombocytosis withlabs 03/08/2021 for review. No concerns are voiced at this time. 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 She is referred for mild thrombocytosis, [...] lymphoma in her 40s. at 61 of [place]. She had 6 first trimester miscarriages, one [...] of frequent infections or delayed wound healing.] [facility] - Medical History Medical History: Medical [...] % (Auto) 67.8, Lymph % (Auto) 21.7, [place] % (Auto) 6.5, Eos % (Auto) 2.9, Baso % (Auto) 1.1, Neut # (Auto) 5.7, Lymph # (Auto) 1.8, [place] # (Auto) 0.5, Eos # (Auto) 0.2, [...] for coordination of care (as documented) and zaej-[id number] counseling of patient and/or family. Dictated By: John Cowan MD DD/ 0937 Signed By: <Electronically signed by John Cowan MD> 03/13/21 0957 [facility] Work Phone: 1(407) 225-807103-19-2021 Progress note Author Cheng Almaguer [facility] November 18, 2020 5:11pm Note Date/Time November 18, 2020 2:4 6pm [facility] [place] at [place] [id number] Hem/Onc Follow Up Note - OP Signed with Brandon Patient: Linda Alvarado MR#: [id number] : 1975 Acct:[id number] Age/Sex: 45 / F Type: REG R Copies to: MD Gita Navarrete II, PA-C~ [...] patient of 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 She is referred for thrombocytosis. Past [...] lymphoma in her 40s. at 61 of [place]. She had 6 first trimester miscarriages, one [...] known thrombosis. she has never had mammogram. PMFSH - Medical History Medical History: Medical History [...] for coordination of care (as documented) and itmm-qi-ykwr counseling of patient and/or family. Attestation Statement - Physician Attestation cbc, cmp, ferritin, iron, iron sat. Jak2. she will call to discsuss results. f/u with me 1 year. Dictated By: Cheng Almaguer II, DO DD/ 1445 Signed By: <Electronically signed by Cheng Almaguer II, DO> 11/18/20 1506 [facility] Work Phone: 1(481) 659-717003-19-2021 Progress note Author Cheng Almaguer [facility] November 18, 2020 5:10pm Note Date/Time November 18, 2020 5:1 0pm [facility] [place] [address] Hem/Onc Follow Up Note - OP Signed Patient: Linda Alvarado MR#: [id number] : 1975 Acct:[id number] Age/Sex: 45 / F Type: REG RCR Copies to: MD Gita Navarrete II, PA-C~ Subjective Date/Time of Service: Date of Service: 11/18/2020 Time of Service: 17:09 Chief Complaint: Patient is here today for a referral from LISHA Dhaliwal for elevated platelets HPI: 45-year-old female primary patient of 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 She is referred for thrombocytosis. Past [...] lymphoma in her 40s. at 61 of [place]. She had 6 first trimester miscarriages, one [...] known thrombosis. she has never had mammogram. [facility] - Medical History Medical History: Medical [...] % (Auto) 70.1, Lymph % (Auto) 22.2, [place] % (Auto) 4.9, Eos % (Auto) 2.0, Baso % (Auto) 0.8, Neut # (Auto) 7.4, Lymph # (Auto) 2.3, [place] # (Auto) 0.5, Eos # (Auto) 0.2, [...] for coordination of care (as documented) and agcp-oc-pcyq counseling of patient and/or family. Attestation Statement - Physician Attestation We will give 2 doses of IV Injectafer and follow-up with me in 3 months. Prior to follow-up check CBC, CMP, iron, ferritin, iron binding capacity. Dictated By: Cheng Almaguer II, DO DD/ 170 Signed By: <Electronically signed by Cheng Almaguer II, DO> 11/18/20 1710 [facility] Work Phone: Evaluation noteNo assessment information available [facility] Work Phone: Evaluation [facility]No [facility] [employer] Other Evaluation note* Diagnosis Wellness examination- Primary [...] Perioral dermatitis Rosacea documented in this encounter [facility]* Diagnosis Onset Date Resolution Status Cellulitis of left lower leg noneactive [facility] Work Phone: Evaluation note* Diagnosis Onset Date Resolution Status Cellulitis of left lower leg noneactive Dysuria noneactive [facility] Work Phone: Evaluation note* Diagnosis Onset Date Resolution Status Cellulitis of left lower leg noneactive Abdominal pain acute Hypnagogic hallucinations [place] Narcolepsy and cataplexy acu te OCD (obsessive compulsive disorder) acute ROBYN (obstructive sleep apnea) acute Sleep paralysis acute [facility] Work Phone: Evaluation note* Diagnosis Ankle edema- Primary Edema Hypokalemia Hypopotassemia Peroneal tendinitis of left lower extremity Peroneal tendinitis of right lower extremity Obesity (BMI 30-39.9) Abnormal electrocardiogram Nonspecific abnormal electrocardiogram (ECG) (EKG) Family history of heart disease Venous insufficiency Unspecified venous (peripheral) insufficiency documented in this encounter [facility]* Diagnosis Peroneal tendinitis, left- Primary Peroneal tendinitis, right Venous insufficiency Unspecified venous (peripheral) insufficiency documented in this encounter [facility]* Diagnosis Peroneal tendinitis of left lower extremity Peroneal tendinitis of right lower extremity documented in [facility] encounter [facility] HealthcareHistory general Narrative - Reported* Type Description Date Medical History allergies Medical History asthma Medical History OCD (obsessive compulsive disord er) Medical History Herpes Medical History ROBYN -Auto BiPAP with maximum of 14 minimum of 5 with pressure support of 4. Surgical History D&C Surgical History cholecystectomy Surgical History carpal tunnel release Surgical History C section Hospitalization History see above [employer] Other [facility]l general Narrative - Reported* Type Description Date [...] History C section Hospitalization History see above [employer] Other History general Narrative - Reported* Type Description Date Medical History allergies Medical History asthma Medical History OCD (obsessive compulsive disord er) Medical History Herpes Medical History ROBYN -Auto BiPAP Medical History suspected narcolepsy - EDS, clinical cataplexy, inconclusive PSG/MSLT Surgical History D&C Surgical History cholecystectomy Surgical History carpal tunnel release Surgical History C section Hospitalization History see above [employer] Other Summary Purpose Family History Relationship Condition [...] 2017 9:15am Hospital Course Note MR#: [id number] [facility] Pt. Name: Linda Alvarado Admitted: 07/07/2019 [...] sleep apnea) Sleep paralysis Chief Complaint Narcolepsy Chief Complaint Admit Date Narcolepsy May 19, 2024 7:21pm R40.4 May 20, 2024 1:00pm R40.4 May 28, 2024 5:55pm MSLT RESULTS July 16, 2024 3:40pm Reason for Referral Specialty Diagnoses / Procedures Referred By Shena david Referred To Contact Radiology Diagnoses Ankle edema Abnormal electrocardiogram Procedures Transthoracic Echo (TTE) Complete Gita Garcia PA [address] [facility] [address] [place] [address] [facility] Scheduling [address] [place] [address] Phone: [phone] Referral ID Status Reason Start Date Expiration Date Visits Requested Visits Authorized [id number] Incomplete Perform Procedure 06/03/2024 11/30/2024 1 1 Additional Source Comments INFORMATION SOURCE (unrecogn ized section and content) DATE CREATED AUTHOR 03/28/2018 [facility] DATE CREATED AUTHOR AUTHOR'S ORGANIZ ATION 03/29/2018 [facility] DATE CREATED AUTHOR AUTHOR'S ORGANIZ ATION 07/08/2019 [facility] DATE CREATED AUTHOR AUTHOR'S ORGANIZ ATION 04/05/2020 [facility] DATE CREATED AUTHOR AUTHOR'S ORGANIZ ATION 09/19/2021 [facility] DATE CREATED AUTHOR AUTHOR'S ORGANIZ ATION 06/25/2024 [facility] DATE CREATED AUTHOR AUTHOR'S ORGANIZ ATION 07/04/2024 [facility] EPIC REASON FOR VISIT (unrecogniz ed section and content) Reason Comments Foot Pain B/L PB Reason Comments Follow-up Reason Comments Med Refill [...] Active Jane Waller MD Attending Provider Active Forestry Instructor Relationship Specialty Start Date End Date Elver Mendenhall MD [address] [facility] [address] [place] [address] PCP - General Internal Medicine 03/27/23 Forestry Instructor Relationship Specialty Start Date End Date Elver Mendenhall MD [address] [place] [address] [place] [address] PCP - General Internal Medicine 03/27/23 Forestry Instructor Relationship Specialty Start Date End Date Elver Mendenhall MD [address] [place] [address] [place] [address] PCP - General Internal Medicine 03/27/23 Team [...] 2024 Team Status: Inactive Member Role Status Khalif Mendenhall II MD Primary Care Provider Active Start: January 30, 2024 End: January 30, 2024 Jane Waller MD Attending Provider Active S tart: January 30, 2024 End: January 30, 2024 Team Status: Inactive Member Role Status Khalif Mendenhall II MD Primary Care Provider Active Start: May 19, 2024 End: May 19, 2024 Jane Waller MD Attending Provider Active S tart: May 19, 2024 End: May 19, 2024 Team Status: Inactive Member Role Status Khalif Waller MD Attending Provider Active S tart: May 20, 2024 End: May 20, 2024 Forestry Instructor Relationship Specialty Start Date End Date Elver Mendenhall MD [address] [facility] [address] [place] [address] PCP - General Internal Medicine 03/27/23 Forestry Instructor Relationship Specialty Start Date End Date Elver Mendenhall MD [address] [facility] [address] [place] [address] PCP - General Internal Medicine 03/27/23 Team Status: Active Member Role Status Khalif Garcia NP-C Primary Care Provider Active Team Status: Inactive Member Role Status Khalif Mendenhall II MD Primary Care Provider Active Start: May 19, 2024 End: May 20, 2024 Jane Waller MD Attending Provider Active S tart: May 19, 2024 End: May 20, 2024 Team Status: Active Member Role Status Dates Jane Waller MD Attending Provider, Other Provider Active Start: May 28, 2024 Team Status: Active Member Role Status Dates Galindo Segura DO Attending Provider Active Sta rt: May 31, 2024 End: May 31, 2024 Shaikh Cheikh MD Referring Provider Active Sta rt: May 31, 2024 End: May 31, 2024 Team Status: Inactive Member Role Status Dates Jane Waller MD Attending Provider Active S tart: July 16, 2024 End: July 16, 2024 NOVA Dhaliwal Primary Care Provider Active Start: July 16, 2024 End: July 16, 2024 Forestry Instructor Relationship Specialty Start Date End Date Elver Mendenhall MD [address] [facility] [address] [place] [address] PCP - General Internal Medicine 03/27/23 Goals [...] BE BASED ON THE PRIMARY CLINICAL RECORDS. [employer] [facility]. provides no warranty or guarantee of the accuracy or completeness of information in this document.
== END 2024-07-24 06:38 | disposition home or self-care (01) ==
LOC: MRI 06:37
PROVIDERS: PCP Internal Medicine; Visit Provider Physician Assistant
DX: M51.26 Other intervertebral disc displacement, lumbar region (principal); M41.9 Scoliosis, unspecified; M54.16 Radiculopathy, lumbar region; M51.369 Other intervertebral disc degeneration, lumbar region without mention of lumbar back pain or lower extremity pain
CPT/HCPCS: 72148

== ENCOUNTER 2024-10-07 00:27 | Emergency (ER) | payer BC, SELFPAY ==
[2024-10-07 00:37] VITALS: BP 146/82; PULSE 95; TEMP 36.9; O2SAT 92; BMI 35.1
--- OUTSIDE RECORDS SUMMARY | 2024-10-07 00:40 | XMS_ITS | CCD ---
Author Organization [facility] Care Team Providers Care 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 Name Role Phone UNKNOWN, PROVIDER Unavailable Unavailable ELVER MENDENHALL Unavailable Unavailable ELVER MENDENHALL Primary Care Unavailable NAOMI MOROCHO Admitting Unavailable BAILEE, NAOMI Vasques Attending Unavailable JANE NAQVI V Consulting Unavailable BAIELE, NAOMI Vasques Consulting Unavailable NICHOLAS BOLTON Consulting [...] Unavailable PURA, LESLYE Warner Attending Unavailable EBEN CROWLEY Consulting Unavailable LUBNA MANZANARES Consulting Unavailable ELVER MENDENHALL Primary Care Unavailable LESLYE DOSS Referring Unavailable EBRAIAN LLANES Attending Unavailable EBRAHEIM, IAN Admitting Unavailable MO Procedure Practitioner Unavailab IAN [place] Surgeon Unavailable Jane Waller Unavailable Ciera Mcwilliams Unavailable Tracy Oliver Unavailable OSCAR Mendenhall Primary Care Provider MD Jane Waller. Attending Provider OSCAR Mendenhall Primary Care Provider [phone] MD Jane Waller Attending Provider [phone] Efraín Patel Unavailable OSCAR Mendenhall Primary Care [...] Unavailable Jane Waller Admitting Unavailable Elver Mendenhall II Primary Care Provider Jane Waller MD Attending Provider GITA GARCIA Attending Unavailable LUBNA LAWRENCE Attending Unavailable SEB KITCHEN Attending Unavailable SEB KITCHEN Referring Unavailable GITA GARCIA Attending Unavailable TREVER BARNARD Attending Unavailable TREVER BARNARD Attending Unavailable GITA GARCIA Attending Unavailable TREVER BARNARD Attending Unavailable LENNY SNOW Attending Unavailable Allergies Allergy Classification Reported Allergen(s) Allergy Type Date of Onset Reaction(s) Facility (2 sources) Morphine Drug Allergy 9 [facility] Repository (1 source) Sulfamethoxazole / Trimethoprim Drug Allergy 6 [facility] (1 source) Sulfonamides (Antibiotic) Drug allergy (disorder) 9 [facility] Repository (20 sources) Clarithromycin; Translations: [clarithromycin] Drug Allergy 1 GI [address] [facility] (12 sources) Sulfanilamide; Translations: [sulfanilamide] Drug Allergy 1 Unknown Reaction, Anaphylaxis [facility] (20 sources) Sulfonamides (Antibiotic) Drug Allergy 3 Unknown [facility] Medications Current Medications Medication Drug Class(es) Dates Sig (Normalized) Sig (Original) acetaminophen 325 mg / oxyCODONE hydrochloride 5 mg oral tablet (1 source) Opioid Agonist Start: 06-22-2024 take 1 tablet by mouth every six hours as needed for pain oxyCODONE-acetami nophen (Percocet) 5-325 MG tablet TAKE 1 TABLET BY MOUTH EVERY 6 HOURS NEEDED FOR PAIN FOR 3 DAYS 06/22/2024 Active Advair Diskus 500-50 MCG/DOSE (8 sources) take 1 puff(s) by inhalation twice daily Advair Diskus 500-50 MCG/DOSE 1 puff Inhalation Twice a day for 30 days Active take 1 puff(s) by inhalation twi ce daily Advair Diskus 500-50 MCG/DOSE 1 puff Inhalation Twice a day for 90 day(s) Active [id number] 200 actuat albuterol 0.09 mg/actuat metered dose [...] 17, 2020 11:00pm take 1 capsule by [facility] every twenty-four hours ZyrTEC Allergy 10 MG 1 tab(s) Orally Daily Active cholecalciferol 0.05 mg oral capsule (20 sources) Vitamin D cholecalciferol (Vitamin D-3) 50 [...] 20 MG 1 tablet Orally Daily Active clindamycin 300 mg oral capsule (20 sources) Lincosamide Antibacterial Start: 05-13-2024 End: 05-20-2024 take 1 capsule by mouth in the morning, then take 1 capsule by mouth in the evening, then take 1 capsule by mouth at bedtime clindamycin (Cleocin) 300 MG capsule Indications: Bilateral lower leg cellulitis Take 1 capsule (300 mg) by mouth in the morning and 1 capsule (300 mg) in the evening and 1 capsule (300 mg) before bedtime. Do all this for 7 days. 21 capsule 05/13/2024 05/20/2024 Active Start: 12-25-2023 End: 01-09-2024 take 1 capsule by mouth three times daily Clindamycin Hcl 300 mg capsule Discontinued 300 MG PO Three times daily 30 December 24, 2023 11:00pm January 09, 2024 2:18pm Start: 04-29-2023 End: 06-03-2024 clindamycin (Clindagel) 1 % gel Indications: Perioral dermatitis Apply to face BID 60 g 1 04/29/2023 06/03/2024 Discontinued (Other) 24 hr dilTIAZem hydrochloride 120 mg extended release oral capsule (20 sources) Calcium Channel Konstantin Start: 04-13-2024 take 1 capsule by mouth every twenty-four hours in the morning dilTIAZem CD (Cardizem CD) 120 MG 24 hr capsule Indications: Tachycardia TAKE 1 CAPSULE (120 MG) BY MOUTH IN THE MORNING 100 capsule 3 04/13/2024 Active Start: 02-28-2023 take 1 capsule by mo [facility] every twenty-four hours in the morning dilTIAZem [...] PO Daily November 17, 2020 11:00pm doxycycline hyclate 100 mg oral capsule (8 sources) Tetracyclin e-class Drug Start: 08-22-2024 take 1 capsule by mouth in the morning doxycycline (Vibramycin) 100 MG capsule Take 100 mg by mouth in the morning and 100 mg before bedtime. 08/22/2024 Active Start: 08-19-2021 take 1 capsule by [facility] every twelve hours Doxycycline Monohydrate 100 MG [...] 08/09/2023 Active fluconazole 150 mg oral tablet (16 sources) Azole Antifungal Start: 07-13-2024 fluconazole (Diflucan) [...] 11-18-2020 Fluticasone Pr opionate (Flonase) 50 mcg/actuation Yoder,Suspension Active 1 SPRAY INTRANASAL Daily November 17, [...] End: 07-16-2024 take 1 tablet by mouth in the morning hydroCHLOROthiazide (HYDRODiuril) 25 MG tablet Indications: Ankle edema Take 1 tablet (25 mg) by mouth in the morning. 100 tablet 3 10/04/2023 Active methocarbamol 750 mg oral tablet (1 source) Muscle Relaxant Start: 06-22-2024 take 1 tablet by mouth three times daily as needed for pain methocarbamol (Robaxin) 750 MG tablet TAKE 1 TABLET BY MOUTH 3 TIMES A DAY NEEDED FOR PAIN 06/22/2024 Active methylPREDNISolone (20 sources) Corticosteroid Start: 08-28-2024 methylPREDNISolone (Medrol Dospak) 4 MG tablets Indications: Chronic sinusitis, unspecified location Follow schedule on package instructions 21 tablet 08/28/2024 Active Start: 07-13-2024 End: 08-28-2024 methylPREDNISolone (Medrol D ospak) 4 MG tablets Indications: Peroneal tendinitis of left lower extremity , Peroneal tendinitis of right lower extremity Follow schedule on package instructions 21 tablet 07/13/2024 08/28/2024 Discontinued (Reorder) Start: 07-13-2024 methylPREDNISo lone (Medrol Dospak) 4 [...] 21 tablet 05/14/2024 06/03/2024 Discontinued (Other) Start: 05-14-2024 methylPREDNISo lone (Medrol Dospak) 4 MG tablets Indications: Peroneal tendinitis, left Follow schedule on MEDROL PACK package instructions to be used as directed 21 tablet 05/14/2024 Active Start: 03-04-2024 End: 05-13-2024 methylPREDNISolone (Medrol D ospak) 4 MG tablets Indications: Sprain of anterior talofibular ligament of right ankle, initial encounter Follow schedule on package instructions 21 tablet 03/04/2024 05/13/2024 Discontinued (Therapy completed) Start: 03-04-2024 methylPREDNISo lone (Medrol Dospak) 4 MG tablets Indications: Sprain of anterior talofibular ligament of right ankle, initial encounter Follow schedule on package instructions 21 tablet 03/04/2024 Active Start: 08-19-2021 methylPREDNISo lone 4 MG as directed Orally Once a day for 6 days Aug, Active minocycline 100 mg oral capsule (20 sources) Tetracycline-class Drug Start: 08-10-2024 End: 09-09-2024 take 1 capsule by mouth once daily minocycline 100 MG capsule Indications: Perioral dermatitis Take 1 capsule (100 mg) by mouth Daily 30 capsule 08/10/2024 09/09/2024 Active Start: 07-13-2024 take 1 capsule by mo uth twice daily minocycline 100 MG capsule Indications: Perioral dermatitis Take 1 capsule, by mouth, bid, 30 days 60 capsule 07/13/2024 Active Start: 09-17-2023 take 1 capsule by mo uth twice daily minocycline 100 MG capsule Indications: [...] Active Start: 09-26-2023 take 1 capsule by [facility] twice daily omeprazole (PriLOSEC) [address] capsule Indications: Gastroesophageal reflux disease without esophagitis TAKE 1 CAPSULE BY MOUTH TWICE DAILY 180 capsule 3 09/26/2023 Active Start: 11-18-2020 take 1 capsule by [facility] once daily Omeprazole 40 mg Capsule,Delayed Release(Dr/Ec) Active 40 MG PO Daily November 17, 2020 11:00pm potassium chloride 10 meq extended release oral tablet (20 sources) Start: 08-03-2024 take 2 tablets by mouth in the morning potassium chloride CR (Klor-Con) 10 MEQ ER tablet Indications: Hypokalemia Take 2 tablets (20 mEq) by mouth in the morning and 2 tablets (20 mEq) before bedtime. 120 tablet 6 08/03/2024 Active Start: 06-03-2024 take 2 tablets by [facility] in the morning potassium chloride CR (Klor-Con) [...] 2023 12:00am torsemide 10 mg oral tablet (19 sources) Loop Diuretic Start: 05-13-2024 take 1 [...] Nucleoside Analog DNA Polymerase Inhibitor Start: 03-21-2024 End: 08-28-2025 take 1 tablet by mouth once daily valACYclovir (Valtrex) 500 MG tablet Indications: Encounter for gynecological examination (general) (routine) without abnormal findings Take 1 tablet (500 mg) by mouth Daily 90 tablet 3 08/28/2024 08/28/2025 Active Start: 11-18-2020 End: 12-25-2023 take 1 [...] sources) Central Nervous System Stimulant Start: 06-01-2021 End: 08-28-2024 take 1 capsule by mouth every twenty-four [...] 03-10-2016 Rocephin 500 mg Mar, 500 mg cyclobenzaprine hydrochloride 5 mg oral tablet (11 sources) Muscle Relaxant Start: 11-18-2020 End: 01-30-2024 Cyclobenzaprine 5 mg Tablet Discontinued 5 MG PO As Directed as needed for Muscle Spasm November 17, 2020 11:00pm January 30, 2024 8:52am modafinil 200 mg oral tablet (11 sources) Sympathomimetic-li ke Agent Start: 11-18-2020 End: 03-13-2021 take 1 [...] Problem Classification Problem Date Documented Date Episodic/Chronic Anxiety disorders (20 sources) Obsessive-compulsive disorder; Translations: [Obsessive-compulsive disorder, unspecified] Onset: 11-17-2008 02-20-2023 Chronic Anxiety disorders (1 source) Obsessive-compulsive disorder, unspecified; Translations: [OBSESSIVE-COMPULSIVE D/O UNSPEC] Onset: 01-06-2019 Disorders of lipid metabolism (20 sources) Mixed hyperlipidemia; Translations: [Mixed hyperlipidemia] Onset: 04-08-2014 02-20-2023 Chronic Esophageal disorders (20 sources) Gastro-esophageal reflux disease without esophagitis; Translations: [Gastroesophageal reflux disease without esophagitis] Onset: 07-08-2019 02-20-2023 Chronic External cause codes: Fall (1 source) Fall on same level, unspecified, initial encounter; Translations: [FALL SAME LEVEL UNSPECIFIED INITIAL] Onset: 07-08-2019 Female infertility (20 sources) Female infertility; Translations: [Female infertility, unspecified] Onset: 01-18-2011 03-27-2023 Chronic Fluid and electrolyte disorders (14 sources) Hypokalemia; Translations: [Dehydration] Onset: 01-06-2019 06-03-2024 Episodic Genitourinary symptoms and ill-defined conditions (1 source) Dysuria; Translations: [Dysuria] 01-09-2024 Episodic Headache; including migraine (20 sources) Migraine; Translations: [Migraine, unspecified, not intractable, without status migrainosus] Onset: 11-17-2008 02-20-2023 Chronic Nonspecific chest pain (1 source) Chest pain, unspecified; Translations: [Chest pain, unspecified] Onset: 03-27-2018 Episodic Other acquired deformities (1 source) Scoliosis of lumbar spine; Translations: [Scoliosis, unspecified] Onset: 08-28-2024 08-28-2024 Chronic Other aftercare (1 source) Other parts counterman (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 therapy; Translations: [OTH SHOULDER PAD MOLDER CURRENT DRUG THERAPY] Onset: 07-08-2019 Episodic Other and unspecified benign neoplasm (2 sources) Benign neoplasm of soft tissue; Translations: [Melanocytic nevi, unspecified] 10-14-2023 Episodic Other connective tissue disease (1 source) Pain in left leg; Translations: [PAIN IN LEFT LEG] Onset: 05-26-2019 Episodic Other connective tissue disease (2 sources) Pain in bilateral legs; Translations: [Pain in right leg] 10-04-2023 Episodic Other connective tissue disease (18 sources) Peroneal tendinitis of left lower limb; Translations: [Peroneal tendinitis, left leg] Onset: 06-03-2024 06-03-2024 Episodic Other connective tissue disease (18 sources) Peroneal tendinitis of right lower limb; Translations: [Peroneal tendinitis, right leg] Onset: 06-03-2024 06-03-2024 Episodic Other diseases of veins and lymphatics (17 sources) Vascular insufficiency; Translations: [Venous insufficiency (chronic) [...] Translations: [Abnormal weight gain] 10-04-2023 Episodic Other screening for suspected conditions (not mental disorders or infectious disease) (20 sources) Abnormal electrocardiogram [ECG] [EKG]; Translations: [Electrocardiogram abnormal] Onset: 06-12-2019 02-20-2023 Episodic Other skin disorders (4 sources) Localized swelling, mass and lump, left lower limb; Translations: [LOC SWELL MASS LUMP LT LOWER LIMB] Onset: 05-23-2019 Episodic Other upper respiratory disease (20 sources) Allergic rhinitis; Translations: [Other allergic rhinitis] Onset: 11-17-2008 02-20-2023 Chronic Other upper respiratory infections (1 source) Chronic sinusitis; Translations: [Chronic sinusitis, unspecified] 08-28-2024 Chronic Residual codes; unclassified (17 sources) Obstructive [...] EDEMA] Onset: 06-08-2019 Episodic Residual codes; unclassified (7 sources) Other hallucinations; Translations: [Hallucinations] Onset: 06-01-2021 Resolved: 02-22-2022 Episodic Residual codes; unclassified (11 sources) Family history of cardiac disorder; Translations: [Family history of ischemic heart disease and other diseases of the circulatory system] Onset: 06-03-2024 06-03-2024 Episodic Residual codes; unclassified (1 source) Transient alteration of awareness; Translations: [Transient alteration of awareness] Onset: 05-20-2024 Episodic Spondylosis; intervertebral disc disorders; other back problems (2 sources) Stenosis of vertebral foramen; Translations: [Spinal stenosis, site unspecified] Onset: 08-28-2024 08-28-2024 Episodic Unclassified (2 sources) Chest pain, unspecified / R07.9(ICD-9) Onset: 03-27-2018 Unclassified (19 sources) Patient on antidepressant monitoring plan Onset: 03-30-2024 03-30-2024 Unclassified (19 sources) Baseline PHQ-9 Onset: 03-30-2024 03-30-2024 Past or Other Problems Problem Classification Problem Date Documented Da te Episodic/Chronic Abdominal pain (20 sources) Abdominal pain; Translations: [Unspecified abdominal pain] Onset: 05-13-2024 01-09-2024 Episodic Asthma (20 sources) Unspecified asthma, uncomplicated; Translations: [Mild intermittent asthma] Onset: 07-08-2019 Resolved: 03-28-2023 Chronic Cardiac dysrhythmias (20 sources) Tachycardia; Translations: [Tachycardia, unspecified] Onset: 02-20-2023 02-20-2023 Episodic Contraceptive and procreative management (20 sources) Patient encounter status; Translations: [Encounter for fertility testing] Onset: 01-09-2011 Resolved: 10-04-2023 03-27-2023 Episodic Deficiency and other anemia (20 sources) Anemia; Translations: [Anemia, unspecified] Onset: 10-04-2023 03-13-2021 Episodic Diabetes mellitus without complication (20 sources) Impaired fasting glycemia; Translations: [Impaired fasting glucose] Onset: 02-20-2023 02-20-2023 Episodic Diabetes or abnormal glucose tolerance complicating ; childbirth; or the puerperium (20 sources) History of gestational diabetes mellitus; Translations: [Personal history of gestational diabetes] Onset: 02-20-2023 02-20-2023 Episodic Fever of unknown origin (1 source) Fever, unspecified; Translations: [FEVER UNSPECIFIED] Onset: 01-06-2019 Episodic Fracture of lower limb (20 sources) Displaced bicondylar fracture of right tibia, initial encounter for closed fracture; Translations: [Fracture of tibial plateau] Onset: 07-08-2019 Resolved: 10-04-2023 03-27-2023 Episodic Nausea and vomiting (4 sources) Nausea with vomiting, unspecified; Translations: [NAUSEA WITH VOMITING UNSPECIFIED] Onset: 12-27-2018 Episodic Neoplasms of unspecified nature or uncertain behavior (20 sources) Thrombocytosis; Translations: [Thrombocythemia] Onset: 02-20-2023 11-18-2020 Episodic Noninfectious gastroenteritis (1 source) Noninfective gastroenteritis and colitis, unspecified; Translations: [NONINFECTIVE GE AND COLITIS UNS] Onset: 01-06-2019 Episodic Nutritional deficiencies (20 sources) Iron deficiency; Translations: [Iron deficiency] Onset: 02-20-2023 02-20-2023 Episodic Other gastrointestinal disorders (1 source) Diarrhea, unspecified; Translations: [DIARRHEA UNSPECIFIED] Onset: 01-06-2019 Episodic Other injuries and conditions due to external causes (20 sources) H/O: fracture; Translations: [Personal history of (healed) traumatic fracture] Onset: 02-20-2023 02-20-2023 Episodic Other liver diseases (20 sources) ALT (SGPT) level raised; Translations: [Elevated ALT measurement] Onset: 02-20-2023 02-20-2023 Episodic Other nervous system disorders (20 sources) Narcolepsy without cataplexy ; 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 without cataplexy] Onset: 02-20-2023 Resolved: 03-28-2023 03-28-2023 Chronic Other non-traumatic joint disorders (20 sources) Ankle edema; Translations: [Effusion, unspecified ankle] Onset: 02-20-2023 02-20-2023 Episodic Residual codes; unclassified (1 source) Acquired absence of other specified parts of digestive tract; Translations: [ACQ ABSENCE OTH PART DIGESTV TRACT] Onset: 01-06-2019 Episodic Residual codes; unclassified (20 sources) Hypnagogic hallucinations; Translations: [Other hallucinations] Onset: 05-13-2024 01-30-2024 Episodic Skin and subcutaneous tissue infections (6 sources) Cellulitis of right lower limb; Translations: [Cellulitis of left lower limb] Onset: 08-19-2021 Resolved: 08-19-2021 Episodic Syncope (1 source) Syncope and collapse; Translations: [SYNCOPE AND COLLAPSE] Onset: 01-06-2019 Episodic Results Test Name Value Interpretation Reference Range Facility Amphetamine Screen Ql (U)Ord ered By: Jane Wlaler on 05-20-2024 Amphetamines Ql (U) Amphetamines screen Negativ e [facility] Amphetamines Ql (U) Negative Negative [facility] Barbiturates [Presence] in U rine by Screen methodOrdered By: Jane Waller on 05-20-2024 Barbiturates Screen Ql (U) Negative Negative [facility] Barbiturates Screen Ql (U) Barbiturates [Presence] in Urine by Screen method Negative [facility] Benzodiazepines Screen Ql (U )Ordered By: Jane Waller on 05-20-2024 Benzodiazepines Ql (U) Negative Negative [facility] Benzodiazepines Ql (U) Benzodiazepines [Presence] in Urine by Screen method Negative [facility] Benzoylecgonine [Presence] i n Urine by Screen methodOrdered By: Jane Waller on 05-20-2024 Benzoylecgonine Screen Ql (U) Negative Negative [facility] Benzoylecgonine Screen Ql (U) Benzoylecgonine [Presence] in Urine by Screen method Negative [facility] Cannabinoids [Presence] in U rine by Screen methodOrdered By: Jane Waller on 05-20-2024 Cannabinoids Screen Ql (U) Negative Negative [facility] Comment on above: These are unconfirme d results and should not be used for legal purposes. Drug Cut-Off Concentration: AMPH 1000 ng/mL KEITH 200 ng/mL LARS 200 ng/mL COCM 300 ng/mL OP 300 ng/mL PCP 25 ng/mL THC 20 ng/mL Cannabinoids Screen Ql (U) Cannabinoids [Presence] in Urine by Screen method Negative [facility] Comment on above: These are unconfirme d results and should not be used for legal purposes. Drug Cut-Off Concentration: AMPH 1000 ng/mL KEITH 200 ng/mL LARS 200 ng/mL COCM 300 ng/mL OP 300 ng/mL PCP 25 ng/mL THC 20 ng/mL Drug Screen,Urineon 05-20-20 Amphetamine Screen,Urine Negative Normal Negative [facility] Comment on above: Performed By: #### U RDS #### [address] Barbiturate Screen,Urine Negative Normal Negative [facility] Comment on above: Performed By: #### U RDS #### [place] [address] [place] Benzodiazepines Screen,Urine Negative Normal Negative [facility] Comment on above: Performed By: #### U RDS #### [place] [address] [place] Cannabinoid Screen,Urine Negative Normal Negative [facility] Comment on above: Result Comment: Thes e are unconfirmed results and should not be used for legal purposes. Drug Cut-Off Concentration: AMPH 1000 ng/mL KEITH 200 ng/mL LARS 200 ng/mL COCM 300 ng/mL OP 300 ng/mL PCP 25 ng/mL THC 20 ng/mL PERFORMED BY: [place] [address] PATHOLOGIST PUBLIC HEALTH NUTRITIONIST YENNIFER BROWN M.D. Performed By: #### U RDS #### [place] [address] [place] Cocaine Screen,Urine Negative Normal Negative [facility] Comment on above: Performed By: #### U RDS #### [facility] [address] [place] [address] [place] Opiate Screen,Urine Negative Normal Negative [facility] Comment on above: Performed By: #### U RDS #### [facility] [address] [place] [id number] [place] Phencyclidine Screen,Urine Negative Normal Negative [facility] Comment on above: Performed By: #### U RDS #### [facility] [address] [place] [id number] [facility] Opiates [Presence] in Urine by Screen methodOrdered By: Jane Waller on 05-20-2024 Opiates Screen Ql (U) Negative Negative [facility] Opiates Screen Ql (U) Opiates [Presence] in Urine by Screen method Negative [facility] Phencyclidine Screen Ql (U)O rdered By: Jane Waller on 05-20-2024 Phencyclidine Ql (U) Negative Negative [facility] Phencyclidine Ql (U) Phencyclidine [Presence] in Urine by Screen method Negative [facility] Laboratory - Chemistry and C hemistry - challengeon 01-09-2024 Bilirubin Ql (U) Negative [facility] Glucose (U) [Mass/Vol] Negative [facility] Ketones Ql (U) Negative [facility] pH (U) 6.0 [pH] [facility] Specific gravity (U) [Rel density] 1.[address] [facility] Urobilinogen (U) [Mass/Vol] 0.2 mg/dL [facility] Laboratory - Specimen inform ationon 01-09-2024 Appearance (U) clear [facility] Color (U) yellow [facility] Laboratory - Urinalysison Leukocyte esterase Test strip Ql (U) Negative [facility] Nitrite Ql (U) Negative [facility] Protein Ql (U) Negative [facility] No Panel Informationon 01-08 Urine Occult Blood Negative [facility] Complete Blood Count with Au to Diffon 09-18-2021 Basophils (Bld) [#/Vol] 0.09 10*3/uL Normal 0.00-0.20 [facility] Comment on above: Performed By: #### C BCAD, CMP, LIPD, FE Prof #### [facility] [address] [place], [place] [id number] Basophils/100 WBC (Bld) 1.2 % Normal [facility] Comment on above: Performed By: #### C BCAD, CMP, LIPD, FE Prof #### [facility] [address] [place], [place] [id number] Eosinophils (Bld) [#/Vol] 0.18 10*3/uL Normal 0.02-0.50 [facility] Comment on above: Performed By: #### C BCAD, CMP, LIPD, FE Prof #### [facility] [address] [place], [place] [id number] Eosinophils/100 WBC (Bld) 2.5 % Normal [facility] Comment on above: Performed By: #### C BCAD, CMP, LIPD, FE Prof #### [facility] [address] [place], [place] [id number] Erythrocyte distribution width (RBC) [Ratio] 12.4 % Normal 11.0-15.0 [facility] Comment on above: Performed By: #### C BCAD, CMP, LIPD, FE Prof #### [facility] [address] [place], [place] [phone] Hematocrit (Bld) [Volume fraction] 41.2 % Normal 35.0-47.0 [facility] Comment on above: Performed By: #### C BCAD, CMP, LIPD, FE Prof #### [facility] [address], [place] [id number] Hemoglobin (Bld) [Mass/Vol] 14.2 g/dL Normal 11.6-15.5 [facility] Comment on above: Performed By: #### C BCAD, CMP, LIPD, FE Prof #### [facility] [address], [place] [id number] Lymphocytes (Bld) [#/Vol] 2.3 10*3/uL Normal 0.9-3.9 [facility] Comment on above: Performed By: #### C BCAD, CMP, LIPD, FE Prof #### [facility] [address], [place] [id number] Lymphocytes/100 WBC (Bld) 31.5 % Normal [facility] Comment on above: Performed By: #### C BCAD, CMP, LIPD, FE Prof #### [facility] [address], [place] [id number] MCH (RBC) [Entitic mass] 33.4 pg High 27.0-33.0 [facility] Comment on above: Performed By: #### C BCAD, CMP, LIPD, FE Prof #### [facility] [address], [place] [id number] MCHC (RBC) [Mass/Vol] 34.5 g/dL Normal 32.0-36.0 [facility] Comment on above: Performed By: #### C BCAD, CMP, LIPD, FE Prof #### [facility] [address], [place] [id number] MCV (RBC) [Entitic vol] 97 fL Normal 80-100 [facility] Comment on above: Performed By: #### C BCAD, CMP, LIPD, FE Prof #### [facility] [address], [place] [id number] Monocytes (Bld) [#/Vol] 0.5 10*3/uL Normal 0.2-0.9 [facility] Comment on above: Performed By: #### C BCAD, CMP, LIPD, FE Prof #### [facility] [address], [place] [id number] Monocytes/100 WBC (Bld) 6.2 % Normal [facility] Comment on above: Performed By: #### C BCAD, CMP, LIPD, FE Prof #### [facility] [address], [place] [id number] Neutrophils (Bld) [#/Vol] 4.2 10*3/uL Normal 1.5-7.8 [facility] Comment on above: Performed By: #### C BCAD, CMP, LIPD, FE Prof #### [facility] [address], [place] [id number] Neutrophils/100 WBC (Bld) 58.5 % Normal [facility] Comment on above: Performed By: #### C BCAD, CMP, LIPD, FE Prof #### [facility] [address], [place] [id number] Platelet mean volume (Bld) [Entitic vol] 8.10 fL Normal 7.50-12.50 [facility] Comment on above: Performed By: #### C BCAD, CMP, LIPD, FE Prof #### [facility] [address], [place] [id number] Platelets (Bld) [#/Vol] 389 10*3/uL Normal 140-400 [facility] Comment on above: Performed By: #### C BCAD, CMP, LIPD, FE Prof #### [facility] [address], [place] [id number] RBC (Bld) [#/Vol] 4.25 10*6/uL Normal 3.90-5.[address] [facility] Comment on above: Performed By: #### C BCAD, CMP, LIPD, FE Prof #### [facility] [address], [place] [id number] RDW-SD 44.2 fL Normal 37.0-50.0 [facility] Comment on above: Performed By: #### C BCAD, CMP, LIPD, FE Prof #### [facility] [address], [place] [id number] WBC (Bld) [#/Vol] 7.2 10*3/uL Normal 3.8-11.0 [facility] Comment on above: Performed By: #### C BCAD, CMP, LIPD, FE Prof #### [facility] [address], [place] [id number] Comprehensive Metabolic Pane nichole 09-18-2021 Albumin [Mass/Vol] 4.5 g/dL Normal 3.6-5.1 [facility] [facility] Comment on above: Performed By: #### C BCAD, CMP, LIPD, FE Prof #### [facility] [address], [place] [id number] Albumin/Globulin [Mass ratio] 2.1 {ratio} Normal 1.0-2.5 [facility] Comment on above: Performed By: #### C BCAD, CMP, LIPD, FE Prof #### [facility] [address], [place] [id number] ALP [Catalytic activity/Vol] 64 U/L Normal 35-119 [facility] Comment on above: Performed By: #### C BCAD, CMP, LIPD, FE Prof #### [facility] [address], [place] [id number] ALT [Catalytic activity/Vol] 52 U/L High 6-33 [facility] Comment on above: Result Comment: 08/02 Female reference range changed. Performed By: #### C BCAD, CMP, LIPD, FE Prof #### [facility] [address], [place] [id number] Anion gap [Moles/Vol] 15 mmol/L Normal 12-20 [facility] Comment on above: Result Comment: Effe ctive 09/07/2019 reference range changed. Performed By: #### C BCAD, CMP, LIPD, FE Prof #### [facility] [address], [place] [id number] AST [Catalytic activity/Vol] 29 U/L Normal 9-34 [facility] Comment on above: Performed By: #### C BCAD, CMP, LIPD, FE Prof #### [facility] [address], [place] [id number] Bilirubin [Mass/Vol] 0.57 mg/dL Normal 0.30-1.20 [facility] Comment on above: Performed By: #### C BCAD, CMP, LIPD, FE Prof #### [facility] [address], [place] [id number] BUN/CREA 18 Ratio Normal 6-22 [facility] Comment on above: Performed By: #### C BCAD, CMP, LIPD, FE Prof #### [facility] [address] [facility] [place] [id number] Calcium [Mass/Vol] 9.5 mg/dL Normal 8.6-10.2 [facility] Comment on above: Performed By: #### C BCAD, CMP, LIPD, FE Prof #### [facility] [address], [place] [id number] Chloride [Moles/Vol] 103 mmol/L Normal 98-107 [facility] Comment on above: Performed By: #### C BCAD, CMP, LIPD, FE Prof #### [facility] [address], [place] [id number] CO2 [Moles/Vol] 27 mmol/L Normal 20-31 [facility] Comment on above: Performed By: #### C BCAD, CMP, LIPD, FE Prof #### [facility] [address], [place] [id number] Creatinine [Mass/Vol] 0.7 mg/dL Normal 0.6-1.4 [facility] Comment on above: Performed By: #### C BCAD, CMP, LIPD, FE Prof #### [facility] [address], [place] [id number] eGFRAA 112 mL/min/1.73m2 Normal >60 [facility] Comment on above: Performed By: #### C BCAD, CMP, LIPD, FE Prof #### [facility] [address], [place] [id number] eGFRNAA 92 mL/min/1.73m2 Normal >60 [facility] Comment on above: Performed By: #### C BCAD, CMP, LIPD, FE Prof #### [facility] [address], [place] [id number] Globulin (S) [Mass/Vol] 2.1 g/dL Normal 1.9-3.7 [facility] Comment on above: Performed By: #### C BCAD, CMP, LIPD, FE Prof #### [facility] [address], [place] [id number] Glucose [Mass/Vol] 123 mg/dL High 65-99 [facility] Comment on above: Result Comment: For FASTING Glucose --- ADA reference ranges: Normal 65-99 mg/dl Prediabetes 100-125 Diabetes >/= 126 Performed By: #### C BCAD, CMP, LIPD, FE Prof #### [facility] [address], [place] [id number] Potassium [Moles/Vol] 3.7 mmol/L Normal 3.5-5.5 [facility] [facility] Comment on above: Performed By: #### C BCAD, CMP, LIPD, FE Prof #### [facility] [address], [place] [id number] Protein [Mass/Vol] 6.6 g/dL Normal 6.1-8.1 [facility] [employer] [facility] Comment on above: Performed By: #### C BCAD, CMP, LIPD, FE Prof #### [facility] [address], [place] [id number] Sodium [Moles/Vol] 141 mmol/L Normal 135-146 [facility] [employer] [facility] Comment on above: Performed By: #### C BCAD, CMP, LIPD, FE Prof #### [facility] [address], [place] [id number] Urea nitrogen [Mass/Vol] 12 mg/dL Normal 7-25 [facility] [facility] Comment on above: Performed By: #### C BCAD, CMP, LIPD, FE Prof #### [facility] [address], [place] [id number] Iron Profileon 09-18-2021 %FESAT 38 % Normal 11-50 [facility] [facility] Comment on above: Performed By: #### C BCAD, CMP, LIPD, FE Prof #### [facility] [address], [place] [id number] FE 113 ug/dL Normal 40-190 [facility] [facility] Comment on above: Result Comment: Refe rence range change 07/19/2017. Prior reference range F 37-145 ug/dL, M 59-158 ug/dL. Performed By: #### C BCAD, CMP, LIPD, FE Prof #### [facility] [address], [place] [id number] TIBC 297 ug/dL Normal 250-450 [facility] [facility] Comment on above: Performed By: #### C BCAD, CMP, LIPD, FE Prof #### [facility] [address], [place] [id number] UIBC 184 ug/dL Normal 112-347 [facility] [facility] Comment on above: Performed By: #### C BCAD, CMP, LIPD, FE Prof #### [facility] [address], [place] [id number] Lipid Panelon 09-18-2021 Cholesterol [Mass/Vol] 238 mg/dL High 125-200 [facility] Comment on above: Result Comment: Low risk < 200mg/dL Borderline risk 201-239 mg/dl High risk > or equal to 240 Performed By: #### C BCAD, CMP, LIPD, FE Prof #### [facility] [address], [place] [id number] Cholesterol in HDL [Mass/Vol] 42 mg/dL Normal >40 [facility] [facility] Comment on above: Result Comment: High Cardiovascular Risk HDL <40 mg/dL Low Cardiovascular Risk HDL > or equal to 60 mg/dl Performed By: #### C BCAD, CMP, LIPD, FE Prof #### [facility] [address], [place] [id number] Cholesterol in LDL [Mass/Vol] 131 mg/dL Normal [facility] Comment on above: Result Comment: LDL ATP III CLASSIFICATION LDL less than 100 mg/dl Optimal LDL 100-129 mg/dl Near or above optimal LDL 130-159 Borderline high LDL 160-189 High LDL greater than 189 mg/dl Very High Performed By: #### C BCAD, CMP, LIPD, FE Prof #### [facility] [address], [place] [id number] Cholesterol in VLDL [Mass/Vol] 65 mg/dL Normal [facility] Comment on above: Performed By: #### C BCAD, CMP, LIPD, FE Prof #### [facility] [address], [place] [id number] Cholesterol.total/Ch olesterol in HDL [Mass ratio] 6 {ratio} Normal [facility] Comment on above: Performed By: #### C BCAD, CMP, LIPD, FE Prof #### [facility] [address], [place] [id number] Triglyceride [Mass/Vol] 326 mg/dL High 30-150 [facility] [employer] [facility] Comment on above: Result Comment: TRIG ATPIII CLASSIFICATIONS TRIG less than 150 mg/dl Normal TRIG 150-199 mg/dl Borderline High TRIG 200-500 mg/dl High TRIG greather than 500 mg/dl Very High Performed By: #### C BCAD, CMP, LIPD, FE Prof #### [facility] [address] MY[place]E Khalil [id number] KNEE RIGHT 3 VWSon 0 KNEE RIGHT 3 S [facility] Department of Radiology [address] [place] [phone] Patient Name: LINDA ALVARADO : 1975 Sex: F Age: Race: White Pt. Location: Patient Status: O Ordered Date: 03/31/2020 1:55:00 PM Completed Date: 03/31/2020 01:59 PM Requesting Provider: JONAS BISHOP Attending Provider: JONAS BISHOP Report Copy To: Signs & Symptoms: S82.101D Unsp fx upper end of r tibia, subs for clos fx w routn heal I10 History: [place] Comments: Weight Bearing?: Y Exam: KNEE RIGHT 3 [facility] KNEE RIGHT 3 [facility] 03/31/2020 1:59 PM CLINICAL INDICATIONS: S82.101D Unsp [...] fracture Electronically signed: Jonas Robbins. Transcribed by: [email or web address], User Resident: Electronically Signed by: JONAS ROBBINS @ 03/31/2020 02:03 PM Normal [facility] Comment on above: Order Comment: Weigh t Bearing?: Y KNEE RIGHT 3 [facility] 0 KNEE RIGHT 3 [facility] Department of Radiology [address] [place] [phone] Patient Name: LINDA ALVARADO : 1975 [...] BISHOP PA-C , Exam: KNEE RIGHT 3 [facility] KNEE RIGHT 3 [facility] 10/12/2019 11:29 AM SIGNS AND SYMPTOMS: S82.101D [...] alignment Electronically signed: Ying Enriquez. Transcribed by: [email or web address], User Resident: Electronically Signed by: YING ENRIQUEZ @ 10/12/2019 12:10 PM Normal [facility] Comment on above: Order Comment: , , = ========= , Ordering Provider - JONAS BISHOP PA-C , KNEE RIGHT 1 OR 2 [facility] 09-02 KNEE RIGHT 1 OR 2 [facility] Department of Radiology [address] [place] [phone] Patient Name: LINDA ALVARADO : 1975 Sex: F Age: Race: White Pt. Location: 84 Patient Status: Ordered Date: 09/14/2019 10:40:00 AM Completed Date: 09/14/2019 11:01 AM Requesting Provider: JONAS BISHOP Attending Provider: Report Copy To: Signs & Symptoms: S82.101D Unsp fx upper end of r tibia, subs for clos fx w routn heal I10 History: [place] Comments: , , , Ordering Provider - JONAS BISHOP PA-C , Exam: KNEE RIGHT 1 OR 2 S KNEE RIGHT 1 OR 2 S 09/14/2019 11:01 AM SIGNS AND SYMPTOMS: S82.101D [...] healing Electronically signed: Stephanie Miller. Transcribed by: [email or web address], User Resident: Electronically Signed by: STEPHANIE MILLER @ 09/14/2019 05:22 PM Normal [facility] Comment on above: Order Comment: , , = ========= , Ordering Provider - JONAS BISHOP PA-C , KNEE RIGHT 1 OR 2 [facility] 08-02 KNEE RIGHT 1 OR 2 S [facility] Department of Radiology [address] [place] [phone] Patient Name: LINDA ALVARADO : 1975 Sex: F Age: Race: White Pt. Location: Patient Status: O Ordered Date: 08/17/2019 1:25:00 PM Completed Date: 08/17/2019 01:26 PM Requesting Provider: JONAS BISHOP Attending Provider: JONAS BISHOP Report Copy To: ELVER MENDENHALL Signs & Symptoms: S82.101A Unsp fracture of upper end of right tibia, init for clos fx I10 History: [place] Comments: , Views (X-RAY, KNEE): AP, Lateral [...] effusion Electronically signed by:Stephanie Miller. Transcribed by: [email or web address], User Resident: Electronically Signed by: STEPHANIE MILLER @ 08/17/2019 03:52 PM Normal [facility] Comment on above: Order Comment: , Vie ws (X-RAY, KNEE): AP, Lateral , Views (X- RAY, KNEE): AP, Lateral , , , Ordering Provider - JONAS BISHOP PA-C , VITAMIN D 25-HYDROXYon 08-17 VITAMIN D 25-OH 35.4 ng/mL Normal 30.0-80.0 [facility] Comment on above: Result Comment: >80. 0 Toxicity possible Performed By: #### 5 6101, [address] #### [address] KNEE RIGHT 1 OR 2 [facility] 07-03 KNEE RIGHT 1 OR 2 S [facility] Department of Radiology [address] [place] [phone] Patient Name: LINDA ALVARADO : 1975 Sex: F Age: Race: White Pt. Location: Patient Status: Ordered Date: 07/20/2019 10:30:00 AM Completed Date: 07/20/2019 10:42 AM Requesting Provider: SHWETA VIDAL Attending Provider: Report Copy To: Signs & Symptoms: S82.101A Unsp fracture of upper end of right tibia, init for clos fx I10 History: [place] Comments: , , , Ordering Provider - [...] healing Electronically signed by:Stephanie Miller. Transcribed by: [email or web address], User Resident: Electronically Signed by: STEPHANIE MILLER @ 07/20/2019 05:04 PM Normal [facility] Comment on above: Order Comment: , , = ========= , Ordering Provider - SHWETA VIDAL PA-C , BASIC METABOLIC PANELon 11-0 Calcium [Mass/Vol] 8.8 mg/dL Normal 8.6-10.3 [facility] Comment on above: Order Comment: No: D o not add to previous draw Performed By: #### 5 6101, 22245 #### [facility] [address] [place] [address], [facility] Chloride [Moles/Vol] 99 mmol/L Normal 98-107 [facility] Comment on above: Order Comment: No: D o not add to previous draw Performed By: #### 5 610, 85170 #### [facility] [address] [place] [address], [place] CO2 [Moles/Vol] 27 mmol/L Normal 21-31 [facility] Comment on above: Order Comment: No: D o not add to previous draw Performed By: #### 5 610, 77228 #### [facility] [address] [place] [address], [place] Creatinine [Mass/Vol] 0.81 mg/dL Normal 0.60-1.20 [facility] Comment on above: Order Comment: No: D o not add to previous draw Performed By: #### 5 610, 55618 #### [facility] [address] [place] [address], [place] GFR/1.73 sq M predicted among blacks MDRD (S/P/Bld) [Vol rate/Area] mL/min/{1.73_m2} Normal >60 [facility] Comment on above: Order Comment: No: D o not add to previous draw Performed By: #### 5 610, 86434 #### [facility] [address] [place] [address], [place] GFR/1.73 sq M predicted among non-blacks MDRD (S/P/Bld) [Vol rate/Area] mL/min/{1.73_m2} Normal >60 [facility] Comment on above: Order Comment: No: D o not add to previous draw Performed By: #### 5 610, 18533 #### [facility] [address] [place] [address], [place] Glucose [Mass/Vol] 105 mg/dL High 70-100 [facility] Comment on above: Order Comment: No: D o not add to previous draw Performed By: #### 5 610, 94904 #### [facility] [address] [place] [address], [facility] Potassium [Moles/Vol] 3.8 mmol/L Normal 3.5-5.1 [facility] Comment on above: Order Comment: No: D o not add to previous draw Performed By: #### 5 610, 83080 #### [facility] [address] [place] [address], [place] Sodium [Moles/Vol] 133 mmol/L Low 136-145 [facility] Comment on above: Order Comment: No: D o not add to previous draw Performed By: #### 5 6100, 85568 #### [facility] [address] [place] [id number], [facility] Urea nitrogen [Mass/Vol] 10 mg/dL Normal 7-25 [facility] Comment on above: Order Comment: No: D o not add to previous draw Performed By: #### 5 6100, 30486 #### [facility] [address] [place] [id number], [facility] CBC COMPLETE BLOOD COUNTon 09-07-2018 Erythrocyte distribution width (RBC) [Ratio] 13.3 % Normal 11.5-15.0 [facility] Comment on above: Order Comment: No: D o not add to previous draw Performed By: #### 5 6100, 96228 #### [facility] [address] [place] [address], [facility] Hematocrit (Bld) [Volume fraction] 36.1 % Normal 36.0-45.0 [facility] Comment on above: Order Comment: No: D o not add to previous draw Performed By: #### 5 6100, 25880 #### [facility] [address] [place] [address], [facility] Hemoglobin (Bld) [Mass/Vol] 11.6 g/dL Low 12.0-15.0 [facility] Comment on above: Order Comment: No: D o not add to previous draw Performed By: #### 5 610, 40043 #### [facility] [address] [place] [address], [facility] MCH (RBC) [Entitic mass] 31.2 pg Normal 27.0-33.0 [facility] Comment on above: Order Comment: No: D o not add to previous draw Performed By: #### 5 6100, 33291 #### [facility] [address] [place] [id number], [facility] MCHC (RBC) [Mass/Vol] 32.1 g/dL Normal 32.0-35.0 [facility] Comment on above: Order Comment: No: D o not add to previous draw Performed By: #### 5 6100, 38678 #### [facility] [address] [place] [id number], [facility] MCV (RBC) [Entitic vol] 97.0 fL Normal 82.0-98.0 [facility] Comment on above: Order Comment: No: D o not add to previous draw Performed By: #### 5 6100, 21552 #### [facility] [address] [place] [id number], [facility] Nucleated RBC/100 WBC (Bld) [Ratio] 0 % Normal 0-0 [facility] Comment on above: Order Comment: No: D o not add to previous draw Performed By: #### 5 6100, 78530 #### [facility] [address] [place] [address], [facility] PLAT CNT 447 10*3/uL High 150-400 [facility] Comment on above: Order Comment: No: D o not add to previous draw Performed By: #### 5 6100, 60147 #### [facility] [address] [place] [id number], [facility] RBC (Bld) [#/Vol] 3.72 10*6/uL Low 3.80-5.00 [facility] Comment on above: Order Comment: No: D o not add to previous draw Performed By: #### 5 6100, 94830 #### [facility] [address] WBC (Bld) [#/Vol] 16.46 10*3/uL High 4.00-10.60 [facility] Comment on above: Order Comment: No: D o not add to previous draw Performed By: #### 5 6101, 67706 #### [facility] [address] *MRSA/MSSA DNA NASALon 07-07 *MRSA/MSSA DNA NASAL Clinical Report: (D ) Specimen: NASAL SWAB Collected: 07/07/2019 08:00 Status: Final Last Updated: 07/07/2019 14:28 MSSA DNA (Final) Methicillin Susceptible Staphylococcus aureus DNA Detected MRSA DNA (Final) Negative Normal [facility] Comment on above: Performed By: #### 5 6101, 41636 #### [facility] [address] APTTon 07-07-2019 aPTT Coag (Bld) [Time] 38.8 s High 25.0-35.0 [facility] Comment on above: Result Comment: ALL [...] THIS PURPOSE. Performed By: #### 5 6101, 57901 #### [facility] [address] [place] [address], [facility] CBC W/DIFFon 07-07-2019 ABS BASOPHILS 0.1 10*3/uL Normal 0.0-0.2 [facility] Comment on above: Performed By: #### 5 0103 #### [facility] [address] [facility]. [address] ABS IMM GRANS 0.0 10*3/uL Normal 0.0-0.2 [facility] Comment on above: Performed By: #### 5 0103 #### [facility] [address] [place] [address], [facility] ABS NEUTROPHILS 4.9 10*3/uL Normal 1.6-7.6 The [facility] Comment on above: Performed By: #### 5 0103 #### [facility] [address] [place] [address], [facility] Basophils/100 WBC (Bld) 1.0 % Normal 0.0-1.0 [facility] Comment on above: Performed By: #### 5 0103 #### [facility] [address] [place] [address], [facility] Eosinophils (Bld) [#/Vol] 0.2 10*3/uL Normal 0.0-0.5 [facility] Comment on above: Performed By: #### 5 0103 #### [facility] [address] [place] [address], [facility] Eosinophils/100 WBC (Bld) 3.0 % Normal 0.0-6.0 [facility] Comment on above: Performed By: #### 5 0103 #### [facility] [address] [facility] [place] [address], [facility] Erythrocyte distribution width (RBC) [Ratio] 13.3 % Normal 11.5-15.0 [facility] Comment on above: Performed By: #### 5 0103 #### [facility] [address] [place] [address], [facility] Hematocrit (Bld) [Volume fraction] 36.9 % Normal 36.0-45.0 [facility] Comment on above: Performed By: #### 5 3 #### [facility] [address] [place] [address], [facility] Hemoglobin (Bld) [Mass/Vol] 12.2 g/dL Normal 12.0-15.0 [facility] Comment on above: Performed By: #### 5 0103 #### [facility] [address] [place] [address], [facility] IMMATURE GRANS 0.5 % Normal 0.0-1.0 [facility] Comment on above: Performed By: #### 5 0103 #### [facility] [address] [place] [address], [facility] Lymphocytes (Bld) [#/Vol] 2.0 10*3/uL Normal 1.2-4.0 [facility] Comment on above: Performed By: #### 5 0103 #### [facility] [address] [place] [address], [facility] Lymphocytes/100 WBC (Bld) 25.3 % Normal 20.0-45.0 [facility] Comment on above: Performed By: #### 5 0103 #### [facility] [address] [place] [address], [facility] MCH (RBC) [Entitic mass] 31.4 pg Normal 27.0-33.0 [facility] Comment on above: Performed By: #### 5 0103 #### [facility] [address] [facility]. [place] [id number], [facility] MCHC (RBC) [Mass/Vol] 33.1 g/dL Normal 32.0-35.0 [facility] Comment on above: Performed By: #### 5 0103 #### [facility] [address] [facility] [place] [place] [address], [facility] MCV (RBC) [Entitic vol] 95.1 fL Normal 82.0-98.0 [facility] Comment on above: Performed By: #### 5 3 #### [facility] [address] [place]. [place] [id number], [facility] Monocytes (Bld) [#/Vol] 0.6 10*3/uL Normal 0.1-1.0 [facility] Comment on above: Performed By: #### 5 0103 #### [facility] [address] [place] [address], [facility] MONOS 7.3 % Normal 5.0-12.0 [facility] Comment on above: Performed By: #### 5 0103 #### [facility] [address] [place] [address], [facility] Neutrophils/100 WBC (Bld) 62.9 % Normal 40.0-72.0 [facility] Comment on above: Performed By: #### 5 0103 #### [facility] [address] [place] [address], [facility] Nucleated RBC/100 WBC (Bld) [Ratio] 0 % Normal 0-0 [facility] Comment on above: Performed By: #### 5 0103 #### [facility] [address] [place] [address], [facility] PLAT CNT 392 10*3/uL Normal 150-400 [facility] Comment on above: Performed By: #### 5 0103 #### [facility] [address] [place] [address], [facility] RBC (Bld) [#/Vol] 3.88 10*6/uL Normal 3.80-5.00 [facility] Comment on above: Performed By: #### 5 0103 #### [facility] [address] [place] [address], [facility] WBC (Bld) [#/Vol] 7.72 10*3/uL Normal 4.00-10.60 [facility] Comment on above: Performed By: #### 5 3 #### [facility] [address] COMP METABOLIC PANELon 07-07 Albumin [Mass/Vol] 3.9 g/dL Normal 3.5-5.7 [facility] Comment on above: Performed By: #### 0 0121 #### [facility] [address] [place] [address], [facility] ALKALINE PHOSPH 58 IU/L Normal 34-104 [facility] Comment on above: Performed By: #### 0 0121 #### [facility] [address] [place] [address], [facility] ALT [Catalytic activity/Vol] 55 U/L High 7-52 [facility] Comment on above: Performed By: #### 0 0121 #### [facility] [address] [place] [address], [facility] AST [Catalytic activity/Vol] 39 U/L Normal 13-39 [facility] Comment on above: Performed By: #### 0 0121 #### [facility] [address] [place] [address], [facility] Bilirubin [Mass/Vol] 0.4 mg/dL Normal 0.3-1.0 [facility] Comment on above: Performed By: #### 0 0121 #### [facility] [address] [place] [address], [facility] Calcium [Mass/Vol] 9.0 mg/dL Normal 8.6-10.3 [facility] Comment on above: Performed By: #### 0 0121 #### [facility] [address] [place] [address], [place] Chloride [Moles/Vol] 104 mmol/L Normal 98-107 [facility] Comment on above: Performed By: #### 0 0121 #### [facility] [address] [place] [address], [place] CO2 [Moles/Vol] 25 mmol/L Normal 21-31 [facility] Comment on above: Performed By: #### 0 0121 #### [facility] [address] [place] [address], [facility] Creatinine [Mass/Vol] 0.81 mg/dL Normal 0.60-1.20 [facility] Comment on above: Performed By: #### 0 0121 #### [facility] [address] [place] [address], [place] GFR/1.73 sq M predicted among blacks MDRD (S/P/Bld) [Vol rate/Area] mL/min/{1.73_m2} Normal >60 [facility] Comment on above: Performed By: #### 0 0121 #### [facility] [address] [place] [address], [place] GFR/1.73 sq M predicted among non-blacks MDRD (S/P/Bld) [Vol rate/Area] mL/min/{1.73_m2} Normal >60 [facility] Comment on above: Performed By: #### 0 0121 #### [facility] [address] [place] [address], [place] Glucose [Mass/Vol] 112 mg/dL High 70-100 [facility] Comment on above: Performed By: #### 0 0121 #### [facility] [address] [place] [address], [place] Potassium [Moles/Vol] 3.5 mmol/L Normal 3.5-5.1 [facility] Comment on above: Performed By: #### 0 0121 #### [facility] [address] [place] [address], [place] Protein [Mass/Vol] 6.9 g/dL Normal 6.0-8.3 [facility] Comment on above: Performed By: #### 0 0121 #### [facility] [address] [place] [address], [place] Sodium [Moles/Vol] 134 mmol/L Low 136-145 [facility] Comment on above: Performed By: #### 0 0121 #### [facility] [address] [facility]. [address] Urea nitrogen [Mass/Vol] 10 mg/dL Normal 7-25 [facility] Comment on above: Performed By: #### 0 0121 #### [facility] [address] [facility] 3D LOWER EXTREMITY WO CON TRAST RIGHTon 07-07-2019 CT 3D LOWER EXTREMITY WO CONTRAST RIGHT [facility] Department of Radiology [address] [place] [id number] Patient Name: LINDA ALVARADO : 1975 Sex: F Age: Race: White Pt. Location: [facility] Patient Status: I Ordered Date: 07/07/2019 2:05:00 [...] findings. Electronically signed by:Ying Enriquez. Transcribed by: [email or web address], User Resident: JANET HARRINGTON Electronically Signed by: YING ENRIQUEZ @ 07/07/2019 07:01 AM I personally read this/these film(s) with this resident Normal [facility] Comment on above: Order Comment: R/O F ractures, right leg from mid femur down to ankle KNEE RIGHT 1 OR 2 [facility] KNEE RIGHT 1 OR 2 [facility] Department of Radiology [address] [place] [id number] Patient Name: LINDA ALVARADO : 1975 Sex: F Age: Race: White Pt. Location: [id number] Patient Status: I Ordered Date: 07/07/2019 7:20:00 [...] Documentation Electronically signed by:Ying Enriquez. Transcribed by: [email or web address], User Resident: Electronically Signed by: YING ENRIQUEZ @ 07/07/2019 01:40 PM Normal [facility] Comment on above: Order Comment: orif tibial plateau right, possible ex-fix Operative Reporton 9 Operative Report MR#: [id number] I [facility] Pt. Name: Linda Alvarado Room #: [id number] Discharge Date: Birthdate: 1975 OPERATIVE REPORT DATE [...] immediately available to assist. Date Dict: 07/07/2019/12:02 Skyler/Maye Cruz MD Date Trans: 07/07/2019 01:02 P/kelin [id number] cc: Elver Mendenhall M.D. 3 [facility] [address] Leslye Doss M.D. E R Physican...do Not Send [address] [place] [facility] [place] [address] Normal [facility] POC GLUCOSE LABon 07-07-2019 Glucose [Mass/Vol] 92 mg/dL Normal 70-100 [facility] Comment on above: Performed By: #### 8 5499 #### [facility] [address] [facility]. [address] POC URINE PREGNANCYon 2018 Beta HCG ( test) Ql (U) Negative Normal NEGATIVE [facility] Comment on above: Result Comment: Perf ormed in Emergency Department. Performed By: #### 8 4140 #### [facility] [address] PROTHROMBIN TIMEon 9 INR Coag (PPP) [Relative time] 1.12 {INR} Normal 0.91-1.16 [facility] Comment on above: Result Comment: ACCC [...] CHEST 1995;108:[id number]-246S. Performed By: #### 5 6101, [address] #### [facility] [address] PT Coag (PPP) [Time] 14.5 s Normal 12.3-14.8 [facility] Comment on above: Result Comment: ALL RESULTS MUST BE INTERPRETED WITH RESPECT TO BLOOD DRAWING ARTIFACT OR DILUTION ERROR OF ANTICOAGULANT AT THE TIME OF SAMPLING. Performed By: #### 5 6101, [id number] #### [facility] [address] RBC'S 2 UNITSon 07-07-2019 CROSSMATCH INTERP 1 COMP Normal [facility] Comment on above: Performed By: #### 8 6002 #### [facility] [address] [facility]. [address] CROSSMATCH INTERP 2 COMP Normal [facility] Comment on above: Performed By: #### 8 6002 #### [facility] [address] PRODUCT CODE 1 E0336 Normal [facility] Comment on above: Performed By: #### 8 6002 #### [facility] [address] [facility] [place] [address], [facility] PRODUCT CODE 2 E0678 Normal [facility] Comment on above: Performed By: #### 8 6002 #### [facility] [address] [place] [address], [facility] PRODUCT STATUS 1 RE Normal [facility] Comment on above: Result Comment: Resu lt changed by IF on 07/11/2019 09:02. The previous value was XM. Performed By: #### 8 6002 #### [facility] [address] [place] [address], [facility] PRODUCT STATUS 2 RE Normal The [facility] Comment on above: Result Comment: Resu lt changed by IF on 07/11/2019 09:02. The previous value was XM. Performed By: #### 8 6002 #### [facility] [address] UNIT ABO 1 O Normal [facility] Comment on above: Performed By: #### 8 6002 #### [facility] [address] [facility]. [address] UNIT ABO 2 O Normal [facility] Comment on above: Performed By: #### 8 6002 #### [facility] [address] UNIT ID 1 [id number] Normal [facility] Comment on above: Performed By: #### 8 6002 #### [facility] [address] [facility]. [address] UNIT ID 2 [id number] Normal [facility] Comment on above: Performed By: #### 8 6002 #### [facility] [address] [place] [address], [facility] UNIT RH 1 Negative Normal [facility] Comment on above: Performed By: #### 8 6002 #### [facility] [address] [place] [address], [facility] UNIT RH 2 Negative Normal [facility] Comment on above: Performed By: #### 8 6002 #### [facility] [address] [place] [address], [facility] TYPE AND SCREENon 07-07-2019 ABO INTERPRETATION O Normal [facility] Comment on above: Performed By: #### 6 2586 #### [facility] [address] [place] [address], [facility] RH INTERPRETATION Negative Normal [facility] Comment on above: Performed By: #### 6 2586 #### [facility] [address] [place] [address], [facility] XR KNEE RT 4V OR >on 019 XR KNEE RT 4V OR > Patient: LINDA ALVARADO Exam Date: 07/06/2019 : 1975 Gender:F Ordering : LISHA HUSAIN Admission #: [id number] Family : Order #: [id number] CLICK HERE TO VIEW EXAM RADIOLOGY REPORT [...] the lateral tibial plateau. Dictated by: Eben Crowley M.D. on 07/07/2019 at 07:25 Approved by: Eben Crowley M.D. on 07/07/2019 at 07:26 Normal [facility] ECHOCARDIO M/2D COMPLETEon 1 ECHOCARDIO M/2D COMPLETE Patient: LINDA ALVARADO Exam Date: 06/08/2019 : 1975 Gender:F Ordering : DR GITA GARCIA PA Admission #: [id number] Family : Order #: [id number] CLICK HERE TO VIEW EXAM ECHOCARDIOGRAM REPORT [...] Area(A4C): 17.60 cm2 Left Atrium Systolic Volume(A2C): 39899 mm3 Left Atrium Systolic Volume(A4C): 52299 mm3 Mitral Valve MV E to A [...] M.D. on 06/09/2019 at 13:09 Normal [facility] CBC AUTO DIFFon 05-23-2019 Basophils (Bld) [#/Vol] 0.1 103/ul Normal 0.0-0.1 [facility] Comment on above: Performed By: #### L IPA, CMP #### [facility] [address] [place] [address] Jose Gita Basophils/100 WBC (Bld) 1.4 % Normal 0.2-2.0 [facility] Comment on above: Performed By: #### L IPA, CMP #### [facility] [address] [place] [address] Jose Gita Eosinophils (Bld) [#/Vol] 0.3 103/ul Normal 0.0-0.7 [facility] Comment on above: Performed By: #### L IPA, CMP #### [facility] [address] [place] [address] Jose Gita Eosinophils/100 WBC (Bld) 2.9 % Normal 0.9-7.0 [facility] Comment on above: Performed By: #### L IPA, CMP #### [facility] [address] [place] [address] Jose Gita Erythrocyte distribution width (RBC) [Ratio] 13.5 % Normal 11.0-15.0 [facility] Comment on above: Performed By: #### L IPA, CMP #### [facility] [address] [place] [address] Jose Gita Hematocrit (Bld) [Volume fraction] 37.3 % Normal 36.0-48.0 [facility] Comment on above: Performed By: #### L IPA, CMP #### [facility] [address] [place] [address] Jose Gita Hemoglobin (Bld) [Mass/Vol] 12.5 g/dL Normal 12.0-16.0 [facility] Comment on above: Performed By: #### L IPA, CMP #### [facility] [address] [place] [address] Jose Gita IG # 0.05 10e3/ul Critically high 0.00-0.03 [facility] Comment on above: Performed By: #### L IPA, CMP #### [facility] [address] [place], [place] [address] Josetripp Pelayo IG % 0.6 % Critically high 0.0-0.5 [facility] Comment on above: Performed By: #### L IPA, CMP #### [facility] [address] [place], [place] [id number] Jose Gita Lymphocytes (Bld) [#/Vol] 2.4 103/ul Normal 1.2-3.8 [facility] Comment on above: Performed By: #### L IPA, CMP #### [facility] [address] [place], [place] [id number] Jose Gita Lymphocytes/100 WBC (Bld) 27.2 % Normal 20.5-60.0 [facility] Comment on above: Performed By: #### L IPA, CMP #### [facility] [address] [place] [address] Jose Pelayo MANUAL DIFF REQ NO Normal [facility] Comment on above: Performed By: #### L IPA, CMP #### [facility] [address] [place], [place] [id number] Jose Gita MCH (RBC) [Entitic mass] 32.1 pg Normal 26.7-34.0 [facility] Comment on above: Performed By: #### L IPA, CMP #### [facility] [address] [place], [place] [id number] Josetripp Cabanen MCHC (RBC) [Mass/Vol] 33.5 g/dL Normal 29.9-35.2 [facility] Comment on above: Performed By: #### L IPA, CMP #### [facility] [address] [place], [place] [address] Jose Gita MCV (RBC) [Entitic vol] 95.6 fL Normal 81.0-99.0 [facility] Comment on above: Performed By: #### L IPA, CMP #### [facility] [address] [place], [place] [address] Jose Gita Monocytes (Bld) [#/Vol] 0.8 103/ul Normal 0.3-0.8 [facility] Comment on above: Performed By: #### L IPA, CMP #### [facility] [address] [place], [place] [address] Jose Gita Monocytes/100 WBC (Bld) 8.7 % Normal 1.7-12.0 [facility] Comment on above: Performed By: #### L IPA, CMP #### [facility] [address] [place] [id number] Jose Gita Neutrophils (Bld) [#/Vol] 5.2 103/ul Normal 1.4-6.5 [facility] Comment on above: Performed By: #### L IPA, CMP #### [facility] [address] [place], [place] [address] Jose Gita Neutrophils/100 WBC (Bld) 59.2 % Normal 43.0-75.0 [facility] Comment on above: Performed By: #### L IPA, CMP #### [facility] [address] [place], [place] [address] Jose Gita Platelet mean volume (Bld) [Entitic vol] 8.8 fL Critically low 9.5-13.5 [facility] Comment on above: Performed By: #### L IPA, CMP #### [facility] [address] [place], [place] [address] Jose Gita Platelets (Bld) [#/Vol] 401 103/ul Normal 150-450 [facility] Comment on above: Performed By: #### L IPA, CMP #### [facility] [address] [place] [address] Jose Gita RBC (Bld) [#/Vol] 3.90 106/ul Critically low 4.20-5.40 [facility] Comment on above: Performed By: #### L IPA, CMP #### [facility] [address] [place] [address] Jose Gita WBC (Bld) [#/Vol] 8.7 103/ul Normal 4.0-11.0 [facility] Comment on above: Performed By: #### L IPA, CMP #### [facility] [address] [place], [place] [address] Josetripp Pelayo D-DIMERon 05-23-2019 D-DIMER COMMENTS SEE BELOW Normal [facility] Comment on above: Result Comment: Incr eases [...] Performed By: #### L IPA, CMP #### [facility] [address] [place], [place] [address] Josetripp Pelayo Fibrin D-dimer FEU IA (Bld) [Mass/Vol] 0.19 ug/mL Normal 0.19-0.50 [facility] Comment on above: Performed By: #### L IPA, CMP #### [facility] [address] [place], [place] [address] Jose Gita PREG HCG QUALon 05-23-2019 , QUAL Negative Normal NEGATIVE [facility] Comment on above: Performed By: #### L IPA, CMP #### [facility] [address] [place], [place] [address] Josetripp Pelayo PROF CHEM 8 (BAS METB)on Anion gap [Moles/Vol] 10.9 mmol/L Normal [facility] Comment on above: Performed By: #### L IPA, CMP #### [facility] [address] [place], [place] [address] Jose Gita Calcium [Mass/Vol] 9.3 mg/dL Normal 8.4-10.2 [facility] Comment on above: Performed By: #### L IPA, CMP #### [facility] [address] [place], [place] [address] Jose Gita Chloride [Moles/Vol] 104 mmol/L Normal 98-107 [facility] Comment on above: Performed By: #### L IPA, CMP #### [facility] [address] [place] [address] Jose Gita CO2 [Moles/Vol] 28.7 mmol/L Normal 22.0-30.0 [facility] Comment on above: Performed By: #### L IPA, CMP #### [facility] [address] [place] [address] Jose Gita Creatinine [Mass/Vol] 0.91 mg/dL Normal 0.52-1.04 [facility] Comment on above: Performed By: #### L IPA, CMP #### [facility] [address] [place] [id number] Jose Gita EGFR-AF [place] >60 Normal >=60 [facility] Comment on above: Performed By: #### L IPA, CMP #### [facility] [address] [place] [address] Jose Gita EGFR-NON AF [place] >60 Normal >=60 [facility] Comment on above: Performed By: #### L IPA, CMP #### [facility] [address] [place] [address] Jose Gita Glucose [Mass/Vol] 97 mg/dL Normal 74-106 [facility] Comment on above: Performed By: #### L IPA, CMP #### [facility] [address] [place] [address] Jose Gita Potassium [Moles/Vol] 3.6 mmol/L Normal 3.4-5.0 [facility] Comment on above: Performed By: #### L IPA, CMP #### [facility] [address] [place] [address] Jose Gita Sodium [Moles/Vol] 140 mmol/L Normal 137-145 [facility] Comment on above: Performed By: #### L IPA, CMP #### [facility] [address] [place] [address] Jose Gita Urea nitrogen [Mass/Vol] 10.0 mg/dL Normal 7.0-17.0 [facility] Comment on above: Performed By: #### L IPA, CMP #### [facility] [address] [place], [place] [address] Jose Gita Urea nitrogen/Creatinine [Mass ratio] 11.0 mg/mg Normal [facility] Comment on above: Performed By: #### L IPA, CMP #### [facility] [address] [place] [address] Josetripp Pelayo PROTIMEon 05-23-2019 INR Coag (PPP) [Relative time] 1.03 {INR} Normal [facility] Comment on above: Performed By: #### L IPA, CMP #### [facility] [address] [place], [place] [phone] Jose Gita PT Coag (PPP) [Time] SEE BELOW Normal [facility] Comment on above: Result Comment: SELENE RED INR: 2.0 - 3.0 CONDITIONS NOT LISTED BELOW 2.5 - 3.5 FOR PROSTHETIC HEART VALVE REPLACEMENT 2.5 - 3.5 RECURRENT THROMBOSIS Performed By: #### L IPA, CMP #### [facility] [address] [place], [place] [id number] Jose Gita PT Coag (PPP) [Time] PLEASE NOTE: NORMAL RANGE CHANGE 05-20-2014 DUE TO REAGENT LOT CHANGE [facility] Comment on above: Performed By: #### L IPA, CMP #### [facility] [address] [place], [place] [phone] Jose Gita PT Coag (PPP) [Time] 10.7 s Normal 9.0-11.6 [facility] Comment on above: Performed By: #### L IPA, CMP #### [facility] [address] [place], [place] [address] Jose Gita PTTon 05-23-2019 aPTT Coag (Bld) [Time] 27.8 s Normal 22.3-36.2 [facility] Comment on above: Performed By: #### L IPA, CMP #### [facility] [address] [place], [place] [address] Jose Gita aPTT Coag (Bld) [Time] PLEASE NOTE: NORMAL RANGE CHANGE 07-27-2015 DUE TO REAGENT LOT CHANGE Normal [facility] Comment on above: Performed By: #### L IPA, CMP #### [facility] [address] [place] [address] Jose Gita CBC AUTO DIFFon 12-28-2018 Basophils (Bld) [#/Vol] 0.1 103/ul Normal 0.0-0.1 [facility] Comment on above: Performed By: #### C BC #### [facility] [address] [place], [place] [address] Jose Gita Basophils/100 WBC (Bld) 1.2 % Normal 0.2-2.0 [facility] Comment on above: Performed By: #### C BC #### [facility] [address] [place], [place] [address] Jose Gita Eosinophils (Bld) [#/Vol] 0.2 103/ul Normal 0.0-0.7 [facility] Comment on above: Performed By: #### C BC #### [facility] [address] [place] [address] Jose Gita Eosinophils/100 WBC (Bld) 5.9 % Normal 0.9-7.0 [facility] Comment on above: Performed By: #### C BC #### [facility] [address] [place], [place] [address] Jose Gita Erythrocyte distribution width (RBC) [Ratio] 13.7 % Normal 11.0-15.0 [facility] Comment on above: Performed By: #### C BC #### [facility] [address] [place], [place] [address] Jose Gita Hematocrit (Bld) [Volume fraction] 36.3 % Normal 36.0-48.0 [facility] Comment on above: Performed By: #### C BC #### [facility] [address] [place], [place] [address] Jose Gita Hemoglobin (Bld) [Mass/Vol] 12.1 g/dL Normal 12.0-16.0 [facility] Comment on above: Performed By: #### C BC #### [facility] [address] [place] [address] Jose Gita IG # 0.01 10e3/ul Normal 0.00-0.03 [facility] Comment on above: Performed By: #### C BC #### [facility] [address] [place] [id number] Jose Gita IG % 0.2 % Normal 0.0-0.5 [facility] Comment on above: Performed By: #### C BC #### [facility] [address] [place], [place] [address] Jose Gita Lymphocytes (Bld) [#/Vol] 1.2 103/ul Normal 1.2-3.8 [facility] Comment on above: Performed By: #### C BC #### [facility] [address] [place], [place] [address] Jose Gita Lymphocytes/100 WBC (Bld) 30.3 % Normal 20.5-60.0 [facility] Comment on above: Performed By: #### C BC #### [facility] [address] [place], [place] [address] Jose Gita MANUAL DIFF REQ NO Normal [facility] Comment on above: Performed By: #### C BC #### [facility] [address] [place], [place] [address] Jose Gita MCH (RBC) [Entitic mass] 32.2 pg Normal 26.7-34.0 [facility] Comment on above: Performed By: #### C BC #### [facility] [address] [place], [place] [address] Jose Gita MCHC (RBC) [Mass/Vol] 33.3 g/dL Normal 29.9-35.2 [facility] Comment on above: Performed By: #### C BC #### [facility] [address] [place], [place] [id number] Jose Gita MCV (RBC) [Entitic vol] 96.5 fL Normal 81.0-99.0 [facility] Comment on above: Performed By: #### C BC #### [facility] [address] [place], [place] [id number] Jose Gita Monocytes (Bld) [#/Vol] 0.4 103/ul Normal 0.3-0.8 [facility] Comment on above: Performed By: #### C BC #### [facility] [address], [place] [address] Jose Gita Monocytes/100 WBC (Bld) 9.4 % Normal 1.7-12.0 [facility] Comment on above: Performed By: #### C BC #### [facility] [address], [place] [address] Jose Gita Neutrophils (Bld) [#/Vol] 2.2 103/ul Normal 1.4-6.5 [facility] Comment on above: Performed By: #### C BC #### [facility] [address], [place] [address] Jose Gita Neutrophils/100 WBC (Bld) 53.0 % Normal 43.0-75.0 [facility] Comment on above: Performed By: #### C BC #### [facility] [address] [place] [address] Josetripp Pelayo Platelet mean volume (Bld) [Entitic vol] 8.6 fL Critically low 9.5-13.5 [facility] Comment on above: Performed By: #### C BC #### [facility] [address], [place] [address] Jose Gita Platelets (Bld) [#/Vol] 279 103/ul Normal 150-450 [facility] Comment on above: Performed By: #### C BC #### [facility] [address] [place] [address] Jose Gita RBC (Bld) [#/Vol] 3.76 106/ul Critically low 4.20-5.40 [facility] Comment on above: Performed By: #### C BC #### [facility] [address], [place] [address] Jose Gita WBC (Bld) [#/Vol] 4.1 103/ul Normal 4.0-11.0 [facility] Comment on above: Performed By: #### C BC #### [facility] [address], [place] [address] Jose Pelayo PROF CHEM 8 (BAS METB)on Anion gap [Moles/Vol] 10.6 mmol/L Normal [facility] Comment on above: Performed By: #### B MP #### [facility] [address] [address] Jose Gita Calcium [Mass/Vol] 8.1 mg/dL Critically low 8.4-10.2 [facility] Comment on above: Performed By: #### B MP #### [facility] [address] [address] Jose Gita Chloride [Moles/Vol] 111 mmol/L Critically high 98-107 [facility] Comment on above: Performed By: #### B MP #### [facility] [address] [address] Jose Gita CO2 [Moles/Vol] 24.7 mmol/L Normal 22.0-30.0 [facility] Comment on above: Performed By: #### B MP #### [facility] [address] [place] [address] Jose Gita Creatinine [Mass/Vol] 0.80 mg/dL Normal 0.52-1.04 [facility] Comment on above: Performed By: #### B MP #### [facility] [address] [place] [address] Jose Gita EGFR-AF PAPUA [place] GUINEAN >60 Normal >=60 [facility] Comment on above: Performed By: #### B MP #### [facility] [address] [place] [address] Jose Gita EGFR-NON AF PAPUA [place]AN >60 Normal >=60 [facility] Comment on above: Performed By: #### B MP #### [facility] [address] [place] [address] Jose Gita Glucose [Mass/Vol] 93 mg/dL Normal 74-106 [facility] Comment on above: Performed By: #### B MP #### [facility] [address] [place] [address] Jose Gita Potassium [Moles/Vol] 4.3 mmol/L Normal 3.4-5.0 [facility] Comment on above: Performed By: #### B MP #### [facility] [address] [place] [address] Jose Gita Sodium [Moles/Vol] 142 mmol/L Normal 137-145 [facility] Comment on above: Performed By: #### B MP #### [facility] [address] [place], [place] [phone] Jose Gita Urea nitrogen [Mass/Vol] 6.0 mg/dL Critically low 7.0-17.0 [facility] Comment on above: Performed By: #### B MP #### [facility] [address] [place], [place] [phone] Jose Gita Urea nitrogen/Creatinine [Mass ratio] 7.5 mg/mg Normal [facility] Comment on above: Performed By: #### B MP #### [facility] [address] [place], [place] [phone] Jose Gita CBC AUTO DIFFon 12-27-2018 Basophils (Bld) [#/Vol] 0.0 103/ul Normal 0.0-0.1 [facility] Comment on above: Performed By: #### C BC #### [facility] [address] [place] [address] Jose Gita Basophils/100 WBC (Bld) 0.4 % Normal 0.2-2.0 [facility] Comment on above: Performed By: #### C BC #### [facility] [address] [place] [id number] Jose Gita Eosinophils (Bld) [#/Vol] 0.1 103/ul Normal 0.0-0.7 [facility] Comment on above: Performed By: #### C BC #### [facility] [address] [place] [address] Jose Gita Eosinophils/100 WBC (Bld) 1.3 % Normal 0.9-7.0 [facility] Comment on above: Performed By: #### C BC #### [facility] [address] [place] [address] Jose Gita Erythrocyte distribution width (RBC) [Ratio] 13.4 % Normal 11.0-15.0 [facility] Comment on above: Performed By: #### C BC #### [facility] [address] [id number] Jose Gita Hematocrit (Bld) [Volume fraction] 37.0 % Normal 36.0-48.0 [facility] Comment on above: Performed By: #### C BC #### [facility] [address] [place], [place] [phone] Jose Gita Hemoglobin (Bld) [Mass/Vol] 12.9 g/dL Normal 12.0-16.0 [facility] Comment on above: Result Comment: repe ated slide reviewed ts Performed By: #### C BC #### [facility] [address] [place], [place] [phone] Jose Gita IG # 0.02 10e3/ul Normal 0.00-0.03 [facility] Comment on above: Performed By: #### C BC #### [facility] [address] [place] [address] Jose Gita IG % 0.3 % Normal 0.0-0.5 [facility] Comment on above: Performed By: #### C BC #### [facility] [address] [place], [place] [phone] Jose Gita Lymphocytes (Bld) [#/Vol] 0.7 103/ul Critically low 1.2-3.8 [facility] Comment on above: Performed By: #### C BC #### [facility] [address] [place], [place] [phone] Jose Gita Lymphocytes/100 WBC (Bld) 9.2 % Critically low 20.5-60.0 [facility] Comment on above: Performed By: #### C BC #### [facility] [address] [place], [place] [phone] Jose Gita MANUAL DIFF REQ NO Normal [facility] [place] [facility] Comment on above: Performed By: #### C BC #### [facility] [address] [place], [place] [phone] Jose Gita MCH (RBC) [Entitic mass] 32.4 pg Normal 26.7-34.0 [facility] Comment on above: Performed By: #### C BC #### [facility] [address], [place] [address] Jose Gita MCHC (RBC) [Mass/Vol] 34.9 g/dL Normal 29.9-35.2 [facility] Comment on above: Performed By: #### C BC #### [facility] [address], [place] [address] Jose Gita MCV (RBC) [Entitic vol] 93.0 fL Normal 81.0-99.0 [facility] Comment on above: Performed By: #### C BC #### [facility] [address], [place] [address] Jose Gita Monocytes (Bld) [#/Vol] 0.3 103/ul Normal 0.3-0.8 [facility] Comment on above: Performed By: #### C BC #### [facility] [address] [place] [address] Jose Gita Monocytes/100 WBC (Bld) 3.6 % Normal 1.7-12.0 [facility] Comment on above: Performed By: #### C BC #### [facility] [address] [place] [address] Jose Gita Neutrophils (Bld) [#/Vol] 6.4 103/ul Normal 1.4-6.5 [facility] Comment on above: Performed By: #### C BC #### [facility] [address] [place] [address] Jose Gita Neutrophils/100 WBC (Bld) 85.2 % Critically high 43.0-75.0 [facility] Comment on above: Performed By: #### C BC #### [facility] [address], [place] [address] Jose Gita Platelet mean volume (Bld) [Entitic vol] 8.7 fL Critically low 9.5-13.5 [facility] Comment on above: Performed By: #### C BC #### [facility] [address], [place] [address] Jose Gita Platelets (Bld) [#/Vol] 401 103/ul Normal 150-450 [facility] Comment on above: Performed By: #### C BC #### [facility] [address] [place], [place] [phone] Jose Pelayo RBC (Bld) [#/Vol] 3.98 106/ul Critically low 4.20-5.40 [facility] Comment on above: Performed By: #### C BC #### [facility] [address] [place], [place] [phone] Jose Pelayo WBC (Bld) [#/Vol] 7.5 103/ul Normal 4.0-11.0 [facility] Comment on above: Performed By: #### C BC #### [facility] [address] [place], [place] [address] Jose Pelayo POTASSIUMon 12-27-2018 Potassium [Moles/Vol] 3.9 mmol/L Normal 3.4-5.0 [facility] Comment on above: Performed By: #### K #### [facility] [address] [place], [place] [address] Jose Pelayo PROF 14(COMP METB)on 019 Albumin [Mass/Vol] 3.2 g/dL Critically low 3.5-5.0 [facility] Comment on above: Performed By: #### C MP #### [facility] [address] [place], [place] [address] Jose Pelayo Albumin/Globulin [Mass ratio] 1.1 {ratio} Normal [facility] Comment on above: Performed By: #### C MP #### [facility] [address] [place], [place] [address] Jose Gita ALP [Catalytic activity/Vol] 50 U/L Normal 38-126 [facility] Comment on above: Performed By: #### C MP #### [facility] [address] [place], [place] [address] Jose Pelayo ALT [Catalytic activity/Vol] 60 U/L Critically high 9-52 [facility] Comment on above: Performed By: #### C MP #### [facility] [address] [place], [place] [phone] Josetripp Pelayo Anion gap [Moles/Vol] 8.7 mmol/L Normal [facility] Comment on above: Performed By: #### C MP #### [facility] [address] [phone] Jose Gita AST [Catalytic activity/Vol] 41 U/L Critically high 14-36 [facility] Comment on above: Performed By: #### C MP #### [facility] [address] [phone] Jose Gita Bilirubin Ql (U) 0.5 mg/dL Normal 0.2-1.3 [facility] Comment on above: Performed By: #### C MP #### [facility] [address] [address] Jose Gita Calcium [Mass/Vol] 7.7 mg/dL Critically low 8.4-10.2 [facility] Comment on above: Performed By: #### C MP #### [facility] [address] [address] Jose Gita Chloride [Moles/Vol] 107 mmol/L Normal 98-107 [facility] Comment on above: Performed By: #### C MP #### [facility] [address] [phone] Jose Gita CO2 [Moles/Vol] 27.1 mmol/L Normal 22.0-30.0 [facility] Comment on above: Performed By: #### C MP #### [facility] [address] [address] Jose Gita Creatinine [Mass/Vol] 0.93 mg/dL Normal 0.52-1.04 [facility] Comment on above: Performed By: #### C MP #### [facility] [address] [phone] Jose Gita EGFR-AF PAPUA NEW GUINEAN >60 Normal >=60 [facility] Comment on above: Performed By: #### C MP #### [facility] [address] [phone] Jose Gita EGFR-NON AF PAPUA [place] >60 Normal >=60 [facility] Comment on above: Performed By: #### C MP #### [facility] [address], [place] [address] Jose Gita Globulin (S) [Mass/Vol] 3.0 g/dL Normal [facility] Comment on above: Performed By: #### C MP #### [facility] [address] [phone] Jose Gita Glucose [Mass/Vol] 114 mg/dL Critically high 74-106 [facility] Comment on above: Performed By: #### C MP #### [facility] [address] [phone] Jose Gita Potassium [Moles/Vol] 2.8 mmol/L Critically low 3.4-5.0 [facility] Comment on above: Result Comment: test repeated critical value verified Performed By: #### C MP #### [facility] [address] [phone] Jose Gita Protein [Mass/Vol] 6.2 g/dL Normal 6.1-8.2 [facility] Comment on above: Performed By: #### C MP #### [facility] [address] [phone] Jose Gita Sodium [Moles/Vol] 141 mmol/L Normal 137-145 [facility] Comment on above: Performed By: #### C MP #### [facility] [address] [phone] Jose Gita Urea nitrogen [Mass/Vol] 16.0 mg/dL Normal 7.0-17.0 [facility] Comment on above: Performed By: #### C MP #### [facility] [address] [phone] Jose Gita Urea nitrogen/Creatinine [Mass ratio] 17.2 mg/mg Normal [facility] Comment on above: Performed By: #### C MP #### [facility] [address] [phone] Jose Gita XR ABD FLAT UP/PA Natalya 12-27 XR ABD FLAT UP/PA CH Patient: LINDA ALVARADO Exam Date: 12/26/2018 : 1975 Gender:F Ordering : DR. NICHOLAS BOLTON . Admission #: [id number] Family : Order #: [id number] CLICK HERE TO VIEW EXAM RADIOLOGY REPORT [...] M.D. on 12/27/2018 at 07:37 Normal [facility] CBC AUTO DIFFon 12-26-2018 Basophils (Bld) [#/Vol] 0.1 103/ul Normal 0.0-0.1 [facility] Comment on above: Performed By: #### C BC #### [facility] [address] [place] [address] Jose Gita Basophils/100 WBC (Bld) 0.7 % Normal 0.2-2.0 [facility] Comment on above: Performed By: #### C BC #### [facility] [address], [place] [address] Jose Gita Eosinophils (Bld) [#/Vol] 0.3 103/ul Normal 0.0-0.7 [facility] Comment on above: Performed By: #### C BC #### [facility] [address], [place] [address] Jose Gita Eosinophils/100 WBC (Bld) 2.2 % Normal 0.9-7.0 [facility] Comment on above: Performed By: #### C BC #### [facility] [address], [place] [address] Jose Gita Erythrocyte distribution width (RBC) [Ratio] 13.5 % Normal 11.0-15.0 [facility] Comment on above: Performed By: #### C BC #### [facility] [address] [phone] Jose Gita Hematocrit (Bld) [Volume fraction] 46.0 % Normal 36.0-48.0 [facility] Comment on above: Performed By: #### C BC #### [facility] [address] [phone] Jose Gita Hemoglobin (Bld) [Mass/Vol] 15.7 g/dL Normal 12.0-16.0 [facility] Comment on above: Performed By: #### C BC #### [facility] [address] [id number] Jose Gita IG # 0.05 10e3/ul Critically high 0.00-0.03 [facility] Comment on above: Performed By: #### C BC #### [facility] [address] [id number] Jose Gita IG % 0.4 % Normal 0.0-0.5 [facility] Comment on above: Performed By: #### C BC #### [facility] [address] [phone] Jose Gita Lymphocytes (Bld) [#/Vol] 1.0 103/ul Critically low 1.2-3.8 [facility] Comment on above: Performed By: #### C BC #### [facility] [address] [place], [place] [address] Jose Gita Lymphocytes/100 WBC (Bld) 8.8 % Critically low 20.5-60.0 [facility] Comment on above: Performed By: #### C BC #### [facility] [address] [place], [place] [address] Josetripp Cabanen MANUAL DIFF REQ NO Normal [facility] Comment on above: Performed By: #### C BC #### [facility] [address] [place], [place] [address] Josetripp Cabanen MCH (RBC) [Entitic mass] 31.7 pg Normal 26.7-34.0 [facility] Comment on above: Performed By: #### C BC #### [facility] [address] [place], [place] [address] Josetripp Pelayo MCHC (RBC) [Mass/Vol] 34.1 g/dL Normal 29.9-35.2 [facility] Comment on above: Performed By: #### C BC #### [facility] [address], [place] [address] Josetripp Pelayo MCV (RBC) [Entitic vol] 92.9 fL Normal 81.0-99.0 [facility] Comment on above: Performed By: #### C BC #### [facility] [address] [phone] Jose Gita Monocytes (Bld) [#/Vol] 0.3 103/ul Normal 0.3-0.8 [facility] Comment on above: Performed By: #### C BC #### [facility] [address] [place], [place] [address] Jose Gita Monocytes/100 WBC (Bld) 2.8 % Normal 1.7-12.0 [facility] Comment on above: Performed By: #### C BC #### [facility] [address] [place], [place] [address] Jose Gita Neutrophils (Bld) [#/Vol] 9.8 103/ul Critically high 1.4-6.5 [facility] Comment on above: Performed By: #### C BC #### [facility] [address] [place], [place] [address] Jose Gita Neutrophils/100 WBC (Bld) 85.1 % Critically high 43.0-75.0 [facility] Comment on above: Performed By: #### C BC #### [facility] [address] [place], [place] [address] Jose Gita Platelet mean volume (Bld) [Entitic vol] 8.6 fL Critically low 9.5-13.5 [facility] Comment on above: Performed By: #### C BC #### [facility] [address] [place], [place] [address] Jose Gita Platelets (Bld) [#/Vol] 543 103/ul Critically high 150-450 [facility] Comment on above: Performed By: #### C BC #### [facility] [address] [place] [address] Josetripp Pelayo RBC (Bld) [#/Vol] 4.95 106/ul Normal 4.20-5.40 [facility] Comment on above: Performed By: #### C BC #### [facility] [address] [place], [place] [address] Josetripp Pelayo WBC (Bld) [#/Vol] 11.5 103/ul Critically high 4.0-11.0 [facility] Comment on above: Performed By: #### C BC #### [facility] [address] [place], [place] [address] Josetripp Pelayo LIPASEon 12-26-2018 Lipase [Catalytic activity/Vol] 186.0 U/L Normal 23.0-300.0 [facility] Comment on above: Performed By: #### L IPA, CMP #### [facility] [address] [place], [place] [address] Jose Pelayo PROF 14(COMP METB)on 019 Albumin [Mass/Vol] 4.5 g/dL Normal 3.5-5.0 [facility] Comment on above: Performed By: #### L IPA, CMP #### [facility] [address] [place], [place] [address] Josetripp Pelayo Albumin/Globulin [Mass ratio] 1.2 {ratio} Normal [facility] Comment on above: Performed By: #### L IPA, CMP #### [facility] [address] [place], [place] [address] Jose Gita ALP [Catalytic activity/Vol] 65 U/L Normal 38-126 [facility] Comment on above: Performed By: #### L IPA, CMP #### [facility] [address] [place], [place] [address] Jose Gita ALT [Catalytic activity/Vol] 75 U/L Critically high 9-52 [facility] Comment on above: Performed By: #### L IPA, CMP #### [facility] [address] [place], [place] [address] Jose Gita Anion gap [Moles/Vol] 10.7 mmol/L Normal [facility] Comment on above: Performed By: #### L IPA, CMP #### [facility] [address] [address] Jose Gita AST [Catalytic activity/Vol] 51 U/L Critically high 14-36 [facility] Comment on above: Performed By: #### L IPA, CMP #### [facility] [address] [address] Jose Gita Bilirubin Ql (U) 0.6 mg/dL Normal 0.2-1.3 [facility] Comment on above: Performed By: #### L IPA, CMP #### [facility] [address] [address] Jose Gita Calcium [Mass/Vol] 9.3 mg/dL Normal 8.4-10.2 [facility] Comment on above: Performed By: #### L IPA, CMP #### [facility] [address] [address] Jose Gita Chloride [Moles/Vol] 103 mmol/L Normal 98-107 [facility] Comment on above: Performed By: #### L IPA, CMP #### [facility] [address] [address] Jose Gita CO2 [Moles/Vol] 28.8 mmol/L Normal 22.0-30.0 [facility] Comment on above: Performed By: #### L IPA, CMP #### [facility] [address] [address] Jose Gita Creatinine [Mass/Vol] 1.03 mg/dL Normal 0.52-1.04 [facility] Comment on above: Performed By: #### L IPA, CMP #### [facility] [address] [id number] Jose Gita EGFR-AF PAPUA NEW GUINEAN >60 Normal >=60 [facility] Comment on above: Performed By: #### L IPA, CMP #### [facility] [address] [address] Jose Gita EGFR-NON AF PAPUA [place] 59 mL/min/1.73m2 Critically low >=60 [facility] Comment on above: Performed By: #### L IPA, CMP #### [facility] [address], [place] [address] Jose Gita Globulin (S) [Mass/Vol] 3.7 g/dL Normal [facility] Comment on above: Performed By: #### L IPA, CMP #### [facility] [address], [place] [address] Jose Igta Glucose [Mass/Vol] 114 mg/dL Critically high 74-106 [facility] Comment on above: Performed By: #### L IPA, CMP #### [facility] [address], [place] [address] Jose Gita Potassium [Moles/Vol] 3.5 mmol/L Normal 3.4-5.0 [facility] Comment on above: Performed By: #### L IPA, CMP #### [facility] [address] [place], [place] [address] Jose Gita Protein [Mass/Vol] 8.2 g/dL Normal 6.1-8.2 [facility] Comment on above: Performed By: #### L IPA, CMP #### [facility] [address] [id number] Jose Gita Sodium [Moles/Vol] 139 mmol/L Normal 137-145 [facility] Comment on above: Performed By: #### L IPA, CMP #### [facility] [address] [place] [address] Jose Gita Urea nitrogen [Mass/Vol] 15.0 mg/dL Normal 7.0-17.0 [facility] Comment on above: Performed By: #### L IPA, CMP #### [facility] [address], [place] [address] Jose Gita Urea nitrogen/Creatinine [Mass ratio] 14.6 mg/mg Normal [facility] Comment on above: Performed By: #### L IPA, CMP #### [facility] [address], [place] [address] Jose Gita Vital Signs Date Time Vital Sign Value Performing Clinician Facility 08-28-2024 11:19-0500 Body height 152.4 cm Lenny Snow DO Work Phone: [facility] 08-28-2024 11:19-0500 Body mass index (BMI) [Ratio] 36.72 kg/m2 Lenny Snow DO Work Phone: [facility] 08-28-2024 11:19-0500 Body weight 85.28 kg Lenny Snow DO Work Phone: [facility] 08-28-2024 11:19-0500 Diastolic blood pressure 74 mm[Hg] Lenny Snow DO Work Phone: [facility] 08-28-2024 11:19-0500 Systolic blood pressure 132 mm[Hg] Lenny Snow DO Work Phone: [facility] 07-16-2024 15:50-0500 Body height 151.77 cm Elver Mendenhall II Work Phone: [facility] 07-16-2024 15:50-0500 Body mass index (BMI) [Ratio] 37.6 kg/m2 Elver Mendenhall II Work Phone: [facility] 07-16-2024 15:50-0500 Body weight 86.63 kg Elver Mendenhall II Work [facility] [facility] 07-16-2024 15:50-0500 Diastolic blood pressure 86 mm[Hg] Elver Mendenhall II Work Phone: [facility] 07-16-2024 15:50-0500 Heart rate 97 /min Elver Mendenhall II Work Phone: [facility] 07-16-2024 15:50-0500 SaO2% (BldA) [Mass fraction] 96 % Elver Mendenhall II Work Phone: [facility] 07-16-2024 15:50-0500 Systolic blood pressure 156 mm[Hg] Elver Mendenhall II Work Phone: [facility] 07-02-2024 15:34-0400 Body height 152.4 cm Trever Barnard DPM Work Phone: [facility] 07-02-2024 15:34-0400 Body mass index (BMI) [Ratio] 38.28 kg/m2 Trever Barnard DPM Work Phone: [facility] 07-02-2024 15:34-0400 Body weight 88.91 kg Trever Barnard DPM Work Phone: [facility] 07-02-2024 15:34-0400 Diastolic blood pressure 77 mm[Hg] Trever Barnard DPM Work Phone: [facility] 07-02-2024 15:34-0400 Heart rate 81 /min Trever Barnard DPM Work Phone: [facility] 07-02-2024 15:34-0400 Systolic blood pressure 124 mm[Hg] Trever Barnard DPM Work Phone: [facility] 06-03-2024 15:39-0400 Body height 152.4 cm Gita Hemmer PA Work Phone: [facility] 06-03-2024 15:39-0400 Body mass index (BMI) [Ratio] 38.28 kg/m2 Gita Hemmer PA Work Phone: [facility] 06-03-2024 15:39-0400 Body weight 88.91 kg Gita Hemmer PA Work Phone: [facility] 06-03-2024 15:39-0400 Diastolic blood pressure 64 mm[Hg] Gita Hemmer PA Work Phone: [facility] 06-03-2024 15:39-0400 Heart rate 85 /min Gita Hemmer PA Work Phone: [facility] 06-03-2024 15:39-0400 Respiratory rate 17 /min Gita Hemmer PA Work Phone: [facility] 06-03-2024 15:39-0400 SaO2% (BldA) [Mass fraction] 98 % Gita Hemmer PA Work Phone: [facility] 06-03-2024 15:39-0400 Systolic blood pressure 128 mm[Hg] Gita Hemmer PA Work Phone: [facility] 05-28-2024 14:33-0400 Body height 152.4 cm Trever Brown DPM Work Phone: [facility] 05-28-2024 14:33-0400 Body mass index (BMI) [Ratio] 38.28 kg/m2 Trever Brown DPM Work Phone: [facility] 05-28-2024 14:33-0400 Body weight 88.91 kg Trever Brown DPM Work Phone: [facility] 05-28-2024 14:33-0400 Diastolic blood pressure 80 mm[Hg] Trever Brown DPM Work Phone: [facility] 05-28-2024 14:33-0400 Heart rate 75 /min Trever Brown DPM Work Phone: [facility] 05-28-2024 14:33-0400 Respiratory rate 18 /min Trever Brown DPM Work Phone: [facility] 05-28-2024 14:33-0400 Systolic blood pressure 124 mm[Hg] Trever Brown DPM Work Phone: [facility] 05-14-2024 14:44-0400 Body height 152.4 cm Trever Brown DPM Work Phone: [facility] 05-14-2024 14:44-0400 Body mass index (BMI) [Ratio] 38.28 kg/m2 Trever Brown DPM Work Phone: [facility] 05-14-2024 14:44-0400 Body weight 88.91 kg Trever Brown DPM Work Phone: [facility] 05-14-2024 14:44-0400 Diastolic blood pressure 80 mm[Hg] Trever Brown DPM Work Phone: [facility] 05-14-2024 14:44-0400 Heart rate 75 /min Trever Brown DPM Work Phone: [facility] 05-14-2024 14:44-0400 Systolic blood pressure 123 mm[Hg] Trever Barnard DPM Work Phone: [facility] 05-13-2024 14:59-0400 Body height 152.4 cm Gita Hemmer PA Work Phone: [facility] 05-13-2024 14:59-0400 Body mass index (BMI) [Ratio] 38.2 kg/m2 Gita Hemmer PA Work Phone: [facility] 05-13-2024 14:59-0400 Body weight 88.72 kg Gita Hemmer PA Work Phone: [facility] 05-13-2024 14:59-0400 Diastolic blood pressure 72 mm[Hg] Gita Hemmer PA Work Phone: [facility] 05-13-2024 14:59-0400 Heart rate 91 /min Gita Hemmer PA Work Phone: [facility] 05-13-2024 14:59-0400 Respiratory rate 16 /min Gita Hemmer PA Work Phone: [facility] 05-13-2024 14:59-0400 SaO2% (BldA) [Mass fraction] 97 % Gita Hemmer PA Work Phone: [facility] 05-13-2024 14:59-0400 Systolic blood pressure 138 mm[Hg] Gita Hemmer PA Work Phone: [facility] 01-30-2024 09:26-0400 Body height 152.4 cm [facility] 01-30-2024 09:26-0400 Body mass index (BMI) [Ratio] 38.7 kg/m2 [facility] 01-30-2024 09:26-0400 Body weight 89.81 kg [facility] 01-30-2024 09:26-0400 Diastolic blood pressure 85 mm[Hg] [facility] 01-30-2024 09:26-0400 Heart rate 97 /min [facility] 01-30-2024 09:26-0400 SaO2% (BldA) [Mass fraction] 97 % [facility] 01-30-2024 09:26-0400 Systolic blood pressure 142 mm[Hg] [facility] 01-09-2024 15:16-0400 Body height 152.4 cm [facility] 01-09-2024 15:16-0400 Body mass index (BMI) [Ratio] 37.8 kg/m2 [facility] 01-09-2024 15:16-0400 Body temperature 97.7 [degF] [facility] 01-09-2024 15:16-0400 Body weight 87.99 kg [facility] 01-09-2024 15:16-0400 Diastolic blood pressure 80 mm[Hg] [facility] 01-09-2024 15:16-0400 Heart rate 90 /min [facility] 01-09-2024 15:16-0400 Respiratory rate 18 /min [facility] 01-09-2024 15:16-0400 SaO2% (BldA) [Mass fraction] 99 % [facility] 01-09-2024 15:16-0400 Systolic blood pressure 131 mm[Hg] [facility] 12-25-2023 17:21-0400 Body height 152.4 cm [facility] 12-25-2023 17:21-0400 Body mass index (BMI) [Ratio] 30.2 kg/m2 [facility] 12-25-2023 17:21-0400 Body temperature 98.3 [degF] [facility] 12-25-2023 17:21-0400 Body weight 70.3 kg [facility] 12-25-2023 17:21-0400 Heart rate 96 /min [facility] 12-25-2023 17:21-0400 Respiratory rate 18 /min [facility] 12-25-2023 17:21-0400 SaO2% (BldA) [Mass fraction] 96 % [facility] 10-04-2023 08:09-0500 Body mass index (BMI) [Ratio] 37.07 kg/m2 Gita HUSAIN Work Phone: [facility] [employer] 10-04-2023 08:09-0500 Body weight 86.09 kg Gita Hemmer PA Work Phone: [employer] 10-04-2023 08:09-0500 Diastolic blood pressure 75 mm[Hg] Gita Hemmer PA Work Phone: [employer] 10-04-2023 08:09-0500 Heart rate 94 /min Gita Hemmer PA Work Phone: [employer] 10-04-2023 08:09-0500 Respiratory rate 14 /min Gita Hemmer PA Work Phone: [employer] 10-04-2023 08:09-0500 SaO2% (BldA) [Mass fraction] 95 % Gita Hemmer PA Work Phone: [facility] [employer] 10-04-2023 08:09-0500 Systolic blood pressure 140 mm[Hg] Gita Hemmer PA Work Phone: [facility] [employer] 08-01-2023 08:30-0500 Body height 152.4 cm Jane Waller Other [employer] Other 04-02-2023 11:15-0400 Body height 152.4 cm Jane Waller Other [employer] Other 04-02-2023 11:15-0400 Body mass index (BMI) [Ratio] 36.71 kg/m2 Jane Waller Other [employer] Other 04-02-2023 11:15-0400 Body weight 85.28 kg Jane Waller Other [employer] Other 04-02-2023 11:15-0400 Diastolic blood pressure 82 mm[Hg] Jane Waller Other [employer] Other 04-02-2023 11:15-0400 SaO2% (BldA) [Mass fraction] 98 % Jane Sridhar Other [employer] Other 04-02-2023 11:15-0400 Systolic blood pressure 143 mm[Hg] Jane Waller Other [employer] Other 02-06-2023 08:45-0400 Body height 152.4 cm Jane Sridhar Other [employer] Other 02-06-2023 08:45-0400 Diastolic blood pressure 79 mm[Hg] Jane Sridhar Other [employer] Other 02-06-2023 08:45-0400 SaO2% (BldA) [Mass fraction] 96 % Jane Sridhar Other [employer] Other 02-06-2023 08:45-0400 Systolic blood pressure 118 mm[Hg] Jane Waller Other [employer] Other 03-19-2022 10:00-0400 Body height 152.4 cm Ciera Poppy Other [employer] Other 03-19-2022 10:00-0400 Body mass index (BMI) [Ratio] 35.74 kg/m2 Ciera Poppy Other [employer] Other 03-19-2022 10:00-0400 Body temperature 96.8 [degF] Ciera Poppy Other [employer] Other 03-19-2022 10:00-0400 Body weight 83.01 kg Ciera Poppy Other [employer] Other 03-19-2022 10:00-0400 Diastolic blood pressure 89 mm[Hg] Cirea Poppy Other [employer] Other 03-19-2022 10:00-0400 Respiratory rate 20 /min Ciera Poppy Other [employer] Other 03-19-2022 10:00-0400 SaO2% (BldA) [Mass fraction] 98 % Ciera Poppy Other [employer] Other 03-19-2022 10:00-0400 Systolic blood pressure 142 mm[Hg] Ciera Poppy Other [employer] Other 02-22-2022 11:00-0400 Body height 152.4 cm Jane Waller Other [employer] Other 02-22-2022 11:00-0400 Body mass index (BMI) [Ratio] 35.93 kg/m2 Jane Waller Other [employer] Other 02-22-2022 11:00-0400 Body temperature 97.7 [degF] Jane Waller Other [employer] Other 02-22-2022 11:00-0400 Body weight 83.46 kg Jane Waller Other [employer] Other 02-22-2022 11:00-0400 Diastolic blood pressure 82 mm[Hg] Jane Waller Other [employer] Other 02-22-2022 11:00-0400 SaO2% (BldA) [Mass fraction] 98 % Jane Waller Other [employer] Other 02-22-2022 11:00-0400 Systolic blood pressure 122 mm[Hg] Jane Waller Other [employer] Other 08-22-2021 16:30-0500 Body height 152.4 cm Jane Waller Other [employer] Other 08-22-2021 16:30-0500 Body mass index (BMI) [Ratio] 37.2 kg/m2 Jane Waller Other [employer] Other 08-22-2021 16:30-0500 Body temperature 97.5 [degF] Jane Waller Other [employer] Other 08-22-2021 16:30-0500 Body weight 86.41 kg Jane Sridhar Other [employer] Other 08-22-2021 16:30-0500 Diastolic blood pressure 83 mm[Hg] Jane Waller Other [employer] Other 08-22-2021 16:30-0500 SaO2% (BldA) [Mass fraction] 97 % Jane Sridhar Other [employer] Other 08-22-2021 16:30-0500 Systolic blood pressure 141 mm[Hg] Jane Waller Other [employer] Other 08-19-2021 10:20-0500 Body height 152.4 cm Tracy Oliver Other [employer] Other 08-19-2021 10:20-0500 Body mass index (BMI) [Ratio] 36.52 kg/m2 Tracy Oliver Other [employer] Other 08-19-2021 10:20-0500 Body temperature 97.9 [degF] Tracy Oliver Other [employer] Other 08-19-2021 10:20-0500 Body weight 84.82 kg Tracy Oliver Other [employer] Other 08-19-2021 10:20-0500 Diastolic blood pressure 80 mm[Hg] Tracy Oliver Other [employer] Other 08-19-2021 10:20-0500 Respiratory rate 18 /min Tracy Oliver Other [employer] Other 08-19-2021 10:20-0500 SaO2% (BldA) [Mass fraction] 100 % Tracy Oliver Other [employer] Other 08-19-2021 10:20-0500 Systolic blood pressure 146 mm[Hg] Tracy Oliver Other [employer] Other 06-01-2021 09:30-0400 Body height 152.4 cm Jane Waller Other [employer] Other Encounters Encounter Date Encounter Type Care Provider Facility Start: 08-28-2024 End: 08-28-2024 Bamboo flowsheet Lenny Snow DO Work Phone: [facility] Start: 08-28-2024 End: 08-28-2024 Bamboo flowsheet Lenny Snow DO Work Phone: [facility] Start: 08-28-2024 End: 08-28-2024 Patient encounter status Lenny Snow DO Work Phone: [facility] Start: 08-28-2024 End: 08-28-2024 Periodic preventive med est patient 40-64yrs Lenny Snow DO Work Phone: [facility] Comment on above: Encounter for gyneco logical examination without abnormal finding (Primary Dx); Screening for malignant neoplasm of cervix; Breast cancer screening by mammogram; Chronic sinusitis, unspecified location; Encounter for gynecological examination (general) (routine) without abnormal findings Start: 08-28-2024 End: 08-28-2024 ambulatory LENNY Javier CANADAER Not Available Start: 07-16-2024 End: 07-16-2024 ambulatory Elver Mendenhall II Work Phone: [facility] Work Phone: Start: 07-16-2024 End: 07-16-2024 Patient encounter procedure Elver Mendenhall II Work Phone: [facility] Work Phone: Start: 07-13-2024 End: 07-13-2024 Telephone encounter Gita HUSAIN Work Phone: [facility] Start: 07-02-2024 End: 07-02-2024 Office outpatient visit 15 minutes Trever Barnard DPM Work Phone: [facility] Comment on [...] / Non-visit Elver Mendenhall II Work Phone: [facility] Work Phone: Start: 05-30-2024 End: 05-31-2024 Telephone encounter Tracy Villareal MACHINE SORTER Work Phone: [facility] Start: 05-28-2024 Non-patient / Non-visit Elver Mendenhall II Work Phone: [facility] Work Phone: Start: 05-28-2024 End: 05-28-2024 Office outpatient visit 15 minutes Trever Barnard DPM Work Phone: [facility] Comment on above: Peroneal tendinitis, left (Primary Dx); Peroneal tendinitis, right; Venous insufficiency Start: 05-28-2024 End: 05-28-2024 ambulatory TREVER BARNARD Not Available Start: 05-27-2024 End: 05-27-2024 Telephone encounter Tracy Villareal MACHINE SORTER Work Phone: [facility] Comment on above: OA call ([facility] called with a critical lab. Potassium is 2.6. Call placed to [place] Villareal) Start: 05-20-2024 End: 05-20-2024 ambulatory II Elver Mendenhall Work Phone: [facility] Work Phone: Start: 05-20-2024 End: 05-20-2024 Departed Referred II Elver Mendenhall Work Phone: [facility] [place] Work Phone: Start: 05-19-2024 End: 05-20-2024 Patient encounter procedure II Elver Mendenhall Work Phone: [facility] Work Phone: Start: 05-19-2024 End: 05-20-2024 ambulatory II Elver Mendenhall Work Phone: [facility] Work Phone: Start: 05-14-2024 End: 05-14-2024 Office outpatient new 30 minutes Trever Barnard DPM Work Phone: [facility] Comment on above: Peroneal tendinitis, left (Primary Dx); Peroneal tendinitis, right; Venous insufficiency Start: 05-14-2024 End: 05-14-2024 ambulatory TREVER BARNARD Not Available Start: 05-13-2024 End: 05-13-2024 Office outpatient visit 15 minutes Gita Garcia PA Work Phone: [facility] Comment on above: Bilateral lower leg cellulitis (Primary Dx); Encounter for screening mammogram for malignant neoplasm of breast; Ankle edema Start: 05-13-2024 End: 05-13-2024 ambulatory GITA GARCIA Not Available Start: 05-13-2024 End: 05-13-2024 Bamboo flowsheet Gita Garcia PA Work Phone: [facility] Start: 05-13-2024 End: 05-13-2024 Bamboo flowsheet Gita Garcia PA Work Phone: [facility] Start: 03-04-2024 End: 03-04-2024 ambulatory SEB Rogers APLING Not Available Start: 01-30-2024 End: 01-30-2024 ambulatory [facility] Work Phone: Start: 01-30-2024 End: 01-30-2024 Patient encounter procedure [facility] Work Phone: Start: 01-09-2024 End: 01-09-2024 ambulatory [facility] Work Phone: Start: 01-09-2024 End: 01-09-2024 Patient encounter procedure [facility] Work Phone: Start: 12-25-2023 End: 12-25-2023 ambulatory [facility] Work Phone: Start: 12-25-2023 End: 12-25-2023 Patient encounter procedure [facility] Work Phone: Start: 10-14-2023 End: 10-14-2023 Office outpatient visit 15 minutes Lubna A Felter BEAUTY DIRECTOR-AIR ROUTE CONTROLLER Work Phone: [facility] Comment on above: Nevus; Perioral dermatitis Start: 10-14-2023 End: 10-14-2023 ambulatory LUBNA A FELTER Not Available Start: 10-10-2023 End: 10-10-2023 ambulatory Jane Waller Other [employer] Other Start: 10-10-2023 Telephone encounter Jane Waller [facility] Start: 10-04-2023 Chart abstracting Gita sinha PA [...] 09-05-2023 End: 09-05-2023 ambulatory Jane Waller Other [employer] Other Start: 09-05-2023 Telephone encounter Jane Waller [facility] Start: 08-01-2023 Office outpatient vi sit 25 minutes Jane Waller [facility] Start: 08-01-2023 End: 08-01-2023 Patient encounter procedure II Elver Mendenhall Work Phone: [facility] Work Phone: Start: 08-01-2023 End: 08-01-2023 ambulatory II Elver Mendenhall Work Phone: [employer] Other Start: 07-30-2023 End: 07-30-2023 ambulatory Ciera Poppy Other [employer] Other Start: 07-30-2023 Office outpatient vi sit 25 minutes Ciera Poppy [facility] Start: 07-16-2023 End: 07-16-2023 ambulatory Ciera Poppy Other [employer] Other Start: 07-16-2023 Telephone encounter Ciera Poppy [facility] Start: 06-13-2023 End: 06-13-2023 ambulatory Jane Waller Other [employer] Other Start: 06-13-2023 Telephone encounter Jane Waller [facility] Start: 06-03-2023 End: 06-03-2023 ambulatory Jane Waller Other [employer] Other Start: 06-03-2023 Telephone encounter Jane Song [facility] Start: 04-02-2023 Office outpatient vi sit 25 minutes Jane Waller [facility] Start: 04-02-2023 End: 04-02-2023 ambulatory II Elver Mendenhall Work Phone: [employer] Other Start: 04-02-2023 End: 04-02-2023 Patient encounter procedure II Elver Mendenhall Work Phone: [facility] Work Phone: Start: 03-11-2023 End: 03-11-2023 ambulatory Efraín Patel Other [employer] Other Start: 03-11-2023 Telephone encounter Efraín Patel [facility] Start: 02-06-2023 Office outpatient vi sit 25 minutes Jane Waller [facility] Start: 02-06-2023 End: 02-06-2023 ambulatory II Elver Mendenhall Work Phone: [employer] Other Start: 02-06-2023 End: 02-06-2023 Patient encounter procedure II Elver Mendenhall Work Phone: [facility] Work Phone: Start: 11-22-2022 End: 11-22-2022 ambulatory Jane Waller Other [employer] Other Start: 11-22-2022 Telephone encounter Jane Waller [facility] Start: 08-28-2022 End: 08-28-2022 ambulatory Jane Waller Other [employer] Other Start: 08-28-2022 Telephone encounter Jane Song [facility] Start: 07-03-2022 End: 07-03-2022 Patient encounter procedure II Elver Mendenhall Work Phone: [facility] Start: 07-03-2022 End: 07-03-2022 ambulatory II Elver Mendenhall Work Phone: [facility] Work Phone: Start: 07-03-2022 Office outpatient vi sit 25 minutes Jane Waller [facility] Start: 05-24-2022 End: 05-24-2022 ambulatory Jane Waller Other [employer] Other Start: 05-24-2022 Telephone encounter Jane Waller [facility] Start: 03-19-2022 End: 03-19-2022 ambulatory Ciera Poppy Other [employer] Other Start: 03-19-2022 Office outpatient vi sit 25 minutes Ciera Poppy [facility] Start: 02-23-2022 End: 02-23-2022 ambulatory Jane Waller Other [employer] Other Start: 02-23-2022 Telephone encounter Jane Waller [facility] Start: 02-22-2022 End: 02-22-2022 ambulatory Jane Waller Other [employer] Other Start: 02-22-2022 Office outpatient vi sit 25 minutes Jane Waller [facility] Start: 11-24-2021 End: 11-24-2021 ambulatory Jane Waller Other [employer] Other Start: 11-24-2021 Telephone encounter Jane Waller [facility] Start: 09-08-2021 End: 09-08-2021 ambulatory Jane Waller Other [employer] Other Start: 09-08-2021 Telephone encounter Ciera Poppy [facility] Start: 08-22-2021 End: 08-22-2021 ambulatory Jane Wallre Other [employer] Other Start: 08-22-2021 Office outpatient vi sit 25 minutes Jane Waller [facility] Start: 08-19-2021 End: 08-19-2021 ambulatory Tracy Oliver Other [employer] Other Start: 08-19-2021 Office outpatient vi sit 15 minutes Tracy Oliver [facility] Start: 08-02-2021 End: 08-02-2021 ambulatory Jane Waller Other [employer] Other Start: 08-02-2021 Telephone encounter Jane Waller [facility] Start: 06-30-2021 Telephone encounter Jane Song [facility] Start: 06-01-2021 Office outpatient vi sit 25 minutes Jane Waller [facility] Start: 07-07-2019 End: 07-13-2019 Evaluation and management of inpatient ELVER MENDENHALL Facility:[facility] Start: 07-06-2019 End: 07-07-2019 Patient encounter procedure ELVER MENDENHALL Facility: Start: 06-08-2019 End: 06-09-2019 Patient encounter procedure GITA GARCIA Facility:[facility] Start: 05-23-2019 End: 05-24-2019 Patient encounter procedure ELVER MENDENHALL Facility:[facility] Start: 12-27-2018 End: 12-28-2018 Patient encounter procedure ELVER MENDENHALL Facility:[facility] Start: 03-27-2018 Patient encounter PROVIDER UNKNOWN F [id number] Start: 03-27-2018 Patient encounter Facil [id number] Procedures Date Procedure Procedure Detail Performing Clinician Start: 03-27-2023 Microscopic observat ion [Identifier] in Cervix by Cyto stain Gita HUSAIN Work Phone: Start: 12-09-2020 Mammography Gita HUSAIN Work Phone: Start: 07-07-2019 REPAIR RIGHT KNEE PHONG INT, OPEN APPROACH IAN EBRAHEIM Start: 07-07-2019 REPOSITION RIGHT TIB IA WITH INT FIX, OPEN APPROACH IAN EBRAHEIM Start: 07-07-2019 SUPPLEMENT RIGHT TIB IA WITH SYNTH SUB, OPEN APPROACH IAN EBRAHEIM Start: 07-07-2019 Antibody screen ELVER MENDENHALL Comment on above: Performed By: #### [id number] #### [address] Start: 12-27-2018 End: 12-27-2018 Microscopic examination of blood, culture ELVER MENDENHALL Comment on above: Performed By: #### B [id number] #### [facility] [address], [place] [address] Jose Pelayo Performed By: #### L IPA, CMP #### [facility] [address], [place] [address] Jose Pelayo Plan of Treatment Date Care Activity Detail Author Start: 03-27-2028 Screening for malign ant neoplasm of cervix [facility] Start: 03-27-2026 Screening for malign ant neoplasm of cervix Pap Smear [facility] Start: 05-13-2025 Screening for malign ant neoplasm of colon Colorectal Cancer Screening [facility] Comment on above: Postponed from 06/07 (Patient Refused) Start: 02-08-2025 End: 02-08-2025 Patient encounter procedure 02/08/2025 8:30 AM EDT Office Visit [facility] [address] [place] [address] Lubna Lawrence APRN-AIR ROUTE CONTROLLER [address] [place] [address] [facility] Start: 10-27-2024 End: 10-27-2024 Professional / ancillary services management 10/27/2024 4:00 PM EST Ancillary Procedure [facility] [place] [address] [place] [address] [facility] [place] Start: 08-28-2024 End: 08-28-2024 Patient encounter procedure [facility] Comment on above: Arrived Start: 07-02-2024 End: 07-02-2024 Patient encounter procedure 07/02/2024 4:20 PM EDT Office Visit [facility] [address] [facility] [address] [place] [address] Trever Barnard, DPM [address] [facility] 5 [place] [address] Peroneal tendinitis, left (Primary Dx); Peroneal tendinitis, right; Venous insufficiency [facility] Comment on above: Peroneal tendinitis, left (Primary Dx); Peroneal tendinitis, right; Venous insufficiency Start: 06-30-2024 End: 06-30-2024 Patient encounter procedure 06/30/2024 9:30 AM EDT Office Visit [facility] [address] [place] [phone] Lenny Snow, DO [address] [place] [address] [facility] Start: 06-25-2024 End: 06-25-2024 Patient encounter procedure 06/25/2024 2:40 PM EDT Office Visit [facility] [address] [place] [phone] Trever Barnard, DPM [address] [facility] [address] [place] [address] [facility] Start: 06-10-2024 End: 06-03-2025 Basic metabolic 1998 panel - Serum or Plasma Basic metabolic panel Lab Routine Hypokalemia Expected: 06/10/2024 (Approximate), Expires: 06/03/2025 [facility] Work Phone: Comment on above: Expected: 06/10/2024 (Approximate), Expires: 06/03/2025 Start: 06-03-2024 End: 06-03-2024 Patient encounter procedure 06/03/2024 4:00 PM EDT Office Visit [facility] [address] [place] [address] Gita Garcia PA [address] [place] [address] [facility] Start: 06-03-2024 End: 06-03-2026 Heart Transthoracic Transthoracic Echo (TTE) Complete Echocardiography Routine Ankle edema Abnormal electrocardiogram Expected: 06/03/2024 (Approximate), Expires: 06/03/2026 [facility] Comment on above: Expected: 06/03/2024 (Approximate), Expires: 06/03/2026 Start: 05-29-2024 End: 05-27-2025 Potassium [Moles/volume] in Serum or Plasma Potassium Lab Routine Hypokalemia Expected: 05/29/2024, Expires: 05/27/2025 [facility] Work Phone: Comment on above: Expected: 05/29/2024 , Expires: 05/27/2025 Start: 05-28-2024 End: 05-28-2024 Patient encounter procedure 05/28/2024 2:40 PM EDT Office Visit [facility] [address] [place] [address] Trever Barnard DPM [address] [address] [facility] Start: 05-14-2024 End: 05-14-2024 Patient encounter procedure 05/14/2024 4:20 PM EDT Office Visit [facility] [address] [place] [address] Trever Barnard DPM [address] [address] [facility] Start: 05-13-2024 End: 05-13-2024 Patient encounter procedure 05/13/2024 3:00 PM EDT Office Visit [facility] [address] [place] [address] Gita Garcia PA [address] [place] [address] Arrived [facility] Comment on above: Arrived Start: 05-13-2024 End: 07-13-2025 DBT Breast - bilateral screening Bilateral screening mammogram with tomosynthesis Imaging Routine Encounter for screening mammogram for malignant neoplasm of breast Expected: 05/13/2024, Expires: 07/13/2025 [facility] Work Phone: Comment on above: Expected: 05/13/2024 , Expires: 07/13/2025 Start: 05-03-2024 Influenza vaccination [facility] Start: 04-09-2024 End: 04-09-2024 Patient encounter procedure 04/09/2024 9:35 AM EDT Office Visit [facility] [address] [place] [phone] Lubna Lawrence, BEAUTY DIRECTOR-AIR ROUTE CONTROLLER [address] [place] [address] [facility] Start: 03-31-2024 End: 03-31-2024 Patient encounter procedure 03/31/2024 9:45 AM EDT Office Visit [facility] [address] [place] [phone] Lenny Snow, DO [address] [place] [address] [facility] Start: 11-15-2023 End: 11-15-2023 Patient encounter procedure 11/15/2023 8:30 AM EDT Office Visit [facility] [address] [place] [address] Gita Garcia PA [address] [place] [address] [facility] Start: 10-14-2023 End: 10-14-2023 Patient encounter procedure 10/14/2023 8:30 AM EST Office Visit [facility] [address] [place] [address] Lubna Lawrence, BEAUTY DIRECTOR-AIR ROUTE CONTROLLER [address] [place] [address] [facility] Start: 10-04-2023 End: 10-04-2024 CBC W Auto Differential panel - Blood CBC and differential Lab Routine Wellness examination Iron deficiency Thrombocythemia Anemia, unspecified type Expected: 10/04/2023 (Approximate), Expires: 10/04/2024 [facility] Work Phone: Comment on above: Expected: 10/04/2023 (Approximate), Expires: 10/04/2024 Start: 10-04-2023 End: 10-04-2024 Comprehensive metabolic 2000 panel - Serum or Plasma Comprehensive metabolic panel Lab Routine Wellness examination Ankle edema Elevated ALT measurement Mixed hyperlipidemia (CMS/HCC) Expected: 10/04/2023 (Approximate), Expires: 10/04/2024 [facility] Comment on above: Expected: 10/04/2023 (Approximate), Expires: 10/04/2024 Start: 10-04-2023 End: 10-04-2024 Hemoglobin A1c measurement Hemoglobin A1c Lab Routine Wellness examination Impaired fasting glucose History of gestational diabetes Expected: 10/04/2023 (Approximate), Expires: 10/04/2024 [facility] Comment on above: Expected: 10/04/2023 (Approximate), Expires: 10/04/2024 Start: 10-04-2023 End: 10-04-2024 Iron + transferrin + TIBC Iron + transferrin + TIBC Lab Routine Wellness examination Iron deficiency Anemia, unspecified type Expected: 10/04/2023 (Approximate), Expires: 10/04/2024 [facility] Comment on above: Expected: 10/04/2023 (Approximate), Expires: 10/04/2024 Start: 10-04-2023 End: 10-04-2024 Lipid 1996 panel - Serum or Plasma Lipid panel Lab Routine Wellness examination Elevated ALT measurement Mixed hyperlipidemia (CMS/HCC) Expected: 10/04/2023 (Approximate), Expires: 10/04/2024 [facility] Comment on above: Expected: 10/04/2023 (Approximate), Expires: 10/04/2024 Start: 10-04-2023 End: 10-04-2024 TSH W/REFLEX TO FT4 TSH W/REFLEX TO FT4 Lab Routine Wellness examination Tachycardia Weight gain Expected: 10/04/2023 (Approximate), Expires: 10/04/2024 [facility] Comment on above: Expected: 10/04/2023 (Approximate), Expires: 10/04/2024 Start: 10-04-2023 End: 10-04-2023 Patient encounter procedure 10/04/2023 8:00 AM EST Office Visit [facility] [address] [facility] [address] [place] [phone] Gita Garcia PA [address] [facility] [address] [place] [address] [facility] Start: 05-03-2023 Influenza vaccination Influenza Vacc ine (#1) [facility] Start: 12-09-2021 Screening for malign ant neoplasm of breast Mammogram [facility] Start: 1997 Screening for malign ant neoplasm of cervix Pap Smear [facility] Start: 1976 Screening for malign ant neoplasm of colon [facility] IGP, APT HPV,RFX 16/18,45 IGP, APT HPV,RFX 16/18,45 Lab Routine Screening for malignant neoplasm of cervix Ordered: 08/28/[address] [facility] Work Phone: Comment on above: Ordered: 08/28/2024 Immunizations Immunization Date Immunization Notes Care Provider Fa chani 03-10-2016 Rocephin 500 mg Mbite Other [employer] [facility] Other 02-17-2016 tetanus toxoid, reduced diphtheria toxoid, and acellular pertussis vaccine, adsorbed Gita HUSAIN Work Phone: [facility] Work Phone: Payers Date Payer Category Payer Self-pay [id number] 2022 [facility] BCBS [id number] 2022 Unknown BCBS BCBS xxxxxx [id number] 2022-Present [phone] [address] [place] [address] [id number] 2022 Blue Cross Blue Shield [id number] [id number] 1976 Unknown [id number] 2.16.840.1.482810.3.579.2. 593 1976 Unknown [id number] 2.16.840.1.844088.3.579.2. 593 1976 Unknown [id number] 2.16.840.1.988734.3.579.2. 593 1976 Unknown [id number] 2.16.840.1.502084.3.579.2. 593 1976 Unknown [id number] 2.16.840.1.458664.3.579.2. 647 1976 Unknown [id number] 2.16.840.1.420500.3.579.2. 1259 1976 Unknown [id number] 2.16.840.1.466648.3.579.2. 1259 1976 Unknown [id number] 2.16.840.1.811399.3.579.2. 1259 1976 Unknown [id number] 2.16.840.1.091508.3.579.2. 1259 1976 Unknown [id number] 2.16.840.1.549650.3.579.2. 1259 1976 Unknown [id number] 2.16.840.1.584969.3.579.2. 1259 1976 Unknown [id number] 2.16.840.1.374287.3.579.2. 1259 1976 Unknown [id number] 2.16.840.1.754713.3.579.2. 1259 1976 Unknown [id number] 2.16.840.1.199177.3.579.2. 1259 1976 Unknown [id number] 2.16.840.1.641991.3.579.2. 1259 1959 Unknown [id number] Unknown [id number] 2.16.840.1.817019.19 Unknown Copay Assistance Program [id number] Unknown [id number] 2.16.840.1.946245.3.579.2. 531 Unknown [id number] 2.16.840.1.845637.3.579.2. 531 Unknown [id number] 2.16.840.1.924173.3.579.2. 531 Social History Date Type Detail Facility Unknown if ever smoked [facility] Other Start: 07-15-2023 End: 08-28-2024 Sex Assigned At [facility] Start: 03-13-2021 End: 10-14-2023 Tobacco smoking status NHIS Never smoked tobacco (finding) [facility] Start: 1975 Sex Assigned At Female [facility] Start: 03-27-2023 End: 10-14-2023 Tobacco use and exposure Smokeless tobacco non-user [facility] Start: 07-15-2023 End: 08-28-2024 Alcohol intake Lifetime non-drinker (finding) [facility] Start: 07-15-2023 End: 08-28-2024 History of Social function [facility] Within the last year , have you been afraid of your partner or ex-partner? No [facility] Do you belong to any clubs or organizations such as episcopalian groups, unions, fraternal or athletic groups, or [...] [facility] Start: 07-16-2024 Sex Female (finding) [facility] NEGATED: Highlighted rowStart: NINF History of tobacco use Passive smoker [facility] Goals Date Patient Goal Desired Activity /State Personal health goal Clinical Notes 11-18-2020 to 08-28-2024 Leny Sheets MA - 08/28/2024 11:30 AM ESTTelephone Encounter - LISHA Grayson - 07/13/2024 2:42 PM ESTTelephone Encounter - LISHA Grayson - 07/13/2024 2:42 PM EST Note Date & Type Note Facility 08-28-2024 History of Present illness Narrative Images from the original note were not included. Lenny Snow, DO Obstetrics and Gynecology Linda Alvarado 1975 08/28/24 [id number] Yearly Wellness Exam Chief Complaint Patient presents with Gynecologic Exam LMP 07/28/24 regular, monthly, normal flow, last 5-7 days BC: none- hx infertility Last pap 03-27-23 neg Last mammogram 2020. PCP placed order to [facility] Scheduled in October. Denies breast, urinary, or bowel concerns. Visit Vitals BP 132/74 Ht 5' Wt 188 lb LMP 07/28/2024 BMI 36.72 kg/m OB Status Having periods Smoking Status Never BSA 1.9 m OB History Para Term AB Living 9 1 1 8 1 SAB IAB Ectopic Multiple Live Births 7 1 1 # Outcome Date GA Lbr Tre/2nd Weight Sex Type Anes PTL Lv 9 SAB 8 SAB 7 SAB 6 Term 6 lb 10 oz CS-LTranv YASEMIN 5 SAB 4 SAB 3 SAB 2 SAB 1 Ectopic Current Outpatient Medications Medication Sig Dispense Refill doxycycline (Vibramycin) 100 MG capsule Take 100 mg by mouth in the morning and 100 mg before bedtime. methocarbamol (Robaxin) 750 MG tablet TAKE 1 TABLET BY MOUTH 3 TIMES A DAY NEEDED FOR PAIN oxyCODONE-acetaminophen (Percocet) 5-325 MG tablet TAKE 1 TABLET BY MOUTH EVERY 6 HOURS NEEDED FOR PAIN FOR 3 DAYS Advair Diskus 500-50 MCG/ACT aerosol powder INHALE [...] DOSES IN 24 HOURS 12 tablet 12 fluconazole (Diflucan) 150 MG tablet Take 1 tablet (150 mg) by mouth in the morning for 1 day. Repeat in seven days if symptoms don't resolve. 1 tablet 1 fluticasone (Flonase) 50 MCG/ACT nasal spray SPRAY 1 TO 2 SPRAYS IN EACH NOSTRIL ONCE DAILY methylPREDNISolone (Medrol Dospak) 4 MG tablets Follow schedule on package instructions 21 tablet 0 minocycline 100 MG capsule Take 1 capsule (100 mg) by mouth Daily 30 capsule 0 omeprazole (PriLOSEC) [address] capsule Take 1 capsule (40 mg) by mouth in the morning and 1 capsule (40 mg) before bedtime. 180 capsule 3 potassium chloride CR (Klor-Con) 10 MEQ ER tablet Take 2 tablets (20 mEq) by mouth in the morning and 2 tablets (20 mEq) before bedtime. 120 tablet 6 Sunosi 150 MG tablet torsemide (Demadex) 10 MG tablet TAKE 1 TABLET (10 MG) BY MOUTH DAILY. 90 tablet 1 valACYclovir (Valtrex) 500 MG tablet Take 1 tablet (500 mg) by mouth Daily 90 tablet 3 No current facility-administered medications for this visit. Allergies Allergen Reactions Clarithromycin GI intolerance Sulfa Antibiotics Unknown Past Surgical History: Procedure Laterality Date CARPAL TUNNEL RELEASE 2007 SECTION, LOW TRANSVERSE 2016 COLPOSCOPY 1999, 2001 D&C FIRST TRIMESTER / TX INCOMPLETE / MISSED / SEPTIC / INDUCED 2010 DILATION AND CURETTAGE OF UTERUS 2012 GALLBLADDER 2012 TIBIA FRACTURE SURGERY Right 07/07/2019 ORIF Past Medical History: Diagnosis Date Abnormal ECG 12/2018 Asthma ([facility]) Comminuted fracture of shaft of tibia 07/06/2019 RT COVID-19 05/2021 Ectopic 2010 Fracture of tibial plateau GDM (gestational diabetes mellitus) Infertility counseling Miscarriage 2010 OCD (obsessive compulsive disorder) ([facility]) ROBYN (obstructive sleep apnea) Seasonal allergies ROS Const: Denies appetite change, fever, chills. Allergy: Denies medication reaction. Ocular: Denies visual acuity change. ENT: Denies hearing change. Endoc: Denies weight loss. Resp: Denies dyspnoea, wheezing. Cardiac: Denies angina, palpitations. GI: Denies nausea, vomiting. Haem: Denies bleeding. : Denies incontinence. MSK: Denies arthralgias, joint oedema. Derm: Denies rash, hair loss. Neuro: Denies ataxia, tremor. Also see HPI for elements of ROS documented therein and for details of positive findings, which shall supersede the foregoing. EXAM GENERAL EXAMINATION alert oriented well developed, well nourished. HEAD: normocephalic atraumatic. EYES: sclera anicteric. EARS: no obvious hearing deficit. NECK/THYROID: neck supple no cervical lymphadenopathy no thyromegaly. LYMPH NODES: no axillary, supraclavicular or inguinal adenopathy. SKIN: warm and dry. HEART: regular rate and rhythm. LUNGS: clear to auscultation bilaterally. CHEST:axillary nodes grossly normal. BREASTS:no masses palpable bilaterally, normal nipples bilaterally - everted -finely cystic - dense - well supported- axilla negative. ABDOMEN: soft, nontender, nondistended, no masses palpable. BACK: no costovertebral angle tenderness, no obvious scoliosis/kyphosis. 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 RECTAL:normal tone , no masses palpable , only small external hemorrhoids. EXTREMITIES no edema. NEUROLOGIC: alert and oriented. PSYCH: cooperative with exam. ICD-10-CM 1. Encounter for gynecological examination without abnormal finding Z01.419 Pelvic and breast exam completed. Findings of today's exam discussed with the patient. Continue MSBE. Ca/Vit D recommendations reviewed with the patient. The patient is to contact the office with any changes to her gynecological condition or any changes with breast or bleeding. The patient is to return in 1 year or as needed 2. Screening for malignant neoplasm of cervix Z12.4 IGP, APT HPV,RFX 16/18,45 Thinprep collected. Will notify patient if results are abnormal. 3. Breast cancer screening by mammogram Z12.31 Screening mammogram ordered. Patient to call and schedule. 4. Chronic sinusitis, unspecified location J32.9 methylPREDNISolone (Medrol Dospak) 4 MG tablets Request dose pack, ongoing sickness 2 weeks. Entered by Leny Sheets MA acting as scribe for Dr. Lenny Snow. Signature Leny Sheets MA Date 08/28/24 . Time 11:29 AM . The documentation recorded by the scribe accurately reflects the service(s) I personally performed and the decisions I made. Signature Cornelio Snow D.O. Date 08/28/24 Time 5:00PM. documented in this encounter [facility] 07-13-2024 Telephone encounter Note Sent [facility] 07-13-2024 Miscellaneous Notes Sent Pt lm on vm asking if a refill of medrol tomer could be sent in again as her feet are swelling again documented in this encounter [facility] 07-13-2024 Telephone encounter Note Pt lm on vm asking if a refill of medrol tomer could be sent in again as her feet are swelling again [facility] 07-02-2024 History of Present illness Narrative Patient: Linda Alvarado : 1975 [...] History: Diagnosis Date Abnormal ECG 12/2018 Asthma ([facility]) Comminuted fracture of shaft of tibia 07/06/2019 RT COVID-19 05/2021 Ectopic 2010 Fracture of tibial plateau GDM (gestational diabetes mellitus) Infertility counseling Miscarriage 2010 OCD (obsessive compulsive disorder) (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[employer] Tobacco Use Smoking 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 Passive exposure: [...] min Stress: No Stress Concern Present (07/15/2023) [place] [employer] - Occupational Stress Questionnaire Feeling of Stress : Not at all Social Connections: Socially Integrated (07/15/2023) Social Connection and Isolation Panel [NHANES] Frequency of Communication with Friends and Family: Twice a week Frequency of Social Gatherings with Friends and Family: More than three times a week Attends Christian Services: More than 4 times per year [...] Trever Barnard DPM documented in this encounter [facility] 06-13-2024 Telephone encounter Note Please let pt know that her recent lab showed her potassium is back in normal range. Continue potassium supplement. [facility] 06-13-2024 Miscellaneous Notes Please let pt know that her recent lab showed her potassium is back in normal range. Continue potassium supplement. documented in this encounter [facility] 06-03-2024 History of Present illness Narrative Images from the original note were not included. Subjective Patient ID: Linda Alvarado is a 48 y.o. female who presents for a follow up of [facility] on 05/30. She went to [facility] for hypokalemia. Linda is present today for a follow up of [facility] for hypokalemia, she states her legs are [...] INCOMPLETE / MISSED / SEPTIC / INDUCED 2011 DILATION AND CURETTAGE OF UTERUS 2012 GALLBLADDER [...] months (around 09/03/2024). documented in this encounter [facility] 05-31-2024 Telephone encounter Note The pt was contacted today to see how she was feeling. She is inpatient at [facility]. She has been given IV potassium and magnesium. Possible Dc today. [facility] Work Phone: 05-31-2024 Miscellaneous Notes The pt was contacted today to see how she was feeling. She is inpatient at [facility]. She has been given IV potassium and magnesium. Possible Dc today. Linda Alvarado 77: : Tracy Villareal. Patient states she has been talking with Tracy Villareal about potassium being low over the past couple of days. She was told to continue taking the potassium. Patient states her hands have been tingling all evening. Would like to know if she should be concerned. Please advise. Call to Tracy Villareal. Per Tracy Villareal: Patient should go to the ER. Patient advised. documented in this encounter [facility] 05-30-2024 Telephone encounter Note Linda Alvarado 77: : Tracy Villareal. Patient states she has been talking with Tracy Villareal about potassium being low over the past couple of days. She was told to continue taking the potassium. Patient states her hands have been tingling all evening. Would like to know if she should be concerned. Please advise. Call to Tracy Villareal. Per Tracy Villareal: Patient should go to the ER. Patient advised. [facility] 05-28-2024 History of Present illness Narrative Patient: Linda Alvarado : 1975 PCP: Elver Mendenhall MD SUBJECTIVE This is a 48 y.o. female that presents today for a follow up of bilateral peroneal tendinitis as taking a Medrol pack and rates pain up to a 3 /10 at times. She states she has [...] History: Diagnosis Date Abnormal ECG 12/2018 Asthma ([facility]) Comminuted fracture of shaft of tibia 07/06/2019 RT COVID-19 05/2021 Ectopic 2010 Fracture of tibial plateau GDM (gestational diabetes mellitus) Infertility counseling Miscarriage 2010 OCD (obsessive compulsive disorder) ([facility]) ROBYN (obstructive sleep apnea) Seasonal allergies Medications: [...] mouth Daily, Disp: 45 tablet, Rfl: 3 clindamycin (Clindagel) 1 % gel, Apply to face BID (Patient taking differently: Apply to face BID PRN), Disp: 60 g, Rfl: 1 dilTIAZem CD (Cardizem CD) 120 MG [...] EACH NOSTRIL ONCE DAILY, Disp: , Rfl: hydroCHLOROthiazide (HYDRODiuril) 25 MG tablet, Take 1 tablet (25 mg) by mouth in the morning., Disp: 100 tablet, Rfl: 3 methylPREDNISolone (Medrol Dospak) 4 MG tablets, Follow schedule on MEDROL PACK package instructions to be used as directed, Disp: 21 tablet, Rfl: 0 minocycline 100 MG capsule, Take 1 capsule, by mouth, bid, 30 days (Patient taking differently: Take 1 capsule, by mouth, bid, 30 days PRN), Disp: 60 capsule, Rfl: 0 omeprazole (PriLOSEC) [address] capsule, TAKE 1 CAPSULE BY MOUTH TWICE DAILY, Disp: 180 capsule, Rfl: 3 potassium chloride CR (KLOR-CON) 10 MEQ ER tablet, Take 1 tablet (10 mEq) by mouth in the morning and 1 tablet (10 mEq) before bedtime., Disp: 200 tablet, Rfl: 3 Sunosi 150 MG tablet, , Disp: , Rfl: torsemide (Demadex) 10 MG tablet, Take 1 tablet (10 mg) by mouth Daily, Disp: 30 tablet, Rfl: 2 valACYclovir (Valtrex) 500 MG tablet, Take 500 mg by mouth Daily, Disp: , Rfl: Social History: Social History Socioeconomic History Marital status: Spouse name: Not on file Number of children: Not on file Years of education: Not on file Highest education level: Master's degree (e.g., MA, MS, Grisel, MEd, DETASSELER, LEONEL) 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 Smoking 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 Passive exposure: Never Smokeless tobacco: Never Vaping Use Vaping 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 Used Substance and Sexual Activity Alcohol use: Never Comment: Caffeine intake: 1-2 cups per day soda Drug use: Never Sexual activity: Defer Other Topics Concern Not on file Social History Narrative Not on file Social Determinants of Health Financial Resource Strain: Low Risk [...] min Stress: No Stress Concern Present (07/15/2023) [place] [employer] - Occupational Stress Questionnaire Feeling of Stress : Not at all Social Connections: Socially Integrated (07/15/2023) Social Connection and Isolation Panel [NHANES] Frequency of Communication with Friends and Family: Twice a week Frequency of Social Gatherings with Friends and Family: More than three times a week Attends Christian Services: More than 4 times per year [...] Ankle ROM less than 10 degrees b/l. Minimal pain on palpation to left greater than right peroneus brevis tendon near insertion to 5th metatarsal base bilaterally XRAY: US: ASSESSMENT 1. Peroneal tendinitis, left 2. Peroneal tendinitis, right 3. Venous insufficiency PLAN Patient to continue with oral anti - inflammatories as needed for pain and recommended OTC medications such as tylenol or Ibuprofen Pt presents today for casting of a removable foot inserts/orthotics today that was accomplished with scanning of feet and sent to orthotics lab.(L3020 right and L3020 left foot). Pt to have signed ABN for device if needed. It was explained to the patient of a break in period for the devices. The patient is ambulatory may benefit functionally for this device. It may be used for the following conditions as noted per EMR. Trever Barnard DPM documented in this encounter [facility] 05-27-2024 Telephone encounter Note See orders [facility] Work Phone: 05-27-2024 Miscellaneous Notes See orders documented in this encounter [facility] 05-27-2024 Telephone encounter Note Pt called to inform of a critically low potassium level at 2.6 today. Advised to take 40 meq x 1 now, continue 40 meq bid and Saturday am, repeat k+ level Saturday am. [facility] 05-27-2024 Miscellaneous Notes Pt called to inform of a critically low potassium level at 2.6 today. Advised to take 40 meq x 1 now, continue 40 meq bid and Saturday am, repeat k+ level Saturday am. documented in this encounter [facility] 05-14-2024 History of Present illness Narrative Patient: Linda Alvarado : 1975 PCP: Elver Mendenhall MD SUBJECTIVE This is a 48 y.o. female that presents today for a chief complaint of left greater than right lateral foot pain for the past few years off and on and rates it up to a 8/10 at times. She states she has tried anti-inflammatories with some improvement and pain with 1st steps during the day and with prolonged standing. Pt also presents today for secondary complaint of swelling to b/l ankle regions and feet. They state that condition is starting to worsten have tried no treatments for the condition. States swelling worstens with prolonged standing activities. Allergies: Allergies Allergen Reactions Clarithromycin GI intolerance Sulfa Antibiotics Unknown Past Medical History: Past Medical History: Diagnosis Date Abnormal ECG 12/2018 Asthma (CMS/HCC) Comminuted fracture of shaft of tibia 07/06/2019 RT COVID-19 05/2021 Ectopic 2010 Fracture of tibial plateau GDM (gestational diabetes mellitus) Infertility counseling Miscarriage 2010 OCD (obsessive compulsive disorder) ([facility]) ROBYN (obstructive sleep apnea) Seasonal allergies Medications: [...] mouth Daily, Disp: 45 tablet, Rfl: 3 clindamycin (Cleocin) 300 MG capsule, Take 1 capsule (300 mg) by mouth in the morning and 1 capsule (300 mg) in the evening and 1 capsule (300 mg) before bedtime. Do all this for 7 days., Disp: 21 capsule, Rfl: 0 clindamycin (Clindagel) 1 % gel, Apply to face BID (Patient taking differently: Apply to face BID PRN), Disp: 60 g, Rfl: 1 dilTIAZem CD (Cardizem CD) 120 MG [...] EACH NOSTRIL ONCE DAILY, Disp: , Rfl: hydroCHLOROthiazide (HYDRODiuril) 25 MG tablet, Take 1 tablet (25 mg) by mouth in the morning., Disp: 100 tablet, Rfl: 3 methylPREDNISolone (Medrol Dospak) 4 MG tablets, Follow schedule on MEDROL PACK package instructions to be used as directed, Disp: 21 tablet, Rfl: 0 minocycline 100 MG capsule, Take 1 capsule, by mouth, bid, 30 days (Patient taking differently: Take 1 capsule, by mouth, bid, 30 days PRN), Disp: 60 capsule, Rfl: 0 omeprazole (PriLOSEC) [address] capsule, TAKE 1 CAPSULE BY MOUTH TWICE DAILY, Disp: 180 capsule, Rfl: 3 potassium chloride CR (KLOR-CON) 10 MEQ ER tablet, Take 1 tablet (10 mEq) by mouth in the morning and 1 tablet (10 mEq) before bedtime., Disp: 200 tablet, Rfl: 3 Sunosi 150 MG tablet, , Disp: , Rfl: torsemide (Demadex) 10 MG tablet, Take 1 tablet (10 mg) by mouth Daily, Disp: 30 tablet, Rfl: 2 valACYclovir (Valtrex) 500 MG tablet, Take 500 mg by mouth Daily, Disp: , Rfl: Social History: Social History Socioeconomic History Marital status: Spouse name: Not on file Number of children: Not on file Years of education: Not on file Highest education level: Master's degree (e.g., MA, MS, Grisel, MEd, DETASSELER, LEONEL) 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 Smoking 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 Passive exposure: Never Smokeless tobacco: Never Vaping Use Vaping 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 Used Substance and Sexual Activity Alcohol use: Never Comment: Caffeine intake: 1-2 cups per day soda Drug use: Never Sexual activity: Defer Other Topics Concern Not on file Social History Narrative Not on file Social Determinants of Health Financial Resource Strain: Low Risk [...] min Stress: No Stress Concern Present (07/15/2023) [place] [employer] - Occupational Stress Questionnaire Feeling of Stress : Not at all Social Connections: Socially Integrated (07/15/2023) Social Connection and Isolation Panel [NHANES] Frequency of Communication with Friends and Family: Twice a week Frequency of Social Gatherings with Friends and Family: More than three times a week Attends Christian Services: More than 4 times per year [...] ROS: General: denies fever, chills, fatigue, malaise Gastrointestinal: denies abdominal pain, ulcers, or changes in appetite or bowel habits Musculoskeletal: denies arthritis, denies loss of strength, pain to hip, knees, back Cardiovascular: denies CP, palpitations, irregular rhythms OBJECTIVE LE EXAM: DERM: Positive hair growth [...] Ankle ROM less than 10 degrees b/l. Positive pain on palpation to left greater than right peroneus brevis tendon near insertion to 5th metatarsal base bilaterally XRAY: US: ASSESSMENT 1. Peroneal tendinitis, left 2. Peroneal tendinitis, right 3. Venous insufficiency PLAN Patient placed on Medrol pack today for tendinitis type symptoms and discussed possible walking boot if symptoms not improve or possible physical therapy She has been pre-certify for inserts due to mechanical instability of the foot most likely causing mechanical issues with her foot Discussed briefly different types of shoe gear Visit spent with patient education on condition and treatment of condition. Pt to continue with elevation of feet while resting or NWB. Discussed compression hose and the use of stockings for edema. Discussed condition in detail. Recommendation for [id number] compression stockings at this time and may consider prescription stockings in the future. Trever Barnard DPM documented in this encounter [facility] 05-13-2024 History of Present illness Narrative Images from the original note were not included. Subjective Patient ID: Linda Alvarado is a 48 y.o. female who presents for bilateral leg edema. Linda is present today for evaluation of bilateral leg edema. Admits swelling for weeks but just yesterday her right lower leg was seeping, not seeping today, pain in lower legs and feet, 2 - 3+ pitting edema, tenderness, a little red. She was wearing ankle compression socks but felt it was making the edema go up her leg so stopped wearing them. Also states she does not really have any shoes that fit her, has flat wide feet. States she is seeing a [employer] tomorrow, Dr. Trever Barnard. Does not elevate her legs at night. Pt is scheduled for her sleep study on Saturday. Was told to stop the Sunosi and Adderall before the sleep study so has been off of it for 3 weeks. Also told her to go off of the Citalopram, but she tried and it really bothered her. Current Outpatient Medications on File Prior to Visit Medication Sig Dispense Refill valACYclovir (Valtrex) 500 MG tablet Take 500 mg by mouth Daily Adderall XR 20 MG 24 hr capsule [...] mg) by mouth Daily 45 tablet 3 clindamycin (Clindagel) 1 % gel Apply to face BID (Patient taking differently: Apply to face BID PRN) 60 g 1 dilTIAZem CD (Cardizem CD) [...] 2 SPRAYS IN EACH NOSTRIL ONCE DAILY hydroCHLOROthiazide (HYDRODiuril) 25 MG tablet Take 1 tablet (25 mg) by mouth in the morning. 100 tablet 3 minocycline 100 MG capsule Take 1 capsule, by mouth, bid, 30 days (Patient taking differently: Take 1 capsule, by mouth, bid, 30 days PRN) 60 capsule 0 omeprazole (PriLOSEC) [address] capsule TAKE 1 CAPSULE BY MOUTH TWICE DAILY 180 capsule 3 potassium chloride CR (KLOR-CON) 10 MEQ ER tablet Take 1 tablet (10 mEq) by mouth in the morning and 1 tablet (10 mEq) before bedtime. 200 tablet 3 Sunosi 150 MG tablet [DISCONTINUED] methylPREDNISolone (Medrol Dospak) 4 MG tablets Follow schedule on package instructions 21 tablet 0 No current facility-administered medications on file prior [...] counseling Miscarriage 2011 OCD (obsessive compulsive disorder) (CMS/HCC) ROBYN (obstructive sleep apnea) Seasonal allergies Past Surgical History: Procedure Laterality Date CARPAL TUNNEL RELEASE 2007 SECTION, CLASSIC 2016 COLPOSCOPY 1999, 2001 D&C FIRST TRIMESTER / TX INCOMPLETE / MISSED / SEPTIC / INDUCED 2010 DILATION AND CURETTAGE OF UTERUS 2012 GALLBLADDER 2012 TIBIA FRACTURE SURGERY Right 07/07/2019 ORIF Visit Vitals BP 138/72 Pulse 91 Resp 16 Ht 5' Wt 195 lb 9.6 oz SpO2 97% BMI 38.20 kg/m OB Status Having periods Smoking Status Never BSA 1.94 m Review of Systems Constitutional: Positive for fatigue. Negative for chills and fever. Respiratory: Negative for cough, shortness of breath and wheezing. Cardiovascular: Positive for leg swelling. Negative for chest pain and palpitations. Gastrointestinal: Negative for abdominal pain, constipation, diarrhea, nausea and vomiting. Musculoskeletal: Positive for arthralgias (feet) and joint swelling. Skin: Negative for rash. Objective Physical Exam [...] breath sounds. No wheezing, rhonchi or rales. Musculoskeletal: Right lower le+ Edema present. Left lower le+ Edema present. Right foot: Normal pulse. Left foot: Normal pulse. Comments: Light erythema bilateral lower legs, mild increased warmth to touch Skin: General: Skin is warm and dry. Findings: Erythema present. Neurological: General: No focal deficit present. Mental Status: She is alert and oriented to person, place, and time. Sensory: No sensory deficit. Psychiatric: Mood and Affect: Mood normal. Behavior: Behavior normal. Assessment/Plan Diagnoses and all orders for this visit: Bilateral lower leg cellulitis - clindamycin (Cleocin) 300 MG capsule; Take 1 capsule (300 mg) by mouth in the morning and 1 capsule (300 mg) in the evening and 1 capsule (300 mg) before bedtime. Do all this for 7 days. Start above as prescribed. She has taken this before for cellulitis and tolerated it well. Encounter for screening mammogram for malignant neoplasm of breast - Bilateral screening mammogram with tomosynthesis; Future Provided patient with an order for an updated Mammogram. If results are negative/normal, will plan to continue with routine yearly screenings. Ankle edema - torsemide (Demadex) 10 MG tablet; Take 1 tablet (10 mg) by mouth Daily Add Torsemide daily. Reviewed how the medication works. Continue potassium supplement daily. Elevate legs when possible. Keep appt with Podiatry as scheduled tomorrow. Come in for fasting labs in the next 1-[address] can get her yearly labs done and it will recheck her kidney function and electrolytes after starting the new medication. Follow up if symptoms worsen or fail to improve. documented in this encounter [facility] 10-14-2023 History of Present illness Narrative Images from the original note [...] Visit: 1 year documented in this encounter [facility] 10-10-2023 Evaluation note Encounter Date Diagnosis Assessment Notes Oct, ROBYN (obstructi ve sleep apnea) (ICD-10 - G47.33) [facility] Other 02-02-2024 History of Present illness Narrative* [...] History: Diagnosis Date Abnormal ECG 12/2018 Asthma ([facility]/HCC) Comminuted fracture of shaft of tibia 07/06/2019 RT COVID-19 05/2021 Ectopic 2010 Fracture of tibial plateau GDM (gestational diabetes mellitus) Infertility counseling Miscarriage 2010 OCD (obsessive compulsive disorder) ([facility]) ROBYN (obstructive sleep apnea) Seasonal allergies Past [...] sleepiness The patient is seeing a medical staffing coordinator for this condition, treatment is deferred to that specialist. Correspondence from that specialist and any available testing were reviewed during today's visit. Obstructive sleep apnea The patient is seeing a medical staffing coordinator for this condition, treatment is deferred [...] infertility The patient is seeing a medical staffing coordinator for this condition, treatment is deferred [...] fracture The patient is seeing a medical staffing coordinator for this condition, treatment is deferred [...] (around 11/15/2023) for Recheck. [id number] Evaluation note* Encounter Date Diagnosis Assessment Notes [...] but has reported symptoms in the past [facility] Other 11-28-2023 Evaluation note* Encounter Date Diagnosis Assessment Notes Treatment Notes Treatment Clinical Notes Jul, Mild intermittent asthma, uncomplicated (ICD-10 - J45.20) [facility] Other 10-12-2023 Evaluation note* Encounter Date Diagnosis Assessment Notes Treatment Notes Treatment Clinical Notes Jun, ROBYN (obstructive sleep apnea) (ICD-10 - G47.33) [facility] Other 10-02-2023 Evaluation note* Encounter Date Diagnosis Assessment Notes Treatment Notes Treatment Clinical Notes Jun, ROBYN (obstructive sleep apnea) (ICD-10 - G47.33) [facility] Other 08-01-2023 Evaluation note* Encounter Date Diagnosis [...] is present Apr, Cataplexy (ICD-10 - G47.411) [facility] Other 07-10-2023 Evaluation note* Encounter Date Diagnosis Assessment Notes Treatment Notes Treatment Clinical Notes Mar, Mild intermittent asthma, uncomplicated (ICD-10 - J45.20) [facility] Other 2023 Evaluation note* Encounter Date Diagnosis [...] night before attempted MSLT. Her persistent elevated [place] sleepiness score, at 17, continues to show [...] have not gotten the PSG MSLT documentation [facility] Other 03-23-2023 Evaluation note* Encounter Date Diagnosis Assessment Notes Treatment Notes Treatment Clinical Notes Oct, ROBYN (obstructive sleep apnea) (ICD-10 - G47.33) [facility] Other 12-27-2022 Evaluation note* Encounter Date Diagnosis Assessment Notes Treatment Notes Treatment Clinical Notes Aug, ROBYN (obstructive sleep apnea) (ICD-10 - G47.33) [facility] Other 11-01-2022 Evaluation note* Encounter Date Diagnosis [...] sleepiness does suggest the diagnosis of narcolepsy [facility] Other 09-22-2022 Evaluation note* Encounter Date Diagnosis Assessment Notes Treatment Notes Treatment Clinical Notes May, ROBYN (obstructive sleep apnea) (ICD-10 - G47.33) [facility] Other 07-18-2022 Evaluation note* Encounter Date Diagnosis Assessment Notes Treatment Notes Treatment Clinical Notes Mar, Mild intermittent asthma, uncomplicated (ICD-10 - J45.20) Take Breo 1 inhalation daily if you run out of Advair. [facility] Other 06-24-2022 Evaluation note* Encounter Date Diagnosis Assessment Notes Treatment Notes Treatment Clinical Notes Jan, ROBYN (obstructive sleep apnea) (ICD-10 - G47.33) [facility] Other 06-23-2022 Evaluation note* Encounter Date Diagnosis [...] multiple sleep latency test is likely indicated [facility] Other 03-25-2022 Evaluation note* Encounter Date Diagnosis Assessment Notes Treatment Notes Treatment Clinical Notes Oct, Narcolepsy and cataplexy (ICD-10 - G47.411) [facility] Other 01-07-2022 Evaluation note* Encounter Date Diagnosis Assessment Notes Treatment Notes Treatment Clinical Notes 07 Bautista, 2022 Mild intermittent asthma, uncomplicated (ICD-10 - J45.20) [facility] Other 01-07-2022 Evaluation note* Encounter Date Diagnosis Assessment Notes Treatment Notes Treatment Clinical Notes Sep, Narcolepsy and cataplexy (ICD-10 - G47.411) [facility] Other 12-21-2021 Evaluation note* Encounter Date Diagnosis [...] have significant positive effects on sleep apnea [facility] Other 12-18-2021 Evaluation note* Encounter Date Diagnosis Assessment Notes Treatment Notes Treatment Clinical Notes Aug, Cellulitis of right lower extremity (ICD-10 - L03.115) Use medications as directed. Cover area as instructed. May use gently cleanser to area between daily application as instructed.. Follow up with primary care provider if no improvement of symptoms or if symptoms worsen. [facility] Other 12-01-2021 Evaluation note* Encounter Date Diagnosis Assessment Notes Treatment Notes Treatment Clinical Notes Aug, Narcolepsy and cataplexy (ICD-10 - G47.411) [facility] Other 10-29-2021 Evaluation note* Encounter Date Diagnosis Assessment Notes Treatment Notes Treatment Clinical Notes Jun, Narcolepsy and cataplexy (ICD-10 - G47.411) [facility] Other 09-30-2021 Evaluation note* Encounter Date Diagnosis [...] PAP for ROBYN and med for narcolepsy [employer] [facility] Other 07-12-2021 Progress note Author John Cowan [facility] March 13, 2021 9:57am Note Date/Time March 13, 2021 9:43 am [facility] at [address] [address] Hem/Onc Follow Up Note - OP Signed Patient: Linda Alvarado MR#: [id number] : 1975 Acct:[id number] Age/Sex: 45 / F Type: REG RCR Copies to: MD Gita Navarrete II, PA-C~ Subjective Date/Time of Service: Date of Service: 03/13/2021 Time of Service: 09:37 Chief Complaint: Patient is here for a 4 month follow up for thrombocytosis withlabs 03/08/2021 for review. No concerns are voiced at this time. HPI: 45-year-old female primary patient of Gita Garcia nurse practitioner in [facility]. She is referred for mild thrombocytosis, then [...] lymphoma in her 40s. at 61 of [place]. She had 6 first trimester miscarriages, one [...] of frequent infections or delayed wound healing.] [facility] - Medical History Medical History: Medical History [...] History (Last Reviewed 11/18/20 @ 14:31 by aTwana Black) Grandparent Hypertension Brain cancer Lung cancer [...] % (Auto) 67.8, Lymph % (Auto) 21.7, [place] % (Auto) 6.5, Eos % (Auto) 2.9, Baso % (Auto) 1.1, Neut # (Auto) 5.7, Lymph # (Auto) 1.8, [place] # (Auto) 0.5, Eos # (Auto) 0.2, [...] for coordination of care (as documented) and [id number] counseling of patient and/or family. Dictated By: John Cowan MD DD/ Signed By: <Electronically signed by John Cowan MD> 03/13/21 0957 [facility] Work Phone: 1(904) 411-242203-19-2021 Progress note Author Cheng Almaguer [facility] November 18, 2020 5:11pm Note Date/Time November 18, 2020 2:4 6pm [facility] at [place] [id number] Hem/Onc Follow Up Note - OP Signed with Addenda Patient: Linda Alvarado MR#: [id number] : 1975 Acct:[id number] Age/Sex: 45 / F Type: REG RCR [...] patient of Gita Garcia nurse practitioner in [facility]. She is referred for thrombocytosis. Past medical [...] lymphoma in her 40s. at 61 of [place]. She had 6 first trimester miscarriages, one [...] known thrombosis. she has never had mammogram. [facility] - Medical History Medical History: Medical History [...] for coordination of care (as documented) and [id number] counseling of patient and/or family. Attestation Statement - Physician Attestation cbc, cmp, ferritin, iron, iron sat. Jak2. she will call to discsuss results. f/u with me 1 year. Dictated By: Cheng Almaguer II, DO DD/ 1445 Signed By: <Electronically signed by Cheng Almaguer II, DO> 11/18/20 9269 [facility] Work Phone: 1(840) 239-456603-19-2021 Progress note Author Cheng Almaguer [facility] November 18, 2020 5:10pm Note Date/Time November 18, 2020 5:1 0pm [facility] at [address] [address] Hem/Onc Follow Up Note - OP Signed Patient: Linda Alvarado MR#: [id number] : 1975 Acct:[id number] Age/Sex: 45 / F Type: REG RCR Copies to: MD Gita Navarrete II, PA-C~ Subjective Date/Time of Service: Date of Service: 11/18/2020 Time of Service: 17:09 Chief Complaint: Patient is here today for a referral from LISHA Dhaliwal for elevated platelets HPI: 45-year-old female primary patient of Gita Garcia nurse practitioner in [facility]. She is referred for thrombocytosis. Past medical [...] lymphoma in her 40s. at 61 of [place]. She had 6 first trimester miscarriages, one [...] known thrombosis. she has never had mammogram. [facility] - Medical History Medical History: Medical History [...] % (Auto) 70.1, Lymph % (Auto) 22.2, [place] % (Auto) 4.9, Eos % (Auto) 2.0, Baso % (Auto) 0.8, Neut # (Auto) 7.4, Lymph # (Auto) 2.3, [place] # (Auto) 0.5, Eos # (Auto) 0.2, [...] for coordination of care (as documented) and [id number] counseling of patient and/or family. Attestation Statement - Physician Attestation We will give 2 doses of IV Injectafer and follow-up with me in 3 months. Prior to follow-up check CBC, CMP, iron, ferritin, iron binding capacity. Dictated By: Cheng Almaguer II, DO DD/ 170 Signed By: <Electronically signed by Cheng Almaguer II, DO> 11/18/20 1710 [facility] Work Phone: Evaluation noteNo assessment information available [facility] Work Phone: Evaluation noteNo [employer] Other Evaluation note* Diagnosis Wellness examination- Primary [...] Status Cellulitis of left lower leg noneactive [facility] Work Phone: Evaluation note* Diagnosis Onset Date Resolution Status Cellulitis of left lower leg noneactive Dysuria noneactive [facility] Work Phone: Evaluation note* Diagnosis Onset Date Resolution Status Cellulitis of left lower leg noneactive Abdominal pain acute Hypnagogic hallucinations ac enterprise Narcolepsy and cataplexy acu te OCD (obsessive compulsive disorder) acute ROBYN (obstructive sleep apnea) acute Sleep paralysis acute [facility] Work Phone: Evaluation note* Diagnosis Ankle edema- Primary Edema Hypokalemia Hypopotassemia Peroneal tendinitis of left lower extremity Peroneal tendinitis of right lower extremity Obesity (BMI 30-39.9) Abnormal electrocardiogram Nonspecific abnormal electrocardiogram (ECG) (EKG) Family history of heart disease Venous insufficiency Unspecified venous (peripheral) insufficiency [facility] Peroneal tendinitis, left- Primary Peroneal tendinitis, right Venous insufficiency Unspecified venous (peripheral) insufficiency [facility] Diagnosis Peroneal tendinitis of left lower extremity Peroneal tendinitis of right lower extremity [facility] Diagnosis Peroneal tendinitis, left- Primary Peroneal tendinitis, right Venous insufficiency Unspecified venous (peripheral) insufficiency [facility] Diagnosis Bilateral lower leg cellulitis- Primary Encounter for screening mammogram for malignant neoplasm of breast Ankle edema Edema [facility] Diagnosis Hypokalemia- Primary Hypopotassemia Peroneal tendinitis, left- Primary Peroneal tendinitis, right Venous insufficiency Unspecified venous (peripheral) insufficiency [facility] Diagnosis Peroneal tendinitis, left- Primary Peroneal tendinitis, right Venous insufficiency Unspecified venous (peripheral) insufficiency [facility] Diagnosis Encounter for gynecological examination without abnormal finding- Primary Screening for malignant neoplasm of cervix Screening for malignant neoplasm of the cervix Breast cancer screening by mammogram Chronic sinusitis, unspecified location Encounter for gynecological examination (general) (routine) without abnormal findings documented in this encounter [facility] Narrative - Reported* Type Description Date Medical History allergies Medical History asthma Medical History OCD (obsessive compulsive disord er) Medical History Herpes Medical History ROBYN -Auto BiPAP with maximum of 14 minimum of 5 with pressure support of 4. 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 Name: Linda Alvarado Admitted: 07/07/2019 [...] Referral Specialty Diagnoses / Procedures Referred By Contyesenia t Referred To Contact Radiology Diagnoses Ankle edema Abnormal electrocardiogram Procedures Transthoracic Echo (TTE) Complete Gita Garcia, LISHA [address] [facility] [address] [place] [address] [employer] [facility] [address] [place] [address] Phone: [phone] Referral ID Status Reason Start Date Expiration Date Visits Requested Visits Authorized [id number] Incomplete Perform Procedure 06/03/2024 11/30/2024 1 1 Additional Source Comments INFORMATION SOURCE (unrecogn ized section and content) DATE CREATED AUTHOR 03/28/2018 [facility] Healthcare DATE CREATED AUTHOR AUTHOR'S ORGANIZ ATION 03/29/2018 [facility] DATE CREATED AUTHOR AUTHOR'S ORGANIZ ATION 07/08/2019 [facility] pital DATE CREATED AUTHOR AUTHOR'S ORGANIZ ATION 04/05/2020 [facility] DATE CREATED AUTHOR AUTHOR'S ORGANIZ ATION 09/19/2021 [facility] dical Specialist DATE CREATED AUTHOR AUTHOR'S ORGANIZ ATION 06/25/2024 [facility] DATE CREATED AUTHOR AUTHOR'S ORGANIZ ATION 08/30/2024 [facility] dical Specialists EPIC REASON FOR VISIT (unrecogniz ed section and content) Reason Comments Gynecologic Exam LMP 07/28/24 regular , monthly, normal flow, last 5-7 daysBC: none- hx infertilityLast pap 03-27-23 negLast mammogram 2020. PCP placed order to [facility]. Scheduled in October. Denies breast, urinary, or bowel concerns. Reason Comments Follow-up 2wk l/r pbOrthotic b enefits Reason Onset Date Comments OA call 05/27/2024 [facility] called with a critical lab. Potassium is 2.6. 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 Specialty Start Date End Date Elver Mendenhall MD [address] [facility] [address] [place] [id number] PCP - General Internal Medicine 03/27/23 Team Status: Inactive Member Role Status Dates Elver Mendenhall II MD Primary Care Provider Active Start: December 25, 2023 End: December 25, 2023 NOVA Delgado Attending Provider Active S tart: December 25, [...] May 20, 2024 End: May 20, 2024 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 Specialty Start Date End Date Elver Mendenhall MD [address] [facility] [address] [place] [id number] PCP - General Internal Medicine 03/27/23 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 Specialty Start Date End Date Elver Mendenhall MD [address] [place] [address] [place] [id number] PCP - General Internal Medicine 03/27/23 Team Status: Active Member Role Status Dates BEAR DhaliwalC Primary Care Provider Active Team Status: Inactive [...] July 16, 2024 End: July 16, 2024 Gita Garcia NP-C Primary Care Provider Active Start: July 16, 2024 End: July 16, 2024 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 Specialty Start Date End Date Elver Mendenhall MD [address] [place] [address] [place] [id number] PCP - General Internal Medicine 03/27/23 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 Specialty Start Date End Date Elver Mendenhall MD [address] [place] [address] [place] [id number] PCP - General Internal Medicine 03/27/23 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 Specialty Start Date End Date Elver Mendenhall MD [address] [place] [address] [place] [address] PCP - General Internal Medicine 03/27/23 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 Specialty Start Date End Date Elver Mendenhall MD [address] [place] [address] [place] [address] PCP - General Internal Medicine 03/27/23 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 Specialty Start Date End Date Elver Mendenhall MD [address] [place] [address] [place] [address] PCP - General Internal Medicine 03/27/23 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 Specialty Start Date End Date Elver Mendenhall MD [address] [facility] [address] [place] [address] PCP - General Internal Medicine 03/27/23 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 Specialty Start Date End Date Elver Mendenhall MD [address] [facility] [address] [place] [address] PCP - General Internal Medicine 03/27/23 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 Specialty Start Date End Date Elver Mendenhall MD [address] [facility] [address] [place] [address] PCP - General Internal Medicine 03/27/23 Goals [...] BE BASED ON THE PRIMARY CLINICAL RECORDS. [facility]. provides no warranty or guarantee of the accuracy or completeness of information in this document.
--- NOTE | 2024-10-07 00:49 | ED.GENADUL1 ---
HPI HPI - General Adult General Chief complaint: Headache Stated complaint: HEADACHE, NAUSEA Time Seen by Provider: 10/07/24 00:49 Source: patient Mode of arrival: walk-in Limitations: no limitations History of Present Illness HPI narrative: This 49-year-old female with a history of migraine headaches presents for evaluation of a migraine headache for the past 3 days associated with nausea, dry heaves and photophobia. It is a frontal headache throbbing in nature. It is a typical migraine for her. She has tried taking Relpax several times without significant improvement. She has no neck pain or stiffness. She has not had a fever. She denies any thunderclap presentation of the headache. Related Data Home Medications ?Medication ?Instructions ?Recorded ?Confirmed atorvastatin 10 mg tablet 10 mg PO DAILY 05/03/23 05/30/24 citalopram 40 mg tablet 20 mg PO .qhs 05/03/23 05/31/24 dextroamphetamine-amphetamine 20 20 mg PO DAILY 05/03/23 05/30/24 mg tablet diltiazem HCl 120 mg 120 mg PO .qhs 05/03/23 05/31/24 capsule,extended release 24 hr omeprazole 40 mg capsule,delayed 40 mg PO BID 05/03/23 05/30/24 release solriamfetol 150 mg tablet (Sunosi) 150 mg PO DAILY 05/03/23 05/30/24 valacyclovir 500 mg tablet 500 mg PO DAILY 05/03/23 05/30/24 eletriptan 40 mg tablet 40 mg PO Q2H PRN headache 05/30/24 05/31/24 fluticasone 500 mcg-salmeterol 50 1 inh inhalation BID 05/30/24 05/31/24 mcg/dose blistr powdr for inhalation fluticasone propionate 50 1 spray intranasal DAILY 05/30/24 05/31/24 mcg/actuation nasal spray,suspension Previous Rx's ?Medication ?Instructions ?Recorded potassium chloride 20 mEq 20 meq PO BID #60 tabs 05/31/24 tablet,extended release torsemide 10 mg tablet 10 mg PO QDAY PRN Lower Leg edema 05/31/24 #0 tabs methocarbamol 750 mg tablet 750 mg PO TID PRN pain #20 tabs 06/22/24 methylprednisolone 4 mg tablets in See Rx Instructions .Route 06/22/24 a dose pack (Medrol (Tomer)) .COMPLEX #21 ea oxycodone-acetaminophen 5 mg-325 1 tab PO Q6H PRN pain 3 days #12 06/22/24 mg tablet (Percocet) tabs Allergies Allergy/AdvReac Type Severity Reaction Status Date / Time sulfamethoxazole (From Allergy unknown Verified 05/30/24 20:28 Bactrim) trimethoprim (From Bactrim) Allergy unknown Verified 05/30/24 20:28 Sulfa (Sulfonamide AdvReac Mild Unknown Verified 05/30/24 20:28 Antibiotics) Opioid HPI Opioid Management Most Recent Opioid Data: Last Pain Scale 10 10/07/24 00:42 10/07/24 Last ORT Total Score 0 05/30/24 23:48 05/30/24 Last ORT Risk Category Low Risk 05/30/24 23:48 05/30/24 Review of Systems ROS Status of ROS 10 or more systems reviewed and unremarkable except as noted in history and below [facility] Medical History (Updated 10/07/24 @ 02:55 by Vanessa Waite MD) Morbid obesity ?E66.01 - Morbid (severe) obesity due to excess calories (ICD-10) HLD (hyperlipidemia) ?E78.5 - Hyperlipidemia, unspecified (ICD-10) ADHD ?F90.9 - Attention-deficit hyperactivity disorder, unspecified type (ICD-10) ROBYN (obstructive sleep apnea) ?G47.33 - Obstructive sleep apnea (adult) (pediatric) (ICD-10) HTN (hypertension) ?I10 - Essential (primary) hypertension (ICD-10) Peripheral edema ?R60.0 - Localized edema (ICD-10) Colonoscopy planned H/O acute cholecystitis ?Z87.19 - Personal history of other diseases of the digestive system (ICD-10) Cholecystectomy planned High blood cholesterol ?E78.00 - Pure hypercholesterolemia, unspecified (ICD-10) Asthma ?J45.909 - Unspecified asthma, uncomplicated (ICD-10) Abdominal pain ?R10.9 - Unspecified abdominal pain (ICD-10) Numbness and tingling ?R20.0 - Anesthesia of skin (ICD-10) ?R20.2 - Paresthesia of skin (ICD-10) Hypokalemia ?E87.6 - Hypokalemia (ICD-10) Surgical History (Updated 05/30/24 @ 23:42 by Dilshad Jc) History of orthopedic surgery ?Z98.890 - Other specified postprocedural states (ICD-10) Family History (Updated 05/30/24 @ 23:44 by Dilshad Jc) Mother Family history of myocardial infarction Family history of cancer Father Family history of myocardial infarction Social History Within the past year, how often did you have a drink containing alcohol: never Score interpretation: A score less than 3 is consistent with normal alcohol consumption. Smoking 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 smoker Non-prescribed substance use: denies use Highest level of school completed/degree received: high school graduate Little interest or pleasure in doing things: not at all Feeling down, depressed, or hopeless: not at all Exam Narrative Exam Narrative: Vital signs and Nursing Notes reviewed: Patient is afebrile with a normal pulse, blood pressure is elevated 146/82, she is moderately hypoxic with pulse ox of 93% on room air General: Alert, nontoxic but uncomfortable appearing female, no respiratory distress, no active vomiting or dry heaves HEENT: Normocephalic atraumatic, mucous membranes are moist and pink, eyes are clear, normal conjunctiva, vision is grossly intact, mild photophobia noted Neck: Supple, no meningeal signs Chest: Lungs are clear to auscultation with good air entry, there is no wheezing rhonchi or rales appreciated no accessory muscle use, patient is speaking in complete sentences-no chest wall tenderness to palpation CVS: Regular rate and rhythm S1-S2, no murmurs rubs or gallops, pulses are brisk and equal bilaterally ABD: Soft, nondistended, nontender, no rebound guarding or rigidity, bowel sounds are normal, no pulsatile masses appreciated Extremities: Moving all extremities, no lower extremity tenderness or swelling noted, negative Homans' sign, pulses are brisk and equal bilaterally Skin: Normal in appearance without rash,pallor, petechiae or purpura Neuro: No focal deficits, speech is clear, color drum worker strength is intact, upper and lower extremity strength and sensation is intact Constitutional Vital Signs, click to edit/add: Last Vital Signs Temp 98.5 F 10/07/24 00:37 Pulse 95 H 10/07/24 00:37 Resp 18 10/07/24 00:37 BP 146/82 H 10/07/24 00:37 Pulse Ox 92 L 10/07/24 00:37 O2 Del Method Room Air 10/07/24 00:37 Course Vital Signs Vital signs: Vital Signs Temperature 98.5 F 10/07/24 00:37 Pulse Rate 95 H 10/07/24 00:37 Respiratory Rate 18 10/07/24 00:37 Blood Pressure 146/82 H 10/07/24 00:37 Pulse Oximetry 92 L 10/07/24 00:37 Oxygen Delivery Method Room Air 10/07/24 00:37 Temperature 98.5 F 10/07/24 00:37 Pulse Rate 95 H 10/07/24 00:37 Respiratory Rate 18 10/07/24 00:37 Blood Pressure 146/82 H 10/07/24 00:37 Pulse Oximetry 92 L 10/07/24 00:37 Oxygen Delivery Method Room Air 10/07/24 00:37 Medical Decision Making MDM Narrative Medical decision making narrative: This 49-year-old female with a history of migraine headaches presents for evaluation of a migraine headache for the past 3 days associated with nausea, dry heaves and photophobia. She has taken several doses of Relpax without significant improvement. She denies any fevers chills. She denies any thunderclap presentation of her headache. Her physical exam and neuroexam are normal. An IV was placed and she was medicated with IV fluids, Toradol, Zofran and Decadron. On reevaluation most of her pain has resolved but she is still having some degree of headache mostly in the frontal region. She is not driving as her is dropped her off and she will be given a dose of [place]. On reevaluation she is feeling better and will be discharged home with a prescription for Compazine. She was encouraged drink plenty of fluids and rest and return the emergency department for worsening symptoms or any concerns. Discharge Plan Discharge Chief Complaint: Headache Clinical Impression: Migraine Prescriptions / Home Meds: No Action atorvastatin 10 mg tablet 10 mg PO DAILY citalopram 40 mg tablet 20 mg PO .qhs dextroamphetamine-amphetamine 20 mg tablet 20 mg PO DAILY diltiazem HCl 120 mg capsule,extended release 24hr 120 mg PO .qhs omeprazole 40 mg capsule,delayed release(DR/EC) 40 mg PO BID Sunosi 150 mg tablet 150 mg PO DAILY valacyclovir 500 mg tablet 500 mg PO DAILY fluticasone propion-salmeterol 500-50 mcg/dose blister with device 1 inh INHALATION BID fluticasone propionate 50 mcg/actuation spray,suspension 1 spray INTRANASAL DAILY eletriptan 40 mg tablet 40 mg PO Q2H PRN (Reason: headache) potassium chloride 20 mEq tablet extended release 20 meq PO BID Qty: 60 0RF torsemide 10 mg tablet 10 mg PO QDAY PRN (Reason: Lower Leg edema) Qty: 0 0RF oxycodone-acetaminophen [Percocet] 5-325 mg tablet 1 tab PO Q6H PRN (Reason: pain) 3 Days Qty: 12 0RF Rx Instructions: DX: M54.5 methocarbamol 750 mg tablet 750 mg PO TID PRN (Reason: pain) Qty: 20 0RF methylprednisolone [Medrol (Tomer)] 4 mg tablets,dose pack See Rx Instructions .ROUTE .COMPLEX Qty: 21 0RF Rx Instructions: Taper as directed Print Language: Citizen [place] Referrals: DOMITILA HUYNH [Primary Care Provider] - 1 week
[2024-10-07] MEDS: 0.9 % SODIUM CHLORIDE 1,000 ML 1000 ML IV (01:29)
[2024-10-07] MEDS: KETOROLAC TROMETHAMINE 30 MG/ML VIAL IVP (01:29)
[2024-10-07] MEDS: DEXAMETHASONE SOD PHOS 10 MG/ML VIAL IV (01:29)
[2024-10-07] MEDS: ONDANSETRON PF 4 MG/2 ML VIAL IV (01:29)
[2024-10-07] MEDS: HYDROCODONE/ACET 5-325 MG TABLET 1 TAB PO (02:35)
== END 2024-10-07 03:24 | disposition home or self-care (01) ==
LOC: ER 00:38
PROVIDERS: Emergency Provider Emergency Medicine; PCP Internal Medicine
DX: G43.909 Migraine, unspecified, not intractable, without status migrainosus (principal)
CPT/HCPCS: 99284; J1100; J1885; J2405

== ENCOUNTER 2024-11-06 00:01 | Emergency (ER) | payer BC, SELFPAY ==
[2024-11-06 00:06] VITALS: BP 123/94; PULSE 98; TEMP 36.7; O2SAT 100; BMI 36.1
--- OUTSIDE RECORDS SUMMARY | 2024-11-06 00:14 | XMS_ITS | CCD ---
Author Organization [facility] CliniSyme Care Team Providers Care Secondary Art Teacher Name Role Phone UNKNOWN, PROVIDER Unavailable Unavailable ELVER MENDENHALL Unavailable Unavailable ABDIRASHID, ELVER Primary Care Unavailable NAOMI MOROCHO Admitting [...] DOSS Admitting Unavailable LESLYE DOSS Attending Unavailable KEO, EBEN Warner Consulting Unavailable LUBNA MANZANARES Consulting Unavailable ELVER MENDENHALL Primary Care Unavailable LESLYE DOSS Referring Unavailable IAN KU Attending Unavailable EBRAIAN LLANES Admitting Unavailable [place] Procedure Practitioner Unavailab IAN [place] Surgeon Unavailable Jane Waller Unavailable Ciera Mcwilliams Unavailable Tracy Oliver Unavailable OSCAR Mendenhall Primary Care Provider [phone] MD Jane Waller Attending Provider [phone] OSCAR Mendenhall Primary Care Provider [phone] MD Jane Waller Attending Provider Efraín Patel Unavailable OSCAR Mendenhall Primary Care Provider [phone] MD Jane Waller. Attending Provider Elver Mendenhall MD Primary Care Provider OSCAR Mendenhall Primary Care Provider MD Jane Waller Attending Provider [phone] Jane Waller Admitting Unavailable Jane Waller Attending Unavailable AbdirashidSageel [facility] Unavailable Jane Waller Attending Unavailable Jane Waller Admitting Unavailable Abdirashid Elver [facility] Unavailable Jane Waller Attending Unavailable Jane Waller Admitting Unavailable Abdirashid MOORESageel [facility] Provider Jane Waller MD Attending Provider GITA GARCIA Referring Unavailable SEB KITCHEN Attending Unavailable SEB KITCHEN Referring Unavailable GITA GARCIA Attending Unavailable TREVER BARNARD Attending Unavailable TREVER BARNARD Attending Unavailable GITA GARCIA Attending Unavailable TREVER BARNARD Attending Unavailable LENNY SNOW Attending Unavailable Allergies Allergy Classification Reported Allergen(s) Allergy Type Date of Onset Reaction(s) Facility (2 sources) Morphine Drug Allergy [address] [facility] Repository (1 source) Sulfamethoxazole / Trimethoprim Drug Allergy [address] [facility] Repository (1 source) Sulfonamides (Antibiotic) Drug allergy (disorder) 9 [facility] Repository (20 sources) Clarithromycin; Translations: [clarithromycin] Drug Allergy 1 GI intolerance [facility] (13 sources) Sulfanilamide; Translations: [sulfanilamide] Drug Allergy 1 Unknown Reaction, Anaphylaxis [facility] (20 sources) Sulfonamides (Antibiotic) Drug Allergy 3 [...] Twice a day for 90 day(s) Active albuterol 0.83 mg/ml inhalation solution (20 sources) beta2-Adrenergic Agonist Start: 08-03-2024 take 3 mL by inhalation four times daily as needed Albuterol Sulfate 2.5 mg /3 mL (0.083 %) solution for nebulization Active 2.5 MG INHALATION Four times daily as needed August 03, 2024 12:00am [employer] ml Inhalation qid prn dx: J45.20 asthma; Note: Source Status: Taking; Provider: Poppy Vang Start: 11-18-2020 take 1 puff(s) by in halation every four to six hours as needed [...] January 30, 2024 8:53am Start: 12-20-2020 End: 10-28-2024 take 1 tablet by mouth once daily Dextroamphetamine-Amphetamine (Adderall) 20 mg tablet Active 0 PO Daily 90 90 October 28, 2024 1/2 to 1 tablet at noon orally daily; atorvastatin 10 mg oral tablet (20 sources) HMG-CoA Reductase Inhibitor Start: 11-18-2020 take 1 tablet by mouth once daily Atorvastatin 10 mg Tablet Active 10 MG PO Daily November 17, 2020 11:00pm Bilevel Positive Airway Pressure (Bipap) unit (1 source) Start: 07-20-2024 Bilevel Positi ve Airway Pressure (Bipap) unit Active 0 .Route July 20, 2024 12:00am As directed [facility] [email or web address] see's Dr. Waller BIPAP Machine (20 sources) BIPAP Machine Active cetirizine hydrochloride 10 mg oral tablet (20 sources) Histamine-1 Receptor Antagonist Start: 11-18-2020 take 1 tablet by mouth once daily as needed Cetirizine 10 mg Tablet Active 10 MG PO Daily as needed for seasonal allergy November 17, 2020 11:00pm take 1 capsule by mo [facility] every twenty-four hours ZyrTEC Allergy 10 MG 1 tab(s) Orally Daily Active cholecalciferol 0.05 mg oral capsule (20 sources) Vitamin D cholecalciferol (Vitamin D-3) 50 MCG (1999) capsule Active citalopram 40 mg oral tablet (20 sources) Serotonin Reuptake Inhibitor Start: 11-19-19 End: 08-22-20 take 0.5 tablet by mouth once daily Citalopram 40 mg tablet Active 20 MG PO Once August 22, 2024 11:17am 1/2 tablet orally once a day Start: 11-18-2020 End: 01-30-2024 take 0.5 tablet [...] Start: 02-28-2023 take 1 capsule by mo [facility] every twenty-four hours in the morning dilTIAZem CD (Cardizem CD) 120 MG 24 hr capsule Indications: Tachycardia Take 1 capsule (120 mg) by mouth in the morning. 100 capsule 3 02/28/2023 Active Start: 11-18-2020 take 120 mg by mouth once demario y Diltiazem Hcl Active 120 MG PO Daily November 18, 2020 12:00am Diltiazem Hcl 120 mg Capsule,Ext.Rel 24h Degradable (2 sources) Start: 11-18-2020 take 1 capsule by mouth once daily Diltiazem Hcl 120 mg Capsule,Ext.Rel 24h Degradable Active 120 MG PO Daily November 17, 2020 11:00pm doxycycline hyclate 100 mg oral capsule (9 sources) Tetracyclin e-class Drug Start: 08-22-2024 take 1 capsule by mouth in the morning doxycycline (Vibramycin) 100 MG capsule Take 100 mg by mouth in the morning and 100 mg before bedtime. 08/22/2024 Active Start: 08-19-2021 take 1 capsule by mo [facility] every twelve hours Doxycycline Monohydrate 100 MG 1 capsule Orally every 12 hrs for 7 days Aug, Active eletriptan 40 mg oral tablet (20 sources) Serotonin-1b and Serotonin-1d Receptor Agonist Start: 11-18-2020 take 1 tablet by mouth every two hours for headache, then take 2 tablets by mouth every twenty-four hours for headache Eletriptan (Relpax) 40 mg Tablet Active 40 MG PO As Directed as needed for Migraine Headache November 17, 2020 11:00pm take 1 tablet if headache returns the dose may be repeated after 2 hours but no more than 2 doses should be given within 24 hour period fluconazole 150 mg oral tablet (17 sources) Azole Antifungal Start: 07-13-2024 fluconazole (Diflucan) 150 MG tablet Indications: Perioral dermatitis Take 1 tablet (150 mg) by mouth in the morning for 1 day. Repeat in seven days if symptoms don't resolve. 1 tablet 1 07/13/2024 Active Start: 12-25-2023 End: 08-22-2024 take 1 tablet by mouth once Fluconazole 150 mg tablet Discontinued 150 MG PO Once December 24, 2023 11:00pm August 22, 2024 11:18am Start: 08-19-2021 Diflucan 150 M G 1 [...] NOSTRIL ONCE DAILY 10/28/2022 Active Start: 11-18-2020 End: 08-03-2024 Fluticasone Propionate (Flon ase) 50 mcg/actuation [place],Suspension Discontinued 1 SPRAY INTRANASAL Daily November 17, 2020 11:00pm August 03, 2024 3:39pm take 1-2 spray(s) na pankaj route once daily Fluticasone Propionate 50 MCG/ACT 1-2 spray in each nostril Nasally Once a day for 30 day(s) Active Fluticasone Propion-Salmeterol (20 sources) Corticosteroid, beta2-Adrenergic Agonist Start: 08-03-2024 Fluticasone Propion-Salmeterol 500-50 mcg/dose blister with device Active 1 INH INHALATION Twice daily 3 90 August 03, 2024 4:11pm Start: 08-03-2024 End: 08-03-2024 Fluticasone Propion-Salmeter ol 500-50 mcg/dose blister with device Discontinued 1 INH INHALATION Twice daily August 03, 2024 12:00am August 03, 2024 4:12pm Start: 03-13-2023 take 1 puff(s) by in halation twice daily Advair Diskus 500-50 MCG/ACT aerosol [...] INHALATION Twice daily November 18, 2020 12:00am methocarbamol 750 mg oral tablet (1 source) [...] Start: 07-13-2024 take 1 capsule by mo ut twice daily minocycline 100 MG capsule Indications: Perioral dermatitis Take 1 capsule, by mouth, bid, 30 days 60 capsule 07/13/2024 Active Start: 09-17-2023 take 1 capsule by mo ut twice daily minocycline 100 MG capsule Indications: [...] Start: 09-26-2023 take 1 capsule by mo ut twice daily omeprazole (PriLOSEC) [address] capsule Indications: Gastroesophageal reflux disease without esophagitis TAKE 1 CAPSULE BY MOUTH TWICE DAILY 180 capsule 3 09/26/2023 Active Start: 11-18-2020 take 1 capsule by mo [facility] once daily Omeprazole 40 mg Capsule,Delayed Release(Dr/Ec) Active 40 MG PO Daily November 17, 2020 11:00pm potassium chloride 20 meq extended release oral tablet (20 sources) Start: 08-22-2024 take 1 tablet by mouth twice daily Potassium Chloride 20 mEq tablet extended release Active 20 MEQ PO Twice daily August 22, 2024 12:00am Start: 08-03-2024 take 2 tablets by mo [facility] in the morning potassium chloride CR (Klor-Con) 10 MEQ ER tablet Indications: Hypokalemia Take 2 tablets (20 mEq) by mouth in the morning and 2 tablets (20 mEq) before bedtime. 120 tablet 6 08/03/2024 Active Start: 10-02-2024 take 2 tablets by mo [facility] in the morning potassium chloride CR (Klor-Con) [...] at the same time. 0 09/24/2022 Active predniSONE 10 mg oral tablet (2 sources) Start: 10-12-2024 Prednisone 10 mg tablet Active 10 MG PO As Directed October 12, 2024 12:00am 4 tablets daily x 3 days, 2 tablets daily x 3 days, 1 tablet daily x 7 days then stop Start: 08-22-2024 End: 10-12-2024 take 2 tablets by mouth once daily Prednisone 20 mg tablet Discontinued 20 MG PO .COMPLEX August 22, 2024 12:00am October 12, 2024 12:41pm Take 2 tabs po daily x 5 days ProAir HFA 108 (90 Base) MCG/ACT (12 sources) take 2 puff(s) by inhalation every four hours as needed ProAir HFA 108 (90 Base) MCG/ACT 2 puffs as needed Inhalation every 4 hrs for 30 days Active solriamfetol 150 mg oral tablet (20 sources) Start: 02-06-2023 Sunosi 150 MG tablet 03/11/2023 Active Start: 02-06-2023 [facility] Sunosi 75 MG 1 tablet in the morning Orally Once a day for 15 days Jan, Active Solriamfetol (Sunosi) 150 mg tablet (13 sources) Start: 10-28-2024 take 1 tablet by mouth once daily Solriamfetol (Sunosi) 150 mg tablet Active 150 MG PO Daily October 28, 2024 4:58pm Start: 08-04-2024 End: 10-28-2024 take 1 tablet by mouth once daily Solriamfetol (Sunosi) 150 mg tablet Discontinued 150 MG PO Daily August 04, 2024 12:43pm October 28, 2024 4:58pm Start: 03-11-2024 End: 08-04-2024 take 1 tablet by mouth once daily Solriamfetol (Sunosi) 150 mg tablet Discontinued 150 MG PO Daily March 11, 2024 12:15pm August 04, 2024 12:44pm Start: 03-11-2024 take 1 tablet by willow [...] (Original) cefTRIAXone (18 sources) Cephalosporin Antibacterial Start: 03-10-20 Rocephin 500 mg Mar, 500 mg cyclobenzaprine hydrochloride 5 mg oral tablet (12 sources) Muscle Relaxant Start: 11-19-19 End: 01-30-20 Cyclobenzaprine 5 mg Tablet Discontinued 5 MG PO As Directed as needed for Muscle Spasm November 17, 2020 11:00pm January 30, 2024 8:52am hydroCHLOROthiazide 25 mg oral tablet (20 sources) Thiazide Diuretic Start: 11-19-19 End: 07-16-20 take 1 tablet by mouth once daily Hydrochlorothiazide 25 mg tablet Discontinued 25 MG PO Daily December 24, 2023 11:00pm July 16, 2024 4:20pm modafinil 200 mg oral tablet (12 sources) Sympathomimetic-l thanh Agent Start: 11-19-19 End: 03-13-20 take 1 tablet by mouth twice daily Modafinil 200 mg Tablet Discontinued 200 MG PO Twice daily November 17, 2020 11:00pm March 13, 2021 8:12am mupirocin 0.02 mg/mg topical ointment (20 sources) RNA Synthetase Inhibitor Antibacterial Start: 08-19-20 Mupirocin 2 % 1 application with Qtip to affected area Externally 2 times a day for 7 days Aug, Not-Taking/PRN Potassium Chloride (Klor-Con M10) 10 mEq tablet,ER particles/crystals (2 sources) Start: 07-16-20 End: 08-22-20 Potassium Chloride (Klor-Con M10) 10 mEq tablet,ER particles/crystals Discontinued MEQ PO July 16, 2024 12:00am August 22, 2024 11:19am Start: 07-16-2024 Potassium Chlo ride (Klor-Con M10) 10 mEq tablet,ER particles/crystals Active MEQ PO July 16, 2024 12:00am promethazine hydrochloride 25 mg oral tablet (12 sources) Phenothiazine Start: 11-18-2020 End: 12-25-2023 take 1 tablet by mouth twice daily Promethazine 25 mg Tablet Discontinued 25 MG PO Twice daily November 17, 2020 11:00pm December 25, 2023 4:18pm torsemide 10 mg oral tablet (20 sources) Loop Diuretic Start: 05-13-2024 End: 08-22-2024 Torsemide 10 mg tablet Discontinued 10 MG PO July 16, 2024 12:00am August 22, 2024 11:21am valACYclovir 500 mg oral tablet (20 sources) Herpesvirus Nucleoside Analog DNA Polymerase Inhibitor, Herpes Simplex Virus Nucleoside Analog DNA Polymerase Inhibitor, Herpes Zoster Virus Nucleoside Analog DNA Polymerase Inhibitor Start: 03-21-2024 End: 08-28-2025 Valacyclovir 500 mg tablet Discontinued 500 MG PO July 16, 2024 12:00am August 22, 2024 11:21am Start: 11-18-2020 End: 12-25-2023 take 1 tablet [...] Problem Date Documented Date Episodic/Chronic Abdominal pain (20 sources) Abdominal pain; Translations: [Unspecified abdominal pain] Onset: 05-13-2024 01-09-2024 Episodic Anxiety disorders (20 sources) Obsessive-compulsive disorder; Translations: [Obsessive-compulsive disorder, unspecified] Onset: 11-17-2008 02-20-2023 Chronic Anxiety disorders (1 source) Obsessive-compulsive disorder, unspecified; Translations: [OBSESSIVE-COMPULSIVE D/O UNSPEC] Onset: 01-06-2019 Asthma (20 sources) Unspecified asthma, uncomplicated; Translations: [Mild intermittent asthma] Onset: 07-08-2019 Resolved: 03-28-2023 Chronic Deficiency and other anemia (20 sources) Anemia; Translations: [Anemia, unspecified] Onset: 10-04-2023 03-13-2021 Episodic Disorders of lipid metabolism (20 sources) Mixed [...] 08-28-2024 Chronic Other aftercare (1 source) Other usp (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 therapy; Translations: [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 DRUG THERAPY] Onset: 07-08-2019 Episodic Other [...] Onset: 11-17-2008 02-20-2023 Chronic Other upper respiratory disease (1 source) Seasonal allergy; Translations: [Other seasonal allergic rhinitis] 08-03-2024 Chronic Other upper respiratory disease (1 source) Other seasonal allergic rhinitis; Translations: [Allergic rhinitis, cause unspecified] 08-03-2024 Chronic Other upper respiratory infections (1 source) Chronic sinusitis; Translations: [Chronic sinusitis, unspecified] 08-28-2024 Chronic Other upper respiratory infections (2 sources) Acute sinusitis; Translations: [Acute sinusitis, unspecified] 08-22-2024 Episodic Residual codes; unclassified (17 sources) Obstructive sleep [...] Classification Problem Date Documented Da te Episodic/Chronic Cardiac dysrhythmias (20 sources) Tachycardia; Translations: [Tachycardia, unspecified] Onset: 02-20-2023 02-20-2023 Episodic Contraceptive and procreative management (20 sources) Patient encounter status; Translations: [Encounter for fertility testing] Onset: 01-09-2011 Resolved: 10-04-2023 03-27-2023 Episodic Diabetes mellitus without complication (20 sources) [...] [NAUSEA WITH VOMITING UNSPECIFIED] Onset: 12-27-2018 Episodic Noninfectious gastroenteritis (1 source) Noninfective gastroenteritis [...] OTH PART DIGESTV TRACT] Onset: 01-06-2019 Episodic Skin and subcutaneous tissue infections (6 sources) Cellulitis of right lower limb; Translations: [Cellulitis of left lower limb] Onset: 08-19-2021 Resolved: 08-19-2021 Episodic Syncope (1 source) Syncope and collapse; Translations: [SYNCOPE AND COLLAPSE] Onset: 01-06-2019 Episodic Results Test Name Value Interpretation Reference Range Facility BI MAMMOGRAM SCREENING TOMOS YNTHESIS BILATERALon 10-27-2024 BI MAMMOGRAM SCREENING TOMOSYNTHESIS BILATERAL This is a summary report. The complete report is available in the patient's medical record. If you cannot access the medical record, please contact the sending organization for a detailed fax or copy. Examination: BI MAMMOGRAM SCREENING TOMOSYNTHESIS BILATERAL Clinical History: SCREENING Technique: Screening digital mammography study of both breasts was performed with 2-D and 3-D tomosynthesis imaging. Study was compared to the prior exam dated 12/09/2020. Findings: There is no evidence of interval dominant spiculated mass, grouped microcalcifications, or skin thickening which would be suggestive of malignancy. IMPRESSION: Impression: No specific evidence of malignancy seen in either breast. BIRADS 2 - Benign Findings DENSITY: There are scattered areas of fibroglandular density. FOLLOW-UP: Routine Screening Mammogram ELECTRONICALLY SIGNED BY: Matty Gaitan M.D. Normal Not Available Amphetamine Screen Ql (U)Ord ered By: Jane Waller on 05-20-2024 Amphetamines Ql (U) Amphetamines screen Negativ e [facility] Amphetamines Ql (U) Negative Negative [facility] Barbiturates [Presence] in U rine by Screen methodOrdered By: Jane Waller on 05-20-2024 Barbiturates Screen Ql (U) Negative Negative [facility] Barbiturates Screen Ql (U) Barbiturates [Presence] in Urine by Screen method Negative [facility] Benzodiazepines Screen Ql (U )Ordered By: Jane Waller on 05-20-2024 Benzodiazepines Ql (U) Negative Negative [facility] Benzodiazepines Ql (U) Benzodiazepines [Presence] in Urine by Screen method Negative [facility] Benzoylecgonine [Presence] i n Urine by Screen methodOrdered By: Jane Waller on 05-20-2024 Benzoylecgonine Screen Ql (U) Negative Negative [facility] Benzoylecgonine Screen Ql (U) Benzoylecgonine [Presence] in Urine by Screen method Negative [facility] Cannabinoids [Presence] in U rine by Screen methodOrdered By: Jane Waller on 05-20-2024 Cannabinoids Screen Ql (U) Negative Negative [facility] Comment on above: These are unconfirme d results and should not be used for legal purposes. Drug Cut-Off Concentration: AMPH 1000 ng/mL KEITH 200 ng/mL LARS 200 ng/mL COCM 300 ng/mL OP 300 ng/mL PCP 25 ng/mL THC 20 ng/mL Cannabinoids Screen Ql (U) Cannabinoids [Presence] in Urine by Screen method Negative [facility] Comment on above: These are unconfirme d results and should not be used for legal purposes. Drug Cut-Off Concentration: AMPH 1000 ng/mL KEITH 200 ng/mL LARS 200 ng/mL COCM 300 ng/mL OP 300 ng/mL PCP 25 ng/mL THC 20 ng/mL Drug Screen,Urineon 05-20-20 24 Amphetamine Screen,Urine Negative Normal Negative [facility] Comment on above: Performed By: #### U RDS #### [address] Barbiturate Screen,Urine Negative Normal Negative [facility] Comment on above: Performed By: #### U RDS #### [facility] [address] [place] [address] [place] Benzodiazepines Screen,Urine Negative Normal Negative [facility] Comment on above: Performed By: #### U RDS #### [address] Cannabinoid Screen,Urine Negative Normal Negative [facility] Comment on above: Result Comment: Thes e are unconfirmed results and should not be used for legal purposes. Drug Cut-Off Concentration: AMPH 1000 ng/mL KEITH 200 ng/mL LARS 200 ng/mL COCM 300 ng/mL OP 300 ng/mL PCP 25 ng/mL THC 20 ng/mL PERFORMED BY: [place] [address] PATHOLOGIST CONTINUITY WRITER YENNIFER BROWN M.D. Performed By: #### U RDS #### [place] [address] [place] Cocaine Screen,Urine Negative Normal Negative [facility] Comment on above: Performed By: #### U RDS #### [place] [address] [place] Opiate Screen,Urine Negative Normal Negative [facility] Comment on above: Performed By: #### U RDS #### [place] [address] [place] Phencyclidine Screen,Urine Negative Normal Negative [facility] Comment on above: Performed By: #### U RDS #### [address] Opiates [Presence] in Urine by Screen methodOrdered By: Jane Waller on 05-20-2024 Opiates Screen Ql (U) Negative Negative [facility] Opiates Screen Ql (U) Opiates [Presence] in Urine by Screen method Negative [facility] Phencyclidine Screen Ql (U)O rdered By: Jane Waller on 05-20-2024 Phencyclidine Ql (U) Negative Negative [facility] Phencyclidine Ql (U) Phencyclidine [Presence] in Urine by Screen method Negative [facility] Laboratory - Chemistry and C hemistry - challengeon 01-09-2024 Bilirubin Ql (U) Negative [facility] Glucose (U) [Mass/Vol] Negative [facility] Ketones Ql (U) Negative [facility] pH (U) 6.0 [pH] [facility] Specific gravity (U) [Rel density] 1.020 [facility] Urobilinogen (U) [Mass/Vol] 0.2 mg/dL [facility] Laboratory - Specimen inform ationon 01-09-2024 Appearance (U) clear [facility] Color (U) yellow [facility] Laboratory - Urinalysison Leukocyte esterase Test strip Ql (U) Negative [facility] Nitrite Ql (U) Negative [facility] Protein Ql (U) Negative [facility] No Panel Informationon 01-08 Urine Occult Blood Negative [facility] Complete Blood Count with Au to Diffon 09-18-2021 Basophils (Bld) [#/Vol] 0.09 10*3/uL Normal 0.00-0.20 [facility] Human Service Worker Comment on above: Performed By: #### C BCAD, CMP, LIPD, FE Prof #### [facility] [address] [place], [place] [id number] Basophils/100 WBC (Bld) 1.2 % Normal [facility] Human Service Worker Comment on above: Performed By: #### C BCAD, CMP, LIPD, FE Prof #### [facility] [address] [place], [place] [id number] Eosinophils (Bld) [#/Vol] 0.18 10*3/uL Normal 0.02-0.50 [facility] Human Service Worker Comment on above: Performed By: #### C BCAD, CMP, LIPD, FE Prof #### [facility] [address] [place], [place] [id number] Eosinophils/100 WBC (Bld) 2.5 % Normal [facility] Human Service Worker Comment on above: Performed By: #### C BCAD, CMP, LIPD, FE Prof #### [facility] [address] [place], [place] [id number] Erythrocyte distribution width (RBC) [Ratio] 12.4 % Normal 11.0-15.0 [facility] Specialist Comment on above: Performed By: #### C BCAD, CMP, LIPD, FE Prof #### [facility] [address] [place], [place] [id number] Hematocrit (Bld) [Volume fraction] 41.2 % Normal 35.0-47.0 [facility] Human Service Worker Comment on above: Performed By: #### C BCAD, CMP, LIPD, FE Prof #### [facility] [address] [place], [place] [id number] Hemoglobin (Bld) [Mass/Vol] 14.2 g/dL Normal 11.6-15.5 [facility] Human Service Worker Comment on above: Performed By: #### C BCAD, CMP, LIPD, FE Prof #### [facility] [address] [place], [place] [id number] Lymphocytes (Bld) [#/Vol] 2.3 10*3/uL Normal 0.9-3.9 [facility] Human Service Worker Comment on above: Performed By: #### C BCAD, CMP, LIPD, FE Prof #### [facility] [address] [place], [place] [id number] Lymphocytes/100 WBC (Bld) 31.5 % Normal [facility] Human Service Worker Comment on above: Performed By: #### C BCAD, CMP, LIPD, FE Prof #### [facility] [address] [place], [place] [id number] MCH (RBC) [Entitic mass] 33.4 pg High 27.0-33.0 [facility] Specialist Comment on above: Performed By: #### C BCAD, CMP, LIPD, FE Prof #### [facility] [address] [place], [place] [id number] MCHC (RBC) [Mass/Vol] 34.5 g/dL Normal 32.0-36.0 [facility] Human Service Worker Comment on above: Performed By: #### C BCAD, CMP, LIPD, FE Prof #### [facility] [address] [place], [place] [id number] MCV (RBC) [Entitic vol] 97 fL Normal 80-100 [facility] Specialist Comment on above: Performed By: #### C BCAD, CMP, LIPD, FE Prof #### [facility] [address] [place], [place] [id number] Monocytes (Bld) [#/Vol] 0.5 10*3/uL Normal 0.2-0.9 [facility] Specialist Comment on above: Performed By: #### C BCAD, CMP, LIPD, FE Prof #### [facility] [address] [place], [place] [id number] Monocytes/100 WBC (Bld) 6.2 % Normal [facility] Specialist Comment on above: Performed By: #### C BCAD, CMP, LIPD, FE Prof #### [facility] [address] [place], [place] [id number] Neutrophils (Bld) [#/Vol] 4.2 10*3/uL Normal 1.5-7.8 [facility] Specialist Comment on above: Performed By: #### C BCAD, CMP, LIPD, FE Prof #### [facility] [address], [place] [id number] Neutrophils/100 WBC (Bld) 58.5 % Normal [facility] Specialist Comment on above: Performed By: #### C BCAD, CMP, LIPD, FE Prof #### [facility] [address], [place] [id number] Platelet mean volume (Bld) [Entitic vol] 8.10 fL Normal 7.50-12.50 [facility] Comment on above: Performed By: #### C BCAD, CMP, LIPD, FE Prof #### [facility] [address], [place] [id number] Platelets (Bld) [#/Vol] 389 10*3/uL Normal 140-400 [facility] Specialist Comment on above: Performed By: #### C BCAD, CMP, LIPD, FE Prof #### [facility] [address], [place] [id number] RBC (Bld) [#/Vol] 4.25 10*6/uL Normal 3.90-5.20 [facility] Human Service Worker Comment on above: Performed By: #### C BCAD, CMP, LIPD, FE Prof #### [facility] [address], [place] [id number] RDW-SD 44.2 fL Normal 37.0-50.0 [facility] Specialist Comment on above: Performed By: #### C BCAD, CMP, LIPD, FE Prof #### [facility] [address], [place] [id number] WBC (Bld) [#/Vol] 7.2 10*3/uL Normal 3.8-11.0 [facility] Human Service Worker Comment on above: Performed By: #### C BCAD, CMP, LIPD, FE Prof #### [facility] [address], [place] [id number] Comprehensive Metabolic Pane nichole 09-18-2021 Albumin [Mass/Vol] 4.5 g/dL Normal 3.6-5.1 [facility] Human Service Worker Comment on above: Performed By: #### C BCAD, CMP, LIPD, FE Prof #### [facility] [address], [place] [id number] Albumin/Globulin [Mass ratio] 2.1 {ratio} Normal 1.0-2.5 [facility] Specialist Comment on above: Performed By: #### C BCAD, CMP, LIPD, FE Prof #### [facility] [address], [place] [id number] ALP [Catalytic activity/Vol] 64 U/L Normal 35-119 [facility] Human Service Worker Comment on above: Performed By: #### C BCAD, CMP, LIPD, FE Prof #### [facility] [address], [place] [id number] ALT [Catalytic activity/Vol] 52 U/L High 6-33 [facility] Specialist Comment on above: Result Comment: 08/02 Female reference range changed. Performed By: #### C BCAD, CMP, LIPD, FE Prof #### [facility] [address], [place] [id number] Anion gap [Moles/Vol] 15 mmol/L Normal 12-20 [place] Human Service Worker Comment on above: Result Comment: Effcecy ctive 09/07/2019 reference range changed. Performed By: #### C BCAD, CMP, LIPD, FE Prof #### [facility] [address], [place] [id number] AST [Catalytic activity/Vol] 29 U/L Normal 9-34 [facility] Comment on above: Performed By: #### C BCAD, CMP, LIPD, FE Prof #### [facility] [address], [place] [id number] Bilirubin [Mass/Vol] 0.57 mg/dL Normal 0.30-1.20 [facility] Comment on above: Performed By: #### C BCAD, CMP, LIPD, FE Prof #### [facility] [address], [place] [id number] BUN/CREA 18 Ratio Normal 6-22 [facility] Comment on above: Performed By: #### C BCAD, CMP, LIPD, FE Prof #### [facility] [address], [place] [id number] Calcium [Mass/Vol] 9.5 mg/dL Normal 8.6-10.2 [facility] Comment on above: Performed By: #### C BCAD, CMP, LIPD, FE Prof #### [facility] [address], [place] [id number] Chloride [Moles/Vol] 103 mmol/L Normal 98-107 [facility] Comment on above: Performed By: #### C BCAD, CMP, LIPD, FE Prof #### [facility] [address], [place] [id number] CO2 [Moles/Vol] 27 mmol/L Normal 20-31 [facility] Comment on above: Performed By: #### C BCAD, CMP, LIPD, FE Prof #### [facility] [address], [place] [id number] Creatinine [Mass/Vol] 0.7 mg/dL Normal 0.6-1.4 [facility] Comment on above: Performed By: #### C BCAD, CMP, LIPD, FE Prof #### [facility] [address], [place] [id number] eGFRAA 112 mL/min/1.73m2 Normal >60 [place] Human Service Worker Comment on above: Performed By: #### C BCAD, CMP, LIPD, FE Prof #### [facility] [address], [place] [id number] eGFRNAA 92 mL/min/1.73m2 Normal >60 [facility] Human Service Worker Comment on above: Performed By: #### C BCAD, CMP, LIPD, FE Prof #### [facility] [address], [place] [id number] Globulin (S) [Mass/Vol] 2.1 g/dL Normal 1.9-3.7 [facility] Human Service Worker Comment on above: Performed By: #### C BCAD, CMP, LIPD, FE Prof #### [facility] [address], [place] [id number] Glucose [Mass/Vol] 123 mg/dL High 65-99 [facility] Human Service Worker Comment on above: Result Comment: For FASTING Glucose --- ADA reference ranges: Normal 65-99 mg/dl Prediabetes 100-125 Diabetes >/= 126 Performed By: #### C BCAD, CMP, LIPD, FE Prof #### [facility] [address], [place] [id number] Potassium [Moles/Vol] 3.7 mmol/L Normal 3.5-5.5 [facility] Human Service Worker Comment on above: Performed By: #### C BCAD, CMP, LIPD, FE Prof #### [facility] [address], [place] [id number] Protein [Mass/Vol] 6.6 g/dL Normal 6.1-8.1 [facility] Human Service Worker Comment on above: Performed By: #### C BCAD, CMP, LIPD, FE Prof #### [facility] [address], [place] [id number] Sodium [Moles/Vol] 141 mmol/L Normal 135-146 [place] Human Service Worker Comment on above: Performed By: #### C BCAD, CMP, LIPD, FE Prof #### [facility] [address], [place] [id number] Urea nitrogen [Mass/Vol] 12 mg/dL Normal 7-25 [facility] Human Service Worker Comment on above: Performed By: #### C BCAD, CMP, LIPD, FE Prof #### [facility] [address], [place] [id number] Iron Profileon 09-18-2021 %FESAT 38 % Normal 11-50 [facility] Specialist Comment on above: Performed By: #### C BCAD, CMP, LIPD, FE Prof #### [facility] [address], [place] [id number] FE 113 ug/dL Normal 40-190 [facility] Human Service Worker Comment on above: Result Comment: Refe rence range change 07/19/2017. Prior reference range F 37-145 ug/dL, M 59-158 ug/dL. Performed By: #### C BCAD, CMP, LIPD, FE Prof #### [facility] [address] [place], [place] [id number] TIBC 297 ug/dL Normal 250-450 [facility] Human Service Worker Comment on above: Performed By: #### C BCAD, CMP, LIPD, FE Prof #### [facility] [address], [place] [id number] UIBC 184 ug/dL Normal 112-347 [facility] Human Service Worker Comment on above: Performed By: #### C BCAD, CMP, LIPD, FE Prof #### [facility] [address], [place] [id number] Lipid Panelon 09-18-2021 Cholesterol [Mass/Vol] 238 mg/dL High 125-200 [facility] Human Service Worker Comment on above: Result Comment: Low risk < 200mg/dL Borderline risk 201-239 mg/dl High risk > or equal to 240 Performed By: #### C BCAD, CMP, LIPD, FE Prof #### [facility] [address], [place] [id number] Cholesterol in HDL [Mass/Vol] 42 mg/dL Normal >40 [facility] Human Service Worker Comment on above: Result Comment: High Cardiovascular Risk HDL <40 mg/dL Low Cardiovascular Risk HDL > or equal to 60 mg/dl Performed By: #### C BCAD, CMP, LIPD, FE Prof #### [facility] [address] [facility] [place] [id number] Cholesterol in LDL [Mass/Vol] 131 mg/dL Normal [facility] Specialist Comment on above: Result Comment: LDL ATP III CLASSIFICATION LDL less than 100 mg/dl Optimal LDL 100-129 mg/dl Near or above optimal LDL 130-159 Borderline high LDL 160-189 High LDL greater than 189 mg/dl Very High Performed By: #### C BCAD, CMP, LIPD, FE Prof #### [facility] [address], [place] [id number] Cholesterol in VLDL [Mass/Vol] 65 mg/dL Normal [facility] Specialist Comment on above: Performed By: #### C BCAD, CMP, LIPD, FE Prof #### [facility] [address], [place] [id number] Cholesterol.total/Ch olesterol in HDL [Mass ratio] 6 {ratio} Normal [facility] Specialist Comment on above: Performed By: #### C BCAD, CMP, LIPD, FE Prof #### [facility] [address] [place], [place] [id number] Triglyceride [Mass/Vol] 326 mg/dL High 30-150 [facility] Human Service Worker Comment on above: Result Comment: TRIG ATPIII CLASSIFICATIONS TRIG less than 150 mg/dl Normal TRIG 150-199 mg/dl Borderline High TRIG 200-500 mg/dl High TRIG greather than 500 mg/dl Very High Performed By: #### C BCAD, CMP, LIPD, FE Prof #### [facility] [address] [place], [place] [id number] KNEE RIGHT 3 [facility] 0 KNEE RIGHT 3 [facility] Department of Radiology [address] [place] [phone] Patient Name: LINDA ALVARADO : 1975 Sex: F Age: Race: White Pt. Location: 84 Patient Status: O Ordered Date: 03/31/2020 1:55:00 PM Completed Date: 03/31/2020 01:59 PM Requesting Provider: JONAS BISHOP Attending Provider: JONAS BISHOP Report Copy To: Signs & Symptoms: S82.101D Unsp fx upper end of r tibia, subs for clos fx w routn heal I10 History: Denise Comments: Weight Bearing?: Y Exam: KNEE RIGHT 3 [facility] KNEE RIGHT 3 [facility] 03/31/2020 1:59 PM CLINICAL INDICATIONS: S82.101D [...] fracture Electronically signed: Jonas Robbins. Transcribed by: [email or web address], User Resident: Electronically Signed by: JONAS ROBBINS @ 03/31/2020 02:03 PM Normal [facility] Comment on above: Order Comment: Weigh t Bearing?: Y KNEE RIGHT 3 [facility] 0 KNEE RIGHT 3 [facility] Department of Radiology [address] [place] [phone] Patient Name: LINDA ALVARADO : 1975 Sex: F Age: Race: White Pt. Location: 84 Patient Status: O Ordered Date: 10/12/2019 11:20:00 AM Completed Date: 10/12/2019 11:29 AM Requesting Provider: JONAS BISHOP Attending Provider: JONAS BISHOP Report Copy To: ELVER MENDENHALL Signs & Symptoms: S82.101D Unsp fx upper end of r tibia, subs for clos fx w routn heal I10 History: Mobeetie Comments: , , , Ordering Provider - JONAS BISHOP PA-C , Exam: KNEE RIGHT 3 S KNEE RIGHT 3 S 10/12/2019 11:29 AM [...] alignment Electronically signed: Ying Enriquez. Transcribed by: [email or web address], User Resident: Electronically Signed by: YING ENRIQUEZ @ 10/12/2019 12:10 PM Normal [facility] Comment on above: Order Comment: , , = ========= , Ordering Provider - JONAS BISHOP PA-C , KNEE RIGHT 1 OR 2 [facility]WSon 09-02 KNEE RIGHT 1 OR 2 VWS [facility] Department of Radiology [address] [place] [phone] Patient Name: LINDA ALVARADO : 1975 [...] healing Electronically signed: Stephanie Miller. Transcribed by: [email or web address], User Resident: Electronically Signed by: STEPHANIE MILLER @ 09/14/2019 05:22 PM Normal [facility] Comment on above: Order Comment: , , = ========= , Ordering Provider - JONAS BISHOP PA-C , KNEE RIGHT 1 OR 2 [facility] 08-02 KNEE RIGHT 1 OR 2 [facility] Department of Radiology [address] [place] [phone] Patient Name: LINDA ALVARADO : 1975 [...] effusion Electronically signed by:Stephanie Miller. Transcribed by: [email or web address], User Resident: Electronically Signed by: STEPHANIE MILLER @ 08/17/2019 03:52 PM Normal [facility] Comment on above: Order Comment: , Vie ws (X-RAY, KNEE): AP, Lateral , Views (X- RAY, KNEE): AP, Lateral , , , Ordering Provider - JONAS BISHOP PA-C , VITAMIN D 25-HYDROXYon 08-17 VITAMIN D 25-OH 35.4 ng/mL Normal 30.0-80.0 [facility] Comment on above: Result Comment: >80. 0 Toxicity possible Performed By: #### 5 0851, 46657 #### [address] [place] [address], [facility] KNEE RIGHT 1 OR 2 VWSon 07-03 KNEE RIGHT 1 OR 2 VWS [facility] Department of Radiology [address] [place] [phone] Patient Name: LINDA ALVARADO : 1975 [...] healing Electronically signed by:Stephanie Miller. Transcribed by: [email or web address], User Resident: Electronically Signed by: STEPHANIE MILLER @ 07/20/2019 05:04 PM Normal [facility] Comment on above: Order Comment: , , = ========= , Ordering Provider - SHWETA VIDAL PA-C , BASIC METABOLIC PANELon 11-0 Calcium [Mass/Vol] 8.8 mg/dL Normal 8.6-10.3 [facility] Comment on above: Order Comment: No: D o not add to previous draw Performed By: #### 5 536, 88010 #### [facility] [address] [place] [address], [place] Chloride [Moles/Vol] 99 mmol/L Normal 98-107 [facility] Comment on above: Order Comment: No: D o not add to previous draw Performed By: #### 5 344, 34955 #### [facility] [address] [place] [address], [place] CO2 [Moles/Vol] 27 mmol/L Normal 21-31 [facility] Comment on above: Order Comment: No: D o not add to previous draw Performed By: #### 5 610, 69063 #### [facility] [address] [place] [address], [place] Creatinine [Mass/Vol] 0.81 mg/dL Normal 0.60-1.20 [facility] Comment on above: Order Comment: No: D o not add to previous draw Performed By: #### 5 610, 64053 #### [facility] [address] [place] [address], [place] GFR/1.73 sq M predicted among blacks MDRD (S/P/Bld) [Vol rate/Area] mL/min/{1.73_m2} Normal >60 [facility] Comment on above: Order Comment: No: D o not add to previous draw Performed By: #### 5 610, 63201 #### [facility] [address] [place] [address], [place] GFR/1.73 sq M predicted among non-blacks MDRD (S/P/Bld) [Vol rate/Area] mL/min/{1.73_m2} Normal >60 [facility] Comment on above: Order Comment: No: D o not add to previous draw Performed By: #### 5 610, 51889 #### [facility] [address] [place] [address], [place] Glucose [Mass/Vol] 105 mg/dL High 70-100 [facility] Comment on above: Order Comment: No: D o not add to previous draw Performed By: #### 5 610, 42530 #### [facility] [address] [place] [address], [place] Potassium [Moles/Vol] 3.8 mmol/L Normal 3.5-5.1 [facility] Comment on above: Order Comment: No: D o not add to previous draw Performed By: #### 5 610, 14228 #### [facility] [address] [place] [address], [place] Sodium [Moles/Vol] 133 mmol/L Low 136-145 [facility] Comment on above: Order Comment: No: D o not add to previous draw Performed By: #### 5 610, 63111 #### [facility] [address] [place] [address], [place] Urea nitrogen [Mass/Vol] 10 mg/dL Normal 7-25 [facility] Comment on above: Order Comment: No: D o not add to previous draw Performed By: #### 5 610, 93264 #### [facility] [address] [place] [address], [facility] CBC COMPLETE BLOOD COUNTon 09-07-2018 Erythrocyte distribution width (RBC) [Ratio] 13.3 % Normal 11.5-15.0 [facility] Comment on above: Order Comment: No: D o not add to previous draw Performed By: #### 5 6100, 42949 #### [facility] [address] [place] [address], [facility] Hematocrit (Bld) [Volume fraction] 36.1 % Normal 36.0-45.0 [facility] Comment on above: Order Comment: No: D o not add to previous draw Performed By: #### 5 610, 69617 #### [facility] [address] [place] [address], [facility] Hemoglobin (Bld) [Mass/Vol] 11.6 g/dL Low 12.0-15.0 [facility] Comment on above: Order Comment: No: D o not add to previous draw Performed By: #### 5 6100, 88840 #### [facility] [address] [place] [address], [facility] MCH (RBC) [Entitic mass] 31.2 pg Normal 27.0-33.0 [facility] Comment on above: Order Comment: No: D o not add to previous draw Performed By: #### 5 610, 93007 #### [facility] [address] [place] [address], [facility] MCHC (RBC) [Mass/Vol] 32.1 g/dL Normal 32.0-35.0 [facility] Comment on above: Order Comment: No: D o not add to previous draw Performed By: #### 5 610, 12259 #### [facility] [address] [place] [address], [place] MCV (RBC) [Entitic vol] 97.0 fL Normal 82.0-98.0 [facility] Comment on above: Order Comment: No: D o not add to previous draw Performed By: #### 5 610, 15301 #### [facility] [address] [place] [address], [facility] Nucleated RBC/100 WBC (Bld) [Ratio] 0 % Normal 0-0 [facility] Comment on above: Order Comment: No: D o not add to previous draw Performed By: #### 5 610, 97843 #### [facility] [address] [place] [address], [facility] PLAT CNT 447 10*3/uL High 150-400 [facility] Comment on above: Order Comment: No: D o not add to previous draw Performed By: #### 5 610, 84084 #### [facility] [address] [place] [address], [facility] RBC (Bld) [#/Vol] 3.72 10*6/uL Low 3.80-5.00 [facility] Comment on above: Order Comment: No: D o not add to previous draw Performed By: #### 5 6101, 33044 #### [facility] [address] [place] [place] [address], [facility] WBC (Bld) [#/Vol] 16.46 10*3/uL High 4.00-10.60 [facility] Comment on above: Order Comment: No: D o not add to previous draw Performed By: #### 5 6101, 26494 #### [facility] [address] [place] [place] [address], [facility] *MRSA/MSSA DNA NASALon 07-07 *MRSA/MSSA DNA NASAL Clinical Report: (D ) Specimen: NASAL SWAB Collected: 07/07/2019 08:00 Status: Final Last Updated: 07/07/2019 14:28 MSSA DNA (Final) Methicillin Susceptible Staphylococcus aureus DNA Detected MRSA DNA (Final) Negative Normal [facility] Comment on above: Performed By: #### 5 6101, 03631 #### [facility] [address] APTTon 07-07-2019 aPTT Coag (Bld) [Time] 38.8 s High 25.0-35.0 [facility] Comment on above: Result Comment: ALL [...] THIS PURPOSE. Performed By: #### 5 6101, 33643 #### [facility] [address] CBC W/DIFFon 07-07-2019 ABS BASOPHILS 0.1 10*3/uL Normal 0.0-0.2 [facility] Comment on above: Performed By: #### 5 0103 #### [facility] [address] ABS IMM GRANS 0.0 10*3/uL Normal 0.0-0.2 [facility] Comment on above: Performed By: #### 5 0103 #### [facility] [address] ABS NEUTROPHILS 4.9 10*3/uL Normal 1.6-7.6 [facility] Comment on above: Performed By: #### 5 0103 #### [facility] [address] Basophils/100 WBC (Bld) 1.0 % Normal 0.0-1.0 [facility] Comment on above: Performed By: #### 5 0103 #### [facility] [address] [place] [address], [facility] Eosinophils (Bld) [#/Vol] 0.2 10*3/uL Normal 0.0-0.5 [facility] Comment on above: Performed By: #### 5 0103 #### [facility] [address] [place] [place] [address], [facility] Eosinophils/100 WBC (Bld) 3.0 % Normal 0.0-6.0 [facility] Comment on above: Performed By: #### 5 0103 #### [facility] [address] [place] [place] [address], [facility] Erythrocyte distribution width (RBC) [Ratio] 13.3 % Normal 11.5-15.0 [facility] Comment on above: Performed By: #### 5 0103 #### [facility] [address] [place] [address], [facility] Hematocrit (Bld) [Volume fraction] 36.9 % Normal 36.0-45.0 [facility] Comment on above: Performed By: #### 5 0103 #### [facility] [address] [place] [address], [facility] Hemoglobin (Bld) [Mass/Vol] 12.2 g/dL Normal 12.0-15.0 [facility] Comment on above: Performed By: #### 5 0103 #### [facility] [address] [place] [place] [address], [facility] IMMATURE GRANS 0.5 % Normal 0.0-1.0 [facility] Comment on above: Performed By: #### 5 0103 #### [facility] [address] [place] [address], [facility] Lymphocytes (Bld) [#/Vol] 2.0 10*3/uL Normal 1.2-4.0 [facility] Comment on above: Performed By: #### 5 0103 #### [facility] [address] [place] [id number], [facility] Lymphocytes/100 WBC (Bld) 25.3 % Normal 20.0-45.0 [facility] Comment on above: Performed By: #### 5 0103 #### [facility] [address] [place] [place] [address], [facility] MCH (RBC) [Entitic mass] 31.4 pg Normal 27.0-33.0 [facility] Comment on above: Performed By: #### 5 0103 #### [facility] [address] [place] [address], [facility] MCHC (RBC) [Mass/Vol] 33.1 g/dL Normal 32.0-35.0 [facility] Comment on above: Performed By: #### 5 0103 #### [facility] [address] [place] [address], [facility] MCV (RBC) [Entitic vol] 95.1 fL Normal 82.0-98.0 [facility] Comment on above: Performed By: #### 5 0103 #### [facility] [address] [place] [address], [facility] Monocytes (Bld) [#/Vol] 0.6 10*3/uL Normal 0.1-1.0 [facility] Comment on above: Performed By: #### 5 3 #### [facility] [address] [place] [address], [facility] MONOS 7.3 % Normal 5.0-12.0 [facility] Comment on above: Performed By: #### 5 0103 #### [facility] [address] Neutrophils/100 WBC (Bld) 62.9 % Normal 40.0-72.0 [facility] Comment on above: Performed By: #### 5 3 #### [facility] [address] [place] [address], [facility] Nucleated RBC/100 WBC (Bld) [Ratio] 0 % Normal 0-0 [facility] Comment on above: Performed By: #### 5 102 #### [facility] [address] [place] [address], [facility] PLAT CNT 392 10*3/uL Normal 150-400 [facility] Comment on above: Performed By: #### 5 102 #### [facility] [address] [place] [address], [facility] RBC (Bld) [#/Vol] 3.88 10*6/uL Normal 3.80-5.00 [facility] Comment on above: Performed By: #### 102 #### [facility] [address] [place] [address], [facility] WBC (Bld) [#/Vol] 7.72 10*3/uL Normal 4.00-10.60 [facility] Comment on above: Performed By: #### 102 #### [facility] [address] COMP METABOLIC PANELon 07-07 Albumin [Mass/Vol] 3.9 g/dL Normal 3.5-5.7 [facility] Comment on above: Performed By: #### 0 0121 #### [facility] [address] [place] [address], [facility] ALKALINE PHOSPH 58 IU/L Normal 34-104 [facility] Comment on above: Performed By: #### 0 0121 #### [facility] [address] [place] [address], [facility] ALT [Catalytic activity/Vol] 55 U/L High 7-52 [facility] Comment on above: Performed By: #### 0 0121 #### [facility] [address] [place] [address], [facility] AST [Catalytic activity/Vol] 39 U/L Normal 13-39 [facility] Comment on above: Performed By: #### 0 0121 #### [facility] [address] [place] [address], [place] Bilirubin [Mass/Vol] 0.4 mg/dL Normal 0.3-1.0 [facility] Comment on above: Performed By: #### 0 0121 #### [facility] [address] [place] [address], [place] Calcium [Mass/Vol] 9.0 mg/dL Normal 8.6-10.3 [facility] Comment on above: Performed By: #### 0 0121 #### [facility] [address] [place] [address], [place] Chloride [Moles/Vol] 104 mmol/L Normal 98-107 [facility] Comment on above: Performed By: #### 0 0121 #### [facility] [address] [place] [address], [place] CO2 [Moles/Vol] 25 mmol/L Normal 21-31 [facility] Comment on above: Performed By: #### 0 0121 #### [facility] [address] [place] [address], [place] Creatinine [Mass/Vol] 0.81 mg/dL Normal 0.60-1.20 [facility] Comment on above: Performed By: #### 0 0121 #### [facility] [address] [place] [address], [place] GFR/1.73 sq M predicted among blacks MDRD (S/P/Bld) [Vol rate/Area] mL/min/{1.73_m2} Normal >60 [facility] Comment on above: Performed By: #### 0 0121 #### [facility] [address] [place] [address], [place] GFR/1.73 sq M predicted among non-blacks MDRD (S/P/Bld) [Vol rate/Area] mL/min/{1.73_m2} Normal >60 [facility] Comment on above: Performed By: #### 0 0121 #### [facility] [address] [place] [address], [facility] Glucose [Mass/Vol] 112 mg/dL High 70-100 [facility] Comment on above: Performed By: #### 0 0121 #### [facility] [address] [place] [address], [facility] Potassium [Moles/Vol] 3.5 mmol/L Normal 3.5-5.1 [facility] Comment on above: Performed By: #### 0 0121 #### [facility] [address] [place] [address], [facility] Protein [Mass/Vol] 6.9 g/dL Normal 6.0-8.3 [facility] Comment on above: Performed By: #### 0 0121 #### [facility] [address] [place] [address], [facility] Sodium [Moles/Vol] 134 mmol/L Low 136-145 [facility] Comment on above: Performed By: #### 0 0121 #### [facility] [address] [place] [address], [facility] Urea nitrogen [Mass/Vol] 10 mg/dL Normal 7-25 [facility] Comment on above: Performed By: #### 0 0121 #### [facility] [address] [place] [address], [facility] CT 3D LOWER EXTREMITY WO CON TRAST RIGHTon 07-07-2019 CT 3D LOWER EXTREMITY WO CONTRAST RIGHT [facility] Department of Radiology [address] [place] [address] Patient Name: LINDA ALVARADO : 1975 Sex: F Age: Race: White Pt. Location: [facility] Patient Status: I Ordered Date: 07/07/2019 2:05:00 AM Completed Date: 07/07/2019 02:30 AM Requesting Provider: CHARU ADRIAN Attending Provider: DEMARCO WERN Report Copy To: Signs & Symptoms: Fracture [...] findings. Electronically signed by:Ying Enriquez. Transcribed by: [email or web address], User Resident: JANET HARRINGTON Electronically Signed by: YING ENRIQUEZ @ 07/07/2019 07:01 AM I personally read this/these film(s) with this resident Normal [facility] Comment on above: Order Comment: R/O F ractures, right leg from mid femur down to ankle KNEE RIGHT 1 OR 2 VWSon KNEE RIGHT 1 OR 2 VWS [facility] Department of Radiology [address] [place] [id number] Patient Name: LINDA ALVARADO : 1975 Sex: F Age: Race: White Pt. Location: [id number] Patient Status: I Ordered Date: 07/07/2019 7:20:00 AM Completed Date: 07/07/2019 01:35 PM Requesting Provider: IAN KU Attending Provider: IAN KU Report Copy To: Signs & Symptoms: orif tibial plateau right, possible ex-fix History: orif tibial plateau right, possible ex-fix Comments: orif tibial plateau right, possible ex-fix Exam: KNEE RIGHT 1 OR 2 S KNEE RIGHT 1 OR 2 VWS 07/07/2019 [...] Documentation Electronically signed by:Ying Enriquez. Transcribed by: [email or web address], User Resident: Electronically Signed by: YING ENRIQUEZ @ 07/07/2019 01:40 PM Normal [facility] Comment on above: Order Comment: orif tibial plateau right, possible ex-fix Operative Reporton 9 Operative Report MR#: [id number] I [facility] Pt. Name: Linda Alvarado Room #: [id number] Discharge Date: Birthdate: 1975 OPERATIVE REPORT DATE [...] elevated from the tibial shaft with a Becerirl. We extended our deep dissection proximally and [...] Cruz MD Date Trans: 07/07/2019 01:02 P/kelin [id number] cc: Elver Mendenhall M.D. 3 [facility] [address] Leslye Doss M.D. E Timmy Mendoza...do Not Send [address] [facility] [address] Normal [facility] POC GLUCOSE LABon 07-07-2019 Glucose [Mass/Vol] 92 mg/dL Normal 70-100 [facility] Comment on above: Performed By: #### 8 5499 #### [facility] [address] POC URINE PREGNANCYon 2018 Beta HCG ( test) Ql (U) Negative Normal NEGATIVE [facility] Comment on above: Result Comment: Perf ormed in Emergency Department. Performed By: #### 8 4140 #### [facility] [address] [place] [address], [facility] PROTHROMBIN TIMEon 9 INR Coag (PPP) [Relative time] 1.12 {INR} Normal 0.91-1.16 [facility] Comment on above: Result Comment: ACCC [...] CHEST 1995;108:231S-246S. Performed By: #### 5 6101, [id number] #### [facility] [address] [place] [address], [facility] PT Coag (PPP) [Time] 14.5 s Normal 12.3-14.8 [facility] Comment on above: Result Comment: ALL RESULTS MUST BE INTERPRETED WITH RESPECT TO BLOOD DRAWING ARTIFACT OR DILUTION ERROR OF ANTICOAGULANT AT THE TIME OF SAMPLING. Performed By: #### 5 6101, 52882 #### [facility] [address] [place] [address], [facility] RBC'S 2 UNITSon 07-07-2019 CROSSMATCH INTERP 1 COMP Normal The [facility] Comment on above: Performed By: #### 8 6002 #### [facility] [address] [place] [address], [place] CROSSMATCH INTERP 2 COMP Normal [facility] Comment on above: Performed By: #### 8 6002 #### [facility] [address] [place] [address], [facility] PRODUCT CODE 1 E0336 Normal The [facility] Comment on above: Performed By: #### 8 6002 #### [facility] [address] [place] [address], [facility] PRODUCT CODE 2 E0678 Normal [facility] Comment on above: Performed By: #### 8 6002 #### [facility] [address] [place] [address], [facility] PRODUCT STATUS 1 RE Normal [facility] Comment on above: Result Comment: Resu lt changed by IF on 07/11/2019 09:02. The previous value was XM. Performed By: #### 8 6002 #### [facility] [address] [place] [address], [facility] PRODUCT STATUS 2 RE Normal [facility] Comment on above: Result Comment: Resu lt changed by IF on 07/11/2019 09:02. The previous value was XM. Performed By: #### 8 6002 #### [facility] [address] [place] [address], [place] UNIT ABO 1 O Normal [facility] Comment on above: Performed By: #### 8 6002 #### [facility] [address] [place] [address], [place] UNIT ABO 2 O Normal [facility] Comment on above: Performed By: #### 8 6002 #### [facility] [address] [place] [address], [facility] UNIT ID 1 [id number] Normal [facility] Comment on above: Performed By: #### 8 6002 #### [facility] [address] [place] [address], [facility] UNIT ID 2 [id number] Normal [facility] Comment on above: Performed By: #### 8 6002 #### [facility] [address] [place] [address], [facility] UNIT RH 1 Negative Normal [facility] Comment on above: Performed By: #### 8 6002 #### [facility] [address] [place] [address], [facility] UNIT RH 2 Negative Normal [facility] Comment on above: Performed By: #### 8 6002 #### [facility] [address] [place] [address], [facility] TYPE AND SCREENon 07-07-2019 ABO INTERPRETATION O Normal [facility] Comment on above: Performed By: #### 6 2586 #### [facility] [address] [place] [address], [place] RH INTERPRETATION Negative Normal The [facility] Comment on above: Performed By: #### 6 2586 #### [facility] [address] [place] [address], [facility] XR KNEE RT 4V OR >on 019 XR KNEE RT 4V OR > Patient: LINDA ALVARADO VivianaMaxime Exam Date: 07/06/2019 : 1975 Gender:F Ordering : LISHA HUSAIN Admission #: [id number] Family : Order #: [id number] CLICK HERE TO VIEW EXAM RADIOLOGY REPORT [...] Proctor M.D. on 07/07/2019 at 07:26 Normal [facility] ECHOCARDIO M/2D COMPLETEon 1 ECHOCARDIO M/2D COMPLETE Patient: LINDA ALVARADO Exam Date: 06/08/2019 : 1975 Gender:F Ordering : DR GITA HUSAIN Admission #: [id number] Family : Order #: [id number] CLICK HERE TO VIEW EXAM ECHOCARDIOGRAM REPORT [...] Area(A4C): 17.60 cm2 Left Atrium Systolic Volume(A2C): 40100 mm3 Left Atrium Systolic Volume(A4C): 22885 mm3 Mitral Valve MV E to A [...] M.D. on 06/09/2019 at 13:[address] [facility] CBC AUTO DIFFon 05-23-2019 Basophils (Bld) [#/Vol] 0.1 103/ul Normal 0.0-0.[address] [facility] Comment on above: Performed By: #### L IPA CMP #### [facility] [address] [place] [address] Jose Gita Basophils/100 WBC (Bld) 1.4 % Normal 0.2-2.0 [facility] Comment on above: Performed By: #### L IPA CMP #### [facility] [address] [place] [address] Jose Gita Eosinophils (Bld) [#/Vol] 0.3 103/ul Normal 0.0-0.7 [facility] Comment on above: Performed By: #### L IPA CMP #### [facility] [address] [place], [place] [id number] Jose Gita Eosinophils/100 WBC (Bld) 2.9 % Normal 0.9-7.[address] [facility] Comment on above: Performed By: #### L IPA, CMP #### [facility] [address] [place] [address] Jose Gita Erythrocyte distribution width (RBC) [Ratio] 13.5 % Normal 11.0-15.0 [facility] Comment on above: Performed By: #### L IPA, CMP #### [facility] [address] [place], [place] [id number] Jose Gita Hematocrit (Bld) [Volume fraction] 37.3 % Normal 36.0-48.[address] [facility] Comment on above: Performed By: #### L IPA, CMP #### [facility] [address] [place] [address] Jose Gita Hemoglobin (Bld) [Mass/Vol] 12.5 g/dL Normal 12.0-16.[address] [facility] Comment on above: Performed By: #### L IPA, CMP #### [facility] [address] [place] [address] Jose Gita IG # 0.05 10e3/ul Critically high 0.00-0.03 [facility] Comment on above: Performed By: #### L IPA, CMP #### [facility] [address] [place] [address] Jose Gita IG % 0.6 % Critically high 0.0-0.5 [facility] Comment on above: Performed By: #### L IPA, CMP #### [facility] [address] [place], [place] [id number] Jose Gita Lymphocytes (Bld) [#/Vol] 2.4 103/ul Normal 1.2-3.[address] [facility] Comment on above: Performed By: #### L IPA, CMP #### [facility] [address] [place], [place] [id number] Jose Gita Lymphocytes/100 WBC (Bld) 27.2 % Normal 20.5-60.[address] [facility] Comment on above: Performed By: #### L IPA, CMP #### [facility] [address] [place] [address] Jose Gita MANUAL DIFF REQ NO Normal [facility] Comment on above: Performed By: #### L IPA, CMP #### [facility] [address] [place], [place] [address] Jose Gita MCH (RBC) [Entitic mass] 32.1 pg Normal 26.7-34.[address] [facility] Comment on above: Performed By: #### L IPA, CMP #### [facility] [address] [place] [address] Jose Gita MCHC (RBC) [Mass/Vol] 33.5 g/dL Normal 29.9-35.[address] [facility] Comment on above: Performed By: #### L IPA, CMP #### [facility] [address] [place], [place] [id number] Jose Gita MCV (RBC) [Entitic vol] 95.6 fL Normal 81.0-99.0 [facility] Comment on above: Performed By: #### L IPA, CMP #### [facility] [address] [place], [place] [id number] Jose Gita Monocytes (Bld) [#/Vol] 0.8 103/ul Normal 0.3-0.[address] [facility] Comment on above: Performed By: #### L IPA, CMP #### [facility] [address] [place], [place] [id number] Jose Gita Monocytes/100 WBC (Bld) 8.7 % Normal 1.7-12.0 [facility] Comment on above: Performed By: #### L IPA, CMP #### [facility] [address] [place] [address] Jose Gita Neutrophils (Bld) [#/Vol] 5.2 103/ul Normal 1.4-6.[address] [facility] Comment on above: Performed By: #### L IPA, CMP #### [facility] [address] [place], [place] [address] Jose Gita Neutrophils/100 WBC (Bld) 59.2 % Normal 43.0-75.[address] [facility] Comment on above: Performed By: #### L IPA, CMP #### [facility] [address] [place] [phone] Jose Pelayo Platelet mean volume (Bld) [Entitic vol] 8.8 fL Critically low 9.5-13.5 [facility] Comment on above: Performed By: #### L IPA, CMP #### [facility] [address] [place], [place] [id number] Josetripp Pelayo Platelets (Bld) [#/Vol] 401 103/ul Normal 150-450 [facility] Comment on above: Performed By: #### L IPA, CMP #### [facility] [address] [place] [address] Jose Pelayo RBC (Bld) [#/Vol] 3.90 106/ul Critically low 4.20-5.40 [facility] Comment on above: Performed By: #### L IPA, CMP #### [facility] [address] [place], [place] [phone] Jose Pelayo WBC (Bld) [#/Vol] 8.7 103/ul Normal 4.0-11.0 [facility] Comment on above: Performed By: #### L IPA, CMP #### [facility] [address] [place], [place] [id number] Jose Pelayo D-DIMERon 05-23-2019 D-DIMER COMMENTS SEE BELOW Normal [facility] Comment [...] Performed By: #### L IPA, CMP #### [facility] [address] [place], [place] [id number] Josetripp Pelayo Fibrin D-dimer FEU IA (Bld) [Mass/Vol] 0.19 ug/mL Normal 0.19-0.50 [facility] Comment on above: Performed By: #### L IPA, CMP #### [facility] [address] [place], [place] [id number] Jose Gita PREG HCG QUALon 05-23-2019 , QUAL Negative Normal NEGATIVE [facility] Comment on above: Performed By: #### L IPA, CMP #### [facility] [address] [place], [place] [phone] Jose Gita PROF CHEM 8 (BAS METB)on Anion gap [Moles/Vol] 10.9 mmol/L Normal [facility] Comment on above: Performed By: #### L IPA, CMP #### [facility] [address] [place] [address] Jose Gita Calcium [Mass/Vol] 9.3 mg/dL Normal 8.4-10.2 [facility] Comment on above: Performed By: #### L IPA, CMP #### [facility] [address] [place] [address] Jose Gita Chloride [Moles/Vol] 104 mmol/L Normal 98-[address] [facility] Comment on above: Performed By: #### L IPA, CMP #### [facility] [address] [place] [address] Jose Gita CO2 [Moles/Vol] 28.7 mmol/L Normal 22.0-30.0 [facility] Comment on above: Performed By: #### L IPA, CMP #### [facility] [address] [place] [address] Jose Gita Creatinine [Mass/Vol] 0.91 mg/dL Normal 0.52-1.[address] [facility] Comment on above: Performed By: #### L IPA, CMP #### [facility] [address] [place], [place] [id number] Jose Gita EGFR-AF AFGHAN >60 Normal >=60 [facility] Comment on above: Performed By: #### L IPA, CMP #### [facility] [address] [place], [place] [address] Jose Gita EGFR-NON AF AFGHAN >60 Normal >=60 [facility] Comment on above: Performed By: #### L IPA, CMP #### [facility] [address] [id number] Jose Gita Glucose [Mass/Vol] 97 mg/dL Normal 74-106 [facility] Comment on above: Performed By: #### L IPA, CMP #### [facility] [address] [place] [id number] Jose Gita Potassium [Moles/Vol] 3.6 mmol/L Normal 3.4-5.0 [facility] Comment on above: Performed By: #### L IPA, CMP #### [facility] [address] [id number] Jose Gita Sodium [Moles/Vol] 140 mmol/L Normal 137-145 [facility] Comment on above: Performed By: #### L IPA, CMP #### [facility] [address] [place] [id number] Jose Gita Urea nitrogen [Mass/Vol] 10.0 mg/dL Normal 7.0-17.0 [facility] Comment on above: Performed By: #### L IPA, CMP #### [facility] [address] [place] [id number] Jose Gita Urea nitrogen/Creatinine [Mass ratio] 11.0 mg/mg Normal [facility] Comment on above: Performed By: #### L IPA, CMP #### [facility] [address] [place], [place] [address] Jose Gita PROTIMEon 05-23-2019 INR Coag (PPP) [Relative time] 1.03 {INR} Normal [facility] Comment on above: Performed By: #### L IPA, CMP #### [facility] [address] [place] [phone] Jose Gita PT Coag (PPP) [Time] SEE BELOW Normal [facility] Comment on above: Result Comment: SELENE RED INR: 2.0 - 3.0 CONDITIONS NOT LISTED BELOW 2.5 - 3.5 FOR PROSTHETIC HEART VALVE REPLACEMENT 2.5 - 3.5 RECURRENT THROMBOSIS Performed By: #### L IPA, CMP #### [facility] [address] [place], [place] [id number] Jose Gita PT Coag (PPP) [Time] PLEASE NOTE: NORMAL RANGE CHANGE 05-20-2014 DUE TO REAGENT LOT CHANGE Normal [facility] Comment on above: Performed By: #### L IPA, CMP #### [facility] [address] [place] [address] Jose Gita PT Coag (PPP) [Time] 10.7 s Normal 9.0-11.[address] [facility] Comment on above: Performed By: #### L IPA, CMP #### [facility] [address] [place] [address] Jose Gita PTTon 05-23-2019 aPTT Coag (Bld) [Time] 27.8 s Normal 22.3-36.[address] [facility] Comment on above: Performed By: #### L IPA, CMP #### [facility] [address] [place] [address] Jose Gita aPTT Coag (Bld) [Time] PLEASE NOTE: NORMAL RANGE CHANGE 07-27-2015 DUE TO REAGENT LOT CHANGE Normal [facility] Comment on above: Performed By: #### L IPA, CMP #### [facility] [address] [place] [address] Jose Gita CBC AUTO DIFFon 12-28-2018 Basophils (Bld) [#/Vol] 0.1 103/ul Normal 0.0-0.[address] [facility] Comment on above: Performed By: #### C BC #### [facility] [address] [place] [address] Jose Gita Basophils/100 WBC (Bld) 1.2 % Normal 0.2-2.[address] [facility] Comment on above: Performed By: #### C BC #### [facility] [address] [place], [place] [id number] Jose Gita Eosinophils (Bld) [#/Vol] 0.2 103/ul Normal 0.0-0.[address] [facility] Comment on above: Performed By: #### C BC #### [facility] [address] [place] [address] Jose Gita Eosinophils/100 WBC (Bld) 5.9 % Normal 0.9-7.0 [facility] Comment on above: Performed By: #### C BC #### [facility] [address] [place] [address] Jose Gita Erythrocyte distribution width (RBC) [Ratio] 13.7 % Normal 11.0-15.0 [facility] Comment on above: Performed By: #### C BC #### [facility] [address] [place] [address] Jose Gita Hematocrit (Bld) [Volume fraction] 36.3 % Normal 36.0-48.0 [facility] Comment on above: Performed By: #### C BC #### [facility] [address] [place] [address] Jose Gita Hemoglobin (Bld) [Mass/Vol] 12.1 g/dL Normal 12.0-16.0 [facility] Comment on above: Performed By: #### C BC #### [facility] [address] [place] [address] Jose Gita IG # 0.01 10e3/ul Normal 0.00-0.03 [facility] Comment on above: Performed By: #### C BC #### [facility] [address] [place] [address] Jose Gtia IG % 0.2 % Normal 0.0-0.5 [facility] Comment on above: Performed By: #### C BC #### [facility] [address] [place] [address] Jose Gita Lymphocytes (Bld) [#/Vol] 1.2 103/ul Normal 1.2-3.[address] [facility] Comment on above: Performed By: #### C BC #### [facility] [address] [place] [address] Jose Gita Lymphocytes/100 WBC (Bld) 30.3 % Normal 20.5-60.0 [facility] Comment on above: Performed By: #### C BC #### [facility] [address] [place] [address] Jose Gita MANUAL DIFF REQ NO Normal [facility] Comment on above: Performed By: #### C BC #### [facility] [address] [place], [place] [id number] Jose Pelayo MCH (RBC) [Entitic mass] 32.2 pg Normal 26.7-34.0 [facility] Comment on above: Performed By: #### C BC #### [facility] [address] [place], [place] [id number] Jose Pelayo MCHC (RBC) [Mass/Vol] 33.3 g/dL Normal 29.9-35.[address] [facility] Comment on above: Performed By: #### C BC #### [facility] [address] [place] [address] Jose Pelayo MCV (RBC) [Entitic vol] 96.5 fL Normal 81.0-99.[address] [facility] Comment on above: Performed By: #### C BC #### [facility] [address] [place] [address] Jose Gita Monocytes (Bld) [#/Vol] 0.4 103/ul Normal 0.3-0.[address] [facility] Comment on above: Performed By: #### C BC #### [facility] [address] [place], [place] [id number] Jose Pelayo Monocytes/100 WBC (Bld) 9.4 % Normal 1.7-12.0 [facility] Comment on above: Performed By: #### C BC #### [facility] [address] [place], [place] [id number] Jose Gita Neutrophils (Bld) [#/Vol] 2.2 103/ul Normal 1.4-6.[address] [facility] Comment on above: Performed By: #### C BC #### [facility] [address] [place], [place] [id number] Jose Gita Neutrophils/100 WBC (Bld) 53.0 % Normal 43.0-75.[address] [facility] Comment on above: Performed By: #### C BC #### [facility] [address] [place], [place] [id number] Jose Gita Platelet mean volume (Bld) [Entitic vol] 8.6 fL Critically low 9.5-13.5 [facility] Comment on above: Performed By: #### C BC #### [facility] [address] [place], [place] [id number] Josetripp Pelayo Platelets (Bld) [#/Vol] 279 103/ul Normal 150-450 [facility] Comment on above: Performed By: #### C BC #### [facility] [address] [place], [place] [id number] Jose Gita RBC (Bld) [#/Vol] 3.76 106/ul Critically low 4.20-5.40 [facility] Comment on above: Performed By: #### C BC #### [facility] [address] [place], [place] [id number] Josetripp Cabanen WBC (Bld) [#/Vol] 4.1 103/ul Normal 4.0-11.0 [facility] Comment on above: Performed By: #### C BC #### [facility] [address] [place], [place] [id number] Jose Cabanen PROF CHEM 8 (BAS METB)on Anion gap [Moles/Vol] 10.6 mmol/L Normal [facility] Comment on above: Performed By: #### B MP #### [facility] [address] [place], [place] [id number] Jose Gita Calcium [Mass/Vol] 8.1 mg/dL Critically low 8.4-10.2 [facility] Comment on above: Performed By: #### B MP #### [facility] [address] [place], [place] [id number] Jose Gita Chloride [Moles/Vol] 111 mmol/L Critically high 98-107 [facility] Comment on above: Performed By: #### B MP #### [facility] [address] [place], [place] [id number] Jose Gita CO2 [Moles/Vol] 24.7 mmol/L Normal 22.0-30.0 [facility] Comment on above: Performed By: #### B MP #### [facility] [address] [id number] Jose Gita Creatinine [Mass/Vol] 0.80 mg/dL Normal 0.52-1.[address] [facility] Comment on above: Performed By: #### B MP #### [facility] [address] [id number] Jose Gita EGFR-AF AFGHAN >60 Normal >=60 [facility] Comment on above: Performed By: #### B MP #### [facility] [address] [id number] Jose Gita EGFR-NON AF AFGHAN >60 Normal >=[address] [facility] Comment on above: Performed By: #### B MP #### [facility] [address] [place] [address] Jose Gita Glucose [Mass/Vol] 93 mg/dL Normal 74-106 [facility] Comment on above: Performed By: #### B MP #### [facility] [address] [place] [address] Jose Gita Potassium [Moles/Vol] 4.3 mmol/L Normal 3.4-5.[address] [facility] Comment on above: Performed By: #### B MP #### [facility] [address] [place] [address] Jose Gita Sodium [Moles/Vol] 142 mmol/L Normal 137-145 [facility] Comment on above: Performed By: #### B MP #### [facility] [address] [place] [address] Jose Gita Urea nitrogen [Mass/Vol] 6.0 mg/dL Critically low 7.0-17.[address] [facility] Comment on above: Performed By: #### B MP #### [facility] [address] [place], [place] [id number] Jose Gita Urea nitrogen/Creatinine [Mass ratio] 7.5 mg/mg Normal [facility] Comment on above: Performed By: #### B MP #### [facility] [address] [place], [place] [id number] Jose Gita CBC AUTO DIFFon 12-27-2018 Basophils (Bld) [#/Vol] 0.0 103/ul Normal 0.0-0.1 [facility] Comment on above: Performed By: #### C BC #### [facility] [address] [place] [address] Jose Gita Basophils/100 WBC (Bld) 0.4 % Normal 0.2-2.0 [facility] Comment on above: Performed By: #### C BC #### [facility] [address] [place] [address] Jose Gita Eosinophils (Bld) [#/Vol] 0.1 103/ul Normal 0.0-0.7 [facility] Comment on above: Performed By: #### C BC #### [facility] [address] [place] [address] Jose Gita Eosinophils/100 WBC (Bld) 1.3 % Normal 0.9-7.0 [facility] Comment on above: Performed By: #### C BC #### [facility] [address] [place] [address] Jose Pelayo Erythrocyte distribution width (RBC) [Ratio] 13.4 % Normal 11.0-15.0 [facility] Comment on above: Performed By: #### C BC #### [facility] [address] [place] [address] Josetripp Pelayo Hematocrit (Bld) [Volume fraction] 37.0 % Normal 36.0-48.0 [facility] Comment on above: Performed By: #### C BC #### [facility] [address] [place] [address] Jose Gita Hemoglobin (Bld) [Mass/Vol] 12.9 g/dL Normal 12.0-16.[address] [facility] Comment on above: Result Comment: repe ated slide reviewed ts Performed By: #### C BC #### [facility] [address] [place] [address] Josetripp Pelayo IG # 0.02 10e3/ul Normal 0.00-0.03 [facility] Comment on above: Performed By: #### C BC #### [facility] [address] [place] [address] Jose Gita IG % 0.3 % Normal 0.0-0.5 [facility] Comment on above: Performed By: #### C BC #### [facility] [address] [place] [address] Jose Gita Lymphocytes (Bld) [#/Vol] 0.7 103/ul Critically low 1.2-3.[address] [facility] Comment on above: Performed By: #### C BC #### [facility] [address] [place] [address] Jose Gita Lymphocytes/100 WBC (Bld) 9.2 % Critically low 20.5-60.0 [facility] Comment on above: Performed By: #### C BC #### [facility] [address] [place] [address] Jose Pelayo MANUAL DIFF REQ NO Normal [facility] Comment on above: Performed By: #### C BC #### [facility] [address] [place] [address] Jose Gita MCH (RBC) [Entitic mass] 32.4 pg Normal 26.7-34.0 [facility] Comment on above: Performed By: #### C BC #### [facility] [address] [place], [place] [id number] Josetripp Pelayo MCHC (RBC) [Mass/Vol] 34.9 g/dL Normal 29.9-35.[address] [facility] Comment on above: Performed By: #### C BC #### [facility] [address] [place] [address] Jose Gita MCV (RBC) [Entitic vol] 93.0 fL Normal 81.0-99.[address] [facility] Comment on above: Performed By: #### C BC #### [facility] [address] [place] [address] Jose Gita Monocytes (Bld) [#/Vol] 0.3 103/ul Normal 0.3-0.[address] [facility] Comment on above: Performed By: #### C BC #### [facility] [address] [place] [address] Jose Gita Monocytes/100 WBC (Bld) 3.6 % Normal 1.7-12.0 [facility] Comment on above: Performed By: #### C BC #### [facility] [address] [place] [address] Jose Gita Neutrophils (Bld) [#/Vol] 6.4 103/ul Normal 1.4-6.5 [facility] Comment on above: Performed By: #### C BC #### [facility] [address] [place], [place] [id number] Jose Gita Neutrophils/100 WBC (Bld) 85.2 % Critically high 43.0-75.0 [facility] Comment on above: Performed By: #### C BC #### [facility] [address] [place], [place] [id number] Jose Gita Platelet mean volume (Bld) [Entitic vol] 8.7 fL Critically low 9.5-13.5 [facility] Comment on above: Performed By: #### C BC #### [facility] [address] [place], [place] [id number] Jose Gita Platelets (Bld) [#/Vol] 401 103/ul Normal 150-[address] [facility] Comment on above: Performed By: #### C BC #### [facility] [address] [place], [place] [id number] Jose Gita RBC (Bld) [#/Vol] 3.98 106/ul Critically low 4.20-5.40 [facility] Comment on above: Performed By: #### C BC #### [facility] [address] [place], [place] [id number] Jose Gita WBC (Bld) [#/Vol] 7.5 103/ul Normal 4.0-11.0 [facility] Comment on above: Performed By: #### C BC #### [facility] [address] [place], [place] [id number] Josetripp Pelayo POTASSIUMon 12-27-2018 Potassium [Moles/Vol] 3.9 mmol/L Normal 3.4-5.0 [facility] Comment on above: Performed By: #### K #### [facility] [address] [place], [place] [id number] Josetripp Cabanen PROF 14(COMP METB)on 019 Albumin [Mass/Vol] 3.2 g/dL Critically low 3.5-5.0 [facility] Comment on above: Performed By: #### C MP #### [facility] [address] [place], [place] [id number] Jose Gita Albumin/Globulin [Mass ratio] 1.1 {ratio} Normal [facility] Comment on above: Performed By: #### C MP #### [facility] [address] [place] [address] Jose Gita ALP [Catalytic activity/Vol] 50 U/L Normal 38-126 [facility] Comment on above: Performed By: #### C MP #### [facility] [address] [place] [address] Jose Gita ALT [Catalytic activity/Vol] 60 U/L Critically high 9-52 [facility] Comment on above: Performed By: #### C MP #### [facility] [address] [place] [address] Jose Gita Anion gap [Moles/Vol] 8.7 mmol/L Normal [facility] Comment on above: Performed By: #### C MP #### [facility] [address] [place] [address] Jose Gita AST [Catalytic activity/Vol] 41 U/L Critically high 14-36 [facility] Comment on above: Performed By: #### C MP #### [facility] [address] [place], [place] [id number] Jose Gita Bilirubin Ql (U) 0.5 mg/dL Normal 0.2-1.3 [facility] Comment on above: Performed By: #### C MP #### [facility] [address] [place], [place] [id number] Jose Gita Calcium [Mass/Vol] 7.7 mg/dL Critically low 8.4-10.2 [facility] Comment on above: Performed By: #### C MP #### [facility] [address] [place], [place] [id number] Jose Gita Chloride [Moles/Vol] 107 mmol/L Normal 98-[address] [facility] Comment on above: Performed By: #### C MP #### [facility] [address] [id number] Jose Gita CO2 [Moles/Vol] 27.1 mmol/L Normal 22.0-30.0 [facility] Comment on above: Performed By: #### C MP #### [facility] [address] [place] [address] Jose Gita Creatinine [Mass/Vol] 0.93 mg/dL Normal 0.52-1.[address] [facility] Comment on above: Performed By: #### C MP #### [facility] [address] [place] [address] Jose Gita EGFR-AF AFGHAN >60 Normal >=60 [facility] Comment on above: Performed By: #### C MP #### [facility] [address] [place] [address] Jose Gita EGFR-NON AF AFGHAN >60 Normal >=60 [facility] Comment on above: Performed By: #### C MP #### [facility] [address] [place], [place] [id number] Jose Gita Globulin (S) [Mass/Vol] 3.0 g/dL Normal [facility] Comment on above: Performed By: #### C MP #### [facility] [address] [place] [address] Jose Gita Glucose [Mass/Vol] 114 mg/dL Critically high 74-106 [facility] Comment on above: Performed By: #### C MP #### [facility] [address] [place] [address] Jose Gita Potassium [Moles/Vol] 2.8 mmol/L Critically low 3.4-5.0 [facility] Comment on above: Result Comment: test repeated critical value verified Performed By: #### C MP #### [facility] [address] [place] [address] Jose Gita Protein [Mass/Vol] 6.2 g/dL Normal 6.1-8.2 [facility] Comment on above: Performed By: #### C MP #### [facility] [address] [phone] Jose Pelayo Sodium [Moles/Vol] 141 mmol/L Normal 137-145 [facility] Comment on above: Performed By: #### C MP #### [facility] [address] [phone] Jose Gita Urea nitrogen [Mass/Vol] 16.0 mg/dL Normal 7.0-17.0 [facility] Comment on above: Performed By: #### C MP #### [facility] [address] [id number] Josetripp Cabanen Urea nitrogen/Creatinine [Mass ratio] 17.2 mg/mg Normal [facility] Comment on above: Performed By: #### C MP #### [facility] [address] [id number] Jose Gita XR ABD FLAT UP/PA Natalya 12-27 XR ABD FLAT UP/PA [facility] Patient: LINDA ALVARADO Exam Date: 12/26/2018 : 1975 Gender:F Ordering : DR. NICHOLAS BOLTON . Admission #: [id number] Family : Order #: [id number] CLICK HERE TO VIEW EXAM RADIOLOGY REPORT [...] Naqvi M.D. on 12/27/2018 at 07:37 Normal [facility] CBC AUTO DIFFon 12-26-2018 Basophils (Bld) [#/Vol] 0.1 103/ul Normal 0.0-0.1 [facility] Comment on above: Performed By: #### C BC #### [facility] [address] [id number] Jose Gita Basophils/100 WBC (Bld) 0.7 % Normal 0.2-2.0 [facility] Comment on above: Performed By: #### C BC #### [facility] [address] [id number] Jose Gita Eosinophils (Bld) [#/Vol] 0.3 103/ul Normal 0.0-0.7 [facility] Comment on above: Performed By: #### C BC #### [facility] [address] [place], [place] [id number] Jose Gita Eosinophils/100 WBC (Bld) 2.2 % Normal 0.9-7.0 [facility] Comment on above: Performed By: #### C BC #### [facility] [address] [place], [place] [id number] Jose Gita Erythrocyte distribution width (RBC) [Ratio] 13.5 % Normal 11.0-15.0 [facility] Comment on above: Performed By: #### C BC #### [facility] [address] [place], [place] [id number] Jose Gita Hematocrit (Bld) [Volume fraction] 46.0 % Normal 36.0-48.0 [facility] Comment on above: Performed By: #### C BC #### [facility] [address] [place], [place] [id number] Jose Gita Hemoglobin (Bld) [Mass/Vol] 15.7 g/dL Normal 12.0-16.0 [facility] Comment on above: Performed By: #### C BC #### [facility] [address] [place], [place] [address] Jose Gita IG # 0.05 10e3/ul Critically high 0.00-0.03 [facility] Comment on above: Performed By: #### C BC #### [facility] [address] [place], [place] [id number] Jose Gita IG % 0.4 % Normal 0.0-0.[address] [facility] Comment on above: Performed By: #### C BC #### [facility] [address], [place] [address] Jose Gita Lymphocytes (Bld) [#/Vol] 1.0 103/ul Critically low 1.2-3.8 [facility] Comment on above: Performed By: #### C BC #### [facility] [address] [id number] Jose Gita Lymphocytes/100 WBC (Bld) 8.8 % Critically low 20.5-60.0 [facility] Comment on above: Performed By: #### C BC #### [facility] [address] [id number] Jose Gita MANUAL DIFF REQ NO Normal [facility] Comment on above: Performed By: #### C BC #### [facility] [address] [phone] Jose Gita MCH (RBC) [Entitic mass] 31.7 pg Normal 26.7-34.0 [facility] Comment on above: Performed By: #### C BC #### [facility] [address] [place], [place] [id number] Jose Gita MCHC (RBC) [Mass/Vol] 34.1 g/dL Normal 29.9-35.2 [facility] Comment on above: Performed By: #### C BC #### [facility] [address] [phone] Jose Gita MCV (RBC) [Entitic vol] 92.9 fL Normal 81.0-99.0 [facility] Comment on above: Performed By: #### C BC #### [facility] [address], [place] [address] Jose Gita Monocytes (Bld) [#/Vol] 0.3 103/ul Normal 0.3-0.8 [facility] Comment on above: Performed By: #### C BC #### [facility] [address], [place] [address] Jose Gita Monocytes/100 WBC (Bld) 2.8 % Normal 1.7-12.0 [facility] Comment on above: Performed By: #### C BC #### [facility] [address] [place], [place] [id number] Jose Pelayo Neutrophils (Bld) [#/Vol] 9.8 103/ul Critically high 1.4-6.5 [facility] Comment on above: Performed By: #### C BC #### [facility] [address] [place], [place] [address] Jose Pelayo Neutrophils/100 WBC (Bld) 85.1 % Critically high 43.0-75.0 [facility] Comment on above: Performed By: #### C BC #### [facility] [address] [place], [place] [id number] Jose Pelayo Platelet mean volume (Bld) [Entitic vol] 8.6 fL Critically low 9.5-13.5 [facility] Comment on above: Performed By: #### C BC #### [facility] [address] [place], [place] [id number] Jose Pelayo Platelets (Bld) [#/Vol] 543 103/ul Critically high 150-450 [facility] Comment on above: Performed By: #### C BC #### [facility] [address] [place], [place] [address] Jose Pelayo RBC (Bld) [#/Vol] 4.95 106/ul Normal 4.20-5.40 [facility] Comment on above: Performed By: #### C BC #### [facility] [address] [place], [place] [id number] Jose Pelayo WBC (Bld) [#/Vol] 11.5 103/ul Critically high 4.0-11.0 [facility] Comment on above: Performed By: #### C BC #### [facility] [address] [place], [place] [address] Jose Pelayo LIPASEon 12-26-2018 Lipase [Catalytic activity/Vol] 186.0 U/L Normal 23.0-300.0 [facility] Comment on above: Performed By: #### L IPA, CMP #### [facility] [address] [place], [place] [id number] Jose Cabanen PROF 14(COMP METB)on 019 Albumin [Mass/Vol] 4.5 g/dL Normal 3.5-5.0 [facility] Comment on above: Performed By: #### L IPA, CMP #### [facility] [address] [id number] Jose Gita Albumin/Globulin [Mass ratio] 1.2 {ratio} Normal [facility] Comment on above: Performed By: #### L IPA, CMP #### [facility] [address] [address] Jose Gita ALP [Catalytic activity/Vol] 65 U/L Normal 38-[address] [facility] Comment on above: Performed By: #### L IPA, CMP #### [facility] [address] [place] [address] Jose Gita ALT [Catalytic activity/Vol] 75 U/L Critically high 9-52 [facility] Comment on above: Performed By: #### L IPA, CMP #### [facility] [address] [place] [address] Jose Gita Anion gap [Moles/Vol] 10.7 mmol/L Normal [facility] Comment on above: Performed By: #### L IPA, CMP #### [facility] [address] [place] [address] Jose Gita AST [Catalytic activity/Vol] 51 U/L Critically high 14-36 [facility] Comment on above: Performed By: #### L IPA, CMP #### [facility] [address] [address] Jose Gita Bilirubin Ql (U) 0.6 mg/dL Normal 0.2-1.3 [facility] Comment on above: Performed By: #### L IPA, CMP #### [facility] [address] [place], [place] [id number] Jose Gita Calcium [Mass/Vol] 9.3 mg/dL Normal 8.4-10.2 [facility] Comment on above: Performed By: #### L IPA, CMP #### [facility] [address] [place] [address] Jose Gita Chloride [Moles/Vol] 103 mmol/L Normal 98-[address] [facility] Comment on above: Performed By: #### L IPA, CMP #### [facility] [address] [place] [address] Jose Gita CO2 [Moles/Vol] 28.8 mmol/L Normal 22.0-30.0 [facility] Comment on above: Performed By: #### L IPA, CMP #### [facility] [address] [place] [address] Jose Gita Creatinine [Mass/Vol] 1.03 mg/dL Normal 0.52-1.[address] [facility] Comment on above: Performed By: #### L IPA, CMP #### [facility] [address] [place] [address] Jose Gita EGFR-AF AFGHAN >60 Normal >=60 [facility] Comment on above: Performed By: #### L IPA, CMP #### [facility] [address] [place] [address] Jose Gita EGFR-NON AF AFGHAN 59 mL/min/1.73m2 Critically low >=[address] [facility] Comment on above: Performed By: #### L IPA, CMP #### [facility] [address] [place] [address] Jose Gita Globulin (S) [Mass/Vol] 3.7 g/dL Normal [facility] Comment on above: Performed By: #### L IPA, CMP #### [facility] [address] [place] [address] Jose Gita Glucose [Mass/Vol] 114 mg/dL Critically high 74-106 [facility] Comment on above: Performed By: #### L IPA, CMP #### [facility] [address] [place] [address] Jose Gita Potassium [Moles/Vol] 3.5 mmol/L Normal 3.4-5.[address] [facility] Comment on above: Performed By: #### L IPA, CMP #### [facility] [address] [place] [address] Jose Gita Protein [Mass/Vol] 8.2 g/dL Normal 6.1-8.2 [facility] Comment on above: Performed By: #### L IPA, CMP #### [facility] [address], [place] [address] Jose Pelayo Sodium [Moles/Vol] 139 mmol/L Normal 137-145 [facility] Comment on above: Performed By: #### L IPA, CMP #### [facility] [address], [place] [address] Jose Gita Urea nitrogen [Mass/Vol] 15.0 mg/dL Normal 7.0-17.0 [facility] Comment on above: Performed By: #### L IPA, CMP #### [facility] [address], [place] [address] Jose Gita Urea nitrogen/Creatinine [Mass ratio] 14.6 mg/mg Normal [facility] Comment on above: Performed By: #### L IPA, CMP #### [facility] [address], [place] [address] Jose Gita Vital Signs Date Time Vital Sign Value Performing Clinician Facility 10-28-2024 15:50-0500 Body height 151.13 cm [facility] 10-28-2024 15:50-0500 Body mass index (BMI) [Ratio] 38.7 kg/m2 [facility] 10-28-2024 15:50-0500 Body weight 88.45 kg [facility] 10-28-2024 15:50-0500 Diastolic blood pressure 80 mm[Hg] [facility] 10-28-2024 15:50-0500 Heart rate 97 /min [facility] 10-28-2024 15:50-0500 SaO2% (BldA) [Mass fraction] 97 % [facility] 10-28-2024 15:50-0500 Systolic blood pressure 130 mm[Hg] [facility] 08-28-2024 11:19-0500 Body height 152.4 cm Lenny Snow DO Work Phone: [facility] 08-28-2024 11:19-0500 Body mass index (BMI) [Ratio] 36.72 kg/m2 Lenny Snow DO Work Phone: [facility] 08-28-2024 11:19-0500 Body weight 85.28 kg Lenny Snow DO Work Phone: [facility] 08-28-2024 11:19-0500 Diastolic blood pressure 74 mm[Hg] Lenny Snow DO Work Phone: [facility] 08-28-2024 11:19-0500 Systolic blood pressure 132 mm[Hg] Lenny Snow DO Work Phone: [facility] 08-22-2024 11:15-0500 Body height 152.4 cm [facility] 08-22-2024 11:15-0500 Body mass index (BMI) [Ratio] 37.8 kg/m2 [facility] 08-22-2024 11:15-0500 Body temperature 98.6 [degF] [facility] 08-22-2024 11:15-0500 Body weight 87.99 kg [facility] 08-22-2024 11:15-0500 Diastolic blood pressure 82 mm[Hg] [facility] 08-22-2024 11:15-0500 Heart rate 91 /min [facility] 08-22-2024 11:15-0500 Respiratory rate 18 /min [facility] 08-22-2024 11:15-0500 SaO2% (BldA) [Mass fraction] 96 % [facility] 08-22-2024 11:15-0500 Systolic blood pressure 143 mm[Hg] [facility] 08-03-2024 15:47-0500 Body height 152.4 cm [facility] 08-03-2024 15:47-0500 Body mass index (BMI) [Ratio] 37.8 kg/m2 [facility] 08-03-2024 15:47-0500 Body temperature 97.4 [degF] [facility] 08-03-2024 15:47-0500 Body weight 87.99 kg [facility] 08-03-2024 15:47-0500 Diastolic blood pressure 73 mm[Hg] [facility] 08-03-2024 15:47-0500 Heart rate 81 /min [facility] 08-03-2024 15:47-0500 Respiratory rate 20 /min [facility] 08-03-2024 15:47-0500 SaO2% (BldA) [Mass fraction] 98 % [facility] 08-03-2024 15:47-0500 Systolic blood pressure 122 mm[Hg] [facility] 07-16-2024 15:50-0500 Body height 151.77 cm Elver Mendenhall II Work Phone: [facility] 07-16-2024 15:50-0500 Body mass index (BMI) [Ratio] 37.6 kg/m2 Elver Mendenhall II Work Phone: [facility] 07-16-2024 15:50-0500 Body weight 86.63 kg Elver Mendenhall II Work Phone: [facility] 07-16-2024 15:50-0500 Diastolic blood pressure 86 mm[Hg] Elver Mendenhall II Work Phone: [facility] 07-16-2024 15:50-0500 Heart rate 97 /min Elver Mendenhall II Work Phone: [facility] 07-16-2024 15:50-0500 SaO2% (BldA) [Mass fraction] 96 % Elver Mendenhall II Work Phone: [facility] 07-16-2024 15:50-0500 Systolic blood pressure 156 mm[Hg] Elver Mendenhall II Work Phone: [facility] 07-02-2024 15:34-0400 Body height 152.4 cm Trever Barnard DPM Work Phone: [facility] 07-02-2024 15:34-0400 Body mass index (BMI) [Ratio] 38.28 kg/m2 Trever Barnard DPM Work Phone: [facility] 07-02-2024 15:34-0400 Body weight 88.91 kg Trever Barnard DPM Work Phone: [facility] 07-02-2024 15:34-0400 Diastolic blood pressure 77 mm[Hg] Trever Barnard DPM Work Phone: [facility] 07-02-2024 15:34-0400 Heart rate 81 /min Trever Barnard DPM Work Phone: [facility] 07-02-2024 15:34-0400 Systolic blood pressure 124 mm[Hg] Trever Barnard DPM Work Phone: [facility] 06-03-2024 15:39-0400 Body height 152.4 cm Gita Hemmer PA Work Phone: [facility] 06-03-2024 15:39-0400 Body mass index (BMI) [Ratio] 38.28 kg/m2 Gita Hemmer PA Work Phone: [facility] 06-03-2024 15:39-0400 Body weight 88.91 kg Gita Hemmer PA Work Phone: [facility] 06-03-2024 15:39-0400 Diastolic blood pressure 64 mm[Hg] Gita Hemmer PA Work Phone: [facility] 06-03-2024 15:39-0400 Heart rate 85 /min Gita Hemmer PA Work Phone: [facility] 06-03-2024 15:39-0400 Respiratory rate 17 /min Gita Hemmer PA Work Phone: [facility] 06-03-2024 15:39-0400 SaO2% (BldA) [Mass fraction] 98 % Gita Hemmer PA Work Phone: [facility] 06-03-2024 15:39-0400 Systolic blood pressure 128 mm[Hg] Gita Hemmer PA Work Phone: [facility] 05-28-2024 14:33-0400 Body height 152.4 cm Trever Brown DPM Work Phone: [facility] 05-28-2024 14:33-0400 Body mass index (BMI) [Ratio] 38.28 kg/m2 Trever Brown DPM Work Phone: [facility] 05-28-2024 14:33-0400 Body weight 88.91 kg Trever Brown DPM Work Phone: [facility] 05-28-2024 14:33-0400 Diastolic blood pressure 80 mm[Hg] Trever Brown DPM Work Phone: [facility] 05-28-2024 14:33-0400 Heart rate 75 /min Trever Brown DPM Work Phone: [facility] 05-28-2024 14:33-0400 Respiratory rate 18 /min Trever Brown DPM Work Phone: [facility] 05-28-2024 14:33-0400 Systolic blood pressure 124 mm[Hg] Trever Brown DPM Work Phone: [facility] 05-14-2024 14:44-0400 Body height 152.4 cm Trever Brown DPM Work Phone: [facility] 05-14-2024 14:44-0400 Body mass index (BMI) [Ratio] 38.28 kg/m2 Trever Brown DPM Work Phone: [facility] 05-14-2024 14:44-0400 Body weight 88.91 kg Trever Brown DPM Work Phone: [facility] 05-14-2024 14:44-0400 Diastolic blood pressure 80 mm[Hg] Trever Brown DPM Work Phone: [facility] 05-14-2024 14:44-0400 Heart rate 75 /min Trever Brown DPM Work Phone: [facility] 05-14-2024 14:44-0400 Systolic blood pressure 123 mm[Hg] Trever Brown DPM Work Phone: [facility] 05-13-2024 14:59-0400 Body height 152.4 cm Gita Hemmer PA Work Phone: [facility] 05-13-2024 14:59-0400 Body mass index (BMI) [Ratio] 38.2 kg/m2 Gita Hemmer PA Work Phone: [facility] 05-13-2024 14:59-0400 Body weight 88.72 kg Gita Hemmer PA Work Phone: [facility] 05-13-2024 14:59-0400 Diastolic blood pressure 72 mm[Hg] Gita Hemmer PA Work Phone: [facility] 05-13-2024 14:59-0400 Heart rate 91 /min Gita Hemmer PA Work Phone: [facility] 05-13-2024 14:59-0400 Respiratory rate 16 /min Gita Hemmer PA Work Phone: [facility] 05-13-2024 14:59-0400 SaO2% (BldA) [Mass fraction] 97 % Gita Hemmer PA Work Phone: [facility] 05-13-2024 14:59-0400 Systolic blood pressure 138 mm[Hg] Gita Hemmer PA Work Phone: [facility] 01-30-2024 09:26-0400 Body height 152.4 cm [facility] 01-30-2024 09:26-0400 Body mass index (BMI) [Ratio] 38.7 kg/m2 [facility] 01-30-2024 09:26-0400 Body weight 89.81 kg [facility] 01-30-2024 09:26-0400 Diastolic blood pressure 85 mm[Hg] [facility] 01-30-2024 09:26-0400 Heart rate 97 /min [facility] 01-30-2024 09:26-0400 SaO2% (BldA) [Mass fraction] 97 % [facility] 01-30-2024 09:26-0400 Systolic blood pressure 142 mm[Hg] [facility] 01-09-2024 15:16-0400 Body height 152.4 cm [facility] 01-09-2024 15:16-0400 Body mass index (BMI) [Ratio] 37.8 kg/m2 [facility] 01-09-2024 15:16-0400 Body temperature 97.7 [degF] [facility] 01-09-2024 15:16-0400 Body weight 87.99 kg [facility] 01-09-2024 15:16-0400 Diastolic blood pressure 80 mm[Hg] [facility] 01-09-2024 15:16-0400 Heart rate 90 /min [facility] 01-09-2024 15:16-0400 Respiratory rate 18 /min [facility] 01-09-2024 15:16-0400 SaO2% (BldA) [Mass fraction] 99 % [facility] 01-09-2024 15:16-0400 Systolic blood pressure 131 mm[Hg] [facility] 12-25-2023 17:21-0400 Body height 152.4 cm [facility] 12-25-2023 17:21-0400 Body mass index (BMI) [Ratio] 30.2 kg/m2 [facility] 12-25-2023 17:21-0400 Body temperature 98.3 [degF] [facility] 12-25-2023 17:21-0400 Body weight 70.3 kg [facility] 12-25-2023 17:21-0400 Heart rate 96 /min [facility] 12-25-2023 17:21-0400 Respiratory rate 18 /min [facility] 12-25-2023 17:21-0400 SaO2% (BldA) [Mass fraction] 96 % [facility] 10-04-2023 08:09-0500 Body mass index (BMI) [Ratio] 37.07 kg/m2 Gita HUSAIN Work Phone: [facility] 10-04-2023 08:09-0500 Body weight 86.09 kg Gita HUSAIN Work Phone: [facility] 10-04-2023 08:09-0500 Diastolic blood pressure 75 mm[Hg] Gita HUSAIN Work Phone: [facility] [place] 10-04-2023 08:09-0500 Heart rate 94 /min Gita Hemmer PA Work Phone: [facility] [place] 10-04-2023 08:09-0500 Respiratory rate 14 /min Gita Hemmer PA Work Phone: [facility] [place] 10-04-2023 08:09-0500 SaO2% (BldA) [Mass fraction] 95 % Gita Hemmer PA Work Phone: [facility] [place] 10-04-2023 08:09-0500 Systolic blood pressure 140 mm[Hg] Gita Hemmer PA Work Phone: [facility] [place] 08-01-2023 08:30-0500 Body height 152.4 cm Jane Waller Other [facility] Other 04-02-2023 11:15-0400 Body height 152.4 cm Jane Waller Other [facility] Other 04-02-2023 11:15-0400 Body mass index (BMI) [Ratio] 36.71 kg/m2 Jane Waller Other [facility] Other 04-02-2023 11:15-0400 Body weight 85.28 kg Jane Waller Other [facility] Other 04-02-2023 11:15-0400 Diastolic blood pressure 82 mm[Hg] Jane Waller Other [facility] Other 04-02-2023 11:15-0400 SaO2% (BldA) [Mass fraction] 98 % Jane Waller Other [facility] Other 04-02-2023 11:15-0400 Systolic blood pressure 143 mm[Hg] Jane Waller Other [facility] Other 02-06-2023 08:45-0400 Body height 152.4 cm Jane Waller Other [facility] Other 02-06-2023 08:45-0400 Diastolic blood pressure 79 mm[Hg] Jane Waller Other [facility] Other 02-06-2023 08:45-0400 SaO2% (BldA) [Mass fraction] 96 % Jane Waller Other [facility] Other 02-06-2023 08:45-0400 Systolic blood pressure 118 mm[Hg] Jane Waller Other [facility] Other 03-19-2022 10:00-0400 Body height 152.4 cm Ciera Poppy Other [facility] Other 03-19-2022 10:00-0400 Body mass index (BMI) [Ratio] 35.74 kg/m2 Ciera Poppy Other [facility] Other 03-19-2022 10:00-0400 Body temperature 96.8 [degF] Ciera Poppy Other [facility] Other 03-19-2022 10:00-0400 Body weight 83.01 kg Ciera Poppy Other [facility] Other 03-19-2022 10:00-0400 Diastolic blood pressure 89 mm[Hg] Ciera Poppy Other [facility] Other 03-19-2022 10:00-0400 Respiratory rate 20 /min Ciera Poppy Other [facility] Other 03-19-2022 10:00-0400 SaO2% (BldA) [Mass fraction] 98 % Ciera Poppy Other [facility] Other 03-19-2022 10:00-0400 Systolic blood pressure 142 mm[Hg] Ciera Poppy Other [facility] Other 02-22-2022 11:00-0400 Body height 152.4 cm Jane Waller Other [facility] Other 02-22-2022 11:00-0400 Body mass index (BMI) [Ratio] 35.93 kg/m2 Jane Waller Other [facility] Other 02-22-2022 11:00-0400 Body temperature 97.7 [degF] Jane Waller Other [facility] Other 02-22-2022 11:00-0400 Body weight 83.46 kg Jane Waller Other [facility] Other 02-22-2022 11:00-0400 Diastolic blood pressure 82 mm[Hg] Jane Waller Other [facility] Other 02-22-2022 11:00-0400 SaO2% (BldA) [Mass fraction] 98 % Jane Waller Other [facility] Other 02-22-2022 11:00-0400 Systolic blood pressure 122 mm[Hg] Jane Waller Other [facility] Other 08-22-2021 16:30-0500 Body height 152.4 cm Jane Waller Other [facility] Other 08-22-2021 16:30-0500 Body mass index (BMI) [Ratio] 37.2 kg/m2 Jane Waller Other [facility] Other 08-22-2021 16:30-0500 Body temperature 97.5 [degF] Jane Sridhar Other [facility] Other 08-22-2021 16:30-0500 Body weight 86.41 kg Jane Sridhar Other [facility] Other 08-22-2021 16:30-0500 Diastolic blood pressure 83 mm[Hg] Jane Waller Other [facility] Other 08-22-2021 16:30-0500 SaO2% (BldA) [Mass fraction] 97 % Jane Waller Other [facility] Other 08-22-2021 16:30-0500 Systolic blood pressure 141 mm[Hg] Jane Waller Other [facility] Other 08-19-2021 10:20-0500 Body height 152.4 cm Tracy Benito Other [facility] Other 08-19-2021 10:20-0500 Body mass index (BMI) [Ratio] 36.52 kg/m2 Tracy Oliver Other [facility] Other 08-19-2021 10:20-0500 Body temperature 97.9 [degF] Tracy Oliver Other [facility] Other 08-19-2021 10:20-0500 Body weight 84.82 kg Tracy Oliver Other [facility] Other 08-19-2021 10:20-0500 Diastolic blood pressure 80 mm[Hg] Tracy Oliver Other [facility] Other 08-19-2021 10:20-0500 Respiratory rate 18 /min Tracy Oliver Other [facility] Other 08-19-2021 10:20-0500 SaO2% (BldA) [Mass fraction] 100 % Tracy Oliver Other [facility] Other 08-19-2021 10:20-0500 Systolic blood pressure 146 mm[Hg] Tracy Oliver Other [facility] Other 06-01-2021 09:30-0400 Body height 152.4 cm Jane Waller Other [facility] Other Encounters Encounter Date Encounter Type Care Provider Facility Start: 10-28-2024 End: 10-28-2024 ambulatory [facility] Work Phone: Start: 10-28-2024 End: 10-28-2024 Patient encounter procedure [facility] Work Phone: Start: 10-27-2024 End: 10-27-2024 ambulatory GITA GARCIA Not Available Start: 08-28-2024 End: 08-28-2024 Bamboo flowsheet Lenny Snow DO Work Phone: [facility] Start: 08-28-2024 End: 08-28-2024 Bamboo flowsheet Lenny Snow DO Work Phone: [facility] Start: 08-28-2024 End: 08-28-2024 Patient encounter status Lenny Snow DO Work Phone: [facility] Start: 08-28-2024 End: 08-28-2024 Periodic preventive med est patient 40-64yrs Lenny Snow DO Work Phone: [facility] Comment on above: Encounter for gyneco logical examination without abnormal finding (Primary Dx); Screening for malignant neoplasm of cervix; Breast cancer screening by mammogram; Chronic sinusitis, unspecified location; Encounter for gynecological examination (general) (routine) without abnormal findings Start: 08-28-2024 End: 08-28-2024 ambulatory LENNY CANADAER Not Available Start: 08-22-2024 End: 08-22-2024 Patient encounter procedure [facility] [place] Work Phone: Start: 08-03-2024 End: 08-03-2024 Patient encounter procedure [facility] Work Phone: Start: 07-16-2024 End: 07-16-2024 ambulatory Elver Mendenhall II Work Phone: [facility] Work Phone: Start: 07-16-2024 End: 07-16-2024 Patient encounter procedure Elver Mendenhall II Work Phone: [facility] Work Phone: Start: 07-13-2024 [...] Start: 06-13-2024 End: 06-15-2024 Telephone encounter Gita Garcia PA Work Phone: [facility] Start: 06-03-2024 [...] Start: 05-31-2024 End: 05-31-2024 Non-patient / Non-visit [facility] Work Phone: [facility] Work Phone: Start: 05-30-2024 End: 05-31-2024 Telephone encounter Tracy Villareal OLIVING MACHINE OPERATOR Work Phone: [facility] Start: 05-28-2024 Non-patient / Non-visit [facility] Work Phone: [facility] Work Phone: Start: 05-28-2024 End: 05-28-2024 Office outpatient visit 15 minutes Trever Barnard DPM Work Phone: [facility] Comment on above: Peroneal tendinitis, left (Primary Dx); Peroneal tendinitis, right; Venous insufficiency Start: 05-28-2024 End: 05-28-2024 ambulatory TREVER BARNARD Not Available Start: 05-27-2024 End: 05-27-2024 Telephone encounter Tracy Villareal OLIVING MACHINE OPERATOR Work Phone: [facility] Comment on above: OA call ([facility] called with a critical lab. Potassium is 2.6. Call placed to Rem[place] Villareal) Start: 05-20-2024 End: 05-20-2024 ambulatory II Elver Mendenhall Work Phone: [facility] Work Phone: Start: 05-20-2024 End: 05-20-2024 Departed Referred II Elver Mendenhall Work Phone: [facility] [place] Work Phone: Start: 05-19-2024 End: 05-20-2024 Patient encounter procedure II Elver Mendenhall Work Phone: [facility] Work Phone: Start: 05-19-2024 End: 05-20-2024 ambulatory II Elver Mendenhall Work Phone: [facility] Work Phone: Start: 05-14-2024 End: 05-14-2024 [...] [facility] Start: 05-13-2024 End: 05-13-2024 Sridharo anita Garcia PA Work Phone: [facility] Start: 03-04-2024 End: 03-04-2024 ambulatory SEB B APLING Not Available Start: 01-30-2024 End: 01-30-2024 ambulatory [facility] Work Phone: Start: 01-30-2024 End: 01-30-2024 Patient encounter procedure [facility] Work Phone: Start: 01-09-2024 End: 01-09-2024 ambulatory [facility] Work Phone: Start: 01-09-2024 End: 01-09-2024 Patient encounter procedure [facility] [place] Work Phone: Start: 12-25-2023 End: 12-25-2023 ambulatory [facility] Work Phone: Start: 12-25-2023 End: 12-25-2023 Patient encounter procedure [facility] [place] Work Phone: Start: 10-14-2023 End: 10-14-2023 Office outpatient visit 15 minutes Lubna Lawrence TENNIS INSTRUCTOR-ASSOCIATE PROFESSOR OF ENGLISH Work Phone: [facility] Comment on above: Nevus; Perioral dermatitis Start: 10-10-2023 End: 10-10-2023 ambulatory Jane Waller Other [facility] [employer] Other Start: 10-10-2023 Telephone encounter Jane Waller [facility] Start: 10-04-2023 Chart abstracting Gita sinha [...] diabetes; History of tibial fracture; Mixed hyperlipidemia ([facility]/HCC); Obsessive-compulsive disorder, unspecified type ([facility]/HCC); Other allergic rhinitis; Bilateral leg pain; Weight gain Start: 09-05-2023 End: 09-05-2023 ambulatory Jane Waller Other [facility] Other Start: 09-05-2023 Telephone encounter Jane Waller [facility] Start: 08-01-2023 Office outpatient vi sit 25 minutes Jane Waller [facility] Start: 08-01-2023 End: 08-01-2023 Patient encounter procedure II Elver Mendenhall Work Phone: [facility] Work Phone: Start: 08-01-2023 End: 08-01-2023 ambulatory II Elver Mendenhall Work Phone: [facility] Other Start: 07-30-2023 End: 07-30-2023 ambulatory Ciera Poppy Other [facility] Other Start: 07-30-2023 Office outpatient vi sit 25 minutes Ciera Poppy [facility] Start: 07-16-2023 End: 07-16-2023 ambulatory Ciera Poppy Other [facility] Other Start: 07-16-2023 Telephone encounter Ciera Poppy [facility] Start: 06-13-2023 End: 06-13-2023 ambulatory Jane Waller Other [facility] Other Start: 06-13-2023 Telephone encounter Jane Song [facility] [employer] [facility] Start: 06-03-2023 End: 06-03-2023 ambulatory Jane Waller Other [facility] Other Start: 06-03-2023 Telephone encounter Jane Waller [facility] Start: 04-02-2023 Office outpatient vi sit 25 minutes Jane Sridhar [facility] Start: 04-02-2023 End: 04-02-2023 ambulatory II Elver Mendenhall Work Phone: [facility] Other Start: 04-02-2023 End: 04-02-2023 Patient encounter procedure II Elver Mendenhall Work Phone: [facility] Work Phone: Start: 03-11-2023 End: 03-11-2023 ambulatory Efraín Patel Other [facility] Other Start: 03-11-2023 Telephone encounter Efraín Patel [facility] Start: 02-06-2023 Office outpatient vi sit 25 minutes Jane Sridhar [facility] Start: 02-06-2023 End: 02-06-2023 ambulatory II Elver Mendenhall Work Phone: [facility] Other Start: 02-06-2023 End: 02-06-2023 Patient encounter procedure II Elver Mendenhall Work Phone: [facility] Work Phone: Start: 11-22-2022 End: 11-22-2022 ambulatory Jane Waller Other [facility] Other Start: 11-22-2022 Telephone encounter Jane Waller [facility] Start: 08-28-2022 End: 08-28-2022 ambulatory Jane Waller Other [facility] Other Start: 08-28-2022 Telephone encounter Jane Waller [facility] Start: 07-03-2022 End: 07-03-2022 Patient encounter procedure II Elver Mendenhall Work Phone: [facility] Start: 07-03-2022 End: 07-03-2022 ambulatory II Elver Mendenhall Work Phone: [facility] Work Phone: Start: 07-03-2022 Office outpatient vi sit 25 minutes Jane Waller [facility] Start: 05-24-2022 End: 05-24-2022 ambulatory Jane Waller Other [facility] Other Start: 05-24-2022 Telephone encounter Jane Waller [facility] Start: 03-19-2022 End: 03-19-2022 ambulatory Ciera Poppy Other [facility] Other Start: 03-19-2022 Office outpatient vi sit 25 minutes Ciera Poppy [facility] Start: 02-23-2022 End: 02-23-2022 ambulatory Jane Waller Other [facility] Other Start: 02-23-2022 Telephone encounter Jane Song [facility] Start: 02-22-2022 End: 02-22-2022 ambulatory Jane Waller Other [facility] Other Start: 02-22-2022 Office outpatient vi sit 25 minutes Jane Waller [facility] Start: 11-24-2021 End: 11-24-2021 ambulatory Jane Waller Other [facility] Other Start: 11-24-2021 Telephone encounter Jane Waller [facility] Start: 09-08-2021 End: 09-08-2021 ambulatory Jane Waller Other [facility] Other Start: 09-08-2021 Telephone encounter Ciera Poppy [facility] Start: 08-22-2021 End: 08-22-2021 ambulatory Jane Waller Other [facility] Other Start: 08-22-2021 Office outpatient vi sit 25 minutes Jane Waller [facility] Start: 08-19-2021 End: 08-19-2021 ambulatory Tracy Benito Other [facility] Other Start: 08-19-2021 Office outpatient vi sit 15 minutes Tracy Benito [facility] [place] Start: 08-02-2021 End: 08-02-2021 ambulatory Jane Waller Other [facility] Other Start: 08-02-2021 Telephone encounter Jane Waller [facility] Start: 06-30-2021 Telephone encounter Jane Song [facility] Start: 06-01-2021 Office outpatient vi sit 25 minutes Jane Waller [facility] Start: 07-07-2019 End: 07-13-2019 Evaluation and management of inpatient ELVER MENDENHALL Facility:[facility] Start: 07-06-2019 End: 07-07-2019 Patient encounter [...] above: Performed By: #### [id number] #### [facility] [address] [place] [address], [facility] Start: 12-27-2018 End: 12-27-2018 Microscopic examination of blood, culture ELVER MENDENHALL Comment on above: Performed By: #### B [id number] #### [facility] [address] [place], [place] [address] Jose Gita Performed By: #### L IPA, CMP #### [facility] [address] [place], [place] [address] Jose Pelayo Plan of Treatment Date Care Activity Detail Author Start: 03-27-2028 Screening for malign ant neoplasm of cervix [facility] Start: 03-27-2026 Screening for malign ant neoplasm of cervix Pap Smear [facility] Start: 05-13-2025 Screening for malign ant neoplasm of colon Colorectal Cancer Screening [facility] Comment on above: Postponed from 06/07 (Patient Refused) Start: 02-08-2025 End: 02-08-2025 Patient encounter procedure 02/08/2025 8:30 AM EDT Office Visit [facility] [address] [place] [address] Lubna Lawrence APRN-ASSOCIATE PROFESSOR OF ENGLISH [address] [place] [address] [facility] Start: 10-27-2024 End: 10-27-2024 Professional / ancillary services management 10/27/2024 4:00 PM EST Ancillary Procedure [facility] [address] [place] [address] [facility] Start: 08-28-2024 End: 08-28-2024 Patient encounter procedure [facility] Comment on above: Arrived Start: 07-02-2024 End: 07-02-2024 Patient encounter procedure 07/02/2024 4:20 PM EDT Office Visit [facility] [address] [place] [id number] Trever Barnard DPM [address] [address] Peroneal tendinitis, left (Primary Dx); Peroneal tendinitis, right; Venous insufficiency [facility] Comment on above: Peroneal tendinitis, left (Primary Dx); Peroneal tendinitis, right; Venous insufficiency Start: 06-30-2024 End: 06-30-2024 Patient encounter procedure 06/30/2024 9:30 AM EDT Office Visit [facility] [address] [place] [id number] Lenny Snow, DO [address] [place] [address] [facility] Start: 06-25-2024 End: 06-25-2024 Patient encounter procedure 06/25/2024 2:40 PM EDT Office Visit [facility] [address] [place] [id number] Trever Barnard DPM [address] [address] [facility] Start: 06-10-2024 End: 06-03-2025 Basic metabolic 1998 panel - Serum or Plasma Basic metabolic panel Lab Routine Hypokalemia Expected: 06/10/2024 (Approximate), Expires: 06/03/2025 [facility] Work Phone: Comment on above: Expected: 06/10/2024 (Approximate), Expires: 06/03/2025 Start: 06-03-2024 End: 06-03-2024 Patient encounter procedure 06/03/2024 4:00 PM EDT Office Visit [facility] [address] [place] [address] Gita Garcia PA [address] [place] [address] [facility] Start: 06-03-2024 End: 06-03-2026 Heart Transthoracic Transthoracic Echo (TTE) Complete Echocardiography Routine Ankle edema Abnormal electrocardiogram Expected: 06/03/2024 (Approximate), Expires: 06/03/2026 [facility] Comment on above: Expected: 06/03/2024 (Approximate), Expires: 06/03/2026 Start: 05-29-2024 End: 05-27-2025 Potassium [Moles/volume] in Serum or Plasma Potassium Lab Routine Hypokalemia Expected: 05/29/2024, Expires: 05/27/2025 [facility] Work Phone: Comment on above: Expected: 05/29/2024 , Expires: 05/27/2025 Start: 05-28-2024 End: 05-28-2024 Patient encounter procedure 05/28/2024 2:40 PM EDT Office Visit [facility] [address] [place] [address] Trever Barnard, DPM [address] [address] [facility] Start: 05-14-2024 End: 05-14-2024 Patient encounter procedure 05/14/2024 4:20 PM EDT Office Visit [facility] [address] [place] [address] Trever Barnard DPM [address] [facility] [address] [place] [address] [facility] Start: 05-13-2024 End: 05-13-2024 Patient encounter procedure 05/13/2024 3:00 PM EDT Office Visit [facility] [address] [place] [address] Gita Garcia PA [address] [place] [address] Arrived [facility] Comment on above: Arrived Start: 05-13-2024 End: 07-13-2025 DBT Breast - bilateral screening Bilateral screening mammogram with tomosynthesis Imaging Routine Encounter for screening mammogram for malignant neoplasm of breast Expected: 05/13/2024, Expires: 07/13/2025 [facility] Work Phone: Comment on above: Expected: 05/13/2024 , Expires: 07/13/2025 Start: 05-03-2024 Influenza vaccination Influenza Vacc ine (#1) [facility] Start: 04-09-2024 End: 04-09-2024 Patient encounter procedure 04/09/2024 9:35 AM EDT Office Visit [facility] [address] [place] [phone] Lubna Lawrence TENNIS INSTRUCTOR-ASSOCIATE PROFESSOR OF ENGLISH [address] [place], [place] [phone] [facility] Start: 03-31-2024 End: 03-31-2024 Patient encounter procedure 03/31/2024 9:45 AM EDT Office Visit [facility] [address] [place] [phone] Lenny Snow DO [address] [place], [place] [phone] [facility] Start: 11-15-2023 End: 11-15-2023 Patient encounter procedure 11/15/2023 8:30 AM EDT Office Visit [facility] [address] [place] [address] Gita Garcia PA [address] [place] [address] [facility] Start: 10-14-2023 End: 10-14-2023 Patient encounter procedure 10/14/2023 8:30 AM EST Office Visit [facility] [address] [place] [address] Lubna Lawrence, TENNIS INSTRUCTOR-ASSOCIATE PROFESSOR OF ENGLISH [address] [place] [address] [facility] Start: 10-04-2023 End: 10-04-2024 CBC W Auto Differential panel - Blood CBC and differential Lab Routine Wellness examination Iron deficiency Thrombocythemia Anemia, unspecified type Expected: 10/04/2023 (Approximate), Expires: 10/04/2024 [facility] Work Phone: Comment on above: Expected: 10/04/2023 (Approximate), Expires: 10/04/2024 Start: 10-04-2023 End: 10-04-2024 Comprehensive metabolic 2000 panel - Serum or Plasma Comprehensive metabolic panel Lab Routine Wellness examination Ankle edema Elevated ALT measurement Mixed hyperlipidemia (CMS/HCC) Expected: 10/04/2023 (Approximate), Expires: 10/04/2024 [facility] Comment on above: Expected: 10/04/2023 (Approximate), Expires: 10/04/2024 Start: 10-04-2023 End: 10-04-2024 Hemoglobin A1c measurement Hemoglobin A1c Lab Routine Wellness examination Impaired fasting glucose History of gestational diabetes Expected: 10/04/2023 (Approximate), Expires: 10/04/2024 [facility] Comment on above: Expected: 10/04/2023 (Approximate), Expires: 10/04/2024 Start: 10-04-2023 End: 10-04-2024 Iron + transferrin + TIBC Iron + transferrin + TIBC Lab Routine Wellness examination Iron deficiency Anemia, unspecified type Expected: 10/04/2023 (Approximate), Expires: 10/04/2024 [facility] Comment on above: Expected: 10/04/2023 (Approximate), Expires: 10/04/2024 Start: 10-04-2023 End: 10-04-2024 Lipid 1996 panel - Serum or Plasma Lipid panel Lab Routine Wellness examination Elevated ALT measurement Mixed hyperlipidemia (CMS/HCC) Expected: 10/04/2023 (Approximate), Expires: 10/04/2024 [facility] Comment on above: Expected: 10/04/2023 (Approximate), Expires: 10/04/2024 Start: 10-04-2023 End: 10-04-2024 TSH W/REFLEX TO FT4 TSH W/REFLEX TO FT4 Lab Routine Wellness examination Tachycardia Weight gain Expected: 10/04/2023 (Approximate), Expires: 10/04/2024 [facility] Comment on above: Expected: 10/04/2023 (Approximate), Expires: 10/04/2024 Start: 10-04-2023 End: 10-04-2023 Patient encounter procedure 10/04/2023 8:00 AM EST Office Visit [facility] [address] [place] [address] Gita Garcia PA [address] [place] [address] [facility] Start: 05-03-2023 Influenza vaccination Influenza Vacc ine (#1) [facility] Start: 12-09-2021 Screening for malign ant neoplasm of breast Mammogram [facility] Start: 1997 Screening for malign ant neoplasm of cervix Pap Smear [facility] Start: 1976 Screening for malign ant neoplasm of colon [facility] IGP, APT HPV,RFX 16/18,45 IGP, APT HPV,RFX 16/18,45 Lab Routine Screening for malignant neoplasm of cervix Ordered: 08/28/2024 [facility] Work Phone: Comment on above: Ordered: 08/28/2024 Immunizations Immunization Date Immunization Notes Care Provider Aretha wilde 03-10-2016 Rocephin 500 mg Jane Sridhar Other [facility] Other 02-17-2016 tetanus toxoid, reduced diphtheria toxoid, and acellular pertussis vaccine, adsorbed Gita HUSAIN Work Phone: [facility] Work Phone: Payers Date Payer Category Payer Self-pay [id number] 2022 [facility] BCBS [id number] 2022 Unknown BCBS BCBS [id number] 2022-Present [phone] [address] [place] [address] [id number] 2022 Blue [employer] Blue Shield PAK [id number] 1975 Unknown [id number] 2.16.840.1.034659.3.579.2. 593 1976 Unknown [id number] 2.16.840.1.217785.3.579.2. 593 1976 Unknown [id number] 2.16.840.1.329941.3.579.2. 593 1976 Unknown [id number] 2.16.840.1.548980.3.579.2. 593 1976 Unknown [id number] 2.16.840.1.488697.3.579.2. 647 1976 Unknown [id number] 2.16.840.1.258608.3.579.2. 1259 1976 Unknown [id number] 2.16.840.1.606896.3.579.2. 1259 1976 Unknown [id number] 2.16.840.1.680564.3.579.2. 1259 1976 Unknown [id number] 2.16.840.1.328406.3.579.2. 1259 1976 Unknown [id number] 2.16.840.1.971110.3.579.2. 9 1976 Unknown [id number] 2.16.840.1.139376.3.579.2. 9 1976 Unknown [id number] 2.16.840.1.117728.3.579.2. 9 1976 Unknown [id number] 2.16.840.1.216129.3.579.2. 1259 1976 Unknown [id number] 2.16.840.1.619898.3.579.2. 1259 1959 Unknown [id number] Unknown [id number] 2.16.840.1.766596.19 Unknown Copay Assistance Program [id number] Unknown [id number] 2.16.840.1.084758.3.579.2. 531 Unknown [id number] 2.16.840.1.704006.3.579.2. 531 Unknown [id number] 2.16.840.1.731924.3.579.2. 531 Social History Date Type Detail Facility Unknown if ever smoked [facility] Other Start: 07-15-2023 End: 08-28-2024 Sex Assigned At [facility] Start: 03-13-2021 End: 08-22-2024 Tobacco smoking status NHIS Never smoked tobacco (finding) [facility] Start: 1975 Sex Assigned At Female F [facility] Start: 03-27-2023 End: 10-14-2023 Tobacco use and exposure Smokeless tobacco non-user [facility] Start: 07-15-2023 End: 08-28-2024 Alcohol intake Lifetime non-drinker (finding) [facility] Start: 07-15-2023 End: 08-28-2024 History of Social function [facility] Within the last year , have you been afraid of your partner or ex-partner? No [facility] Do you belong to any clubs or organizations such as taoist groups, unions, fraternal or athletic groups, or [...] Not at all [facility] (I/We) worried shon er (my/our) food would run out before (I/we) got money to buy more. Never true [facility] Start: 03-27-2023 Education 18 [facility] Start: 03-27-2023 Alcohol Comment Caffeine intak e: 1-2 cups per day soda [facility] Start: 1975 Sex Assigned At Not on file [facility] Start: 07-16-2024 End: 10-28-2024 Sex Female (finding) [facility] NEGATED: Highlighted rowStart: NINF History of tobacco use Passive smoker [facility] Goals Date Patient Goal Desired Activity /State Personal health goal Clinical Notes 11-18-2020 to 08-28-2024 Leny Sheets MA - 08/28/2024 11:30 AM EST Note Date & Type Note Facility 08-28-2024 History of Presen t illness Narrative Images from the original note were not included. Lenny Snow, DO Obstetrics and Gynecology Linda Alvarado 1975 08/28/24 [id number] Yearly Wellness Exam Chief Complaint Patient presents [...] History: Diagnosis Date Abnormal ECG 12/2018 Asthma ([facility]) Comminuted fracture of shaft of tibia 07/06/2019 RT COVID-19 05/2021 Ectopic 2011 Fracture of tibial plateau GDM (gestational diabetes mellitus) Infertility counseling Miscarriage 2010 OCD (obsessive compulsive disorder) ([facility]) ROBYN (obstructive sleep apnea) Seasonal allergies ROS [...] costovertebral angle tenderness, no obvious scoliosis/kyphosis. 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 documented in this encounter [facility] 08-03-2024 Evaluation note Diagnosis Onset Date Resolution GERD (gastroesophageal reflux disease) acute Yosvany 2nd, 20 24 3:24pm Mild intermittent asthma, uncomplicated acute August 032023 3:24pm Seasonal allergies acute Decemb er 2023 3:24pm Acute sinusitis acute August 22, 2024 10:23am Asthma exacerbation acute Decem esteban 2023 10:23am [facility] Work Phone: 1(740) 146-606011-11-2024 Telephone encounter Note* Telephone Encounter - LISHA Grayson - 07/13/2024 2:42 PM EST Sent [facility] [id number] Miscellaneous Notes* Telephone Encounter - LISHA Grayson - 07/13/2024 2:42 PM EST Sent * Telephone Encounter - Iqra Hutchins MA - 07/13/2024 9:17 AM EST Pt lm on asking if a refill of medrol tomer could be sent in again as her feet are swelling again documented in this [facility] [id number] Telephone encounter Note* Telephone Encounter - Iqra Hutchins MA - 07/13/2024 9:17 AM EST Pt lm on asking if a refill of medrol tomer could be sent in again as her feet are swelling again [facility] [id number] History of Present illness Narrative* Trever Barnard DPM - 07/02/2024 4:20 PM EDT Patient: Linda Alvarado : 1975 PCP: Elver [...] History: Diagnosis Date Abnormal ECG 12/2018 Asthma ([facility]) Comminuted fracture of shaft of tibia 07/06/2019 RT COVID-19 05/2021 Ectopic 2010 Fracture of tibial plateau GDM (gestational diabetes mellitus) Infertility counseling Miscarriage 2010 OCD (obsessive compulsive disorder) ([facility]) ROBYN (obstructive sleep apnea) Seasonal allergies Medications: Current Outpatient Medications: Adderall XR 20 MG 24 hr capsule, 1 (one) time each day at the same time., Disp: , Rfl: Advair Diskus 500-50 MCG/ACT aerosol powder , INHALE 1 PUFF INTO THE LUNGS TWICE A DAY FOR 30 DAYS,Disp: , Rfl: albuterol HFA 90 mcg/act inhaler, [...] , Rfl: cholecalciferol (Vitamin D-3) 50 MCG (1999) capsule, , Disp: , Rfl: citalopram (CeleXA) 40 MG tablet, Take 0.5 tablets (20 mg) by mouth Daily, Disp: 45 tablet, Rfl: 3 dilTIAZem CD (Cardizem CD) 120 MG 24 hr capsule, TAKE 1 CAPSULE (120 MG) BY MOUTH IN THE MORNING, Disp: 100 capsule, Rfl: 3 eletriptan (Relpax) 40 MG tablet, TAKE 1 TABLET BY MOUTH, REPEAT IN 2 HOURS IF HEADACHE RETURNS,*NOMORE THAN 2 DOSES IN 24 HOURS, Disp: 12 tablet, Rfl: 12 fluticasone (Flonase) 50 MCG/ACT nasal spray, SPRAY 1 TO 2 SPRAYS IN EACH NOSTRIL ONCE DAILY, Disp:, Rfl: minocycline 100 MG capsule, Take 1 [...] Master's degree (e.g., MA, MS, Grisel, MEd, SOFT CRAB SHEDDER, LEONEL) Occupational 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 Negative openings in skin. Plusone pitting edema to bilateral ankles VASC: Palpable [...] warranted. Trever Barnard DPM documented in this [facility]10-12-2024 Telephone encounter Note* Telephone Encounter - LISHA Grayson - 06/13/2024 9:33 AM EDT Please let pt know that her recent lab showed her potassium is back in normal range. Continue potassium supplement. [facility] [id number] Miscellaneous Notes* Telephone Encounter - LISHA Grayson - 06/13/2024 9:33 AM EDT Please let pt know that her recent lab showed her potassium is back in normal range. Continue potassium supplement. documented in this [facility]10-02-2024 History of Present illness Narrative* LISHA Grayson - 06/03/2024 4:00 PM EDT Images from the original note were not included. Subjective Patient ID: Linda Alvarado is a 48 y.o. female who presents for a follow up of [facility] on 05/30. She went to [facility] for hypokalemia. Linda is present today for a follow up of [facility] for hypokalemia, she states her legs [...] (120 MG) BY MOUTH IN THE MORNING 100capsule 3 eletriptan (Relpax) 40 MG tablet TAKE 1 TABLET BY MOUTH, REPEAT IN 2 HOURS IF HEADACHE RETURNS,*NO MORE THAN 2 DOSES IN 24 HOURS 12 tablet 12 fluticasone (Flonase) 50 MCG/ACT nasal spray SPRAY 1 TO 2 SPRAYS IN EACH NOSTRIL ONCE DAILY minocycline 100 MG capsule Take 1 capsule, by mouth, bid, 30 days (Patient taking differently: Take1 capsule, by mouth, bid, 30 days PRN) [...] Apply to face BID (Patient taking differently: Applyto face BID PRN) 60 g 1 [DISCONTINUED] hydroCHLOROthiazide (HYDRODiuril) 25 MG tablet Take 1 tablet (25 mg) by mouth in themorning. 100 tablet 3 [DISCONTINUED] methylPREDNISolone (Medrol Dospak) 4 MG tablets Follow schedule on MEDROL PACK package instructions to be used as directed 21 tablet 0 [DISCONTINUED] potassium chloride CR (KLOR-CON) 10 MEQ ER tablet Take 1 tablet (10 mEq) by mouth inthe morning and 1 tablet (10 mEq) before [...] Will recheck potassium in 1-2 weeks. Contact officewith any concerns. Peroneal tendinitis of left lower [...] the patient. ER discharge meds were reviewed. Anychanges to plan are noted above. Follow up in about 3 months (around 09/03/2024). documented in this encounterSaint [facility] [id number] Telephone encounter Note* Telephone Encounter - Tracy Villareal NP - 05/31/2024 10:01 AM EDT The pt was contacted today to see how she was feeling. She is inpatient at [facility]. She has been given IV potassium and magnesium. Possible Dc today. [facility] Work Phone: 1(410) 346-727509-29-2024 Miscellaneous Notes* Telephone Encounter - Tracy Villareal NP - 05/31/2024 10:01 AM EDT The pt was contacted today to see how she was feeling. She is inpatient at [facility]. She has been given IV potassium and magnesium. Possible Dc today. * Telephone Encounter - Myron Johnson - 05/30/2024 7:59 PM EDT Linda Alvarado 77: : Tracy Villareal. Patient [...] the ER. Patient advised. documented in this encounterSaint John[facility] [id number] Telephone encounter Note* Telephone Encounter - Myron Johnson - 05/30/2024 7:59 PM EDT Linda Alvarado 77: : Tracy Villareal. Patient [...] should go to the ER. Patient advised. [facility] [id number] History of Present illness Narrative* Trever Barnard, DPM - 05/28/2024 2:40 PM EDT Patient: Linda Viviana Alvarado : 1975 PCP: Elver Mendenhall MD SUBJECTIVE This is a 48 y.o. female that presents today for a follow up of bilateral peroneal tendinitis as taking a Medrol pack and rates pain up to a 3 /10 at times. She states she has tried anti-inflammatories with some improvement and pain with 1st steps during the day and with prolonged standing. Patientis approved for orthotics with 80 percent coverage Patient states greatly improved since prior visits Pt also has history of venous stasis to b/l lower extremities. Allergies: Allergies Allergen Reactions Clarithromycin GI intolerance Sulfa Antibiotics Unknown Past Medical History: Past Medical History: Diagnosis Date Abnormal ECG 12/2018 Asthma ([facility]) Comminuted fracture of shaft of tibia 07/06/2019 RT COVID-19 05/2021 Ectopic 2010 Fracture of tibial plateau GDM (gestational diabetes mellitus) Infertility counseling Miscarriage 2010 OCD (obsessive compulsive disorder) ([facility]) ROBYN (obstructive sleep apnea) Seasonal allergies Medications: Current Outpatient Medications: Adderall XR 20 MG 24 hr capsule, 1 (one) time each day at the same time., Disp: , Rfl: Advair Diskus 500-50 MCG/ACT aerosol powder , INHALE 1 PUFF INTO THE LUNGS TWICE A DAY FOR 30 DAYS,Disp: , Rfl: albuterol HFA 90 mcg/act inhaler, [...] , Rfl: cholecalciferol (Vitamin D-3) 50 MCG (1999) capsule, , Disp: , Rfl: citalopram (CeleXA) [...] MOUTH, REPEAT IN 2 HOURS IF HEADACHE RETURNS,*NOMORE THAN 2 DOSES IN 24 HOURS, Disp: 12 tablet, Rfl: 12 fluticasone (Flonase) 50 MCG/ACT nasal spray, SPRAY 1 TO 2 SPRAYS IN EACH NOSTRIL ONCE DAILY, Disp:, Rfl: hydroCHLOROthiazide (HYDRODiuril) 25 MG tablet, Take [...] Master's degree (e.g., MA, MS, Grisel, MEd, SOFT CRAB SHEDDER, LEONEL) Occupational 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 Negative openings in skin. Plusone pitting edema to bilateral ankles VASC: Palpable [...] for the devices. The patient is ambulatory maybenefit functionally for this device. It may be used for the following conditions as noted per EMR. Trever Barnard DPM documented in this encounterSaint John[facility] [id number] Telephone encounter Note* Telephone Encounter - Tracy Villareal NP - 05/27/2024 7:42 PM EDT See orders [facility] Work Phone: 1(944) 378-414109-25-2024 Miscellaneous Notes* Telephone Encounter - Tracy Villareal NP - 05/27/2024 7:42 PM EDT See orders documented in this encounterSaint John's [facility] [id number] Telephone encounter Note* Telephone Encounter - Tracy Villareal NP - 05/27/2024 6:09 PM EDT Pt called to inform of a critically low potassium level at 2.6 today. Advised to take 40 meq x 1 now, continue 40 meq bid and Saturday am, repeat k+ level Saturday am. [facility] [id number] Miscellaneous Notes* Telephone Encounter - Tracy Villareal NP - 05/27/2024 6:09 PM EDT Pt called to inform of a critically low potassium level at 2.6 today. Advised to take 40 meq x 1 now, continue 40 meq bid and Saturday am, repeat k+ level Saturday am. documented in this encounterSaint John's [facility] Community [id number] History of Present illness Narrative* Trever Barnard DPM - 05/14/2024 4:20 PM EDT Patient: Linda Alvarado : 1975 PCP: Elver [...] have tried no treatments for the condition. Statesswelling worstens with prolonged standing activities. Allergies: Allergies Allergen Reactions Clarithromycin GI intolerance Sulfa Antibiotics Unknown Past Medical History: Past Medical History: Diagnosis Date Abnormal ECG 12/2018 Asthma (CMS/HCC) Comminuted fracture of shaft of tibia 07/06/2019 RT COVID-19 05/2021 Ectopic 2010 Fracture of tibial plateau GDM (gestational diabetes mellitus) Infertility counseling Miscarriage 2010 OCD (obsessive compulsive disorder) ([facility]) ROBYN (obstructive sleep apnea) Seasonal allergies Medications: Current Outpatient Medications: Adderall XR 20 MG 24 hr capsule, 1 (one) time each day at the same time., Disp: , Rfl: Advair Diskus 500-50 MCG/ACT aerosol powder , INHALE 1 PUFF INTO THE LUNGS TWICE A DAY FOR 30 DAYS,Disp: , Rfl: albuterol HFA 90 mcg/act inhaler, [...] by mouth in the morning and 1 capsule(300 mg) in the evening and 1 capsule [...] MOUTH, REPEAT IN 2 HOURS IF HEADACHE RETURNS,*NOMORE THAN 2 DOSES IN 24 HOURS, Disp: 12 tablet, Rfl: 12 fluticasone (Flonase) 50 MCG/ACT nasal spray, SPRAY 1 TO 2 SPRAYS IN EACH NOSTRIL ONCE DAILY, Disp:, Rfl: hydroCHLOROthiazide (HYDRODiuril) 25 MG tablet, Take [...] Master's degree (e.g., MA, MS, Grisel, MEd, SOFT CRAB SHEDDER, LEONEL) Occupational 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 Negative openings in skin. Plusone pitting edema to bilateral ankles VASC: Palpable [...] edema. Discussed condition in detail. Recommendation for [id number] compression stockings at this time and may consider prescription stockings in the future. Trever Barnard DPM documented in this encounterSaint John's [facility] [id number] History of Present illness Narrative* LISHA Grayson - 05/13/2024 3:00 PM EDT Images from the original note were not [...] ankle compression socks but felt it was makingthe edema go up her leg so stopped wearing them. Also states she does not really have any shoes that fit her, has flat wide feet. States she is seeing a Gizzard Peeler tomorrow, Dr. Trever Barnard. Does not elevate her legs at night. Pt is scheduled for her sleep study on Saturday. Was told to stop the Sunosi and Adderall before the sleep study so has been off of it for 3 weeks. Also told her to go off of the Citalopram, but shetried and it really bothered her. Current Outpatient [...] (120 MG) BY MOUTH IN THE MORNING 100capsule 3 eletriptan (Relpax) 40 MG tablet TAKE [...] mouth, bid, 30 days (Patient taking differently: Take1 capsule, by mouth, bid, 30 days PRN) [...] or fail to improve. documented in this encounterSaint John's [facility] [id number] History of Present illness Narrative* Lubna Lawrence APRN-ASSOCIATE PROFESSOR OF ENGLISH - 10/14/2023 8:30 AM EST Images from the original note were not [...] Next Visit: 1 year documented in this encounterSaint [facility]'s [facility] [id number] Evaluation note* Encounter Date Diagnosis Assessment Notes Treatment Notes Treatment Clinical Notes Oct, ROBYN (obstructive sleep apnea) (ICD-10 - G47.33) [facility] Other 02-02-2024 History of Present illness Narrative* [...] daytime sleepiness The patient is seeing a back office medical assistant for this condition, treatment is deferred to that specialist. Correspondence from that specialist and any available testing were reviewed during today's visit. Obstructive sleep apnea The patient is seeing a back office medical assistant for this condition, treatment is deferred to [...] Female infertility The patient is seeing a back office medical assistant for this condition, treatment is deferred to [...] tibial fracture The patient is seeing a back office medical assistant for this condition, treatment is deferred to [...] 11/15/2023) for Recheck. documented in this encounterSaint John's Aurora Community [id number] Evaluation note* Encounter Date Diagnosis Assessment Notes [...] but has reported symptoms in the past [facility] Other 11-28-2023 Evaluation note* Encounter Date Diagnosis Assessment Notes Treatment Notes Treatment Clinical Notes Jul, Mild intermittent asthma, uncomplicated (ICD-10 - J45.20) [facility] Other 10-12-2023 Evaluation note* Encounter Date Diagnosis Assessment Notes Treatment Notes Treatment Clinical Notes Jun, ROBYN (obstructive sleep apnea) (ICD-10 - G47.33) [facility] Other 10-02-2023 Evaluation note* Encounter Date Diagnosis Assessment Notes Treatment Notes Treatment Clinical Notes Jun, ROBYN (obstructive sleep apnea) (ICD-10 - G47.33) [facility] Other 08-01-2023 Evaluation note* Encounter Date Diagnosis [...] is present Apr, Cataplexy (ICD-10 - G47.411) [facility] Other 07-10-2023 Evaluation note* Encounter Date Diagnosis Assessment Notes Treatment Notes Treatment Clinical Notes Mar, Mild intermittent asthma, uncomplicated (ICD-10 - J45.20) [facility] Other 2023 Evaluation note* Encounter Date Diagnosis [...] night before attempted MSLT. Her persistent elevated Richmond sleepiness score, at 17, continues to show [...] have not gotten the PSG MSLT documentation [facility] Other 03-23-2023 Evaluation note* Encounter Date Diagnosis Assessment Notes Treatment Notes Treatment Clinical Notes Oct, ROBYN (obstructive sleep apnea) (ICD-10 - G47.33) [facility] Other 12-27-2022 Evaluation note* Encounter Date Diagnosis Assessment Notes Treatment Notes Treatment Clinical Notes Aug, ROBYN (obstructive sleep apnea) (ICD-10 - G47.33) [facility] Other 11-01-2022 Evaluation note* Encounter Date Diagnosis [...] sleepiness does suggest the diagnosis of narcolepsy [facility] Other 09-22-2022 Evaluation note* Encounter Date Diagnosis Assessment Notes Treatment Notes Treatment Clinical Notes May, ROBYN (obstructive sleep apnea) (ICD-10 - G47.33) [facility] Other 07-18-2022 Evaluation note* Encounter Date Diagnosis Assessment Notes Treatment Notes Treatment Clinical Notes Mar, Mild intermittent asthma, uncomplicated (ICD-10 - J45.20) Take Breo 1 inhalation daily if you run out of Advair. [facility] Other 06-24-2022 Evaluation note* Encounter Date Diagnosis Assessment Notes Treatment Notes Treatment Clinical Notes Jan, ROBYN (obstructive sleep apnea) (ICD-10 - G47.33) [facility] Other 06-23-2022 Evaluation note* Encounter Date Diagnosis [...] multiple sleep latency test is likely indicated [facility] Other 03-25-2022 Evaluation note* Encounter Date Diagnosis Assessment Notes Treatment Notes Treatment Clinical Notes Oct, Narcolepsy and cataplexy (ICD-10 - G47.411) [facility] Other 01-07-2022 Evaluation note* Encounter Date Diagnosis Assessment Notes Treatment Notes Treatment Clinical Notes Sep, Mild intermittent asthma, uncomplicated (ICD-10 - J45.20) [facility] Other 01-07-2022 Evaluation note* Encounter Date Diagnosis Assessment Notes Treatment Notes Treatment Clinical Notes Sep, Narcolepsy and cataplexy (ICD-10 - G47.411) [facility] Other 12-21-2021 Evaluation note* Encounter Date Diagnosis [...] have significant positive effects on sleep apnea [facility] Other 12-18-2021 Evaluation note* Encounter Date Diagnosis Assessment Notes Treatment Notes Treatment Clinical Notes Aug, Cellulitis of right lower extremity (ICD-10 - L03.115) Use medications as directed. Cover area as instructed. May use gently cleanser to area between daily application as instructed.. Follow up with primary care provider if no improvement of symptoms or if symptoms worsen. [facility] Other 12-01-2021 Evaluation note* Encounter Date Diagnosis Assessment Notes Treatment Notes Treatment Clinical Notes Aug, Narcolepsy and cataplexy (ICD-10 - G47.411) [facility] Other 10-29-2021 Evaluation note* Encounter Date Diagnosis Assessment Notes Treatment Notes Treatment Clinical Notes Jun, Narcolepsy and cataplexy (ICD-10 - G47.411) [facility] Other 09-30-2021 Evaluation note* Encounter Date Diagnosis [...] PAP for ROBYN and med for narcolepsy [facility] Other 07-12-2021 Progress note Author John Cowan [facility] March 13, 2021 9:57am Note Date/Time March 13, 2021 9:43 am [facility] at [address] [address] Hem/Onc Follow Up Note - OP Signed Patient: Linda Alvarado MR#: [id number] : 1975 Acct:[id number] Age/Sex: 45 / F Type: REG RCR Copies to: MD Gita Navarrete II, PA-C~ Subjective Date/Time of Service: Date of Service: 03/13/2021 Time of Service: 09:37 Chief Complaint: Patient is here for a 4 month follow up for thrombocytosis withlabs 03/08/2021 for review. No concerns are voiced at this time. HPI: 45-year-old female primary patient of Gita Garcia nurse practitioner in [facility]. She is referred for mild thrombocytosis, then [...] lymphoma in her 40s. at 61 of [place]. She had 6 first trimester miscarriages, one [...] infections or delayed wound healing.] [facility] - Medical History Medical History: Medical History [...] (Last Reviewed 11/18/20 @ 14:31 by Tawana Sofia) Grandparent Hypertension Brain cancer Lung cancer Grandparent [...] % (Auto) 67.8, Lymph % (Auto) 21.7, Union % (Auto) 6.5, Eos % (Auto) 2.9, Baso % (Auto) 1.1, Neut # (Auto) 5.7, Lymph # (Auto) 1.8, Union # (Auto) 0.5, Eos # (Auto) 0.2, [...] for coordination of care (as documented) and [id number]-[id number] counseling of patient and/or family. Dictated By: John Cowan MD DD/ 0937 Signed By: <Electronically signed by John Cowan MD> 03/13/[address] [facility] Work Phone: 1(624) 323-516103-19-2021 Progress note Author Cheng Almaguer [facility] November 18, 2020 5:11pm Note Date/Time November 18, 2020 2:4 6pm [facility] at [place] [id number] Hem/Onc Follow Up Note - OP Signed with Addenda Patient: Linda Alvarado MR#: [id number] : 1975 Acct:[id number] Age/Sex: 45 / F Type: REG RCR [...] patient of Gita Garcia nurse practitioner in [facility]. She is referred for thrombocytosis. Past medical [...] lymphoma in her 40s. at 61 of [place]. She had 6 first trimester miscarriages, one [...] she has never had mammogram. [facility] - Medical History Medical History: Medical History [...] for coordination of care (as documented) and [id number]-jp-[id number] counseling of patient and/or family. Attestation Statement - Physician Attestation cbc, cmp, ferritin, iron, iron sat. Jak2. she will call to discsuss results. f/u with me 1 year. Dictated By: Cheng Almaguer II, DO DD/ 1445 Signed By: <Electronically signed by Cheng Almaguer II, DO> 11/18/[address] [facility] Work Phone: [phone]) 557-467303-19-2021 Progress note Author Cheng Almaguer [facility] November 18, 2020 5:10pm Note Date/Time November 18, 2020 5:1 0pm [facility] at [place] [id number] Hem/Onc Follow Up Note - OP Signed Patient: Linda Alvarado MR#: [id number] : 1975 Acct:[id number] Age/Sex: 45 / F Type: REG RCR Copies to: MD Gita Navarrete II, PA-C~ Subjective Date/Time of Service: Date of Service: 11/18/2020 Time of Service: 17:09 Chief Complaint: Patient is here today for a referral from LISHA Dhaliwal for elevated platelets HPI: 45-year-old female primary patient of Gita Garcia nurse practitioner in [facility]. She is referred for thrombocytosis. Past medical [...] lymphoma in her 40s. at 61 of [place]. She had 6 first trimester miscarriages, one [...] she has never had mammogram. [facility] - Medical History Medical History: Medical History (Last Reviewed 11/18/20 @ 14:31 by Tawana Black) Abnormal ECG Asthma Displaced comminuted fracture of shaft of right tibia Ectopic Gestational diabetes mellitus High risk due to assisted reproductive technology Infertility Miscarriage x2 Missed OCD (obsessive compulsive disorder) ORBYN (obstructive sleep apnea) Seasonal allergies - Surgical [...] % (Auto) 70.1, Lymph % (Auto) 22.2, Union % (Auto) 4.9, Eos % (Auto) 2.0, Baso % (Auto) 0.8, Neut # (Auto) 7.4, Lymph # (Auto) 2.3, Union # (Auto) 0.5, Eos # (Auto) 0.2, [...] for coordination of care (as documented) and egqz-ik-waty counseling of patient and/or family. Attestation Statement - Physician Attestation We will give 2 doses of IV Injectafer and follow-up with me in 3 months. Prior to follow-up check CBC, CMP, iron, ferritin, iron binding capacity. Dictated By: Cheng Almaguer II, DO DD/ 1709 Signed By: <Electronically signed by Cheng Almaguer II, DO> 11/18/20 1710 [facility] Work Phone: Evaluation noteNo assessment information available [facility] Work Phone: Evaluation noteNo InformationNort [employer] Other Evaluation note* Diagnosis Wellness examination- Primary [...] Status Cellulitis of left lower leg noneactive [facility] Work Phone: Evaluation note* Diagnosis Onset Date Resolution Status Cellulitis of left lower leg noneactive Dysuria noneactive [facility] Work Phone: Evaluation note* Diagnosis Onset Date Resolution Status Cellulitis of left lower leg noneactive Abdominal pain acute Hypnagogic hallucinations ac huslia Narcolepsy and cataplexy acu te OCD (obsessive compulsive disorder) acute ROBYN (obstructive sleep apnea) acute Sleep paralysis acute [facility] Work Phone: Evaluation note* Diagnosis Ankle [...] without abnormal findings documented in this encounter [facility] Narrative - Reported* Type Description Date Medical History allergies Medical History asthma Medical History OCD (obsessive compulsive disord er) Medical History Herpes Medical History ROBYN -Auto BiPAP with maximum of 14 minimum of 5 with pressure support of 4. Surgical History D&C Surgical History cholecystectomy Surgical History carpal tunnel release Surgical History C section Hospitalization History see above [facility] Other History general Narrative - Reported* Type [...] History C section Hospitalization History see above [facility] Other History general Narrative - Reported* Type Description Date Medical History allergies Medical History asthma Medical History OCD (obsessive compulsive disord er) Medical History Herpes Medical History ROBYN -Auto BiPAP Medical History suspected narcolepsy - EDS, clinical cataplexy, inconclusive PSG/MSLT Surgical History D&C Surgical History cholecystectomy Surgical History carpal tunnel release Surgical History C section Hospitalization History see above [facility] Other Summary Purpose Family History No Family [...] Unknown grandparent Unknown mother Heart disease Unknown Relationship Condition Age at Onset Recorded Date/T loco grandparent Hypertension Unknown Malignant neoplasm of brain Unknown Malignant neoplasm of lung Unknown mother Lymphoma Unknown Obsessive-compulsive disorder Unknown Myocardial infarction Unknown Hypertension Unknown Unknown Heart disease Unknown sister Obsessive-compulsive disorder Unknown Migraine headache Unknown father Myocardial infarction Unknown Advance Directives No Advanced Directives Records Found Advance Directive Response Recorded Date/ Time Advance Directives No June 03, 2017 10:15am Advance Directive Response Recorded Date/ Time Advance Directives No June 03, 2017 9:15am Hospital Course Note MR#: [id number] [facility] Pt. Name: Linda Alvarado Admitted: 07/07/2019 [...] 5:55pm MSLT RESULTS July 16, 2024 3:40pm Chief Complaint Admit Date H yr f/u Asthma August 03, 2024 3 :24pm sinus congestion, drainage August 10:23am ROBYN/ 3 MONTHS October 28, 2024 3:34pm Reason for Visit Admit Date GERD (gastroesophageal reflux disease) D ec2023 3:24pm Mild intermittent asthma, uncomplicated August 03, 2024 3:24pm Seasonal allergies August 03, 2024 3 :24pm Acute sinusitis August 22, 2024 10:23am Asthma exacerbation August 22, 2024 10:23am Reason for Referral Specialty Diagnoses / Procedures Referred By Shena t Referred To Contact Radiology Diagnoses Ankle edema Abnormal electrocardiogram Procedures Transthoracic Echo (TTE) Complete Gita Garcia PA [address] [facility] [address] [place] [address] [employer] [address] [place] [address] Phone: [phone] Referral ID Status Reason Start Date Expiration Date Visits Requested Visits Authorized [id number] Incomplete Perform Procedure 06/03/2024 11/30/2024 1 1 Additional Source Comments INFORMATION SOURCE (unrecogn ized section and content) DATE CREATED AUTHOR 03/28/2018 [facility] DATE CREATED AUTHOR AUTHOR'S ORGANIZ ATION 03/29/2018 [facility] DATE CREATED AUTHOR AUTHOR'S ORGANIZ ATION 07/08/2019 [facility] DATE CREATED AUTHOR AUTHOR'S ORGANIZ ATION 04/05/2020 [facility] DATE CREATED AUTHOR AUTHOR'S ORGANIZ ATION 09/19/2021 [facility] DATE CREATED AUTHOR AUTHOR'S ORGANIZ ATION 06/25/2024 [facility] DATE CREATED AUTHOR AUTHOR'S ORGANIZ ATION 11/01/2024 [facility] REASON FOR VISIT (unrecogniz ed section and [...] Active Jane Waller MD Attending Provider Active Secondary Art Teacher Relationship Specialty Start Date End Date Elver Mendenhall MD [address] [facility] [address] [place] [address] PCP - General Internal Medicine 03/27/23 Secondary Art Teacher Relationship Specialty Start Date End Date Elver Mendenhall MD [address] [facility] [address] [place] [address] PCP - General Internal Medicine 03/27/23 Secondary Art Teacher Relationship Specialty Start Date End Date Elver Mendenhall MD [address] [facility] [address] [place] [address] PCP - General Internal Medicine 03/27/23 Team Status: Inactive Member Role Status Dates Elver Mendenhall II MD Primary Care Provider Active Start: December 25, 2023 End: December 25, 2023 BEAR DelgadoC Attending Provider Active S tart: December 25, [...] May 20, 2024 End: May 20, 2024 Secondary Art Teacher Relationship Specialty Start Date End Date Elver Mendenhall MD [address] [facility] [address] [place] [address] PCP - General Internal Medicine 03/27/23 Secondary Art Teacher Relationship Specialty Start Date End Date Elver Mendenhall MD [address] [facility] [address] [place] [address] PCP - General Internal Medicine 03/27/23 Team Status: Active Member Role Status Dates NOVA Dhaliwal Primary Care Provider Active Team Status: Inactive [...] July 16, 2024 End: July 16, 2024 Secondary Art Teacher Relationship Specialty Start Date End Date Elver Mendenhall MD [address] [place] [address] [place] [address] PCP - General Internal Medicine 03/27/23 Secondary Art Teacher Relationship Specialty Start Date End Date Elver Mendenhall MD [address] [place] [address] [place] [address] PCP - General Internal Medicine 03/27/23 Secondary Art Teacher Relationship Specialty Start Date End Date Elver Mendenhall MD [address] [facility] [address] [place] [address] PCP - General Internal Medicine 03/27/23 Secondary Art Teacher Relationship Specialty Start Date End Date Elver Mendenhall MD [address] [place] [address] [place] [address] PCP - General Internal Medicine 03/27/23 Secondary Art Teacher Relationship Specialty Start Date End Date Elver Mendenhall MD [address] [place] [address] [place] [address] PCP - General Internal Medicine 03/27/23 Secondary Art Teacher Relationship Specialty Start Date End Date Elver Mendenhall MD [address] [place] [address] [place] [address] PCP - General Internal Medicine 03/27/23 Secondary Art Teacher Relationship Specialty Start Date End Date Elver Mendenhall MD [address] [place] [address] [place] [address] PCP - General Internal Medicine 03/27/23 Secondary Art Teacher Relationship Specialty Start Date End Date Elver Mendenhall MD [address] [place] [address] [place] [address] PCP - General Internal Medicine 03/27/23 Team Status: Inactive Member Role Status Dates Gita Garcia NP-C Primary Care Provider Active Start: August 03, 2024 End: August 03, 2024 Ciera Mcwilliams APRN ACNP- Attending Provider Active Start: August 03, 2024 End: August 03, 2024 Team Status: Inactive Member Role Status Dates Gita Garcia NP-C Primary Care Provider Active Start: August 22, 2024 End: August 22, 2024 Abiola Rodríguez APRN Attending Provider Active Start: August 22, 2024 End: August 22, 2024 Team Status: Inactive Member Role Status Dates Gita Garcia NP-C Primary Care Provider Active Start: October 28, 2024 End: October 28, 2024 Jane Waller MD Attending Provider Active S tart: October 28, 2024 End: October 28, 2024 Goals (unrecognized section and content) Goals [...] BE BASED ON THE PRIMARY CLINICAL RECORDS. [employer] provides no warranty or guarantee of the accuracy or completeness of information in this document.
--- NOTE | 2024-11-06 00:25 | ED.EXTPRO1 ---
HPI - Extremity Problem General Chief complaint: Extremity Problem, Nontraumatic Stated complaint: RIGHT TIBIA PAIN Time Seen by Provider: 11/06/24 00:05 Source: patient Mode of arrival: walk-in Limitations: no limitations History of Present Illness HPI Narrative: This 49-year-old female with a history of sciatica presents for evaluation of right sided pain and right knee pain. The patient states her right knee has been bothering her for approximately 1 week. In 2018 she broke her tibial plateau and had surgery with Dr. Curtis at [facility]. She denies any recent injury but states her knee has been bothering her and she was thinking it was may be coming from her sciatica which is also been bothering her. She denies any calf pain or swelling. The pain is circumferential in her knee. She does have a healed incision at the proximal tibia. She does not smoke or drink. She denies any chest pain or shortness of breath. The patient states her brought her to the emergency department because she could not sleep due to the pain. She had taken ibuprofen earlier in the evening without any significant relief. Related Data Home Medications ?Medication ?Instructions ?Recorded ?Confirmed atorvastatin 10 mg tablet 10 mg PO DAILY 05/03/23 05/30/24 citalopram 40 mg tablet 20 mg PO .qhs 05/03/23 05/31/24 dextroamphetamine-amphetamine 20 20 mg PO DAILY 05/03/23 05/30/24 mg tablet diltiazem HCl 120 mg 120 mg PO .qhs 05/03/23 05/31/24 capsule,extended release 24 hr omeprazole 40 mg capsule,delayed 40 mg PO BID 05/03/23 05/30/24 release solriamfetol 150 mg tablet (Sunosi) 150 mg PO DAILY 05/03/23 05/30/24 valacyclovir 500 mg tablet 500 mg PO DAILY 05/03/23 05/30/24 eletriptan 40 mg tablet 40 mg PO Q2H PRN headache 05/30/24 05/31/24 fluticasone 500 mcg-salmeterol 50 1 inh inhalation BID 05/30/24 05/31/24 mcg/dose blistr powdr for inhalation fluticasone propionate 50 1 spray intranasal DAILY 05/30/24 05/31/24 mcg/actuation nasal spray,suspension Previous Rx's ?Medication ?Instructions ?Recorded potassium chloride 20 mEq 20 meq PO BID #60 tabs 05/31/24 tablet,extended release torsemide 10 mg tablet 10 mg PO QDAY PRN Lower Leg edema 05/31/24 #0 tabs methocarbamol 750 mg tablet 750 mg PO TID PRN pain #20 tabs 06/22/24 methylprednisolone 4 mg tablets in See Rx Instructions .Route 06/22/24 a dose pack (Medrol (Tomer)) .COMPLEX #21 ea oxycodone-acetaminophen 5 mg-325 1 tab PO Q6H PRN pain 3 days #12 06/22/24 mg tablet (Percocet) tabs Allergies Allergy/AdvReac Type Severity Reaction Status Date / Time sulfamethoxazole (From Allergy unknown Verified 11/06/24 00:09 Bactrim) trimethoprim (From Bactrim) Allergy unknown Verified 11/06/24 00:09 Sulfa (Sulfonamide AdvReac Mild Unknown Verified 11/06/24 00:09 Antibiotics) [facility] Medical History (Updated 11/06/24 @ 01:52 by Vanessa Waite MD) Morbid obesity ?E66.01 - Morbid (severe) obesity due to excess calories (ICD-10) HLD (hyperlipidemia) ?E78.5 - Hyperlipidemia, unspecified (ICD-10) ADHD ?F90.9 - Attention-deficit hyperactivity disorder, unspecified type (ICD-10) ROBYN (obstructive sleep apnea) ?G47.33 - Obstructive sleep apnea (adult) (pediatric) (ICD-10) HTN (hypertension) ?I10 - Essential (primary) hypertension (ICD-10) Peripheral edema ?R60.0 - Localized edema (ICD-10) Colonoscopy planned H/O acute cholecystitis ?Z87.19 - Personal history of other diseases of the digestive system (ICD-10) Cholecystectomy planned High blood cholesterol ?E78.00 - Pure hypercholesterolemia, unspecified (ICD-10) Asthma ?J45.909 - Unspecified asthma, uncomplicated (ICD-10) Abdominal pain ?R10.9 - Unspecified abdominal pain (ICD-10) Numbness and tingling ?R20.0 - Anesthesia of skin (ICD-10) ?R20.2 - Paresthesia of skin (ICD-10) Hypokalemia ?E87.6 - Hypokalemia (ICD-10) Surgical History (Updated 05/30/24 @ 23:42 by Dilshad Jc) History of orthopedic surgery ?Z98.890 - Other specified postprocedural states (ICD-10) Family History (Updated 05/30/24 @ 23:44 by Dilshad Jc) Mother Family history of myocardial infarction Family history of cancer Father Family history of myocardial infarction Social History Within the past year, how often did you have a drink containing alcohol: never Score interpretation: A score less than 3 is consistent with normal alcohol consumption. Smoking 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 smoker Non-prescribed substance use: denies use Highest level of school completed/degree received: high school graduate Little interest or pleasure in doing things: not at all Feeling down, depressed, or hopeless: not at all Exam Narrative Exam Narrative: Vital signs and Nursing Notes reviewed: Is afebrile with a normal pulse, she has an elevated blood pressure 123/94, she is not hypoxic with pulse ox of 100% on room air General: Awake, alert, oriented, tearful, no respiratory distress HEENT: Normocephalic atraumatic, mucous membranes are moist and pink, eyes are clear, normal conjunctiva, vision is grossly intact Chest: Lungs are clear to auscultation with good air entry, there is no wheezing rhonchi or rales appreciated no accessory muscle use, patient is speaking in complete sentences-no chest wall tenderness to palpation CVS: Regular rate and rhythm S1-S2, no murmurs rubs or gallops, pulses are brisk and equal bilaterally ABD: Soft, nondistended, nontender, no rebound guarding or rigidity, bowel sounds are normal, no pulsatile masses appreciated Extremities: No midline bony vertebral tenderness in the thoracic or lumbar spine. No reproducible tenderness in the buttock or piriformis area. Patient's right leg does not show any sign of acute infection with no erythema or induration. I do not appreciate any effusion. She is able to bend it and flex it. This does cause a certain degree of discomfort. The joint is stable with negative anterior draw. There is no calf swelling or tenderness. There is a well-healed incision overlying the right tibia. Feet are warm and sensate with normal capillary refill and pulses. Patient is wearing shorts and the legs were compared [id number] with no calf size discrepancy. Skin: Normal in appearance without rash,pallor, petechiae or purpura Neuro: No focal deficits Constitutional Vital Signs, click to edit/add: Last Vital Signs Temp 98.0 F 11/06/24 00:06 Pulse 98 H 11/06/24 00:06 Resp 15 11/06/24 00:06 BP 123/94 H 11/06/24 00:06 Pulse Ox 100 11/06/24 00:06 O2 Del Method Room Air 11/06/24 00:06 Course Vital Signs Vital signs: Vital Signs Temperature 98.0 F 11/06/24 00:06 Pulse Rate 98 H 11/06/24 00:06 Respiratory Rate 15 11/06/24 00:06 Blood Pressure 123/94 H 11/06/24 00:06 Pulse Oximetry 100 11/06/24 00:06 Oxygen Delivery Method Room Air 11/06/24 00:06 Temperature 98.0 F 11/06/24 00:06 Pulse Rate 98 H 11/06/24 00:06 Respiratory Rate 15 11/06/24 00:06 Blood Pressure 123/94 H 11/06/24 00:06 Pulse Oximetry 100 11/06/24 00:06 Oxygen Delivery Method Room Air 11/06/24 00:06 MDM - Extremity (Nontraumatic) MDM Narrative Medical decision making narrative: This 49-year-old female who had a tibial plateau fracture in 2019 and was transferred to [facility] for operative repair presents for evaluation of pain in her right knee. She denies any injury. She has pain across the anterior knee and in the posterior popliteal area. She has not had any fever. Her incision looks normal. She states for the past week she has been having pain in this knee but it has increased in intensity making her unable to sleep. She also has a history of sciatica on the right side and states her pain started with some pain in her right low back and buttock area. She does not have any reproducible pain in her back or buttock area at this time. Her knee appears normal but she has pain with range of motion. She has brisk pulses. Calf sizes are equal. X-ray of the extremity was ordered and shows hardware in the tibia that appears to be intact with no effusion or notable abnormality to the hardware, no effusion or bony fracture/dislocation. Radiologist report is pending. A D-dimer was ordered due to the pain out of proportion and elevated pulse although patient is not on control and does not smoke. D-dimer is normal. She was medicated with a dose of [place] and Zofran. Results of the patient's labs and x-ray were discussed with her. She will be discharged home with prescription for Norflex, [place] and ibuprofen. I did review her OAR[facility] report and there has not been any recent narcotic activity however she does take monthly Rx for Sonosi- medication for narcolepsy Lab Data Labs: Lab Results 11/06/24 Range/Units 00:50 D-Dimer 0.19 (<=0.59) mg/L FEU Discharge Plan Discharge Chief Complaint: Extremity Problem, Nontraumatic Clinical Impression: Acute knee pain, Acute right-sided back pain with sciatica Patient Disposition: Home, Self-Care Time of Disposition Decision: 01:54 Prescriptions / Home Meds: No Action atorvastatin 10 mg tablet 10 mg PO DAILY citalopram 40 mg tablet 20 mg PO .qhs dextroamphetamine-amphetamine 20 mg tablet 20 mg PO DAILY diltiazem HCl 120 mg capsule,extended release 24hr 120 mg PO .qhs omeprazole 40 mg capsule,delayed release(DR/EC) 40 mg PO BID Sunosi 150 mg tablet 150 mg PO DAILY valacyclovir 500 mg tablet 500 mg PO DAILY fluticasone propion-salmeterol 500-50 mcg/dose blister with device 1 inh INHALATION BID fluticasone propionate 50 mcg/actuation spray,suspension 1 spray INTRANASAL DAILY eletriptan 40 mg tablet 40 mg PO Q2H PRN (Reason: headache) potassium chloride 20 mEq tablet extended release 20 meq PO BID Qty: 60 0RF torsemide 10 mg tablet 10 mg PO QDAY PRN (Reason: Lower Leg edema) Qty: 0 0RF oxycodone-acetaminophen [Percocet] 5-325 mg tablet 1 tab PO Q6H PRN (Reason: pain) 3 Days Qty: 12 0RF Rx Instructions: DX: M54.5 methocarbamol 750 mg tablet 750 mg PO TID PRN (Reason: pain) Qty: 20 0RF methylprednisolone [Medrol (Tomer)] 4 mg tablets,dose pack See Rx Instructions .ROUTE .COMPLEX Qty: 21 0RF Rx Instructions: Taper as directed Print Language: Citizen [place] Instructions: Sciatica (ED), Knee Pain (ED), Arthralgia (ED) Referrals: DOMITILA HUYNH [Primary Care Provider] - 1 week
[2024-11-06] MEDS: HYDROCODONE/ACET 5-325 MG TABLET 1 TAB PO (00:41)
[2024-11-06] MEDS: ONDANSETRON 4 MG RAPDIS TABLET SL (00:41)
[2024-11-06 01:22] LABS: D Dimer 0.19 mg/L FEU (<=0.59)
[2024-11-06] MEDS: HYDROCODONE/ACET 5-325 MG TABLET 2 TAB PO (02:14)
== END 2024-11-06 02:18 | disposition home or self-care (01) ==
PROVIDERS: Emergency Provider Emergency Medicine; PCP Internal Medicine
DX: M25.561 Pain in right knee (principal); M54.41 Lumbago with sciatica, right side
CPT/HCPCS: 36415; 73562; 85378; 99284; Q0162

== ENCOUNTER 2025-01-16 12:47 | Emergency (ER) | payer BC, SELFPAY ==
[2025-01-16 12:58] VITALS: BP 173/89; PULSE 87; TEMP 37; O2SAT 97; BMI 35.2
--- OUTSIDE RECORDS SUMMARY | 2025-01-16 13:00 | XMS_ITS | CCD ---
Author Organization [facility] Care Team Providers Care Operations Representative Name Role Phone UNKNOWN, PROVIDER Unavailable Unavailable ELVER MENDENHALL Unavailable Unavailable ELVER MENDENHALL Primary Care Unavailable NAOMI MOROCHO Admitting Unavailable BAILEE, NAOMI Vasques Attending Unavailable JANE NAQVI V Consulting Unavailable BAILEE, NAOMI Vasques Consulting [...] LLANES Attending Unavailable EBRAHEIM, IAN Admitting Unavailable ID Procedure Practitioner Unavailab IAN [place] Surgeon Unavailable Jane Waller Unavailable Ciera Mcwilliams Unavailable Tracy Oliver Unavailable OSCAR Mendenhall Primary Care Provider MD Jane Waller. Attending Provider [phone] OSCAR Mendenhall Primary Care Provider [phone] MD Jane Waller Attending Provider [phone] Efraín Patel Unavailable OSCAR Mendenhall Primary Care Provider [phone] MD Jane Waller. Attending Provider Elver Mendenhall MD Primary Care Provider OSCAR Mendenhall Primary Care Provider [phone] MD Jane Waller Attending Provider [phone] Jane Waller Admitting Unavailable Jane Waller Attending Unavailable AbdirashidSageel Primary Care Unavailable Jane Waller Attending Unavailable Jane Waller Admitting Unavailable AbdirashidElver Primary Care Unavailable Jane Waller Attending Unavailable Jane Waller Admitting Unavailable Elver Mendenhall II Primary Care Provider Jane Waller MD Attending Provider GITA GARCIA Referring Unavailable SEB KITCHEN Attending Unavailable SEB KITCHEN Referring Unavailable GITA GARCIA Attending Unavailable TREVER BARNARD Attending Unavailable TREVER BARNARD Attending Unavailable GITA GARCIA Attending Unavailable TREVER BARNARD Attending Unavailable LENNY SNOW Attending Unavailable SHWETA VIDAL Referring Unavailable SHWETA VIDAL Attending Unavailable SHWETA VIDAL Attending Unavailable Allergies Allergy Classification Reported Allergen(s) Allergy Type Date of Onset Reaction(s) Facility (2 sources) Morphine Drug Allergy 9 [facility] (1 source) Sulfamethoxazole / Trimethoprim Drug Allergy 6 [facility] (2 sources) Sulfonamides (Antibiotic); Translations: [SULFA (SULFONAMIDE ANTIBIOTICS)] Drug allergy (disorder) 9 [facility] (20 sources) Clarithromycin; Translations: [clarithromycin] Drug Allergy 1 GI intolerance [facility] (14 sources) Sulfanilamide; Translations: [sulfanilamide] Drug Allergy 1 Unknown Reaction, Anaphylaxis [facility] (20 sources) Sulfonamides (Antibiotic) Drug Allergy 3 Unknown [facility] Medications Current Medications Medication Drug Class(es) Dates Sig (Normalized) Sig (Original) acetaminophen 325 mg / oxyCODONE hydrochloride 5 mg oral tablet (2 sources) Opioid Agonist Start: 06-22-2024 take 1 tablet [...] times daily as needed August 03, 2024 1:00am FreeTextSi ml Inhalation qid prn dx: J45.20 asthma; Note: Source Status: Taking; Provider: Poppy Vang Start: 11-18-2020 take 1 puff(s) by in halation every four to six hours as needed Albuterol Sulfate (Proair Hfa) 90 mcg/actuation Hfa Aerosol Inhaler Active 2 PUFF INHALATION EVERY 4-6 HOURS as needed for breathing November 18, 2020 12:00am albuterol HFA 90 [...] BY MOUTH EVERY DAY IN THE MORNING 100 tablet 3 12/11/2024 Active Bilevel Positive Airway Pressure (Bipap) unit (2 sources) Start: 07-20-2024 Bilevel Positi ve Airway Pressure (Bipap) unit Active 0 .Route July 20, 2024 1:00am As directed DME [employer] see's Dr. Waller Start: 07-20-2024 Bilevel Positi ve Airway Pressure (Bipap) unit Active 0 .Route July 20, 2024 12:00am As directed [facility] [employer] herbie's Dr. Waller BIPAP Machine (20 sources) BIPAP Machine Active cephalexin 500 mg oral capsule (1 source) Cephalosporin Antibacterial Start: 12-29-19 take 1 capsule by mouth every six hours Cephalexin 500 mg capsule Active 500 MG PO Every 6 hours 28 7 December 28, 2024 12:00am cetirizine hydrochloride 10 mg oral tablet (20 sources) Histamine-1 Receptor Antagonist Start: 11-19-19 take 1 tablet by mouth once daily as needed Cetirizine 10 mg Tablet Active 10 MG PO Daily as needed for seasonal allergy November 18, 2020 12:00am take 1 capsule by mo uth every twenty-four hours ZyrTEC Allergy 10 MG 1 tab(s) Orally Daily Active cholecalciferol 0.05 mg oral capsule (20 sources) Vitamin D cholecalciferol (Vitamin D-3) 50 MCG (1999) capsule Active citalopram 40 mg oral tablet (20 sources) Serotonin Reuptake Inhibitor Start: 12-03-19 take 0.5 tablet by mouth once daily citalopram (CeleXA) 40 MG tablet Indications: Obsessive-compulsive disorder, unspecified type (CMS/HCC) Take 0.5 tablets (20 mg) by mouth Daily 45 tablet 3 12/02/2024 Active Start: 11-18-2020 End: 08-22-2024 take 0.5 tablet by mouth once daily Citalopram 40 mg tablet Discontinued 20 MG PO As Directed January 30, 2024 9:52am August 22, 2024 12:21pm 1/2 tablet orally once a day Start: [...] Start: 02-28-2023 take 1 capsule by mo uth every twenty-four hours in the morning dilTIAZem CD (Cardizem CD) 120 MG 24 hr capsule Indications: Tachycardia Take 1 capsule (120 mg) by mouth in the morning. 100 capsule 3 02/28/2023 Active Start: 11-18-2020 take 120 mg by mouth once demario y Diltiazem Hcl Active 120 MG PO Daily November 18, 2020 12:00am Diltiazem Hcl 120 mg Capsule,Ext.Rel 24h Degradable (3 sources) Start: 11-18-2020 take 1 capsule by mouth once daily Diltiazem Hcl 120 mg Capsule,Ext.Rel 24h Degradable Active 120 MG PO Daily November 18, 2020 12:00am Start: 11-18-2020 take 1 capsule by mo uth once daily Diltiazem Hcl 120 mg Capsule,Ext.Rel 24h Degradable Active 120 MG PO Daily November 17, 2020 11:00pm doxycycline hyclate 100 mg oral capsule (11 sources) Tetracycline-class Drug Start: 08-22-2024 take 1 capsule by mouth in the morning doxycycline (Vibramycin) 100 MG capsule Take 100 mg by mouth in the morning and 100 mg before bedtime. 08/22/2024 Active Start: 08-19-2021 take 1 capsule by [facility] every twelve hours Doxycycline Monohydrate 100 MG 1 capsule Orally every 12 hrs for 7 days Aug, Active eletriptan 40 mg oral tablet (20 sources) Serotonin-1b and Serotonin-1d Receptor Agonist Start: 11-18-2020 take 1 tablet by mouth every two hours, then take 2 tablets by mouth every twenty-four hours eletriptan (Relpax) 40 MG tablet Indications: Other migraine without status migrainosus, intractable TAKE 1 TABLET BY MOUTH, REPEAT IN 2 HOURS IF HEADACHE RETURNS,*NO MORE THAN 2 DOSES IN 24 HOURS 12 tablet 12 08/31/2024 Active fluconazole 150 mg oral tablet (20 sources) Azole Antifungal Start: 12-25-2023 End: 01-07-2025 fluconazole (Diflucan) 150 MG tablet Indications: Peg infection Take 1 tablet (150 mg) by mouth Daily for 1 day, THEN 1 tablet (150 mg) Daily for 1 day. Take doses 3 days apart. 2 tablet 01/05/2025 01/07/2025 Active Start: 08-19-2021 Diflucan 150 M G 1 tablet Orally if needed after antibiotics completed for 1 days Aug, Active fluticasone propionate 0.05 mg/actuat metered dose nasal spray (20 sources) Corticosteroid Start: 06-01-2024 take 1-2 spray(s) nasal route once daily Fluticasone Propionate 50 mcg/actuation spray,suspension Active 0 .ROUTE .COMPLEX 48 June 01, 2024 12:44pm SPRAY 1 TO 2 SPRAYS INTO EACH NOSTRIL ONCE A DAY Start: 10-28-2022 take 1-2 spray(s) na pankaj route once daily fluticasone (Flonase) 50 MCG/ACT nasal spray SPRAY 1 TO 2 SPRAYS IN EACH NOSTRIL ONCE DAILY 10/28/2022 Active Start: 11-18-2020 End: 08-03-2024 Fluticasone Propionate (Flon ase) 50 mcg/actuation Pawling,Suspension Discontinued 1 SPRAY INTRANASAL Daily November 18, 2020 12:00am August 03, 2024 4:39pm take 1-2 spray(s) na pankaj route once daily Fluticasone Propionate 50 MCG/ACT 1-2 spray in each nostril Nasally Once a day for 30 day(s) Active Fluticasone Propion-Salmeterol (20 sources) Corticosteroid, beta2-Adrenergic Agonist Start: 08-03-2024 Fluticasone Propion-Salmeterol 500-50 mcg/dose blister with device Active 1 INH INHALATION Twice daily 3 August 03, 2024 5:11pm Start: 08-03-2024 Fluticasone Pr opion-Salmeterol 500-50 mcg/dose blister with device Active 1 INH INHALATION Twice daily 3 August 03, 2024 4:11pm Start: 08-03-2024 End: 08-03-2024 Fluticasone Propion-Salmeter ol 500-50 mcg/dose blister with device Discontinued 1 INH INHALATION Twice daily August 03, 2024 1:00am August 03, 2024 5:12pm Start: 08-03-2024 End: 08-03-2024 Fluticasone Propion-Salmeter ol [...] Discontinued 1 EACH INHALATION Twice daily November 18, 2020 12:00am June 01, 2024 12:44pm Start: 11-18-2020 End: 06-01-2024 Fluticasone Propion-Salmeter ol [...] INHALATION Twice daily November 18, 2020 12:00am meloxicam 15 mg oral tablet (1 source) Nonsteroidal Anti-inflammatory Drug Start: 12-28-2024 Meloxicam 15 mg tablet Active MG PO December 28, 2024 12:00am methocarbamol 750 mg oral tablet (2 sources) Muscle Relaxant Start: 06-22-2024 take 1 tablet [...] Start: 11-18-2020 take 1 capsule by mo [facility] once daily Omeprazole 40 mg Capsule,Delayed Release(Dr/Ec) Active 40 MG PO Daily November 18, 2020 12:00am potassium chloride 20 meq extended release oral tablet (20 sources) Start: 08-22-2024 take 1 tablet by mouth twice daily Potassium Chloride 20 mEq tablet extended release Active 20 MEQ PO Twice daily August 22, 2024 1:00am Start: 08-03-2024 take 2 tablets by mo [facility] in the morning potassium chloride CR (Klor-Con) 10 MEQ ER tablet Indications: Hypokalemia Take 2 tablets (20 mEq) by mouth in the morning and 2 tablets (20 mEq) before bedtime. 120 tablet 6 08/03/2024 Active Start: 06-03-2024 take 2 tablets by mo [facility] in the morning potassium chloride CR (Klor-Con) [...] 09/24/2022 Active predniSONE 10 mg oral tablet (4 sources) Start: 10-12-2024 Prednisone 10 mg tablet Active 10 MG PO As Directed October 12, 2024 1:00am 4 tablets daily x 3 days, 2 tablets daily x 3 days, 1 tablet daily x 7 days then stop Start: 08-22-2024 End: 10-12-2024 take 2 tablets by mouth once daily Prednisone 20 mg tablet Discontinued 20 MG PO .COMPLEX August 22, 2024 1:00am October 12, 2024 1:41pm Take 2 tabs po daily x 5 [...] Jan, Active Solriamfetol (Sunosi) 150 mg tablet (17 sources) Start: 10-28-2024 take 1 tablet by mouth once daily Solriamfetol (Sunosi) 150 mg tablet Active 150 MG PO Daily October 28, 2024 5:58pm Start: 10-28-2024 take 1 tablet by willow th once daily Solriamfetol (Sunosi) 150 mg tablet Active 150 MG PO Daily October 28, 2024 4:58pm Start: 08-04-2024 End: 10-28-2024 take 1 tablet by mouth once daily Solriamfetol (Sunosi) 150 mg tablet Discontinued 150 MG PO Daily August 04, 2024 1:43pm October 28, 2024 5:58pm Start: 08-04-2024 End: 10-28-2024 take 1 tablet by mouth once daily Solriamfetol (Sunosi) 150 mg tablet Discontinued 150 MG PO Daily August 04, 2024 12:43pm October 28, 2024 4:58pm Start: 03-11-2024 End: 08-04-2024 take 1 tablet by mouth once daily Solriamfetol (Sunosi) 150 mg tablet Discontinued 150 MG PO Daily March 11, 2024 1:15pm August 04, 2024 1:44pm Start: 03-11-2024 End: 08-04-2024 take 1 tablet [...] 2023 12:00am torsemide 10 mg oral tablet (20 sources) Loop Diuretic Start: 09-07-2024 take 1 tablet by mouth once daily torsemide (Demadex) 10 MG tablet Indications: Ankle edema TAKE 1 TABLET (10 MG) BY MOUTH DAILY. 90 tablet 1 09/07/2024 Active Start: 05-13-2024 End: 08-22-2024 Torsemide 10 mg tablet Disco ntinued 10 MG PO July 16, 2024 1:00am August 22, 2024 12:21pm valACYclovir 500 mg oral tablet (20 sources) [...] January 30, 2024 9:53am Start: 12-20-2020 End: 10-28-2024 take 1 tablet by mouth once daily Dextroamphetamine-Amphetamine (Adderall) 20 mg tablet Discontinued 0 PO Daily 90 90 July 16, 2024 October 28, 2024 5:58pm 1/2 to 1 tablet at noon orally daily; cefTRIAXone (18 sources) Cephalosporin Antibacterial Start: 03-10-2016 Rocephin 500 mg Mar, 500 mg cyclobenzaprine hydrochloride 5 mg oral tablet (13 sources) Muscle Relaxant Start: 11-18-2020 End: 01-30-2024 Cyclobenzaprine 5 mg Tablet Discontinued 5 MG PO As Directed as needed for Muscle Spasm November 18, 2020 12:00am January 30, 2024 9:52am hydroCHLOROthiazide 25 mg oral tablet (20 sources) Thiazide Diuretic Start: 11-18-2020 End: 07-16-2024 take 1 tablet by mouth once daily Hydrochlorothiazide 25 mg tablet Discontinued 25 MG PO Daily December 25, 2023 12:00am July 16, 2024 5:20pm modafinil 200 mg oral tablet (13 sources) Sympathomimetic-l thanh Agent Start: 11-18-2020 End: [...] Chloride (Klor-Con M10) 10 mEq tablet,ER particles/crystals (3 sources) Start: 07-16-2024 End: 08-22-2024 Potassium Chloride (Klor-Con M10) 10 mEq tablet,ER particles/crystals Discontinued MEQ PO July 16, 2024 1:00am August 22, 2024 12:19pm Start: 07-16-2024 End: 08-22-2024 Potassium Chloride (Klor-Con M10) 10 mEq tablet,ER particles/crystals Discontinued MEQ PO July 16, 2024 12:00am August 22, 2024 11:19am Start: 07-16-2024 Potassium Chlo ride (Klor-Con M10) 10 mEq tablet,ER particles/crystals Active MEQ PO July 16, 2024 12:00am promethazine hydrochloride 25 mg oral tablet (13 sources) Phenothiazine Start: 11-18-2020 End: 12-25-2023 take [...] without status migrainosus] Onset: 11-17-2008 02-20-2023 Chronic Mycoses (1 source) Candidiasis; Translations: [Candidiasis, unspecified] 01-05-2025 Episodic Nonspecific chest pain (1 source) Chest pain, unspecified; Translations: [Chest pain, unspecified] Onset: 03-27-2018 Episodic Osteoarthritis (2 sources) Unilateral post-traumatic osteoarthritis, right knee; Translations: [Unilateral post-traumatic osteoarthritis, right knee] Onset: 11-30-2024 Chronic Other acquired deformities (2 sources) Scoliosis of lumbar spine; Translations: [Scoliosis, unspecified] Onset: 08-28-2024 08-28-2024 Chronic Other acquired deformities (2 sources) Scoliosis, unspecified; Translations: [Scoliosis, unspecified] Onset: 12-09-2024 Chronic Other acquired deformities (2 sources) Spondylolysis, lumbar region; Translations: [Spondylolysis, lumbar region] Onset: 12-09-2024 Episodic Other aftercare (1 source) Other intermediate card tender (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 therapy; Translations: [OTH SHANK INSPECTOR CURRENT DRUG THERAPY] Onset: 07-08-2019 Episodic Other [...] 05-13-2024 01-30-2024 Chronic Other nervous system disorders (12 sources) Narcolepsy with cataplexy; 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, with [...] 11-17-2008 02-20-2023 Chronic Other upper respiratory disease (2 sources) Seasonal allergy; Translations: [Other seasonal allergic rhinitis] 08-03-2024 Chronic Other upper respiratory disease (1 source) Other seasonal allergic rhinitis; Translations: [Allergic rhinitis, cause unspecified] 08-03-2024 Chronic Other upper respiratory infections (1 source) Chronic sinusitis; Translations: [Chronic sinusitis, unspecified] 08-28-2024 Chronic Other upper respiratory infections (3 sources) Acute sinusitis; Translations: [Acute sinusitis, unspecified] 08-22-2024 Episodic Residual codes; unclassified (18 sources) Obstructive sleep apnea (adult) (pediatric); Translations: [...] Onset: 05-13-2024 01-30-2024 Chronic Residual codes; unclassified (3 sources) Other sleep disorders; Translations: [Sleep related movement disorder, unspecified] Chronic Residual codes; unclassified (1 source) Obstructive sleep apnea (adult)(pediatric); Translations: [Obstructive sleep apnea (adult) (pediatric)] Onset: 08-01-2023 Chronic Residual codes; unclassified (4 sources) Localized edema; Translations: [LOCALIZED EDEMA] Onset: 06-08-2019 Episodic Residual codes; unclassified (8 sources) Other hallucinations; Translations: [Hallucinations] Onset: 06-01-2021 Resolved: 02-22-2022 Episodic Residual codes; unclassified (1 source) Transient alteration of awareness; Translations: [Transient alteration of awareness] Onset: 05-20-2024 Episodic Spondylosis; intervertebral disc disorders; other back problems (2 sources) Other intervertebral disc displacement, lumbar region; Translations: [Other intervertebral disc displacement, lumbar region] Onset: 12-09-2024 Chronic Unclassified (2 sources) Chest pain, unspecified / R07.9(ICD-9) Onset: 03-27-2018 Unclassified (20 sources) Patient on antidepressant monitoring plan Onset: 03-30-2024 03-30-2024 Unclassified (20 sources) Baseline PHQ-9 Onset: 03-30-2024 03-30-2024 Unclassified (1 source) Other intervertebral disc degeneration, lumbar region with discogenic back pain and lower extremity pain; Translations: [Other intervertebral disc degeneration, lumbar region with discogenic back pain and lower extremity pain] Onset: 12-09-2024 Past or Other Problems Problem Classification Problem Date Documented Da te Episodic/Chronic Abdominal pain (20 sources) Abdominal pain; Translations: [Unspecified abdominal pain] Onset: 4 01-09-2024 Episodic Asthma (20 sources) Unspecified asthma, uncomplicated; Translations: [Mild intermittent asthma] Onset: 9 Resolved: 3 Chronic Cardiac dysrhythmias (20 sources) Tachycardia; Translations: [Tachycardia, unspecified] Onset: 3 02-20-2023 Episodic Contraceptive and procreative management (20 sources) Patient encounter status; Translations: [Encounter for fertility testing] Onset: 1 Resolved: 4 03-27-2023 Episodic Deficiency and other anemia (20 sources) Anemia; Translations: [Anemia, unspecified] Onset: 4 03-13-2021 Episodic Diabetes mellitus without complication (20 [...] Onset: 9 Episodic Fluid and electrolyte disorders (15 sources) Hypokalemia; Translations: [Dehydration] Onset: 9 06-03-2024 Episodic Fracture of lower limb (20 sources) [...] COLITIS UNS] Onset: 9 Episodic Nutritional deficiencies (20 sources) Iron deficiency; Translations: [Iron deficiency] Onset: 3 02-20-2023 Episodic Other connective tissue disease (19 sources) Peroneal tendinitis of left lower limb; Translations: [Peroneal tendinitis, left leg] Onset: 4 06-03-2024 Episodic Other connective tissue disease (19 sources) Peroneal tendinitis of right lower limb; Translations: [Peroneal tendinitis, right leg] Onset: 4 06-03-2024 Episodic Other diseases of veins and lymphatics (18 sources) Vascular insufficiency; Translations: [Venous insufficiency (chronic) (peripheral)] Onset: 4 06-03-2024 Episodic Other gastrointestinal disorders (1 source) Diarrhea, unspecified; Translations: [DIARRHEA UNSPECIFIED] Onset: 9 Episodic Other injuries and conditions due to external causes (20 sources) H/O: fracture; Translations: [Personal history of (healed) traumatic fracture] Onset: 3 02-20-2023 Episodic Other liver diseases (20 sources) ALT (SGPT) level raised; Translations: [Elevated ALT measurement] Onset: 3 02-20-2023 Episodic Other nervous system disorders (20 sources) Narcolepsy without cataplexy ; 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 without cataplexy] Onset: 3 Resolved: 3 03-28-2023 Chronic Other non-traumatic joint disorders (20 [...] OTH PART DIGESTV TRACT] Onset: 9 Episodic Residual codes; unclassified (20 sources) Hypnagogic hallucinations; Translations: [Other hallucinations] Onset: 4 01-30-2024 Episodic Residual codes; unclassified (12 sources) Family history of cardiac disorder; Translations: [Family history of ischemic heart disease and other diseases of the circulatory system] Onset: 4 06-03-2024 Episodic Skin and subcutaneous tissue infections (6 sources) Cellulitis of right lower limb; Translations: [Cellulitis of left lower limb] Onset: 1 Resolved: 1 Episodic Spondylosis; intervertebral disc disorders; other back problems (6 sources) Stenosis of vertebral foramen; Translations: [Spinal stenosis, site unspecified] Onset: 4 08-28-2024 Episodic Syncope (1 source) Syncope and collapse; Translations: [SYNCOPE AND COLLAPSE] Onset: 9 Episodic Unclassified (1 source) Other intervertebral disc degeneration, lumbar region with discogenic back pain and lower extremity pain; Translations: [Other intervertebral disc degeneration, lumbar region with discogenic back pain and lower extremity pain] Onset: 5 Results Test Name Value Interpretation Reference Range Facility Refillon 12-29-2024 Refill [id number] Linda Alvarado 1975 F Date Provider Department Center 12/29/2024 SHWETA SILVA MP ORTHO MP[facility]THO Family History Problem Relation Age of Onset Cancer Mother Cancer Paternal Grandfather Diabetes Paternal Grandfather Scoliosis Paternal Grandmother Family Status - Relation Status Age at Mother Paternal Grandfather Paternal Grandmother Reason for Visit and Comments: Med Refill [[id number]] [facility] Follow-Upon 12-09-2024 Follow-Up [id number] Linda Alvarado N 1975 Provider Department Center 12/09/2024 SHWETA SILVA MP Family History Problem Relation Age of Onset Cancer Mother Cancer Paternal Grandfather Diabetes Paternal Grandfather Scoliosis Paternal Grandmother Family Status - Relation Status Age at Mother Paternal Grandfather Paternal Grandmother Level of Service:06949 ID OFFICE/OUTPATIENT ESTABLISHED LOW MDM 20 MIN Reason for Visit and Comments: Pain [136] [facility] Office Visiton 11-30-2024 Follow-up visit [id number] Linda Alvarado N 1975 Provider Department Center 11/30/2024 SHWETA SILVA MP Family History Problem Relation Age of Onset Cancer Mother Cancer Paternal Grandfather Diabetes Paternal Grandfather Scoliosis Paternal Grandmother Family Status - Relation Status Age at Mother Paternal Grandfather Paternal Grandmother Level of Service:[id number] ID OFFICE/OUTPATIENT NEW MODERATE MDM 45 MINUTES Reason for Visit and Comments: Pain [136] [facility] 36on 11-16-2024 36 Patient called to schedule a new patient appointment with our office. Patient wants to be seen for: 11-16-24 Patient had X ray done at [place] Patient had 2019 done on unsure by milagros Patient saw na for this issues. They were not referred to us from this provider. This appointment is not a second opionion This appointment IS NOT related to a work related injury [facility] BI MAMMOGRAM SCREENING TOMOS YNTHESIS BILATERALon 10-27-2024 [...] Amphetamines Ql (U) Amphetamines screen Negativ e [facility] Amphetamines Ql (U) Negative Negative [facility] Barbiturates [Presence] in U rine by Screen methodOrdered By: Jane Waller on 05-20-2024 Barbiturates Screen Ql (U) Negative Negative [facility] Barbiturates Screen Ql (U) Barbiturates [Presence] in Urine by Screen method Negative [facility] Benzodiazepines Screen Ql (U )Ordered By: Jane Waller on 05-20-2024 Benzodiazepines Ql (U) Negative Negative [facility] Benzodiazepines Ql (U) Benzodiazepines [Presence] in Urine by Screen method Negative [facility] Benzoylecgonine [Presence] i n Urine by Screen methodOrdered By: Jane Waller on 05-20-2024 Benzoylecgonine Screen Ql (U) Negative Negative [facility] Benzoylecgonine Screen Ql (U) Benzoylecgonine [Presence] in Urine by Screen method Negative [facility] Cannabinoids [Presence] in U rine by Screen methodOrdered By: Jane Waller on 05-20-2024 Cannabinoids Screen Ql (U) Negative Negative [facility] Comment on above: These are unconfirme d results and should not be used for legal purposes. Drug Cut-Off Concentration: AMPH 1000 ng/mL KEITH 200 ng/mL LARS 200 ng/mL COCM 300 ng/mL OP 300 ng/mL PCP 25 ng/mL THC 20 ng/mL Cannabinoids Screen Ql (U) Cannabinoids [Presence] in Urine by Screen method Negative [facility] Comment on above: These are unconfirme d results and should not be used for legal purposes. Drug Cut-Off Concentration: AMPH 1000 ng/mL KEITH 200 ng/mL LARS 200 ng/mL COCM 300 ng/mL OP 300 ng/mL PCP 25 ng/mL THC 20 ng/mL Drug Screen,Urineon 05-20-20 24 Amphetamine Screen,Urine Negative Normal Negative [facility] Comment on above: Performed By: #### U RDS #### [address] Barbiturate Screen,Urine Negative Normal Negative [facility] [facility] Comment on above: Performed By: #### U RDS #### [address] Benzodiazepines Screen,Urine Negative Normal Negative [facility] Comment on above: Performed By: #### U RDS #### [address] Cannabinoid Screen,Urine Negative Normal Negative [facility] Comment on above: Result Comment: Thes e are unconfirmed results and should not be used for legal purposes. Drug Cut-Off Concentration: AMPH 1000 ng/mL KEITH 200 ng/mL LARS 200 ng/mL COCM 300 ng/mL OP 300 ng/mL PCP 25 ng/mL THC 20 ng/mL PERFORMED BY: [place] [address] PATHOLOGIST STAFFING SPECIALIST YENNIFER BROWN M.D. Performed By: #### U RDS #### [address] Cocaine Screen,Urine Negative Normal Negative [facility] Comment on above: Performed By: #### U RDS #### [address] Opiate Screen,Urine Negative Normal Negative [facility] Comment on above: Performed By: #### U RDS #### [address] Phencyclidine Screen,Urine Negative Normal Negative [facility] Comment on above: Performed By: #### U RDS #### [address] Opiates [Presence] in Urine by Screen methodOrdered By: Jane Waller on 05-20-2024 Opiates Screen Ql (U) Negative Negative [facility] Opiates Screen Ql (U) Opiates [Presence] in Urine by Screen method Negative [facility] Phencyclidine Screen Ql (U)O rdered By: Jane Waller on 05-20-2024 Phencyclidine Ql (U) Negative Negative [facility] Phencyclidine Ql (U) Phencyclidine [Presence] in Urine by Screen method Negative [facility] Laboratory - Chemistry and C hemistry - challengeon 01-09-2024 Bilirubin Ql (U) Negative [facility] Glucose (U) [Mass/Vol] Negative [facility] Ketones Ql (U) Negative [facility] pH (U) 6.0 [pH] [facility] Specific gravity (U) [Rel density] 1.020 [facility] Urobilinogen (U) [Mass/Vol] 0.2 mg/dL [facility] Laboratory - Specimen inform ationon 01-09-2024 Appearance (U) clear [facility] Color (U) yellow [facility] Laboratory - Urinalysison Leukocyte esterase Test strip Ql (U) Negative [facility] Nitrite Ql (U) Negative [facility] Protein Ql (U) Negative [facility] No Panel Informationon 01-08 Urine Occult Blood Negative [facility] Complete Blood Count with Au to Diffon 09-18-2021 Basophils (Bld) [#/Vol] 0.09 10*3/uL Normal 0.00-0.20 [facility] [employer] [facility] Comment on above: Performed By: #### C BCAD, CMP, LIPD, FE Prof #### [facility] [address], [place] [id number] Basophils/100 WBC (Bld) 1.2 % Normal [facility] [employer] Comment on above: Performed By: #### C BCAD, CMP, LIPD, FE Prof #### [facility] [address], [place] [id number] Eosinophils (Bld) [#/Vol] 0.18 10*3/uL Normal 0.02-0.50 [facility] [employer] Comment on above: Performed By: #### C BCAD, CMP, LIPD, FE Prof #### [facility] [address], [place] [id number] Eosinophils/100 WBC (Bld) 2.5 % Normal [facility] Specialist Comment on above: Performed By: #### C BCAD, CMP, LIPD, FE Prof #### [facility] [address], [place] [id number] Erythrocyte distribution width (RBC) [Ratio] 12.4 % Normal 11.0-15.0 [facility] [employer] Comment on above: Performed By: #### C BCAD, CMP, LIPD, FE Prof #### [facility] [address], [place] [id number] Hematocrit (Bld) [Volume fraction] 41.2 % Normal 35.0-47.0 [facility] Specialist Comment on above: Performed By: #### C BCAD, CMP, LIPD, FE Prof #### [facility] [address], [place] [id number] Hemoglobin (Bld) [Mass/Vol] 14.2 g/dL Normal 11.6-15.5 [facility] [employer] Comment on above: Performed By: #### C BCAD, CMP, LIPD, FE Prof #### [facility] [address], [place] [id number] Lymphocytes (Bld) [#/Vol] 2.3 10*3/uL Normal 0.9-3.9 [facility] [employer] Comment on above: Performed By: #### C BCAD, CMP, LIPD, FE Prof #### [facility] [address], [place] [id number] Lymphocytes/100 WBC (Bld) 31.5 % Normal [facility] [employer] Comment on above: Performed By: #### C BCAD, CMP, LIPD, FE Prof #### [facility] [address], [place] [id number] MCH (RBC) [Entitic mass] 33.4 pg High 27.0-33.0 [facility] Specialist Comment on above: Performed By: #### C BCAD, CMP, LIPD, FE Prof #### [facility] [address], [place] [id number] MCHC (RBC) [Mass/Vol] 34.5 g/dL Normal 32.0-36.0 [facility] [employer] Comment on above: Performed By: #### C BCAD, CMP, LIPD, FE Prof #### [facility] [address], [place] [id number] MCV (RBC) [Entitic vol] 97 fL Normal 80-100 [facility] Specialist Comment on above: Performed By: #### C BCAD, CMP, LIPD, FE Prof #### [facility] [address], [place] [id number] Monocytes (Bld) [#/Vol] 0.5 10*3/uL Normal 0.2-0.9 [facility] Specialist Comment on above: Performed By: #### C BCAD, CMP, LIPD, FE Prof #### [facility] [address], [place] [id number] Monocytes/100 WBC (Bld) 6.2 % Normal [facility] Specialist Comment on above: Performed By: #### C BCAD, CMP, LIPD, FE Prof #### [facility] [address], [place] [id number] Neutrophils (Bld) [#/Vol] 4.2 10*3/uL Normal 1.5-7.8 [facility] Specialist Comment on above: Performed By: #### C BCAD, CMP, LIPD, FE Prof #### [facility] [address], [place] [id number] Neutrophils/100 WBC (Bld) 58.5 % Normal [facility] Specialist Comment on above: Performed By: #### C BCAD, CMP, LIPD, FE Prof #### [facility] [address], [place] [id number] Platelet mean volume (Bld) [Entitic vol] 8.10 fL Normal 7.50-12.50 [facility] Specialist Comment on above: Performed By: #### C BCAD, CMP, LIPD, FE Prof #### [facility] [address], [place] [id number] Platelets (Bld) [#/Vol] 389 10*3/uL Normal 140-400 [facility] Specialist Comment on above: Performed By: #### C BCAD, CMP, LIPD, FE Prof #### [facility] [address] [facility] [place] [id number] RBC (Bld) [#/Vol] 4.25 10*6/uL Normal 3.90-5.20 [facility] [employer] Agent Comment on above: Performed By: #### C BCAD, CMP, LIPD, FE Prof #### [facility] [address], [place] [id number] RDW-SD 44.2 fL Normal 37.0-50.0 [facility] Specialist Comment on above: Performed By: #### C BCAD, CMP, LIPD, FE Prof #### [facility] [address], [place] [id number] WBC (Bld) [#/Vol] 7.2 10*3/uL Normal 3.8-11.0 [facility] [employer] Comment on above: Performed By: #### C BCAD, CMP, LIPD, FE Prof #### [facility] [address], [place] [id number] Comprehensive Metabolic Pane [facility] 09-18-2021 Albumin [Mass/Vol] 4.5 g/dL Normal 3.6-5.1 [facility] [employer] Comment on above: Performed By: #### C BCAD, CMP, LIPD, FE Prof #### [facility] [address], [place] [id number] Albumin/Globulin [Mass ratio] 2.1 {ratio} Normal 1.0-2.5 [facility] Specialist Comment on above: Performed By: #### C BCAD, CMP, LIPD, FE Prof #### [facility] [address], [place] [id number] ALP [Catalytic activity/Vol] 64 U/L Normal 35-119 [facility] Specialist Comment on above: Performed By: #### C BCAD, CMP, LIPD, FE Prof #### [facility] [address], [place] [id number] ALT [Catalytic activity/Vol] 52 U/L High 6-33 [facility] Specialist Comment on above: Result Comment: 08/02 Female reference range changed. Performed By: #### C BCAD, CMP, LIPD, FE Prof #### [facility] [address], [place] [id number] Anion gap [Moles/Vol] 15 mmol/L Normal 12-20 [facility] Comment on above: Result Comment: Effjuan ctive 09/07/2019 reference range changed. Performed By: #### C BCAD, CMP, LIPD, FE Prof #### [facility] [address], [place] [id number] AST [Catalytic activity/Vol] 29 U/L Normal 9-34 [facility] Comment on above: Performed By: #### C BCAD, CMP, LIPD, FE Prof #### [facility] [address], [place] [id number] Bilirubin [Mass/Vol] 0.57 mg/dL Normal 0.30-1.20 [facility] Comment on above: Performed By: #### C BCAD, CMP, LIPD, FE Prof #### [facility] [address], [place] [id number] BUN/CREA 18 Ratio Normal 6-22 [facility] Comment on above: Performed By: #### C BCAD, CMP, LIPD, FE Prof #### [facility] [address], [place] [id number] Calcium [Mass/Vol] 9.5 mg/dL Normal 8.6-10.2 [facility] Comment on above: Performed By: #### C BCAD, CMP, LIPD, FE Prof #### [facility] [address], [place] [id number] Chloride [Moles/Vol] 103 mmol/L Normal 98-107 [facility] Comment on above: Performed By: #### C BCAD, CMP, LIPD, FE Prof #### [facility] [address], [place] [id number] CO2 [Moles/Vol] 27 mmol/L Normal 20-31 [facility] Comment on above: Performed By: #### C BCAD, CMP, LIPD, FE Prof #### [facility] [address], [place] [id number] Creatinine [Mass/Vol] 0.7 mg/dL Normal 0.6-1.4 [facility] Comment on above: Performed By: #### C BCAD, CMP, LIPD, FE Prof #### [facility] [address], [place] [id number] eGFRAA 112 mL/min/1.73m2 Normal >60 [facility] Specialist Comment on above: Performed By: #### C BCAD, CMP, LIPD, FE Prof #### [facility] [address], [place] [id number] eGFRNAA 92 mL/min/1.73m2 Normal >60 [facility] Specialist Comment on above: Performed By: #### C BCAD, CMP, LIPD, FE Prof #### [facility] [address], [place] [id number] Globulin (S) [Mass/Vol] 2.1 g/dL Normal 1.9-3.7 [facility] [employer] Agent Comment on above: Performed By: #### C BCAD, CMP, LIPD, FE Prof #### [facility] [address], [place] [id number] Glucose [Mass/Vol] 123 mg/dL High 65-99 [facility] [employer] Agent Comment on above: Result Comment: For FASTING Glucose --- ADA reference ranges: Normal 65-99 mg/dl Prediabetes 100-125 Diabetes >/= 126 Performed By: #### C BCAD, CMP, LIPD, FE Prof #### [facility] [address], [place] [id number] Potassium [Moles/Vol] 3.7 mmol/L Normal 3.5-5.5 [facility] [employer] Agent Comment on above: Performed By: #### C BCAD, CMP, LIPD, FE Prof #### [facility] [address], [place] [id number] Protein [Mass/Vol] 6.6 g/dL Normal 6.1-8.1 [facility] [employer] Agent Comment on above: Performed By: #### C BCAD, CMP, LIPD, FE Prof #### [facility] [address], [place] [id number] Sodium [Moles/Vol] 141 mmol/L Normal 135-146 [facility] [employer] Agent Comment on above: Performed By: #### C BCAD, CMP, LIPD, FE Prof #### [facility] [address], [place] [id number] Urea nitrogen [Mass/Vol] 12 mg/dL Normal 7-25 [facility] Agent Comment on above: Performed By: #### C BCAD, CMP, LIPD, FE Prof #### [facility] [address], [place] [id number] Iron Profileon 09-18-2021 %FESAT 38 % Normal 11-50 [facility] Specialist Comment on above: Performed By: #### C BCAD, CMP, LIPD, FE Prof #### [facility] [address], [place] [id number] FE 113 ug/dL Normal 40-190 [facility] Agent Comment on above: Result Comment: Refe rence range change 07/19/2017. Prior reference range F 37-145 ug/dL, M 59-158 ug/dL. Performed By: #### C BCAD, CMP, LIPD, FE Prof #### [facility] [address], [place] [id number] TIBC 297 ug/dL Normal 250-450 [facility] Specialist Comment on above: Performed By: #### C BCAD, CMP, LIPD, FE Prof #### [facility] [address], [place] [id number] UIBC 184 ug/dL Normal 112-347 [facility] Specialist Comment on above: Performed By: #### C BCAD, CMP, LIPD, FE Prof #### [facility] [address], [place] [id number] Lipid Panelon 09-18-2021 Cholesterol [Mass/Vol] 238 mg/dL High 125-200 [facility] [employer] Agent Comment on above: Result Comment: Low risk < 200mg/dL Borderline risk 201-239 mg/dl High risk > or equal to 240 Performed By: #### C BCAD, CMP, LIPD, FE Prof #### [facility] [address], [place] [id number] Cholesterol in HDL [Mass/Vol] 42 mg/dL Normal >40 [facility] Agent Comment on above: Result Comment: High Cardiovascular Risk HDL <40 mg/dL Low Cardiovascular Risk HDL > or equal to 60 mg/dl Performed By: #### C BCAD, CMP, LIPD, FE Prof #### [facility] [address] [place], [place] [id number] Cholesterol in LDL [Mass/Vol] 131 mg/dL Normal [facility] Specialist Comment on above: Result Comment: LDL ATP III CLASSIFICATION LDL less than 100 mg/dl Optimal LDL 100-129 mg/dl Near or above optimal LDL 130-159 Borderline high LDL 160-189 High LDL greater than 189 mg/dl Very High Performed By: #### C BCAD, CMP, LIPD, FE Prof #### [facility] [address] [place], [place] [id number] Cholesterol in VLDL [Mass/Vol] 65 mg/dL Normal [facility] Agent Comment on above: Performed By: #### C BCAJavier, CMP, LIPD, FE Prof #### [facility] [address] [place], [place] [id number] Cholesterol.total/Ch olesterol in HDL [Mass ratio] 6 {ratio} Normal [facility] Specialist Comment on above: Performed By: #### C BCAD, CMP, LIPD, FE Prof #### [facility] [address] [place], [place] [id number] Triglyceride [Mass/Vol] 326 mg/dL High 30-150 [facility] [employer] Agent Comment on above: Result Comment: TRIG ATPIII CLASSIFICATIONS TRIG less than 150 mg/dl Normal TRIG 150-199 mg/dl Borderline High TRIG 200-500 mg/dl High TRIG greather than 500 mg/dl Very High Performed By: #### C BCAJavier, CMP, LIPD, FE Prof #### [facility] [address], [place] [id number] KNEE RIGHT 3 [facility] 0 KNEE RIGHT 3 S [facility] Department of Radiology [address] [place] [address] Patient Name: LINDA ALVARADO DOB: 1975 Sex: F Age: Race: White Pt. Location: Patient Status: O Ordered Date: 03/31/2020 1:55:00 PM Completed Date: 03/31/2020 01:59 PM Requesting Provider: JONAS BISHOP Attending Provider: JONAS BISHOP Report Copy To: Signs & Symptoms: S82.101D Unsp fx upper end of r tibia, subs for clos fx w routn heal I10 History: Denise Comments: Weight Bearing?: Y Exam: KNEE RIGHT 3 [facility] KNEE RIGHT 3 [facility] 03/31/2020 1:59 PM CLINICAL INDICATIONS: S82.101D [...] fracture Electronically signed: Jonas Robbins. Transcribed by: [email or web address], User Resident: Electronically Signed by: JONAS ROBBINS @ 03/31/2020 02:03 PM Normal [facility] Comment on above: Order Comment: Weigh t Bearing?: Y KNEE RIGHT 3 [facility] 0 KNEE RIGHT 3 [facility] Department of Radiology [address] [place] [id number] Patient Name: LINDA ALVARADO : 1975 [...] alignment Electronically signed: Ying Enriquez. Transcribed by: [email or web address], User Resident: Electronically Signed by: YING ENRIQUEZ @ 10/12/2019 12:10 PM Normal [facility] Comment on above: Order Comment: , , = ========= , Ordering Provider - JONAS BISHOP PA-C , KNEE RIGHT 1 OR 2 VWSon 09-02 KNEE RIGHT 1 OR 2 VWS [facility] Department of Radiology [address] [place] [id number] Patient Name: LINDA ALVARADO : 1975 Sex: F Age: Race: White Pt. Location: Patient Status: Ordered Date: 09/14/2019 10:40:00 AM Completed Date: 09/14/2019 11:01 AM Requesting Provider: JONAS BISHOP Attending Provider: Report Copy To: Signs & Symptoms: S82.101D Unsp fx upper end of r tibia, subs for clos fx w routn heal I10 History: [place] Comments: , , , Ordering Provider - [...] healing Electronically signed: Stephanie Miller. Transcribed by: [email or web address], User Resident: Electronically Signed by: STEPHANIE MILLER @ 09/14/2019 05:22 PM Normal [facility] Comment on above: Order Comment: , , = ========= , Ordering Provider - JONAS BISHOP PA-C , KNEE RIGHT 1 OR 2 [facility] 08-02 KNEE RIGHT 1 OR 2 S [facility] Department of Radiology [address] [place] [id number] Patient Name: LINDA ALVARADO : 1975 [...] effusion Electronically signed by:Stephanie Miller. Transcribed by: [email or web address], User Resident: Electronically Signed by: STEPHANIE MILLER @ 08/17/2019 03:52 PM Normal [facility] Comment on above: Order Comment: , Katherine ws (X-RAY, KNEE): AP, Lateral , Views (X- RAY, KNEE): AP, Lateral , , , Ordering Provider - JONAS BISHOP PA-C , VITAMIN D 25-HYDROXYon 08-17 VITAMIN D 25-OH 35.4 ng/mL Normal 30.0-80.0 [facility] Comment on above: Result Comment: >80. 0 Toxicity possible Performed By: #### 5 6101, [id number] #### [address] [address], [facility] KNEE RIGHT 1 OR 2 VWSon 07-03 KNEE RIGHT 1 OR 2 VWS [facility] Department of Radiology [address] [place] [id number] Patient Name: LINDA ALVARADO : 1975 [...] healing Electronically signed by:Stephanie Miller. Transcribed by: [email or web address], User Resident: Electronically Signed by: STEPHANIE MILLER @ 07/20/2019 05:04 PM Normal [facility] Comment on above: Order Comment: , , = ========= , Ordering Provider - SHWETA VIDAL PA-C , BASIC METABOLIC PANELon 11-0 Calcium [Mass/Vol] 8.8 mg/dL Normal 8.6-10.3 [facility] Comment on above: Order Comment: No: D o not add to previous draw Performed By: #### 5 610, 71575 #### [facility] [address] [place] [address], [place] Chloride [Moles/Vol] 99 mmol/L Normal 98-107 [facility] Comment on above: Order Comment: No: D o not add to previous draw Performed By: #### 5 610, 06946 #### [facility] [address] [place] [address], [place] CO2 [Moles/Vol] 27 mmol/L Normal 21-31 [facility] Comment on above: Order Comment: No: D o not add to previous draw Performed By: #### 5 610, 57641 #### [facility] [address] [place] [address], [place] Creatinine [Mass/Vol] 0.81 mg/dL Normal 0.60-1.20 [facility] Comment on above: Order Comment: No: D o not add to previous draw Performed By: #### 5 610, 57229 #### [facility] [address] [place] [address], [place] GFR/1.73 sq M predicted among blacks MDRD (S/P/Bld) [Vol rate/Area] mL/min/{1.73_m2} Normal >60 [facility] Comment on above: Order Comment: No: D o not add to previous draw Performed By: #### 5 610, 76736 #### [facility] [address] [place] [address], [place] GFR/1.73 sq M predicted among non-blacks MDRD (S/P/Bld) [Vol rate/Area] mL/min/{1.73_m2} Normal >60 [facility] Comment on above: Order Comment: No: D o not add to previous draw Performed By: #### 5 610, 50981 #### [facility] [address] [place] [address], [place] Glucose [Mass/Vol] 105 mg/dL High 70-100 [facility] Comment on above: Order Comment: No: D o not add to previous draw Performed By: #### 5 610, 38136 #### [facility] [address] [place] [address], [place] Potassium [Moles/Vol] 3.8 mmol/L Normal 3.5-5.1 [facility] Comment on above: Order Comment: No: D o not add to previous draw Performed By: #### 5 610, 01119 #### [facility] [address] [place] [address], [place] Sodium [Moles/Vol] 133 mmol/L Low 136-145 [facility] Comment on above: Order Comment: No: D o not add to previous draw Performed By: #### 5 610, 16577 #### [facility] [address] [place] [address], [place] Urea nitrogen [Mass/Vol] 10 mg/dL Normal 7-25 [facility] Comment on above: Order Comment: No: D o not add to previous draw Performed By: #### 5 610, 29084 #### [facility] [address] [place] [address], [place] CBC COMPLETE BLOOD COUNTon 09-07-2018 Erythrocyte distribution width (RBC) [Ratio] 13.3 % Normal 11.5-15.0 [facility] Comment on above: Order Comment: No: D o not add to previous draw Performed By: #### 5 610, 97876 #### [facility] [address] [place] [address], [place] Hematocrit (Bld) [Volume fraction] 36.1 % Normal 36.0-45.0 [facility] Comment on above: Order Comment: No: D o not add to previous draw Performed By: #### 5 6100, 06411 #### [facility] [address] [place] [address], [place] Hemoglobin (Bld) [Mass/Vol] 11.6 g/dL Low 12.0-15.0 [facility] Comment on above: Order Comment: No: D o not add to previous draw Performed By: #### 5 6100, 25396 #### [facility] [address] [place] [address], [place] MCH (RBC) [Entitic mass] 31.2 pg Normal 27.0-33.0 [facility] Comment on above: Order Comment: No: D o not add to previous draw Performed By: #### 5 610, 82358 #### [facility] [address] [place] [address], [place] MCHC (RBC) [Mass/Vol] 32.1 g/dL Normal 32.0-35.0 [facility] Comment on above: Order Comment: No: D o not add to previous draw Performed By: #### 5 610, 48780 #### [facility] [address] [place] [address], [place] MCV (RBC) [Entitic vol] 97.0 fL Normal 82.0-98.0 [facility] Comment on above: Order Comment: No: D o not add to previous draw Performed By: #### 5 6101, 94696 #### [facility] [address] [place] [address], [facility] Nucleated RBC/100 WBC (Bld) [Ratio] 0 % Normal 0-0 [facility] Comment on above: Order Comment: No: D o not add to previous draw Performed By: #### 5 6101, 49543 #### [facility] [address] [place] [address], [facility] PLAT CNT 447 10*3/uL High 150-400 [facility] Comment on above: Order Comment: No: D o not add to previous draw Performed By: #### 5 6101, 96194 #### [facility] [address] [place] [address], [facility] RBC (Bld) [#/Vol] 3.72 10*6/uL Low 3.80-5.[address] [facility] Comment on above: Order Comment: No: D o not add to previous draw Performed By: #### 5 6101, 29909 #### [facility] [address] [place] [address], [facility] WBC (Bld) [#/Vol] 16.46 10*3/uL High 4.00-10.60 [facility] Comment on above: Order Comment: No: D o not add to previous draw Performed By: #### 5 6101, 38294 #### [facility] [address] [facility] [address] *MRSA/MSSA DNA NASALon 07-07 *MRSA/MSSA DNA NASAL Clinical Report: (D ) Specimen: NASAL SWAB Collected: 07/07/2019 08:00 Status: Final Last Updated: 07/07/2019 14:28 MSSA DNA (Final) Methicillin Susceptible Staphylococcus aureus DNA Detected MRSA DNA (Final) Negative Normal [facility] Comment on above: Performed By: #### 5 6101, 52666 #### [facility] [address] APTTon 07-07-2019 aPTT Coag (Bld) [Time] 38.8 s High 25.0-35.0 [facility] Comment on above: Result Comment: [...] THIS PURPOSE. Performed By: #### 5 6101, 24096 #### [facility] [address] CBC W/DIFFon 07-07-2019 ABS BASOPHILS 0.1 10*3/uL Normal 0.0-0.2 The [facility] Comment on above: Performed By: #### 5 0103 #### [facility] [address] ABS IMM GRANS 0.0 10*3/uL Normal 0.0-0.2 The [facility] Comment on above: Performed By: #### 5 0103 #### [facility] [address] ABS NEUTROPHILS 4.9 10*3/uL Normal 1.6-7.6 The [facility] Comment on above: Performed By: #### 5 0103 #### [facility] [address] Basophils/100 WBC (Bld) 1.0 % Normal 0.0-1.0 The [facility] Comment on above: Performed By: #### 5 0103 #### [facility] [address] Eosinophils (Bld) [#/Vol] 0.2 10*3/uL Normal 0.0-0.5 The [facility] Comment on above: Performed By: #### 5 0103 #### [facility] [address] [place] [address], [facility] Eosinophils/100 WBC (Bld) 3.0 % Normal 0.0-6.0 The [facility] Comment on above: Performed By: #### 5 0103 #### [facility] [address] Erythrocyte distribution width (RBC) [Ratio] 13.3 % Normal 11.5-15.0 The [facility] Comment on above: Performed By: #### 5 0103 #### [facility] [address] Hematocrit (Bld) [Volume fraction] 36.9 % Normal 36.0-45.0 The [facility] Comment on above: Performed By: #### 5 0103 #### [facility] [address] [facility] [address] Hemoglobin (Bld) [Mass/Vol] 12.2 g/dL Normal 12.0-15.0 The [facility] Comment on above: Performed By: #### 5 0103 #### [facility] [address] [facility] [place] [address], [facility] IMMATURE GRANS 0.5 % Normal 0.0-1.0 [facility] Comment on above: Performed By: #### 5 0103 #### [facility] [address] [place] [address], [facility] Lymphocytes (Bld) [#/Vol] 2.0 10*3/uL Normal 1.2-4.0 The [facility] Comment on above: Performed By: #### 5 0103 #### [facility] [address] [facility] [place] [address], [facility] Lymphocytes/100 WBC (Bld) 25.3 % Normal 20.0-45.0 The [facility] Comment on above: Performed By: #### 5 0103 #### [facility] [address] [facility] [place] [address], [facility] MCH (RBC) [Entitic mass] 31.4 pg Normal 27.0-33.0 The [facility] Comment on above: Performed By: #### 5 0103 #### [facility] [address] [facility] [address] MCHC (RBC) [Mass/Vol] 33.1 g/dL Normal 32.0-35.0 The [facility] Comment on above: Performed By: #### 5 0103 #### [facility] [address] [facility] [place] [address], [facility] MCV (RBC) [Entitic vol] 95.1 fL Normal 82.0-98.0 The [facility] Comment on above: Performed By: #### 5 0103 #### [facility] [address] [facility] [place] [address], [facility] Monocytes (Bld) [#/Vol] 0.6 10*3/uL Normal 0.1-1.0 The [facility] Comment on above: Performed By: #### 5 0103 #### [facility] [address] [facility] [place] [address], [facility] MONOS 7.3 % Normal 5.0-12.0 [facility] Comment on above: Performed By: #### 5 0103 #### [facility] [address] [facility] [place] [address], [facility] Neutrophils/100 WBC (Bld) 62.9 % Normal 40.0-72.0 [facility] Comment on above: Performed By: #### 5 3 #### [facility] [address] [place] [address], [facility] Nucleated RBC/100 WBC (Bld) [Ratio] 0 % Normal 0-0 [facility] Comment on above: Performed By: #### 5 0103 #### [facility] [address] [place] [address], [facility] PLAT CNT 392 10*3/uL Normal 150-400 [facility] Comment on above: Performed By: #### 5 0103 #### [facility] [address] [facility] [place] [address], [facility] RBC (Bld) [#/Vol] 3.88 10*6/uL Normal 3.80-5.00 [facility] Comment on above: Performed By: #### 5 0103 #### [facility] [address] [facility] [place] [address], [facility] WBC (Bld) [#/Vol] 7.72 10*3/uL Normal 4.00-10.[address] [facility] Comment on above: Performed By: #### 5 0103 #### [facility] [address] [facility]. [address] COMP METABOLIC PANELon 07-07 Albumin [Mass/Vol] 3.9 g/dL Normal 3.5-5.7 [facility] Comment on above: Performed By: #### 0 0121 #### [facility] [address] [facility] [place] [address], [facility] ALKALINE PHOSPH 58 IU/L Normal 34-104 [facility] Comment on above: Performed By: #### 0 0121 #### [facility] [address] [facility]. [address] ALT [Catalytic activity/Vol] 55 U/L High 7-52 The [facility] Comment on above: Performed By: #### 0 0121 #### [facility] [address] AST [Catalytic activity/Vol] 39 U/L Normal 13-39 [facility] Comment on above: Performed By: #### 0 0121 #### [facility] [address] [place] [address], [place] Bilirubin [Mass/Vol] 0.4 mg/dL Normal 0.3-1.0 [facility] Comment on above: Performed By: #### 0 0121 #### [facility] [address] [place] [address], [place] Calcium [Mass/Vol] 9.0 mg/dL Normal 8.6-10.3 [facility] Comment on above: Performed By: #### 0 0121 #### [facility] [address] [place] [address], [place] Chloride [Moles/Vol] 104 mmol/L Normal 98-107 [facility] Comment on above: Performed By: #### 0 0121 #### [facility] [address] [place] [address], [place] CO2 [Moles/Vol] 25 mmol/L Normal 21-31 [facility] Comment on above: Performed By: #### 0 0121 #### [facility] [address] [place] [address], [place] Creatinine [Mass/Vol] 0.81 mg/dL Normal 0.60-1.20 [facility] Comment on above: Performed By: #### 0 0121 #### [facility] [address] [place] [address], [place] GFR/1.73 sq M predicted among blacks MDRD (S/P/Bld) [Vol rate/Area] mL/min/{1.73_m2} Normal >60 [facility] Comment on above: Performed By: #### 0 0121 #### [facility] [address] [place] [address], [place] GFR/1.73 sq M predicted among non-blacks MDRD (S/P/Bld) [Vol rate/Area] mL/min/{1.73_m2} Normal >60 The [facility] Comment on above: Performed By: #### 0 0121 #### [facility] [address] [facility] [place] [address], [facility] Glucose [Mass/Vol] 112 mg/dL High 70-100 The [facility] Comment on above: Performed By: #### 0 0121 #### [facility] [address] [facility] [place] [address], [facility] Potassium [Moles/Vol] 3.5 mmol/L Normal 3.5-5.1 The [facility] Comment on above: Performed By: #### 0 0121 #### [facility] [address] [facility] [place] [address], [facility] Protein [Mass/Vol] 6.9 g/dL Normal 6.0-8.3 [facility] Comment on above: Performed By: #### 0 0121 #### [facility] [address] [facility] [place] [address], [facility] Sodium [Moles/Vol] 134 mmol/L Low 136-145 [facility] Comment on above: Performed By: #### 0 0121 #### [facility] [address] [facility] [place] [address], [facility] Urea nitrogen [Mass/Vol] 10 mg/dL Normal 7-25 The [facility] Comment on above: Performed By: #### 0 0121 #### [facility] [address] [facility] [place] [address], [facility] CT 3D LOWER EXTREMITY WO CON TRAST RIGHTon 07-07-2019 CT 3D LOWER EXTREMITY WO CONTRAST RIGHT [facility] Department of Radiology [address] [place] [id number] Patient Name: LINDA ALVARADO : 1975 Sex: F Age: Race: White Pt. Location: [facility] Patient Status: I Ordered Date: 07/07/2019 [...] on 07/07/2019 2:50 AM EST. I, Ying Zeiss, have reviewed the images and report and concur with these findings. Electronically signed by:Ying Enriquez. Transcribed by: [email or web address], User Resident: JANET HARRINGTON Electronically Signed by: YING ENRIQUEZ @ 07/07/2019 07:01 AM I personally read this/these film(s) with this resident Normal The [facility] Comment on above: Order Comment: R/O F ractures, right leg from mid femur down to ankle KNEE RIGHT 1 OR 2 VWSon KNEE RIGHT 1 OR 2 S [facility] Department of Radiology [address] [place] [id number] Patient Name: LINDA ALVARADO : 1975 Sex: F Age: Race: White Pt. Location: [id number] Patient Status: I Ordered Date: 07/07/2019 7:20:00 AM Completed Date: 07/07/2019 01:35 PM Requesting Provider: IAN KU Attending Provider: IAN KU Report Copy To: Signs & Symptoms: orif tibial plateau right, possible ex-fix History: orif tibial plateau right, possible ex-fix Comments: orif tibial plateau right, possible ex-fix Exam: KNEE RIGHT 1 OR 2 [facility] KNEE RIGHT 1 OR 2 VWS 07/07/2019 [...] Documentation Electronically signed by:Ying Enriquez. Transcribed by: [email or web address], User Resident: Electronically Signed by: YING ENRIQUEZ @ 07/07/2019 01:40 PM Normal The [facility] Comment on above: Order Comment: orif tibial plateau right, possible ex-fix Operative Reporton 9 Operative Report MR#: [id number] I [facility] Pt. Name: Linda Alvarado Room #: [id number] Discharge Date: Birthdate: 1975 OPERATIVE REPORT DATE [...] Skyler/Maye Cruz MD Date Trans: 07/07/2019 01:02 Skyler/kelin [id number] cc: Elver Mendenhall M.D. 3 [facility] [address] Leslye Doss M.D. Timmy Mendoza...do Not Send [address] [facility] [address] Normal [facility] POC GLUCOSE LABon 07-07-2019 Glucose [Mass/Vol] 92 mg/dL Normal 70-100 [facility] Comment on above: Performed By: #### 8 5499 #### [facility] [address] [place] [address], [facility] POC URINE PREGNANCYon 2018 Beta HCG ( test) Ql (U) Negative Normal NEGATIVE [facility] Comment on above: Result Comment: Perf ormed in Emergency Department. Performed By: #### 8 4140 #### [facility] [address] [place] [address], [facility] PROTHROMBIN TIMEon 9 INR Coag (PPP) [Relative time] 1.12 {INR} Normal 0.91-1.16 [facility] Comment on above: Result Comment: [...] CHEST 1995;108:[id number]-246S. Performed By: #### 5 6101, 73667 #### [facility] [address] [place] [address], [facility] PT Coag (PPP) [Time] 14.5 s Normal 12.3-14.8 [facility] Comment on above: Result Comment: ALL RESULTS MUST BE INTERPRETED WITH RESPECT TO BLOOD DRAWING ARTIFACT OR DILUTION ERROR OF ANTICOAGULANT AT THE TIME OF SAMPLING. Performed By: #### 5 6101, 73436 #### [facility] [address] [place] [address], [facility] RBC'S 2 UNITSon 07-07-2019 CROSSMATCH INTERP 1 COMP Normal [facility] Comment on above: Performed By: #### 8 6002 #### [facility] [address] [place] [address], [place] CROSSMATCH INTERP 2 COMP Normal [facility] Comment on above: Performed By: #### 8 6002 #### [facility] [address] [place] [address], [facility] PRODUCT CODE 1 E0336 Normal [facility] Comment on above: Performed By: #### 8 6002 #### [facility] [address] [place] [address], [facility] PRODUCT CODE 2 E0678 Normal [facility] Comment on above: Performed By: #### 8 6002 #### [facility] [address] [place] [address], [place] PRODUCT STATUS 1 RE Normal [facility] Comment on above: Result Comment: Resu lt changed by IF on 07/11/2019 09:02. The previous value was XM. Performed By: #### 8 6002 #### [facility] [address] [place] [address], [facility] PRODUCT STATUS 2 RE Normal [facility] Comment on above: Result Comment: Resu lt changed by IF on 07/11/2019 09:02. The previous value was XM. Performed By: #### 8 6002 #### [facility] [address] [place] [address], [place] UNIT ABO 1 O Normal [facility] Comment on above: Performed By: #### 8 6002 #### [facility] [address] [place] [address], [place] UNIT ABO 2 O Normal [facility] Comment on above: Performed By: #### 8 6002 #### [facility] [address] [place] [address], [facility] UNIT ID 1 [id number] Normal The [facility] Comment on above: Performed By: #### 8 6002 #### [facility] [address] [place] [address], [facility] UNIT ID 2 [id number] Normal [facility] Comment on above: Performed By: #### 8 6002 #### [facility] [address] [place] [address], [facility] UNIT RH 1 Negative Normal [facility] Comment on above: Performed By: #### 8 6002 #### [facility] [address] [place] [address], [facility] UNIT RH 2 Negative Normal [facility] Comment on above: Performed By: #### 8 6002 #### [facility] [address] [place] [address], [facility] TYPE AND SCREENon 07-07-2019 ABO INTERPRETATION O Normal [facility] Comment on above: Performed By: #### 6 2586 #### [facility] [address] [place] [address], [facility] RH INTERPRETATION Negative Normal The [facility] Comment on above: Performed By: #### 6 2586 #### [facility] [address] [place] [address], [facility] XR KNEE RT 4V OR >on 019 XR KNEE RT 4V OR > Patient: LINDA ALVARADO Exam Date: 07/06/2019 : 1975 Gender:F Ordering : LISHA HUSAIN Admission #: [id number] Family : Order #: [id number] CLICK HERE TO VIEW EXAM RADIOLOGY REPORT [...] Crowley M.D. on 07/07/2019 at 07:26 Normal [facility] ECHOCARDIO M/2D COMPLETEon 1 ECHOCARDIO M/2D COMPLETE Patient: LINDA ALVARADO Exam Date: 06/08/2019 : 1975 Gender:F Ordering : DR GITA HUSAIN Admission #: [id number] Family : Order #: [id number] CLICK HERE TO VIEW EXAM ECHOCARDIOGRAM REPORT [...] Area(A4C): 17.60 cm2 Left Atrium Systolic Volume(A2C): 73342 mm3 Left Atrium Systolic Volume(A4C): 96369 mm3 Mitral Valve MV E to A [...] 06/09/2019 at 13:09 Normal The [facility] CBC AUTO DIFFon 05-23-2019 Basophils (Bld) [#/Vol] 0.1 103/ul Normal 0.0-0.1 [facility] Comment on above: Performed By: #### L IPA, CMP #### [facility] [address] [place], [place] [address] Jose Gita Basophils/100 WBC (Bld) 1.4 % Normal 0.2-2.0 [facility] Comment on above: Performed By: #### L IPA, CMP #### [facility] [address] [place], [place] [address] Jose Gita Eosinophils (Bld) [#/Vol] 0.3 103/ul Normal 0.0-0.7 [facility] Comment on above: Performed By: #### L IPA, CMP #### [facility] [address] [place], [place] [id number] Jose Gita Eosinophils/100 WBC (Bld) 2.9 % Normal 0.9-7.0 [facility] Comment on above: Performed By: #### L IPA, CMP #### [facility] [address] [place] [address] Jose Gita Erythrocyte distribution width (RBC) [Ratio] 13.5 % Normal 11.0-15.0 [facility] Comment on above: Performed By: #### L IPA, CMP #### [facility] [address] [place] [address] Jose Gita Hematocrit (Bld) [Volume fraction] 37.3 % Normal 36.0-48.0 [facility] Comment on above: Performed By: #### L IPA, CMP #### [facility] [address] [place] [address] Jose Gita Hemoglobin (Bld) [Mass/Vol] 12.5 g/dL Normal 12.0-16.0 [facility] Comment on above: Performed By: #### L IPA, CMP #### [facility] [address] [place] [address] Jose Gita IG # 0.05 10e3/ul Critically high 0.00-0.03 [facility] Comment on above: Performed By: #### L IPA, CMP #### [facility] [address] [place] [address] Jose Gita IG % 0.6 % Critically high 0.0-0.5 [facility] Comment on above: Performed By: #### L IPA, CMP #### [facility] [address] [place] [address] Jose Gita Lymphocytes (Bld) [#/Vol] 2.4 103/ul Normal 1.2-3.8 [facility] Comment on above: Performed By: #### L IPA, CMP #### [facility] [address] [place] [address] Jose Gita Lymphocytes/100 WBC (Bld) 27.2 % Normal 20.5-60.0 [facility] Comment on above: Performed By: #### L IPA, CMP #### [facility] [address] [place], [place] [id number] Jose Gita MANUAL DIFF REQ NO Normal [facility] Comment on above: Performed By: #### L IPA, CMP #### [facility] [address] [place], [place] [id number] Jose Gita MCH (RBC) [Entitic mass] 32.1 pg Normal 26.7-34.0 [facility] Comment on above: Performed By: #### L IPA, CMP #### [facility] [address] [place] [address] Jose Gita MCHC (RBC) [Mass/Vol] 33.5 g/dL Normal 29.9-35.2 [facility] Comment on above: Performed By: #### L IPA, CMP #### [facility] [address] [place] [address] Jose Gita MCV (RBC) [Entitic vol] 95.6 fL Normal 81.0-99.0 [facility] Comment on above: Performed By: #### L IPA, CMP #### [facility] [address] [place] [address] Jose Gita Monocytes (Bld) [#/Vol] 0.8 103/ul Normal 0.3-0.8 [facility] Comment on above: Performed By: #### L IPA, CMP #### [facility] [address] [place] [address] Jose Gita Monocytes/100 WBC (Bld) 8.7 % Normal 1.7-12.0 [facility] Comment on above: Performed By: #### L IPA, CMP #### [facility] [address] [place] [address] Jose Gita Neutrophils (Bld) [#/Vol] 5.2 103/ul Normal 1.4-6.5 [facility] Comment on above: Performed By: #### L IPA, CMP #### [facility] [address] [place] [address] Jose Pelayo Neutrophils/100 WBC (Bld) 59.2 % Normal 43.0-75.0 [facility] Comment on above: Performed By: #### L IPA, CMP #### [facility] [address] [place] [address] Jose Pelayo Platelet mean volume (Bld) [Entitic vol] 8.8 fL Critically low 9.5-13.5 [facility] Comment on above: Performed By: #### L IPA, CMP #### [facility] [address] [place] [address] Jose Pelayo Platelets (Bld) [#/Vol] 401 103/ul Normal 150-450 [facility] Comment on above: Performed By: #### L IPA, CMP #### [facility] [address] [place] [address] Jose Pelayo RBC (Bld) [#/Vol] 3.90 106/ul Critically low 4.20-5.40 [facility] Comment on above: Performed By: #### L IPA, CMP #### [facility] [address] [place], [place] [phone] Jose Pelayo WBC (Bld) [#/Vol] 8.7 103/ul Normal 4.0-11.0 [facility] Comment on above: Performed By: #### L IPA, CMP #### [facility] [address] [place], [place] [address] Jose Pelayo D-DIMERon 05-23-2019 D-DIMER COMMENTS SEE BELOW Normal [facility] Comment on above: Result Comment: [...] #### L IPA, CMP #### [facility] [address] [place], [place] [address] Jose Gita Fibrin D-dimer FEU IA (Bld) [Mass/Vol] 0.19 ug/mL Normal 0.19-0.50 [facility] Comment on above: Performed By: #### L IPA, CMP #### [facility] [address] [place] [id number] Jose Gita PREG HCG QUALon 05-23-2019 , QUAL Negative Normal NEGATIVE [facility] Comment on above: Performed By: #### L IPA, CMP #### [facility] [address] [place] [address] Jose Gita PROF CHEM 8 (BAS METB)on Anion gap [Moles/Vol] 10.9 mmol/L Normal [facility] Comment on above: Performed By: #### L IPA, CMP #### [facility] [address] [place] [address] Jose Gita Calcium [Mass/Vol] 9.3 mg/dL Normal 8.4-10.2 [facility] Comment on above: Performed By: #### L IPA, CMP #### [facility] [address] [place] [address] Jose Gita Chloride [Moles/Vol] 104 mmol/L Normal 98-107 [facility] Comment on above: Performed By: #### L IPA, CMP #### [facility] [address] [place] [address] Jose Gita CO2 [Moles/Vol] 28.7 mmol/L Normal 22.0-30.0 [facility] Comment on above: Performed By: #### L IPA, CMP #### [facility] [address] [place] [address] Jose Gita Creatinine [Mass/Vol] 0.91 mg/dL Normal 0.52-1.04 [facility] Comment on above: Performed By: #### L IPA, CMP #### [facility] [address] [place] [id number] Jose Gita EGFR-AF [place]ING[place]OREAN >60 Normal >=60 [facility] Comment on above: Performed By: #### L IPA, CMP #### [facility] [address] [place] [id number] Jose Gita EGFR-NON AF [place]AN >60 Normal >=60 [facility] Comment on above: Performed By: #### L IPA, CMP #### [facility] [address] [place] [id number] Jose Gita Glucose [Mass/Vol] 97 mg/dL Normal 74-106 [facility] Comment on above: Performed By: #### L IPA, CMP #### [facility] [address] [place] [address] Jose Gita Potassium [Moles/Vol] 3.6 mmol/L Normal 3.4-5.0 [facility] Comment on above: Performed By: #### L IPA, CMP #### [facility] [address] [place] [address] Jose Gita Sodium [Moles/Vol] 140 mmol/L Normal 137-145 [facility] Comment on above: Performed By: #### L IPA, CMP #### [facility] [address] [place] [address] Jose Gita Urea nitrogen [Mass/Vol] 10.0 mg/dL Normal 7.0-17.0 [facility] Comment on above: Performed By: #### L IPA, CMP #### [facility] [address] [place] [id number] Jose Gita Urea nitrogen/Creatinine [Mass ratio] 11.0 mg/mg Normal [facility] Comment on above: Performed By: #### L IPA, CMP #### [facility] [address] [place] [id number] Jose Gita PROTIMEon 05-23-2019 INR Coag (PPP) [Relative time] 1.03 {INR} Normal [facility] Comment on above: Performed By: #### L IPA, CMP #### [facility] [address] [place] [id number] Jose Gita PT Coag (PPP) [Time] SEE BELOW Normal [facility] Comment on above: Result Comment: SELENE RED INR: 2.0 - 3.0 CONDITIONS NOT LISTED BELOW 2.5 - 3.5 FOR PROSTHETIC HEART VALVE REPLACEMENT 2.5 - 3.5 RECURRENT THROMBOSIS Performed By: #### L IPA, CMP #### [facility] [address] [place] [address] Jose Gita PT Coag (PPP) [Time] PLEASE NOTE: NORMAL RANGE CHANGE 05-20-2014 DUE TO REAGENT LOT CHANGE Normal [facility] Comment on above: Performed By: #### L IPA, CMP #### [facility] [address] [place] [address] Jose Gita PT Coag (PPP) [Time] 10.7 s Normal 9.0-11.6 [facility] Comment on above: Performed By: #### L IPA, CMP #### [facility] [address] [place] [address] Jose Gita PTTon 05-23-2019 aPTT Coag (Bld) [Time] 27.8 s Normal 22.3-36.2 [facility] Comment on above: Performed By: #### L IPA, CMP #### [facility] [address] [place] [address] Jose Gita aPTT Coag (Bld) [Time] PLEASE NOTE: NORMAL RANGE CHANGE 07-27-2015 DUE TO REAGENT LOT CHANGE Normal [facility] Comment on above: Performed By: #### L IPA, CMP #### [facility] [address] [place], [place] [id number] Jose Gita CBC AUTO DIFFon 12-28-2018 Basophils (Bld) [#/Vol] 0.1 103/ul Normal 0.0-0.1 [facility] Comment on above: Performed By: #### C BC #### [facility] [address] [place] [address] Jose Gita Basophils/100 WBC (Bld) 1.2 % Normal 0.2-2.0 [facility] Comment on above: Performed By: #### C BC #### [facility] [address] [place] [address] Jose Gita Eosinophils (Bld) [#/Vol] 0.2 103/ul Normal 0.0-0.7 [facility] Comment on above: Performed By: #### C BC #### [facility] [address] [place], [place] [address] Jose Gita Eosinophils/100 WBC (Bld) 5.9 % Normal 0.9-7.0 [facility] Comment on above: Performed By: #### C BC #### [facility] [address] [place], [place] [address] Jose Gita Erythrocyte distribution width (RBC) [Ratio] 13.7 % Normal 11.0-15.0 [facility] Comment on above: Performed By: #### C BC #### [facility] [address] [place], [place] [address] Jose Gita Hematocrit (Bld) [Volume fraction] 36.3 % Normal 36.0-48.0 [facility] Comment on above: Performed By: #### C BC #### [facility] [address] [place] [address] Jose Gita Hemoglobin (Bld) [Mass/Vol] 12.1 g/dL Normal 12.0-16.0 [facility] Comment on above: Performed By: #### C BC #### [facility] [address] [place], [place] [address] Jose Gita IG # 0.01 10e3/ul Normal 0.00-0.03 [facility] Comment on above: Performed By: #### C BC #### [facility] [address] [place], [place] [address] Jose Gita IG % 0.2 % Normal 0.0-0.5 [facility] Comment on above: Performed By: #### C BC #### [facility] [address] [place], [place] [address] Jose Gita Lymphocytes (Bld) [#/Vol] 1.2 103/ul Normal 1.2-3.8 [facility] Comment on above: Performed By: #### C BC #### [facility] [address] [place], [place] [address] Jose Gita Lymphocytes/100 WBC (Bld) 30.3 % Normal 20.5-60.0 [facility] Comment on above: Performed By: #### C BC #### [facility] [address], [place] [address] Jose Gita MANUAL DIFF REQ NO Normal [facility] Comment on above: Performed By: #### C BC #### [facility] [address] [place], [place] [address] Jose Gita MCH (RBC) [Entitic mass] 32.2 pg Normal 26.7-34.0 [facility] Comment on above: Performed By: #### C BC #### [facility] [address] [place], [place] [address] Jose Gita MCHC (RBC) [Mass/Vol] 33.3 g/dL Normal 29.9-35.2 [facility] Comment on above: Performed By: #### C BC #### [facility] [address] [place], [place] [address] Jose Gita MCV (RBC) [Entitic vol] 96.5 fL Normal 81.0-99.0 [facility] Comment on above: Performed By: #### C BC #### [facility] [address] [place], [place] [address] Jose Gita Monocytes (Bld) [#/Vol] 0.4 103/ul Normal 0.3-0.8 [facility] Comment on above: Performed By: #### C BC #### [facility] [address] [place] [address] Jose Gita Monocytes/100 WBC (Bld) 9.4 % Normal 1.7-12.0 [facility] Comment on above: Performed By: #### C BC #### [facility] [address] [place] [address] Jose Gita Neutrophils (Bld) [#/Vol] 2.2 103/ul Normal 1.4-6.5 [facility] Comment on above: Performed By: #### C BC #### [facility] [address] [place], [place] [address] Jose Gita Neutrophils/100 WBC (Bld) 53.0 % Normal 43.0-75.0 [facility] Comment on above: Performed By: #### C BC #### [facility] [address] [place], [place] [address] Jose Gita Platelet mean volume (Bld) [Entitic vol] 8.6 fL Critically low 9.5-13.5 [facility] Comment on above: Performed By: #### C BC #### [facility] [address] [place], [place] [address] Jose Gita Platelets (Bld) [#/Vol] 279 103/ul Normal 150-450 [facility] Comment on above: Performed By: #### C BC #### [facility] [address] [place], [place] [address] Jose Gita RBC (Bld) [#/Vol] 3.76 106/ul Critically low 4.20-5.40 [facility] Comment on above: Performed By: #### C BC #### [facility] [address] [place] [address] Jose Gita WBC (Bld) [#/Vol] 4.1 103/ul Normal 4.0-11.0 [facility] Comment on above: Performed By: #### C BC #### [facility] [address] [place] [address] Jose Gita PROF CHEM 8 (BAS METB)on Anion gap [Moles/Vol] 10.6 mmol/L Normal [facility] Comment on above: Performed By: #### B MP #### [facility] [address] [place], [place] [address] Jose Gita Calcium [Mass/Vol] 8.1 mg/dL Critically low 8.4-10.2 [facility] Comment on above: Performed By: #### B MP #### [facility] [address] [place] [address] Jose Gita Chloride [Moles/Vol] 111 mmol/L Critically high 98-107 [facility] Comment on above: Performed By: #### B MP #### [facility] [address] [place] [address] Jose Gita CO2 [Moles/Vol] 24.7 mmol/L Normal 22.0-30.0 [facility] Comment on above: Performed By: #### B MP #### [facility] [address] [place], [place] [address] Jose Gita Creatinine [Mass/Vol] 0.80 mg/dL Normal 0.52-1.04 [facility] Comment on above: Performed By: #### B MP #### [facility] [address] [place], [place] [address] Jose Gita EGFR-AF [place]INGAPOREAN >60 Normal >=60 [facility] Comment on above: Performed By: #### B MP #### [facility] [address] [place] [address] Jose Gita EGFR-NON AF [place]OREAN >60 Normal >=60 [facility] Comment on above: Performed By: #### B MP #### [facility] [address] [place] [address] Jose Gita Glucose [Mass/Vol] 93 mg/dL Normal 74-106 [facility] Comment on above: Performed By: #### B MP #### [facility] [address] [place] [address] Jose Gita Potassium [Moles/Vol] 4.3 mmol/L Normal 3.4-5.0 [facility] Comment on above: Performed By: #### B MP #### [facility] [address] [place] [address] Jose Gita Sodium [Moles/Vol] 142 mmol/L Normal 137-145 [facility] Comment on above: Performed By: #### B MP #### [facility] [address] [place] [address] Jose Gita Urea nitrogen [Mass/Vol] 6.0 mg/dL Critically low 7.0-17.0 [facility] Comment on above: Performed By: #### B MP #### [facility] [address] [place] [address] Jose Gita Urea nitrogen/Creatinine [Mass ratio] 7.5 mg/mg Normal [facility] Comment on above: Performed By: #### B MP #### [facility] [address] [place] [address] Jose Gita CBC AUTO DIFFon 12-27-2018 Basophils (Bld) [#/Vol] 0.0 103/ul Normal 0.0-0.1 [facility] Comment on above: Performed By: #### C BC #### [facility] [address] [place] [address] Jose Gita Basophils/100 WBC (Bld) 0.4 % Normal 0.2-2.0 [facility] Comment on above: Performed By: #### C BC #### [facility] [address] [place] [address] Jsoe Gita Eosinophils (Bld) [#/Vol] 0.1 103/ul Normal 0.0-0.7 [facility] Comment on above: Performed By: #### C BC #### [facility] [address] [place] [address] Jose Gita Eosinophils/100 WBC (Bld) 1.3 % Normal 0.9-7.0 [facility] Comment on above: Performed By: #### C BC #### [facility] [address] [place] [address] Jose Gita Erythrocyte distribution width (RBC) [Ratio] 13.4 % Normal 11.0-15.0 [facility] Comment on above: Performed By: #### C BC #### [facility] [address] [place] [address] Jose Gita Hematocrit (Bld) [Volume fraction] 37.0 % Normal 36.0-48.0 [facility] Comment on above: Performed By: #### C BC #### [facility] [address] [place] [address] Jose Gita Hemoglobin (Bld) [Mass/Vol] 12.9 g/dL Normal 12.0-16.0 [facility] Comment on above: Result Comment: repe ated slide reviewed ts Performed By: #### C BC #### [facility] [address] [place] [address] Jose Gita IG # 0.02 10e3/ul Normal 0.00-0.03 [facility] Comment on above: Performed By: #### C BC #### [facility] [address] [place], [place] [address] Jose Gita IG % 0.3 % Normal 0.0-0.5 [facility] Comment on above: Performed By: #### C BC #### [facility] [address] [place], [place] [address] Jose Gita Lymphocytes (Bld) [#/Vol] 0.7 103/ul Critically low 1.2-3.8 [facility] Comment on above: Performed By: #### C BC #### [facility] [address] [place] [address] Jose Gita Lymphocytes/100 WBC (Bld) 9.2 % Critically low 20.5-60.0 [facility] Comment on above: Performed By: #### C BC #### [facility] [address] [place], [place] [address] Jose Gita MANUAL DIFF REQ NO Normal [facility] Comment on above: Performed By: #### C BC #### [facility] [address] [place] [address] Jose Gita MCH (RBC) [Entitic mass] 32.4 pg Normal 26.7-34.0 [facility] Comment on above: Performed By: #### C BC #### [facility] [address] [place] [address] Jose Gita MCHC (RBC) [Mass/Vol] 34.9 g/dL Normal 29.9-35.2 [facility] Comment on above: Performed By: #### C BC #### [facility] [address] [place] [address] Jose Gita MCV (RBC) [Entitic vol] 93.0 fL Normal 81.0-99.0 [facility] Comment on above: Performed By: #### C BC #### [facility] [address] [place] [address] Jose Gita Monocytes (Bld) [#/Vol] 0.3 103/ul Normal 0.3-0.8 [facility] Comment on above: Performed By: #### C BC #### [facility] [address] [place], [place] [address] Jose Gita Monocytes/100 WBC (Bld) 3.6 % Normal 1.7-12.0 [facility] Comment on above: Performed By: #### C BC #### [facility] [address] [place], [place] [address] Jose Gita Neutrophils (Bld) [#/Vol] 6.4 103/ul Normal 1.4-6.5 [facility] Comment on above: Performed By: #### C BC #### [facility] [address] [place], [place] [address] Jose Gita Neutrophils/100 WBC (Bld) 85.2 % Critically high 43.0-75.0 [facility] Comment on above: Performed By: #### C BC #### [facility] [address] [place] [address] Jose Gita Platelet mean volume (Bld) [Entitic vol] 8.7 fL Critically low 9.5-13.5 [facility] Comment on above: Performed By: #### C BC #### [facility] [address] [place] [address] Jose Gita Platelets (Bld) [#/Vol] 401 103/ul Normal 150-450 [facility] Comment on above: Performed By: #### C BC #### [facility] [address] [place] [address] Jose Gita RBC (Bld) [#/Vol] 3.98 106/ul Critically low 4.20-5.40 [facility] Comment on above: Performed By: #### C BC #### [facility] [address] [place], [place] [address] Jose Gita WBC (Bld) [#/Vol] 7.5 103/ul Normal 4.0-11.0 [facility] Comment on above: Performed By: #### C BC #### [facility] [address] [place] [address] Jose Gita POTASSIUMon 12-27-2018 Potassium [Moles/Vol] 3.9 mmol/L Normal 3.4-5.0 [facility] Comment on above: Performed By: #### K #### [facility] [address] [place], [place] [address] Jose Pelayo PROF 14(COMP METB)on 019 Albumin [Mass/Vol] 3.2 g/dL Critically low 3.5-5.0 [facility] Comment on above: Performed By: #### C MP #### [facility] [address] [place], [place] [address] Josetripp Pelayo Albumin/Globulin [Mass ratio] 1.1 {ratio} Normal [facility] Comment on above: Performed By: #### C MP #### [facility] [address] [place] [address] Jose Gita ALP [Catalytic activity/Vol] 50 U/L Normal 38-126 [facility] Comment on above: Performed By: #### C MP #### [facility] [address] [place] [address] Jose Pelayo ALT [Catalytic activity/Vol] 60 U/L Critically high 9-52 [facility] Comment on above: Performed By: #### C MP #### [facility] [address] [place], [place] [address] Jose Gita Anion gap [Moles/Vol] 8.7 mmol/L Normal [facility] Comment on above: Performed By: #### C MP #### [facility] [address] [place], [place] [address] Josetripp Pelayo AST [Catalytic activity/Vol] 41 U/L Critically high 14-36 [facility] Comment on above: Performed By: #### C MP #### [facility] [address] [place], [place] [address] Jose Gita Bilirubin Ql (U) 0.5 mg/dL Normal 0.2-1.3 [facility] Comment on above: Performed By: #### C MP #### [facility] [address] [place], [place] [address] Jose Gita Calcium [Mass/Vol] 7.7 mg/dL Critically low 8.4-10.2 [facility] Comment on above: Performed By: #### C MP #### [facility] [address] [place] [address] Jose Gita Chloride [Moles/Vol] 107 mmol/L Normal 98-107 [facility] Comment on above: Performed By: #### C MP #### [facility] [address] [place] [address] Jose Gita CO2 [Moles/Vol] 27.1 mmol/L Normal 22.0-30.0 [facility] Comment on above: Performed By: #### C MP #### [facility] [address] [place] [address] Jose Gita Creatinine [Mass/Vol] 0.93 mg/dL Normal 0.52-1.04 [facility] Comment on above: Performed By: #### C MP #### [facility] [address] [place] [address] Jose Gita EGFR-AF [place]AN >60 Normal >=60 [facility] Comment on above: Performed By: #### C MP #### [facility] [address] [place] [address] Jose Gita EGFR-NON AF [place]AN >60 Normal >=60 [facility] Comment on above: Performed By: #### C MP #### [facility] [address] [place], [place] [address] Jose Gita Globulin (S) [Mass/Vol] 3.0 g/dL Normal [facility] Comment on above: Performed By: #### C MP #### [facility] [address] [place] [address] Jose Gita Glucose [Mass/Vol] 114 mg/dL Critically high 74-106 [facility] Comment on above: Performed By: #### C MP #### [facility] [address] [place], [place] [address] Jose Gita Potassium [Moles/Vol] 2.8 mmol/L Critically low 3.4-5.0 [facility] Comment on above: Result Comment: test repeated critical value verified Performed By: #### C MP #### [facility] [address] [place] [address] Josetripp Pelayo Protein [Mass/Vol] 6.2 g/dL Normal 6.1-8.2 [facility] Comment on above: Performed By: #### C MP #### [facility] [address] [place] [address] Josetripp Pelayo Sodium [Moles/Vol] 141 mmol/L Normal 137-145 [facility] Comment on above: Performed By: #### C MP #### [facility] [address] [place] [address] Jose Gita Urea nitrogen [Mass/Vol] 16.0 mg/dL Normal 7.0-17.0 [facility] Comment on above: Performed By: #### C MP #### [facility] [address] [place] [address] Jose Gita Urea nitrogen/Creatinine [Mass ratio] 17.2 mg/mg Normal [facility] Comment on above: Performed By: #### C MP #### [facility] [address] [place] [address] Jose Gita XR ABD FLAT UP/PA Natalya 12-27 XR ABD FLAT UP/PA [facility] Patient: LINDA ALVARADO Exam Date: 12/26/2018 : 1975 Gender:F Ordering : DR. NICHOLAS BOLTON . Admission #: [id number] Family : Order #: [id number] CLICK HERE TO VIEW EXAM RADIOLOGY REPORT [...] Naqvi M.D. on 12/27/2018 at 07:37 Normal [facility] CBC AUTO DIFFon 12-26-2018 Basophils (Bld) [#/Vol] 0.1 103/ul Normal 0.0-0.1 [facility] Comment on above: Performed By: #### C BC #### [facility] [address] [place], [place] [address] Jose Gita Basophils/100 WBC (Bld) 0.7 % Normal 0.2-2.0 [facility] Comment on above: Performed By: #### C BC #### [facility] [address] [place] [address] Jose Gita Eosinophils (Bld) [#/Vol] 0.3 103/ul Normal 0.0-0.7 [facility] Comment on above: Performed By: #### C BC #### [facility] [address] [place] [address] Jose Gita Eosinophils/100 WBC (Bld) 2.2 % Normal 0.9-7.0 [facility] Comment on above: Performed By: #### C BC #### [facility] [address] [place] [address] Jose Gita Erythrocyte distribution width (RBC) [Ratio] 13.5 % Normal 11.0-15.0 [facility] Comment on above: Performed By: #### C BC #### [facility] [address] [place] [address] Jose Gita Hematocrit (Bld) [Volume fraction] 46.0 % Normal 36.0-48.0 [facility] Comment on above: Performed By: #### C BC #### [facility] [address] [place] [address] Jose Gita Hemoglobin (Bld) [Mass/Vol] 15.7 g/dL Normal 12.0-16.0 [facility] Comment on above: Performed By: #### C BC #### [facility] [address] [place], [place] [address] Jose Gita IG # 0.05 10e3/ul Critically high 0.00-0.03 [facility] Comment on above: Performed By: #### C BC #### [facility] [address] [place] [address] Jose Gita IG % 0.4 % Normal 0.0-0.5 [facility] Comment on above: Performed By: #### C BC #### [facility] [address] [place] [address] Jose Gita Lymphocytes (Bld) [#/Vol] 1.0 103/ul Critically low 1.2-3.8 [facility] Comment on above: Performed By: #### C BC #### [facility] [address] [place] [address] Jose Gita Lymphocytes/100 WBC (Bld) 8.8 % Critically low 20.5-60.0 [facility] Comment on above: Performed By: #### C BC #### [facility] [address] [place] [address] Josetripp Cabanen MANUAL DIFF REQ NO Normal [facility] Comment on above: Performed By: #### C BC #### [facility] [address] [place] [address] Jose Gita MCH (RBC) [Entitic mass] 31.7 pg Normal 26.7-34.0 [facility] Comment on above: Performed By: #### C BC #### [facility] [address] [place], [place] [address] Jose Gita MCHC (RBC) [Mass/Vol] 34.1 g/dL Normal 29.9-35.2 [facility] Comment on above: Performed By: #### C BC #### [facility] [address] [place] [address] Jose Gita MCV (RBC) [Entitic vol] 92.9 fL Normal 81.0-99.0 [facility] Comment on above: Performed By: #### C BC #### [facility] [address] [place], [place] [address] Jose Gita Monocytes (Bld) [#/Vol] 0.3 103/ul Normal 0.3-0.8 [facility] Comment on above: Performed By: #### C BC #### [facility] [address] [place], [place] [address] Jose Gita Monocytes/100 WBC (Bld) 2.8 % Normal 1.7-12.0 [facility] Comment on above: Performed By: #### C BC #### [facility] [address] [place] [address] Jose Gita Neutrophils (Bld) [#/Vol] 9.8 103/ul Critically high 1.4-6.5 [facility] Comment on above: Performed By: #### C BC #### [facility] [address] [place], [place] [address] Jose Gita Neutrophils/100 WBC (Bld) 85.1 % Critically high 43.0-75.0 [facility] Comment on above: Performed By: #### C BC #### [facility] [address] [place], [place] [address] Josetripp Pelayo Platelet mean volume (Bld) [Entitic vol] 8.6 fL Critically low 9.5-13.5 [facility] Comment on above: Performed By: #### C BC #### [facility] [address] [place], [place] [address] Jose Gita Platelets (Bld) [#/Vol] 543 103/ul Critically high 150-450 [facility] Comment on above: Performed By: #### C BC #### [facility] [address] [place], [place] [address] Jose Gita RBC (Bld) [#/Vol] 4.95 106/ul Normal 4.20-5.40 [facility] Comment on above: Performed By: #### C BC #### [facility] [address] [place], [place] [address] Jose Gita WBC (Bld) [#/Vol] 11.5 103/ul Critically high 4.0-11.[address] [facility] Comment on above: Performed By: #### C BC #### [facility] [address] [place], [place] [address] Jose Pelayo LIPASEon 12-26-2018 Lipase [Catalytic activity/Vol] 186.0 U/L Normal 23.0-300.0 [facility] Comment on above: Performed By: #### L IPA, CMP #### [facility] [address] [place] [address] Jose Pelayo PROF 14(COMP METB)on 019 Albumin [Mass/Vol] 4.5 g/dL Normal 3.5-5.0 [facility] Comment on above: Performed By: #### L IPA, CMP #### [facility] [address] [place] [address] Jose Gita Albumin/Globulin [Mass ratio] 1.2 {ratio} Normal [facility] Comment on above: Performed By: #### L IPA, CMP #### [facility] [address] [place] [address] Jose Gita ALP [Catalytic activity/Vol] 65 U/L Normal 38-126 [facility] Comment on above: Performed By: #### L IPA, CMP #### [facility] [address] [place] [address] Jose Gita ALT [Catalytic activity/Vol] 75 U/L Critically high 9-52 [facility] Comment on above: Performed By: #### L IPA, CMP #### [facility] [address] [place] [address] Jose Gita Anion gap [Moles/Vol] 10.7 mmol/L Normal [facility] Comment on above: Performed By: #### L IPA, CMP #### [facility] [address] [place], [place] [address] Jose Gita AST [Catalytic activity/Vol] 51 U/L Critically high 14-36 [facility] Comment on above: Performed By: #### L IPA, CMP #### [facility] [address] [place] [address] Jose Gita Bilirubin Ql (U) 0.6 mg/dL Normal 0.2-1.3 [facility] Comment on above: Performed By: #### L IPA, CMP #### [facility] [address] [place] [address] Jose Gita Calcium [Mass/Vol] 9.3 mg/dL Normal 8.4-10.2 [facility] Comment on above: Performed By: #### L IPA, CMP #### [facility] [address] [place] [address] Jose Gita Chloride [Moles/Vol] 103 mmol/L Normal 98-107 [facility] Comment on above: Performed By: #### L IPA, CMP #### [facility] [address] [place] [address] Jose Gita CO2 [Moles/Vol] 28.8 mmol/L Normal 22.0-30.0 [facility] Comment on above: Performed By: #### L IPA, CMP #### [facility] [address] [address] Jose Gita Creatinine [Mass/Vol] 1.03 mg/dL Normal 0.52-1.04 [facility] Comment on above: Performed By: #### L IPA, CMP #### [facility] [address] [address] Jose Gita EGFR-AF [place]ING[place]OREAN >60 Normal >=60 [facility] Comment on above: Performed By: #### L IPA, CMP #### [facility] [address] [address] Jose Gita EGFR-NON AF [place]AN 59 mL/min/1.73m2 Critically low >=60 [facility] Comment on above: Performed By: #### L IPA, CMP #### [facility] [address] [address] Jose Gita Globulin (S) [Mass/Vol] 3.7 g/dL Normal [facility] Comment on above: Performed By: #### L IPA, CMP #### [facility] [address] [address] Jose Gita Glucose [Mass/Vol] 114 mg/dL Critically high 74-106 T [facility] Comment on above: Performed By: #### L IPA, CMP #### [facility] [address] [address] Jose Gita Potassium [Moles/Vol] 3.5 mmol/L Normal 3.4-5.0 [facility] Comment on above: Performed By: #### L IPA, CMP #### [facility] [address] [place], [place] [address] Jose Gita Protein [Mass/Vol] 8.2 g/dL Normal 6.1-8.2 [facility] Comment on above: Performed By: #### L IPA, CMP #### [facility] [address] [place], [place] [address] Jose Gita Sodium [Moles/Vol] 139 mmol/L Normal 137-145 [facility] Comment on above: Performed By: #### L IPA, CMP #### [facility] [address] [place], [place] [address] Jose Gita Urea nitrogen [Mass/Vol] 15.0 mg/dL Normal 7.0-17.0 [facility] Comment on above: Performed By: #### L IPA, CMP #### [facility] [address] [place], [place] [address] Jose Gita Urea nitrogen/Creatinine [Mass ratio] 14.6 mg/mg Normal [facility] Comment on above: Performed By: #### L IPA, CMP #### [facility] [address] [place], [place] [address] Jose Gita Vital Signs Date Time Vital Sign Value Performing Clinician Facility 12-28-2024 [id number] Body height 151.13 cm [facility] 12-28-2024 18:28-0400 Body mass index (BMI) [Ratio] 38 kg/m2 [facility] 12-28-2024 18:28-0400 Body temperature 98.7 [degF] [facility] 12-28-2024 18:28-0400 Body weight 86.86 kg [facility] 12-28-2024 18:28-0400 Diastolic blood pressure 82 mm[Hg] [facility] 12-28-2024 18:28-0400 Heart rate 72 /min [facility] 12-28-2024 18:28-0400 Respiratory rate 18 /min [facility] 12-28-2024 18:28-0400 SaO2% (BldA) [Mass fraction] 98 % [facility] 12-28-2024 18:28-0400 Systolic blood pressure 144 mm[Hg] [facility] 10-28-2024 15:50-0500 Body height 151.13 cm [facility] 10-28-2024 15:50-0500 Body mass index (BMI) [Ratio] 38.7 kg/m2 [facility] 10-28-2024 15:50-0500 Body weight 88.45 kg [facility] 10-28-2024 15:50-0500 Diastolic blood pressure 80 mm[Hg] [facility] 10-28-2024 15:50-0500 Heart rate 97 /min [facility] 10-28-2024 15:50-0500 SaO2% (BldA) [Mass fraction] 97 % [facility] 10-28-2024 15:50-0500 Systolic blood pressure 130 mm[Hg] [facility] 08-28-2024 11:19-0500 Body height 152.4 cm Lenny Gwendolyn [employer] Work Phone: [facility] 08-28-2024 11:19-0500 Body mass index (BMI) [Ratio] 36.72 kg/m2 Lenny [employer] Work Phone: [facility] 08-28-2024 11:19-0500 Body weight 85.28 kg Lenny Snow [employer] Work Phone: [facility] 08-28-2024 11:19-0500 Diastolic blood pressure 74 mm[Hg] Lenny Gwendolyn [employer] Work Phone: [facility] 08-28-2024 11:19-0500 Systolic blood pressure 132 mm[Hg] Lenny Gwendolyn [employer] Work Phone: [facility] 08-22-2024 11:15-0500 Body height 152.4 cm [facility] 08-22-2024 11:15-0500 Body mass index (BMI) [Ratio] 37.8 kg/m2 [facility] 08-22-2024 11:15-0500 Body temperature 98.6 [degF] [facility] 08-22-2024 11:15-0500 Body weight 87.99 kg [facility] 08-22-2024 11:15-0500 Diastolic blood pressure 82 mm[Hg] [facility] 08-22-2024 11:15-0500 Heart rate 91 /min [facility] 08-22-2024 11:15-0500 Respiratory rate 18 /min [facility] 08-22-2024 11:15-0500 SaO2% (BldA) [Mass fraction] 96 % [facility] 08-22-2024 11:15-0500 Systolic blood pressure 143 mm[Hg] [facility] 08-03-2024 15:47-0500 Body height 152.4 cm [facility] 08-03-2024 15:47-0500 Body mass index (BMI) [Ratio] 37.8 kg/m2 [facility] 08-03-2024 15:47-0500 Body temperature 97.4 [degF] [facility] 08-03-2024 15:47-0500 Body weight 87.99 kg [facility] 08-03-2024 15:47-0500 Diastolic blood pressure 73 mm[Hg] [facility] 08-03-2024 15:47-0500 Heart rate 81 /min [facility] 08-03-2024 15:47-0500 Respiratory rate 20 /min [facility] 08-03-2024 15:47-0500 SaO2% (BldA) [Mass fraction] 98 % [facility] 08-03-2024 15:47-0500 Systolic blood pressure 122 mm[Hg] [facility] 07-16-2024 15:50-0500 Body height 151.77 cm Elver Mendenhall II Work Phone: [facility] 07-16-2024 15:50-0500 Body mass index (BMI) [Ratio] 37.6 kg/m2 Elver Mendenhall II Work Phone: [facility] 07-16-2024 15:50-0500 Body weight 86.63 kg Elver Mendenhall II Work Phone: [facility] 07-16-2024 15:50-0500 Diastolic blood pressure 86 mm[Hg] Elver Mendenhall II Work Phone: [facility] 07-16-2024 15:50-0500 Heart rate 97 /min Elver Mendenhall II Work Phone: [facility] 07-16-2024 15:50-0500 SaO2% (BldA) [Mass fraction] 96 % Elver Mendenhall II Work Phone: [facility] 07-16-2024 15:50-0500 Systolic blood pressure 156 mm[Hg] Elver Mendenhall II Work Phone: [facility] 07-02-2024 15:34-0400 Body height 152.4 cm Trever Barnard DPM Work Phone: [facility] 07-02-2024 15:34-0400 Body mass index (BMI) [Ratio] 38.28 kg/m2 Trever Barnard DPM Work Phone: [facility] 07-02-2024 15:34-0400 Body weight 88.91 kg Trever Barnard DPM Work Phone: [facility] 07-02-2024 15:34-0400 Diastolic blood pressure 77 mm[Hg] Trever Barnard DPM Work Phone: [facility] 07-02-2024 15:34-0400 Heart rate 81 /min Trever Barnard DPM Work Phone: [facility] 07-02-2024 15:34-0400 Systolic blood pressure 124 mm[Hg] Trever Barnard DPM Work Phone: [facility] 06-03-2024 15:39-0400 Body height 152.4 cm Gita Hemmer PA Work Phone: [facility] 06-03-2024 15:39-0400 Body mass index (BMI) [Ratio] 38.28 kg/m2 Gita Hemmer PA Work Phone: [facility] 06-03-2024 15:39-0400 Body weight 88.91 kg Gita Hemmer PA Work Phone: [facility] 06-03-2024 15:39-0400 Diastolic blood pressure 64 mm[Hg] Gita Hemmer PA Work Phone: [facility] 06-03-2024 15:39-0400 Heart rate 85 /min Gita Hemmer PA Work Phone: [facility] 06-03-2024 15:39-0400 Respiratory rate 17 /min Gita Hemmer PA Work Phone: [facility] 06-03-2024 15:39-0400 SaO2% (BldA) [Mass fraction] 98 % Gita Hemmer PA Work Phone: [facility] 06-03-2024 15:39-0400 Systolic blood pressure 128 mm[Hg] Gita Hemmer PA Work Phone: [facility] 05-28-2024 14:33-0400 Body height 152.4 cm Trever Barnard DPM Work Phone: [facility] 05-28-2024 14:33-0400 Body mass index (BMI) [Ratio] 38.28 kg/m2 Trever Barnard DPM Work Phone: [facility] 05-28-2024 14:33-0400 Body weight 88.91 kg Trever Barnard DPM Work Phone: [facility] 05-28-2024 14:33-0400 Diastolic blood pressure 80 mm[Hg] Trever Barnard DPM Work Phone: [facility] 05-28-2024 14:33-0400 Heart rate 75 /min Trever Barnard DPM Work Phone: [facility] 05-28-2024 14:33-0400 Respiratory rate 18 /min Trever Barnard DPM Work Phone: [facility] 05-28-2024 14:33-0400 Systolic blood pressure 124 mm[Hg] Trever Barnard DPM Work Phone: [facility] 05-14-2024 14:44-0400 Body height 152.4 cm Trever Barnard DPM Work Phone: [facility] 05-14-2024 14:44-0400 Body mass index (BMI) [Ratio] 38.28 kg/m2 Trever Barnard DPM Work Phone: [facility] 05-14-2024 14:44-0400 Body weight 88.91 kg Trever Barnard DPM Work Phone: [facility] 05-14-2024 14:44-0400 Diastolic blood pressure 80 mm[Hg] Trever Barnard DPM Work Phone: [facility] 05-14-2024 14:44-0400 Heart rate 75 /min Trever Barnard DPM Work Phone: [facility] 05-14-2024 14:44-0400 Systolic blood pressure 123 mm[Hg] Trever Barnard DPM Work Phone: [facility] 05-13-2024 14:59-0400 Body height 152.4 cm Gita Hemmer PA Work Phone: [facility] 05-13-2024 14:59-0400 Body mass index (BMI) [Ratio] 38.2 kg/m2 Gita Hemmer PA Work Phone: [facility] 05-13-2024 14:59-0400 Body weight 88.72 kg Gita Hemmer PA Work Phone: [facility] 05-13-2024 14:59-0400 Diastolic blood pressure 72 mm[Hg] Gita Hemmer PA Work Phone: [facility] 05-13-2024 14:59-0400 Heart rate 91 /min Gita Hemmer PA Work Phone: [facility] 05-13-2024 14:59-0400 Respiratory rate 16 /min Gita Hemmer PA Work Phone: [facility] 05-13-2024 14:59-0400 SaO2% (BldA) [Mass fraction] 97 % Gita Hemmer PA Work Phone: [facility] 05-13-2024 14:59-0400 Systolic blood pressure 138 mm[Hg] Gita Erik HUSAIN Work Phone: [facility] 01-30-2024 09:26-0400 Body height 152.4 cm [facility] 01-30-2024 09:26-0400 Body mass index (BMI) [Ratio] 38.7 kg/m2 [facility] 01-30-2024 09:26-0400 Body weight 89.81 kg [facility] 01-30-2024 09:26-0400 Diastolic blood pressure 85 mm[Hg] [facility] 01-30-2024 09:26-0400 Heart rate 97 /min [facility] 01-30-2024 09:26-0400 SaO2% (BldA) [Mass fraction] 97 % [facility] 01-30-2024 09:26-0400 Systolic blood pressure 142 mm[Hg] [facility] 01-09-2024 15:16-0400 Body height 152.4 cm [facility] 01-09-2024 15:16-0400 Body mass index (BMI) [Ratio] 37.8 kg/m2 [facility] 01-09-2024 15:16-0400 Body temperature 97.7 [degF] [facility] 01-09-2024 15:16-0400 Body weight 87.99 kg [facility] 01-09-2024 15:16-0400 Diastolic blood pressure 80 mm[Hg] [facility] 01-09-2024 15:16-0400 Heart rate 90 /min [facility] 01-09-2024 15:16-0400 Respiratory rate 18 /min [facility] 01-09-2024 15:16-0400 SaO2% (BldA) [Mass fraction] 99 % [facility] 01-09-2024 15:16-0400 Systolic blood pressure 131 mm[Hg] [facility] 12-25-2023 17:21-0400 Body height 152.4 cm [facility] 12-25-2023 17:21-0400 Body mass index (BMI) [Ratio] 30.2 kg/m2 [facility] 12-25-2023 17:21-0400 Body temperature 98.3 [degF] [facility] 12-25-2023 17:21-0400 Body weight 70.3 kg [facility] 12-25-2023 17:21-0400 Heart rate 96 /min [facility] 12-25-2023 17:21-0400 Respiratory rate 18 /min [facility] 12-25-2023 17:21-0400 SaO2% (BldA) [Mass fraction] 96 % [facility] 10-04-2023 08:09-0500 Body mass index (BMI) [Ratio] 37.07 kg/m2 Gita Hemmer PA Work Phone: [facility] 10-04-2023 08:09-0500 Body weight 86.09 kg Gita Hemmer PA Work Phone: [facility] 10-04-2023 08:09-0500 Diastolic blood pressure 75 mm[Hg] Gita Hemmer PA Work Phone: [facility] 10-04-2023 08:09-0500 Heart rate 94 /min Gita Hemmer PA Work Phone: [facility] 10-04-2023 08:09-0500 Respiratory rate 14 /min Gita Hemmer PA Work Phone: [facility] 10-04-2023 08:09-0500 SaO2% (BldA) [Mass fraction] 95 % Gita Hemmer PA Work Phone: [facility] 10-04-2023 08:09-0500 Systolic blood pressure 140 mm[Hg] Gita Hemmer PA Work Phone: [facility] 08-01-2023 08:30-0500 Body height 152.4 cm Jane Waller Other [facility] Other 04-02-2023 11:15-0400 Body height 152.4 cm Jane Waller Other [facility] Other 04-02-2023 11:15-0400 Body mass index (BMI) [Ratio] 36.71 kg/m2 Jane Sridhar Other [facility] Other 04-02-2023 11:15-0400 Body weight 85.28 kg Jane Waller Other [facility] Other 04-02-2023 11:15-0400 Diastolic blood pressure 82 mm[Hg] Jane Waller Other [facility] Other 04-02-2023 11:15-0400 SaO2% (BldA) [Mass fraction] 98 % Jane Waller Other [facility] Other 04-02-2023 11:15-0400 Systolic blood pressure 143 mm[Hg] Jane Waller Other [facility] Other 02-06-2023 08:45-0400 Body height 152.4 cm Jane Sridhar Other [facility] Other 02-06-2023 08:45-0400 Diastolic blood pressure 79 mm[Hg] Jane Waller Other [facility] Other 02-06-2023 08:45-0400 SaO2% (BldA) [Mass fraction] 96 % Jane Sridhar Other [facility] Other 02-06-2023 08:45-0400 Systolic blood pressure 118 mm[Hg] Jane Waller Other [facility] Other 03-19-2022 10:00-0400 Body height 152.4 cm Ciera Mcwilliams Other [facility] Other 03-19-2022 10:00-0400 Body mass index (BMI) [Ratio] 35.74 kg/m2 Ciera Poppy Other [facility] Other 03-19-2022 10:00-0400 Body temperature 96.8 [degF] Ciera Poppy Other [facility] Other 03-19-2022 10:00-0400 Body weight 83.01 kg Ciera Poppy Other [facility] Other 03-19-2022 10:00-0400 Diastolic blood pressure 89 mm[Hg] Ciera Poppy Other [facility] Other 03-19-2022 10:00-0400 Respiratory rate 20 /min Ciera Poppy Other [facility] Other 03-19-2022 10:00-0400 SaO2% (BldA) [Mass fraction] 98 % Ciera Poppy Other [facility] Other 03-19-2022 10:00-0400 Systolic blood pressure 142 mm[Hg] Ciera Poppy Other [facility] Other 02-22-2022 11:00-0400 Body height 152.4 cm Jane Waller Other [facility] Other 02-22-2022 11:00-0400 Body mass index (BMI) [Ratio] 35.93 kg/m2 Jane Waller Other [facility] Other 02-22-2022 11:00-0400 Body temperature 97.7 [degF] Jane Waller Other [facility] Other 02-22-2022 11:00-0400 Body weight 83.46 kg Jane Waller Other [facility] Other 02-22-2022 11:00-0400 Diastolic blood pressure 82 mm[Hg] Jane Waller Other [facility] Other 02-22-2022 11:00-0400 SaO2% (BldA) [Mass fraction] 98 % Jane Waller Other [facility] Other 02-22-2022 11:00-0400 Systolic blood pressure 122 mm[Hg] Jane Waller Other [facility] Other 08-22-2021 16:30-0500 Body height 152.4 cm Jane Waller Other [facility] Other 08-22-2021 16:30-0500 Body mass index (BMI) [Ratio] 37.2 kg/m2 Jane Waller Other [facility] Other 08-22-2021 16:30-0500 Body temperature 97.5 [degF] Jane Waller Other [facility] Other 08-22-2021 16:30-0500 Body weight 86.41 kg Jane Waller Other [facility] Other 08-22-2021 16:30-0500 Diastolic blood pressure 83 mm[Hg] Jane Waller Other [facility] Other 08-22-2021 16:30-0500 SaO2% (BldA) [Mass fraction] 97 % Jane Waller Other [facility] Other 08-22-2021 16:30-0500 Systolic blood pressure 141 mm[Hg] Jane Waller Other [facility] Other 08-19-2021 10:20-0500 Body height 152.4 cm Tracy Mcqueenault Other [facility] Other 08-19-2021 10:20-0500 Body mass index (BMI) [Ratio] 36.52 kg/m2 Tracy Oliver Other [facility] Other 08-19-2021 10:20-0500 Body temperature 97.9 [degF] Tracy Mcqueenault Other [facility] Other 08-19-2021 10:20-0500 Body weight 84.82 kg Tracy Mcqueenault Other [facility] Other 08-19-2021 10:20-0500 Diastolic blood pressure 80 mm[Hg] Tracy Mcqueenault Other [facility] Other 08-19-2021 10:20-0500 Respiratory rate 18 /min Tracy Mcqueenault Other [facility] Other 08-19-2021 10:20-0500 SaO2% (BldA) [Mass fraction] 100 % Tracy Mcqueenault Other [facility] Other 08-19-2021 10:20-0500 Systolic blood pressure 146 mm[Hg] Tracy Mcqueenault Other [facility] Other 06-01-2021 09:30-0400 Body height 152.4 cm Jane Waller Other [facility] Other Encounters Encounter Date Encounter Type Care Provider Facility Start: 01-05-2025 End: 01-05-2025 Telephone encounter Gita HUSAIN Work Phone: [facility] Start: 12-28-2024 End: 12-28-2024 ambulatory [facility] Work Phone: Start: 12-28-2024 End: 12-28-2024 Patient encounter procedure [facility] Work Phone: Start: 12-09-[address] [facility] Start: 11-30-2024 End: 11-30-2024 ambulatory [facility] Start: 10-28-2024 End: 10-28-2024 ambulatory [facility] Work Phone: Start: 10-28-2024 End: 10-28-2024 Patient encounter procedure [facility] Work Phone: Start: 10-27-2024 End: 10-27-2024 ambulatory GITA GARCIA Not Available Start: 08-28-2024 End: 08-28-2024 Bamboo flowsheet Lenny Snow DO Work Phone: [facility] Start: 08-28-2024 End: 08-28-2024 Bamboo flowsheet Lenny Snow DO Work Phone: [facility] Start: 08-28-2024 End: 08-28-2024 Patient encounter status Lenny Snow DO Work Phone: [facility] Start: 08-28-2024 End: 08-28-2024 Periodic preventive [...] ambulatory LENNY Javier CANADAER Not Available Start: 08-22-2024 End: 08-22-2024 Patient encounter procedure [facility] Work Phone: Start: 08-03-2024 End: 08-03-2024 Patient encounter procedure [facility] Work Phone: Start: 07-16-2024 End: 07-16-2024 ambulatory Elver Mendenhall II Work Phone: [facility] Work Phone: Start: 07-16-2024 End: 07-16-2024 Patient encounter procedure Elver Mendenhall II Work Phone: [facility] Phys[facility] Work Phone: Start: 07-13-2024 End: [...] End: 05-31-2024 Non-patient / Non-visit Elver Mendenhall Work Phone: [facility] Work Phone: Start: 05-30-2024 End: 05-31-2024 Telephone encounter Tracy Villareal BLOCK ENGRAVER Work Phone: [facility] Start: 05-28-2024 Non-patient / Non-visit Elver Mendenhall Work Phone: [facility] Work Phone: Start: 05-28-2024 End: 05-28-2024 Office outpatient visit 15 minutes Trever Barnard DPM Work Phone: [facility] Comment on above: Peroneal tendinitis, left (Primary Dx); Peroneal tendinitis, right; Venous insufficiency Start: 05-28-2024 End: 05-28-2024 ambulatory TREVER BARNARD Not Available Start: 05-27-2024 End: 05-27-2024 Telephone encounter Tracy Villareal BLOCK ENG[employer] Work Phone: [facility] Comment on above: OA call ([facility] ostshe called with a critical lab. Potassium is 2.6. Call placed to [place] Villareal) Start: 05-20-2024 End: 05-20-2024 ambulatory II Elver Mendenhall Work Phone: [facility] Work Phone: Start: 05-20-2024 End: 05-20-2024 Departed Referred II Elver Mendenhall Work Phone: [facility] [place] Work Phone: Start: 05-19-2024 End: 05-20-2024 Patient encounter procedure II Elver Mendenhall Work Phone: [facility] Work Phone: Start: 05-19-2024 End: 05-20-2024 ambulatory II Elver Mendenhall Work Phone: [facility] Work Phone: Start: 05-14-2024 End: 05-14-2024 Office [...] FM Start: 03-04-2024 End: 03-04-2024 ambulatory SEB KITCHEN Not Available Start: 01-30-2024 End: 01-30-2024 ambulatory [facility] Work Phone: Start: 01-30-2024 End: 01-30-2024 Patient encounter procedure [facility] Work Phone: Start: 01-09-2024 End: 01-09-2024 ambulatory [facility] Work Phone: Start: 01-09-2024 End: 01-09-2024 Patient encounter procedure [facility] Work Phone: Start: 12-25-2023 End: 12-25-2023 ambulatory [facility] Work Phone: Start: 12-25-2023 End: 12-25-2023 Patient encounter procedure [facility] Phys[facility] Work Phone: Start: 10-14-2023 End: 10-14-2023 Office outpatient visit 15 minutes Lubna Lawrence REGULATORY AUDITOR-COURT MONITOR Work Phone: [facility] Comment on above: Nevus; Perioral dermatitis Start: 10-10-2023 End: 10-10-2023 ambulatory Jane Waller Other [facility] [employer] Other Start: 10-10-2023 Telephone encounter Jane Waller [facility] Start: 10-04-2023 Chart abstracting Gita sinha PA [...] 09-05-2023 End: 09-05-2023 ambulatory Jane Waller Other [facility] Other Start: 09-05-2023 Telephone encounter Jane Song [facility] Start: 08-01-2023 Office outpatient vi sit [address] [facility] Start: 08-01-2023 End: 08-01-2023 Patient encounter procedure II Elver Mendenhall Work Phone: [facility] Work Phone: Start: 08-01-2023 End: 08-01-2023 ambulatory II Elver Mendenhall Work Phone: [facility] Other Start: 07-30-2023 End: 07-30-2023 ambulatory Ciera Poppy Other [facility] Other Start: 07-30-2023 Office outpatient vi sit 25 minutes Ciera Poppy [facility] Start: 07-16-2023 End: 07-16-2023 ambulatory Ciera Poppy Other [facility] Other Start: 07-16-2023 Telephone encounter Ciera Poppy [facility] Start: 06-13-2023 End: 06-13-2023 ambulatory Jane Waller Other [facility] Other Start: 06-13-2023 Telephone encounter Jane Song [facility] Start: 06-03-2023 End: 06-03-2023 ambulatory Jane Waller Other [facility] Other Start: 06-03-2023 Telephone encounter Jane Song [facility] Start: 04-02-2023 Office outpatient vi sit 25 minutes Jane Sridhar [facility] Start: 04-02-2023 End: 04-02-2023 ambulatory II Elver Mendenhall Work Phone: [facility] Other Start: 04-02-2023 End: 04-02-2023 Patient encounter procedure II Elver Mendenhall Work Phone: [facility] Work Phone: Start: 03-11-2023 End: 03-11-2023 ambulatory Efraín Patel Other [facility] [employer] Other Start: 03-11-2023 Telephone encounter Efraín Patel [facility] Start: 02-06-2023 Office outpatient vi sit 25 minutes Jane Waller [facility] Start: 02-06-2023 End: 02-06-2023 ambulatory II Elver Mendenhall Work Phone: [facility] Other Start: 02-06-2023 End: 02-06-2023 Patient encounter procedure II Elver Mendenhall Work Phone: [facility] Work Phone: Start: 11-22-2022 End: 11-22-2022 ambulatory Jane Waller Other [facility] Other Start: 11-22-2022 Telephone encounter Jane Waller [facility] Start: 08-28-2022 End: 08-28-2022 ambulatory Jane Waller Other [facility] Other Start: 08-28-2022 Telephone encounter Jane Song [facility] Start: 07-03-2022 End: 07-03-2022 Patient encounter procedure II Elver Mendenhall Work Phone: [facility] Start: 07-03-2022 End: 07-03-2022 ambulatory II Elver Mendenhall Work Phone: [facility] Work Phone: Start: 07-03-2022 Office outpatient vi sit 25 minutes Jane Waller [facility] Start: 05-24-2022 End: 05-24-2022 ambulatory Jane Waller Other [facility] Other Start: 05-24-2022 Telephone encounter Jane Waller [facility] Start: 03-19-2022 End: 03-19-2022 ambulatory Ciera Poppy Other [facility] Other Start: 03-19-2022 Office outpatient vi sit 25 minutes Ciera Poppy [facility] Start: 02-23-2022 End: 02-23-2022 ambulatory Jane Waller Other [facility] Other Start: 02-23-2022 Telephone encounter Jane Waller [facility] Start: 02-22-2022 End: 02-22-2022 ambulatory Jane Waller Other [facility] Other Start: 02-22-2022 Office outpatient vi sit 25 minutes Jane Waller [facility] Start: 11-24-2021 End: 11-24-2021 ambulatory Jane Waller Other [facility] Other Start: 11-24-2021 Telephone encounter Jane Waller [facility] Start: 09-08-2021 End: 09-08-2021 ambulatory Jane Waller Other [facility] Other Start: 09-08-2021 Telephone encounter Ciera Poppy [facility] Start: 08-22-2021 End: 08-22-2021 ambulatory Jane Waller Other [facility] Other Start: 08-22-2021 Office outpatient vi sit 25 minutes Jane Waller [facility] Start: 08-19-2021 End: 08-19-2021 ambulatory Tracy Oliver Other [facility] Other Start: 08-19-2021 Office outpatient vi sit 15 minutes Tracy Oliver [facility] [place] Start: 08-02-2021 End: 08-02-2021 ambulatory Jane Waller Other [facility] Other Start: 08-02-2021 Telephone encounter Jane Waller [facility] Start: 06-30-2021 Telephone encounter Jane Song [facility] Start: 06-01-2021 Office outpatient vi sit 25 minutes Jane Waller [facility] Start: 07-07-2019 End: 07-13-2019 Evaluation and management of inpatient ELVER MENDENHALL Facility:[facility] Start: 07-06-2019 End: 07-07-2019 Patient encounter procedure ELVER MENDENHALL Facility: Start: 06-08-2019 End: 06-09-2019 Patient encounter procedure GITA GARCIA Facility:[facility] Start: 05-23-2019 End: 05-24-2019 Patient encounter procedure ELVERYESI MENDENHALL Facility:[facility] Start: 12-27-2018 End: 12-28-2018 Patient encounter procedure ELVER MENDENHALL Facility:[facility] Start: 03-27-2018 Patient encounter PROVIDER UNKNOWN F [id number] Start: 03-27-2018 Patient encounter Facil [id number] Procedures Date Procedure Procedure Detail Performing Clinician Start: 10-27-2024 Mammography Gita HUSAIN Work Phone: Start: 03-27-2023 Microscopic observat ion [Identifier] in [...] above: Performed By: #### [id number] #### [address] Start: 12-27-2018 End: 12-27-2018 Microscopic examination of blood, culture ELVER MENDENHALL Comment on above: Performed By: #### B [id number] #### [facility] [address] [place], [place] [address] Jose Gita Performed By: #### L IPA, CMP #### [facility] [address] [place], [place] [address] Jose Pelayo Plan of Treatment Date Care Activity Detail Author Start: 08-28-2029 Screening for malign ant neoplasm of cervix [facility] Start: 03-27-2028 Screening for malign ant neoplasm of cervix [facility] Start: 03-27-2026 Screening for malign ant neoplasm of cervix Pap Smear [facility] Start: 10-27-2025 Screening for malign ant neoplasm of breast Mammogram [facility] Start: 09-03-2025 End: 09-03-2025 Patient encounter procedure 09/03/2025 11:30 AM EST Office Visit [facility] OB [address] [place] [phone] Lenny Snow DO [address] [place], [place] [id number] [facility] Start: 05-13-2025 Screening for malign ant neoplasm of colon Colorectal Cancer Screening [facility] Comment on above: Postponed from 06/07 (Patient Refused) Start: 05-03-2025 Influenza vaccination Influenz a Vaccine (Season Ended) [facility] Start: 02-08-2025 End: 02-08-2025 Patient encounter procedure 02/08/2025 8:30 AM EDT Office Visit [facility] DERM [address] [place] [phone] Lubna Lawrence APRN-COURT MONITOR [address] [place], [place] [phone] [facility] DERM Start: 10-27-2024 End: 10-27-2024 Professional / ancillary services management 10/27/2024 4:00 PM EST Ancillary Procedure [facility] [place] [address] [place] [address] [facility] [place] Start: 08-28-2024 End: 08-28-2024 Patient encounter procedure [facility] Comment on above: Arrived Start: 07-02-2024 End: 07-02-2024 Patient encounter procedure 07/02/2024 4:20 PM EDT Office Visit [facility] [address] [place] [phone] Trever Barnard DPM [address] [facility] [address] [place] [address] Peroneal tendinitis, left (Primary Dx); Peroneal tendinitis, right; Venous insufficiency [facility] Comment on above: Peroneal tendinitis, left (Primary Dx); Peroneal tendinitis, right; Venous insufficiency Start: 06-30-2024 End: 06-30-2024 Patient encounter procedure 06/30/2024 9:30 AM EDT Office Visit [facility] [address] [place] [address] Lenny Snow, [address] [place] [address] [facility] Start: 06-25-2024 End: 06-25-2024 Patient encounter procedure 06/25/2024 2:40 PM EDT Office Visit [facility] [address] [place] [address] Trever Barnard DPM [address] [address] [facility] Start: 06-10-2024 End: 06-03-2025 Basic metabolic 1998 panel - Serum or Plasma Basic metabolic panel Lab Routine Hypokalemia Expected: 06/10/2024 (Approximate), Expires: 06/03/2025 [facility] Work Phone: Comment on above: Expected: 06/10/2024 (Approximate), Expires: 06/03/2025 Start: 06-03-2024 End: 06-03-2024 Patient encounter procedure 06/03/2024 4:00 PM EDT Office Visit [facility] [address] [place] [address] Gita Garcia PA [address] [place] [address] [facility] Start: 06-03-2024 End: 06-03-2026 Heart Transthoracic Transthoracic Echo (TTE) Complete Echocardiography Routine Ankle edema Abnormal electrocardiogram Expected: 06/03/2024 (Approximate), Expires: 06/03/2026 [facility] Comment on above: Expected: 06/03/2024 (Approximate), Expires: 06/03/2026 Start: 05-29-2024 End: 05-27-2025 Potassium [Moles/volume] in Serum or Plasma Potassium Lab Routine Hypokalemia Expected: 05/29/2024, Expires: 05/27/2025 [facility] Work Phone: Comment on above: Expected: 05/29/2024 , Expires: 05/27/2025 Start: 05-28-2024 End: 05-28-2024 Patient encounter procedure 05/28/2024 2:40 PM EDT Office Visit [facility] [address] [place] [address] Trever Barnard DPM [address] [address] [facility] Start: 05-14-2024 End: 05-14-2024 Patient encounter procedure 05/14/2024 4:20 PM EDT Office Visit [facility] [address] [place] [address] Trever Barnard DPM [address] [address] [facility] Start: 05-13-2024 End: 05-13-2024 Patient encounter procedure 05/13/2024 3:00 PM EDT Office Visit [facility] [address] [place] [phone] Gita Garcia, PA [address] [place] [address] Arrived [facility] Comment on above: Arrived Start: 05-13-2024 End: 07-13-2025 DBT Breast - bilateral screening Bilateral screening mammogram with tomosynthesis Imaging Routine Encounter for screening mammogram for malignant neoplasm of breast Expected: 05/13/2024, Expires: 07/13/2025 [facility] Work Phone: Comment on above: Expected: 05/13/2024 , Expires: 07/13/2025 Start: 05-03-2024 Influenza vaccination Influenza Vacc ine (#1) [facility] Start: 04-09-2024 End: 04-09-2024 Patient encounter procedure 04/09/2024 9:35 AM EDT Office Visit [facility] [address] [place] [phone] Lubna Lawrence APRN-PRISCILLA [address] [place] [address] [facility] Start: 03-31-2024 End: 03-31-2024 Patient encounter procedure 03/31/2024 9:45 AM EDT Office Visit [facility] [address] [place] [address] Lenny Snow, [address] [place] [address] [facility] Start: 11-15-2023 End: 11-15-2023 Patient encounter procedure 11/15/2023 8:30 AM EDT Office Visit [facility] [address] [place] [phone] Gita Garcia PA [address] [facility] [address] [place] [address] [facility] Start: 10-14-2023 End: 10-14-2023 Patient encounter procedure 10/14/2023 8:30 AM EST Office Visit [facility] [address] [place] [address] Lubna Lawrence APRN-COURT MONITOR [address] [place] [address] [facility] Start: 10-04-2023 End: 10-04-2024 CBC W Auto Differential panel - Blood CBC and differential Lab Routine Wellness examination Iron deficiency Thrombocythemia Anemia, unspecified type Expected: 10/04/2023 (Approximate), Expires: 10/04/2024 [facility] Work Phone: Comment on above: Expected: 10/04/2023 (Approximate), Expires: 10/04/2024 Start: 10-04-2023 End: 10-04-2024 Comprehensive metabolic 2000 panel - Serum or Plasma Comprehensive metabolic panel Lab Routine Wellness examination Ankle edema Elevated ALT measurement Mixed hyperlipidemia (CMS/HCC) Expected: 10/04/2023 (Approximate), Expires: 10/04/2024 [facility] Comment on above: Expected: 10/04/2023 (Approximate), Expires: 10/04/2024 Start: 10-04-2023 End: 10-04-2024 Hemoglobin A1c measurement Hemoglobin A1c Lab Routine Wellness examination Impaired fasting glucose History of gestational diabetes Expected: 10/04/2023 (Approximate), Expires: 10/04/2024 [facility] Comment on above: Expected: 10/04/2023 (Approximate), Expires: 10/04/2024 Start: 10-04-2023 End: 10-04-2024 Iron + transferrin + TIBC Iron + transferrin + TIBC Lab Routine Wellness examination Iron deficiency Anemia, unspecified type Expected: 10/04/2023 (Approximate), Expires: 10/04/2024 [facility] Comment on above: Expected: 10/04/2023 (Approximate), Expires: 10/04/2024 Start: 10-04-2023 End: 10-04-2024 Lipid 1996 panel - Serum or Plasma Lipid panel Lab Routine Wellness examination Elevated ALT measurement Mixed hyperlipidemia (CMS/HCC) Expected: 10/04/2023 (Approximate), Expires: 10/04/2024 [facility] Comment on above: Expected: 10/04/2023 (Approximate), Expires: 10/04/2024 Start: 10-04-2023 End: 10-04-2024 TSH W/REFLEX TO FT4 TSH W/REFLEX TO FT4 Lab Routine Wellness examination Tachycardia Weight gain Expected: 10/04/2023 (Approximate), Expires: 10/04/2024 [facility] Comment on above: Expected: 10/04/2023 (Approximate), Expires: 10/04/2024 Start: 10-04-2023 End: 10-04-2023 Patient encounter procedure 10/04/2023 8:00 AM EST Office Visit [facility] [address] [facility] [address] [place] [phone] Gita Garcia PA [address] [facility] [address] [place] [address] [facility] Start: 05-03-2023 Influenza vaccination Influenza Vacc ine (#1) [facility] Start: 12-09-2021 Screening for malign ant neoplasm of breast Mammogram [facility] Start: 1997 Screening for malign ant neoplasm of cervix Pap Smear [facility] Start: 1976 Screening for malign ant neoplasm of colon [facility] IGP, APT HPV,RFX 16/18,45 IGP, APT HPV,RFX 16/18,45 Lab Routine Screening for malignant neoplasm of cervix Ordered: 08/28/2024 [facility] Work Phone: Comment on above: Ordered: 08/28/2024 Immunizations Immunization Date Immunization Notes Care Provider Aretha wilde 03-10-2016 Rocephin 500 mg Jane Waller Other [facility] Other 02-17-2016 tetanus toxoid, reduced diphtheria toxoid, and acellular pertussis vaccine, adsorbed Gita Hemmer PA Work Phone: [facility] Work Phone: Payers Date Payer Category Payer Self-pay [id number] 2022 Blue Cross Blue Shield BCBS Memb er Subscriber Plan / Payer (Effective 2022-Present) Name: Linda Alvarado Relation to Subscriber: Spouse Name: BRIANNA ALVARADO Date of : 1973 (Home) Address: [address] [place] [id number] Payer ID: Not on file Type: Not on file Address: [address] [place] [id number] 2022 Unknown BCBS BCBS xxxxxx [id number] 2022-Present [id number] [place], [place] [id number] 2022 Blue Cross Blue Shield [id number] 1976 Unknown [id number] 2.16840.1.189571.3.579.2. 593 1976 Unknown [id number] 2.16840.1.199776.3.579.2. 593 1976 Unknown [id number] 2.16840.1.292541.3.579.2. 593 1976 Unknown [id number] 2.16840.1.323203.3.579.2. 593 1976 Unknown [id number] 2.16.840.1.882930.3.579.2. 647 1976 Unknown [id number] 2.16.840.1.507678.3.579.2. 1259 1976 Unknown [id number] 2.16.840.1.845454.3.579.2. 1259 1976 Unknown [id number] 2.16.840.1.998232.3.579.2. 1259 1976 Unknown [id number] 2.16.840.1.632709.3.579.2. 1259 1976 Unknown [id number] 2.16.840.1.175221.3.579.2. 9 1976 Unknown [id number] 2.16.840.1.037741.3.579.2. 9 1976 Unknown [id number] 2.16.840.1.028081.3.579.2. 1259 1976 Unknown [id number] 2.16.840.1.594792.3.579.2. 9 1976 Unknown [id number] 2.16.840.1.453681.3.579.2. 1259 1959 Unknown [id number] Unknown [id number] 2.16.840.1.663326.19 Unknown Copay Assistance Program [id number] Unknown [id number] 2.16.840.1.224688.3.579.2. 531 Unknown [id number] 2.16840.1.610153.3.579.2. 531 Unknown [id number] 2.16.840.1.730634.3.579.2. 531 Social History Date Type Detail Facility Unknown if ever smoked [facility] Other Start: 07-15-2023 End: 08-28-[address] [facility] Start: 03-13-2021 End: 10-14-2023 Tobacco smoking status NHIS Never smoked tobacco (finding) [facility] Start: 1975 Sex Assigned At Female F [facility] Start: 03-27-2023 End: 10-14-2023 Tobacco use and exposure Smokeless tobacco non-user [facility] Start: 07-15-2023 End: 08-28-2024 Alcohol intake Lifetime non-drinker (finding) [facility] Start: 07-15-2023 End: 08-28-2024 History of Social function [facility] Within the last year , have you been afraid of your partner or ex-partner? No [facility] Do you belong to any clubs or organizations such as anglican groups, unions, [place] [employer] or athletic groups, or school groups? Yes [...] file [facility] Start: 07-16-2024 End: 12-28-2024 Sex Female (finding) [facility] NEGATED: Highlighted rowStart: SOPHIEF History of tobacco use Passive smoker [facility] Goals Date Patient Goal Desired Activity /State Personal health goal Clinical Notes 11-18-2020 to 01-05-2025 Telephone Encounter - LISHA Grayson - 01/05/2025 11:28 AM EDTTelephone Encounter - IRVING COLEMAN - 01/05/2025 11:03 AM EDTTelephone Encounter - LISHA Grayson - 01/05/2025 11:28 AM EDT Note Date & Type Note Facility 01-05-2025 Miscellaneous Notes Diflucan sent. Patient called asking for medication for a yeast infection. She was seen at the urgent Care for Cellulitis and they gave her an antibiotic. She would like diflucan sent in if possible. documented in this encounter [facility] 01-05-2025 Telephone encounter Note Diflucan sent. [facility] 01-05-2025 Telephone encounter Note Patient called asking for medication for a yeast infection. She was seen at the urgent Care for Cellulitis and they gave her an antibiotic. She would like diflucan sent in if possible. [facility] 12-09-2024 Note HPI Reported by patient. Hand Dominance: right Location: right tibial plateau ORIF [address] Ku, complains of pain to right knee joint, also complaints of right leg pain with radiculopathy, history of pars fracture last year treated by outside provider, CSI to right knee was quite helpful, here today to review MRI lumbar spine, Quality: improving Severity: mild-moderate right thigh Alleviating Factors: no issues Aggravating Factors: cannot identify Associated Symptoms: no weakness; no numbness; no tingling; no swelling; no redness; no warmth; no ecchymosis; no catching/locking; no popping/clicking Previous Surgery: surgical procedure:see above Prior Imaging: x ray; MRI ROS Patient reports arthralgias/joint pain . reports no fever and no chills. reports no chest pain. reports no numbness and no weakness. Physical Exam Patient is a 49 yo female Constitutional: General Appearance: NAD and comfort comfortable. Psychiatric: Orientation: oriented to time, place, and person. Mood and Affect: normal affect and mood and active and alert. Gait and Station: Appearance: no assistive devices Cardiovascular System: Extremities warm and well perfused Lymph Nodes: Mood and Affect: mood and affect normal. Skin: Intact Neurologic: Sensation: grossly intact. Head: Head: normocephalic and atraumatic. Neck: Neck: trachea midline. Lungs: Respiratory effort: no dyspnea. Knee Musculoskeletal Exam Inspection Right Erythema: none Effusion: none Edema: none Ecchymosis: none Left Erythema: none Effusion: none Edema: none Ecchymosis: none Palpation Right Increased warmth: none Masses: none Crepitus: none Tenderness: present Lateral joint line: moderate Medial joint line: moderate Left Increased warmth: none Masses: none Crepitus: none Palpation additional comments: No ttp over hardware Range of Motion Right Active extension: 0 Active flexion: 105 Strength Right Extension: 5/5. General Constitutional: appears stated age Scleral icterus: no Labored breathing: no Psychiatric: normal mood and affect Neurological: alert and oriented x3 Skin: intact Spine Musculoskeletal Exam Inspection Thoracolumbar Erythema: none Swelling: none Edema (left lower extremity): none Ecchymosis: none Palpation Thoracolumbar Right Masses: none Spasms: mild Crepitus: none Range of Motion Thoracolumbar Flexion detail: pain. Extension detail: pain. Right Lateral bending detail: pain. Sensory Thoracolumbar Thoracolumbar sensation is normal. General Constitutional: appears stated age Scleral icterus: no Labored breathing: no Psychiatric: normal mood and affect Neurological: alert and oriented x3 Skin: intact Xrays Obtained and reviewed by me today hardware in place right knee, post-traumatic OA, No instability to lumbar spine MRI lumbar spine dated shows L1-2 right side disc protrusion Diagnosis Plan 1. Protrusion of lumbar intervertebral disc L1-2 on right 2. Degeneration of intervertebral disc of lumbar region with discogenic back pain and lower extremity pain 3. Spondylolysis of lumbar region 4. Scoliosis of lumbar spine, unspecified scoliosis type Plan Mobic Flexeril Right knee CSI helpful Pain management lumbar spine PT exercises [facility] 11-30-2024 Note HPI Reported by patient. Hand Dominance: right Location: right tibial plateau ORIF [address] Ku, complains of pain to right knee joint, also complaints of right leg pain with radiculopathy, history of pars fracture last year Quality: improving Severity: mild Alleviating Factors: no issues Aggravating Factors: cannot identify Associated Symptoms: no weakness; no numbness; no tingling; no swelling; no redness; no warmth; no ecchymosis; no catching/locking; no popping/clicking Previous Surgery: surgical procedure:see above Prior Imaging: x ray; MRI ROS Patient reports arthralgias/joint pain . reports no fever and no chills. reports no chest pain. reports no numbness and no weakness. Physical Exam Patient is a 49 yo female Constitutional: General Appearance: NAD and comfort comfortable. Psychiatric: Orientation: oriented to time, place, and person. Mood and Affect: normal affect and mood and active and alert. Gait and Station: Appearance: no assistive devices Cardiovascular System: Extremities warm and well perfused Lymph Nodes: Mood and Affect: mood and affect normal. Skin: Intact Neurologic: Sensation: grossly intact. Head: Head: normocephalic and atraumatic. Neck: Neck: trachea midline. Lungs: Respiratory effort: no dyspnea. Knee Musculoskeletal Exam Inspection Right Erythema: none Effusion: none Edema: none Ecchymosis: none Left Erythema: none Effusion: none Edema: none Ecchymosis: none Palpation Right Increased warmth: none Masses: none Crepitus: none Tenderness: present Lateral joint line: moderate Medial joint line: moderate Left Increased warmth: none Masses: none Crepitus: none Palpation additional comments: No ttp over hardware Range of Motion Right Active extension: 0 Active flexion: 105 Strength Right Extension: 5/5. General Constitutional: appears stated age Scleral icterus: no Labored breathing: no Psychiatric: normal mood and affect Neurological: alert and oriented x3 Skin: intact Spine Musculoskeletal Exam Inspection Thoracolumbar Erythema: none Swelling: none Edema (left lower extremity): none Ecchymosis: none Palpation Thoracolumbar Right Masses: none Spasms: mild Crepitus: none Range of Motion Thoracolumbar Flexion detail: pain. Extension detail: pain. Right Lateral bending detail: pain. Sensory Thoracolumbar Thoracolumbar sensation is normal. General Constitutional: appears stated age Scleral icterus: no Labored breathing: no Psychiatric: normal mood and affect Neurological: alert and oriented x3 Skin: intact Xrays Obtained and reviewed by me today hardware in place right knee, post-traumatic OA, No instability to lumbar spine Patient ID: Linda Alvarado is a 49 y.o. female. Large Joint: R knee on 11/30/2024 3:18 PM Indications: pain Details: 21 G needle, medial approach Outcome: tolerated well, no immediate complications 5ml lidocaine 1% 1ml kenalog 10mg/ml Procedure, treatment alternatives, risks and benefits explained, specific risks discussed. Consent was given by the patient. Immediately prior to procedure a time out was called to verify the correct patient, procedure, equipment, applications support engineer and site/side marked as required. Patient was prepped and draped in the usual sterile fashion. Plan Mobic Flexeril Right knee CSI PT exercises Follow up next few weeks with actual MRI films lumbar spine for review [facility] 10-28-2024 Evaluation note Diagnosis Onset Date Resolution Hypnagogic hallucinations acute October 28, 2 025 3:34pm Narcolepsy and cataplexy acute October 28, 2024 3:34pm ROBYN (obstructive sleep apnea) acute October 28, 2 025 3:34pm Sleep paralysis acute October 28, 2024 3:34pm [facility] Work Phone: 1(755) 488-220712-27-2024 History of Present illness Narrative* Leny Sheets MA - 08/28/2024 11:30 AM EST Images from the original note were not included. Lenny Snow, DO Obstetrics and Gynecology Linda Alvarado 1975 08/28/24 [id number] Yearly Wellness Exam Chief Complaint Patient presents [...] by mouth in the morning and 1 capsule(40 mg) before bedtime. 180 capsule 3 potassium [...] History: Diagnosis Date Abnormal ECG 12/2018 Asthma ([facility]) Comminuted fracture of shaft of tibia 07/06/2019 RT COVID-19 05/2021 Ectopic 2010 Fracture of tibial plateau GDM (gestational diabetes mellitus) Infertility counseling Miscarriage 2010 OCD (obsessive compulsive disorder) ([facility]) ROBYN (obstructive sleep apnea) Seasonal [...] palpable bilaterally, normal nipples bilaterally - everted - finely cystic - dense- well supported- axilla negative. ABDOMEN: soft, nontender, nondistended, no masses palpable. BACK: no costovertebral angle tenderness, no obvious scoliosis/kyphosis. 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 Signature Cornelio Snow D.O. Date 08/28/24 Time 5:00PM. documented in this encounterSt. Louis Behavioral Medicine [id number] Evaluation note* Diagnosis Onset Date Resolution Status Admit Date GERD (gastroesophageal reflu x disease) acute August 03 3:24pm Mild intermittent asthma, uncomplicated acute August 03 3:24pm Seasonal allergies acute Decemb er 2023 3:24pm Acute sinusitis acute August 22, 2024 10:23am Asthma exacerbation acute Decem 2023 10:23am [facility] Work Phone: 1(803) 794-355311-11-2024 Telephone encounter Note* Telephone Encounter - LISHA Grayson - 07/13/2024 2:[address] [facility] [id number] Miscellaneous Notes* Telephone Encounter - LISHA Grayson - 07/13/2024 2:42 PM EST Sent * Telephone Encounter - Iqra Hutchins MA - 07/13/2024 9:17 AM EST Pt lm on asking if a refill of medrol tomer could be sent in again as her feet are swelling again documented in this encounterNOMercy Hospital St. [id number] Telephone encounter Note* Telephone Encounter - Iqra Hutchins MA - 07/13/2024 9:17 AM EST Pt lm on asking if a refill of medrol tomer could be sent in again as her feet are swelling again [facility] [id number] History of Present illness Narrative* Trever Barnard [...] History: Diagnosis Date Abnormal ECG 12/2018 Asthma ([facility]) Comminuted fracture of shaft of tibia 07/06/2019 RT COVID-19 05/2021 Ectopic 2010 Fracture of tibial plateau GDM (gestational diabetes mellitus) Infertility counseling Miscarriage 2010 OCD (obsessive compulsive disorder) ([facility]) ROBYN (obstructive sleep apnea) Seasonal [...] Master's degree (e.g., MA, MS, Grisel, MEd, HISTOLOGY ASSISTANT, LEONEL) Occupational 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 Trever Barnard DPM documented in this encounterSt. Louis Behavioral Medicine [id number] Telephone encounter Note* Telephone Encounter - LISHA Grayson - 06/13/2024 9:33 AM EDT Please let pt know that her recent lab showed her potassium is back in normal range. Continue potassium supplement. [facility] [id number] Miscellaneous Notes* Telephone Encounter - LISHA Grayson - 06/13/2024 9:33 AM EDT Please let pt know that her recent lab showed her potassium is back in normal range. Continue potassium supplement. documented in this encounterSt. Louis Behavioral Medicine [id number] History of Present illness Narrative* LISHA Grayson - 06/03/2024 4:00 PM EDT Images from the original note were not included. Subjective Patient ID: Linda Alvarado is a 48 y.o. female who presents for a follow up of [facility] on 05/30. She went to [facility] for hypokalemia. Linda is present today for a follow up of [facility] for hypokalemia, she states her [...] 3 months (around 09/03/2024). documented in this encounterSt. Louis Behavioral Medicine [id number] Telephone encounter Note* Telephone Encounter - Tracy Villareal NP - 05/31/2024 10:01 AM EDT The pt was contacted today to see how she was feeling. She is inpatient at [facility]. She has been given IV potassium and magnesium. Possible Dc today. [facility] Work Phone: [phone]) 175-492209-29-2024 Miscellaneous Notes* Telephone Encounter - Tracy Villareal NP - 05/31/2024 10:01 AM EDT The pt was contacted today to see how she was feeling. She is inpatient at [facility]. She has been given IV potassium and [...] the ER. Patient advised. documented in this encounterSt. Louis Behavioral Medicine [id number] Telephone encounter Note* Telephone Encounter - Myron [...] should go to the ER. Patient advised. [facility] [id number] History of Present illness Narrative* Trever Vasques Timmy, DPM - 05/28/2024 2:40 PM EDT Patient: Linda Alvarado : 1975 [...] History: Diagnosis Date Abnormal ECG 12/2018 Asthma ([facility]) Comminuted fracture of shaft of tibia 07/06/2019 RT COVID-19 05/2021 Ectopic 2010 Fracture of tibial plateau GDM (gestational diabetes mellitus) Infertility counseling Miscarriage 2010 OCD (obsessive compulsive disorder) ([facility]) ROBYN (obstructive sleep apnea) Seasonal [...] Master's degree (e.g., MA, MS, Grisel, MEd, HISTOLOGY ASSISTANT, LEONEL) 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 Trever Barnard DPM documented in this [facility]09-25-2024 Telephone encounter Note* Telephone Encounter - Tracy Villareal NP - 05/27/2024 7:42 PM EDT See orders [facility] [employer] Work Phone: [phone]) 828-494709-25-2024 Miscellaneous Notes* Telephone Encounter - Tracy Villareal NP - 05/27/2024 7:42 PM EDT See orders documented in this [facility]09-25-2024 Telephone encounter Note* Telephone Encounter - Tracy Villareal NP - 05/27/2024 6:09 PM EDT Pt called to inform of a critically low potassium level at 2.6 today. Advised to take 40 meq x 1 now, continue 40 meq bid and Saturday am, repeat k+ level Saturday am. [facility] [id number] Miscellaneous Notes* Telephone Encounter - Tracy Villareal NP - 05/27/2024 6:09 PM EDT Pt called to inform of a critically low potassium level at 2.6 today. Advised to take 40 meq x 1 now, continue 40 meq bid and Saturday am, repeat k+ level Saturday am. documented in this encounterSt. Louis Behavioral Medicine [id number] History of Present illness Narrative* Trever Barnard, RAMO - 05/14/2024 4:20 PM EDT Patient: Linda [...] History: Diagnosis Date Abnormal ECG 12/2018 Asthma ([facility]) Comminuted fracture of shaft of tibia 07/06/2019 RT COVID-19 05/2021 Ectopic 2010 Fracture of tibial plateau GDM (gestational diabetes mellitus) Infertility counseling Miscarriage 2010 OCD (obsessive compulsive disorder) ([facility]) ROBYN (obstructive sleep apnea) Seasonal [...] Master's degree (e.g., MA, MS, Grisel, MEd, HISTOLOGY ASSISTANT, LEONEL) 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 Discussed condition in detail. Recommendation for cymi-poj-dtgoiou compression stockings at this time and may consider prescription stockings in the future. Trever Barnard DPM documented in this encounterSt. Louis Behavioral Medicine [id number] History of Present illness Narrative* LISHA Grayson [...] wide feet. States she is seeing a Farm Management Professor tomorrow, Dr. Trever Barnard. Does not elevate [...] or fail to improve. documented in this encounterSt. Louis Behavioral Medicine [id number] History of Present illness Narrative* Lubna Lawrence APRN-COURT MONITOR - 10/14/2023 8:30 AM EST Images from [...] Next Visit: 1 year documented in this encounterSt. Louis Behavioral Medicine [id number] Evaluation note* Encounter Date Diagnosis Assessment Notes Treatment Notes Treatment Clinical Notes Oct, ROBYN (obstructive sleep apnea) (ICD-10 - G47.33) [facility] Other 02-02-2024 History of Present illness Narrative* [...] counseling Miscarriage 2011 OCD (obsessive compulsive disorder) ([facility]) ROBYN (obstructive sleep apnea) Seasonal allergies Past [...] daytime sleepiness The patient is seeing a biomedical engineering supervisor for this condition, treatment is deferred to that specialist. Correspondence from that specialist and any available testing were reviewed during today's visit. Obstructive sleep apnea The patient is seeing a biomedical engineering supervisor for this condition, treatment is deferred to [...] Female infertility The patient is seeing a biomedical engineering supervisor for this condition, treatment is deferred to [...] tibial fracture The patient is seeing a biomedical engineering supervisor for this condition, treatment is deferred to [...] (around 11/15/2023) for Recheck. documented in this encounterSt. Louis Behavioral Medicine [id number] Evaluation note* Encounter Date Diagnosis Assessment Notes [...] but has reported symptoms in the past [facility] Other 11-28-2023 Evaluation note* Encounter Date Diagnosis Assessment Notes Treatment Notes Treatment Clinical Notes Jul, Mild intermittent asthma, uncomplicated (ICD-10 - J45.20) [facility] Other 10-12-2023 Evaluation note* Encounter Date Diagnosis Assessment Notes Treatment Notes Treatment Clinical Notes Jun, ROBYN (obstructive sleep apnea) (ICD-10 - G47.33) [facility] Other 10-02-2023 Evaluation note* Encounter Date Diagnosis Assessment Notes Treatment Notes Treatment Clinical Notes Jun, ROBYN (obstructive sleep apnea) (ICD-10 - G47.33) [facility] Other 08-01-2023 Evaluation note* Encounter Date Diagnosis [...] is present Apr, Cataplexy (ICD-10 - G47.411) [facility] Other 07-10-2023 Evaluation note* Encounter Date Diagnosis Assessment Notes Treatment Notes Treatment Clinical Notes Mar, Mild intermittent asthma, uncomplicated (ICD-10 - J45.20) [facility] Other 2023 Evaluation note* Encounter Date Diagnosis [...] night before attempted MSLT. Her persistent elevated Lipscomb sleepiness score, at 17, continues to show [...] have not gotten the PSG MSLT documentation [facility] Other 03-23-2023 Evaluation note* Encounter Date Diagnosis Assessment Notes Treatment Notes Treatment Clinical Notes Oct, ROBYN (obstructive sleep apnea) (ICD-10 - G47.33) [facility] Other 12-27-2022 Evaluation note* Encounter Date Diagnosis Assessment Notes Treatment Notes Treatment Clinical Notes Aug, ROBYN (obstructive sleep apnea) (ICD-10 - G47.33) [facility] Other 11-01-2022 Evaluation note* Encounter Date Diagnosis [...] sleepiness does suggest the diagnosis of narcolepsy [facility] Other 09-22-2022 Evaluation note* Encounter Date Diagnosis Assessment Notes Treatment Notes Treatment Clinical Notes May, ROBYN (obstructive sleep apnea) (ICD-10 - G47.33) [facility] Other 07-18-2022 Evaluation note* Encounter Date Diagnosis Assessment Notes Treatment Notes Treatment Clinical Notes Mar, Mild intermittent asthma, uncomplicated (ICD-10 - J45.20) Take Breo 1 inhalation daily if you run out of Advair. [facility] Other 06-24-2022 Evaluation note* Encounter Date Diagnosis Assessment Notes Treatment Notes Treatment Clinical Notes Jan, ROBYN (obstructive sleep apnea) (ICD-10 - G47.33) [facility] Other 06-23-2022 Evaluation note* Encounter Date Diagnosis [...] multiple sleep latency test is likely indicated [facility] Other 03-25-2022 Evaluation note* Encounter Date Diagnosis Assessment Notes Treatment Notes Treatment Clinical Notes Oct, Narcolepsy and cataplexy (ICD-10 - G47.411) [facility] Other 01-07-2022 Evaluation note* Encounter Date Diagnosis Assessment Notes Treatment Notes Treatment Clinical Notes Sep, Mild intermittent asthma, uncomplicated (ICD-10 - J45.20) [facility] Other 01-07-2022 Evaluation note* Encounter Date Diagnosis Assessment Notes Treatment Notes Treatment Clinical Notes Sep, Narcolepsy and cataplexy (ICD-10 - G47.411) [facility] Other 12-21-2021 Evaluation note* Encounter Date Diagnosis [...] have significant positive effects on sleep apnea [facility] Other 12-18-2021 Evaluation note* Encounter Date Diagnosis Assessment Notes Treatment Notes Treatment Clinical Notes Aug, Cellulitis of right lower extremity (ICD-10 - L03.115) Use medications as directed. Cover area as instructed. May use gently cleanser to area between daily application as instructed.. Follow up with primary care provider if no improvement of symptoms or if symptoms worsen. [facility] Other 12-01-2021 Evaluation note* Encounter Date Diagnosis Assessment Notes Treatment Notes Treatment Clinical Notes Aug, Narcolepsy and cataplexy (ICD-10 - G47.411) [facility] Other 10-29-2021 Evaluation note* Encounter Date Diagnosis Assessment Notes Treatment Notes Treatment Clinical Notes Jun, Narcolepsy and cataplexy (ICD-10 - G47.411) [facility] Other 09-30-2021 Evaluation note* Encounter Date Diagnosis [...] PAP for ROBYN and med for narcolepsy [facility] Other 07-12-2021 Progress note Author John Cowan [facility] March 13, 2021 9:57am Note Date/Time March 13, 2021 9:43 am [facility] [place] [address] Hem/Onc Follow Up Note - OP Signed Patient: Linda Alvarado MR#: [id number] : 1975 Acct:[id number] Age/Sex: 45 / F Type: REG RCR Copies to: MD Gita Navarrete II, ETTA~ Subjective Date/Time of Service: Date of Service: 03/13/2021 Time of Service: 09:37 Chief Complaint: Patient is here for a 4 month follow up for thrombocytosis withlabs 03/08/2021 for review. No concerns are voiced at this time. HPI: 45-year-old female primary patient of Gita Garcia nurse practitioner in [facility]. She is referred for mild thrombocytosis, then [...] lymphoma in her 40s. at 61 of [place]. She had 6 first trimester miscarriages, one [...] of frequent infections or delayed wound healing.] [facility] - Medical History Medical History: Medical History [...] % (Auto) 67.8, Lymph % (Auto) 21.7, [place] % (Auto) 6.5, Eos % (Auto) 2.9, Baso % (Auto) 1.1, Neut # (Auto) 5.7, Lymph # (Auto) 1.8, [place] # (Auto) 0.5, Eos # (Auto) 0.2, [...] for coordination of care (as documented) and onpo-nu-hzym counseling of patient and/or family. Dictated By: John Cowan MD DD/ 0937 Signed By: <Electronically signed by John Cowan MD> 03/13/21 0957 [facility] Work Phone: 1(522) 957-145803-19-2021 Progress note Author Cheng Almaguer [facility] November 18, 2020 5:11pm Note Date/Time November 18, 2020 2:4 6pm [facility] [place] [address] Hem/Onc Follow Up Note - OP Signed with Brandon Patient: Linda Alvarado MR#: [id number] : 1975 Acct:[id number] Age/Sex: 45 / F Type: REG RCR [...] patient of Gita Garcia nurse practitioner in [facility]. She is referred for thrombocytosis. Past medical [...] lymphoma in her 40s. at 61 of [place]. She had 6 first trimester miscarriages, one [...] known thrombosis. she has never had mammogram. [facility] - Medical History Medical History: Medical History [...] for coordination of care (as documented) and czmg-ha-dcps counseling of patient and/or family. Attestation Statement - Physician Attestation cbc, cmp, ferritin, iron, iron sat. Jak2. she will call to discsuss results. f/u with me 1 year. Dictated By: Cheng Almaguer II, DO DD/ 1445 Signed By: <Electronically signed by Cheng Almaguer II, DO> 11/18/20 3021 [facility] Work Phone: 1([phone]) 294-293703-19-2021 Progress note Author Cheng Almaguer [facility] November 18, 2020 5:10pm Note Date/Time November 18, 2020 5:1 0pm [facility] [place] [id number] Hem/Onc Follow Up Note - OP Signed Patient: Linda Alvarado MR#: [id number] : 1975 Acct:[id number] Age/Sex: 45 / F Type: REG RCR Copies to: MD Gita Navarrete II, PA-C~ Subjective Date/Time of Service: Date of Service: 11/18/2020 Time of Service: 17:09 Chief Complaint: Patient is here today for a referral from LISHA Dhaliwal for elevated platelets HPI: 45-year-old female primary patient of Gita Garcia nurse practitioner in [facility]. She is referred for thrombocytosis. Past medical [...] lymphoma in her 40s. at 61 of [place]. She had 6 first trimester miscarriages, one [...] known thrombosis. she has never had mammogram. [facility] - Medical History Medical History: Medical History [...] % (Auto) 70.1, Lymph % (Auto) 22.2, [place] % (Auto) 4.9, Eos % (Auto) 2.0, Baso % (Auto) 0.8, Neut # (Auto) 7.4, Lymph # (Auto) 2.3, [place] # (Auto) 0.5, Eos # (Auto) 0.2, [...] for coordination of care (as documented) and imdx-th-ijju counseling of patient and/or family. Attestation Statement - Physician Attestation We will give 2 doses of IV Injectafer and follow-up with me in 3 months. Prior to follow-up check CBC, CMP, iron, ferritin, iron binding capacity. Dictated By: Cheng Almaguer II, DO DD/ 1709 Signed By: <Electronically signed by Cheng Almaguer II, DO> 11/18/20 1710 [facility] Work Phone: Evaluation noteNo assessment information available [facility] Work Phone: Evaluation noteNo InformationNoozarks medical center [employer] Other Evaluation note* Diagnosis Wellness examination- Primary [...] Status Cellulitis of left lower leg noneactive [facility] Work Phone: Evaluation note* Diagnosis Onset Date Resolution Status Cellulitis of left lower leg noneactive Dysuria noneactive [facility] Work Phone: Evaluation note* Diagnosis Onset Date Resolution Status Cellulitis of left lower leg noneactive Abdominal pain acute Hypnagogic hallucinations ac la posta Narcolepsy and cataplexy acu te OCD (obsessive compulsive disorder) acute ROBYN (obstructive sleep apnea) acute Sleep paralysis acute [facility] Work Phone: Evaluation note* Diagnosis Ankle edema- [...] without abnormal findings documented in this encounter [facility] HealthcareEvaluation note* Diagnosis Peg infection- Primary Candidiasis of unspecified site documented in this encounter [facility] HealthcareHistory general [...] History C section Hospitalization History see above [facility] Other History general Narrative - Reported* Type [...] History C section Hospitalization History see above [facility] Other History general Narrative - Reported* Type Description Date Medical History allergies Medical History asthma Medical History OCD (obsessive compulsive disord er) Medical History Herpes Medical History ROBYN -Auto BiPAP Medical History suspected narcolepsy - EDS, clinical cataplexy, inconclusive PSG/MSLT Surgical History D&C Surgical History cholecystectomy Surgical History carpal tunnel release Surgical History C section Hospitalization History see above [facility] Other Summary Purpose Family History Relationship Condition [...] Unknown father Myocardial infarction Unknown Advance Directives Advance Directive Response Recorded Date/ Time Advance Directives No June 03, 2017 10:15am Advance Directive Response Recorded Date/ Time Advance Directives No June 03, 2017 9:15am Hospital Course Note MR#: [id number] [facility] Pt. Name: Linda Alvarado Admitted: [...] 10:23am Asthma exacerbation August 22, 2024 10:23am Chief Complaint Admit Date ROBYN/ 3 MONTHS October 28, 2024 3:34pm Left leg pain, poss infection December 6:19pm Reason for Visit Admit Date Hypnagogic hallucinations October 28, 2024 3:34pm Narcolepsy and cataplexy October 28, 2024 3:34pm ROBYN (obstructive sleep apnea) October 042024 3:34pm Sleep paralysis October 28, 2024 3:34pm Reason for Referral Specialty Diagnoses / Procedures Referred By Shena david Referred To Contact Radiology Diagnoses Ankle edema Abnormal electrocardiogram Procedures Transthoracic Echo (TTE) Complete Gita Garcia PA [address] [facility] [address] [place] [address] [facility] [address] [place] [address] Phone: [phone] Referral ID Status Reason Start Date Expiration Date Visits Requested Visits Authorized [id number] Incomplete Perform Procedure 06/03/2024 11/30/2024 1 1 Additional Source Comments INFORMATION SOURCE (unrecogn ized section and content) DATE CREATED AUTHOR 03/28/2018 [facility] DATE CREATED AUTHOR AUTHOR'S ORGANIZ ATION 03/29/2018 [facility] DATE CREATED AUTHOR AUTHOR'S ORGANIZ ATION 07/08/2019 [facility] DATE CREATED AUTHOR AUTHOR'S ORGANIZ ATION 04/05/2020 [facility] DATE CREATED AUTHOR AUTHOR'S ORGANIZ ATION 09/19/2021 [facility] dical Specialist DATE CREATED AUTHOR AUTHOR'S ORGANIZ ATION 06/25/2024 [facility] DATE CREATED AUTHOR AUTHOR'S ORGANIZ ATION 11/01/2024 [facility] dical Specialists EPIC DATE CREATED AUTHOR AUTHOR'S ORGANIZ ATION 12/30/2024 [facility] REASON FOR VISIT (unrecogniz ed section and [...] Active Jane Waller MD Attending Provider Active Operations Representative Relationship Specialty Start Date End Date Elver Mendenhall MD [address] [facility] [address] [place] [address] PCP - General Internal Medicine 03/27/23 Operations Representative Relationship Specialty Start Date End Date Elver Mendenhall MD [address] [facility] [address] [place] [address] PCP - General Internal Medicine 03/27/23 Operations Representative Relationship Specialty Start Date End Date Elver Mendenhall MD [address] [facility] [address] [place] [address] PCP - General Internal Medicine 03/27/23 Team [...] May 20, 2024 End: May 20, 2024 Operations Representative Relationship Specialty Start Date End Date Elver Mendenhall MD [address] [facility] [address] [place] [address] PCP - General Internal Medicine 03/27/23 Operations Representative Relationship Specialty Start Date End Date Elver Mendenhall MD [address] [facility] [address] [place] [address] PCP - General Internal Medicine 03/27/23 Team [...] July 16, 2024 End: July 16, 2024 Operations Representative Relationship Specialty Start Date End Date Elver Mendenhall MD [address] [facility] [address] [place] [address] PCP - General Internal Medicine 03/27/23 Operations Representative Relationship Specialty Start Date End Date Elver Mendenhall MD [address] [facility] [address] [place] [address] PCP - General Internal Medicine 03/27/23 Operations Representative Relationship Specialty Start Date End Date Elver Mendenhall MD [address] [facility] [address] [place] [address] PCP - General Internal Medicine 03/27/23 Operations Representative Relationship Specialty Start Date End Date Elver Mendenhall MD [address] [facility] [address] [place] [address] PCP - General Internal Medicine 03/27/23 Operations Representative Relationship Specialty Start Date End Date Elver Mendenhall MD [address] [facility] [address] [place] [address] PCP - General Internal Medicine 03/27/23 Operations Representative Relationship Specialty Start Date End Date Elver Mendenhall MD [address] [facility] [address] [place] [address] PCP - General Internal Medicine 03/27/23 Operations Representative Relationship Specialty Start Date End Date Elver Mendenhall MD [address] [facility] [address] [place] [address] PCP - General Internal Medicine 03/27/23 Operations Representative Relationship Specialty Start Date End Date Elver Mendenhall MD [address] [facility] [address] [place] [address] PCP - General Internal Medicine 03/27/23 Team Status: Inactive Member Role Status Dates Gita Garcia NP-C Primary Care Provider Active Start: August 03, 2024 End: August 03, 2024 Ciera Mcwilliams APRN [facility] Attending Provider Active Start: August 03, 2024 [...] October 28, 2024 End: October 28, 2024 Team Status: Inactive Member Role Status Dates Gita Garcia NP-C Primary Care Provider Active Start: December 28, 2024 End: December 28, 2024 Abiola Rodríguez APRN Attending Provider Active Start: December 28, 2024 End: December 28, 2024 Operations Representative Relationship Specialty Start Date End Date Elver Mendenhall MD [address] [facility] [address] [place] [address] PCP - General Internal Medicine 03/27/23 Goals [...] BE BASED ON THE PRIMARY CLINICAL RECORDS. [facility] [employer] [facility]. provides no warranty or guarantee of the accuracy or completeness of information in this document.
[2025-01-16 14:34] LABS: Basophils Absolute Auto 0.1 10^3/uL (0.0-0.1); Eosinophils Absolute Auto 0.3 10^3/uL (0.0-0.7); Eosinophils Percent Auto 2.2 % (0.9-7.0); Hematocrit 42.8 % (36.0-48.0); Hemoglobin 14.6 g/dL (12.0-16.0); Immature Granulocytes Abs Auto 0.08 10^3/uL (0.00-0.03); Immature Granulocytes Pct Auto 0.7 % (0.0-0.5); Lymphocytes Absolute Auto 2.3 10^3/uL (1.2-3.8); Lymphocytes Percent Auto 19.4 % (20.5-60.0); Mean Corpuscular HGB Conc 34.1 g/dL (29.9-35.2); Mean Corpuscular Hemoglobin 32.9 pg (26.7-34.0); Mean Corpuscular Volume 96.4 fL (81.0-99.0); Monocytes Absolute Auto 0.8 10^3/uL (0.3-0.8); Monocytes Percent Auto 6.5 % (1.7-12.0); Neutrophils Absolute Auto 8.5 10^3/uL (1.4-6.5); Neutrophils Percent Auto 70.2 % (43.0-75.0); Platelet Count 413 10^3/uL (150-450); Red Blood Count 4.44 10^6/uL (4.20-5.40); Red Cell Distribution Width 12.9 % (11.0-15.0)
--- NOTE | 2025-01-16 14:34 | PC.NURSE ---
Reports bilateral ear pain and fullness for past couple of weeks. Dizziness started today.
[2025-01-16 14:41] LABS: HCG Qualitative NEGATIVE (NEGATIVE); Internal Control Within Normal Limits
[2025-01-16] MEDS: MECLIZINE HCL 12.5 MG TABLET 25 MG PO (14:45)
[2025-01-16 14:46] LABS: Alanine Aminotransferase 51 U/L (14-59); Albumin Level 3.6 g/dL (3.4-5.0); Alkaline Phosphatase 83 U/L (46-116); Anion Gap 13.7; Aspartate Amino Transferase 20 U/L (15-37); BUN Creatinine Ratio 15.2; Bilirubin Total 0.8 mg/dL (0.2-1.0); Calcium 8.9 mg/dL (8.5-10.1); Carbon Dioxide 27.9 mmol/L (21.0-32.0); Chloride 104 mmol/L (98-107); Estimated GFR (African America >60 (>=60 mL/min/1.73m^2); Estimated GFR (Non-African Ame >60 (>=60 mL/min/1.73m^2); Globulin 3.5 g/dL; Glucose 98 mg/dL (74-106); Potassium 3.6 mmol/L (3.5-5.1); Sodium 142 mmol/L (136-145); Total Protein 7.1 g/dL (6.4-8.2)
[2025-01-16] MEDS: KETOROLAC TROMETHAMINE 30 MG/ML VIAL 15 MG IVP (14:46)
[2025-01-16] MEDS: ONDANSETRON PF 4 MG/2 ML VIAL IV (14:46)
--- NOTE | 2025-01-16 15:02 | ED.EAR1 ---
HPI - Ear Problem General Chief complaint: Ear Stated complaint: VERTIGO NAUSEA EAR ACHE Time Seen by Provider: 01/16/25 13:40 Source: patient Mode of arrival: walk-in Limitations: no limitations History of Present Illness HPI Narrative: The patient is coming to the ER with few days history of nasal congestion associated with the bilateral ear discomfort mostly in the left than the right, also some decreased hearing in the left ear. 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 and her presentation today with viral illness could be secondary to exposure to some people in her school Related Data Home Medications ?Medication ?Instructions ?Recorded ?Confirmed atorvastatin 10 mg tablet 10 mg PO DAILY 05/03/23 01/16/25 citalopram 40 mg tablet 20 mg PO .qhs 05/03/23 01/16/25 diltiazem HCl 120 mg 120 mg PO .qhs 05/03/23 01/16/25 capsule,extended release 24 hr omeprazole 40 mg capsule,delayed 40 mg PO BID 05/03/23 01/16/25 release solriamfetol 150 mg tablet (Sunosi) 150 mg PO DAILY 05/03/23 01/16/25 valacyclovir 500 mg tablet 500 mg PO DAILY 05/03/23 01/16/25 eletriptan 40 mg tablet 40 mg PO Q2H PRN headache 05/30/24 01/16/25 fluticasone 500 mcg-salmeterol 50 1 inh inhalation BID 05/30/24 01/16/25 mcg/dose blistr powdr for inhalation fluticasone propionate 50 1 spray intranasal DAILY 05/30/24 01/16/25 mcg/actuation nasal spray,suspension Previous Rx's ?Medication ?Instructions ?Recorded potassium chloride 20 mEq 20 meq PO BID #60 tabs 05/31/24 tablet,extended release Held on 01/16/25. Instructions: Resume on 01/19/25. torsemide 10 mg tablet 10 mg PO QDAY PRN Lower Leg edema 05/31/24 #0 tabs amoxicillin 500 mg capsule 500 mg PO Q8H #15 caps 01/16/25 fluconazole 150 mg tablet 150 mg PO DAILY #1 tab 01/16/25 meclizine 25 mg tablet 25 mg PO TID PRN motion sickness 01/16/25 #20 tabs ondansetron 4 mg disintegrating 4 mg PO Q8H PRN nausea and 01/16/25 tablet vomiting 48 hours #6 tabs Allergies Allergy/AdvReac Type Severity Reaction Status Date / Time sulfamethoxazole (From Allergy unknown Verified 11/06/24 00:09 Bactrim) trimethoprim (From Bactrim) Allergy unknown Verified 11/06/24 00:09 Sulfa (Sulfonamide AdvReac Mild Unknown Verified 11/06/24 00:09 Antibiotics) Review of Systems ROS Status of ROS 10 or more systems reviewed and unremarkable except as noted in history and below [facility] Medical History (Updated 01/16/25 @ 15:03 by Malorie Hung MD) Morbid obesity ?E66.01 - Morbid (severe) obesity due to excess calories (ICD-10) HLD (hyperlipidemia) ?E78.5 - Hyperlipidemia, unspecified (ICD-10) ADHD ?F90.9 - Attention-deficit hyperactivity disorder, unspecified type (ICD-10) ROBYN (obstructive sleep apnea) ?G47.33 - Obstructive sleep apnea (adult) (pediatric) (ICD-10) HTN (hypertension) ?I10 - Essential (primary) hypertension (ICD-10) Peripheral edema ?R60.0 - Localized edema (ICD-10) Colonoscopy planned H/O acute cholecystitis ?Z87.19 - Personal history of other diseases of the digestive system (ICD-10) Cholecystectomy planned High blood cholesterol ?E78.00 - Pure hypercholesterolemia, unspecified (ICD-10) Asthma ?J45.909 - Unspecified asthma, uncomplicated (ICD-10) Abdominal pain ?R10.9 - Unspecified abdominal pain (ICD-10) Numbness and tingling ?R20.0 - Anesthesia of skin (ICD-10) ?R20.2 - Paresthesia of skin (ICD-10) Hypokalemia ?E87.6 - Hypokalemia (ICD-10) Surgical History (Updated 05/30/24 @ 23:42 by Dilshad Jc) History of orthopedic surgery ?Z98.890 - Other specified postprocedural states (ICD-10) Family History (Updated 05/30/24 @ 23:44 by Dilshad Jc) Mother Family history of myocardial infarction Family history of cancer Father Family history of myocardial infarction Social History Within the past year, how often did you have a drink containing alcohol: never Score interpretation: A score less than 3 is consistent with normal alcohol consumption. Smoking 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 smoker Non-prescribed substance use: denies use Highest level of school completed/degree received: high school graduate Little interest or pleasure in doing things: not at all Feeling down, depressed, or hopeless: not at all Exam Narrative Exam Narrative: Nurses notes and vital signs reviewed and patient is not hypoxic. General: Well-appearing and in no apparent distress. Skin: Warm, dry, no pallor noted. No rash. Head: Normocephalic, atraumatic. Neck: Supple, non-tender. Eye: Pupils are equal, round and EOMI. No scleral icterus. Ears, Nose, Mouth, and Throat: Right ear examination shows benign tympanic membrane with left ear examination showed serous fluid and erythema with bulging , there is nasal congestion and no hypertrophy. Horizontal nystagmus noted Cardiovascular: Regular Rate and Rhythm without murmur, gallop or rub. Respiratory: No accessory muscle use or respiratory distress. Lungs are clear to auscultation, no wheezing, rales or rhonchi Chest Wall: no tenderness Back: No midline thoracic or lumbar vertebral tenderness. No CVA tenderness Musculoskeletal: normal ROM, no calf or popliteal tenderness, no lower extremity edema/swelling GI: Abdomen is soft, non-distended. Normal bowel sounds. No masses appreciated. No tenderness to palpation. No rebound, guarding, or rigidity noted. Neurological: A&O x4. No cranial nerve dysfunction observed. Constitutional Vital Signs, click to edit/add: Last Vital Signs Temp 98.6 F 01/16/25 12:58 Pulse 87 01/16/25 12:58 Resp 18 01/16/25 12:58 BP 173/89 H 01/16/25 12:58 Pulse Ox 97 01/16/25 12:58 O2 Del Method Room Air 01/16/25 12:58 Course Vital Signs Vital signs: Vital Signs Temperature 98.6 F 01/16/25 12:58 Pulse Rate 87 01/16/25 12:58 Respiratory Rate 18 01/16/25 12:58 Blood Pressure 173/89 H 01/16/25 12:58 Pulse Oximetry 97 01/16/25 12:58 Oxygen Delivery Method Room Air 01/16/25 12:58 Temperature 98.6 F 01/16/25 12:58 Pulse Rate 87 01/16/25 12:58 Respiratory Rate 18 01/16/25 12:58 Blood Pressure 173/89 H 01/16/25 12:58 Pulse Oximetry 97 01/16/25 12:58 Oxygen Delivery Method Room Air 01/16/25 12:58 Medical Decision Making MDM Narrative Medical decision making narrative: The patient blood pressure was 140 systolic in the bedside The patient CBC and chemistry showed no acute pathology she does have a history of hypokalemia and she usually take potassium supplement Right now the patient was provided with Zofran in the ER started on amoxicillin to treat a possible otitis media in addition to being discharged home with Zofran and started on meclizine the patient instructed about stopping taking her potassium supplement right now for the next 2 days while she is taking meclizine to avoid interaction Patient also provided with Diflucan 1 dose 150 mg because she have a history of yeast infection after antibiotic treatment The patient is to follow up with primary care physician in next 2-3 days or to return to the emergency department should any of the signs or symptoms worsen or new symptoms develop. The patient agrees with the following Diagnosis and Treatment plan and the patient will be discharged home. Lab Data Labs: Lab Results 01/16/25 Range/Units 13:32 WBC 12.0 H (4.0-11.0) 10^3/uL RBC 4.44 (4.20-5.40) 10^6/uL Hgb 14.6 (12.0-16.0) g/dL Hct 42.8 (36.0-48.0) % MCV 96.4 (81.0-99.0) fL MCH 32.9 (26.7-34.0) pg MCHC 34.1 (29.9-35.2) g/dL RDW 12.9 (11.0-15.0) % Plt Count 413 (150-450) 10^3/uL MPV 9.0 L (9.5-13.5) fL Neut % (Auto) 70.2 (43.0-75.0) % Lymph % (Auto) 19.4 L (20.5-60.0) % [place] % (Auto) 6.5 (1.7-12.0) % Eos % (Auto) 2.2 (0.9-7.0) % Baso % (Auto) 1.0 (0.2-2.0) % Neut # (Auto) 8.5 H (1.4-6.5) 10^3/uL Lymph # (Auto) 2.3 (1.2-3.8) 10^3/uL [place] # (Auto) 0.8 (0.3-0.8) 10^3/uL Eos # (Auto) 0.3 (0.0-0.7) 10^3/uL Baso # (Auto) 0.1 (0.0-0.1) 10^3/uL Abs Immat Gran (auto) 0.08 H (0.00-0.03) 10^3/uL Imm/Tot Granulo (auto) 0.7 H (0.0-0.5) % Sodium 142 (136-145) mmol/L Potassium 3.6 (3.5-5.1) mmol/L Chloride 104 (98-107) mmol/L Carbon Dioxide 27.9 (21.0-32.0) mmol/L Anion Gap 13.7 BUN 14.0 (7.0-18.0) mg/dL Creatinine 0.92 (0.55-1.02) mg/dL Est GFR ( Amer) >60 (>=60 mL/min/1.73m^2) Est GFR (Non-Af Amer) >60 (>=60 mL/min/1.73m^2) BUN/Creatinine Ratio 15.2 Glucose 98 (74-106) mg/dL Calcium 8.9 (8.5-10.1) mg/dL Total Bilirubin 0.8 (0.2-1.0) mg/dL AST 20 (15-37) U/L ALT 51 (14-59) U/L Alkaline Phosphatase 83 (46-116) U/L Total Protein 7.1 (6.4-8.2) g/dL Albumin 3.6 (3.4-5.0) g/dL Globulin 3.5 g/dL Albumin/Globulin Ratio 1.0 Serum HCG, Qual Negative (NEGATIVE) Discharge Plan Discharge Chief Complaint: Ear Clinical Impression: Otitis media, Vertigo Patient Disposition: Home, Self-Care Time of Disposition Decision: 15:03 Condition: Good Prescriptions / Home Meds: New amoxicillin 500 mg capsule 500 mg PO Q8H Qty: 15 0RF meclizine 25 mg tablet 25 mg PO TID PRN (Reason: motion sickness) Qty: 20 0RF ondansetron 4 mg tablet,disintegrating 4 mg PO Q8H PRN (Reason: nausea and vomiting) 2 Days Qty: 6 0RF fluconazole 150 mg tablet 150 mg PO DAILY Qty: 1 0RF Held potassium chloride 20 mEq tablet extended release 20 meq PO BID Qty: 60 0RF Hold Instructions: Resume on 01/19/25. No Action atorvastatin 10 mg tablet 10 mg PO DAILY citalopram 40 mg tablet 20 mg PO .qhs diltiazem HCl 120 mg capsule,extended release 24hr 120 mg PO .qhs omeprazole 40 mg capsule,delayed release(DR/EC) 40 mg PO BID Sunosi 150 mg tablet 150 mg PO DAILY valacyclovir 500 mg tablet 500 mg PO DAILY fluticasone propion-salmeterol 500-50 mcg/dose blister with device 1 inh INHALATION BID fluticasone propionate 50 mcg/actuation spray,suspension 1 spray INTRANASAL DAILY eletriptan 40 mg tablet 40 mg PO Q2H PRN (Reason: headache) torsemide 10 mg tablet 10 mg PO QDAY PRN (Reason: Lower Leg edema) Qty: 0 0RF Print Language: Mongolian Instructions: Vertigo (DC), Ear Infection (ED) Additional Instructions: please hold potassium supplements while on meclizine Referrals: DOMITILA HUYNH [Primary Care Provider, Internal Medicine] - 1 week Discharge Date/Time: 01/16/25 15:32
== END 2025-01-16 15:32 | disposition home or self-care (01) ==
PROVIDERS: Emergency Provider Emergency Medicine; PCP Internal Medicine
DX: R42 Dizziness and giddiness (principal); H66.90 Otitis media, unspecified, unspecified ear
CPT/HCPCS: 36415; 80053; 84703; 85025; 96374; 96375; 99284; J1885; J2405

== ENCOUNTER 2025-08-10 13:52 | Outpatient (OUT) | payer BC, SELFPAY ==
--- OUTSIDE RECORDS SUMMARY | 2025-08-10 14:00 | XMS_ITS | CCD ---
Author Organization [facility] CliniSymn Care Team Providers Care Jig Boring Machine Set Up Operator Name Role Phone UNKNOWN, PROVIDER Unavailable Unavailable ELVER MENDENHALL Unavailable Unavailable ABDIRASHID, ELVER Primary Care Unavailable NAOMI MOROCHO Admitting Unavailable BAILEE, NAOMI Vasques Attending Unavailable JANE NAQVI V Consulting Unavailable NAOMI MOROCHO Consulting Unavailable NICHOLAS BOLTON Consulting Unavailable ELVER MENDENHALL Primary Care Unavailable NICHOLAS BOLTON Admitting Unavailable NICHOLAS BOLTON Attending Unavailable YAROSJONH Morataya Consulting Unavailable NICHOLAS BOLTON Consulting Unavailable GITA GARCIA Admitting Unavailable HEMSHAWN, GITA Segura Attending Unavailable ELVER MENDENHALL Primary Care Unavailable HEMGITA ESCOBAR Consulting Unavailable ELVER MENDENHALL Primary Care Unavailable LESLYE DOSS Consulting Unavailable LESLYE DOSS Admitting Unavailable LESLYE DOSS Attending Unavailable EBEN CROWLEY Consulting Unavailable LUBNA MANZANARES Consulting Unavailable ELVER MENDENHALL Primary Care Unavailable LESLYE DOSS Referring Unavailable IAN KU Attending Unavailable EBRAHEIM, IAN Admitting Unavailable [place] Procedure Practitioner Unavailab IAN [place] Surgeon Unavailable Jane Waller Unavailable Ciera Mcwilliams Unavailable Tracy Oliver Unavailable OSCAR Mendenhall Primary Care Provider MD Jane Waller Attending Provider OSCAR Mendenhall Primary Care Provider [phone] MD Jane Waller Attending Provider Efraín Patel Unavailable OSCAR Mendenhall Primary Care Provider [phone] MD Jane Waller Attending Provider [phone] Elver Mendenhall MD Primary Care Provider OSCAR Mendenhall Primary Care Provider [phone] MD Jane Waller Attending Provider Jane Waller Admitting Unavailable Jane Waller Attending Unavailable Elver Mendenhall Primary Care Unavailable Jane Waller Attending Unavailable Jane Waller Admitting Unavailable Elver Mendenhall Primary Care Unavailable Jane Waller Attending Unavailable Jane Waller Admitting Unavailable Abdirashid IIElver Primary Care Provider Jane Waller MD Attending Provider Unavailable Primary Care Provider Unavailabl e LENNY FUENTES R Attending Unavailable LENNY FUENTES Referring Unavailable Hemmer ENGINE EMISSION TECHNICIAN-[employer]ita Primary Care Provider Zuleika Bates NP Attending Provider GITA GARCIA Referring Unavailable HEMMER, GITA Segura Attending Unavailable HEMMER, GITA Segura Attending Unavailable TREVER BARNARD Attending Unavailable LENNY SNOW Attending Unavailable MARCY, SHWETA Vasques Attending Unavailable MARCY, SHWETA A Attending Unavailable WHITE, MARCELLE Referring Unavailable WHITE, MARCELLE Referring Unavailable WHITE, MARCELLE Referring Unavailable MARCY, SHWETA A Referring Unavailable WHITE, MARCELLE Referring Unavailable GARCIA, ANTONIO Attending Unavailable WHITE, MARCELLE Referring Unavailable MARCY, SHWETA A Attending Unavailable WHITE, MARCELLE Attending Unavailable MARCY, SHWETA A Attending Unavailable MARCY, SHWETA A Referring Unavailable WHITE, MARCELLE Attending Unavailable MARCY, SHWETA A Referring Unavailable Allergies Allergy ClassificationReported Allergen(s)Allergy TypeDate of OnsetReaction(s) Facility (2 sources)MorphineDrug Nbziyuq23-71-5973Nnu [facility] Repository (1 source)Sulfamethoxazole / TrimethoprimDrug Lvqwknv36-56-5547Tmt [facility] Repository (3 sources)Sulfonamides (Antibiotic); Translations: [SULFA (SULFONAMIDE ANTIBIOTICS)]Drug allergy (disorder)58-76-5828[facility] Repository (20 sources)Clarithromycin; Translations: [clarithromycin]Drug [id number] [facility] ([facility])Sulfanilamide; Translations: [sulfanilamide]Drug [id number] Unknown Reaction, AnaphylaxisPar[facility] (20 sources)Sulfonamides (Antibiotic)Drug Lflkahq92-09-8775[facility] Medications Current Medications MedicationDrug Class(es)DatesSig (Normalized)Sig (Original)acetaminophen 325 mg oral tablet (6 sources)Start: 27-32-8180igvm 650-975 mg by mouth every six hours as needed acetaminophen (Tylenol) 325 MG tablet Take 650-975 mg by mouth every 6 (six) hours if needed 04/07/2025 ActiveStart: 04-07-2025 End: 26-37-8098vqgd 4 g by mouth every twenty-four mg, Oral, ONCE, On Sat04/07/25 at 0330, For 1 dose, Do not exceed 4 grams of acetaminophen in 24 hours from all sourcesacetaminophen 325 mg / HYDROcodone bitartrate 5 mg oral tablet (1 source)Opioid AgonistStart: 04-07-2025 End: 56-45-8621rter 1 tablet by mouth every six hours as needed for pain HYDROcodone-Acetaminophen (NORCO) 5-325 mg per tablet Indications: Left leg cellulitis Take 1 Tablet by mouth every 6 hours as needed for Pain for up to 5 days. 14 Tablet 04/07/2025 04/12/2025 Activeacetaminophen 325 mg / oxyCODONE hydrochloride 5 mg oral tablet (4 sources)Opioid AgonistStart: 06-22-2024 End: 48-87-7218znme 1 tablet by mouth every six hours as needed for pain oxyCODONE-acetaminophen (Percocet) 5-325 MG tablet TAKE 1 TABLET BY MOUTH EVERY 6 HOURS NEEDED FOR PAIN FOR 3 DAYS 06/22/2024 01/18/2025 Discontinued (Therapy completed)Advair Diskus 500-50 MCG/DOSE (8 sources)take 1 puff(s) by inhalation twice dailyAdvair Diskus 500-50 MCG/DOSE 1 puff Inhalation Twice a day for 30 days Activetake 1 puff(s) by inhalation twice dailyAdvair Diskus 500-50 MCG/DOSE 1 puff Inhalation Twice a day for 90 day(s) Activealbuterol 0.83 mg/ml inhalation solution (20 sources)beta2-Adrenergic AgonistStart: 75-08-1035uaxm 3 mL by inhalation four times daily as neededAlbuterol Sulfate 2.5 mg /3 mL (0.083 %) solution for nebulization Active 2.5 MG INHALATION Four times daily as needed August 03, 2024 1:00am FreeTextSi ml Inhalation qid prn dx: J45.20 asthma; Note: Source Status: Taking; Provider: Poppy Vang Complies with drug therapyStart: 65-59-6560ofrx 1 puff(s) by inhalation every four to six hours as needed Albuterol Sulfate (Proair Hfa) 90 mcg/actuation Hfa Aerosol Inhaler Active 2 PUFF INHALATION EVERY 4-6 HOURS as needed for breathing November 18, 2020 12:00am Complies with drug therapyalbuterol HFA 90 mcg/act inhaler Activetake 2 puff(s) by inhalation every four hours as neededProAir HFA 108 (90 Base) MCG/ACT 2 puffs as needed Inhalation every 4 hrs for 30 days Activetake 3 mL by inhalation four times daily as neededAlbuterol 0.083% 3 ml Inhalation qid prn dx: J45.20 asthma Activeamoxicillin 500 mg oral capsule (4 sources)Penicillin-class AntibacterialStart: 01-16-2025 End: 11-09-1040fhyc 1 capsule by mouth in the morning, then take 1 capsule by mouth in the evening, then take 1 capsule by mouth at bedtimeamoxicillin (Amoxil) 500 MG capsule Indications: Left acute otitis media Take 1 capsule (500 mg) bymouth in the morning and 1 capsule (500 mg) in the evening and 1 capsule (500 mg) before bedtime. Do all this for 5 days. 15 capsule 01/18/2025 01/23/2025 Activeatorvastatin 10 mg oral tablet (20 sources)HMG-CoA Reductase InhibitorStart: 99-63-1288gpcf 1 tablet by mouth once daily in the morningatorvastatin (Lipitor) 10 MG tablet Indications: Mixed hyperlipidemia TAKE 1 TABLET BY MOUTH EVERY DAY IN THE MORNING 100 tablet 3 12/11/2024 Activetake 1 tablet by mouth once dailyatorvastatin (LIPITOR) 20 mg Tablet Take 20 mg by mouth daily. ActiveBilevel Positive Airway Pressure (Bipap) unit (4 sources)Start: 67-24-4981Swardcb Positive Airway Pressure (Bipap) unit Active 0 .Route July 20, 2024 1:00am As directed [facility] mCASH see's Dr. Mcgowan: 91-72-1672Ecgoqyc Positive Airway Pressure (Bipap) unit Active 0 .Route July 20, 2024 12:00am As directed [facility] Medical Service [facility] herbie'jorge luis Wing Machine (20 sources)BIPAP Machine Activecefadroxil 500 mg oral capsule (1 source)Cephalosporin AntibacterialStart: 04-07-2025 End: 77-30-5295meth 1 capsule by mouth every twelve hourscefadroxil (DURICEF) 500 mg capsule Take 1 Capsule (500 mg) by mouth every 12 hours for 10 days. 20 Capsule 04/07/2025 04/17/2025 Activecetirizine hydrochloride 10 mg oral tablet (20 sources)Histamine-1 Receptor AntagonistStart: 12-13-1908raro 1 tablet by mouth once daily as neededCetirizine 10 mg Tablet Active 10 MG PO Daily as needed for seasonal allergy November 18, 2020 12:00am Complies with drug therapy take 1 capsule by mouth every twenty-four hoursZyrTEC Allergy 10 MG 1 tab(s) Orally Daily Activecholecalciferol 0.05 mg oral capsule (20 sources)Vitamin Dcholecalciferol (Vitamin D-3) 50 MCG (1999 UT) capsule Activecitalopram 40 mg oral tablet (20 sources)Serotonin Reuptake InhibitorStart: 39-91-3684hazu 0.5 tablet by mouth once dailycitalopram (CeleXA) 40 MG tablet Indications: Obsessive- compulsive disorder, unspecified type Take 0.5 tablets (20 mg) by mouth Daily 45 tablet 3 12/02/2024 ActiveStart: 11-18-2020 End: 41-30-4391pewi 0.5 tablet by mouth once dailyCitalopram 40 mg tablet Discontinued 20 MG PO As Directed January 30, 2024 9:52am August 22, 2024 12:21pm 1/2 tablet orally once a dayStart: 11-18-2020 End: 44-13-5005yktp 0.5 tablet by mouth once dailyCitalopram Active 20 MG PO As Directed January 30, 2024 9:52am 1/2 tablet orally once a daytake 1 tablet by mouth every twenty-four hoursCeleXA 20 MG 1 tablet Orally Daily Active clindamycin 300 mg oral capsule (20 sources)Lincosamide AntibacterialStart: 05-13-2024 End: 69-85-3035mgpm 1 capsule by mouth in the morning, then take 1 capsule by mouth in the evening, then take 1 capsule by mouth at bedtimeclindamycin (Cleocin) 300 MG capsule Indications: Bilateral lower leg cellulitis Take 1 capsule (300 mg) by mouth in the morning and 1 capsule (300 mg) in the evening and 1 capsule (300 mg) before bedtime. Do all this for 7 days. 21 capsule 05/13/2024 05/20/2024 ActiveStart: 12-25-2023 End: 68-26-3369stvw 1 capsule by mouth three times dailyClindamycin Hcl 300 mg capsule Discontinued 300 MG PO Three times daily 30 December 25, 2023 12:00am January 09, 2024 3:18pmStart: 04-29-2023 End: 00-73-8032jalyzyccjzu (Clindagel) 1 % gel Indications: Perioral dermatitis Apply to face BID 60 g 1 04/29/2023 06/03/2024 Discontinued (Other)24 hr dilTIAZem hydrochloride 120 mg extended release oral capsule (20 sources)Calcium Channel BlockerStart: 04-13-2024 End: 93-02-7907xpck 1 capsule by mouth every twenty-four hours in the morning dilTIAZem CD (Cardizem CD) 120 MG 24 hr capsule Indications: Tachycardia TAKE 1 CAPSULE (120 MG) BYMOUTH IN THE MORNING 100 capsule 3 05/17/2025 ActiveStart: 17-67-4303exrm 1 capsule by mouth every twenty-four hours in the morning dilTIAZem CD (Cardizem CD) 120 MG 24 hr capsule Indications: Tachycardia Take 1 capsule (120 mg) bymouth in the morning. 100 capsule 3 02/28/2023 ActiveStart: 23-49-3663itch 1 capsule by mouth once dailyDiltiazem Hcl 120 mg Capsule,Ext.Rel 24h Degradable Active 120 MG PO Daily November 18, 2020 12:00amComplies with drug therapyStart: 96-73-5922ksjq 120 mg by mouth once dailyDiltiazem Hcl Active 120 MG PO Daily November 18, 2020 12:00amtake 1 tablet by mouth every six hours dilTIAZem (CARDIZEM) 60 mg tablet Take 60 mg by mouth every 6 hours. Active Diltiazem Hcl 120 mg Capsule,Ext.Rel 24h Degradable (4 sources)Start: 62-90-0597zaqe 1 capsule by mouth once dailyDiltiazem Hcl 120 mg Capsule,Ext.Rel 24h Degradable Active 120 MG PO Daily November 18, 2020 12:00amStart: 72-79-9417rnyi 1 capsule by mouth once dailyDiltiazem Hcl 120 mg Capsule,Ext.Rel 24h Degradable Active 120 MG PO Daily November 17, 2020 11:00pm doxycycline hyclate 100 mg oral capsule (17 sources)Tetracycline-class DrugStart: 04-07-2025 End: 52-90-1435cpwp 100 mg by mouth imua528 mg, Oral, ONCE, On Sat04/07/25 at 0345, For 1 doseStart: 08-22-2024 End: 01-83-5650aieh 1 capsule by mouth twice dailydoxycycline (VIBRAMYCIN) 100 mg capsule Take 1 Capsule (100 mg) by mouth 2 times daily for 10 days.20 Capsule 04/07/2025 04/17/2025 ActiveStart: 91-95-6088gues 1 capsule by mouth every twelve hoursDoxycycline Monohydrate 100 MG 1 capsule Orally every 12 hrs for 7 days Aug, Activeeletriptan 40 mg oral tablet (20 sources)Serotonin-1b and Serotonin-1d Receptor AgonistStart: 48-80-6108exfc 1 tablet by mouth every two hours, then take 2 tablets by mouth every twenty- four hourseletriptan (Relpax) 40 MG tablet Indications: Other migraine without status migrainosus, intractable TAKE 1 TABLET BY MOUTH, REPEAT IN 2 HOURS IF HEADACHE RETURNS,*NO MORE THAN 2 DOSES IN 24 HOURS 12tablet 12 08/31/2024 Active fluconazole 150 mg oral tablet (20 sources)Azole AntifungalStart: 01-18-2025 End: 75-08-0787ayogkympxpl (Diflucan) 150 MG tablet Indications: Left acute otitis media Take 1 tablet (150 mg) bymouth Daily for 1 day, THEN 1 tablet (150 mg) Daily for 1 day. Take doses 3 days apart. 2 tablet 01/18/2025 01/20/2025 ActiveStart: 12-25-2023 End: 03-30-8624bxyu 1 tablet by mouth onceFluconazole 150 mg tablet Discontinued 150 MG PO Once December 25, 2023 12:00am August 22, 2024 12:18pmStart: 19-52-1484Sgqpxyxa 150 MG 1 tablet Orally if needed after antibiotics completed for 1 days Aug, Activefluticasone propionate 0.05 mg/actuat metered dose nasal spray (20 sources)CorticosteroidStart: 06-01-2024 End: 81-65-4101gxlm 1-2 spray(s) nasal route once dailyFluticasone Propionate 50 mcg/actuation spray,suspension Active 0 .ROUTE .COMPLEX 48 May 27, 2025 8:01am SPRAY 1 TO 2 SPRAYS INTO EACH NOSTRIL ONCE A DAY Complies with drug therapyStart: 86-34-4002oycu 1-2 spray(s) nasal route once dailyfluticasone (Flonase) 50 MCG/ACT nasal spray SPRAY 1 TO 2 SPRAYS IN EACH NOSTRIL ONCE DAILY 10/28/2022 ActiveStart: 11-18-2020 End: 91-37-9858Sktcdaaxhhj Propionate (Flonase) 50 mcg/actuation [place],Suspension Discontinued 1 SPRAY INTRANASAL Daily November 18, 2020 12:00am August 03, 2024 4:39pmtake 1-2 spray(s) nasal route once dailyFluticasone Propionate 50 MCG/ACT 1-2 spray in each nostril Nasally Once a day for 30 day(s) Activegabapentin 300 mg oral capsule (3 sources)Anti-epileptic AgentStart: 05-11-2025 End: 26-82-1129vkfm 1 capsule by mouth in the morninggabapentin (Neurontin) 300 MG capsule Take 300 mg by mouth in the morning and 300 mg in the evening. 05/11/2025 06/10/2025 Activemethocarbamol 750 mg oral tablet (4 sources)Muscle RelaxantStart: 06-22-2024 End: 77-94-2782bbbi 1 tablet by mouth three times daily as needed for pain methocarbamol (Robaxin) 750 MG tablet TAKE 1 TABLET BY MOUTH 3 TIMES A DAY NEEDED FOR PAIN 06/22/2024 01/18/2025 Discontinued (Therapy completed) methylPREDNISolone (20 sources)CorticosteroidStart: 08-28-2024 End: 66-80-7513qvnjwsMZUTYTZyhgyo (Medrol Dospak) 4 MG tablets Indications: Chronic sinusitis, unspecified location Follow schedule on package instructions 21 tablet 08/28/2024 01/18/2025 Discontinued (Therapy completed)Start: 57-29-9850suwdslCTAQAJAphloq (Medrol Dospak) 4 MG tablets Indications: Chronic sinusitis, unspecified location Follow schedule on package instructions 21 tablet 08/28/2024 ActiveStart: 07-13-2024 End: 62-73-4583rywmchAIDTBAUefcsk (Medrol Dospak) 4 MG tablets Indications: Peroneal tendinitis of left lower extremity , Peroneal tendinitis of right lower extremity Follow schedule on package instructions 21 tablet 07/13/2024 08/28/2024 Discontinued (Reorder)Start: 23-92-4478xhvwqqQPWGDQHliodc (Medrol Dospak) 4 MG tablets Indications: Peroneal tendinitis of left lower extremity , Peroneal tendinitis of right lower extremity Follow schedule on package instructions 21 tablet 07/13/2024 ActiveStart: 06-03-2024 End: 01-01-7086lguwgkMNGDUXUdxshb (Medrol Dospak) 4 MG tablets Indications: Peroneal tendinitis of left lower extremity , Peroneal tendinitis of right lower extremity Follow schedule on package instructions 21 tablet 06/03/2024 06/13/2024 Discontinued (Therapy completed)Start: 97-57-9011ohcutvJWBVIAXsawqr (Medrol Dospak) 4 MG tablets Indications: Peroneal tendinitis of left lower extremity , Peroneal tendinitis of right lower extremity Follow schedule on package instructions 21 tablet 06/03/2024 ActiveStart: 05-14-2024 End: 37-42-9639xtvllvBJYQHCStqvvl (Medrol Dospak) 4 MG tablets Indications: Peroneal tendinitis, left Follow schedule on MEDROL PACK package instructions to be used as directed 21 tablet 05/14/2024 06/03/2024 Discontinued (Other)Start: 98-17-4973stmevvPRHXWCSkumhr (Medrol Dospak) 4 MG tablets Indications: Peroneal tendinitis, left Follow schedule on MEDROL PACK package instructions to be used as directed 21 tablet 05/14/2024 ActiveStart: 03-04-2024 End: 98-36-4304etlekaPBMTWCFrafvw (Medrol Dospak) 4 MG tablets Indications: Sprain of anterior talofibular ligament of right ankle, initial encounter Follow schedule on package instructions 21 tablet 03/04/2024 05/13/2024 Discontinued (Therapy completed)Start: 41-93-4916sndtxfPCQVPIOdnxzy (Medrol Dospak) 4 MG tablets Indications: Sprain of anterior talofibular ligament of right ankle, initial encounter Follow schedule on package instructions 21 tablet 03/04/2024 ActiveStart: 37-52-9230ctcalvANHKTQMpkeyu 4 MG as directed Orally Once a day for 6 days Aug, Activeminocycline 100 mg oral capsule (20 sources)Tetracycline-class DrugStart: 08-10-2024 End: 66-91-7755cqzf 1 capsule by mouth once dailyminocycline 100 MG capsule Indications: Perioral dermatitis Take 1 capsule (100 mg) by mouth Daily 30 capsule 08/10/2024 09/09/2024 ActiveStart: 20-47-5537wtfz 1 capsule by mouth twice dailyminocycline 100 MG capsule Indications: Perioral dermatitis Take 1 capsule, by mouth, bid, 30 days 60 capsule 07/13/2024 ActiveStart: 09-17-2023 take 1 capsule by mouth twice dailyminocycline 100 MG capsule Indications: Perioral dermatitis Take 1 capsule, by mouth, bid, 30 days 60 capsule 09/17/2023 Activenaproxen 500 mg oral tablet (2 sources)Nonsteroidal Anti-inflammatory DrugStart: 14-04-7316corf 1 tablet by mouth twice daily as needed for painnaproxen (NAPROSYN) 500 mg tablet Take 1 Tablet (500 mg) by mouth 2 times daily as needed (Pain. Take with food.). 14 Tablet 04/07/2025 ActiveStart: 04-07-2025 End: 12-81-6345fwed 500 mg by mouth ecpa957 mg, Oral, ONCE, On Sat04/07/25 at 0330, For 1 doseomeprazole 40 mg delayed release oral capsule (20 sources)Proton Pump InhibitorStart: 18-21-1310usjt 1 capsule by mouth in the morningomeprazole (PriLOSEC) [address] capsule Indications: Gastroesophageal reflux disease without esophagitis TAKE 1 CAPSULE BY MOUTH IN THE MORNING AND 1 CAPSULE BEFORE BEDTIME. 200 capsule 3 04/19/2025 ActiveStart: 71-79-8850ozhg 1 capsule by mouth in the morningomeprazole (PriLOSEC) [address] capsule Indications: Gastroesophageal reflux disease without esophagitis Take 1 capsule (40 mg) by mouth in the morning and 1 capsule (40 mg) before bedtime. 180 capsule 3 06/30/2024 ActiveStart: 31-58-8809hhsx 1 capsule by mouth twice daily omeprazole (PriLOSEC) [address] capsule Indications: Gastroesophageal reflux disease without esophagitis TAKE 1 CAPSULE BY MOUTH TWICE DAILY 180 capsule 3 09/26/2023 ActiveStart: 47-06-0816yljt 1 capsule by mouth once dailyOmeprazole 40 mg Capsule,Delayed Release(Dr/Ec) Active 40 MG PO Daily November 18, 2020 12:00am Complies with drug therapyondansetron 4 mg disintegrating oral tablet (10 sources)Serotonin-3 Receptor AntagonistStart: 01-16-2025 End: 78-12-6947kaew 1 tablet by mouth every eight hours as needed for vomiting and nausea and nausea and nauseaondansetron ODT (Zofran-ODT) 4 MG disintegrating tablet Indications: Nausea Take 1 tablet (4 mg) bymouth every 8 (eight) hours if needed for vomiting or nausea 21 tablet 2 2025 Activepotassium chloride 10 meq extended release oral tablet (20 sources)Start: 61-86-8200hylh 2 tablets by mouth at bedtimepotassium chloride CR (Klor-Con) 10 MEQ ER tablet Indications: Hypokalemia TAKE 2 TABLETS BY MOUTH IN THE MORNING AND BEFORE BEDTIME 360 tablet 2 02/19/2025 ActiveStart: 70-70-6825eqml 1 tablet by mouth twice dailyPotassium Chloride 20 mEq tablet extended release Active 20 MEQ PO Twice daily August 22, 2024 1:00am Complies with drug therapyStart: 64-57-5170ttwr 2 tablets by mouth in the morningpotassium chloride CR (Klor-Con) 10 MEQ ER tablet Indications: Hypokalemia Take 2 tablets (20 mEq) by mouth in the morning and 2 tablets (20 mEq) before bedtime. 120 tablet 6 08/03/2024 ActiveStart: 07-16-2024 End: 20-23-0964Dsiepfiey Chloride (Klor-Con M10) 10 mEq tablet,ER particles/crystals Discontinued MEQ PO July 16, 2024 1:00am August 22, 2024 12:19pmStart: 99-55-0760gdcx 2 tablets by mouth in the morningpotassium chloride CR (Klor-Con) 10 MEQ ER tablet Indications: Hypokalemia Take 2 tablets (20 mEq) by mouth in the morning and 2 tablets (20 mEq) before bedtime. 06/03/2024 ActiveStart: 05-31-2024 End: 56-13-9202izwt 1 tablet by mouth in the morningpotassium chloride CR (K- Tab) 20 MEQ ER tablet Take 20 mEq by mouth in the morning and 20 mEq before bedtime. 05/31/2024 06/03/2024 Discontinued (Other)Start: 02-03-2024 End: 16-22-4027sfpr 1 tablet by mouth in the morningpotassium chloride CR (KLOR- CON) 10 MEQ ER tablet Indications: Hypokalemia Take 1 tablet (10 mEq) by mouth in the morning and 1 tablet (10 mEq) before bedtime. 200 tablet 3 02/03/2024 06/03/2024 Discontinued (Dose adjustment)Start: 13-25-6084QTGC-CON 10 MEQ ER tablet 1 (one) time each day at the same time. 0 09/24/2022 ActiveProAir HFA 108 (90 Base) MCG/ACT (12 sources)take 2 puff(s) by inhalation every four hours as neededProAir HFA 108 (90 Base) MCG/ACT 2 puffs as needed Inhalation every 4 hrs for 30 days ActiveraNITIdine (1 source)Histamine-2 Receptor Antagonisttake 40 mg by mouth at bedtime ranitidine HCl (ZANTAC 75 PO) Take 40 mg by mouth in the morning and at bedtime. ActiveSemaglutide-Weight Management (Wegovy) 0.25 MG/0.5ML solution auto-injector (1 source)Start: 62-76-8477Ccbxzrikatk-Weight Management (Wegovy) 0.25 MG/0.5ML solution auto-injector Indications: Obstructive sleep apnea , Class 2 severe obesity due to excess calories with serious comorbidity and body massindex (BMI) of 38.0 to 38.9 in adult Inject 0.25 mg under the skin 1 (one) time per week 2 mL 2 06/08/2025 Activesolriamfetol 150 mg oral tablet (20 sources)Start: 02-06-2023 End: 53-05-6221Sggpsx 150 MG tablet 03/11/2023 ActiveStart: 03-70-8533exey 1 tablet by mouth every twenty-four hoursSunosi 75 MG 1 tablet in the morning Orally Once a day for 15 days Jan, ActiveSolriamfetol (Sunosi) 150 mg tablet (20 sources)Start: 86-01-5214ywho 1 tablet by mouth once dailySolriamfetol (Sunosi) 150 mg tablet Active 150 MG PO Daily 90 October 28, 2024 5:58pm Start: 69-85-4258ivhh 1 tablet by mouth once dailySolriamfetol (Sunosi) 150 mg tablet Active 150 MG PO Daily 90 October 28, 2024 4:58pmStart: 08-04-2024 End: 02-67-4192ryzc 1 tablet by mouth once dailySolriamfetol (Sunosi) 150 mg tablet Discontinued 150 MG PO Daily August 04, 2024 1:43pm October 28, 2024 5:58pmStart: 08-04-2024 End: 82-40-5735yjwx 1 tablet by mouth once dailySolriamfetol (Sunosi) 150 mg tablet Discontinued 150 MG PO Daily 90 August 04, 2024 12:43pm October 28, 2024 4:58pmStart: 03-11-2024 End: 63-83-3346pjgh 1 tablet by mouth once dailySolriamfetol (Sunosi) 150 mg tablet Discontinued 150 MG PO Daily March 11, 2024 1:15pm August 04, 2024 1:44pmStart: 03-11-2024 End: 72-46-6867kkbb 1 tablet by mouth once dailySolriamfetol (Sunosi) 150 mg tablet Discontinued 150 MG PO Daily March 11, 2024 12:15pm August 04, 2024 12:44pmStart: 70-51-9001thdu 1 tablet by mouth once dailySolriamfetol (Sunosi) 150 mg tablet Active 150 MG PO Daily March 11, 2024 12:15pm Start: 65-31-3644pcmi 1 tablet by mouth once dailySolriamfetol (Sunosi) 150 mg tablet Active 150 MG PO Daily March 11, 2024 1:15pmStart: 12-25-2023 End: 28-87-0575reoe 1 tablet by mouth once dailySolriamfetol (Sunosi) 150 mg tablet Discontinued 150 MG PO Daily December 24, 2023 11:00pm March 11, 2024 12:15pmStart: 12-25-2023 End: 14-02-6970kdyy 1 tablet by mouth once dailySolriamfetol (Sunosi) 150 mg tablet Discontinued 150 MG PO Daily December 25, 2023 12:00am March 11, 2024 1:15pmStart: 97-90-8179gwwa 1 tablet by mouth once dailySolriamfetol (Sunosi) 150 mg tablet Active 150 MG PO Daily December 25, 2023 12:00amtorsemide 10 mg oral tablet (20 sources)Loop DiureticStart: 87-25-4739dsmc 1 tablet by mouth once daily torsemide (Demadex) 10 MG tablet Indications: Ankle edema TAKE 1 TABLET BY MOUTH EVERY DAY 90 tablet 1 03/02/2025 ActiveStart: 05-13-2024 End: 21-58-3136Nyaelbyur 10 mg tablet Discontinued 10 MG PO July 16, 2024 1:00am August 22, 2024 12:21pmvalACYclovir 500 mg oral tablet (20 sources)Herpesvirus Nucleoside Analog DNA Polymerase Inhibitor, Herpes Simplex Virus Nucleoside Analog DNA Polymerase Inhibitor, Herpes Zoster Virus Nucleoside Analog DNA Polymerase InhibitorStart: 03-21-2024 End: 38-39-6579eiut 1 tablet by mouth once dailyvalACYclovir (Valtrex) 500 MG tablet Indications: Encounter for gynecological examination (general)(routine) without abnormal findings Take 1 tablet (500 mg) by mouth Daily 90 tablet 3 08/28/2024 08/28/2025 ActiveStart: 11-18-2020 End: 67-64-0653ovdp 1 tablet by mouth once dailyValacyclovir (Valtrex) 500 mg Tablet Discontinued 500 MG PO Daily November 18, 2020 12:00am December 25, 2023 5:18pmtake 1 tablet by mouth every twenty-four hoursValtrex 1 GM 1 tablet Orally every 24 hrs Activetake 1 tablet by mouth every twenty-four hoursValtrex 1 GM 1 tablet Orally every 24 hrs Active Completed/Discontinued Medications MedicationDrug Class(es)DatesSig (Normalized)Sig (Original)amphetamine aspartate 5 mg / amphetamine sulfate 5 mg / dextroamphetamine saccharate 5 mg / dextroam phetamine sulfate 5 mg oral tablet (20 sources)Central Nervous System StimulantStart: 06-01-2021 End: 54-96-9157vlyz 1 capsule by mouth every twenty-four hoursAdderall XR 20 MG 1 capsule in the morning Orally Once a day for 90 days Narcolepsy do not fill until 02/25/23 Jun, ActiveStart: 03-13-2021 End: 66-13-8433mkjn 1 tablet by mouth twice dailyDextroamphetamine-Amphetamine (Adderall) 20 mg Tablet Discontinued 20 MG PO Twice daily March 13, 2021 12:00am January 30, 2024 9:53amStart: 12-20-2020 End: 41-08-0208lmyb 1 tablet by mouth once dailyDextroamphetamine-Amphetamine (Adderall) 20 mg tablet Discontinued 0 PO Daily 90 90 July 16, 2024 October 28, 2024 5:58pm 1/2 to 1 tablet at noon orally daily;cefTRIAXone (18 sources)Cephalosporin AntibacterialStart: 30-12-5291Mpfijcqf 500 mg Mar, 500 mgcephalexin 500 mg oral capsule (4 sources)Cephalosporin AntibacterialStart: 04-07-2025 End: 14-76-9090reks 500 mg by mouth qjzz097 mg, Oral, ONCE, On Sat04/07/25 at 0345, For 1 doseStart: 12-28-2024 End: 05-90-8579dgqh 1 capsule by mouth every six hoursCephalexin 500 mg capsule Discontinued 500 MG PO Every 6 hours 29 03December 28, 2024 12:00am May 27, 2025 3:55pmcyclobenzaprine hydrochloride 5 mg oral tablet (15 sources)Muscle RelaxantStart: 11-18-2020 End: 70-26-9744Gwznpqrjfkazkvm 5 mg Tablet Discontinued 5 MG PO As Directed as needed for Muscle Spasm October 12:00am January 30, 2024 9:52amFluticasone Propion-Salmeterol (20 sources)Corticosteroid, beta2-Adrenergic AgonistStart: 08-03-2024 End: 00-45-6367Fhancogssce Propion-Salmeterol 500-50 mcg/dose blister with device Discontinued 1 INH INHALATION Twice daily 3 August 03, 2024 5:11pm May 27, 2025 3:56pmStart: 37-44-9066Xpbvbcqiowb Propion-Salmeterol 500- 50 mcg/dose blister with device Active 1 INH INHALATION Twice daily 3 August 03, 2024 5:11pmStart: 00-30-2020Ppteqfmgksy Propion-Salmeterol 500-50 mcg/dose blister with device Active 1 INH INHALATION Twice daily August 03, 2024 4:11pmStart: 08-03-2024 End: 61-15-6072Xqsoqfgoyda Propion-Salmeterol 500-50 mcg/dose blister with device Discontinued 1 INH INHALATION Twice daily August 03, 2024 1:00am August 03, 2024 5:12pmStart: 08-03-2024 End: 40-37-7475Htuppuczajt Propion-Salmeterol 500-50 mcg/dose blister with device Discontinued 1 INH INHALATION Twice daily August 03, 2024 12:00am August 03, 2024 4:12pmStart: 87-55-6346ifna 1 puff(s) by inhalation twice dailyAdvair Diskus 500-50 MCG/ACT aerosol powder INHALE 1 PUFF INTO THE LUNGS TWICE A DAY FOR 30 DAYS 03/13/2023 ActiveStart: 11-18-2020 End: 11-20-9534Fgzxwtknipy Propion-Salmeterol (Advair Diskus) 500-50 mcg/dose blister with device Discontinued 1 EACH INHALATION Twice daily November 18, 2020 12:00am June 01, 2024 12:44pmStart: 11-18-2020 End: 06-40-0900Phnkbbachha Propion-Salmeterol (Advair Diskus) 500-50 mcg/dose blister with device Discontinued 1 EACH INHALATION Twice daily November 17, 2020 11:00pm June 01, 2024 11:44amStart: 57-31-6039Ulwthjpwefc Propion- Salmeterol (Advair Diskus) 500-50 mcg/dose blister with device Active 1 EACH INH ALATION Twice daily November 17, 2020 11:00pmStart: 57-08-7666Xbcohngdotn Propion-Salmeterol (Advair Diskus) 500-50 mcg/dose blister with device Active 1 EACH INHALATION Twice daily November 18, 2020 12:00amhydroCHLOROthiazide 25 mg oral tablet (20 sources)Thiazide DiureticStart: 11-18-2020 End: 04-69-4911qyid 1 tablet by mouth once dailyHydrochlorothiazide 25 mg tablet Discontinued 25 MG PO Daily December 25, 2023 12:00am July 16, 2024 5:20pm meloxicam 15 mg oral tablet (10 sources)Nonsteroidal Anti-inflammatory DrugStart: 12-28-2024 End: 10-18-1491setd 1 tablet by mouth in the morningmeloxicam (Mobic) 15 MG tablet Take 15 mg by mouth in the morning. 12/29/2024 2025 Discontinued modafinil 200 mg oral tablet (15 sources)Sympathomimetic-like AgentStart: 11-18-2020 End: 69-88-7801aaju 1 tablet by mouth twice dailyModafinil 200 mg Tablet Discontinued 200 MG PO Twice daily November 18, 2020 12:00am March 13, 2021 9:12ammupirocin 0.02 mg/mg topical ointment (20 sources)RNA Synthetase Inhibitor AntibacterialStart: 83-80-6785Omjemyqfk 2 % 1 application with Qtip to affected area Externally 2 times a day for 7 days Aug, Not-Taking/PRNPotassium Chloride (Klor-Con M10) 10 mEq tablet,ER particles/crystals (4 sources)Start: 07-16-2024 End: 66-63-5123Tiumtybei Chloride (Klor-Con M10) 10 mEq tablet,ER particles/crystals Discontinued MEQ PO July 16, 2024 1:00am August 22, 2024 12:19pmStart: 07-16-2024 End: 19-80-7304Fmhxdfxlk Chloride (Klor-Con M10) 10 mEq tablet,ER particles/crystals Discontinued MEQ PO July 16, 2024 12:00am August 22, 2024 11:19amStart: 04-14-3548Hvktgdgtt Chloride (Klor-Con M10) 10 mEq tablet,ER particles/crystals Active MEQ PO July 16, 2024 12:00ampredniSONE 10 mg oral tablet (8 sources)Start: 10-12-2024 End: 02-28-8123Oyhxvckxdq 10 mg tablet Discontinued 10 MG PO As Directed October 12, 2024 1:00am May 27, 2025 3:56pm 4 tablets daily x 3 days, 2 tablets daily x 3 days, 1 tablet daily x 7 days then stopStart: 08-22-2024 End: 87-64-1372aeqs 2 tablets by mouth once dailyPrednisone 20 mg tablet Discontinued 20 MG PO .COMPLEX August 22, 2024 1:00am October 1:41pm Take 2 tabs po daily x 5 dayspromethazine hydrochloride 25 mg oral tablet (15 sources)PhenothiazineStart: 11-18-2020 End: 11-27-7054esyh 1 tablet by mouth twice dailyPromethazine 25 mg Tablet Discontinued 25 MG PO Twice daily November 18, 2020 12:00am December 25, 2023 5:18pmTirzepatide-Weight Management (Zepbound) 2.5 MG/0.5ML solution auto-injector (4 sources)Start: 06-19-2025 End: 38-64-1843Lpitjvczoxw-Weight Management (Zepbound) 2.5 MG/0.5ML solution auto-injector Indications: Obstructive sleep apnea , Class 2 severe obesity due to excess calories with serious comorbidity and body mass index (BMI) of 38.0 to 38.9 in adult Inject 2.5 mg under the skin 1 (one) time per week 2 mL 5 06/0206/21/2025 Discontinued (Cost of medication)Start: 2025 End: 24-11-7186Bgnelvqrjnb-Weight Management (Zepbound) 2.5 MG/0.5ML solution auto-injector Indications: Obstructive sleep apnea , Class 2 severe obesity due to excess calories with serious comorbidity and body mass index (BMI) of 38.0 to 38.9 in adult Inject 2.5 mg under the skin 1 (one) time per week 2 mL 1 01/202506/08/2025 DiscontinuedStart: 28-59-0469Lfgqjdkiibv-Weight Management (Zepbound) 2.5 MG/0.5ML solution auto-injector Indications: Obstructive sleep apnea , Class 2 severe obesity due to excess calories with serious comorbidity and body mass index (BMI) of 38.0 to 38.9 in adult Inject 2.5 mg under the skin 1 (one) time per week 2 mL 1 2025 Active Problems Active Problems Problem ClassificationProblemDateDocumented DateEpisodic/ChronicAnxiety disorders (20 sources)Obsessive-compulsive disorder; Translations: [Obsessive-compulsive disorder, unspecified]Onset: 011735-50-0488KklprdbSwajppt disorders (1 source)Obsessive-compulsive disorder, unspecified; Translations: [OBSESSIVE- COMPULSIVE D/O UNSPEC]Onset: 60-67-1817Wodhvkwfxy associated with dizziness or vertigo (2 sources)Vertigo; Translations: [Dizziness and giddiness]43-58-3461Neiwcpdk Disorders of lipid metabolism (20 sources)Mixed hyperlipidemia; Translations: [Mixed hyperlipidemia]Onset: 416130-84-8011TotgpjzXpydroipwz disorders (20 sources)Gastro-esophageal reflux disease without esophagitis; Translations: [Gastroesophageal reflux disease without esophagitis]Onset: ChronicExternal cause codes: Fall (1 source)Fall on same level, unspecified, initial encounter; Translations: [FALL SAME LEVEL UNSPECIFIED INITIAL]Onset: 76-40-3450Cdmypg infertility (20 sources)Female infertility; Translations: [Female infertility, unspecified] Onset: 121630-04-2809JsmdhdbNnpeuaitpfkmm symptoms and ill-defined conditions (1 source)Dysuria; Translations: [Dysuria]90-97-9683GnwhgsxsYxvkdnap; including migraine (20 sources)Migraine; Translations: [Migraine, unspecified, not intractable, without status migrainosus]Onset: 587518-48-3254ReqqpakBvghkwgvy disorders (2 sources)Irregular periods; Translations: [Irregular menstruation, unspecified]89-80-0124ZtdzznaNbsk disorders (2 sources)Mood swings; Translations: [Emotional lability]40-16-5050Lddnxpwe Mycoses (1 source)Candidiasis; Translations: [Candidiasis, unspecified]01-05-2025 EpisodicNausea and vomiting (13 sources)Nausea with vomiting, unspecified; Translations: [Nausea]Onset: 989933-57-8394SmbnybhvXfxlenhmela chest pain (1 source)Chest pain, unspecified; Translations: [Chest pain, unspecified]Onset: 67-56-3642KyvjynhkIihkcvhzkmnjsv (2 sources)Unilateral post-traumatic osteoarthritis, right knee; Translations: [Unilateral post-traumatic osteoarthritis, right knee]Onset: 06-42-4555Fvpohpc Other acquired deformities (14 sources)Scoliosis of lumbar spine; Translations: [Scoliosis, unspecified] Onset: 880606-60-8628FvxbhdaQqapo acquired deformities (2 sources)Scoliosis, unspecified; Translations: [Scoliosis, unspecified]Onset: 31-08-3367SglmnxaOhskx aftercare (1 source)Other fpc (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 therapy; Translations: [OTH ACQUISITIONS EDITOR CURRENT DRUG THERAPY]Onset: 52-83-0341PkanupucOusbw and unspecified benign neoplasm (2 sources)Benign neoplasm of soft tissue; Translations: [Melanocytic nevi, unspecified]83-26-0665OxzkfaebBhaof connective tissue disease (1 source)Pain in left leg; Translations: [PAIN IN LEFT LEG]Onset: 05-26-2019 EpisodicOther connective tissue disease (2 sources)Pain in bilateral legs; Translations: [Pain in right leg]10-04-2023 EpisodicOther inflammatory condition of skin (2 sources)Perioral dermatitis; Translations: [Perioral dermatitis]10-14-2023 ChronicOther nervous system disorders (20 sources)Cataplexy and narcolepsy; 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 with cataplexy] Onset: 934879-03-4938IuduumdEsgsj nervous system disorders (13 sources)Narcolepsy with cataplexy; 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, with cataplexy]Onset: 06-01-2021 Resolved: 44-08-9994FdijsroVuebt nervous system disorders (10 sources)Cataplexy; 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 with cataplexy]ChronicOther non-traumatic joint disorders (3 sources)Pain in right knee; Translations: [PAIN IN RIGHT KNEE]Onset: 91-33-1125IxxcbwxqHqjgj nutritional; endocrine; and metabolic disorders (20 sources)Body mass index 30+ - obesity; Translations: [Body mass index (BMI) 37.0-37.9, adult]Onset: 520092-78-8316WmdeorlKtrbt nutritional; endocrine; and metabolic disorders (1 source)Body mass index (BMI) 37.0-37.9, adultOnset: 08-22-2021 Resolved: 82-72-5334LyuolfdZmxtb nutritional; endocrine; and metabolic disorders (11 sources)Severe obesity; Translations: [Class 2 severe obesity due to excess calories with serious comorbidity and body mass index (BMI) of 38.0 to 38.9 in adult]Onset: 951634-02-5450ZmahiszEbhcv nutritional; endocrine; and metabolic disorders (2 sources)Weight gain; Translations: [Abnormal weight gain]73-58-3743Rzfhickl Other nutritional; endocrine; and metabolic disorders (2 sources)Weight increased; Translations: [Abnormal weight gain]2025 EpisodicOther skin disorders (4 sources)Localized swelling, mass and lump, left lower limb; Translations: [LOC SWELL MASS LUMP LT LOWER LIMB]Onset: 48-85-7391LkeptyewVfrme upper respiratory disease (20 sources)Allergic rhinitis; Translations: [Other allergic rhinitis]Onset: 696535-92-4664XmekofuEhric upper respiratory disease (4 sources)Seasonal allergy; Translations: [Other seasonal allergic rhinitis] 47-45-6039VkcmedqRqumk upper respiratory disease (1 source)Other seasonal allergic rhinitis; Translations: [Allergic rhinitis, cause unspecified]09-13-0510GqbatsgPffil upper respiratory infections (1 source)Chronic sinusitis; Translations: [Chronic sinusitis, unspecified] 49-11-7584NwlmjuzQzpvs upper respiratory infections (5 sources)Acute sinusitis; Translations: [Acute sinusitis, unspecified] 17-05-6469FgxhfuqmImmzjg media and related conditions (2 sources)Acute left otitis media; Translations: [Otitis media, unspecified, left ear]11-28-2187MmxfoebwMqwfyzda codes; unclassified (19 sources)Obstructive sleep apnea (adult) (pediatric); Translations: [Obstructive sleep apnea (adult)(pediatric)]Onset: 06-12-2019 Resolved: 45-27-4750CmaozpcLmifpxjf codes; unclassified (20 sources)Obstructive sleep apnea syndrome; Translations: [Obstructive sleep apnea (adult) (pediatric)]Onset: 668062-84-9461IpwinjwTkmsytbq codes; unclassified (20 sources)Hypersomnia; Translations: [Hypersomnia, unspecified]ChronicResidual codes; unclassified (20 sources)Daytime somnolence; Translations: [Other hypersomnia]Onset: 306490-14-9346KibmhfoRcjcxpqg codes; unclassified (14 sources)Other hypersomnia; Translations: [Hypersomnia, unspecified]Onset: 06-01-2021 Resolved: 13-52-0146XvjwskdWwnisyog codes; unclassified (20 sources)Sleep paralysis; Translations: [Other sleep disorders]Onset: 774196-47-0693FinrexgSuekaiau codes; unclassified (4 sources)Other sleep disorders; Translations: [Sleep related movement disorder, unspecified]ChronicResidual codes; unclassified (1 source)Obstructive sleep apnea (adult)(pediatric); Translations: [Obstructive sleep apnea (adult) (pediatric)]Onset: 78-12-0189NmgetiqVrpfdila codes; unclassified (4 sources)Localized edema; Translations: [LOCALIZED EDEMA]Onset: 06-08-2019 EpisodicResidual codes; unclassified (9 sources)Other hallucinations; Translations: [Hallucinations]Onset: 06-01-2021 Resolved: 91-41-7829QlarysuhJybjrnei codes; unclassified (1 source)Transient alteration of awareness; Translations: [Transient alteration of awareness]Onset: 81-24-3504HttsupzeEsvv and subcutaneous tissue infections (11 sources)Cellulitis of right lower limb; Translations: [Cellulitis of left lower limb]Onset: 08-19-2021 Resolved: 44-64-9560AvgvgxqtFereohesvto; intervertebral disc disorders; other back problems (16 sources)Degeneration of lumbar intervertebral disc; Translations: [Degeneration of intervertebral disc of lumbar region with discogenic back pain and lower extremity pain]Onset: 804006-23-3621VeknskeCsbyjvpinpu; intervertebral disc disorders; other back problems (20 sources)Stenosis of vertebral foramen; Translations: [Spinal stenosis, site unspecified]Onset: 313285-27-7575PwxrkmicVeqxoptyxsox (2 sources)Chest pain, unspecified / R07.9(ICD-9)Onset: 36-29-3640Cwimxqzhtzpe (20 sources)Patient on antidepressant monitoring planOnset: 292045-78-2749 Unclassified (20 sources)Baseline PHQ-9Onset: 212698-81-9167Uahyhhdzmzxm (1 source)Cellulitis of left lower limbOnset: 50-29-3471Rtgnofiwuqdf (1 source)Other intervertebral disc degeneration, lumbar region with discogenic back pain and lower extremitypain; Translations: [Other intervertebral disc degeneration, lumbar region with discogenic back pain and lower extremity pain] Onset: 03-16-2025 Past or Other Problems Problem ClassificationProblemDateDocumented DateEpisodic/ChronicAbdominal pain (20 sources)Abdominal pain; Translations: [Unspecified abdominal pain]Onset: 430740-29-6904YncexnxqAyolzn (20 sources)Unspecified asthma, uncomplicated; Translations: [Mild intermittent asthma]Onset: 07-08-2019 Resolved: 65-78-0745CfgsgzmFszmgbg dysrhythmias (20 sources)Tachycardia; Translations: [Tachycardia, unspecified]Onset: 506885-01-8868TtfvblpdLhjkruenrocnt and procreative management (20 sources)Patient encounter status; Translations: [Encounter for fertility testing]Onset: 01-09-2011 Resolved: 683059-84-1421YmajxmljWkeafoibpz and other anemia (20 sources)Anemia; Translations: [Anemia, unspecified]Onset: 10-04-2023 95-96-6417GidxrycwWzmbcurw mellitus without complication (20 sources)Impaired fasting glycemia; Translations: [Impaired fasting glucose] Onset: 206541-55-5086JjsqduscKhsgklky or abnormal glucose tolerance complicating ; childbirth; or the puerperium (20 sources)History of gestational diabetes mellitus; Translations: [Personal history of gestational diabetes]Onset: 042028-72-8005RilnsjocIkwmd of unknown origin (1 source)Fever, unspecified; Translations: [FEVER UNSPECIFIED]Onset: 01-06-2019 EpisodicFluid and electrolyte disorders (20 sources)Hypokalemia; Translations: [Dehydration]Onset: EpisodicFracture of lower limb (20 sources)Displaced bicondylar fracture of right tibia, initial encounter for closed fracture; Translations: [Fracture of tibial plateau]Onset: 07-08-2019 Resolved: 786456-74-1318AyblpjxoGcmuvpyoa of unspecified nature or uncertain behavior (20 sources)Thrombocytosis; Translations: [Thrombocythemia]Onset: 02-20-2023 33-41-3380TtpbnosqVminkhdmmynyb gastroenteritis (1 source)Noninfective gastroenteritis and colitis, unspecified; Translations: [NONINFECTIVE GE AND COLITIS UNS]Onset: 21-80-2812JjzzkxoyXuzrvgtqcza deficiencies (20 sources)Iron deficiency; Translations: [Iron deficiency]Onset: 02-20-2023 27-55-6059HedidjylPvyyn acquired deformities (2 sources)Spondylolysis, lumbar region; Translations: [Spondylolysis, lumbar region]Onset: 86-08-1794OqhuuycpZaguh connective tissue disease (20 sources)Peroneal tendinitis of left lower limb; Translations: [Peroneal tendinitis, left leg]Onset: 339717-01-3102ZgpxvszzOzhps connective tissue disease (20 sources)Peroneal tendinitis of right lower limb; Translations: [Peroneal tendinitis, right leg]Onset: 972184-09-3716XhuqtkagGdkte diseases of veins and lymphatics (20 sources)Vascular insufficiency; Translations: [Venous insufficiency (chronic) (peripheral)]Onset: 173392-54-5766DmzhsotySxkyo gastrointestinal disorders (1 source)Diarrhea, unspecified; Translations: [DIARRHEA UNSPECIFIED]Onset: 27-46-3945NxotycgtDkhuy injuries and conditions due to external causes (20 sources)H/O: fracture; Translations: [Personal history of (healed) traumatic fracture]Onset: 906550-63-2216TjlwzlagNkyzq liver diseases (20 sources)ALT (SGPT) level raised; Translations: [Elevated ALT measurement] Onset: 039881-97-8845JpxsuzgfEuyth nervous system disorders (20 sources)Narcolepsy without cataplexy ; 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 without cataplexy]Onset: 02-20-2023 Resolved: 414712-43-6147QpodlhsQoklz non-traumatic joint disorders (20 sources)Ankle edema; Translations: [Effusion, unspecified ankle]Onset: 593762-93-6051FgrzxrgjGexmz screening for suspected conditions (not mental disorders or infectious disease) (20 sources)Abnormal electrocardiogram [ECG] [EKG]; Translations: [Electrocardiogram abnormal]Onset: 655157-65-2364NgokjdpqDhzxtiru codes; unclassified (1 source)Acquired absence of other specified parts of digestive tract; Translations: [ACQ ABSENCE OTH PART DIGESTV TRACT]Onset: 32-06-0610Fevezzei Residual codes; unclassified (20 sources)Hypnagogic hallucinations; Translations: [Other hallucinations] Onset: 091542-33-0022HqpyrondXazvyvip codes; unclassified (20 sources)Family history of cardiac disorder; Translations: [Family history of ischemic heart disease and other diseases of the circulatory system]Onset: 756787-42-6665QflygkalEosvfrx (1 source)Syncope and collapse; Translations: [SYNCOPE AND COLLAPSE]Onset: 13-32-7159PrtcpghxYvhemftrvbih (1 source)Other intervertebral disc degeneration, lumbar region with discogenic back pain and lower extremitypain; Translations: [Other intervertebral disc degeneration, lumbar region with discogenic back pain and lower extremity pain] Onset: 07-15-2025 Results Test NameValueInterpretationReference RangeFacilityRefillon 59-53-2220Dvaxsd [id number] Linda Avlarado 1975 F Date Provider Department Center 07/13/2025 [facility] Family History Problem Relation Age of Onset Cancer Mother Early natural Mother Migraines Mother Cancer Paternal Grandfather Diabetes Paternal Grandfather Scoliosis Paternal Grandmother COPD Paternal Grandmother Alcohol abuse Father Coronary artery disease Father Alzheimer's disease Maternal Grandmother Family Status - Relation Status Age at Mother Paternal Grandfather Paternal Grandmother Father Alive Maternal Grandmother Alive Reason for Visit and Comments: Med Refill [[id number]][facility]CBC (INCLUDES DIFF/PLT)on 44-30-3340Wsgdjhjsc (Bld) [#/Vol]0.087 10*3/uLNormal0-200Quest DiagnosticsComment on above:Performed By: #### 615, 32616, 7600, 6399, 56482, 5616, 96913, 4021 #### [facility] [place] [address], [address] [place] [address] Level Vial Curvature Gauger: Dylan Cooley MDBasophils/100 WBC (Bld)1.3 %NormalQuest DiagnosticsComment on above:Performed By: #### 615, 76870, 7600, 6399, 50612, 5616, 29005, 4021 #### [facility] [place] [address] [address] , [address] [place] [address] Level Vial Curvature Gauger: Dylan Cooley MDEosinophils (Bld) [#/Vol]0.141 10*3/uLNormal 15-500Quest DiagnosticsComment on above:Performed By: #### 615, 42688, 7600, 6399, 49732, 5616, 10362, 4021 #### [facility] [place] [address] [address] , [address] [place] [address] Level Vial Curvature Gauger: Dylan MOOREosinophils/100 WBC (Bld)2.1 %NormalQuest DiagnosticsComment on above:Performed By: #### 615, 11453, 7600, 6399, 32093, 5616, 91550, 4021 #### [facility] [place] [address] Level Vial Curvature Gauger: Dylan Cooley MDErythrocyte distribution width (RBC) [Ratio] 12.8 %Arxiah33.0-15.0Quest DiagnosticsComment on above:Performed By: #### 615, 55613, 7600, 6399, 70227, 5616, 81295, 4021 #### [facility] [place] [address] Level Vial Curvature Gauger: Dylan Cooley MDHematocrit (Bld) [Volume fraction]41.1 %Normal 35.0-45.0Quest DiagnosticsComment on above:Performed By: #### 615, 32248, 7600, 6399, 90218, 5616, 65749, 4021 #### [facility] [place] [address] Level Vial Curvature Gauger: Dylan Cooley MDHemoglobin (Bld) [Mass/Vol]14.0 g/dLNormal 11.7-15.5Quest DiagnosticsComment on above:Performed By: #### 615, 11180, 7600, 6399, 59854, 5616, 28609, 4021 #### [facility] [place] [address] Level Vial Curvature Gauger: Dylan Cooley MDLymphocytes (Bld) [#/Vol]1.534 10*3/uLNormal 850-3900Quest DiagnosticsComment on above:Performed By: #### 615, 48675, 7600, 6399, 44205, 5616, 14990, 4021 #### [facility] [place] [address] Level Vial Curvature Gauger: Dylan Cooley MDLymphocytes/100 WBC (Bld)22.9 %NormalQuest DiagnosticsComment on above:Performed By: #### 615, 42166, 7600, 6399, 55584, 5616, 24408, 4021 #### [facility] of [place] [address], [address] [place] [address] Level Vial Curvature Gauger: Dylan RINGCH (RBC) [Entitic mass]32.7 naKdwoba48.0-33.0 Quest DiagnosticsComment on above:Performed By: #### 615, 64626, 7600, 6399, 96771, 5616, 31755, 4021 #### [facility] of [place] [address], [address] [place] [address] Level Vial Curvature Gauger: Dylan RINGCHC (RBC) [Mass/Vol]34.1 g/xTPwxipu44.0-36.0 Quest DiagnosticsComment on above:Result Comment: For adults, a slight decrease in the calculated MCHC value (in the range of 30 to 32 g/dL) is most likely not clinically significant; however, it should be interpreted with caution in correlation with other red cell parameters and the patient's clinical condition.Performed By: #### 615, 42156, 7600, 6399, 36050, 5616, 66933, 4021 #### [facility] [place] [address] , [address] [place] [address] Level Vial Curvature Gauger: Dylan RINGCV (RBC) [Entitic vol]96.0 iWLzsqug03.0-100.0 [facility] DiagnosticsComment on above:Performed By: #### 615, 35062, 7600, 6399, 63255, 5616, 22311, 4021 #### [facility] [place] [address] , [address] [place] [address] Level Vial Curvature Gauger: Dylan RINGonocytes (Bld) [#/Vol]0.509 10*3/uLNormal 200-950Quest DiagnosticsComment on above:Performed By: #### 615, 77919, 7600, 6399, 49487, 5616, 38324, 4021 #### [facility] [place] [address], [address] [place] [address] Level Vial Curvature Gauger: Dylan Cooley MDMonocytes/100 WBC (Bld)7.6 %NormalQuest DiagnosticsComment on above:Performed By: #### 615, 95287, 7600, 6399, 88485, 5616, 00301, 4021 #### [facility] [place] [address] , [address] [place] [address] Level Vial Curvature Gauger: Dylan Cooley MDNeutrophils (Bld) [#/Vol]4.429 10*3/uLNormal 1500-7800Quest DiagnosticsComment on above:Performed By: #### 615, 12210, 7600, 6399, 37189, 5616, 53379, 4021 #### [facility] of [address], [address] [place] [address] Level Vial Curvature Gauger: Dylan Cooley MDNeutrophils/100 WBC (Bld)66.1 %NormalQuest DiagnosticsComment on above:Performed By: #### 615, 00201, 7600, 6399, 38660, 5616, 47619, 4021 #### [facility] of [address], [address] [place] [address] Level Vial Curvature Gauger: Dylan Cooley MDPlatelet mean volume (Bld) [Entitic vol]9.2 fL Normal7.5-12.5Quest DiagnosticsComment on above:Performed By: #### 615, 17155, 7600, 6399, 72067, 5616, 16272, 4021 #### [facility] [place] [address] , [address] [place] [address] Level Vial Curvature Gauger: Dylan Cooley MDPlatelets (Bld) [#/Vol]403 10*3/pPZqcz158-207 [facility]osticsComment on above:Performed By: #### 615, 12992, 7600, 6399, 74327, 5616, 55628, 4021 #### [facility] [place] [address] , [address] [place] [address] Level Vial Curvature Gauger: Dylan Cooley MDRBC (Bld) [#/Vol]4.28 10*6/uLNormal3.80-5.10 [facility]osticsComment on above:Performed By: #### 615, 63979, 7600, 6399, 18120, 5616, 83530, 4021 #### [facility] of [address], [address] [place] [address] Level Vial Curvature Gauger: Dylan Cooley MDWBC (d) [#/Vol]6.7 10*3/uLNormal3.8-10.8 [facility]osticsComment on above:Performed By: #### 615, 29629, 7600, 6399, 32394, 5616, 73034, 4021 #### [facility] [place] [address] Level Vial Curvature Gauger: Dylan Cooley MDCOMPREHENSIVE METABOLIC PANEL 07-03-2025 Albumin [Mass/Vol]4.3 g/dLNormal3.6-5.1Quest DiagnosticsComment on above: Performed By: #### 615, 67026, 7600, 6399, 16749, 5616, 23901, 4021 #### [facility] [place] [address] Level Vial Curvature Gauger: Dylan Cooley MDAlbumin/Globulin [Mass ratio]1.7 {ratio}Normal 1.0-2.5Quest DiagnosticsComment on above:Performed By: #### 615, 05634, 7600, 6399, 26290, 5616, 21833, 4021 #### [facility] of [address], [address] [place] [address] Level Vial Curvature Gauger: Dylan Cooley MDALP [Catalytic activity/Vol]64 U/IPpibif26-091 [facility]osticsComment on above:Performed By: #### 615, 11766, 7600, 6399, 15824, 5616, 10162, 4021 #### [facility] of [address], [address] [place] [address] Level Vial Curvature Gauger: Dylan Cooley MDALT [Catalytic activity/Vol]31 U/LHigh6-29 [facility]osticsComment on above:Performed By: #### 615, 83868, 7600, 6399, 91289, 5616, 03992, 4021 #### [facility] of [address], [address] [place] [address] Level Vial Curvature Gauger: Dylan Cooley MDAST [Catalytic activity/Vol]28 U/JSlfjkr25-18 [facility]osticsComment on above:Performed By: #### 615, 83652, 7600, 6399, 23580, 5616, 42224, 4021 #### [facility] [address], [address] [place] [address] Level Vial Curvature Gauger: Dylan Cooley MDBilirubin [Mass/Vol]0.6 mg/dLNormal0.2-1.2 [facility]osticsComment on above:Performed By: #### 615, 19973, 7600, 6399, 68308, 5616, 92100, 4021 #### [facility] of [address], [address] [place] [address] Level Vial Curvature Gauger: Dylan Cooley MDBUN/CREATININE RATIOSEE NOTE:Normal6-22Quest DiagnosticsComment on above:Result Comment: Not Reported: BUN and Creatinine are within reference range.Performed By: #### 615, 74204, 7600, 6399, 72783, 5616, 12130, 4021 #### [facility] of [address], [address] [place] [address] Level Vial Curvature Gauger: Dylan Cooley MDCalcium [Mass/Vol]8.9 mg/dLNormal8.6-10.2Quest DiagnosticsComment on above:Performed By: #### 615, 52559, 7600, 6399, 79766, 5616, 32780, 4021 #### [facility] of [address], [address] [place] [address] Level Vial Curvature Gauger: Dylan Cooley MDChloride [Moles/Vol]104 mmol/KJadifd48-384 [facility]osticsComment on above:Performed By: #### 615, 14264, 7600, 6399, 11863, 5616, 11707, 4021 #### [facility] [place] [address] Level Vial Curvature Gauger: Dylan Cooley MDCO2 [Moles/Vol]29 mmol/QUffutt24-75Inhuw DiagnosticsComment on above:Performed By: #### 615, 79984, 7600, 6399, 37279, 5616, 66818, 4021 #### [facility] [address], [address] [place] [address] Level Vial Curvature Gauger: Dylan TANGreatinine [Mass/Vol]0.98 mg/dLNormal0.50-0.99 [facility]osticsComment on above:Performed By: #### 615, 58513, 7600, 6399, 17544, 5616, 26793, 4021 #### [facility] [place] [address] Level Vial Curvature Gauger: Dylan Cooley MDGFR/1.73 sq M.predicted among non-blacks MDRD (S/P/Bld) [Vol rate/Area]71 mL/min/{1.73_m2}Normal> OR = 60[facility] Comment on above:Performed By: #### 615, 66517, 7600, 6399, 97715, 5616, 61156, 4021 #### [facility] [place] [address] Level Vial Curvature Gauger: Dylan Cooley MDGlobulin (S) [Mass/Vol]2.5 g/dLNormal1.9-3.7 [facility]osticsComment on above:Performed By: #### 615, 18645, 7600, 6399, 18958, 5616, 70165, 4021 #### [facility] [place] [address] Level Vial Curvature Gauger: Dylan Cooley MDGlucose [Mass/Vol]99 mg/yODhudrm14-56Eqjwq DiagnosticsComment on above:Result Comment: Fasting reference intervalPerformed By: #### 615, 79856, 7600, 6399, 31631, 5616, 45886, 4021 #### [facility] [place] [address] Level Vial Curvature Gauger: Dylan Cooley MDPotassium [Moles/Vol]4.2 mmol/LNormal3.5-5.3 [facility]osticsComment on above:Performed By: #### 615, 73139, 7600, 6399, 20397, 5616, 13139, 4021 #### [facility] [place] [address] Level Vial Curvature Gauger: Dylan Cooley MDProtein [Mass/Vol]6.8 g/dLNormal6.1-8.1Quest DiagnosticsComment on above:Performed By: #### 615, 87695, 7600, 6399, 57046, 5616, 20306, 4021 #### [facility] [place] [address] Level Vial Curvature Gauger: Dylan Cooley MDSodium [Moles/Vol]141 mmol/MDnhxxu931-500Rigsp DiagnosticsComment on above:Performed By: #### 615, 96872, 7600, 6399, 15456, 5616, 22269, 4021 #### [facility] [place] [address] Level Vial Curvature Gauger: Dylan Cooley MDUrea nitrogen [Mass/Vol]13 mg/dLNormal7-25 [facility]osticsComment on above:Performed By: #### 615, 41622, 7600, 6399, 47108, 5616, 75412, 4021 #### [facility] [place] [address] Level Vial Curvature Gauger: Dylan Cooley MDESTRADIOLon 64-06-6083JOWNSXDFU<30NormalQuest DiagnosticsComment on above:Result Comment: Reference Range Female: Follicular Phase: 30-144 Mid-Cycle: 64-357 Luteal Phase: 56-214 Postmenopausal: < or = 31 Reference range established on post-pubertal patient population. No pre-pubertal reference range established using this assay. For any patients for whom low Estradiol levels are anticipated (e.g. males, pre-pubertal children and hypogonadal/post-menopausal females), the [employer] [facility] Estradiol, Ultrasensitive, LCMSMS assay is recommended (order code 28433). Please note: patients being treated with the drug fulvestrant (Faslodex(R)) have demonstrated significant interference in immunoassay methods for estradiol measurement. The cross reactivity could lead to falsely elevated estradiol test results leading to an inappropriate clinical assessment of estrogen status. [employer] order code 18764-Migcuflsr, Ultrasensitive LC/MS/MS demonstrates negligible cross reactivity with fulvestrant.Performed By: #### 615, 66529, 7600, 6399, 42641, 5616, 58331, 4021 #### [facility] [address], [address] [place] [address] Level Vial Curvature Gauger: Dylan Wright 23-45-6772JDU1.0 mIU/mLNormalQuest DiagnosticsComment on above:Result Comment: Reference Range Follicular Phase 2.5-10.2 Mid-cycle Peak 3.1-17.7 Luteal Phase 1.5- 9.1 Postmenopausal 23.0-116.3Performed By: #### 615, 95220, 7600, 6399, 94173, 5616, 96473, 4021 #### [facility] [address], [address] [place] [address] Level Vial Curvature Gauger: Dylan GALDAMEZ, TIBC AND FERRITIN PANELon 07-03-2025% KZVMGWLKXE96 % (calc)Mbnfof09-15Cvxvt DiagnosticsComment on above:Order Comment: FASTING:YES FASTING: YESPerformed By: #### 615, 79308, 7600, 6399, 40104, 5616, 15557, 4021 #### [facility] [address], [address] [place] [address] Level Vial Curvature Gauger: Dylan Cooley MDFerritin [Mass/Vol]19 ng/iBPunofd15-354Ldatz DiagnosticsComment on above:Order Comment: FASTING:YES FASTING: YESPerformed By: #### 615, 35402, 7600, 6399, 63762, 5616, 04072, 4021 #### [facility] [place] [address] Level Vial Curvature Gauger: Dylan GALDAMEZ BINDING TTGUROBI686 mcg/dL (calc)Normal 250-450Quest DiagnosticsComment on above:Order Comment: FASTING:YES FASTING: YESPerformed By: #### 615, 26886, 7600, 6399, 54990, 5616, 75933, 4021 #### [facility] [address], [address] [place] [address] Level Vial Curvature Gauger: Dylan GALDAMEZ, CVTYJ860 mcg/xGNsougm53-499Dmplw DiagnosticsComment on above:Order Comment: FASTING:YES FASTING: YESPerformed By: #### 615, 58808, 7600, 6399, 93709, 5616, 34616, 4021 #### [facility] [address], [address] [place] [address] Level Vial Curvature Gauger: Dylan Alegria 36-26-3169DQ5.0 mIU/mLNormalQuest DiagnosticsComment on above:Result Comment: Reference Range Follicular Phase 1.9-12.5 Mid-Cycle Peak 8.7-76.3 Luteal Phase 0.5-16.9 Postmenopausal 10.0-54.7Performed By: #### 615, 62809, 7600, 6399, 29447, 5616, 86708, 4021 #### [facility] [address], [address] [place] [address] Level Vial Curvature Gauger: Dylan Cooley MDLIPID PANEL, STANDARDon 42-98-1442Dvibxleuxkp [Mass/Vol]200 mg/dLHigh<200Quest DiagnosticsComment on above:Performed By: #### 615, 99526, 7600, 6399, 70270, 5616, 35062, 4021 #### [facility] [address], [address] [place] [address] Level Vial Curvature Gauger: Dylan TANGholesterol in HDL [Mass/Vol]55 mg/dLNormal> OR = 50Quest DiagnosticsComment on above:Performed By: #### 615, 34001, 7600, 6399, 56020, 5616, 60539, 4021 #### [facility] [address], [address] [place] [address] Level Vial Curvature Gauger: Dylan TANGholesterol in LDL [Mass/Vol]120 mg/dLHigh [facility]osticsComment on above:Result Comment: Reference range: <100 Desirable range <100 mg/dL for primary prevention; <70 mg/dL for patients with CHD or diabetic patients with > or = 2 CHD risk factors. LDL-C is now calculated using the Ericka calculation, which is a validated novel method providing better accuracy than the Friedewald equation in the estimation of LDL-C. Aidan SS et al. SAMI. 2013;310(19): 9342-8838 (http://education.Hur[employer]ot/faq/CAG846)Performed By: #### 615, 72791, 7600, 6399, 48137, 5616, 06248, 4021 #### [facility] [address], [address] [place] [address] Level Vial Curvature Gauger: Dylan Diehlsttad.total/Cholesterol in HDL [Mass ratio]3.6 {ratio}Normal<5.0Quest DiagnosticsComment on above:Performed By: #### 615, 66004, 7600, 6399, 64645, 5616, 61358, 4021 #### [facility] [address], [address] [place] [address] Level Vial Curvature Gauger: Dylan MARRERO HDL OEPMGGQTMFS113 mg/dL (calc)High<130 [facility]osticsComment on above:Result Comment: For patients with diabetes plus 1 major ASCVD risk factor, treating to a non-HDL-C goal of <100 mg/dL (LDL-C of <70 mg/dL) is considered a therapeutic option.Performed By: #### 615, 79247, 7600, 6399, 49136, 5616, 39295, 4021 #### [facility] [address] [place] [address], [address] [place] [address] Level Vial Curvature Gauger: Dylan Cooley MDTriglyceride [Mass/Vol]136 mg/dLNormal<150 [facility]osticsComment on above:Performed By: #### 615, 67226, 7600, 6399, 48419, 5616, 78960, 4021 #### [facility] [address] [facility], [address] [place] [address] Level Vial Curvature Gauger: Dylan Cooley MDTS W/REFLEX TO FT4on 24-16-6680VXE W/REFLEX TO FT41.40 mIU/LNormalQuest DiagnosticsComment on above:Result Comment: Reference Range > or = 20 Years 0.40-4.50 Ranges First trimester 0.26-2.66 Second trimester 0.55-2.73 Third trimester 0.43-2.91Performed By: #### 615, 98489, 7600, 6399, 68916, 5616, 14591, 4021 #### [facility] [address], [address] [place] [address] Level Vial Curvature Gauger: Dylan Cooley MDVITAMIN D,25-OH,TOTAL,IAon 57-85-9336VBDJECK D,25-OH,TOTAL,IA65 ng/fZBfrosv80-318Zrbvr DiagnosticsComment on above:Result Comment: Vitamin D Status 25-OH Vitamin D: Deficiency: <20 ng/mL Insufficiency: 20 - 29 ng/mL Optimal: > or = 30 ng/mL For 25-OH Vitamin D testing on patients on D2-supplementation and patients for whom quantitation of D2 and D3 fractions is required, the QuestAssureD(TM) 25-OH VIT D, (D2,D3), LC/MS/MS is recommended: order code [id number] (patients >2yrs). See Note 1 Note 1 For additional information, please refer to http://education.[employer]/faq/SUN763 (This link is being provided for informational/ educational purposes only.)Performed By: #### 615, 05651, 7600, 6399, 02277, 5616, 06586, 4021 #### [facility] [address], [address] [place] [address] Level Vial Curvature Gauger: Dylan Cooley MDLetter (Out)on 88-50-7134Hytnbt (Out)[id number] Linda Alvarado 1975 F Date Provider Department Center 06/30/2025 None-None [facility] Family History Problem Relation Age of Onset Cancer Mother Early natural Mother Migraines Mother Cancer Paternal Grandfather Diabetes Paternal Grandfather Scoliosis Paternal Grandmother COPD Paternal Grandmother Alcohol abuse Father Coronary artery disease Father Alzheimer's disease Maternal Grandmother Family Status - Relation Status Age at Mother Paternal Grandfather Paternal Grandmother Father Alive Maternal Grandmother AliveNormalUniversOur Lady of Mercy Hospital29on [id number] by: TANESHA CALLE on: 06/24/2025 07:09 AM Modules accepted: OrdersNormalUniversity Parkwood HospitalFollow-Upon [id number] Linda Alvarado 1975 F Date Provider Department Center 06/22/2025 MARCELLE HEBERT [facility] Family History Problem Relation Age of Onset Cancer Mother Early natural Mother Migraines Mother Cancer Paternal Grandfather Diabetes Paternal Grandfather Scoliosis Paternal Grandmother COPD Paternal Grandmother Alcohol abuse Father Coronary artery disease Father Alzheimer's disease Maternal Grandmother Family Status - Relation Status Age at Mother Paternal Grandfather Paternal Grandmother Father Alive Maternal Grandmother Alive Level of Service:76952 [place] OFFICE/OUTPATIENT ESTABLISHED MOD MDM 30 MIN Reason for Visit and Comments: Follow-up [458839] - S/P ROMOE @ L4/5NoFormerly [facility] HospitalniSelect [facility] Orders Onlyon [id number] [id number] Linda Alvarado 1975 Date Provider Department Center 06/16/2025 [id number]-ZBQVMMARCELLE ALSTON [facility] Family History Problem Relation Age of Onset Cancer Mother Early natural Mother Migraines Mother Cancer Paternal Grandfather Diabetes Paternal Grandfather Scoliosis Paternal Grandmother COPD Paternal Grandmother Alcohol abuse Father Coronary artery disease Father Alzheimer's disease Maternal Grandmother Family Status - Relation Status Age at Mother Paternal Grandfather Paternal Grandmother Father Alive Maternal Grandmother AliveNormalUniSelect Medical [facility] Rehabilitation Hospital - DublinRefillon [id number] Linda Alvarado 1975 F Date Provider Department Center 06/16/2025 [id number] KEITH [facility] Family History Problem Relation Age of Onset Cancer Mother Early natural Mother Migraines Mother Cancer Paternal Grandfather Diabetes Paternal Grandfather Scoliosis Paternal Grandmother COPD Paternal Grandmother Alcohol abuse Father Coronary artery disease Father Alzheimer's disease Maternal Grandmother Family Status - Relation Status Age at Mother Paternal Grandfather Paternal Grandmother Father Alive Maternal Grandmother Alive Reason for Visit and Comments: Med Refill [[id number]]NormalHarrison Community HospitalHbA1c (Bld) [Mass fraction]on 46-71-2519Gejrfmnnhtgsez and review of laboratory resultsAbnormal [facility] HealthcareLaboratory - Hematology and Cell countson 24-17-7811SzZ9b (Bld) [Mass fraction]5.8 %[facility] HealthcareHPon 02-61-5518SQ History Of Present Illness Linda Alvarado is a 49 y.o. female presenting with history of chronic low back pain and radicular symptoms. She rates the pain 8/10 scale. Pt has tried multiple conservative therapies with limited or temporary benefit. Given ongoing pain with functional limitation, the pt presents today for a left paramedian LESI at L4-5 for diagnostic and therapeutic management. . Past Medical History She has a past medical history of Ankle sprain (03/2024), Fracture lumbar vertebra-closed (CMS/HCC) (07/2024), Lumbosacral disc disease (07/2024), Migraine (), Scoliosis (07/2024), Spinal stenosis (07/2024), Tear of meniscus of knee (07/2019), and Tibia/fibula fracture (07/2019). Surgical History She has a past surgical history that includes Carpal tunnel release (03/2006); ORIF tibia fracture (07/2019); Cholecystectomy; Knee surgery; Carpal tunnel release; and orthopedic surgery (07/07/2019). Social History She reports that she has never smoked. She has never used smokeless tobacco. She reports that she does not drink alcohol and does not use drugs. Family History Family History[1] Allergies Clarithromycin and Sulfa (sulfonamide antibiotics) Medications Prescriptions Prior to Admission[2] Airway Assessment and ASA Score: Mallampati:: III TM distance:: <3 FB Neck ROM:: Full Review of Systems Constitutional: Negative. HENT: Negative. Eyes: Negative. Respiratory: Negative. Cardiovascular: Negative. Gastrointestinal: Negative. Endocrine: Negative. Genitourinary: Negative. Musculoskeletal: Positive for back pain and myalgias. Skin: Negative. Allergic/Immunologic: Negative. Neurological: Negative. Hematological: Negative. Psychiatric/Behavioral: Negative. Last Recorded Vitals Visit Vitals BP 134/77 (BP Location: Left arm, Patient Position: Sitting) Pulse 87 Resp 16 Ht 1.499 m (4' 11 ) Wt 86.2 kg (190 lb) LMP 05/20/2025 SpO2 99% BMI 38.38 kg/m??? OB Status Perimenopausal Smoking Status Never BSA 1.89 m??? Physical Exam Vitals and nursing note reviewed. Constitutional: Appearance: Normal appearance. HENT: Head: Normocephalic and atraumatic. Right Ear: External ear normal. Left Ear: External ear normal. Nose: Nose normal. Mouth/Throat: Mouth: Mucous membranes are moist. Pharynx: Oropharynx is clear. Eyes: Extraocular Movements: Extraocular movements intact. Cardiovascular: Rate and Rhythm: Normal rate and regular rhythm. Pulses: Normal pulses. Heart sounds: Normal heart sounds. Pulmonary: Effort: Pulmonary effort is normal. Breath sounds: Normal breath sounds. Abdominal: Palpations: Abdomen is soft. Musculoskeletal: Cervical back: Normal range of motion. Lumbar back: Spasms, tenderness and bony tenderness present. Decreased range of motion. Skin: General: Skin is warm and dry. Capillary Refill: Capillary refill takes less than 2 seconds. Neurological: General: No focal deficit present. Mental Status: She is alert and oriented to person, place, and time. Psychiatric: Mood and Affect: Mood normal. Relevant Lab Results Lab Results Component Value Date CO2 27 07/08/2019 BUN 10 07/08/2019 CALCIUM 8.8 07/08/2019 EGFR >60 07/08/2019 EGFR >60 07/08/2019 Relevant Imaging Results [place] in Pain Clinic Narrative: STUDY: [place] IN PAIN CLINIC CLINICAL HISTORY: Intervertebral disc disorder COMPARISON: None. FINDINGS: Cumulative Air Kerma: 5.35 mGy Fluoroscopic support for procedure in progress. Images show needle projecting over the lower lumbar spine with contrast injection Impression: 1. Intraprocedural fluoroscopy for the purposes of treatment planning and localization; findings as above 2. Please refer to final operative note/dictation for full details Electronically signed: Eliezer Wei. Assessment/Plan Active Problems: There are no active Hospital Problems. Problem List Items Addressed This Visit None Visit Diagnoses Intervertebral disc disorders with radiculopathy, lumbar region Relevant Orders EPIDURAL LUMBAR/SACRAL/CAUDAL W/ IMAG GUIDANCE Return to clinic in 4-5 weeks Nohemi Carvajal MD, PGY 1 [1] Family History Problem Relation Name Age of Onset Cancer Mother Marie Jacky Early natural Mother Marie Jacky Migraines Mother Marie Jacky Cancer Paternal Grandfather Howie Jacky Diabetes Paternal Grandfather Howie Jacky Scoliosis Paternal Grandmother Robin Jacky COPD Paternal Grandmother Robin Jacky Alcohol abuse Father Mane Jacky Coronary artery disease Father Mane Jacky Alzheimer's disease Maternal Grandmother Neelam Garcia [2] (Not in a hospital admission)[facility] NURSNOTEon [id number] Pain Management Nursing Note / Nurse Post-Call Note Narrative 05/26/25 1201 Physical Condition (Summarize discussion in comments) Have you had trouble breathing? No Have you had a sore throat? No Have you vomited or felt nauseated? No Have you had a fever? No Pain Score 4 Follow Up (Summarize discussion in comments) Have you done any of the following since your surgery? None Patient given contact information for surgery department and physician Yes Pre-Procedure Pain (scale 0-10): 6/10 Post-Procedure Pain (scale 0-10): 0/10 Pain Today (scale 0-10): 4/10 The patient reports no concerns/doing well since the procedure. No new complaints or issues were noted during the follow-up call. Patient is experiencing slight improvement in pain levels. The patient was reminded to apply cold pack on and off for 20 minutes at a time to help with discomfort and to take Tylenol or ibuprofen as needed, if able, to manage pain. Patient educated that it can take up to 3-7 days for the steroid to take full effect. Patient was reminded to follow the prescribed aftercare instructions, and to reach out if any changes occur or if they have further questions. Next steps: Follow-up in clinicNormalUniSelect Medical [facility]Health Rehabilitation Hospital - DublinOrders Onlyon [id number] [id number] Linda Alvarado 1975 Provider Department Center 05/11/2025 MARCELLE HEBERT [facility] Family History Problem Relation Age of Onset Cancer Mother Early natural Mother Migraines Mother Cancer Paternal Grandfather Diabetes Paternal Grandfather Scoliosis Paternal Grandmother COPD Paternal Grandmother Alcohol abuse Father Coronary artery disease Father Alzheimer's disease Maternal Grandmother Family Status - Relation Status Age at Mother Paternal Grandfather Paternal Grandmother Father Alive Maternal Grandmother [facility] WestRefillon [id number] Linda Alvarado 1975 Provider Department [place] 05/11/2025 42303-JUPPHMARCELLE ALSTON MP PAIN Medical Pavi Family History Problem Relation Age of Onset Cancer Mother Early natural Mother Migraines Mother Cancer Paternal Grandfather Diabetes Paternal Grandfather Scoliosis Paternal Grandmother COPD Paternal Grandmother Alcohol abuse Father Coronary artery disease Father Alzheimer's disease Maternal Grandmother Family Status - Relation Status Age at Mother Paternal Grandfather Paternal Grandmother Father Alive Maternal Grandmother Alive Reason for Visit and Comments: Med Refill [[id number]][facility] HospitalLetter (Out)on [phone] (Out)[id number] Linda Alvarado 1975 Provider Department Center 05/04/2025 None-None Pain None Family History Problem Relation Age of Onset Cancer Mother Early natural Mother Migraines Mother Cancer Paternal Grandfather Diabetes Paternal Grandfather Scoliosis Paternal Grandmother COPD Paternal Grandmother Alcohol abuse Father Coronary artery disease Father Alzheimer's disease Maternal Grandmother Family Status - Relation Status Age at Mother Paternal Grandfather Paternal Grandmother Father Alive Maternal Grandmother AliveSumma Health [facility] Prov Note on [id number] Prov NoteCHIEF COMPLAINT Chief Complaint Patient presents with Leg Injury Tingling Left HPI Linda Alvarado is a 49 y.o. female who presents with concern for painful infection in her left lower extremity. Symptoms began about 4-5 days prior to presentation. The patient scraped her leg on a mop bucket and abraded the skin. Since that time the area discoloration around has increased in size. It has begun to eight and to tingle. The skin has felt warm. There has been increasing redness. She is concerned that she may be developing a cellulitis, as she has experienced cellulitis previously and states that this is what it was like for her with that previous infection. She is not having any fevers. No chills. She denies nausea, vomiting, or constitutional flu-like symptoms. No drainage. She is not having any focal pain of the ankle knee joint. At this time the patient has no additional symptoms. Patient has no additional concerns. REVIEW OF SYSTEMS Constitutional: No fevers. Musculoskeletal: No joint pain. See HPI for further details. ALLERGIES Allergies(1) PAST MEDICAL HISTORY Past Medical History(2) SOCIAL HISTORY Social History Socioeconomic History Marital status: Spouse name: Not on file Number of children: Not on file Years of education: Not on file Highest education level: Not on file Occupational History Not on file Tobacco Use Smoking 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 Smokeless tobacco: Never Substance and Sexual Activity Alcohol use: Never Drug use: Never Sexual activity: Not on file Other Topics Concern Not on file Social History Narrative Not on file Social Drivers of Health Financial Resource Strain: Low Risk (03/16/2025) Received from [facility] Overall Financial Resource Strain (CARDIA) Difficulty of Paying Living Expenses: Not hard at all Food Insecurity: No Food Insecurity (03/16/2025) Received from [facility] Hunger Vital Sign Within the past 12 months, you worried that your food would run out before you got the money to buy more.: Never true Ran Out of Food in the Last Year: Not on file Transportation Needs: No Transportation Needs (03/16/2025) Received from [facility] Transportation In the past 12 months, has lack of transportation kept you from medical appointments or from getting medications?: No Lack of Transportation (Non-Medical): Not on file Physical Activity: Insufficiently Active (07/15/2023) Received from [facility] Exercise Vital Sign Days of Exercise per Week: 2 days Minutes of Exercise per Session: 10 min Stress: No Stress Concern Present (07/15/2023) Received from [facility] [place] [employer] Occupational [employer] - Occupational Stress Questionnaire Feeling of Stress : Not at all Social Connections: Socially Integrated (07/15/2023) Received from [facility] Social Connection and Isolation Panel (NHANES) Frequency of Communication with Friends and Family: Twice a week Frequency of Social Gatherings with Friends and Family: More than three times a week Attends Advent Services: More than 4 times per year Active Member of Clubs or Organizations: Yes Attends Club or Organization Meetings: More than 4 times per year Marital Status: Intimate Partner Violence: Not At Risk (03/31/2025) Received from [facility] Humiliation, Afraid, Rape, and Kick questionnaire Fear of Current or Ex-Partner: No Emotionally Abused: No Physically Abused: No Sexually Abused: No Housing Stability: Low Risk (03/16/2025) Received from [facility] Housing Stability Vital Sign In the last 12 months, was there a time when you were not able to pay the mortgage or rent on time?: No Number of Times Moved in the Last Year: Not on file At any time in the past 12 months, were you homeless or living in a group home (including now)?: No PHYSICAL EXAM Vital Signs: BP (!) 138/93 Pulse 69 Temp (!) 97.4 F (36.3 C) (Oral) Resp 16 Ht 5' (1.524 m) Wt 185 lb (83.9 kg) SpO2 98% BMI 36.13 kg/m Constitutional: No acute distress. Non-toxic in appearance. Alert. Conversant. Cooperative with examination. HENT: Normocephalic, Atraumatic, Oropharynx appears moist. Cardiovascular: Regular heart rate. Appears peripherally well perfused. Normal peripheral capillary refill. Rhythm normal. Respiratory: No respiratory distress. Normal respiratory effort. Musculoskeletal: Extremity: No acute asymmetric lower extremity swelling. No calf tenderness. Skin: Warm. Dry. Left lower extremity with discrete area of erythema, palpable warmth, tenderness at the anterior smith roughly 14 cm by 8 cm. No drainage. No induration. No flocculence. Neurologic: Alert and properly oriented. Answers questions appropriately. Left lower extremity distal sensation intact (more content not included)...[facility]onED Noteon [id number] NoteAce wrap to left lower legNoGuernsey Memorial HospitalED NoteLeft leg outlined with surgical marker per Dr. Fuentes request.[facility]ED Triage Noon [id number] Triage NoPt ambulatory to ED with c/o injuring right lower leg last . Pt almost fell and caught herself while scraping her leg down a mop bucket. Pt reports bruising has gotten worse and now the leg is tingling around the site of the injury. Reports leg is painful to touch. Ambulatory without assistance. A&Ox4 [facility] HospitalProcedure Visiton [id number] Linda Alvarado 1975 Provider Department Center 03/31/2025 499-SHWETA MICHAEL MP ORTHO MPORTHO Family History Problem Relation Age of Onset Cancer Mother Early natural Mother Migraines Mother Cancer Paternal Grandfather Diabetes Paternal Grandfather Scoliosis Paternal Grandmother COPD Paternal Grandmother Alcohol abuse Father Coronary artery disease Father Alzheimer's disease Maternal Grandmother Family Status - Relation Status Age at Mother Paternal Grandfather Paternal Grandmother Father Alive Maternal Grandmother Alive Level of Service:44420 [place] OFFICE/OUTPT VISIT,PROCEDURE ONLY Reason for Visit and Comments: Pain [136] - DurolaneNormalUniversity of Memorial Herm[facility] Sugar Land HospitalOffice Visiton [id number]-up [id number] Linda Alvarado 1975 Date Provider Department Center 03/16/2025 92882-ALMTUMARCELLE KEITH MP PAIN Medical Pavi Family History Problem Relation Age of Onset Cancer Mother Early natural Mother Migraines Mother Cancer Paternal Grandfather Diabetes Paternal Grandfather Scoliosis Paternal Grandmother COPD Paternal Grandmother Alcohol abuse Father Coronary artery disease Father Alzheimer's disease Maternal Grandmother Family Status - Relation Status Age at Mother Paternal Grandfather Paternal Grandmother Father Alive Maternal Grandmother Alive Level of Service:74230 [place] OFFICE/OUTPATIENT NEW MODERATE MDM 45 MINUTES Reason for Visit and Comments: New Patient [632] - Lower back painNormalUniSelect Medical [facility]36on [id number] asking if the durolane was approved?[facility] HospitalOrders Onlyon [phone] [id number] Linda Alvarado N 1975 Provider Department Center 03/11/2025 Sen2-LILIA JOHNSON MP ORTHO MPORTHO Family History Problem Relation Age of Onset Cancer Mother Cancer Paternal Grandfather Diabetes Paternal Grandfather Scoliosis Paternal Grandmother Family Status - Relation Status Age at Mother Paternal Grandfather Paternal GrandmotherNormalHarrison Community HospitalTelephoneon [id number] Linda Alvarado N 1975 Provider Department Center 03/11/2025 3625-FRANKIE VELASQUEZ MP ORTHO MPORTHO Family History Problem Relation Age of Onset Cancer Mother Early natural Mother Migraines Mother Cancer Paternal Grandfather Diabetes Paternal Grandfather Scoliosis Paternal Grandmother COPD Paternal Grandmother Alcohol abuse Father Coronary artery disease Father Alzheimer's disease Maternal Grandmother Family Status - Relation Status Age at Mother Paternal Grandfather Paternal Grandmother Father Alive Maternal Grandmother AliveNormalUniSelect Medical [facility] Rehabilitation Hospital - DublinFollow-Upon [id number] Linda Alvarado N 1975 Provider Department Center 02/10/2025 Deysi-SHWETA MICHAEL MP ORTHO MPORTHO Family History Problem Relation Age of Onset Cancer Mother Cancer Paternal Grandfather Diabetes Paternal Grandfather Scoliosis Paternal Grandmother Family Status - Relation Status Age at Mother Paternal Grandfather Paternal Grandmother Level of Service:35211 [place] OFFICE/OUTPATIENT ESTABLISHED LOW MDM 20 MIN Reason for Visit and Comments: Pain [136] - Right new pain as well. She has herniated disc,she can not get into pain clinic until 03/16/15. She had steroid shot in October and the pain is coming back in her knee.[facility] [id number] Linda Alvarado N 1975 F Date Provider Department Center 01/30/2025 SHWETA SILVA MP ORTHO MPORTHO Family History Problem Relation Age of Onset Cancer Mother Cancer Paternal Grandfather Diabetes Paternal Grandfather Scoliosis Paternal Grandmother Family Status - Relation Status Age at Mother Paternal Grandfather Paternal Grandmother Reason for Visit and Comments: Med Refill [[id number]][facility]36on [phone] patient taking NorflexNormalUniversGeorgetown Behavioral Hospital [id number] Linda Alvarado N 1975 Date Provider Department Center 01/22/2025 SHWETA SILVA MP ORTHO MPORTHO Family History Problem Relation Age of Onset Cancer Mother Cancer Paternal Grandfather Diabetes Paternal Grandfather Scoliosis Paternal Grandmother Family Status - Relation Status Age at Mother Paternal Grandfather Paternal Grandmother Reason for Visit and Comments: Med Refill [[id number]][facility] 12-29-2024 [id number] Tuyet,Linda N 1975 Date Provider Department Center 12/29/2024 SHWETA SILVA MP ORTHO MPORTHO Family History Problem Relation Age of Onset Cancer Mother Cancer Paternal Grandfather Diabetes Paternal Grandfather Scoliosis Paternal Grandmother Family Status - Relation Status Age at Mother Paternal Grandfather Paternal Grandmother Reason for Visit and Comments: Med Refill [[id number]][facility] HospitalFollow-Upon [id number] TuyetLinda N 1975 F Date Provider Department Center 12/09/2024 SHWETA SILVA MP ORTHO MPORTHO Family History Problem Relation Age of Onset Cancer Mother Cancer Paternal Grandfather Diabetes Paternal Grandfather Scoliosis Paternal Grandmother Family Status - Relation Status Age at Mother Paternal Grandfather Paternal Grandmother Level of Service:02906 [place] OFFICE/OUTPATIENT ESTABLISHED LOW MDM 20 MIN Reason for Visit and Comments: Pain [136]NormalUnGrand Lake Joint Township District Memorial HospitalOffice Visiton 11-30-2024 Follow-up [id number] Linda Alvarado N 1975 F Date Provider Department Center 11/30/2024 SHWETA SILVA MP ORTHO MPORTHO Family History Problem Relation Age of Onset Cancer Mother Cancer Paternal Grandfather Diabetes Paternal Grandfather Scoliosis Paternal Grandmother Family Status - Relation Status Age at Mother Paternal Grandfather Paternal Grandmother Level of Service:61096 [place] OFFICE/OUTPATIENT NEW MODERATE MDM 45 MINUTES Reason for Visit and Comments: Pain [136]NormalUnGrand Lake Joint Township District Memorial Hospital36on [phone] called to schedule a new patient appointment with our office. Patient wants to be seen for: 11-16-24 Patient had X ray done at [place] Patient had 2019 done on unsure by milagros Patient saw na for this issues. They were not referred to us from this provider. This appointment is not a second opionion This appointment IS NOT related to a work related injuryNormalUniversity of Memorial Hermann [facility] Land HospitalBI MAMMOGRAM SCREENING TOMOSYNTHESIS BILATERALon 10-27-2024 BI MAMMOGRAM SCREENING TOMOSYNTHESIS BILATERALThis is a summary report. The complete report [...] Screening Mammogram ELECTRONICALLY SIGNED BY: Matty Gaitan M.D.NormalNot AvailableMR LUMBAR SPINE WO CONon [id number] [address] Magnetic Resonance Report Signed Patient: LINDA ALVARADO MR#: [id number] : 1975 Acct:[id number] Age/Sex: 49 / F ADM Date: 07/24/24 Loc: MRI Attending Dr: Cristina HUSAIN Ordering Physician: Cristina Godwin Date of Service: 07/24/24 Procedure(s): MR lumbar spine wo con Accession Number(s): [id number] cc: ELVER MENDENHALL ; Cristina Godwin [address] [address] Patient Name: LINDA ALVARADO MRN: [id number] date: 1975 Sex: F Assigned Patient Location: MRI Current Patient Location: Accession/Order Number: [id number] Exam Date: 07/24/2024 06:45 Report Date: 07/25/2024 06:31 At the request of: CRISTINA GODWIN Procedure: MR lumbar spine wo con EXAMINATION: MR lumbar spine wo con HISTORY: Scoliosis Of Lumbar Spine, Herniated Nucleus Pulposus COMPARISON: XR lumbar spine 07/03/2024, CT lumbar spine 06/22/2024 TECHNIQUE: A variety of imaging planes and parameters were utilized for visualization of suspected pathology. FINDINGS: For the purposes of numbering, sagittal T2 image # 10 extends from the T10 vertebral body superiorly to the S5-6 level inferiorly. PARASPINAL AREA: Normal with no visible mass. BONES: Prominent left convex curvature of thoracolumbar spine. No fracture or significant listhesis. CORD/CAUDA EQUINA: Normal caliber, contour, and signal intensity. DISC LEVELS: 12-L1: No significant disc/facet abnormality, spinal stenosis, or foraminal stenosis. L1-L2: Mild central canal and moderate right foramen narrowing. No significant left foramen narrowing. Broad-based disc protrusion into the right paracentral region and right foramen which displaces the central canal nerve roots, and likely compresses the descending right L2 nerve root. No significant facet arthropathy.. L2-L3: Early degenerative disc disease is present without focal protrusion or neural impingement. L3-L4: Early degenerative disc disease is present without focal protrusion or neural impingement. L4-L5: Mild foramen narrowing bilaterally without significant central canal narrowing. Mild diffuse disc bulging without disc at reduction. Mild degenerative facet arthropathy, left greater than right. L5-S1: No significant central canal or foraminal stenosis. Minimal degenerative disc disease. Moderate left facet degenerative arthropathy. MR/MR lumbar spine wo con IMPRESSION: 1. L1-L2 degenerative disc disease causing mild central canal and moderate right foramen narrowing, and likely compressing the descending L2 nerve root. Electronically authenticated by: EBEN CROWLEY Date: 07/25/2024 06:31 Dictated By: Eben Crowley M.D. Signed By: 07/25/24633 DD/ 0 TD/TT: Gift Officer:TBHRadiology, Radiologist, MD - 07/25/2024 [place] [address] Magnetic Resonance Report Signed Patient: LINDA ALVARADO MR#: [id number] : 1975 Acct:[id number] Age/Sex: 49 / F ADM Date: 07/24/24 Loc: MRI Attending Dr: Cristina HUSAIN Ordering Physician: Cristina Godwin Date of Service: 07/24/24 Procedure(s): MR lumbar spine wo con Accession Number(s): [id number] cc: ELVER MENDENHALL ; Cristina Godwin The [address] [address] Patient Name: LINDA ALVARADO MRN: [id number] date: 1975 Sex: F Assigned Patient Location: MRI Current Patient Location: Accession/Order Number: [id number] Exam Date: 07/24/2024 06:45 Report Date: 07/25/2024 06:31 At the request of: CRISTINA GODWIN Procedure: MR lumbar spine wo con EXAMINATION: MR lumbar spine wo con HISTORY: Scoliosis Of Lumbar Spine, Herniated Nucleus Pulposus COMPARISON: XR lumbar spine 07/03/2024, CT lumbar spine 06/22/2024 TECHNIQUE: A variety of imaging planes and parameters were utilized for visualization of suspected pathology. FINDINGS: For the purposes of numbering, sagittal T2 image # 10 extends from the T10 vertebral body superiorly to the S5-6 level inferiorly. PARASPINAL AREA: Normal with no visible mass. BONES: Prominent left convex curvature of thoracolumbar spine. No fracture or significant listhesis. CORD/CAUDA EQUINA: Normal caliber, contour, and signal intensity. DISC LEVELS: 12-L1: No significant disc/facet abnormality, spinal stenosis, or foraminal stenosis. L1-L2: Mild central canal and moderate right foramen narrowing. No significant left foramen narrowing. Broad-based disc protrusion into the right paracentral region and right foramen which displaces the central canal nerve roots, and likely compresses the descending right L2 nerve root. No significant facet arthropathy.. L2-L3: Early degenerative disc disease is present without focal protrusion or neural impingement. L3-L4: Early degenerative disc disease is present without focal protrusion or neural impingement. L4-L5: Mild foramen narrowing bilaterally without significant central canal narrowing. Mild diffuse disc bulging without disc at reduction. Mild degenerative facet arthropathy, left greater than right. L5-S1: No significant central canal or foraminal stenosis. Minimal degenerative disc disease. Moderate left facet degenerative arthropathy. MR/MR lumbar spine wo con IMPRESSION: 1. L1-L2 degenerative disc disease causing mild central canal and moderate right foramen narrowing, and likely compressing the descending L2 nerve root. Electronically authenticated by: EBEN CROWLEY Date: 07/25/2024 06:31 Dictated By: Eben Crowley M.D. Signed By: 07/25/2434 DD/ 0 TD/TT: Gift Officer: DURAN HealthcareRadiology Study observation (narrative)[facility] LUMBAR SPINE WO CONOrdered By: Radiologist Radiology on [id number] Work Phone: XR LUMBAR SPINE MIN 4Von [id number] [address] XRay Report Signed Patient: LINDA ALVARADO MR#: [id number] : 1975 Acct:[id number] Age/Sex: 49 / F ADM Date: 07/03/24 Loc: EC Attending Dr: Gonsalo Garces M.D. Ordering Physician: Gonsalo Garces M.D. Date of Service: 07/03/24 Procedure(s): XR lumbar spine min 4V Accession Number(s): [id number] cc: ELVER MENDENHALL ; Gonsalo Garces M.D. The [place] [id number] Patient Name: LINDA ALVARADO MRN: [facility]:[id number] date: 1975 Sex: F Assigned Patient Location: Current Patient Location: Accession/Order Number: [id number] Exam Date: 07/03/2024 10:55 Report Date: 07/05/2024 07:03 At the request of: GONSALO GARCES Procedure: XR lumbar spine min 4V EXAMINATION: XR lumbar spine min 4V HISTORY: LUMBAR SPINE PAIN COMPARISON: CT lumbar spine 06/22/2024 FINDINGS: BONES: Prominent left convex curvature of thoracolumbar spine. No fracture or bone lesion. Mild grade 1 retrolisthesis of L1 on 2; grossly stable between flexion, neutral, and extension. Marked degenerative facet arthropathy L4-L5, L5-S1; moderate at remaining levels. DISC SPACES: Moderate narrowing L1-L2. Mild narrowing at remaining levels. PARASPINOUS: Negative. No paraspinous abnormality is seen. OTHER: Negative. XR/XR lumbar spine min 4V IMPRESSION: 1. Levoscoliosis and multilevel mild to moderate degenerative disc disease and degenerative facet arthropathy. Electronically authenticated by: EBEN CROWLEY Date: 07/05/2024 07:03 Dictated By: Eben Crowley M.D. Signed By: 07/05/24705 DD/ 2 TD/TT: Gift Officer:KARELYHRadiology, Radiologist, - 07/05/2024 [place] [address] XRay Report Signed Patient: LINDA ALVARADO MR#: [id number] : 1975 Acct:[id number] Age/Sex: 49 / F ADM Date: 07/03/24 Loc: EC Attending Dr: Gonsalo Garces M.D. Ordering Physician: Gonsalo Garces M.D. Date of Service: 07/03/24 Procedure(s): XR lumbar spine min 4V Accession Number(s): [id number] cc: ELVER MENDENHALL ; Gonsalo Garces M.D. [place] [address] Patient Name: LINDA ALVARADO MRN: [facility]:[id number] date: 1975 Sex: F Assigned Patient Location: Current Patient Location: Accession/Order Number: [id number] Exam Date: 07/03/2024 10:55 Report Date: 07/05/2024 07:03 At the request of: GONSALO GARCES Procedure: XR lumbar spine min 4V EXAMINATION: XR lumbar spine min 4V HISTORY: LUMBAR SPINE PAIN COMPARISON: CT lumbar spine 06/22/2024 FINDINGS: BONES: Prominent left convex curvature of thoracolumbar spine. No fracture or bone lesion. Mild grade 1 retrolisthesis of L1 on 2; grossly stable between flexion, neutral, and extension. Marked degenerative facet arthropathy L4-L5, L5-S1; moderate at remaining levels. DISC SPACES: Moderate narrowing L1-L2. Mild narrowing at remaining levels. PARASPINOUS: Negative. No paraspinous abnormality is seen. OTHER: Negative. XR/XR lumbar spine min 4V IMPRESSION: 1. Levoscoliosis and multilevel mild to moderate degenerative disc disease and degenerative facet arthropathy. Electronically authenticated by: EBEN CROWLEY Date: 07/05/2024 07:03 Dictated By: Eben Crowley M.D. Signed By: 07/05/24705 DD/ 2 TD/TT: Gift Officer: DURAN HealthcareRadiology Study observation (narrative)NOMJorge Luis HealthcareXR LUMBAR SPINE MIN 4VOrdered By: Radiologist Radiology on [id number] Work Phone: ca ECHO DOPPLER COMPLETEon [phone] [place] [id number] Cardiology Report Signed Patient: LINDA ALVARADO MR#: [id number] : 1975 Acct:[id number] Age/Sex: 49 / F ADM Date: 07/02/24 Loc: CARD Attending Dr: GITA GARCIA Ordering Physician: GITA GARCIA Date of Service: 07/02/24 Procedure(s): CA echo doppler complete Accession Number(s): [id number] cc: ELVER MENDENHALL ; GITA GARCIA Patient Name: LINDA ALVARADO MR#: [id number] : 1975 Exam Date: 07/02/2024 Ordering Doctor: DR GITA HUSAIN ECHOCARDIOGRAM REPORT PROCEDURE: CA ECHO DOPPLER COMPLETE INDICATIONS: Bilateral lower extremity edema COMPARISON: None. DESCRIPTION: COMPLETE ECHOCARDIOGRAM Real-time transthoracic echocardiography with 2D, M-mode, spectral and color flow Doppler performed. QUALITY: Technical quality was good. LEFT VENTRICLE: Normal chamber size. Thickened septal wall. Normal systolic function. LV EF: Normal left ventricular ejection fraction, (>55%). DIASTOLIC: ATRIAL SEPTUM: LEFT ATRIUM: Normal chamber size. RIGHT ATRIUM: Normal chamber size. RIGHT VENTRICLE: Normal chamber size. TRICUSPID VALVE: Normal mobility and thickness. No stenosis with trivial regurgitation. Unable to assess right-sided pressures due to lack of measurable tricuspid regurgitation. MITRAL VALVE: Normal mobility and thickness. No evidence of mitral valve stenosis. There is no mitral annular calcification. No mitral regurgitation. AORTIC VALVE: Normal trileaflet appearance. No visible sclerosis. Normal leaflet mobility. No evidence of aortic valve stenosis. No aortic regurgitation. AORTIC ROOT: Normal diameter and appearance. Ascending aorta is normal in size. PULMONIC VALVE: Normal thickness and mobility. No stenosis. Trivial regurgitation. PERICARDIUM: No evidence of pericardial effusion. IVC: Collapses with inspirations. IVC is normal in size. PLEURA: CONCLUSION: 1. Normal ventricular systolic function. LVEF is estimated at 65%. 2. No significant valvular dysfunction. 3. No pericardial effusion. 4. Unable to assess right-sided pressures due to lack of measurable tricuspid regurgitation. Adult Echocardiography Procedure Report Left Ventricle LVEDD (3.7 - 5.6 cm): 4.39 cm LVESD (2.2 - 4.0 cm): 2.07 cm LVIVS thickness (0.6 - 1.2 cm): 1.09 cm LVPW thickness (0.5 - 1.0 cm): 0.90 cm E - e': 10.50 LVOT Max Gradient: 5.00 mm[Hg] LVOT Area (cm2): 1.12 m/s Peak Velocity (LVOT): 1.12 m/s Mean Velocity (LVOT): 0.70 m/s LVOT Diameter 2.07 cm Left Atrium LA Volume Index (2D A2C): 23.96 ml/m2 Left Atrium Systolic Dimension: 3.59 cm Mitral Valve MV E to A Ratio: 0.92, 0.84 Right Ventricle Aorta AO Root Diam: 3.43 cm Ascending Ao Diam: 2.76 cm Aortic Valve AoV Area (Peak Sharan): 2.73 cm2, 2.73 cm2 AoV Area (VTI): 3.21 cm2, 3.21 cm2 Peak Velocity(Antegrade Flow): 1.38 m/s Peak Gradient(Antegrade Flow): 7.61 mm[Hg] Mean Velocity(Antegrade Flow): 0.86 m/s Mean Gradient(Antegrade Flow): 3.52 mm[Hg] Velocity Time Integral: 27.62 cm Tricuspid Valve Pulmonic Valve Mean Gradient: 2.51 mm[Hg] Mean Velocity: 0.75 m/s Peak Velocity: 1.07 m/s, 1.12 m/s Peak Gradient: 5.00 mm[Hg], 4.54 mm[Hg] Right Atrium Dictated by: Angel Davila M.D. on 07/02/2024 at 19:07 Approved by: Angel Davila M.D. on 07/02/2024 at 19:09 Dictated By: ANGEL DAVILA Signed By: 07/02/241909 DD/ 08 TD/TT: [place] Worker (more content not included)...TBHRadiology, Radiologist, - 07/02/[address] [address] Cardiology Report Signed Patient: LINDA ALVARADO MR#: [id number] : 1975 Acct:[id number] Age/Sex: 49 / F ADM Date: 07/02/24 Loc: CARD Attending Dr: GITA GARCIA Ordering Physician: GITA GARCIA Date of Service: 07/02/24 Procedure(s): CA echo doppler complete Accession Number(s): [id number] cc: ELVER MENDENHALL ; GTIA GARCIA Patient Name: LINDA ALVARADO MR#: [id number] : 1975 Exam Date: 07/02/2024 Ordering Doctor: DR GITA GARCIA PA ECHOCARDIOGRAM REPORT PROCEDURE: CA ECHO DOPPLER COMPLETE INDICATIONS: Bilateral lower extremity edema COMPARISON: None. DESCRIPTION: COMPLETE ECHOCARDIOGRAM Real-time transthoracic echocardiography with 2D, M-mode, spectral and color flow Doppler performed. QUALITY: Technical quality was good. LEFT VENTRICLE: Normal chamber size. Thickened septal wall. Normal systolic function. LV EF: Normal left ventricular ejection fraction, (>55%). DIASTOLIC: ATRIAL SEPTUM: LEFT ATRIUM: Normal chamber size. RIGHT ATRIUM: Normal chamber size. RIGHT VENTRICLE: Normal chamber size. TRICUSPID VALVE: Normal mobility and thickness. No stenosis with trivial regurgitation. Unable to assess right-sided pressures due to lack of measurable tricuspid regurgitation. MITRAL VALVE: Normal mobility and thickness. No evidence of mitral valve stenosis. There is no mitral annular calcification. No mitral regurgitation. AORTIC VALVE: Normal trileaflet appearance. No visible sclerosis. Normal leaflet mobility. No evidence of aortic valve stenosis. No aortic regurgitation. AORTIC ROOT: Normal diameter and appearance. Ascending aorta is normal in size. PULMONIC VALVE: Normal thickness and mobility. No stenosis. Trivial regurgitation. PERICARDIUM: No evidence of pericardial effusion. IVC: Collapses with inspirations. IVC is normal in size. PLEURA: CONCLUSION: 1. Normal ventricular systolic function. LVEF is estimated at 65%. 2. No significant valvular dysfunction. 3. No pericardial effusion. 4. Unable to assess right-sided pressures due to lack of measurable tricuspid regurgitation. Adult Echocardiography Procedure Report Left Ventricle LVEDD (3.7 - 5.6 cm): 4.39 cm LVESD (2.2 - 4.0 cm): 2.07 cm LVIVS thickness (0.6 - 1.2 cm): 1.09 cm LVPW thickness (0.5 - 1.0 cm): 0.90 cm E - e': 10.50 LVOT Max Gradient: 5.00 mm[Hg] LVOT Area (cm2): 1.12 m/s Peak Velocity (LVOT): 1.12 m/s Mean Velocity (LVOT): 0.70 m/s LVOT Diameter 2.07 cm Left Atrium LA Volume Index (2D A2C): 23.96 ml/m2 Left Atrium Systolic Dimension: 3.59 cm Mitral Valve MV E to A Ratio: 0.92, 0.84 Right Ventricle Aorta AO Root Diam: 3.43 cm Ascending Ao Diam: 2.76 cm Aortic Valve AoV Area (Peak Sharan): 2.73 cm2, 2.73 cm2 AoV Area (VTI): 3.21 cm2, 3.21 cm2 Peak Velocity(Antegrade Flow): 1.38 m/s Peak Gradient(Antegrade Flow): 7.61 mm[Hg] Mean Velocity(Antegrade Flow): 0.86 m/s Mean Gradient(Antegrade Flow): 3.52 mm[Hg] Velocity Time Integral: 27.62 cm Tricuspid Valve Pulmonic Valve Mean Gradient: 2.51 mm[Hg] Mean Velocity: 0.75 m/s Peak Velocity: 1.07 m/s, 1.12 m/s Peak Gradient: 5.00 mm[Hg], 4.54 mm[Hg] Right Atrium Dictated by: Anegl Davila M.D. on 07/02/2024 at 19:07 Approved by: Angel Davila M.D. on 07/02/2024 at 19:09 Dictated By: ANGEL DAVILA Signed By: 07/02/241909 DD/ 08 TD/TT: Gift Officer: [place] [employer] HealthcareRadiology Study observation (narrative)[facility] ECHO DOPPLER COMPLETEOrdered By: Radiologist Radiology on [id number] Work Phone: amphetamine Screen Ql (U)Ordered By: Jane Waller on 80-98-3660Vmdhlomvvrnc Ql (U)Amphetamines screenNegativeParma Community General HospitalAmphetamines Ql (U)NegativeNegCleveland Clinic Hillcrest HospitalBarbiturates [Presence] in Urine by Screen methodOrdered By: Jane Waller on 16-26-8121Xwiznbnpxjlz Screen Ql (U)NegativeNegativeFirbon secours st[facility] Medical CenterBarbiturates Screen Ql (U)Barbiturates [Presence] in Urine by Screen methodNegCleveland Clinic Hillcrest HospitalBenzodiazepines Screen Ql (U)Ordered By: Jane Waller on 57-70-7180Hzuxwmvlteagxyl Ql (U)NegativeNegative [facility] HospitalBenzodiazepines Ql (U)Benzodiazepines [Presence] in Urine by Screen methodNegCleveland Clinic Hillcrest Hospital Benzoylecgonine [Presence] in Urine by Screen methodOrdered By: Jane Waller on 98-64-3909Dbbmqmkqdegeaqh Screen Ql (U)NegativeNegativeParma Community General HospitalBenzoylecgonine Screen Ql (U)Benzoylecgonine [Presence] in Urine by Screen methodNegCleveland Clinic Hillcrest HospitalCannabinoids [Presence] in Urine by Screen methodOrdered By: Jane Waller on 65-19-4148Pdrtovflwbif Screen Ql (U)NegativeNegCleveland Clinic Hillcrest HospitalComment on above: These are unconfirmed results and should not be used for legal purposes. Drug Cut-Off Concentration: AMPH 1000 ng/mL KEITH 200 ng/mL LARS 200 ng/mL COCM 300 ng/mL OP 300 ng/mL PCP 25 ng/mL THC 20 ng/mLCannabinoids Screen Ql (U) Cannabinoids [Presence] in Urine by Screen methodNegCleveland Clinic Hillcrest HospitalComment on above:These are unconfirmed results and should not be used for legal purposes. Drug Cut-Off Concentration: AMPH 1000 ng/mL KEITH 200 ng/mL LARS 200 ng/mL COCM 300 ng/mL OP 300 ng/mL PCP 25 ng/mL THC 20 ng/mLDrug Screen,Urineon 30-62-6567Aftdsazamik Screen,UrineNegativeNormalNegativeCape Canaveral Hospital Physician GroupComment on above:Performed By: #### URDS #### [facility] [address] [place] [address] USABarbiturate Screen,UrineNegativeNormalNegativeCape Canaveral Hospital Physician GroupComment on above:Performed By: #### URDS #### [facility] [address] [place] [id number] USABenzodiazepines Screen,UrineNegativeNormalNegativeCape Canaveral Hospital Physician GroupComment on above:Performed By: #### URDS #### [facility] [address] [place] [address] USACannabinoid Screen,UrineNegativeNormalNegativeCape Canaveral Hospital Physician GroupComment on above:Result Comment: These are unconfirmed results and should not be used for legal purposes. Drug Cut-Off Concentration: AMPH 1000 ng/mL KEITH 200 ng/mL LARS 200 ng/mL COCM 300 ng/mL OP 300 ng/mL PCP 25 ng/mL THC 20 ng/mL PERFORMED BY: [facility] [address] [place] [address] PATHOLOGIST [employer] CLERK YENNIFER BROWN M.D.Performed By: #### URDS #### [place] [address] USACocaine Screen,UrineNegativeNormalNegativeCape Canaveral Hospital Physician GroupComment on above:Performed By: #### URDS #### [facility] [address] [place] [address] USAOpiate Screen,UrineNegativeNormalNegativeCape Canaveral Hospital Physician GroupComment on above:Performed By: #### URDS #### [facility] [address] [place] [address] USAPhencyclidine Screen,UrineNegativeNormalNegativeCape Canaveral Hospital Physician GroupComment on above:Performed By: #### URDS #### [place] [address] USAOpiates [Presence] in Urine by Screen methodOrdered By: Jane Wallre on 85-68-4660Ffpwbtk Screen Ql (U)NegativeNegativeParma Community General HospitalOpiates Screen Ql (U)Opiates [Presence] in Urine by Screen methodNegativeParma Community General HospitalPhencyclidine Screen Ql (U)Ordered By: Jane Waller on 71-77-4273Oqgvkhqyimqfe Ql (U)NegativeNegative [facility] HospitalPhencyclidine Ql (U)Phencyclidine [Presence] in Urine by Screen methodNegCleveland Clinic Hillcrest HospitalLaboratory - Chemistry and Chemistry - challengeon 86-34-5456Jhcndztiz Ql (U)Negative [facility] HospitalGlucose (U) [Mass/Vol]NegativeParma Community General HospitalKetones Ql (U)NegativeParma Community General HospitalpH (U)6.0 [pH]UK Healthcarepecific gravity (U) [Rel density] 1.020Par[facility] General HospitalUrobilinogen (U) [Mass/Vol]0.2 mg/dL [facility] HospitalLaboratory - Specimen informationon 01-09-2024 Appearance (U)clearParma Community General HospitalColor (U)yellowParma Community General HospitalLaboratory - Urinalysison 91-03-0774Bmcwwpxbj esterase Test strip Ql (U)NegativeParma Community General HospitalNitrite Ql (U)Negative [facility] HospitalProtein Ql (U)NegativeParma Community General HospitalNo Panel Informationon 00-50-3319Hyciv Occult BloodNegative [facility] HospitalComplete Blood Count with Auto Diffon 21-71-9046Rntddrgvo (Bld) [#/Vol]0.09 10*3/uLNormal0.00-0.20NortVan Wert County Hospital SpecialistComment on above:Performed By: #### CBCAD, CMP, LIPD, FE Prof #### [facility] [address] [place], [place] [id number]/100 WBC (Bld)1.2 %NormalNoMartins Ferry Hospital SpecialistComment on above:Performed By: #### CBCAD, CMP, LIPD, FE Prof #### [facility] [address] [place], [place] [id number] (Bld) [#/Vol]0.18 10*3/uLNormal0.02-0.50NortVan Wert County Hospital SpecialistComment on above:Performed By: #### CBCAD, CMP, LIPD, FE Prof #### [facility] [address] [place], [place] [id number]/100 WBC (Bld)2.5 %NormalNortVan Wert County Hospital SpecialistComment on above:Performed By: #### CBCAD, CMP, LIPD, FE Prof #### [facility] [address] [place], [place] [id number] distribution width (RBC) [Ratio]12.4 %Normal 11.0-15.0[facility] SpecialistComment on above:Performed By: #### CBCAD, CMP, LIPD, FE Prof #### [facility] [address] [place], [place] [id number] (Bld) [Volume fraction]41.2 %Khvkrh65.0-47.0 [facility] SpecialistComment on above:Performed By: #### CBCAD, CMP, LIPD, FE Prof #### [facility] [address] [place], [place] [id number] (Bld) [Mass/Vol]14.2 g/hIJynbpf97.6-15.5[facility] SpecialistComment on above:Performed By: #### CBCAD, CMP, LIPD, FE Prof #### [facility] [address] [place], [place] [id number] (Bld) [#/Vol]2.3 10*3/uLNormal0.9-3.9[facility] SpecialistComment on above:Performed By: #### CBCAD, CMP, LIPD, FE Prof #### [facility] [address] [place], [place] [id number]/100 WBC (Bld)31.5 %NormalRegional Medical Center SpecialistComment on above:Performed By: #### CBCAD, CMP, LIPD, FE Prof #### [facility] [address] [place], [place] [id number] (RBC) [Entitic mass]33.4 vgJljh31.0-33.0[facility] SpecialistComment on above:Performed By: #### CBCAD, CMP, LIPD, FE Prof #### [facility] [address] [place], [place] [id number] (RBC) [Mass/Vol]34.5 g/uZHwbvmj44.0-36.0[facility] SpecialistComment on above:Performed By: #### CBCAD, CMP, LIPD, FE Prof #### [facility] [address] [place], [place] [id number] (RBC) [Entitic vol]97 jTHztuqv36-295Jcwfwiwo [facility] SpecialistComment on above:Performed By: #### CBCAD, CMP, LIPD, FE Prof #### [facility] [address] [place], [place] [id number] (Bld) [#/Vol]0.5 10*3/uLNormal0.2-0.9NoMartins Ferry Hospital SpecialistComment on above:Performed By: #### CBCAD, CMP, LIPD, FE Prof #### [facility] [address] [place], [place] [id number]/100 WBC (Bld)6.2 %NormalRegional Medical Center SpecialistComment on above:Performed By: #### CBCAD, CMP, LIPD, FE Prof #### [facility] [address] [place], [place] [id number] (Bld) [#/Vol]4.2 10*3/uLNormal1.5-7.8NoMartins Ferry Hospital SpecialistComment on above:Performed By: #### CBCAD, CMP, LIPD, FE Prof #### [facility] [address] [place], [place] [id number]/100 WBC (Bld)58.5 %[facility] SpecialistComment on above:Performed By: #### CBCAD, CMP, LIPD, FE Prof #### [facility] [address] [place], [place] [id number] mean volume (Bld) [Entitic vol]8.10 fLNormal 7.50-12.50NoMartins Ferry Hospital SpecialistComment on above:Performed By: #### CBCAD, CMP, LIPD, FE Prof #### [facility] [address] [place], [place] [id number] (Bld) [#/Vol]389 10*3/hEVezhsl831-456Acyxzstm [facility] SpecialistComment on above:Performed By: #### CBCAD, CMP, LIPD, FE Prof #### [facility] [address] [place], [place] [id number] (Bld) [#/Vol]4.25 10*6/uLNormal3.90-5.20NoMartins Ferry Hospital SpecialistComment on above:Performed By: #### CBCAD, CMP, LIPD, FE Prof #### [facility] [address] [place], [place] [id number]-BL27.2 mXEarflk03.0-50.0NoMartins Ferry Hospital Specialist Comment on above:Performed By: #### CBCAD, CMP, LIPD, FE Prof #### [facility] [address] [place], [place] [id number] (Bld) [#/Vol]7.2 10*3/uLNormal3.8-11.0NoMartins Ferry Hospital SpecialistComment on above:Performed By: #### CBCAD, CMP, LIPD, FE Prof #### [facility] [address] [place], [place] [id number] Metabolic Panelon 16-19-4841Lmzldxs [Mass/Vol] 4.5 g/dLNormal3.6-5.1[facility] SpecialistComment on above:Performed By: #### CBCAD, CMP, LIPD, FE Prof #### [facility] [address] [place], [place] [id number]/Globulin [Mass ratio]2.1 {ratio}Normal1.0-2.5NoMartins Ferry Hospital SpecialistComment on above:Performed By: #### CBCAD, CMP, LIPD, FE Prof #### [facility] [address] [place], [place] [id number] [Catalytic activity/Vol]64 U/OEkljqi61-833Mbtlghbg [facility] SpecialistComment on above:Performed By: #### CBCAD, CMP, LIPD, FE Prof #### [facility] [address] [place], [place] [id number] [Catalytic activity/Vol]52 U/LHigh6-33NoMartins Ferry Hospital SpecialistComment on above:Result Comment: 08/02/2021 Female reference range changed.Performed By: #### CBCAD, CMP, LIPD, FE Prof #### [facility] [address] [place], [place] [id number] gap [Moles/Vol]15 mmol/FPxfkxa04-49Xvjldkop [facility] SpecialistComment on above:Result Comment: Effective 09/07/2019 reference range changed.Performed By: #### CBCAD, CMP, LIPD, FE Prof #### [facility] [address] [place], [place] [id number] [Catalytic activity/Vol]29 U/LNormal9-34NoMartins Ferry Hospital SpecialistComment on above:Performed By: #### CBCAD, CMP, LIPD, FE Prof #### [facility] [address], [place] [id number] [Mass/Vol]0.57 mg/dLNormal0.30-1.20NortVan Wert County Hospital SpecialistComment on above:Performed By: #### CBCAD, CMP, LIPD, FE Prof #### [facility] [address] [place], [place] [id number]/CREA18 RatioNormal6-22NoMartins Ferry Hospital Specialist Comment on above:Performed By: #### CBCAD, CMP, LIPD, FE Prof #### [facility] [address], [place] [id number] [Mass/Vol]9.5 mg/dLNormal8.6-10.2[facility] SpecialistComment on above:Performed By: #### CBCAD, CMP, LIPD, FE Prof #### [facility] [address] [place], [place] [id number] [Moles/Vol]103 mmol/GTbncub71-287Xvzmmblp [facility] SpecialistComment on above:Performed By: #### CBCAD, CMP, LIPD, FE Prof #### [facility] [address] [place], [place] [id number] [Moles/Vol]27 mmol/AJpqrpr40-66Zglxyuux [facility] SpecialistComment on above:Performed By: #### CAROLYN, WM, LIPD, FE Prof #### [facility] [address] [place], [place] [id number] [Mass/Vol]0.7 mg/dLNormal0.6-1.4[facility] SpecialistComment on above:Performed By: #### WM LEON, LIPD, FE Prof #### [facility] [address] [place], [place] [id number] mL/min/1.38o4Npwvyb>60[facility] SpecialistComment on above:Performed By: #### CAROLYN, WM, LIPD, FE Prof #### [facility] [address] [place], [place] [id number] mL/min/1.45a6Dqjmjj>60Nortnorthwest medical centern [facility] SpecialistComment on above:Performed By: #### WM LEON, LIPD, FE Prof #### [facility] [address] [place], [place] [id number] (S) [Mass/Vol]2.1 g/dLNormal1.9-3.7Nortnorthwest medical centern [facility] SpecialistComment on above:Performed By: #### WM LEON, LIPD, FE Prof #### [facility] [address] [place], [place] [id number] [Mass/Vol]123 mg/sUFktr06-10Fswofdcy [facility] SpecialistComment on above:Result Comment: For FASTING Glucose --- ADA reference ranges: Normal 65-99 mg/dl Prediabetes 100-125 Diabetes >/= 126Performed By: #### CAROLYN, WM, LIPD, FE Prof #### [facility] [address] [place], [place] [id number] [Moles/Vol]3.7 mmol/LNormal3.5-5.5Nortnorthwest medical centern [facility] SpecialistComment on above:Performed By: #### CAROLYN, WM, LIPD, FE Prof #### [facility] [address] [place], [place] [id number] [Mass/Vol]6.6 g/dLNormal6.1-8.1[facility] SpecialistComment on above:Performed By: #### CBCKELLEY, CMP, LIPD, FE Prof #### [facility] [address] [place], [place] [id number] [Moles/Vol]141 mmol/ZGjochu235-836Oyzytogj [facility] SpecialistComment on above:Performed By: #### CBCAD, CMP, LIPD, FE Prof #### [facility] [address] [place], [place] [id number] nitrogen [Mass/Vol]12 mg/dLNormal7-25NortVan Wert County Hospital SpecialistComment on above:Performed By: #### CBCKELLEY, CMP, LIPD, FE Prof #### [facility] [address] [place], [place] [id number] Profileon 09-18-2021%FESAT38 %Qvwmdp58-92Epgnuczw [facility] SpecialistComment on above:Performed By: #### CBCKELLEY, CMP, LIPD, FE Prof #### [facility] [address] [place], [place] [id number] ug/kVVrbhvv76-335Gfcwlrph [place] [employer] Consultant Comment on above:Result Comment: Reference range change 07/19/2017. Prior reference range F 37-145 ug/dL, M 59-158 ug/dL.Performed By: #### CBCAD, CMP, LIPD, FE Prof #### [facility] [address] [place], [place] [id number] ug/dLAuqnev658-394Ghqmutpt [employer] Consultant Comment on above:Performed By: #### CBCAD, CMP, LIPD, FE Prof #### [facility] [address] [place], [place] [id number] ug/bCBxscsk944-016Dnnreamu [employer] Consultant Comment on above:Performed By: #### CBCAD, CMP, LIPD, FE Prof #### [facility] [address] [place], [place] [id number] Panelon 42-52-0532Ccxbepztszk [Mass/Vol]238 mg/dLHigh 125-200NoMartins Ferry Hospital SpecialistComment on above:Result Comment: Low risk < 200mg/dL Borderline risk 201-239 mg/dl High risk > or equal to 240Performed By: #### CBCAD, CMP, LIPD, FE Prof #### [facility] [address] [place], [place] [id number] in HDL [Mass/Vol]42 mg/dLNormal>40NoMartins Ferry Hospital SpecialistComment on above:Result Comment: High Cardiovascular Risk HDL <40 mg/dL Low Cardiovascular Risk HDL > or equal to 60 mg/dlPerformed By: #### CBCAD, CMP, LIPD, FE Prof #### [facility] [address] [place], [place] [id number] in LDL [Mass/Vol]131 mg/dLNormalNoMartins Ferry [facility] SpecialistComment on above:Result Comment: LDL ATP III CLASSIFICATION LDL less than 100 mg/dl Optimal LDL 100-129 mg/dl Near or above optimal LDL 130-159 Borderline high LDL 160-189 High LDL greater than 189 mg/dl Very HighPerformed By: #### CBCAD, CMP, LIPD, FE Prof #### [facility] [address] [place], [place] [id number] in VLDL [Mass/Vol]65 mg/dLNormalNoMartins Ferry [facility] SpecialistComment on above:Performed By: #### CBCAD, CMP, LIPD, FE Prof #### [facility] [address] [place], [place] [id number].total/Cholesterol in HDL [Mass ratio]6 {ratio} NormalNoMartins Ferry Hospital SpecialistComment on above:Performed By: #### CBCAD, CMP, LIPD, FE Prof #### [facility] [address] [place], [place] [id number] [Mass/Vol]326 mg/tBKgbz03-810Vyhadvfi [facility] SpecialistComment on above:Result Comment: TRIG ATPIII CLASSIFICATIONS TRIG less than 150 mg/dl Normal TRIG 150-199 mg/dl Borderline High TRIG 200-500 mg/dl High TRIG greather than 500 mg/dl Very HighPerformed By: #### CBCAD, CMP, LIPD, FE Prof #### [facility] [address] [place] [id number] RIGHT 3 Son 31-50-4265QNJD RIGHT 3 [facility]ITALni[facility] Department of Radiology [address] [place] [phone] Patient Name: LINDA ALVARADO : 1975 [...] Weight Bearing?: Y Exam: KNEE RIGHT 3 S KNEE RIGHT 3 [facility] 03/31/2020 1:59 PM CLINICAL INDICATIONS: S82.101D Unsp [...] fracture Electronically signed: Jonas Robbins. Transcribed by: [email or web address], User Resident: Electronically Signed by: JONAS ROBBINS @ 03/31/2020 02:03 [facility] HospitalComment on above:Order Comment: Weight Bearing?: YKNEE RIGHT 3 VWSon 41-52-0486CRNK RIGHT 3 [facility]ITALniSelect [facility] Department of Radiology [address] [place] [phone] Patient Name: LINDA ALVARADO : 1975 [...] KNEE RIGHT 3 S KNEE RIGHT 3 VWS 10/12/2019 11:29 AM [...] alignment Electronically signed: Ying Enriquez. Transcribed by: [email or web address], User Resident: Electronically Signed by: YING ENRIQUEZ @ 10/12/2019 12:10 [facility] HospitalComment on above:Order Comment: , , , Ordering Provider - JONAS BISHOP PA-C , KNEE RIGHT 1 OR 2 Son 18-48-3481QJCR RIGHT 1 OR 2 SUniSelect [facility] Department of Radiology [address] [place] [phone] Patient Name: LINDA ALVARADO : 1975 [...] r tibia, subs for clos fx w josiane cee I10 TECHNOLOGIST COMMENTS: Patient states post fall [...] healing Electronically signed: Stephanie Miller. Transcribed by: [email or web address], User Resident: Electronically Signed by: STEPHANIE MILLER @ 09/14/2019 05:22 [facility] HospitalComment on above:Order Comment: , , , Ordering Provider - JONAS BISHOP PA-C , KNEE RIGHT 1 OR 2 Son 96-92-5081VVJI RIGHT 1 OR 2 SUniSelect [facility] Department of Radiology [address] [place] [phone] Patient Name: LINDA ALVARADO : 1975 [...] effusion Electronically signed by:Stephanie Miller. Transcribed by: [email or web address], User Resident: Electronically Signed by: STEPHANIE MLILER @ 08/17/2019 03:52 PMNormalThe Harrison Community HospitalComment on above:Order Comment: , Views (X- RAY, KNEE): AP, Lateral , Views (X-RAY, KNEE): AP, Lateral , , , Ordering Provider - JONAS BISHOP PA-C , VITAMIN D 25-HYDROXYon 63-76-7685XPTGTHH D 25-OH35.4 ng/jJOycwij90.0-80.0[facility] HospitalComment on above:Result Comment: >80.0 Toxicity possiblePerformed By: #### [address], [address] #### [address] 1 OR 2 [facility] 55-75-4132NGEC RIGHT 1 OR 2 [facility] Department of Radiology [address] [place] [address] Patient Name: LINDA ALVARADO : 1975 Sex: F Age: Race: White Pt. Location: Patient Status: Ordered Date: 07/20/2019 10:30:00 AM Completed Date: 07/20/2019 10:42 AM Requesting Provider: SHWETA MICHAEL Attending Provider: Report Copy To: Signs & Symptoms: S82.101A Unsp fracture of upper end of right tibia, init for clos fx I10 History: [place] Comments: , , , Ordering Provider - SHWETA MICHAEL PA-C , Exam: KNEE RIGHT 1 OR 2 VWS KNEE RIGHT 1 OR 2 VWS 07/20/2019 10:42 AM EST SIGNS AND SYMPTOMS: S82.101A Unsp fracture of upper end of right tibia, init for clos fx I10 TECHNOLOGIST COMMENTS: right knee pain surgery - 2 weeks ago f/u QUESTION FOR THE RADIOLOGIST: , , , Ordering Provider - SHWETA MICHAEL PA-C , PROTOCOL: AP and Lateral views [...] healing Electronically signed by:Stephanie Miller. Transcribed by: [email or web address], User Resident: Electronically Signed by: STEPHANIE MILLER @ 07/20/2019 05:04 PMNormalPremier Health Miami Valley HospitalComment on above:Order Comment: , , , Ordering Provider - SHWETA MICHAEL PA-C , BASIC METABOLIC PANELon 38-56-6267Dkaetgi [Mass/Vol]8.8 mg/dLNormal8.6-10.3The [facility] Community HospitalComment on above:Order Comment: No: Do not add to previous drawPerformed By: #### 00959, 55582 #### [facility] [address] [place] [address], USAChloride [Moles/Vol]99 mmol/RAwfgdz52-523Ovl [facility] HospitalComment on above:Order Comment: No: Do not add to previous drawPerformed By: #### 19622, 49498 #### [facility] [address] [place] [address], USACO2 [Moles/Vol]27 mmol/ECnmwwa27-47Nyw [facility] HospitalComment on above:Order Comment: No: Do not add to previous draw Performed By: #### 81844, 85778 #### [facility] [address] [place] [address], USACreatinine [Mass/Vol]0.81 mg/dLNormal0.60-1.20The [facility] HospitalComment on above:Order Comment: No: Do not add to previous drawPerformed By: #### 47019, 10392 #### [facility] [address] [place] [address], USAGFR/1.73 sq M predicted among blacks MDRD (S/P/Bld) [Vol rate/Area]mL/min/{1.73_m2}Normal>60[facility] Comment on above:Order Comment: No: Do not add to previous drawPerformed By: #### 73268, 46494 #### [facility] [address] [place] [address], USAGFR/1.73 sq M predicted among non-blacks MDRD (S/P/Bld) [Vol rate/Area]mL/min/{1.73_m2}Normal>60[facility] Comment on above:Order Comment: No: Do not add to previous drawPerformed By: #### 51926, 89717 #### [facility] [address] [place] [address], USAGlucose [Mass/Vol]105 mg/tBSllm98-546Xij [facility] HospitalComment on above:Order Comment: No: Do not add to previous drawPerformed By: #### 28561, 99051 #### [facility] [address] [place] [address], USAPotassium [Moles/Vol]3.8 mmol/LNormal3.5-5.1The [facility] HospitalComment on above:Order Comment: No: Do not add to previous drawPerformed By: #### 66902, 44645 #### [facility] [address] [place] [address], USASodium [Moles/Vol]133 mmol/DTzf455-095Iaq [facility] HospitalComment on above:Order Comment: No: Do not add to previous drawPerformed By: #### 31833, 34483 #### [facility] [address] [place] [address], USAUrea nitrogen [Mass/Vol]10 mg/dLNormal7-25The [facility] HospitalComment on above:Order Comment: No: Do not add to previous drawPerformed By: #### 05718, 61204 #### [facility] [address] [place] [address], USACBC COMPLETE BLOOD COUNTon 24-76-6730Rwqktavyxvi distribution width (RBC) [Ratio]13.3 %Wpmfqc76.5-15.0The [facility] HospitalComment on above:Order Comment: No: Do not add to previous draw Performed By: #### 10348, 48420 #### [facility] [address] [place] [address], USAHematocrit (Bld) [Volume fraction]36.1 %Omescc64.0-45.0The [facility] HospitalComment on above:Order Comment: No: Do not add to previous drawPerformed By: #### 58167, 02998 #### [facility] [address] [place] [address], USAHemoglobin (Bld) [Mass/Vol]11.6 g/dLLow12.0-15.0The [facility] HospitalComment on above:Order Comment: No: Do not add to previous drawPerformed By: #### 89147, 46120 #### [facility] [address] [place] [address], USAMCH (RBC) [Entitic mass]31.2 khYgzznr49.0-33.0The [facility] HospitalComment on above:Order Comment: No: Do not add to previous drawPerformed By: #### 41528, 26070 #### [facility] [address] [place] [address], [facility]HC (RBC) [Mass/Vol]32.1 g/oEKovept74.0-35.0The [facility] HospitalComment on above:Order Comment: No: Do not add to previous drawPerformed By: #### 06152, 52276 #### [facility] [address] [place] [id number], [facility] (RBC) [Entitic vol]97.0 bUFqaanc27.0-98.0The [facility] HospitalComment on above:Order Comment: No: Do not add to previous drawPerformed By: #### 34869, 01588 #### [facility] [address] [place] [address], USANucleated RBC/100 WBC (Bld) [Ratio]0 %Normal0-0The [facility] HospitalComment on above:Order Comment: No: Do not add to previous drawPerformed By: #### 38957, 35454 #### [facility] [address] [place] [address], USAPLAT LHZ444 10*3/jBSvlb804-814Sgj [facility] HospitalComment on above:Order Comment: No: Do not add to previous draw Performed By: #### 17703, 18679 #### [facility] [address] [place] [address], [facility] CENTERRBC (Bld) [#/Vol]3.72 10*6/uLLow3.80-5.00The [facility] HospitalComment on above:Order Comment: No: Do not add to previous drawPerformed By: #### 46200, 46851 #### [facility] [address] [facility] [place] [address], [facility] MEDICAL CENTERWBC (Bld) [#/Vol]16.46 10*3/uLHigh4.00-10.60The [facility] HospitalComment on above:Order Comment: No: Do not add to previous drawPerformed By: #### 73967, 76972 #### [facility] [address] [facility] [place] [address], [facility]*MRSA/MSSA DNA NASALon 07-07-2019*MRSA/MSSA DNA NASAL Clinical Report: (D) Specimen: NASAL SWAB Collected: 07/07/2019 08:00 Status: Final Last Updated: 07/07/2019 14:28 MSSA DNA (Final) Methicillin Susceptible Staphylococcus aureus DNA Detected MRSA DNA (Final) NegativeNoalThMarymount HospitalComment on above:Performed By: #### 07364, 33753 #### [place] [address], [facility] MEDICAL CENTERAPTTon 63-16-6971dXMS Coag (Bld) [Time]38.8 sHigh25.0-35.0 The [facility] HospitalComment on above:Result Comment: ALL RESULTS MUST BE INTERPRETED WITH RESPECT TO BLOOD DRAWING ARTIFACT OR DILUTION ERROR OF ANTICOAGULANT AT THE TIME OF SAMPLING. THE APTT SHOULD NOT BE USED TO MONITOR UNFRACTIONATED HEPARIN THERAPY, THIS LABORATORY NO LONGER HAS AN ESTABLISHED THERAPEUTIC RANGE BASED ON THE APTT. IT IS RECOMMENDED THAT THE UFH - HEPARIN ASSAY (ANTI-XA ACTIVITY) BE USED FOR THIS PURPOSE.Performed By: #### 11200, 11066 #### [facility] [address] [facility] [place] [address], [facility] MEDICAL CENTERCBC W/DIFFon 78-36-1359IVC BASOPHILS0.1 10*3/uLNormal 0.0-0.2The [facility] HospitalComment on above:Performed By: #### 79452 #### [facility] [address] [facility] [place] [address], [facility] MED[facility] CENTERABS IMM GRANS0.0 10*3/uLNormal0.0-0.2The [facility] HospitalComment on above:Performed By: #### 46507 #### [facility] [address] [place] [address], USAABS NEUTROPHILS4.9 10*3/uLNormal1.6-7.6The [facility] HospitalComment on above:Performed By: #### 01277 #### [facility] [address] [place] [address], USABasophils/100 WBC (Bld)1.0 %Normal0.0-1.0The [facility] HospitalComment on above:Performed By: #### 72171 #### [facility] [address] [place] [address], USAEosinophils (Bld) [#/Vol]0.2 10*3/uLNormal0.0-0.5The [facility] HospitalComment on above:Performed By: #### 48479 #### [facility] [address] [place] [address], USAEosinophils/100 WBC (Bld)3.0 %Normal0.0-6.0The [facility] HospitalComment on above:Performed By: #### 09704 #### [facility] [address] [address], USAErythrocyte distribution width (RBC) [Ratio]13.3 %Normal 11.5-15.0The [facility] HospitalComment on above:Performed By: #### 11913 #### [facility] [address] [address], USAHematocrit (Bld) [Volume fraction]36.9 %Qmzrav08.0-45.0The [facility] HospitalComment on above:Performed By: #### 71023 #### [facility] [address] [place] [address], USAHemoglobin (Bld) [Mass/Vol]12.2 g/fTShgbxt03.0-15.0The [facility] HospitalComment on above:Performed By: #### 59644 #### [facility] [address] [place] [address], USAIMMATURE GRANS0.5 %Normal0.0-1.0The [facility] HospitalComment on above:Performed By: #### 71521 #### [facility] [address] [place] [address], USALymphocytes (Bld) [#/Vol]2.0 10*3/uLNormal1.2-4.0The [facility] HospitalComment on above:Performed By: #### 32583 #### [facility] [address] [place] [address], [facility] MEDICAL CENTERLymphocytes/100 WBC (Bld)25.3 %Oewwlr89.0-45.0The [facility] HospitalComment on above:Performed By: #### 54226 #### [facility] [address] [address], [facility] MEDICAL CENTERMCH (RBC) [Entitic mass]31.4 eyHfrqxm89.0-33.0The [facility] HospitalComment on above:Performed By: #### 39425 #### [facility] [address] [place] [address], [facility] MEDICAL CENTERMCHC (RBC) [Mass/Vol]33.1 g/rGCukkyw18.0-35.0The [facility] HospitalComment on above:Performed By: #### 81557 #### [facility] [address] [facility] [place] [address], [facility] CENTERMCV (RBC) [Entitic vol]95.1 sLVguigj19.0-98.0The [facility] HospitalComment on above:Performed By: #### 04999 #### [facility] [address] [place] [address], USAMonocytes (Bld) [#/Vol]0.6 10*3/uLNormal0.1-1.0The [facility] HospitalComment on above:Performed By: #### 17372 #### [facility] [address] [place] [address], USAMONOS7.3 %Normal5.0-12.0The [facility] HospitalComment on above:Performed By: #### 26085 #### [facility] [address] [place] [address], USANeutrophils/100 WBC (Bld)62.9 %Ktdohp38.0-72.0The [facility] HospitalComment on above:Performed By: #### 73767 #### [facility] [address] [place] [address], USANucleated RBC/100 WBC (Bld) [Ratio]0 %Normal0-0The [facility] HospitalComment on above:Performed By: #### 30328 #### [facility] [address] [place] [address], USAPLAT YBO491 10*3/mMGdxjwh934-516Mkt [facility] HospitalComment on above:Performed By: #### 78892 #### [facility] [address] [place] [address], USARBC (Bld) [#/Vol]3.88 10*6/uLNormal3.80-5.00The [facility] HospitalComment on above:Performed By: #### 66413 #### [facility] [address] [place] [address], USAWBC (Bld) [#/Vol]7.72 10*3/uLNormal4.00-10.60The [facility] HospitalComment on above:Performed By: #### 84348 #### [facility] [address] [place] [address], USACOMP METABOLIC PANELon 87-24-6545Sxskzjx [Mass/Vol]3.9 g/dL Normal3.5-5.7The [facility] HospitalComment on above:Performed By: #### 47521 #### [facility] [address] [place] [address], USAALKALINE BRXOKD09 IU/JTxlagz70-776Xjv [facility] HospitalComment on above:Performed By: #### 43863 #### [facility] [address] [place] [address], USAALT [Catalytic activity/Vol]55 U/LHigh7-52The [facility] HospitalComment on above:Performed By: #### 01113 #### [facility] [address] [place] [address], USAAST [Catalytic activity/Vol]39 U/BUiecte03-12Vst [facility] HospitalComment on above:Performed By: #### 92870 #### [facility] [address] [place] [address], USABilirubin [Mass/Vol]0.4 mg/dLNormal0.3-1.0The [facility] HospitalComment on above:Performed By: #### 27831 #### [facility] [address] [place] [address], USACalcium [Mass/Vol]9.0 mg/dLNormal8.6-10.3The [facility] HospitalComment on above:Performed By: #### 66697 #### [facility] [address] [place] [address], USAChloride [Moles/Vol]104 mmol/CPrmiaq07-135Jhr [facility] HospitalComment on above:Performed By: #### 25436 #### [facility] [address] [place] [address], USACO2 [Moles/Vol]25 mmol/UQsxffg49-32Fts [facility] HospitalComment on above:Performed By: #### 40441 #### [facility] [address] [place] [address], USACreatinine [Mass/Vol]0.81 mg/dLNormal0.60-1.20The [facility] HospitalComment on above:Performed By: #### 76511 #### [facility] [address] [place] [address], USAGFR/1.73 sq M predicted among blacks MDRD (S/P/Bld) [Vol rate/Area]mL/min/{1.73_m2}Normal>60The [facility] Comment on above:Performed By: #### 53572 #### [facility] [address] [place] [address], USAGFR/1.73 sq M predicted among non-blacks MDRD (S/P/Bld) [Vol rate/Area]mL/min/{1.73_m2}Normal>60The [facility] Comment on above:Performed By: #### 79272 #### [facility] [address] [place] [address], USAGlucose [Mass/Vol]112 mg/cDZiio82-312Nzm [facility] HospitalComment on above:Performed By: #### 79315 #### [facility] [address] [place] [address], USAPotassium [Moles/Vol]3.5 mmol/LNormal3.5-5.1The [facility] HospitalComment on above:Performed By: #### 50033 #### [facility] [address] [place] [address], USAProtein [Mass/Vol]6.9 g/dLNormal6.0-8.3The [facility] HospitalComment on above:Performed By: #### 75809 #### [facility] [address] [place] [address], USASodium [Moles/Vol]134 mmol/XGcz188-411Oty [facility] HospitalComment on above:Performed By: #### 70466 #### [facility] [address] [place] [address], USAUrea nitrogen [Mass/Vol]10 mg/dLNormal7-25The [facility] HospitalComment on above:Performed By: #### 08179 #### [facility] [address] [address], USACT 3D LOWER EXTREMITY WO CONTRAST RIGHTon 98-22-4288CR 3D LOWER EXTREMITY WO CONTRAST RIGHTUnGrand Lake Joint [facility] Department of Radiology [address] [place] [address] Patient Name: LINDA ALVARADO : 1975 Sex: F Age: Race: White Pt. Location: [facility] Patient Status: I Ordered Date: 07/07/2019 2:05:00 [...] findings. Electronically signed by:Ying Enriquez. Transcribed by: [email or web address], User Resident: JANET HARRINGTON Electronically Signed by: YING ENRIQUEZ @ 07/07/2019 07:01 AM I personally read this/these film(s) with this [facility] HospitalComment on above:Order Comment: R/O Fractures, right leg from mid femur down to ankleKNEE RIGHT 1 OR 2 [facility] 47-34-7132CNEL RIGHT 1 OR 2 SUniSelect Medical [facility] Department of Radiology [address] [place] [address] Patient Name: LINDA ALVARADO : 1975 Sex: F Age: Race: White Pt. Location: [id number] Patient Status: I Ordered Date: 07/07/2019 7:20:00 [...] Documentation Electronically signed by:Ying Enriquez. Transcribed by: [email or web address], User Resident: Electronically Signed by: YING ENRIQUEZ @ 07/07/2019 01:40 PMNormalPremier Health Miami Valley HospitalComment on above:Order Comment: orif tibial plateau right, possible ex-fixOperative Reporton 80-63-1647Zhayejemq ReportMR#: [id number] [facility] Pt. Name: Linda Alvarado Room #: [id number] Discharge Date: Birthdate: 1975 OPERATIVE REPORT DATE [...] Cruz MD Date Trans: 07/07/2019 01:02 P/kelin DN_JN:[id number] cc: Elver Mendenhall M.D. [address] [facility] [address] Leslye Doss M.D. [facility]...do Not Send [address] [facility] [address]QywbboKnpSelect Medical [facility] Clinic Rehabilitation Hospital, AvonPO GLUCOSE LABon 82-84-0951Xufvrlh [Mass/Vol]92 mg/iKYrbswz91-790Zpk [facility] HospitalComment on above:Performed By: #### 99652 #### [facility] [address] [facility] [place] [address], [facility] CENTERPO URINE PREGNANCYon 97-81-1656Pdlu HCG ( test) Ql (U)NegativeNormalNEGATIVEThe [facility] Community HospitalComment on above:Result Comment: Performed in Emergency Department.Performed By: #### 78747 #### [facility] [address] [facility] [place] [address], USAPROTHROMBIN TIMEon 78-33-8615TSC Coag (PPP) [Relative time] 1.12 {INR}Normal0.91-1.16The [facility] HospitalComment on above:Result Comment: ACCCP RECOMMENDED INR FOR WARFARIN THERAPY ------- CONDITION INR PROPHYLAXIS OF VENOUS THROMBOSIS 2-3 (HIGH-RISK SURGERY) TREATMENT OF VENOUS THROMBOSIS 2-3 TREATMENT OF PULMONARY EMBOLISM 2-3 PREVENTION OF SYSTEMIC EMBOLISM: 2-3 ACUTE MYOCARDIAL INFARCTION TISSUE HEART VALVES VALVULAR HEART DISEASE ATRIAL FIBRILLATION RECURRENT SYSTEMIC EMBOLISM MECHANICAL HEART VALVE 2.5-3.5 FROM: ORAL ANTICOAGULANTS. MECHANISM OF ACTION, CLINICAL EFFECTIVENESS, AND OPTIMAL THERAPEUTIC RANGE. CHEST 1995;108:231S-246S.Performed By: #### 32744, 60444 #### [facility] [address] [place] [address], USAPT Coag (PPP) [Time]14.5 qEmiwsr53.3-14.8The [facility] HospitalComment on above:Result Comment: ALL RESULTS MUST BE INTERPRETED WITH RESPECT TO BLOOD DRAWING ARTIFACT OR DILUTION ERROR OF ANTICOAGULANT AT THE TIME OF SAMPLING.Performed By: #### 51769, 12485 #### [facility] [address] [place] [address], USARBC'S 2 UNITSon 33-70-6638IMDDQZHRAQ INTERP 1CMary Rutan HospitalComment on above:Performed By: #### 06201 #### [facility] [address] [place] [address], USACROSSMATCH INTERP 2CMary Rutan HospitalComment on above:Performed By: #### 05694 #### [facility] [address] [place] [address], USAPRODUCT CODE [id number] Health Greene MemorialComment on above:Performed By: #### 96433 #### [facility] [address] [place] [address], USAPRODUCT CODE [id number] Health Greene MemorialComment on above:Performed By: #### 59161 #### [facility] [address] [place] [address], USAPRODUCT STATUS 1RUniversity Hospitals St. John Medical CenterComment on above:Result Comment: Result changed by IF on 07/11/2019 09:02. The previous value was XM.Performed By: #### 17554 #### [facility] [address] [place] [address], USAPRODUCT STATUS 2RUniversity Hospitals St. John Medical CenterComment on above:Result Comment: Result changed by IF on 07/11/2019 09:02. The previous value was XM.Performed By: #### 22983 #### [facility] [address] [place] [address], USAUNIT ABO 1[facility] Comment on above:Performed By: #### 25451 #### [facility] [address] [place] [address], USAUNIT ABO 2[facility] Comment on above:Performed By: #### 18507 #### [facility] [address] [place] [address], USAUNIT ID [id number] HospitalComment on above:Performed By: #### 00263 #### [facility] [address] [place] [address], USAUNIT ID [id number] Healthcare System GlenbeighComment on above:Performed By: #### 68808 #### [facility] [address] [place] [address], USAUNIT RH 1NSelect Medical [facility] Clinic Rehabilitation Hospital, AvonComment on above:Performed By: #### 82938 #### [facility] [address] [place] [address], USAUNIT RH 2NSelect Medical [facility] Clinic Rehabilitation Hospital, AvonComment on above:Performed By: #### 39953 #### [facility] [address] [place] [address], USATYPE AND SCREENon 11-51-1245DZT INTERPRETATIONONoKettering Health Greene MemorialComment on above:Performed By: #### 64451 #### [facility] [address] [place] [address], USARH INTERPRETATIONNegativeNoKettering Health Greene MemorialComment on above:Performed By: #### 24743 #### [facility] [address] [place] [address], USAXR KNEE RT 4V OR >on 13-48-1939GM KNEE RT 4V OR >Patient: LINDA ALVARADO Exam Date: 07/06/2019 : 1975 Gender:F Ordering : LISHA MANZANARES PA Admission #: [id number] Family : Order #: [id number] CLICK HERE TO VIEW EXAM RADIOLOGY REPORT [...] by: Eben Crowley M.D. on 07/07/2019 at 07:26City HospitalECHOCARDIO M/2D COMPLETEon 21-16-1577UCKBWTIZDZ M/2D COMPLETEPatient: LINDA ALVARADO Exam Date: 06/08/2019 : 1975 Gender:F Ordering : DR GITA GARCIA PA Admission #: [id number] Family : Order #: [id number] CLICK HERE TO VIEW EXAM ECHOCARDIOGRAM REPORT [...] Area(A4C): 17.60 cm2 Left Atrium Systolic Volume(A2C): 43524 mm3 Left Atrium Systolic Volume(A4C): 69204 mm3 Mitral Valve MV E to A [...] by: Elver Elmore M.D. on 06/09/2019 at 13:09NormalThMetroHealth Cleveland Heights Medical CenterCB AUTO DIFFon 24-17-2728Dsngevopw (Bld) [#/Vol]0.1 103/ulNormal0.0-0.1 The [facility] Medical CenterComment on above:Performed By: #### LIPLayo, CMP #### [facility] [address] [place] [address] Jose KarenBasophils/100 WBC (Bld)1.4 %Normal0.2-2.0The [facility] Comment on above:Performed By: #### LIPLayo, CMP #### [facility] [address] [place] [address] Jose KarenEosinophils (Bld) [#/Vol]0.3 103/ulNormal0.0-0.7The [facility] Medical CenterComment on above:Performed By: #### LIPLayo, CMP #### [facility] [address] [place] [address] Jose KarenEosinophils/100 WBC (Bld)2.9 %Normal0.9-7.0The [facility] Comment on above:Performed By: #### LIPA, CMP #### [facility] [address] [place] [address] Jose KarenErythrocyte distribution width (RBC) [Ratio]13.5 %Hwtqwb81.0-15.0The [facility] Medical CenterComment on above:Performed By: #### LIPA, CMP #### [facility] [address] [place] [address] Jose KarenHematocrit (Bld) [Volume fraction]37.3 %Rhhziv54.0-48.0The [facility] Medical CenterComment on above:Performed By: #### LIPA, CMP #### [facility] [address] [place] [address] Jose KarenHemoglobin (Bld) [Mass/Vol]12.5 g/hQGvohgi77.0-16.0[facility] HospitalComment on above:Performed By: #### MISAEL, CMP #### [facility] [address] [place] [address] Jose CabanenIG #0.05 10e3/ulCritically high0.00-0.03The [facility] Medical CenterComment on above:Performed By: #### MISAEL, CMP #### [facility] [address] [place] [address] Jose KarenIG %0.6 %Critically high0.0-0.5The [facility] Medical CenterComment on above:Performed By: #### MISAEL, CMP #### [facility] [address] [place] [address] Jose KarenLymphocytes (Bld) [#/Vol]2.4 103/ulNormal1.2-3.8The [facility] Medical CenterComment on above:Performed By: #### MISAEL, CMP #### [facility] [address] [place] [address] Jose KarenLymphocytes/100 WBC (Bld)27.2 %Uxtnun14.5-60.0[facility] Comment on above:Performed By: #### MISAEL, CMP #### [facility] [address] [place] [address] Jose KarenMANUAL DIFF REQNONormalThe [facility] Medical CenterComment on above: Performed By: #### MISAEL, CMP #### [facility] [address] [place] [address] Jose KarenH (RBC) [Entitic mass]32.1 jjArogay57.7-34.0[facility] Comment on above:Performed By: #### MISAEL, CMP #### [facility] [address] [place] [address] Jose KarenMCHC (RBC) [Mass/Vol]33.5 g/pHMijkfj13.9-35.2[facility] Comment on above:Performed By: #### MISAEL, CMP #### [facility] [address] [place] [address] Jose KarenMCV (RBC) [Entitic vol]95.6 jDJccdjn11.0-99.0The [facility] Comment on above:Performed By: #### EDUARDOA, CMP #### [facility] [address] [place] [address] Jose KarenMonocytes (Bld) [#/Vol]0.8 103/ulNormal0.3-0.8The [facility] Comment on above:Performed By: #### LIPA, CMP #### [facility] [address] [place] [address] Jose KarenMonocytes/100 WBC (Bld)8.7 %Normal1.7-12.0[facility] Comment on above:Performed By: #### LIPA, CMP #### [facility] [facility] [address] [place] [address] Jose KarenNeutrophils (Bld) [#/Vol]5.2 103/ulNormal1.4-6.5The [facility] CenterComment on above:Performed By: #### LIPA, CMP #### [facility] [address] [place] [address] Jose KarenNeutrophils/100 WBC (Bld)59.2 %Hctogg07.0-75.0The [facility] Comment on above:Performed By: #### LIPA, CMP #### [facility] [address] [place] [address] Jose KarenPlatelet mean volume (Bld) [Entitic vol]8.8 fLCritically low9.5-13.5 The [facility] CenterComment on above:Performed By: #### LIPA, CMP #### [facility] [address] [place] [address] Jose KarenPlatelets (Bld) [#/Vol]401 103/isYolbyw993-189Jby [facility] Comment on above:Performed By: #### LIPA, CMP #### [facility] [address] [place] [address] Jose KarenRBC (Bld) [#/Vol]3.90 106/ulCritically low4.20-5.40The [facility] CenterComment on above:Performed By: #### MISAEL CMP #### [facility] [address] [place] [address] Jose KarenWBC (Bld) [#/Vol]8.7 103/ulNormal4.0-11.0[facility] Comment on above:Performed By: #### MISAEL, CMP #### [facility] [address] [place] [address] Jose KarenD-DIMERon [id number]-DIMER COMMENTSSEE BELOWNoMagruder Memorial HospitalComment on above:Result Comment: Increases in D-Dimer concentration observed with thromboembolic events [...] thrombolytic or anticoagulant therapy, stress, and generalizd hospitalization.Performed By: #### MISAEL CMP #### [facility] [address] [place] [address] Jose CabanenFibrin D-dimer FEU IA (Bld) [Mass/Vol]0.19 ug/mLNormal0.19-0.50The [facility] CenterComment on above:Performed By: #### MISAEL CMP #### [facility] [address] [place] [address] Jose KarenPREG HCG QUALon [id number], QUALNegativeNormalNEGATIVEThe [facility] CenterComment on above:Performed By: #### MISAEL, CMP #### [facility] [address] [place] [address] Jose KarenPROF CHEM 8 (BAS METB)on [phone] gap [Moles/Vol]10.9 mmol/L NormalThe [facility] CenterComment on above:Performed By: #### MISAEL, CMP #### [facility] [address] [address] Jose KarenCalcium [Mass/Vol]9.3 mg/dLNormal8.4-10.2[facility] Comment on above:Performed By: #### LIPLayo, CMP #### [facility] [address] [place] [address] Jose KarenChloride [Moles/Vol]104 mmol/LOgaxmg38-766Zwb [facility] Comment on above:Performed By: #### MISAEL, CMP #### [facility] [address] [place] [address] Jose KarenCO2 [Moles/Vol]28.7 mmol/CMetomi93.0-30.0[facility] Comment on above:Performed By: #### MISAEL, CMP #### [facility] [address] [place] [address] Jose KarenCreatinine [Mass/Vol]0.91 mg/dLNormal0.52-1.04[facility] Comment on above:Performed By: #### LIPLayo, CMP #### [facility] [address] [place] [address] Jose KarenEGFR-AF PRYDEINIG>60Normal>=60[facility] HospitalComment on above: Performed By: #### LIPLayo, CMP #### [facility] [address] [place] [address] Jose KarenEGFR-NON AF PRYDEINIG>60Normal>=60The [facility] CenterComment on above:Performed By: #### LIPA, CMP #### [facility] [address] [place] [address] Jose KarenGlucose [Mass/Vol]97 mg/mRWgbnxg01-454IwiCleveland Clinic Mentor HospitalComment on above:Performed By: #### LIPA, CMP #### [facility] [address] [place] [address] Jose KarenPotassium [Moles/Vol]3.6 mmol/LNormal3.4-5.0[facility] Comment on above:Performed By: #### MISAEL, CMP #### [facility] [address] [address] Jose KarenSodium [Moles/Vol]140 mmol/WYwchth714-350Xtu [facility] Comment on above:Performed By: #### MISAEL, CMP #### [facility] [address] [place] [address] Jose KarenUrea nitrogen [Mass/Vol]10.0 mg/dLNormal7.0-17.0The [facility] CenterComment on above:Performed By: #### MISAEL, CMP #### [facility] [address] [place] [address] Jose KarenUrea nitrogen/Creatinine [Mass ratio]11.0 mg/mgNoMagruder Memorial HospitalComment on above:Performed By: #### MISAEL, CMP #### [facility] [address] [place] [address] Jose KarenPROTIMEon [id number] Coag (PPP) [Relative time]1.03 {INR}Normal The [facility] CenterComment on above:Performed By: #### MISAEL, CMP #### [facility] [address] [place] [address] Jose KarenPT Coag (PPP) [Time]SEE BELOWNoMercy Health St. Charles Hospitalment on above:Result Comment: DESIRED INR: 2.0 - 3.0 CONDITIONS NOT LISTED BELOW 2.5 - 3.5 FOR PROSTHETIC HEART VALVE REPLACEMENT 2.5 - 3.5 RECURRENT THROMBOSIS Performed By: #### MISAEL, CMP #### [facility] [address] [place], [place] [id number] Jose KarenPT Coag (PPP) [Time]PLEASE NOTE: NORMAL RANGE CHANGE 05-20-2014 DUE TO REAGENT LOT CHANGENoMagruder Memorial HospitalComtrinity health [facility] on above:Performed By: #### MISAEL, CMP #### [facility] [address] [place] [address] Jose KarenPT Coag (PPP) [Time]10.7 sNormal9.0-11.6The [facility] Hospitalment on above:Performed By: #### MISAEL, CMP #### [facility] [address] [place] [address] Jose KarenPTTon [phone] Coag (Bld) [Time]27.8 dRuyyyj06.3-36.2The [facility] CenterComment on above:Performed By: #### MISAEL, CMP #### [facility] [address] [place] [address] Jose KarenaPTT Coag (Bld) [Time]PLEASE NOTE: NORMAL RANGE CHANGE 07-27-2015 DUE TO REAGENT LOT CHANGENormalThe [facility] CenterComment on above:Performed By: #### MISAEL, CMP #### [facility] [address] [place] [address] Jose KarenCBC AUTO DIFFon [phone] (Bld) [#/Vol]0.1 103/ulNormal 0.0-0.1The [facility] CenterComment on above:Performed By: #### CBC #### [facility] [address] [place] [address] Jose KarenBasophils/100 WBC (Bld)1.2 %Normal0.2-2.0The [facility] Comment on above:Performed By: #### CBC #### [facility] [address] [place] [address] Jose KarenEosinophils (Bld) [#/Vol]0.2 103/ulNormal0.0-0.7The [facility] CenterComment on above:Performed By: #### CBC #### [facility] [address] [place] [address] Jose KarenEosinophils/100 WBC (Bld)5.9 %Normal0.9-7.0The [facility] Comment on above:Performed By: #### CBC #### [facility] [address] [place] [address] Jose KarenErythrocyte distribution width (RBC) [Ratio]13.7 %Knsqgl08.0-15.0The [facility] CenterComment on above:Performed By: #### CBC #### [facility] [address] [place] [address] Jose KarenHematocrit (Bld) [Volume fraction]36.3 %Kstpxz79.0-48.0The [facility] CenterComment on above:Performed By: #### CBC #### [facility] [address] [place] [address] Jose KarenHemoglobin (Bld) [Mass/Vol]12.1 g/kULgugjj57.0-16.0The [facility] CenterComment on above:Performed By: #### CBC #### [facility] [address] [place] [address] Jose KarenIG #0.01 10e3/ulNormal0.00-0.03The [facility] CenterComment on above:Performed By: #### CBC #### [facility] [address] [place] [address] Jose KarenIG %0.2 %Normal0.0-0.5The [facility] CenterComment on above: Performed By: #### CBC #### [facility] [address] [place] [address] Jose KarenLymphocytes (Bld) [#/Vol]1.2 103/ulNormal1.2-3.8The [facility] CenterComment on above:Performed By: #### CBC #### [facility] [address] [place] [address] Jose KarenLymphocytes/100 WBC (Bld)30.3 %Mvcymb43.5-60.0The [facility] Comment on above:Performed By: #### CBC #### [facility] [address] [place] [address] Jose KarenMANUAL DIFF REQNONormalThe [facility] CenterComment on above: Performed By: #### CBC #### [facility] [address] [place] [address] Jose KarenMCH (RBC) [Entitic mass]32.2 ryJuedpr16.7-34.0The [facility] Comment on above:Performed By: #### CBC #### [facility] [address] [id number] Jose KarenMCHC (RBC) [Mass/Vol]33.3 g/zCAqsdde06.9-35.2The [facility] Comment on above:Performed By: #### CBC #### [facility] [address] [address] Jose KarenMCV (RBC) [Entitic vol]96.5 rRBckykz16.0-99.0The [facility] Comment on above:Performed By: #### CBC #### [facility] [address] [place] [address] Jose KarenMonocytes (Bld) [#/Vol]0.4 103/ulNormal0.3-0.8The [facility] Comment on above:Performed By: #### CBC #### [facility] [address] [place] [address] Jose KarenMonocytes/100 WBC (Bld)9.4 %Normal1.7-12.0[facility] Comment on above:Performed By: #### CBC #### [facility] [address] [place] [address] Jose KarenNeutrophils (Bld) [#/Vol]2.2 103/ulNormal1.4-6.5The [facility] CenterComment on above:Performed By: #### CBC #### [facility] [address] [place], [place] [address] Jose KarenNeutrophils/100 WBC (Bld)53.0 %Bemyjl17.0-75.0The [facility] Comment on above:Performed By: #### CBC #### [facility] [address] [place], [place] [address] Jose KarenPlatelet mean volume (Bld) [Entitic vol]8.6 fLCritically low9.5-13.5 The [facility] CenterComment on above:Performed By: #### CBC #### [facility] [address] [place], [place] [address] Jose KarenPlatelets (Bld) [#/Vol]279 103/ozLuzsdh875-403Irr [facility] Comment on above:Performed By: #### CBC #### [facility] [address] [place] [address] Jose KarenRBC (Bld) [#/Vol]3.76 106/ulCritically low4.20-5.40The [facility] CenterComment on above:Performed By: #### CBC #### [facility] [address] [place] [address] Jose KarenWBC (Bld) [#/Vol]4.1 103/ulNormal4.0-11.0The [facility] Comment on above:Performed By: #### CBC #### [facility] [address] [place] [address] Jose KarenPROF CHEM 8 (BAS METB)on [phone] gap [Moles/Vol]10.6 mmol/L NormalCleveland Clinic Mentor HospitalComment on above:Performed By: #### BMP #### [facility] [address] [place] [address] Jose KarenCalcium [Mass/Vol]8.1 mg/dLCritically low8.4-10.2The [facility] CenterComment on above:Performed By: #### BMP #### [facility] [address] [place] [address] Jose KarenChloride [Moles/Vol]111 mmol/LCritically jxpi58-662Jem [facility] CenterComment on above:Performed By: #### BMP #### [facility] [address] [place] [address] Jose KarenCO2 [Moles/Vol]24.7 mmol/EYmcgoo32.0-30.0The [facility] Comment on above:Performed By: #### BMP #### [facility] [address] [place] [address] Jose KarenCreatinine [Mass/Vol]0.80 mg/dLNormal0.52-1.04The [facility] Comment on above:Performed By: #### BMP #### [facility] [address] [place] [address] Jose KarenEGFR-AF PRYDEINIG>60Normal>=60The [facility] CenterComment on above: Performed By: #### BMP #### [facility] [address] [place] [address] Jose KarenEGFR-NON AF PRYDEINIG>60Normal>=60The [facility] CenterComment on above:Performed By: #### BMP #### [facility] [address] [place] [address] Jose KarenGlucose [Mass/Vol]93 mg/uKQapdjd96-083Aft [facility] CenterComment on above:Performed By: #### BMP #### [facility] [address] [place] [address] Jose KarenPotassium [Moles/Vol]4.3 mmol/LNormal3.4-5.0The [facility] Comment on above:Performed By: #### BMP #### [facility] [address] [place] [address] Jose KarenSodium [Moles/Vol]142 mmol/HDqiaxd561-965Nxz [facility] Comment on above:Performed By: #### BMP #### [facility] [address] [place] [address] Jose KarenUrea nitrogen [Mass/Vol]6.0 mg/dLCritically low7.0-17.0The [facility] CenterComment on above:Performed By: #### BMP #### [facility] [address] [place] [address] Jose KarenUrea nitrogen/Creatinine [Mass ratio]7.5 mg/mgNormalThe [facility] CenterComment on above:Performed By: #### BMP #### [facility] [address] [place] [address] Jose KarenCBC AUTO DIFFon [phone] (Bld) [#/Vol]0.0 103/ulNormal 0.0-0.1The [facility] CenterComment on above:Performed By: #### CBC #### [facility] [address] [place] [address] Jose KarenBasophils/100 WBC (Bld)0.4 %Normal0.2-2.0The [facility] Comment on above:Performed By: #### CBC #### [facility] [address] [place] [address] Jose KarenEosinophils (Bld) [#/Vol]0.1 103/ulNormal0.0-0.7The [facility] CenterComment on above:Performed By: #### CBC #### [facility] [address] [place] [address] Jose KarenEosinophils/100 WBC (Bld)1.3 %Normal0.9-7.0The [facility] Comment on above:Performed By: #### CBC #### [facility] [address] [place] [address] Jose KarenErythrocyte distribution width (RBC) [Ratio]13.4 %Wimnep45.0-15.0The [facility] CenterComment on above:Performed By: #### CBC #### [facility] [address] [place] [address] Jose KarenHematocrit (Bld) [Volume fraction]37.0 %Pplbke12.0-48.0The [facility] CenterComment on above:Performed By: #### CBC #### [facility] [address] [place] [address] Jose KarenHemoglobin (Bld) [Mass/Vol]12.9 g/lVLsxxqo00.0-16.0The [facility] CenterComment on above:Result Comment: repeated slide reviewed tsPerformed By: #### CBC #### [facility] [address] [place] [address] Jose KarenIG #0.02 10e3/ulNormal0.00-0.03The [facility] CenterComment on above:Performed By: #### CBC #### [facility] [address] [place] [address] Jose KarenIG %0.3 %Normal0.0-0.5The [facility] CenterComment on above: Performed By: #### CBC #### [facility] [address] [id number] Jose KarenLymphocytes (Bld) [#/Vol]0.7 103/ulCritically low1.2-3.8The [facility] CenterComment on above:Performed By: #### CBC #### [facility] [address] [address] Jose KarenLymphocytes/100 WBC (Bld)9.2 %Critically low20.5-60.0The [facility] CenterComment on above:Performed By: #### CBC #### [facility] [address] [place] [address] Jose KarenMANUAL DIFF REQNONormalThe [facility] CenterComment on above: Performed By: #### CBC #### [facility] [address] [place] [address] Jose KarenMCH (RBC) [Entitic mass]32.4 mqUqvcfr24.7-34.0The [facility] Comment on above:Performed By: #### CBC #### [facility] [address] [place] [address] Jose KarenMCHC (RBC) [Mass/Vol]34.9 g/jIXjdkev39.9-35.2[facility] Comment on above:Performed By: #### CBC #### [facility] [address] [place] [address] Jose KarenMCV (RBC) [Entitic vol]93.0 oGUutocn28.0-99.0The [facility] Comment on above:Performed By: #### CBC #### [facility] [address] [place] [address] Jose KarenMonocytes (Bld) [#/Vol]0.3 103/ulNormal0.3-0.8The [facility] Comment on above:Performed By: #### CBC #### [facility] [address] [place] [address] Jose KarenMonocytes/100 WBC (Bld)3.6 %Normal1.7-12.0[facility] Comment on above:Performed By: #### CBC #### [facility] [address] [place] [address] Jose KarenNeutrophils (Bld) [#/Vol]6.4 103/ulNormal1.4-6.5The [facility] CenterComment on above:Performed By: #### CBC #### [facility] [address] [place] [address] Jose KarenNeutrophils/100 WBC (Bld)85.2 %Critically high43.0-75.0The [facility] CenterComment on above:Performed By: #### CBC #### [facility] [address] [place] [address] Jose KarenPlatelet mean volume (Bld) [Entitic vol]8.7 fLCritically low9.5-13.5 [facility] HospitalComment on above:Performed By: #### CBC #### [facility] [address] [place] [address] Jose KarenPlatelets (Bld) [#/Vol]401 103/qzChvkjr205-318Ygj [facility] Comment on above:Performed By: #### CBC #### [facility] [address] [place] [address] Jose KarenRBC (Bld) [#/Vol]3.98 106/ulCritically low4.20-5.40The [facility] CenterComment on above:Performed By: #### CBC #### [facility] [address] [place] [address] Jose KarenWBC (Bld) [#/Vol]7.5 103/ulNormal4.0-11.0[facility] Comment on above:Performed By: #### CBC #### [facility] [address] [place] [address] Jose KarenPOTASSIUMon 49-87-1607Dcoxcyuzk [Moles/Vol]3.9 mmol/LNormal3.4-5.0 The [facility] CenterComment on above:Performed By: #### K #### [facility] [address] [place] [address] Joes KarenPROF 14(COMP METB)on [id number] [Mass/Vol]3.2 g/dLCritically low3.5-5.0The [facility] CenterComment on above:Performed By: #### CMP #### [facility] [address] [place] [address] Jose KarenAlbumin/Globulin [Mass ratio]1.1 {ratio}NormalThe [facility] Comment on above:Performed By: #### CMP #### [facility] [address] [place] [address] Jose KarenALP [Catalytic activity/Vol]50 U/GLvietd38-328Pkn [facility] Comment on above:Performed By: #### CMP #### [facility] [address] [place] [address] Jose KarenALT [Catalytic activity/Vol]60 U/LCritically high9-52The [facility] CenterComment on above:Performed By: #### CMP #### [facility] [address] [place] [address] Jose KarenAnion gap [Moles/Vol]8.7 mmol/LNormalThe [facility] CenterComment on above:Performed By: #### CMP #### [facility] [address] [place] [address] Jose KarenAST [Catalytic activity/Vol]41 U/LCritically vrcy42-51Hby [facility] CenterComment on above:Performed By: #### CMP #### [facility] [address] [place] [address] Jose KarenBilirubin Ql (U)0.5 mg/dLNormal0.2-1.3The [facility] HospitalComment on above:Performed By: #### CMP #### [facility] [address] [place] [address] Jose KarenCalcium [Mass/Vol]7.7 mg/dLCritically low8.4-10.2The [facility] CenterComment on above:Performed By: #### CMP #### [facility] [address] [place], [place] [address] Jose KarenChloride [Moles/Vol]107 mmol/GMvnwzy15-580Ska [facility] Comment on above:Performed By: #### CMP #### [facility] [address] [place] [address] Jose KarenCO2 [Moles/Vol]27.1 mmol/DTqihnk22.0-30.0The [facility] Comment on above:Performed By: #### CMP #### [facility] [address] [place] [address] Jose KarenCreatinine [Mass/Vol]0.93 mg/dLNormal0.52-1.04The [facility] Comment on above:Performed By: #### CMP #### [facility] [address] [place] [address] Jose KarenEGFR-AF PRYDEINIG>60Normal>=60The [facility] CenterComment on above: Performed By: #### CMP #### [facility] [address] [place] [address] Jose KarenEGFR-NON AF PRYDEINIG>60Normal>=60The [facility] CenterComment on above:Performed By: #### CMP #### [facility] [address] [place] [address] Jose KarenGlobulin (S) [Mass/Vol]3.0 g/dLNormalThe [facility] CenterComment on above:Performed By: #### CMP #### [facility] [address] [place] [address] Jose KarenGlucose [Mass/Vol]114 mg/dLCritically lyse20-405Vrn [facility] CenterComment on above:Performed By: #### CMP #### [facility] [address] [place] [address] Jose KarenPotassium [Moles/Vol]2.8 mmol/LCritically low3.4-5.0The [facility] CenterComment on above:Result Comment: test repeated critical value verified Performed By: #### CMP #### [facility] [address] [place] [address] Jose KarenProtein [Mass/Vol]6.2 g/dLNormal6.1-8.2The [facility] CenterComment on above:Performed By: #### CMP #### [facility] [address] [address] Jose KarenSodium [Moles/Vol]141 mmol/BTmchtv225-555Uji [facility] Comment on above:Performed By: #### CMP #### [facility] [address] [place], [place] [address] Jose KarenUrea nitrogen [Mass/Vol]16.0 mg/dLNormal7.0-17.0[facility] HospitalComment on above:Performed By: #### CMP #### [facility] [address] [id number] Jose KarenUrea nitrogen/Creatinine [Mass ratio]17.2 mg/mgNoMagruder Memorial HospitalComment on above:Performed By: #### CMP #### [facility] [address] [place], [place] [address] Jose KarenXR ABD FLAT UP/PA Natalya [id number] ABD FLAT UP/PA CHPatient: LINDA ALVARADO Exam Date: 12/26/2018 : 1975 Gender:F Ordering : DR. NICHOLAS BOLTON . Admission #: [id number] Family : Order #: [id number] CLICK HERE TO VIEW EXAM RADIOLOGY REPORT [...] by: Jane Naqvi M.D. on 12/27/2018 at 07:37[facility] CBC AUTO DIFFon [id number] (Bld) [#/Vol]0.1 103/ulNormal0.0-0.1The [facility] CenterComment on above:Performed By: #### CBC #### [facility] [address] [place] [address] Jose KarenBasophils/100 WBC (Bld)0.7 %Normal0.2-2.0The [facility] Comment on above:Performed By: #### CBC #### [facility] [address] [place] [address] Jose KarenEosinophils (Bld) [#/Vol]0.3 103/ulNormal0.0-0.7The [facility] CenterComment on above:Performed By: #### CBC #### [facility] [address] [place] [address] Jose KarenEosinophils/100 WBC (Bld)2.2 %Normal0.9-7.0The [facility] Comment on above:Performed By: #### CBC #### [facility] [address] [place] [address] Jose KarenErythrocyte distribution width (RBC) [Ratio]13.5 %Elgdxs08.0-15.0The [facility] CenterComment on above:Performed By: #### CBC #### [facility] [address] [place] [address] Jose KarenHematocrit (Bld) [Volume fraction]46.0 %Mjxkzr07.0-48.0The [facility] CenterComment on above:Performed By: #### CBC #### [facility] [address] [place] [address] Jose KarenHemoglobin (Bld) [Mass/Vol]15.7 g/zKTukriw38.0-16.0The [facility] CenterComment on above:Performed By: #### CBC #### [facility] [address] [place] [address] Jose KarenIG #0.05 10e3/ulCritically high0.00-0.03The [facility] CenterComment on above:Performed By: #### CBC #### [facility] [address] [address] Jose KarenIG %0.4 %Normal0.0-0.5The [facility] CenterComment on above: Performed By: #### CBC #### [facility] [address] [place] [address] Jose KarenLymphocytes (Bld) [#/Vol]1.0 103/ulCritically low1.2-3.8The [facility] CenterComment on above:Performed By: #### CBC #### [facility] [address] [place] [address] Jose KarenLymphocytes/100 WBC (Bld)8.8 %Critically low20.5-60.0The [facility] CenterComment on above:Performed By: #### CBC #### [facility] [address] [place] [address] Jose KarenMANUAL DIFF REQNONormalThe [facility] CenterComment on above: Performed By: #### CBC #### [facility] [address] [place] [address] Jose KarenMCH (RBC) [Entitic mass]31.7 mqWwjpby28.7-34.0[facility] Comment on above:Performed By: #### CBC #### [facility] [address] [place] [address] Jose KarenMCHC (RBC) [Mass/Vol]34.1 g/cJPaaule21.9-35.2[facility] Comment on above:Performed By: #### CBC #### [facility] [address] [place] [address] Jose KarenMCV (RBC) [Entitic vol]92.9 vOMesigy08.0-99.0[facility] Comment on above:Performed By: #### CBC #### [facility] [address] [place] [address] Jose KarenMonocytes (Bld) [#/Vol]0.3 103/ulNormal0.3-0.8ThMetroHealth [facility] Comment on above:Performed By: #### CBC #### [facility] [address] [place], [place] [address] Jose KarenMonocytes/100 WBC (Bld)2.8 %Normal1.7-12.0The [facility] Comment on above:Performed By: #### CBC #### [facility] [address] [id number] Jose KarenNeutrophils (Bld) [#/Vol]9.8 103/ulCritically high1.4-6.5The [facility] CenterComment on above:Performed By: #### CBC #### [facility] [address] [id number] Jose KarenNeutrophils/100 WBC (Bld)85.1 %Critically high43.0-75.0The [facility] CenterComment on above:Performed By: #### CBC #### [facility] [address] [place] [address] Jose KarenPlatelet mean volume (Bld) [Entitic vol]8.6 fLCritically low9.5-13.5 The [facility] CenterComment on above:Performed By: #### CBC #### [facility] [address] [place], [place] [address] Jose KarenPlatelets (Bld) [#/Vol]543 103/ulCritically syvn842-557Ens [facility] CenterComment on above:Performed By: #### CBC #### [facility] [address] [place], [place] [address] Jose KarenRBC (Bld) [#/Vol]4.95 106/ulNormal4.20-5.40The [facility] Comment on above:Performed By: #### CBC #### [facility] [address] [place], [place] [address] Jose KarenWBC (Bld) [#/Vol]11.5 103/ulCritically high4.0-11.0The [facility] CenterComment on above:Performed By: #### CBC #### [facility] [address] [place] [address] Jose KarenLIPASEon [id number] [Catalytic activity/Vol]186.0 U/LNormal 23.0-300.0The [facility] CenterComment on above:Performed By: #### MISAEL, CMP #### [facility] [address] [place] [address] Jose KarenPROF 14(COMP METB)on [id number] [Mass/Vol]4.5 g/dLNormal 3.5-5.0The [facility] CenterComment on above:Performed By: #### MISAEL, CMP #### [facility] [address] [place] [address] Jose KarenAlbumin/Globulin [Mass ratio]1.2 {ratio}NormalThe [facility] Comment on above:Performed By: #### MISAEL, CMP #### [facility] [address] [place] [address] Jose KarenALP [Catalytic activity/Vol]65 U/WDqomhp54-338Ucb [facility] Comment on above:Performed By: #### MISAEL, CMP #### [facility] [address] [place] [address] Jose KarenALT [Catalytic activity/Vol]75 U/LCritically high9-52The [facility] CenterComment on above:Performed By: #### MISAEL, CMP #### [facility] [address] [place] [address] Jose KarenAnion gap [Moles/Vol]10.7 mmol/LNormalThe [facility] CenterComment on above:Performed By: #### MISAEL, CMP #### [facility] [address] [place] [address] Jose KarenAST [Catalytic activity/Vol]51 U/LCritically lkpn88-66Zeg [facility] CenterComment on above:Performed By: #### MISAEL, CMP #### [facility] [address] [place] [address] Jose KarenBilirubin Ql (U)0.6 mg/dLNormal0.2-1.3The [facility] CenterComment on above:Performed By: #### MISAEL, CMP #### [facility] [address] [place], [place] [address] Jose KarenCalcium [Mass/Vol]9.3 mg/dLNormal8.4-10.2The [facility] Comment on above:Performed By: #### MISAEL, CMP #### [facility] [address] [address] Jose KarenChloride [Moles/Vol]103 mmol/HQbfjeh50-390Ewn [facility] Comment on above:Performed By: #### MISAEL, CMP #### [facility] [address] [address] Jose KarenCO2 [Moles/Vol]28.8 mmol/JIhwbwt96.0-30.0The [facility] Comment on above:Performed By: #### MISAEL, CMP #### [facility] [address] [place] [address] Jose KarenCreatinine [Mass/Vol]1.03 mg/dLNormal0.52-1.04The [facility] Comment on above:Performed By: #### MISAEL, CMP #### [facility] [address] [place] [address] Jose KarenEGFR-AF PRYDEINIG>60Normal>=60The [facility] CenterComment on above: Performed By: #### MISAEL, CMP #### [facility] [address] [place] [address] Jose KarenEGFR-NON AF PRFBQPPR53 mL/min/1.53h3Glkfrswoie low>=60The [facility] CenterComment on above:Performed By: #### MISAEL, CMP #### [facility] [address] [place] [address] Jose KarenGlobulin (S) [Mass/Vol]3.7 g/dLNormalThe [facility] CenterComment on above:Performed By: #### MISAEL, CMP #### [facility] [address] [place] [address] Jose KarenGlucose [Mass/Vol]114 mg/dLCritically qwff00-910Lnl [facility] CenterComment on above:Performed By: #### MISAEL, CMP #### [facility] [address] [id number] Jose KarenPotassium [Moles/Vol]3.5 mmol/LNormal3.4-5.0The [facility] Comment on above:Performed By: #### MISAEL, CMP #### [facility] [address] [address] Jose KarenProtein [Mass/Vol]8.2 g/dLNormal6.1-8.2[facility] HospitalComment on above:Performed By: #### MISAEL, CMP #### [facility] [address] [address] Jose KarenSodium [Moles/Vol]139 mmol/WZwcops717-614Ogv [facility] Comment on above:Performed By: #### MISAEL, CMP #### [facility] [address] [address] Jose KarenUrea nitrogen [Mass/Vol]15.0 mg/dLNormal7.0-17.0The [facility] CenterComment on above:Performed By: #### MISAEL, CMP #### [facility] [address] [address] Jose KarenUrea nitrogen/Creatinine [Mass ratio]14.6 mg/mgNormalThe [facility] CenterComment on above:Performed By: #### MISAEL, CMP #### [facility] [address] [place], [place] [address] Jose Gita Vital Signs Date TimeVital SignValuePerforming IhfhceipjHzeaenll92-58-4254 14:02-040Body yvdnyv847.4 cmGita HUSAIN Work Phone: [facility] HospitalFgcwtsbatx15-89-8575 14:02-040Body mass index (BMI) [Ratio]38.71 kg/n0XhbfjGita HUSAIN Work Phone: [facility] HospitalOhicbsowpc33-67-2408 14:02-040Body ycrtzi83.9 kg Gita HUSAIN Work Phone: noRipley [facility] HospitalOyzmagixdm76-14-3391 14:02-040Diastolic blood tdtopkij34 mm[Hg]Gita Hemmer PA Work Phone: [facility] SpringsFnwzmkvmgf53-72-8163 14:02-0400Heart rate83 /min Gita Hemmer PA Work Phone: [facility] SpringsEnqxhvjaym47-13-5760 14:02-0400Respiratory rate16 /minGita Hemmer PA Work Phone: [phone])[facility]-5355[facility] SpringsSlrucxpcpr99-99-9436 14:02-0972BhD9% (BldA) [Mass fraction]95 %Gita Hemmer PA Work Phone: [facility] SpringsXsijsowloi47-26-4042 14:02-0400Systolic blood fhsgtegx104 mm[Hg]Gita Hemmer PA Work Phone: [phone])[facility] [place], [place] [address]Xmhhvbynbz56-15-5832 15:57-0400Body efumfc273.13 cmArshen Hemmer ENGINE EMISSION TECHNICIAN-C Work Phone: [phone] [place], [place] [address]309-25-2025 15:57-0400 Body mass index (BMI) [Ratio]39.6 kg/f2Xiism Hemmer ENGINE EMISSION TECHNICIAN-C Work Phone: [phone])[address] [place], [place] 23[address]309-25-2025 15:57-0400 Body ytmyug65.71 kgArshen Hemmer ENGINE EMISSION TECHNICIAN-C Work Phone: [phone])[address] [place], [place] [address]309-25-2025 15:57-0400 Diastolic blood bciotzmk65 mm[Hg]Gita Hemmer ENGINE EMISSION TECHNICIAN-C Work Phone: 1([phone])[address] [place], [place] [address]309-25-2025 15:57-0400 Heart rate82 /minKaren Hemmer ENGINE EMISSION TECHNICIAN-C Work Phone: [phone] [place], [place] 23[address]309-25-2025 15:57-0400 SaO2% (BldA) [Mass fraction]93 %Gita Hemmer ENGINE EMISSION TECHNICIAN-C Work Phone: [phone] [place], [place] [address]309-25-2025 15:57-0400 Systolic blood tzataokh294 mm[Hg]Gita Hemmer ENGINE EMISSION TECHNICIAN-C Work Phone: [phone] [place], [place] [address]308-06-2025 03:42-0400 Diastolic blood rewncamx67 mm[Hg]Lenny Fuentes MD Work Phone: [facility]08-06-2025 03:42-0400Heart rate69 /Maria Elena Fuentes MD Work Phone: [facility]08-06-2025 03:42-0400Respiratory rate16 /Maria Elena Fuentes MD Work Phone: [facility]08-06-2025 03:42-7492RuV7% (BldA) [Mass fraction]98 %Lenny Fuentes MD Work Phone: [facility]08-06-2025 03:42-0400Systolic blood mm[Hg]Lenny Fuentes MD Work Phone: [facility]08-06-2025 02:17-0400Body vdljqkmohwq13.39 [degF]Lenny Fuentes MD Work Phone: [facility]08-05-2025 21:31-0400Body height 152.4 cmLenny Fuentes MD Work Phone: [facility]08-05-2025 21:31-0400Body mass index (BMI) [Ratio]36.13 kg/f0FuyyebqLenny Fuentes MD Work Phone: [facility]08-05-2025 21:31-0400Body weight 83.92 kgLenny Fuentes MD Work Phone: [facility]06-03-2025 10:29-0400Body height 151.13 cm[facility]06-[facility]-2025 10:29-0400Body mass index (BMI) [Ratio]37.7 kg/d8RstnkqycgParma [facility] Hospital06-03-2025 10:29-0400 Body lgjcbi67.18 kgPar[facility] Hospital06-03-2025 10:29-0400 Diastolic blood ogbredki49 mm[Hg][facility]06-03-2025 10:29-0400Heart rate89 /minPar[facility] General Hospital06-03-2025 10:29-3410WpD2% (BldA) [Mass fraction]95 %[facility] 02-02-2025 10:29-0400Systolic blood aulnkccs541 mm[Hg][facility]05-19-2025 09:06-0400Body xsguyi811.4 cmArshen Hemmer PA Work Phone: [phone]-[address] [place], [place] [address]Efnjfweatc56-61-2057 09:06-0400Body mass index (BMI) [Ratio]37.77 kg/b4Dcpnn Hemmer PA Work Phone: [phone]-[address] [place], [place] [address]Pigvkhqhju43-39-8088 09:06-0400Body temperature 99.7 [degF]Gita Hemmer PA Work Phone: 1(239)[facility] [place], [place] [address]Fhamsszcqb34-84-1818 09:06-0400Body dzocfj69.73 kgKaren Hemmer PA Work Phone: 1(432)[facility] [place], [place] [address]Wypuqfkfwf24-99-0768 09:06-0400Diastolic blood ivkqsubi78 mm[Hg]Gita Hemmer PA Work Phone: 1(503)[facility]-[address] [place], [place] [address]Apswhvypzz79-07-3439 09:06-0400Heart rate89 /min Gita Hemmer PA Work Phone: 1(524)[address] [place], [place] [address]05-19-2025 09:06-0400Respiratory rate18 /minArshen Hemmer PA Work Phone: 1(216)[facility]-[address] [place], [place] [address]Oblyoqmmmk02-67-5783 09:06-9946DsP5% (BldA) [Mass fraction]95 %Gita Hemmer PA Work Phone: 1(419)[facility] [place], [place] [address]Jioxglpcvx84-20-6667 09:06-0400Systolic blood tvdwunjy633 mm[Hg]Gita Hemmer PA Work Phone: 1(489)[facility] [place], [place] [address]Hrvykhihuh13-40-8123 18:28-0400Body .13 cmPar[facility]04-28-2025 18:28-0400Body mass index (BMI) [Ratio]38 kg/d8UzgmdquigParma [facility] Hospital04-28-2025 18:28-0400Body yiaekicngxi36.7 [degF][facility]04-28-2025 18:28-0400Body knvosr65.86 kgParma Community General Hospital04-28-2025 18:28-0400Diastolic blood kfcygydf35 mm[Hg][facility]04-28-2025 18:28-0400 Heart rate72 /[facility]04-28-2025 18:28-0400 Respiratory rate18 /[facility]04-28-2025 18:28-0400 SaO2% (BldA) [Mass fraction]98 %[facility]04-28-2025 18:28-0400Systolic blood dagmragc730 mm[Hg][facility] 10-28-2024 15:50-0500Body isiawp847.13 cmPar[facility] 10-28-2024 15:50-0500Body mass index (BMI) [Ratio]38.7 kg/l1ZjplgirdgParma Community [facility] Hospital02-26-2025 15:50-0500Body okhzgj52.45 kgPar[facility] Hospital02-26-2025 15:50-0500Diastolic blood azldvpxv23 mm[Hg][facility]02-26-2025 15:50-0500Heart rate97 /[facility]02-26-2025 15:50-9114FfP4% (BldA) [Mass fraction]97 %[facility]02-26-2025 15:50-0500Systolic blood fidotkmb950 mm[Hg][facility]12-27-2024 11:19-0500Body lyifly514.4 cmJaysonalfa Snow DO Work Phone: [facility] SpringsOctiekyqcn06-45-1550 11:19-0500Body mass index (BMI) [Ratio]36.72 kg/i7Ykjcwybalfa Snow DO Work Phone: [facility] SpringsSezdkiegwi59-11-4679 11:19-0500Body .28 kgLenny Snow DO Work Phone: [facility] SpringsKejjmltlyx21-38-6576 11:19-0500Diastolic blood eipybdcq78 mm[Hg]Lenny Gwendolyn DO Work Phone: [facility] SpringsGpitgumfde02-95-0667 11:19-0500Systolic blood tanhwhkj879 mm[Hg]Lenny Snow DO Work Phone: [facility] SpringsAdzhxrfzak76-51-1897 11:15-0500Body .4 cmPar[facility]12-21-2024 11:15-0500Body mass index (BMI) [Ratio]37.8 kg/e6EcoymbsdgParma Community General Hospital12-21-2024 11:15-0500Body tauapyndghj65.6 [degF][facility]12-21-2024 11:15-0500Body iputtj53.99 [facility]12-21-2024 11:15-0500Diastolic blood ebrpojoa83 mm[Hg][facility]12-21-2024 11:15-0500 Heart rate91 /[facility]12-21-2024 11:15-0500 Respiratory rate18 /[facility]12-21-2024 11:15-0500 SaO2% (BldA) [Mass fraction]96 %[facility]12-21-2024 11:15-0500Systolic blood zmbqfvyb329 mm[Hg][facility] 08-03-2024 15:47-0500Body .4 cm[facility] 08-03-2024 15:47-0500Body mass index (BMI) [Ratio]37.8 kg/r8YyykgdwuhParma Community General Hospital12-02-2024 15:47-0500Body ejtpyyplsdz56.4 [degF][facility]12-02-2024 15:47-0500Body rcosoo94.99 kgParma [facility] General Hospital12-02-2024 15:47-0500Diastolic blood qewsujrz80 mm[Hg][facility]12-02-2024 15:47-0500Heart rate81 /[facility]12-02-2024 15:47-0500Respiratory rate20 /[facility]12-02-2024 15:47-5148VdC5% (BldA) [Mass fraction]98 %[facility]12-02-2024 15:47-0500Systolic blood ifhhipep709 mm[Hg] [facility]11-14-2024 15:50-0500Body digjai190.77 cmDapancho Mendenhall II Work Phone: [facility]11-14-2024 15:50-0500 Body mass index (BMI) [Ratio]37.6 kg/c3ZvdlhlElver Mendenhall II Work Phone: [facility]11-14-2024 15:50-0500 Body vpytmf37.63 kgDapancho Mendenhall II Work Phone: [facility]11-14-2024 15:50-0500 Diastolic blood mm[Hg]Elver Mendenhall II Work Phone: [facility]11-14-2024 15:50-0500 Heart rate97 /minDray Mendenhall II Work Phone: [facility]11-14-2024 15:50-0500 SaO2% (BldA) [Mass fraction]96 %Elver Mendenhall II Work Phone: [facility]11-14-2024 15:50-0500 Systolic blood bymxibqc725 mm[Hg]Elver Mendenhall II Work Phone: [facility]10-31-2024 15:34-0400 Body lihaem247.4 cmTrever Barnard DPM Work Phone: [facility] SpringsZspexlnggk05-80-4316 15:34-0400Body mass index (BMI) [Ratio]38.28 kg/p4JjqvxpizTrever Barnard DPM Work Phone: [facility] SpringsMflbiwhklm13-86-7889 15:34-0400Body kzoxnq90.91 kgTrever Barnard DPM Work Phone: [facility] SpringsVhepsfypjj60-85-9909 15:34-0400Diastolic blood dheidjfo76 mm[Hg]Trever Barnard DPM Work Phone: [facility] SpringsYnokijeacb08-32-9222 15:34-0400Heart rate81 /min Trever Barnard DPM Work Phone: noR[facility] HospitalKtrptgkeug60-72-6735 15:34-0400Systolic blood srfbkvlu971 mm[Hg]Trever Timmy DPM Work Phone: noR[facility] HospitalWupldudcph93-74-4469 15:39-0400Body mizaty113.4 cmKaren Hemmer PA Work Phone: noR[facility] HospitalJpaornorfx83-09-2124 15:39-0400Body mass index (BMI) [Ratio]38.28 kg/k7Crwtc Hemmer PA Work Phone: [facility] HospitalFeoueukjqd15-73-3589 15:39-0400Body qnrucb57.91 kgKaren Hemmer PA Work Phone: noR[facility] HospitalPwuxqxeyvs54-46-7602 15:39-0400Diastolic blood mm[Hg]Gita Hemmer PA Work Phone: noRipley County [facility] HospitalRttlwxejex14-99-7419 15:39-0400Heart rate85 /min Gita Hemmer PA Work Phone: noRipley [facility] HospitalHcnkqilgon89-05-3609 15:39-0400Respiratory rate17 /minKaren Hemmer PA Work Phone: noR[facility] HospitalWrrfqtxmpf32-62-3400 15:39-6222UmQ7% (BldA) [Mass fraction]98 %Gita Hemmer PA Work Phone: noRiple[facility] HospitalJnzhpwyqif41-62-3979 15:39-0400Systolic blood solzplxy143 mm[Hg]Gita Hemmer PA Work Phone: [facility] HospitalZhulwvanpd23-71-6964 14:33-0400Body .4 cmTrever Baranrd DPM Work Phone: noRiple[facility] HospitalJdtycogtcp00-11-0396 14:33-0400Body mass index (BMI) [Ratio]38.28 kg/j0UnhnyzhlTrever Barnard DPM Work Phone: noRiple[facility] HospitalAjhiuqdgqj97-99-4794 14:33-0400Body .91 kgTrever Barnard DPM Work Phone: [place] [address]Oiflgaynhi84-80-0752 14:33-0400Diastolic blood degfpzow01 mm[Hg]Trever Timmy DPM Work Phone: [place] [address]Suhjmtjhmw48-90-5793 14:33-0400Heart rate75 /min Treversandro Barnard DPM Work Phone: [place] [address]Tqsbalqdxs58-97-3076 14:33-0400Respiratory rate18 /minDagotheron Barnard DPM Work Phone: [place] [address]Xbcwkmwjaw60-66-2112 14:33-0400Systolic blood nloxugfp086 mm[Hg]Trever Timmy DPM Work Phone: [place] [address]Eswvucggkx69-05-6909 14:44-0400Body cusqdj828.4 cmBrittanierick Barnard DPM Work Phone: [place] [address]Fqsoshgfix44-20-6215 14:44-0400Body mass index (BMI) [Ratio]38.28 kg/g4Ornlzufh Brown DPM Work Phone: [place] [address]Uucuhnzzcx12-79-8959 14:44-0400Body xwleig68.91 kgDagotheron Barnard DPM Work Phone: [place] [address]Abudejpwxu30-97-7872 14:44-0400Diastolic blood mm[Hg]Trever Barnard DPM Work Phone: [place] [address]Ynmpsfmlov61-48-7811 14:44-0400Heart rate75 /min Treversandro Barnard DPM Work Phone: [place] [address]Xpydoexvcj87-15-5653 14:44-0400Systolic blood cthurcew288 mm[Hg]Trever Barnard DPM Work Phone: [place] [address]Tfbezvdkmv24-46-6517 14:59-0400Body oubxhe750.4 cmKarwinter Hemmer PA Work Phone: [place] [address]Rjjtfuacbg83-42-5808 14:59-0400Body mass index (BMI) [Ratio]38.2 kg/g6Tkjge Hemmer PA Work Phone: [facility] SpringsUzcqsknpeo46-55-5569 14:59-0400Body kttanc27.72 kgGita Hemmer PA Work Phone: [phone] SpringsSdxmfqvdnd31-19-4000 14:59-0400Diastolic blood cqxqmemu05 mm[Hg]Gita Hemmer PA Work Phone: [facility] SpringsOvcwycxajb04-13-5159 14:59-0400Heart rate91 /min Gita Hemmer PA Work Phone: 1(690)[phone] [place], [place] [address]Klqofzljru79-67-5859 14:59-0400Respiratory rate16 /minGita Hemmer PA Work Phone: [facility] SpringsKguwgntbru63-88-6281 14:59-9951FxE4% (BldA) [Mass fraction]97 %Gita Hemmer PA Work Phone: [facility] SpringsFcmbxmrlfx53-27-3874 14:59-0400Systolic blood kcatoylq589 mm[Hg]Gita Hemmer PA Work Phone: 1(773)493-[address] [place], [place] [address]Lsaqhuyxhi26-16-1874 09:26-0400Body taunmr798.4 [facility] 09:26-0400Body mass index (BMI) [Ratio]38.7 kg/f1DlxdzjclnPar[facility] Hospital05-30-2024 09:26-0400Body qripml83.81 kgPar[facility]05-30-2024 09:26-0400Diastolic blood rdemxxwo14 mm[Hg][facility]05-30-2024 09:26-0400 Heart rate97 /[facility]05-30-2024 09:26-5247QhI8% (BldA) [Mass fraction]97 %[facility]05-30-2024 09:26-0400 Systolic blood mwxpdamn913 mm[Hg][facility]05-09-2024 15:16-0400Body cpneky583.4 cmPar[facility]05-09-2024 15:16-0400Body mass index (BMI) [Ratio]37.8 kg/t6ZhmlqsrssParma Community [facility] Hospital05-09-2024 15:16-0400Body jddamabdsiy63.7 [degF][facility]05-09-2024 15:16-0400Body .99 kgPar[facility] 01-09-2024 15:16-0400Diastolic blood mlcgdioy34 mm[Hg][facility]05-09-2024 15:16-0400Heart rate90 /[facility] 01-09-2024 15:16-0400Respiratory rate18 /[facility] 01-09-2024 15:16-4840QeE4% (BldA) [Mass fraction]99 %[facility]05-09-2024 15:16-0400Systolic blood cstduisg145 mm[Hg][facility]04-24-2024 17:21-0400Body .4 cmPar[facility]04-24-2024 17:21-0400Body mass index (BMI) [Ratio]30.2 kg/g5BbidjdzwlParma Community General Hospital04-24-2024 17:21-0400Body istupemxrsx80.3 [degF][facility]04-24-2024 17:21-0400Body zhacyb72.3 kgPar[facility] Hospital04-24-2024 17:21-0400Heart rate96 /[facility]04-24-2024 17:21-0400Respiratory rate18 /[facility]04-24-2024 17:21-6713VhS2% (BldA) [Mass fraction]96 %[facility]02-02-2024 08:09-0500Body mass index (BMI) [Ratio]37.07 kg/v6RomtyGita HUSAIN Work Phone: [facility] HospitalYoytejycdk92-75-6619 08:09-0500Body cefius02.09 kgGita Garcia PA Work Phone: [facility] HospitalDamrozxtej26-68-4136 08:09-0500Diastolic blood swtdtics22 mm[Hg]Gita HUSAIN Work Phone: [facility] HospitalHkvamycthn19-84-1783 08:09-0500Heart rate94 /min Gita Hemmer PA Work Phone: noCooler PlanetXbqwayukfz56-10-0616 08:09-0500Respiratory rate14 /minGita Reedmer PA Work Phone: NOCooler PlanetXppgbwtqvl66-48-5786 08:09-4207KnZ1% (BldA) [Mass fraction]95 %Gita Garcia PA Work Phone: noCooler PlanetBaewjrmzgg54-03-1184 08:09-0500Systolic blood xlhukbkr785 mm[Hg]Gita Garcia PA Work Phone: noCooler PlanetBeqrnurujs50-00-7666 08:30-0500Body .4 cmDastephan Waller Other [employer] Other 08-01-2023 11:15-0400Body owamsc863.4 cmJane Waller Other [employer] Other 08-01-2023 11:15-0400Body mass index (BMI) [Ratio] 36.71 kg/e7ErcgrJane Waller Other [employer] Other 08-01-2023 11:15-0400Body sqxveq07.28 kgJane Waller Other [employer] Other 08-01-2023 11:15-0400Diastolic blood mphqarmf27 mm[Hg] Jane Waller Other [employer] Other 08-01-2023 11:15-2606MjB6% (BldA) [Mass fraction]98 % Jane Waller Other [employer] Other 08-01-2023 11:15-0400Systolic blood pusxjebl203 mm[Hg] Jane Waller Other [employer] Other 2023 08:45-0400Body renivz501.4 cmDastephan Sridhar Other [employer] Other 2023 08:45-0400Diastolic blood iwigfgkn57 mm[Hg] Jane Sridhar Other [employer] Other 2023 08:45-3944PhS8% (BldA) [Mass fraction]96 % Jane Sridhar Other [employer] Other 2023 08:45-0400Systolic blood nnublqgm751 mm[Hg] Jane Sridhar Other [employer] Other 07-18-2022 10:00-0400Body wniyvs483.4 cmHeidi Poppy Other [employer] Other 07-18-2022 10:00-0400Body mass index (BMI) [Ratio] 35.74 kg/t2Rdlwr Poppy Other [employer] Other 07-18-2022 10:00-0400Body iwxhlfmmqhr60.8 [degF]Ciera Poppy Other [employer] Other 07-18-2022 10:00-0400Body qizasu44.01 kgHeidi Poppy Other [employer] Other 07-18-2022 10:00-0400Diastolic blood wuwxuzqv89 mm[Hg] Ciera Poppy Other [employer] Other 07-18-2022 10:00-0400Respiratory rate20 /minHeidi Poppy Other [employer] Other 07-18-2022 10:00-4915UrQ9% (BldA) [Mass fraction]98 % Cieramaciel Mcwilliams Other [employer] Other 07-18-2022 10:00-0400Systolic blood ourndufv655 mm[Hg] Ciera Mcwilliams Other [employer] Other 06-23-2022 11:00-0400Body gawtpl996.4 cmDastephan Waller Other [employer] Other 06-23-2022 11:00-0400Body mass index (BMI) [Ratio] 35.93 kg/d5IokpiJane Waller Other [employer] Other 06-23-2022 11:00-0400Body oxdymomxpxu17.7 [degF]Jane Waller Other [employer] Other 06-23-2022 11:00-0400Body ptlyum83.46 kgDastephan Waller Other [employer] Other 06-23-2022 11:00-0400Diastolic blood ppelsgwv63 mm[Hg] Jane Waller Other [employer] Other 06-23-2022 11:00-0975YwZ7% (BldA) [Mass fraction]98 % Jane Waller Other [employer] Other 06-23-2022 11:00-0400Systolic blood mm[Hg] Jane Waller Other [employer] Other 12-21-2021 16:30-0500Body rmwxyp363.4 cmDastephan Sridhar Other [employer] Other 12-21-2021 16:30-0500Body mass index (BMI) [Ratio]37.2 kg/o5Jgwrv Sridhar Other [employer] Other 12-21-2021 16:30-0500Body jmfdromlsfi48.5 [degF]Jane Waller Other [employer] Other 12-21-2021 16:30-0500Body dbkhek35.41 kgAmishstephan Sridhar Other [employer] Other 12-21-2021 16:30-0500Diastolic blood rwmbzako68 mm[Hg] Jane Waller Other [employer] Other 12-21-2021 16:30-4117KkT8% (BldA) [Mass fraction]97 % Jane Waller Other [employer] Other 12-21-2021 16:30-0500Systolic blood ktvjiwue634 mm[Hg] Jane Waller Other [employer] Other 12-18-2021 10:20-0500Body xwcbus391.4 cmStepkevin Oliver Other [employer] Other 12-18-2021 10:20-0500Body mass index (BMI) [Ratio] 36.52 kg/o3Kfqqjitknmelinda Oliver Other [employer] Other 12-18-2021 10:20-0500Body yvxzlakepdc77.9 [degF] Tracy Benito Other [employer] Other 12-18-2021 10:20-0500Body cvesca48.82 kgStmelinda Oliver Other [employer] Other 12-18-2021 10:20-0500Diastolic blood mwdefosb05 mm[Hg] Tracy Mcqueenault Other [employer] Other 12-18-2021 10:20-0500Respiratory rate18 /minSannmarie Mcqueenault Other [facility] [employer] Other 12-18-2021 10:20-7375SxT9% (BldA) [Mass fraction]100 % rTacy Mcqueenault Other [facility] [employer] Other 12-18-2021 10:20-0500Systolic blood kzdqirxj683 mm[Hg] Tracy Mcqueenault Other [facility] [employer] Other 09-30-2021 09:30-0400Body kaslro482.4 cmJane Waller Other [facility] [employer] Other Encounters Encounter DateEncounter TypeCare ProviderFacilityStart: 06-27-2025 End: 50-46-4565autpxeehfrQJJJEX [facility]2025 End: 30-57-6607oiewrpjhrlDGTKIC [facility]tart: 00-64-6417cjhnyurlibSAIYHH [facility]: 06-19-2025 End: 37-05-0240WcetpxOnrvg M Hemmer PA Work Phone: NONJ [facility] Rehabilitation CenternceComment on above:Obstructive sleep apnea; Class 2 severe obesity due to excess calories with serious comorbidity and body mass index (BMI) of38.0 to 38.9 in adultStart: 2025 End: 04-35-2499Buepfrbrittany HUSAIN Work Phone: noms [facility] Mendez MedinceStart: 2025 End: 94-66-0023Verndnjulee HUSAIN Work Phone: noms [facility] Mendez MedinceStart: 2025 End: 11-56-7411Bsnibqp encounter statusGita HUSAIN Work Phone: [facility] Work Phone: Start: 2025 End: 54-20-8529Rlbdikez preventive med est patient 40-64yrsKjessica HUSAIN Work Phone: noms K[facility] Mendez MedinceComment on above:Wellness examination (Primary Dx); Screening for malignant neoplasm of colon; Impaired fasting glucose; Iron deficiency; Thrombocythemia; Anemia, unspecified type; Elevated ALT measurement; History of gestational diabetes; Hypokalemia; Mixed hyperlipidemia; Obstructive sleep apnea; Class 2 severe obesity due to excess calories with serious comorbidity and body mass index (BMI) of38.0 to 38.9 in adult; Nausea; Mood swings; Weight gain; Irregular mensesStart: 2025 End: 06-81-8329EzxsjuHofbd M Hemmer PA Work Phone: noms [facility] Mendez MedinceComment on above:Obstructive sleep apnea; Class 2 severe obesity due to excess calories with serious comorbidity and body mass index (BMI) of38.0 to 38.9 in adultStart: 05-27-2025 End: 65-34-5819jmemvosmrcKptoa Hemmer NP-C Work Phone: [facility] Work Phone: Start: 05-27-2025 End: 07-88-0694Sxzkcik encounter [facility]i [facility] Work Phone: Start: 05-25-2025 End: 84-42-7498ylbfoimuqxGMUBJL [facility] Hospitaltart: 05-15-2025 End: 31-34-5226ViceqiPmbqo M Hemmer PA Work Phone: noMS Kvng Family MedinceComment on above:Tachycardia Start: 04-07-2025 End: 10-49-7337Hfuszzauf department patient visitLenny Fuentes MD Work Phone: [facility] - [facility] HospitalComment on above:Left leg cellulitis (Primary Dx)Start: 03-31-2025 ambulatoryGREGORY A [facility]: 03-16-2025 ambulatoryNICOLE [facility]: 02-10-2025 End: 06-94-3563panxkkpgheEGRAXWF A [facility]: 02-02-2025 End: 19-97-8648uqxjtwbvkaMwktisrghHolzer Health System Work Phone: Start: 02-02-2025 End: 61-31-0996Dwxjopd encounter [facility] Work Phone: Start: 01-18-2025 End: 74-65-6861Ledpjw Alex HUSAIN Work Phone: [facility] CI FMStart: 01-18-2025 End: 42-08-6968Jaywib Alex HUSAIN Work Phone: [facility] CI FMStart: 01-18-2025 End: 74-04-6084Uwsqwp outpatient visit 15 Boyd HUSAIN Work Phone: [facility] CI FMComment on above:Left acute otitis media (Primary Dx); Hypokalemia; VertigoStart: 01-18-2025 End: 98-45-8840exgvthplosMPQBE M HEMMERNot AvailableStart: 01-05-2025 End: 10-43-3788Bdebkajmp encounterKarwinter M Hemmer PA Work Phone: noms CI FMStart: 12-28-2024 End: 89-00-9735psoekujsyeHwyvpwesbHolzer Health System Work Phone: Start: 12-28-2024 End: 61-83-6813Sjhpnld encounter procedureSudhir Physician [facility] Work Phone: Start: 91-60-7052chdsdsioveBAGDZMHGeorgetown Behavioral Hospitaltart: 11-30-2024 End: 77-65-3985fmxlsdntyqYMXNFNOGeorgetown Behavioral Hospitaltart: 10-28-2024 End: 61-82-0182ghiderajxrIjvkjaqtrHolzer Health System Work Phone: Start: 10-28-2024 End: 96-33-7496Jkspfvn encounter procedurePeg Physician [facility] Work Phone: Start: 10-27-2024 End: 06-11-4935dvfjhpfzpvDORKV M HEMMERNot AvailableStart: 08-28-2024 End: 00-10-2344Lggsis flowsScott Snow DO Work Phone: noms [facility] OBStart: 08-28-2024 End: 74-33-4051Ehhnxu flowsScott Snow DO Work Phone: noms [facility] OBStart: 08-28-2024 End: 60-74-9301Bpstlhj encounter statusLenny Snow DO Work Phone: noms HealthcareStart: 08-28-2024 End: 87-41-1213Hsmaynca preventive med est patient 40-64yrsWjose Snow DO Work Phone: noms [facility] OBComment on above:Encounter for gynecological examination without abnormal finding (Primary Dx); Screening for malignant neoplasm of cervix; Breast cancer screening by mammogram; Chronic sinusitis, unspecified location; Encounter for gynecological examination (general) (routine) without abnormal findingsStart: 08-28-2024 End: 75-56-9961qjzbbtmimzKAWPCYG D BRUNERNot AvailableStart: 08-22-2024 End: 58-18-4376Vupfjhd encounter procedureFormerly [facility] Physician [facility] K[facility] Work Phone: Start: 08-03-2024 End: 80-59-2902Tzleqce encounter procedureFormerly [facility] Physician [facility] Work Phone: Start: 07-25-2024 End: 37-82-4486Ypzhfufrs Result EncounterGeneric External Data ProviderNOMS External Department UnsolicitedStart: 07-25-2024 End: 69-60-7651Sfgjrhrcx Result EncounterGeneric External Data ProviderNOMS External Department UnsolicitedStart: 07-16-2024 End: 74-42-3139odomhkmzjqSemunh Mendenhall II Work Phone: [facility] Work Phone: Start: 07-16-2024 End: 40-29-1906Njdjgjp encounter procedureDahocking [facility] hospital Mendenhall II Work Phone: [facility] Work Phone: Start: 07-13-2024 End: 42-05-4051Hywdlkobp Fatimah HUSAIN Work Phone: noms CI FMStart: 07-05-2024 End: 77-90-0751Ptlqiujkn Result EncounterGeneric External Data ProviderNOMS External Department UnsolicitedStart: 07-05-2024 End: 10-92-6039Rdlmgeszx Result EncounterGeneric External Data ProviderNOMS External Department UnsolicitedStart: 07-02-2024 End: 54-53-4524Opzbyl outpatient visit 15 minutesTrever Barnard DPM Work Phone: noms CI PODIATRYComment on above:Peroneal tendinitis, left (Primary Dx); Peroneal tendinitis, right; Venous insufficiencyStart: 07-02-2024 End: 20-50-7295nvuhyzhfeaBAZXWPBO A BROWNNot AvailableStart: 07-02-2024 End: 51-96-9182Owuvui flowsheetTrever Barnard DPM Work Phone: [facility] CI PODIATRYStart: 07-02-2024 End: 87-52-2002Soxycu Peña Barnard DPM Work Phone: noMS CI PODIATRYStart: 07-02-2024 End: 35-41-2919Phttmrcdh Result EncounterGita HUSAIN Work Phone: [facility] External Department UnsolicitedStart: 06-13-2024 End: 47-55-0281Jcbfcunau encounterGita HUSAIN Work Phone: [facility] CI FMStart: 06-03-2024 End: 98-86-8159Ebimoe outpatient visit 25 minutesGita HUSAIN Work Phone: [facility] CI FMComment on above:Ankle edema (Primary Dx); Hypokalemia; Peroneal tendinitis of left lower extremity; Peroneal tendinitis of right lower extremity; Obesity (BMI 30-39.9); Abnormal electrocardiogram; Family history of heart disease; Venous insufficiencyStart: 05-31-2024 End: 73-83-3039Apf-patient / Non-visitDapancho Mendenhall Work Phone: [facility] Physician [facility] Work Phone: Start: 05-30-2024 End: 20-04-8565Vimfwvmmb Rosa Elena Villareal NP Work Phone: noMS CI FMStart: 59-59-5051Aat-patient / Non-visit Elver Mendenhall II Work Phone: [facility] Work Phone: Start: 05-28-2024 End: 79-46-4071Buebin outpatient visit 15 minutesTrever Barnard DPM Work Phone: noms CI PODIATRYComment on above:Peroneal tendinitis, left (Primary Dx); Peroneal tendinitis, right; Venous insufficiencyStart: 05-27-2024 End: 42-45-1667Gmrgzbmor encounterTracy Villareal ENGINE EMISSION TECHNICIAN Work Phone: [facility] CI FMComment on above:OA call ([employer] called with a critical lab. Potassium is 2.6. Call placed to [place] Villareal)Start: 05-20-2024 End: 86-34-2888ckihaqvyisSC Elver Mendenhall Work Phone: [facility] Work Phone: Start: 05-20-2024 End: 17-21-5912Uvhfxztt ReferredII Elver Mendenhall Work Phone: [facility] [place] Work Phone: Start: 05-19-2024 End: 19-96-1019Ianqnwo encounter procedureII Elver Mendenhall Work Phone: [facility] Work Phone: Start: 05-19-2024 End: 22-82-9152ychonudjwcDM Daniel Berry Work Phone: [facility] Work Phone: Start: 05-14-2024 End: 46-58-2352Xgsezq outpatient new 30 minutesTrever Barnard DPM Work Phone: noms CI PODIATRYComment on above:Peroneal tendinitis, left (Primary Dx); Peroneal tendinitis, right; Venous insufficiencyStart: 05-13-2024 End: 38-81-4039Iwaprt outpatient visit 15 minutesGita HUSAIN Work Phone: [facility] CI FMComment on above:Bilateral lower leg cellulitis (Primary Dx); Encounter for screening mammogram for malignant neoplasm of breast; Ankle edemaStart: 05-13-2024 End: 67-36-1445Pqtbek flowsheetGita HUSAIN Work Phone: [facility] CI FMStart: 05-13-2024 End: 65-43-1228Axpvxv flowsRandolph HUSAIN Work Phone: [facility] CI FMStart: 01-30-2024 End: 84-77-7497kkhczmrkggIeqzzvmyfHolzer Health System Work Phone: Start: 01-30-2024 End: 23-34-1346Kjiufow encounter procedureFormerly [facility] Physician Group-[facility] Work Phone: Start: 01-09-2024 End: 23-85-1296wbdvqiaonuCnflgelhyOhioHealth Shelby Hospital Work Phone: Start: 01-09-2024 End: 39-21-8871Ykzfhmn encounter procedureFormerly [facility] Physician [facility] Work Phone: Start: 12-25-2023 End: 96-98-6689uzotprprxyOiezpbbfeOhioHealth Shelby Hospital Work Phone: Start: 12-25-2023 End: 74-35-2216Rpbztbo encounter procedureFormerly [facility] Physician [facility] Work Phone: Start: 10-14-2023 End: 34-56-1022Vyhddp outpatient visit 15 minutesNatalie A Melinda DIRECTOR PUBLIC-[employer] REMOVAL SPECIALIST Work Phone: noms SWS DERMComment on above:Nevus; Perioral dermatitisStart: 10-10-2023 End: 85-55-8583bakmrbeexyVmfuv Morris Other [facility] [employer] Other Start: 97-82-1573Ezxpzzezf encounterDavisamreen Waller [facility] SouthStart: 56-25-9803Uqybh Gary HUSAIN Work Phone: [facility] CI FMStart: 10-04-2023 End: 70-42-3344Wixljbu encounter Yue HUSAIN Work Phone: [facility] Work Phone: Start: 10-04-2023 End: 41-09-5892Nsvpdhup preventive med est patient 40-64yrJosephine Imedla Radha HUSAIN Work Phone: noms FMComment on above:Wellness examination (Primary Dx); Excessive daytime sleepiness; Obstructive sleep apnea; Tachycardia; Abnormal electrocardiogram; Gastroesophageal reflux disease without esophagitis; Female infertility; Ankle edema; Impaired fasting glucose; Iron deficiency; Obesity (BMI 30-39.9); Thrombocythemia; Anemia, unspecified type; Elevated ALT measurement; History of gestational diabetes; History of tibial fracture; Mixed hyperlipidemia (CMS/HCC); Obsessive-compulsive disorder, unspecified type (CMS/HCC); Other allergic rhinitis; Bilateral leg pain; Weight gainStart: 09-05-2023 End: 18-96-7129ztkpknabqxTgtfc Sridhar Other [facility] [employer] Other Start: 19-55-1423Hnfczyotm encounterDavid [facility] SouthStart: 78-12-5101Fsvmbj outpatient visit 25 minutesDavid [facility] Medical OutPtStart: 08-01-2023 End: 09-35-3839Rfwkejk encounter procedureII Elver Mendenhall Work Phone: [facility] Work Phone: Start: 08-01-2023 End: 22-13-0412kwvcbhqfboUQ Elver Mendenhall Work Phone: [facility] [employer] Other Start: 07-30-2023 End: 08-91-4511cppbrxxwcjUfjsl Poppy Other [employer] Other Start: 13-03-7919Qgopck outpatient visit 25 minutes Ciera GastFPG Pulmonary DiseaseStart: 07-16-2023 End: 46-59-4995zzlaqfclpnHddst Poppy Other noSanera [employer] Other Start: 67-72-2419Ksabqpfoe encounterHeidi GastFPG Pulmonary DiseaseStart: 06-13-2023 End: 36-59-5185tkkckohwueGjcpy Morris Other [facility] [employer] Other Start: 86-36-2573Tosqynqyt encounterDavid [facility] CenterStart: 06-03-2023 End: 96-56-8280yebzgzumlwBjuvl Morris Other [facility] [employer] Other Start: 55-34-4143Pbanrvkkh encounterDavisamreen [facility] Centerart: 05-72-9235Fubjhn outpatient visit 25 minutesDavisamreen [facility]onStart: 04-02-2023 End: 32-56-3955kmwzijpmrcJN Elver Mendenhall Work Phone: [employer] [facility] [employer] Other Start: 04-02-2023 End: 45-99-2183Llfzxse encounter procedureII Elver Mendenhall Work Phone: [facility] Work Phone: Start: 03-11-2023 End: 20-89-3268ndhintykftMxveh Chaban Other [facility] [employer] Other Start: 62-19-8774Sgqcnmnfj encounterKamal ChabanFPG Pulmonary DiseaseStart: 58-66-3013Ddevph outpatient visit 25 minutesDastephan [facility] CenterStart: 02-06-2023 End: 98-37-6388awkyzpfldhSA Elver Mendenhall Work Phone: [employer] [facility] [employer] Other Start: 02-06-2023 End: 02-36-3221Wrkrfmj encounter procedureII Elver Mendenhall Work Phone: [facility] Work Phone: Start: 11-22-2022 End: 05-97-8236yyxbeafrrzLbkow Morris Other noSanera [employer] Other Start: 02-82-5387Fekopxixp encounterDastephan Sridhar [facility] CenterStart: 08-28-2022 End: 31-50-8142zjpxzakicyGhstb Morris Other [facility] [employer] Other Start: 55-53-2319Wbefigteu encounterDastephan [facility] CenterStart: 07-03-2022 End: 40-06-0333Xqcnxjh encounter procedureII Elver Abdirashid Work Phone: [facility]-Sleep LabStart: 07-03-2022 End: 91-64-8171gghjeuqlaeFU Elver Mendenhall Work Phone: [facility] Work Phone: Start: 08-73-2422Wdgouc outpatient visit 25 minutes Jane [facility] CenterStart: 05-24-2022 End: 25-60-5518qjutynmfluKcnay Morris Other [facility] [employer] Other Start: 89-70-2035Aidywknrv encounterDastephan [facility] [facility] End: 52-31-7876oivjwwqkzyGoakm Poppy Other [facility] [employer] Other Start: 26-25-8454Wcbsuh outpatient visit 25 minutes Ciera GastFPG Pulmonary DiseaseStart: 02-23-2022 End: 45-73-1740oeoljufnszDtlaq Morris Other [facility] [employer] Other Start: 37-18-5995Ughtcawse encounterDastephan Sridhar [facility]: [facility]-22[facility]2022 End: 33-90-5505choaprtwmtLzdeh Morris Other [employer] Other Start: 14-82-1980Eptjaz outpatient visit 25 minutes Jane WallerOhiohealth Pickerington [facility] SouthStart: 11-24-2021 End: 74-15-2824qtufrnejkwFwhfn Morris Other [employer] Other Start: 63-42-5746Glbbsjfsx encounterDastephan Waller [facility] SouthStart: 09-08-2021 End: 08-28-0547sbaoniijclWbnzy Morris Other [employer] Other Start: 91-58-6535Jmszysmxd encounterHeidi GastFPG Pulmonary DiseaseStart: 08-22-2021 End: 71-99-4034vgqazybogaVmlnn Morris Other [employer] Other Start: 74-10-0077Oemjpt outpatient visit 25 minutes Jane WallerOhiohealth Pickerington [facility] SouthStart: 08-19-2021 End: 73-31-7386hexocjvctoEneogwvqn Breault Other no[employer]era [employer] Other Start: 18-25-9419Fvxmxy outpatient visit 15 minutes Tracy OliverFPNancy Urgent Care ClydeStart: 08-02-2021 End: 50-51-1112pcnoomtawxDgcbk Morris Other [employer] Other Start: 27-47-8871Ejvkensuv encounterDastephan [facility] SouthStart: 90-34-4025Byyguzhjs encounterDastephan [facility] SouthStart: 72-23-9778Bfxeka outpatient visit 25 minutesDastephan [facility] Centerart: 07-07-2019 End: 65-47-7355Etfmpufkok and management of inpatientDANIYESI MENDENHALLFacility:[facility] Start: 07-06-2019 End: 39-48-3705Pecbumh encounter procedureDANIYESI MENDENHALLFacility:R2Rxzba: 06-08-2019 End: 30-13-0812Nylcmpi encounter procedureGITA Imelda RADHAFacility:N6Eftxy: 05-23-2019 End: 15-95-5266Mfvbwbf encounter procedureDANIEL BERRYFacility:G9Ogqdt: 12-27-2018 End: 91-72-7234Xcnwqsc encounter procedureDANIEL BERRYFacility:M8Asvnr: 37-83-9781Cfbompu encounterPROVIDER UNKNOWNFacility:1532Start: 42-29-1402Aewwykv encounterFacility:9507 Procedures DateProcedureProcedure DetailPerforming ClinicianStart: 63-18-1570Hsobntacyd glycosylated o2zKhxeiGita HUSAIN Work Phone: Start: 63-44-8905UaetwdpxktfLisah Hemmer PA Work Phone: Start: 03-30-9654EG LUMBAR SPINE WO CONGeneric External Data ProviderStart: 32-37-5650EF LUMBAR SPINE MIN 4VGeneric External Data ProviderStart: 73-14-4559SB ECHO DOPPLER COMPLETEGita HUSAIN Work Phone: Start: 72-95-5017Ihokoqdodca observation [Identifier] in Cervix by Cyto stainGita HUSAIN Work Phone: Start: 83-62-2749HiyytpqcsyuCkilq Hemmer PA Work Phone: Start: 50-74-7970HEJTHG RIGHT KNEE JOINT, OPEN APPROACHNABIL EBRAHEIMStart: 81-37-3010UYJCIJTWEO RIGHT TIBIA WITH INT FIX, OPEN APPROACHNABIL EBRAHEIMStart: 35-25-9886SNQOCVLEQA RIGHT TIBIA WITH SYNTH SUB, OPEN APPROACHNABIL EBRAHEIMStart: 77-30-1110Hgvfpiah screenDANIEL BERRYComment on above:Performed By: #### [id number] #### [facility] [address] [place] [address], USAStart: 12-27-2018 End: 90-07-9072Krbiajlmiqc examination of blood, cultureDANIEL BERRYComment on above:Performed By: #### [id number] #### [facility] [address] [address] Jose PelayoPerformed By: #### LIPA, CMP #### [facility] [address] [id number] Jose Pelayo Plan of Treatment DateCare ActivityDetailAuthorStart: 42-07-3011Etgoklfgx for malignant neoplasm of cervixNOMS HealthcareStart: 35-48-5625Wcywbjttp for malignant neoplasm of cervixNOMS HealthcareStart: 53-27-0888Eajserlpd for malignant neoplasm of cervix Pap SmearNOMS HealthcareStart: 70-04-0389Jzuzdzmde vaccinationInfluenza Vaccine (#1)[facility] HealthcareComment on above:Postponed from 05/03/2025 (Patient Refused) Start: 09-24-0452Rrdvfphth for malignant neoplasm of breastMammogramNOMS HealthcareStart: 09-03-2025 End: 81-26-8505Apmqycd encounter procedureNOMS SWS OBStart: 07-05-2025 End: 53-59-2509Isrilmp encounter syhqumicw50/03/2025 2:00 PM EST Office Visit DURAN Neves [address] [facility] [address] [place] [address] Gita Garcia PA [address] [facility] [address] [place] [address] DURAN Mendez [facility] HealthnceStart: 2025 End: 49-61-4756Ngyodqetrgw colorectal cancer DNA and occult blood screening [Presence] in StoolCologuard colon cancer screening Lab Routine Screening for malignant neoplasm of colon Expected: 2025 (Approximate), Expires: 2026[facility] Work Phone: Comment on above:Expected: 2025 (Approximate), Expires: 2026Start: 2025 End: 09-07-4198Xroeodw encounter tnpzjoeoo94/06/2025 2:00 PM EDT Office Visit [facility] [place] [facility] [address] [place] [address] [place] [address] Gita Garcia PA [address] [place] [address] [place] [address] ArrivedNOMS [place] Mendez MedinceComment on above:ArrivedStart: 68-47-0289Evncwozvz for malignant neoplasm of colon Colorectal Cancer ScreeningNOMS HealthcareComment on above:Postponed from 1976 (Patient Refused)Start: 00-09-0306KHVVO-19 Vaccine ( season)COVID-19 Vaccine ( season)[facility] HealthcareStart: 05-03-2025 Influenza vaccinationNOMS HealthcareStart: 02-08-2025 End: 96-19-0459Yhnaqfi encounter nuseektad53/09/2025 8:30 AM EDT Office Visit [facility] DER[facility] [address] [place] [address] [place] [address] Lubna Lawrence, DIRECTOR PUBLIC-JUNK REMOVAL SPECIALIST [address] [place] [place] [address] [facility] SWS DERMStart: 01-18-2025 End: 89-33-4856Ppbndai encounter yhbwdsxhx25/19/2025 9:00 AM EDT Office Visit [facility] [address] [place] [address] [place] [address] Gita Garcia PA [address] [place] [address] [place] [address] ArrivedNOMS CI FMComment on above:ArrivedStart: 10-27-2024 End: 96-40-4580Efdtxawoasah / ancillary services ibogpfenns66/25/2025 4:00 PM EST Ancillary Procedure [facility] [place] [address] [place] [address] [facility]AG[facility] SANDUSKYStart: 08-28-2024 End: 33-94-6567Qguujna encounter procedureNOMS [facility] OBComment on above:Arrived Start: 07-02-2024 End: 54-30-2510Nmhmrsu encounter fwdyhdjux45/31/2024 4:20 PM EDT Office Visit [facility] [address] [place] [place] [address] Trever Barnard, RAMO [address] [address] Peroneal tendinitis, left (Primary Dx); Peroneal tendinitis, right; Venous insufficiencyNOMS CI PODIATRYComment on above:Peroneal tendinitis, left (Primary Dx); Peroneal tendinitis, right; Venous insufficiencyStart: 06-30-2024 End: 94-97-3153Imwbzwq encounter dowkqyash54/29/2024 9:30 AM EDT Office Visit [facility] KAYLA OB [address] [place] [place] [address] Lenny Snow DO [address] [place] [place] [address] [facility] SWS OBStart: 06-25-2024 End: 44-49-5433Ztvloau encounter hrpubujmc06/24/2024 2:40 PM EDT Office Visit [facility] [address] [facility] [address] [place] [address] Trever Barnard DPM [address] [address] [facility] CI PODIATRYStart: 06-10-2024 End: 80-39-9329Stcom metabolic 1998 panel - Serum or PlasmaBasic metabolic panel Lab Routine Hypokalemia Expected: 06/10/2024 (Approximate), Expires: 06/03/2025 [facility] Work Phone: Comment on above:Expected: 06/10/2024 (Approximate), Expires: 06/03/2025Start: 06-03-2024 End: 46-39-9529Moomwwg encounter mfgjfgste84/02/2024 4:00 PM EDT Office Visit [facility] [address] [place] [address] [place] [address] Gita Garcia PA [address] [place] [address] [place] [address] [facility] CI FMStart: 06-03-2024 End: 32-30-9568NH Heart TransthoracicTransthoracic Echo (TTE) Complete Echocardiography Routine Ankle edema Abnormal electrocardiogram Expected: 06/03/2024 (Approximate), Expires: 06/03/2026NOMS HealthcareComment on above: Expected: 06/03/2024 (Approximate), Expires: 06/03/2026Start: 05-29-2024 End: 35-28-2581Xnffrvydp [Moles/volume] in Serum or PlasmaPotassium Lab Routine Hypokalemia Expected: 05/29/2024, Expires: 05/27/2025[facility] Work Phone: Comment on above:Expected: 05/29/2024, Expires: 05/27/2025Start: 05-28-2024 End: 83-73-9291Yknchtc encounter mmyqhlppt85/26/2024 2:40 PM EDT Office Visit [facility] [address] [place] [place] [address] Trever Barnard, GERBERM [address] [address] [facility] CI PODIATRYStart: 05-14-2024 End: 03-92-0816Xuymnfi encounter umnzhnyrb76/12/2024 4:20 PM EDT Office Visit [facility] [address] [place] [place] [address] Trever Barnard, DPM [address] [address] [facility] CI PODIATRYStart: 05-13-2024 End: 46-00-2187Oezdvgc encounter rwrtwsqji27/11/2024 3:00 PM EDT Office Visit [facility] [address] [place] [address] [place] [address] Gita Garcia PA [address] [place] [address] [place] [address] ArrivedNOMS CI FMComment on above:ArrivedStart: 05-13-2024 End: 86-12-0377XXF Breast - bilateral screeningBilateral screening mammogram with tomosynthesis Imaging Routine Encounter for screening mammogram for malignant neoplasm of breast Expected: 05/13/2024, Expires: 07/13/2025[facility] Work Phone: Comment on above:Expected: 05/13/2024, Expires: 07/13/2025Start: 09-42-2433Ygsgtfahi vaccinationInfluenza Vaccine (#1)[facility] HealthcareStart: 04-09-2024 End: 17-42-7960Dxrcoqs encounter vhypjjwvk38/08/2024 9:35 AM EDT Office Visit [facility] [address] [place] [address] Lubna Lawrence APRN-JUNK REMOVAL SPECIALIST [address] [place] [address] [place], [place] [phone] [facility] DERMStart: 03-31-2024 End: 42-66-8069Wqsakiv encounter gkrzdewbl59/30/2024 9:45 AM EDT Office Visit [facility] OB [address] [place] [address] Lenny Snow, DO [address] [place] [place] [address] [facility] OBStart: 11-15-2023 End: 49-76-9764Ggmpmer encounter htkupmowb90/15/2024 8:30 AM EDT Office Visit [facility] [address] [place] [place] [address] Gita Garcia PA [address] [place] [address] [place] [address] [facility] CI FMStart: 10-14-2023 End: 36-63-3736Rbitfbz encounter kskbstlre57/12/2024 8:30 AM EST Office Visit [facility] [address] [place] [address] Lubna Lawrence APRN-JUNK REMOVAL SPECIALIST [address] [place] [place] [address] [facility] SWS DERMStart: 10-04-2023 End: 55-87-9846PXK W Auto Differential panel - BloodCBC and differential Lab Routine Wellness examination Iron deficiency Thrombocythemia Anemia, unspecified type Expected: 10/04/2023 (Approximate), Expires: 10/04/2024[facility] Work Phone: Comment on above:Expected: 10/04/2023 (Approximate), Expires: 10/04/2024Start: 10-04-2023 End: 23-45-7202Cmviaijguhtrf metabolic 2000 panel - Serum or PlasmaComprehensive metabolic panel Lab Routine Wellness examination Ankle edema Elevated ALT measurementMixed hyperlipidemia (CMS/HCC) Expected: 10/04/2023 (Approximate), Expires: 10/04/2024[facility] HealthcareComment on above:Expected: 10/04/2023 (Approximate), Expires: 10/04/2024Start: 10-04-2023 End: 01-40-3957Xwqxncnzeg A1c measurementHemoglobin A1c Lab Routine Wellness examination Impaired fasting glucose History of gestational diabetes Expected: 10/04/2023 (Approximate), Expires: 10/04/2024[facility] HealthcareComment on above: Expected: 10/04/2023 (Approximate), Expires: 10/04/2024Start: 10-04-2023 End: 25-48-7186Huxj + transferrin + TIBCIron + transferrin + TIBC Lab Routine Wellness examination Iron deficiency Anemia, unspecified typeExpected: 10/04/2023 (Approximate), Expires: 10/04/2024[facility] HealthcareComment on above: Expected: 10/04/2023 (Approximate), Expires: 10/04/2024Start: 10-04-2023 End: 93-84-6165Nrxdg 1996 panel - Serum or PlasmaLipid panel Lab Routine Wellness examination Elevated ALT measurement Mixed hyperlipidemia (CMS/HCC) Expected: 10/04/2023 (Approximate), Expires: 10/04/2024[facility] HealthcareComment on above:Expected: 10/04/2023 (Approximate), Expires: 10/04/2024Start: 10-04-2023 End: 26-74-2001LXE W/REFLEX TO FT4TSH W/REFLEX TO FT4 Lab Routine Wellness examination Tachycardia Weight gain Expected: 10/04/2023 (Approximate), Expires: 10/04/2024[facility] HealthcareComment on above:Expected: 10/04/2023 (Approximate), Expires: 10/04/2024Start: 10-04-2023 End: 04-53-0390Ytazzzh encounter dyxacjtbh94/02/2024 8:00 AM EST Office Visit [facility] [address] [facility] [address] [place] [address] Gita Garcia PA [address] [facility] [address] [place] [address] N[facility]S FMStart: 36-19-8379Ilmkovmch vaccination Influenza Vaccine (#1)NOM HealthcareStart: 80-83-5568Shaxtghlr for malignant neoplasm of breastMammogramNOMS HealthcareStart: 27-91-7878TAvM/Tdap/Td Vaccines (2 - Td or Tdap)DTaP/Tdap/Td Vaccines (2 - Td or Tdap)[facility] HealthcareStart: 26-61-5577Uhsdklgpt for malignant neoplasm of cervixPap SmearNOMS Healthcare Start: 25-05-9417Hhuqkmhdq B Vaccines (1 of 3 - 19+ 3-dose series)Hepatitis B Vaccines (1 of 3 - 19+ 3-dose series)[facility] HealthcareStart: 85-12-6286ZDF Vaccines (1 of 1 - Standard series)MMR Vaccines (1 of 1 - Standard series)[facility] HealthcareStart: 66-58-6544Nfpvaxilj for malignant neoplasm of colonNOMS Igazivfmgc16-jbeefkfrrvccrf D3 [Mass/volume] in Serum or PlasmaVitamin D 25 hydroxy Total Lab Routine Wellness examination Weight gain Ordered: 2025 [facility] HealthcareComment on above:Ordered: 2025BC W Auto Differential panel - BloodCBC and differential Lab Routine Wellness examination Iron deficiency Thrombocythemia Anemia, unspecified type Mixed hyperlipidemia Ordered: 2025[facility] HealthcareComment on above:Ordered: 2025omprehensive metabolic 2000 panel - Serum or PlasmaComprehensive metabolic panel Lab Routine Wellness examination Impaired fasting glucose Elevated ALT measurement History of gestational diabetes Hypokalemia Mixed hyperlipidemia Weight gain Ordered: 1 [facility] HealthcareComment on above:Ordered: 2025EstradiolEstradiol Lab Routine Wellness examination Mood swings Weight gain Irregular menses Ordered: 2025[facility] HealthcareComment on above:Ordered: 2025FSHFSH Lab Routine Wellness examination Mood swings Weight gain Irregular menses Ordered: 2025[facility] HealthcareComment on above:Ordered: 2025IGP, APT HPV,RFX 16/18,45IGP, APT HPV,RFX 16/18,45 Lab Routine Screening for malignant neoplasm of cervix Ordered: 08/28/2024[facility] Work Phone: comment on above:Ordered: 08/28/2024Iron + transferrin + TIBCIron + transferrin + TIBC Lab Routine Wellness examination Iron deficiency Anemia, unspecified typeIrregular menses Ordered: 2025[facility] HealthcareComment on above:Ordered: 2025Lipid 1996 panel - Serum or Plasma Lipid panel Lab Routine Wellness examination Impaired fasting glucose Mixed hyperlipidemia Ordered:2025[facility] HealthcareComment on above:Ordered: 2025Luteinizing hormoneLuteinizing hormone Lab Routine Wellness examination Mood swings Weight gain Irregular menses Ordered: 2025[facility] HealthcareComment on above:Ordered: 2025TSH W/REFLEX TO FT4TSH W/REFLEX TO FT4 Lab Routine Wellness examination Weight gain Irregular menses Ordered: 2025[facility] HealthcareComment on above:Ordered: 2025 Immunizations Immunization DateImmunizationNotesCare ZhdfnhmhJdpfynja39-64-6039Olkyfrhd 500 mg Jane Waller Other [facility] [employer] Other [id number] toxoid, reduced diphtheria toxoid, and acellular pertussis vaccine, adsorbedKaren Hemmer PA Work Phone: [facility] Work Phone: Payers DatePayer CategoryPayerPolicy [id number] Cross Blue ShieldBCBS Member Subscriber Plan / Payer (Effective 2022-Present) Name: Linda Alvarado Relation to Subscriber: Spouse Name: BRIANNA ALVARADO Date ofBirth: 1972 (Home) Address: [address] [place] [address] Payer ID:Not on file Type: Not on file Address: [place] [id number] Private Health InsuranceANTHEM [id number] BCBS [id number] 2022-Present [phone] [address] [place] [address] [id number]Opyo Cross Blue Shield [id number] 2.16840.5.66415[id number] 2.16840.1.504373.3.57[id number] 2.16840.1.843084.3.579.2.6[id number] 2.16840.1.771878.3.579.[id number] 2.16.840.1.653763.3.57[id number] 2.16.840.1.250823.3.57[id number] 2.16.840.1.034677.3.579.[id number] 2.16840.1.230242.3.579.[id number] 2.16.840.1.381335.3.579.2.837355-21-2379Hvunjri9620607 2.16840.1.572632.3.579.2.631564-60-8720Bvxryfl7762433 2.16.840.1.734832.3.579.[id number] 2.16840.1.690609.3.579.2.[id number] 2..1.396388.19UnknownCopay Assistance [id number] 2..1.3[id number] 2..1.060470.3.579.2.531 [id number] 2.0.1.522906.3.579.2.531 Social History DateTypeDetailFacilityUnknown if ever smokedNosaint luke's health system [employer] Other Start: 07-15-2023 End: 82-43-9547Vzc [facility] At [facility] HealthcareStart: 03-13-2021 End: 53-78-7912Eeikrgt smoking status NHISNever smoked tobacco (finding) [facility] Healthcaretart: 92-98-5457Mud [facility]: 03-27-2023 End: 66-68-1067Ignohry use and exposureSmokeless tobacco non-userN[facility] Start: 07-15-2023 End: 82-23-5860Ivsswrw intakeLifetime non-drinker (finding)[facility] HealthcareStart: 07-15-2023 End: 75-22-5362Qagcptg of Social functionNOMS HealthcareWithin the last year, have you been afraid of your partner or ex-partner?NoNOMS HealthcareDo you belong to any clubs or organizations such as methodist groups, unions, fraternal or athletic groups, or school groups?YesNOMS HealthcareAre you now , , , , never or living with a partner?MarriedNOMS HealthcareHow often to you have a drink containing alcohol?NeverNOMS Healthcare Start: 06-50-6437Oyc many standard drinks containing alcohol do you have on a typical day?Patient does not drinkNOMS HealthcareDo you feel stress - tense, restless, nervous, or anxious, or unable to sleep at night because yourmind is troubled all the time - these days [OSQ]Not at allNOMS Healthcare(I/We) worried whether (my/our) food would run out before (I/we) got money to buy more.Never trueNOMS HealthcareStart: 93-49-7469Qhdkeenys87HSTY HealthcareStart: 03-27-2023 Alcohol CommentCaffeine intake: 1-2 cups per day sodaNOMS HealthcareStart: 85-42-8413Fsa Assigned At BirthNot on fileNOVA HealthcareStart: 07-16-2024 End: 70-13-9779KxtZbhamx (finding)[facility] HospitalNEGATED: Highlighted rowStart: NINFHistory of tobacco usePassive smokerNOVA Healthcare Goals DatePatient GoalDesired Activity/StatePersonal health goal Functional Status GpvwKrtgqjeutaOsydghDtynigoh01-90-3844Jltesab Health Questionnaire 2 item (PHQ- 2) [Reported][facility] SpringsCdowtuttvv54-41-6410Tcnzi score [AUDIT-C]0 2025 1:29 PM EDT Mycconnecticut valley hospitalt, GenericSaint Mary's Hospital of Blue SpringsDvueilmyrl66-44-5943Rob often to you have a drink containing alcohol?Never 2025 1:29 PM EDT Mychart, Generic NeverNORipley County Memorial HospitalGnwbfliirm01-20-3565Agwtyatlfj statusPatient does not drink 2025 1:29 PM EDT Myco'kean, Generic Patient does not drinkSaint Mary's Hospital of Blue SpringsRggdnwszyw77-88-9320Swv often do you have 6 or more drinks on 1 occasion?Never 2025 1:29 PM EDT Mychart, Generic NeverNORipley County Memorial HospitalUdalvxekle87-23-8328Pajihor Health Questionnaire 2 item (PHQ- 2) [Reported][facility] SpringsCnjtluptjr41-99-9943Nsnglfx Health Questionnaire 2 item (PHQ- 2) [Reported][facility] Clinical Notes 11-18-2020 to 06-29-2025 Note Date & UzoxRrlxBhmxaqyl00-08-4957 Telephone encounter Note* Telephone Encounter - Iqra Hutchins MA - 06/29/2025 3:59 AM EDT Could you please send in a prescription for the 1 mg of Rexulti? Thank you! Lnida De Santiago is not on her medication list [facility] SpringsUgglaovtgm78-33-6270 Miscellaneous Notes* Telephone Encounter - Iqra Hutchins MA - 06/29/2025 3:59 AM EDT Could you please send in a prescription for the 1 mg of Rexulti? Thank you! Linda De Santiago is not on her medication list * Telephone Encounter - LISHA Grayson - 06/21/2025 12:43 PM EDT Please let pt know that her insurance will not approve the Zepbound either. The other medications they recommended are also not on formulary for her. \ She is welcome to look into alternative options online or locally supplied if she would like to pursue treatment. documented in this encounterSaint Mary's Hospital of Blue SpringsCbsgfuxrwk79-03-1636 [place] [address] Referral Source: Dr. Michael 50 year old female here for follow up after LESI L4/5 on 05/25/25. She reports 0% pain relief from the procedure. She rates her pain 5/10 in her low back and is constant all day. The pain is worse in the morning but is bothersome with any activity. She continues to take gabapentin 300 mg BID with good benefit. She noticed she is getting pain relief when she stopped it for a few days and her pain was more severe. She would like to try another injection for treatment of her pain. 06/22/25 CC: Chief Complaint Patient presents with Follow-up S/P LESI @ L4/5 Pain Assessment Pain Assessment: 0-10 Pain Score: 4 (7/10 this morning) Pain Type: Chronic pain Pain Location: Back Pain Orientation: Right, Left, Lower Pain Radiating Towards: Down legs to above knees Pain Descriptors: Aching, Burning Pain Frequency: Constant/continuous Pain Onset: Ongoing Clinical Progression: Not changed Aggravating Factors: Other (Comment) (Lying down sitting and getting up rom sitting) Result of Injury: No Work-Related Injury: No Patient's Stated Pain Goal: No pain Pain Interventions: Medication (See MAR) Response to Interventions: S/P LESI @ L4/5 NO Relief Gabapentin takes the edge off can function SUBJECTIVE: Linda Alvarado is a 50 y.o. female who presents for initial consultation chronic pain of the low back. The patient has had this pain for 8 months. Initiating event was reported as nothing specific. Pain is located in the low back and is radiating to the bilateral knee. The pain has worsened. The pain quality is described as sharp, aching, dull, and stabbing. The pain is constant. Today, the pain intensity is rated as a 6 on a scale of 0-10. Pain is alleviated with nothing. Pain is exacerbated with sitting. 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 The patient reports 4-6 hours of uninterrupted sleep per night. She was seen by neurosurgeon at [place] in July 2024 who diagnosed her with a fracture and had her wear a brace. She denies having surgery on her back. 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 She will take ibuprofen for pain with minimal benefit. She has not done PT for her back. She had recent right knee injection with Dr. Michael and they are working on getting authorization for second injection. She had never seen pain management before. Medical History[1] Problem List[2] Surgical History[3] Allergies[4] Family History[5] Review of Systems Constitutional: Negative for fever. Cardiovascular: Negative for chest pain. Gastrointestinal: Negative for abdominal pain. Genitourinary: Negative for dysuria and pelvic pain. Musculoskeletal: Positive for back pain. Neurological: Negative for weakness, numbness and headaches. Objective BP 136/84 Pulse 82 Ht 1.499 m (4' 11 ) Wt 88.5 kg (195 lb) LMP 05/20/2025 SpO2 97% BMI 39.39 kg/m??? Physical Exam General appearance: Well appearing, in no acute distress, alert. Lungs: Breathing unlabored, no respiratory distress Psych: Mood and affect appropriate. Alert and oriented Skin: Skin color, texture, turgor normal, no rashes or lesions. HEENT: normocephalic, atraumatic, sclera non-icteric. Extremities: No rashes, deformities, skin discoloration. There is no edema bilateral lower extremity Lower Extremity Musculoskeletal: No atrophy or tone abnormalities are noted. Gait: normal Assist device: none Alignment spine: normal Tenderness: tenderness over bilateral lumbar paraspinals and lumbar facets Range of motion lumbar spine: Flexion: normal >60 degrees Extension: normal >25 degrees Left axial rotation: normal >15 degrees Right axial rotation: normal > 15 degrees Pain with lumbar motion: low back pain with forward flexion > 20 degrees and low back pain with lumbar extension and lateral flexion bilaterally Motor: Right hip flexion: +5 Right knee flexion: +5 Right knee extension: +5 Right foot plantar flexion: +5 Right foot dorsi flexion: +5 Left hip flexion: +5 Left knee flexion: +5 Left knee extension: +5 Left ankle plantar flexion: +5 Left ankle dorsi flexion: +5 Sensory: Right lower extremity: grossly intact to light touch Left lower extremity: grossly intact to light touch Right seated leg raising: positive at >30 degrees of hip flexion Left seated leg raising: positive at >30 degrees of hip flexion Left sacroiliac joint/hip Tenderness to palpation: negative Suhail's/ALANIS: negative FADIR: negative Compression: negative Distraction: negative Thigh Thrust: negative Gaenslen's: negative Right sacroiliac joint Tenderness to palpation: negative Suhail's/ALANIS: negative FADIR: negative Compression: negative Distraction: negative Thigh Thrust: negative Gaenslen's: negative. Imaging: XR pineda (more content not included)...[facility] 06-21-2025 Telephone encounter Note* Telephone Encounter - LISHA Grayson - 06/21/2025 12:43 PM EDT Please let pt know that her insurance will not approve the Zepbound either. The other medications they recommended are also not on formulary for her. \ She is welcome to look into alternative options online or locally supplied if she would like to pursue treatment. [facility] [id number] Telephone encounter Note* Telephone Encounter - LISHA Grayson - 06/08/2025 9:08 AM EDT Laura sent. [facility] [id number] Miscellaneous Notes* Telephone Encounter - LISHA Grayson - 06/08/2025 9:08 AM EDT Laura sent. * Telephone Encounter - Iqra Hutchins MA - 2025 3:45 PM EDT All Pharmacy Suggested Alternatives: Liraglutide -Weight Management 18 MG/3ML solution pen-injector Semaglutide-Weight Management (Wegovy) 0.25 MG/0.5ML solution auto-injector Liraglutide -Weight Management (Saxenda) 18 MG/3ML solution pen-injector Zepbound is not covered by her insurance documented in this encounterSaint [facility] [id number] Telephone encounter Note* Telephone Encounter - Iqra Hutchins MA - 2025 3:45 PM EDT All Pharmacy Suggested Alternatives: Liraglutide -Weight Management 18 MG/3ML solution pen-injector Semaglutide-Weight Management (Wegovy) 0.25 MG/0.5ML solution auto-injector Liraglutide -Weight Management (Saxenda) 18 MG/3ML solution pen-injector Zepbound is not covered by her insurance [facility] [id number] History of Present illness Narrative* LISHA Grayson - 2025 2:00 PM EDT Images from the original note were not included. HPI Med Refill Additional comments: Ondansetron Last edited by Radha Barton LPN on 2025 1:58 PM. Subjective Patient ID: Linda Alvarado is a 50 y.o. female who presents for Wellness. Subjective Linda Alvarado is a 50 y.o. female and is here for a comprehensive physical exam. The patient reports she feels her hormones needs checked. States she feels out of whack. Also would like to have her thyroid levels checked along with her yearly labs. Crying a lot, always in pain, had an epidural in her back and it did not help. Periods have been irregular. Over the past 2 weeks, how often have you been bothered by any of the following problems? Little interest or pleasure in doing things: Not at all Feeling down, depressed, or hopeless: Not at all Patient Health Questionnaire-2 Score: 0 Current Outpatient Medications on File Prior to Visit Medication Sig Dispense Refill acetaminophen (Tylenol) 325 MG tablet Take 650-975 mg by mouth every 6 (six) hours if needed gabapentin (Neurontin) 300 MG capsule Take 300 mg by mouth in the morning and 300 mg in the evening. Advair Diskus 500-50 MCG/ACT aerosol powder INHALE 1 PUFF INTO THE LUNGS TWICE A DAY FOR 30 DAYS albuterol HFA 90 mcg/act inhaler amphetamine-dextroamphetamine (Adderall) 20 MG tablet TAKE 1 TABLET ORALLY ONCE A DAY AT NOON 90 DAYS atorvastatin (Lipitor) 10 MG tablet TAKE 1 TABLET BY MOUTH EVERY DAY IN THE MORNING 100 tablet 3 cetirizine (ZyrTEC ALLERGY) 10 [...] 2 SPRAYS IN EACH NOSTRIL ONCE DAILY omeprazole (PriLOSEC) [address] capsule TAKE 1 CAPSULE BY MOUTH IN THE MORNING AND 1 CAPSULE BEFORE BEDTIME. 200 capsule 3 ondansetron ODT (Zofran-ODT) 4 MG disintegrating tablet Take 4 mg by mouth every 8 (eight) hours ifneeded potassium chloride CR (Klor-Con) 10 MEQ ER tablet TAKE 2 TABLETS BY MOUTH IN THE MORNING AND BEFOREBEDTIME 360 tablet 2 Sunosi 150 MG tablet torsemide (Demadex) 10 MG tablet TAKE 1 TABLET BY MOUTH EVERY DAY 90 tablet 1 valACYclovir (Valtrex) 500 MG tablet Take 1 tablet (500 mg) by mouth Daily 90 tablet 3 [DISCONTINUED] meloxicam (Mobic) 15 MG tablet Take 15 mg by mouth in the morning. (Patient not taking: Reported on 2025) No current facility-administered medications on file prior [...] History: Diagnosis Date Abnormal ECG 12/2018 Asthma ([facility]) Comminuted fracture of shaft of tibia 07/06/2019 RT COVID-19 05/2021 Ectopic ([facility]) 2011 Fracture of tibial plateau 08/17/2019 GDM (gestational diabetes mellitus) ([facility]) Infertility counseling Miscarriage ([facility]) 2010 OCD (obsessive compulsive disorder) ROBYN (obstructive sleep apnea) Seasonal allergies Past Surgical History: Procedure Laterality Date CARPAL TUNNEL RELEASE 2007 SECTION, LOW TRANSVERSE 2016 COLPOSCOPY 1999, 2001 D&C FIRST TRIMESTER / TX INCOMPLETE / MISSED / SEPTIC / INDUCED 2011 DILATION AND CURETTAGE OF UTERUS 2012 GALLBLADDER 2012 TIBIA FRACTURE SURGERY Right 07/07/2019 ORIF Visit Vitals BP 122/74 Pulse 83 Resp 16 Ht 5' Wt 198 lb 3.2 oz SpO2 95% BMI 38.71 kg/m OB Status Having periods Smoking Status Never BSA 1.95 m Review of Systems Constitutional: Positive for fatigue and unexpected weight change (Gain). Negative for chills and fever. HENT: Negative for congestion, ear pain, rhinorrhea and sore throat. Eyes: Negative for pain, discharge and visual disturbance. Respiratory: Negative for cough, shortness of breath and wheezing. Cardiovascular: Negative for chest pain, palpitations and leg swelling. Gastrointestinal: Negative for abdominal pain, constipation, diarrhea, nausea and vomiting. Genitourinary: Negative for difficulty urinating, dysuria and frequency. Musculoskeletal: Positive for back pain. Negative for arthralgias. Skin: Negative for rash. Neurological: Negative for dizziness and numbness. Psychiatric/Behavioral: Positive for dysphoric mood. Negative for sleep disturbance. The patient isnot nervous/anxious. Objective Physical Exam Constitutional: General: She [...] Reflexes normal. Psychiatric: Mood and Affect: Mood is depressed. Affect is tearful. Behavior: Behavior normal. Thought Content: Thought content normal. Judgment: Judgment normal. Office Visit on 2025 Component Date Value Ref Range Status Hemoglobin A1C 2025 5.8 Final Assessment/Plan Diagnoses and all orders for this visit: Wellness examination - CBC and differential - Comprehensive metabolic panel - Lipid panel - Iron + transferrin + TIBC - Vitamin D 25 hydroxy Total - TSH W/REFLEX TO FT4 - FSH - Luteinizing hormone - Estradiol Wellness form reviewed in detail with the patient. Encouraged patient to stay up to date on immunizations and preventative testing. Encouraged healthy diet, stay active. Will continue with yearly wellness exams. Screening for malignant neoplasm of colon - Cologuard colon cancer screening; Future Provided patient with order to complete Cologuard testing as a screening for colon cancer. If results are negative, will plan to recheck a Cologuard in 3 years. If results are positive, would need toprovide patient with referral for a screening Colonoscopy for further evaluation. Impaired fasting glucose - POCT glycosylated hemoglobin (Hb A1C) docked device - Comprehensive metabolic panel - Lipid panel Advised pt that her HgbA1c was mildly elevated today at 5.8. Pt is to limit simple sugars in her diet. Iron deficiency - CBC and differential - Iron + transferrin + TIBC Will recheck with upcoming labs. Thrombocythemia - CBC and differential Will recheck with upcoming labs. Anemia, unspecified type - CBC and differential - Iron + transferrin + TIBC Will recheck with upcoming labs. Elevated ALT measurement - Comprehensive metabolic panel Will recheck with upcoming labs. History of gestational diabetes - Comprehensive metabolic panel Will recheck fasting glucose with upcoming labs. A1c 5.8 today. Hypokalemia - Comprehensive metabolic panel Will recheck with upcoming labs. Mixed hyperlipidemia - CBC and differential - Comprehensive metabolic panel - Lipid panel Will recheck with upcoming labs. Obstructive sleep apnea - Tirzepatide-Weight Management (Zepbound) 2.5 MG/0.5ML solution auto-injector; Inject 2.5 mg underthe skin 1 (one) time per week Currently on a BiPAP. Provided pt with prescription for Zepbound for management of ROBYN and obesity. Reviewed how the medication works in the body, and also reviewed potential s/e, including but not limited to headache, GI s/e, pancreatitis, gall bladder disease, and impaired kidney function. Advised it is a once-a-week injection. Reviewed where to give the injection, inject into the subcutaneous tissue of the abdomen, avoiding a 1 inch tetlin around the belly button. Patient denies any personalor family history of thyroid cancer or pancreatitis. Can increase the dosage monthly as tolerated to maximize benefit. Goal will be improved control of ROBYN and gradual steady weight loss. Advised will need to be seen in the office routinely to reassess tolerability and efficacy of the medication. Class 2 severe obesity due to excess calories with serious comorbidity and body mass index (BMI) of38.0 to 38.9 in adult - Tirzepatide-Weight Management (Zepbound) 2.5 MG/0.5ML solution auto-injector; Inject 2.5 mg underthe skin 1 (one) time per week Cardiovascular benefits of weight loss reviewed. Encouraged portion control, decrease simple sugarsand carbohydrates, and gradually increase activity level. Nausea - ondansetron ODT (Zofran-ODT) 4 MG disintegrating tablet; Take 1 tablet (4 mg) by mouth every 8 (eight) hours if needed for vomiting or nausea Refill provided on the above for pt to use as needed. Mood swings - FSH - Luteinizing hormone - Estradiol Will evaluate further with lab work. Weight gain - Comprehensive metabolic panel - Vitamin D 25 hydroxy Total - TSH W/REFLEX TO FT4 - FSH - Luteinizing hormone - Estradiol Will evaluate further with lab work. Irregular menses - Iron + transferrin + TIBC - TSH W/REFLEX TO FT4 - FSH - Luteinizing hormone - Estradiol Will evaluate further with lab work. Pt does follow up with [facility]. Follow up in about 4 weeks (around 07/05/2025) for Medication Follow Up. documented in this encounterSaint [facility] [id number] Telephone encounter Note* Telephone Encounter - LISHA Grayson - 05/17/2025 8:31 AM EDT Kristen sent [facility] [id number] Miscellaneous Notes* Telephone Encounter - LISHA Grayson - 05/17/2025 8:31 AM EDT Kristen sent documented in this encounterSaint [facility] [id number] Emergency department Note * Kimberly Gregory RN - 04/07/2025 3:48 AM EDT Patient Education: Learner: Patient Motivation/Readiness to Learn: High Barriers to Learning: None Learning Preference: Verbal and Written Discharge instructions given. Patient verbalizes understanding of instructions. No further questions. Linda Zuniga Tuyet discharged to home per ambulation Patient identification verified with all documents, including prescriptions given to the patient:yes What was your final reassessment of pain: 4 = Moderate Pain Encounter Meds New Prescriptions ACETAMINOPHEN (TYLENOL) 325 MG TABLET Take 2-3 Tablets (650-975 mg) by mouth every 6 hours as needed for Pain or Fever. Quantity: 40 Tablet Notes: -- CEFADROXIL (DURICEF) 500 MG CAPSULE Take 1 Capsule (500 mg) by mouth every 12 hours for 10 days. Quantity: 20 Capsule Notes: -- DOXYCYCLINE (VIBRAMYCIN) 100 MG CAPSULE Take 1 Capsule (100 mg) by mouth 2 times daily for 10 days. Quantity: 20 Capsule Notes: -- HYDROCODONE-ACETAMINOPHEN (NORCO) 5-325 MG PER TABLET Take 1 Tablet by mouth every 6 hours as needed for Pain for up to 5 days. Quantity: 14 Tablet Notes: -- NAPROXEN (NAPROSYN) 500 MG TABLET Take 1 Tablet (500 mg) by mouth 2 times daily as needed (Pain. Take with food.). Quantity: 14 Tablet Notes: -- [facility] Work Phone: [phone] NotePatient Education: Learner: Patient Motivation/Readiness to Learn: High Barriers to Learning: None Learning Preference: Verbal and Written Discharge instructions given. Patient verbalizes understanding of instructions. No further questions. Linda Marcelle Alvarado discharged to home per ambulation Patient identification verified with all documents, including prescriptions given to the patient:yes What was your final reassessment of pain: 4 = Moderate Pain Encounter Meds New Prescriptions ACETAMINOPHEN (TYLENOL) 325 MG TABLET Take 2-3 Tablets (650-975 mg) by mouth every 6 hours as needed for Pain or Fever. Quantity: 40 Tablet Notes: -- CEFADROXIL (DURICEF) 500 MG CAPSULE Take 1 Capsule (500 mg) by mouth every 12 hours for 10 days. Quantity: 20 Capsule Notes: -- DOXYCYCLINE (VIBRAMYCIN) 100 MG CAPSULE Take 1 Capsule (100 mg) by mouth 2 times daily for 10 days. Quantity: 20 Capsule Notes: -- HYDROCODONE-ACETAMINOPHEN (NORCO) 5-325 MG PER TABLET Take 1 Tablet by mouth every 6 hours as needed for Pain for up to 5 days. Quantity: 14 Tablet Notes: -- NAPROXEN (NAPROSYN) 500 MG TABLET Take 1 Tablet (500 mg) by mouth 2 times daily as needed (Pain. Take with food.). Quantity: 14 Tablet Notes: --[facility] [id number] Emergency department Note* Kimberly Gregory RN - 04/07/2025 3:48 AM EDT Patient Education: Learner: Patient Motivation/Readiness to Learn: High Barriers to Learning: None Learning Preference: Verbal and Written Discharge instructions given. Patient verbalizes understanding of instructions. No further questions. Linda Alvarado discharged to home per ambulation Patient identification verified with all documents, including prescriptions given to the patient:yes What was your final reassessment of pain: 4 = Moderate Pain Encounter Meds New Prescriptions ACETAMINOPHEN (TYLENOL) 325 MG TABLET Take 2-3 Tablets (650-975 mg) by mouth every 6 hours as needed for Pain or Fever. Quantity: 40 Tablet Notes: -- CEFADROXIL (DURICEF) 500 MG CAPSULE Take 1 Capsule (500 mg) by mouth every 12 hours for 10 days. Quantity: 20 Capsule Notes: -- DOXYCYCLINE (VIBRAMYCIN) 100 MG CAPSULE Take 1 Capsule (100 mg) by mouth 2 times daily for 10 days. Quantity: 20 Capsule Notes: -- HYDROCODONE-ACETAMINOPHEN (NORCO) 5-325 MG PER TABLET Take 1 Tablet by mouth every 6 hours as needed for Pain for up to 5 days. Quantity: 14 Tablet Notes: -- NAPROXEN (NAPROSYN) 500 MG TABLET Take 1 Tablet (500 mg) by mouth 2 times daily as needed (Pain. Take with food.). Quantity: 14 Tablet Notes: -- * Kimberly Gregory RN - 04/07/2025 3:38 AM EDT Chun wrap to left lower leg * Kimberly Gregory RN - 04/07/2025 3:24 AM EDT Left leg outlined with surgical marker per Dr. Fuentes request. * Jenna Leone RN - 04/06/2025 9:31 PM EDT Pt ambulatory to ED with c/o injuring right lower leg last . Pt almost fell and caught herself while scraping her leg down a mop bucket. Pt reports bruising has gotten worse and now the leg is tingling around the site of the injury. Reports leg is painful to touch. Ambulatory without assistance. A&Ox4 documented in this encounterThe [facility] [id number] Emergency department Note* Kimberly Gregory RN - 04/07/2025 3:38 AM EDT Chun wrap to left lower leg [facility] [id number] Emergency department Note* Kimberly Gregory RN - 04/07/2025 3:24 AM EDT Left leg outlined with surgical marker per Dr. Fuentes request. [facility] [id number] Hospital Discharge instructions* Discharge Instructions* Lenny Fuentes MD - 04/07/2025 3:22 AM EDT Today in the emergency department your examination and are ultrasound findings are consistent with your concern for cellulitis. You have been started on antibiotic medications, receiving your initialdosing while in the emergency department. You were given a prescription for an antibiotic called cefadroxil (Duricef) 500 mg capsules. You will take one capsule every 12 hours until completed. You were given a prescription for an antibiotic called doxycycline (Vibramycin) 100 mg capsule or tablet. You will take one dose every 12 hours until completed. This medication should always be takenwith food. For pain you may take naproxen (Naprosyn) 500 mg tablets. You may take one tablet every 12 hours asneeded. This medication should always be taken with food. This is an anti-inflammatory pain medication that is a longer acting alternative to ibuprofen. If you prefer ibuprofen you may take that instead, but do not take both at the same time. For pain you may also take hydrocodone-acetaminophen (Silsbee) 5/325 mg tablets. You may take one tablet every 6 hours as needed. This is an opiate medication combined with Tylenol. Opiates can cause nausea, somnolence, and constipation. Always use these medications with caution. For pain you may take additional acetaminophen (Tylenol) and you have been given a prescription forthis medication. How much you can take we will depend on whether or not you are also taking Silsbee. Each Silsbee tablet contains 325 mg of Tylenol. If you have taken Silsbee within the preceding 6 hours or at the same time, take only two acetaminophen tablets (650 mg). If you are not taking Silsbee, you may take three Tylenol tablets at the same time for a total of 975 mg. Do not take more than 1000 mg of acetaminophen every 6 hours. Do not take more than 4000 mg of acetaminophen in a 24 hour time span. Your skin was marked with the area of discoloration contained within an outline. If the redness anddiscoloration spreads more than two finger widths beyond the outline, you should be re-evaluated. * Attachments The following attachments cannot be sent through Care Everywhere. * Cellulitis Adult (Ghanaian) * How to Use Elastic Bandages and RICE Therapy After an Injury (Ghanaian) documented in this encounterThe [facility] [id number] Emergency department Triage note* Jenna Leone RN - 04/06/2025 9:31 PM EDT Pt ambulatory to ED with c/o injuring right lower leg last . Pt almost fell and caught herself while scraping her leg down a mop bucket. Pt reports bruising has gotten worse and now the leg is tingling around the site of the injury. Reports leg is painful to touch. Ambulatory without assistance. A&Ox4 [facility] [id number] NotePatient ID: Linda Alvarado is a 49 y.o. female. Major Joint: R knee on 03/31/2025 10:43 AM Indications: pain Details: 21 G needle, medial approach Durolane 3ml Procedure, treatment alternatives, risks and benefits explained, specific risks discussed. Consent was given by the patient. Immediately prior to procedure a time out was called to verify the correct patient, procedure, equipment, legal support assistant and site/side marked as required. Patient was prepped and draped in the usual sterile fashion. Diagnosis Plan 1. Post-traumatic osteoarthritis of right knee Major Joint sodium hyaluronate (Durolane) (Durolane) injection 60 mg [facility] [address] Referral Source: Dr. Michael SUBJECTIVE: Linda Alvarado is a 49 y.o. female who presents for initial consultation chronic pain of the low back. The patient has had this pain for 8 months. Initiating event was reported as nothing specific. Pain is located in the low back and is radiating to the bilateral knee. The pain has worsened. The pain quality is described as sharp, aching, dull, and stabbing. The pain is constant. Today, the pain intensity is rated as a 6 on a scale of 0-10. Pain is alleviated with nothing. Pain is exacerbated with sitting. 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 The patient reports 4-6 hours of uninterrupted sleep per night. She was seen by neurosurgeon at [place] in July 2024 who diagnosed her with a fracture and had her wear a brace. She denies having surgery on her back. 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 She will take ibuprofen for pain with minimal benefit. She has not done PT for her back. She had recent right knee injection with Dr. Michael and they are working on getting authorization for second injection. She had never seen pain management before. CC: Chief Complaint Patient presents with New Patient Lower back pain Pain Assessment Pain Assessment: 0-10 Pain Score: 6 Pain Type: Chronic pain Pain Location: Back Pain Orientation: Right, Left Pain Radiating Towards: Down thigh and sometimes into knees Pain Descriptors: Aching, Burning, Sharp, Shooting, Stabbing, Throbbing Pain Frequency: Constant/continuous Pain Onset: Ongoing Date Pain First Started: (July 2024) Clinical Progression: Not changed Aggravating Factors: Other (Comment) (Sleeping and sitting for to long) Result of Injury: No Work-Related Injury: No Patient's Stated Pain Goal: No pain Pain Interventions: Home medication, Cold pack, Cold applied Medical History[1] Problem List[2] Surgical History[3] Allergies[4] Family History[5] Review of Systems Constitutional: Negative for fever. Cardiovascular: Negative for chest pain. Gastrointestinal: Negative for abdominal pain. Genitourinary: Negative for dysuria and pelvic pain. Musculoskeletal: Positive for back pain. Neurological: Negative for weakness, numbness and headaches. Objective BP 118/81 Pulse 90 Ht 1.499 m (4' 11 ) Wt 86.2 kg (190 lb) SpO2 96% BMI 38.38 kg/m??? Physical Exam General appearance: Well appearing, in no acute distress, alert. Lungs: Breathing unlabored, no respiratory distress Psych: Mood and affect appropriate. Alert and oriented Skin: Skin color, texture, turgor normal, no rashes or lesions. HEENT: normocephalic, atraumatic, sclera non-icteric. Extremities: No rashes, deformities, skin discoloration. There is no edema bilateral lower extremity Lower Extremity Musculoskeletal: No atrophy or tone abnormalities are noted. Gait: normal Assist device: none Alignment spine: normal Tenderness: tenderness over bilateral lumbar paraspinals and lumbar facets Range of motion lumbar spine: Flexion: normal >60 degrees Extension: normal >25 degrees Left axial rotation: normal >15 degrees Right axial rotation: normal > 15 degrees Pain with lumbar motion: low back pain with forward flexion > 20 degrees and low back pain with lumbar extension and lateral flexion bilaterally Motor: Right hip flexion: +5 Right knee flexion: +5 Right knee extension: +5 Right foot plantar flexion: +5 Right foot dorsi flexion: +5 Left hip flexion: +5 Left knee flexion: +5 Left knee extension: +5 Left ankle plantar flexion: +5 Left ankle dorsi flexion: +5 Sensory: Right lower extremity: grossly intact to light touch Left lower extremity: grossly intact to light touch Right seated leg raising: positive at >30 degrees of hip flexion Left seated leg raising: positive at >30 degrees of hip flexion Left sacroiliac joint/hip Tenderness to palpation: negative Suhail's/ALANIS: negative FADIR: negative Compression: negative Distraction: negative Thigh Thrust: negative Gaenslen's: negative Right sacroiliac joint Tenderness to palpation: negative Suhail's/ALANIS: negative FADIR: negative Compression: negative Distraction: negative Thigh Thrust: negative Gaenslen's: negative. Imaging: XR lumbar spine complete 4+ views 11/30/2024 Narrative XR LUMBAR SPINE COMPLETE 4+ VIEWS HISTORY: Lower lumbar pain radiating down right leg COMPARISON: None FINDINGS: Levoconvex curvature in the lumbar spine. Lumbar vertebral body heights are preserved. Endplate degenerative changes at multiple levels. Disc height loss at L1-2. Diffuse facet arthropathy. No pathologic change in alignment between flexion and extension. 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 Electronically si (more content not included)...[facility]06-11-2025 NoteHPI Reported by patient. Hand Dominance: right Location: right tibial plateau ORIF [address] Ku, complains of pain to right knee joint, also complaints of right leg pain with radiculopathy, history of pars fracture last year treated by outside provider, CSI to right knee was quite helpful, here today to review MRI lumbar spine, pain to right knee returning, pain management appointment next month Quality: improving Severity: mild-moderate right thigh Alleviating Factors: no issues Aggravating Factors: cannot identify Associated Symptoms: no weakness; no numbness; no tingling; no swelling; no redness; no warmth; no ecchymosis; no catching/locking; no popping/clicking Previous Surgery: surgical procedure:see above Prior Imaging: x ray; MRI ROS Patient reports arthralgias/joint pain, reports no fever and no chills, reports no chest pain, reports no numbness and no weakness. Physical [...] none Tenderness: present Lateral joint line: moderate Left Increased warmth: none [...] dated shows L1-2 right side disc protrusion Plan Medrol Mobic Flexeril Right knee CSI helped, pain has returned. Obtain approval for Durolane right knee Pain management lumbar spine PT [facility]05-19-2025 History of Present illness Narrative* Gita Garcia, LISHA - 01/18/2025 9:00 AM EDT Images from the original note were not included. Subjective Patient ID: Linda Alvarado is a 49 y.o. female who presents for [facility] ER follow up. Linda is present today for [facility] ER follow up. Seen on 01/16/25 Dx. Otitis Media, Vertigo, Rx'd Amoxicillin, Meclizine, Ondansetron, Fluconazole, and was asked to hold her potassium while she was on the meclizine and she is still on it. Her left ear is still bothering her, decreased hearing, feel like I have my airpod in all the time . Denies pain. She is still on the ATB. States the vertigo is a little better and no longer feels like she is going to throw up. Current Outpatient Medications on File Prior to Visit Medication Sig Dispense Refill meloxicam (Mobic) 15 MG tablet Take 15 mg by mouth in the morning. ondansetron ODT (Zofran-ODT) 4 MG disintegrating tablet Take 4 mg by mouth every 8 (eight) hours ifneeded [DISCONTINUED] amoxicillin (Amoxil) 500 MG capsule Take 500 mg by mouth in the morning and 500 mg before bedtime. (Patient taking differently: Take 500 mg by mouth in the morning and 500 mg in the evening and 500 mg before bedtime.) Advair Diskus 500-50 MCG/ACT aerosol powder INHALE 1 PUFF INTO THE LUNGS TWICE A DAY FOR 30 DAYS albuterol HFA 90 mcg/act inhaler amphetamine-dextroamphetamine (Adderall) 20 MG tablet TAKE 1 TABLET ORALLY ONCE A DAY AT NOON 90 DAYS atorvastatin (Lipitor) 10 MG tablet TAKE 1 TABLET BY MOUTH EVERY DAY IN THE MORNING 100 tablet 3 cetirizine (ZyrTEC ALLERGY) 10 [...] 2 SPRAYS IN EACH NOSTRIL ONCE DAILY omeprazole (PriLOSEC) [address] capsule Take 1 capsule (40 mg) by mouth in the morning and 1 capsule(40 mg) before bedtime. 180 capsule 3 potassium chloride CR (Klor-Con) 10 MEQ ER tablet Take 2 tablets (20 mEq) by mouth in the morning and 2 tablets (20 mEq) before bedtime. (Patient not taking: Reported on 01/18/2025) 120 tablet 6 Sunosi 150 MG tablet torsemide (Demadex) 10 MG tablet TAKE 1 TABLET (10 MG) BY MOUTH DAILY. 90 tablet 1 valACYclovir (Valtrex) 500 MG tablet Take 1 tablet (500 mg) by mouth Daily 90 tablet 3 [DISCONTINUED] doxycycline (Vibramycin) 100 MG capsule Take 100 mg by mouth in the morning and 100 mg before bedtime. [DISCONTINUED] methocarbamol (Robaxin) 750 MG tablet TAKE 1 TABLET BY MOUTH 3 TIMES A DAY NEEDEDFOR PAIN [DISCONTINUED] methylPREDNISolone (Medrol Dospak) 4 MG tablets Follow schedule on package instructions 21 tablet 0 [DISCONTINUED] oxyCODONE-acetaminophen (Percocet) 5-325 MG tablet TAKE 1 TABLET BY MOUTH EVERY 6 HOURS NEEDED FOR PAIN FOR 3 DAYS No current facility-administered medications on file prior [...] History: Diagnosis Date Abnormal ECG 12/2018 Asthma Comminuted fracture of shaft of tibia 07/06/2019 RT COVID-19 05/2021 Ectopic 2010 Fracture of tibial plateau 08/17/2019 GDM (gestational diabetes mellitus) Infertility counseling Miscarriage [...] SURGERY Right 07/07/2019 ORIF Visit Vitals BP 132/84 Pulse 89 Temp 99.7 F Resp 18 Ht 5' Wt 193 lb 6.4 oz SpO2 95% BMI 37.77 kg/m OB Status Having periods Smoking Status Never BSA 1.93 m Review of Systems Constitutional: Negative for chills, fatigue and fever. HENT: Positive for ear pain. Respiratory: Negative for cough, shortness of breath and wheezing. Cardiovascular: Negative for chest pain, palpitations and leg swelling. Gastrointestinal: Negative for abdominal pain, constipation, diarrhea, nausea and vomiting. Skin: Negative for rash. Neurological: Positive for dizziness. Objective Physical Exam Constitutional: General: She is not in acute distress. Appearance: She is well-developed. She is obese. HENT: Head: Normocephalic and atraumatic. Right Ear: Ear canal normal. A middle ear effusion (Fe colored) is present. Tympanic membrane isnot erythematous. Left Ear: Ear canal normal. A middle ear effusion is present. Tympanic membrane is erythematous (Marked). Tympanic membrane is not bulging. Eyes: General: No scleral icterus. Conjunctiva/sclera: Conjunctivae normal. Cardiovascular: Rate and Rhythm: Normal rate and regular rhythm. Heart sounds: Normal heart sounds. No murmur heard. Pulmonary: Effort: Pulmonary effort is normal. No respiratory distress. Breath sounds: Normal breath sounds. No wheezing, rhonchi or rales. Comments: Occasional moist cough Skin: General: Skin is warm and dry. Neurological: General: No focal deficit present. Mental Status: She is alert and oriented to person, place, and time. Psychiatric: Mood and Affect: Mood normal. Behavior: Behavior normal. Assessment/Plan Diagnoses and all orders for this visit: Left acute otitis media - amoxicillin (Amoxil) 500 MG capsule; Take 1 capsule (500 mg) by mouth in the morning and 1 capsule (500 mg) in the evening and 1 capsule (500 mg) before bedtime. Do all this for 5 days. - fluconazole (Diflucan) 150 MG tablet; Take 1 tablet (150 mg) by mouth Daily for 1 day, THEN 1 tablet (150 mg) Daily for 1 day. Take doses 3 days apart. Will have patient complete a full 10 days of the Amoxicillin for the left ear infection. Advised the dizziness may persist until the ears improve. Continue Zyrtec and Flonase as prescribed. Stay hydrated, get plenty of rest. Follow up as needed. Hypokalemia Can continue to hold the potassium supplement while on the Meclizine. Vertigo Continue Meclizine as needed. The patient was seen today in follow up of recent hospital ER visit. All available hospital records/labs were reviewed and discussed with the patient. ER discharge meds were reviewed. Any changes to plan are as noted. Follow up if symptoms worsen or fail to improve. documented in this encounterSaint [facility]'s Hospital [facility] [id number] Miscellaneous Notes* Telephone Encounter - LISHA Grayson - 01/05/2025 11:28 AM EDT Diflucan sent. * Telephone Encounter - IRVING COLEMAN - 01/05/2025 11:03 AM EDT Patient called asking for medication for a yeast infection. She was seen at the urgent Care for Cellulitis and they gave her an antibiotic. She would like diflucan sent in if possible. documented in this encounterSaint Mary's Hospital of Blue [id number] Telephone encounter Note* Telephone Encounter - LISHA Grayson - 01/05/2025 11:28 AM EDT Diflucan sent. [facility] [id number] Telephone encounter Note* Telephone Encounter - IRVING COLEMAN - 01/05/2025 11:03 AM EDT Patient called asking for medication for a yeast infection. She was seen at the urgent Care for Cellulitis and they gave her an antibiotic. She would like diflucan sent in if possible. [facility] [id number] Evaluation note* Diagnosis Onset Date Resolution Status Admit Date Cellulitis of left leg without foot acuteApril 2024 6:19pmHypnagogic hallucinationsacuteJune 2024 10:14am Narcolepsy and cataplexyacuteJune 2024 10:14amOSA (obstructive sleep apnea) acuteJune 2024 10:14amSleep paralysisacuteJune 2024 10:14am [facility] Work Phone: 1(691) 907-118904-09-2025 NoteHPI Reported by patient. Hand Dominance: right Location: [...] CSI helpful Pain management lumbar spine [facility]03-[facility] NoteHPI Reported by patient. Hand Dominance: right Location: [...] to verify the correct patient, procedure, equipment, legal support assistant and site/side marked as required. Patient was prepped and draped in the usual sterile fashion. Plan Mobic Flexeril Right knee CSI PT exercises Follow up next few weeks with actual MRI films lumbar spine for reviewH[facility]02-26-2025 Evaluation note* Diagnosis Onset Date Resolution Status Admit Date Hypnagogic hallucinations acuteFebruary 2024 3:34pmNarcolepsy and cataplexyacuteFebruary 2024 3:34pmOSA (obstructive sleep apnea)acuteFebruary 2024 3:34pmSleep paralysisacuteFebruary 2024 3:34pm [facility] Work Phone: 1(349) 178-323712-27-2024 History of Present illness Narrative* Leny Sheets MA - 08/28/2024 11:30 AM EST Images from the original note were not included. Lenny Snow, DO Obstetrics and Gynecology Linda Alvarado 1975 08/28/24 [id number] Yearly Wellness Exam Chief Complaint Patient presents [...] Date Abnormal ECG 12/2018 Asthma ([facility]) Comminuted fracture of shaft of tibia 07/06/2019 RT COVID-19 05/2021 Ectopic 2010 Fracture of tibial plateau GDM (gestational diabetes mellitus) Infertility counseling Miscarriage 2010 OCD (obsessive compulsive disorder) ([facility]) ROBYN (obstructive sleep apnea) Seasonal [...] costovertebral angle tenderness, no obvious scoliosis/kyphosis. 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 Signature Cornelio SnowDMaximeO. Date 08/28/24 Time 5:00PM. documented in this [facility]12-02-2024 Evaluation note* Diagnosis Onset Date Resolution Status Admit Date GERD (gastroesophageal reflux disease) acuteDece2023 3:24pmMild intermittent asthma, uncomplicatedacute August 03, 2024 3:24pmSeasonal allergiesacuteDecemb2023 3:24pmAcute sinusitisacuteDece2023 10:23amAsthma exacerbationacuteDeceer 2023 10:23am [facility] Work Phone: 1(395) 189-665211-11-2024 Telephone encounter Note* Telephone Encounter - LISHA Grayson - 07/13/2024 2:42 PM EST Sent [facility] [id number] Miscellaneous Notes* Telephone Encounter - LISHA Grayson - 07/13/2024 2:42 PM EST Sent * Telephone Encounter - Iqra Hutchins MA - 07/13/2024 9:17 AM EST Pt lm on vm asking if a refill of medrol tomer could be sent in again as her feet are swelling again documented in this [facility]11-11-2024 Telephone encounter Note* Telephone Encounter - Iqra Hutchins MA - 07/13/2024 9:17 AM EST Pt lm on asking if a refill of medrol tomer could be sent in again as her feet are swelling again [facility] [id number] History of Present illness Narrative* Trever Barnard [...] Date Abnormal ECG 12/2018 Asthma ([facility]) Comminuted fracture of shaft of tibia 07/06/2019 RT COVID-19 05/2021 Ectopic 2010 Fracture of tibial plateau GDM (gestational diabetes mellitus) Infertility counseling Miscarriage 2010 OCD (obsessive compulsive disorder) ([facility]) ROBYN (obstructive sleep apnea) Seasonal [...] Master's degree (e.g., MA, MS, Grisel, MEd, CLINICAL DIETICIAN, LEONEL) Occupational 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 Trever Barnard DPM documented in this [facility]10-12-2024 Telephone encounter Note* Telephone Encounter - LISHA Grayson - 06/13/2024 9:33 AM EDT Please let pt know that her recent lab showed her potassium is back in normal range. Continue potassium supplement. [facility] [id number] Miscellaneous Notes* Telephone Encounter - LISHA Grayson - 06/13/2024 9:33 AM EDT Please let pt know that her recent lab showed her potassium is back in normal range. Continue potassium supplement. documented in this [facility]10-02-2024 History of Present illness Narrative* LISHA Grayson - 06/03/2024 4:00 PM EDT Images from the original note were not included. Subjective Patient ID: Linda Alvarado is a 48 y.o. female who presents for a follow up of [facility] on 05/30. She went to [facility] for hypokalemia. Linda is present today for a follow up of [facility] for hypokalemia, she states her legs [...] months (around 09/03/2024). documented in this encounterSaint Mary's Hospital of Blue [id number] Telephone encounter Note* Telephone Encounter - Tracy Villareal NP - 05/31/2024 10:01 AM EDT The pt was contacted today to see how she was feeling. She is inpatient at [facility]. She has been given IV potassium and magnesium. Possible Dc today. [facility] Work Phone: 1(876) 935-706509-29-2024 Miscellaneous Notes* Telephone Encounter - Tracy Villareal NP - 05/31/2024 10:01 AM EDT The pt was contacted today to see how she was feeling. She is inpatient at [facility]. She has been given IV potassium and [...] ER. Patient advised. documented in this encounterSaint Mary's Hospital of Blue [id number] Telephone encounter Note* Telephone Encounter - Myron Whiteheadovern - 05/30/2024 7:59 PM EDT Linda Tuyet [birth year]: : Tracy Villareal. Patient states she [...] go to the ER. Patient advised. [facility] [id number] History of Present illness Narrative* Trever Barnard, DPM - 05/28/2024 2:40 PM EDT Patient: Linda N Tuyet : 1975 PCP: Elver Mendenhall MD SUBJECTIVE [...] Date Abnormal ECG 12/2018 Asthma ([facility]) Comminuted fracture of shaft of tibia 07/06/2019 RT COVID-19 05/2021 Ectopic 2010 Fracture of tibial plateau GDM (gestational diabetes mellitus) Infertility counseling Miscarriage 2010 OCD (obsessive compulsive disorder) ([facility]) ROBYN (obstructive sleep apnea) Seasonal [...] Master's degree (e.g., MA, MS, Grisel, MEd, CLINICAL DIETICIAN, LEONEL) 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 Passive exposure: [...] Stress: No Stress Concern Present (07/15/2023) [place] [employer] - Occupational Stress Questionnaire Feeling of Stress : Not at all Social Connections: Socially Integrated (07/15/2023) Social Connection and Isolation Panel [NHANES] Frequency of Communication with Friends and Family: Twice a week Frequency of Social Gatherings with Friends and Family: More than three times a week Attends [facility] Services: More than 4 times per year [...] Trever Barnard DPM documented in this encounterSaint Mary's Hospital of Blue [id number] Telephone encounter Note* Telephone Encounter - Tracy Villareal NP - 05/27/2024 7:42 PM EDT See orders [facility] Work Phone: 1(359) 363-774109-25-2024 Miscellaneous Notes* Telephone Encounter - Tracy Villareal NP - 05/27/2024 7:42 PM EDT See orders documented in this encounterSaint Mary's Hospital of Blue [id number] Telephone encounter Note* Telephone Encounter - Tracy Villareal NP - 05/27/2024 6:09 PM EDT Pt called to inform of a critically low potassium level at 2.6 today. Advised to take 40 meq x 1 now, continue 40 meq bid and Saturday am, repeat k+ level Saturday am. [place] [id number] Miscellaneous Notes* Telephone Encounter - Tracy Villareal NP - 05/27/2024 6:09 PM EDT Pt called to inform of a critically low potassium level at 2.6 today. Advised to take 40 meq x 1 now, continue 40 meq bid and Saturday am, repeat k+ level Saturday am. documented in this encounterSaint Mary's Hospital of Blue [id number] History of Present illness Narrative* Trever Barnard [...] Date Abnormal ECG 12/2018 Asthma ([facility]) Comminuted fracture of shaft of tibia 07/06/2019 RT COVID-19 05/2021 Ectopic 2010 Fracture of tibial plateau GDM (gestational diabetes mellitus) Infertility counseling Miscarriage 2010 OCD (obsessive compulsive disorder) ([facility]) ROBYN (obstructive sleep apnea) Seasonal [...] Master's degree (e.g., MA, MS, Grisel, MEd, CLINICAL DIETICIAN, LEONEL) 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 Discussed condition in detail. Recommendation for [id number] compression stockings at this time and may consider prescription stockings in the future. Trever Barnard DPM documented in this encounterSaint Mary's Hospital of Blue [id number] History of Present illness Narrative* LISHA Grayson [...] wide feet. States she is seeing a Access Consultant tomorrow, Dr. Trever Barnard. Does not elevate [...] fail to improve. documented in this encounterSaint Mary's Hospital of Blue [id number] History of Present illness Narrative* Lubna Lawrence APRN-PRISCILLA - 10/14/2023 8:30 AM EST Images from [...] Visit: 1 year documented in this encounterSaint Mary's Hospital of Blue [id number] Evaluation note* Encounter Date Diagnosis Assessment Notes Treatment Notes Treatment Clinical Notes Oct, ROBYN (obstructive sleep apnea) (I CD-10 - G47.33) [facility] Other 02-02-2024 History of Present illness Narrative* [...] sleepiness The patient is seeing a medical care manager for this condition, treatment is deferred to that specialist. Correspondence from that specialist and any available testing were reviewed during today's visit. Obstructive sleep apnea The patient is seeing a medical care manager for this condition, treatment is deferred [...] infertility The patient is seeing a medical care manager for this condition, treatment is deferred [...] fracture The patient is seeing a medical care manager for this condition, treatment is deferred [...] (around 11/15/2023) for Recheck. documented in this [facility]11-30-2023 Evaluation note* Encounter Date Diagnosis Assessment Notes Treatment Notes Treatment Clinical Notes Jul, ROBYN (obstructive sleep apnea) (I CD-10 - G47.33) Substantial improvement in daytime persistent [...] on bringing down body weight, as I dolike to avoid getting a new machine for her Jul,Excessive daytime sleepiness (ICD-10 - G47.19)Persistent excessive daytime sleepiness after control of sleep apnea is at the very least present. S he has had excellent clinical response to the combination of Sunosi and Adderall extended release. I am also very suspicious she may have narcolepsy. Sunosi and Adderall can treat either problem Jul,Hypnagogic hallucinations (ICD-10 - R44.2)She has hypnagogic hallucinations, cataplexy, persistent excessive daytime sleepiness, and sleep paralysis. I am very suspicious that narcolepsy is present Jul,ataplexy (ICD-10 - G47.411)She is not had recurring cataplexy recently, but has reported symptoms in the past [facility] Other 11-28-2023 Evaluation note* Encounter Date Diagnosis Assessment Notes Treatment Notes Treatment Clinical Notes Jul, Mild intermittent asthma, uncomp licated (ICD-10 - J45.20) [facility] Other 10-12-2023 Evaluation note* Encounter Date Diagnosis Assessment Notes Treatment Notes Treatment Clinical Notes Jun, ROBYN (obstructive sleep apnea) (I CD-10 - G47.33) [facility] Other 10-02-2023 Evaluation note* Encounter Date Diagnosis Assessment Notes Treatment Notes Treatment Clinical Notes Jun, ROBYN (obstructive sleep apnea) (I CD-10 - G47.33) [facility] Other 08-01-2023 Evaluation note* Encounter Date Diagnosis Assessment Notes Treatment Notes Treatment Clinical Notes Apr, ROBYN (obstructive sleep apnea) (I CD-10 - G47.33) Substantial improvement in daytime persistent drowsiness after starting Sunosi. Has been able to decrease Adderall dose and still has much less daytime tiredness. I encouraged her to continue with longer sleep times as well. I am hoping for further improvement as Sunosi has more chance to kick in. Return 3 months, call sooner if problems Apr,Excessive daytime sleepiness (ICD-10 - G47.19)Persistent excessive daytime sleepiness after control of sleep apnea is at the very least present. I am also very suspicious she may have narcolepsy. Sunosi and Adderall can treat either problem Apr,Hypnagogic hallucinations (ICD-10 - R44.2)She has hypnagogic hallucinations, cataplexy, persistent excessive daytime sleepiness, and sleep paralysis. I am very suspicious that narcolepsy is present Apr,ataplexy (ICD-10 - G47.411) [facility] Other 07-10-2023 Evaluation note* Encounter Date Diagnosis Assessment Notes Treatment Notes Treatment Clinical Notes Mar, Mild intermittent asthma, uncomp licated (ICD-10 - J45.20) [facility] Other 2023 Evaluation note* Encounter Date Diagnosis Assessment Notes Treatment Notes Treatment Clinical Notes Jan, ROBYN (obstructive sleep apnea) (I CD-10 - G47.33) She has severe persistent excessive daytime sleepiness after control of sleep apnea. I am very suspicious that she has narcolepsy, but as yet we have not been able to get MSLT due to her sleep apnea control not being optimal each night before attempted MSLT. Her persistent elevated Quinn sleepiness score, at 17, continues to show [...] bullet and make another attempt at PSG/MSLT Jan,Excessive daytime sleepiness (ICD-10 - G47.19)She has significant excessive daytime sleepiness. I encouraged [...] daytime sleepiness after control of sleep apnea Jan,Hypnagogic hallucinations (ICD-10 - R44.2)She has had recurring hypnagogic hallucinations going back into childhood. These have improved with improvement in fatigue Jan,Sleep paralysis (ICD-10 - G47.8)She has had episodes of sleep paralysis Jan,ataplexy (ICD-10 - G47.411)She has had recurring cataplexy events. In context of these 3 symptoms, I am clinically almost certain that narcolepsy is present although we have not gotten the PSG MSLT documentation [employer] Other 03-23-2023 Evaluation note* Encounter Date Diagnosis Assessment Notes Treatment Notes Treatment Clinical Notes Oct, ROBYN (obstructive sleep apnea) (I CD-10 - G47.33) [facility] Other 12-27-2022 Evaluation note* Encounter Date Diagnosis Assessment Notes Treatment Notes Treatment Clinical Notes Aug, ROBYN (obstructive sleep apnea) (I CD-10 - G47.33) [facility] Other 11-01-2022 Evaluation note* Encounter Date Diagnosis Assessment Notes Treatment Notes Treatment Clinical Notes Jul, ROBNY (obstructive sleep apnea) (I CD-10 - G47.33) She is using and benefiting from treatment. Utilization time is adequate, just over 7 hours. A few breakthrough events, with max pressure approaching the current 20 cm H2O limit. Encouraged to work on bringing weight down. In the meantime continue Rx, call if problems Jul,Excessive daytime sleepiness (ICD-10 - G47.19)Continue with stimulant medication, encouraged adequate total sleep time. Emphasized continued use of positive airway pressure. Call if problems Jul,Hypnagogic hallucinations (ICD-10 - R44.2)Although PSG/MSLT was not conclusive, the presence of hypnagogic hallucinations and excessive daytime sleepiness does suggest the diagnosis of narcolepsy [facility] Other 09-22-2022 Evaluation note* Encounter Date Diagnosis Assessment Notes Treatment Notes Treatment Clinical Notes May, ROBYN (obstructive sleep apnea) (I CD-10 - G47.33) [facility] Other 07-18-2022 Evaluation note* Encounter Date Diagnosis Assessment Notes Treatment Notes Treatment Clinical Notes Mar, Mild intermittent asthma, uncomp licated (ICD-10 - J45.20) Take Breo 1 inhalation daily if you run out of Advair. [facility] Other 06-24-2022 Evaluation note* Encounter Date Diagnosis Assessment Notes Treatment Notes Treatment Clinical Notes Jan, ROBYN (obstructive sleep apnea) (I CD-10 - G47.33) [facility] Other 06-23-2022 Evaluation note* Encounter Date Diagnosis Assessment Notes Treatment Notes Treatment Clinical Notes Jan, ROBYN (obstructive sleep apnea) (I CD-10 - G47.33) She is compliant with positive airway pressure treatment and is using the device regularly. There is adequate control of sleep apnea with treatment. Since being off school utilization times are 7.5 hours, but prior to that was only 6.5 hours; inadequate sleep may also be playing some role. Jan,Excessive daytime sleepiness (ICD-10 - G47.19)She has excessive daytime sleepiness despite compliance with sleep apnea treatment. Her EDS may be residual after control of sleep apnea, as this can sometimes be observed in patients with pure sleepapnea and no other sleep problems. However I cannot rule out the possibility of narcolepsy, though we have not been able to document that with certainty. She reports that her alertness has been night and day since medication was started Jan,Hypnagogic hallucinations (ICD-10 - R44.2)Hypnagogic hallucinations and history of sleep paralysis can be seen in patients with nonspecific ex cessive sleepiness, though they are more common in narcolepsy. At some point nocturnal polysomnography with following multiple sleep latency test is likely indicated [facility] Other 03-25-2022 Evaluation note* Encounter Date Diagnosis Assessment Notes Treatment Notes Treatment Clinical Notes Oct, Narcolepsy and cataplexy (ICD-10 - G47.411) [facility] Other 01-07-2022 Evaluation note* Encounter Date Diagnosis Assessment Notes Treatment Notes Treatment Clinical Notes Sep, Mild intermittent asthma, uncomp licated (ICD-10 - J45.20) [facility] Other 01-07-2022 Evaluation note* Encounter Date Diagnosis Assessment Notes Treatment Notes Treatment Clinical Notes Sep, Narcolepsy and cataplexy (ICD-10 - G47.411) [facility] Other 12-21-2021 Evaluation note* Encounter Date Diagnosis [...] as regular sleep cycles as possible with adequatetotal sleep time. Aug,OSA (obstructive sleep apnea) (ICD-10 - G47.33) She [...] and usage times as regular as possible.) Aug,MI 37.0-37.9, adult (ICD-10 - Z68.37) Weight reduction is broadly beneficial and can have significant positive effects on sleep apnea [facility] Other 12-18-2021 Evaluation note* Encounter Date Diagnosis Assessment Notes Treatment Notes Treatment Clinical Notes Aug, Cellulitis of right lower extrem ity (ICD-10 - L03.115) Use medications as directed. Cover area as instructed. May use gently cleanser to area between daily application as instructed.. Follow up with primary care provider if no improvement of symptoms or if symptoms worsen. [facility] Other 12-01-2021 Evaluation note* Encounter Date Diagnosis Assessment Notes Treatment Notes Treatment Clinical Notes Aug, Narcolepsy and cataplexy (ICD-10 - G47.411) [facility] Other 10-29-2021 Evaluation note* Encounter Date Diagnosis Assessment Notes Treatment Notes Treatment Clinical Notes Jun, Narcolepsy and cataplexy (ICD-10 - G47.411) [facility] Other 09-30-2021 Evaluation note* Encounter Date Diagnosis [...] residual fatigue may disappear. No side effects May,Hypnagogic hallucinations (ICD-10 - R44.2) She has had [...] takes it in the morning it could havemore effect in the evening and may reduce hypnagogic hallucination symptoms. Antidepressants can have this secondary effect. She will switch her omeprazole to evening. She will call if problems May,Obstructive sleep apnea (ICD-10 - G47.33) Download shows good use and control. Call if poor response or problem .Ensure adequate total sleep time May,xcessive daytime sleepiness (ICD-10 - G47.19) controlled with PAP for ROBYN and med for narcolepsy [facility] Other 07-12-2021 Progress note Author John Cowan [facility] March 13, 2021 9:57amNote Date/TimeJuly 2020 9:43[facility] [place] [address] Hem/Onc Follow Up Note - OP Signed Patient: Linda Alvarado MR#: [id number] : 1975 Acct:[id number] Age/Sex: 45 / F Type: REG RCR Copies to: MD Gita Navarrete II, PA-C~ Subjective Date/Time of Service: Date of Service: 03/13/2021 Time of Service: 09:37 Chief Complaint: Patient is here for a 4 month follow up for thrombocytosis withlabs 03/08/2021 forreview. No concerns are voiced at this time. HPI: 45-year-old female primary patient of Gita Garcia nurse practitioner in [facility]. She is referred for mild thrombocytosis, then was found to have iron deficiency. The thrombocytosis has since resolved. She had received Injectafer infusions, 750 mg x2. She felt really good after iron infusion for2 weeks, nowtired again. She also has experienced [...] Neut % (Auto) 67.8, Lymph % (Auto) 21.7,Payette % (Auto) 6.5, Eos % (Auto) 2.9, Baso % (Auto) 1.1, Neut # (Auto) 5.7, Lymph # (Auto) 1.8, Payette# (Auto) 0.5, Eos # (Auto) 0.2, Baso # (Auto) 0.1, Nucleated RBC % (auto) 0.1 Assessment and Plan (1) Thrombocytosis Mild thrombocytosis was most likely reactive, has resolved since. On today's lab her platelet countis completely normal. We will continue to monitor. She will call her PCP regarding her daytime nightmares. (2) Anemia Qualifiers: Iron deficiency anemia type: chronic blood loss Iron deficiency, resolved after Injectafer infusions. I think her iron deficiency is most likely from her menstrual cycles which are heavy for the first couple days. She denies blood in the stools orblack tarry stools. She had EGD and the [...] for coordination of care (as documented) and hoad-ip-snhr counseling of patient and/or family. Dictated By: John Cowan MD DD/ 0937 Signed By: <Electronically signed by John Cowan MD> 03/13/21 0957 [facility] Work Phone: [phone]) 451-150203-19-2021 Progress note Author Cheng Almaguer [facility] November 18, 2020 5:11pmNote Date/TimeMarch 2020 2:[facility] [place] [address] Hem/Onc Follow Up Note - OP Signed with Addenda Patient: Linda Alvarado MR#: [id number] : 1975 Acct:[id number] Age/Sex: 45 / F Type: REG RCR Copies to: MD Gita Navrarete II, PA-C~ ADDENDUM1 I wrote two notes [...] medication include ProAir, Flexeril, Zyrtec, Advair, hydrochlorothiazide, prometha zine,Celexa, Valtrex, Relpax, Cardizem, atorvastatin, modafinil. Laboratory evaluation [...] for coordination of care (as documented) and brgo-eq-cpaz counseling of patient and/or family. Attestation Statement - Physician Attestation cbc, cmp, ferritin, iron, iron sat. Jak2. she will call to discsuss results. f/u with me 1 year. Dictated By: Cheng Almaguer II, DO DD/ 1445 Signed By: <Electronically signed by Cheng Almaguer II, DO> 11/18/20 1506 [facility] Work Phone: [phone]) 716-220003-19-2021 Progress note Author Cheng Almaguer [facility] November 18, 2020 5:10pmNote Date/TimeMarch 2020 5:[facility]pm[facility] [place] [address] Hem/Onc Follow Up Note - OP Signed Patient: Linda Alvarado MR#: [id number] : 1975 Acct:[id number] Age/Sex: 45 / F Type: REG RCR [...] Sodium 137, Potassium 3.6, Chloride 101, Carbon Vopdbuy82.4, BUN 7 L, Creatinine 0.75, Est GFR [...] % (Auto) 70.1, Lymph % (Auto) 22.2, Payette % (Auto) 4.9, Eos % (Auto) 2.0, Baso % (Auto) 0.8, Neut # (Auto) 7.4, Lymph # (Auto) 2.3, Payette # (Auto) 0.5, Eos # (Auto) 0.2, [...] for coordination of care (as documented) and nnuj-th-mrug counseling of patient and/or family. Attestation Statement - Physician Attestation We will give 2 doses of IV Injectafer and follow-up with me in 3 months. Prior to follow-up check CBC, CMP, iron, ferritin, iron binding capacity. Dictated By: Cheng Almaguer II, DO DD/ 1709 Signed By: <Electronically signed by Cheng Almaguer II, DO> 11/18/20 1710 [facility] Work Phone: Evaluation noteNo assessment information available [facility] Work Phone: Evaluation noteNo InformationNort [employer] Other Evaluation note* Diagnosis Wellness examination- Primary [...] metabolism, and development documented in this encounter [facility]* Diagnosis Nevus Benign neoplasm of skin, site unspecified Perioral dermatitis Rosacea documented in this encounter [facility]* Diagnosis Onset Date Resolution Status Cellulitis of left lower leg noneactive [facility] Work Phone: Evaluation note* Diagnosis Onset Date Resolution Status Cellulitis of left lower leg noneactiveDysurianoneactive [facility] Work Phone: Evaluation note* Diagnosis Onset Date Resolution Status Cellulitis of left lower leg noneactiveAbdominal painacuteHypnagogic hallucinationsacuteNarcolepsy and cataplexyacuteOCD (obsessive compulsive disorder)acuteOSA (obstructive sleep apnea)acuteSleep paralysisacute [facility] Work Phone: Evaluation note* Diagnosis Ankle [...] venous (peripheral) insufficiency documented in this encounter [facility]* Diagnosis Bilateral lower leg cellulitis- Primary Encounter for screening mammogram for malignant neoplasm of breast Ankle edema Edema documented in this encounter [facility]* Diagnosis Hypokalemia- Primary Hypopotassemia Peroneal tendinitis, left- Primary Peroneal tendinitis, right Venous insufficiency Unspecified venous (peripheral) insufficiency documented in this encounter [facility]* Diagnosis Peroneal tendinitis, left- Primary Peroneal tendinitis, right Venous insufficiency Unspecified venous (peripheral) insufficiency documented in this encounter [facility]* Diagnosis Encounter for gynecological examination without abnormal finding- Primary Screening for malignant neoplasm of cervix Screening for malignant neoplasm of the cervix Breast cancer screening by mammogram Chronic sinusitis, unspecified location Encounter for gynecological examination (general) (routine) without abnormal findings documented in this encounter [facility]* Diagnosis Peg infection- Primary Candidiasis of unspecified site documented in this encounter [facility]* Diagnosis Left acute otitis media- Primary Unspecified otitis media Hypokalemia Hypopotassemia Vertigo Dizziness and giddiness documented in this encounter [facility]* Diagnosis Left leg cellulitis- Primary Cellulitis and abscess of leg, except foot [facility] Diagnosis Tachycardia Unspecified tachycardia documented in this encounter [facility]* Diagnosis Onset Date Resolution Status Admit Date Hypnagogic hallucinations acuteSept2024 3:28pmNarcolepsy and cataplexyacuteSeptember 2024 3:28pmOSA (obstructive sleep apnea)acuteSept2024 3:28pmSleep paralysisacuteSept2024 3:28pm [facility] Work Phone: Evaluation note* Diagnosis Wellness examination- Primary Screening for malignant neoplasm of colon Impaired fasting glucose Iron deficiency Disorders of iron metabolism Thrombocythemia Essential thrombocythemia Anemia, unspecified type Elevated ALT measurement History of gestational diabetes Personal history of other genital system and obstetric disorders Hypokalemia Hypopotassemia Mixed hyperlipidemia Obstructive sleep apnea Obstructive sleep apnea (adult) (pediatric) Class 2 severe obesity due to excess calories with serious comorbidity and body mass index (BMI) of38.0 to 38.9 in adult Nausea Nausea alone Mood swings Other specified episodic mood disorder Weight gain Other symptoms concerning nutrition, metabolism, and development Irregular menses Irregular menstrual cycle documented in this encounter [facility]* Diagnosis Obstructive sleep apnea Obstructive sleep apnea (adult) (pediatric) Class 2 severe obesity due to excess calories with serious comorbidity and body mass index (BMI) of38.0 to 38.9 in adult documented in [facility] encounter [facility]* Diagnosis Obstructive sleep apnea Obstructive sleep apnea (adult) (pediatric) Class 2 severe obesity due to excess calories with serious comorbidity and body mass index (BMI) of38.0 to 38.9 in adult documented in this encounter [facility] HealthcareHistory general Narrative - Reported* Type Description Date Medical History allergies Medical HistoryasthmaMedical HistoryOCD (obsessive compulsive disorder)Medical HistoryHerpesMedical HistoryOSA -Auto BiPAP with maximum of 14 minimum of 5 with pressure support of 4.Surgical HistoryD&CSurgical HistorycholecystectomySurgical Historycarpal tunnel releaseSurgical HistoryC sectionHospitalization Historysee above [facility] Other History general Narrative - Reported* Type Description Date Medical History allergies Medical HistoryasthmaMedical HistoryOCD (obsessive compulsive disorder)Medical HistoryHerpesMedical HistoryOSA -Auto BiPAP with maximum of 14 minimum of 5 with pressure support of 4.Medical Historysuspected narcolepsy - EDS, clinical cataplexy, inconclusive PSG/MSLTSurgical HistoryD&CSurgical History cholecystectomySurgical Historycarpal tunnel releaseSurgical HistoryC section Hospitalization Historysee above [facility] Other History general Narrative - Reported* Type Description Date Medical History allergies Medical HistoryasthmaMedical HistoryOCD (obsessive compulsive disorder)Medical HistoryHerpesMedical HistoryOSA -Auto BiPAPMedical Historysuspected narcolepsy - EDS, clinical cataplexy, inconclusive PSG/MSLTSurgical HistoryD&CSurgical HistorycholecystectomySurgical Historycarpal tunnel releaseSurgical HistoryC sectionHospitalization Historysee above [facility] Other Reason for referral (narrative)No reason for referral information availableG[facility]be[facility] Hospital Work Phone: Summary Purpose Family History No Family History Records Found Relationship Condition Age at Onset Recorded Date/T loco grandparent Hypertension Unknown Malignant neoplasm of brainUnknownMalignant neoplasm of lungUnknownNot Specified LymphomaUnknownObsessive-compulsive disorderUnknownMyocardial infarctionUnknown HypertensionUnknownsisterObsessive-compulsive disorderUnknownMigraine headache UnknownfatherMyocardial infarctionUnknownHeart diseaseUnknown Relationship Condition Age at Onset Recorded Date/T loco grandparent Hypertension Unknown Malignant neoplasm of brainUnknownMalignant neoplasm of lungUnknownNot Specified LymphomaUnknownObsessive-compulsive disorderUnknownMyocardial infarctionUnknown HypertensionUnknownsisterObsessive-compulsive disorderUnknownMigraine headache UnknownfatherMyocardial infarctionUnknownHeart diseaseUnknownfatherHeart disease UnknownDeceasedUnknowngrandparentDeceasedUnknownNot SpecifiedHeart disease Unknown Relationship Condition Age at Onset Recorded Date/T loco grandparent Hypertension Unknown Malignant neoplasm of brainUnknownMalignant neoplasm of lungUnknownmother LymphomaUnknownObsessive-compulsive disorderUnknownMyocardial infarctionUnknown HypertensionUnknownsisterObsessive-compulsive disorderUnknownMigraine headache UnknownfatherMyocardial infarctionUnknownHeart diseaseUnknownfatherHeart disease UnknownDeceasedUnknowngrandparentDeceasedUnknownmotherHeart diseaseUnknown Relationship Condition Age at Onset Recorded Date/T loco grandparent Hypertension Unknown Malignant neoplasm of brainUnknownMalignant neoplasm of lungUnknownmother LymphomaUnknownObsessive-compulsive disorderUnknownMyocardial infarctionUnknown HypertensionUnknownDeceasedUnknownHeart diseaseUnknownsisterObsessive-compulsive disorderUnknownMigraine headacheUnknownfatherMyocardial infarctionUnknown Advance Directives No Advanced Directives Records Found Advance Directive Response Recorded Date/ Time Advance Directives No June 03, 2017 10:15am Advance Directive Response Recorded Date/ Time Advance Directives No June 03, 2017 9:15am Hospital Course Note MR#: [id number] [facility] Pt. Name: Linda Alvarado Admitted: 07/07/2019 [...] ower leg Chief Complaint Skin irritation poss UTIReason for VisitCellulitis of left lower leg Dysuria Chief Complaint Skin irritation poss UTI narco/osaReason for VisitCellulitis of left lower leg Abdominal pain Hypnagogic hallucinations Narcolepsy and [...] 3:34pm Sleep paralysis October 28, 2024 3:34pm Chief Complaint Admit Date Left leg pain, poss infection December 6:19pm ROBYN/3 MONTHS February 02, 2025 10:14 am Reason for Visit Admit Date Cellulitis of left leg without foot Apri l 2024 6:19pm Hypnagogic hallucinations February 02, 2025 10:14am Narcolepsy and cataplexy February 02, 2025 10:14am ROBYN (obstructive sleep apnea) February 02, 2025 10:14am Sleep paralysis February 02, 2025 10:14 am Chief Complaint Admit Date ROBYN/3 MONTHS May 27, 2025 3:28pm Reason for Visit Admit Date Hypnagogic hallucinations May 3:28pm Narcolepsy and cataplexy May 27, 2025 3:28pm ROBYN (obstructive sleep apnea) May 27, 2025 3:28pm Sleep paralysis May 27, 2025 3:28pm Reason for Referral SpecialtyDiagnoses / ProceduresReferred By ContactReferred To ContactRadiology Diagnoses Ankle edema Abnormal electrocardiogram Procedures Transthoracic Echo (TTE) Complete Gita Garcia PA [address] [facility] [address] [place] [address] [place] [facility] [address] [place] [address] Phone: [phone] Referral IDStatusReasonStart DateExpiration DateVisits RequestedVisits [id number] Perform Procedure Additional Source Comments INFORMATION SOURCE (unrecogn ized section and content) DATE CREATED AUTHOR 03/28/2018 [facility] DATE CREATED AUTHOR AUTHOR'S ORGANIZ ATION 03/29/2018 [facility] DATE CREATED AUTHOR AUTHOR'S ORGANIZ ATION 07/08/2019 [facility] DATE CREATED AUTHOR AUTHOR'S ORGANIZ ATION 04/05/2020 [facility] DATE CREATED AUTHOR AUTHOR'S ORGANIZ ATION 09/19/2021 [facility] [employer] DATE CREATED AUTHOR AUTHOR'S ORGANIZ ATION 06/25/2024 [facility] DATE CREATED AUTHOR AUTHOR'S ORGANIZ ATION 04/22/2025 [facility] DATE CREATED AUTHOR AUTHOR'S ORGANIZ ATION 06/10/2025 [facility] DATE CREATED AUTHOR AUTHOR'S ORGANIZ ATION 07/04/2025 [facility] DATE CREATED AUTHOR AUTHOR'S ORGANIZ ATION 07/15/2025 [facility] REASON FOR VISIT (unrecogniz ed section and content) ReasonCommentsMed Change RequestReasonCommentsMed RefillOndansetronReason CommentsLeg InjuryTinglingLeftReasonCommentsGynecologic ExamLMP 07/28/24 regular, monthly, normal flow, last 5-7 daysBC: none- hx infertilityLast pap 03-27-23 negLast mammogram 2020. PCP placed order to [facility]. Scheduled in October. Denies breast, urinary, or bowel concerns.ReasonCommentsFollow-up2wk l/r pbOrthotic benefitsReasonOnset DateCommentsOA call05/27/2024[facility] called with a critical lab. Potassium is 2.6. Call placed to Rem[facility] Cao CommentsFoot PainB/L foot painReasonCommentsFoot PainB/L PBReasonComments Follow-upReasonCommentsMed RefillHydrochlorothiazideRefill- Advair1 yr f/u Asthma, COPDRX RefillsSORE ON RIGHT LOWER LEGscriptrx changeRefills- AdvairRX Refillrefill Care Teams (unrecognized sec tion and content) Team Status: Inactive Member Role Status Dates Elver Mendenhall II MD Primary Care Provider Active Ethel Swanson ProviderActive Team Status: Active Member Role Status Dates Elver Mendenhall II MD Primary Care Provider Active Team Status: Inactive Member Role Status Dates Elver Mendenhall II MD Primary Care Provider Active Ethel Duckworth ProviderActiveTeam MemberRelationshipSpecialtyStart DateEnd Date Elver Mendenhall MD [address] [place] [address] [place] [address] PCP - GeneralInternal Medicine03/27/23Team MemberRelationshipSpecialtyStart Date End Date Elver Mendenhall MD [address] [place] [address] PCP - GeneralInternal Medicine03/27/23Team MemberRelationshipSpecialtyStart Date End Date Elver Mendenhall MD [address] [place] [address] PCP - GeneralInternal Medicine03/27/23 Team Status: Inactive Member Role Status Dates Elver Mendenhall II MD Primary Care Provider Active Start: December 25, 2023 End: December 24jelly Patterson NP-CAttenrui ProviderActiveStart: December 25, 2023 End: December 25, 2023 Team Status: Inactive Member Role Status Dates Elver Mendenhall II MD Primary Care Provider Active Start: January 09, 2024 End: January 09, 2024Allison Chandler ProviderActiveStart: January 09, 2024 End: January 09, 2024 Team Status: Inactive Member Role Status Dates Elver Mendenhall II MD Primary Care Provider Active Start: January 30, 2024 End: January 29Ethel Wilson ProviderActiveStart: January 30, 2024 End: January 30, 2024 Team Status: Inactive Member Role Status Dates Elver Mendenhall II MD Primary Care Provider Active Start: May 19, 2024 End: May 19Ethel Wilson ProviderActiveStart: May 19, 2024 End: May 19, 2024 Team Status: Inactive Member Role Status Dates Jane Waller MD Attending Provider Active S tart: May 20, 2024 End: May 20, 2024Team MemberRelationshipSpecialtyStart DateEnd Date Elver Mendenhall MD [address] [facility] [address] [place] [address] [facility] [facility]03/27/23Team MemberRelationshipSpecialtyStart Date End Date Elver Mendenhall MD [address] [facility] [address] [place] [address] [facility] Team Status: Active Member Role Status Dates BEAR DhaliwalC Primary Care Provider Active Team Status: Inactive Member Role Status Dates Elver Mendenhall II MD Primary Care Provider Active Start: May 19, 2024 End: May 20edwin Waller MDAttdorothy ProviderActiveStart: May 19, 2024 End: May 20, 2024 Team Status: Active Member Role Status Dates Jane Waller MD Attending Provider, Other Provider Active Start: May 28, 2024 Team Status: Active Member Role Status Dates Galindo Segura DO Attending Provider Active Sta rt: May 31, 2024 End: May 31, 2024ShNNAMDI [place] ProviderActiveStart: May 31, 2024 End: May 31, 2024 Team Status: Inactive Member Role Status Dates Jane Waller MD Attending Provider Active S tart: July 16, 2024 End: July 16, 2024Gita Garcia NP-[facility] ProviderActiveStart: July 16, 2024 End: July 16, 2024Team MemberRelationshipSpecialtyStart DateEnd Date Elver Mendenhall MD [address] [facility] [address] [place] [address] [facility]03/27/23Team MemberRelationshipSpecialtyStart Date End Date Elvre Mendenhall MD [address] [facility] [address] [place] [address] PCP - GeneralInternal Medicine03/27/23Team MemberRelationshipSpecialtyStart Date End Date Elver Mendenhall MD [address] [place] [address] [place] [address] PCP - GeneralInternal Medicine03/27/23Team MemberRelationshipSpecialtyStart Date End Date Elver Mendenhall MD [address] [place] [address] [place] [address] PCP - GeneralInternal Medicine03/27/23Team MemberRelationshipSpecialtyStart Date End Date Elver Mendenhall MD [address] [place] [address] [place] [address] PCP - GeneralInternal Medicine03/27/23Team MemberRelationshipSpecialtyStart Date End Date Elver Mendenhall MD [address] [place] [address] [place] [address] PCP - GeneralInternal Medicine03/27/23Team MemberRelationshipSpecialtyStart Date End Date Elver Mendenhall MD [address] [place] [address] [place] [address] PCP - GeneralInternal Medicine03/27/23Team MemberRelationshipSpecialtyStart Date End Date Elver Mendenhall MD [address] [place] [address] [place] [address] PCP - GeneralInternal Medicine03/27/23 Team Status: Inactive Member Role Status Dates BEAR DhaliwalC Primary Care Provider Active Start: August 03, 2024 End: August 03, 2024Heidi Poppy , DIRECTOR PUBLIC ACNP-BCAttending ProviderActiveStart: August 03, 2024 End: August 03, 2024 Team Status: Inactive Member Role Status Dates Gita Garcia ENGINE EMISSION TECHNICIAN-C Primary Care Provider Active Start: August 22, 2024 End: August 22, 2024Allison Chandler ProviderActiveStart: August 22, 2024 End: August 22, 2024 Team Status: Inactive Member Role Status Dates Gita Garcia ENGINE EMISSION TECHNICIAN-C Primary Care Provider Active Start: October 28, 2024 End: October 28, 2024DaEthel Can ProviderActiveStart: October 28, 2024 End: October 28, 2024 Team Status: Inactive Member Role Status Dates Gita Garcia ENGINE EMISSION TECHNICIAN-C Primary Care Provider Active Start: December 28, 2024 End: December 28, 2024Allison Chandler ProviderActiveStart: December 28, 2024 End: December 28, 2024Team MemberRelationshipSpecialtyStart DateEnd Date Elver Mendenhall MD [address] [facility] [address] [place] [address] PCP - GeneralInternal Medicine03/27/23Team MemberRelationshipSpecialtyStart Date End Date Elver Mendenhall MD [address] [facility] [address] [place] [address] PCP - GeneralInternal Medicine03/27/23 Team Status: Inactive Member Role Status Dates Gita Garcia ENGINE EMISSION TECHNICIAN-C Primary Care Provider Active Start: February 02, 2025 End: February 02, 2025Pekana Bates NPAttending ProviderActiveStart: February 02, 2025 End: February 02, 2025 Team Status: Inactive Member Role Status Dates Gita Garcia ENGINE EMISSION TECHNICIAN-C Primary Care Provider Active Start: May 27, 2025 End: May 27, 2025Pekana Bates NPAttending ProviderActiveStart: May 27, 2025 End: May 27, 2025Team MemberRelationshipSpecialtyStart DateEnd Date Elver Mendenhall MD [address] [facility] [address] [place] [address] PCP - GeneralInternal Medicine03/27/23Team MemberRelationshipSpecialtyStart Date End Date Elver Mendenhall MD [address] [place] [address] [place] [address] PCP - GeneralInternal Medicine03/27/23Team MemberRelationshipSpecialtyStart Date End Date Elver Mendenhall MD [address] [place] [address] [place] [address] PCP - GeneralInternal Medicine03/27/23Team MemberRelationshipSpecialtyStart Date End Date Elver Mendenhall MD [address] [facility] [address] [place] [address] PCP - GeneralInternal Medicine03/27/23 Goals (unrecognized section and content) Goals may be documented in a n alternate section Scheduled Active and Recently Administ ered Medications (unrecognized section and content) Medication Order//01/2025 acetaminophen (TYLENOL) tablet 975 mg (COMPLETED) 975 mg, Oral, ONCE, On Sat04/07/25 at 0330, For 1 dose, Do not exceed 4 grams of acetaminophen in 24hours from all sources * 0311 (Given - Provider: Kimberly Gregory RN) cephALEXin (KEFLEX) capsule 500 mg (COMPLETED) 500 mg, Oral, ONCE, On Sat04/07/25 at 0345, For 1 dose * 0318 (Given - Provider: Kimberly Gregory RN) doxycycline (VIBRAMYCIN) capsule 100 mg (COMPLETED) 100 mg, Oral, ONCE, On Sat04/07/25 at 0345, For 1 dose * 0318 (Given - Provider: Kimberly Gregory RN) naproxen (NAPROSYN) tablet 500 mg (COMPLETED) 500 mg, Oral, ONCE, On Sat04/07/25 at 0330, For 1 dose * 0311 (Given - Provider: Kimberly J Gregory, RN) FOR RECORDS PERTAINING TO PATIENTS WHO ARE [...] BE BASED ON THE PRIMARY CLINICAL RECORDS. [facility] [employer] [facility]. provides no warranty or guarantee of the accuracy or completeness of information in this document.
[2025-08-10 14:16] LABS: Anion Gap 10.2; Blood Urea Nitrogen 14.0 mg/dL (7.0-18.0); Calcium 8.7 mg/dL (8.5-10.1); Carbon Dioxide 34.2 mmol/L (21.0-32.0); Chloride 104 mmol/L (98-107); Estimated GFR (African America >60 (>=60 mL/min/1.73m^2); Estimated GFR (Non-African Ame 56 (>=60 mL/min/1.73m^2); Glucose 124 mg/dL (74-106); Potassium 3.4 mmol/L (3.5-5.1); Sodium 145 mmol/L (136-145)
== END 2025-08-10 13:53 | disposition home or self-care (01) ==
LOC: LAB 13:53
PROVIDERS: PCP Internal Medicine; Visit Provider Physician Assistant
DX: M25.473 Effusion, unspecified ankle (principal)
CPT/HCPCS: 36415; 80048